=== PATIENT | female | born 1970 | race Caucasian/White ===

== ENCOUNTER 2018-03-02 23:51 | Emergency (ER) | payer MEDICARE ==
[2018-03-03] MEDS ORDERED: LORazepam 2 MG/ML VIAL ONE (01:26)
[2018-03-03] MEDS ORDERED: NA CHLORIDE 0.9% 1,000 ML ONE (01:26)
[2018-03-03 01:48] LABS: Absolute Lymphocytes (CBC) 2.4 K/uL (0.7-4.9); Absolute Monocytes 0.5 K/uL (0.1-1.3); Absolute Neutrophil 2.9 K/uL (1.8-8.0); Basophils % 0.8 % (0-1.3); Eosinophils % 1.9 % (0-4.4); Hematocrit 46.8 % (36.0-45.0); Lymphocytes % 39.5 % (15.3-44.8); MCH 30.3 pg (27.0-35.0); MCV 90.5 fL (80-100); MPV 8.5 fL (7.6-11.3); Monocytes % 8.6 % (3.3-12.3); RBC Red Blood Cell Count 5.17 M/uL (3.86-4.86)
[2018-03-03 01:52] LABS: Protime INR 0.99
[2018-03-03 01:56] LABS: Bicarbonate 27 mEq/L (21-31); Glucose Level 97 mg/dL (65-120); Potassium 3.7 mEq/L (3.6-5.0); Sodium Level 135 mEq/L (135-145)
[2018-03-03 02:02] LABS: ALT/SGPT 17 IU/L (10-60); AST/SGOT 20 IU/L (10-42); Albumin 4.9 g/dL (3.2-5.5); Alkaline Phosphatase 78 IU/L (42-121); BUN Blood Urea Nitrogen 13 mg/dL (6-20); Bilirubin Direct 0.1 mg/dL (0-0.2); Bilirubin Total 0.7 mg/dL (0.3-1.2); Protein, Total 8.9 g/dL (6.0-8.3)
[2018-03-03 02:35] LABS: Alcohol Serum/Plasma < 10 mg/dl
--- NOTE | 2018-03-03 02:49 | ER ---
Nurse's Notes [facility] Name: Sadia Mcpherson Age: 47 yrs Sex: Female : 1970 Arrival Date: 03/02/2018 Time: 23:52 Bed 4 Private MD: Lucille Tesfaye Diagnosis: Anxiety disorder, unspecified;Insomnia;Urinary tract infection, site not specified;Hypothyroidism, unspecified Presentation: 03/03 00:07 Presenting complaint: Patient states: "I've been feeling anxious lately and I can't tl2 sleep. They recently took me off of trazodone and switched me to amitriptyline but I've stopped taking most of my medications. I had blood work last week and my TSH is really high even though I've been taking my levothyroxine. Denies pain. Transition of care: patient was not received from another setting of care. Onset of symptoms was February 26, 2018. Risk Assessment: Do you want to hurt yourself or someone else? Patient reports no desire to harm self or others. Initial Sepsis Screen: Does the patient meet any 2 criteria? No. Patient's initial sepsis screen is negative. Does the patient have a suspected source of infection? No. Patient's initial sepsis screen is negative. Care prior to arrival: None. 00:07 Method Of Arrival: Ambulatory tl2 00:07 Acuity: JAYLEN 4 tl2 Triage Assessment: 00:13 General: Appears in no apparent distress. comfortable, Behavior is cooperative, tl2 appropriate for age, anxious. Pain: Denies pain. Neuro: Level of Consciousness is awake, alert, obeys commands, Oriented to person, place, time, situation. Cardiovascular: Denies chest pain. Respiratory: Airway is patent Respiratory effort is even, unlabored, Respiratory pattern is regular, symmetrical. GI: No signs and/or symptoms were reported involving the gastrointestinal system. : No signs and/or symptoms were reported regarding the genitourinary system. Derm: Skin is pink, warm \\T\\ dry. Historical: - Allergies: 00:13 GABAPENTIN; tl2 00:13 Lamictal; tl2 00:13 Sulfa (Sulfonamide Antibiotics); tl2 00:13 Tobramycin; tl2 00:13 Toradol; tl2 00:13 tramadol; tl2 00:13 Wellbutrin; tl2 - Home Meds: 00:13 aspirin 81 mg Oral chew 1 tab once daily [Active]; clonazepam 0.5 mg Oral tab 1 tab 2 tl2 times per day [Active]; Coreg 12.5 mg Oral tab 1 tab 2 times per day [Active]; levothyroxine 25 mcg tab 1 tab once daily [Active]; [place] 5-325 mg Oral tab 1 tab every 4-6 hours [Active]; Seroquel 200 mg Oral tab 1 tab once daily [Active]; Simvastatin Oral [Active]; - PMHx: 00:13 Depression; Hypertension; HYPERTHYROID; Hypothyroidism; Kidney stones; tl2 - Immunization history:: Adult Immunizations up to date. - Social history:: Smoking status: Patient/guardian denies using tobacco. - Ebola Screening: : No symptoms or risks identified at this time. - Family history:: not pertinent. Screenin:16 Abuse screen: Denies threats or abuse. Nutritional screening: No deficits noted. tl2 Tuberculosis screening: No symptoms or risk factors identified. Fall Risk None identified. Assessment: 00:16 General: see triage assessment. tl2 01:51 Reassessment: Patient appears in no apparent distress at this time. No changes from tl2 previously documented assessment. Patient and/or family updated on plan of care and expected duration. Pain level reassessed. Patient is alert, oriented x 3, equal unlabored respirations, skin warm/dry/pink. Awaiting lab results. 03:30 Reassessment: Patient appears in no apparent distress at this time. Patient is alert, aa1 oriented x 3, equal unlabored respirations, skin warm/dry/pink. Discussed d/c \\T\\ f/u instructions with pt \\T\\ family; denies questions or concerns at this time Patient states feeling better. Vital Signs: 00:13 BP 159 / 99; Pulse 76; Resp 18; Temp 97.8; Pulse Ox 99% ; Weight 68.04 kg; Height 5 ft. tl2 4 in. (162.56 cm); Pain 0/10; 01:51 BP 157 / 87; Pulse 74; Resp 18; Pulse Ox 100% on R/A; tl2 03:00 BP 145 / 89; Pulse 82; Resp 16; Pulse Ox 99% on R/A; Pain 0/10; aa1 00:13 Body Mass Index 25.75 (68.04 kg, 162.56 cm) tl2 ED Course: 03/02 23:52 Patient arrived in ED. am2 23:52 Lucille Tesfaye MD is Private Physician. am2 0523 00:06 Denisa Rutledge, SILVIA is Primary Nurse. tl2 00:09 Triage completed. tl2 00:13 Arm band placed on right wrist. tl2 00:16 Jayesh Agarwal MD is Attending Physician. zhang 00:16 Patient has correct armband on for positive identification. Bed in low position. Call tl2 light in reach. Side rails up X 1. Adult w/ patient. 01:51 Inserted saline lock: 20 gauge in left antecubital area, using aseptic technique. Blood mg2 collected. 01:58 Warm blanket given. mg2 02:49 Lucille Tesfaye MD is Referral Physician. [facility] 03:00 No provider procedures requiring assistance completed. IV discontinued, intact, aa1 bleeding controlled, No redness/swelling at site. Pressure dressing applied. Administered Medications: 01:51 Drug: NS 0.9% 1000 ml Route: IV; Rate: 1 bolus; Site: left antecubital; mg2 03:30 Follow up: IV Status: Completed infusion aa1 01:51 Drug: Ativan 1 mg Route: IVP; Site: left antecubital; mg2 03:30 Follow up: Response: No adverse reaction; Anxiety decreased aa1 03:15 Drug: Rocephin - (cefTRIAXone) 1 grams Route: IVPB; Infused Over: 30 mins; Site: left mg2 antecubital; 03:30 Follow up: IV Status: Completed infusion aa1 Outcome: 02:49 Discharge ordered by . zhang 03:00 Discharged to home ambulatory, with family. aa1 03:00 Condition: good 03:00 Discharge instructions given to patient, Instructed on discharge instructions, follow up and referral plans. medication usage, Demonstrated understanding of instructions, follow-up care, medications, Prescriptions given X 2. 03:31 Patient left the ED. aa1 Signatures: Ariella Feldman RN RN aa1 Jayesh Agarwal MD MD cha Knox, Taylor, SILVIA RN tl2 Aurora Alvarado am2 Mohit Morataya RN RN mg2
--- NOTE | 2018-03-03 02:50 | EDPHYS ---
Physician Documentation [facility] Name: Sadia Mcpherson Age: 47 yrs Sex: Female : 1970 Arrival Date: 03/02/2018 Time: 23:52 Bed 4 Private MD: Lucille Tesfaye ED Physician Jayesh Agarwal HPI: 03/03 01:18 This 47 yrs old Female presents to ER via Ambulatory with complaints of cant zhang sleep. 01:18 The patient presents to the emergency department with anxiety. Onset: The zhang symptoms/episode began/occurred 3 day(s) ago. Past psychiatric history: Prior diagnosis: no previous psychiatric diagnosis known. cant sleep, stopped Seroquel abruptly. Associated signs and symptoms: Pertinent positives; anxiety. Onset: The symptoms/episode began/occurred this morning, yesterday. Severity of symptoms: At their worst the symptoms were mild moderate in the emergency department the symptoms have improved mildly, moderately. Historical: - Allergies: 00:13 GABAPENTIN; tl2 00:13 Lamictal; tl2 00:13 Sulfa (Sulfonamide Antibiotics); tl2 00:13 Tobramycin; tl2 00:13 Toradol; tl2 00:13 tramadol; tl2 00:13 Wellbutrin; tl2 - Home Meds: 00:13 aspirin 81 mg Oral chew 1 tab once daily [Active]; clonazepam 0.5 mg Oral tab 1 tab 2 tl2 times per day [Active]; Coreg 12.5 mg Oral tab 1 tab 2 times per day [Active]; levothyroxine 25 mcg tab 1 tab once daily [Active]; [place] 5-325 mg Oral tab 1 tab every 4-6 hours [Active]; Seroquel 200 mg Oral tab 1 tab once daily [Active]; Simvastatin Oral [Active]; - PMHx: 00:13 Depression; Hypertension; HYPERTHYROID; Hypothyroidism; Kidney stones; tl2 - Immunization history:: Adult Immunizations up to date. - Social history:: Smoking status: Patient/guardian denies using tobacco. - Ebola Screening: : No symptoms or risks identified at this time. - Family history:: not pertinent. ROS: 01:18 Constitutional: Negative for fever, chills, and weight loss, Eyes: Negative for injury, zhang pain, redness, and discharge, ENT: Negative for injury, pain, and discharge, Neck: Negative for injury, pain, and swelling, Cardiovascular: Negative for chest pain, palpitations, and edema, Respiratory: Negative for shortness of breath, cough, wheezing, and pleuritic chest pain, Abdomen/GI: Negative for abdominal pain, nausea, vomiting, diarrhea, and constipation, Back: Negative for injury and pain, : Negative for injury, bleeding, discharge, and swelling, MS/Extremity: Negative for injury and deformity, Skin: Negative for injury, rash, and discoloration, Neuro: Negative for headache, weakness, numbness, tingling, and seizure, Allergy/Immunology: Negative for hives, rash, and allergies, Endocrine: Negative for neck swelling, polydipsia, polyuria, polyphagia, and marked weight changes, Hematologic/Lymphatic: Negative for swollen nodes, abnormal bleeding, and unusual bruising. 01:18 Psych: Positive for anxiety. Exam: 01:18 Constitutional: This is a well developed, well nourished patient who is awake, alert, zhang and in no acute distress. Head/Face: Normocephalic, atraumatic. Eyes: Pupils equal round and reactive to light, extra-ocular motions intact. Lids and lashes normal. Conjunctiva and sclera are non-icteric and not injected. Cornea within normal limits. Periorbital areas with no swelling, redness, or edema. ENT: Nares patent. No nasal discharge, no septal abnormalities noted. Tympanic membranes are normal and external auditory canals are clear. Oropharynx with no redness, swelling, or masses, exudates, or evidence of obstruction, uvula midline. Mucous membranes moist. Neck: Trachea midline, no thyromegaly or masses palpated, and no cervical lymphadenopathy. Supple, full range of motion without nuchal rigidity, or vertebral point tenderness. No Meningismus. Chest/axilla: Normal chest wall appearance and motion. Nontender with no deformity. No lesions are appreciated. Cardiovascular: Regular rate and rhythm with a normal S1 and S2. No gallops, murmurs, or rubs. Normal PMI, no JVD. No pulse deficits. Respiratory: Lungs have equal breath sounds bilaterally, clear to auscultation and percussion. No rales, rhonchi or wheezes noted. No increased work of breathing, no retractions or nasal flaring. Abdomen/GI: Soft, non-tender, with normal bowel sounds. No distension or tympany. No guarding or rebound. No evidence of tenderness throughout. Back: No spinal tenderness. No costovertebral tenderness. Full range of motion. Skin: Warm, dry with normal turgor. Normal color with no rashes, no lesions, and no evidence of cellulitis. MS/ Extremity: Pulses equal, no cyanosis. Neurovascular intact. Full, normal range of motion. Neuro: Awake and alert, GCS 15, oriented to person, place, time, and situation. Cranial nerves II-XII grossly intact. Motor strength 5/5 in all extremities. Sensory grossly intact. Cerebellar exam normal. Normal gait. Vital Signs: 00:13 BP 159 / 99; Pulse 76; Resp 18; Temp 97.8; Pulse Ox 99% ; Weight 68.04 kg; Height 5 ft. tl2 4 in. (162.56 cm); Pain 0/10; 01:51 BP 157 / 87; Pulse 74; Resp 18; Pulse Ox 100% on R/A; tl2 03:00 BP 145 / 89; Pulse 82; Resp 16; Pulse Ox 99% on R/A; Pain 0/10; aa1 00:13 Body Mass Index 25.75 (68.04 kg, 162.56 cm) tl2 MDM: 00:16 Patient medically screened. [facility] 02:48 Data reviewed: vital signs, nurses notes, lab test result(s), EKG. [facility] 03/03 01:18 Order name: Acetaminophen [facility] 03/03 01:18 Order name: Basic Metabolic Panel [facility] 03/03 01:18 Order name: CBC with Diff; Complete Time: 02:31 [facility] 03/03 01:18 Order name: ETOH Level [facility] 03/03 01:18 Order name: Hepatic Function [facility] 03/03 01:18 Order name: PT-INR; Complete Time: 02:31 [facility] 03/03 01:18 Order name: Ptt, Activated; Complete Time: 02:31 [facility] 03/03 01:18 Order name: Salicylate; Complete Time: 02:47 [facility] 03/03 01:18 Order name: Urine Drug Screen [facility] 03/03 01:18 Order name: TSH [facility] 03/03 01:18 Order name: Urine Culture [facility] 03/03 02:56 Order name: T4 Free [facility] 03/03 03:15 Order name: Urine Dipstick--Ancillary (enter results) [facility] 03/03 03:15 Order name: Urine --Ancillary (enter results) [facility] 03/03 01:18 Order name: Urine Test (obtain specimen); Complete Time: 03:20 [facility] 03/03 01:18 Order name: EKG; Complete Time: 01:19 [facility] 03/03 01:18 Order name: EKG - Nurse/Tech; Complete Time: 01:51 [facility] 03/03 01:18 Order name: IV Saline Lock; Complete Time: 01:46 [facility] 03/03 01:18 Order name: Labs collected and sent; Complete Time: 01:46 [facility] 03/03 01:18 Order name: Urine Dipstick-Ancillary (obtain specimen); Complete Time: 03:20 [facility] Administered Medications: 01:51 Drug: NS 0.9% 1000 ml Route: IV; Rate: 1 bolus; Site: left antecubital; mg2 03:30 Follow up: IV Status: Completed infusion aa1 01:51 Drug: Ativan 1 mg Route: IVP; Site: left antecubital; mg2 03:30 Follow up: Response: No adverse reaction; Anxiety decreased aa1 03:15 Drug: Rocephin - (cefTRIAXone) 1 grams Route: IVPB; Infused Over: 30 mins; Site: left mg2 antecubital; 03:30 Follow up: IV Status: Completed infusion aa1 Disposition: 03/03/18 02:49 Discharged to Home. Impression: Anxiety disorder, unspecified, Insomnia, Urinary tract infection, site not specified, Hypothyroidism, unspecified. - Condition is Stable. - Discharge Instructions: Panic Attacks, Insomnia, Urinary Tract Infection, Urinary Tract Infection, [id number], Panic Attacks, [id number]. - Prescriptions for Xanax 0.5 mg Oral Tablet - take 1 tablet by ORAL route every 8 hours As needed; 20 tablet. Cipro 250 mg Oral Tablet - take 1 tablet by ORAL route every 12 hours; 14 tablet. - Medication Reconciliation Form, Thank You Letter, Antibiotic Education, Prescription Opioid Use form. - Follow up: Lucille Tesfaye; When: 2 - 3 days; Reason: Recheck today's complaints, Continuance of care, Re-evaluation by your physician. - Problem is new. - Symptoms have improved. Signatures: Dispatcher [employer] EDAriella Rocha RN RN aa1 StefanoJayesh MD MD cha Knox, Taylor RN RN tl2 Mohit Morataya RN RN mg2 Corrections: (The following items were deleted from the chart) 03:05 02:49 03/03/2018 02:49 Discharged to Home. Impression: Anxiety disorder, unspecified; zhang Insomnia. Condition is Stable. Discharge Instructions: Panic Attacks, Panic Attacks, [id number], Insomnia. Prescriptions for Xanax 0.5 mg Oral Tablet - take 1 tablet by ORAL route every 8 hours As needed; 20 tablet. and Forms are Medication Reconciliation Form, Thank You Letter, Antibiotic Education, Prescription Opioid Use. Follow up: Lucille Tesfaye; When: 2 - 3 days; Reason: Recheck today's complaints, Continuance of care, Re-evaluation by your physician. Problem is new. Symptoms have improved. [facility] 03:16 03:05 03/03/2018 02:49 Discharged to Home. Impression: Anxiety disorder, unspecified; zhang Insomnia; Urinary tract infection, site not specified. Condition is Stable. Discharge Instructions: Panic Attacks, Panic Attacks, [id number], Insomnia. Prescriptions for Xanax 0.5 mg Oral Tablet - take 1 tablet by ORAL route every 8 hours As needed; 20 tablet. and Forms are Medication Reconciliation Form, Thank You Letter, Antibiotic Education, Prescription Opioid Use. Follow up: Lucille Tesfaye; When: 2 - 3 days; Reason: Recheck today's complaints, Continuance of care, Re-evaluation by your physician. Problem is new. Symptoms have improved. [facility] 03:31 03:16 03/03/2018 02:49 Discharged to Home. Impression: Anxiety disorder, unspecified; aa1 Insomnia; Urinary tract infection, site not specified; Hypothyroidism, unspecified. Condition is Stable. Discharge Instructions: Panic Attacks, Panic Attacks, [id number], Insomnia, Urinary Tract Infection, Urinary Tract Infection, [id number]. Prescriptions for Xanax 0.5 mg Oral Tablet - take 1 tablet by ORAL route every 8 hours As needed; 20 tablet, Cipro 250 mg Oral Tablet - take 1 tablet by ORAL route every 12 hours; 14 tablet. and Forms are Medication Reconciliation Form, Thank You Letter, Antibiotic Education, Prescription Opioid Use. Follow up: Lucille Tesfaye; When: 2 - 3 days; Reason: Recheck today's complaints, Continuance of care, Re-evaluation by your physician. Problem is new. Symptoms have improved. zhang
[2018-03-03] MEDS ORDERED: CEFTRIAXONE/SWI 1gm 1 GM/10 ML SYR ONE (03:13)
[2018-03-03 03:34] LABS: Barbiturates NEGATIVE; Benzodiazepines NEGATIVE; Cocaine NEGATIVE; METHAMPHETAM NEGATIVE (NEGATIVE); Opiates NEGATIVE; Phencyclidine NEGATIVE; THC Cannibis NEGATIVE
[2018-03-03 04:02] LABS: Urine Blood TRACE (NEG); Urine Glucose NEGATIVE (NEG); Urine Specific Gravity 1.015 (1.005-1.030)
[2018-03-03 04:03] LABS: Urine Protein NEGATIVE (NEG)
--- NOTE | 2018-03-03 10:48 | EKG ---
Test Date: 2018-03-03 Test Time: 01:44:00 Commercial Front Load Driver: MEASUREMENT RESULTS: Intervals: Rate: 75 KS: 144 QRSD: 92 QT: 416 QTc: 464 [place]: P: 68 KS: 144 QRS: 36 T: 58 INTERPRETIVE STATEMENTS: Normal sinus rhythm normal ECG no significant change from previous ECG Electronically Signed On 03-03-18 10:48:19 CDT by Virgil Mendieta
--- NOTE | 2018-03-03 10:48 | EKG ---
Test Date: 2018-03-03 Test Time: 01:46:00 Indian Trader: MEASUREMENT RESULTS: Intervals: Rate: 74 MA: 126 QRSD: 94 QT: 410 QTc: 455 [place]: P: 29 MA: 126 QRS: 35 T: 61 INTERPRETIVE STATEMENTS: Normal sinus rhythm Cannot rule out Anterior infarct, age undetermined Abnormal ECG Compared to ECG 03/03/2018 01:44:00 No significant changes Electronically Signed On 03-03-18 10:47:50 CDT by Virgil Mendieta
== END 2018-03-03 03:31 | disposition home or self-care (01) ==
LOC: ER 23:51
DX: G47.00 Insomnia, unspecified (principal); N39.0 Urinary tract infection, site not specified; E03.9 Hypothyroidism, unspecified; I10 Essential (primary) hypertension; F32.9 Major depressive disorder, single episode, unspecified; Z79.82 Long term (current) use of aspirin; Z88.2 Allergy status to sulfonamides; Z88.3 Allergy status to other anti-infective agents; Z88.5 Allergy status to narcotic agent; Z88.6 Allergy status to analgesic agent; Z88.8 Allergy status to other drugs, medicaments and biological substances
CPT/HCPCS: 36415; 80048; 80076; 80307 ×9; 80320; 80329 ×2; 81003; 81025; 84439; 84443; 85025; 85610; 85730; 87086; 87088; 93005 ×2; 96361; 96374; 96375; 99284; J0696; J7030

== ENCOUNTER 2019-09-19 16:54 | Emergency (ER) | payer MEDICARE ==
--- OUTSIDE RECORDS SUMMARY | 2019-09-19 16:56 | XMS REPORT | Summary of Care ---
:1970 Author Organization [facility] Address [address] [place] [id number] Care Team Providers Name Role Phone Esther Brar Primary Care Provider Reason for Visit Reason Comments Refill Request Encounter Details Date Type Department Care Team Description 05/07/2019 Refill [facility] Esther Brar PA Refill Request - [address] [id number] [place] [address] Allergies Active Allergy Reactions Severity Noted Date Comments Lamotrigine Rash High 04/21/2017 Alexandre Cowart Minocycline Rash 04/21/2017 Sulfa (Sulfonamide Antibiotics) Rash 04/21/2017 Bupropion Swelling 04/21/2017 documented as of this encounter (statuses as of 05/10/2019) Medications Medication Sig Dispensed Refills Start Date End Date Status IBUPROFEN ORAL Take by mouth. 0 Active estradiol 1 mg Take 1 mg by 0 Active tablet mouth daily. levothyroxine 75 mcg 0 09/30/2018 Active tablet progesterone 100 mg 0 10/14/2018 Active capsule QUEtiapine 200 mg 0 10/21/2018 Active tablet QUEtiapine 50 mg 0 10/21/2018 Active tablet traZODONE 50 mg 0 10/02/2018 Active tablet valACYclovir 500 mg 0 09/30/2018 Active tablet chlorhexidine (SCRUB Wash body with 960 mL 0 01/18/2019 Active CHLORHEXIDINE product daily GLUCONATE) 4 % external liquidIndications: Staph skin infection mupirocin 2 % Apply topically 22 g 1 01/18/2019 Active ointmentIndications: TID to affected Staph skin infection skin and to both nares BID x 5 days azithromycin 500 mg Take 2 tablets 4 tablet 0 03/02/2019 Active tabletIndications: by mouth Dysuria, Vaginal weekly. discharge, Abdominal pain, left lower quadrant CARVEDILOL 25 mg TAKE ONE TABLET 60 tablet 0 04/22/2019 Active tabletIndications: BY MOUTH TWICE Essential A DAY hypertension SIMVASTATIN 20 mg TAKE ONE TABLET 30 tablet 0 05/10/2019 Active tabletIndications: BY MOUTH AT Mixed hyperlipidemia BEDTIME simvastatin 20 mg Take 1 tablet 30 tablet 5 10/22/2018 Discontinued tabletIndications: by mouth at 9 Mixed hyperlipidemia bedtime. documented as of this encounter (statuses as of 05/10/2019) Active Problems Problem Noted Date Intramural leiomyoma of uterus 03/07/2019 Overview: 03/04/19 - pelvic US revealed a uterus measuring 8.7 x 4.7 x 5.5 cm, an ES of 3.4 mm and two small fibroids measuring less than 1.1 cm. Ovaries look normal in size and appearance. Cervical high risk human papillomavirus (HPV) DNA test positive 03/02/2019 Overview: 10/28/18 - pap smear normal; HPV 16 positive 12/02/18 - colposcopy normal. ECC benign. 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 documented as of this encounter Last Filed Vital Signs Not on filedocumented in this encounter Plan of Treatment Health Maintenance Due Date Last Done Comments DTaP,Tdap,and Td Vaccines (1 1989 - Tdap) MAMMOGRAM 2010 INFLUENZA VACCINE 2019 Postponed from 06/12/2019 (Patient Refused) PAP SMEAR 10/28/2019 10/28/2018, 04/21/2018 (Previously completed), 10/28/2017 (Previously completed) PNEUMOCOCCAL 0-64 YEARS Aged Out No longer eligible based COMBINED SERIES on patient's age to complete this topic documented as of this encounter Results Not on filedocumented in this encounter Visit Diagnoses Diagnosis Mixed hyperlipidemia documented in this encounter Insurance Payer Benefit Plan / Subscriber ID Effective Phone Address Type Group Dates [place] [employer] MEDICARE [id number] 2015-Prese Medicare Adv HEALTHCARE - COMPLETE nt HMO MANAGED MEDICARE documented as of this encounter
--- OUTSIDE RECORDS SUMMARY | 2019-09-19 16:56 | XMS REPORT ---
:1970 [facility] Address [address] [place] [address] Dr. Moralez [address] [place] [id number] Care Team Providers Name Role Phone Unavailable Unavailable Unavailable Problems This patient has no known problems. Allergies, Adverse Reactions, Alerts This patient has no known allergies or adverse reactions. Medications This patient has no known medications.
--- OUTSIDE RECORDS SUMMARY | 2019-09-19 16:56 | XMS REPORT | Summary of Care ---
:1970 Author Organization [facility] - [facility] Address [address] [place] [address] Care Team Providers Name Role Phone Esther Brar Primary Care Provider Encounter Details Date Type Department Care Team Description 05/24/2019 Orders Only [facility] Doctor Unassigned, No 301 [facility] Name [place] [id number] [address] [place] [phone] Allergies Active Allergy Reactions Severity Noted Date Comments Lamotrigine Rash High 04/21/2017 Alexandre Cowart Minocycline Rash 04/21/2017 Sulfa (Sulfonamide Antibiotics) Rash 04/21/2017 Bupropion Swelling 04/21/2017 documented as of this encounter (statuses as of 05/24/2019) Medications Medication Sig Dispensed Refills Start Date End Date Status IBUPROFEN ORAL Take by mouth. 0 Active estradiol 1 mg tablet Take 1 mg by 0 Active mouth daily. levothyroxine 75 mcg 0 09/30/2018 Active tablet progesterone 100 mg 0 10/14/2018 Active capsule QUEtiapine 200 mg 0 10/21/2018 Active tablet QUEtiapine 50 mg tablet 0 10/21/2018 Active traZODONE 50 mg tablet 0 10/02/2018 Active valACYclovir 500 mg 0 09/30/2018 Active tablet chlorhexidine (SCRUB Wash body with 960 mL 0 01/18/2019 Active CHLORHEXIDINE product daily GLUCONATE) 4 % external liquidIndications: Staph skin infection mupirocin 2 % Apply topically 22 g 1 01/18/2019 Active ointmentIndications: TID to affected Staph skin infection skin and to both nares BID x 5 days azithromycin 500 mg Take 2 tablets by 4 tablet 0 03/02/2019 Active tabletIndications: mouth weekly. Dysuria, Vaginal discharge, Abdominal pain, left lower quadrant CARVEDILOL 25 mg TAKE ONE TABLET 60 tablet 0 04/22/2019 Active tabletIndications: BY MOUTH TWICE A Essential hypertension DAY SIMVASTATIN 20 mg TAKE ONE TABLET 30 tablet 0 05/10/2019 Active tabletIndications: BY MOUTH AT Mixed hyperlipidemia BEDTIME documented as of this encounter (statuses as of 05/24/2019) Active Problems Problem Noted Date Intramural leiomyoma [...] as of this encounter (statuses as of 05/24/2019) Social History Tobacco Use Types Packs/Day Years [...] this topic documented as of this encounter Procedures Procedure Name Priority Date/Time Associated Diagnosis Comments ASSIGNMENT OF BENEFITS Routine 05/24/2019 1:02 PM CDT documented in this encounter Results Not on filedocumented in this encounter Insurance Payer Benefit Plan / Subscriber ID Effective Phone Address Type Group Dates [employer] MEDICARE [id number] 2015-Prese Medicare Adv HEALTHCARE - COMPLETE nt HMO MANAGED MEDICARE documented as of this encounter
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
--- OUTSIDE RECORDS SUMMARY | 2019-09-19 16:57 | XMS REPORT | Summary of Care ---
:1970 Author Organization [facility] Address [address] [place] [address] Care Team Providers Name Role Phone Esther Brar Primary Care Provider Reason for Referral (Routine) Status Reason Specialty Diagnoses / Referred By Referred To Procedures Contact Contact Closed Patient Endocrinology Diagnoses Hypothyroidism, unspecified type Karen Brar Sonia Requested Diabetes & Procedures CONSULT/REFERRAL ENDOCRINOLOGY KULWINDER Morel A Specific Metabolism [facility] [address] [place] [phone] [place], [place] Phone: [phone] Phone: Reason for Visit Reason Comments Referral/consult Encounter Details Date Type Department Care Team Description 06/09/2019 Telephone [facility] Family Esther Brar PA Referral/consult Medicine - [address] [place] [phone] Allergies Active Allergy Reactions Severity Noted Date Comments Lamotrigine Rash High 04/21/2017 Alexandre Supa Minocycline Rash 04/21/2017 Sulfa (Sulfonamide Antibiotics) Rash 04/21/2017 Bupropion Swelling 04/21/2017 documented as of this encounter (statuses as of 06/14/2019) Medications Medication Sig Dispensed Refills Start Date End Date Status IBUPROFEN ORAL Take by mouth. 0 Active estradiol 2 mg tablet Take 1 mg by 0 [...] BID x 5 days metFORMIN 500 mg tablet Take 500 mg by 0 Active mouth 2 (two) times daily with meals. simvastatin 20 mg Take 1 tablet by 30 tablet 5 05/24/2019 Active tabletIndications: mouth at bedtime. Mixed hyperlipidemia carvedilol 25 mg Take 1 tablet by 60 tablet 5 05/24/2019 Active tabletIndications: mouth 2 (two) Essential hypertension times daily. documented as of this encounter (statuses as of 06/14/2019) Active Problems Problem Noted Date Intramural leiomyoma [...] as of this encounter (statuses as of 06/14/2019) Social History Tobacco Use Types Packs/Day Years [...] Tdap) MAMMOGRAM 11/25/2018 11/25/2017, 11/12/2017 INFLUENZA VACCINE (#1) 2019 PAP SMEAR 10/28/2019 10/28/2018, 04/21/2018 (Previously completed), 10/28/2017 (Previously completed) PNEUMOCOCCAL 0-64 YEARS Aged Out No longer eligible based COMBINED SERIES on patient's age to complete this topic documented as of this encounter Results Not on filedocumented in this encounter Visit Diagnoses Diagnosis Hypothyroidism, unspecified type - Primary documented in this encounter Insurance Payer Benefit Plan / Subscriber ID Effective Phone Address Type Group Dates [facility] MEDICARE [id number] 2015-Prese Medicare Adv HEALTHCARE - COMPLETE nt [place] MANAGED MEDICARE documented as of this encounter
--- OUTSIDE RECORDS SUMMARY | 2019-09-19 16:57 | XMS REPORT | Summary of Care ---
:1970 Author Organization [facility] - [facility] Address [address] [place] [address] Care Team Providers Name Role Phone Esther Brar Primary Care Provider Encounter Details Date Type Department Care Team Description 06/10/2019 Orders Only [facility] Doctor Unassigned, No 301 [facility] Name [place] [phone] [place] [phone] Allergies Active Allergy Reactions Severity Noted Date [...] Procedure Name Priority Date/Time Associated Diagnosis Comments REFERRAL- Routine 06/10/2019 12:01 AM CDT REQUEST/RESPONSE documented in this encounter Results Not on filedocumented in this encounter Insurance Payer Benefit Plan / Subscriber ID Effective Phone Address Type Group Dates [employer] MEDICARE [id number] 2015-Prese Medicare Adv HEALTHCARE - COMPLETE nt HMO MANAGED MEDICARE documented as of this encounter
--- OUTSIDE RECORDS SUMMARY | 2019-09-19 16:57 | XMS REPORT | Summary of Care ---
:1970 Author Organization [facility] Address [address] [place] [address] Care Team Providers Name Role Phone Esther Brar Primary Care Provider Reason for Visit Reason Comments Results Encounter Details Date Type Department Care Team Description 05/27/2019 Telephone [facility] Family Medicine Esther Brar PA Results - [address] [address] [place] [address] Allergies Active Allergy Reactions Severity Noted Date Comments Lamotrigine Rash High 04/21/2017 Alexandre Cowart Minocycline Rash 04/21/2017 Sulfa (Sulfonamide Antibiotics) Rash 04/21/2017 Bupropion Swelling 04/21/2017 documented as of this encounter (statuses as of 05/27/2019) Medications Medication Sig Dispensed Refills Start Date [...] as of this encounter (statuses as of 05/27/2019) Active Problems Problem Noted Date Intramural leiomyoma [...] as of this encounter (statuses as of 05/27/2019) Social History Tobacco Use Types Packs/Day Years [...] Address Type Group Dates [employer] MEDICARE [id number] 2015-Prese Medicare Adv HEALTHCARE - COMPLETE nt HMO MANAGED MEDICARE documented as of this encounter
--- OUTSIDE RECORDS SUMMARY | 2019-09-19 16:57 | XMS REPORT | Summary of Care ---
:1970 Author Organization [facility] Address [address] [place] [address] Care Team Providers Name Role Phone Esther Brar Primary Care Provider Reason for Referral (Routine) Status Reason Specialty Diagnoses / Referred By Referred To Procedures Contact Contact New Request Endocrinology Diagnoses Hypothyroidism, unspecified type Esther Brar Diabetes & Procedures CONSULT/REFERRAL ENDOCRINOLOGY KULWINDER Nielsen [address] [address] Reason for Visit Reason Comments Referral/consult Encounter Details Date Type Department Care Team Description 06/09/2019 Telephone [facility] Family Esther Brar PA Referral/consult Medicine - [address] [phone] Allergies Active Allergy Reactions Severity Noted Date Comments Lamotrigine Rash High 04/21/2017 Alexandre Supa Minocycline Rash 04/21/2017 Sulfa (Sulfonamide Antibiotics) Rash 04/21/2017 Bupropion Swelling 04/21/2017 documented as of this encounter (statuses as of 06/10/2019) Medications Medication Sig Dispensed Refills Start Date [...] as of this encounter (statuses as of 06/10/2019) Active Problems Problem Noted Date Intramural leiomyoma [...] as of this encounter (statuses as of 06/10/2019) Social History Tobacco Use Types Packs/Day Years [...] ID Effective Phone Address Type Group Dates [facility] MEDICARE [id number] 2015-Prese Medicare Adv HEALTHCARE - COMPLETE nt [facility] MANAGED MEDICARE documented as of this encounter
--- NOTE | 2019-09-19 18:16 | ER ---
Nurse's Notes [facility] Name: Sadia Mcpherson Age: 49 yrs Sex: Female : 1970 Arrival Date: 09/19/2019 Time: 16:56 Bed 7 Private MD: Diagnosis: Dental caries-pain Presentation: 09/19 16:59 Presenting complaint: Patient states: "I have a really bad toothache on the upper left aj1 side and its kind of been hurting for the past 3 or 4 days and I thought it was from sinus stuff but all the sudden my tooth felt like it was going to explode" Reports pain to left jaw. Transition of care: patient was not received from another setting of care. Onset of symptoms was 2018. Risk Assessment: Do you want to hurt yourself or someone else? Patient reports no desire to harm self or others. Initial Sepsis Screen: Does the patient meet any 2 criteria? No. Patient's initial sepsis screen is negative. Does the patient have a suspected source of infection? Yes: Other: possible infected tooth. Care prior to arrival: None. 16:59 Method Of Arrival: Ambulatory [facility] 16:59 Acuity: JAYLEN 4 aj1 Triage Assessment: 17:02 General: Appears in no apparent distress. uncomfortable, Behavior is calm, cooperative, aj1 appropriate for age. Pain: Complains of pain in left jaw Pain currently is 8 out of 10 on a pain scale. EENT: Reports pain in left jaw. Neuro: Level of Consciousness is awake, alert, obeys commands. Cardiovascular: Patient's skin is warm and dry. Respiratory: Airway is patent Respiratory effort is even, unlabored, Respiratory pattern is regular, symmetrical. 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 aj1 Historical: - Allergies: 17:02 GABAPENTIN; aj1 17:02 Lamictal; aj1 17:02 Sulfa (Sulfonamide Antibiotics); aj1 17:02 Tobramycin; aj1 17:02 Toradol; aj1 17:02 tramadol; aj1 17:02 Wellbutrin; aj1 - Home Meds: 17:02 aspirin 81 mg Oral chew 1 tab once daily [Active]; clonazepam 0.25 mg oral TbDL daily aj1 [Active]; Coreg 12.5 mg Oral tab 1 tab 2 times per day [Active]; levothyroxine 75 mcg oral tab 1 tab once daily [Active]; Seroquel 200 mg Oral tab 1 tab once daily [Active]; Simvastatin Oral [Active]; estradiol 2 mg Oral tab 1 tab once daily [Active]; progesterone micronized oral oral [Active]; - PMHx: 17:02 Depression; Hypertension; HYPERTHYROID; Hypothyroidism; Kidney stones; aj1 - Immunization history:: Flu vaccine is not up to date. - Social history:: Smoking status: Patient/guardian denies using tobacco. - Ebola Screening: : Patient denies travel to an Ebola-affected area in the 21 days before illness onset. - Family history:: not pertinent. Screenin:41 Abuse screen: Denies threats or abuse. Denies injuries from another. Nutritional hb screening: No deficits noted. Tuberculosis screening: No symptoms or risk factors identified. Fall Risk None identified. Assessment: 17:40 General: Appears in no apparent distress. Behavior is calm, cooperative. Pain: Pain hb currently is 8 out of 10 on a pain scale. Neuro: Level of Consciousness is awake, alert, obeys commands, Oriented to person, place, time, situation. Cardiovascular: Capillary refill < 3 seconds Patient's skin is warm and dry. Respiratory: Airway is patent Respiratory effort is even, unlabored, Respiratory pattern is regular, symmetrical. GI: No signs and/or symptoms were reported involving the gastrointestinal system. : No signs and/or symptoms were reported regarding the genitourinary system. EENT: Reports left upper molar pain. Derm: Skin is pink, warm \\T\\ dry. Musculoskeletal: No signs and/or symptoms reported regarding the musculoskeletal system. Vital Signs: 17:02 BP 155 / 96; Pulse 82; Resp 18; Temp 97.9; Pulse Ox 99% on R/A; Weight 90.72 kg (R); aj1 Height 5 ft. 4 in. (162.56 cm) (R); Pain 8/10; 17:02 Body Mass Index 34.33 (90.72 kg, 162.56 cm) aj1 ED Course: 16:56 Patient arrived in ED. as 17:00 Triage completed. aj1 17:02 Arm band placed on Patient placed in waiting room. aj1 17:12 Eric Diego RN is Primary Nurse. jl7 17:12 Jayesh Agarwal MD is Attending Physician. [facility] 17:41 Patient has correct armband on for positive identification. Bed in low position. Call light in reach. Side rails up X 1. 18:11 Irvin Lee DDS is Referral Physician. [facility] 18:44 No provider procedures requiring assistance completed. Patient did not have IV access jl7 during this emergency room visit. Administered Medications: 18:44 Drug: [place] 10 mg-325 mg 1 tabs Route: PO; jl7 18:45 Follow up: Response: Medication administered at discharge. jl7 18:45 Drug: Augmentin 875 mg Route: PO; jl7 18:45 Follow up: Response: Medication administered at discharge. jl7 Outcome: 18:15 Discharge ordered by MD. [facility] 18:44 Discharged to home ambulatory. jl7 18:44 Condition: stable 18:44 Discharge instructions given to patient, family, Instructed on discharge instructions, follow up and referral plans. medication usage, Demonstrated understanding of instructions, follow-up care, medications, Prescriptions given X 2. 18:45 Patient left the ED. jl7 Signatures: Maria Ines Cowart RN RN aj1 Jayesh Agarwal MD MD cha Martinez, Amelia as Calli Lemus RN RN hb Leal, Jahala, RN RN jl7 Corrections: (The following items were deleted from the chart) 18:47 08:43 No provider procedures requiring assistance completed. jl7 jl7 18:47 08:43 Patient did not have IV access during this emergency room visit. jl7 jl7
--- NOTE | 2019-09-19 18:16 | EDPHYS ---
Physician Documentation [facility] Name: Sadia Mcpherson Age: 49 yrs Sex: Female : 1970 Arrival Date: 09/19/2019 Time: 16:56 Bed 7 Private MD: MP Physician Jayesh Agarwal HPI: 09/19 18:07 This 49 yrs old Female presents to ER via Ambulatory with complaints of zhang Toothache. 18:07 The patient presents with pain, swelling. The problem is located in the left cheek and zhang left jaw. Onset: The symptoms/episode began/occurred 3 day(s) ago. Duration: The symptoms are continuous, and are steadily getting worse. Modifying factors: The symptoms are alleviated by nothing, the symptoms are aggravated by chewing. Associated signs and symptoms: The patient has no apparent associated signs or symptoms. Severity of symptoms: At their worst the symptoms were mild. The patient has not experienced similar symptoms in the past. 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 aj1 Historical: - Allergies: 17:02 GABAPENTIN; aj1 17:02 Lamictal; aj1 17:02 Sulfa (Sulfonamide Antibiotics); aj1 17:02 Tobramycin; aj1 17:02 Toradol; aj1 17:02 tramadol; aj1 17:02 Wellbutrin; aj1 - Home Meds: 17:02 aspirin 81 mg Oral chew 1 tab once daily [Active]; clonazepam 0.25 mg oral TbDL daily aj1 [Active]; Coreg 12.5 mg Oral tab 1 tab 2 times per day [Active]; levothyroxine 75 mcg oral tab 1 tab once daily [Active]; Seroquel 200 mg Oral tab 1 tab once daily [Active]; Simvastatin Oral [Active]; estradiol 2 mg Oral tab 1 tab once daily [Active]; progesterone micronized oral oral [Active]; - PMHx: 17:02 Depression; Hypertension; HYPERTHYROID; Hypothyroidism; Kidney stones; aj1 - Immunization history:: Flu vaccine is not up to date. - Social history:: Smoking status: Patient/guardian denies using tobacco. - Ebola Screening: : Patient denies travel to an Ebola-affected area in the 21 days before illness onset. - Family history:: not pertinent. ROS: 18:07 Constitutional: Negative for fever, chills, and weight loss, Eyes: Negative for injury, zhang pain, redness, and discharge, Neck: Negative for injury, pain, and swelling, Cardiovascular: Negative for chest pain, palpitations, and edema, Respiratory: Negative for shortness of breath, cough, wheezing, and pleuritic chest pain, Abdomen/GI: Negative for abdominal pain, nausea, vomiting, diarrhea, and constipation, Back: Negative for injury and pain, : Negative for injury, bleeding, discharge, and swelling, MS/Extremity: Negative for injury and deformity, Skin: Negative for injury, rash, and discoloration, Neuro: Negative for headache, weakness, numbness, tingling, and seizure, Psych: Negative for depression, anxiety, suicide ideation, homicidal ideation, and hallucinations, Allergy/Immunology: Negative for hives, rash, and allergies, Endocrine: Negative for neck swelling, polydipsia, polyuria, polyphagia, and marked weight changes, Hematologic/Lymphatic: Negative for swollen nodes, abnormal bleeding, and unusual bruising. 18:07 ENT: Negative for Gum pain Exam: 18:07 Constitutional: This is a well developed, well nourished patient who is awake, alert, zhang and in no acute distress. Head/Face: Normocephalic, atraumatic. Eyes: Pupils equal round and reactive to light, extra-ocular motions intact. Lids and lashes normal. Conjunctiva and sclera are non-icteric and not injected. Cornea within normal limits. Periorbital areas with no swelling, redness, or edema. Neck: Trachea midline, no thyromegaly or masses palpated, and no cervical lymphadenopathy. Supple, full range of motion without nuchal rigidity, or vertebral point tenderness. No Meningismus. Chest/axilla: Normal chest wall appearance and motion. Nontender with no deformity. No lesions are appreciated. Cardiovascular: Regular rate and rhythm with a normal S1 and S2. No gallops, murmurs, or rubs. Normal PMI, no JVD. No pulse deficits. Respiratory: Lungs have equal breath sounds bilaterally, clear to auscultation and percussion. No rales, rhonchi or wheezes noted. No increased work of breathing, no retractions or nasal flaring. Abdomen/GI: Soft, non-tender, with normal bowel sounds. No distension or tympany. No guarding or rebound. No evidence of tenderness throughout. Back: No spinal tenderness. No costovertebral tenderness. Full range of motion. Skin: Warm, dry with normal turgor. Normal color with no rashes, no lesions, and no evidence of cellulitis. MS/ Extremity: Pulses equal, no cyanosis. Neurovascular intact. Full, normal range of motion. Neuro: Awake and alert, GCS 15, oriented to person, place, time, and situation. Cranial nerves II-XII grossly intact. Motor strength 5/5 in all extremities. Sensory grossly intact. Cerebellar exam normal. Normal gait. Psych: Awake, alert, with orientation to person, place and time. Behavior, mood, and affect are within normal limits. 18:07 ENT: Dental exam: dental caries, fractured teeth are noted, gum swelling, that is mild. Vital Signs: 17:02 BP 155 / 96; Pulse 82; Resp 18; Temp 97.9; Pulse Ox 99% on R/A; Weight 90.72 kg (R); aj1 Height 5 ft. 4 in. (162.56 cm) (R); Pain 8/10; 17:02 Body Mass Index 34.33 (90.72 kg, 162.56 cm) aj1 MDM: 17:12 Patient medically screened. [facility] 18:09 Data reviewed: vital signs, nurses notes. [facility] Administered Medications: 18:44 Drug: [place] 10 mg-325 mg 1 tabs Route: PO; [facility] 18:45 Follow up: Response: Medication administered at discharge. [facility] 18:45 Drug: Augmentin 875 mg Route: PO; [facility] 18:45 Follow up: Response: Medication administered at discharge. [facility] Disposition: 09/19/19 18:15 Discharged to Home. Impression: Dental caries - pain. - Condition is Stable. - Discharge Instructions: Dental Pain, Dental Pain, [id number]. - Prescriptions for Augmentin 875- 125 mg Oral Tablet - take 1 tablet by ORAL route every 12 hours for 10 days; 20 tablet. Tylenol- Codeine #3 300-30 mg Oral Tablet - take 2 tablets by ORAL route every 6 hours As needed; 26 tablet. - Medication Reconciliation Form, Thank You Letter, Antibiotic Education, Prescription Opioid Use form. - Follow up: Private Physician; When: 2 - 3 days; Reason: Recheck today's complaints, Continuance of care, Re-evaluation by your physician. Follow up: Irvin Lee DDS; When: 1 - 2 days; Reason: Recheck today's complaints, Continuance of care, Re-evaluation by your physician. - Problem is new. - Symptoms have improved. Signatures: Maria Ines Cowart, RN RN aj1 Jayesh Agarwal MD MD cha Leal, Jahala, RN RN jl7 Corrections: (The following items were deleted from the chart) 18:45 18:15 09/19/2019 18:15 Discharged to Home. Impression: Dental caries - pain. Condition jl7 is Stable. Forms are Medication Reconciliation Form, Thank You Letter, Antibiotic Education, Prescription Opioid Use. Follow up: Private Physician; When: 2 - 3 days; Reason: Recheck today's complaints, Continuance of care, Re-evaluation by your physician. Follow up: Irvin Lee; When: 1 - 2 days; Reason: Recheck today's complaints, Continuance of care, Re-evaluation by your physician. Problem is new. Symptoms have improved. zhang
[2019-09-19] MEDS ORDERED: HYDROCODONE/APAP 10/325 TAB ONE (18:43)
[2019-09-19] MEDS ORDERED: AMOX/K CLAV 875 MG TAB ONE (18:43)
[2019-09-19 19:18] VITALS: BP 155/96; TEMP 97.9; O2SAT 99
== END 2019-09-19 18:45 | disposition home or self-care (01) ==
LOC: ER 16:54
DX: K02.9 Dental caries, unspecified (principal); Z88.2 Allergy status to sulfonamides; Z88.8 Allergy status to other drugs, medicaments and biological substances; Z88.6 Allergy status to analgesic agent; E03.9 Hypothyroidism, unspecified; F32.9 Major depressive disorder, single episode, unspecified; I10 Essential (primary) hypertension
CPT/HCPCS: 99283

== ENCOUNTER 2020-03-03 12:43 | Emergency (ER) | payer MEDICARE ==
--- OUTSIDE RECORDS SUMMARY | 2020-03-03 12:45 | XMS REPORT ---
:1970 Author Organization [facility] t Address [address] [place] [address] Care Team Providers Name Role Phone [place] EID Attending Clinician Tata ACEVES Attending Clinician Josh Valadez MD Attending Clinician Morales Quintero MD Attending Clinician Problems This patient has no known problems. Allergies, Adverse Reactions, Alerts This patient has no known allergies or adverse reactions. Medications This patient has no known medications. Procedures This patient has no known procedures. Encounters Start End Encounter Admission Attending Care Care Encounter Source Date/Time Date/Time Type Type Clinicians Facility Department ID 2020-02-02 2020-02-02 Telemedici Kingston [facility] [id number] 08:12:15 15:32:51 ne Visit Margie Cheek [id number] [place] [id number] [place] [id number] [address] 2020-01-30 2020-01-30 Telemedici Tata [place] [id number] 08:40:27 14:57:35 ne Visit Yessica Cheek [id number] [place] [id number] [place] [id number] [address] 2020-01-20 2020-01-20 Telephone Nara Valadez [facility] [id number] 00:00:00 00:00:00 [place] [id number] [place] [id number] Professio [id number] [address] 2020-01-18 2020-01-18 Telephone Nara Valadez [facility] [id number] 00:00:00 00:00:00 [place] [id number] [place] [id number] Professio [phone] [address] 2020-01-18 2020-01-18 Refill Nara Valadez [facility] [id number] 00:00:00 00:00:00 [place] [id number] [place] [id number] Professio [id number] [address] 2020-01-17 2020-01-17 Orders LINDA [place] [id number] 00:00:00 00:00:00 Only Yessica MILENA [id number] [facility] [id number] [facility] 2020-01-16 2020-01-16 Telemedici Tata [facility] [id number] 14:56:15 15:11:15 ne Visit Yessica Adia [id number] [place] [id number] [facility] [phone] [address] 2020-01-16 2020-01-16 [facility] [id number] 00:00:00 00:00:00 Pilar Cheek [id number] [place] [id number] [place] [phone] [address] Results This patient has no known results.
--- OUTSIDE RECORDS SUMMARY | 2020-03-03 12:46 | XMS REPORT | Summary of Care ---
:1970 Author Organization [facility] Address [address] [place] [address] Care Team Providers Name Role Phone Morales Brar Primary Care Provider Encounter Details Date Type Department Care Team Description 12/01/2019 Orders Only [facility] Doctor Unassigned, No 301 [facility] Name [place] [phone] [facility] [place] [phone] Allergies Active Allergy Reactions Severity Noted Date Comments Lamotrigine Rash High 04/21/2017 Alexandre Supa Minocycline Rash 04/21/2017 Sulfa (Sulfonamide Antibiotics) Rash 7 Bupropion Swelling 04/21/2017 documented as of this encounter (statuses as of 12/06/2019) Medications Medication Sig Dispensed Refills Start Date End Date Status IBUPROFEN ORAL Take by mouth. 0 Active estradiol 2 mg tablet Take 1 mg by 0 Active mouth daily. progesterone 100 mg 0 10/14/2018 Active capsule QUEtiapine 300 mg 0 10/21/2018 A ctive tablet QUEtiapine 50 mg 0 10/21/2018 Ac tive tablet traZODONE 50 mg tablet 0 10/02/2018 Active [...] 500 mg by 0 Active tablet mouth daily before a meal. Levothyroxine 88 mcg Take by mouth. 0 Active capsule carvediloL 25 mg Take 1 tablet by 180 tablet 1 11/30/2019 Active tabletIndications: mouth 2 (two) Essential hypertension times daily. simvastatin 20 mg Take 1 tablet by 90 tablet 1 11/30/2019 Active tabletIndications: mouth at bedtime. Mixed hyperlipidemia miSOPROStol 200 mcg Take one tablet 2 tablet 0 12/01/2019 Active tabletIndications: night before Menorrhagia with procedure, then irregular cycle take one tablet morning of procedure documented as of this encounter (statuses as of 12/06/2019) Active Problems Problem Noted Date Intramural leiomyoma of uterus 03/07/2019 Overview: 03/04/19 - pelvic US revealed a uterus me asuring 8.7 x 4.7 x 5.5 cm, an ES of 3.4 mm and two small fibroids measuring less th an 1.1 cm. Ovaries look normal in size and appearance. Cervical high risk human papillomavirus (HPV) DNA test positive 03/02/2019 Overview: 10/28/18 - pap smear normal; HPV 16 positive 12/02/18 - colposcopy normal. ECC benign. 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 [place], [place] [address] [phone] Health Maintenance Due Date Last Done Comments DTaP,Tdap,and Td Vaccines 12/21/2019 Postpo donita from (1 - Tdap) 1981 (Refu sed) Breast Cancer Screening 05/12/2020 05/12/2019, 11/25/2017, (MAMMOGRAM) 11/12/2017 PAP SMEAR 11/12/2020 11/12/2019, 10/28/2018, 04/21/2018 (Previously completed), Additional history exists INFLUENZA VACCINE (#1) 2020 Postponed from 06/12/2019 (Refu sed) PNEUMOCOCCAL 0-64 YEARS Aged Out No longe r eligible COMBINED SERIES based on patient 's age to complete this topic documented as of this encounter Procedures Procedure Name Priority Date/Time Associated Diagnosis Comme nts AGREEMENTS AUTHORIZATIONS Routine 12/01/2019 12:01 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
--- OUTSIDE RECORDS SUMMARY | 2020-03-03 12:46 | XMS REPORT | Summary of Care ---
:1970 Author Organization [facility] Address [address] [place] [address] Care Team Providers Name Role Phone Morales Brar Primary Care Provider Reason for Visit Reason Comments Results Encounter Details Date Type Department Care Team Description 12/06/2019 Telephone [facility] Family Medicine Esther Dior PA Results - [place] [address] [address] [facility] [address] [place] [address] [place] [address] [phone] Allergies Active Allergy Reactions Severity Noted Date [...] 12/08/2019 Office Visit Obstetrics & Gynecology Josy Valdaez MD [address] [place] [address] [address] [place] [address] [phone] Health Maintenance Due Date Last Done Comments [...] Phone Address T ype Group Dates [facility] [id number] 2019-Yessi rodgers [facility] documented as of this encounter
--- OUTSIDE RECORDS SUMMARY | 2020-03-03 12:46 | XMS REPORT | Summary of Care ---
:1970 Author Organization [facility] Address [address] [place] [address] Care Team Providers Name Role Phone Morales Brar Primary Care Provider Reason for Visit Reason Comments Refill Request Encounter Details Date Type Department Care Team Description 11/26/2019 Refill [facility] Family Medicine Esther Dior PA Refill Request - [address] [place] [address] [place] [address] [phone] Allergies Active Allergy Reactions Severity Noted Date Comments Lamotrigine Rash High 04/21/2017 Alexandre Cowart Minocycline Rash 04/21/2017 Sulfa (Sulfonamide Antibiotics) Rash 7 Bupropion Swelling 04/21/2017 documented as of this encounter (statuses as of 12/05/2019) Medications Medication Sig Dispensed Refills Start Date End Date Status IBUPROFEN ORAL Take by mouth. 0 Active estradiol 2 mg tablet Take 1 mg by mouth 0 Active daily. progesterone 100 mg 0 10/14/2018 Active [...] Active tablet mouth daily before a meal. documented as of this encounter (statuses as of 12/05/2019) Active Problems Problem Noted Date Intramural leiomyoma [...] as of this encounter (statuses as of 12/05/2019) Social History Tobacco Use Types Packs/Day Years [...] Visit Obstetrics & Gynecology Josy Valadez MD [address] [place] [address] [address] [place] [address] [phone] Health Maintenance Due Date Last Done Comments [...] filedocumented in this encounter Visit Diagnoses Diagnosis Essential hypertension Unspecified essential hypertension documented in this encounter Insurance Payer Benefit Plan / Subscriber ID Effective Phone Address T e Group Dates [facility] [id number] 2019-Yessi rodgers [facility] - MEDICARE nt HMO MANAGED MEDICARE ADVANTAGE documented as of this encounter
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
--- OUTSIDE RECORDS SUMMARY | 2020-03-03 12:47 | XMS REPORT | Summary of Care ---
:1970 Author Organization [facility] Address [address] [place] [address] Care Team Providers Name Role Phone Morales Brar Primary Care Provider Reason for Visit Reason Comments Procedure EMBX Encounter Details Date Type Department Care Team Description 12/08/2019 Office Visit [facility] Women's Nara Valadez MD Menorrhagia with Healthcare- [address] irregular cycle [address] [place], [place] [address]DR. (Primary Dx) [address] [place], [place] [phone] Allergies Active Allergy Reactions Severity Noted Date Comments Lamotrigine Rash High 04/21/2017 Alexandre Cowart Minocycline Rash 04/21/2017 Sulfa (Sulfonamide Antibiotics) Rash 7 Bupropion Swelling 04/21/2017 documented as of this encounter (statuses as of 12/09/2019) Medications Medication Sig Dispensed Refills Start End [...] as of this encounter (statuses as of 12/09/2019) Active Problems Problem Noted Date Menorrhagia with irregular cycle 12/09/2019 Obesity (BMI 30-39.9) 12/08/2019 Intramural leiomyoma of uterus 03/07/2019 Overview: 03/04/19 [...] as of this encounter (statuses as of 12/09/2019) Social History Tobacco Use Types Packs/Day Years [...] Sign Reading Time Taken Comments Blood Pressure 120/77 12/08/2019 1:35 PM EDISCOVERY 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 Pulse 74 12/08/2019 1:35 PM EDISCOVERY PROJECT MANAGER Temperature 36.7 C (98.1 F) 12/08/2019 1:35 PM EDISCOVERY PROJECT MANAGER Respiratory Rate 20 12/08/2019 1:30 PM EDISCOVERY PROJECT MANAGER Oxygen Saturation - - Inhaled Oxygen Concentration - - Weight 98.4 kg (217 lb) 12/08/2019 1:30 PM EDISCOVERY PROJECT MANAGER Height 160 cm (5' 3") 12/08/2019 1:30 PM EDISCOVERY PROJECT MANAGER Body Mass Index 38.44 12/08/2019 1:30 PM EDISCOVERY PROJECT MANAGER documented in this encounter Progress Notes Nara Valadez MD - 12/08/2019 1:00 PM CSTENDOMETRIAL BIOPSY PROCEDURE NOTE Preoperative Diagnoses: Sadia Mcpherson is a 49 year old female with heavy irregular menses The risks, benefits and alternatives were discussed. The patient voiced her understanding. She wished to proceed and an informed consent was obtained. Patient has been identified by name and and will be undergoing a endometrial biopsy. Patient, procedure and site have been confirmed by the following clinicians: Nara Valadez. Timeout performed by Nara Valadez Procedure:The patient is placed on the exam table in a dorsal lithotomy position. A speculum placed in vagina with good visualization of cervix; cervix swabbed with Betadine solution. Single tooth tenaculum placed on the anterior lip of the cervix. Endometrial sampling achieved with Pipelle samplingunit with 1 pass. Tissue collected, labeled and sent to Pathology. Instruments removed, hemostasis achieved. The patient tolerated the procedure well and there were no complications. Findings Uterus sounded to 8 cm Tissue amount collected: normal Nara Valadez MD #[id number] 12/09/2019 12:08 PM documented in this encounter Plan of Treatment Date Type Specialty Care Team Description 12/14/2019 Office Visit Obstetrics & Gynecology Yessica Payton PA-C [address] [phone] 12/14/2019 Appointment Radiology Yessica Payton PA-C [address], [place] [phone] Name Type Priority Associated Diagnoses Date/Ti me SURGICAL PATHOLOGY EXAM LAB Routine Menorrhagia with 12/08/2019 1:53 PM EDISCOVERY PROJECT MANAGER irregular cycle Name Type Priority Associated Diagnoses Order S chedule SURGICAL PATHOLOGY EXAM LAB Routine Menorrhagia with Expected: 12/08/2019, irregular cycle Expires: Health Maintenance Due Date Last Done Comments [...] Name Priority Date/Time Associated Diagnosis Comme nts POCT TEST Routine 12/08/2019 Menorrhagia with Resu lts for this irregular cycle procedure ar e in the results section . documented in this encounter Results POCT TEST (12/08/2019) Pathologist Sig nature POCT PREG Negative On board controls acceptable Yes with C Line POCT PREG LOT # POCT PREG TEST DATE Specimen Urine - URINE, CLEAN CATCH documented in this encounter Visit Diagnoses Diagnosis Menorrhagia with irregular cycle - Prima ry Excessive or frequent menstruation documented in this encounter Insurance Payer Benefit Plan / Subscriber ID Effective Phone Address T ype Group Dates [facility] [id number] 2019-Prese dicare [facility] HEALTHCARE - MEDICARE nt HMO MANAGED MEDICARE ADVANTAGE documented as of this encounter
--- OUTSIDE RECORDS SUMMARY | 2020-03-03 12:47 | XMS REPORT | Summary of Care ---
:1970 Author Organization [facility] Address [address] [place] [address] Care Team Providers Name Role Phone Morales Brar Primary Care Provider Reason for Visit Reason Comments Procedure EMBX Encounter Details Date Type Department Care Team Description 12/08/2019 Office Visit [facility] Women's Nara Valadez MD Menorrhagia with Healthcare- [address] irregular cycle [address] [place], [place] [address] (Primary Dx) [address] [place], [place] [phone] Allergies Active Allergy Reactions Severity Noted Date [...] Comments Blood Pressure 120/77 12/08/2019 1:35 PM ACTUARIAL MATHEMATICIAN Pulse 74 12/08/2019 1:35 PM ACTUARIAL MATHEMATICIAN Temperature 36.7 C (98.1 F) 12/08/2019 1:35 PM ACTUARIAL MATHEMATICIAN Respiratory Rate 20 12/08/2019 1:30 PM ACTUARIAL MATHEMATICIAN Oxygen Saturation - - Inhaled Oxygen Concentration - - Weight 98.4 kg (217 lb) 12/08/2019 1:30 PM ACTUARIAL MATHEMATICIAN Height 160 cm (5' 3") 12/08/2019 1:30 PM ACTUARIAL MATHEMATICIAN Body Mass Index 38.44 12/08/2019 1:30 PM ACTUARIAL MATHEMATICIAN documented in this encounter Progress Notes Nara [...] Tissue amount collected: normal Nara Valadez MD #[id number] 12/09/2019 12:08 PM documented in this encounter Plan of Treatment Date Type Specialty Care Team Description 12/14/2019 Office Visit Obstetrics & Gynecology Yessica Payton PA-C [address] [phone] 12/14/2019 Appointment Radiology Yessica Payton PA-C [address], [place] [phone] Name Type Priority Associated Diagnoses Date/Ti me SURGICAL PATHOLOGY EXAM LAB Routine Menorrhagia with 12/08/2019 1:53 PM ACTUARIAL MATHEMATICIAN irregular cycle Name Type Priority Associated Diagnoses [...] Effective Phone Address T ype Group Dates [facility] [id number] 2019-Prese dicare [facility] HEALTHCARE - MEDICARE nt HMO MANAGED MEDICARE ADVANTAGE documented as of this encounter
--- OUTSIDE RECORDS SUMMARY | 2020-03-03 12:48 | XMS REPORT | Summary of Care ---
:1970 Author Organization [facility] Address [address] [place] [address] Care Team Providers Name Role Phone Morales Brar Primary Care Provider Reason for Visit Reason Comments Results Encounter Details Date Type Department Care Team Description 12/14/2019 Office Visit [facility] Women's Tata Yessica Eli rrhagia with irregular cycle (Primary Dx); [facility] PAMiky Initiation of OCP (BCP) [address], [address] [facility] 208 [address] [place], [place] [phone] [address] Allergies Active Allergy Reactions Severity Noted Date Comments Lamotrigine Rash High 04/21/2017 Alexandre Cowart Minocycline Rash 04/21/2017 Sulfa (Sulfonamide Antibiotics) Rash 7 Bupropion Swelling 04/21/2017 documented as of this encounter (statuses as of 12/14/2019) Medications Medication Sig Dispensed Refills Start Date End Date Status IBUPROFEN ORAL Take by 0 Activ e mouth. QUEtiapine 300 mg 0 10/21/2018 A ctive tablet QUEtiapine 50 mg 0 10/21/2018 Ac tive tablet traZODONE 50 mg 0 10/02/2018 Act susanna tablet valACYclovir 500 mg 0 09/30/2018 Active tablet chlorhexidine (SCRUB Wash body with 960 mL 0 01/18/2019 Active CHLORHEXIDINE product daily GLUCONATE) 4 % external liquidIndications: Staph skin infection mupirocin 2 % Apply 22 g 1 01/18/2019 Activ e ointmentIndications: topically TID Staph skin infection to affected skin and to both nares BID x 5 days metFORMIN 500 mg Take 500 mg by 0 Active tablet mouth daily before a meal. Levothyroxine 88 mcg Take by 0 Active capsule mouth. carvediloL 25 mg Take 1 tablet 180 tablet 1 11/30/2019 Active tabletIndications: by mouth 2 Essential (two) times hypertension daily. simvastatin 20 mg Take 1 tablet 90 tablet 1 11/30/2019 Active tabletIndications: by mouth at Mixed hyperlipidemia bedtime. LOESTRIN FE 1 mg-20 Take 1 tablet 1 Package 2 12/14/2019 Active mcg (21)/75 mg (7) by mouth tabletIndications: daily. Initiation of OCP (BCP) estradiol 2 mg Take 1 mg by 0 Di scontinued tablet mouth daily. 0 progesterone 100 mg 0 10/14/2018 Discontinued capsule 0 documented as of this encounter (statuses as of 12/14/2019) Active Problems Problem Noted Date Menorrhagia with [...] Sign Reading Time Taken Comments Blood Pressure 136/83 12/14/2019 12:02 PM VENEER SORTER Pulse - - Temperature 36.8 C (98.3 F) 12/14/2019 11:38 AM VENEER SORTER Respiratory Rate 18 12/14/2019 11:38 AM VENEER SORTER Oxygen Saturation - - Inhaled Oxygen Concentration - - Weight 98.8 kg (217 lb 12.8 oz) 12/14/2019 11:38 AM VENEER SORTER Height 162.6 cm (5' 4") 12/14/2019 11:38 AM VENEER SORTER Body Mass Index 37.39 12/14/2019 11:38 AM VENEER SORTER documented in this encounter Progress Notes Yessica Payton PA-C - 12/14/2019 11:15 AM CST Chief complaint: Chief Complaint Patient presents with Results HPI Sadia Mcpherson is a 49 year old female coming in to follow up on EMBX and pap results. Patient was concerned about irregular heavy menses. She has no complaints and reports is doing well.Patient denies any abnormal/pelvic pain, discharge, dysuria, hematuria, abnormal bleeding currently.Patient reports she is spotting now. Patient has been taking progesterone and estradiol and states it is not regulate her menses anymore. Histories OB History Para Term AB Living 0 0 0 0 0 0 SAB TAB Ectopic Multiple Live Births 0 0 0 0 0 Past Medical History: Diagnosis Date Abnormal uterine bleeding Anemia Anxiety Cervical high risk human papillomavirus (HPV) DNA test positive 03/02/2019 Depression Endometriosis Female infertility Genital herpes Hormone disorder Hypertension Insomnia Kidney disease kidney stones several times Leiomyoma of uterus Prediabetes Staph skin infection Thyroid disease Trauma CVA [...] file Gets together: Not on file Attends mandaen service: Not on file Active member of [...] Partners: Male control/protection: None Labs none Radiology None Allergies Sadia is allergic to lamictal [lamotrigine]; minocycline; sulfa (sulfonamide antibiotics); and wellbutrin [bupropion]. Medications aSdia has a current medication list which includes the following prescription(s): loestrin fe, carvedilol, levothyroxine, simvastatin, metformin, chlorhexidine, mupirocin, quetiapine, quetiapine, trazodone, valacyclovir, and ibuprofen. Review of Systems Constitutional: Negative for appetite change, fatigue and fever. HENT: Negative for rhinorrhea and sore throat. [...] is not nervous/anxious. Endocrine: Negative for hair loss. Temp 36.8 C (98.3 F) (Oral) | Resp 18 | Ht 5' 4" (1.626 m) | Wt 217 lb 12.8 oz (98.8 kg) | BMI 37.39 kg/m Pregravid BMI: Could not be calculated Physical Exam Vitals reviewed. Constitutional: She is oriented to person, place, and time. Her body habitus is obese. Neck: No mass. No thyromegaly palpated. No neck adenopathy. Cardiovascular: Regular rate and rhythm. Pulmonary/Chest: Normal inspiratory effort. Abdominal: Abdomen is soft. No tenderness present. No hernia palpated or inspected. Neuro/Psychiatric: She has a normal mood and affect. She is oriented to person, place, and time. Skin: Skin normal. Lymphadenopathy: No neck adenopathy present. No axillary adenopathy present. No inguinal adenopathy present. Assessment/Plan Menorrhagia with irregular cycle (primary encounter diagnosis) Follow-up in 3 months Reviewed pap results-NIL, no HPV detected. EMBX: benign. A. ENDOMETRIUM, CURETTAGE: - EXHAUSTED SECRETORY ENDOMETRIUM WITH STROMAL BREAKDOWN CONSISTENT WITH MENSTRUAL PHASE Initiation of OCP (BCP) Plan: LOESTRIN FE 1 mg-20 mcg (21)/75 mg (7) tablet Patient denies self or family history of thromboembolic disease or thrombophilia, migraine headache. I counseled patient regarding use of oral contraceptives. There are combined oral contraceptive, which has both estrogen and progestin, and there is progestin only oral contraceptive. With typical us e, 9 out 100 women get in the first year and with perfect use 0.3 out of 100 women get in the first year according to ACOG Practice Bulletin. Risks include but not limited to increase risk of thromboembolic disease, headache, weight gain, mood lability, and breast cancer. Decrease risks of ovarian cancer, colon cancer, and endometrial cancer. Oral contraceptive may decrease milk supply. Alternatives reviewed include patch, ring, Depo-Provera, Nexplanon, and IUD. Advise using condoms for STDs prevention. Return to clinic in 12 weeks. Discussed treatment options. Medications as ordered. Reviewed patient instructions and provided printed copy. This visit did not involve counseling and coordination that comprised more than 50% of the visit time. Yessica Payton PA-C 12/14/2019 11:58 AM ER SORTER documented in this encounter Plan of Treatment Date Type Specialty Care Team Description 12/14/2019 Appointment Radiology Yessica Payton PA-C [address] [place] [phone] 03/15/2020 Office Visit Obstetrics & Gynecology Yessica Payton PA-C [address] [phone] Health Maintenance Due Date Last Done Comments [...] Associated Diagnosis Comme nts POCT TEST Routine 12/14/2019 Initiation of OCP (BC P) Results for this procedure are i n the results section . documented in this encounter Results POCT TEST (12/14/2019) Pathologist Sig nature POCT PREG Negative On board controls acceptable Yes with C Line POCT PREG LOT # POCT PREG TEST DATE Specimen Urine - URINE, CLEAN CATCH documented in this encounter Visit Diagnoses Diagnosis Menorrhagia with irregular cycle - Prima ry Excessive or frequent menstruation Initiation of OCP (BCP) General counseling for prescription of o ral contraceptives documented in this encounter Insurance Payer Benefit Plan / Subscriber ID Effective Phone Address T ype Group Dates [facility] [id number] 2019-Yessi rodgers [facility] HEALTHC[facility] - MEDICARE [facility]ED MEDICARE ADVANTAGE documented as of this encounter
--- OUTSIDE RECORDS SUMMARY | 2020-03-03 12:48 | XMS REPORT | Summary of Care ---
:1970 Author Organization [facility] Address [address] [place] [address] Care Team Providers Name Role Phone Morales Brar Primary Care Provider Reason for Visit Reason Comments Results Encounter Details Date Type Department Care Team Description 12/14/2019 Office Visit [facility] Women's Tata Yessica Eli rrhagia with irregular cycle (Primary Dx); [facility] PAMiky Initiation of OCP (BCP) [address], [address] [facility] 208 [address] [place], [place] [phone] Allergies Active Allergy Reactions Severity Noted [...] Comments Blood Pressure 136/83 12/14/2019 12:02 PM LOAD DROPPER Pulse - - Temperature 36.8 C (98.3 F) 12/14/2019 11:38 AM LOAD DROPPER Respiratory Rate 18 12/14/2019 11:38 AM LOAD DROPPER Oxygen Saturation - - Inhaled Oxygen Concentration - - Weight 98.8 kg (217 lb 12.8 oz) 12/14/2019 11:38 AM LOAD DROPPER Height 162.6 cm (5' 4") 12/14/2019 11:38 AM LOAD DROPPER Body Mass Index 37.39 12/14/2019 11:38 AM LOAD DROPPER documented in this encounter Progress Notes Yessica [...] file Gets together: Not on file Attends protestant service: Not on file Active member of [...] time. Yessica Payton PA-C 12/14/2019 11:58 AM DROPPER documented in this encounter Plan of Treatment Date Type Specialty Care Team Description 12/14/2019 Appointment Radiology Yessica Payton PA-C [address] [place] [phone] 03/15/2020 Office Visit Obstetrics & Gynecology Yessica Payton PA-C [address] [phone] Health Maintenance Due Date [...] Effective Phone Address T ype Group Dates [facility] [id number] 2019-Yessi rodgers [facility] HEALTHCARE - [facility]IC[facility]IC[facility] ADVANTAGE documented as of this encounter
--- OUTSIDE RECORDS SUMMARY | 2020-03-03 12:48 | XMS REPORT | Summary of Care ---
:1970 Author Organization [facility] Address [address] [place] [address] Care Team Providers Name Role Phone Morales Brar Primary Care Provider Reason for Visit Reason Comments TEST RESULTS Pap Negative / HPV Negative Encounter Details Date Type Department Care Team Description 12/13/2019 Telephone [facility] Women's Yessica Payton, TEST RESULTS ([facility] [place] PA-C Negative / HPV [address] [facility], [address] [place] [address]) [address] [facility] 208 [address] [place], [place] [phone] Allergies Active Allergy Reactions Severity Noted Date Comments Lamotrigine Rash High 04/21/2017 Alexandre Cowart Minocycline Rash 04/21/2017 Sulfa (Sulfonamide Antibiotics) Rash 7 Bupropion Swelling 04/21/2017 documented as of this encounter (statuses as of 12/14/2019) Medications Medication Sig Dispensed Refills Start Date End Date Status IBUPROFEN ORAL Take by mouth. 0 Active QUEtiapine 300 mg 0 10/21/2018 A ctive [...] Active tabletIndications: mouth at bedtime. Mixed hyperlipidemia documented as of this encounter (statuses as [...] Treatment Date Type Specialty Care Team Description 03/15/2020 Office Visit Obstetrics & Gynecology Yessica Payton PA-C [address] [place] [phone] Health Maintenance Due Date Last Done [...] Effective Phone Address T ype Group Dates [facility] [id number] 2019-Yessi rodgers [facility] documented as of this encounter
--- OUTSIDE RECORDS SUMMARY | 2020-03-03 12:49 | XMS REPORT | Summary of Care ---
:1970 Author Organization [facility] Address [address] [place] [address] Care Team Providers Name Role Phone Morales Brar Primary Care Provider Reason for Referral Radiology Services (Routine) Status Reason Specialty Diagnoses / Referred By Referred To Procedures Contact Contact New Request Diagnostic Diagnoses Mammogram abnormal [place], Radiology Procedures BI ULTRASOUND BREAST COMPLETE RIGHT KETAN Juan [address] [place] [phone] Reason for Visit Reason Comments Imaging Encounter Details Date Type Department Care Team Description 12/14/2019 Case Management [facility] Women's Charlene Payton PA-C Imaging [facility]- [address] 208 [place] [phone] Allergies Active Allergy Reactions Severity Noted [...] Active tabletIndications: mouth at bedtime. Mixed hyperlipidemia LOESTRIN FE 1 mg-20 Take 1 tablet by 1 Package 2 12/14/2019 Active mcg (21)/75 mg (7) mouth daily. tabletIndications: Initiation of OCP (BCP) documented as of this encounter (statuses as [...] Visit Obstetrics & Gynecology Yessica Payton PA-C [facility] [place] [phone] Name Type Priority Associated Diagnoses Order S chedule BI ULTRASOUND BREAST IMAGING Routine Mammogram abnormal E xpected: 12/14/2019, COMPLETE RIGHT Expires: 01/2021 Health Maintenance Due Date Last Done Comments [...] filedocumented in this encounter Visit Diagnoses Diagnosis Mammogram abnormal - Primary Abnormal mammogram, unspecified documented in this encounter Insurance Payer Benefit Plan / Subscriber ID Effective Phone Address T ype Group Dates [facility] [id number] 2019-Yessi rodgers Count Includes [facility] HEALTHCARE - MEDICARE nt HMO MANAGED MEDICARE ADVANTAGE documented as of this encounter
--- OUTSIDE RECORDS SUMMARY | 2020-03-03 12:49 | XMS REPORT | Summary of Care ---
:1970 Author Organization [facility] Address [address] [place] [address] Care Team Providers Name Role Phone Morales Quintero MD Primary Care Provider Encounter Details Date Type Department Care Team Description 12/22/2019 Orders Only [facility] Doctor Unassigned, No [address] [facility] [place] [address] [address] [place] [address] Allergies Active Allergy Reactions Severity Noted Date Comments Lamotrigine Rash High 04/21/2017 Alexandre Cowart Minocycline Rash 04/21/2017 Sulfa (Sulfonamide Antibiotics) Rash 7 Bupropion Swelling 04/21/2017 documented as of this encounter (statuses as of 12/22/2019) Medications Medication Sig Dispensed Refills Start Date [...] as of this encounter (statuses as of 12/22/2019) Active Problems Problem Noted Date Menorrhagia with [...] as of this encounter (statuses as of 12/22/2019) Social History Tobacco Use Types Packs/Day Years [...] Treatment Date Type Specialty Care Team Description 12/22/2019 Appointment Radiology Yessica Payton PA-C [address] [place] [phone] 12/22/2019 Office Visit Family Medicine Esther Brar PA [address] [facility] [place], [place] [phone] 03/15/2020 Office Visit Obstetrics & Gynecology Yessica Payton PA-C 146 [facility] [address] [place], [place] [phone] Health Maintenance Due Date Last Done Comments DTaP,Tdap,and Td Vaccines 1981 (1 - Tdap) PAP SMEAR 11/12/2020 11/12/2019, 10/28/2018, 04/21/2018 (Previously completed), Additional history exists INFLUENZA VACCINE (#1) 2020 Postponed from 06/12/2019 (Refu sed) Breast Cancer Screening 12/13/2020 12/14/2019, 05/12/2019, (MAMMOGRAM) 11/25/2017, Additional history exists PNEUMOCOCCAL 0-64 YEARS Aged Out No longe r eligible COMBINED SERIES based on patient 's age to complete this topic documented as of this encounter Procedures Procedure Name Priority Date/Time Associated Diagnosis Comme nts ASSIGNMENT OF BENEFITS Routine 12/22/2019 1:49 PM CDT documented in this encounter Results Not on filedocumented in this encounter Insurance Payer Benefit Plan / Subscriber ID Effective Phone Address T ype Group Dates [facility] [id number] 2019-Yessi rodgers [facility] - MEDICARE nt O MANAGED MEDICARE ADVANTAGE documented as of this encounter
--- OUTSIDE RECORDS SUMMARY | 2020-03-03 12:49 | XMS REPORT | Summary of Care ---
:1970 Author Organization [facility] Address [address] [place] [address] Care Team Providers Name Role Phone Morales Brar Primary Care Provider Reason for Referral Radiology Services (Routine) Status Reason Specialty Diagnoses / Referred By Referred To Procedures Contact Contact Closed Diagnostic Diagnoses Encounter for screening mammogram for malignant neoplasm of breast Screening breast examination Yessica Payton, Radiology Procedures BI SCREENING MAMMOGRAM BILATERAL PA-C [address] [phone] Reason for Visit Radiology Services (Routine) Status Reason Specialty Diagnoses / Referred By Referred To Procedures Contact Contact Closed Diagnostic Diagnoses Encounter for screening mammogram for malignant neoplasm of breast Screening breast examination Yessica Payton, Radiology Procedures BI SCREENING MAMMOGRAM BILATERAL PA-C [address] [facility] [address] [phone] Encounter Details Date Type Department Care Team Description 12/14/2019 Hospital Encounter [facility] Donna Payton y, Arrived [place] [facility] PA-C [address] [facility] [address] [facility] [address] [place] [address] [facility] [address] [phone] [place] [address] Allergies Active Allergy Reactions Severity Noted Date Comments Lamotrigine Rash High 04/21/2017 Alexandre Supa Minocycline Rash 04/21/2017 Sulfa (Sulfonamide Antibiotics) Rash 7 Bupropion Swelling 04/21/2017 documented as of this encounter (statuses as of 12/15/2019) Medications Medication Sig Dispensed Refills Start Date [...] as of this encounter (statuses as of 12/15/2019) Active Problems Problem Noted Date Menorrhagia with [...] as of this encounter (statuses as of 12/15/2019) Social History Tobacco Use Types Packs/Day Years [...] Visit Obstetrics & Gynecology Yessica Payton PA-C [address] [place] [phone] Health Maintenance Due Date Last Done Comments DTaP,Tdap,and Td Vaccines 12/21/2019 Postpo donita from (1 - Tdap) 1981 (Refu sed) PAP SMEAR 11/12/2020 11/12/2019, 10/28/2018, 04/21/2018 (Previously [...] Name Priority Date/Time Associated Diagnosis Comme nts BI SCREENING Routine 12/14/2019 1:34 PM Encounter for Results for this MAMMOGRAM BILATERAL PHYS THER screening mammogram p rocedure are in for malignant the results neoplasm of alex st section. Screening breast examination documented in this encounter Results BI SCREENING MAMMOGRAM BILATERAL (12/14/2019 1:34 PM PHYS THER) Specimen Narrative Performed At This result has an attachment that is no t available. Examination: PACS BI SCREENING MAMMOGRAM BILATERAL History: Patient is 49 year old and is seen for: Routine mamm ogram screening. Computer-aided detection (CAD) utilized. Comparisons : None available Findings: The breasts are almost entirely fatty. Right There is a focal asymmetry seen in the upper outer frank drant of the right breast in the posterior depth, 7.8 cm from the nipple on the MLO view. Left There is no evidence of suspicious masses, calcificati ons, or other abnormal findings in the left breast. The implants are retropectoral saline type and are n ormal. Impression: Focal asymmetry in upper RIGHT breast, visible ONLY in MLO view. Ultrasound study recommended. Recommendation: Ultrasound - Right Annual mammographic follow-up - Left BI-RADS Category: Left: 2 - Benign Right: 0 - Incomplete: Needs Additional Imaging Evalua tion Overall: 0 - Incomplete: Needs Additional Imaging Eval uation Performing Organization Address City/State/Zipcode Phone Number PACS documented in this encounter Visit Diagnoses Diagnosis Encounter for screening mammogram for ma lignant neoplasm of breast Other screening mammogram Screening breast examination Other screening breast examination documented in this encounter Insurance Payer Benefit Plan / Subscriber ID Effective Phone Address T ype Group Dates [facility] [id number] 2019-Yessi rodgers [facility] - MEDICARE HMO MANAGED MEDICARE ADVANTAGE documented as of this encounter
--- OUTSIDE RECORDS SUMMARY | 2020-03-03 12:49 | XMS REPORT | Summary of Care ---
:1970 Author Organization [facility] Address [address] [place] [address] Care Team Providers Name Role Phone Morales Brar Primary Care Provider Reason for Visit Reason Comments Assessment OCP side effects Encounter Details Date Type Department Care Team Description 12/20/2019 Telephone [facility] Women's Nara Valadez MD Assessment (OCP side Healthcare- [address] effects) [address] [place] [address] [address] [place], [place] [address] [phone] Allergies Active Allergy Reactions Severity Noted Date Comments Lamotrigine Rash High 04/21/2017 Alexandre Cowart Minocycline Rash 04/21/2017 Sulfa (Sulfonamide Antibiotics) Rash 7 Bupropion Swelling 04/21/2017 documented as of this encounter (statuses as of 12/20/2019) Medications Medication Sig Dispensed Refills Start Date [...] as of this encounter (statuses as of 12/20/2019) Active Problems Problem Noted Date Menorrhagia with [...] as of this encounter (statuses as of 12/20/2019) Social History Tobacco Use Types Packs/Day Years [...] Description 12/22/2019 Appointment Radiology Yessica Payton PA-C [address] [facility] [address] [phone] 03/15/2020 Office Visit Obstetrics & Gynecology Yessica Payton PA-C [facility] [place], [place] [phone] Health Maintenance Due Date [...] Effective Phone Address T ype Group Dates [facility] [id number] 2019-Yessi rodgers [facility] - MEDICARE [facility] MA[facility] MEDIC[facility] ADVANTAGE documented as of this encounter
--- OUTSIDE RECORDS SUMMARY | 2020-03-03 12:50 | XMS REPORT | Summary of Care ---
:1970 Author Organization [facility] Address [address] [place] [address] Care Team Providers Name Role Phone Moarles Quintero MD Primary Care Provider Reason for Visit Radiology Services (Routine) Status Reason Specialty Diagnoses / Referred By Referred To Procedures Contact Contact New Request Diagnostic Diagnoses Mammogram abnormal Vanaphan, Radiology Procedures BI ULTRASOUND BREAST LIMITED RIGHT BI ULTRASOUND BREAST COMPLETE RIGHT KETAN Juan [address] [address] Encounter Details Date Type Department Care Team Description 12/22/2019 Hospital Encounter [facility] Donna Payton y, Reggie Carrera Ultrasound KETAN [address] [facility] [address] [place] [address] [facility] [address] [phone] [place] [phone] Allergies Active Allergy Reactions Severity Noted Date Comments Lamotrigine Rash High 04/21/2017 Alexandre Supa Minocycline Rash 04/21/2017 Sulfa (Sulfonamide Antibiotics) Rash 7 Bupropion Swelling 04/21/2017 documented as of this encounter (statuses as of 12/23/2019) Medications Medication Sig Dispensed Refills Start Date [...] as of this encounter (statuses as of 12/23/2019) Active Problems Problem Noted Date Menorrhagia with [...] as of this encounter (statuses as of 12/23/2019) Social History Tobacco Use Types Packs/Day Years [...] Visit Obstetrics & Gynecology Yessica Payton PA-C [address] [place] [address] [phone] Health Maintenance Due Date Last Done [...] encounter Procedures Procedure Name Priority Date/Time Associated Comments Diagnosis BI ULTRASOUND BREAST Routine 12/22/2019 2:26 PM Mammogram abn ormal Results for this LIMITED RIGHT CDT procedure are in the results section. documented in this encounter Results BI ULTRASOUND BREAST LIMITED RIGHT (12/22/2019 2:26 PM CDT) Specimen Narrative Performed At This result has an attachment that is no t available. Examination: PACS BI ULTRASOUND BREAST LIMITED RIGHT History: Patient is 49 year old and is seen for: Abnormal molly mogram. Comparisons: 12/14/2019 BI SCREENING MAMMOGRAM BILATER AL HISTORY: Abnormal mammogram. Rule out mass in the ri ght breast. TECHNIQUE: Upper-outer quadrant of the right breast wa s evaluated in radial/antiradial/sagittal/coronal planes both by the technologist and by me. Female technologist was present in the room during all imaging evaluations. FINDINGS: 2.7 mm cyst at 9:00, 2.7 mm cyst at 10:00 an d 2.6 mm cyst at 11:00 locations were detected with all cysts filled wi th thick fluid and surrounded by dense fibroglandular tissue. No solid le sions detected. CONCLUSIONS: No solid masses detected. Small cysts dis cussed above. Images were reviewed and findings were discussed with the pat ient. Annual bilateral mammography evaluation is appropriate. ACR classification: Category II. Recommendation: Annual mammographic follow-up - Right BI-RADS Category: Right 2 - Benign Performing Organization Address City/State/Zipcode Phone Number PACS documented in this encounter Visit Diagnoses Diagnosis Mammogram abnormal Abnormal mammogram, unspecified documented in this encounter Insurance Payer Benefit Plan / Subscriber ID Effective Phone Address T ype Group Dates [facility] [id number] 2019-Yessi N[place] ana maria [facility] - MEDICARE HMO MANAGED MEDICARE ADVANTAGE documented as of this encounter
--- OUTSIDE RECORDS SUMMARY | 2020-03-03 12:50 | XMS REPORT | Summary of Care ---
:1970 Author Organization [facility] Address [address] [place] [id number] Care Team Providers Name Role Phone Morales Quintero MD Primary Care Provider Reason for Visit Reason Comments Follow-up productive cough, congestion , possible fever and wheezing x3 days Encounter Details Date Type Department Care Team Description 12/22/2019 Office Visit [facility] Family Esther Brar Acut e URI (Primary Dx); Medicine - [facility] Cough [address] [facility] [address] [place] [phone] Allergies Active Allergy Reactions Severity [...] 11/30/2019 Active tabletIndications: mouth 2 (two) Essential times daily. hypertension simvastatin 20 mg Take 1 tablet by 90 tablet 1 11/30/2019 Active tabletIndications: mouth at Mixed hyperlipidemia bedtime. LOESTRIN FE 1 mg-20 Take 1 tablet by 1 Package 2 12/14/2019 Active mcg (21)/75 mg (7) mouth daily. tabletIndications: Initiation of OCP (BCP) benzonatate (TESSALON Take 1 capsule 30 capsule 0 12/22/2019 0 01/01/2020 Active PERLES) 100 mg by mouth 3 capsuleIndications: (three) times Acute URI, Cough daily for 10 days. documented as of this encounter (statuses as [...] Sign Reading Time Taken Comments Blood Pressure 115/75 12/22/2019 3:31 PM CDT Pulse 80 12/22/2019 3:31 PM CDT Temperature 36.7 C (98.1 F) 12/22/2019 3:31 PM CDT Respiratory Rate - - Oxygen Saturation 97% 12/22/2019 3:31 PM CDT Inhaled Oxygen Concentration - - Weight 97.5 kg (215 lb) 12/22/2019 3:31 PM CDT Height 162.6 cm (5' 4") 12/22/2019 3:31 PM CDT Body Mass Index 36.9 12/22/2019 3:31 PM CDT documented in this encounter Progress Notes Esther Brar PA - 12/22/2019 3:40 PM CDT Cc: Chief Complaint Patient presents with Follow-up productive cough, congestion, possible fever and wheezing x3 days Sadia Mcpherson is a 49 year old female. 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 Associated symptoms: sinus pain and wheezing Associated symptoms: no arthralgias, no headaches, no myalgias, no neck pain, no sneezing and no swollen glands Risk factors: not elderly, no chronic cardiac disease, no chronic kidney disease, no chronic respiratory disease, no immunosuppression, no recent illness, no recent travel and no sick contacts Allergies Sadia is allergic to lamictal [lamotrigine]; minocycline; sulfa (sulfonamide antibiotics); and wellbutrin [bupropion]. Medications Outpatient Medications Prior to Visit Medication Sig Dispense Refill LOESTRIN FE 1 mg-20 mcg (21)/75 mg (7) tablet Take 1 tablet by mouth daily. 1 Package 2 carvediloL 25 mg tablet Take 1 tablet by mouth 2 (two) times daily. 180 tablet 1 Levothyroxine 88 mcg capsule Take by mouth. simvastatin 20 mg tablet Take 1 tablet by mouth at bedtime. 90 tablet 1 metFORMIN 500 mg tablet Take 500 mg by mouth daily before a meal. chlorhexidine (SCRUB CHLORHEXIDINE GLUCONATE) 4 % external liquid Wash body with product daily 960 mL 0 mupirocin 2 % ointment Apply topically TID to affected skin and to both nares BID x 5 days 22 g 1 QUEtiapine 300 mg tablet QUEtiapine 50 mg tablet traZODONE 50 mg tablet valACYclovir 500 mg tablet IBUPROFEN ORAL Take by mouth. No facility-administered medications prior to visit. Histories [...] file Gets together: Not on file Attends alevism service: Not on file Active member of [...] NoFHx Osteoporosis NoFHx Review of Systems Constitutional: Positive for chills, fatigue and fever (subjective but states it could be 2/2 hot flashes she is seeing bulldozer mechanic for). Negative for activity change, appetite change and diaphoresis. HENT: Positive for congestion, postnasal drip, rhinorrhea, sinus pain and sore throat. Negative for ear pain, facial swelling, mouth sores, sinus pressure, sneezing, trouble swallowing and voice change. Eyes: Negative for pain, discharge, redness and itching. Respiratory: Positive for cough and wheezing. Negative for chest tightness and shortness of breath. Cardiovascular: Negative for chest pain, palpitations and leg swelling. Gastrointestinal: Positive for vomiting (once yesterday from coughing so much). Negative for abdominal pain, constipation, diarrhea and nausea. Musculoskeletal: Negative for arthralgias, myalgias, neck pain and neck stiffness. Skin: Negative for color change and rash. Neurological: Negative for dizziness, syncope, weakness, light-headedness, numbness and headaches. Vital Signs BP 115/75 | Pulse 80 | Temp 36.7 C (98.1 F) (Oral) | Ht 5' 4" (1.626 m) | Wt 215 lb (97.5 kg) | SpO2 97% | BMI 36.90 kg/m Physical Exam Constitutional: She is oriented to person, place, and time. She appears well- developed and well-nourished. No distress. HENT: Head: Normocephalic and atraumatic. Right Ear: Tympanic membrane, external ear and ear canal normal. Left Ear: Tympanic membrane, external ear and ear canal normal. Nose: Mucosal edema and rhinorrhea (clear) present. Right sinus exhibits no maxillary sinus tenderness and no frontal sinus tenderness. Left sinus exhibits no maxillary sinus tenderness and no frontal sinus tenderness. Mouth/Throat: Uvula is midline, oropharynx is clear and moist and mucous membranes are normal. No trismus in the jaw. No uvula swelling. No oropharyngeal exudate, posterior oropharyngeal edema, posterior oropharyngeal erythema or tonsillar abscesses. Tonsils are 0 on the right. Tonsils are 0 on the left. No tonsillar exudate. Eyes: Conjunctivae are normal. Neck: Neck supple. Cardiovascular: Normal rate, regular rhythm and normal heart sounds. Pulmonary/Chest: Effort normal and breath sounds normal. No stridor. No respiratory distress. She has no wheezes. She has no rales. Abdominal: Soft. Bowel sounds are normal. She exhibits no distension. There is no tenderness. Musculoskeletal: Normal range of motion. Lymphadenopathy: She has no cervical adenopathy. Neurological: She is alert and oriented to person, place, and time. Skin: Skin is warm and dry. She is not diaphoretic. Psychiatric: She has a normal mood and affect. Her behavior is normal. Nursing note and vitals reviewed. Assessment/Plan Acute URI (primary encounter diagnosis) Cough Plan: POCT FLU A AND B (MOLECULAR), XR CHEST 2 VW, benzonatate (TESSALON PERLES) 100 mg capsule Results for SADIA MCPHERSON ( ) as of 12/22/2019 20:39 Ref. Range 12/22/2019 00:00 POCT INFLUENZA A Latest Ref Range: Negative - Negative NEGATIVE POCT INFLUENZA B Latest Ref Range: Negative - Negative NEGATIVE Afebrile, well appearing, HR < 100, O2 sat 97%, lungs CTAB. NEGATIVE FLU. Likely 2/2 acute viral URI Explained viral vs bacterial etiologies in detail. Explained that the most common cause of URI is viral. Viral cause most likely with s/s <7-10 days. Explained that antibiotics are not used for viral causes. Explained risks of antibiotic resistance and potential side effects with unnecessary use. Pt reports understanding. Treatment of choice is symptomatic, which includes: Start tessalon as needed for cough. Do not combine otc cough medicine with tessalon. Offered depo medrol injection but patient refuses. Encouraged to start otc claritin/meño/zyrtec w/o decongestant Start plain guaifenesin (mucinex) with full glass of water. Recommend nasal saline spray OR netti pot with distilled water (neilmed sinus rinse) with distilled water, recommend using first, blow nose gently, then use nasal spray. Rest Wash hands frequently Increase water intake Cover mouth when coughing. Warm liquids Gargle with warm salt water/throat lozenges Er: worsening f/c, chest pain, coughing up blood, shortness of breath, dizziness, passing out Pt ed/precautions given in detail regarding conditions/medicaitons. Er precautions given. Pt reportsunderstanding and agrees. rtc if s/s worsen or do not improve; Plan of care, desired health behaviors, goals, Ddx, & any prescribed or OTC medications discussed with patient. Education resources & self management tools provided and reviewed with AVS. Patient/guardian/family verbalized understanding & agrees to plan of care. Barriers to care: NONE Ability to manage care: Good This visit did not involve counseling and coordination that comprised more than 50% of the visit time. documented in this encounter Plan of Treatment Date Type Specialty Care Team Description 03/15/2020 Office Visit Obstetrics & Gynecology Yessica Payton PA-C [address] [place] [address] [phone] Name Type Priority Associated Diagnoses Order S chedule XR CHEST 2 VW IMAGING Routine Acute URI Expected: 12/22/2019, Expires: Cough 12/21/2020 Health Maintenance Due Date Last Done Comments [...] Priority Date/Time Associated Diagnosis Comme nts POCT FLU A AND B Routine 12/22/2019 Acute URI Results for this (MOLECULAR) procedure are i n the results section . documented in this encounter Results POCT FLU A AND B (MOLECULAR) (12/22/2019) Pathologist Sig nature POCT INFLUENZA A NEGATIVE Negative - Negative POCT INFLUENZA B NEGATIVE Negative - Negative Specimen Swab documented in this encounter Visit Diagnoses Diagnosis Acute URI - Primary Acute upper respiratory infections of un specified site Cough documented in this encounter Insurance Payer Benefit Plan / Subscriber ID Effective Phone Address T ype Group Dates [facility] [id number] 2019-Yessi rodgers Pending Sale To [facility]IC[facility] documented as of this encounter
--- OUTSIDE RECORDS SUMMARY | 2020-03-03 12:50 | XMS REPORT | Summary of Care ---
:1970 Author Organization [facility] Address [address] [place] [address] Care Team Providers Name Role Phone Morales Quintero MD Primary Care Provider Reason for Visit Reason Comments Follow-up productive cough, congestion , possible fever and wheezing x3 days Encounter Details Date Type Department Care Team Description 12/22/2019 Office Visit [facility] Family Esther Brar Acut e URI (Primary Dx); Medicine - [facility] Cough [address] [facility] [address] [place] [phone] Allergies Active Allergy Reactions [...] be 2/2 hot flashes she is seeing fund accountant for), rhinorrhea and sore throat Presenting symptoms: [...] file Gets together: Not on file Attends muslim service: Not on file Active member of [...] be 2/2 hot flashes she is seeing fund accountant for). Negative for activity change, appetite change [...] Visit Obstetrics & Gynecology Yessica Payton PA-C [address] [place] [address] [phone] Name Type Priority Associated Diagnoses Order [...] Effective Phone Address T ype Group Dates [facility] [id number] 2019-Yessi rodgers [facility]ALTHC[facility] documented as of this encounter
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
--- OUTSIDE RECORDS SUMMARY | 2020-03-03 12:51 | XMS REPORT | Summary of Care ---
:1970 Author Organization [facility] Address [address] [place] [address] Care Team Providers Name Role Phone Morales Quintero MD Primary Care Provider Reason for Visit Reason Comments Rx Concern/Question Appointment Encounter Details Date Type Department Care Team Description 01/16/2020 Telephone [facility] Women's Pilar Quintero, Rx Concern/Question; Healthcare- Ad[facility] Appointment [address] [facility] [address], [address] [place] [address] [phone] Allergies Active Allergy Reactions Severity Noted Date Comments Lamotrigine Rash High 04/21/2017 Alexandre Supa Minocycline Rash 04/21/2017 Sulfa (Sulfonamide Antibiotics) Rash 7 Bupropion Swelling 04/21/2017 documented as of this encounter (statuses as of 01/16/2020) Medications Medication Sig Dispensed Refills Start Date [...] Active tabletIndications: mouth at bedtime. Mixed hyperlipidemia desog-e.estradiol/e.es Take 1 tablet by 1 Package 2 01/05/2020 Active tradiol (MIRCETTE, mouth daily. 28,) 0.15-0.02 mgx21 /0.01 mg x 5 per tabletIndications: Menorrhagia with irregular cycle, Hot flashes documented as of this encounter (statuses as of 01/16/2020) Active Problems Problem Noted Date Menorrhagia with [...] as of this encounter (statuses as of 01/16/2020) Social History Tobacco Use Types Packs/Day Years [...] Treatment Date Type Specialty Care Team Description 01/16/2020 Telemedicine Visit Obstetrics & Gynecology Errol Payton Arrived PA-C [address] [phone] 03/15/2020 Office Visit Obstetrics & Gynecology Yessica Payton PA-C [address] [facility] [address] [place] [address] Health Maintenance Due Date Last Done Comments [...] ID Effective Phone Address T ype Group [facility] [id number] 2019-Yessi rodgers [facility] - MEDICARE [facility] MEDIC[facility] ADVANTAGE documented as of this encounter
--- OUTSIDE RECORDS SUMMARY | 2020-03-03 12:51 | XMS REPORT | Summary of Care ---
:1970 Author Organization [facility] Address [address] [place] [address] Care Team Providers Name Role Phone Morales Quintero MD Primary Care Provider Reason for Visit Reason Comments Rx Concern/Question Encounter Details Date Type Department Care Team Description 01/16/2020 Telephone [facility] Women's Pilar Quintero, Rx Concern/Question Healthcare- [facility] [address], [address] [place] [address] [phone] Allergies Active Allergy Reactions Severity Noted Date [...] Visit Obstetrics & Gynecology Yessica Payton PA-C [address] [place] [address] [phone] Health Maintenance Due Date Last Done [...] Effective Phone Address T ype Group Dates [facility] [id number] 2019-Yessi Lucas HEALTHCARE - MEDICARE nt HMO MANAGED MEDICARE ADVANTAGE documented as of this encounter
--- OUTSIDE RECORDS SUMMARY | 2020-03-03 12:51 | XMS REPORT | Summary of Care ---
:1970 Author Organization [facility] Address [address] [place] [address] Care Team Providers Name Role Phone Morales Quintero MD Primary Care Provider Reason for Visit Reason Comments Rx Concern/Question Encounter Details Date Type Department Care Team Description 01/05/2020 Telephone [facility] Women's Charlene Payton PA-C Rx Concern/Question Healthcare- [address] 146 [facility], [facility] [address] [place] [address] [phone] Allergies Active Allergy Reactions Severity Noted Date Comments Lamotrigine Rash High 04/21/2017 Alexandre Cowart Minocycline Rash 04/21/2017 Sulfa (Sulfonamide Antibiotics) Rash 7 Bupropion Swelling 04/21/2017 documented as of this encounter (statuses as of 01/05/2020) Medications Medication Sig Dispensed Refills Start Date [...] Treatment Date Type Specialty Care Team Description 01/05/2020 Telemedicine Visit Obstetrics & Gynecology Errol Payton, Reggie ACEVES [address] [facility] 208 [place] [address] 03/15/2020 Office Visit Obstetrics & Gynecology Yessica Payton PA-C [address] [facility] 208 [place] [address] Health Maintenance Due Date Last [...] T ype Group Dates [facility]/JASMIN [id number] 2019-Yessi Lucas [facility] documented as of this encounter
--- OUTSIDE RECORDS SUMMARY | 2020-03-03 12:52 | XMS REPORT | Summary of Care ---
:1970 Author Organization [facility] Address [address] [place] [address] Care Team Providers Name Role Phone Morales Quintero MD Primary Care Provider Reason for Visit Reason Comments Results Encounter Details Date Type Department Care Team Description 01/18/[address] [facility] Womens ValadezNara MD Results Healthcare- [address] [place] [address], Suite [facility] 20 8 208 [place] [address] [place] [address] [phone] Allergies Active Allergy Reactions Severity Noted Date Comments Lamotrigine Rash High 04/21/2017 Alexandre Cowart Minocycline Rash 04/21/2017 Sulfa (Sulfonamide Antibiotics) Rash 7 Bupropion Swelling 04/21/2017 documented as of this encounter (statuses as of 01/18/2020) Medications Medication Sig Dispensed Refills Start Date [...] as of this encounter (statuses as of 01/18/2020) Active Problems Problem Noted Date Menorrhagia with [...] as of this encounter (statuses as of 01/18/2020) Social History Tobacco Use Types Packs/Day Years [...] Treatment Date Type Specialty Care Team Description 01/30/2020 Telemedicine Visit Obstetrics & Gynecology Nara Valadez MD [address] [facility] [address] [place], [place] [address] [phone] 03/15/2020 Office Visit Obstetrics & Gynecology Yessica Payton PA-C 146 [facility] 208 [place] [address] [phone] Health Maintenance Due Date Last Done Comments [...] Group Dates [facility]/JASMIN [id number] 2019-Yessi Lucas [facility] - MEDICARE nt HMO MANAGED MEDICARE ADVANTAGE documented as of this encounter
--- OUTSIDE RECORDS SUMMARY | 2020-03-03 12:52 | XMS REPORT | Summary of Care ---
:1970 Author Organization [facility] - [facility] Address [address] [place] [address] Care Team Providers Name Role Phone Morales Quintero MD Primary Care Provider Encounter Details Date Type Department Care Team Description 01/17/2020 Orders Only [facility] Yessica Payton PA-C [address] [address] [facility] 208 [place] [phone] Allergies Active Allergy Reactions Severity Noted Date Comments Lamotrigine Rash High 04/21/2017 Alexandremarvin Cowart Minocycline Rash 04/21/2017 Sulfa (Sulfonamide Antibiotics) [...] Visit Obstetrics & Gynecology Nara Valadez MD [address] [place] [address] [place] [place] [address] [phone] 03/15/2020 Office Visit Obstetrics & Gynecology Yessica Payton PA-C 146 [facility] [place] [phone] Name Type Priority Associated Diagnoses Date/Ti me FSH-Q LAB Routine 01/17/2020 2:1 6 PM CDT ESTRADIOL-Q LAB Routine 01/17/2020 2:1 6 PM CDT Health Maintenance Due Date Last Done Comments [...] Name Priority Date/Time Associated Diagnosis Comme nts TSH, 3RD Routine 01/17/2020 2:16 PM Results for this GENERATION-Q CDT procedure are i n the results section. documented in this encounter Results TSH, 3RD GENERATION-Q (01/17/2020 2:16 PM CDT) Pathologist Sig nature TSH, 3RD 6.57 (H) mIU/L [facility] ([facility]) GENERATION-Q Comment: Reference Range > or = 20 Years 0.40-4.50 Ranges First trimester 0.26-2.66 Second trimester 0.55-2.73 Third trimester 0.43-2.91 Specimen Narrative Performed At PERFORMED BY [employer] [place]; [address] [place], [place] [facility]) [phone]; FESTUS VIEIRA MD Performing Organization Address City/State/Zipcode Phone Number [facility]) documented in this encounter Insurance Payer Benefit Plan / Subscriber ID Effective Phone Address T ype Group Dates [facility] [id number] 2019-Yessi rodgers Adv [facility] - MEDICARE nt O MANAGED MEDICARE ADVANTAGE documented as of this encounter
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
--- OUTSIDE RECORDS SUMMARY | 2020-03-03 12:53 | XMS REPORT | Summary of Care ---
:1970 Author Organization [facility] Address [address] [place] [address] Care Team Providers Name Role Phone Morales Quintero MD Primary Care Provider Reason for Visit Reason Comments Results Encounter Details Date Type Department Care Team Description 01/20/2020 Telephone [facility] Women's ValadezNara MD Results Healthcare- [address] [place] [address], Suite [facility] 20 8 208 [place] [address] [place] [address] [phone] Allergies Active Allergy Reactions Severity Noted Date Comments Lamotrigine Rash High 04/21/2017 Alexandre Cowart Minocycline Rash 04/21/2017 Sulfa (Sulfonamide Antibiotics) Rash 7 Bupropion Swelling 04/21/2017 documented as of this encounter (statuses as of 01/20/2020) Medications Medication Sig Dispensed Refills Start Date End Date Status IBUPROFEN ORAL Take by mouth. 0 Active QUEtiapine 300 mg 0 10/21/2018 A ctive tablet QUEtiapine 50 mg 0 10/21/2018 Ac tive tablet traZODONE 50 mg 0 10/02/2018 Act susanna tablet chlorhexidine (SCRUB Wash body with 960 [...] Active tabletIndications: mouth at Mixed hyperlipidemia bedtime. desog-e.estradiol/e.e Take 1 tablet by 1 Package 2 01/05/2020 Active stradiol (MIRCETTE, mouth daily. 28,) 0.15-0.02 mgx21 /0.01 mg x 5 per tabletIndications: Menorrhagia with irregular cycle, Hot flashes valACYclovir Take 1 tablet by 14 tablet 0 01/19/2020 0 Active (VALTREX) 1 gram mouth 2 (two) tablet times daily for 7 days. documented as of this encounter (statuses as of 01/20/2020) Active Problems Problem Noted Date Menorrhagia with [...] as of this encounter (statuses as of 01/20/2020) Social History Tobacco Use Types Packs/Day Years [...] Visit Obstetrics & Gynecology Nara Valadez MD [address] [place] [address] [address] [place], [place] [address] 03/15/2020 Office Visit Obstetrics & Gynecology Yessica Payton PA-C [address] [place] [address] Health Maintenance Due Date Last [...] T ype Group Dates [facility] [id number] 2019-Yessi Lucas [facility]ALTH[facility] - MEDICARE [facility] ADVANTAGE documented as of this encounter
--- OUTSIDE RECORDS SUMMARY | 2020-03-03 12:53 | XMS REPORT | Summary of Care ---
:1970 Author Organization [facility] Address [address] [place] [address] Care Team Providers Name Role Phone Morales Quintero MD Primary Care Provider Reason for Visit Reason Comments Refill Request Encounter Details Date Type Department Care Team Description 01/18/2020 Refill [facility] Women's ValadezNara MD Refill Request Healthcare- [address], Suite [facility] 20 8 208 [place] [address] [place] [address] [phone] Allergies Active Allergy Reactions Severity Noted Date Comments Lamotrigine Rash High 04/21/2017 Alexandre Cowart Minocycline Rash 04/21/2017 Sulfa (Sulfonamide Antibiotics) Rash 7 Bupropion Swelling 04/21/2017 documented as of this encounter (statuses as of 01/19/2020) Medications Medication Sig Dispensed Refills Start End Date Status Date IBUPROFEN ORAL Take by 0 Activ e mouth. QUEtiapine 300 mg 0 Ac tive tablet 9 QUEtiapine 50 mg 0 Act susanna tablet 9 traZODONE 50 mg 0 Acti ve tablet 8 chlorhexidine Wash body with 960 [...] cycle, Hot flashes valACYclovir Take 1 tablet 14 tablet 0 01/26/20 Act susanna (VALTREX) 1 gram by mouth 2 0 20 tablet (two) times daily for 7 days. valACYclovir 500 mg 0 01/19/20 Discontinued tablet 8 20 (Duplicate ) documented as of this encounter (statuses as of 01/19/2020) Active Problems Problem Noted Date Menorrhagia with [...] as of this encounter (statuses as of 01/19/2020) Social History Tobacco Use Types Packs/Day Years [...] Obstetrics & Gynecology Nara Valadez MD 146 [facility] [address] [place], [place] [address] 03/15/2020 Office Visit Obstetrics & Gynecology Yessica Payton PA-C [address] [facility] [address] [facility] 208 [place] [phone] Health Maintenance Due Date Last Done Comments [...] Effective Phone Address T ype Group Dates [facility] [id number] 2019-Yessi Lucas HEALTHCARE - MEDICARE nt O MANAGED MEDICARE ADVANTAGE documented as of this encounter
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
[2020-03-03] MEDS ORDERED: NA CHLORIDE 0.9% 1,000 ML ONE (15:07)
[2020-03-03] MEDS ORDERED: MORPHINE 4 MG/ML SYR ONE (16:02)
[2020-03-03] MEDS ORDERED: ONDANSETRON 4 MG/2 ML VIAL ONE (16:03)
[2020-03-03 16:08] LABS: Absolute Lymphocytes (CBC) 2.1 K/uL (0.7-4.9); Basophils % 0.8 % (0-1.3); Hematocrit 44.7 % (36.0-45.0); Lymphocytes % 29.8 % (15.3-44.8); MPV 9.3 fL (7.6-11.3)
[2020-03-03 16:23] LABS: ALT/SGPT 12 U/L (12-78); AST/SGOT 9 U/L (15-37); Albumin 3.3 g/dL (3.4-5.0); Alkaline Phosphatase 59 U/L (45-117); BUN Blood Urea Nitrogen 10 mg/dL (7-18); Bicarbonate 20 mmol/L (21-32); Bilirubin Direct < 0.1 mg/dL (0-0.2); Bilirubin Total 0.3 mg/dL (0.2-1.0); Glucose Level 86 mg/dL (74-106); Lipase 107 U/L (73-393); Potassium 4.3 mmol/L (3.5-5.1); Protein, Total 8.1 g/dL (6.4-8.2); Sodium Level 136 mmol/L (136-145)
[2020-03-03] MEDS ORDERED: DIPHENHYDRAMINE 50 MG/ML VIAL ONE (18:15)
[2020-03-03 18:17] LABS: Urine Blood TRACE (NEG); Urine Glucose NEGATIVE (NEG); Urine Protein NEGATIVE (NEG); Urine Specific Gravity 1.015 (1.005-1.030)
--- NOTE | 2020-03-03 18:21 | RAD REPORT ---
EXAM DESCRIPTION: CT - Abdomen Pelvis Wo Contrast - 03/03/2020 6:14 pm CLINICAL HISTORY: Abdominal pain. FLANK PAIN COMPARISON: Abdomen Pelvis W Contrast dated 11/17/2017 TECHNIQUE: CT imaging of the abdomen and pelvis was performed without contrast. Solid organ, bowel a nd vascular assessment is limited due to lack of IV and oral contrast. All CT scans are performed using dose optimization technique as appropriate and may include automated exposure control or mA/KV adjustment according to patient size. FINDINGS: The lower lung martines are clear. The liver, spleen, pancreas, adrenal glands and right kidney are within normal limits for a limited n on-contrast examination.Several left caliceal renal calculi are present the largest 7 mm. No hydronep hrosis. No bowel obstruction, free air, free fluid or abscess. The appendix is normal. The osseous structures are within normal limits.Uterus appears mildly enlarged in size which may be r elated to fibroids. IMPRESSION: Multiple left renal calculi without hydronephrosis. A limited non-contrast examination was performed as detailed.
--- NOTE | 2020-03-03 18:54 | ER ---
Nurse's Notes [facility] Name: Sadia Mcpherson Age: 49 yrs Sex: Female : 1970 Arrival Date: 03/03/2020 Time: 12:45 Bed 8 Private MD: Diagnosis: Unspecified renal colic;Urinary tract infection, site not specified Presentation: 03/03 13:38 Chief complaint: Lower back pain, lower abdominal pain,nausea, and burning with hb urination x 3 days. Coronavirus screen: Proceed with normal triage. Ebola Screen: No symptoms or risks identified at this time. Initial Sepsis Screen: Does the patient meet any 2 criteria? No. Patient's initial sepsis screen is negative. Does the patient have a suspected source of infection? No. Patient's initial sepsis screen is negative. Risk Assessment: Do you want to hurt yourself or someone else? Patient reports no desire to harm self or others. Onset of symptoms was February 29, 2020. Care prior to arrival: Medication(s) given: Motrin, 400 mg, at 1130. 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/A - control method hb Historical: - Allergies: 13:42 Lamictal; hb 13:42 Sulfa (Sulfonamide Antibiotics); hb 13:42 Tobramycin; hb 13:42 Toradol; hb 13:42 tramadol; hb 13:42 Wellbutrin; hb - Home Meds: 13:42 aspirin 81 mg Oral chew 1 tab once daily [Active]; Coreg 12.5 mg Oral tab 1 tab 2 times hb per day [Active]; levothyroxine 75 mcg tab 1 tab once daily [Active]; Seroquel 200 mg Oral tab 1 tab once daily [Active]; Simvastatin Oral [Active]; Trazodone Oral [Active]; 13:43 Mircette (28) 0.15-0.02 mgx21 /0.01 mg x 5 oral tab 1 tab once daily [Active]; hb - PMHx: 13:42 Depression; Hypertension; HYPERTHYROID; Hypothyroidism; Kidney stones; hb - Immunization history:: Adult Immunizations up to date. - Social history:: Smoking status: Patient denies any tobacco usage or history of. Screenin:25 Abuse screen: Denies threats or abuse. Nutritional screening: No deficits noted. em Tuberculosis screening: No symptoms or risk factors identified. Fall Risk None identified. Assessment: 15:20 General: Appears in no apparent distress. comfortable, Behavior is calm, cooperative, em appropriate for age, Denies fever. Pain: Complains of pain in left lower quadrant Pain currently is 9 out of 10 on a pain scale. Pain began 4 days ago. Neuro: Level of Consciousness is awake, alert, obeys commands, Oriented to person, place, time, situation, Appropriate for age. Cardiovascular: Capillary refill < 3 seconds Patient's skin is warm and dry. Respiratory: Airway is patent Respiratory effort is even, unlabored, Respiratory pattern is regular, symmetrical. GI: Abdomen is flat, Bowel sounds present X 4 quads. Abd is soft and non tender X 4 quads. : Reports burning with urination. Derm: Skin is intact, is healthy with good turgor, Skin is pink, warm \T\ dry. Musculoskeletal: Capillary refill < 3 seconds, Range of motion: intact in all extremities. 16:30 Reassessment: Patient appears in no apparent distress at this time. Patient and/or em family updated on plan of care and expected duration. Pain level reassessed. Patient is alert, oriented x 3, equal unlabored respirations, skin warm/dry/pink. 18:07 Reassessment: Patient appears in no apparent distress at this time. pt reports em itchiness and redness after morphine was given, denies shortness of breath, Dr. Miranda notified. 18:13 Reassessment: Patient appears in no apparent distress at this time. pt wheeled to CT em via wheelchair. Vital Signs: 13:38 BP 126 / 82; Pulse 78; Resp 16; Temp 99; Pulse Ox 100% on R/A; Weight 90.72 kg; Height hb 5 ft. 4 in. (162.56 cm); Pain 9/10; 14:00 BP 123 / 84; Pulse 78; Resp 18; Pulse Ox 99% on R/A; Pain 5/10; em 15:00 BP 138 / 94; Pulse 79; Resp 16; Pulse Ox 100% on R/A; em 16:00 BP 138 / 94; Pulse 71; Resp 16; Pulse Ox 99% on R/A; em 17:00 BP 137 / 84; Pulse 73; Resp 18; Pulse Ox 99% on R/A; em 13:38 Body Mass Index 34.33 (90.72 kg, 162.56 cm) hb ED Course: 12:45 Patient arrived in ED. ag5 13:40 Triage completed. hb 14:33 Domingo Miranda MD is Attending Physician. 7 14:54 Eloy Fountain, RN is Primary Nurse. em 15:25 Initial lab(s) drawn, by me, sent to lab. Inserted saline lock: 22 gauge in right em forearm, using aseptic technique. Blood collected. 15:25 Patient has correct armband on for positive identification. Placed in gown. Bed in low em position. Call light in reach. Side rails up X2. Pulse ox on. NIBP on. 15:25 Arm band placed on. em 18:14 CT Abd/Pelvis - Without Contrast In Process Unspecified. EDMS 18:50 Jannette Edwards MD is Referral Physician. 7 19:12 No provider procedures requiring assistance completed. IV discontinued, intact, em bleeding controlled, No redness/swelling at site. Pressure dressing applied. Administered Medications: 15:25 Drug: NS 0.9% 1000 ml Route: IV; Rate: 1000 ml; Site: left forearm; em 16:00 Follow up: IV Status: Completed infusion; IV Intake: 1000ml em 16:08 Drug: Zofran (Ondansetron) 4 mg Route: IVP; Site: left forearm; em 19:15 Follow up: Response: No adverse reaction em 16:10 Drug: morphine 4 mg Route: IVP; Site: right forearm; em 16:30 Follow up: Response: No adverse reaction; Marked relief of symptoms; Pain is decreased; em RASS: Alert and Calm (0) 18:08 Drug: Benadryl 25 mg Route: IVP; Site: right forearm; em 19:13 Follow up: Response: No adverse reaction; Marked relief of symptoms em Intake: 16:00 IV: 1000ml; Total: 1000ml. em Outcome: 18:50 Discharge ordered by . mh7 19:12 Discharged to home ambulatory. em 19:12 Condition: good 19:12 Discharge instructions given to patient, Instructed on discharge instructions, follow up and referral plans. medication usage, Demonstrated understanding of instructions, follow-up care, medications, Prescriptions given X 3. 19:18 Patient left the ED. em Signatures: Dispatcher [employer] Eloy Bernstein RN RN em Baxter, Heather, RN RN Joe Jane 5 Domingo Miranda MD MD mh7 Corrections: (The following items were deleted from the chart) 13:43 13:42 Home Meds: oral bc; hb hb
--- NOTE | 2020-03-03 18:54 | EDPHYS ---
Physician Documentation [facility] Name: Sadia Mcpherson Age: 49 yrs Sex: Female : 1970 Arrival Date: 03/03/2020 Time: 12:45 Bed 8 Private MD: ED Physician Domingo Miranda HPI: 03/03 16:00 This 49 yrs old Female presents to ER via Wheelchair with complaints of mh7 Abdominal Pain, Back Pain. 16:00 The patient complains of pain in the left flank. The pain radiates to the left lower mh7 abdomen. Onset: The symptoms/episode began/occurred 4 day(s) ago. Modifying factors: The symptoms are alleviated by nothing. the symptoms are aggravated by movement. Associated signs and symptoms: Pertinent positives: dysuria, Pertinent negatives: diarrhea, dizziness, fever, urinary frequency, headache, hematuria, nausea, pain radiating to the lower extremities, vomiting. The patient has experienced similar episodes in the past, several times. 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 - control method hb Historical: - Allergies: 13:42 Lamictal; hb 13:42 Sulfa (Sulfonamide Antibiotics); hb 13:42 Tobramycin; hb 13:42 Toradol; hb 13:42 tramadol; hb 13:42 Wellbutrin; hb - Home Meds: 13:42 aspirin 81 mg Oral chew 1 tab once daily [Active]; Coreg 12.5 mg Oral tab 1 tab 2 times hb per day [Active]; levothyroxine 75 mcg tab 1 tab once daily [Active]; Seroquel 200 mg Oral tab 1 tab once daily [Active]; Simvastatin Oral [Active]; Trazodone Oral [Active]; 13:43 Mircette (28) 0.15-0.02 mgx21 /0.01 mg x 5 oral tab 1 tab once daily [Active]; hb - PMHx: 13:42 Depression; Hypertension; HYPERTHYROID; Hypothyroidism; Kidney stones; hb - Immunization history:: Adult Immunizations up to date. - Social history:: Smoking status: Patient denies any tobacco usage or history of. ROS: 16:00 Constitutional: Negative for fever, chills, and weight loss, Eyes: Negative for injury, mh7 pain, redness, and discharge, ENT: Negative for injury, pain, and discharge, Neck: Negative for injury, pain, and swelling, Cardiovascular: Negative for chest pain, palpitations, and edema, Respiratory: Negative for shortness of breath, cough, wheezing, and pleuritic chest pain, MS/Extremity: Negative for injury and deformity, Skin: Negative for injury, rash, and discoloration, Neuro: Negative for headache, weakness, numbness, tingling, and seizure, Psych: Negative for depression, anxiety, suicide ideation, homicidal ideation, and hallucinations, Allergy/Immunology: Negative for hives, rash, and allergies, Endocrine: Negative for neck swelling, polydipsia, polyuria, polyphagia, and marked weight changes, Hematologic/Lymphatic: Negative for swollen nodes, abnormal bleeding, and unusual bruising. Exam: 16:00 Constitutional: This is a well developed, well nourished patient who is awake, alert, mh7 and in no acute distress. Head/Face: Normocephalic, atraumatic. Eyes: Pupils equal round and reactive to light, extra-ocular motions intact. Lids and lashes normal. Conjunctiva and sclera are non-icteric and not injected. Cornea within normal limits. Periorbital areas with no swelling, redness, or edema. Neck: Trachea midline, no thyromegaly or masses palpated, and no cervical lymphadenopathy. Supple, full range of motion without nuchal rigidity, or vertebral point tenderness. No Meningismus. Chest/axilla: Normal chest wall appearance and motion. Nontender with no deformity. No lesions are appreciated. Cardiovascular: Regular rate and rhythm with a normal S1 and S2. No gallops, murmurs, or rubs. Normal PMI, no JVD. No pulse deficits. Respiratory: Lungs have equal breath sounds bilaterally, clear to auscultation and percussion. No rales, rhonchi or wheezes noted. No increased work of breathing, no retractions or nasal flaring. 16:00 Skin: Warm, dry with normal turgor. Normal color with no rashes, no lesions, and no evidence of cellulitis. MS/ Extremity: Pulses equal, no cyanosis. Neurovascular intact. Full, normal range of motion. Neuro: Awake and alert, GCS 15, oriented to person, place, time, and situation. Cranial nerves II-XII grossly intact. Motor strength 5/5 in all extremities. Sensory grossly intact. Cerebellar exam normal. Normal gait. Psych: Awake, alert, with orientation to person, place and time. Behavior, mood, and affect are within normal limits. 16:00 Abdomen/GI: Inspection: abdomen appears normal, Bowel sounds: normal, in all quadrants, Palpation: moderate abdominal tenderness, in the left lower quadrant, Rectal exam: the exam is deferred, because of patient request, Indicators: McBurney's point is not tender, Adams's sign is negative, Rovsing's sign is negative, Obturator sign is negative, Psoas sign is negative, Liver: no appreciated palpable abnormalities, Hernia: not appreciated. 16:00 Back: pain, that is moderate, of the left flank, ROM is normal, normal spinal alignment noted, CVA tenderness, that is moderate, is noted on the left, vertebral tenderness, is not appreciated, muscle spasm, is not present. Vital Signs: 13:38 BP 126 / 82; Pulse 78; Resp 16; Temp 99; Pulse Ox 100% on R/A; Weight 90.72 kg; Height hb 5 ft. 4 in. (162.56 cm); Pain 9/10; 14:00 BP 123 / 84; Pulse 78; Resp 18; Pulse Ox 99% on R/A; Pain 5/10; em 15:00 BP 138 / 94; Pulse 79; Resp 16; Pulse Ox 100% on R/A; em 16:00 BP 138 / 94; Pulse 71; Resp 16; Pulse Ox 99% on R/A; em 17:00 BP 137 / 84; Pulse 73; Resp 18; Pulse Ox 99% on R/A; em 13:38 Body Mass Index 34.33 (90.72 kg, 162.56 cm) hb MDM: 14:49 Patient medically screened. [facility] 18:48 Differential diagnosis: nephrolithiasis, pyelonephritis, UTI. Data reviewed: vital [facility] signs, nurses notes, lab test result(s), CBC, electrolytes, urinalysis, radiologic studies, CT scan. Data interpreted: Pulse oximetry: on room air is 100 %. Interpretation: normal. Counseling: I had a detailed discussion with the patient and/or guardian regarding: the historical points, exam findings, and any diagnostic results supporting the discharge/admit diagnosis, lab results, radiology results. Response to treatment: the patient's symptoms have markedly improved after treatment. 03/04 07:40 Counseling: I had a detailed discussion with the patient and/or guardian regarding: the mh7 presence of at least one elevated blood pressure reading (>120/80) during this emergency department visit, the need for outpatient follow up, to return to the emergency department if symptoms worsen or persist or if there are any questions or concerns that arise at home. 07:41 Counseling: I had a detailed discussion with the patient and/or guardian regarding: the mh7 need for outpatient follow up, for definitive care, a urologist. 03/03 16:58 Order name: Basic Metabolic Panel; Complete Time: 17:18 [facility] 03/03 16:37 Order name: CT Abd/Pelvis - Without Contrast; Complete Time: 18:25 [facility] 03/03 16:58 Order name: Liver (Hepatic) Function; Complete Time: 17:18 [facility] 03/03 16:58 Order name: Lipase; Complete Time: 17:18 [facility] 03/03 16:58 Order name: CBC with Automated Diff; Complete Time: 17:18 [facility] 03/03 16:58 Order name: Test Serum, Qualitat; Complete Time: 17:18 [facility] 03/03 18:07 Order name: Urine Dipstick--Ancillary (enter results); Complete Time: 18:25 03/03 18:07 Order name: Urine --Ancillary (enter results); Complete Time: 18:25 03/03 14:49 Order name: IV Saline Lock; Complete Time: 15:36 [facility] 03/03 14:49 Order name: Labs collected and sent; Complete Time: 15:36 [facility] 03/03 14:49 Order name: Urine Dipstick-Ancillary (obtain specimen); Complete Time: 18:05 [facility] Administered Medications: 03/03 15:25 Drug: NS 0.9% 1000 ml Route: IV; Rate: 1000 ml; Site: left forearm; em 16:00 Follow up: IV Status: Completed infusion; IV Intake: 1000ml em 16:08 Drug: Zofran (Ondansetron) 4 mg Route: IVP; Site: left forearm; em 19:15 Follow up: Response: No adverse reaction em 16:10 Drug: morphine 4 mg Route: IVP; Site: right forearm; em 16:30 Follow up: Response: No adverse reaction; Marked relief of symptoms; Pain is decreased; em RASS: Alert and Calm (0) 18:08 Drug: Benadryl 25 mg Route: IVP; Site: right forearm; em 19:13 Follow up: Response: No adverse reaction; Marked relief of symptoms em Disposition: 03/03/20 18:50 Discharged to Home. Impression: Unspecified renal colic, Urinary tract infection, site not specified. - Condition is Stable. - Discharge Instructions: Renal Colic, Urinary Tract Infection, Adult. - Prescriptions for Pyridium 200 mg Oral Tablet - take 1 tablet by ORAL route every 8 hours for 3 days; 9 tablet. Tylenol- Codeine #3 300-30 mg Oral Tablet - take 2 tablets by ORAL route every 6 hours As needed; 20 tablet. Cipro 500 mg Oral Tablet - take 1 tablet by ORAL route every 12 hours for 7 days; 14 tablet. - Medication Reconciliation Form, Thank You Letter, Antibiotic Education, Prescription Opioid Use form. - Follow up: Private Physician; When: 2 - 3 days; Reason: Worsening of condition, Re-evaluation by your physician. Follow up: Jannette Edawrds MD; When: 2 - 3 days; Reason: Worsening of condition, Re-evaluation by your physician. - Problem is an acute exacerbation. - Symptoms have improved. Signatures: Dispatcher [employer] Eloy Bernstein RN RN Calli Lemus RN RN hb Holmes, Maurice, MD MD mh7 Corrections: (The following items were deleted from the chart) 13:43 13:42 Home Meds: oral bc; hb hb 18:02 17:04 BASIC METABOLIC PANEL+C.LAB.BRZ ordered. EDAZ EDAZ 18:02 17:04 CBC+H.LAB.BRZ ordered. [facility] EDAZ 18:02 17:04 HEPATIC FUNCTION+C.LAB.BRZ ordered. [facility] EDAZ 18:02 17:04 LIPASE+C.LAB.BRZ ordered. [facility] EDAZ 18:02 17:04 TEST, SERUM+SC.LAB.BRZ ordered. [facility] EDAZ 19:18 18:50 03/03/2020 18:50 Discharged to Home. Impression: Unspecified renal colic; Urinary em tract infection, site not specified. Condition is Stable. Forms are Medication Reconciliation Form, Thank You Letter, Antibiotic Education, Prescription Opioid Use. Follow up: Private Physician; When: 2 - 3 days; Reason: Worsening of condition, Re-evaluation by your physician. Follow up: Jannette Edwards; When: 2 - 3 days; Reason: Worsening of condition, Re-evaluation by your physician. Problem is an acute exacerbation. Symptoms have improved. mh7
[2020-03-03 19:36] VITALS: TEMP 99
[2020-03-03 19:43] VITALS: O2SAT 99
[2020-03-03 19:44] VITALS: BP 137/84
== END 2020-03-03 19:18 | disposition home or self-care (01) ==
LOC: ER 12:43
DX: N39.0 Urinary tract infection, site not specified (principal); N23 Unspecified renal colic; I10 Essential (primary) hypertension; F32.9 Major depressive disorder, single episode, unspecified; E03.9 Hypothyroidism, unspecified; Z79.82 Long term (current) use of aspirin; Z87.442 Personal history of urinary calculi; Z88.2 Allergy status to sulfonamides; Z88.5 Allergy status to narcotic agent; Z88.8 Allergy status to other drugs, medicaments and biological substances
CPT/HCPCS: 85025; 80048; 36415; 84703; 81025; 80076; 81003; 83690; 74176; 99284; J1200; J7030; J2405

== ENCOUNTER 2020-08-30 22:15 | Observation (INO) | payer MEDICARE ==
--- OUTSIDE RECORDS SUMMARY | 2020-08-30 22:18 | XMS REPORT | Summary of Care ---
:1970 Author Organization [facility] Address [address] [place] [address] Care Team Providers Name Role Phone Morales Quintero MD Primary Care Provider Reason for Visit Reason Comments Refill Request Encounter Details Date Type Department Care Team Description 06/12/2020 Refill [facility] Pilar Ramsay MD Refill Request - [address] [place] [address] [place] [address] [phone] Allergies Active Allergy Reactions Severity Noted Date Comments Doxycycline Monohydrate Unknown - See comments 900 Lamotrigine Rash High 04/21/2017 Alexandre Cowart Minocycline Rash 04/21/2017 Sulfa (Sulfonamide Rash 04/21/2017 Antibiotics) Tobramycin Unknown - See comments Bupropion Swelling 04/21/2017 documented as of this encounter (statuses as of 06/12/2020) Medications Medication Sig Dispensed Refills Start End Status Date Date IBUPROFEN ORAL Take by mouth. 0 Active QUEtiapine 300 mg 0 Ac tive tablet 9 QUEtiapine 50 mg 0 Act susanna tablet 9 traZODONE 50 mg 0 Acti ve tablet 8 chlorhexidine Wash body with 960 mL 0 A ctive (SCRUB product daily 9 CHLORHEXIDINE GLUCONATE) 4 % external liquidIndications: Staph skin infection mupirocin 2 % Apply topically 22 g 1 Active ointmentIndications TID to affected 9 : Staph skin skin and to infection both nares BID x 5 days metFORMIN 500 mg Take 500 mg by 0 Active tablet mouth daily before a meal. Levothyroxine 88 Take by mouth. 0 Active mcg capsule traMADol 50 mg Take 1 tablet 20 tablet 0 A ctive tabletIndications: by mouth every 0 Acute midline low 6 (six) hours back pain without as needed for sciatica Pain (scale 4-6). DULoxetine 30 mg Take 30 mg by 0 Active capsule mouth daily. meloxicam 7.5 mg Take 1 tablet 60 tablet 3 Active tabletIndications: by mouth 2 0 Chronic midline low (two) times back pain with daily with bilateral sciatica meals as needed for Pain (scale 4-6). cyclobenzaprine 10 Take 1 tablet 90 tablet 3 Active mg by mouth 3 0 tabletIndications: (three) times Chronic midline low daily as needed back pain with for Muscle bilateral sciatica Spasms. pregabalin (LYRICA) Take 1 capsule 60 capsule 2 Active 50 mg by mouth 2 0 capsuleIndications: (two) times Chronic midline low daily. back pain with bilateral sciatica aspirin 81 mg Take 81 mg by 0 Ac tive chewable tablet mouth daily. miconazole Insert 1 3 Suppository 0 Activ e (MICONAZOLE 3) 200 Suppository 0 mg vaginal into vagina at suppositoryIndicati bedtime. ons: Suzi vaginitis valACYclovir Take 1 tablet 10 tablet 2 Act susanna (VALTREX) 500 mg by mouth 2 0 tabletIndications: (two) times Herpes, vulvar daily. desog-e.estradiol/e Take 1 tablet 28 tablet 2 Active .estradiol by mouth daily. 0 (VIORELE, 28,) 0.15-0.02 mgx21 /0.01 mg x 5 per tabletIndications: Menorrhagia with irregular cycle, Hot flashes Nitrofurantoin&Nit. Take 1 capsule 10 capsule 0 09/0 5/2 Active Macrocryst by mouth 2 0 020 (MACROBID) 100 mg (two) times capsuleIndications: daily for 5 Acute cystitis with days. hematuria phenazopyridine Take 2 tablets 18 tablet 0 Active (PYRIDIUM) 100 mg by mouth 3 0 020 tabletIndications: (three) times Dysuria, Acute daily for 3 cystitis with days. hematuria SIMVASTATIN 20 mg TAKE ONE TABLET 30 tablet 0 Active tabletIndications: BY MOUTH EVERY 0 Mixed NIGHT AT hyperlipidemia BEDTIME CARVEDILOL 25 mg TAKE ONE TABLET 60 tablet 0 Active tabletIndications: BY MOUTH TWICE 0 Essential A DAY hypertension CARVEDILOL 25 mg TAKE ONE TABLET 60 tablet 0 Discontinued tabletIndications: BY MOUTH TWICE 0 020 Essential A DAY hypertension Hospital, Clinic, or Ordered Dose Route Frequency Start Date End D ate Status Other Facility Administered Medication lactated ringers IV 1000 mL IV Infusion CONTINUOUS 04/11/2020 Active infusion 1,000 mL documented as of this encounter (statuses as of 06/12/2020) Active Problems Problem Noted Date Lumbar spondylosis 04/11/2020 Overview: Added automatically from request for nikki santillan [id number] Menorrhagia with irregular cycle 12/09/2019 Obesity (BMI [...] as of this encounter (statuses as of 06/12/2020) Social History Tobacco Use Types Packs/Day Years Used Date Never Smoker Smokeless Tobacco: Never Used Alcohol Use Drinks/Week oz/Week Comments No Sex Assigned at Date Recorded Not on file COVID-19 Exposure Response Date Recorded In the last month, have you been in contact with No / Unsure 06/11/2020 2:38 PM CDT someone who was confirmed or suspected to have Coronavirus / COVID-19? documented as of this encounter Last Filed Vital Signs Not on filedocumented in this encounter Plan of Treatment Date Type Specialty Care Team Description 06/14/2020 Office Visit Family Medicine Germaine Quintero MD [address] [place], [place] [address] 08/03/2020 Office Visit Pain Medicine Eliezer Colbert MD [address] [place], [place] [address] 08/09/2020 Office Visit Obstetrics & Gynecology Margie Villarreal MD [address] [facility] [place] [phone] Health Maintenance Due Date Last Done Comments DTaP,Tdap,and Td Vaccines 1989 (1 - Tdap) INFLUENZA VACCINE (#1) 2020 Colorectal Cancer Screening 2020 Depression Screening 12/01/2020 12/01/2019 PAP SMEAR 12/01/2020 12/01/2019, 11/12/2019, 10/28/2018, Additional [...] Effective Phone Address T ype Group Dates [employer]/JASMIN [id number] 2019-Yessi Lucas [facility] - MEDICARE nt O MANAGED MEDICARE ADVANTAGE documented as of this encounter
--- OUTSIDE RECORDS SUMMARY | 2020-08-30 22:18 | XMS REPORT | Continuity of Care Document ---
:1970 Author Organization [facility] t Address [address] [place] [address] Dr. [address]. [address] [place] [address] Care Team Providers Name Role Phone Leon EID, A Attending Clinician Problems This patient has no known problems. Allergies, Adverse Reactions, Alerts This patient has no known allergies or adverse reactions. Medications This patient has no known medications. Procedures This patient has no known procedures. Encounters Start End Encounter Admission Attending Care Care Encounter Source Date/Time Date/Time Type Type Clinicians Facility Department ID 2020-08-29 2020-08-29 Telephone MONIK Quintero [id number] 00:00:00 00:00:00 [place] [id number] [place] [id number] Vinnie [id number] nal [address] Results This patient has no known results.
--- OUTSIDE RECORDS SUMMARY | 2020-08-30 22:18 | XMS REPORT | Summary of Care ---
:1970 Author Organization [facility] Address [address] [place] [address] Care Team Providers Name Role Phone Morales Brar Primary Care Provider Reason for Visit Reason Comments Results Encounter Details Date Type Department Care Team Description 06/14/2020 Telephone [facility] Family Medicine Esther Dior PA Results - [address] [place] [address] Dr [facility] [place] [address] [place] [address] [phone] Allergies Active Allergy Reactions Severity Noted Date Comments Doxycycline Monohydrate Unknown - See comments 900 Lamotrigine Rash High 04/21/2017 Alexandre Cowart Minocycline Rash 04/21/2017 Sulfa (Sulfonamide Rash 04/21/2017 Antibiotics) Tobramycin Unknown - See comments Bupropion Swelling 04/21/2017 documented as of this encounter (statuses as of 06/15/2020) Medications Medication Sig Dispensed Refills Start Date [...] mcg Take by mouth. 0 Active capsule traMADol 50 mg Take 1 tablet by 20 tablet 0 03/20/2020 Active tabletIndications: mouth every 6 Acute midline low (six) hours as back pain without needed for Pain sciatica (scale 4-6). DULoxetine 30 mg Take 30 mg by 0 Active capsule mouth daily. meloxicam 7.5 mg Take 1 tablet by 60 tablet 3 04/10/2020 Active tabletIndications: mouth 2 (two) Chronic midline low times daily with back pain with meals as needed bilateral sciatica for Pain (scale 4-6). cyclobenzaprine 10 mg Take 1 tablet by 90 tablet 3 04/10/2020 Active tabletIndications: mouth 3 (three) Chronic midline low times daily as back pain with needed for bilateral sciatica Muscle Spasms. pregabalin (LYRICA) Take 1 capsule 60 capsule 2 04/10/2020 Active 50 mg by mouth 2 (two) capsuleIndications: times daily. Chronic midline low back pain with bilateral sciatica aspirin 81 mg Take 81 mg by 0 Ac tive chewable tablet mouth daily. miconazole Insert 1 3 Suppository 0 05/15/2020 Acti ve (MICONAZOLE 3) 200 mg Suppository into vaginal vagina at suppositoryIndication bedtime. s: Suzi vaginitis valACYclovir Take 1 tablet by 10 tablet 2 05/18/2020 Active (VALTREX) 500 mg mouth 2 (two) tabletIndications: times daily. Herpes, vulvar desog-e.estradiol/e.e Take 1 tablet by 28 tablet 2 05/22/2020 Active stradiol (VIORELE, mouth daily. 28,) 0.15-0.02 mgx21 /0.01 mg x 5 per tabletIndications: Menorrhagia with irregular cycle, Hot flashes Nitrofurantoin&Nit. Take 1 capsule 10 capsule 0 06/11/2020 Active Macrocryst (MACROBID) by mouth 2 (two) 0 100 mg times daily for capsuleIndications: 5 days. Acute cystitis with hematuria SIMVASTATIN 20 mg TAKE ONE TABLET 30 tablet 0 06/12/2020 Active tabletIndications: BY MOUTH EVERY Mixed hyperlipidemia NIGHT AT BEDTIME CARVEDILOL 25 mg TAKE ONE TABLET 60 tablet 0 06/12/2020 Active tabletIndications: BY MOUTH TWICE A Essential DAY hypertension Hospital, Clinic, or Ordered Dose Route Frequency Start Date End D ate Status Other Facility Administered Medication lactated ringers IV 1000 mL IV Infusion CONTINUOUS 04/11/2020 Active infusion 1,000 mL documented as of this encounter (statuses as of 06/15/2020) Active Problems Problem Noted Date Lumbar spondylosis 04/11/2020 Overview: Added automatically from request for nikki santillan [id number] Menorrhagia with irregular cycle 12/09/2019 Obesity (BMI [...] as of this encounter (statuses as of 06/15/2020) Social History Tobacco Use Types Packs/Day Years [...] Signs Not on filedocumented in this encounter Miscellaneous Notes Telephone Encounter - Karina Arreguin LVN - 06/15/2020 2:00 PM CDTPatient contacted and notified of the urine culture results, she is better since taking the Macrobid. elephone Encounter - Destinee Alaniz FNP - 06/15/2020 9:40 AM CDTI saw and treated her for UTI with antibiotics, which lab is she referring to? The rest of the labs done recently were done by [facility]. If she is still having urinary symptoms, she needs to follow up with [facility] because her UA was unremarkable. elephone Encounter - Karina Arreguin LVN - 06/15/2020 9:29 AM Bhakti melvin . Katty saw this patient in urgent care will redirect to the provider. Will you please r donna and result she is calling, thanks. elephone Encounter - Esther Brar PA - 06/15/2020 9:05 AM CDTI have not seen patient in about 6 months elephone Encounter - Karina Arreguin LVN - 06/15/2020 8:40 AM CDTPt calling for lab results only lab lately is UC, please review, thanks. elephone Encounter - Hilda Flores - 06/14/2020 2:19 PM CDTPatient is calling for her lab results and is requesting a call back. documented in this encounter Plan of Treatment Date Type Specialty Care Team Description 08/03/2020 Office Visit Pain Medicine Eliezer Colbert MD [address] [place] [address] 08/09/2020 Office Visit Obstetrics & Gynecology Margie Villarreal MD [address] [place] [phone] Health Maintenance Due Date Last Done [...] ID Effective Phone Address T ype Group [facility]/JASMIN [id number] 2019-Yessi Lucas [facility] documented as of this encounter
--- OUTSIDE RECORDS SUMMARY | 2020-08-30 22:18 | XMS REPORT | Summary of Care ---
:1970 Author Organization [facility] Address [address] [place] [address] Care Team Providers Name Role Phone Morales Quintero MD Primary Care Provider Reason for Visit Reason Comments Refill Request Encounter Details Date Type Department Care Team Description 06/12/2020 Refill [facility] Sanaz rahman, KULWINDER Morel Refill Request - [address] [place] [address] [place] [address] [place] [address] [phone] Allergies Active Allergy Reactions Severity Noted Date [...] tabletIndications: Menorrhagia with irregular cycle, Hot flashes CARVEDILOL 25 mg TAKE ONE TABLET 60 tablet 0 Active tabletIndications: BY MOUTH TWICE 0 Essential A DAY hypertension Nitrofurantoin&Nit. Take 1 capsule 10 capsule 0 [...] EVERY 0 Mixed NIGHT AT hyperlipidemia BEDTIME simvastatin 20 mg Take 1 tablet 90 tablet 1 Discontinued tabletIndications: by mouth at 0 020 Mixed bedtime. hyperlipidemia Hospital, Clinic, or Ordered Dose Route Frequency Start Date End D ate Status Other Facility Administered Medication lactated ringers IV 1000 mL IV Infusion CONTINUOUS 04/11/2020 Active infusion 1,000 mL documented as of this encounter (statuses as of 06/12/2020) Active Problems Problem Noted Date Lumbar spondylosis 04/11/2020 Overview: Added automatically from request for nikki santillan [id number] Menorrhagia with irregular cycle 12/09/2019 Obesity (BMI [...] Colbert MD [address] [place] [address] 08/09/2020 Office Visit Obstetrics & Gynecology Margie Villarreal MD [address] [place] [phone] Health Maintenance Due Date Last Done [...] Effective Phone Address T ype Group Dates [employer]/JASMIN [id number] 2019-[facility]essi [facility] - MEDICARE nt HMO MANAGED MEDICARE ADVANTAGE documented as of this encounter
--- OUTSIDE RECORDS SUMMARY | 2020-08-30 22:18 | XMS REPORT | Summary of Care ---
:1970 Author Organization [facility] - [facility] Address [address] [place] [id number] Care Team Providers Name Role Phone Morales Quintero MD Primary Care Provider Reason for Visit Reason Comments DYSURIA LOW BACK PAIN Suprapubic Pain x 4-5 days Encounter Details Date Type Department Care Team Description 06/11/2020 Urgent Care [facility] Family Siddharth Alaniz, [employer] DES[employer] [address] [id number] Dysuria (Primary Dx); Medicine - [place] Provider, [facility] Acute cystitis with hematuria [address] [place] [phone] Allergies Active Allergy Reactions Severity Noted Date Comments Doxycycline Monohydrate Unknown - See comments 900 Lamotrigine Rash High 04/21/2017 Alexandre Cowart Minocycline Rash 04/21/2017 Sulfa (Sulfonamide Rash 04/21/2017 Antibiotics) Tobramycin Unknown - See comments Bupropion Swelling 04/21/2017 documented as of this encounter (statuses as of 06/11/2020) Medications Medication Sig Dispensed Refills Start Date [...] mcg Take by mouth. 0 Active capsule simvastatin 20 mg Take 1 tablet by 90 tablet 1 11/30/2019 Active tabletIndications: mouth at Mixed hyperlipidemia bedtime. traMADol 50 mg Take 1 tablet by [...] mg TAKE ONE TABLET 60 tablet 0 05/23/2020 Active tabletIndications: BY MOUTH TWICE A Essential DAY hypertension Nitrofurantoin&Nit. Take 1 capsule 10 capsule 0 06/11/2020 Active Macrocryst (MACROBID) by mouth 2 (two) 0 100 mg times daily for capsuleIndications: 5 days. Acute cystitis with hematuria phenazopyridine Take 2 tablets 18 tablet 0 06/11/2020 06/14/20 2 Active (PYRIDIUM) 100 mg by mouth 3 0 tabletIndications: (three) times Dysuria, Acute daily for 3 cystitis with days. hematuria Hospital, Clinic, or Ordered Dose Route Frequency Start Date End D ate Status Other Facility Administered Medication lactated ringers IV 1000 mL IV Infusion CONTINUOUS 04/11/2020 Active infusion 1,000 mL documented as of this encounter (statuses as of 06/11/2020) Active Problems Problem Noted Date Lumbar spondylosis 04/11/2020 Overview: Added automatically from request for nikki santillan [id number] Menorrhagia with irregular cycle 12/09/2019 Obesity (BMI [...] as of this encounter (statuses as of 06/11/2020) Social History Tobacco Use Types Packs/Day Years [...] Sign Reading Time Taken Comments Blood Pressure 128/89 06/11/2020 2:47 PM CDT Pulse 79 06/11/2020 2:47 PM CDT Temperature 36.6 C (97.9 F) 06/11/2020 2:47 PM CDT Respiratory Rate 17 06/11/2020 2:47 PM CDT Oxygen Saturation 98% 06/11/2020 2:47 PM CDT Inhaled Oxygen Concentration - - Weight 97.5 kg (215 lb) 06/11/2020 2:47 PM CDT Height 162.6 cm (5' 4") 06/11/2020 2:47 PM CDT Body Mass Index 36.9 06/11/2020 2:47 PM CDT documented in this encounter Patient Instructions Patient InstructionsDestinee Alaniz FNP - 06/11/2020 2:20 PM CDT Patient Education Bladder Infection,Female (Adult) Urine normally doesn't have any germs (bacteria) in it. But bacteria can get into the urinary tract from the skin around the rectum. Or they can travel in the blood from other parts of the body. Once they are in your urinary tract, they can cause infection in these areas: The urethra (urethritis) The bladder (cystitis) The kidneys (pyelonephritis) The most common place for an infection is in the bladder. This is called a bladder infection. This is one of the most common infections in women. Most bladder infections are easily treated. They are not serious unless the infection spreads to the kidney. The terms bladder infection, UTI, and cystitis are often used to describe the same thing. But they are not always the same. Cystitis is an inflammation of the bladder. Themost common cause of cystitis is an infection. Symptoms The infection causes inflammation in the urethra and bladder. This causes many of the symptoms. The most common symptoms of a bladder infection are: Pain or burning when urinating Having to urinate more often than normal Urgent need to urinate Only a small amount of urine comes out Blood in urine Belly (abdominal) discomfort. This is often in the lower belly above the pubic bone. Cloudy urine Strong- or bad-smelling urine Unable to urinate (urinary retention) Unable to hold urine in (urinary incontinence) Fever Loss of appetite Confusion (in older adults) Causes Bladder infections are not contagious. You can't get one from someone else, from a toilet seat, or from sharing a bath. The most common cause of bladder infections is bacteria from the bowels. The bacteria get onto the skin around the opening of the urethra. From there, they can get into the urine. Then they travel up to the bladder, causing inflammation and infection. This often happens because of: Wiping incorrectly after urinating. Always wipe from front to back. Bowel incontinence Procedures such as having a catheter put in Older age Not emptying your bladder. This can give bacteria a chance to grow in your urine. Fluid loss (dehydration) Constipation Having sex Using a diaphragm for control Treatment Bladder infections are diagnosed by a urine test and urine culture. They are treated with antibiotics. They oftenclear up quickly without problems. Treatment helps prevent a more serious kidney infection. Medicines Medicines can help in the treatment of a bladder infection: Take antibiotics until they are used up, even if you feel better. It's important to finish them to make sure the infection has cleared. You can use acetaminophen or ibuprofen for pain, fever, or discomfort, unless another medicine was prescribed. If you have long-term (chronic) liver or kidney disease, talk with your healthcareprovider before usingthese medicines. Also talk with your provider if you've ever had a stomach ulcer or GI (gastrointestinal) bleeding, or are taking blood-thinner medicines. If you are givenphenazopydridine to reduce burning with urination, it will make your urine a bright orange color. This can stain clothing. Care and prevention These self-care steps can help prevent future infections: Drink plenty of fluids. This helps to prevent dehydration and flush out your bladder. Do thisunless you must restrict fluids for other health reasons, or your healthcare provider told you not to. Clean yourself correctly after going to the bathroom. Wipe from front to back after using the toilet. This helps prevent the spread of bacteria. Urinate more often. Don't try to hold urine in for a long time. Wear loose-fitting clothes and cotton underwear. Don't wear tight-fitting pants. Improve your diet and prevent constipation. Eat more fresh fruits and vegetables, andfiber. Eatless junk foods and fatty foods. Don't have sex until your symptoms are gone. Don't have caffeine, alcohol, and spicy foods. These can irritate your bladder. Urinate right after you have sex to flush out your bladder. If you use control pills and have frequent bladder infections, discuss it with your healthcare provider. Follow-up care Call your healthcare provider if all symptoms are not gone after 3 days of treatment. This is especially important if you have repeat infections. If a culture was done, you will be told if your treatment needs to be changed. If directed, you can callto find out the results. If X-rays were done, you will be told if the results will affect yourtreatment. Call 911 Call 911 if any of the following occur: Trouble breathing Hard to wake up orconfusion Fainting (loss of consciousness) Fast heart rate When to get medical advice Call your healthcare provider right away if any of these occur: Fever of 100.4F (38.0C) or higher, or as directed by your healthcare provider Symptoms are not betterafter 3 days of treatment Back or belly pain that gets worse Repeated vomiting, or unable to keep medicine down Weakness or dizziness Vaginal discharge Pain, redness, or swelling in the outer vaginal area (labia) [employer] last reviewed this educational content on 08/12/201919993544-4877 [employer]. [address] [place] [address], [place] [address]. All rights reserved. This information is not intended as a substitute for professional medical care. Always follow your healthcare professional's instructions. Patient Education When to Use Antibiotics Antibiotics are medicines used to treat infections caused by bacteria. They dont work for an illness caused by a virus. And they don't work for an allergic reaction. In fact, taking antibiotics for reasons other than an infection by bacteria can cause problems. You may have side effects from the med icine. And if you need an antibiotic in the future, it may not work well. This is because the bacteria can become immune to the medicine. You can also get a type of diarrhea that's hard to treat. This diarrhea is called C. diff. When antibiotics likely wont help Your healthcare provider wont usually give you antibiotics for the conditions listed below. You can help by not asking for them if you have: A cold. This type of illness is caused by a virus. It can cause a runny nose, stuffed-up nose, sneezing, coughing, and headache. You may also have mild body aches and low fever. A cold gets better on its own in a few days to a week. The flu (influenza). This is a respiratory illness caused by a virus. The flu usually goes away on its own in a week or so. It can cause fever, body aches, sore throat, and tiredness. Bronchitis. This is an infection in the lungs. It is most often caused by a virus. You may have coughing, phlegm, body aches, and a low fever. A common type of bronchitis is known as a chest cold. This is called acute bronchitis. This often happens after you have a respiratory infection like a cold. Bronchitis can take weeks to go away. Antibiotics often dont help. Most sore throats. Sore throats are most often caused by viruses. Your throat may feel scratchy or achy. It may hurt to swallow. You may also have a low fever and body aches. A sore throat usually gets better in a few days. Most outer ear infections. An ear infection may be caused by a virus or bacteria. It causes pain in the ear. Antibiotics by mouth usually dont help. Low-dose antibiotic ear drops work much better. Some inner ear infections. An inner ear infection (otitis media) can be caused by a virus in the ear. It can also cause pain and a high fever. Most older children with low-grade fever don't need to be treated with antibiotics. Most sinus infections. This is also known as sinusitis. This kind of infection causes sinus pain and swelling, and a runny nose. In most cases, it goes away on its own. Antibiotics dont make recovery quicker. Allergic rhinitis. This is a set of symptoms caused by an allergic reaction. You may have sneezing, a runny nose, itchy or watery eyes, or a sore throat. Allergies are not treated with antibiotics. Low fever. A mild fever thats less than 100.4F (38C) most likely doesnt need to be treated with antibiotics. When antibiotics can help Antibiotics can be used to treat: Strep throat. This is a throat infection caused by a certain type of bacteria. Symptoms of strep throat include a sore throat, white patches on the tonsils, red spots on the roof of the mouth, fever, body aches, and nausea and vomiting. Strep throat almost never causes a cough. Urinary tract infection (UTI). This is an infection of the bladder and the tube that takes urine out of the body. It is caused by bacteria. It can cause burning pain and urine thats cloudy or tinted with blood. UTIs are very common. Antibiotics usually help treat them. Some outer ear infections. In some cases, a healthcare provider may prescribe antibiotics by mouth for an ear infection. You may need a test to show the cause of the ear infection. Some sinus infections. In some cases, your healthcare provider may give you antibiotics. He or she may first need to make sure your symptoms arent caused by something else. This may be a virus, fungus, allergies, or air pollutants such as smoke. Your healthcare provider may give you antibiotics if you have a condition that can affect your immune system. This includes diabetes or cancer. Self-care at home If your infection cant be treated with antibiotics, you can take other steps to feel better. Try the remedies below. In general: Rest and sleep as much as needed. Drink water and other clear fluids. Dont smoke. Stay away from smoke from other people. Use hgbu-ovx-azfumki medicine such as acetaminophen or ibuprofen to ease pain or fever, as directed by your healthcare provider. To treat sinus pain or nasal stuffiness: Put a warm, moist cloth on your face where you feel sinus pain or pressure. Try a nasal spray with medicine or saline. Use as directed by your healthcare provider. Breathe in steam from a hot shower. Use a humidifier or cool mist vaporizer. To quiet a cough: Use a humidifier or cool mist vaporizer. Breathe in steam from a hot shower. Suck on cough lozenges. To sooth a sore throat: Suck on ice chips, frozen ice pops, or lozenges. Use a sore throat spray. Use a humidifier or cool mist vaporizer. Gargle with saltwater. Drink warm liquids. Take ibuprofen to reduce swelling and pain. To ease ear pain: Hold a warm, moist washcloth on the ear for 10 minutes at a time. [employer] last reviewed this educational content on 09/11/201919995592-9716 [employer]. [address] [place] [address], [place] [address]. All rights reserved. This information is not intended as a substitute for professional medical care. Always follow your healthcare professional's instructions. documented in this encounter Progress Notes Destinee Alaniz FNP - 06/11/2020 2:20 PM CDT Cc: Chief Complaint Patient presents with DYSURIA LOW BACK PAIN Suprapubic Pain x 4-5 days Sadia Mcpherson is a 49 year old female. Patient is here with urinary symptoms as detailed below. URINARY TRACT INFECTION Patient presents to clinic today with complaints of dysuria, frequency and urgency. This is a new problem. The current episode started in the past 7 days. The problem is unchanged. Her pain is at a severity of 4/10. The pain is mild. Patient describes pain as burning. There has been no fever. Fever has been present for 3 to 4 days. She describes her urine color as yellow. Obstructive symptoms do not include dribbling, incomplete emptying, a slower stream, straining or a weak stream. Associated symptoms include abdominal pain (suprapubic ) and possible . Pertinent negatives include no nausea or vomiting. She has tried increased fluids and NSAIDs for the symptoms.The treatment provided mild relief. Her sexual activity is non-contributory to the current illness. There is no history of recurrent UTIs. Allergies Sadia is allergic to lamictal [lamotrigine]; doxycycline monohydrate; minocycline; sulfa (sulfonamide antibiotics); tobramycin; and wellbutrin [bupropion]. Medications Outpatient Medications Prior to Visit Medication Sig Dispense Refill CARVEDILOL 25 mg tablet TAKE ONE TABLET BY MOUTH TWICE A DAY 60 tablet 0 desog-e.estradiol/e.estradiol (VIORELE, 28,) 0.15-0.02 mgx21 /0.01 mg x 5 per tablet Take 1 tablet by mouth daily. 28 tablet 2 cyclobenzaprine 10 mg tablet Take 1 tablet by mouth 3 (three) times daily as needed for Muscle Spasms. 90 tablet 3 valACYclovir (VALTREX) 500 mg tablet Take 1 tablet by mouth 2 (two) times daily. 10 tablet 2 miconazole (MICONAZOLE 3) 200 mg vaginal suppository Insert 1 Suppository into vagina at bedtime. 3 Suppository 0 aspirin 81 mg chewable tablet Take 81 mg by mouth daily. DULoxetine 30 mg capsule Take 30 mg by mouth daily. meloxicam 7.5 mg tablet Take 1 tablet by mouth 2 (two) times daily with meals as needed for Pain(scale 4-6). 60 tablet 3 pregabalin (LYRICA) 50 mg capsule Take 1 capsule by mouth 2 (two) times daily. 60 capsule 2 traMADol 50 mg tablet Take 1 tablet by mouth every 6 (six) hours as needed for Pain (scale 4-6).20 tablet 0 Levothyroxine 88 mcg capsule Take by mouth. [...] mg tablet IBUPROFEN ORAL Take by mouth. Facility-Administered Medications Prior to Visit Medication Dose Route Frequency Provider Last Rate Last Dose lactated ringers IV infusion 1,000 mL 1,000 mL IV Infusion CONTINUOUS Lui Wu MD Histories Past Medical History: Diagnosis Date Abnormal uterine bleeding Anemia Anxiety Cervical high risk human papillomavirus (HPV) DNA test positive 03/02/2019 Depression Endometriosis Female infertility Genital herpes Hormone disorder Hypertension Insomnia Kidney disease kidney stones several times Leiomyoma of uterus Lumbar spondylosis 04/11/2020 Prediabetes Staph skin infection Thyroid disease Trauma [...] Financial resource strain: Not on file Food insecurity Worry: Not on file Inability: Not on file Transportation needs Medical: Not on file Non-medical: Not on file Tobacco Use Smoking status: Never Smoker Smokeless tobacco: Never Used Substance and Sexual Activity Alcohol use: No Drug use: No Sexual activity: Yes Partners: Male control/protection: None Lifestyle Physical activity Days per week: Not on file Minutes per session: Not on file Stress: Not on file Relationships Social connections Talks on phone: Not on file Gets together: Not on file Attends faith service: Not on file Active member of club or organization: Not on file Attends meetings of clubs or organizations: Not on file Relationship status: Not on file Intimate partner violence Fear of current or ex partner: Not [...] NoFHx Osteoporosis NoFHx Review of Systems Constitutional: Negative. Respiratory: Negative. Negative for apnea, cough, choking, chest tightness, shortness of breath andwheezing. Cardiovascular: Negative. Negative for chest pain, palpitations and leg swelling. Gastrointestinal: Positive for abdominal pain (suprapubic ). Negative for nausea and vomiting. Genitourinary: Negative for incomplete emptying. Skin: Negative. Neurological: Negative. Endocrine: Endocrine negative Vital Signs BP 128/89 | Pulse 79 | Temp 36.6 C (97.9 F) (Oral) | Resp 17 | Ht 5' 4" (1.626 m) | Wt 215 lb (97.5 kg) | SpO2 98% | BMI 36.90 kg/m Physical Exam Vitals signs and nursing note reviewed. Constitutional: Appearance: She is well-developed. HENT: Head: Normocephalic. Right Ear: External ear normal. Left Ear: External ear normal. Nose: Nose normal. Neck: Musculoskeletal: Normal range of motion and neck supple. Cardiovascular: Rate and Rhythm: Normal rate and regular rhythm. Heart sounds: Normal heart sounds. No murmur. No friction rub. No gallop. Pulmonary: Effort: Pulmonary effort is normal. No respiratory distress. Breath sounds: Normal breath sounds. No wheezing or rales. Chest: Chest wall: No tenderness. Abdominal: General: Bowel sounds are normal. There is no distension. Palpations: Abdomen is soft. Tenderness: There is abdominal tenderness in the suprapubic area. There is left CVA tenderness. Skin: General: Skin is warm and dry. Capillary Refill: Capillary refill takes less than 2 seconds. Coloration: Skin is not pale. Findings: No erythema or rash. Neurological: Mental Status: She is alert and oriented to person, place, and time. Assessment/Plan 1. Dysuria: POCT UA done and showed some blood but nothing significant, thus will send for culture. 2. UTI: will treat empirically based on her symptoms. Increase fluids, namely water. UCx is pending. Discussed ways of decreasing the risk of future UTIs including wiping from front to back, increasing intake of water, emptying the bladder at regular intervals/avoiding holding urine for prolonged periods of time, and urinating after sexual intercourse. Plan of care, desired health behaviors, goals, and medication discussed with patient. Education resources provided and reviewed with AVS. Patient/guardian/family verbalized understanding & agrees to plan of care. This visit did not involve counseling and coordination that comprised more than 50% of the visit time. If applicable, the [place] [employer] SU[employer] TECHNICIAN database was accessed to review any controlled substance prescription claims data. The [employer] prescription claims data in [place] was reviewed to assess patient compliance with the medication treatment plan. Verna Le RN - 06/11/2020 2:20 PM CDT Sadia Mcpherson is a 49 year old female Chief Complaint Patient presents with DYSURIA LOW BACK PAIN Suprapubic Pain x 4-5 days Vitals: 06/11/20 1447 BP: 128/89 Pulse: 79 Resp: 17 Temp: 36.6 C (97.9 F) TempSrc: Oral SpO2: 98% Weight: 215 lb (97.5 kg) Height: 5' 4" (1.626 m) [place] [id number] Patient AAOx4 and in no acute distress. All Vitals taken, allergies and all medications reviewed, fall risk assessed. Pain level 5. documented in this encounter Plan of Treatment Date Type Specialty Care Team Description 08/03/2020 Office Visit Pain Medicine Eliezer Colbert MD [address] [place] [phone] 08/09/2020 Office Visit Obstetrics & Gynecology Margie Villarreal MD [address] [place] [address] [phone] Name Type Priority Associated Diagnoses Order S chedule URINE CULTURE LAB Routine Dysuria Ordered: 06/11 Health Maintenance Due Date Last Done Comments [...] Priority Date/Time Associated Diagnosis Comme nts POCT URINALYSIS STAT 06/11/2020 2:58 PM Dysuria Resul ts for this CDT procedure are i n the results section. documented in this encounter Results POCT URINALYSIS W SPECIFIC GRAVITY (06/11/2020 2:58 PM CDT) Pathologist Sig nature POCT U SP GRAV 1.015 1.005 - 1.025 mg/dl POCT PH U 6 5 - 8 mg/dl POCT U LEUK EST neg Negative - Negative POCT U NIT neg Negative - Negative POCT U PROT neg Negative - Negative POCT U GLU norm Negative - Negative POCT U KETONE neg Negative - Negative POCT U UROBILI norm 0.2 - 1 mg/dl POCT U BILI neg Negative - Negative POCT U BLD about 50 Negative - Negative POCT U COLOR yellow POCT U APPEAR cloudy Specimen Urine - URINE, CLEAN CATCH Narrative Performed At accurate development and interpretation of all interna l controls documented in this encounter Visit Diagnoses Diagnosis Dysuria - Primary Acute cystitis with hematuria Acute cystitis documented in this encounter Insurance Payer Benefit Plan / Subscriber ID Effective Phone Address T ype Group Dates [facility] [id number] 2019-Yessi rodgers [facility] - MEDICARE [facility] MANAGED MEDICARE ADVANTAGE documented as of this encounter
--- OUTSIDE RECORDS SUMMARY | 2020-08-30 22:19 | XMS REPORT | Summary of Care ---
:1970 Author Organization [facility] Address [address] [place] [address] Care Team Providers Name Role Phone Morales Brar Primary Care Provider Reason for Visit Reason Comments Refill Request Encounter Details Date Type Department Care Team Description 06/19/2020 Refill [facility] Women's Margie Onofre MD Refill Request Healthcare-[address] [phone] [place] [address] [phone] [place] [phone] Allergies Active Allergy Reactions Severity Noted Date Comments Doxycycline Monohydrate Unknown - See comments 900 Lamotrigine Rash High 04/21/2017 Alexandre Cowart Minocycline Rash 04/21/2017 Sulfa (Sulfonamide Rash 04/21/2017 Antibiotics) Tobramycin Unknown - See comments Bupropion Swelling 04/21/2017 documented as of this encounter (statuses as of 06/20/2020) Medications Medication Sig Dispensed Refills Start End [...] 2 % Apply topically 22 g 1 04/09/201 Active ointmentIndications TID to affected 9 : [...] 0 Ac tive chewable tablet mouth daily. valACYclovir Take 1 tablet 10 tablet 2 Act susanna (VALTREX) 500 mg by mouth 2 0 tabletIndications: (two) times Herpes, vulvar daily. desog-e.estradiol/e Take 1 tablet 28 tablet 2 Active .estradiol by mouth daily. 0 (VIVIRGINIAE, 28,) 0.15-0.02 mgx21 /0.01 mg x 5 per tabletIndications: Menorrhagia with irregular cycle, Hot flashes SIMVASTATIN 20 mg TAKE ONE TABLET 30 tablet 0 Active tabletIndications: BY MOUTH EVERY 0 Mixed NIGHT AT hyperlipidemia BEDTIME CARVEDILOL 25 mg TAKE ONE TABLET 60 tablet 0 Active tabletIndications: BY MOUTH TWICE 0 Essential A DAY hypertension MICONAZOLE 3 200 mg INSERT ONE 3 Suppository 0 Active vaginal SUPPOSITORY 0 suppositoryIndicati VAGINALLY AT ons: Suzi BEDTIME vaginitis miconazole Insert 1 3 Suppository 0 Disco ntinued (MICONAZOLE 3) 200 Suppository 0 020 mg vaginal into vagina at suppositoryIndicati bedtime. ons: Suzi vaginitis Hospital, Clinic, or Ordered Dose Route Frequency Start Date End D ate Status Other Facility Administered Medication lactated ringers IV 1000 mL IV Infusion CONTINUOUS 04/11/2020 Active infusion 1,000 mL documented as of this encounter (statuses as of 06/20/2020) Active Problems Problem Noted Date Lumbar spondylosis 04/11/2020 Overview: Added automatically from request for nikki santillan [id number] Menorrhagia with irregular cycle 12/09/2019 Obesity (BMI [...] as of this encounter (statuses as of 06/20/2020) Social History Tobacco Use Types Packs/Day Years [...] Colbert MD [address] [place] [id number] 08/09/2020 Office Visit Obstetrics & Gynecology Margie Villarreal MD [address] [place], [place] [phone] Health Maintenance Due Date [...] filedocumented in this encounter Visit Diagnoses Diagnosis Suzi vaginitis Candidiasis of vulva and vagina documented in this encounter Insurance Payer Benefit Plan / Subscriber ID Effective Phone Address T ype Group Dates [facility] [id number] 2019-Yessi Lucas [facility] [facility] documented as of this encounter
--- OUTSIDE RECORDS SUMMARY | 2020-08-30 22:19 | XMS REPORT | Summary of Care ---
:1970 Author Organization [facility] Address [address] [place] [address] Care Team Providers Name Role Phone Morales Brar Primary Care Provider Reason for Visit Reason Comments Refill Request Encounter Details Date Type Department Care Team Description 07/20/2020 Refill [facility] Women's Margie Onofre MD Refill Request Healthcare-[address] [phone] [place] [address] [phone] [place] [phone] Allergies Active Allergy Reactions Severity Noted Date Comments Doxycycline Monohydrate Unknown - See comments 900 Lamotrigine Rash High 04/21/2017 Alexandre Cowart Minocycline Rash 04/21/2017 Sulfa (Sulfonamide Rash 04/21/2017 Antibiotics) Tobramycin Unknown - See comments Bupropion Swelling 04/21/2017 documented as of this encounter (statuses as of 07/20/2020) Medications Medication Sig Dispensed Refills Start End Status Date Date IBUPROFEN ORAL Take by 0 Activ e mouth. QUEtiapine 300 mg 0 10/21/19 Ac tive tablet 19 QUEtiapine 50 mg 0 10/21/19 Act susanna tablet 19 traZODONE 50 mg 0 10/02/20 Acti ve tablet 18 chlorhexidine Wash body with 960 mL 0 01/19/20 A ctive (SCRUB product daily 19 CHLORHEXIDINE GLUCONATE) 4 % external liquidIndications: Staph skin infection mupirocin 2 % Apply 22 g 1 01/19/20 Active ointmentIndications topically TID 19 : Staph skin to affected infection skin and to both nares BID x 5 days metFORMIN 500 mg Take 500 mg by 0 Active tablet mouth daily before a meal. Levothyroxine 88 Take by 0 Act susanna mcg capsule mouth. traMADol 50 mg Take 1 tablet 20 tablet 0 03/20/20 A ctive tabletIndications: by mouth every 20 Acute midline low 6 (six) hours back pain without as needed for sciatica Pain (scale 4-6). DULoxetine 30 mg Take 30 mg by 0 Active capsule mouth daily. meloxicam 7.5 mg Take 1 tablet 60 tablet 3 04/10/20 Active tabletIndications: by mouth 2 20 Chronic midline low (two) times back pain with daily with bilateral sciatica meals as needed for Pain (scale 4-6). cyclobenzaprine 10 Take 1 tablet 90 tablet 3 04/10/20 Active mg by mouth 3 20 tabletIndications: (three) times Chronic midline low daily as back pain with needed for bilateral sciatica Muscle Spasms. pregabalin (LYRICA) Take 1 capsule 60 capsule 2 04/10/20 Active 50 mg by mouth 2 20 capsuleIndications: (two) times Chronic midline low daily. back pain with bilateral sciatica aspirin 81 mg Take 81 mg by 0 Ac tive chewable tablet mouth daily. valACYclovir Take 1 tablet 10 tablet 2 05/18/20 Act susanna (VALTREX) 500 mg by mouth 2 20 tabletIndications: (two) times Herpes, vulvar daily. SIMVASTATIN 20 mg TAKE ONE 30 tablet 0 06/12/20 Ac tive tabletIndications: TABLET BY 20 Mixed MOUTH EVERY hyperlipidemia NIGHT AT BEDTIME CARVEDILOL 25 mg TAKE ONE 60 tablet 0 06/12/20 Act susanna tabletIndications: TABLET BY 20 Essential MOUTH TWICE A hypertension DAY MICONAZOLE 3 200 mg INSERT ONE 3 Suppository 0 06/20/20 Active vaginal SUPPOSITORY 20 suppositoryIndicati VAGINALLY AT ons: Suzi BEDTIME vaginitis desog-e.estradioL/e Take 1 tablet 28 tablet 2 07/20/20 Active .estradioL by mouth 20 (VIORELE, 28,) daily. 0.15-0.02 mgx21 /0.01 mg x 5 per tabletIndications: Menorrhagia with irregular cycle, Hot flashes desog-e.estradiol/e Take 1 tablet 28 tablet 2 05/22/20 Discontinued .estradiol by mouth 20 020 (Reorder) (PRERNA, 28,) daily. 0.15-0.02 mgx21 /0.01 mg x 5 per tabletIndications: Menorrhagia with irregular cycle, Hot flashes Hospital, Clinic, or Ordered Dose Route Frequency Start Date End D ate Status Other Facility Administered Medication lactated ringers IV 1000 mL IV Infusion CONTINUOUS 04/11/2020 Active infusion 1,000 mL documented as of this encounter (statuses as of 07/20/2020) Active Problems Problem Noted Date Lumbar spondylosis 04/11/2020 Overview: Added automatically from request for nikki santillan [id number] Menorrhagia with irregular cycle 12/09/2019 Obesity (BMI [...] as of this encounter (statuses as of 07/20/2020) Social History Tobacco Use Types Packs/Day Years Used Date Never Smoker Smokeless Tobacco: Never Used Alcohol Use Drinks/Week oz/Week Comments No Sex Assigned at Date Recorded Not on file documented as of this encounter Last Filed Vital Signs Not on filedocumented in this encounter Miscellaneous Notes Telephone Encounter - Tawny López - 07/20/2020 11:16 AM CDTPatient requesting refill request documented in this encounter Plan of Treatment Date Type Specialty Care Team Description 08/03/2020 Office Visit Pain Medicine Eliezer Colbert MD [address] [place] [phone] 08/09/2020 Office Visit Obstetrics & Gynecology Margie Villarreal MD [address] [place], [place] [phone] Health Maintenance Due Date [...] Visit Diagnoses Diagnosis Menorrhagia with irregular cycle Excessive or frequent menstruation Hot flashes Symptomatic menopausal or female climact cornelia states documented in this encounter Insurance Payer Benefit Plan / Subscriber ID Effective Phone Address T ype Group Dates [facility] [id number] 2019-Yessi Lucas [employer] - MEDICARE nt O MANAGED MEDICARE ADVANTAGE documented as of this encounter
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
--- OUTSIDE RECORDS SUMMARY | 2020-08-30 22:19 | XMS REPORT | Summary of Care ---
:1970 Author Organization [facility] Address [address] [place] [address] Care Team Providers Name Role Phone Morales Quintero MD Primary Care Provider Morales Brar Primary Care Provider Encounter Details Date Type Department Care Team Description 04/11/2020 Prep For [facility] Anesthesia Darvin Wu MD Lumbar spondylosis Surgery [facility] [address] [place] [address] (Pr imary Dx) [address], Entrance [address] [address] [place], [place] [phone] [address] [phone] Allergies Active Allergy Reactions Severity Noted Date Comments Doxycycline Monohydrate Unknown - See comments 900 Lamotrigine Rash High 04/21/2017 Alexandre Cowart Minocycline Rash 04/21/2017 Sulfa (Sulfonamide Rash 04/21/2017 Antibiotics) Tobramycin Unknown - See comments Bupropion Swelling 04/21/2017 documented as of this encounter (statuses as of 06/20/2020) Medications Medication Sig Dispensed Refills Start Date [...] mcg Take by 0 Active capsule mouth. traMADol 50 mg Take 1 tablet 20 tablet 0 03/20/2020 Active tabletIndications: by mouth every Acute midline low 6 (six) hours back pain without as needed for sciatica Pain (scale 4-6). DULoxetine 30 mg Take 30 mg by 0 Active capsule mouth daily. meloxicam 7.5 mg Take 1 tablet 60 tablet 3 04/10/2020 Active tabletIndications: by mouth 2 Chronic midline low (two) times back pain with daily with bilateral sciatica meals as needed for Pain (scale 4-6). cyclobenzaprine 10 Take 1 tablet 90 tablet 3 04/10/2020 Active mg by mouth 3 tabletIndications: (three) times Chronic midline low daily as back pain with needed for bilateral sciatica Muscle Spasms. pregabalin (LYRICA) Take 1 capsule 60 capsule 2 04/10/2020 Active 50 mg by mouth 2 capsuleIndications: (two) times Chronic midline low daily. back pain with bilateral sciatica aspirin 81 mg Take 81 mg by 0 Ac tive chewable tablet mouth daily. carvediloL 25 mg Take 1 tablet 180 tablet 1 11/30/2019 02 Discontinued tabletIndications: by mouth 2 0 Essential (two) times hypertension daily. simvastatin 20 mg Take 1 tablet 90 tablet 1 11/30/2019 02 Discontinued tabletIndications: by mouth at 0 Mixed hyperlipidemia bedtime. desog-e.estradiol/e. Take 1 tablet 28 tablet 0 04/10/202004/11 Discontinued estradiol (VIORELE, by mouth 0 28,) 0.15-0.02 mgx21 daily. /0.01 mg x 5 per tabletIndications: Menorrhagia [...] Added automatically from request for nikki santillan [id number] Menorrhagia with irregular cycle 12/09/2019 Obesity (BMI [...] Colbert MD [address] [place] [id number] 08/09/2020 Office Visit Obstetrics & Gynecology Margie Villarreal MD [address] [place], [place] [phone] Health Maintenance Due Date [...] filedocumented in this encounter Visit Diagnoses Diagnosis Lumbar spondylosis - Primary Lumbosacral spondylosis without myelopat hy documented in this encounter Insurance Payer Benefit Plan / Subscriber ID Effective Phone Address T ype Group Dates [facility] [id number] 2019-Yessi rodgers [facility] - MEDICARE nt HMO MANAGED MEDICARE ADVANTAGE documented as of this encounter
--- OUTSIDE RECORDS SUMMARY | 2020-08-30 22:20 | XMS REPORT | Summary of Care ---
:1970 Author Organization [facility] Address [address] [place] [address] Care Team Providers Name Role Phone Morales Brar Primary Care Provider Reason for Visit Reason Comments Rx Concern/Question Encounter Details Date Type Department Care Team Description 08/27/2020 Telephone [facility] Family Gi Brar PA Rx Concern/Question Medicine - [address] [place] [address] Dr [facility] [place], [place] [id number] [phone] Allergies Active Allergy Reactions Severity Noted Date Comments Doxycycline Monohydrate Unknown - See comments 900 Lamotrigine Rash High 04/21/2017 Alexandre Cowart Minocycline Rash 04/21/2017 Sulfa (Sulfonamide Rash 04/21/2017 Antibiotics) Tobramycin Unknown - See comments Bupropion Swelling 04/21/2017 documented as of this encounter (statuses as of 08/29/2020) Medications Medication Sig Dispensed Refills Start Date [...] nares BID x 5 days Levothyroxine 88 mcg Take by mouth. 0 [...] tablet mouth daily. valACYclovir Take 1 tablet by 10 tablet 2 05/18/2020 Active (VALTREX) 500 mg mouth 2 (two) tabletIndications: times daily. Herpes, vulvar SIMVASTATIN 20 mg TAKE ONE TABLET 30 tablet 0 06/12/2020 Active tabletIndications: BY MOUTH EVERY Mixed hyperlipidemia NIGHT AT BEDTIME MICONAZOLE 3 200 mg INSERT ONE 3 Suppository 0 06/20/2020 Active vaginal SUPPOSITORY suppositoryIndication VAGINALLY AT s: Suzi vaginitis BEDTIME desog-e.estradioL/e.e Take 1 tablet by 28 tablet 2 07/20/2020 Active stradioL (VIORELE, mouth daily. 28,) 0.15-0.02 mgx21 /0.01 mg x 5 per tabletIndications: Menorrhagia with irregular cycle, Hot flashes metFORMIN 500 mg Take 1 tablet by 90 tablet 1 08/24/2020 Active tabletIndications: mouth daily. Prediabetes Take with a meal carvediloL 25 mg Take 1 tablet by 180 tablet 1 08/24/2020 Active tabletIndications: mouth 2 (two) Essential times daily. hypertension Blood-Glucose Meter Check glucose 1 Kit 0 08/24/2020 Active KitIndications: once daily Prediabetes before breakfast; Diagnosis code R73.03 Lancets Check glucose 50 Each 11 08/24/2020 Activ e MiscIndications: once daily Prediabetes before breakfast; Diagnosis code R73.03 blood sugar Check glucose 50 Strip 11 08/24/2020 Act susanna diagnostic (BLOOD once daily GLUCOSE TEST) before stripIndications: breakfast; Prediabetes Diagnosis code R73.03 Hospital, Clinic, or Ordered Dose Route Frequency Start Date End D ate Status Other Facility Administered Medication lactated ringers IV 1000 mL IV Infusion CONTINUOUS 04/11/2020 Active infusion 1,000 mL documented as of this encounter (statuses as of 08/29/2020) Active Problems Problem Noted Date Lumbar spondylosis 04/11/2020 Overview: Added automatically from request for nikki santillan [id number] Menorrhagia with irregular cycle 12/09/2019 Obesity (BMI [...] as of this encounter (statuses as of 08/29/2020) Resolved Problems Problem Noted Date Resolved Date Acute bilateral ankle pain 04/30/2018 08/24/2020 Dizziness 04/30/2018 08/24/2020 documented as of this encounter (statuses as of 08/29/2020) Social History Tobacco Use Types Packs/Day Years Used Date Never Smoker Smokeless Tobacco: Never Used Alcohol Use Drinks/Week oz/Week Comments No Sex Assigned at Date Recorded Not on file COVID-19 Exposure Response Date Recorded In the last month, have you been in contact with No / Unsure 08/28/2020 9: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 documented as of this encounter Last Filed Vital Signs Not on filedocumented in this encounter Miscellaneous Notes Telephone Encounter - Pilar Quintero MD - 08/29/2020 2:24 PM CSTSee other encounter for same issue. elephone Encounter - Esther Brar PA - 08/29/2020 12:[address] Quintero ordered elephone Encounter - Roselyn Caldwell - 08/27/2020 3:16 PM CSTLaura with [facility] stated patient insurance does not cover the Freestyle kit, Kristel would like to know if it would be ok to switch meter to one patient insurance will cover. documented in this encounter Plan of Treatment Health [...] Address T ype Group Dates [facility] [id number] 2019-Yessi rodgers [facility] - MEDICARE nt HMO MANAGED MEDICARE ADVANTAGE documented as of this encounter
--- OUTSIDE RECORDS SUMMARY | 2020-08-30 22:20 | XMS REPORT | Summary of Care ---
:1970 Author Organization [facility] Address [address] [place] [address] Care Team Providers Name Role Phone Morales Brar Primary Care Provider Reason for Visit Reason Comments LAB Encounter Details Date Type Department Care Team Description 08/28/2020 Staff Research Scientist Visit [facility] Esther Brar PA [address] [place] [address] [place] [address] Essential hypertension; Professional Office 2, Adc Lab Prediabetes; Building Phlebotomy Mixed hy perlipidemia; Lab Acquired hypothyroidism Professional Office Building [address] [place] [address] , [address] [place] [address] Allergies Active Allergy Reactions Severity Noted Date Comments Doxycycline Monohydrate Unknown - See comments 900 Lamotrigine Rash High 04/21/2017 Alexandre Cowart Minocycline Rash 04/21/2017 Sulfa (Sulfonamide Rash 04/21/2017 Antibiotics) Tobramycin Unknown - See comments Bupropion Swelling 04/21/2017 documented as of this encounter (statuses as of 08/28/2020) Medications Medication Sig Dispensed Refills Start Date [...] as of this encounter (statuses as of 08/28/2020) Active Problems Problem Noted Date Lumbar spondylosis 04/11/2020 Overview: Added automatically from request for nikki santillan [id number] Menorrhagia with irregular cycle 12/09/2019 Obesity (BMI [...] as of this encounter (statuses as of 08/28/2020) Resolved Problems Problem Noted Date Resolved Date Acute bilateral ankle pain 04/30/2018 08/24/2020 Dizziness 04/30/2018 08/24/2020 documented as of this encounter (statuses as of 08/28/2020) Social History Tobacco Use Types Packs/Day Years Used Date Never Smoker Smokeless Tobacco: Never Used Alcohol Use Drinks/Week oz/Week Comments No Sex Assigned at Date Recorded Not on file COVID-19 Exposure Response Date Recorded In the last month, have you been in contact with No / Unsure 08/28/2020 9: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 documented as of this encounter Last Filed Vital Signs Not on filedocumented in this encounter Nursing Notes Annalise Hendrix - 08/28/2020 9:15 AM CST Venipuncture collection performed by clean technique on the right anticubitus. Total of 1 attempts were made. Slight pressure and a bandage/dressing were applied to the site(s). The patient experiencedno complications. The following specimens were processed according to instructions and sent to [facility] laboratories per lab order on 08/28/20: LT BLUE SST 1 RED LAV 2 PPT DK GREEN (LiHep) DK GREEN (SodH) YOUNG DK BLUE (K2) DK BLUE (S) ACD Blood Culture NIPT/NTD documented in this encounter Plan of Treatment [...] Diagnoses Diagnosis Essential hypertension Unspecified essential hypertension Prediabetes Other abnormal glucose Mixed hyperlipidemia Acquired hypothyroidism Unspecified hypothyroidism documented in this encounter Insurance Payer Benefit Plan / Subscriber ID Effective Phone Address T ype Group Dates [facility] [id number] 2019-Yessi rodgers Adv [facility] - MEDICARE nt HMO MANAGED MEDICARE ADVANTAGE documented as of this encounter
--- OUTSIDE RECORDS SUMMARY | 2020-08-30 22:20 | XMS REPORT | Summary of Care ---
:1970 Author Organization [facility] Address [address] [place] [address] Care Team Providers Name Role Phone Morales Brar Primary Care Provider Reason for Visit Reason Comments Orders Encounter Details Date Type Department Care Team Description 08/29/2020 Telephone [facility] Family Medicine Pilar Ramsay MD Orders - [address] [facility] [place] [address] [place] [address] [phone] Allergies Active Allergy Reactions Severity Noted Date Comments Doxycycline Monohydrate Unknown - See comments 900 Lamotrigine Rash High 04/21/2017 Alexandre Cowart Minocycline Rash 04/21/2017 Sulfa (Sulfonamide Rash 04/21/2017 Antibiotics) Tobramycin Unknown - See comments Bupropion Swelling 04/21/2017 documented as of this encounter (statuses as of 08/29/2020) Medications Medication Sig Dispensed Refills Start End [...] Blood-Glucose Meter Check glucose 1 Kit 0 08/29/20 Active KitIndications: once daily 20 Prediabetes before breakfast; Diagnosis code R73.03 blood sugar Check glucose 50 Strip 11 08/29/20 Acti ve diagnostic (BLOOD once daily 20 GLUCOSE TEST) before stripIndications: breakfast; Prediabetes Diagnosis code R73.03 Lancets Check glucose 50 Each 08/29/20 Active MiscIndications: once daily 20 Prediabetes before breakfast; Diagnosis code R73.03 Blood-Glucose Meter Check glucose 1 Kit 0 08/24/20 Discontinued KitIndications: once daily 20 020 (Re order) Prediabetes before breakfast; Diagnosis code R73.03 Lancets Check glucose 50 Each 08/24/20 Discon tinued MiscIndications: once daily 20 020 (R eorder) Prediabetes before breakfast; Diagnosis code R73.03 blood sugar Check glucose 50 Strip 11 08/24/20 Disc ontinued diagnostic (BLOOD once daily 20 020 ( Reorder) GLUCOSE TEST) before stripIndications: breakfast; Prediabetes Diagnosis code R73.03 Hospital, Clinic, or Ordered Dose Route Frequency Start Date End D ate Status Other Facility Administered Medication lactated ringers IV 1000 mL IV Infusion CONTINUOUS 04/11/2020 Active infusion 1,000 mL documented as of this encounter (statuses as of 08/29/2020) Active Problems Problem Noted Date Lumbar spondylosis 04/11/2020 Overview: Added automatically from request for nikki tyrell [id number] Menorrhagia with irregular cycle 12/09/2019 Obesity (BMI [...] with No / Unsure 08/28/2020 9:26 AM OIL BURNER someone who was confirmed or suspected to have Coronavirus / COVID-19? documented as of this encounter Last Filed Vital Signs Not on filedocumented in this encounter Miscellaneous Notes Telephone Encounter - Pilar Quintero MD - 08/29/2020 3:00 PM OIL BURNER Re-escribed. elephone Encounter - Nica Johnston - 08/29/2020 2:57 PM CSTThe order was deleted by pharmacist and will need to be resent because they insisted it went [facility]. Needs to bee reordered please elephone Encounter - Pilar Quintero MD - 08/29/2020 2:23 PM CSTI sent a generic script without choosing a meter and the diagnosis code was included on the script.They are authorized to fill the Rx as Accu-chek but I should not have to send another Rx. elephone Encounter - Nica Johnston - 08/29/2020 2:14 PM CSTPlease review elephone Encounter - Aleta Lomeli - 08/29/2020 12:50 PM CSTLori with [facility] is stating they received a prescription for a glucose meter but her insurance only covers the one touch or accu check. They are needing new orders with the diagnoses code sentover to [facility] in [place]. [facility] - [place], [place] - [address] [place] [address] documented in this encounter Plan of Treatment [...] in this encounter Visit Diagnoses Diagnosis Prediabetes Other abnormal glucose documented in this encounter Insurance Payer Benefit Plan / Subscriber ID Effective Phone Address T ype Group Dates [facility] [id number] 2019-Yessi rodgers [facility] - MEDICARE nt O MANAGED MEDICARE ADVANTAGE documented as of this encounter
--- OUTSIDE RECORDS SUMMARY | 2020-08-30 22:21 | XMS REPORT | Summary of Care ---
:1970 Author Organization [facility] Address [address] [place] [address] Care Team Providers Name Role Phone Morales Brar Primary Care Provider Reason for Visit Reason Comments Orders Encounter Details Date Type Department Care Team Description 08/29/2020 Telephone [facility] Family Medicine Pilar Ramsay MD Orders - [address] 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 documented as of this encounter Last Filed Vital Signs Not on filedocumented in this encounter Miscellaneous Notes Telephone Encounter - Pilar Quintero MD - 08/29/2020 3:00 PM SCORER HELPER Re-escribed. elephone Encounter - Nica Johnston - 08/29/2020 2:57 PM CSTThe order was deleted by pharmacist and will need to be resent because they insisted it went [facility]. Needs to bee reordered please elephone Encounter [...] Lomeli - 08/29/2020 12:50 PM CSTLori with [facility] pharmacy is stating they received a prescription for a glucose meter but her insurance only covers the one touch or accu check. They are needing new orders with the diagnoses code sentover to Asha in [place]. [facility] - [place], [place] - [address] [place] [address] documented in this encounter Plan of Treatment [...] Phone Address T ype Group Dates [facility] [id number] 2019-Yessi rodgers [facility] - MEDICARE nt O MANAGED MEDICARE ADVANTAGE documented as of this encounter
[2020-08-30 22:59] LABS: Absolute Lymphocytes (CBC) 2.8 K/uL (0.7-4.9); Basophils % 0.2 % (0-1.3); Hematocrit 39.4 % (36.0-45.0); MPV 9.2 fL (7.6-11.3); RBC Red Blood Cell Count 4.35 M/uL (3.86-4.86)
[2020-08-30] MEDS ORDERED: ONDANSETRON 4 MG/2 ML VIAL ONE (23:00)
[2020-08-30] MEDS ORDERED: MORPHINE 2 MG/ML SYR ONE ×2 (23:00→23:30)
[2020-08-30 23:09] LABS: Protime INR 0.91
[2020-08-30 23:12] LABS: ALT/SGPT 14 U/L (12-78); AST/SGOT 9 U/L (15-37); Albumin 3.1 g/dL (3.4-5.0); Alkaline Phosphatase 58 U/L (45-117); BUN Blood Urea Nitrogen 9 mg/dL (7-18); Bicarbonate 22 mmol/L (21-32); Bilirubin Direct < 0.1 mg/dL (0-0.2); Bilirubin Total 0.2 mg/dL (0.2-1.0); Glucose Level 122 mg/dL (74-106); Magnesium 1.9 mg/dL (1.8-2.4); NT PRO-BNP 44 pg/mL (<125); Protein, Total 7.9 g/dL (6.4-8.2); Sodium Level 138 mmol/L (136-145); Troponin (Emerg Dept Use Only) < 0.02 ng/mL (0.0-0.045)
--- NOTE | 2020-08-30 23:33 | ER ---
Nurse's Notes [facility] Name: Sadia Mcpherson Age: 50 yrs Sex: Female : 1970 Arrival Date: 08/30/2020 Time: 22:16 Bed 4 Private MD: Diagnosis: Chest pain Presentation: 08/30 22:28 Chief complaint: Patient states: about an hour ago my chest started to hurt going to my rr5 left shoulder left arm and going to my back and shoulder blade. no fever, no cough reported. Coronavirus screen: Client denies travel out of the [place] in the last 14 days. At this time, the client does not indicate any symptoms associated with coronavirus-19. Ebola Screen: Patient negative for fever greater than or equal to 101.5 degrees Fahrenheit, and additional compatible Ebola Virus Disease symptoms Patient denies exposure to infectious person. Patient denies travel to an Ebola-affected area in the 21 days before illness onset. Initial Sepsis Screen: Does the patient meet any 2 criteria? No. Patient's initial sepsis screen is negative. Does the patient have a suspected source of infection? No. Patient's initial sepsis screen is negative. Risk Assessment: Do you want to hurt yourself or someone else? Patient reports no desire to harm self or others. Onset of symptoms was August 30, 2020 at 21:30. 22:28 Method Of Arrival: Wheelchair rr5 22:28 Acuity: JAYLEN 3 rr5 CENTRAL COMMUNICATIONS SPECIALIST: 22:32 LMP N/A - control method rr5 Historical: - Allergies: 22:31 Lamictal; rr5 22:31 Sulfa (Sulfonamide Antibiotics); rr5 22:31 Tobramycin; rr5 22:31 Toradol; rr5 22:31 tramadol; rr5 22:31 Wellbutrin; rr5 - Home Meds: 22:31 aspirin 81 mg Oral chew 1 tab once daily [Active]; levothyroxine 75 mcg tab 1 tab once rr5 daily [Active]; Mircette (28) 0.15-0.02 mgx21 /0.01 mg x 5 Oral tab 1 tab once daily [Active]; Coreg 12.5 mg Oral tab 1 tab 2 times per day [Active]; Seroquel 200 mg Oral tab 1 tab once daily [Active]; Simvastatin Oral [Active]; Trazodone Oral [Active]; - PMHx: 22:31 Depression; Hypertension; Hypothyroidism; Kidney stones; rr5 - PSHx: 22:31 kidney stone surgery; rr5 - Immunization history:: Adult Immunizations up to date. - Social history:: Smoking status: unknown Patient/guardian denies using alcohol, street drugs. Screenin:30 Abuse screen: Denies threats or abuse. Denies injuries from another. Nutritional rr5 screening: No deficits noted. Tuberculosis screening: No symptoms or risk factors identified. Fall Risk IV access (20 points). Total Owusu Fall Scale indicates No Risk (0-24 pts). Assessment: 22:33 General: Appears in no apparent distress. uncomfortable, Behavior is calm, cooperative, rr5 appropriate for age. Pain: Complains of pain in chest Pain radiates to back and left arm Pain currently is 9 out of 10 on a pain scale. Quality of pain is described as shooting, Pain began 1 hour ago. Is intermittent. Neuro: Level of Consciousness is awake, alert, obeys commands, Oriented to person, place, time, situation. Cardiovascular: Reports chest pain, Capillary refill < 3 seconds Patient's skin is warm and dry. Respiratory: Airway is patent Respiratory effort is even, unlabored, Respiratory pattern is regular, symmetrical. GI: No signs and/or symptoms were reported involving the gastrointestinal system. : No signs and/or symptoms were reported regarding the genitourinary system. EENT: No signs and/or symptoms were reported regarding the EENT system. Derm: Skin is intact, is healthy with good turgor, Skin temperature is warm. Musculoskeletal: Circulation, motion, and sensation intact. Capillary refill < 3 seconds. 23:35 Reassessment: Patient appears in no apparent distress at this time. Patient is alert, rr5 oriented x 3, equal unlabored respirations, skin warm/dry/pink. hospitalist at bedside. 08/31 00:30 Reassessment: Patient appears in no apparent distress at this time. Patient is alert, rr5 oriented x 3, equal unlabored respirations, skin warm/dry/pink. Patient states symptoms have improved. Vital Signs: 08/30 22:28 BP 159 / 106; Pulse 87; Resp 19; Temp 98.1; Pulse Ox 100% ; Weight 97.52 kg; Height 5 rr5 ft. 4 in. (162.56 cm); Pain 9/10; 08/31 00:00 BP 164 / 98; Pulse 94; Resp 17; Pulse Ox 97% ; rr5 00:35 BP 137 / 92; Pulse 81; Resp 16; Pulse Ox 99% ; rr5 08/30 22:28 Body Mass Index 36.90 (97.52 kg, 162.56 cm) rr5 ED Course: 08/30 22:16 Patient arrived in ED. am2 22:17 Bryan Valadez MD is Attending Physician. pkl 22:30 Triage completed. rr5 22:32 Arm band placed on right wrist. rr5 22:32 Patient has correct armband on for positive identification. Placed in gown. Bed in low rr5 position. Call light in reach. Side rails up X2. cinder snapper on. Pulse ox on. NIBP on. 22:32 EKG done, by ED staff, reviewed by Bryan Valadez MD. rr5 22:34 Marcello Bradley, SILVIA is Primary Nurse. rr5 22:37 Inserted saline lock: 20 gauge in right wrist, using aseptic technique. Blood collected.oe 22:51 XRAY Chest (1 view) In Process Unspecified. EDMS 22:55 IV discontinued, intact, bleeding controlled, No redness/swelling at site. Pressure rr5 dressing applied, infiltrated. 22:56 Inserted saline lock: 20 gauge in right antecubital area, using aseptic technique. rr5 Patient maintains SpO2 saturation greater than 95% on room air. 23:32 Mariano Shafer is Hospitalizing Provider. pkl 08/31 00:16 No provider procedures requiring assistance completed. ea Administered Medications: 08/30 22:58 Drug: Zofran (Ondansetron) 4 mg Route: IVP; Site: right antecubital; rr5 08/31 00:00 Follow up: Response: No adverse reaction ea 08/30 23:00 Drug: morphine 2 mg {Note: rass 0.} Route: IVP; Site: right antecubital; rr5 23:23 Drug: morphine 2 mg Route: IVP; Site: right antecubital; rr5 08/31 00:00 Follow up: Response: No adverse reaction ea 08/30 23:57 Drug: Aspirin 243 mg Route: PO; ea 08/31 00:15 Follow up: Response: No adverse reaction ea 08/30 23:57 Drug: Valium 5 mg Route: IVP; Site: right antecubital; ea 08/31 00:15 Follow up: Response: No adverse reaction ea Outcome: 08/30 23:33 Decision to Hospitalize by Provider. marnie 08/31 00:16 Condition: stable ea Instructed on medication usage. 00:21 Admitted to Med/surg accompanied by tech, room 216, with chart, Report called to Tammie blanco RN 00:53 Patient left the ED. francis Signatures: Dispatcher [employer] EDBryan Meza MD MD pkl Espinosa, Orlando oe Moreno, Amanda am2 Antunez, Elena RN RN Marcello Alegre RN RN rr5
--- NOTE | 2020-08-30 23:34 | EDPHYS ---
Physician Documentation [facility] Name: Sadia Mcpherson Age: 50 yrs Sex: Female : 1970 Arrival Date: 08/30/2020 Time: 22:16 Bed 4 Private MD: ED Physician Bryan aVladez HPI: 08/30 22:47 This 50 yrs old Female presents to ER via Wheelchair with complaints of Chest pkl Pain > 30 y/o. 22:47 The patient or guardian reports chest pain that is located primarily in the substernal pkl area. Onset: just prior to arrival, 1 hour(s) ago. The pain radiates to the left arm, back. Associated signs and symptoms: Pertinent positives: diaphoresis, shortness of breath. The chest pain is described as a pressure. The patient has experienced similar episodes in the past, a few times, similar but not this severe. CHLORINATOR: 22:32 LMP N/A - control method rr5 Historical: - Allergies: 22:31 Lamictal; rr5 22:31 Sulfa (Sulfonamide Antibiotics); rr5 22:31 Tobramycin; rr5 22:31 Toradol; rr5 22:31 tramadol; rr5 22:31 Wellbutrin; rr5 - Home Meds: 22:31 aspirin 81 mg Oral chew 1 tab once daily [Active]; levothyroxine 75 mcg tab 1 tab once rr5 daily [Active]; Mircette (28) 0.15-0.02 mgx21 /0.01 mg x 5 Oral tab 1 tab once daily [Active]; Coreg 12.5 mg Oral tab 1 tab 2 times per day [Active]; Seroquel 200 mg Oral tab 1 tab once daily [Active]; Simvastatin Oral [Active]; Trazodone Oral [Active]; - PMHx: 22:31 Depression; Hypertension; Hypothyroidism; Kidney stones; rr5 - PSHx: 22:31 kidney stone surgery; rr5 - Immunization history:: Adult Immunizations up to date. - Social history:: Smoking status: unknown Patient/guardian denies using alcohol, street drugs. ROS: 22:47 Eyes: Negative for injury, pain, redness, and discharge, ENT: Negative for injury, pkl pain, and discharge, Neck: Negative for injury, pain, and swelling. 22:47 Cardiovascular: Positive for chest pain, of the substernal. 22:47 Respiratory: Positive for shortness of breath. 22:47 Abdomen/GI: Negative for abdominal pain, nausea, vomiting, and diarrhea. 22:47 Back: Negative for acute changes. 22:47 : Negative for urinary symptoms. 22:47 MS/extremity: Negative for acute changes. 22:47 Skin: Negative for rash. 22:47 Neuro: Negative for altered mental status. Exam: 22:47 Head/Face: Normocephalic, atraumatic. Eyes: Pupils equal round and reactive to light, pkl extra-ocular motions intact. Lids and lashes normal. Conjunctiva and sclera are non-icteric and not injected. Cornea within normal limits. Periorbital areas with no swelling, redness, or edema. ENT: Nares patent. No nasal discharge, no septal abnormalities noted. Tympanic membranes are normal and external auditory canals are clear. Oropharynx with no redness, swelling, or masses, exudates, or evidence of obstruction, uvula midline. Mucous membranes moist. Neck: Trachea midline, no thyromegaly or masses palpated, and no cervical lymphadenopathy. Supple, full range of motion without nuchal rigidity, or vertebral point tenderness. No Meningismus. Chest/axilla: Normal chest wall appearance and motion. Nontender with no deformity. No lesions are appreciated. Cardiovascular: Regular rate and rhythm with a normal S1 and S2. No gallops, murmurs, or rubs. Normal PMI, no JVD. No pulse deficits. Respiratory: Lungs have equal breath sounds bilaterally, clear to auscultation and percussion. No rales, rhonchi or wheezes noted. No increased work of breathing, no retractions or nasal flaring. Abdomen/GI: Soft, non-tender, with normal bowel sounds. No distension or tympany. No guarding or rebound. No evidence of tenderness throughout. Back: No spinal tenderness. No costovertebral tenderness. Full range of motion. Skin: Warm, dry with normal turgor. Normal color with no rashes, no lesions, and no evidence of cellulitis. MS/ Extremity: Pulses equal, no cyanosis. Neurovascular intact. Full, normal range of motion. Neuro: Awake and alert, GCS 15, oriented to person, place, time, and situation. Cranial nerves II-XII grossly intact. Motor strength 5/5 in all extremities. Sensory grossly intact. Cerebellar exam normal. Normal gait. Vital Signs: 22:28 BP 159 / 106; Pulse 87; Resp 19; Temp 98.1; Pulse Ox 100% ; Weight 97.52 kg; Height 5 rr5 ft. 4 in. (162.56 cm); Pain 9/10; 08/31 00:00 BP 164 / 98; Pulse 94; Resp 17; Pulse Ox 97% ; rr5 00:35 BP 137 / 92; Pulse 81; Resp 16; Pulse Ox 99% ; rr5 08/30 22:28 Body Mass Index 36.90 (97.52 kg, 162.56 cm) rr5 MDM: 08/30 22:17 Patient medically screened. pkl 23:30 Data reviewed: vital signs, nurses notes, lab test result(s), EKG, radiologic studies, pkl plain films. ED course: Patient said she is still having chest pain. Talked to Diego Vaughn for observation ( Dr. Shafer ). 08/30 22:42 Order name: Basic Metabolic Panel pkl 08/30 22:42 Order name: CBC with Diff pkl 08/30 22:42 Order name: LFT's pkl 08/30 22:42 Order name: Magnesium; Complete Time: 23:24 pkl 08/30 22:42 Order name: NT PRO-BNP; Complete Time: 23:24 pkl 08/30 22:42 Order name: PT-INR; Complete Time: 23:24 pkl 08/30 22:42 Order name: Troponin (emerg Dept Use Only); Complete Time: 23:24 pkl 08/30 22:42 Order name: D-Dimer; Complete Time: 23:24 pkl 08/30 22:42 Order name: Basic Metabolic Panel rr5 08/30 22:42 Order name: CBC with Diff rr5 08/30 22:42 Order name: LFT's rr5 08/30 22:42 Order name: Magnesium rr5 08/30 22:42 Order name: NT PRO-BNP rr5 08/30 22:42 Order name: PT-INR rr5 08/30 22:42 Order name: XRAY Chest (1 view) pkl 08/30 22:42 Order name: EKG; Complete Time: 22:44 pkl 08/30 22:42 Order name: Troponin (emerg Dept Use Only) rr5 08/30 22:42 Order name: EKG; Complete Time: 22:45 rr5 08/30 22:43 Order name: Basic Metabolic Panel; Complete Time: 23:24 EDMS 08/30 22:43 Order name: CBC with Automated Diff; Complete Time: 23:24 EDMS 08/30 22:43 Order name: Liver (Hepatic) Function; Complete Time: 23:24 EDMS 08/31 00:20 Order name: COVID-19 rr5 08/31 00:50 Order name: CORONAVIRUS EDMS 08/30 22:42 Order name: Cardiac monitoring; Complete Time: 22:43 rr5 08/30 22:42 Order name: EKG - Nurse/Tech; Complete Time: 22:43 rr5 08/30 22:42 Order name: IV Saline Lock; Complete Time: 22:43 rr5 08/30 22:42 Order name: Labs collected and sent; Complete Time: 22:43 rr5 08/30 22:42 Order name: O2 Per Protocol; Complete Time: 22:43 5 08/30 22:42 Order name: O2 Sat Monitoring; Complete Time: 22:43 rr5 Administered Medications: 22:58 Drug: Zofran (Ondansetron) 4 mg Route: IVP; Site: right antecubital; rr5 08/31 00:00 Follow up: Response: No adverse reaction 08/30 23:00 Drug: morphine 2 mg {Note: rass 0.} Route: IVP; Site: right antecubital; rr5 23:23 Drug: morphine 2 mg Route: IVP; Site: right antecubital; rr5 08/31 00:00 Follow up: Response: No adverse reaction 08/30 23:57 Drug: Aspirin 243 mg Route: PO; ea 08/31 00:15 Follow up: Response: No adverse reaction 08/30 23:57 Drug: Valium 5 mg Route: IVP; Site: right antecubital; ea 08/31 00:15 Follow up: Response: No adverse reaction ea Disposition: 08/30/20 23:33 Hospitalization ordered by Mariano Shafer for Observation. Preliminary diagnosis is Chest pain. - Bed requested for Telemetry/MedSurg (observation). - Status is Observation. ea - Condition is Stable. - Problem is new. - Symptoms are unchanged. Signatures: Dispatcher [employer] EDBryan Meza MD MD pkl Summer Richmond RN RN tl1 Jami Peña RN RN ea Roque, Raymond, RN RN rr5 Corrections: (The following items were deleted from the chart) 08/30 22:51 22:45 Chest Single View+RAD.RAD.BRZ ordered. EDNC EDMS : 22:42 Cardiac monitoring ordered. pk rr5 23: 22:42 EKG - Nurse/Tech ordered. pk rr5 23: 22:42 IV Saline Lock ordered. [facility] rr5 23: 22:42 Labs collected and sent ordered. pk rr5 23: 22:42 Oxygen Per Protocol ordered. pk rr5 23: 22:42 O2 Sat Monitoring ordered. pk rr5 08/31 00:10 08/30 23:33 Hospitalization Ordered by Mariano Shafer for Observation. Preliminary tl1 diagnosis is Chest pain. Bed requested for Telemetry/MedSurg (observation). Status is Observation. Condition is Stable. Problem is new. Symptoms are unchanged. pk 08/31 00:53 00:10 08/30/2020 23:33 Hospitalization Ordered by Mariano Shafer for Observation. ea Preliminary diagnosis is Chest pain. Bed requested for Telemetry/MedSurg (observation). Status is Observation. Condition is Stable. Problem is new. Symptoms are unchanged. tl1
[2020-08-31] MEDS ORDERED: DIAZEPAM 10 MG/2 ML INJ SYRINGE ONE (00:04)
[2020-08-31] MEDS ORDERED: ASPIRIN 81 MG CHEWABLE TABLET ONE (00:04)
[2020-08-31] MEDS ORDERED: ONDANSETRON 4 MG/2 ML VIAL IV PRN (00:50)
[2020-08-31 01:38] VITALS: BMI 37.0
[2020-08-31] MEDS: MORPHINE 2 MG/ML SYR IV PRN ×2 (03:08→08:15)
--- NOTE | 2020-08-31 04:38 | P.HP ---
Certification for Inpatient Patient admitted to: Observation With expected LOS: <2 Midnights Patient will require the following post-hospital care: None Practitioner: I am a practitioner with admitting privileges, knowledge of patient current condition, hospital course, and medical plan of care. Services: Services provided to patient in accordance with Admission requirements found in Title 42 Section 412.3 of the Code of Federal Regulations <TuJoseph - Last Filed: 08/31/20 04:33> Patient History Date of Service: 08/31/20 Primary Care Provider: Dr. Kelly Reason for admission: Chest pain History of Present Illness: This is a 50-year-old female with a history of pre diabetes, hypertension, high cholesterol that had sudden onset of chest pain that was sharp in nature with radiation to the back and left arm. Started at approximately 9:00 p.m. tonight. Patient was worked up in the emergency room and found to have no significant findings on EKG, chest x-ray without any abnormalities, and a negative troponin. Patient was still complaining of chest pain after having 2 rounds of morphine a nd aspirin. At that time it was asked the hospitalist team evaluate patient for admission. Patient overall stated that she is feeling better but still complains of chest pain. When evaluated in the emergency room patient does have mildly reproducible pain with motion of chest wall and all arms and upon palpation. Nonetheless patient does has significant comorbid history with an elevated heart score. Will observe patient for next 24 hr for chest pain. - Past Medical/Surgical History Has patient received pneumonia vaccine in the past: No Diabetic: Yes -: depression -: HTN -: Hypothyroidism -: Kidney stones -: kidney stone surgery - Social History Smoking Status: Never smoker Smoking therapy provided: No Alcohol use: Yes CD- Drugs: No Caffeine use: No Place of Residence: Home <Joseph Mae - Last Filed: 08/31/20 04:33> Date of Service: 08/31/20 <damien langford - Last Filed: 08/31/20 18:16> Allergies bupropion [From Wellbutrin] Allergy (Verified 08/31/20 03:04) Unknown gabapentin Allergy (Verified 08/31/20 03:04) Unknown ketorolac Allergy (Verified 08/31/20 03:04) Unknown lamotrigine [From Lamictal] Allergy (Verified 08/31/20 03:04) Unknown Sulfa (Sulfonamide Antibiotics) Allergy (Verified 08/31/20 03:04) Unknown tobramycin Allergy (Verified 08/31/20 03:04) Unknown Sulfa (Sulfonam Allergy (Uncoded 11/04/16 06:19) Unknown Sulfa (Sulfonami Allergy (Uncoded 11/11/16 15:25) Unknown Sulfa (Sulfonamide Antib Allergy (Uncoded 11/02/16 22:14) Unknown Home Medications: Aspirin [Aspirin EC 81 MG] 81 mg PO DAILY #30 tablet. 08/31/20 Desog-E.estradiol/E.estradiol [Viorele 28 Day Tablet] 1 tab PO DAILY 08/31/20 Levothyroxine Sodium 1 tab PO DAILY 08/31/20 Metformin HCl [Glucophage*] 1 tab PO DAILY 08/31/20 Simvastatin 1 tab PO BEDTIME 08/31/20 Tramadol HCl [Ultram] 50 mg PO Q6H PRN #30 tablet 08/31/20 Trazodone HCl 1 tab PO BEDTIME 08/31/20 carvediloL [Carvedilol] 1 tab PO BID 08/31/20 clonazePAM [Clonazepam] 0.25 mg PO DAILY PRN 08/31/20 Review of Systems General: Unremarkable Eyes: Unremarkable ENT: Unremarkable Respiratory: Unremarkable Cardiovascular: Chest Pain Gastrointestinal: Unremarkable Musculoskeletal: Unremarkable Integumentary: Unremarkable Neurological: Unremarkable Lymphatics: Unremarkable <Joseph Mae - Last Filed: 08/31/20 04:33> Physical Examination - Vital Signs Temperature: 96.9 F Blood Pressure: 146/83 Pulse: 85 Respirations: 18 Pulse Ox (%): 98 - Physical Exam General: Alert, In no apparent distress, Oriented x3 HEENT: Normocephalic, PERRLA, Mucous membr. moist/pink, EOMI Neck: Supple, 2+ carotid pulse no bruit, JVD not distended, No Thyromegaly Respiratory: Clear to auscultation bilaterally, Normal air movement Cardiovascular: No edema, Normal pulses, Regular rate/rhythm, Normal S1 S2, No gallops, No rubs, No murmurs Capillary refill: <2 Seconds Gastrointestinal: Normal bowel sounds, Soft and benign, Non-distended, No ascites, No tenderness, No masses, No rebound, No guarding Musculoskeletal: No clubbing, No swelling, No contractures, No erythema, No tenderness, No warmth Integumentary: No rashes, No breakdown, No significant lesion, No tenderness/swelling, No erythema, No warmth, No cyanosis Neurological: Normal speech, Normal strength at 5/5 x4 extr, Normal tone, Sensation intact, Cranial nerves 3-12 intact, Normal affect Lymphatics: No axilla or inguinal lymphadenopathy - Studies Laboratory Data (last 24 hrs) 08/30/20 22:31: PT 10.8, INR 0.91 08/30/20 22:31: WBC 6.4, Hgb 13.3, Hct 39.4, Plt Count 276 08/30/20 22:31: Sodium 138, Potassium 4.0, BUN 9, Creatinine 1.18, Glucose 122 H, Magnesium 1.9, Total Bilirubin 0.2, AST 9 L, ALT 14, Alkaline Phosphatase 58 <Joseph Mae - Last Filed: 08/31/20 04:33> - Studies Laboratory Data (last 24 hrs) 08/30/20 22:31: PT 10.8, INR 0.91 08/30/20 22:31: WBC 6.4, Hgb 13.3, Hct 39.4, Plt Count 276 08/30/20 22:31: Sodium 138, Potassium 4.0, BUN 9, Creatinine 1.18, Glucose 122 H, Magnesium 1.9, Total Bilirubin 0.2, AST 9 L, ALT 14, Alkaline Phosphatase 58 <damien langford - Last Filed: 08/31/20 18:16> Assessment and Plan - Problems (Diagnosis) (1) Hypertension Status: Chronic Plan: Will continue to monitor patient's blood pressure over the next 24 hr. Will treat blood pressure for systolic greater than 160 diastolic greater than 110. Qualifiers: Hypertension type: essential hypertension Qualified Code(s): I10 - Essential (primary) hypertension (2) Hyperlipidemia Status: Chronic Qualifiers: Hyperlipidemia type: mixed hyperlipidemia Qualified Code(s): E78.2 - Mixed hyperlipidemia (3) Chest pain Status: Acute Plan: Patient will have serial troponins drawn. EKGs is necessary. Will consult cardiology in a way for further orders as to whether they feel patient needs to have echo, stress test, and/or angiogram. Qualifiers: Chest pain type: unspecified Qualified Code(s): R07.9 - Chest pain, unspecified (4) Pre-diabetes Status: Chronic Plan: Will monitor sugars while in the hospital. Patient will be placed on ADA diet. Discharge Plan: Home Plan to discharge in: 24 Hours - Advance Directives Does patient have a Living Will: No Does patient have a Durable POA for Healthcare: No - Code Status/Comfort Care Code Status Assessed: Yes Code Status: Full Code Critical Care: No Time Spent Managing Pts Care (In Minutes): 70 <Joseph Mae - Last Filed: 08/31/20 04:33> Physician Review: Patient Assessed, Agree with Above Assessment and Plan Physician Review Additional Text: Chest pain-appear atypical. Significant CAD risk factors including significant family history. Plan: Trend troponin. Pain management with IV opioid Cardiology consult Obtain echocardiogram. <damien langford - Last Filed: 08/31/20 18:16>
--- NOTE | 2020-08-31 06:23 | EKG ---
Test Date: 2020-08-30 Test Time: 22:23:10 Water Main Installer Helper: MARJAN MEASUREMENT RESULTS: Intervals: Rate: 86 OH: 146 QRSD: 88 QT: 374 QTc: 447 [place]: P: 70 OH: 146 QRS: 57 T: 62 INTERPRETIVE STATEMENTS: Normal sinus rhythm ST abnormality, possible digitalis effect Abnormal ECG Compared to ECG 03/03/2018 01:46:00 ST (T wave) deviation now present Myocardial infarct finding no longer present Electronically Signed On 08-31-20 06:22:31 ASSISTANT UNIT FORESTER by Law Butler
--- NOTE | 2020-08-31 08:28 | RAD REPORT ---
EXAM DESCRIPTION: RAD - Chest Single View - 08/30/2020 10:53 pm CLINICAL HISTORY: CHEST PAIN Chest pain. COMPARISON: No comparisons FINDINGS: Portable technique limits examination quality. The lungs are grossly clear. The heart is normal in size. No displaced fractures. IMPRESSION: No acute intrathoracic process suspected.
[2020-08-31] MEDS ORDERED: ASPIRIN EC 81 MG TAB PO SCH (09:00)
--- NOTE | 2020-08-31 09:11 | ECHO ---
HEIGHT: 5 ft 4 in WEIGHT: 216 lb 4 oz DATE OF STUDY: 08/30/[address]: Joseph Mae 2-DIMENSIONAL: YES M.MODE: YES DOPPLER: YES COLOR FLOW: YES TDS: YES PORTABLE: YES DEFINITY: NO BUBBLE STUDY: NO DIAGNOSIS: PULMONARY EDEMA CARDIAC HISTORY: CATHERIZATION: NO SURGERY: NO PROSTHETIC VALVE: NO PACEMAKER: NO MEASUREMENTS (cm) DIASTOLIC (NORMALS) SYSTOLIC (NORMALS) IVSd 1.0 (0.6-1.2) LA Diam 3.7 (1.9-4.0) LVEF 62% LVIDd 4.2 (3.5-5.7) LVIDs 2.8 (2.0-3.5) %FS 33% LVPWd 1.1 (0.6-1.2) Ao Diam 3.0 (2.0-3.7) 2 DIMENSIONAL ASSESSMENT: RIGHT ATRIUM: NORMAL LEFT ATRIUM: NORMAL RIGHT VENTRICLE: NORMAL LEFT VENTRICLE: NORMAL TRICUSPID VALVE: MITRAL VALVE: PULMONIC VALVE: NORMAL AORTIC VALVE: NORMAL PERICARDIAL EFFUSION: NONE AORTIC ROOT: NORMAL LEFT VENTRICULAR WALL MOTION: NORMAL DOPPLER/COLOR FLOW: SEE BELOW COMMENTS: NORMAL LEFT VENTRICULAR EJECTION FRACTION 55-60% WITH NORMAL WALL MOTION. PULMONARY HYPERTENSION WITH RIGHT VENTRICULAR SYSTOLIC PRESSURE 50-55 mmHg. RIGHT ATRIAL PRESSURE >20 mmHg. MILD MITRAL AND TRICUSPID REGURGITATION. TECHNOLOGIST: Joyce ARAIZA
[2020-08-31] MEDS ORDERED: INFLUENZA VACCINE (for 3y+) 0.5 ML DOSE IMVAC ONE (10:00)
--- NOTE | 2020-08-31 10:49 | P.DS ---
Admission Date: 08/30/20 Discharge Date: 08/31/20 Primary Care Provider: Dr. Kelly Disposition: ROUTINE DISCHARGE Discharge Condition: FAIR Reason for Admission: Chest pain Brief History of Present Illness: 50-year-old man with a history of obesity, hypertension, hyperlipidemia presented emergency department with a complaint of sudden onset of chest pain radiating to the back. Her initial troponin was negative. EKG showed nonspecific ST T wave changes. Patient's chest pain was noted to be reproducible by palpation and appeared atypical. She has significant history of coronary artery disease in the family and was therefore hospitalized for ACS rule out. Hospital Course: Patient placed under observation. Troponin trended negative. Echocardiogram was performed which reported.... She still has some mild chest pain which was reproducible by palpation. The patient seen by cardiology-Dr. Vickers. ACS has been ruled out. She will have a stress test as an outpatient to further evaluate for CAD. She is informed to call Dr. Vickers's office to schedule outpatient stress test on Thursday09/03/2020. Vital Signs/Physical Exam: Temp Pulse Resp BP Pulse Ox 98.1 F 82 16 111/66 95 08/31/20 08:00 08/31/20 08:00 08/31/20 08:45 08/31/20 08:00 08/31/20 08:45 General: Alert, In no apparent distress HEENT: Mucous membr. moist/pink Neck: JVD not distended Respiratory: Clear to auscultation bilaterally, Normal air movement Cardiovascular: No edema, Regular rate/rhythm, Normal S1 S2 Gastrointestinal: Normal bowel sounds, Soft and benign, No tenderness Musculoskeletal: Tenderness (On palpation of left upper back and sternal area) Laboratory Data at Discharge: WBC 6.4 K/uL (4.3-10.9) 08/30/20 22:31 Hgb 13.3 g/dL (12.0-15.0) 08/30/20 22:31 Hct 39.4 % (36.0-45.0) 08/30/20 22:31 Plt Count 276 K/uL (152-406) 08/30/20 22:31 PT 10.8 SECONDS (9.5-12.5) 08/30/20 22:31 INR 0.91 08/30/20 22:31 Sodium 138 mmol/L (136-145) 08/30/20 22:31 Potassium 4.0 mmol/L (3.5-5.1) 08/30/20 22:31 BUN 9 mg/dL (7-18) 08/30/20 22:31 Creatinine 1.18 mg/dL (0.55-1.3) 08/30/20 22:31 Glucose 122 mg/dL (74-106) H 08/30/20 22:31 Magnesium 1.9 mg/dL (1.8-2.4) 08/30/20 22:31 Total Bilirubin 0.2 mg/dL (0.2-1.0) 08/30/20 22:31 AST 9 U/L (15-37) L 08/30/20 22:31 ALT 14 U/L (12-78) 08/30/20 22:31 Alkaline Phosphatase 58 U/L (45-117) 08/30/20 22:31 Troponin I < 0.02 ng/mL (0.0-0.045) 08/31/20 07:12 Home Medications: Aspirin [Aspirin EC 81 MG] 81 mg PO DAILY #30 tablet. 08/31/20 Desog-E.estradiol/E.estradiol [Viorele 28 Day Tablet] 1 tab PO DAILY 08/31/20 Levothyroxine Sodium 1 tab PO DAILY 08/31/20 Metformin HCl [Glucophage*] 1 tab PO DAILY 08/31/20 Simvastatin 1 tab PO BEDTIME 08/31/20 Tramadol HCl [Ultram] 50 mg PO Q6H PRN #30 tablet 08/31/20 Trazodone HCl 1 tab PO BEDTIME 08/31/20 carvediloL [Carvedilol] 1 tab PO BID 08/31/20 clonazePAM [Clonazepam] 0.25 mg PO DAILY PRN 08/31/20 New Medications: Aspirin [Aspirin EC 81 MG] 81 mg PO DAILY #30 tablet. Tramadol HCl [Ultram] 50 mg PO Q6H PRN #30 tablet PRN Reason: PAIN Followup: Pilar Quintero MD [Primary Care Provider] - Law Vickers MD [ACTIVE - CAN ADMIT] - (Call Office on thursday09/03/2020 to schedule an outpatient stress test.)
[2020-08-31] MEDS ORDERED: HYDROCODONE/APAP 5/325 MG TAB PO ONE (11:44)
[2020-08-31 12:07] VITALS: BP 124/70; TEMP 97.1
[2020-08-31 13:55] VITALS: O2SAT 97
--- NOTE | 2020-09-02 07:47 | CON ---
Date of Consultation: 08/31/2020 Reason For Consultation: Chest pain. History Of Present Illness: Ms. Mcpherson is a 50-year-old woman with history of depression, hyperten ben, hypothyroidism, nephrolithiasis, and dyslipidemia, who came in with chest pain in the substerna l area that radiated to the left arm. She has some diaphoresis and shortness of breath. She had kenn e feeling of pressure. These are recurrent symptoms. Her last episode lasted almost a day and a micki f, but yet she still had a normal EKG, normal troponin, normal chest x-ray. She denied any fever or chills or cough. Her symptoms were not exertional. Denied PND, orthopnea, pedal edema, palpitations , or syncope. Past Medical History: As stated above. Allergies: LAMICTAL, SULFA, TOBRAMYCIN, TORADOL, TRAMADOL, AND WELLBUTRIN. Review of Systems: Negative. Social History: Negative. Family History: Negative. Medications: Include aspirin, Synthroid, Coreg, Seroquel, simvastatin, and trazodone. Physical Examination: Vital Signs: Stable. She was afebrile. She weighed 216 pounds. Blood pressure is 124/70. HEENT: Negative. Neck: Supple without any bruit, lymphadenopathy, JVD, or thyromegaly. Chest: Clear to auscultation and percussion. Cardiac: Revealed a regular rhythm and rate. No murmurs, gallops, or rubs. Abdomen: Benign. Extremities: Revealed no clubbing, cyanosis, or edema. Diagnostic Data: All within normal limit. Her chest x-ray was normal. Her EKG was normal with nons pecific changes. Impression And Plan: Patient is with atypical chest pain, fairly normal EKG. Echocardiogram is norm al. Chest x-ray is normal. CPKs, MBs, troponin and BNP were normal. I think her symptoms sound mor e like gastroesophageal reflux disease, but nevertheless she has hypertension. She has dyslipidemia and I think she is at high risk for developing coronary artery disease and recommend that she can hav e a stress test as an outpatient. I will make an arrangement for that. Her blood pressure and macario sterol are fairly well controlled. Case was discussed with Dr. Shafer. FRANCES/DUNCAN Voice ID: [id number] Report ID: [id number]
--- NOTE | 2020-09-03 08:39 | ECHO ---
HEIGHT: 5 ft 4 in WEIGHT: 216 lb 4 oz DATE OF STUDY: 08/31/[address]: Law Butler MD 2-DIMENSIONAL: YES M.MODE: YES DOPPLER: YES COLOR FLOW: YES TDS: PORTABLE: DEFINITY: BUBBLE STUDY: DIAGNOSIS: CHEST PAIN CARDIAC HISTORY: CATHERIZATION: NO SURGERY: NO PROSTHETIC VALVE: NO PACEMAKER: NO MEASUREMENTS (cm) DIASTOLIC (NORMALS) SYSTOLIC (NORMALS) IVSd 1.1 (0.6-1.2) LA Diam 2.7 (1.9-4.0) LVEF 65% LVIDd 2.9 (3.5-5.7) LVIDs 1.9 (2.0-3.5) %FS 34% LVPWd 1.1 (0.6-1.2) Ao Diam 2.4 (2.0-3.7) 2 DIMENSIONAL ASSESSMENT: RIGHT ATRIUM: NORMAL LEFT ATRIUM: NORMAL RIGHT VENTRICLE: NORMAL LEFT VENTRICLE: NORMAL TRICUSPID VALVE: NORMAL MITRAL VALVE: NORMAL PULMONIC VALVE: NORMAL AORTIC VALVE: NORMAL PERICARDIAL EFFUSION: NONE AORTIC ROOT: NORMAL LEFT VENTRICULAR WALL MOTION: NORMAL DOPPLER/COLOR FLOW: NORMAL COMMENTS: NORMAL 2-DIMENSIONAL ECHOCARDIOGRAM WITH DOPPLER. NO WALL MOTION ABNORMALITY. NO EFFUSION. TECHNOLOGIST: ELAYNE ARAIZA
== END 2020-08-31 12:28 | disposition home or self-care (01) ==
LOC: ER 22:15 → ERHOLD 23:59 → 2ND 08-31 00:22
PROVIDERS: ADMIT Internal Medicine; ATTEND Internal Medicine
DX: R07.89 Other chest pain (principal); F32.9 Major depressive disorder, single episode, unspecified; I10 Essential (primary) hypertension; E03.9 Hypothyroidism, unspecified; Z79.82 Long term (current) use of aspirin; Z20.828 Contact with and (suspected) exposure to other viral communicable diseases; R94.31 Abnormal electrocardiogram [ECG] [EKG]; E66.9 Obesity, unspecified; R73.03 Prediabetes; E78.00 Pure hypercholesterolemia, unspecified; Z79.84 Long term (current) use of oral hypoglycemic drugs; E78.2 Mixed hyperlipidemia; Z68.36 Body mass index [BMI] 36.0-36.9, adult
CPT/HCPCS: 93005 ×2; 93306; 85025; 80048; 36415; 83735; 85610; 85379; 80076; 84484 ×3; 83880; 71045; 96375; 96374; 99285; U0002; J2270 ×4; J2405 ×2; G0378 ×2

== ENCOUNTER 2021-02-07 17:54 | Emergency (ER) | payer MEDICARE ==
--- OUTSIDE RECORDS SUMMARY | 2021-02-07 17:57 | XMS REPORT | Continuity of Care Document ---
:1970 Author Organization [facility] t Address [address] [place] [address] Care Team Providers Name Role Phone Morales Kinsey Attending Clinician Radha Leyva MD Attending Clinician Man VEGA L Attending Clinician Unavailable Yazan EID Attending Clinician Bruce Guardado MD, J Attending Clinician Eduardo EID Attending Clinician Samantha TIRADO Attending Clinician Bruce Guardado MD, J Admitting Clinician Problems This patient has no known problems. Allergies, Adverse Reactions, Alerts This patient has no known allergies or adverse reactions. Social History Social Habit Start Date Stop Date Quantity Comments Source Sex Assigned At [birth year] [facility] ethodist 00:00:00 00:00:00 Medications This patient has no known medications. Vital Signs Vital Name Observation Time Observation Value Comments Source Systolic blood 2021-02-07 16:25:24 121 mm[Hg] Delilahto n [facility] pressure Diastolic blood 2021-02-07 16:25:24 73 mm[Hg] Delilaht on [facility] pressure Heart rate 2021-02-07 16:25:24 87 /min [place] [facility] Body temperature 2021-02-07 16:25:24 36.61 Lynette [place] [facility] Respiratory rate 2021-02-07 16:25:24 18 /min Delilah abbie [facility] Oxygen saturation in 2021-02-07 16:25:24 95 /min Jaspreet Alejandra Arterial blood by Pulse oximetry Procedures This patient has no known procedures. Encounters Start End Encounter Admission Attending Care Care Encounter Source Date/Time Date/Time Type Type Clinicians Facility Department ID 2021-02-07 2021-02-07 Emergency [facility] [id number] [place] 00:00:00 00:00:[address] 2021-02-07 2021-02-07 Telephone [facility] [id number] 00:00:00 00:00:00 [facility] [id number] [place] [id number] Professio [id number] nal [address] 2021-02-01 2021-02-01 Telephone Gordon [facility] [id number] 00:00:00 00:00:00 Chrissy [facility] [id number] Radha PERRY [id number] [place] [id number] [facility] 2021-02-01 2021-02-01 Transition Sommer Conway [id number] 00:00:00 00:00:00 of Care Heather Juan [id number] Jamarc[place] [id number] 2021-01-29 2021-01-31 [facility] Arcenio Hand [id number] 16:44:00 17:15:00 Encounter Huy Barrera [id number] [facility] [id number] 2021-01-29 2021-01-29 Office Samantha [facility] [id number] 15:27:18 16:23:[address] [facility] [id number] [place] [id number] Profess[facility] [id number] nal 0[address] Results This patient has no known results.
[2021-02-07 21:55] LABS: Basophils % 0.8 % (0-1.3); Hematocrit 40.7 % (36.0-45.0); Lymphocytes % 34.6 % (15.3-44.8); MPV 9.1 fL (7.6-11.3); RBC Red Blood Cell Count 4.57 M/uL (3.86-4.86)
[2021-02-07 21:56] LABS: Protime INR 0.95
[2021-02-07 22:07] LABS: ALT/SGPT 109 U/L (12-78); AST/SGOT 51 U/L (15-37); Albumin 3.9 g/dL (3.4-5.0); Alkaline Phosphatase 70 U/L (45-117); BUN Blood Urea Nitrogen 8 mg/dL (7-18); Bicarbonate 26 mmol/L (21-32); Bilirubin Direct < 0.1 mg/dL (0-0.2); Bilirubin Total 0.3 mg/dL (0.2-1.0); Glucose Level 195 mg/dL (74-106); NT PRO-BNP 48 pg/mL (<125); Sodium Level 137 mmol/L (136-145); Troponin (Emerg Dept Use Only) < 0.02 ng/mL (0.0-0.045)
[2021-02-07 22:17] LABS: Urine Blood Trace-intact (Negative); Urine Glucose 2+ (Negative); Urine Protein Negative (Negative)
--- NOTE | 2021-02-07 22:58 | ER ---
Nurse's Notes [facility] Name: Sadia Mcpherson Age: 50 yrs Sex: Female : 1970 Arrival Date: 02/07/2021 Time: 17:57 Bed 28 Private MD: Diagnosis: Dizziness and giddiness;Diabetes Presentation: 02/07 18:23 Chief complaint: Patient states: i was diagnosed with DKA last week, and my blood sugar tw2 was 598, went to ER in [place], Spouse and/or significant other states: they were telling us her electrolytes we off but they lyric rushed us out of there and we were trying to decide on where to go and decided to not go to [facility]. Coronavirus screen: nausea, Client presents with at least one sign or symptom that may indicate coronavirus-19. Standard/surgical mask placed on the client. Provider contacted for isolation considerations. Ebola Screen: Patient denies travel to an Ebola-affected area in the 21 days before illness onset. Initial Sepsis Screen: Does the patient meet any 2 criteria? No. Patient's initial sepsis screen is negative. Does the patient have a suspected source of infection? No. Patient's initial sepsis screen is negative. Risk Assessment: Do you want to hurt yourself or someone else? Patient reports no desire to harm self or others. Note "i took my sugar and it was 100 something but i still feel foggy". Onset of symptoms was February 07, 2021. 18:23 Method Of Arrival: Ambulatory tw2 18:23 Acuity: JAYLEN 3 tw2 Triage Assessment: 18:26 General: Appears in no apparent distress. obese, well groomed, Behavior is calm, tw2 cooperative, appropriate for age. Pain: Denies pain. GI: Reports nausea. 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 - since the progesterone tw2 Historical: - Allergies: 18:29 Lamictal; tw2 18:29 Sulfa (Sulfonamide Antibiotics); tw2 18:29 Tobramycin; tw2 18:29 Toradol; tw2 18:29 Wellbutrin; tw2 - Home Meds: 18:29 aspirin 81 mg Oral chew 1 tab once daily [Active]; Coreg 12.5 mg Oral tab 1 tab 2 times tw2 per day [Active]; levothyroxine 75 mcg tab 1 tab once daily [Active]; Seroquel 300 mg oral tab 1 tab once daily [Active]; simvastatin 20 mg oral tab 1 tab once daily [Active]; progesterone (bulk) 0.25 mg miscellaneous powd 1 tab daily [Active]; spironolactone 25 mg Oral tab 1 tab once daily [Active]; - PMHx: 18:29 Kidney stones; Hypothyroidism; HYPERTHYROID; Hypertension; Depression; tw2 - PSHx: 18:29 kidney stone surgery; tw2 - Immunization history:: Adult Immunizations. - Social history:: Smoking status: . Screenin:40 Abuse screen: Denies threats or abuse. Denies injuries from another. Nutritional jm8 screening: No deficits noted. Tuberculosis screening: No symptoms or risk factors identified. Fall Risk None identified. Assessment: 19:48 Reassessment: Pt reports feeling shaky. Vital signs and BGL rechecked in triage. jb4 20:40 General: Appears in no apparent distress. comfortable, Behavior is calm, cooperative, jm8 appropriate for age, Denies fever, feeling ill, chills. Pain: Denies pain. Neuro: Level of Consciousness is awake, alert, obeys commands, Oriented to person, place, time, Reports blurred vision feeling clammy, and weakness. Cardiovascular: No deficits noted. Respiratory: No deficits noted. GI: No deficits noted. Abdomen is round. GI: Parent/caregiver reports the patient having hypoglycemia episode earlier today. Blood sugar currently in the 200s but got down into the 50s earlier. Patient states that she is a new diabetic and has been following her medication regiment but today her sugars bottomed out. : No deficits noted. EENT: No deficits noted. Derm: No deficits noted. Musculoskeletal: No deficits noted. 23:43 Reassessment: Patient is alert, oriented x 3, equal unlabored respirations, skin bb warm/dry/pink. pt verbalized understanding of and agrees to plan of care discharge instructions given pt ambulated with with steady gait to exit accompanied by spouse. Vital Signs: 18:23 BP 137 / 92; Pulse 80; Resp 17; Temp 97.9(TE); Pulse Ox 98% on R/A; Weight 88.45 kg tw2 (R); Height 5 ft. 4 in. (162.56 cm); Pain 0/10; 19:48 BP 146 / 103; Pulse 87; Resp 18; Pulse Ox 100% on R/A; jb4 23:44 BP 110 / 80; Pulse 84; Resp 16 S; Temp 98.3(O); Pulse Ox 98% on R/A; bb 18:23 Body Mass Index 33.47 (88.45 kg, 162.56 cm) tw2 ED Course: 17:57 Patient arrived in ED. mr 18:26 Triage completed. tw2 18:26 Arm band placed on. tw2 20:39 Domingo Miranda MD is Attending Physician. [facility] 20:43 Patient has correct armband on for positive identification. Bed in low position. Call jm8 light in reach. Side rails up X2. Adult w/ patient. 21:30 XRAY Chest (1 view) In Process Unspecified. EDMS 21:37 Liver (Hepatic) Function Sent. jm8 21:37 Basic Metabolic Panel Sent. jm8 21:37 CBC with Automated Diff Sent. jm8 21:38 Inserted saline lock: 18 gauge Accessed ,peripheral vein via ultrasound, utilizing [facility] static ultrasound technique. 21:49 CT Head Brain wo Cont In Process Unspecified. EDMS 22:03 EKG done, by ED staff. jm8 23:45 No provider procedures requiring assistance completed. IV discontinued, intact, bb bleeding controlled, No redness/swelling at site. Pressure dressing applied. Administered Medications: No medications were administered Point of Care Testing: Blood Glucose: 19:47 Blood Glucose: 223 mg/dL; jb4 Ranges: Outcome: 22:58 Discharge ordered by . [facility] 23:45 Discharged to home ambulatory, with family. 23:45 Condition: stable 23:45 Discharge instructions given to patient, Instructed on discharge instructions, follow up and referral plans. Demonstrated understanding of instructions, follow-up care. 23:46 Patient left the ED. bb Signatures: Dispatcher [employer] EDGA Fatemeh GrayCaty, RN RN bb Maryam Haywood RN RN tw2 Vijay Bustamante, SILVIA VEGA jb4 Domingo Miranda MD MD 7 Mariano Freeman, SILVIA RN 8
--- NOTE | 2021-02-07 22:58 | EDPHYS ---
Physician Documentation [facility] Name: Sadia Mcpherson Age: 50 yrs Sex: Female : 1970 Arrival Date: 02/07/2021 Time: 17:57 Bed 28 Private MD: ED Physician Domingo Miranda HPI: 02/07 22:18 This 50 yrs old Female presents to ER via Ambulatory with complaints of mh7 Diabetic, Blurred Vision, Dizziness, Nausea, Abnormal Lab Results. 22:19 The patient or guardian reports hypoglycemia, that was potentially precipitated by not mh7 eating, with the patient's symptoms witnessed by family, Treatment prior to arrival includes: ingestion of sugary substance, food. Onset: The symptoms/episode began/occurred this morning, today. Associated signs and symptoms: Pertinent positives: nausea, Dizziness, Blurred Vision, Pertinent negatives: anorexia, constipation, decreased urine output, diaphoresis, diarrhea, dry skin, hair loss, ketones in urine, polydipsia, polyphagia, polyuria, seizure activity, skin flushing, urinary incontinence, vomiting. Current symptoms: In the emergency department the patient's symptoms have improved, markedly. States that she did not eat this morning due to fasting for appointment with her doctor. She took her insulin and Metformin as usual. She started to feel dizzy, nausea, and blurred vision. She checked her blood sugar and it was 56 and then ate food. She is concerned that her potassium may be low.. 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 - since the progesterone tw2 Historical: - Allergies: 18:29 Lamictal; tw2 18:29 Sulfa (Sulfonamide Antibiotics); tw2 18:29 Tobramycin; tw2 18:29 Toradol; tw2 18:29 Wellbutrin; tw2 - Home Meds: 18:29 aspirin 81 mg Oral chew 1 tab once daily [Active]; Coreg 12.5 mg Oral tab 1 tab 2 times tw2 per day [Active]; levothyroxine 75 mcg tab 1 tab once daily [Active]; Seroquel 300 mg oral tab 1 tab once daily [Active]; simvastatin 20 mg oral tab 1 tab once daily [Active]; progesterone (bulk) 0.25 mg miscellaneous powd 1 tab daily [Active]; spironolactone 25 mg Oral tab 1 tab once daily [Active]; - PMHx: 18:29 Kidney stones; Hypothyroidism; HYPERTHYROID; Hypertension; Depression; tw2 - PSHx: 18:29 kidney stone surgery; tw2 - Immunization history:: Adult Immunizations. - Social history:: Smoking status: . ROS: 22:19 Constitutional: Negative for fever, chills, and weight loss, Eyes: Negative for injury, mh7 pain, redness, and discharge, ENT: Negative for injury, pain, and discharge, Neck: Negative for injury, pain, and swelling, Cardiovascular: Negative for chest pain, palpitations, and edema, Respiratory: Negative for shortness of breath, cough, wheezing, and pleuritic chest pain. 22:19 Back: Negative for injury and pain, : Negative for injury, bleeding, discharge, and swelling, MS/Extremity: Negative for injury and deformity, Skin: Negative for injury, rash, and discoloration, Neuro: Negative for headache, weakness, numbness, tingling, and seizure, Psych: Negative for depression, anxiety, suicide ideation, homicidal ideation, and hallucinations, Allergy/Immunology: Negative for hives, rash, and allergies, Endocrine: Negative for neck swelling, polydipsia, polyuria, polyphagia, and marked weight changes, Hematologic/Lymphatic: Negative for swollen nodes, abnormal bleeding, and unusual bruising. 22:19 Abdomen/GI: Negative for abdominal pain, vomiting, diarrhea, constipation, abdominal cramps, abdominal distension, anorexia, dysphagia, hematemesis, black/tarry stool, rectal pain, rectal bleeding, bowel incontinence, flatulence. Exam: 22:19 Constitutional: This is a well developed, well nourished patient who is awake, alert, mh7 and in no acute distress. Head/Face: Normocephalic, atraumatic. Eyes: Pupils equal round and reactive to light, extra-ocular motions intact. Lids and lashes normal. Conjunctiva and sclera are non-icteric and not injected. Cornea within normal limits. Periorbital areas with no swelling, redness, or edema. ENT: Nares patent. No nasal discharge, no septal abnormalities noted. Tympanic membranes are normal and external auditory canals are clear. Oropharynx with no redness, swelling, or masses, exudates, or evidence of obstruction, uvula midline. Mucous membranes moist. Neck: Trachea midline, no thyromegaly or masses palpated, and no cervical lymphadenopathy. Supple, full range of motion without nuchal rigidity, or vertebral point tenderness. No Meningismus. Chest/axilla: Normal chest wall appearance and motion. Nontender with no deformity. No lesions are appreciated. Cardiovascular: Regular rate and rhythm with a normal S1 and S2. No gallops, murmurs, or rubs. Normal PMI, no JVD. No pulse deficits. Respiratory: Lungs have equal breath sounds bilaterally, clear to auscultation and percussion. No rales, rhonchi or wheezes noted. No increased work of breathing, no retractions or nasal flaring. Abdomen/GI: Soft, non-tender, with normal bowel sounds. No distension or tympany. No guarding or rebound. No evidence of tenderness throughout. Back: No spinal tenderness. No costovertebral tenderness. Full range of motion. Skin: Warm, dry with normal turgor. Normal color with no rashes, no lesions, and no evidence of cellulitis. MS/ Extremity: Pulses equal, no cyanosis. Neurovascular intact. Full, normal range of motion. Neuro: Awake and alert, GCS 15, oriented to person, place, time, and situation. Cranial nerves II-XII grossly intact. Motor strength 5/5 in all extremities. Sensory grossly intact. Cerebellar exam normal. Normal gait. Psych: Awake, alert, with orientation to person, place and time. Behavior, mood, and affect are within normal limits. Vital Signs: 18:23 BP 137 / 92; Pulse 80; Resp 17; Temp 97.9(TE); Pulse Ox 98% on R/A; Weight 88.45 kg tw2 (R); Height 5 ft. 4 in. (162.56 cm); Pain 0/10; 19:48 BP 146 / 103; Pulse 87; Resp 18; Pulse Ox 100% on R/A; jb4 23:44 BP 110 / 80; Pulse 84; Resp 16 S; Temp 98.3(O); Pulse Ox 98% on R/A; bb 18:23 Body Mass Index 33.47 (88.45 kg, 162.56 cm) tw2 MDM: 22:54 Differential diagnosis: DKA, hyperglycemia, hypoglycemic episode. Data reviewed: [facility] signs, nurses notes, old medical records, lab test result(s), CBC, electrolytes, urinalysis, EKG, radiologic studies, CT scan, plain films. Data interpreted: Pulse oximetry: on room air is 100 %. Interpretation: normal. Counseling: I had a detailed discussion with the patient and/or guardian regarding: the historical points, exam findings, and any diagnostic results supporting the discharge/admit diagnosis, the presence of at least one elevated blood pressure reading (>120/80) during this emergency department visit, lab results, radiology results, the need for outpatient follow up. Response to treatment: the patient's symptoms have resolved after treatment, the patient's blood pressure is in an acceptable range, mental status has returned to baseline, the patient no longer shows bradycardia, the patient is not short of breath, the patient is not tachycardic, the patient's pain is gone, the patient's temperature has normalized. 22:58 Patient medically screened. [facility] 02/07 18:45 Order name: Glucose, Ancillary Testing; Complete Time: 20:23 [facility] 02/07 20:35 Order name: Glucose, Ancillary Testing [facility] 02/07 20:56 Order name: Basic Metabolic Panel [facility] 02/07 20:56 Order name: CBC with Diff [facility] 02/07 20:56 Order name: LFT's [facility] 02/07 20:56 Order name: Magnesium; Complete Time: 22: [facility] 02/07 20:56 Order name: NT PRO-BNP; Complete Time: 22: [facility] 02/07 20:56 Order name: PT-INR; Complete Time: 22: [facility] 02/07 20:56 Order name: Troponin (emerg Dept Use Only); Complete Time: 22:26 [facility] 02/07 20:56 Order name: XRAY Chest (1 view) [facility] 02/07 20:57 Order name: Basic Metabolic Panel; Complete Time: 22:26 [facility] 02/07 20:57 Order name: CBC with Automated Diff; Complete Time: 22: [facility] 02/07 20:57 Order name: Liver (Hepatic) Function; Complete Time: 22: [facility] 02/07 22:16 Order name: Urine Dipstick-Ancillary; Complete Time: 22: [facility] 02/07 18:33 Order name: Blood Glucose Level; Complete Time: 18:33 tw2 02/07 20:56 Order name: EKG; Complete Time: 20:57 [facility] 02/07 20:56 Order name: Cardiac monitoring; Complete Time: 22:03 [facility] 02/07 20:56 Order name: EKG - Nurse/Tech; Complete Time: 22:03 [facility] 02/07 20:56 Order name: IV Saline Lock; Complete Time: 21:38 [facility] 02/07 20:56 Order name: Labs collected and sent; Complete Time: 21:38 [facility] 02/07 20:56 Order name: O2 Per Protocol; Complete Time: 21:38 [facility] 02/07 20:56 Order name: O2 Sat Monitoring; Complete Time: 21:38 [facility] 02/07 20:57 Order name: CT Head Brain wo Cont [facility] 02/07 20:57 Order name: Urine Dipstick-Ancillary (obtain specimen); Complete Time: 22:16 mh7 Administered Medications: No medications were administered Point of Care Testing: Blood Glucose: 19:47 Blood Glucose: 223 mg/dL; jb4 Ranges: Critical Glucose Levels:Adult <50 mg/dl or >400 mg/dl <40 mg/dl or >180 mg/dl Disposition: 02/07/21 22:58 Discharged to Home. Impression: Dizziness and giddiness, Diabetes. - Condition is Stable. - Discharge Instructions: Type 2 Diabetes Mellitus, Diagnosis, Adult, Jjmy-ni-Qslz, Dizziness, Vutl-as-Gklx. - Medication Reconciliation Form, Thank You Letter, Antibiotic Education, Prescription Opioid Use form. - Follow up: Private Physician; When: 1 - 2 days; Reason: Worsening of condition, Recheck today's complaints, Continuance of care, Re-evaluation by your physician. - Problem is new. - Symptoms have improved. Signatures: Dispatcher [employer] EDMS Caty Sadler RN RN Jayesh Enriquez PA PA cp Wise, Tara, RN RN tw2 Domingo Miranda MD MD 7 Corrections: (The following items were deleted from the chart) 22:59 22:58 02/07/2021 22:58 Discharged to Home. Impression: Dizziness and giddiness. [facility] Condition is Stable. Forms are Medication Reconciliation Form, Thank You Letter, Antibiotic Education, Prescription Opioid Use. Follow up: Private Physician; When: 1 - 2 days; Reason: Worsening of condition, Recheck today's complaints, Continuance of care, Re-evaluation by your physician. Problem is new. Symptoms have improved. mh7 23:46 22:59 02/07/2021 22:58 Discharged to Home. Impression: Dizziness and giddiness; bb Diabetes. Condition is Stable. Discharge Instructions: Type 2 Diabetes Mellitus, Diagnosis, Adult, Wjlt-ra-Cesj, Dizziness, Nyrs-tc-Eqoc. Forms are Medication Reconciliation Form, Thank You Letter, Antibiotic Education, Prescription Opioid Use. Follow up: Private Physician; When: 1 - 2 days; Reason: Worsening of condition, Recheck today's complaints, Continuance of care, Re-evaluation by your physician. Problem is new. Symptoms have improved. 7
[2021-02-08 00:29] VITALS: BP 110/80; TEMP 98.3; O2SAT 98
--- NOTE | 2021-02-08 08:32 | RAD REPORT ---
EXAM DESCRIPTION: RAD - Chest Single View - 02/07/2021 9:30 pm CLINICAL HISTORY: Dizziness Chest pain. COMPARISON: Chest Single View dated 08/30/2020 FINDINGS: Portable technique limits examination quality. The lungs are grossly clear. The heart is normal in size. No displaced fractures. IMPRESSION: No acute intrathoracic process suspected.
--- NOTE | 2021-02-08 11:30 | RAD REPORT ---
EXAM DESCRIPTION: Head Brain Wo Cont CLINICAL HISTORY: DIZZINESS COMPARISON: None Available TECHNIQUE: Contiguous axial CT images of the head were obtained. Coronal and sagittal reconstructions were created from the axial data. This exam was performed according to our departmental dose-optimization program, which includes autom ated exposure control, adjustment of the mA and/or kV according to patient size and/or use of iterati ve reconstruction technique. FINDINGS: There is no evidence of acute mass, mass effect, midline shift or hemorrhage. The ventricl es and extra-axial CSF spaces are unremarkable. The brain parenchyma appears normal for the patient's age. No acute abnormalities of the bones is seen. IMPRESSION: No acute intracranial abnormality. Electronically signed by: Kenney Vegas 02/07/2021 10:09 PM CDT Due to temporary technical issues with the PACS/Fluency reporting system, reports are being signed by the in house radiologist without review as a courtesy to ensure prompt reporting. The interpreting r adiologist is fully responsible for the content of the report.
--- NOTE | 2021-02-09 07:26 | EKG ---
Test Date: 2021-02-07 Test Time: 21:58:35 Satin Finisher: SILVIA MEASUREMENT RESULTS: Intervals: Rate: 81 NM: 140 QRSD: 88 QT: 374 QTc: 434 Whick: P: 49 NM: 140 QRS: 43 T: 59 INTERPRETIVE STATEMENTS: Normal sinus rhythm Normal ECG Compared to ECG 08/30/2020 22:23:10 ST (T wave) deviation no longer present Electronically Signed On 02-09-21 07:22:26 CDT by Law Butler
== END 2021-02-07 23:46 | disposition home or self-care (01) ==
LOC: ER 17:54
DX: E11.649 Type 2 diabetes mellitus with hypoglycemia without coma (principal); I10 Essential (primary) hypertension; F32.9 Major depressive disorder, single episode, unspecified; Z79.82 Long term (current) use of aspirin; Z88.2 Allergy status to sulfonamides; Z88.3 Allergy status to other anti-infective agents; Z88.5 Allergy status to narcotic agent; Z88.8 Allergy status to other drugs, medicaments and biological substances
CPT/HCPCS: 36415; 70450; 71045; 80048; 80076; 81003; 82947; 83735; 83880; 84484; 85025; 85610; 93005; 99284

== ENCOUNTER 2021-10-28 13:36 | Emergency (ER) | payer MEDICARE ==
--- OUTSIDE RECORDS SUMMARY | 2021-10-28 13:41 | XMS REPORT | Continuity of Care Document ---
:1970 Author Organization [facility] t Address [address] [place] [address] [address]. [address] [place] [address] Care Team Providers Name Role Phone Morales KANG Primary Care Physician Unavailable LANCE Attending Clinician Unavailable SIMONA Attending Clinician Unavailable Lab, - Db Attending Clinician Unavailable Lance EID Attending Clinician Morales Kang MD Attending Clinician Jarocho EID Attending Clinician Samantha TIRADO Attending Clinician SAMANTHA Attending Clinician Unavailable LEANN Attending Clinician Unavailable Leann EID Attending Clinician Doctor Unassigned, Name Attending Clinician Unavailable Morales MARES Attending Clinician Unavailable Morales KANG Attending Clinician Unavailable ABHAY Attending Clinician Unavailable SHIRLEY GA Attending Clinician Unavailable Morales Kinsey Attending Clinician Radha Leyva MD Attending Clinician Man VEGA, L Attending Clinician Unavailable Yazan EID Attending Clinician Bruce Guardado MD, J Attending Clinician Eduardo EID Attending Clinician Morales REAL Attending Clinician Unavailable KAREY Attending Clinician Unavailable JEREMY Attending Clinician Unavailable MANUEL BRISENO Attending Clinician Unavailable LEANN Admitting Clinician Unavailable Leann EID Admitting Clinician Bruce Guardado MD, J Admitting Clinician DOULATRAM Admitting Clinician Unavailable VANAPHAN Admitting Clinician Unavailable Payers Payer Name Policy Type Policy Number Effective Date Expiration Date Jared FIELDS/JASMIN [id number] 2019 MEDICARE ADVANTAGE 00:00:00 Problems Condition Condition Condition Status Onset Resolution Last Treating Co mments Source Name Details Category Date Date Treatment Clinician Date Acquired Acquired Disease Active Unive rs hypothyroi hypothyroi 6 it y of dism dism 00:: [place] [facility] Dyslipidem Dyslipidem Disease Active U brenda ia ia 6 ity of 00:00: [place] [facility] Vitamin D Vitamin D Disease Active Uni vers deficiency deficiency 5- it y of 00:: [place] [facility] Elevated Elevated Disease Active Unive rs liver liver 5-05 ity of enzymes enzymes 00:00: [place] [facility] 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 Added automatic ally from request for surgery [id number] Menorrhagi Menorrhagi Disease Active U brenda a with a with 2-28 ity of irregular irregular 00:00: [place] cycle cycle 00 Medical Branch Obesity Obesity Disease Active Univers with body with body 2-27 ity of mass index [place] index 00:[place] 30 [place] 30 or 00 Medical greater greater Branch Intramural Intramural Disease Active Overview : Univers leiomyoma leiomyoma 03-07 Formattin i ty of of uterus of uterus 00:00: g of this [place] 00 note Medical might be Branch different from the original. 03/04/19 - pelvic US revealed a uterus measuring 8.7 x 4.7 x 5.5 cm, an ES of 3.4 mm and two small fibroids measuring less than 1.1 cm. Ovaries look normal in size and appearanc e. Cervical Cervical Disease Active Overview: Un fernanda high risk high risk 5-22 Formattin i ty of human human 00:00: g of this [place] papillomav papillomav 00 note Me dical irus (HPV) irus (HPV) might be Branch DNA test DNA test different positive positive from the original. 10/28/18 - pap smear normal; HPV 16 positive - colposcop y normal. ECC benign. 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 1-17 ity of 00:00: [address] Bilateral Bilateral Disease Active Uni vers lower lower 7-20 [place] of extremity extremity [place] edema edema [facility] Overweight Overweight Disease Active U nivers (BMI (BMI 7-20 ity of 25.0-29.9) 25.0-29.9) [place] [facility] Low back Low back Disease Active Unive rs pain pain 3-14 ity of 00:00: [address] Hydronephr Hydronephr Disease Active U nivers osis osis 3-14 ity of 00:00: [address] History of History of Disease Active U nivers urinary urinary 3-14 ity of stone stone 00:00: [address] Staph skin Staph skin Disease Active U nivers infection infection ity of [facility] Prediabete Prediabete Disease Active U nivers s s ity of [facility] Allergies, Adverse Reactions, Alerts Allergy Allergy Status Severity Reaction(s) Onset Inactive Treating Comm ents Source Name Type Date Date Clinician Lamotrig Propensi Active Rash Alexandre Univer s ine ty to 711 Supa ity of adverse 00:00: [place] reaction 00 [facility] Minocycl Propensi Active Rash Univer s ine ty to 711 ity of adverse 00:00: [place] reaction [facility] Sulfa Propensi Active Rash Univers (Sulfona ty to 04-21 ity of mide adverse 00:00: [place] Antibiot reaction 00 Medica l ics) s Branch Bupropio Propensi Active Swelling 2017- Univ ers n ty to 04-21 ity of adverse 00:00: [place] reaction 00 Medical s Branch LAMOTRIG DRUG Active High Rash 2017- Univers INE INGREDI 04-21 ity of 00:00: [place] 00 Medical Branch MINOCYCL DRUG Active Rash Univers INE INGREDI 04-21 ity of 00:00: [place] 00 Medical Branch SULFA Drug Active Rash 2017- Univers (SULFONA Class 04-21 ity of MIDE 00:00: [place] ANTIBIOT 00 Medical ICS) Branch BUPROPIO DRUG Active Swelling 2016- Univer s N INGREDI 04-21 ity of 00:00: [place] 00 Medical Branch Bupropio Drug Active Other - See 1900-0 Uni vers n Hcl Allergy comments 10-12 ity of 00:00: [place] 00 Medical Branch Sulfamet Drug Active Other - See 1900-0 Uni vers hoxazole Allergy comments 10-12 ity o f 00:00: [place] 00 Medical Branch Tobramyc Drug Active Unknown - 1900-0 Unive rs in Allergy See comments 10-12 ity of 00:00: [place] 00 Medical Branch DOXYCYCL DRUG Active Unknown-Cmnt 1900-0 Un fernanda INE INGREDI 1- ity of MONOHYDR 00:00: [place] ATE 00 Medical Branch TOBRAMYC DRUG Active Unknown-Cmnt 1900-0 Un [place]anda IN INGREDI 10-12 ity of 00:00: [place] 00 Medical Branch BUPROPIO DRUG Active Other-Cmnt 1900-0 Univ ers N HCL INGREDI 10-12 ity of 00:00: [place] 00 Medical Branch SULFAMET DRUG Active Other-Cmnt 1900-0 Univ ers HOXAZOLE INGREDI 10-12 ity of 00:00: [place] 00 Medical Branch Social History Social Habit Start Date Stop Date Quantity Comments Source Exposure to Not sure [facility] SARS-CoV-2 [place] [facility] (event) Branch Alcohol intake 2021-10-23 2021-10-23 Current University of 00:00:00 00:00:00 non-drinker of [facility] [place] alcohol Branch (finding) Tobacco use and 2018-04-29 2018-04-29 Never used Universit y of exposure 00:00:00 00:00:00 [facility] Sex [birth year] At [birth year] Universit y of 00:00:00 00:00:00 [facility] Smoking Status Start Date Stop Date Source Never smoker [facility] Medications Ordered Filled Start Stop Current Ordering Indication Dosage Frequency Signature Comments Components Source Medication Medication Date Date Medication? Clinician (SIG) Name Name levothyroxi Yes [id number] 125ug Take 1 Univers ne 125 mcg 1-12 tablet by ity of tablet 00:00: mouth [place] 00 every Medical morning. Branch simvastatin Yes [id number] 20mg Take 1 Univers 20 mg 1-12 tablet by ity of tablet 00:00: mouth at [place] 00 bedtime. Medical Branch Insulin Yes [id number] 15U inject 15 Univers Glargine 1-12 Units ity of 100 unit/mL 00:00: under the [place] (3 mL) 00 skin daily Medical injection before Branch breakfast. ketorolac 2020-10- No [id number] 30mg Un fernanda (TORADOL) 2-25 12-24 ity of injection 00:15: 23:17 [place] 30 mg 00 :00 [facility] Branch ketorolac 2020-10- No [id number] 30mg 30 mg, Univers (TORADOL) 2-25 12-24 Intramuscu ity of injection 00:15: 23:17 [place], ONCE, [place] 30 mg 00 :00 1 dose, On Medical Fri Branch 10/04/21 at 1815, Routine
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 phenazopyri 2020-10 Yes [id number] 200mg Take 2 Univers dine 100 mg 2-24 tablets by it y of tablet 00:00: mouth 3 [place] 00 (three) Medical times Branch daily. methocarbam 2020-10 Yes [id number] 500mg Take 1 Univers oL 2-24 tablet by ity of (ROBAXIN) 00:00: mouth 4 [place] 500 mg 00 (four) Medical tablet times Branch daily. phenazopyri 2020-10 Yes [id number] 200mg Take 2 Univers dine 100 mg 2-24 tablets by it y of tablet 00:00: mouth 3 [place] 00 (three) Medical times Branch daily. methocarbam 2020-10 Yes [id number] 500mg Take 1 Univers oL 2-24 tablet by ity of (ROBAXIN) 00:00: mouth 4 [place] 500 mg 00 (four) Medical tablet times Branch daily. phenazopyri 2020-10 Yes [id number] 200mg Take 2 Univers dine 100 mg 2-24 tablets by it y of tablet 00:00: mouth 3 [place] 00 (three) Medical times Branch daily. methocarbam 2020-10 Yes [id number] 500mg Take 1 Univers oL 2-24 tablet by ity of (ROBAXIN) 00:00: mouth 4 [place] 500 mg 00 (four) Medical tablet times Branch daily. phenazopyri 2020-10 Yes [id number] 200mg Take 2 Univers dine 100 mg 2-24 tablets by it y of tablet 00:00: mouth 3 00 (three) Medical times Branch daily. cephALEXin 2020-10- Yes [id number] 250mg Take 1 Univers (KEFLEX) 2-24 12-30 capsule by ity of 250 mg 00:00: 05:59 mouth [place] capsule 00 :00 every 6 Medical (six) Branch hours for 5 days. cephALEXin 2020-10- Yes [id number] 250mg Take 1 Univers (KEFLEX) 2-24 12-30 capsule by ity of 250 mg 00:00: 05:59 mouth [place] capsule 00 :00 every 6 Medical (six) Branch hours for 5 days. carvediloL 2020-10 Yes [id number] 25mg Take 1 U nivers 25 mg 1-16 tablet by ity of tablet 00:00: mouth 2 00 (two) Medical times Branch daily. carvediloL 2020-10 Yes [id number] 25mg Take 1 U nivers 25 mg 1-16 tablet by ity of tablet 00:00: mouth 2 (two) Medical times Branch daily. carvediloL 2020-10 Yes [id number] 25mg Take 1 U nivers 25 mg 1-16 tablet by ity of tablet 00:00: mouth 2 (two) Medical times Branch daily. carvediloL 2020-10 Yes [id number] 25mg Take 1 U nivers 25 mg 1-16 tablet by ity of tablet 00:00: mouth 2 [place] 00 (two) Medical times Branch daily. carvediloL 2020-10 Yes [id number] 25mg Take 1 U nivers 25 mg 1-16 tablet by ity of tablet 00:00: mouth 2 [place] 00 (two) Medical times Branch daily. Insulin 2020-10 Yes [id number] 20U inject Uni vers Glargine - 20-22 ity of 100 unit/mL 00:00: Units [place] (3 mL) 00 under the Medical injection skin daily Bran ch before breakfast. Insulin 2020-10 Yes [id number] 20U inject Uni vers Glargine - 20-22 ity of 100 unit/mL 00:00: Units [place] (3 mL) 00 under the Medical injection skin daily Bran ch before breakfast. Insulin 2020-10 Yes [id number] 20U inject Uni vers Glargine - 20-22 ity of 100 unit/mL 00:00: Units [place] (3 mL) 00 under the Medical injection skin daily Bran ch before breakfast. Insulin 2020-10 Yes [id number] 20U inject Uni vers Glargine - 20-22 ity of 100 unit/mL 00:00: Units [place] (3 mL) 00 under the Medical injection skin daily Bran ch before breakfast. Insulin 2020-10 Yes [id number] 20U inject Uni vers Glargine 10-16-22 ity of 100 unit/mL 00:00: Units [place] (3 mL) 00 under the Medical injection skin daily Bran ch before breakfast. lactated 2020-10- No 1000mL at 42 Unive rs ringers IV 10-13 11-02 mL/hr, ity of infusion 14:00: 15:01 1,000 mL, [place] 1,000 mL 00 :00 IV Medical Infusion, Branch ONCE, 1 dose, On Thu08/13/21 at 0900, Routine, Endo Pre-op lactated 2020-10- No 1000mL at 42 Unive rs ringers IV 10-13 11-02 mL/hr, ity of infusion 14:00: 15:01 1,000 mL, [place] 1,000 mL 00 :00 IV Medical Infusion, Branch ONCE, 1 dose, On Thu08/13/21 at 0900, Routine, Endo Pre-op aspirin 2020-10 Yes 81mg Take 81 mg U nivers mg chewable 1-02 by mouth ity of tablet 11:17: daily. [address] 2020-10 Yes 1{tbl} Take 1 Un fernanda ine 1-02 tablet by ity of succinate 11:17: mouth [place] (PRISTIQ) 33 daily. Medical 25 mg Tb24 Branch aspirin 81 2020-10 Yes 81mg Take 81 mg U nivers mg chewable 1-02 by mouth ity of tablet 11:17: daily. [address] 2020-10 Yes 1{tbl} Take 1 Un fernanda ine 1-02 tablet by ity of succinate 11:17: mouth [place] (PRISTIQ) 33 daily. Medical 25 mg Tb24 Branch aspirin 2020-10 Yes 81mg Take 81 mg U nivers mg chewable 1-02 by mouth ity of tablet 11:17: daily. [address] 2020-10 Yes 1{tbl} Take 1 Un fernanda ine 1-02 tablet by ity of succinate 11:17: mouth [place] (PRISTIQ) 33 daily. Medical 25 mg Tb24 Branch aspirin 2020-10 Yes 81mg Take 81 mg U nivers mg chewable 1-02 by mouth ity of tablet 11:17: daily. [address] 2020-10 Yes 1{tbl} Take 1 Un fernanda ine 1-02 tablet by ity of succinate 11:17: mouth [place] (PRISTIQ) 33 daily. Medical 25 mg Tb24 Branch aspirin 2020-10 Yes 81mg Take 81 mg U nivers mg chewable 1-02 by mouth ity of tablet 11:17: daily. [address] 2020-10 Yes 1{tbl} Take 1 Un fernanda ine 1-02 tablet by ity of succinate 11:17: mouth [place] (PRISTIQ) 33 daily. Medical 25 mg Tb24 Branch aspirin 2020-10 Yes 81mg Take 81 mg U nivers mg chewable 1-02 by mouth ity of tablet 11:17: daily. [address] 2020-10 Yes 1{tbl} Take 1 Un fernanda ine 1-02 tablet by ity of succinate 11:17: mouth [place] (PRISTIQ) 33 daily. Medical 25 mg Tb24 Branch aspirin 81 2020-10 Yes 81mg Take 81 mg U nivers mg chewable 1-02 by mouth ity of tablet 11:17: daily. [place] [facility] desvenlafax 2020-10 Yes 1{tbl} Take 1 Un fernanda ine 1-02 tablet by ity of succinate 11:17: mouth [place] (PRISTIQ) 33 daily. Medical 25 mg Tb24 Branch aspirin 81 2020-10 Yes 81mg Take 81 mg U nivers mg chewable 1-02 by mouth ity of tablet 11:17: daily. [place] [facility] desvenlafax 2020-10 Yes 1{tbl} Take 1 Un fernanda ine 1-02 tablet by ity of succinate 11:17: mouth [place] (PRISTIQ) 33 daily. Medical 25 mg Tb24 Branch aspirin 2020-10 Yes 81mg Take 81 mg U nivers mg chewable 1-02 by mouth ity of tablet 10:43: daily. [place] [facility] desvenlafax 2020-10 Yes 1{tbl} Take 1 Un fernanda ine 1-02 tablet by ity of succinate 10:43: mouth [place] (PRISTIQ) 01 daily. Medical 25 mg Tb24 Branch desvenlafax 2020-10 Yes 1{tbl} Take 1 Un fernanda ine 0-05 tablet by ity of succinate 10:10: mouth [place] (PRISTIQ) 52 daily. Medical 25 mg Tb24 Branch desvenlafax 2020-10 Yes 1{tbl} Take 1 Un fernanda ine 0-05 tablet by ity of succinate 10:10: mouth [place] (PRISTIQ) 52 daily. Medical 25 mg Tb24 Branch clobetasoL 2020-10 Yes [id number] Apply to Univers 0.05 % 0-05 area(s) 2 ity of ointment 00:00: (two) [place] 00 times Medical daily. Branch clobetasoL 2020-10 Yes [id number] Apply to Univers 0.05 % 0-05 area(s) 2 ity of ointment 00:00: (two) [place] 00 times Medical daily. Branch clobetasoL 2020-1 Yes [id number] Apply to Univers 0.05 % 0-05 area(s) 2 ity of ointment 00:00: (two) [place] 00 times Medical daily. Branch clobetasoL 2020-1 Yes [id number] Apply to Univers 0.05 % 0-05 area(s) 2 ity of ointment 00:00: (two) [place] 00 times Medical daily. Branch clobetasoL 2020-1 Yes [id number] Apply to Univers 0.05 % 0-05 area(s) 2 ity of ointment 00:00: (two) [place] 00 times Medical daily. Branch clobetasoL 2020-1 Yes [id number] Apply to Univers 0.05 % 0-05 area(s) 2 ity of ointment 00:00: (two) [place] 00 times Medical daily. Branch clobetasoL 2020-1 Yes [id number] Apply to Univers 0.05 % 0-05 area(s) 2 ity of ointment 00:00: (two) [place] 00 times Medical daily. Branch clobetasoL 2020- Yes [id number] Apply to Univers 0.05 % 0-05 area(s) 2 ity of ointment 00:00: (two) [place] 00 times Medical daily. Branch clobetasoL 2020-1 Yes [id number] Apply to Univers 0.05 % 0-05 area(s) 2 ity of ointment 00:00: (two) [place] 00 times Medical daily. Branch clobetasoL 2020- Yes [id number] Apply to Univers 0.05 % 0-05 area(s) 2 ity of ointment 00:00: (two) [place] 00 times Medical daily. Branch clobetasoL 2020- Yes [id number] Apply to Univers 0.05 % 0-05 area(s) 2 ity of ointment 00:00: (two) [place] 00 times Medical daily. Branch SIMVASTATIN 2020-0 Yes [id number] TAKE ONE Univers 20 mg 9-30 TABLET BY ity of tablet 00:00: MOUTH [place] 00 EVERY Medical NIGHT AT [place] BEDTIME OMEPRAZOLE 2020-0 Yes [id number] TAKE ONE Univers 40 mg 9-30 CAPSULE BY ity of capsule 00:00: MOUTH [place] 00 DAILY Medical Branch SIMVASTATIN 2021-0 Yes [id number] TAKE ONE Univers 20 mg 9-30 TABLET BY ity of tablet 00:00: MOUTH [place] 00 EVERY Medical NIGHT AT [place] BEDTIME OMEPRAZOLE 2021-0 Yes [id number] TAKE ONE Univers 40 mg 9-30 CAPSULE BY ity of capsule 00:00: MOUTH [place] 00 DAILY Medical Branch SIMVASTATIN 2021-0 Yes [id number] TAKE ONE Univers 20 mg 9-30 TABLET BY ity of tablet 00:00: MOUTH [place] 00 EVERY Medical NIGHT AT [place] BEDTIME OMEPRAZOLE 202-0 Yes [id number] TAKE ONE Univers 40 mg 9-30 CAPSULE BY ity of capsule 00:00: MOUTH [place] 00 DAILY Medical Branch SIMVASTATIN 202-0 Yes [id number] TAKE ONE Univers 20 mg 9-30 TABLET BY ity of tablet 00:00: MOUTH [place] 00 EVERY Medical NIGHT AT [place] BEDTIME OMEPRAZOLE 202-0 Yes [id number] TAKE ONE Univers 40 mg 9-30 CAPSULE BY ity of capsule 00:00: MOUTH [place] DAILY Medical Branch SIMVASTATIN 2021-0 Yes [id number] TAKE ONE Univers 20 mg 9-30 TABLET BY ity of tablet 00:00: MOUTH [place] 00 EVERY Medical NIGHT AT [place] BEDTIME OMEPRAZOLE 202-0 Yes [id number] TAKE ONE Univers 40 mg 9-30 CAPSULE BY ity of capsule 00:00: MOUTH [place] 00 DAILY Medical Branch SIMVASTATIN 2021-0 Yes [id number] TAKE ONE Univers 20 mg 9-30 TABLET BY ity of tablet 00:00: MOUTH [place] EVERY Medical NIGHT AT [place] BEDTIME OMEPRAZOLE 2021-0 Yes [id number] TAKE ONE Univers 40 mg 9-30 CAPSULE BY ity of capsule 00:00: MOUTH [place] 00 DAILY Medical Branch SIMVASTATIN 2021-0 Yes [id number] TAKE ONE Univers 20 mg 9-30 TABLET BY ity of tablet 00:00: MOUTH [place] 00 EVERY Medical NIGHT AT [place] BEDTIME OMEPRAZOLE 2021-0 Yes [id number] TAKE ONE Univers 40 mg 9-30 CAPSULE BY ity of capsule 00:00: MOUTH [place] 00 DAILY Medical Branch SIMVASTATIN 2021-0 Yes [id number] TAKE ONE Univers 20 mg 9-30 TABLET BY ity of tablet 00:00: MOUTH [place] 00 EVERY Medical NIGHT AT Branch BEDTIME OMEPRAZOLE 2021-0 Yes [id number] TAKE ONE Univers 40 mg 9-30 CAPSULE BY ity of capsule 00:00: MOUTH [place] 00 DAILY Medical Branch SIMVASTATIN 2020-0 Yes [id number] TAKE ONE Univers 20 mg 9-30 TABLET BY ity of tablet 00:00: MOUTH [place] 00 EVERY Medical NIGHT AT Branch BEDTIME OMEPRAZOLE 2020-0 Yes [id number] TAKE ONE Univers 40 mg 9-30 CAPSULE BY ity of capsule 00:00: MOUTH [place] 00 DAILY Medical Branch SIMVASTATIN 2020-0 Yes [id number] TAKE ONE Univers 20 mg 9-30 TABLET BY ity of tablet 00:00: MOUTH [place] 00 EVERY Medical NIGHT AT Branch BEDTIME OMEPRAZOLE 2020-0 Yes [id number] TAKE ONE Univers 40 mg 9-30 CAPSULE BY ity of capsule 00:00: MOUTH [place] 00 DAILY Medical Branch OMEPRAZOLE 2020-0 Yes [id number] TAKE ONE Univers 40 mg 9-30 CAPSULE BY ity of capsule 00:00: MOUTH [place] 00 DAILY Medical Branch Insulin 2020-0 Yes [id number] 20U inject Uni vers Glargine 9-15 20-22 ity of 100 unit/mL 00:00: Units [place] (3 mL) 00 under the Medical injection skin daily Bran ch before breakfast. Insulin Yes [id number] 20U inject Uni vers Glargine 9-15 20-22 ity of 100 unit/mL 00:00: Units [place] (3 mL) 00 under the Medical injection skin daily Bran ch before breakfast. Insulin 0 Yes [id number] 20U inject Uni vers Glargine 9-15 20-22 ity of 100 unit/mL 00:00: Units [place] (3 mL) 00 under the Medical injection skin daily Bran ch before breakfast. Insulin 0 Yes [id number] 20U inject Uni vers Glargine 9-15 20-22 ity of 100 unit/mL 00:00: Units [place] (3 mL) 00 under the Medical injection skin daily Bran ch before breakfast. Insulin 0 Yes [id number] 20U inject Uni vers Glargine 9-15 20-22 ity of 100 unit/mL 00:00: Units [place] (3 mL) 00 under the Medical injection skin daily Bran ch before breakfast. Insulin 0 Yes [id number] 20U inject Uni vers Glargine 9-15 20-22 ity of 100 unit/mL 00:00: Units [place] (3 mL) 00 under the Medical injection skin daily Bran ch before breakfast. Insulin 202- No [id number] 20U inject Un f[place]anda Glargine 06-26 ity of 100 unit/mL 00:00: 00:00 [place] (3 mL) 00 :00 under the Medical injection skin daily Bran ch before breakfast. metFORMIN 2020-0 Yes [id number] 1000mg Take 1 Univers 1,000 mg 8-16 tablet by ity of tablet 00:00: mouth (two) Medical times Branch daily with meals. metFORMIN 2020-0 Yes [id number] 1000mg Take 1 Univers 1,000 mg 8-16 tablet by ity of tablet 00:00: mouth (two) Medical times Branch daily with meals. metFORMIN 2020-0 Yes [id number] 1000mg Take 1 Univers 1,000 mg 8-16 tablet by ity of tablet 00:00: mouth (two) Medical times Branch daily with meals. metFORMIN 2020-0 Yes [id number] 1000mg Take 1 Univers 1,000 mg 8-16 tablet by ity of tablet 00:00: mouth (two) Medical times Branch daily with meals. metFORMIN 2020-0 Yes [id number] 1000mg Take 1 Univers 1,000 mg 8-16 tablet by ity of tablet 00:00: mouth (two) Medical times Branch daily with meals. metFORMIN 2020-0 Yes [id number] 1000mg Take 1 Univers 1,000 mg 8-16 tablet by ity of tablet 00:00: mouth (two) Medical times Branch daily with meals. metFORMIN 2020-0 Yes [id number] 1000mg Take 1 Univers 1,000 mg 8-16 tablet by ity of tablet 00:00: mouth (two) Medical times Branch daily with meals. metFORMIN 2020-0 Yes [id number] 1000mg Take 1 Univers 1,000 mg 8-16 tablet by ity of tablet 00:00: mouth (two) Medical times Branch daily with meals. metFORMIN 2020-0 Yes [id number] 1000mg Take 1 Univers 1,000 mg 8-16 tablet by ity of tablet 00:00: mouth (two) Medical times Branch daily with meals. metFORMIN 2021-0 Yes [id number] 1000mg Take 1 Univers 1,000 mg 8-16 tablet by ity of tablet 00:00: mouth (two) Medical times Branch daily with meals. metFORMIN 2020-0 Yes [id number] 1000mg Take 1 Univers 1,000 mg 8-16 tablet by ity of tablet 00:00: mouth (two) Medical times Branch daily with meals. metFORMIN 2020-0 Yes [id number] 1000mg Take 1 Univers 1,000 mg 8-16 tablet by ity of tablet 00:00: mouth (two) Medical times Branch daily with meals. metFORMIN 2020-0 Yes [id number] 1000mg Take 1 Univers 1,000 mg 8-16 tablet by ity of tablet 00:00: mouth (two) Medical times Branch daily with meals. CARVEDILOL 0 Yes [id number] TAKE ONE Univers 25 mg 8-06 TABLET BY ity of tablet 00:00: MOUTH 00 TWICE A Medical DAY Branch CARVEDILOL 2020-0 Yes [id number] TAKE ONE Univers 25 mg 8-06 TABLET BY ity of tablet 00:00: MOUTH 00 TWICE A Medical DAY Branch CARVEDILOL 2020-0 Yes [id number] TAKE ONE Univers 25 mg 8-06 TABLET BY ity of tablet 00:00: MOUTH 00 TWICE A Medical DAY Branch CARVEDILOL 2020-0 Yes [id number] TAKE ONE Univers 25 mg 8-06 TABLET BY ity of tablet 00:00: MOUTH 00 TWICE A Medical DAY Branch CARVEDILOL 2020-0 Yes [id number] TAKE ONE Univers 25 mg 8-06 TABLET BY ity of tablet 00:00: MOUTH 00 TWICE A Medical DAY Branch CARVEDILOL 2020-0 Yes [id number] TAKE ONE Univers 25 mg 8-06 TABLET BY ity of tablet 00:00: MOUTH 00 TWICE A Medical DAY Branch CARVEDILOL 2020-0 Yes [id number] TAKE ONE Univers 25 mg 8-06 TABLET BY ity of tablet 00:00: MOUTH 00 TWICE A Medical DAY Branch CARVEDILOL 2020-0 Yes [id number] TAKE ONE Univers 25 mg 8-06 TABLET BY ity of tablet 00:00: MOUTH 00 TWICE A Medical DAY Branch CARVEDILOL 2020-0 2021- No [id number] TAKE ONE Univers 25 mg 8-06 11-16 TABLET BY ity of tablet 00:00: 00:00 MOUTH [place] 00 :00 TWICE A Medical DAY Branch levothyroxi 2020-0 Yes [id number] 125ug Take 1 Univers ne 125 mcg 7-15 tablet by ity of tablet 00:00: mouth [place] 00 every Medical morning. Branch levothyroxi 2020-0 Yes [id number] 125ug Take 1 Univers ne 125 mcg 7-15 tablet by ity of tablet 00:00: mouth [place] 00 every Medical morning. Branch levothyroxi 2020-0 Yes [id number] 125ug Take 1 Univers ne 125 mcg 7-15 tablet by ity of tablet 00:00: mouth [place] 00 every Medical morning. Branch levothyroxi 2020-0 Yes [id number] 125ug Take 1 Univers ne 125 mcg 7-15 tablet by ity of tablet 00:00: mouth [place] 00 every Medical morning. Branch levothyroxi 2020-0 Yes [id number] 125ug Take 1 Univers ne 125 mcg 7-15 tablet by ity of tablet 00:00: mouth [place] 00 every Medical morning. Branch levothyroxi 2020-0 Yes [id number] 125ug Take 1 Univers ne 125 mcg 7-15 tablet by ity of tablet 00:00: mouth [place] 00 every Medical morning. Branch levothyroxi 2020-0 Yes [id number] 125ug Take 1 Univers ne 125 mcg 7-15 tablet by ity of tablet 00:00: mouth [place] 00 every Medical morning. Branch levothyroxi 2020-0 Yes [id number] 125ug Take 1 Univers ne 125 mcg 7-15 tablet by ity of tablet 00:00: mouth [place] 00 every Medical morning. Branch levothyroxi 2020-0 Yes [id number] 125ug Take 1 Univers ne 125 mcg 7-15 tablet by ity of tablet 00:00: mouth [place] 00 every Medical morning. Branch levothyroxi 2020-0 Yes [id number] 125ug Take 1 Univers ne 125 mcg 7-15 tablet by ity of tablet 00:00: mouth [place] 00 every Medical morning. Branch levothyroxi 2020-0 Yes [id number] 125ug Take 1 Univers ne 125 mcg 7-15 tablet by ity of tablet 00:00: mouth [place] 00 every Medical morning. Branch levothyroxi 2020-0 Yes [id number] 125ug Take 1 Univers ne 125 mcg 7-15 tablet by ity of tablet 00:00: mouth [place] 00 every Medical morning. [place] omeprazole 2020-2020- No [id number] 40mg Take 1 Univers 40 mg -30 capsule by ity of capsule 00:00: 00:00 mouth [place] 00 :00 daily. [facility] omeprazole 2020-2020- No [id number] 40mg Take 1 Univers 40 mg 7-25 06-30 capsule by ity of capsule 00:00: 00:00 mouth [place] 00 :00 daily. [facility] Branch SIMVASTATIN 2020-2020- No [id number] TAKE ONE Univers 20 mg -30 TABLET BY ity of tablet 00:00: 00:00 MOUTH [place] 00 :00 EVERY Medical NIGHT AT Branch BEDTIME SIMVASTATIN 2020-2020- No [id number] TAKE ONE Univers 20 mg -30 TABLET BY ity of tablet 00:00: 00:00 MOUTH [place] 00 :00 EVERY Medical NIGHT AT Branch BEDTIME blood sugar Yes [id number] 1{strip 1 Strip Univers diagnostic 5-24 } before ity of (BLOOD 00:00: meals and [place] GLUCOSE 00 at Medical TEST) strip bedtime. Bran ch Check glucose once daily before breakfast; Diagnosis code R73.03 blood sugar Yes [id number] 1{strip 1 Strip Univers diagnostic 5-24 } before ity of (BLOOD 00:00: meals and [place] GLUCOSE 00 at Medical TEST) strip bedtime. Bran ch Check glucose once daily before breakfast; Diagnosis code R73.03 blood sugar Yes [id number] 1{strip 1 Strip Univers diagnostic 5-24 } before ity of (BLOOD 00:00: meals and [place] GLUCOSE 00 at Medical TEST) strip bedtime. Bran ch Check glucose once daily before breakfast; Diagnosis code R73.03 blood sugar 2020-0 Yes [id number] 1{strip 1 Strip Univers diagnostic 5-24 } before ity of (BLOOD 00:00: meals and [place] GLUCOSE 00 at Medical TEST) strip bedtime. Bran ch Check glucose once daily before breakfast; Diagnosis code R73.03 blood sugar 0 Yes [id number] 1{strip 1 Strip Univers diagnostic 5-24 } before ity of (BLOOD 00:00: meals and [place] GLUCOSE 00 at Medical TEST) strip bedtime. Bran ch Check glucose once daily before breakfast; Diagnosis code R73.03 blood sugar Yes [id number] 1{strip 1 Strip Univers diagnostic 5-24 } before ity of (BLOOD 00:00: meals and [place] GLUCOSE 00 at Medical TEST) strip bedtime. Bran ch Check glucose once daily before breakfast; Diagnosis code R73.03 blood sugar 2020- Yes [id number] 1{strip 1 Strip Univers diagnostic 5-24 } before ity of (BLOOD 00:00: meals and [place] GLUCOSE 00 at Medical TEST) strip bedtime. Bran ch Check glucose once daily before breakfast; Diagnosis code R73.03 blood sugar Yes [id number] 1{strip 1 Strip Univers diagnostic 5-24 } before ity of (BLOOD 00:00: meals and [place] GLUCOSE 00 at Medical TEST) strip bedtime. Bran ch Check glucose once daily before breakfast; Diagnosis code R73.03 blood sugar 2020- Yes [id number] 1{strip 1 Strip Univers diagnostic 5-24 } before ity of (BLOOD 00:00: meals and [place] GLUCOSE 00 at Medical TEST) strip bedtime. Bran ch Check glucose once daily before breakfast; Diagnosis code R73.03 blood sugar Yes [id number] 1{strip 1 Strip Univers diagnostic 5-24 } before ity of (BLOOD 00:00: meals and [place] GLUCOSE 00 at Medical TEST) strip bedtime. Bran ch Check glucose once daily before breakfast; Diagnosis code R73.03 blood sugar 2020- Yes [id number] 1{strip 1 Strip Univers diagnostic 5-24 } before ity of (BLOOD 00:00: meals and [place] GLUCOSE 00 at Medical TEST) strip bedtime. Bran ch Check glucose once daily before breakfast; Diagnosis code R73.03 blood sugar Yes [id number] 1{strip 1 Strip Univers diagnostic 5-24 } before ity of (BLOOD 00:00: meals and [place] GLUCOSE 00 at Medical TEST) strip bedtime. Bran ch Check glucose once daily before breakfast; Diagnosis code R73.03 blood sugar 2020- Yes [id number] 1{strip 1 Strip Univers diagnostic 5-24 } before ity of (BLOOD 00:00: meals and [place] GLUCOSE 00 at Medical TEST) strip bedtime. Bran ch Check glucose once daily before breakfast; Diagnosis code R73.03 aspirin 81 2020- Yes 81mg Take 81 mg U nivers mg chewable 4-22 by mouth ity of tablet 17:27: daily. [address] aspirin 81 2020-0 Yes 81mg Take 81 mg U nivers mg chewable 4-22 by mouth ity of tablet 17:27: daily. [address] aspirin 81 2020-0 Yes 81mg Take 81 mg U nivers mg chewable 4-22 by mouth ity of tablet 17:27: daily. [address] aspirin 81 2020-0 Yes 81mg Take 81 mg U nivers mg chewable 4-22 by mouth ity of tablet 17:27: daily. [address] ondansetron 2020-0 2020- No [id number] 4mg Take 1 Univers 4 mg 4-22 10-05 tablet by ity of disintegrat 00:00: 00:[place] tablet 00 :00 every 8 Medica l (eight) Branch hours as needed for Nausea and Vomiting (N/V). ondansetron 2020-0 2020- No [id number] 4mg Take 1 Univers 4 mg 4-22 10-05 tablet by ity of disintegrat 00:00: 00:00 [place] tablet 00 :00 every 8 Medica l (eight) Branch hours as needed for Nausea and Vomiting (N/V). Blood-Gluco 2020-0 Yes [id number] Check U nivers se Meter 4-20 glucose ity of Kit 00:00: once daily [place] 00 before Medical breakfast; Branch Diagnosis code R73.03 Blood-Gluco 2020-0 Yes [id number] Check U nivers se Meter 4-20 glucose ity of Kit 00:00: once daily [place] 00 before Medical breakfast; Branch Diagnosis code R73.03 Blood-Gluco 2020-0 Yes [id number] Check U nivers se Meter 4-20 glucose ity of Kit 00:00: once daily [place] 00 before Medical breakfast; Branch Diagnosis code R73.03 Blood-Gluco 1-0 Yes [id number] Check U nivers se Meter 4-20 glucose ity of Kit 00:00: once daily [place] 00 before Medical breakfast; Branch Diagnosis code R73.03 Blood-Gluco 1-0 Yes [id number] Check U nivers se Meter 4-20 glucose ity of Kit 00:00: once daily [place] 00 before Medical breakfast; Branch Diagnosis code R73.03 Blood-Gluco 2021-0 Yes [id number] Check U nivers se Meter 4-20 glucose ity of Kit 00:00: once daily [place] 00 before Medical breakfast; Branch Diagnosis code R73.03 Blood-Gluco 2021-0 Yes [id number] Check U nivers se Meter 4-20 glucose ity of Kit 00:00: once daily [place] 00 before Medical breakfast; Branch Diagnosis code R73.03 Blood-Gluco 2021-0 Yes [id number] Check U nivers se Meter 4-20 glucose ity of Kit 00:00: once daily [place] 00 before Medical breakfast; Branch Diagnosis code R73.03 Blood-Gluco 2021-0 Yes [id number] Check U nivers se Meter 4-20 glucose ity of Kit 00:00: once daily [place] 00 before Medical breakfast; Branch Diagnosis code R73.03 Blood-Gluco 2021-0 Yes [id number] Check U nivers se Meter 4-20 glucose ity of Kit 00:00: once daily [place] 00 before Medical breakfast; Branch Diagnosis code R73.03 Blood-Gluco 2021-0 Yes [id number] Check U nivers se Meter 4-20 glucose ity of Kit 00:00: once daily [place] 00 before Medical breakfast; Branch Diagnosis code R73.03 Blood-Gluco 2021-0 Yes [id number] Check U nivers se Meter 4-20 glucose ity of Kit 00:00: once daily [place] 00 before Medical breakfast; Branch Diagnosis code R73.03 Blood-Gluco 2021-0 Yes [id number] Check U nivers se Meter 4-20 glucose ity of Kit 00:00: once daily [place] 00 before Medical breakfast; Branch Diagnosis code R73.03 Lancets 2020-1 Yes [id number] Check Univ ers Misc 1-18 glucose ity of 00:00: once daily [place] 00 before Medical breakfast; Branch Diagnosis code R73.03 Lancets 2020-1 Yes [id number] Check Univ ers Misc 1-18 glucose ity of 00:00: once daily [place] 00 before Medical breakfast; Branch Diagnosis code R73.03 Lancets 2020-1 Yes [id number] Check Univ ers Misc 1-18 glucose ity of 00:00: once daily [place] 00 before Medical breakfast; Branch Diagnosis code R73.03 Lancets 2020-1 Yes [id number] Check Univ ers Misc 1-18 glucose ity of 00:00: once daily [place] 00 before Medical breakfast; Branch Diagnosis code R73.03 Lancets 2019- Yes [id number] Check Univ ers Misc 1-18 glucose ity of 00:00: once daily [place] 00 before Medical breakfast; Branch Diagnosis code R73.03 Lancets 2019- Yes [id number] Check Univ ers Misc 1-18 glucose ity of 00:00: once daily [place] 00 before Medical breakfast; Branch Diagnosis code R73.03 Lancets 2019- Yes [id number] Check Univ ers Misc 1-18 glucose ity of 00:00: once daily [place] 00 before Medical breakfast; Branch Diagnosis code R73.03 Lancets 2019-10 Yes [id number] Check Univ ers Misc 1-18 glucose ity of 00:00: once daily [place] 00 before Medical breakfast; Branch Diagnosis code R73.03 Lancets 2019-10 Yes [id number] Check Univ ers Misc 1-18 glucose ity of 00:00: once daily [place] 00 before Medical breakfast; Branch Diagnosis code R73.03 Lancets 2019-10 Yes [id number] Check Univ ers Misc 1-18 glucose ity of 00:00: once daily [place] 00 before Medical breakfast; Branch Diagnosis code R73.03 Lancets 2019-10 Yes [id number] Check Univ ers Misc 1-18 glucose ity of 00:00: once daily [place] 00 before Medical breakfast; Branch Diagnosis code R73.03 Lancets 2019-10 Yes [id number] Check Univ ers Misc 1-18 glucose ity of 00:00: once daily [place] 00 before Medical breakfast; Branch Diagnosis code R73.03 Lancets 2019-10 Yes [id number] Check Univ ers Misc 1-18 glucose ity of 00:00: once daily [place] 00 before Medical breakfast; Branch Diagnosis code R73.03 QUEtiapine 2019-0 Yes Univers 300 mg 1-10 ity of tablet 00:00: [place] 00 [facility] QUEtiapine 2019-0 Yes Univers 300 mg 1-10 ity of tablet 00:00: [place] 00 [facility] QUEtiapine 2019-0 Yes Univers 300 mg 1-10 ity of tablet 00:00: [place] 00 [facility] QUEtiapine 2019-0 Yes Univers 300 mg 1-10 ity of tablet 00:00: [place] 00 [facility] QUEtiapine 2019-0 Yes Univers 300 mg 1-10 ity of tablet 00:00: [address] QUEtiapine 2019-0 Yes Univers 300 mg 1-10 ity of tablet 00:00: [address] QUEtiapine 2019-0 Yes Univers 300 mg 1-10 ity of tablet 00:00: [address] QUEtiapine 2019-0 Yes Univers 300 mg 1-10 ity of tablet 00:00: [address] QUEtiapine 2019-0 Yes Univers 300 mg 1-10 ity of tablet 00:00: [address] QUEtiapine 2019-0 Yes Univers 300 mg 1-10 ity of tablet 00:00: [address] QUEtiapine 2019-0 Yes Univers 300 mg 1-10 ity of tablet 00:00: [address] QUEtiapine 2019-0 Yes Univers 300 mg 1-10 ity of tablet 00:00: [address] QUEtiapine 2019-0 Yes Univers 300 mg 1-10 ity of tablet 00:00: [address] Vital Signs Vital Name Observation Time Observation Value Comments Source Systolic blood 2021-10-04 22:53:00 129 mm[Hg] Univer sity of pressure [facility] Diastolic blood 2021-10-04 22:53:00 86 mm[Hg] Unive rsity of [facility] Heart rate 2021-10-04 22:53:00 71 /min [facility] Body temperature 2021-10-04 22:53:00 36.39 Lynette [facility] Respiratory rate 2021-10-04 22:53:00 18 /min [facility] Body weight 2021-10-04 22:53:00 93.186 kg [facility] BMI 2021-10-04 22:53:00 35.26 kg/m2 [facility] Oxygen saturation in 2021-10-04 22:53:00 97 /min [facility] Arterial blood by [facility] [place] Pulse oximetry [place] Systolic blood 2021-08-13 16:05:00 117 mm[Hg] Univer sity of pressure [facility] Diastolic blood 2021-08-13 16:05:00 82 mm[Hg] Unive rsity of pressure [facility] Heart rate 2021-08-13 16:05:00 80 /min [facility] Respiratory rate 2021-08-13 16:05:00 18 /min Univ ersity [facility] Oxygen saturation in 2021-08-13 16:05:00 97 /min University of Arterial blood by [facility] [place] Pulse oximetry Branch Body temperature 2021-08-13 15:47:00 36.39 Lynette Univ ersity [facility] Body height 2021-08-13 15:04:00 162.6 cm [facility] Body weight 2021-08-13 15:04:00 88.451 kg [facility] BMI 2021-08-13 15:04:00 33.47 kg/m2 [facility] Systolic blood 2021-08-13 16:00:00 105 mm[Hg] Univer sity of pressure [facility] Diastolic blood 2021-08-13 16:00:00 68 mm[Hg] Unive rsity of pressure [facility] Heart rate 2021-08-13 16:00:00 70 /min [facility] Respiratory rate 2021-08-13 16:00:00 16 /min Univ ersity [facility] Oxygen saturation in 2021-08-13 16:00:00 96 /min University of Arterial blood by [facility] [place] Pulse oximetry Branch Body temperature 2021-08-13 15:47:00 36.39 Lynette Univ ers[facility] Body height 2021-08-13 15:04:00 162.6 cm [facility] Body weight 2021-08-13 15:04:00 88.451 kg [facility] BMI 2021-08-13 15:04:00 33.47 kg/m2 [facility] Systolic blood 2021-07-03 21:11:00 128 mm[Hg] Univer sity of pressure [facility] Diastolic blood 2021-07-03 21:11:00 84 mm[Hg] Unive rsity of pressure [facility] Heart rate 2021-07-03 21:11:00 78 /min [facility] Body height 2021-07-03 21:11:00 162.6 cm [facility] Body weight 2021-07-03 21:11:00 92.08 kg [facility] BMI 2021-07-03 21:11:00 34.84 kg/m2 [facility] Oxygen saturation in 2021-07-03 21:11:00 97 /min [facility] Arterial blood by [facility] [place] Pulse oximetry Branch Procedures Procedure Date / Time Performing Clinician Source Performed POCT URINALYSIS 2021-10-04 23:05:00 Aurora Avendaño o f [facility] SURGICAL PATHOLOGY EXAM 2021-08-13 15:39:00 Rajat Noriega [facility] ESOPHAGOGASTRODUODENOSCOPY 2021-08-13 15:16:00 Rajat Noriega [facility] EGD (ENDO) 2021-08-13 15:14:50 Pilar Kang [facility] EGD (ENDO) 2021-08-13 15:14:50 Pilar Kang [facility] POCT GLUCOSE (AUTOMATED) 2021-08-13 14:56:00 [facility]ATED) 2021-08-13 14:56:00 Rajat Noriega [facility] POCT TEST 2021-08-13 14:40:00 Kathryn Corrales [facility] POCT TEST 2021-08-13 14:40:00 Kathryn Corrales [facility] ASSIGNMENT OF BENEFITS 2021-08-13 13:58:48 Doctor Unassigned, [facility] POCT HEMOGLOBIN A1C TEST 2021-07-03 21:13:00 Arthur Dominguez [facility] [place] Encounters Start End Encounter Admission Attending Care Care Encounter Source Date/Time Date/Time Type Type Clinicians Facility Department ID 2021-08-11 Emergency [facility] [id number] Univers 14:12:35 [facility] 2022-02-18 2022-02-18 Outpatient R LANCE [facility] [id number] Univers 13:30:00 13:30:00 ARTHUR [id number] [facility] 2022-02-18 2022-02-18 Outpatient R LANCE [facility] [id number] Univers 13:30:00 13:30:00 [place] ity [facility] 2022-01-02 2022-01-02 Outpatient R SIMONA [facility] [id number] Univers 13:00:00 13:00:00 PAT [id number] ity [facility] 2022-01-02 2022-01-02 Outpatient R SIMONA [facility] [id number] Univers 13:00:00 [facility]:00[facility]-10[facility]23 2021-10-23 [facility], Ang - Luis F [facility] 1.2.840.1 [id number] Univers 12:45:00 13:00:00 Visit Arthur Dominguez [facility] [id number] ity of [place] [id number] Anton as TREE?BLEA [phone] [place] sophiedenise [place] [address] [place] MEDICAL OFFICE [facility] 2021-10-23 2021-10-23 Outpatient R LANCE [facility] [id number] Univers 12:00:00 12:46:03 [facility] 2021-10-23 2021-10-23 Outpatient R LANCE [facility] [id number] Univers 12:45:00 12:45:00 [place] [id number] [facility] 2021-10-11 2021-10-11 [facility] ..840.114 [id number] Univers 00:00:00 00:00:00 Wondiful A HEALTH [id number] ity of [place] [id number] Anton as TREE?BLEA [phone] [place] dicdenise [place] [address] [place] MEDICAL OFFICE BUILDING 2021-10-07 2021-10-07 [facility]phone [facility] 1..840.114 [id number] Univers 00:00:00 00:00:00 Wondiful A HEALTH [id number] ity of [place] [id number] Anton as TREE?BLEA [phone] Va dical [facility] [address] [place] MEDICAL OFFICE BUILDING 2021-10-04 2021-10-04 Urgent Aurora Avendaño [facility] 1.2.840.114 [id number] Univers 17:00:00 17:20:00 Care Steve Whitley HEALTH [id number] ity of [place] [id number] Anton as TREE?BLEA [phone] [facility] [address] [facility] OFFICE [facility] 2021-10-04 2021-10-04 Outpatient R [facility] [id number] Univers 17:00:00 17:00:00 [id number] ity [facility] 2021-10-04 2021-10-04 Outpatient R [facility] [id number] Univers 17:00:00 17:00:00 STEVE neela o f [facility] 2021-08-27 2021-08-27 Telephone [facility] 1.2.840.114 [id number] Univers 00:00:00 00:00:00 Wondiful A HEALTH [id number] ity of [place] [id number] Anton as TREE?BLEA [phone] [facility] [address] [facility] OFFICE [facility] 2021-08-16 2021-08-16 [facility] 1.2.840.114 [id number] Univers 00:00:00 00:00:00 [place] HEALTH [id number] it y of [place] [id number] Anton as TREE?BLEA [phone] [facility] [address] [place] MEDICAL OFFICE [facility] 2021-08-14 2021-08-14 [facility] 1.2.840.114 [id number] Univers 00:00:00 00:00:00 [place] HEALTH [id number] it y of [place] [id number] Anton as TREE?BLEA [phone] [facility] [address] [facility] OFFICE [facility] 2021-08-13 2021-08-13 [facility] [id number] Univers 08:58:00 11:16:00 RAJAT ity of [facility] 2021-08-13 2021-08-13 Hospital [facility] 1.2.840.114 [id number] Univers 08:58:00 11:16:00 Encounter Shenatashayar HEALTH [id number] ity of [place] 4.2.7.2.686 [facility] [phone] [facility] 049 [facility] ([facility] 2021-08-13 2021-08-13 Surgery [facility] 1.2.840.114 [id number] Univers 10:30:00 11:04:00 Sheharyar SPECIALTY 350.1.13.10 ity of CARE 4.2.7.2.686 [facility] AT [phone] [place] logan ANDRES [address] [place] [address] 2021-08-13 2021-08-13 Orders Doctor LINDA 1.2.840.114 [id number] Univers 00:00:00 00:00:00 Only Unassigned, MILENA 350.1.13.10 ity of [place] [facility] 4.2.7.2.686 Anton as [phone] [address] 2021-08-06 2021-08-06 [id number] Univers 14:20:00 14:20:00 JACQUE [id number] [facility] 2021-08-06 2021-08-06 [facility] [id number] Univers 14:20:00 14:20:00 JACQUE [facility] 2021-08-01 2021-08-01 [facility]phone [facility] 1.2.840.114 [id number] Univers 00:00:00 00:00:00 Wondiful A Health [id number] ity of [place] [id number] Anton as Tree?Blea [phone] [place] logan harris [address] [place] [address] Medical Office Building 2021-07-30 2021-07-30 Outpatient R [facility] [id number] Univers 16:15:00 16:15:00 [id number] ity [facility] 2021-07-30 2021-07-30 Outpatient R SAMANTHA [facility] [id number] Univers 16:15:00 16:15:00 STEVE ity o f [facility] 2021-07-17 2021-07-17 Outpatient R [facility] [id number] Univers 09:30:00 09:30:00 [id number] ity [facility] 2021-07-17 2021-07-17 Outpatient R [facility] [id number] Univers 09:30:00 09:30:00 ity [facility] 2021-07-16 2021-07-16 [facility] [id number] Univers 09:30:00 09:30:00 WONDIFUL [id number] ity o f [facility] 2021-07-16 2021-07-16 Outpatient R PEARL, [facility] [id number] Univers 09:30:00 09:30:00 WONDIFUL ity o [facility] 2021-07-03 2021-07-03 Office [facility] 1.2.840.114 [id number] Univers 15:40:46 16:47:20 Visit [place] 350.1.13.10 it y of [place] [id number] Anton as Tree?Blea [id number] [address] Medical Office Building 2021-07-03 2021-07-03 [facility] [id number] Univers 15:30:00 15:30:00 [facility] [id number] [facility] 2021-07-03 2021-07-03 Outpatient R LANCE [facility] [id number] Univers 15:30:00 15:30:00 WENTONG [facility] 2021-06-13 2021-06-13 Outpatient R [facility] [id number] Univers 14:00:00 14:00:00 [id number] [facility] 2021-06-13 2021-06-13 Outpatient R ABHAY [facility] [id number] Univers 14:00:00 14:00:00 KAREN [facility] 2021-06-12 2021-06-12 Outpatient R SURY [facility] [id number] Univers 10:00:00 10:00:00 HORACIO [id number] [facility] 2021-06-12 2021-06-12 Outpatient R SURY, [facility] [id number] Univers 10:00:00 10:00:00 HORACIO [facility] 2021-05-28 2021-05-28 Outpatient R [facility] [id number] Univers 18:40:00 18:40:00 [id number] [facility] 2021-05-28 2021-05-28 Outpatient R BAHAY, [facility] [id number] Univers 18:40:00 18:40:00 KAREN [facility] 2021-05-03 2021-05-03 Outpatient R SAMANTHA, [facility] [id number] Univers 14:30:00 14:30:00 STEVE [id number] ity o [facility] 2021-05-03 2021-05-03 Outpatient R SAMANTHA, [facility] [id number] Univers 00:00:00 00:00:00 STEVE ity o [facility] [place] [facility] 2021-04-29 2021-04-29 Outpatient R DOMINGUEZ, [facility] [id number] Univers 14:00:00 14:00:00 ARTHUR [id number] [facility] 2021-04-24 2021-04-24 Outpatient R SAMANTHA, [facility] [id number] Univers 13:00:00 13:00:00 STEVE [id number] ity o [facility] [place] [facility] 2021-04-24 2021-04-24 Outpatient R SAMANTHA, [facility] [id number] Univers 13:00:00 13:00:00 STEVE ity o [facility] [place] [facility] [facility] 2021-04-04 2021-04-04 Outpatient R SIMONA, [facility] [id number] Univers 13:00:00 13:00:00 PAT [id number] [facility] 2021-04-04 2021-04-04 Outpatient R SIMONA, [facility] [id number] Univers 13:00:00 13:00:00 PAT [facility] 2021-03-20 2021-03-20 Outpatient Jose Francisco DOMINGUEZ [facility] [id number] Univers 15:00:00 15:00:00 ARTHUR Bush [facility] 2021-03-20 2021-03-20 Outpatient Jose Francisco DOMINGUEZ [facility] [id number] Univers 15:00:00 15:00:00 ARTHUR [facility] 2021-02-13 2021-02-13 Outpatient Jose Francisco WHITLEY [facility] [id number] Univers 11:00:00 11:00:00 STEVE [id number] neela leger [facility] 2021-02-13 2021-02-13 Outpatient Jose Francisco HWITLEY [facility] [id number] Univers 11:00:00 11:00:00 STEVE leger [facility] 2021-02-13 2021-02-13 Outpatient Jose Francisco WHITLEY [facility] [id number] Univers 11:00:00 11:00:00 STEVE leger [facility] 2021-02-11 2021-02-11 Outpatient Jose Francisco WHITLEY [facility] [id number] Univers 13:30:00 13:30:00 STEVE [id number] neela leger [facility] 2021-02-11 2021-02-11 Outpatient Jose Francisco WHITLEY [facility] [id number] Univers 13:30:00 13:30:00 STEVE leger [facility] 2021-02-07 2021-02-07 Outpatient Jose Francisco WHITLEY [facility] [id number] Univers 13:30:00 13:30:00 STEVE [id number] neela leger [facility] 2021-02-07 2021-02-07 Outpatient Jose Francisco WHITLEY [facility] [id number] Univers 13:30:00 13:30:00 STEVE taylor leger [facility] 2021-02-07 2021-02-07 Emergency [facility] [id number] [place] [address] 00:00:00 00:00:[address] 2021-02-07 2021-02-07 Telephone [facility] [id number] 00:00:00 00:00:00 Esther Roblero [id number] [place] 4.2.7.2.686 Professio [phone] nal 044 Office [facility] 2021-02-01 2021-02-01 Telephone Gordon [facility] [id number] 00:00:00 00:00:00 Chrissy SANCHEZ [id number] Radha PERRY 4.2.7.2.686 [place] [id number] AND KAY [facility] 2021-02-01 2021-02-01 Transition Sommer Conway 1.2.840.114 [id number] 00:00:00 00:00:00 of Care Heather Juan [id number] Jamarcus 4.2.7.2.686 [id number] 2021-01-29 2021-01-31 Hospital Arcenio Hand 1.2.840.1 [id number] 16:44:00 17:15:00 Encounter Huy Barrera 350.1.13. 10 [facility] 4.2.7.2.686 [id number] 2021-01-29 2021-01-29 Office [facility] 1.2.840.114 [id number] 15:27:18 16:23:45 Visit [facility] 350.1.13.10 [place] 4.2.7.2.686 Professio [phone] nal [facility] Office [facility] 2021-01-29 2021-01-29 Outpatient R [facility] [id number] Univers 15:30:00 15:30:00 STEVE [id number] neela leger [facility] 2021-01-29 2021-01-29 Outpatient R [facility] [id number] Univers 15:30:00 15:30:00 STEVE keita o [facility] 2021-01-10 2021-01-10 [id number] Univers 16:20:00 16:20:00 PAT [id number] ity [facility] 2021-01-10 2021-01-10 Outpatient R JARVIS, [facility] [id number] Univers 16:20:00 16:20:00 PAT ity of [facility] 2020-12-27 2020-12-27 Outpatient R JARVIS, [facility] [id number] Univers 11:40:00 11:40:00 PAT [id number] ity of [facility] 2020-12-27 2020-12-27 Outpatient R JARVIS, [facility] [id number] Univers 11:40:00 11:40:00 PAT ity [facility] 2020-11-22 2020-11-22 Outpatient R JARVIS, [facility] [id number] Univers 11:40:00 11:40:00 PAT ity [facility] 2020-08-28 2020-08-28 Outpatient R [facility] [id number] Univers 09:15:00 09:15:00 [id number] ity [facility] 2020-08-28 2020-08-28 Outpatient R ADDIE, [facility] [id number] Univers 09:15:00 09:15:00 ESTHER ity [facility] 2020-08-24 2020-08-24 Outpatient PEARL, [facility] [id number] Univers 16:15:00 16:15:00 WONDIFUL [id number] ity o f [facility] 2020-08-24 2020-08-24 Outpatient R PEARL, [facility] [id number] Univers 16:15:00 16:15:00 WONDIFUL ity o f [facility] 2020-08-09 2020-08-09 Outpatient R JARVIS, [facility] [id number] Univers 14:00:00 14:00:00 PAT [id number] ity [facility] 2020-08-09 2020-08-09 Outpatient R JARVIS, [facility] [id number] Univers 14:00:00 14:00:00 PAT ity [facility] 2020-08-03 2020-08-03 Outpatient R KAREY, [facility] [id number] Univers 10:30:00 10:30:00 RUFINO [id number] ity [facility] 2020-08-03 2020-08-03 Outpatient R TWILAM, [facility] [id number] Univers 10:30:00 10:30:00 RUFINO ity of [facility] 2020-06-14 2020-06-14 Outpatient R PEARL, [facility] [id number] Univers 08:45:00 08:45:00 WONDIFUL [id number] ity o f [facility] 2020-06-14 2020-06-14 Outpatient R PEARL, [facility] [id number] Univers 08:45:00 08:45:00 WONDIFUL ity o f [facility] 2020-06-11 2020-06-11 Outpatient R [facility] [id number] Univers 14:20:00 14:20:00 [id number] ity of [facility] 2020-06-11 2020-06-11 Outpatient R [facility] [id number] Univers 14:20:00 14:20:00 ity [facility] 2020-05-10 2020-05-10 Outpatient R JARVIS, [facility] [id number] Univers 14:00:00 14:00:00 PAT ity [facility] 2020-05-10 2020-05-10 Outpatient R JARVIS, [facility] [id number] Univers 14:00:00 [facility]:00[facility] 2020-05-03 Outpatient R JARVIS, [facility] [id number] Univers 13:20:00 13:20:00 PAT ity [facility] 2020-05-03 2020-05-03 Outpatient R JARVIS, [facility] [id number] Univers 13:15:00 13:15:00 PAT [id number] ity [facility] 2020-05-03 2020-05-03 Outpatient R DOCARLOS EDUARDOTRAM, [facility] [id number] Univers 10:17:00 10:17:00 RUFINO [facility] 2020-04-10 2020-04-10 Outpatient R DOULATRAM, [facility] [id number] Univers 13:30:00 13:30:00 RUFINO [facility] 2020-03-20 2020-03-20 Outpatient R ABHAY, [facility] [id number] Univers 16:20:00 16:20:00 KAREN [facility] 2020-03-20 2020-03-20 Outpatient R [facility] [id number] Univers 16:20:00 16:20:00 [id number] [facility] 2020-03-15 2020-03-15 Outpatient R JEREMY, [facility] [id number] Univers 14:30:00 14:30:00 [facility] 2020-03-15 2020-03-15 Outpatient R JEREMY, [facility] [id number] Univers 14:30:00 14:30:00 FABY [facility] 2020-02-02 2020-02-02 Outpatient R JARVIS, [facility] [id number] Univers 14:30:00 14:30:00 PAT [id number] [facility] 2020-02-02 2020-02-02 Outpatient R JARVIS, [facility] [id number] Univers 14:30:00 14:30:00 PAT [facility] 2020-01-30 2020-01-30 Outpatient R FINNADAM [facility] [id number] Univers 15:00:00 15:00:00 [id number] [facility] 2020-01-30 2020-01-30 Outpatient R BRISENOADAM [facility] [id number] Univers 15:00:00 [facility] 2020-01-16 2020-01-16 Outpatient R JEREMY [facility] [id number] Univers 16:15:00 16:15:00 FABY [facility] 2020-01-16 2020-01-16 Outpatient R JEREMY [facility] [id number] Univers 16:15:00 16:15:00 FABY [facility] 2020-01-05 2020-01-05 Outpatient R JEREMY [facility] [id number] Univers 13:45:00 13:45:00 FABY [id number] [facility] 2020-01-05 2020-01-05 Outpatient R JEREMY [facility] [id number] Univers 13:45:00 13:45:[facility]-12-22 2019-12-22 Outpatient R JEREMY [facility] [id number] Univers 13:54:06 23:59:00 FABY [facility] 2019-12-22 2019-12-22 Outpatient R JEREMY [facility] [id number] Univers 00:00:00 00:00:00 FABY [id number] [facility] 2019-12-14 2019-12-14 Outpatient R JEREMY [facility] [id number] Univers 12:43:56 23:59:00 FABY [facility] 2019-12-14 2019-12-14 Outpatient JEREMY [facility] [id number] Univers 13:00:00 13:00:00 FABY [facility] 2019-12-08 2019-12-08 Outpatient R FINN ADAM [facility] [id number] Univers 13:00:00 13:00:00 [facility] 2019-12-01 2019-12-01 Outpatient R JEREMY [facility] [id number] Univers 13:00:00 13:45:16 [facility] Results Test Description Test Time Test Comments Results Result Comments Source POCT URINALYSIS W SPECIFIC GRAVITY 2021-10-04 23:05:00 Test Item Value Reference Range Interpretation Comme nts POCT U SP GRAV (test code = 3255) 1.020 mg/dl 1.005-1.025 POCT PH U (test code = 3254) 5 mg/dl 5-8 POCT U LEUK EST (test code = 3263) NEG Negative - Negative POCT U NIT (test code = 3262) NEG Negative - Negative POCT U PROT (test code = 3259) NEG Negative - Negative POCT U GLU (test code = 3256) NEG Negative - Negative POCT U KETONE (test code = 3258) NEG Negative - Negative POCT U UROBILI (test code = 3260) NORMAL 0.2-1 POCT U BILI (test code = 3261) NEG Negative - Negative POCT U BLD (test code = 3257) Negative - Negative POCT U COLOR (test code = 3266) YELLOW POCT U APPEAR (test code = 3267) [facility] [id number] 20:55:49 Test Item Value Reference Range Interpretation Comments Case Report (test code Surgical Pathology ? ? = [id number]) ?Case: [id number] ? Authorizing Provider: ?Rajat Noriega MD ? ? ?Collected: ? 08/13/2021 1039 ?Ordering Location: ? ? [facility] ? ? Received: ?08/13/2021 1244 ? Center ? Pathologist: ? Audrey Oconnor MD PHD ?Specimen: ? ?STOMACH, Gastric forcep bx's ? Final Diagnosis (test q0wdiFSjWWZjv6ojDCCleH code = [id number]) FuZzEwMzNcZnRuYmpcdWMx IHtccnRmMVxlcGljOTYwMV uploAsXVSsyFTvV0Vkqpfp ATlaRZ6nCA0khAzbuBJxkD AbRCWyQvZea7kgm110sXCz t7wfPQDOqqxsqOq2uSocV8 0xm3T0QhxuY93dcDLiBCU4 LIXgQNIymGCzOTByABM2PA YplGJrX2swKQUyRZ2dbtga AYmfZZiyLDLxrSQ3WMSrqX LyO0RbIHHoTWqeTROvsrs9 NhOaKe6rqVJnhFlhHCbwML JkXHBsYWluXGZzMjBccGFy FTUaDUFET30IO7qfETAUJ5 BTWTpccGFyICAgICAgICAt EQyAL3MJJNUsCUAPT3QYCL dJVEggTUlMRCBDSFJPTklD IGjGG4GJGYRRN5ohNQEsXQ ZrGBCwSG9iPa8gXSYCNMUB RTjpD4YzIJ5VCTVJSC7NXO VRSDSOLSbIT9yKYGyOQW6T SUZJRURccGFyICAgICAgIC BaVW6VQWccCYDJUY2UKB8F OXhDXD8UE5UGFOBGVdAQWP VOVElGSUVEIFxwYXJccGFy VAAkUhMhC5s0f2t0tWXaaN b7kPTwp0OwVvpazxdeEPCI QkJTICBccHJvdGVjdFxwcm 44EQY1HQGtBE1hMlRwAuRy cHJvdGVjdDAgXHBsYWluXG ZzMjIgICBcZnMyMCAgXHBh ey08LFE4BdZvd7H1TCSoHl TnMCQeOC0exArsCBTsDZ4z PEHcX5kubH7aptq4AaNmAZ VpYiP6DIBasmK3Vgq1GXOu DJujr9cip9WrU8QxpIAfwS e9w1bxOQThLeX1gBAbQHah E2onlbQezEKfCGStQSj3yJ uzYfWwFZYbq9qwxeNnCfOc SQZaOAZbTHPuvRplcie6iL 77SVItjG1cmOMgVEetmeHk EbJ5WVmsBRBzPyO0HWUlnY TyFSLpO7msQVPcRCfdZJPy VQbvsJXgERU6hKrxb0B4iZ VzaGVldHtcZjBcZnMyOCBO n7CiREw1xInoX7QoMBWaSa Q7aMJsYTWiTNeoCNGkVWQi atK6sW35ARpcawM6aYKmf3 Ggf21fy823mF1qsEIpRDX8 AYPuMOOijULgDHYpVHW1IZ DpfGQwC3zwEVCzEL1kzgxi NLgqLCdcQUBqrHY6VREaoN OeP5ZfTMKoWQwnSYReefp7 CyOdFg4cxZEubEuwJIdyn9 pwc2edpGFwEce9BFDsVlZq JgwrGLpvg5Yym5kmTGQjyi 0sWFU5fJUgjBdfo0X0iVSi HWRisDOdatNpPFKaXyX2GJ vuYH0nkg00DAWfYNE2ih5i bGNccGdicmRyaGVhZFxwZ2 OhAMHve737BAZmZ5XhGSIz c9I1flGyGyFpTKXtxUK2nl C6PHZjELm8fOJfsvR7deZe gOSkD3fijC2rPHGuKW5bgd wfq3fqBKmtRCtuUKGbxWO6 dbG9NYWgtFBtQ0WcqF7tNP WrGMgyPCSxlyu9WzOfEl0v dGVyeTcyMFxzYmtwYWdlXH BnbmNvbnRccGduZGVjXHBs YWluXHBsYWluXGYwXGZzMj FdxFabvCzrmX0nKdAwYwEx ERvsLA7aVKSbB0ccfRMmJA CjQWEsG3nmQaDibF2yvOqd MVxjZjJcZnMyMFxwYXIgSS BoYXZlIHBlcnNvbmFsbHkg ljT8vSR3EPYnQCzxXBWpBX CfuXYhkb9dwZzhMXRhMA2i IGFncmVlIHdpdGggYWxsIH M4KKIxxKBriXGoiPGsSNYu eSByZXNpZGVudHMsIGZlbG nxf8Bcv4WgxQG4dV1bw4nn o4PmIFXxoBK7SY28uuZ0sR 6aGTEiCW9wNJWfPF2uzXAr xWZjCJXuh60jhMonwhIvNN BvcnQuXHBsYWluXGYyXGZz MjhcbGFuZzEwMzNcaGljaF caPafiQtRsXCBeILjaC9nk YdMrGvNcECikRXF8eS== Clinical Information Abdominal pain, (test code = epigastric [R10.13]#2 [id number]) Eval for HPylori Gross Description (test w5mhiFZqMOZgrPUMXDQkJz code = 7522555600) ldqqJtLKNgxRNyR5Wuqomb GFvpNC2pKH1cgQyrqFLquN OwMV5ZUDWzDwZrXXDtyIIj dgJnJrHfVYMyaHNliDI3IK KgKD8thcjtJRqkOUurHCNg anB3DYPlbBZqJ0JgGPNuGQ 7qfanhQRG7LVncaE4cewHJ ZgodOw1maGObcNvtEqCwFl NoYXJzZXQwXGZuaWwgQXJp HXq7iF2NEmjyVHY7TSLBLw rzBBDyZL2Kl1rhICVocWXg JSP8EMxurZMfXTCgQHLwWY t0THRcQXuofWUvHU7vpIze XrxneDqzz2WlxDMlHCgdJB McPSIgBRizFEIvHR5SUpRy MDzDLdh5NZW9DoY5GXq7SL RAFaVwOwDhINQ5PBh8IoAe URn2HCn2SOkODtLrFqN2Nj nlWRx3EEY1INgcDZnrbIZo IFxcZiBBcmlhbCBcXGZzID SqCQoaJmghYZkkT49dnYal dJ9nDcRiKHNYEiZTVQ8CEQ VCLmwcOZKgZFqsmEijbS4l XNTjL49ew8VSe5PuPP8HUQ r8mzEwknyksU3eZFRlxfVl TEtaaIGcY3rkFuYmTSHQxM YakW0bhrEEMBemDNWoB1Kl akKpQZemEIAmnb4xzKkiIU saUjHhHNYto6u7bAP4hTKl zVZ2lYFdqKztQG7pcBEpFR SUHH04uDMgobZpp5LgzOFr mXknT2MapDXhShKun2AuTZ NpCmryjcDqZ49jp0fuzIGz r3LoQDS6EC6eqQghfmM4iQ HvtNVxCxSsG67tohQkCPzq YG3srC0fRHVfe69sUH2jRE ybAC6vMVtoHY4oQRLbVIGi BJWsZHJ6MTRcJNX7LBXfHL CweOzyg9paW9isZTEkVZAh iXTqzyUvGNCbud11D2uwTN XddU5yl5ewQcWtFKWiVHEa aLViyJP5QHZuyQ3veW98lo GwsaNAMB4nnAViCK6HHROc ciANCkthdGllIFRvZGQsIE hUTCAoQVNDUFxzdXBlciBD MZwqc4U9hDTyw3TtQArTWp xwbGFpblxlcGljTmVzdERv PqZovIzhuO71FTPmmFCrQF V1OA5fQYArpxkiSACyEAUn BAJ4IVuptL23lKVxDELmWV DybZDsyP1WHJDtVYI0QWgr kH92nWUiUV8NEOJbGLD8QM PpoACwBUU2OT0wzR8GrD== Disclaimer (test code = n7lalPXxRLMcl3vcSLPczE [id number]) FuZzEwMzNcZnRuYmpcdWMx YCszlbRgCNbzx3FgL2FaZk AwMFxhbnNpXGRlZmxhbmcx QNCtAJO1oaUhAIJzRQzbTP MxILztWs9gkUKgcUjyHtCa LXYzl5pdnxTGBGxpLsFfS6 05WVYjXOogs5fap2UaULNx kOYyr6U4SKZOqouuoTo3nA eoJ89mh4E0KlqwM7moQPHx SPTdE9HfQW5dTAYkUay6BK M9FEX3EZLiODMoH5JdCN6o EIOovFJbVXe4q2vhiZmbDI AhOGJ6q9itMIaiheAnKP3l cj6bdCr8m7cnwoIhTMEmZI QvqFPKSUCjH6JaeBuwTk9y lFs1mKiwKuohRSZ1Ket1CM 1rlz71avv2tWntTULlntaa VfR2NPjiLUEqhuzsHXn0QR qwYBSgnSA1OAHfkBZdX3Kb IQLxGX7jpkb7KJT4KBweHB KjQqN1VSSlhYVlTGPrsYql RJnxi136XPU8MmMvYY1tI6 Jln1G5eV3hcCJxXDXucLYj UtGqLWZmef2yrBNiUVoiq1 LcCRZ8hmR9iTNhtCLvDTSd ZB56Yjjpb2QuQnpgx5TxK1 8uvAG8HKbtb4diMR5vOiC7 goLyKLhql7jexW2lYwI4PN cqLP0eVX1mYUDdbY4rhfjj XHBnYnJkcmhlYWRccGdicm XxKv3hbEwoXMX4XAeiS3xs fI3pQaC6NRfaZ3dxaM6aYS a5UJpftZR6XAJyeZ1xKM1w amkhp3whLMkgZHqaGRSttj O2ouQ1JALiuTGiZ4BphT8e RXLfAZ0hpmvsh0baFVE2JI bgFVTpDJU5XkRiTRVzw7Tj pzt3NzVac4YkqWRiOFjyL9 9bi899DSRfmcRtD1zhjSBh vbixxLEghcwdRJjrssX0QX FkdlErm2XvCQOzHHS4HWwl EOsngDTkYBEbbXmet2duI4 RscGFyXHBsYWluXGYxXGZz MjBcbGFuZzEwMzNcaGljaF ypVBhlWtZqFLZvREqwF9qj UxXwZ6TkTELjOvAmuILqK5 ggVGhpcyByZXBvcnQgbWF5 YRkeQ3f6ZLItyfJwgOp7mu ApDpXyZNGhWLM6CKzmuTIp QCJfp5DvswmkvSHuYk9vhN KaEPYnsN2tXSFyJUOeLNsi FD3rbJz1CHAHcPBrfVTkBa UBUTTlLD46thEcQTJGnlkz s2I7IZhyAOWvi1KxoEJaG8 edu0VeSJHmi81jJL2gx9P6 m3eeNOY9IR2tn0SeAKXzrO YguHWfQYPoj4Ekmnrnf2Xz DDZaibRwq6RsATAfeeLvaK UlOQFlgqShtp6ncnBiWOLn CCGzJ0DxgnbelQqbonAtDB Dmem3hfiJzZDH1QZIDPPCs LIXom2VjkG8vdGFQYOQ6xO Xqnn7szeKUoUGaCXBglc09 IRTqUK7dA3vhQEXlGELuay TwxPPxc8ImJKKoqJL3sLIr ZA6QHlLUf16iVHHxWOLJyy EmEYNwpRsftRN1gcL4lW6r IChGREEpLlx+IFRoZSBGRE ZwGE0wliXbl4DvohOquAfq CQDjqXBed7UhfOXnj0ZyhY ldx7QtxITozPKrQC9wKMTm clxwYXIgVVRNQiBMYWJvcm M7n0AjBYGlBMHxUID9pBto ycw8RUYdnO6fFLAnA9xmsl mkNHerTBBrr6LbmZ6hdVLP kBOwm0WsuPQusUAEuFLkBO 0gwkHlHAqRSEmKJIV9ttNy AVUzb4GwHMchT0nyX34hmX mtsRa0rJW3MGC0aG2xOht+ IFxwYXJccGFyIEFwcHJvcH SnQOAgxAiehnXdS8WlvhYo oY3smNFqytMrAT5tNK9tK2 Y7mMAxFCLlvnWni2otKDvy dmUgYmVlbiByZXZpZXdlZC Tsa9KxLIvvTEO8VJlqyfPb bmNsdWRpbmcgSCZFLCBTcG OzaHXaOJB9HXyjnyLxlyDj WK2ptH4oqGkjvM5ivLEzoP B4ydtbJRImHVOrmVspHXZc YE0qmQIiEUVvajMNcDwwcM SdhE3tK8CmBAWfSSOzer1p VWJzsJ0hZDclo9NnxptiYO RlJBFbCPLobcGnyf8nBJLm pWECDE2YLNowaSKff7Wuuk VmD7nBXBO3NHCoThMnGjlr ABFnzZFweCZqONSbxo95HK GfrQ7vzQehRSKmnZ1ypH2v aJhjyN1rOnTrBlKgPUqrDD 4cUOPoB4tsyVDnNGZeTJPp M3wgRbXgfU3rwPgjSElxTx KuClQwOPklENJ9oP== Embedded Images (test code = 5836928862) [facility]21-[facility]-13 15:05:18 Test Item Value Reference Range Interpretation Comments POCT GLU (test code = 2431151667) 107 mg/dL 70-110 Lab Interpretation (test code = Normal 41447-7) [facility]2021-08-13 15:05:18 Test Item Value Reference Range Interpretation Comments POCT GLU (test code = 2860134688) 107 mg/dL 70-110 Lab Interpretation (test code = Normal 99514-2) [facility] [id number] 14:43:00 Test Item Value Reference Range Interpretation Comments POCT PREG (test code = 1605) Negative On board controls acceptable with C Yes Line (test code = 3574) POCT PREG LOT # (test code = 3575) POCT PREG TEST DATE (test code = 3576) Lab Interpretation (test code = Normal 97845-6) [facility] [id number] 14:43:00 Test Item Value Reference Range Interpretation Comments POCT PREG (test code = 1605) Negative On board controls acceptable with C Yes Line (test code = 3574) POCT PREG LOT # (test code = 3575) POCT PREG TEST DATE (test code = 3576) Lab Interpretation (test code = Normal 12149-0) [facility] HEMOGLOBIN A1C [id number] 21:13:00 Test Item Value Reference Range Interpretation Comments POCT HBA1C (test code = 4548-4) 6.0 % 4-6 [facility] HEMOGLOBIN A1C [id number] 21:13:00 Test Item Value Reference Range Interpretation Comments POCT HBA1C (test code = 4548-4) 6.0 % 4-6 [facility]
[2021-10-28 17:54] LABS: Absolute Lymphocytes (CBC) 1.9 K/uL (0.7-4.9); Hematocrit 47.9 % (36.0-45.0); Lymphocytes % 22.9 % (15.3-44.8); MPV 8.8 fL (7.6-11.3); RBC Red Blood Cell Count 5.46 M/uL (3.86-4.86)
[2021-10-28] MEDS ORDERED: MORPHINE 4 MG/ML SYR ONE ×2 (18:08→19:19)
[2021-10-28] MEDS ORDERED: ONDANSETRON 4 MG/2 ML VIAL ONE ×2 (18:08→19:19)
[2021-10-28 18:21] LABS: ALT/SGPT 28 U/L (12-78); AST/SGOT 13 U/L (15-37); Alkaline Phosphatase 98 U/L (45-117); BUN Blood Urea Nitrogen 17 mg/dL (7-18); Bicarbonate 24 mmol/L (21-32); Bilirubin Direct < 0.1 mg/dL (0-0.2); Bilirubin Total 0.4 mg/dL (0.2-1.0); Glucose Level 87 mg/dL (74-106); Lipase 160 U/L (73-393); Potassium 4.4 mmol/L (3.5-5.1); Protein, Total 8.6 g/dL (6.4-8.2); Sodium Level 140 mmol/L (136-145)
--- NOTE | 2021-10-28 19:10 | RAD REPORT ---
EXAM DESCRIPTION: US - Abdomen Exam Limited - 10/28/2021 6:27 pm CLINICAL HISTORY: r/o gb;Abd pain COMPARISON: Abdomen Pelvis Wo Contrast dated 03/03/2020 FINDINGS: No gallstones, sludge or other abnormalities within the gallbladder lumen. There is no wal l thickening or pericholecystic fluid. No common duct stone or biliary tree dilatation identified. IMPRESSION: Normal gallbladder and biliary tree ultrasound.
--- NOTE | 2021-10-28 19:17 | RAD REPORT ---
EXAM DESCRIPTION: CT - Abdomen Pelvis W Contrast - 10/28/2021 6:49 pm CLINICAL HISTORY: ABD PAIN COMPARISON: Abdomen Pelvis W Contrast dated 11/17/2017 TECHNIQUE: Biphasic, helical CT imaging of the abdomen and pelvis was performed following 100 ml non -ionic IV contrast. No oral contrast administered. All CT scans are performed using dose optimization technique as appropriate and may include automated exposure control or mA/KV adjustment according to patient size. FINDINGS: No suspicious findings in the lung bases. No cardiomegaly or pericardial effusion. Bilater al breast implants are in place, partially imaged. The liver, spleen, and pancreas show no suspicious findings. Gallbladder and biliary tree are also wi thout suspicious finding. Gallstones can be occult on CT imaging. Earlier ultrasound showed no gallbl adder abnormality. Renal function is symmetric. Parapelvic and cortical cysts are noted on the left small in size and wi th no suspicious characteristics. A 10 mm nonobstructing calculus and an adjacent 7 mm nonobstructing calculus noted lower pole left kidney. Areas of cortical thinning are present on the left possibly f rom prior infection. These are similar to comparison. No pyelonephritis or acute parenchymal process. No bladder abnormalities. No adrenal abnormalities. Uterus and ovaries show no suspicious findings. No gastric dilatation or gastric wall thickening. Duodenum is unremarkable. There are few small nonsp ecific central mesenteric lymph nodes. No appendicitis. There is minimal wall thickening in the cecum and adjacent stranding in the fat. This appears to be adjacent to but not originating from the base of the appendix. Finding is suspected to be epiploic appendagitis. Emergent significance is unknown. History is epigastric or periumbilical pain rather than right lower quadrant symptoms. No free air fr ee fluid or pneumatosis. No other areas of inflammatory stranding. No mass or bulky lymphadenopathy. No suspicious bony findings. No acute vascular finding. IMPRESSION: Focal area of wall thickening seen along the anti mesenteric margin of the cecum with st randing and edema in the adjacent fat. This appears to be adjacent to rather than involving the base of the appendix. Epiploic appendagitis of the cecum is suspected rather than appendicitis. Correlation is needed to determine if this finding of the cecum is a potential source for the patient 's pain. There are no other findings that would explain the provided history of epigastric and perium bilical pain.
[2021-10-28 19:43] LABS: Urine Blood Trace-intact (Negative); Urine Glucose Negative (Negative); Urine Protein Negative (Negative); Urine Specific Gravity 1.025 (1.005-1.030)
[2021-10-28] MEDS ORDERED: CIPROFLOXACIN HCL 500 MG TAB ONE (19:50)
[2021-10-28] MEDS ORDERED: CEFTRIAXONE 1000 MG/VIAL ONE (19:51)
[2021-10-28] MEDS ORDERED: METRONIDAZOLE 500mg IVPB 500 MG/100 ML BAG IV ONE (19:51)
[2021-10-28] MEDS ORDERED: NA CHLORIDE 0.9% 100 ML IV ONE (19:53)
--- NOTE | 2021-10-28 19:55 | ER ---
Nurse's Notes [facility] Name: Sadia Mcpherson Age: 51 yrs Sex: Female : 1970 Arrival Date: 10/28/2021 Time: 13:40 Bed 16 Private MD: Diagnosis: Epiploic Appendagitis;UTI/ Urinary tract infection, site not specified Presentation: 10/28 14:39 Chief complaint: Patient states: 'severe' Epigastric pain that radiates to back and to vg1 LUQ; states nausea that began last night. Coronavirus screen: Vaccine status: Patient reports being unvaccinated. Client denies travel out of the [place] in the last 14 days. Ebola Screen: Patient negative for fever greater than or equal to 101.5 degrees Fahrenheit, and additional compatible Ebola Virus Disease symptoms. Initial Sepsis Screen: Does the patient meet any 2 criteria? No. Patient's initial sepsis screen is negative. Does the patient have a suspected source of infection? No. Patient's initial sepsis screen is negative. Risk Assessment: Do you want to hurt yourself or someone else? Patient reports no desire to harm self or others. Onset of symptoms was October 27, 2021. 14:39 Method Of Arrival: Wheelchair vg1 14:39 Acuity: JAYLEN 3 vg1 Triage Assessment: 14:44 General: Appears in no apparent distress. uncomfortable, Behavior is calm, cooperative. vg1 Pain: Complains of pain in epigastric area Pain radiates to back. GI: Abdomen is round non-distended, obese. 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:44 LMP N/A - Post-menopause vg1 Historical: - Allergies: 14:44 Wellbutrin; vg1 14:44 tobramycin; vg1 14:44 Sulfa (Sulfonamide Antibiotics); vg1 14:44 Lamictal; vg1 - Home Meds: 14:44 aspirin 81 mg Oral chew 1 tab once daily [Active]; Coreg 12.5 mg Oral tab 1 tab 2 times vg1 per day [Active]; levothyroxine 75 mcg tab 1 tab once daily [Active]; Seroquel 300 mg Oral tab 1 tab once daily [Active]; simvastatin 20 mg Oral tab 1 tab once daily [Active]; - PMHx: 14:44 Depression; Hypertension; Hypothyroidism; Kidney stones; vg1 - Immunization history:: Client reports having NOT received the Covid vaccine. - Social history:: Smoking status: Patient denies any tobacco usage or history of. Screenin:00 Abuse screen: Denies threats or abuse. Denies injuries from another. Nutritional ww screening: No deficits noted. Tuberculosis screening: No symptoms or risk factors identified. Fall Risk None identified. Assessment: 18:00 General: Appears in no apparent distress. comfortable, Behavior is calm, cooperative, ww appropriate for age. Pain: Denies pain. Neuro: Level of Consciousness is awake, alert, obeys commands, Oriented to person, place, time, situation. Cardiovascular: No deficits noted. Respiratory: No deficits noted. Airway is patent Respiratory effort is even, unlabored, Respiratory pattern is regular, symmetrical. GI: Abdomen is non-distended, Abd is soft Abdomen is tender to palpation X 4 quads. Reports lower abdominal pain, upper abdominal pain, nausea. : No deficits noted. No signs and/or symptoms were reported regarding the genitourinary system. Derm: No deficits noted. No signs and/or symptoms reported regarding the dermatologic system. Skin is intact, is healthy with good turgor, Skin is pink, warm \T\ dry. Musculoskeletal: No deficits noted. 19:29 Reassessment: Patient and/or family updated on plan of care and expected duration. Pain vc1 level reassessed. Patient is alert, oriented x 3, equal unlabored respirations, skin warm/dry/pink. Patient states symptoms have not improved. Pain: Complains of pain in epigastric area Pain radiates to back Pain currently is 8 out of 10 on a pain scale. Quality of pain is described as sharp, squeezing, throbbing. GI: Bowel sounds present X 4 quads. 20:30 Reassessment: Patient and/or family updated on plan of care and expected duration. Pain vc1 level reassessed. Patient is alert, oriented x 3, equal unlabored respirations, skin warm/dry/pink. Patient states feeling better. Patient states symptoms have improved. Vital Signs: 14:39 BP 126 / 92; Pulse 84; Resp 20; Temp 98.4; Pulse Ox 100% ; Weight 90.72 kg; Height 5 vg1 ft. 4 in. (162.56 cm); Pain 10/10; 18:49 BP 121 / 69; Pulse 80; Resp 18; Pulse Ox 97% on R/A; ww 20:00 BP 127 / 66; Pulse 80; Resp 18; Pulse Ox 98% on R/A; vc1 14:39 Body Mass Index 34.33 (90.72 kg, 162.56 cm) vg1 ED Course: 13:40 Patient arrived in ED. ja2 14:44 Triage completed. vg1 14:44 Arm band placed on. vg1 16:36 Patient placed in an exam room, on a stretcher. ll1 16:39 Diego Mae PA is PHCP. jr8 16:39 Jayesh Agarwal MD is Attending Physician. jr8 16:39 Swapna Chua, SILVIA is Primary Nurse. ww 18:00 Inserted saline lock: 22 gauge in left forearm, using aseptic technique. ww 18:28 US Abdomen Limited In Process Unspecified. EDMS 18:34 PHCP role handed off by Diego Mae PA pm1 18:34 Darius Sr NP is PHCP. pm1 18:48 CT Abd/Pelvis - IV Contrast Only In Process Unspecified. EDMS 20:04 Urine Microscopic Only Sent. vc1 20:24 Vijay Ross MD is Referral Physician. pm1 20:38 No provider procedures requiring assistance completed. IV discontinued, intact, vc1 bleeding controlled, No redness/swelling at site. Administered Medications: 18:12 Drug: Zofran (Ondansetron) 4 mg Route: IVP; Site: left forearm; ww 19:28 Follow up: Response: No adverse reaction vc1 18:16 Drug: morphine 4 mg Route: IVP; Site: left forearm; ww 19:28 Follow up: Response: No adverse reaction vc1 19:26 Drug: morphine 4 mg Route: IVP; Site: left forearm; vc1 20:25 Follow up: Response: No adverse reaction vc1 19:26 Drug: Zofran (Ondansetron) 4 mg Route: IVP; Site: left forearm; vc1 20:25 Follow up: Response: No adverse reaction vc1 20:05 Drug: Cipro (ciprofloxacin) 500 mg Route: PO; vc1 20:25 Follow up: Response: No adverse reaction vc1 20:05 Drug: Flagyl (metroNIDAZOLE) 500 mg Volume: 100 ml; Route: IVPB; Rate: 200 ml/hr; vc1 Infused Over: 30 mins; Site: left forearm; 20:25 Follow up: Response: No adverse reaction; IV Status: Completed infusion vc1 20:05 Drug: Rocephin (cefTRIAXone) 2 grams Route: IV; Rate: calculated rate; Site: left vc1 forearm; 20:25 Follow up: Response: No adverse reaction; IV Status: Completed infusion vc1 Outcome: 19:54 Discharge ordered by MD. pm1 20:39 Discharged to home ambulatory. vc1 20:39 Condition: stable 20:39 Discharge instructions given to patient, Instructed on discharge instructions, follow up and referral plans. medication usage, Demonstrated understanding of instructions, follow-up care, medications, Prescriptions given X 4. 20:39 Patient left the ED. vc1 Signatures: Dispatcher [employer] EDMS Diego Mae PA PA 8 Darius Sr, MELODY CURBER pm1 Valentina Nguyen RN RN vg1 Martha Crawley RN RN 1 Masha Ridley Whitney, RN RN Maricruz Chavez RN RN vc1 Corrections: (The following items were deleted from the chart) 14:45 14:44 Allergies: Toradol; vg1 vg1 14:45 14:44 PMHx: HYPERTHYROID; vg1 vg1 14:56 14:39 Chief complaint: Patient states: 'severe' Epigastric pain that radiates to back; vg1 states nausea that began last night. vg1
--- NOTE | 2021-10-28 19:55 | EDPHYS ---
Physician Documentation [facility] Name: Sadia Mcpherson Age: 51 yrs Sex: Female : 1970 Arrival Date: 10/28/2021 Time: 13:40 Bed 16 Private MD: MP Physician Jayesh Agarwal HPI: 10/28 18:11 This 51 yrs old Female presents to ER via Wheelchair with complaints of Abdominal Pain. jr8 18:11 The patient presents with abdominal pain in the epigastric area. Onset: The jr8 symptoms/episode began/occurred acutely, today. The symptoms radiate to back. Associated signs and symptoms: Pertinent positives: nausea. The symptoms are described as sharp. Modifying factors: The symptoms are alleviated by nothing, the symptoms are aggravated by nothing. Severity of pain: At its worst the pain was moderate in the emergency department the pain is unchanged. The patient has not experienced similar symptoms in the past. The patient has not recently seen a physician. 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 - Social history:: Smoking status: Patient denies any tobacco usage or history of. ROS: 18:11 Eyes: Negative for injury, pain, redness, and discharge, ENT: Negative for injury, jr8 pain, and discharge, Neck: Negative for injury, pain, and swelling, Cardiovascular: Negative for chest pain, palpitations, and edema, Respiratory: Negative for shortness of breath, cough, wheezing, and pleuritic chest pain, Back: Negative for injury and pain, MS/Extremity: Negative for injury and deformity, Skin: Negative for injury, rash, and discoloration, Neuro: Negative for headache, weakness, numbness, tingling, and seizure. 18:11 Abdomen/GI: Positive for abdominal pain, nausea, Negative for vomiting, diarrhea, hematemesis, rectal bleeding. Exam: 18:11 Cardiovascular: Regular rate and rhythm with a normal S1 and S2. No gallops, murmurs, jr8 or rubs. Normal PMI, no JVD. No pulse deficits. Respiratory: Lungs have equal breath sounds bilaterally, clear to auscultation and percussion. No rales, rhonchi or wheezes noted. No increased work of breathing, no retractions or nasal flaring. Back: No spinal tenderness. No costovertebral tenderness. Full range of motion. Skin: Warm, dry with normal turgor. Normal color with no rashes, no lesions, and no evidence of cellulitis. MS/ Extremity: Pulses equal, no cyanosis. Neurovascular intact. Full, normal range of motion. Neuro: Awake and alert, GCS 15, oriented to person, place, time, and situation. Cranial nerves II-XII grossly intact. Motor strength 5/5 in all extremities. Sensory grossly intact. 18:11 Constitutional: The patient appears alert, awake, in obvious pain, uncomfortable. 18:11 Abdomen/GI: Inspection: obese Bowel sounds: active, all quadrants, Palpation: soft, in all quadrants, moderate abdominal tenderness, in the epigastric area, rebound tenderness, is not appreciated, voluntary guarding, is not appreciated, involuntary guarding, is not appreciated, no appreciated organomegaly, Indicators: McBurney's point is not tender, Adams's sign is negative, Rovsing's sign is negative, Liver: tenderness, is not appreciated. Vital Signs: 14:39 BP 126 / 92; Pulse 84; Resp 20; Temp 98.4; Pulse Ox 100% ; Weight 90.72 kg; Height 5 vg1 ft. 4 in. (162.56 cm); Pain 10/10; 18:49 BP 121 / 69; Pulse 80; Resp 18; Pulse Ox 97% on R/A; ww 20:00 BP 127 / 66; Pulse 80; Resp 18; Pulse Ox 98% on R/A; vc1 14:39 Body Mass Index 34.33 (90.72 kg, 162.56 cm) vg1 MDM: 16:39 Patient medically screened. [facility] 19:35 Data reviewed: radiologic studies, CT scan, Treat Epiploic appendagitis with rocephin 2 pm1 gm, cipro, and flagyl in ER and discharge with cipro and flagyl, I have discussed the patient's presentation/case with the attending Emergency Department Physician;. 19:39 Data reviewed: vital signs. Data interpreted: Pulse oximetry: on room air is 97 %. pm1 Interpretation: normal. 19:51 Counseling: I had a detailed discussion with the patient and/or guardian regarding: the pm1 historical points, exam findings, and any diagnostic results supporting the discharge/admit diagnosis, lab results, radiology results, the need for outpatient follow up, to return to the emergency department if symptoms worsen or persist or if there are any questions or concerns that arise at home. 10/28 16:39 Order name: Basic Metabolic Panel; Complete Time: 18:22 [facility] 10/28 16:39 Order name: CBC with Diff; Complete Time: 18:05 [facility] 10/28 16:39 Order name: Hepatic Function; Complete Time: 18:22 [facility] 10/28 16:39 Order name: Lipase; Complete Time: 18:22 [facility] 10/28 19:43 Order name: Urine Dipstick-Ancillary; Complete Time: 19:49 [facility] 10/28 19:46 Order name: Urine Microscopic Only [facility] 10/28 17:49 Order name: CT Abd/Pelvis - IV Contrast Only; Complete Time: 19:24 [facility] 10/28 17:50 Order name: US Abdomen Limited; Complete Time: 19:15 [facility] 10/28 19:47 Order name: Urine Microscopic Only; Complete Time: 20:23 [facility] 10/28 20:17 Order name: Urine Culture [facility] 10/28 16:39 Order name: IV Saline Lock; Complete Time: 18:40 [facility] 10/28 16:39 Order name: Labs collected and sent; Complete Time: 18:40 [facility] 10/28 19:37 Order name: Urine Dipstick-Ancillary (obtain specimen); Complete Time: 19:46 pm1 Administered Medications: 18:12 Drug: Zofran (Ondansetron) 4 mg Route: IVP; Site: left forearm; 19:28 Follow up: Response: No adverse reaction vc1 18:16 Drug: morphine 4 mg Route: IVP; Site: left forearm; ww 19:28 Follow up: Response: No adverse reaction vc1 19:26 Drug: morphine 4 mg Route: IVP; Site: left forearm; vc1 20:25 Follow up: Response: No adverse reaction vc1 19:26 Drug: Zofran (Ondansetron) 4 mg Route: IVP; Site: left forearm; vc1 20:25 Follow up: Response: No adverse reaction vc1 20:05 Drug: Cipro (ciprofloxacin) 500 mg Route: PO; vc1 20:25 Follow up: Response: No adverse reaction vc1 20:05 Drug: Flagyl (metroNIDAZOLE) 500 mg Volume: 100 ml; Route: IVPB; Rate: 200 ml/hr; vc1 Infused Over: 30 mins; Site: left forearm; 20:25 Follow up: Response: No adverse reaction; IV Status: Completed infusion vc1 20:05 Drug: Rocephin (cefTRIAXone) 2 grams Route: IV; Rate: calculated rate; Site: left vc1 forearm; 20:25 Follow up: Response: No adverse reaction; IV Status: Completed infusion vc1 Disposition: 10/29 07:50 Co-signature as Attending Physician, Jayesh Agarwal MD I agree with the assessment and zhang plan of care. Disposition Summary: 10/28/21 19:54 Discharge Ordered Location: Home pm1 Problem: new pm1 Symptoms: have improved pm1 Condition: Stable pm1 Diagnosis - Epiploic Appendagitis pm1 - UTI/ Urinary tract infection, site not specified pm1 Followup: pm1 - With: Emergency Department - When: As needed - Reason: Worsening of condition Followup: pm1 - With: Private Physician - When: 2 - 3 days - Reason: Recheck today's complaints, Continuance of care, Re-evaluation by your physician Followup: pm1 - With: Vijay Ross MD - When: 2 - 3 days - Reason: Recheck today's complaints, Continuance of care, Re-evaluation by your physician Discharge Instructions: - Discharge Summary Sheet pm1 - Epiploic Appendagitis pm1 Forms: - Medication Reconciliation Form pm1 - Thank You Letter pm1 - Antibiotic Education pm1 - Prescription Opioid Use pm1 Prescriptions: - Flagyl 500 mg Oral Tablet - take 1 tablet by ORAL route every 8 hours for 10 days; 30 tablet; Refills: 0, pm1 Product Selection Permitted - Cipro 500 mg Oral Tablet - take 1 tablet by ORAL route every 12 hours for 10 days; 20 tablet; Refills: 0, pm1 Product Selection Permitted - Diflucan 150 mg Oral Tablet - take 1 tablet by ORAL route one time for 1 day; 1 tablet; Refills: 0, Product pm1 Selection Permitted - ondansetron 4 mg Oral tablet,disintegrating - place 1 tablet by TRANSLINGUAL route every 8 hours As needed; 15 tablet; pm1 Refills: 0, Product Selection Permitted - Tylenol-Codeine #3 300 mg-30 mg Oral - take 2 tablet by ORAL route every 6 hours As needed; 20 tablet; Refills: 0, pm1 Product Selection Permitted Signatures: Dispatcher [employer] EDJayesh Malin MD MD cha Roszak, Josh, PA PA jr8 Darius Sr NP LEGAL PARAPROFESSIONAL pm1 Valentina Nguyen RN RN vg1 Swapna Chua RN RN ww Maricruz Chavez RN RN vc1 Corrections: (The following items were deleted from the chart) 10/28 14:45 14:44 Allergies: Toradol; vg1 vg1 14:45 14:44 PMHx: HYPERTHYROID; vg1 vg1
[2021-10-28 20:16] LABS: Urine Amorphous Sediment 2+ /HPF (NONE SEEN); Urine Bacteria >50 /HPF (<20)
[2021-10-28 21:21] VITALS: TEMP 98.4
[2021-10-28 21:26] VITALS: BP 121/69; O2SAT 97
--- NOTE | 2021-10-30 07:29 | EKG ---
Test Date: 2021-10-28 Test Time: 14:55:26 Book Coverer: VERITO MEASUREMENT RESULTS: Intervals: Rate: 81 OR: 146 QRSD: 86 QT: 380 QTc: 441 [place]: P: 40 OR: 146 QRS: 39 T: 47 INTERPRETIVE STATEMENTS: Normal sinus rhythm Normal ECG Compared to ECG 02/07/2021 21:58:35 No significant changes Electronically Signed On 10-30-21 07:26:25 RECOATER by Law Butler
== END 2021-10-28 20:39 | disposition home or self-care (01) ==
LOC: ER 13:36
DX: K63.89 Other specified diseases of intestine (principal); N39.0 Urinary tract infection, site not specified; I10 Essential (primary) hypertension; E03.9 Hypothyroidism, unspecified; F32.A Depression, unspecified; Z79.82 Long term (current) use of aspirin; Z88.1 Allergy status to other antibiotic agents; Z88.2 Allergy status to sulfonamides
CPT/HCPCS: 93005; 87088; 85025; 87086; 80048; 36415; 80076; 83690; 74177; 76705; Q9967; J2405 ×2; 81003; 81015; 96365; 96368; 96375; 99284

== ENCOUNTER 2022-02-11 14:12 | Emergency (ER) | payer MEDICARE, OTHER ==
--- OUTSIDE RECORDS SUMMARY | 2022-02-11 14:16 | XMS REPORT | Continuity of Care Document ---
:1970 Author Organization [facility] t Address [address] [place] [address] Care Team Providers Name Role Phone Kim Foster MD Primary Care Physician Chery MERCER Attending Clinician Unavailable SIMONA Attending Clinician Unavailable DOMINGUEZ Attending Clinician Unavailable KIM FOSTER Attending Clinician Unavailable Simona EID Attending Clinician LAB90 Attending Clinician Unavailable ANENE Attending Clinician Unavailable Morales Quintero MD Attending Clinician Andres VGEA, T Attending Clinician Unavailable NABOR Attending Clinician Unavailable Green CHECK PILOT Attending Clinician Ebrahim CHECK PILOT Attending Clinician SAMANTHA Attending Clinician Unavailable Morales Kinsey Attending Clinician Radha Leyva MD Attending Clinician Man VEGA, L Attending Clinician Unavailable Yazan EID Attending Clinician Bruce Guardado MD, J Attending Clinician Eduardo EID Attending Clinician Samantha TIRADO Attending Clinician Bruce Guardado MD, J Admitting Clinician Payers Payer Name Policy Type Policy Number Effective Date Expiration Date S ource MEDICARE PART B [id number] [place] * [employer] MEDICARE 7 [id number] 2022 [id number] GOLD 00:00:00 PLUS 2021 [employer] GOLD PLS [id number] 2022 HMO 00:00:00 Problems Condition Condition Condition Status Onset Resolution Last Treating Co mments Source Name Details Category Date Date Treatment Clinician Date Acquired Acquired Disease Active Unive rs hypothyroi hypothyroi 6 it y of dism dism 00:: [place] [facility] Dyslipidem Dyslipidem Disease Active U brenda ia ia 03-20 ity of 00:: [place] [facility] Vitamin D Vitamin D Disease Active Uni vers deficiency deficiency - it y of :: [place] [facility] Elevated Elevated Disease Active Nickie rs liver liver 5-05 ity of enzymes enzymes 00:00: [place] [facility] 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 Added automatic ally from request for surgery [id number] Menorrhagi Menorrhagi Disease Active U brenda a [...] Overview: Un fernanda high risk high risk - Formattin i ty of human human 00:00: g of this [place] papillomav papillomav 00 note Me dical irus (HPV) irus (HPV) might be Branch DNA test DNA test different positive positive from the original. 10/28/18 - pap smear normal; HPV 16 positive - colposcop y normal. ECC benign. 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 1-17 ity of 00:00: [address] Bilateral Bilateral Disease Active Uni vers lower lower 7-20 [place] [facility] Overweight Overweight Disease Active U nivers (BMI (BMI 7-20 ity of 25.0-29.9) 25.0-29.9[place] [facility] Low back Low back Disease Active Unive rs pain pain 3-14 ity of 00:00: [address] Hydronephr Hydronephr Disease Active U nivers osis osis 3-14 ity of 00:00: [address] History of History of Disease Active U nivers urinary urinary 3-14 ity of stone stone 00:00: [address] Loss of Loss of Disease Active Univers muscle muscle 3-14 ity of tone of tone of 00:00: [place] bladder bladder 00 [facility] Staph skin Staph skin Disease Active U nivers infection infection ity of [facility] Prediabete Prediabete Disease Active U nivers s s ity of [facility] No known No known Disease Kelse y active active [place] problems problems Allergies, Adverse Reactions, Alerts Allergy Allergy Status Severity Reaction(s) Onset Inactive Treating Comm ents Source Name Type Date Date Clinician Lamotrig Propensi Active Rash Alexandre Benavidez ine ty to 11 Supa Snyderybold adverse 00:00: reaction 00 s Minocycl Propensi Active Rash 2017-0 Reema ine ty to 04-21 [place] adverse 00:00: reaction 00 s Sulfa Propensi Active Rash 2017-0 Reema Drugs ty to 04-21 [place] adverse 00:00: reaction 00 s Minocycl Propensi Active Rash 2017-0 Univer s ine ty to 04-21 ity of adverse 00:00: [place] reaction 00 Medical s Branch Sulfa Propensi Active Rash 2017-0 Univers (Sulfona ty to 04-21 ity of mide adverse 00:00: [place] Antibiot reaction 00 Medica l ics) s Branch Bupropio Propensi Active Swelling 2016-0 Univ ers n ty to 04-21 ity of adverse 00:00: [place] reaction 00 Medical s Branch LAMOTRIG DRUG Active High Rash 2017-0 Univers INE INGREDI 04-21 ity of 00:00: [place] 00 Medical Branch MINOCYCL DRUG Active Rash 2017-0 Univers INE INGREDI 04-21 ity of 00:00: [place] 00 Medical Branch SULFA Drug Active Rash 2017-0 Univers (SULFONA Class 04-21 ity of MIDE 00:00: [place] ANTIBIOT 00 Medical ICS) Branch BUPROPIO DRUG Active Swelling 2016-0 Univer s N INGREDI 04-21 ity of 00:00: [place] 00 Medical Branch Sulfa Propensi Active Rash 2017-0 Univers (Sulfona ty to 04-21 ity of mide adverse 00:00: [place] Antibiot reaction 00 Medica l ics) s Branch Bupropio Propensi Active Swelling 1899-0 Kaykay ey n ty to 10-12 [place] adverse 00:00: reaction 00 s Doxycycl Propensi Active 1899- Reema ine ty to 10-12 [place] Monohydr adverse 00:00: ate reaction 00 s Tobramyc Propensi Active Other Reema in ty to 10-12 reaction( [place] adverse 00:00: s): reaction 00 Unknown - s See comments Bupropio Drug Active Other - See Uni vers n Hcl Allergy comments 10-12 ity of 00:00: [place] 00 Medical Branch Sulfamet Drug Active Other - See Uni vers hoxazole Allergy comments 10-12 ity o f 00:00: [place] 00 Medical Branch Tobramyc Drug Active Unknown - 0-0 Unive rs in Allergy See comments 10-12 ity of 00:00: Medical Branch BUPROPIO DRUG Active Other-Cmnt 1900-0 Univ ers N HCL INGREDI 10-12 ity of 00:00: [place] [facility] SULFAMET DRUG Active Other-Cmnt 1900-0 Univ ers HOXAZOLE INGREDI 10-12 ity of 00:00: [place] [facility] TOBRAMYC DRUG Active Unknown-Cmnt 0-0 Un fernanda IN INGREDI 10-12 ity of 00:00: [place] [facility] Social History Social Habit Start Date Stop Date Quantity Comments Source Tobacco use and 2022-01-28 2022-01-28 Smokeless tobacco Ke heikeey [place] exposure 00:00:00 00:00:00 non-user Exposure to 2021-12-09 2022-01-08 Not sure [facility] SARS-CoV-2 00:00:00 12:27:00 [facility] (event) [place] Alcohol intake 2022-01-08 2022-01-08 Current University 00:00:00 00:00:00 non-drinker of [facility] [place] [facility] alcohol (finding) Branch Sex Ass[birth year] At [birth year] Reema Se ybold 00:00:00 00:00:00 Smoking Status Start Date Stop Date Source Never smoked tobacco Reema Cassidy old Medications Ordered Filled Start Stop Current Ordering Indication Dosage Frequency Signature Comments Components Source Medication Medication Date Date Medication? Clinician (SIG) Name Name Duloxetine Yes 1{capsu 1 capsule Reema HCl 30 MG 4-19 le} Seybold oral Cap DR 13:39: Particles 53 Quetiapine Yes 1{tbl} Take 1 Zak sey Fumarate 4-19 tablet by Seybol d 300 MG oral 13:39: mouth Tablet 53 Aspirin 81 Yes 81mg Take 81 mg K elsey MG oral 4-19 by mouth [place] Chewable 13:39: daily Tablet 53 VALACYCLOVI Yes [id number] TAKE ONE Univers R 500 mg 4-12 TABLET BY ity of tablet 00:00: MOUTH [place] [address] DAILY Medical Branch VALACYCLOVI Yes [id number] TAKE ONE Univers R 500 mg 4-12 TABLET BY ity of tablet 00:00: MOUTH [place] 00 DAILY Medical Branch Valacyclovi Yes 1{tbl} Take 1 Ke lsey r HCl 500 4-12 tablet by Seybo ld MG oral 00:00: mouth Tablet 00 daily Lantus Yes 12U Inject 12 Reema SoloStar 4-01 units into Seybo ld 100 UNIT/ML 00:00: the skin subcutaneou 00 daily s Solution Pen-injecto r promethazin 2021- Yes [id number] 5mL Take 5 mL Univers e-codeine 01-08 by mouth 4 ity of 6.25-10 00:00: 04:59 (four) [place] mg/5 mL 00 :00 times Medical syrup daily as Branch needed for Cough or Cold symptoms for up to 7 days. Indication s: acute pain promethazin 2021- Yes 4647 5mL Take 5 mL Univers e-codeine 01-08 by mouth 4 ity of 6.25-10 00:00: 04:59 (four) [place] mg/5 mL 00 :00 times Medical syrup daily as Branch needed for Cough or Cold symptoms for up to 7 days. Indication s: acute pain promethazin 2021- Yes 4647 5mL Take 5 mL Univers e-codeine 01-08 by mouth 4 ity of 6.25-10 00:00: 04:59 (four) [place] mg/5 mL 00 :00 times Medical syrup daily as Branch needed for Cough or Cold symptoms for up to 7 days. Indication s: acute pain oseltamivir 2021- Yes [id number] 75mg Take 1 Univers (TAMIFLU) 01-08-05 capsule by ity of 75 mg 00:00: 04:59 mouth 2 [place] capsule 00 :00 (two) Medical times Branch daily for 5 days. oseltamivir 2021- Yes [id number] 75mg Take 1 Univers (TAMIFLU) 3-05 capsule by ity of 75 mg 00:00: 04:59 mouth 2 [place] capsule 00 :00 (two) Medical times Branch daily for 5 days. aspirin 81 Yes 81mg Take 81 mg U nivers mg chewable 3-24 by mouth ity of tablet 13:15: daily. [address] desvenlafax Yes 1{tbl} Take 1 Un fernanda ine 3-24 tablet by ity of succinate 13:15: mouth [place] (PRISTIQ) 54 daily. Medical 25 mg Tb24 Branch HYDROcodone Yes hydrocodon Univers -acetaminop 3-24 e 10 ity of hen 10-325 13:15: mg-acetami [place] mg tablet 54 nophen 325 Medi owen mg tablet Branch Cholecalcif Yes Vitamin D3 Univers geoffrey, 3-24 10 mcg ity of Vitamin D3, 13:15: (400 unit) [place] 10 mcg (400 54 capsule Medic al unit) Take by Branch capsule oral route. metFORMIN Yes metformin Uni vers 500 mg 3-24 500 mg ity of tablet 13:15: tablet [address] aspirin 81 Yes aspirin 81 U nivers mg EC 3-24 mg ity of tablet 13:15: tablet,del [place] [address] ayed Medical release Branch Take 1 tablet every day by oral route. carvediloL Yes Coreg 25 Uni vers (COREG) 25 3-24 mg tablet ity of mg tablet 13:15: Take 1 [place] [address] tablet Medical twice a Branch day by oral route. simvastatin Yes simvastati Univers 20 mg 3-24 n 20 mg ity of tablet 13:15: tablet [address] traZODone Yes trazodone Uni vers 50 mg 3-24 50 mg ity of tablet 13:15: tablet [address] desvenlafax Yes Univer s ine 3-24 ity of succinate 13:15: [place] (PRISTIQ) Medical 25 mg Tb24 Branch QUEtiapine Yes Seroquel Uni vers (SEROQUEL) 3-24 200 mg ity of 200 mg 13:15: tablet [place] tablet 54 Take 1 Medical tablet Branch twice a day by oral route. levothyroxi Yes levothyrox Univers ne 50 mcg 3-24 ine 50 mcg ity of tablet 13:15: tablet [address] aspirin 81 Yes 81mg Take 81 mg U nivers mg chewable 3-24 by mouth ity of tablet 13:15: daily. [address] desvenlafax Yes 1{tbl} Take 1 Un fernanda ine 3-24 tablet by ity of succinate 13:15: mouth [place] (PRISTIQ) 54 daily. Medical 25 mg Tb24 Branch HYDROcodone Yes hydrocodon Univers -acetaminop 3-24 e 10 ity of hen 10-325 13:15: mg-acetami [place] mg tablet 54 nophen 325 Medi owen mg tablet Branch Cholecalcif Yes Vitamin D3 Univers geoffrey, 3-24 10 mcg ity of Vitamin D3, 13:15: (400 unit) [place] 10 mcg (400 54 capsule Medic al unit) Take by Branch capsule oral route. metFORMIN Yes metformin Uni vers 500 mg 3-24 500 mg ity of tablet 13:15: tablet [address] aspirin 81 Yes aspirin 81 U nivers mg EC 3-24 mg ity of tablet 13:15: tablet,del [place] [address] ayed Medical release Branch Take 1 tablet every day by oral route. carvediloL Yes Coreg 25 Uni vers (COREG) 25 3-24 mg tablet ity of mg tablet 13:15: Take 1 [place] [address] tablet Medical twice a Branch day by oral route. simvastatin Yes simvastati Univers 20 mg 3-24 n 20 mg ity of tablet 13:15: tablet [address] traZODone Yes trazodone Uni vers 50 mg 3-24 50 mg ity of tablet 13:15: tablet [address] desvenlafax Yes Univer s ine 3-24 ity of succinate 13:15: [place] (PRISTIQ) Medical 25 mg Tb24 Branch QUEtiapine Yes Seroquel Uni vers (SEROQUEL) 3-24 200 mg ity of 200 mg 13:15: tablet [place] tablet Take 1 Medical tablet Branch twice a day by oral route. levothyroxi Yes levothyrox Univers ne 50 mcg 3-24 ine 50 mcg ity of tablet 13:15: tablet [address] aspirin 81 Yes 81mg Take 81 mg U nivers mg chewable 3-24 by mouth ity of tablet 13:15: daily. [address] desvenlafax Yes 1{tbl} Take 1 Un fernanda ine 3-24 tablet by ity of succinate 13:15: mouth [place] (PRISTIQ) 54 daily. Medical 25 mg Tb24 Branch HYDROcodone Yes hydrocodon Univers -acetaminop 3-24 e 10 ity of hen 10-325 13:15: mg-acetami [place] mg tablet 54 nophen 325 Medi owen mg tablet Branch Cholecalcif Yes Vitamin D3 Univers geoffrey, 3-24 10 mcg ity of Vitamin D3, 13:15: (400 unit) [place] 10 mcg (400 54 capsule Medic al unit) Take by Branch capsule oral route. metFORMIN Yes metformin Uni vers 500 mg 3-24 500 mg ity of tablet 13:15: tablet [address] aspirin 81 Yes aspirin 81 U nivers mg EC 3-24 mg ity of tablet 13:15: tablet,del [place] [address] ayed Medical release Branch Take 1 tablet every day by oral route. carvediloL Yes Coreg 25 Uni vers (COREG) 25 3-24 mg tablet ity of mg tablet 13:15: Take 1 [place] [address] tablet Medical twice a Branch day by oral route. simvastatin Yes simvastati Univers 20 mg 3-24 n 20 mg ity of tablet 13:15: tablet [address] traZODone Yes trazodone Uni vers 50 mg 3-24 50 mg ity of tablet 13:15: tablet [address] desvenlafax Yes Univer s ine 3-24 ity of succinate 13:15: [place] [facility] 25 mg Tb24 Branch QUEtiapine Yes Seroquel Uni vers (SEROQUEL) 3-24 200 mg ity of 200 mg 13:15: tablet [facility] 54 Take 1 Medical tablet [place] twice a day by oral route. levothyroxi Yes levothyrox Univers ne 50 mcg 3-24 ine 50 mcg ity of tablet 13:15: tablet [address] aspirin 81 Yes 81mg Take 81 mg U nivers mg chewable 3-24 by mouth ity of tablet 13:15: daily. [address] desvenlafax Yes 1{tbl} Take 1 Un fernanda ine 3-24 tablet by ity of succinate 13:15: mouth [place] (PRISTIQ) 54 daily. Medical 25 mg Tb24 Branch HYDROcodone Yes hydrocodon Univers -acetaminop 3-24 e 10 ity of hen 10-325 13:15: mg-acetami [place] mg tablet 54 nophen 325 Medi owen mg tablet Branch Cholecalcif Yes Vitamin D3 Univers geoffrey, 3-24 10 mcg ity of Vitamin D3, 13:15: (400 unit) [place] 10 mcg (400 54 capsule Medic al unit) Take by Branch capsule oral route. metFORMIN Yes metformin Uni vers 500 mg 3-24 500 mg ity of tablet 13:15: tablet [address] aspirin 81 Yes aspirin 81 U nivers mg EC 3-24 mg ity of tablet 13:15: tablet,del [place] [address] ayed Medical release Branch Take 1 tablet every day by oral route. carvediloL Yes Coreg 25 Uni vers (COREG) 25 3-24 mg tablet ity of mg tablet 13:15: Take 1 [place] [address] tablet Medical twice a Branch day by oral route. simvastatin Yes simvastati Univers 20 mg 3-24 n 20 mg ity of tablet 13:15: tablet [address] traZODone Yes trazodone Uni vers 50 mg 3-24 50 mg ity of tablet 13:15: tablet [address] desvenlafax Yes Univer s ine 3-24 ity of succinate 13:15: [place] (PRISTIQ) Medical 25 mg Tb24 Branch QUEtiapine Yes Seroquel Uni vers (SEROQUEL) 3-24 200 mg ity of 200 mg 13:15: tablet [place] tablet 54 Take 1 Medical tablet Branch twice a day by oral route. levothyroxi Yes levothyrox Univers ne 50 mcg 3-24 ine 50 mcg ity of tablet 13:15: tablet [address] aspirin 81 Yes 81mg Take 81 mg U nivers mg chewable 3-24 by mouth ity of tablet 13:15: daily. [address] desvenlafax Yes 1{tbl} Take 1 Un fernanda ine 3-24 tablet by ity of succinate 13:15: mouth [place] (PRISTIQ) 54 daily. Medical 25 mg Tb24 Branch HYDROcodone Yes hydrocodon Univers -acetaminop 3-24 e 10 ity of hen 10-325 13:15: mg-acetami [place] mg tablet 54 nophen 325 Medi owen mg tablet Branch Cholecalcif Yes Vitamin D3 Univers geoffrey, 3-24 10 mcg ity of Vitamin D3, 13:15: (400 unit) [place] 10 mcg (400 54 capsule Medic al unit) Take by Branch capsule oral route. metFORMIN Yes metformin Uni vers 500 mg 3-24 500 mg ity of tablet 13:15: tablet [address] aspirin 81 Yes aspirin 81 U nivers mg EC 3-24 mg ity of tablet 13:15: tablet,del [place] [address] ayed Medical release Branch Take 1 tablet every day by oral route. carvediloL Yes Coreg 25 Uni vers (COREG) 25 3-24 mg tablet ity of mg tablet 13:15: Take 1 [place] [address] tablet Medical twice a Branch day by oral route. simvastatin Yes simvastati Univers 20 mg 3-24 n 20 mg ity of tablet 13:15: tablet [address] traZODone Yes trazodone Uni vers 50 mg 3-24 50 mg ity of tablet 13:15: tablet [address] desvenlafax Yes Univer s ine 3-24 ity of succinate 13:15: [place] [facility] Medical 25 mg Tb24 Branch QUEtiapine Yes Seroquel Uni vers (SEROQUEL) 3-24 200 mg ity of 200 mg 13:15: tablet [place] tablet 54 Take 1 Medical tablet Branch twice a day by oral route. levothyroxi Yes levothyrox Univers ne 50 mcg 3-24 ine 50 mcg ity of tablet 13:15: tablet [address] aspirin 81 Yes 81mg Take 81 mg U nivers mg chewable 3-24 by mouth ity of tablet 13:15: daily. [address] desvenlafax Yes 1{tbl} Take 1 Un fernanda ine 3-24 tablet by ity of succinate 13:15: mouth [place] (PRISTIQ) 54 daily. Medical 25 mg Tb24 Branch HYDROcodone Yes hydrocodon Univers -acetaminop 3-24 e 10 ity of hen 10-325 13:15: mg-acetami [place] mg tablet 54 nophen 325 Medi owen mg tablet Branch Cholecalcif Yes Vitamin D3 Univers geoffrey, 3-24 10 mcg ity of Vitamin D3, 13:15: (400 unit) [place] 10 mcg (400 54 capsule Medic al unit) Take by Branch capsule oral route. metFORMIN Yes metformin Uni vers 500 mg 3-24 500 mg ity of tablet 13:15: tablet [address] Branch aspirin 81 Yes aspirin 81 U nivers mg EC 3-24 mg ity of tablet 13:15: tablet,del [place] 54 ayed Medical release Branch Take 1 tablet every day by oral route. carvediloL Yes Coreg 25 Uni vers (COREG) 25 3-24 mg tablet ity of mg tablet 13:15: Take 1 [place] [address] tablet Medical twice a Branch day by oral route. simvastatin Yes simvastati Univers 20 mg 3-24 n 20 mg ity of tablet 13:15: tablet [address] traZODone Yes trazodone Uni vers 50 mg 3-24 50 mg ity of tablet 13:15: tablet [address] desvenlafax Yes Univer s ine 3-24 ity of succinate 13:15: [place] (PRISTIQ) Medical 25 mg Tb24 Branch QUEtiapine Yes Seroquel Uni vers (SEROQUEL) 3-24 200 mg ity of 200 mg 13:15: tablet [place] tablet 54 Take 1 Medical tablet Branch twice a day by oral route. levothyroxi Yes levothyrox Univers ne 50 mcg 3-24 ine 50 mcg ity of tablet 13:15: tablet [address] metFORMIN Yes 500mg Take 1 Unive rs 500 mg 2-24 tablet by ity of tablet 00:00: mouth [place] 00 every Medical evening. Branch metFORMIN Yes 500mg Take 1 Unive rs 500 mg 2-24 tablet by ity of tablet 00:00: mouth [place] 00 every Medical evening. Branch metFORMIN 2-0 Yes 500mg Take 1 Unive rs 500 mg 2-24 tablet by ity of tablet 00:00: mouth [place] 00 every Medical evening. Branch metFORMIN 2-0 Yes 500mg Take 1 Unive rs 500 mg 2-24 tablet by ity of tablet 00:00: mouth [place] 00 every Medical evening. Branch metFORMIN 2-0 Yes 500mg Take 1 Unive rs 500 mg 2-24 tablet by ity of tablet 00:00: mouth [place] 00 every Medical evening. Branch metFORMIN 2-0 Yes 500mg Take 1 Unive rs 500 mg 2-24 tablet by ity of tablet 00:00: mouth [place] 00 every Medical evening. Branch Metformin 2021-0 Yes metformin Zak sey HCl 500 MG 2-24 500 mg [place] oral Tablet 00:00: tablet 00 hydrOXYzine 2021-0 Yes [id number] 25mg Take 1 Univers 25 mg 1-29 tablet by ity of tablet 00:00: mouth [place] 00 every 6 Medical (six) Branch hours as needed for Itching or Anxiety. methylPREDN 2022-0 Yes [id number] Take by Univers ISolone 1-29 mouth ity of (MEDROL, 00:00: SEE-INSTRU [place] MIRACLE,) 4 mg 00 CTIONS. Medica l tablets follow Branch package directions hydrOXYzine 2021-0 Yes [id number] 25mg Take 1 Univers 25 mg 1-29 tablet by ity of tablet 00:00: mouth [place] 00 every 6 Medical (six) Branch hours as needed for Itching or Anxiety. methylPREDN 2022-0 Yes [id number] Take by Univers ISolone 1-29 mouth ity of (MEDROL, 00:00: SEE-INSTRU [place] MIRACLE,) 4 mg 00 CTIONS. Medica l tablets follow Branch package directions hydrOXYzine 2-0 Yes [id number] 25mg Take 1 Univers 25 mg 1-29 tablet by ity of tablet 00:00: mouth [place] 00 every 6 Medical (six) Branch hours as needed for Itching or Anxiety. methylPREDN 2022-0 Yes [id number] Take by Univers ISolone 1-29 mouth ity of (MEDROL, 00:00: SEE-INSTRU [place] MIRACLE,) 4 mg 00 CTIONS. Medica l tablets follow Branch package directions hydrOXYzine 2021-0 Yes [id number] 25mg Take 1 Univers 25 mg 1-29 tablet by ity of tablet 00:00: mouth [place] 00 every 6 Medical (six) Branch hours as needed for Itching or Anxiety. methylPREDN 2021-0 Yes [id number] Take by Univers ISolone 1-29 mouth ity of (MEDROL, 00:00: SEE-INSTRU [place] MIRACLE,) 4 mg 00 CTIONS. Medica l tablets follow Branch package directions hydrOXYzine 0 Yes [id number] 25mg Take 1 Univers 25 mg 1-29 tablet by ity of tablet 00:00: mouth [place] 00 every 6 Medical (six) Branch hours as needed for Itching or Anxiety. methylPREDN 2021-0 Yes [id number] Take by Univers ISolone 1-29 mouth ity of (MEDROL, 00:00: SEE-INSTRU [place] MIRACLE,) 4 mg 00 CTIONS. Medica l tablets follow Branch package directions hydrOXYzine 0 Yes [id number] 25mg Take 1 Univers 25 mg 1-29 tablet by ity of tablet 00:00: mouth [place] 00 every 6 Medical (six) Branch hours as needed for Itching or Anxiety. methylPREDN 2021-0 Yes [id number] Take by Univers ISolone 1-29 mouth ity of (MEDROL, 00:00: SEE-INSTRU [place] MIRACLE,) 4 mg 00 CTIONS. Medica l tablets follow Branch package directions acetaminoph Yes TAKE 2 Univ ers en-codeine 1-18 TABLETS BY ity of 300-30 mg 00:00: MOUTH [place] tablet 00 EVERY 6 Medical HOURS Branch NEEDED FOR PAIN ciprofloxac Yes TAKE ONE Un fernanda in HCl 500 1-18 TABLET BY ity of mg tablet 00:00: MOUTH [place] 00 EVERY 12 Medical HOURS Branch UNTIL ALL TAKEN metroNIDAZO Yes TAKE 1 Univ ers LE 500 mg 1-18 TABLET BY ity o f tablet 00:00: MOUTH [place] 00 EVERY 8 Medical HOURS Branch UNTIL ALL TAKEN fluconazole Yes 150mg Take 150 U nivers 150 mg 1-18 mg by ity of tablet 00:00: mouth [place] 00 daily. Medical Branch acetaminoph Yes TAKE 2 Univ ers en-codeine 1-18 TABLETS BY ity of 300-30 mg 00:00: MOUTH [place] tablet 00 EVERY 6 Medical HOURS Branch NEEDED FOR PAIN ciprofloxac Yes TAKE ONE Un fernanda in HCl 500 1-18 TABLET BY ity of mg tablet 00:00: MOUTH [place] 00 EVERY 12 Medical HOURS Branch UNTIL ALL TAKEN metroNIDAZO Yes TAKE 1 Univ ers LE 500 mg 1-18 TABLET BY ity o f tablet 00:00: MOUTH [place] 00 EVERY 8 Medical HOURS Branch UNTIL ALL TAKEN fluconazole 0 Yes 150mg Take 150 U nivers 150 mg 1-18 mg by ity of tablet 00:00: mouth [place] 00 daily. Medical Branch acetaminoph Yes TAKE 2 Univ ers en-codeine 1-18 TABLETS BY ity of 300-30 mg 00:00: MOUTH [place] tablet 00 EVERY 6 Medical HOURS Branch NEEDED FOR PAIN ciprofloxac Yes TAKE ONE Un fernanda in HCl 500 1-18 TABLET BY ity of mg tablet 00:00: MOUTH [place] 00 EVERY 12 Medical HOURS Branch UNTIL ALL TAKEN metroNIDAZO 0 Yes TAKE 1 Univ ers LE 500 mg 1-18 TABLET BY ity o f tablet 00:00: MOUTH [place] 00 EVERY 8 Medical HOURS Branch UNTIL ALL TAKEN fluconazole 0 Yes 150mg Take 150 U nivers 150 mg 1-18 mg by ity of tablet 00:00: mouth [place] 00 daily. Medical Branch acetaminoph Yes TAKE 2 Univ ers en-codeine 1-18 TABLETS BY ity of 300-30 mg 00:00: MOUTH [place] tablet 00 EVERY 6 Medical HOURS Branch NEEDED FOR PAIN ciprofloxac Yes TAKE ONE Un fernanda in HCl 500 1-18 TABLET BY ity of mg tablet 00:00: MOUTH [place] 00 EVERY 12 Medical HOURS Branch UNTIL ALL TAKEN metroNIDAZO Yes TAKE 1 Univ ers LE 500 mg 1-18 TABLET BY ity o f tablet 00:00: MOUTH [place] 00 EVERY 8 Medical HOURS Branch UNTIL ALL TAKEN fluconazole 2021-0 Yes 150mg Take 150 U nivers 150 mg 1-18 mg by ity of tablet 00:00: mouth [place] 00 daily. Medical Branch acetaminoph Yes TAKE 2 Univ ers en-codeine 1-18 TABLETS BY ity of 300-30 mg 00:00: MOUTH [place] tablet 00 EVERY 6 Medical HOURS Branch NEEDED FOR PAIN ciprofloxac Yes TAKE ONE Un fernanda in HCl 500 1-18 TABLET BY ity of mg tablet 00:00: MOUTH [place] 00 EVERY 12 Medical HOURS Branch UNTIL ALL TAKEN metroNIDAZO Yes TAKE 1 Univ ers LE 500 mg 1-18 TABLET BY ity o f tablet 00:00: MOUTH [place] 00 EVERY 8 Medical HOURS Branch UNTIL ALL TAKEN fluconazole Yes 150mg Take 150 U nivers 150 mg 1-18 mg by ity of tablet 00:00: mouth [place] 00 daily. Medical Branch acetaminoph Yes TAKE 2 Univ ers en-codeine 1-18 TABLETS BY ity of 300-30 mg 00:00: MOUTH [place] tablet 00 EVERY 6 Medical HOURS Branch NEEDED FOR PAIN ciprofloxac Yes TAKE ONE Un fernanda in HCl 500 1-18 TABLET BY ity of mg tablet 00:00: MOUTH [place] 00 EVERY 12 Medical HOURS Branch UNTIL ALL TAKEN metroNIDAZO Yes TAKE 1 Univ ers LE 500 mg 1-18 TABLET BY ity o f tablet 00:00: MOUTH [place] 00 EVERY 8 Medical HOURS Branch UNTIL ALL TAKEN fluconazole Yes 150mg Take 150 U nivers 150 mg 1-18 mg by ity of tablet 00:00: mouth [place] 00 daily. Medical Branch levothyroxi Yes [id number] 125ug Take 1 Univers ne 125 mcg 1-12 tablet by ity of tablet 00:00: mouth [place] 00 every Medical morning. Branch simvastatin Yes [id number] 20mg Take 1 Univers 20 mg 1-12 tablet by ity of tablet 00:00: mouth at [place] 00 bedtime. Medical Branch Insulin Yes [id number] 15U inject 15 Univers Glargine 1-12 Units ity of 100 unit/mL 00:00: under the [place] (3 mL) 00 skin daily Medical injection before Branch breakfast. levothyroxi Yes [id number] 125ug Take 1 Univers ne 125 mcg 1-12 tablet by ity of tablet 00:00: mouth [place] 00 every Medical morning. Branch simvastatin Yes [id number] 20mg Take 1 Univers 20 mg 1-12 tablet by ity of tablet 00:00: mouth at [place] 00 bedtime. Medical [place] Insulin 2021-0 Yes [id number] 15U inject 15 Univers Glargine 1-12 Units ity of 100 unit/mL 00:00: under the [place] (3 mL) 00 skin daily Medical injection before [place] breakfast. levothyroxi 2021-0 Yes [id number] 125ug Take 1 Univers ne 125 mcg 1-12 tablet by ity of tablet 00:00: mouth [place] 00 every Medical morning. Branch simvastatin 2021-0 Yes [id number] 20mg Take 1 Univers 20 mg 1-12 tablet by ity of tablet 00:00: mouth at [place] 00 bedtime. Medical [place] Insulin 2021-0 Yes [id number] 15U inject 15 Univers Glargine 1-12 Units ity of 100 unit/mL 00:00: under the [place] (3 mL) 00 skin daily Medical injection before [place] breakfast. levothyroxi 2021-0 Yes [id number] 125ug Take 1 Univers ne 125 mcg 1-12 tablet by ity of tablet 00:00: mouth [place] 00 every Medical morning. Branch simvastatin 2021-0 Yes [id number] 20mg Take 1 Univers 20 mg 1-12 tablet by ity of tablet 00:00: mouth at [place] 00 bedtime. Medical [place] Insulin 2021-0 Yes [id number] 15U inject 15 Univers Glargine 1-12 Units ity of 100 unit/mL 00:00: under the [place] (3 mL) 00 skin daily Medical injection before [place] breakfast. levothyroxi 2021-0 Yes [id number] 125ug Take 1 Univers ne 125 mcg 1-12 tablet by ity of tablet 00:00: mouth [place] 00 every Medical morning. Branch simvastatin 2021-0 Yes [id number] 20mg Take 1 Univers 20 mg 1-12 tablet by ity of tablet 00:00: mouth at [place] 00 bedtime. Medical [place] Insulin 2021-0 Yes [id number] 15U inject 15 Univers Glargine 1-12 Units ity of 100 unit/mL 00:00: under the [place] (3 mL) 00 skin daily Medical injection before [place] breakfast. levothyroxi 2021-0 Yes [id number] 125ug Take 1 Univers ne 125 mcg 1-12 tablet by ity of tablet 00:00: mouth [place] 00 every Medical morning. [place] simvastatin Yes [id number] 20mg Take 1 Univers 20 mg 1-12 tablet by ity of tablet 00:00: mouth at [place] 00 bedtime. Medical Branch Insulin Yes [id number] 15U inject 15 Univers Glargine 1-12 Units ity of 100 unit/mL 00:00: under the [place] (3 mL) 00 skin daily Medical injection before Branch breakfast. Levothyroxi Yes 1{tbl} Take 1 [place] ne Sodium 1-12 tablet by Seybo ld 125 MCG 00:00: mouth oral Tablet 00 every 24 hours Simvastatin Yes simvastati Reema 20 MG oral 1-12 n 20 mg Seybol d Tablet 00:00: tablet 00 methocarbam 2020-10 Yes [id number] 500mg Take 1 Univers oL 2-24 tablet by ity of (ROBAXIN) 00:00: mouth 4 [place] 500 mg 00 (four) Medical tablet times Branch daily. phenazopyri 2020-10 Yes [id number] 200mg Take 2 Univers dine 100 mg 2-24 tablets by it y of tablet 00:00: mouth 3 00 (three) Medical times Branch daily. methocarbam 2020-10 Yes [id number] 500mg Take 1 Univers oL 2-24 tablet by ity of (ROBAXIN) 00:00: mouth 4 [place] 500 mg 00 (four) Medical tablet times Branch daily. phenazopyri 2020-10 Yes [id number] 200mg Take 2 Univers dine 100 mg 2-24 tablets by it y of tablet 00:00: mouth 3 [place] 00 (three) Medical times Branch daily. methocarbam 2020-10 Yes [id number] 500mg Take 1 Univers oL 2-24 tablet by ity of (ROBAXIN) 00:00: mouth 4 [place] 500 mg 00 (four) Medical tablet times Branch daily. phenazopyri 2020-10 Yes [id number] 200mg Take 2 Univers dine 100 mg 2-24 tablets by it y of tablet 00:00: mouth 3 [place] 00 (three) Medical times Branch daily. methocarbam 2020-10 Yes [id number] 500mg Take 1 Univers oL 2-24 tablet by ity of (ROBAXIN) 00:00: mouth 4 [place] 500 mg 00 (four) Medical tablet times Branch daily. phenazopyri 2020-10 Yes [id number] 200mg Take 2 Univers dine 100 mg 2-24 tablets by it y of tablet 00:00: mouth 3 (three) Medical times Branch daily. methocarbam 2020-10 Yes [id number] 500mg Take 1 Univers oL 2-24 tablet by ity of (ROBAXIN) 00:00: mouth 4 [place] 500 mg 00 (four) Medical tablet times Branch daily. phenazopyri 2020-10 Yes [id number] 200mg Take 2 Univers dine 100 mg 2-24 tablets by it y of tablet 00:00: mouth 3 00 (three) Medical times Branch daily. methocarbam 2020-10 Yes [id number] 500mg Take 1 Univers oL 2-24 tablet by ity of (ROBAXIN) 00:00: mouth 4 [place] 500 mg 00 (four) Medical tablet times Branch daily. phenazopyri 2020-10 Yes [id number] 200mg Take 2 Univers dine 100 mg 2-24 tablets by it y of tablet 00:00: mouth 3 (three) Medical times Branch daily. carvediloL 2020-10 Yes [id number] 25mg Take 1 U nivers 25 mg 1-16 tablet by ity of tablet 00:00: mouth 2 (two) Medical times Branch daily. carvediloL 2020-10 Yes [id number] 25mg Take 1 U nivers 25 mg 1-16 tablet by ity of tablet 00:00: mouth 2 (two) Medical times Branch daily. carvediloL 2020-10 Yes [id number] 25mg Take 1 U nivers 25 mg 1-16 tablet by ity of tablet 00:00: mouth 2 (two) Medical times Branch daily. carvediloL 2020-10 Yes [id number] 25mg Take 1 U nivers 25 mg 1-16 tablet by ity of tablet 00:00: mouth 2 (two) Medical times Branch daily. carvediloL 2020-10 Yes [id number] 25mg Take 1 U nivers 25 mg 1-16 tablet by ity of tablet 00:00: mouth 2 (two) Medical times Branch daily. carvediloL 2020-10 Yes [id number] 25mg Take 1 U nivers 25 mg 1-16 tablet by ity of tablet 00:00: mouth 2 [place] 00 (two) Medical times Branch daily. clobetasoL 2020-1 Yes [id number] Apply to Univers 0.05 % 0-05 area(s) 2 ity of ointment 00:00: (two) [place] times Medical daily. Branch clobetasoL 2020-1 Yes [id number] Apply to Univers 0.05 % 0-05 area(s) 2 ity of ointment 00:00: (two) [place] times Medical daily. Branch clobetasoL 2020-1 Yes [id number] Apply to Univers 0.05 % 0-05 area(s) 2 ity of ointment 00:00: (two) [place] times Medical daily. Branch clobetasoL 2020- Yes [id number] Apply to Univers 0.05 % 0-05 area(s) 2 ity of ointment 00:00: (two) [place] times Medical daily. Branch clobetasoL 2020-1 Yes [id number] Apply to Univers 0.05 % 0-05 area(s) 2 ity of ointment 00:00: (two) [place] times Medical daily. Branch clobetasoL 2020- Yes [id number] Apply to Univers 0.05 % 0-05 area(s) 2 ity of ointment 00:00: (two) [place] times Medical daily. Branch OMEPRAZOLE 1-0 Yes [id number] TAKE ONE Univers 40 mg 9-30 CAPSULE BY ity of capsule 00:00: MOUTH [place] DAILY Medical Branch OMEPRAZOLE 1-0 Yes [id number] TAKE ONE Univers 40 mg 9-30 CAPSULE BY ity of capsule 00:00: MOUTH [place] DAILY Medical Branch OMEPRAZOLE 2021-0 Yes [id number] TAKE ONE Univers 40 mg 9-30 CAPSULE BY ity of capsule 00:00: MOUTH [place] DAILY Medical Branch OMEPRAZOLE 1-0 Yes [id number] TAKE ONE Univers 40 mg 9-30 CAPSULE BY ity of capsule 00:00: MOUTH [place] DAILY Medical Branch OMEPRAZOLE 2021-0 Yes [id number] TAKE ONE Univers 40 mg 9-30 CAPSULE BY ity of capsule 00:00: MOUTH [place] DAILY Medical Branch OMEPRAZOLE 1-0 Yes [id number] TAKE ONE Univers 40 mg 9-30 CAPSULE BY ity of capsule 00:00: MOUTH [place] 00 DAILY Medical Branch blood sugar 2020-0 Yes [id number] 1{strip 1 Strip Univers diagnostic 5-24 } before ity of (BLOOD 00:00: meals and [place] GLUCOSE 00 at Medical TEST) strip bedtime. Bran ch Check glucose once daily before breakfast; Diagnosis code R73.03 blood sugar 2020-0 Yes [id number] 1{strip 1 Strip Univers diagnostic 5-24 } before ity of (BLOOD 00:00: meals and [place] GLUCOSE 00 at Medical TEST) strip bedtime. Bran ch Check glucose once daily before breakfast; Diagnosis code R73.03 blood sugar 2020-0 Yes [id number] 1{strip 1 Strip Univers diagnostic 5-24 } before ity of (BLOOD 00:00: meals and [place] GLUCOSE 00 at Medical TEST) strip bedtime. Bran ch Check glucose once daily before breakfast; Diagnosis code R73.03 blood sugar 2020-0 Yes [id number] 1{strip 1 Strip Univers diagnostic 5-24 } before ity of (BLOOD 00:00: meals and [place] GLUCOSE 00 at Medical TEST) strip bedtime. Bran ch Check glucose once daily before breakfast; Diagnosis code R73.03 blood sugar 2020-0 Yes [id number] 1{strip 1 Strip Univers diagnostic 5-24 } before ity of (BLOOD 00:00: meals and [place] GLUCOSE 00 at Medical TEST) strip bedtime. Bran ch Check glucose once daily before breakfast; Diagnosis code R73.03 blood sugar 2020-0 Yes [id number] 1{strip 1 Strip Univers diagnostic 5-24 } before ity of (BLOOD 00:00: meals and [place] GLUCOSE 00 at Medical TEST) strip bedtime. Bran ch Check glucose once daily before breakfast; Diagnosis code R73.03 Blood-Gluco 2020-0 Yes [id number] Check U nivers se Meter 4-20 glucose ity of Kit 00:00: once daily [place] 00 before Medical breakfast; Branch Diagnosis code R73.03 Blood-Gluco 2020-0 Yes [id number] Check U nivers se Meter 4-20 glucose ity of Kit 00:00: once daily [place] 00 before Medical breakfast; Branch Diagnosis code R73.03 Blood-Gluco 2020-0 Yes [id number] Check U nivers se Meter 4-20 glucose ity of Kit 00:00: once daily [place] 00 before Medical breakfast; Branch Diagnosis code R73.03 Blood-Gluco 2020-0 Yes [id number] Check U nivers se Meter 4-20 glucose ity of Kit 00:00: once daily [place] 00 before Medical breakfast; Branch Diagnosis code R73.03 Blood-Gluco 2020-0 Yes [id number] Check U nivers se Meter 4-20 glucose ity of Kit 00:00: once daily [place] 00 before Medical breakfast; Branch Diagnosis code R73.03 Blood-Gluco 2020-0 Yes [id number] Check U nivers se Meter 4-20 glucose ity of Kit 00:00: once daily [place] 00 before Medical breakfast; Branch Diagnosis code R73.03 Lancets 2019-1 Yes [id number] Check Univ ers Misc 1-18 glucose ity of 00:00: once daily [place] 00 before Medical breakfast; Branch Diagnosis code R73.03 Lancets 2019-1 Yes [id number] Check Univ ers Misc 1-18 glucose ity of 00:00: once daily [place] 00 before Medical breakfast; Branch Diagnosis code R73.03 Lancets 2019-1 Yes [id number] Check Univ ers Misc 1-18 glucose ity of 00:00: once daily [place] 00 before Medical breakfast; Branch Diagnosis code R73.03 Lancets 2019-1 Yes [id number] Check Univ ers Misc 1-18 glucose ity of 00:00: once daily [place] 00 before Medical breakfast; Branch Diagnosis code R73.03 Lancets 2019-1 Yes [id number] Check Univ ers Misc 1-18 glucose ity of 00:00: once daily [place] 00 before Medical breakfast; Branch Diagnosis code R73.03 Lancets 2019-1 Yes [id number] Check Univ ers Misc 1-18 glucose ity of 00:00: once daily [place] 00 before Medical breakfast; Branch Diagnosis code R73.03 QUEtiapine 2019-0 Yes Univers 300 mg 1-10 ity of tablet 00:00: [place] 00 Medical Branch QUEtiapine 2019-0 Yes Univers 300 mg 1-10 ity of tablet 00:00: [place] 00 Medical Branch QUEtiapine 2019-0 Yes Univers 300 mg 1-10 ity of tablet 00:00: [place] 00 Medical Branch QUEtiapine 2019-0 Yes Univers 300 mg 1-10 ity of tablet 00:00: [place] 00 Medical Branch QUEtiapine 2019-0 Yes Univers 300 mg 1-10 ity of tablet 00:00: [address] QUEtiapine 2019-0 Yes Univers 300 mg 1-10 ity of tablet 00:00: [address] Vital Signs Vital Name Observation Time Observation Value Comments Source Systolic blood 2022-01-28 18:35:00 127 mm[Hg] Reema ybce pressure Diastolic blood 2022-01-28 18:35:00 76 mm[Hg] Kelse y Seybold pressure Heart rate 2022-01-28 18:35:00 72 /min Reema Coleman eybold Body temperature 2022-01-28 18:35:00 36.61 Lynette Kaykay saini Seybold Respiratory rate 2022-01-28 18:35:00 14 /min Kaykay saini Seybce Body height 2022-01-28 18:35:00 162.6 cm Reema sainiboeaston Body weight 2022-01-28 18:35:00 101.152 kg Reema sainibold BMI 2022-01-28 18:35:00 38.28 kg/m2 Reema saiinboeaston Systolic blood 2022-01-08 17:28:00 127 mm[Hg] Univer sity of [facility] Diastolic blood 2022-01-08 17:28:00 84 mm[Hg] Unive rsity of [facility] Heart rate 2022-01-08 17:28:00 82 /min [facility] Body temperature 2022-01-08 17:28:00 36.83 Lynette [facility] Respiratory rate 2022-01-08 17:28:00 17 /min [facility] Body height 2022-01-08 17:28:00 162.6 cm [facility] Body weight 2022-01-08 17:28:00 97.977 kg [facility] BMI 2022-01-08 17:28:00 37.08 kg/m2 [facility] Oxygen saturation in 2022-01-08 17:28:00 98 /min [facility] Arterial blood by [facility] [place] [facility] Pulse oximetry Branch Systolic blood 2022-01-02 18:12:00 133 mm[Hg] Univer sity of pressure [facility] Diastolic blood 2022-01-02 18:12:00 87 mm[Hg] Unive rsity [facility] Heart rate 2022-01-02 18:12:00 80 /min [facility] Body temperature 2022-01-02 18:12:00 36.72 [facility]ette [facility] height 2022-01-02 18:12:00 162.6 cm [facility] Body weight 2022-01-02 18:12:00 97.523 kg [facility] BMI 2022-01-02 18:12:00 36.90 kg/m2 [facility] Procedures Procedure Date / Time Performed Performing Clinician [facility] e FSH-Q 2022-01-29 19:37:00 Jarvis [facility] ESTRADIOL-Q 2022-01-29 19:37:00 Simona [facility] POCT MOLECULAR FLU 2022-01-08 17:37:00 Shena [facility] Encounters Start End Encounter Admission Attending Care Care Encounter Source Date/Time Date/Time Type Type Clinicians Facility Department ID 2022-01-10 Outpatient WILBUR RICHARDSONTN [id number] [place] 13:15:51 [id number] CULL[place] 2022-01-08 Outpatient BAYTN DYLANTN [id number] [place] 12:03:37 [id number] [place] 2022-04-09 2022-04-09 Outpatient ARUN MERCER [id number] [place] 14:30:00 14:30:00 Asaf mejias 2022-02-19 2022-02-19 Outpatient Jose Francisco JARVIS [facility] [id number] Univers 14:20:00 14:20:00 PAT [id number] [facility] 2022-02-18 2022-02-18 Outpatient Jose Francisco DOMINGUEZ [facility] [id number] Univers 13:30:00 13:30:00 ARTHUR [facility] 2022-02-12 2022-02-12 Outpatient REEMA FOSTER [id number] [place] 14:00:00 14:00:00 FABIAN mejias 2022-02-11 2022-02-11 Outpatient REEMA FOSTER [id number] [place] 00:00:00 00:00:00 FABIAN Cassidyol magalie 2022-02-07 2022-02-07 Outpatient REEMA FOSTER [id number] [place] 00:00:00 00:00:00 FABIAN Cassidyol magalie 2022-01-29 2022-01-29 Outpatient REEMA FOSTER [id number] [place] 00:00:00 00:00:00 FABIAN Cassidyol magalie 2022-01-29 2022-01-29 Orders LINDA Jarvis [id number] Univers 00:00:00 00:00:00 Only Pat ABBOTT 350.1.13.10 it y of HOSPITAL 4.2.7.2.686 [place] as [id number] [address] 2022-01-28 2022-01-28 Outpatient LAB90 REEMA BENAVIDEZ [id number] [place] 14:25:00 14:25:00 Asaf mejias 2022-01-28 2022-01-28 Office Neo FOSTER 1.2.840.114 [id number] Reema 13:30:00 13:30:00 Visit FABIAN Cavanaugh 350.1.13.13 Se torrez 1Juwan.7.2.686 [id number] 2022-01-27 2022-01-27 Outpatient R GATITO [facility] [id number] Univers 13:00:00 13:00:00 LISSETTE [id number] neela [facility] 2022-01-27 2022-01-27 Outpatient Jose Francisco MEDEROS [facility] [id number] Univers 13:00:00 13:00:00 LISSETTE taylor [facility] 2022-01-21 2022-01-21 Refill Simona MTGERARDO 1.2.840.114 [id number] Univers 00:00:00 00:00:00 Pattaylor ROBLERO 350.1.13.10 [place] [id number] [facility] 095 Branch OFFICE BUILDING 2022-01-10 2022-01-10 Telephone Leon [facility] 1.2.840.114 [id number] Univers 00:00:00 00:00:00 Wondiful A HEALTH 350.1.13.10 ity of [place] 4.2.7.2.686 Anton as DIANN?BLEA [id number] Ut logan [facility] [address] [place] MEDICAL OFFICE BUILDING 2022-01-09 2022-01-09 Letter LINDA Campos 1.2.840.114 [id number] Univers 00:00:00 00:00:00 (Out) Kendra Gray MILENA 350.1.13.10 it y of [facility] 4.2.7.2.686 [place] as [id number] [address] 2022-01-08 2022-01-08 Outpatient R NABOR [facility] [id number] Univers 12:40:00 12:48:05 [facility]22-[facility] 2022-01-08 Urgent Nabor Karen [facility] 1.2.840.114 [id number] Univers 12:40:00 12:48:05 Care [facility] 350.1.13.10 ity of [place] 4.2.7.2.686 Anton as DIANN?BLEA [id number] Ut logan [facility] [address] [place] MEDICAL OFFICE BUILDING 2022-01-08 2022-01-08 Outpatient R [facility] [id number] Univers 12:40:00 12:40:00 [id number] [facility] 2022-01-02 2022-01-02 Office [facility] 1.2.840.114 [id number] Univers 13:00:00 14:01:36 Visit [facility] 350.1.13.10 [place].2.[place] [id number] [facility] [address] [place] OFFICE BUILDING 2022-01-02 2022-01-02 Outpatient R SIMONA [facility] [id number] Univers 13:00:00 14:01:36 PAT [facility] 2021-10-23 2021-10-23 Outpatient R ALBERTO [facility] [id number] Univers 12:45:00 13:03:37 [facility] 2021-02-13 2021-02-13 Outpatient R SAMANTHA [facility] [id number] Univers 11:00:00 11:50:[address] [facility] 2021-02-13 2021-02-13 Outpatient R SAMANTHA [facility] [id number] Univers 11:00:00 11:00:[address] [facility] 2021-02-07 2021-02-07 Emergency [facility] [id number] [place] 00:00:00 00:00:[address] 2021-02-07 2021-02-07 Telephone [facility] [id number] 00:00:00 00:00:00 Esther Roblero 350.1.13.10 [place] 4.2.7.2.686 Professio [id number] nal [address] 2021-02-01 2021-02-01 [facility] 1.2.840.114 [id number] 00:00:00 00:00:00 Chrissy ROYPEC 350.1.13.10 Radha PERRY 4.2.7.2.686 YELLOW JACKET [id number] AND RAHUL [facility] 2021-02-01 2021-02-01 Transition Sommer Conway 1.2.840.114 [id number] 00:00:00 00:00:00 of Care Heather Juan 350.1.13.10 [place] 4.2.7.2.686 [id number] 2021-01-29 2021-01-31 [facility] Arcenio Hand 1.2.840.1 [id number] 16:44:00 17:15:00 Encounter Huy Barrera 350.1.13. 10 [facility] 4.2.7.2.686 [id number] 2021-01-29 2021-01-[address] [facility] 1.2.840.114 [id number] 15:27:18 16:23:45 Visit Steve Roblero 350.1.13.10 [place] 4.2.7.2.686 Vinnie [id number] nal 044 Office [address] One Results Test Description Test Time Test Comments Results Result Comments Source FSH-Q 2022-01-30 05:00:00 Test Item Value Reference Range Interpretation Comme nts FSH-Q (test code = mIU/mL ? 30914-6) ?Reference Rang e ? Follicu lar Phase ? ? ? 2.5-10.2 ? Mid-cycle Peak ? 3.1-17.7 ? Luteal Phase ? 1.5- 9.1 ? Postmen opausal ? ? ? 23.0-116.3 ? GASTON (test code = GASTON) PERFORMED BY [employer] [place]; [address] [place] [address]; FESTUS VIEIRA [id number] 05:00:00 Test Item Value Reference Range Interpretation Comments ESTRADIOL-Q <15 pg/mL ? ? ?Reference Range ? (test code = ? ? ?Follicular Phase: 2243-4) ? ?19-144 ?Mid-Cycle: ? 64-357 ?L uteal Phase: ?5 6-214 ?Postmenopa usal: ? ? ?< or = 31 ?Reference rang e established on post-pubertal patientpopulati on. No pre-pubertal re ference rangeestablishe d using this assay. For any patients forwho m low Estradiol level s are anticipated (e. g. males,pre-puber johnny children and hypogonadal/pos t-menopa usal females), the [facility] InstituteEstrad iol, Ultrasensitive, LCMSMS assay is recommended(ord er code 80132). ?Please note: patients being treated with the drug fulvestrant (Faslodex(R)) h ave demonstrated significant interference in immunoassay met hods for estradiol measu rement. The cross react ivity could lead to f alsely elevated estrad iol test results leading to an inappropriate c linical assessment of e strogen status.[facility] ord er code 35482-Vgkbokcby , Ultrasensitive LC/MS/MS demonstrates ne gligible cross reactivit y with fulvestrant. GASTON (test PERFORMED BY [facility] code = GASTON) [facility] [place]; [address] [place] [address]; FESTUS VIEIRA MD [facility] [id number] 17:42:29 Test Item Value Reference Range Interpretation Comments POCT Molecular FluA (test code = Positive Negative A 37101-6) Lab Interpretation (test code = Abnormal 12632-8) [facility]
[2022-02-11] MEDS ORDERED: MORPHINE 4 MG/ML SYR ONE (16:07)
[2022-02-11] MEDS ORDERED: ONDANSETRON 4 MG/2 ML VIAL ONE (16:07)
[2022-02-11] MEDS ORDERED: FAMOTIDINE 20 MG/2 ML VIAL IV ONE (16:08)
[2022-02-11 16:44] LABS: Urine Blood Negative (Negative); Urine Glucose Negative (Negative); Urine Protein Negative (Negative)
[2022-02-11 16:49] LABS: Absolute Lymphocytes (CBC) 1.7 K/uL (0.7-4.9); Hematocrit 43.6 % (36.0-45.0); Lymphocytes % 27.9 % (15.3-44.8); MPV 8.5 fL (7.6-11.3); RBC Red Blood Cell Count 4.78 M/uL (3.86-4.86)
[2022-02-11 17:04] LABS: Bilirubin Total 0.3 mg/dL (0.2-1.0); Potassium 4.1 mmol/L (3.5-5.1); Protein, Total 8.3 g/dL (6.4-8.2)
--- NOTE | 2022-02-11 17:18 | RAD REPORT ---
EXAM DESCRIPTION: US - Abdomen Exam Limited - 02/11/2022 5:13 pm CLINICAL HISTORY: ABD PAIN COMPARISON: Abdomen Pelvis W Contrast dated 10/28/2021 FINDINGS: No gallstones, sludge or other abnormalities within the gallbladder lumen. There is no wal l thickening or pericholecystic fluid. No common duct stone or biliary tree dilatation identified. IMPRESSION: Normal gallbladder and biliary tree ultrasound.
--- NOTE | 2022-02-11 18:59 | RAD REPORT ---
EXAM DESCRIPTION: CT - Abdomen Pelvis W Contrast - 02/11/2022 6:33 pm CLINICAL HISTORY: Epigastric pain COMPARISON: Abdomen Pelvis W Contrast dated 10/28/2021 TECHNIQUE: Biphasic, helical CT imaging of the abdomen and pelvis was performed following 100 ml non -ionic IV contrast. No oral contrast administered. All CT scans are performed using dose optimization technique as appropriate and may include automated exposure control or mA/KV adjustment according to patient size. FINDINGS: No suspicious findings in the lung bases. No cardiomegaly or pericardial effusion. Bilater al breast implants are in place with no acute findings seen. The liver, spleen, and pancreas show no suspicious findings. Gallbladder and biliary tree are also wi thout suspicious finding. Symmetric renal function is seen with no hydronephrosis or suspicious renal mass. Nonobstructing 7 mm and 5 mm sized calculi present lower pole of the left kidney similar to the October study. Areas of cortical thinning on the left are probably from old ischemic or infectious injury. Small renal cysts present and stable. No pyelonephritis or acute parenchymal process. No bladder abnormalities. No adre nal abnormalities. Uterus and ovaries show no suspicious findings. No dilated bowel loops or bowel wall thickening. Retrocecal appendix is normal. No free air, free flu id or inflammatory stranding. No hernia, mass or bulky lymphadenopathy. No suspicious bony findings. IMPRESSION: Contrast enhanced CT abdomen and pelvis showing no acute or emergent finding. Patient has nonobstructing calculi in the lower pole the left kidney similar to October. 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 No significant changes from October.
[2022-02-11] MEDS ORDERED: DIPHENHYDRAMINE 50 MG/ML VIAL ONE (20:05)
[2022-02-11] MEDS ORDERED: NA CHLORIDE 0.9% 250 ML ONE (20:05)
[2022-02-11] MEDS ORDERED: METOCLOPRAMIDE 10 MG/2mL INJ ONE (20:05)
--- NOTE | 2022-02-11 20:48 | EDPHYS ---
Physician Documentation [facility] Name: Sadia Mcpherson Age: 51 yrs Sex: Female : 1970 Arrival Date: 02/11/2022 Time: 14:14 Bed 12 Private MD: Samantha Mccray ED Physician Karl Headley HPI: 02/11 15:30 This 51 yrs old Female presents to ER via Ambulatory with complaints of Abdominal Pain. jmm 15:30 The patient presents with abdominal pain. Onset: The symptoms/episode began/occurred jmm gradually. The symptoms radiate to Associated signs and symptoms: Pertinent positives: nausea and vomiting. The symptoms are described as achy. Modifying factors: The symptoms are alleviated by nothing, the symptoms are aggravated by nothing. The patient has experienced similar episodes in the past. Historical: - Allergies: 14:40 Sulfa (Sulfonamide Antibiotics); ss 14:40 tobramycin; ss 14:40 Lamictal; ss 14:40 Wellbutrin; ss - PMHx: 14:40 Depression; Hypertension; Hypothyroidism; Kidney stones; ss - PSHx: 14:40 Lithotripsy; ss - Immunization history:: Client reports having NOT received the Covid vaccine. - Social history:: Smoking status: Patient denies any tobacco usage or history of. ROS: 15:30 Constitutional: Negative for fever, chills, and weight loss, Cardiovascular: Negative jmm for chest pain, palpitations, and edema, Respiratory: Negative for shortness of breath, cough, wheezing, and pleuritic chest pain. 15:30 Abdomen/GI: Positive for abdominal pain. 15:30 Back: Positive for radiated pain. 15:30 All other systems are negative. Exam: 15:30 Constitutional: This is a well developed, well nourished patient who is awake, alert, jmm and in no acute distress. Head/Face: atraumatic. Eyes: EOMI, no conjunctival erythema appreciated ENT: Moist Mucus Membranes Neck: Trachea midline, Supple Chest/axilla: Normal chest wall appearance and motion. Cardiovascular: Regular rate and rhythm. No edema appreciated Respiratory: Normal respirations, no respiratory distress appreciated 15:30 Back: Normal ROM Skin: General appearance color normal MS/ Extremity: Moves all extremities, no obvious deformities appreciated, no edema noted to the lower extremities Neuro: Awake and alert Psych: Behavior is normal, Mood is normal, Patient is cooperative and pleasant 15:30 Abdomen/GI: Inspection: abdomen appears normal, Bowel sounds: normal, Palpation: soft, moderate abdominal tenderness, in the epigastric area, right upper quadrant and left upper quadrant. Vital Signs: 14:38 BP 143 / 86; Pulse 80; Resp 18; Temp 98.6; Pulse Ox 98% ; Weight 97.52 kg; Height 5 ft. ss 4 in. (162.56 cm); Pain 10/10; 16:44 BP 139 / 88; Pulse 79; Resp 18; Pulse Ox 99% on R/A; Pain 7/10; ld1 18:04 BP 130 / 94; Pulse 82; Resp 18; Pulse Ox 100% on R/A; Pain 8/10; ld1 19:46 BP 139 / 86; Pulse 80; Resp 18; Pulse Ox 100% on R/A; ld1 14:38 Body Mass Index 36.90 (97.52 kg, 162.56 cm) ss MDM: 15:38 Patient medically screened. braden 20:47 Data reviewed: vital signs, nurses notes. Counseling: I had a detailed discussion with braden the patient and/or guardian regarding: the historical points, exam findings, and any diagnostic results supporting the discharge/admit diagnosis, lab results, radiology results, the need for outpatient follow up, to return to the emergency department if symptoms worsen or persist or if there are any questions or concerns that arise at home. 02/11 15:30 Order name: CBC with Diff; Complete Time: 16:52 [facility] 02/11 15:30 Order name: CMP; Complete Time: 17:08 [facility] 02/11 15:30 Order name: Lipase; Complete Time: 17:08 02/11 15:43 Order name: CT Abd/Pelvis - IV Contrast Only; Complete Time: 19:01 [facility] 02/11 16:45 Order name: Urine --Ancillary (enter results); Complete Time: 16:52 bd 02/11 16:45 Order name: Urine Dipstick-Ancillary; Complete Time: 16:48 EDMS 02/11 15:30 Order name: IV Saline Lock; Complete Time: 16:43 [facility] 02/11 15:30 Order name: Labs collected and sent; Complete Time: 16:43 [facility] 02/11 15:45 Order name: US Abdomen Limited; Complete Time: 17:19 [facility] 02/11 15:30 Order name: Urine Dipstick-Ancillary (obtain specimen); Complete Time: 16:43 ld1 02/11 15:42 Order name: Urine Test (obtain specimen); Complete Time: 16:43 [facility] Administered Medications: 16:43 Drug: morphine 4 mg Route: IVP; Site: right antecubital; ld1 16:43 Drug: Zofran (Ondansetron) 4 mg Route: IVP; Site: right antecubital; ld1 16:44 Drug: Pepcid (famotidine) 20 mg Route: IVP; Site: right antecubital; ld1 20:04 Drug: Reglan (metoCLOPramide) 10 mg Route: IVP; Site: left antecubital; ld1 20:04 Not Given (Patient Refused): diphenhydrAMINE 25 mg IVP once ld1 Disposition: 02/12 07:13 Co-signature as Attending Physician, Karl Headley MD. rn Disposition Summary: 02/11/22 20:48 Discharge Ordered Location: Home [facility] Condition: Stable [facility] Diagnosis - Abdominal pain, unspecified [facility] Followup: [facility] - With: Private Physician - When: 2 - 3 days - Reason: Recheck today's complaints, Continuance of care, Re-evaluation by your physician Discharge Instructions: - Discharge Summary Sheet [facility] - Abdominal Pain, Adult [facility] Forms: - Medication Reconciliation Form [facility] - Thank You Letter [facility] - Antibiotic Education [facility] - Prescription Opioid Use [facility] Prescriptions: - ondansetron 4 mg Oral tablet,disintegrating - place 1 tablet by TRANSLINGUAL route every 4-6 hours; 20 tablet; Refills: 0, [facility] Product Selection Permitted - Carafate 1 gram Oral Tablet - take 1 tablet by ORAL route 4 times per day take on an empty stomach, beginning jm on waking and last dose at bedtime; 100 tablet; Refills: 0, Product Selection Permitted Signatures: Dispatcher [employer] Bernard Connors PA PA [facility] Karl Headley MD MD rn Smirch, Shelby, RN RN ss Lakshmi Pickering RN RN ld1
--- NOTE | 2022-02-11 20:48 | ER ---
Nurse's Notes [facility] Name: Sadia Mcpherson Age: 51 yrs Sex: Female : 1970 Arrival Date: 02/11/2022 Time: 14:14 Bed 12 Private MD: Samantha Mccray Diagnosis: Abdominal pain, unspecified Presentation: 02/11 14:38 Chief complaint: Patient states: Epigastric pain for 1 year, worse for 2-3 months. No ss fever or N/V/D. Endoscopy showed erosion and inflammation. Coronavirus screen: Vaccine status: Patient reports being unvaccinated. Client denies travel out of the [place] in the last 14 days. At this time, the client does not indicate any symptoms associated with coronavirus-19. Ebola Screen: Patient denies travel to an Ebola-affected area in the 21 days before illness onset. Initial Sepsis Screen: Does the patient meet any 2 criteria? No. Patient's initial sepsis screen is negative. Does the patient have a suspected source of infection? Yes: Acute abdominal pain. Risk Assessment: Do you want to hurt yourself or someone else? Patient reports no desire to harm self or others. Onset of symptoms was February 11, 2021. 14:38 Method Of Arrival: Ambulatory ss 14:38 Acuity: JAYLEN 3 ss Historical: - Allergies: 14:40 Sulfa (Sulfonamide Antibiotics); ss 14:40 tobramycin; ss 14:40 Lamictal; ss 14:40 Wellbutrin; ss - PMHx: 14:40 Depression; Hypertension; Hypothyroidism; Kidney stones; ss - PSHx: 14:40 Lithotripsy; ss - Immunization history:: Client reports having NOT received the Covid vaccine. - Social history:: Smoking status: Patient denies any tobacco usage or history of. Screenin:44 Abuse screen: Denies threats or abuse. Denies injuries from another. Nutritional ld1 screening: No deficits noted. Tuberculosis screening: No symptoms or risk factors identified. Fall Risk None identified. Assessment: 16:44 General: Appears in no apparent distress. uncomfortable, Behavior is calm, cooperative, ld1 appropriate for age. Pain: Complains of pain in right upper quadrant and left upper quadrant Pain does not radiate. Pain currently is 7 out of 10 on a pain scale. Quality of pain is described as sharp, throbbing, Pain began gradually, Is continuous. Neuro: Level of Consciousness is awake, alert, obeys commands, Oriented to person, place, time, situation. Cardiovascular: Capillary refill < 3 seconds Patient's skin is warm and dry. Respiratory: Airway is patent Respiratory effort is even, unlabored. GI: Abdomen is round non-distended, Bowel sounds present X 4 quads. Abd is soft Abdomen is tender to palpation X 4 quads. : No signs and/or symptoms were reported regarding the genitourinary system. EENT: No signs and/or symptoms were reported regarding the EENT system. Derm: No signs and/or symptoms reported regarding the dermatologic system. Musculoskeletal: No signs and/or symptoms reported regarding the musculoskeletal system. 18:04 Reassessment: Patient appears in no apparent distress at this time. Notified ERP. See ld1 MAR for orders. Patient states symptoms have not improved. 19:46 Reassessment: Patient appears in no apparent distress at this time. ld1 19:47 Reassessment: ERP at bedside discussing care. ld1 Vital Signs: 14:38 BP 143 / 86; Pulse 80; Resp 18; Temp 98.6; Pulse Ox 98% ; Weight 97.52 kg; Height 5 ft. ss 4 in. (162.56 cm); Pain 10/10; 16:44 BP 139 / 88; Pulse 79; Resp 18; Pulse Ox 99% on R/A; Pain 7/10; ld1 18:04 BP 130 / 94; Pulse 82; Resp 18; Pulse Ox 100% on R/A; Pain 8/10; ld1 19:46 BP 139 / 86; Pulse 80; Resp 18; Pulse Ox 100% on R/A; ld1 14:38 Body Mass Index 36.90 (97.52 kg, 162.56 cm) ED Course: 14:14 Patient arrived in ED. as 14:15 Samantha Mccray is Private Physician. as 14:21 [facility] 14:21 Karl Headley MD is Attending Physician. [facility] 14:40 Triage completed. ss 14:41 Arm band placed on. ss 15:13 Lakshmi Pickering, SILVIA is Primary Nurse. ld1 16:44 Patient has correct armband on for positive identification. Bed in low position. Call ld1 light in reach. Side rails up X2. monitoring coordinator on. Pulse ox on. NIBP on. Door closed. Noise minimized. Warm blanket given. 16:44 No provider procedures requiring assistance completed. Inserted saline lock: 20 gauge ld1 in right antecubital area, using aseptic technique. Blood collected. 17:15 US Abdomen Limited In Process Unspecified. EDMS 18:15 Inserted saline lock: 18 gauge in left antecubital area, using aseptic technique. ld1 18:35 CT Abd/Pelvis - IV Contrast Only In Process Unspecified. EDMS 21:17 IV discontinued, intact, bleeding controlled, No redness/swelling at site. Pressure vc1 dressing applied. Administered Medications: 16:43 Drug: morphine 4 mg Route: IVP; Site: right antecubital; ld1 16:43 Drug: Zofran (Ondansetron) 4 mg Route: IVP; Site: right antecubital; ld1 16:44 Drug: Pepcid (famotidine) 20 mg Route: IVP; Site: right antecubital; ld1 20:04 Drug: Reglan (metoCLOPramide) 10 mg Route: IVP; Site: left antecubital; ld1 20:04 Not Given (Patient Refused): diphenhydrAMINE 25 mg IVP once ld1 Outcome: 20:48 Discharge ordered by . braden 21:16 Discharged to home ambulatory. vc1 21:16 Condition: good 21:16 Discharge instructions given to patient, Instructed on discharge instructions, follow up and referral plans. medication usage, Demonstrated understanding of instructions, follow-up care, medications, Prescriptions given X 2. 21:17 Patient left the ED. vc1 Signatures: Dispatcher [employer] EDMS Bernard Eddy PA PA jmm Martinez, Amelia as Smirch, Shelby, RN RN ss Dibbern, Lauren, RN RN ld1 Maricruz Chavez RN RN vc1 Corrections: (The following items were deleted from the chart) 18:15 18:15 Inserted saline lock: 20 gauge in left antecubital area, using aseptic technique. ld1 ld1
[2022-02-11 23:16] VITALS: TEMP 98.6
[2022-02-11 23:19] VITALS: O2SAT 100
[2022-02-11 23:20] VITALS: BP 139/86
== END 2022-02-11 21:17 | disposition home or self-care (01) ==
LOC: ER 14:12
DX: R10.13 Epigastric pain (principal); I10 Essential (primary) hypertension; Z87.442 Personal history of urinary calculi; Z88.1 Allergy status to other antibiotic agents; Z88.2 Allergy status to sulfonamides; Z88.3 Allergy status to other anti-infective agents; Z88.8 Allergy status to other drugs, medicaments and biological substances
CPT/HCPCS: 85025; 36415; 81025; 81003; 83690; 80053; 74177; 76705; Q9967; J2765; J1200; J7050; J2405; J3490; 99284

== ENCOUNTER 2022-05-31 16:30 | Emergency (ER) | payer OTHER ==
--- OUTSIDE RECORDS SUMMARY | 2022-05-31 16:34 | XMS REPORT | Continuity of Care Document ---
:1970 Author Organization [place] [facility] t Address [address] [place] [address] Care Team Providers Name Role Phone Samantha Foster MD Primary Care Physician [phone] SAMANTHA FOSTER Attending Clinician Unavailable BUCK MERCER Attending Clinician Unavailable MD DAKSHA Attending Clinician Unavailable LAB90 Attending Clinician Unavailable Lance EID, Dolly Attending Clinician Samantha Foster MD Attending Clinician [phone] Buck Mercer DO Attending Clinician Esther Kinsey Attending Clinician Chrissy Leyva MD Attending Clinician [phone] Man VEGA, Heather L Attending Clinician Unavailable Arcenio Hand MD Attending Clinician Bruce Guardado MD, Huy Mcmullen Attending Clinician [phone] Alivia Clark MD Attending Clinician Lucía Borrego Attending Clinician Bruce Guardado MD, Huy Mcmullen Admitting Clinician [phone] Payers Payer Name Policy Type Policy Number Effective Date Expiration Date S ource MEDICARE PART B [id number] [place] * [employer] MEDICARE 7 [id number] 2022 [id number] GOLD 00:00:00 PLUS 2021 Problems Condition Condition Condition Status Onset Resolution Last Treating Co mments Source Name Details Category Date Date Treatment Clinician Date Hyperlipid Hyperlipid Disease Active Damir velasquez emia 5-17 Seybold 00:00: 00 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 4-19 Seybol d mellitus mellitus 00:00: without without 00 complicati complicati on, with on, with shelter [place] terminal agent current current use of use of insulin insulin pump pump assisted assisted Disease Active Zak sey current current 4-19 Seybold use of use of 00:00: insulin insulin 00 Hypothyroi Hypothyroi Disease Active [place] dism dism 4-19 Seybold (acquired) (acquired) 00:00: 00 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 4-19 Se ybold in in 00:00: remission remission 00 Acquired Acquired Disease Active Unive rs hypothyroi hypothyroi 6-09 it y of dism dism 00:00: [place] [facility] Dyslipidem Dyslipidem Disease Active U brenda ia ia 6-09 ity of 00:00: [place] [facility] Vitamin D Vitamin D Disease Active Uni vers deficiency deficiency 5-06 it y of 00:00: [place] [facility] Elevated Elevated Disease Active Unive rs liver liver 5-05 ity of enzymes enzymes 00:00: [place] [facility] Uncontroll Uncontroll Disease Active U brenda ed type 2 ed type 2 4-20 ity of diabetes diabetes 00:00: [place] mellitus mellitus 00 Medica l with with Branch insulin insulin therapy therapy DKA, type DKA, type Disease Active Uni vers 2, not at 2, not at 4-20 ity of goal goal 00:00: [place] [facility] Lumbar Lumbar Disease Active Overview: Univnigel s spondylosi spondylosi 04-11 Formattin ity of s s 00:00: g of this [place] 00 note Medical might be Branch different from the original. Added automatic ally from request for surgery [id number] Menorrhagi Menorrhagi Disease Active U nivers a with a with 2-28 it[place] of irregular irregular 00:00[place] 00 [facility] Obesity [...] Overview: Un fernanda high risk high risk 03-02 Formattin i ty of human human 00:00: g of this [place] papillomav papillomav 00 note Me dical irus (HPV) irus (HPV) might be Branch DNA test DNA test different positive positive from the original. 10/28/18 - pap smear normal; HPV 16 positive - colposcop y normal. ECC benign. 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 1-17 ity of 00:00: [place] [facility] Bilateral Bilateral Disease Active Uni vers lower lower 7-20 [place] of extremity extremity [place] edema edema 00 [place] Overweight Overweight Disease Active U nivers (BMI (BMI 7-20 ity of 25.0-29.9) 25.0-29.9[place] Low back Low back Disease Active Unive rs pain pain 3-14 ity of 00:00: [place] [facility] Hydronephr Hydronephr Disease Active U nivers osis osis 3-14 ity of 00:00: [place] [address] Medical Branch History of History of Disease Active U nivers urinary urinary 3-14 ity of stone [place] 00:00: [place] 00 Medical Branch Loss of Loss of Disease Active Univers muscle muscle 3-14 ity of tone of tone of 00:00: [place] bladder bladder 00 Medical Branch No known No known Disease Kelse y active active Seybold problems problems Staph skin Staph skin Disease Active U nivers infection infection ity of [facility] Prediabete Prediabete Disease Active U nivers s s ity of [facility] Allergies, Adverse Reactions, Alerts Allergy Allergy Status Severity Reaction(s) Onset Inactive Treating Comm ents Source Name Type Date Date Clinician Lamotrig Propensi Active Rash Alexandre Reema ine ty to 04-21 Supa Seybold adverse 00:00: reaction 00 s Minocycl Propensi Active Rash Reema ine ty to 04-21 Seybold adverse 00:00: reaction 00 s Sulfa Propensi Active Rash Reema Drugs ty to 04-21 Seybold adverse 00:00: reaction s Minocycl Propensi Active Rash Univer s ine ty to 04-21 ity of adverse 00:00: [place] reaction 00 Medical s Branch Bupropio Propensi Active Swelling Univ ers n ty to 04-21 ity of adverse 00:00: [place] reaction Medical s Branch Sulfa Propensi Active Rash Univers (Sulfona ty to 04-21 ity of mide adverse 00:00: [place] Antibiot reaction 00 Medica l ics) s Branch Bupropio Propensi Active Other Reema n ty to 10-12 Seybold adverse 00:00: reaction 00 s Doxycycl Propensi Active Rash Reema ine ty to 10-12 Seybold Monohydr [...] Medical Branch Tobramyc Drug Active Unknown - Unive rs in Allergy See comments - ity of 00:00: [place] [address] Medical Branch Social History Social Habit Start Date Stop Date Quantity Comments Source Tobacco use and 2022-01-28 2022-01-28 Smokeless tobacco Eduar puente Seybold exposure 00:00:00 00:00:00 non-user Alcohol intake 2022-01-08 2022-01-08 Current University 00:00:00 00:00:00 non-drinker of [facility] alcohol (finding) Branch Sex Ass[birth year] At [birth year] Reema Snyder ybce 00:00:00 00:00:00 Smoking Status Start Date Stop Date Source Never smoked tobacco Reema Seyb ce Medications Ordered Filled Start Stop Current Ordering Indication Dosage Frequency Signature Comments Components Source Medication Medication Date Date Medication? Clinician (SIG) Name Name Aspirin 81 Yes 81mg Take 81 mg K elsey MG oral 6-06 by mouth Seybold Chewable 14:50: daily Tablet 32 Clonazepam Yes .125mg Q.5D Take 0.125 Reema 0.125 MG 6-06 mg by Seybold oral TABLET 14:50: mouth as DISPERSIBLE 32 needed in the morning and 0.125 mg as needed in the evening. Quetiapine Yes [id number] 100mg Take 1 Reema Fumarate 6-01 tablet Seybold 100 MG oral 00:00: (100 mg Tablet 00 total) by mouth nightly Insulin Yes Inject Reema Glargine 5-19 20-22 Seybold (Lantus 00:00: units SoloStar) 00 under the 100 UNIT/ML skin (SQ) subcutaneou daily, in s Solution the Pen-injecto morning. r Quetiapine Yes 1{tbl} Take 1 Zak sey Fumarate 5-17 tablet by Seybol d 300 MG oral 08:17: mouth Tablet 16 Aspirin 81 Yes 81mg Take 81 mg K elsey MG oral 5-17 by mouth Seybold Chewable 08:17: daily Tablet 16 Insulin Yes [id number] 12U Inject 12 Reema Glargine 5-17 units into Seybo ld (Lantus 00:00: the skin SoloStar) 00 daily 100 UNIT/ML subcutaneou s Solution Pen-injecto r Insulin Yes [id number] 12U Inject 12 Reema Glargine 5-17 units into Seybo ld (Lantus 00:00: the skin SoloStar) 00 daily 100 UNIT/ML subcutaneou s Solution Pen-injecto r Pantoprazol Yes 40mg Take 40 mg Reema e Sodium 40 5-16 by mouth Seyb old MG oral 00:00: daily Tablet 00 Delayed Response Pantoprazol Yes Reema e Sodium 40 5-16 Seybold MG oral 00:00: Tablet 00 Delayed Response VALACYCLOVI Yes [id number] TAKE ONE Univers R 500 mg 5-16 TABLET BY ity of tablet 00:00: MOUTH [place] 00 DAILY Medical Branch Carvedilol Yes 25mg 25 mg in Zak sey 25 MG oral 5-12 the Seybold Tablet 00:00: morning 00 and 25 mg in the evening. Take with meals. Carvedilol Yes Reema 25 MG oral 5-12 Seybold Tablet 00:00: 00 Levothyroxi Yes [id number] 137ug Take 1 Reema ne Sodium 5-05 tablet Seybold 137 MCG 00:00: (137 mcg oral Tablet 00 total) by mouth daily Levothyroxi Yes [id number] 137ug Take 1 Reema ne Sodium 5-05 tablet Seybold 137 MCG 00:00: (137 mcg oral Tablet 00 total) by mouth daily Quetiapine Yes 1{tbl} Take 1 Zak sey Fumarate 5-04 tablet by Seybol d 300 MG oral 13:58: mouth Tablet 17 Aspirin 81 0 Yes 81mg Take 81 mg K elsey MG oral 5-04 by mouth Seybold Chewable 13:58: daily Tablet 17 Duloxetine Yes 1{capsu 1 capsule Reema HCl 30 MG 4-19 le} Seybold oral Cap DR 13:39: Particles 53 Quetiapine Yes 1{tbl} Take 1 Zak sey Fumarate 4-19 tablet by Seybol d 300 MG oral 13:39: mouth Tablet 53 Aspirin 81 Yes 81mg Take 81 mg K elsey MG oral 4-19 by mouth Seybold Chewable 13:39: daily Tablet 53 Valacyclovi Yes 1{tbl} Take 1 Ke lsey r HCl 500 4-12 tablet by Seybo ld MG oral 00:00: mouth Tablet 00 daily Valacyclovi Yes 1{tbl} Take 1 Ke lsey r HCl 500 4-12 tablet by Seybo ld MG oral 00:00: mouth Tablet 00 daily Valacyclovi Yes 1{tbl} Take 1 Ke lsey r HCl 500 4-12 tablet by Seybo ld MG oral 00:00: mouth Tablet 00 daily Valacyclovi Yes 1{tbl} Take 1 Ke lsey r HCl 500 4-12 tablet by Seybo ld MG oral 00:00: mouth Tablet 00 daily Lantus Yes 12U Inject 12 Reema SoloStar 4-01 units into Seybo ld 100 UNIT/ML 00:00: the skin subcutaneou 00 daily s Solution Pen-injecto r Lantus Yes 12U Inject 12 Reema SoloStar 4-01 units into Seybo ld 100 UNIT/ML 00:00: the skin subcutaneou 00 daily s Solution Pen-injecto r Lantus 2021- No 12U Inject 12 Kelse y SoloStar 4-01 05-17 units into Seyb old 100 UNIT/ML 00:00: 00:00 the skin subcutaneou 00 :00 daily s Solution Pen-injecto r aspirin 81 Yes 81mg Take 81 mg U nivers mg chewable 3-24 by mouth ity of tablet 13:15: daily. [place] 54 Medical Branch desvenlafax Yes 1{tbl} Take 1 Un fernanda ine 3-24 tablet by ity of succinate 13:15: mouth [place] (PRISTIQ) 54 daily. Medical 25 mg Tb24 [...] 500 mg ity of tablet 13:15: tablet [address] aspirin 81 Yes aspirin 81 U nivers mg EC 3-24 mg ity of tablet 13:15: tablet,del [place] [address] ayed Medical release Branch Take 1 tablet every day by oral route. carvediloL Yes Coreg 25 Uni vers (COREG) 25 3-24 mg tablet ity of mg tablet 13:15: Take 1 [place] [address] tablet Medical twice a Branch day by oral route. simvastatin Yes simvastati Univers 20 mg 3-24 n 20 mg ity of tablet 13:15: tablet [address] traZODone Yes trazodone Uni vers 50 mg 3-24 50 mg ity of tablet 13:15: tablet [address] desvenlafax Yes Univer s ine 3-24 ity of succinate 13:15: [place] (PRISTIQ) [address] [place] [address] 25 mg Tb24 Branch QUEtiapine Yes Seroquel Uni vers (SEROQUEL) 3-24 200 mg ity of 200 mg 13:15: tablet [place] tablet 54 Take 1 Medical tablet [place] twice a day by oral route. levothyroxi Yes levothyrox Univers ne 50 mcg 3-24 ine 50 mcg ity of tablet 13:15: tablet [address] Metformin Yes metformin Zak sey HCl 500 MG 2-24 500 mg Seybold oral Tablet 00:00: tablet 00 Metformin Yes metformin Zak sey HCl 500 MG 2-24 500 mg Seybold oral Tablet 00:00: tablet 00 Metformin Yes metformin Zak sey HCl 500 MG 2-24 500 mg Seybold oral Tablet 00:00: tablet 00 Metformin Yes 500mg Take 500 Zak sey HCl 500 MG 2-24 mg by Seybold oral Tablet 00:00: mouth 00 daily (with breakfast) metFORMIN Yes 500mg Take 1 Unive rs 500 mg 2-24 tablet by ity of tablet 00:00: mouth [place] 00 every Medical evening. Branch hydrOXYzine Yes [id number] 25mg Take 1 Univers 25 mg 1-29 tablet by ity of tablet 00:00: mouth [place] 00 every 6 Medical (six) Branch hours as needed for Itching or Anxiety. methylPREDN Yes [id number] Take by Univers ISolone 1-29 mouth ity [...] 00:00: mouth [place] 00 daily. Medical Branch Levothyroxi Yes 1{tbl} Take 1 Ke lsey ne Sodium 1-12 tablet by Seybo ld 125 MCG 00:00: mouth oral Tablet 00 every 24 hours Simvastatin Yes simvastati Reema 20 MG oral 1-12 n 20 mg Seybol d Tablet 00:00: tablet 00 Levothyroxi Yes 1{tbl} Take 1 Ke lsey ne Sodium 1-12 tablet by Seybo ld 125 MCG 00:00: mouth oral Tablet 00 every 24 hours Simvastatin Yes simvastati Reema 20 MG oral 1-12 n 20 mg Seybol d Tablet 00:00: tablet 00 Simvastatin Yes simvastati Reema 20 MG oral 1-12 n 20 mg Seybol d Tablet 00:00: tablet 00 Simvastatin Yes 20mg Take 20 mg Reema 20 MG oral 1-12 by mouth Seybo ld Tablet 00:00: nightly 00 levothyroxi Yes [id number] 125ug Take 1 Univers ne 125 mcg 1-12 tablet by ity of tablet 00:00: mouth [place] 00 every Medical morning. Branch simvastatin Yes [id number] 20mg Take 1 Univers 20 mg 1-12 tablet by ity of tablet 00:00: mouth at [place] [address] bedtime. Medical Branch Insulin Yes [id number] 15U inject 15 Univers Glargine 1-12 Units ity of 100 unit/mL 00:00: under the [place] (3 mL) 00 skin daily Medical injection before [place] breakfast. methocarbam 2020-10 Yes [id number] 500mg Take 1 Univers oL 2-24 tablet by ity of (ROBAXIN) 00:00: mouth 4 [place] 500 mg 00 (four) Medical tablet times Branch daily. phenazopyri 2020-10 Yes [id number] 200mg Take 2 Univers dine 100 mg 2-24 tablets by it y of tablet 00:00: mouth 3 00 (three) Medical times Branch daily. carvediloL 2020-10 Yes [id number] 25mg Take 1 U nivers 25 mg 1-16 tablet by ity of tablet 00:00: mouth 2 [place] 00 (two) Medical times Branch daily. clobetasoL 2020-10 Yes [id number] Apply to Univers 0.05 % 0-05 area(s) 2 ity of ointment 00:00: (two) [place] [address] times Medical daily. Branch OMEPRAZOLE Yes [id number] TAKE ONE Univers 40 mg 9-30 CAPSULE BY ity of capsule 00:00: MOUTH [place] 00 DAILY Medical Branch blood sugar Yes [id number] 1{strip 1 Strip Univers diagnostic 5-24 } before ity of (BLOOD 00:00: meals and [place] GLUCOSE 00 at Medical TEST) strip bedtime. [facility] Check glucose once daily before breakfast; Diagnosis code R73.03 Blood-Gluco Yes [id number] Check U nivers se Meter 4-20 glucose ity of Kit 00:00: once daily [place] 00 before Medical breakfast; [place] Diagnosis code R73.03 Lancets 2019-10 Yes [id number] Check Univ ers Misc 1-18 glucose ity of 00:00: once daily [place] 00 before Medical breakfast; [place] Diagnosis code R73.03 QUEtiapine Yes Univers 300 mg 1-10 ity of tablet 00:00: [place] 00 Medical Branch Vital Signs Vital Name Observation Time Observation Value Comments Source Systolic blood pressure 2022-03-17 19:42:00 112 mm[Hg] Reema Seybold Diastolic blood 2022-03-17 19:42:00 64 mm[Hg] Kelse y Seybold pressure Heart rate 2022-03-17 19:42:00 96 /min Reema S eybold Body temperature 2022-03-17 19:42:00 36.39 Lynette Kaykay ey Seybold Respiratory rate 2022-03-17 19:42:00 14 /min Kaykay ey Seybold Body height 2022-03-17 19:42:00 162.6 cm Reema S eybold Body weight 2022-03-17 19:42:00 102.059 kg Reema S eybold BMI 2022-03-17 19:42:00 38.62 kg/m2 Reema S eybold Systolic blood pressure 2022-02-25 13:19:00 110 mm[Hg] Reema Seybold Diastolic blood 2022-02-25 13:19:00 62 mm[Hg] Kelse y Seybold pressure Heart rate 2022-02-25 13:19:00 78 /min Reema S eybold Body temperature 2022-02-25 13:19:00 36.78 Lynette Kaykay ey Seybold Respiratory rate 2022-02-25 13:19:00 14 /min Kaykay ey Seybold Body height 2022-02-25 13:19:00 162.6 cm Remea S eybold Body weight 2022-02-25 13:19:00 100.971 kg Reema S eybold BMI 2022-02-25 13:19:00 38.21 kg/m2 Reema S eybold Oxygen saturation in 2022-02-25 13:19:00 99 /min Reema Snyderybold Arterial blood by Pulse oximetry Systolic blood pressure 2022-02-12 18:51:00 114 mm[Hg] Reema Seybold Diastolic blood 2022-02-12 18:51:00 66 mm[Hg] Kelse y Seybold pressure Heart rate 2022-02-12 18:51:00 76 /min Reema S eybold Body temperature 2022-02-12 18:51:00 36 Lynette Kaykay ey Seybold Respiratory rate 2022-02-12 18:51:00 14 /min Kaykay ey Seybold Body height 2022-02-12 18:51:00 162.6 cm Reema Coleman eybold Body weight 2022-02-12 18:51:00 100.699 kg Reema Coleman eybold BMI 2022-02-12 18:51:00 38.11 kg/m2 Reema S eybold Systolic blood pressure 2022-01-28 18:35:00 127 mm[Hg] Reema Seybold Diastolic blood 2022-01-28 18:35:00 76 mm[Hg] Kelse y Seybold pressure Heart rate 2022-01-28 18:35:00 72 /min Reema sainibold Body temperature 2022-01-28 18:35:00 36.61 Lynette Kaykay ey Seybold Respiratory rate 2022-01-28 18:35:00 14 /min Kaykay ey Seybold Body height 2022-01-28 18:35:00 162.6 cm Reema sainibold Body weight 2022-01-28 18:35:00 101.152 kg Reema Coleman eybold BMI 2022-01-28 18:35:00 38.28 kg/m2 Reema sainibold Procedures This patient has no known procedures. Encounters Start End Encounter Admission Attending Care Care Encounter Source Date/Time Date/Time Type Type Clinicians Facility Department ID 2022-01-10 Outpatient [facility] [id number] [place] 13:15:51 [id number] [facility] 2022-01-08 Outpatient [facility] [id number] [place] 12:03:37 [id number] [facility] 2022-08-28 2022-08-28 Outpatient REEMA FOSTER [id number] Reema 13:45:00 13:45:00 SAMANTHA mejias 2022-07-14 2022-07-14 Outpatient BUCK MERCER [id number] Reema 13:30:00 13:30:00 Seybol d 2022-05-26 2022-05-26 Outpatient MIREYA MOJICA [id number] Reema 00:00:00 00:00:00 MD KYLAH Seybol d 2022-05-22 2022-05-22 Outpatient BUCK MERCER [id number] Reema 00:00:00 00:00:00 Seybol d 2022-05-21 2022-05-21 Outpatient LAB90 REEMA MOJICA [id number] Reema 14:50:00 14:50:00 Seybol d 2022-05-19 2022-05-19 Outpatient REEMA FOSTER [id number] Reema 00:00:00 00:00:00 SAMANTHA Seybol d 2022-04-24 2022-04-24 Refill Lance [facility] [id number] Univers 00:00:00 00:00:00 [facility] [id number] it y of [place] 4.2.7.2.686 Anton as DIANN?BLEA [id number] [address] OFFICE BUILDING 2022-04-23 2022-04-23 Outpatient REEMA FOSTER [id number] Reema 00:00:00 00:00:00 SAMANTHA Seybol d 2022-04-15 2022-04-15 Office Neo Foster [id number] Reema 13:30:00 14:00:00 Visit Samantha Cavanaugh [id number] Se ybold Somogyi [id number] 2022-04-09 2022-04-09 Office Buck Mercer [id number] Reema 14:30:00 15:00:00 Visit Chery LIZARRAGA [id number] Se ybold [id number] 2022-04-01 2022-04-01 Outpatient REEMA FOSTER [id number] Reema 00:00:00 00:00:00 SAMANTHA Seybol d 2022-03-17 2022-03-17 Office Neo Foster [id number] Reema 14:45:00 15:00:00 Visit Samantha Cavanaugh [id number] Se ybold Somogyi [id number] 2022-02-25 2022-02-25 Outpatient LAB90 REEMA MOJICA [id number] Reema 09:10:00 09:10:00 Seybol d 2022-02-25 2022-02-25 Office Neo Foster [id number] Reema 08:30:00 08:45:00 Visit Samantha Cavanaugh [id number] Se ybold Somogyi [id number] 2022-02-21 2022-02-21 Outpatient REEMA FOSTER [id number] Reema 00:00:00 00:00:00 SAMANTHA Seybol d 2022-02-18 2022-02-18 Outpatient REEMA FOSTER [id number] Reema 00:00:00 00:00:00 SAMANTHA Seybol d 2022-02-13 2022-02-13 Outpatient REEMA FOSTER [id number] Reema 00:00:00 00:00:00 SAMANTHA Seybol d 2022-02-13 2022-02-13 Outpatient REEMA FOSTER [id number] Reema 00:00:00 00:00:00 SAMANTHA Seybol d 2022-02-12 2022-02-12 Outpatient LAB90 REEMA MOJICA [id number] Reema 14:45:00 14:45:00 Seybol d 2022-02-12 2022-02-12 Office Neo Foster [id number] Reema 14:00:00 14:30:00 Visit Samantha Cavanaugh [id number] Se ybold Somogyi [id number] 2022-02-11 2022-02-11 Outpatient REEMA FOSTER [id number] Reema 00:00:00 00:00:00 SAMANTHA Seybol d 2022-02-07 2022-02-07 Outpatient REEMA FOSTER [id number] Reema 00:00:00 00:00:00 SAMANTHA Seybol d 2022-01-29 2022-01-29 Outpatient KRISTIN REEMA MOJICA [id number] Reema 00:00:00 00:00:00 SAMANTHA Seybol d 2022-01-28 2022-01-28 Outpatient LAB90 REEMA REEMA [id number] Reema 14:25:00 14:25:00 Seybol d 2022-01-28 2022-01-28 Office KRISTIN Lizarraga [id number] Reema 13:30:00 13:30:00 Visit SAMANTHA Mao [id number] Se shan [id number] 2021-02-07 2021-02-07 Telephone MONIK Brar [id number] 00:00:00 00:00:00 [facility] [id number] [place] 4.2.7.2.686 Professio [id number] nal 0[address] 2021-02-07 2021-02-07 Emergency [facility] [id number] [place] [address] 00:00:00 00:00:[address] 2021-02-01 2021-02-01 Telephone MONIK Leyva 1.2.840.114 [id number] 00:00:00 00:00:00 Chrissy SANCHEZ [id number] Radha PERRY 4.2.7.2.686 [place] [id number] [facility] 2021-02-01 2021-02-01 Transition Sommer Conway 1.2.840.114 [id number] 00:00:00 00:00:00 of Care Heather Juan [id number] [place] 4.2.7.2.686 [id number] 2021-01-29 2021-01-31 [facility] Arcenio Hand 1.2.840.1 [id number] 16:44:00 17:15:00 Encounter Huy Barrera 350.1.13. 10 [facility] [id number] [id number] 2021-01-29 2021-01-29 [facility] 1.2.840.114 [id number] 15:27:18 16:23:45 Visit [facility] [id number] [place] 4.2.7.2.686 [place] [id number] nal 044 Office [address] Results This patient has no known results.
[2022-05-31 16:56] LABS: Urine Blood 1+ (Negative); Urine Glucose Negative (Negative); Urine Protein Trace (Negative); Urine Specific Gravity 1.025 (1.005-1.030)
[2022-05-31] MEDS ORDERED: ONDANSETRON 4 MG/2 ML VIAL ONE ×2 (17:33→21:46)
[2022-05-31] MEDS ORDERED: NA CHLORIDE 0.9% 1,000 ML ONE (17:34)
[2022-05-31] MEDS ORDERED: MECLIZINE HCL 12.5 MG TAB ONE (17:55)
[2022-05-31 18:00] LABS: Blood Gas Oxyhemoglobin 81.5 % (94-97); Blood O2 Saturation 83.2 % (92-98.5)
[2022-05-31 18:20] LABS: Absolute Lymphocytes (CBC) 1.6 K/uL (0.7-4.9); Hematocrit 41.6 % (36.0-45.0); MCV 88.9 fL (80-100); MPV 8.6 fL (7.6-11.3); RBC Red Blood Cell Count 4.68 M/uL (3.86-4.86)
--- NOTE | 2022-05-31 18:21 | RAD REPORT ---
EXAM DESCRIPTION: CT - Head Brain Wo Cont - 05/31/2022 6:13 pm CLINICAL HISTORY: dizziness, BETH COMPARISON: Head Brain Wo Cont dated 02/07/2021 TECHNIQUE: Axial 5 mm thick images of the head were obtained without IV contrast. All CT scans are performed using dose optimization technique as appropriate and may include automated exposure control or mA/KV adjustment according to patient size. FINDINGS: No intracranial hemorrhage, mass, edema or shift of mid-line structures. No acute infarcti on changes seen. No abnormal extra-axial fluid collections. Ventricles are normal. Mastoid air cells and visualized portions of the paranasal sinuses are clear. No acute bony findings. No significant change from comparison. IMPRESSION: Negative non-contrast CT head examination.
[2022-05-31] MEDS ORDERED: DIPHENHYDRAMINE 50 MG/ML VIAL ONE (18:31)
[2022-05-31] MEDS ORDERED: METOCLOPRAMIDE 10 MG/2mL INJ ONE (18:31)
[2022-05-31 18:40] LABS: ALT/SGPT 23 U/L (12-78); AST/SGOT 5 U/L (15-37); Albumin 3.7 g/dL (3.4-5.0); Alkaline Phosphatase 77 U/L (45-117); BUN Blood Urea Nitrogen 21 mg/dL (7-18); Bicarbonate 24 mmol/L (21-32); Bilirubin Total 0.2 mg/dL (0.2-1.0); Glomerular Filtration Rate 71 ml/min (=/>90); Glucose Level 295 mg/dL (74-106); Magnesium 2.1 mg/dL (1.8-2.4); Potassium 3.7 mmol/L (3.5-5.1); Protein, Total 7.9 g/dL (6.4-8.2); Sodium Level 137 mmol/L (136-145)
[2022-05-31 18:45] LABS: Troponin High Sensitivity < 3.0 pg/mL (<58.9)
[2022-05-31] MEDS ORDERED: KETOROLAC 30 MG/ML INJ ONE ×2 (20:30→21:11)
[2022-05-31] MEDS ORDERED: DIAZEPAM 5 MG TABLET ONE (20:30)
[2022-05-31] MEDS ORDERED: MORPHINE 4 MG/ML SYR ONE (21:46)
--- NOTE | 2022-05-31 22:24 | ER ---
Nurse's Notes [facility] Name: Sadia Mcpherson Age: 51 yrs Sex: Female : 1970 Arrival Date: 05/31/2022 Time: 16:31 Bed 18 Private MD: Samantha Mccray Diagnosis: Dizziness and giddiness;Headache;Hypertensive heart disease without heart failure Presentation: 05/31 16:38 Chief complaint: Patient states: Pt reports BGL 352 \T\1430, BGL 236 \T\1600, pt reports kb 3 feeling N/V. Coronavirus screen: Vaccine status: Patient reports being unvaccinated. nausea, vomiting. Client presents with at least one sign or symptom that may indicate coronavirus-19. Standard/surgical mask placed on the client. Provider contacted for isolation considerations. Ebola Screen: Patient negative for fever greater than or equal to 101.5 degrees Fahrenheit, and additional compatible Ebola Virus Disease symptoms Patient denies exposure to infectious person. Patient denies travel to an Ebola-affected area in the 21 days before illness onset. No symptoms or risks identified at this time. Initial Sepsis Screen: Does the patient meet any 2 criteria? No. Patient's initial sepsis screen is negative. Does the patient have a suspected source of infection? No. Patient's initial sepsis screen is negative. Risk Assessment: Do you want to hurt yourself or someone else? Patient reports no desire to harm self or others. Onset of symptoms was May 31, 2022 at 09:00. 16:38 Method Of Arrival: Ambulatory kb3 16:38 Acuity: JAYLEN 3 kb3 Triage Assessment: 16:42 General: Appears in no apparent distress. Behavior is calm, cooperative. Pain: Denies kb3 pain. GI: Reports nausea, vomiting. 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 kb3 Historical: - Allergies: 16:42 Lamictal; kb3 16:42 Sulfa (Sulfonamide Antibiotics); kb3 16:42 tobramycin; kb3 16:42 Wellbutrin; kb3 - Home Meds: 16:42 aspirin 81 mg Oral chew 1 tab once daily [Active]; Coreg 12.5 mg Oral tab 1 tab 2 times kb3 per day [Active]; levothyroxine 75 mcg tab 1 tab once daily [Active]; Seroquel 100 mg oral tab 1 tab [Active]; simvastatin 20 mg Oral tab 1 tab once daily [Active]; Humalog U-100 Insulin 100 unit/mL Sub-Q crtg [Active]; Remeron 15 mg Oral tab 1 tab once daily [Active]; - PMHx: 16:42 Depression; Hypertension; Hypothyroidism; Kidney stones; IDDM; kb3 - Immunization history:: Adult Immunizations up to date, Client reports having NOT received the Covid vaccine. Last tetanus immunization: up to date. - Social history:: Smoking status: Patient denies any tobacco usage or history of. Patient/guardian denies using alcohol, street drugs. Screenin:20 Abuse screen: Denies threats or abuse. em6 17:20 Nutritional screening: No deficits noted. Tuberculosis screening: No symptoms or risk em6 factors identified. Fall Risk None identified. IV access (20 points). Total Owusu Fall Scale indicates No Risk (0-24 pts). Assessment: 17:20 General: Appears comfortable, Behavior is cooperative, anxious, crying. Pain: Complains jd3 of pain in head Pain currently is 10 out of 10 on a pain scale. Quality of pain is described as throbbing, Pain began. Neuro: Schafer Agitation-Sedation Scale (RASS): 0 - Alert and Calm Level of Consciousness is awake, alert, obeys commands, Oriented to person, place, time, situation, Reports headache frontal area. Cardiovascular: Patient's skin is warm and dry. Respiratory: Airway is patent Respiratory effort is even, unlabored, Respiratory pattern is regular, symmetrical, Breath sounds are clear bilaterally. GI: Abdomen is non-distended, Pt is actively vomiting clear fluid, Abd is non tender X 4 quads. : No signs and/or symptoms were reported regarding the genitourinary system. EENT: No signs and/or symptoms were reported regarding the EENT system. Derm: No signs and/or symptoms reported regarding the dermatologic system. Musculoskeletal: Circulation, motion, and sensation intact. Range of motion: intact in all extremities. 18:20 Reassessment: No changes from previously documented assessment. Patient and/or family em6 updated on plan of care and expected duration. Pain level reassessed. Patient is alert, oriented x 3, equal unlabored respirations, skin warm/dry/pink. 19:00 Reassessment: No changes from previously documented assessment. Patient and/or family ll3 updated on plan of care and expected duration. Pain level reassessed. Patient is alert, oriented x 3, equal unlabored respirations, skin warm/dry/pink. 20:30 Reassessment: No changes from previously documented assessment. Patient and/or family ll3 updated on plan of care and expected duration. Pain level reassessed. Patient is alert, oriented x 3, equal unlabored respirations, skin warm/dry/pink. 21:47 Reassessment: No changes from previously documented assessment. Patient and/or family ll3 updated on plan of care and expected duration. Pain level reassessed. Patient is alert, oriented x 3, equal unlabored respirations, skin warm/dry/pink. 22:46 Reassessment: No changes from previously documented assessment. Patient and/or family ll3 updated on plan of care and expected duration. Pain level reassessed. Patient is alert, oriented x 3, equal unlabored respirations, skin warm/dry/pink. Vital Signs: 16:38 BP 140 / 93; Pulse 76; Resp 20; Temp 98.2; Pulse Ox 100% ; Weight 99.79 kg; Height 5 kb3 ft. 4 in. (162.56 cm); Pain 0/10; 17:10 BP 132 / 87; Pulse 74; Resp 18; Pulse Ox 99% on R/A; em6 21:33 BP 141 / 82; Pulse 67; Resp 18; Pulse Ox 98% on R/A; ll3 22:46 BP 128 / 74; Pulse 71; Resp 18; Pulse Ox 98% on R/A; ll3 16:38 Body Mass Index 37.76 (99.79 kg, 162.56 cm) kb3 ED Course: 15:20 Patient has correct armband on for positive identification. Bed in low position. Call em6 light in reach. Side rails up X 1. 15:20 Pulse ox on. NIBP on. Warm blanket given. em6 16:31 Patient arrived in ED. as 16:31 Samantha Mccray is Private Physician. as 16:42 Annalise Eugene MD is Attending Physician. sd2 16:42 Triage completed. kb3 16:42 Arm band placed on right wrist. kb3 17:54 Inserted saline lock: 22 gauge in left forearm, using aseptic technique. Blood jd3 collected. 18:06 Inserted saline lock: 22 gauge in right antecubital area, using aseptic technique. jd3 18:15 CT Head Brain wo Cont In Process Unspecified. EDMS 19:54 Attending Physician role handed off by Annalise Eugene MD kdr 19:54 Tavares Wright MD is Attending Physician. kdr 21:47 Fredi Yang, SILVIA is Primary Nurse. ll3 22:23 Samantha Mccray is Referral Physician. kdr 22:46 No provider procedures requiring assistance completed. IV discontinued, intact, ll3 bleeding controlled, No redness/swelling at site. Pressure dressing applied. Administered Medications: 18:01 Not Given (Physician Discretion): Zofran (Ondansetron) 4 mg IVP once; over 2 minutes sd2 18:07 Drug: Zofran (Ondansetron) 4 mg Route: IVP; Site: right antecubital; jd3 19:00 Follow up: Response: No adverse reaction em6 18:39 Drug: NS 0.9% 1000 ml Route: IV; Rate: 1000 ml; Site: right antecubital; jd3 19:22 Follow up: Response: No adverse reaction em6 18:39 Drug: Meclizine 25 mg Route: PO; jd3 19:00 Follow up: Response: No adverse reaction em6 18:39 Drug: Reglan (metoCLOPramide) 10 mg Route: IVP; Site: right antecubital; jd3 19:18 Follow up: Response: Nausea is increased; Nausea is increased. patient felt increase em6 heart rate and anxious. provider notified. 18:47 Not Given (Patient Refused): Benadryl (diphenhydrAMINE) 25 mg IVP once jd3 20:23 Not Given (physicians discressionn): Valium (diazepam) 2 mg IVP once ll3 20:30 Drug: Valium (diazepam) 5 mg Route: PO; ll3 21:48 Follow up: Response: No adverse reaction; Nausea is decreased ll3 21:08 Drug: Ketorolac 15 mg Route: IVP; Site: left hand; ll3 21:48 Follow up: Response: No adverse reaction ll3 21:48 Drug: morphine 4 mg Route: IVP; Infused Over: 4 mins; Site: left hand; ll3 22:49 Follow up: Response: No adverse reaction; Pain is decreased ll3 21:48 Drug: Zofran (Ondansetron) 4 mg Route: IVP; Site: left hand; ll3 22:49 Follow up: Response: No adverse reaction; Nausea is decreased ll3 Medication: 15:20 VIS not applicable for this client. em6 Point of Care Testing: Blood Glucose: 16:52 Blood Glucose: 264 mg/dL; kb3 Ranges: Outcome: 22:24 Discharge ordered by . kdr 22:46 Discharged to home ambulatory, with family. ll3 22:46 Condition: stable 22:46 Discharge instructions given to patient, significant other, Instructed on discharge instructions, follow up and referral plans. medication usage, Demonstrated understanding of instructions, follow-up care, medications, Prescriptions given X 1. 22:50 Patient left the ED. ll3 Signatures: Dispatcher [employer] EDMS Tavares Wright MD MD kdr Reymundo, Curt Gomez RN RN jFredi Portillo RN RN 3 Annalise Eugene MD MD sd2 Corrie Dwyer RN RN em6 Deysi Loving, RN RN kb3 Corrections: (The following items were deleted from the chart) 16:45 16:42 Home Meds: progesterone (bulk) 0.25 mg miscellaneous powd 1 tab daily; kb3 kb3 16:45 16:42 Home Meds: spironolactone 25 mg Oral tab 1 tab once daily; kb3 kb3
--- NOTE | 2022-05-31 22:24 | EDPHYS ---
Physician Documentation [facility] Name: Sadia Mcpherson Age: 51 yrs Sex: Female : 1970 Arrival Date: 05/31/2022 Time: 16:31 Bed 18 Private MD: Samantha Mccray ED Physician Tavares Wright HPI: 05/31 17:27 This 51 yrs old Female presents to ER via Ambulatory with complaints of High Blood sd2 Sugar, Nausea/Vomiting, Dizziness. 17:27 51-year-old female with a history of insulin-dependent diabetes presents with chief sd2 complaint of hyperglycemia with associated dizziness. She reports that she "felt off" when she woke up this morning and then began to have dizziness that is worsened with standing or significant head positional changes that caused her to have some nausea and vomiting. She reports her blood sugar was elevated when she woke up at just under 200 when it normally is very well controlled in the low 100s when she wakes up. She states she is very concerned due to having DKA in the past and not wanting to have that happen again. She denies any known fevers or recent illness. She denies any chest pain, shortness of breath, diarrhea or other urinary symptoms. She also complains of a migraine headache which she states she has a history of and normally comes on when she is under increased stress.. 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 kb3 Historical: - Allergies: 16:42 Lamictal; kb3 16:42 Sulfa (Sulfonamide Antibiotics); kb3 16:42 tobramycin; kb3 16:42 Wellbutrin; kb3 - Home Meds: 16:42 aspirin 81 mg Oral chew 1 tab once daily [Active]; Coreg 12.5 mg Oral tab 1 tab 2 times kb3 per day [Active]; levothyroxine 75 mcg tab 1 tab once daily [Active]; Seroquel 100 mg oral tab 1 tab [Active]; simvastatin 20 mg Oral tab 1 tab once daily [Active]; Humalog U-100 Insulin 100 unit/mL Sub-Q crtg [Active]; Remeron 15 mg Oral tab 1 tab once daily [Active]; - PMHx: 16:42 Depression; Hypertension; Hypothyroidism; Kidney stones; IDDM; kb3 - Immunization history:: Adult Immunizations up to date, Client reports having NOT received the Covid vaccine. Last tetanus immunization: up to date. - Social history:: Smoking status: Patient denies any tobacco usage or history of. Patient/guardian denies using alcohol, street drugs. ROS: 17:27 Eyes: Negative for injury, pain, redness, and discharge, ENT: Negative for injury, sd2 pain, and discharge, Cardiovascular: Negative for chest pain, palpitations, and edema, Respiratory: Negative for shortness of breath, cough, wheezing. 17:27 MS/Extremity: Negative for injury and deformity, Skin: Negative for injury, rash, and discoloration. 17:27 Constitutional: Positive for malaise, Negative for body aches, chills, fever. 17:27 Abdomen/GI: Positive for nausea and vomiting, Negative for abdominal pain, diarrhea, rectal bleeding. 17:27 : Positive for Negative for urinary symptoms. 17:27 Neuro: Positive for headache, Negative for altered mental status, loss of consciousness, tingling. Exam: 17:27 Constitutional: This is a well developed, well nourished patient who is awake, alert, sd2 and in no acute distress. Head/Face: Normocephalic, atraumatic. Eyes: EOMI, normal conjunctiva bilaterally Chest/axilla: Normal chest wall appearance and motion. Nontender with no deformity. Cardiovascular: Regular rate and rhythm with a normal S1 and S2. No gallops, murmurs, or rubs. 2+ distal pulses. Respiratory: Lungs have equal breath sounds bilaterally, clear to auscultation and percussion. No rales, rhonchi or wheezes noted. No increased work of breathing, no retractions or nasal flaring. Abdomen/GI: Soft, non-tender, with normal bowel sounds. No guarding or rebound. No evidence of tenderness throughout. Skin: Warm, dry with normal turgor. Normal color with no rashes, no lesions, and no evidence of cellulitis. MS/ Extremity: Pulses equal, no cyanosis. Neurovascular intact. Full, normal range of motion. Ambulatory without difficulty. Neuro: Awake and alert, GCS 15, oriented to person, place, time, and situation. Cranial nerves II-XII grossly intact. Motor strength 5/5 in all extremities. Sensory grossly intact. Cerebellar exam normal. Normal gait. Psych: Awake, alert, with orientation to person, place and time. Behavior, mood, and affect are within normal limits. 19:28 ECG was reviewed by the Attending Physician. NSR, rate 77, no STEMI criteria or ST-T sd2 wave changes Vital Signs: 16:38 BP 140 / 93; Pulse 76; Resp 20; Temp 98.2; Pulse Ox 100% ; Weight 99.79 kg; Height 5 kb3 ft. 4 in. (162.56 cm); Pain 0/10; 17:10 BP 132 / 87; Pulse 74; Resp 18; Pulse Ox 99% on R/A; em6 21:33 BP 141 / 82; Pulse 67; Resp 18; Pulse Ox 98% on R/A; ll3 22:46 BP 128 / 74; Pulse 71; Resp 18; Pulse Ox 98% on R/A; ll3 16:38 Body Mass Index 37.76 (99.79 kg, 162.56 cm) kb3 MDM: 17:27 Patient medically screened. sd2 17:27 Differential diagnosis: DKA, hyperglycemia, vertico, ICH, anemia, dehydration, sd2 electrolyte abnormality among others. Data reviewed: vital signs, nurses notes. 19:28 Counseling: I had a detailed discussion with the patient and/or guardian regarding: the sd2 historical points, exam findings, and any diagnostic results supporting the discharge/admit diagnosis, lab results, radiology results, the need for outpatient follow up, to return to the emergency department if symptoms worsen or persist or if there are any questions or concerns that arise at home. ED course: Labs and imaging reviewed. Labs grossly WNCL aside from hyperglycemia with no evidence of DKA or HHS. Pt with continued vertigo and nausea with migraine headache. Unable to receive Benadryl. Will give TOradol and dose of Valium as patient cannot tolerate oral meclizine at this time and re-evaluate. Pt care to be transferred over to Dr. Wright at this time.. 21:38 ED course: Patient continues to be relatively comfortable though she still has a kdr headache that is on the right side of her head. She states that the headache she has now is not the worst headache of her life. Additionally it is mobile and moves around her head to some extent. She has no nuchal rigidity or photophobia at this time. She does not appear acutely ill. Reviewed her records from prior visits and it appears that normally requires intermittent dosing of narcotics to manage her discomfort.. 05/31 16:57 Order name: Urine Dipstick-Ancillary; Complete Time: 17:11 EDMS 05/31 17:03 Order name: Glucose, Ancillary Testing; Complete Time: 17:11 EDMS 05/31 17:13 Order name: CBC with Diff; Complete Time: 18:32 sd2 05/31 17:13 Order name: CMP; Complete Time: 18:53 sd2 05/31 17:13 Order name: Magnesium; Complete Time: 18:53 sd2 05/31 17:13 Order name: Troponin High Sensitivity; Complete Time: 18:53 sd2 05/31 17:13 Order name: Ketone, Serum; Complete Time: 18:53 sd2 05/31 17:13 Order name: ABG: Venous; Complete Time: 18:01 sd2 05/31 17:27 Order name: CT Head Brain wo Cont; Complete Time: 18:32 sd2 05/31 17:13 Order name: EKG - Nurse/Tech; Complete Time: 18:56 sd2 Administered Medications: 18:01 Not Given (Physician Discretion): Zofran (Ondansetron) 4 mg IVP once; over 2 minutes sd2 18:07 Drug: Zofran (Ondansetron) 4 mg Route: IVP; Site: right antecubital; jd3 19:00 Follow up: Response: No adverse reaction em6 18:39 Drug: NS 0.9% 1000 ml Route: IV; Rate: 1000 ml; Site: right antecubital; jd3 19:22 Follow up: Response: No adverse reaction em6 18:39 Drug: Meclizine 25 mg Route: PO; jd3 19:00 Follow up: Response: No adverse reaction em6 18:39 Drug: Reglan (metoCLOPramide) 10 mg Route: IVP; Site: right antecubital; jd3 19:18 Follow up: Response: Nausea is increased; Nausea is increased. patient felt increase em6 heart rate and anxious. provider notified. 18:47 Not Given (Patient Refused): Benadryl (diphenhydrAMINE) 25 mg IVP once jd3 20:23 Not Given (physicians discressionn): Valium (diazepam) 2 mg IVP once ll3 20:30 Drug: Valium (diazepam) 5 mg Route: PO; ll3 21:48 Follow up: Response: No adverse reaction; Nausea is decreased ll3 21:08 Drug: Ketorolac 15 mg Route: IVP; Site: left hand; ll3 21:48 Follow up: Response: No adverse reaction ll3 21:48 Drug: morphine 4 mg Route: IVP; Infused Over: 4 mins; Site: left hand; ll3 22:49 Follow up: Response: No adverse reaction; Pain is decreased ll3 21:48 Drug: Zofran (Ondansetron) 4 mg Route: IVP; Site: left hand; ll3 22:49 Follow up: Response: No adverse reaction; Nausea is decreased ll3 Point of Care Testing: Blood Glucose: 16:52 Blood Glucose: 264 mg/dL; kb3 Ranges: Critical Glucose Levels:Adult <50 mg/dl or >400 mg/dl <40 mg/dl or >180 mg/dl Disposition Summary: 05/31/22 22:24 Discharge Ordered Location: Home kdr Problem: an acute exacerbation kdr Symptoms: have improved kdr Condition: Stable kdr Diagnosis - Dizziness and giddiness kdr - Headache kdr - Hypertensive heart disease without heart failure kdr Followup: kdr - With: Samantha Mccray - When: 2 - 3 days - Reason: If symptoms return, Further diagnostic work-up, Recheck today's complaints, Continuance of care, Re-evaluation by your physician Discharge Instructions: - Discharge Summary Sheet kdr - General Headache Without Cause kdr - Hypertension, Adult, [id number] kdr - Dizziness, [id number] kdr Forms: - Medication Reconciliation Form kdr - Thank You Letter kdr Prescriptions: - Meclizine 25 mg Oral Tablet - take 1 tablet by ORAL route every 8 hours As needed; 15 tablet; Refills: 0, kdr Product Selection Permitted Signatures: Dispatcher [employer] Tavares Npaier MD MD kdr Curt Carmichael RN RN jd3 Fredi Yang RN RN ll3 Annalise Eugene MD MD sd2 Deysi Loving RN RN kb3 Corrie Dwyer RN em6 Corrections: (The following items were deleted from the chart) 16:45 16:42 Home Meds: progesterone (bulk) 0.25 mg miscellaneous powd 1 tab daily; kb3 kb3 16:45 16:42 Home Meds: spironolactone 25 mg Oral tab 1 tab once daily; kb3 kb3 19:18 19:14 ED course: Discussed case with GI physician at [facility] and hospitalist from a [facility] different group, Dr. Hogue, who accepts the transfer at this time. . [facility]
[2022-06-01 01:02] VITALS: TEMP 98.2
[2022-06-01 01:06] VITALS: O2SAT 98
[2022-06-01 01:08] VITALS: BP 128/74
--- NOTE | 2022-06-02 08:11 | EKG ---
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
== END 2022-05-31 22:50 | disposition home or self-care (01) ==
LOC: ER 16:30
DX: R42 Dizziness and giddiness (principal); R51.9 Headache, unspecified; I11.9 Hypertensive heart disease without heart failure; E11.9 Type 2 diabetes mellitus without complications; Z79.4 Long term (current) use of insulin; E03.9 Hypothyroidism, unspecified; F32.A Depression, unspecified; Z79.82 Long term (current) use of aspirin; Z88.2 Allergy status to sulfonamides; Z88.3 Allergy status to other anti-infective agents; Z88.8 Allergy status to other drugs, medicaments and biological substances
CPT/HCPCS: 93005; 85025; 36415; 82010; 83735; 82947; 81003; 84484; 80053; 70450; 82805; 99284; J2765; J8597; J7030; J2405 ×2; J1200

== ENCOUNTER 2022-06-13 12:46 | Emergency (ER) | payer OTHER ==
--- OUTSIDE RECORDS SUMMARY | 2022-06-13 12:50 | XMS REPORT | Continuity of Care Document ---
:1970 Author Organization [facility] t Address [address] [place] [address] Care Team Providers Name Role Phone Samantha Foster MD Primary Care Physician [phone] SAMANTHA FOSTER Attending Clinician Unavailable BUCK MERCER Attending Clinician Unavailable MD DAKSHA Attending Clinician Unavailable LAB90 Attending Clinician Unavailable Lance EID, Dolly Attending Clinician Samantha Foster MD Attending Clinician [phone] Buck Mercer DO Attending Clinician Esther Kinsey Attending Clinician Gordon EID, Chrissy Garcia Attending Clinician [phone] Man VEGA, Heather Raymundo Attending Clinician Unavailable Yazan EID, Arcenio Attending Clinician Bruce Guardado MD, Huy Mcmullen Attending Clinician [phone] Alivia Clark MD Attending Clinician Lucía Borrego Attending Clinician Bruce Guardado MD, Huy Mcmullen Admitting Clinician Payers Payer Name Policy Type Policy Number Effective Date Expiration Date Jared jeong MEDICARE PART B GERARDO [id number] [facility] MEDICARE 7 [id number] 2022 [id number] GOLD 00:00:00 PLUS 2021 Problems Condition Condition Condition Status Onset Resolution Last Treating Co mments Source Name Details Category Date Date Treatment Clinician Date Hyperlipid Hyperlipid Disease Active Damir phelan emia emia 5-17 Seybold 00:00: 00 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 4-19 Seybol d mellitus mellitus 00:00: without without 00 complicati complicati on, with on, with half-way half-way current current 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 use 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 Zak sey current current 4-19 Seybold use of use of 00:00: insulin insulin 00 Hypothyroi Hypothyroi Disease Active Damir salomóntaylor dism dism 4-19 Seybold (acquired) (acquired) 00:00: 00 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 4-19 Se ybold in in 00:00: remission remission 00 Acquired Acquired Disease Active Unive rs hypothyroi hypothyroi 6-09 it y of dism dism 00:00: Medical Branch Dyslipidem Dyslipidem Disease Active U brenda ia ia 6-09 ity of 00:00: [facility] Vitamin D Vitamin D Disease Active Uni vers deficiency deficiency 5-06 it y of 00:00: [facility] Elevated Elevated Disease Active Unive rs liver liver 5-05 ity of enzymes enzymes 00:00: [facility] Uncontroll Uncontroll Disease Active U brenda ed type 2 ed type 2 4-20 ity of diabetes diabetes 00:00: [place] mellitus mellitus 00 Medica l with with Branch insulin insulin therapy therapy DKA, type DKA, type Disease Active Uni vers 2, not at 2, not at 4-20 ity of goal goal 00:00: Medical Branch Lumbar Lumbar Disease Active Overview: Univer s spondylosi spondylosi 04-11 Formattin ity of s s 00:00: g of this [place] 00 note Medical might be Branch different from the original. Added automatic ally from request for surgery [id number] Menorrhagi Menorrhagi Disease Active U nivers a [...] uterus 00:00: g of this [place] note Medical might be Branch different from [...] of human human 00:00: g of this [place] papillomav papillomav 00 note Me dical irus (HPV) irus (HPV) might be Branch DNA test DNA test different positive positive from the original. 10/28/18 - pap smear normal; HPV 16 positive - colposcop y normal. ECC benign. 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 1-17 ity of 00:00: [place] [facility] Bilateral Bilateral Disease Active Uni vers lower lower 7-20 [place]y of extremity extremity [place] edema edema [place] Overweight Overweight Disease Active U brenda (BMI (BMI 7-20 ity of 25.0-29.9) 25.0-29.9) 00:00: [place] [facility] [place] Low back Low back Disease Active Unive rs pain pain 3-14 ity of 00:00: [place] 00 Medical Branch Hydronephr Hydronephr Disease Active U nivers osis osis 3-14 ity of 00:00: [place] 00 Medical Branch History of History of Disease Active U nivers urinary urinary 3-14 ity of stone stone 00:00: [place] 00 Medical [place] Loss of Loss of Disease Active Univers muscle muscle 3-14 ity of tone of tone of 00:00: [place] bladder bladder 00 [facility] Staph skin Staph skin Disease Active U nivers infection infection ity of [facility] Prediabete Prediabete Disease Active U nivers s s ity of [facility] No known No known Disease Kelse y active active Seybold problems problems Allergies, Adverse Reactions, Alerts Allergy Allergy Status Severity Reaction(s) Onset Inactive Treating Comm ents Source Name Type Date Date Clinician Minocycl Propensi Active Rash Univer s ine ty to 11 ity of adverse 00:00: [place] reaction Medical s Branch Bupropio Propensi Active Swelling Univ ers n ty to 04-21 ity of adverse 00:00: [place] reaction 00 Medical s Branch Sulfa Propensi Active Rash Univers (Sulfona ty to 04-21 ity of mide adverse 00:00: [place] Antibiot reaction 00 Medica l ics) s Branch Lamotrig Propensi Active Rash Alexandre Reema ine ty to 04-21 Supa Seybold adverse 00:00: reaction 00 s Minocycl Propensi Active Rash Reema ine ty to 04-21 Seybold adverse 00:00: reaction 00 s Sulfa Propensi Active Rash Reema Drugs ty to 711 Seybold adverse 00:00: reaction 00 s Minocycl Drug Active Rash [facility] Sulfa Drug Active Rash Rash and [facility] (Sulfona Allergy 612 throat [facility] mide 00:00: swelling Medical Antibiot 00 Center ics) Tobramyc Drug Active Rash [facility] 6[facility] MINOCYCL Allergy Active Low Rash [facility] INE 6[facility]12 [facility] SULFA Allergy Active Low Rash [facility] (SULFONA 03-23 [facility] MIDE 00:00: Medical ANTIBIOT 00 Center ICS) TOBRAMYC Allergy Active Low Rash [facility] IN 03-23 [facility] Bupropio Drug Active Other - See Uni vers n Hcl Allergy comments 10-12 ity of 00:00: [place] [facility] Branch Sulfamet Drug Active Other - See Uni vers hoxazole Allergy comments 10-12 ity o f 00:00: Medical Branch Tobramyc Drug Active Unknown - Unive rs in Allergy See comments 10-12 ity of 00:00: Medical Branch Bupropio Propensi Active Other Reema n ty to 10-12 Seybold adverse 00:00: reaction 00 s Doxycycl Propensi Active Rash Reema ine ty to 10-12 Seybold Monohydr adverse 00:00: ate reaction 00 s Tobramyc Propensi Active Other Reema in ty to 10-12 reaction( Seybold adverse 00:00: s): reaction 00 Unknown - s See comments Social History Social Habit Start Date Stop Date Quantity Comments Source Tobacco use and 2022-01-28 2022-01-28 Smokeless tobacco Ke lsey Seybold exposure 00:00:00 00:00:00 non-user Alcohol intake 2013-03-23 2013-03-[address] [facility] [facility] 00:00:00 00:00:00 non-drinker of Medical Ce nter alcohol (finding) Sex Ass[birth year] At [birth year] [place] 00:00:00 00:00:00 Hospital Smoking Status Start Date Stop Date Source Tobacco smoking consumption unknown [facility] Never smoked tobacco Reema Seyb old Medications Ordered Filled Start Stop Current Ordering Indication Dosage Frequency Signature Comments Components Source Medication Medication Date Date Medication? Clinician (SIG) Name Name Aspirin 81 Yes 81mg Take 81 mg K elsey MG oral 6-06 by mouth Seybold Chewable 14:50: daily Tablet 32 Clonazepam 2021- Yes .125mg Q.5D Take 0.125 Reema 0.125 MG 6-06 mg by Seybold oral TABLET 14:50: mouth as DISPERSIBLE 32 needed in the morning and 0.125 mg as needed in the evening. Quetiapine Yes [id number] 100mg Take 1 Reema Fumarate 6-01 tablet [...] Chewable 08:17: daily Tablet 16 Insulin Yes [id number] 12U Inject 12 Reema Glargine 5-17 units into Seybo ld (Lantus 00:00: the skin SoloStar) 00 daily 100 UNIT/ML subcutaneou s Solution Pen-injecto r Insulin Yes [id number] 12U Inject 12 Reema Glargine 5-17 units into Seybo ld (Lantus 00:00: the skin SoloStar) 00 daily 100 UNIT/ML subcutaneou s Solution Pen-injecto r Pantoprazol Yes 40mg Take 40 mg Reema e Sodium 40 5-16 by mouth Seyb old MG oral 00:00: daily Tablet 00 Delayed Response Pantoprazol Yes Reema e Sodium 40 5-16 Seybold MG oral 00:00: Tablet 00 Delayed Response VALACYCLOVI 0 Yes [id number] TAKE ONE Univers R 500 mg 5-16 TABLET BY ity of tablet 00:00: MOUTH [place] 00 DAILY Medical Branch Carvedilol Yes 25mg 25 mg in Zak sey 25 MG oral 5-12 the Seybold Tablet 00:00: morning 00 and 25 mg in the evening. Take with meals. Carvedilol Yes Reema 25 MG oral 5-12 Seybold Tablet 00:00: 00 Levothyroxi Yes [id number] 137ug Take 1 Reema ne Sodium 5-05 tablet Seybold 137 MCG 00:00: (137 mcg oral Tablet 00 total) by mouth daily Levothyroxi Yes [id number] 137ug Take 1 Reema ne Sodium 5-05 tablet Seybold 137 MCG 00:00: (137 mcg oral Tablet 00 total) by mouth daily Quetiapine Yes 1{tbl} Take 1 Zak sey Fumarate 5-04 tablet by Seybol d 300 MG oral 13:58: mouth Tablet 17 Aspirin 81 2021-0 Yes 81mg Take 81 mg K elsey MG oral 5-04 by mouth Seybold Chewable 13:58: daily Tablet 17 Duloxetine Yes 1{capsu 1 capsule Reema HCl 30 MG 4-19 le} Seybold oral Cap DR 13:39: Particles 53 Quetiapine Yes 1{tbl} Take 1 Zak sey Fumarate 4-19 tablet by Seybol d 300 MG oral 13:39: mouth Tablet 53 Aspirin 81 0 Yes 81mg Take 81 mg K elsey MG oral 4-19 by mouth Seybold Chewable 13:39: daily Tablet 53 Valacyclovi Yes 1{tbl} Take 1 Ke lsey r HCl 500 4-12 tablet by Seybo ld MG oral 00:00: mouth Tablet 00 daily Valacyclovi 0 Yes 1{tbl} Take 1 Ke lsey r HCl 500 4-12 tablet by Seybo ld MG oral 00:00: mouth Tablet 00 daily Valacyclovi 0 Yes 1{tbl} Take 1 Ke lsey r HCl 500 4-12 tablet by Seybo ld MG oral 00:00: mouth Tablet 00 daily Valacyclovi 0 Yes 1{tbl} Take 1 Ke lsey r HCl 500 4-12 tablet by Seybo ld MG oral 00:00: mouth Tablet 00 daily Lantus Yes 12U Inject 12 Reema SoloStar 4-01 units into Seybo ld 100 UNIT/ML 00:00: the skin subcutaneou 00 daily s Solution Pen-injecto r Lantus 0 Yes 12U Inject 12 Reema SoloStar 4-01 units into Seybo ld 100 UNIT/ML 00:00: the skin subcutaneou 00 daily s Solution Pen-injecto r Lantus 2021- No 12U Inject 12 Kelse y SoloStar 01-10 05-17 units into Seyb old 100 UNIT/ML 00:00: 00:00 the skin subcutaneou 00 :00 daily s Solution Pen-injecto r aspirin 81 Yes 81mg Take 81 mg U nivers mg chewable 3-24 by mouth ity of tablet 13:15: daily. [address] desvenlafax Yes 1{tbl} Take 1 Un fernanda ine 3-24 tablet by ity of succinate 13:15: mouth [place] (PRISTIQ) 54 daily. Medical 25 mg Tb24 [...] 500 mg ity of tablet 13:15: tablet [address] aspirin 81 Yes aspirin 81 U nivers mg EC 3-24 mg ity of tablet 13:15: tablet,[place] [address] ayed Medical release Branch Take 1 tablet every day by oral route. carvediloL Yes Coreg 25 Uni vers (COREG) 25 3-24 mg tablet ity of mg tablet 13:15: Take 1 [place] [address] tablet Medical twice a Branch day by oral route. simvastatin Yes simvastati Univers 20 mg 3-24 n 20 mg ity of tablet 13:15: tablet [address] traZODone Yes trazodone Uni vers 50 mg 3-24 50 mg ity of tablet 13:15: tablet [address] desvenlafax Yes Univer s ine 3-24 ity of succinate 13:15: [place] (PRISTIQ) 54 Medical 25 mg Tb24 Branch QUEtiapine Yes Seroquel Uni vers (SEROQUEL) 3-24 200 mg ity of 200 mg 13:15: tablet [place] tablet 54 Take 1 Medical tablet Branch twice a day by oral route. levothyroxi Yes levothyrox Univers ne 50 mcg 3-24 ine 50 mcg ity of tablet 13:15: tablet [place] 54 Medical Branch Metformin 2021-0 Yes metformin Zak sey HCl 500 MG 2-24 500 mg Seybold oral Tablet 00:00: tablet 00 Metformin 0 Yes metformin Zak sey HCl 500 MG 2-24 500 mg Seybold oral Tablet 00:00: tablet 00 Metformin 0 Yes metformin Zak sey HCl 500 MG 2-24 500 mg Seybold oral Tablet 00:00: tablet 00 Metformin 0 Yes 500mg Take 500 Zak sey HCl 500 MG 2-24 mg by Seybold oral Tablet 00:00: mouth 00 daily (with breakfast) metFORMIN Yes 500mg Take 1 Unive rs 500 mg 2-24 tablet by ity of tablet 00:00: mouth [place] 00 every Medical evening. Branch hydrOXYzine Yes [id number] 25mg Take 1 Univers 25 mg 1-29 tablet by ity of tablet 00:00: mouth [place] 00 every 6 Medical (six) Branch hours as needed for Itching or Anxiety. methylPREDN Yes [id number] Take by Univers ISolone 1-29 mouth ity of (MEDROL, 00:00: SEE-INSTRU Anton as MIRACLE,) 4 mg 00 CTIONS. Medica l tablets follow Branch package directions ciprofloxac Yes TAKE ONE Un fernanda in [...] 6 Medical HOURS Branch NEEDED FOR PAIN levothyroxi Yes [id number] 125ug Take 1 Univers ne 125 mcg 1-12 tablet by ity of tablet 00:00: mouth [place] 00 every Medical morning. Branch simvastatin Yes [id number] 20mg Take 1 Univers 20 mg 1-12 tablet by ity of tablet 00:00: mouth at [place] 00 bedtime. Medical Branch Insulin Yes [id number] 15U inject 15 Univers Glargine 1-12 Units [...] mouth Seybo ld Tablet 00:00: nightly 00 methocarbam 2020-10 Yes [id number] 500mg Take 1 Univers oL 2-24 tablet by ity of (ROBAXIN) 00:00: mouth 4 [place] 500 mg 00 (four) Medical tablet times Branch daily. phenazopyri 2020-10 Yes [id number] 200mg Take 2 Univers dine 100 mg 2-24 tablets by it y of tablet 00:00: mouth 3 [place] 00 (three) Medical times Branch daily. carvediloL 2020-10 Yes [id number] 25mg Take 1 U nivers 25 mg 1-16 tablet by ity of tablet 00:00: mouth 2 [place] 00 (two) Medical times Branch daily. clobetasoL 2020-10 Yes [id number] Apply to Univers 0.05 % 0-05 area(s) 2 ity of ointment 00:00: (two) [place] 00 times Medical daily. Branch OMEPRAZOLE Yes [id number] TAKE ONE Univers 40 mg 9-30 CAPSULE BY ity of capsule 00:00: MOUTH [place] 00 DAILY Medical Branch blood sugar Yes [id number] 1{strip 1 Strip Univers diagnostic 5-24 } before ity of (BLOOD 00:00: meals and [place] GLUCOSE 00 at Medical TEST) strip bedtime. Bran ch Check glucose once daily before breakfast; Diagnosis code R73.03 Blood-Gluco Yes [id number] Check U nivers se Meter 4-20 glucose ity of Kit 00:00: once daily [place] 00 before Medical breakfast; Branch Diagnosis code R73.03 Lancets 2019-10 Yes [id number] Check Univ ers Misc 1-18 glucose ity of 00:00: once daily [place] 00 before Medical breakfast; Branch Diagnosis code R73.03 QUEtiapine Yes Univers 300 mg 1-10 ity of tablet 00:00: [place] 00 Medical Branch TIZANIDINE Yes Take by [facility]-12 [facility] (ZANAFLEX 04:13: Medical ORAL) 45 Center methocarbam Yes 750mg Q.25D Take [address] [facility] ol 6-12 mg by [facility] (ROBAXIN) 04:13: mouth 4 Medic al 750 MG 45 (four) Center tablet times daily. carvedilol Yes 12.5mg Take 12.[address] [facility] (COREG) 6-12 mg by [facility] 12.5 MG 04:13: mouth 2 Medical tablet 45 (two) Center times daily with breakfast and dinner. clonazePAM Yes 1mg Take [address] (KLONOPIN) 6-12 by mouth 2 Therese es 1 MG tablet 04:13: (two) Medic al 45 times Center daily as needed. DULoxetine Yes 30mg QD Take [address] (CYMBALTA) 6-12 by mouth [facility] 30 MG 04:13: daily. Medical capsule 45 Center Vital Signs Vital Name Observation Time Observation Value Comments Source Systolic blood pressure 2022-03-17 19:42:00 112 mm[Hg] [place] Diastolic blood 2022-03-17 19:42:00 64 mm[Hg] Kelse [...] Seybold Body height 2022-02-25 13:19:00 162.6 cm Reema S eybold Body weight 2022-02-25 13:19:00 100.971 kg Reema S eybold BMI 2022-02-25 13:19:00 38.21 kg/m2 Reema S eybold Oxygen saturation in 2022-02-25 13:19:00 99 /min Reema Seybold Arterial blood by Pulse oximetry Systolic blood pressure 2022-02-12 18:51:00 114 mm[Hg] Reema Seybold Diastolic blood 2022-02-12 18:51:00 66 mm[Hg] Kelse y Seybold pressure Heart rate 2022-02-12 18:51:00 76 /min Reema S eybold Body temperature 2022-02-12 18:51:00 36 Lynette Kaykay ey Seybold Respiratory rate 2022-02-12 18:51:00 14 /min Kaykay ey Seybold Body height 2022-02-12 18:51:00 162.6 cm Reeam S eybold Body weight 2022-02-12 18:51:00 100.699 kg Reema sain[place]aston BMI 2022-02-12 18:51:00 38.11 kg/m2 Reema sainiboeaston Systolic blood pressure 2022-01-28 18:35:00 127 mm[Hg] Reema Seybold Diastolic blood 2022-01-28 18:35:00 76 mm[Hg] Kelse y Seybold pressure Heart rate 2022-01-28 18:35:00 72 /min Reema saniiboeaston Body temperature 2022-01-28 18:35:00 36.61 Lynette Kaykay saini Seybce Respiratory rate 2022-01-28 18:35:00 14 /min Kaykay saini Seybce Body height 2022-01-28 18:35:00 162.6 cm Reema sainiboeaston Body weight 2022-01-28 18:35:00 101.152 kg Reema sainiboeaston BMI 2022-01-28 18:35:00 38.28 kg/m2 Reema de leon Procedures This patient has no known procedures. Encounters Start End Encounter Admission Attending Care Care Encounter Source Date/Time Date/Time Type Type Clinicians Facility Department ID 2022-01-10 Outpatient [facility] [id number] [place] 13:15:51 [id number] [facility] 2022-01-08 [facility] [id number] [place] 12:03:37 [id number] [facility] 2022-08-28 2022-08-28 Outpatient REEMA FOSTER [id number] Reema 13:45:00 13:45:00 SAMANTHA Seybol d 2022-08-07 2022-08-07 Outpatient BUCK MERCER [id number] Reema 14:00:00 14:00:00 Seybol d 2022-07-14 2022-07-14 Outpatient BUCK MERCER [id number] Reema 13:30:00 13:30:00 Seybol d 2022-06-13 2022-06-13 Outpatient REEMA FOSTER [id number] Reema 00:00:00 00:00:00 SAMANTHA Seybol d 2022-06-13 2022-06-13 Outpatient BUCK MERCER REEMA MOJICA [id number] Reema 00:00:00 00:00:00 Seybol d 2022-06-12 2022-06-12 Outpatient BUCK MERCER REEMA MOJICA [id number] Reema 09:45:00 09:45:00 Seybol d 2022-06-10 2022-06-10 Outpatient REEMA FOSTER [id number] Reema 00:00:00 00:00:00 SAMANTHA Seybol d 2022-06-04 2022-06-04 Outpatient BUCK MERCER REEMA MOJICA [id number] Reema 00:00:00 00:00:00 Seybol d 2022-06-04 2022-06-04 Outpatient REEMA FOSTER [id number] Reema 00:00:00 00:00:00 SAMANTHA Seybol d 2022-06-02 2022-06-02 Outpatient REEMA FOSTER [id number] Reema 00:00:00 00:00:00 SAMANTHA Seybol d 2022-05-26 2022-05-26 Outpatient MYZAKSEYONBrenane REEMA MOJICA [id number] Reema 00:00:00 00:00:00 MD KYLAH Seybol d 2022-05-22 2022-05-22 Outpatient BUCK MERCER REEMA MOJICA [id number] Reema 00:00:00 00:00:00 Seybol d 2022-05-21 2022-05-21 Outpatient LAB90 REEMA MOJICA [id number] Reema 14:50:00 14:50:00 Seybol d 2022-05-19 2022-05-19 Outpatient REEMA FOSTER [id number] Reema 00:00:00 00:00:00 SAMANTHA Seybol d 2022-04-24 2022-04-24 MONIK Gutierrez [id number] Univers 00:00:00 00:00:00 [facility] [id number] it y of [place] 4.2.7.2.686 Anton as DIANN?BLEA [id number] [address] MEDICAL OFFICE BUILDING 2022-04-23 2022-04-23 Outpatient REEMA FOSTER [id number] Reema 00:00:00 00:00:00 SAMANTHA Seybol d 2022-04-15 2022-04-15 Office Neo Foster [id number] Reema 13:30:00 14:00:00 Visit Samantha Cavanaugh [id number] Se ybold Somogyi [id number] 2022-04-09 2022-04-09 Office Buck Mercer [id number] Reema 14:30:00 15:00:00 Visit Chery LIZARRAGA [id number] Se ybold [id number] 2022-04-01 2022-04-01 Outpatient REEMA FOSTER [id number] Reema 00:00:00 00:00:00 SAMANTHA Seybol d 2022-03-17 2022-03-17 Office Neo Foster [id number] Reema 14:45:00 15:00:00 Visit Samantha Cavanaugh [id number] Se ybold Somogyi 1.2.7.2.686 [id number] 2022-02-25 2022-02-25 Outpatient LAB90 REEMA MOJICA [id number] Reema 09:10:00 09:10:00 Seybol d 2022-02-25 2022-02-25 Office Neo Foster [id number] Reema 08:30:00 08:45:00 Visit Samantha Cavanaugh [id number] Se ybold Somogyi [id number] [id number] 2022-02-21 2022-02-21 Outpatient REEMA FOSTER [id number] Reema 00:00:00 00:00:00 SAMANTHA Seybol d 2022-02-18 2022-02-18 Outpatient REEMA FOSTER [id number] Reema 00:00:00 00:00:00 SAMANTHA Seybol d 2022-02-13 2022-02-13 Outpatient REEMA FOSTER [id number] Reema 00:00:00 00:00:00 SAMANTHA Seybol d 2022-02-13 2022-02-13 Outpatient KRISTIN REEMA MOJICA [id number] Reema 00:00:00 00:00:00 SAMANTHA Seybol d 2022-02-12 2022-02-12 Outpatient LAB90 REEMA MOJICA [id number] Reema 14:45:00 14:45:00 Seybol d 2022-02-12 2022-02-12 Office Neo Foster [id number] Reema 14:00:00 14:30:00 Visit Samantha Cavanaugh [id number] Se ybold Somogyi [id number] 2022-02-11 2022-02-11 Outpatient REEMA FOSTER [id number] Reema 00:00:00 00:00:00 SAMANTHA Seybol d 2022-02-07 2022-02-07 Outpatient KRISTIN REEMA MOJICA [id number] Reema 00:00:00 00:00:00 SAMANTHA Seybol d 2022-01-29 2022-01-29 Outpatient REEMA FOSTER [id number] Reema 00:00:00 00:00:00 SAMANTHA Seybol d 2022-01-28 2022-01-28 Outpatient LAB90 REEMA MOJICA [id number] Reema 14:25:00 14:25:00 Seybol d 2022-01-28 2022-01-28 Office Neo FOSTER [id number] Reema 13:30:00 13:30:00 Visit SAMANTHA Cavanaugh [id number] Se ybold [id number] 2021-02-07 2021-02-07 Telephone [facility] [id number] 00:00:00 00:00:00 [facility] [id number] [place] 4.2.7.2.686 Professio [id number] nal 0[address] 2021-02-07 2021-02-07 Emergency [facility] [id number] [place] 00:00:00 00:00:[address] 2021-02-01 2021-02-01 Telephone MONIK Leyva 1.2.840.114 [id number] 00:00:00 00:00:00 Chirssy SANCHEZ [id number] Radha PERRY 4.2.7.2.686 [place] [id number] AND KAY [facility] 2021-02-01 2021-02-01 Transition Sommer Conway 1.2.840.114 [id number] 00:00:00 00:00:00 of Care Heather Juan [id number] Jamarc[place] 4.2.7.2.686 [id number] 2021-01-29 2021-01-31 Hospital Arcenio Hand [id number] 16:44:00 17:15:00 Encounter Huy Barrera 350.1.13. 10 [facility] 4.2.7.2.686 [id number] 2021-01-29 2021-01-29 Office Samantha [facility] [id number] [id number] 15:27:18 16:23:45 Visit [facility] [id number] Adia 4.2.7.2.686 Vinnie [id number] nal 044 Office [address] One Results This patient has no known results.
[2022-06-13 13:50] LABS: Absolute Lymphocytes (CBC) 1.2 K/uL (0.7-4.9); Hematocrit 44.8 % (36.0-45.0); Lymphocytes % 11.3 % (15.3-44.8); MCV 87.8 fL (80-100); MPV 8.4 fL (7.6-11.3)
[2022-06-13] MEDS ORDERED: DIPHENHYDRAMINE 50 MG/ML VIAL ONE (16:10)
[2022-06-13] MEDS ORDERED: ONDANSETRON 4 MG/2 ML VIAL ONE (16:11)
[2022-06-13] MEDS ORDERED: NA CHLORIDE 0.9% 1,000 ML ONE ×2 (16:11→19:00)
[2022-06-13] MEDS ORDERED: KETOROLAC 30 MG/ML INJ ONE (16:11)
[2022-06-13 16:13] LABS: Urine Blood Trace-intact (Negative); Urine Glucose 3+ (Negative); Urine Protein Negative (Negative); Urine Specific Gravity 1.015 (1.005-1.030); Urine pH 6.5 (5.0-7.0)
[2022-06-13] MEDS ORDERED: PROMETHAZINE INJ 25 MG/ML AMP ONE ×3 (16:45→18:59)
[2022-06-13] MEDS ORDERED: MORPHINE 4 MG/ML SYR ONE ×2 (17:37→18:59)
[2022-06-13 17:47] LABS: BUN Blood Urea Nitrogen 18 mg/dL (7-18); Bicarbonate 24 mmol/L (21-32); Glomerular Filtration Rate 57 ml/min (=/>90); Potassium 4.5 mmol/L (3.5-5.1); Sodium Level 127 mmol/L (136-145)
[2022-06-13 17:48] LABS: Glucose Level 611 mg/dL (74-106)
[2022-06-13] MEDS ORDERED: INSULIN -REGULAR HUMAN 50 UNIT/0.5 ML ML ONE (18:14)
--- NOTE | 2022-06-13 20:33 | EDPHYS ---
Physician Documentation [facility] Name: Sadia Mcpherson Age: 51 yrs Sex: Female : 1970 Arrival Date: 06/13/2022 Time: 12:47 Bed 6 Private MD: Samantha Mccray ED Physician Karl Headley HPI: 06/13 19:07 This 51 yrs old Female presents to ER via Ambulatory with complaints of High Blood kb Sugar, Nausea/Vomiting, Headache. 19:07 The patient has experienced similar episodes in the past. The patient has not recently kb seen a physician. Pt reports migraine with nausea and vomiting, as well as, uncontrolled blood sugar. . 19:08 The patient complains of pain to the forehead. The patient describes the headache as kb constant, throbbing. Onset: The symptoms/episode began/occurred 2 day(s) ago. Associated signs and symptoms: Pertinent positives: nausea, vomiting. Severity of symptoms: At its worst the pain was moderate, in the emergency department the pain is unchanged. Headache History: The patient has had previous headaches and this one is similar to previous episodes. The symptoms are alleviated by nothing. the symptoms are aggravated by nothing. REIMBURSEMENT REP: 13:09 LMP N/A - Post-menopause bm7 Historical: - Allergies: 13:12 Lamictal; bm7 13:12 Sulfa (Sulfonamide Antibiotics); bm7 13:12 tobramycin; bm7 13:12 Wellbutrin; bm7 - Home Meds: 13:12 aspirin 81 mg Oral chew 1 tab once daily [Active]; Coreg 12.5 mg Oral tab 1 tab 2 times bm7 per day [Active]; Humalog U-100 Insulin 100 unit/mL Sub-Q crtg [Active]; levothyroxine 75 mcg tab 1 tab once daily [Active]; progesterone (bulk) 0.25 mg miscellaneous powd 1 tab daily [Active]; Remeron 15 mg Oral tab 1 tab once daily [Active]; Seroquel 100 mg Oral tab 1 tab [Active]; simvastatin 20 mg Oral tab 1 tab once daily [Active]; spironolactone 25 mg Oral tab 1 tab once daily [Active]; - PMHx: 13:12 Depression; Hypertension; Hypothyroidism; bm7 13:13 IDDM; bm7 - PSHx: 13:13 Lithotripsy; bm7 - Immunization history:: Adult Immunizations up to date, Client reports having NOT received the Covid vaccine. - Social history:: Smoking status: Patient denies any tobacco usage or history of. ROS: 19:06 Constitutional: Negative for fever, chills, and weight loss. kb 19:06 Abdomen/GI: Positive for nausea and vomiting, Negative for abdominal pain. 19:06 Neuro: Positive for headache. 19:06 All other systems are negative. Exam: 19:07 Constitutional: This is a well developed, well nourished patient who is awake, alert, kb and in no acute distress. Head/Face: Normocephalic, atraumatic. ENT: Moist Mucous membranes Cardiovascular: Regular rate and rhythm with a normal S1 and S2. No gallops, murmurs, or rubs. No pulse deficits. Respiratory: Respirations even and unlabored. No increased work of breathing. Talking in full sentences Abdomen/GI: Soft, non-tender. No distention Skin: Warm, dry with normal turgor. Normal color. MS/ Extremity: Pulses equal, no cyanosis. Neurovascular intact. Full, normal range of motion. Neuro: Awake and alert, GCS 15, oriented to person, place, time, and situation. Moves all extremities. Normal gait. Psych: Awake, alert, with orientation to person, place and time. Behavior, mood, and affect are within normal limits. Vital Signs: 13:09 BP 176 / 107; Pulse 78; Resp 16; Temp 98.3(TE); Pulse Ox 100% on R/A; Weight 97.52 kg bm7 (R); Height 5 ft. 4 in. (162.56 cm); Pain 10/10; 16:30 BP 139 / 80; Pulse 67; ll1 17:22 BP 130 / 75; Pulse 76; Pulse Ox 98% ; ll1 18:17 BP 138 / 66; Pulse 67; Resp 17; Pulse Ox 97% on R/A; Pain 7/10; ll1 19:18 BP 116 / 79; Pulse 72; Resp 17 S; Pulse Ox 98% on R/A; ha1 21:15 BP 150 / 86; Pulse 62; Resp 17 S; Pulse Ox 98% on R/A; Pain 3/10; ha1 13:09 Body Mass Index 36.90 (97.52 kg, 162.56 cm) bm7 MDM: 13:10 Patient medically screened. kb 19:06 Data reviewed: vital signs, nurses notes. Data interpreted: Pulse oximetry: on room air kb is 97 %. Interpretation: normal. Counseling: I had a detailed discussion with the patient and/or guardian regarding: the historical points, exam findings, and any diagnostic results supporting the discharge/admit diagnosis, lab results, the need for outpatient follow up, a family practitioner, to return to the emergency department if symptoms worsen or persist or if there are any questions or concerns that arise at home. ED course: Corrected sodium 139. 06/13 13:11 Order name: CBC with Diff; Complete Time: 13:53 kb 06/13 13:11 Order name: Basic Metabolic Panel; Complete Time: 17:50 kb 06/13 13:11 Order name: Acetone, Serum; Complete Time: 17:50 kb 06/13 13:13 Order name: Glucose, Ancillary Testing; Complete Time: 13:15 EDMS 06/13 16:14 Order name: Urine Dipstick-Ancillary; Complete Time: 16:25 EDMS 06/13 19:05 Order name: Glucose, Ancillary Testing; Complete Time: 19:05 EDMS 06/13 20:17 Order name: Glucose, Ancillary Testing; Complete Time: 20:32 EDMS 06/13 13:11 Order name: Urine Dipstick-Ancillary (obtain specimen); Complete Time: 16:08 kb 06/13 13:11 Order name: IV Start; Complete Time: 15:59 kb 06/13 14:05 Order name: Labs - recollect needed: recollect green top/ having trouble with eb specimen.; Complete Time: 16:46 06/13 18:46 Order name: Finger Stick; Complete Time: 19:00 ll1 06/13 19:58 Order name: Blood Glucose Level; Complete Time: 20:09 kb Administered Medications: 16:15 Drug: NS 0.9% 1000 ml Route: IV; Rate: 1000 ml; Site: left forearm; ld1 17:31 Follow up: Response: No adverse reaction; IV Status: Completed infusion; IV Intake: ll1 1000ml 16:15 Drug: Ketorolac 30 mg Route: IVP; Site: left forearm; ld1 17:33 Follow up: Response: No adverse reaction; Pain is unchanged, physician notified ll1 16:15 Drug: Zofran (Ondansetron) 4 mg Route: IVP; Site: left forearm; ld1 17:33 Follow up: Response: No adverse reaction ll1 16:32 Not Given (Patient Refused): Benadryl (diphenhydrAMINE) 12.5 mg IVP once ld1 16:46 Drug: Phenergan (promethazine) 12.5 mg Route: IVP; Site: left forearm; ll1 17:33 Follow up: Response: No adverse reaction; Nausea is decreased; RASS: Alert and Calm (0) 1 17:31 Drug: morphine 4 mg {Note: pain 9/10, rass 0.} Route: IVP; Infused Over: 4 mins; Site: ll1 left antecubital; 18:17 Follow up: Response: No adverse reaction; Pain is decreased; RASS: Alert and Calm (0) 1 18:15 Drug: Insulin Regular Human 10 units {Co-Signature: ld1 (Lakshmi Pickering RN).} Route: ll1 IVP; Site: left forearm; 18:55 Drug: NS 0.9% 1000 ml Route: IV; Rate: 1 bolus; Site: left forearm; ll1 19:00 Drug: morphine 4 mg Route: IVP; Infused Over: 4 mins; Site: left forearm; ll1 19:00 Drug: Phenergan (promethazine) 6.25 mg Route: IVP; Site: left forearm; ll1 20:45 Drug: [place] (HYDROcodone-acetaminophen) 10 mg-325 mg 1 tabs Route: PO; ha1 21:14 Follow up: Response: No adverse reaction; Pain is decreased; RASS: Alert and Calm (0) ha1 Point of Care Testing: Blood Glucose: 13:08 Blood Glucose: High (>450 mg/dL); bm7 20:09 Blood Glucose: 292 mg/dL; ll3 Ranges: Critical Glucose Levels:Adult <50 mg/dl or >400 mg/dl <40 mg/dl or >180 mg/dl Disposition Summary: 06/13/22 20:32 Discharge Ordered Location: Home kb Condition: Stable kb Diagnosis - Hyperglycemia, unspecified kb - Migraine without aura, not intractable kb Followup: kb - With: Emergency Department - When: As needed - Reason: Worsening of condition Followup: kb - With: Private Physician - When: 2 - 3 days - Reason: Recheck today's complaints, Continuance of care, Re-evaluation by your physician Discharge Instructions: - Migraine Headache, Qspi-[id number] kb - Hyperglycemia, [id number] kb - Discharge Summary Sheet ll1 Forms: - Medication Reconciliation Form kb - Thank You Letter kb - SBAR form ll1 - Antibiotic Education kb - Prescription Opioid Use kb Addendum: 06/17/2022 16:06 Co-signature as Attending Physician, Karl Headley MD. r n Signatures: Dispatcher [employer] EDID Ashlee Cavanaugh, METAL PRODUCTS VIEWER-C METAL PRODUCTS VIEWER-Ckb Karl Headley MD MD rn Botello, Elizabeth eb Lewis, Lynsay RN RN ll1 Lucía Rico RN RN bm7 Lakshmi Pickering RN RN ld1 Alanis Luna RN RN 1 Lakshmi Pickering RN ld1 Corrections: (The following items were deleted from the chart) 06/13 13:13 13:13 PMHx: Kidney stones; bm7 bm7
--- NOTE | 2022-06-13 20:33 | ER ---
Nurse's Notes [facility] Name: Sadia Mcpherson Age: 51 yrs Sex: Female : 1970 Arrival Date: 06/13/2022 Time: 12:47 Bed 6 Private MD: Samantha Mccray Diagnosis: Hyperglycemia, unspecified;Migraine without aura, not intractable Presentation: 06/13 13:11 Chief complaint: Patient states: I started with a migraine for two days and since bm7 midnight it has gotten worse. I am dry heaving and my blood sugar is high and all over the place. Coronavirus screen: At this time, the client does not indicate any symptoms associated with coronavirus-19. Ebola Screen: No symptoms or risks identified at this time. Initial Sepsis Screen: Does the patient meet any 2 criteria? No. Patient's initial sepsis screen is negative. Does the patient have a suspected source of infection? No. Patient's initial sepsis screen is negative. Risk Assessment: Do you want to hurt yourself or someone else? Patient reports no desire to harm self or others. Onset of symptoms. 13:11 Method Of Arrival: Ambulatory 7 13:11 Acuity: JAYLEN 3 bm7 Triage Assessment: 13:13 General: Appears in no apparent distress. uncomfortable, obese, Behavior is calm, bm7 cooperative. Pain: Complains of pain in forehead. EENT: No deficits noted. No signs and/or symptoms were reported regarding the EENT system. Neuro: Level of Consciousness is awake, alert, obeys commands, Oriented to person, place, time, situation, Leather Flesher are equal bilaterally Moves all extremities. Gait is steady, Speech is normal, Pupils are PERRLA. Neuro: Reports blurred vision headache frontal area, weakness. Cardiovascular: Denies chest pain, shortness of breath, Chest pain is denied. Respiratory: No deficits noted. GI: Reports nausea, vomiting. : No deficits noted. No signs and/or symptoms were reported regarding the genitourinary system. Derm: No deficits noted. No signs and/or symptoms reported regarding the dermatologic system. Musculoskeletal: No deficits noted. No signs and/or symptoms reported regarding the musculoskeletal system. INTERSTATE PLANNER: 13:09 LMP N/A - Post-menopause bm7 Historical: - Allergies: 13:12 Lamictal; bm7 13:12 Sulfa (Sulfonamide Antibiotics); bm7 13:12 tobramycin; bm7 13:12 Wellbutrin; bm7 - Home Meds: 13:12 aspirin 81 mg Oral chew 1 tab once daily [Active]; Coreg 12.5 mg Oral tab 1 tab 2 times bm7 per day [Active]; Humalog U-100 Insulin 100 unit/mL Sub-Q crtg [Active]; levothyroxine 75 mcg tab 1 tab once daily [Active]; progesterone (bulk) 0.25 mg miscellaneous powd 1 tab daily [Active]; Remeron 15 mg Oral tab 1 tab once daily [Active]; Seroquel 100 mg Oral tab 1 tab [Active]; simvastatin 20 mg Oral tab 1 tab once daily [Active]; spironolactone 25 mg Oral tab 1 tab once daily [Active]; - PMHx: 13:12 Depression; Hypertension; Hypothyroidism; bm7 13:13 IDDM; bm7 - PSHx: 13:13 Lithotripsy; bm7 - Immunization history:: Adult Immunizations up to date, Client reports having NOT received the Covid vaccine. - Social history:: Smoking status: Patient denies any tobacco usage or history of. Screenin:22 Abuse screen: Denies threats or abuse. Nutritional screening: No deficits noted. ll1 Tuberculosis screening: No symptoms or risk factors identified. Fall Risk IV access (20 points). Total [place]u Fall Scale indicates No Risk (0-24 pts). Assessment: 16:00 Reassessment: No changes from previously documented assessment. Patient and/or family ll1 updated on plan of care and expected duration. Pain level reassessed. Patient is alert, oriented x 3, equal unlabored respirations, skin warm/dry/pink. 16:32 Reassessment: No changes from previously documented assessment. Patient and/or family ll1 updated on plan of care and expected duration. Pain level reassessed. 17:30 Reassessment: No changes from previously documented assessment. Patient and/or family ll1 updated on plan of care and expected duration. Pain level reassessed. Patient is alert, oriented x 3, equal unlabored respirations, skin warm/dry/pink. 18:18 Reassessment: No changes from previously documented assessment. Patient and/or family ll1 updated on plan of care and expected duration. Pain level reassessed. Patient is alert, oriented x 3, equal unlabored respirations, skin warm/dry/pink. 19:16 General: Appears in no apparent distress. Behavior is calm, cooperative. ha1 19:16 Pain: Complains of pain in r. side of head. Neuro: Level of Consciousness is awake, ha1 alert, obeys commands, Oriented to person, place, time, situation. Cardiovascular: Patient's skin is warm and dry. Respiratory: Airway is patent Trachea midline Respiratory effort is even, unlabored, Respiratory pattern is regular, symmetrical. Vital Signs: 13:09 BP 176 / 107; Pulse 78; Resp 16; Temp 98.3(TE); Pulse Ox 100% on R/A; Weight 97.52 kg bm7 (R); Height 5 ft. 4 in. (162.56 cm); Pain 10/10; 16:30 BP 139 / 80; Pulse 67; ll1 17:22 BP 130 / 75; Pulse 76; Pulse Ox 98% ; ll1 18:17 BP 138 / 66; Pulse 67; Resp 17; Pulse Ox 97% on R/A; Pain 7/10; ll1 19:18 BP 116 / 79; Pulse 72; Resp 17 S; Pulse Ox 98% on R/A; ha1 21:15 BP 150 / 86; Pulse 62; Resp 17 S; Pulse Ox 98% on R/A; Pain 3/10; ha1 13:09 Body Mass Index 36.90 (97.52 kg, 162.56 cm) bm7 ED Course: 12:47 Patient arrived in ED. am2 12:47 Samantha Mccray is Private Physician. am2 13:06 Ashlee Cavanaugh FNP-C [facility] kb 13:06 Karl Headley MD is Attending Physician. kb 13:12 Triage completed. bm7 13:13 Arm band placed on right wrist. bm7 15:58 Martha Crawley, SILVIA is Primary Nurse. ll1 15:59 Patient placed in an exam room, on a stretcher. ll1 16:37 Initial lab(s) drawn, by me, sent to lab. Inserted saline lock: 22 gauge in left em1 antecubital area, using aseptic technique. Blood collected. 17:23 Patient has correct armband on for positive identification. Bed in low position. Call ll1 light in reach. Side rails up X 1. Client placed on continuous cardiac and pulse oximetry monitoring. NIBP monitoring applied. classroom monitor on. 21:13 No provider procedures requiring assistance completed. IV discontinued, intact, ha1 bleeding controlled, No redness/swelling at site. Pressure dressing applied. Administered Medications: 16:15 Drug: NS 0.9% 1000 ml Route: IV; Rate: 1000 ml; Site: left forearm; ld1 17:31 Follow up: Response: No adverse reaction; IV Status: Completed infusion; IV Intake: ll1 1000ml 16:15 Drug: Ketorolac 30 mg Route: IVP; Site: left forearm; ld1 17:33 Follow up: Response: No adverse reaction; Pain is unchanged, physician notified [facility] 16:15 Drug: Zofran (Ondansetron) 4 mg Route: IVP; Site: left forearm; ld1 17:33 Follow up: Response: No adverse reaction [facility] 16:32 Not Given (Patient Refused): Benadryl (diphenhydrAMINE) 12.5 mg IVP once ld1 16:46 Drug: Phenergan (promethazine) 12.5 mg Route: IVP; Site: left forearm; ll1 17:33 Follow up: Response: No adverse reaction; Nausea is decreased; RASS: Alert and Calm (0) [facility] 17:31 Drug: morphine 4 mg {Note: pain 9/10, rass 0.} Route: IVP; Infused Over: 4 mins; Site: ll1 left antecubital; 18:17 Follow up: Response: No adverse reaction; Pain is decreased; RASS: Alert and Calm (0) [facility] 18:15 Drug: Insulin Regular Human 10 units {Co-Signature: ld1 (Lakshmi Pickering RN).} Route: ll1 IVP; Site: left forearm; 18:55 Drug: NS 0.9% 1000 ml Route: IV; Rate: 1 bolus; Site: left forearm; ll1 19:00 Drug: morphine 4 mg Route: IVP; Infused Over: 4 mins; Site: left forearm; ll1 19:00 Drug: Phenergan (promethazine) 6.25 mg Route: IVP; Site: left forearm; ll1 20:45 Drug: [place] (HYDROcodone-acetaminophen) 10 mg-325 mg 1 tabs Route: PO; ha1 21:14 Follow up: Response: No adverse reaction; Pain is decreased; RASS: Alert and Calm (0) ha1 Medication: 17:23 VIS not applicable for this client. ll1 Point of Care Testing: Blood Glucose: 13:08 Blood Glucose: High (>450 mg/dL); bm7 20:09 Blood Glucose: 292 mg/dL; ll3 Ranges: Intake: 17:31 IV: 1000ml; Total: 1000ml. ll1 Outcome: 20:32 Discharge ordered by MD. tate 21:13 Discharged to home via wheelchair, with family. ha1 21:13 Condition: stable 21:13 Discharge instructions given to patient, family, Instructed on discharge instructions, follow up and referral plans. Demonstrated understanding of instructions, follow-up care. 21:17 Patient left the ED. ha1 Signatures: Ashlee Cavanaugh, AGILE DEVELOPER-C AGILE DEVELOPER-CkNicola Dueñas em1 Aurora Alvarado am2 Martha Crawley, RN RN ll1 Lucía Rico RN SILVIA [facility] Lakshmi Pickering RN RN ld1 Fredi Yang RN RN ll3 Alanis Luna RN RN 1 Lakshmi Pickering RN ld1 Corrections: (The following items were deleted from the chart) 13:13 13:13 PMHx: Kidney stones; bm7 bm7 16:31 15:20 BP 141 / 89; Pulse 76bpm; Resp 16bpm; ll1 ll1 18:17 18:17 BP 138 / 66; Pulse 67bpm; Resp 17bpm; Pulse Ox 97% RA; ll1 ll1
[2022-06-13] MEDS ORDERED: HYDROCODONE/APAP 10/325 TAB ONE (20:55)
[2022-06-13 22:53] VITALS: TEMP 98.3
[2022-06-13 23:06] VITALS: O2SAT 98
[2022-06-13 23:08] VITALS: BP 150/86
== END 2022-06-13 21:17 | disposition home or self-care (01) ==
LOC: ER 12:46
DX: E11.65 Type 2 diabetes mellitus with hyperglycemia (principal); G43.009 Migraine without aura, not intractable, without status migrainosus; I10 Essential (primary) hypertension; E03.9 Hypothyroidism, unspecified; Z79.82 Long term (current) use of aspirin; Z88.2 Allergy status to sulfonamides; Z88.8 Allergy status to other drugs, medicaments and biological substances
CPT/HCPCS: 85025; 80048; 36415; 82010; 82947 ×3; 81003; 99284; J2550 ×3; J1815; J7030 ×2; J2405; J1200

== ENCOUNTER 2022-06-22 07:34 | Observation (INO) | payer OTHER ==
--- OUTSIDE RECORDS SUMMARY | 2022-06-22 07:39 | XMS REPORT | Continuity of Care Document ---
:1970 Author Organization [facility] t Address [address] [place] [address] Care Team Providers Name Role Phone Samantha Foster MD Primary Care Physician [phone] SAMANTHA FOSTER Attending Clinician Unavailable BUCK MERCER Attending Clinician Unavailable SHRADDHA AZEVEDO Attending Clinician Unavailable Shraddha Azevedo DO Attending Clinician MD DAKSHA Attending Clinician Unavailable LAB90 Attending Clinician Unavailable Lance EID, Dolly Attending Clinician Samantha Foster MD Attending Clinician [phone] Buck Mercer DO Attending Clinician Esther Kinsey Attending Clinician Gordon EID, Chrissy Garcia Attending Clinician [phone] Man VEGA, Heather Raymundo Attending Clinician Unavailable Yazan EID, Arcenio Attending Clinician Bruce Guardado MD, Huy Mcmullen Attending Clinician [phone] Eduardo EID, Alivia Attending Clinician Lucía Borrego Attending Clinician Bruce Guardado MD, Huy Mcmullen Admitting Clinician [phone] Payers Payer Name Policy Type Policy Number Effective Date Expiration Date Jared jeong MEDICARE PART B [id number] [facility] [employer] MEDICARE 7 [id number] 2022 [id number] GOLD 00:00:00 PLUS 2021 Problems Condition Condition Condition Status Onset Resolution Last Treating Co mments Source Name Details Category Date Date Treatment Clinician Date Hyperlipid Hyperlipid Disease Active K elsey emia emia 5-17 Seybold 00:00: 00 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 4-19 Seybol d mellitus mellitus 00:00: without without 00 complicati complicati on, with on, 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 of use of insulin 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 Zak sey current current 4-19 Seybold use of use of 00:00: insulin insulin 00 Hypothyroi Hypothyroi Disease Active K elsey dism dism 4-19 Seybold (acquired) (acquired) 00:00: 00 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.] Univers irritation irritation 1-17 it y of 00:: Medical Branch Dysuria Dysuria Disease Active Univers 1-17 ity of 00:00: [place] [facility] 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 1-17 ity of 00:: [place] [address] Medical Branch Bilateral Bilateral Disease Active Uni vers lower lower 7-20 [place] extremity [place] edema edema 00 [place] Overweight Overweight Disease Active U nivers (BMI (BMI 7-20 ity of 25.0-29.9) 25.0-29.9[place] Low back Low back Disease Active Unive rs pain pain 3-14 ity of 00:00: [address] Hydronephr Hydronephr Disease Active U nivers osis osis 3-14 ity of 00:00: [place] Medical [place] History of History of Disease Active U nivers urinary urinary 3-14 ity of stone stone 00:00: [place] 00 [facility] Loss of Loss of Disease Active Univers muscle muscle 3-14 ity of tone of tone of 00:00: [place] bladder bladder 00 [facility] No known No known Disease Kelse y active active Seybold problems problems Staph skin Staph skin Disease Active U nivers infection infection ity of [facility] Prediabete Prediabete Disease Active U nivers s s ity of [facility] Allergies, Adverse Reactions, Alerts Allergy Allergy Status Severity Reaction(s) Onset Inactive Treating Comm ents Source Name Type Date Date Clinician Bupropio Propensi Active Swelling Univ ers n ty to 04-21 ity of adverse 00:00: [place] reaction [facility] Sulfa Propensi Active Rash Univers (Sulfona ty to 11 ity of mide adverse 00:00: [place] Antibiot reaction 00 Medica l ics) Branch Lamotrig Propensi Active Rash Alexandre Reema ine ty to 04-21 Supa Seybold adverse 00:00: reaction 00 s Minocycl Propensi Active Rash Reema ine ty to 04-21 Seybold adverse 00:00: reaction 00 s Sulfa Propensi Active Rash Reema Drugs ty to 7 Seybold adverse 00:00: reaction 00 s Minocycl Propensi Active Rash Univer s ine ty to 711 ity of adverse 00:00: [place] reaction [facility] TOBRAMYC Allergy Active Low Rash [facility] Minocycl Drug Active Rash [facility] 6[facility]12 [facility] Center Sulfa Drug Active Rash Rash and [facility] (Sulfona Allergy 6-12 throat [facility] mide 00:00: swelling Medical Antibiot 00 Center ics) Tobramyc Drug Active Rash [facility] in Allergy 03-23 [facility] 00[facility] Medical [facility] Center MINOCYCL Allergy Active Low Rash [facility] INE 03-23 [facility] Center SULFA Allergy Active Low Rash [facility] (SULFONA 03-23 [facility] MIDE 00:00: Medical ANTIBIOT 00 Center ICS) Bupropio Drug Active Other - See Uni vers n Hcl Allergy comments 10-12 ity of 00:00: [place] [facility] Sulfamet Drug Active Other - See Uni vers hoxazole Allergy comments 10-12 ity o f 00:00: [place] [facility] Tobramyc Drug Active Unknown - Unive rs in Allergy See comments 10-12 ity of 00:00: Medical Branch Bupropio Propensi Active Other Reema n ty to 10-12 Seybold adverse 00:00: reaction 00 s Doxycycl Propensi Active Rash 0 Reema ine ty to 10-12 Seybold Monohydr adverse 00:00: ate reaction 00 s Tobramyc Propensi Active 0 Other Reema in ty to 10-12 reaction( Seybold adverse 00:00: s): reaction 00 Unknown - s See comments Social History Social Habit Start Date Stop Date Quantity Comments Source Tobacco use and 2022-01-28 2022-01-28 Smokeless tobacco Ke lsey Seybold exposure 00:00:00 00:00:00 non-user Alcohol intake 2013-03-23 2013-03-[address] [facility] 00:00:00 00:00:00 non-drinker of Medical nter alcohol (finding) Sex Ass[birth year] At [birth year] [facility] 00:00:00 00:00:00 Hospital Smoking Status Start Date Stop Date Source Tobacco smoking consumption unknown [facility] Never smoked tobacco Reema Seyb old Medications Ordered Filled Start Stop Current Ordering Indication Dosage Frequency Signature Comments Components Source Medication Medication Date Date Medication? Clinician (SIG) Name Name Aspirin 81 Yes 81mg Take 81 mg K elsey MG oral 06 by mouth Seybold Chewable 14:50: daily Tablet 32 Clonazepam Yes .125mg Q.5D Take 0.125 Reema 0.125 MG 6-06 mg by Seybold oral TABLET 14:50: mouth as DISPERSIBLE 32 needed in the morning and 0.125 mg as needed in the evening. Quetiapine Yes [id number] 100mg Take 1 Reema Fumarate 6-01 tablet Seybold 100 MG oral 00:00: (100 mg Tablet 00 total) by mouth nightly Insulin Yes Inject Reema Glargine 5-19 20-22 Seybold (Lantus 00:00: units SoloStar) 00 under the 100 UNIT/ML skin (SQ) subcutaneou daily, in s Solution the Pen-injecto morning. r Aspirin 81 Yes 81mg Take 81 mg K elsey MG oral 5-17 by mouth Seybold Chewable 08:17: daily Tablet 16 Quetiapine Yes 1{tbl} Take 1 Zak sey Fumarate 5-17 tablet by Seybol d 300 MG oral 08:17: mouth Tablet 16 Insulin Yes [id number] 12U Inject 12 Reema Glargine 5-17 units into Seybo ld (Lantus 00:00: the skin SoloStar) 00 daily 100 UNIT/ML subcutaneou s Solution Pen-injecto r Insulin Yes [id number] 12U Inject 12 Reema Glargine 5-17 units [...] 00:00: Tablet 00 Delayed Response VALACYCLOVI Yes [id number] TAKE ONE Univers R 500 mg 5-16 TABLET BY ity of tablet 00:00: MOUTH [place] 00 DAILY Medical Branch Carvedilol Yes 25mg 25 mg in Zak sey 25 MG oral 5-12 the Seybold Tablet 00:00: morning 00 and 25 mg in the evening. Take with meals. Carvedilol Yes Reema 25 MG oral 5-12 Seybold Tablet 00:00: 00 Levothyroxi 0 Yes [id number] 137ug Take 1 Reema ne Sodium 5-05 tablet Seybold 137 MCG 00:00: (137 mcg oral Tablet 00 total) by mouth daily Levothyroxi Yes [id number] 137ug Take 1 Reema ne Sodium 5-05 [...] 00 daily s Solution Pen-injecto r Lantus 2022-0 Yes 12U Inject 12 Reema SoloStar 4-01 units into Seybo ld 100 UNIT/ML 00:00: the skin subcutaneou 00 daily s Solution Pen-injecto r Lantus 2021- No 12U Inject 12 Galina DickoStar 4-01 05-17 units into Seyb old 100 UNIT/ML 00:00: 00:00 the skin subcutaneou 00 :00 daily s Solution Pen-injecto r aspirin 81 Yes 81mg Take 81 mg U nivers mg chewable 3-24 by mouth ity of tablet 13:15: daily. [address] desvenlafax Yes 1{tbl} Take 1 Un fernanda ine 3-24 tablet by ity of succinate 13:15: mouth [place] (PRISTIQ) 54 daily. Medical 25 mg Tb24 Branch HYDROcodone Yes hydrocodon Univers -acetaminop 3-24 e 10 ity of hen 10-325 13:15: mg-acetami [place] mg tablet 54 nophen 325 Medi owen mg tablet [place] Cholecalcif Yes Vitamin D3 Univers geoffrey, 3-24 10 mcg ity of Vitamin D3, 13:15: (400 unit) [place] 10 mcg (400 54 capsule Medic al unit) Take by Branch capsule oral route. metFORMIN Yes metformin Uni vers 500 mg 3-24 500 mg ity of tablet 13:15: tablet [address] aspirin 81 Yes aspirin 81 U nivers mg EC 3-24 mg ity of tablet 13:15: tablet,del [place] [address] ayed Medical release Branch Take 1 tablet every day by oral route. carvediloL Yes Coreg 25 Uni vers (COREG) 25 3-24 mg tablet ity of mg tablet 13:15: Take 1 [place] [address] tablet Medical twice a Branch day by oral route. simvastatin Yes simvastati Univers 20 mg 3-24 n 20 mg ity of tablet 13:15: tablet [address] traZODone Yes trazodone Uni vers 50 mg 3-24 50 mg ity of tablet 13:15: tablet [address] desvenlafax Yes Univer s ine 3-24 ity of succinate 13:15: [place] (PRISTIQ) 54 Medical 25 mg Tb24 Branch QUEtiapine Yes Seroquel Uni vers (SEROQUEL) 3-24 200 mg ity of 200 mg 13:15: tablet [place] tablet 54 Take 1 Medical tablet Branch twice a day by oral route. levothyroxi Yes levothyrox Univers ne 50 mcg 3-24 ine 50 mcg ity of tablet 13:15: tablet [place] 54 Medical Branch metFORMIN Yes 500mg Take 1 Unive rs 500 mg 2-24 tablet by ity of tablet 00:00: mouth [place] 00 every Medical evening. Branch Metformin Yes metformin Zak sey HCl 500 [...] Tablet 00:00: mouth 00 daily (with breakfast) hydrOXYzine Yes [id number] 25mg Take 1 Univers 25 mg 1-29 tablet by ity of tablet 00:00: mouth [place] 00 every 6 Medical (six) Branch hours as needed for Itching or Anxiety. methylPREDN Yes [id number] Take by Univers ISolone 1-29 mouth ity [...] mouth oral Tablet 00 every 24 hours levothyroxi Yes [id number] 125ug Take 1 Univers ne 125 mcg 1-12 tablet by ity of tablet 00:00: mouth [place] 00 every Medical morning. Branch Simvastatin Yes simvastati Reema 20 MG oral 1-12 n 20 mg Seybol d Tablet 00:00: tablet 00 simvastatin Yes [id number] 20mg Take 1 Univers 20 mg 1-12 tablet by ity of tablet 00:00: mouth at [place] 00 bedtime. Medical Branch Levothyroxi Yes 1{tbl} Take 1 Ke lsey ne Sodium 1-12 tablet by Seybo ld 125 MCG 00:00: mouth oral Tablet 00 every 24 hours Insulin Yes [id number] 15U inject 15 Univers Glargine 1-12 Units ity of 100 unit/mL 00:00: under the [place] (3 mL) 00 skin daily Medical injection before [place] breakfast. Simvastatin Yes simvastati Reema 20 MG oral 1-12 n 20 mg Seybol d Tablet 00:00: tablet 00 Simvastatin Yes simvastati Reema 20 MG oral 1-12 n 20 mg Seybol d Tablet 00:00: tablet 00 Simvastatin Yes 20mg Take 20 mg Reema 20 MG oral 1-12 by mouth Seybo ld Tablet 00:00: nightly 00 methocarbam 2020-10 Yes [id number] 500mg Take 1 Univers oL 2-24 tablet by ity of (ROBAXIN) 00:00: mouth 4 [place] 500 mg 00 (four) Medical tablet times [place] daily. phenazopyri 2020-10 Yes [id number] 200mg Take 2 Univers dine 100 mg 2-24 tablets by it y of tablet 00:00: mouth 3 [place] 00 (three) Medical times [place] daily. carvediloL 2020-10 Yes [id number] 25mg Take 1 U nivers 25 mg 1-16 tablet by ity of tablet 00:00: mouth 2 [place] 00 (two) Medical times Branch daily. clobetasoL 2020-10 Yes [id number] Apply to Univers 0.05 % 0-05 area(s) 2 ity of ointment 00:00: (two) [place] 00 times Medical daily. Branch OMEPRAZOLE Yes [id number] TAKE ONE Univers 40 mg 9-30 CAPSULE BY ity of capsule 00:00: MOUTH [place] 00 DAILY Medical Branch blood sugar Yes [id number] 1{strip 1 Strip Univers diagnostic 5-24 } before ity of (BLOOD 00:00: meals and [place] GLUCOSE 00 at Medical TEST) strip bedtime. Bran ch Check glucose once daily before breakfast; Diagnosis code R73.03 Blood-Gluco Yes [id number] Check U nivers se Meter 4-20 glucose ity of Kit 00:00: once daily [place] 00 before Medical breakfast; Branch Diagnosis code R73.03 Lancets 2019-10 Yes [id number] Check Univ ers Misc 1-18 glucose ity of 00:00: once daily [place] before Medical breakfast; Branch Diagnosis code R73.03 QUEtiapine Yes Univers 300 mg 1-10 ity of tablet 00:00: [place] 00 Medical Branch clonazePAM Yes 1mg Take [address] (KLONOPIN) 6-12 by mouth 2 Therese es 1 MG tablet 04:13: (two) Medic al 45 times Center daily as needed. DULoxetine Yes 30mg QD Take [address] (CYMBALTA) 6-12 by mouth [facility] 30 MG 04:13: daily. Medical capsule 45 Center TIZANIDINE Yes Take by [facility] [...] Center times daily with breakfast and dinner. TIZANIDINE Yes Take by [facility]CL 6-12 mouth. [facility] (ZANAFLEX 04:13: Medical ORAL) 45 Center methocarbam 2012- Yes 750mg Q.25D Take [address] [...] blood pressure 2022-03-17 19:42:00 112 mm[Hg] Reema ybold Diastolic blood 2022-03-17 19:42:00 64 mm[Hg] Kelse y Seybold pressure Heart rate 2022-03-17 19:42:00 96 /min Reema [place]on Body temperature 2022-03-17 19:42:00 36.39 Lynette Kaykay ey Seybold Respiratory rate 2022-03-17 19:42:00 14 /min [place] Body height 2022-03-17 19:42:00 162.6 cm Reema sainimicheal Body weight 2022-03-17 19:42:00 102.059 kg Reema [place]on BMI 2022-03-17 19:42:00 38.62 kg/m2 Reema sainimicheal Systolic blood pressure 2022-02-25 13:19:00 110 mm[Hg] Reema ybold Diastolic blood 2022-02-25 13:19:00 62 mm[Hg] Kelse y Seybold pressure Heart rate 2022-02-25 13:19:00 78 /min Reema billingsleyeaston Body temperature 2022-02-25 13:19:00 36.78 Lynette Kaykay ey Seybold Respiratory rate 2022-02-25 13:19:00 14 /min Kaykay ey Seybold Body height 2022-02-25 13:19:00 162.6 cm Reema Coleman eybold Body weight 2022-02-25 13:19:00 100.971 kg [...] Body height 2022-02-12 18:51:00 162.6 cm Reema S eybold Body weight 2022-02-12 18:51:00 100.699 kg Reema S eybold BMI 2022-02-12 18:51:00 38.11 kg/m2 Reema S eybold Systolic blood pressure 2022-01-28 18:35:00 127 mm[Hg] Reema Seybold Diastolic blood 2022-01-28 18:35:00 76 mm[Hg] Kelse y Seybold pressure Heart rate 2022-01-28 18:35:00 72 /min Reema S eybold Body temperature 2022-01-28 18:35:00 36.61 Lynette Kaykay ey Seybold Respiratory rate 2022-01-28 18:35:00 14 /min Kaykay ey Seybold Body height 2022-01-28 18:35:00 162.6 cm Reema S eybold Body weight 2022-01-28 18:35:00 101.152 kg Reema S eybold BMI 2022-01-28 18:35:00 38.28 kg/m2 Reema S eybold Procedures This patient has no known procedures. Encounters Start End Encounter Admission Attending Care Care Encounter Source Date/Time Date/Time Type Type Clinicians Facility Department ID 2022-01-10 Outpatient WILBUR BOWLES [id number] [place] 13:15:[id number] [facility] grover 2022-01-08 Outpatient WILBUR BOWLES [id number] [place] 12:03:37 [id number] [facility] 2022-08-28 2022-08-28 Outpatient REEMA FOSTER [id number] Reeam 13:45:00 13:45:00 SAMANTHA Seybol d 2022-08-07 2022-08-07 Outpatient BUCK MERCER [id number] Reema 14:00:00 14:00:00 Seybol d 2022-07-14 2022-07-14 Outpatient BUCK MERCER [id number] Reema 13:30:00 13:30:00 Seybol d 2022-06-24 2022-06-24 Outpatient REEMA AZEVEDO [id number] Reema 14:45:00 14:45:00 SHRADDHA Seybol d 2022-06-17 2022-06-17 Office Neo Azevedo [id number] Reema 14:45:00 15:15:00 [id number] [id number] 2022-06-17 2022-06-17 Outpatient REEMA AZEVEDO [id number] Reema 00:00:00 00:00:00 SHRADDHA Seybol d 2022-06-13 2022-06-13 Outpatient REEMA FOSTER [id number] Reema 00:00:00 00:00:00 SAMANTHA Seybol d 2022-06-13 2022-06-13 Outpatient BUCK MERCER [id number] Reema 00:00:00 00:00:00 Seybol d 2022-06-13 2022-06-13 Outpatient REEMA FOSTER [id number] Reema 00:00:00 00:00:00 SAMANTHA Seybol d 2022-06-12 2022-06-12 Outpatient BUCK MERCER REEMA MOJICA [id number] Reema 09:45:00 09:45:00 Seybol d 2022-06-10 2022-06-10 Outpatient REEMA FOSTER [id number] Reema 00:00:00 00:00:00 SAMANTHA Seybol d 2022-06-04 2022-06-04 Outpatient BUCK MERCER REEMA MOJICA [id number] Reema 00:00:00 00:00:00 Seybol d 2022-06-04 2022-06-04 Outpatient REEMA FOSTER [id number] Reema 00:00:00 00:00:00 SAMANTHA Seybol d 2022-06-02 2022-06-02 Outpatient REEMA FOSTER [id number] Reema 00:00:00 00:00:00 SAMANTHA Seybol d 2022-05-26 2022-05-26 Outpatient MIREYA MOJICA [id number] Reema 00:00:00 00:00:00 MD KYLAH Seybol d 2022-05-22 2022-05-22 Outpatient BUCK MERCER REEMA MOJICA [id number] Reema 00:00:00 00:00:00 Seybol d 2022-05-21 2022-05-21 Outpatient LAB90 REEMA MOJICA [id number] Reema 14:50:00 14:50:00 Seybol d 2022-05-19 2022-05-19 Outpatient REEMA FOSTER [id number] Reema 00:00:00 00:00:00 SAMANTHA Seybol d 2022-04-24 2022-04-24 Refyinka Lucas [facility] [id number] Univers 00:00:00 00:00:00 [facility] [id number] it y of [place] 4.2.7.2.686 Anton as DIANN?BLEA [id number] [address] MEDICAL OFFICE BUILDING 2022-04-23 2022-04-23 Outpatient REEMA FOSTER [id number] Reema 00:00:00 00:00:00 SAMANTHA Seybol d 2022-04-152022-04-15 Office Neo Foster [id number] Reema 13:30:00 14:00:00 Visit Samantha Cavanaugh [id number] Se ybold Somogyi [id number] 2022-04-09 2022-04-09 Office Buck Mercer [id number] Reema 14:30:00 15:00:00 Visit Chery LIZARRAGA [id number] Se ybold [id number] 2022-04-01 2022-04-01 Outpatient REEMA FOSTER [id number] Reema 00:00:00 00:00:00 SAMANTHA Seybol d 2022-03-17 2022-03-17 Office Neo Foster [id number] Reema 14:45:00 15:00:00 Visit Samantha Cavanaugh [id number] Se ybold Somogyi 1.2.7.2.686 [id number] 2022-02-25 2022-02-25 Outpatient LAB90 REEMA MOJICA [id number] Reema 09:10:00 09:10:00 Seybol d 2022-02-25 2022-02-25 Office Neo Foster [id number] Reema 08:30:00 08:45:00 Visit Samantha Cavanaugh [id number] Se ybold Somogyi 1.2.7.2.686 [id number] 2022-02-21 2022-02-21 Outpatient REEMA FOSTER [id number] Reema 00:00:00 00:00:00 SAMANTHA Seybol d 2022-02-18 2022-02-18 Outpatient REEMA FOSTER [id number] Reema 00:00:00 00:00:00 SAMANTHA Seybol d 2022-02-13 2022-02-13 Outpatient REEMA FOSTER [id number] Reema 00:00:00 00:00:00 SAMANTHA Seybol d 2022-02-132022-02-13 Outpatient REEMA FOSTER [id number] Reema 00:00:00 00:00:00 SAMANTHA Seybol d 2022-02-12 2022-02-12 Outpatient LAB90 REEMA MOJICA [id number] Reema 14:45:00 14:45:00 Seybol d 2022-02-12 2022-02-12 Office Neo Foster 1.2.840.114 [id number] Reema 14:00:00 14:30:00 Visit Samantha Cavanaugh [id number] Se ybold Somogyi [id number] 2022-02-11 2022-02-11 Outpatient REEMA FOSTER [id number] Reema 00:00:00 00:00:00 SAMANTHA Seybol d 2022-02-07 2022-02-07 Outpatient REEMA FOSTER [id number] Reema 00:00:00 00:00:00 SAMANTHA Seybol d 2022-01-29 2022-01-29 Outpatient REEMA FOSTER [id number] Reema 00:00:00 00:00:00 SAMANTHA Seybol d 2022-01-28 2022-01-28 Outpatient LAB90 REEMA MOJICA [id number] Reema 14:25:00 14:25:00 Seybol d 2022-01-28 2022-01-28 Office Neo FOSTER 1.2.840.114 [id number] Reema 13:30:00 13:30:00 Visit SAMANTHA Cavanaugh [id number] Se ybold [id number] 2021-02-07 2021-02-[address] [facility] [id number] [place] 00:00:00 00:00:[address] 2021-02-07 2021-02-07 Telephone Maykel [facility] [id number] 00:00:00 00:00:00 [facility] [id number] [place] 4.2.7.2.686 Professio [id number] nal [address] 2021-02-01 2021-02-01 Telephone AkashJALEESA leger 1.2.840.114 [id number] 00:00:00 00:00:00 Chrissy SANCHEZ [id number] Radha PERRY 4.2.7.2.686 [place] [id number] AND KAY [facility] 2021-02-01 2021-02-01 Transition Sommer Conway 1.2.840.114 [id number] 00:00:00 00:00:00 of Care Heather Juan [id number] Jamarcus [id number] [id number] 2021-01-29 2021-01-31 [facility] Arcenio Hand [id number] [id number] 16:44:00 17:15:00 Encounter Huy Barrera 350.1.13. 10 [facility] [id number] [id number] 2021-01-29 2021-01-29 Office Samantha [facility] 1.2.840.114 [id number] 15:27:18 16:23:[address] [facility] [id number] Adia 4.2.7.2.686 Vinnie [id number] nal 044 Office [address] One Results This patient has no known results.
[2022-06-22] MEDS ORDERED: NA CHLORIDE 0.9% 1,000 ML ONE (08:14)
[2022-06-22] MEDS ORDERED: ASPIRIN 81 MG CHEWABLE TABLET ONE (08:14)
--- NOTE | 2022-06-22 08:37 | RAD REPORT ---
EXAM DESCRIPTION: RAD - Chest Single View - 06/22/2022 8:31 am CLINICAL HISTORY: CHEST PAIN Chest pain. COMPARISON: Chest Single View dated 02/07/2021; Chest Single View dated 08/30/2020 FINDINGS: Portable technique limits examination quality. Subtle opacity in the right lung base may represent a developing infiltrate pneumonia. The heart is u pper limit normal in size. No displaced fractures.
[2022-06-22 08:40] LABS: Absolute Lymphocytes (CBC) 2.1 K/uL (0.7-4.9); Hematocrit 44.8 % (36.0-45.0); Lymphocytes % 29.1 % (15.3-44.8); MCV 87.8 fL (80-100); MPV 8.4 fL (7.6-11.3)
[2022-06-22] MEDS ORDERED: ONDANSETRON 4 MG/2 ML VIAL ONE ×2 (08:57→11:13)
[2022-06-22] MEDS ORDERED: MORPHINE 4 MG/ML SYR ONE ×2 (08:57→11:13)
[2022-06-22 09:28] LABS: Protime INR 0.9
--- NOTE | 2022-06-22 09:32 | ER ---
Nurse's Notes [facility] Name: Saida Mcpherson Age: 51 yrs Sex: Female : 1970 Arrival Date: 06/22/2022 Time: 07:40 Bed 15 Private MD: Diagnosis: Chest pain, unspecified;Essential (primary) hypertension;Type 2 diabetes mellitus with hyperglycemia Presentation: 06/22 07:40 Chief complaint: Patient states: Intermittent, sharp chest pain, radiates straight jl7 through to back, started 06/21/22 at 0200 and started again this morning at 0700, worse with deep breath. RUQ abdominal pain started yesterday with nausea. Coronavirus screen: At this time, the client does not indicate any symptoms associated with coronavirus-19. Ebola Screen: No symptoms or risks identified at this time. Initial Sepsis Screen: Does the patient meet any 2 criteria? No. Patient's initial sepsis screen is negative. Does the patient have a suspected source of infection? No. Patient's initial sepsis screen is negative. Risk Assessment: Do you want to hurt yourself or someone else? Patient reports no desire to harm self or others. Onset of symptoms was June 21, 2022 at 02:00. Care prior to arrival: None. 07:40 Method Of Arrival: Wheelchair jl7 07:40 Acuity: JAYLEN 2 jl7 Triage Assessment: 07:45 General: Appears in no apparent distress. uncomfortable, Behavior is cooperative, jl7 anxious, crying. Pain: Complains of pain in anterior aspect of left upper chest Pain radiates to left subscapular area Pain currently is 7 out of 10 on a pain scale. Quality of pain is described as sharp. Cardiovascular: Patient's skin is warm and dry. 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 jl7 Historical: - Allergies: 07:45 Lamictal; jl7 07:45 Sulfa (Sulfonamide Antibiotics); jl7 07:45 tobramycin; jl7 07:45 Wellbutrin; jl7 - Home Meds: 07:45 aspirin 81 mg Oral chew 1 tab once daily [Active]; Humalog U-100 Insulin 100 unit/mL jl7 Sub-Q crtg [Active]; simvastatin 20 mg Oral tab 1 tab once daily [Active]; 13:41 Coreg 25 mg oral tab 1 tab 2 times per day [Active]; levothyroxine 137 mcg oral tab 1 ph tab once daily [Active]; valacyclovir 500 mg Oral tab 1 tab once daily [Active]; metformin 500 mg Oral tab 1 tab daily [Active]; trazodone 50 mg Oral tab 1 tab nightly [Active]; quetiapine 100 mg oral tab 1 tab nightly [Active]; clonazepam 0.125 mg Oral TbDi 1 tabs daily [Active]; - PMHx: 07:45 Depression; Hypertension; Hypothyroidism; IDDM; jl7 - PSHx: 07:45 Lithotripsy; jl7 - Immunization history:: Client reports having NOT received the Covid vaccine. - Social history:: Smoking status: Patient denies any tobacco usage or history of. - Family history:: not pertinent. Screenin:00 Abuse screen: Denies threats or abuse. Denies injuries from another. Nutritional ph screening: No deficits noted. Tuberculosis screening: No symptoms or risk factors identified. Fall Risk None identified. Assessment: 08:15 General: Appears in no apparent distress. uncomfortable, Behavior is cooperative, ph appropriate for age, anxious, Denies fever, feeling ill. Pain: Complains of pain in anterior aspect of left upper chest Pain radiates to back Pain began gradually, last night. Neuro: Level of Consciousness is awake, alert, obeys commands, Oriented to person, place, time, situation. Cardiovascular: Reports chest pain, fatigue, nausea, shortness of breath, Denies palpitations, syncope. Respiratory: Airway is patent Respiratory effort is even, unlabored. GI: Reports nausea. Musculoskeletal: Circulation, motion, and sensation intact. Range of motion: intact in all extremities. Vital Signs: 07:40 BP 154 / 106; Pulse 83; Resp 19; Temp 97.7; Pulse Ox 98% ; Weight 99.79 kg; Height 5 jl7 ft. 4 in. (162.56 cm); Pain 7/10; 10:07 BP 114 / 72 RA; ph 10:07 BP 139 / 91 LA; ph 11:39 BP 134 / 90; Pulse 74; Resp 16; Pulse Ox 97% ; Pain 3/10; ko1 12:00 BP 129 / 81; Pulse 78; Pulse Ox 98% ; ko1 14:45 BP 106 / 75; Pulse 75; Resp 16; Temp 98.4; Pulse Ox 97% ; Pain 3/10; ko1 07:40 Body Mass Index 37.76 (99.79 kg, 162.56 cm) jl7 ED Course: 07:40 Patient arrived in ED. jl7 07:43 Jayesh Agarwal MD is Attending Physician. zhang 07:45 Triage completed. jl7 07:45 Arm band placed on right wrist. jl7 07:47 EKG completed in triage. Results shown to . jl7 08:09 Shawanda Mayer, RN is Primary Nurse. ph 08:09 Patient has correct armband on for positive identification. Placed in gown. Bed in low ph position. Call light in reach. Side rails up X 1. Client placed on continuous cardiac and pulse oximetry monitoring. NIBP monitoring applied. 08:09 Patient maintains SpO2 saturation greater than 95% on room air. ph 08:20 Initial lab(s) drawn, by ak, sent to lab. Inserted saline lock: 22 gauge in left wrist, jl7 using aseptic technique. Blood collected. 08:33 XRAY Chest (1 view) In Process Unspecified. EDMS 09:31 Mariano Shafer is Hospitalizing Provider. zhang 09:33 Inserted saline lock: 22 gauge in right wrist, using aseptic technique. ss 09:52 CT Aorta for Dissection In Process Unspecified. EDMS 10:29 US Abdomen Limited In Process Unspecified. EDMS 10:29 US Extremity Venous W Compression Sascha In Process Unspecified. EDMS 13:39 No provider procedures requiring assistance completed. Patient admitted, IV remains in ph place. 14:50 to room 206 per wheelchair. ko1 14:50 Report given to Report called to Amy. diehl Administered Medications: 08:10 Drug: Aspirin Chewable Tablet 324 mg Route: PO; jl7 08:15 Follow up: Response: No adverse reaction ph 08:50 Drug: NS 0.9% 1000 ml Route: IV; Rate: 125 ml/hr; Site: left hand; ph 11:00 Follow up: Response: No adverse reaction; IV Status: Infusion continued upon admission ph 08:55 Drug: Zofran (Ondansetron) 4 mg Route: IVP; Site: left hand; ph 11:26 Follow up: Response: No adverse reaction ph 09:00 Drug: morphine 4 mg Route: IVP; Infused Over: 4 mins; Site: left hand; ph 09:30 Follow up: Response: No adverse reaction; Pain is decreased ph 10:19 Drug: Lovenox (enoxaparin) 1 mg/kg Route: Sub-Q; Site: left lower abdomen; ko1 11:26 Follow up: Response: No adverse reaction ph 10:19 Drug: Pepcid (famotidine) 20 mg Route: IVP; Site: left hand; ko1 11:26 Follow up: Response: No adverse reaction ph 11:13 Drug: Zofran (Ondansetron) 4 mg Route: IVP; Site: right wrist; ph 11:27 Follow up: Response: No adverse reaction ph 11:15 Drug: morphine 4 mg Route: IVP; Infused Over: 4 mins; Site: right wrist; ph 11:25 Follow up: Response: No adverse reaction; Pain is decreased ph Medication: 08:09 VIS not applicable for this client. ph Outcome: 09:32 Decision to Hospitalize by Provider. [facility] 15:00 Patient left the ED. eb Signatures: Dispatcher [employer] EDMS Jayesh Agarwal MD MD cha Smirch, Shelby, RN RN Shawanda Mayer RN RN Eric Diego RN RN [email or web address] Oneyda Palafox Kathy, RN RN ko1 Corrections: (The following items were deleted from the chart) 13:47 07:45 Home Meds: Coreg 12.5 mg Oral tab 1 tab 2 times per day; jl7 ph 13:47 07:45 Home Meds: levothyroxine 75 mcg tab 1 tab once daily; [facility] 13:47 07:45 Home Meds: Seroquel 100 mg Oral tab 1 tab; 7 ph
--- NOTE | 2022-06-22 09:32 | EDPHYS ---
Physician Documentation [facility] Name: Sadia Mcpherson Age: 51 yrs Sex: Female : 1970 Arrival Date: 06/22/2022 Time: 07:40 Bed 15 Private MD: MP Physician Jayesh Agarwal HPI: 06/22 09:23 This 51 yrs old Female presents to ER via Wheelchair with complaints of Chest zhang Pain. 09:23 The patient or guardian reports chest pain that is located primarily in the substernal zhang area, anterior chest wall, left. Onset: 2 day(s) ago. The pain does not radiate. Associated signs and symptoms: The patient has no apparent associated signs or symptoms. The chest pain is described as a pressure, sharp. Duration: The patient or guardian reports multiple episodes, with no pattern. Severity of pain: At its worst the pain was moderate in the emergency department the pain is unchanged. The patient has experienced similar episodes in the past, several times. 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 Historical: - Allergies: 07:45 Lamictal; 07:45 Sulfa (Sulfonamide Antibiotics); jl 07:45 tobramycin; 07:45 Wellbutrin; - Home Meds: 07:45 aspirin 81 mg Oral chew 1 tab once daily [Active]; Humalog U-100 Insulin 100 unit/mL jl7 Sub-Q crtg [Active]; simvastatin 20 mg Oral tab 1 tab once daily [Active]; 13:41 Coreg 25 mg oral tab 1 tab 2 times per day [Active]; levothyroxine 137 mcg oral tab 1 ph tab once daily [Active]; valacyclovir 500 mg Oral tab 1 tab once daily [Active]; metformin 500 mg Oral tab 1 tab daily [Active]; trazodone 50 mg Oral tab 1 tab nightly [Active]; quetiapine 100 mg oral tab 1 tab nightly [Active]; clonazepam 0.125 mg Oral TbDi 1 tabs daily [Active]; - PMHx: 07:45 Depression; Hypertension; Hypothyroidism; IDDM; jl7 - PSHx: 07:45 Lithotripsy; jl7 - Immunization history:: Client reports having NOT received the Covid vaccine. - Social history:: Smoking status: Patient denies any tobacco usage or history of. - Family history:: not pertinent. ROS: 09:23 Constitutional: Negative for fever, chills, and weight loss, Eyes: Negative for injury, zhang pain, redness, and discharge, ENT: Negative for injury, pain, and discharge, Neck: Negative for injury, pain, and swelling, Respiratory: Negative for shortness of breath, cough, wheezing, and pleuritic chest pain, Back: Negative for injury and pain, : Negative for injury, bleeding, discharge, and swelling, MS/Extremity: Negative for injury and deformity, Skin: Negative for injury, rash, and discoloration, Neuro: Negative for headache, weakness, numbness, tingling, and seizure, Psych: Negative for depression, anxiety, suicide ideation, homicidal ideation, and hallucinations, Allergy/Immunology: Negative for hives, rash, and allergies, Endocrine: Negative for neck swelling, polydipsia, polyuria, polyphagia, and marked weight changes, Hematologic/Lymphatic: Negative for swollen nodes, abnormal bleeding, and unusual bruising. 09:23 Cardiovascular: Positive for chest pain. 09:23 Respiratory: Positive for shortness of breath. Exam: 09:23 Constitutional: This is a well developed, well nourished patient who is awake, alert, zhang and in no acute distress. Head/Face: Normocephalic, atraumatic. Eyes: Pupils equal round and reactive to light, extra-ocular motions intact. Lids and lashes normal. Conjunctiva and sclera are non-icteric and not injected. Cornea within normal limits. Periorbital areas with no swelling, redness, or edema. ENT: Nares patent. No nasal discharge, no septal abnormalities noted. Tympanic membranes are normal and external auditory canals are clear. Oropharynx with no redness, swelling, or masses, exudates, or evidence of obstruction, uvula midline. Mucous membranes moist. Neck: Trachea midline, no thyromegaly or masses palpated, and no cervical lymphadenopathy. Supple, full range of motion without nuchal rigidity, or vertebral point tenderness. No Meningismus. Cardiovascular: Regular rate and rhythm with a normal S1 and S2. No gallops, murmurs, or rubs. Normal PMI, no JVD. No pulse deficits. Respiratory: Lungs have equal breath sounds bilaterally, clear to auscultation and percussion. No rales, rhonchi or wheezes noted. No increased work of breathing, no retractions or nasal flaring. Abdomen/GI: Soft, non-tender, with normal bowel sounds. No distension or tympany. No guarding or rebound. No evidence of tenderness throughout. Back: No spinal tenderness. No costovertebral tenderness. Full range of motion. Skin: Warm, dry with normal turgor. Normal color with no rashes, no lesions, and no evidence of cellulitis. MS/ Extremity: Pulses equal, no cyanosis. Neurovascular intact. Full, normal range of motion. Neuro: Awake and alert, GCS 15, oriented to person, place, time, and situation. Cranial nerves II-XII grossly intact. Motor strength 5/5 in all extremities. Sensory grossly intact. Cerebellar exam normal. Normal gait. Psych: Awake, alert, with orientation to person, place and time. Behavior, mood, and affect are within normal limits. 09:23 Chest/axilla: Inspection: normal, Palpation: tenderness, that is mild, of the anterior aspect of left upper chest, mid-sternal area, left lateral posterior chest and left lateral anterior chest. 09:23 ECG was reviewed by the Attending Physician. Vital Signs: 07:40 BP 154 / 106; Pulse 83; Resp 19; Temp 97.7; Pulse Ox 98% ; Weight 99.79 kg; Height 5 jl7 ft. 4 in. (162.56 cm); Pain 7/10; 10:07 BP 114 / 72 RA; ph 10:07 BP 139 / 91 LA; ph 11:39 BP 134 / 90; Pulse 74; Resp 16; Pulse Ox 97% ; Pain 3/10; ko1 12:00 BP 129 / 81; Pulse 78; Pulse Ox 98% ; ko1 14:45 BP 106 / 75; Pulse 75; Resp 16; Temp 98.4; Pulse Ox 97% ; Pain 3/10; ko1 07:40 Body Mass Index 37.76 (99.79 kg, 162.56 cm) jl7 MDM: 07:43 Patient medically screened. zhang 09:27 Differential diagnosis: abnormal EKG, acute pericarditis, anxiety, coronary artery zhang disease cholecystitis, Cholelithiasis costochondritis, pancreatitis, pneumonia, pulmonary embolus, stable angina, unstable angina. HEART Score: History: Moderately Suspicious (1), ECG: Normal (0), Age: > 45 and < 65 years (1), Risk Factors: > or = 3 Risk factors for atherosclerotic disease (2), [Hypercholesterolemia] [Hypertension] [DM] [+ Family HX] [Obesity] Troponin: < or = 1 x Normal Limit (0). The patient was given aspirin in the Emergency Department. The patient's deep vein thrombosis risk score was calculated as follows: Total Score: 0. This patient was found to be at low risk for a deep vein thrombosis by using the Well's assessment criteria. The patient's pulmonary embolism risk score was calculated as follows: Total Score: 0-2 points. This patient was found to be at low risk for a pulmonary embolism by using the Well's assessment criteria. VERONICA Risk Score: 1 - Three or more CAD risk factors, 1 - ASA use in past 7 days, TOTAL SCORE = 2. Data reviewed: vital signs, nurses notes, lab test result(s), EKG, radiologic studies, CT scan, plain films, ultrasound. Data interpreted: laboratory monitor: rate is 83 beats/min, rhythm is regular, Pulse oximetry: on room air is 98 %. Test interpretation: by ED physician or midlevel provider: ECG, plain radiologic studies. Counseling: I had a detailed discussion with the patient and/or guardian regarding: the historical points, exam findings, and any diagnostic results supporting the discharge/admit diagnosis, lab results, radiology results, the need for further work-up and treatment in the hospital. 06/22 07:43 Order name: Basic Metabolic Panel; Complete Time: 10:06/22 07:43 Order name: CBC with Diff; Complete Time: :06/22 07:43 Order name: LFT's; Complete Time: 10:06/22 07:43 Order name: Magnesium; Complete Time: 10:06/22 07:43 Order name: NT PRO-BNP; Complete Time: 10:06/22 07:43 Order name: PT-INR; Complete Time: :06/22 07:43 Order name: Troponin HS; Complete Time: 10:06/22 07:43 Order name: XRAY Chest (1 view); Complete Time: :06/22 07:43 Order name: Lipase; Complete Time: 10:06/22 08:46 Order name: CT Aorta for Dissection; Complete Time: 10:02 [facility] 06/22 09:25 Order name: US Abdomen Limited eb 06/22 09:38 Order name: US Extremity Venous W Compression Sascha [facility] 06/22 10:57 Order name: SARS RAPID ko1 06/22 13:42 Order name: Glucose, Ancillary Testing EDMS 06/22 07:43 Order name: EKG; Complete Time: 07:45 [facility] 06/22 07:43 Order name: Cardiac monitoring; Complete Time: 08:09 [facility] 06/22 07:43 Order name: EKG - Nurse/Tech; Complete Time: 08:03 [facility] 06/22 07:43 Order name: IV Saline Lock; Complete Time: 09:52 [facility] 06/22 07:43 Order name: Labs collected and sent; Complete Time: 09:52 [facility] 06/22 07:43 Order name: O2 Per Protocol; Complete Time: 08:03 [facility] 06/22 07:43 Order name: O2 Sat Monitoring; Complete Time: 08:03 [facility] 06/22 07:43 Order name: Urine Dipstick-Ancillary (obtain specimen); Complete Time: 13:35 [facility] 06/22 08:44 Order name: Labs - recollect needed: green top only; Complete Time: 09:51 ss 06/22 09:23 Order name: Bilateral blood pressure; Complete Time: 10:44 [facility] EC:23 Rate is 79 beats/min. Rhythm is regular. QRS [place] is Normal. [place] interval is normal. QRS zhang interval is normal. QT interval is normal. No Q waves. T waves are Normal. No ST changes noted. Clinical impression: NSR w/ Non-specific ST/T Changes and No evidence of ischemia. Interpreted by me. Reviewed by me. Administered Medications: 08:10 Drug: Aspirin Chewable Tablet 324 mg Route: PO; jl7 08:15 Follow up: Response: No adverse reaction ph 08:50 Drug: NS 0.9% 1000 ml Route: IV; Rate: 125 ml/hr; Site: left hand; ph 11:00 Follow up: Response: No adverse reaction; IV Status: Infusion continued upon admission ph 08:55 Drug: Zofran (Ondansetron) 4 mg Route: IVP; Site: left hand; ph 11:26 Follow up: Response: No adverse reaction ph 09:00 Drug: morphine 4 mg Route: IVP; Infused Over: 4 mins; Site: left hand; ph 09:30 Follow up: Response: No adverse reaction; Pain is decreased ph 10:19 Drug: Lovenox (enoxaparin) 1 mg/kg Route: Sub-Q; Site: left lower abdomen; ko1 11:26 Follow up: Response: No adverse reaction ph 10:19 Drug: Pepcid (famotidine) 20 mg Route: IVP; Site: left hand; ko1 11:26 Follow up: Response: No adverse reaction ph 11:13 Drug: Zofran (Ondansetron) 4 mg Route: IVP; Site: right wrist; ph 11:27 Follow up: Response: No adverse reaction ph 11:15 Drug: morphine 4 mg Route: IVP; Infused Over: 4 mins; Site: right wrist; ph 11:25 Follow up: Response: No adverse reaction; Pain is decreased ph Disposition Summary: 06/22/22 09:32 Hospitalization Ordered Hospitalization Status: Observation zhang Provider: Mariano Shafer cha Location: Telemetry/MedSurg (observation) zhang Condition: Fair zhang Problem: new zhang Symptoms: have improved zhang Bed/Room Type: Standard zhang Room Assignment: 206(06/22/22 14:22) dw Diagnosis - Chest pain, unspecified zhang - Essential (primary) hypertension zhang - Type 2 diabetes mellitus with hyperglycemia zhang Forms: - Medication Reconciliation Form zhang - SBAR form zhang Signatures: Dispatcher [employer] Danette Das RN RN dw Anderson, Corey, MD MD cha Smirch, Shelby, RN RN ss Hall, Patricia, RN RN ph Leal, Jahala, RN RN jl Latia Maravilla RN RN ko1 Corrections: (The following items were deleted from the chart) 13:47 07:45 Home Meds: Coreg 12.5 mg Oral tab 1 tab 2 times per day; [facility] ph 13:47 07:45 Home Meds: levothyroxine 75 mcg tab 1 tab once daily; [facility] ph 13:47 07:45 Home Meds: Seroquel 100 mg Oral tab 1 tab; [facility] ph 14:22 09:32 zhang dw
[2022-06-22 09:45] LABS: ALT/SGPT 27 U/L (12-78); AST/SGOT 6 U/L (15-37); Albumin 3.2 g/dL (3.4-5.0); Alkaline Phosphatase 68 U/L (45-117); BUN Blood Urea Nitrogen 19 mg/dL (7-18); Bicarbonate 24 mmol/L (21-32); Bilirubin Direct 0.1 mg/dL (0-0.2); Bilirubin Total 0.4 mg/dL (0.2-1.0); Glomerular Filtration Rate 72 ml/min (=/>90); Glucose Level 305 mg/dL (74-106); Lipase 272 U/L (73-393); NT PRO-BNP 35 pg/mL (<125); Potassium 4.2 mmol/L (3.5-5.1); Protein, Total 7.5 g/dL (6.4-8.2); Sodium Level 135 mmol/L (136-145)
[2022-06-22 09:54] LABS: Troponin High Sensitivity < 3.0 pg/mL (<58.9)
--- NOTE | 2022-06-22 10:01 | RAD REPORT ---
EXAM DESCRIPTION: CT - Angio Aorta For Dissection - 06/22/2022 9:51 am CLINICAL HISTORY: Chest pain radiating to the back. pe/dissection COMPARISON: No comparisons TECHNIQUE: CT angiography of the aorta was performed with MIPs. All CT scans are performed using dose optimization technique as appropriate and may include automated exposure control or mA/KV adjustment according to patient size. FINDINGS: A left aortic arch is present with normal branching pattern of the great vessels.No acute aortic finding is seen such as aneurysm, penetrating ulcer or dissection. The celiac axis, SMA, PEE and renal arteries are patent. No evidence of pulmonary embolism. The lungs are clear. The liver demonstrates no focal mass or biliary dilatation.The spleen, pancreas, adrenal glands and r ight kidney are within normal limits for arterial phase imaging.Left-sided renal stones are present i nferiorly without hydronephrosis. No bowel obstruction, free fluid or abscess.Normal appendix.No pathologic enlarged lymphadenopathy id entified. Mild lumbosacral degenerative changes. Moderate retained stool throughout the colon. IMPRESSION: No acute aortic finding is demonstrated. Left nephrolithiasis without hydronephrosis.
[2022-06-22] MEDS ORDERED: ENOXAPARIN 100 MG/ML SYR SQ ONE (10:02)
[2022-06-22] MEDS ORDERED: FAMOTIDINE 20 MG/2 ML VIAL IV ONE (10:02)
--- NOTE | 2022-06-22 10:41 | RAD REPORT ---
EXAM DESCRIPTION: US - Extrem Venous W Compress Sascha - 06/22/2022 10:27 am CLINICAL HISTORY: PAIN Bilateral leg edema and swelling. COMPARISON: Extremity Venous Uni Ltd dated 11/11/2016 TECHNIQUE: Real-time sonographic interrogation of the left and right lower extremity deep venous sys tems was performed. FINDINGS: Normal compressibility, flow augmentation, phasic flow and spontaneous flow is identified in both the left and right lower extremity deep venous systems. IMPRESSION: No sonographic evidence of left or right lower extremity deep venous thrombosis.
--- NOTE | 2022-06-22 10:46 | RAD REPORT ---
EXAM DESCRIPTION: US - Abdomen Exam Limited - 06/22/2022 10:27 am CLINICAL HISTORY: ABD PAIN COMPARISON: Renal Ultrasound-Complete dated 04/29/2022 FINDINGS: The gallbladder demonstrates no gallstones. No pericholecystic fluid or gallbladder wall t hickening. The common bile duct is normal measuring 3 mm. The liver demonstrates no findings of intrahepatic biliary dilatation. IMPRESSION: Unremarkable examination.
[2022-06-22 11:39] LABS: SARS-CoV-2 Antigen Rapid Res Negative (Negative)
--- NOTE | 2022-06-22 12:33 | P.HP ---
Certification for Inpatient Patient admitted to: Observation With expected LOS: <2 Midnights Practitioner: I am a practitioner with admitting privileges, knowledge of patient current condition, hospital course, and medical plan of care. Services: Services provided to patient in accordance with Admission requirements found in Title 42 Section 412.3 of the Code of Federal Regulations Patient History Date of Service: 06/22/22 Reason for admission: Chest pain History of Present Illness: 51-year-old woman with a history of diabetes mellitus, hypothyroidism presented to the emergency department with a complaint of chest pain of onset yesterday. Patient was brought in on a wheelchair. She is complaining of generalized weakness and difficulty walking. She also reported generalized abdominal pain. She states that she has gained considerable amount of weight over the past few months despite trying to eat healthy, her blood sugar is difficult to control. She states that she is always hungry. She reports occasional nausea and vomiting, no fever. She denied any dysuria. Initial troponin is negative in the ED. EKG unremarkable, showing sinus rhythm, no ST-T changes, CT dissection unremarkable except nonobstructive nephrolithiasis. Other work-up unremarkable. Patient is placed under observation for further evaluation. Allergies bupropion [From Wellbutrin] Allergy (Verified 08/31/20 03:04) Unknown gabapentin Allergy (Verified 08/31/20 03:04) Unknown ketorolac Allergy (Verified 08/31/20 03:04) Unknown lamotrigine [From Lamictal] Allergy (Verified 08/31/20 03:04) Unknown Sulfa (Sulfonamide Antibiotics) Allergy (Verified 08/31/20 03:04) Unknown tobramycin Allergy (Verified 08/31/20 03:04) Unknown Sulfa (Sulfonam Allergy (Uncoded 11/04/16 06:19) Unknown Sulfa (Sulfonami Allergy (Uncoded 11/11/16 15:25) Unknown Sulfa (Sulfonamide Antib Allergy (Uncoded 11/02/16 22:14) Unknown Home Medications: Aspirin [Aspirin EC 81 MG] 81 mg PO DAILY #30 tablet. 08/31/20 Desog-E.estradiol/E.estradiol [Viorele 28 Day Tablet] 1 tab PO DAILY 08/31/20 Levothyroxine Sodium 1 tab PO DAILY 08/31/20 Metformin HCl [Glucophage*] 1 tab PO DAILY 08/31/20 Simvastatin 1 tab PO BEDTIME 08/31/20 Tramadol HCl [Ultram] 50 mg PO Q6H PRN #30 tablet 08/31/20 Trazodone HCl 1 tab PO BEDTIME 08/31/20 carvediloL [Carvedilol] 1 tab PO BID 08/31/20 clonazePAM [Clonazepam] 0.25 mg PO DAILY PRN 08/31/20 - Past Medical/Surgical History Diabetic: Yes -: depression -: HTN -: Hypothyroidism -: Kidney stones -: kidney stone surgery - Family History Family History: Reviewed- Non-Contributory - Social History Smoking Status: Never smoker Alcohol use: Yes CD- Drugs: No Caffeine use: No Review of Systems Other: Except as documented, all other systems reviewed and negative. Physical Examination - Physical Exam General: Alert, In no apparent distress, Oriented x3 HEENT: PERRLA, Mucous membr. moist/pink, EOMI, Sclerae nonicteric Neck: Supple, JVD not distended, No Thyromegaly, No LAD Respiratory: Clear to auscultation bilaterally, Normal air movement Cardiovascular: No edema, Regular rate/rhythm, Normal S1 S2, No murmurs Capillary refill: <2 Seconds Gastrointestinal: Normal bowel sounds, Soft and benign, Non-distended, No tenderness Musculoskeletal: No swelling, No tenderness Integumentary: No rashes, No erythema, No cyanosis Neurological: Normal speech, Normal strength at 5/5 x4 extr, Cranial nerves 3-12 intact Lymphatics: No axilla or inguinal lymphadenopathy - Studies Laboratory Data (last 24 hrs) 06/22/22 09:03: PT 9.9, INR 0.90 06/22/22 09:03: Sodium 135 L, Potassium 4.2, BUN 19 H, Creatinine 0.96, Glucose 305 H, Magnesium 2.0, Total Bilirubin 0.4, AST 6 L, ALT 27, Alkaline Phosphatase 68, Lipase 272 06/22/22 08:22: WBC 7.20 D, Hgb 14.9, Hct 44.8, Plt Count 220 Assessment and Plan - Problems (Diagnosis) (1) Insulin dependent type 2 diabetes mellitus Current Visit: Yes Status: Acute (2) Hypothyroidism Current Visit: Yes Status: Acute (3) Depression Current Visit: Yes Status: Acute (4) Chest pain Current Visit: No Status: Acute Qualifiers: Chest pain type: unspecified Qualified Code(s): R07.9 - Chest pain, unspecified - Plan Place patient under observation. Patient chest pain appears atypical. Rule out ACS by trending troponin. Patient has generalized nonspecific symptom which I suspect is related to hormonal imbalance. Check FSH, LH, prolactin, cortisol levels. We will also do autoimmune screen given her generalized weakness and diffuse body pains. Reconcile and continue other home medications. Check TSH and free T4 levels. - Advance Directives Does patient have a Living Will: No Does patient have a Durable POA for Healthcare: No
[2022-06-22 15:08] VITALS: BMI 37.8
[2022-06-22] MEDS ORDERED: ONDANSETRON 4 MG/2 ML VIAL IV PRN (15:10)
[2022-06-22] MEDS: NA CHLORIDE 0.9% 1,000 ML IV SCH (15:46)
[2022-06-22] MEDS: INSULIN -REGULAR HUMAN 50 UNIT/0.5 ML ML SQ SCH ×2 (16:44→21:25)
[2022-06-22] MEDS: MORPHINE 2 MG/ML SYR IV PRN ×2 (17:23→21:24)
[2022-06-22 20:26] LABS: Urine Bacteria <20 /HPF (<20); Urine Mucus Slight /HPF (None Seen); Urine RBC <5 /HPF (None Seen)
[2022-06-22 20:28] LABS: Specific Gravity > 1.030 (1.005-1.030); Urine Bilirubin NEGATIVE (Negative); Urine Blood Negative (Negative); Urine Clarity Clear (Clear); Urine Color Light-Yellow (Yellow); Urine Glucose 4+ (Over) (Negative); Urine Protein NEGATIVE (Negative); Urine Urobilinogen Normal (Normal); Urine pH 5.5 (5.0-7.0)
[2022-06-22] MEDS ORDERED: TRAZODONE 50 MG TABLET PO SCH (21:00)
[2022-06-22] MEDS ORDERED: QUETIAPINE 100MG TAB PO SCH (21:00)
[2022-06-22] MEDS ORDERED: TRAMADOL HCL 50 MG TAB PO PRN (22:36)
[2022-06-22] MEDS ORDERED: clonazePAM 0.5 MG TAB PO PRN (22:36)
[2022-06-23 06:11] LABS: Absolute Lymphocytes (CBC) 1.6 K/uL (0.7-4.9); Hematocrit 39.4 % (36.0-45.0); Lymphocytes % 25.9 % (15.3-44.8); MCV 87.9 fL (80-100); MPV 8.1 fL (7.6-11.3); RBC Red Blood Cell Count 4.48 M/uL (3.86-4.86)
[2022-06-23 06:35] LABS: Bilirubin Total 0.4 mg/dL (0.2-1.0); Magnesium 2.2 mg/dL (1.8-2.4); Phosphorus 3.6 mg/dL (2.5-4.9); Protein, Total 6.7 g/dL (6.4-8.2); Thyroid Stimulating Hormone 3.23 uIU/mL (0.360-3.740)
[2022-06-23] MEDS: MORPHINE 2 MG/ML SYR IV PRN (08:19)
[2022-06-23] MEDS: NA CHLORIDE 0.9% 1,000 ML IV SCH (08:20)
[2022-06-23] MEDS ORDERED: LEVOTHYROXINE SOD 0.1 MG TAB PO SCH (09:00)
[2022-06-23] MEDS ORDERED: carvediloL 25 MG TAB PO SCH (09:00)
[2022-06-23] MEDS ORDERED: METFORMIN HCL 500 MG TAB PO SCH (09:00)
[2022-06-23] MEDS: INSULIN -REGULAR HUMAN 50 UNIT/0.5 ML ML SQ SCH ×2 (09:21→11:58)
--- NOTE | 2022-06-23 10:29 | P.DS ---
Admission Date: 06/22/22 Discharge Date: 06/23/22 Disposition: ROUTINE DISCHARGE Discharge Condition: FAIR Reason for Admission: Chest pain - Problems (1) Insulin dependent type 2 diabetes mellitus Current Visit: Yes Status: Acute (2) Hypothyroidism Current Visit: Yes Status: Acute (3) Depression Current Visit: Yes Status: Acute (4) Chest pain Current Visit: No Status: Acute Qualifiers: Chest pain type: unspecified Qualified Code(s): R07.9 - Chest pain, unspecified (5) Adrenal insufficiency Current Visit: Yes Status: Acute Brief History of Present Illness: 51-year-old woman with a history of diabetes mellitus, hypothyroidism presented to the emergency department with a complaint of chest pain of onset yesterday. Patient was brought in on a wheelchair. She is complaining of generalized weakness and difficulty walking. She also reported generalized abdominal pain. She states that she has gained considerable amount of weight over the past few months despite trying to eat healthy, her blood sugar is difficult to control. She states that she is always hungry. She reports occasional nausea and vomiting, no fever. She denied any dysuria. Initial troponin is negative in the ED. EKG unremarkable, showing sinus rhythm, no ST-T changes, CT dissection unremarkable except nonobstructive nephrolithiasis. Other work-up unremarkable. Patient is placed under observation for further evaluation. Hospital Course: Patient placed under observation on the medical floor. Troponin trended negative. Her chest pain appears musculoskeletal, reproducible by palpation. She was also experiencing generalized bodily pains and aches. Given patient multiple endocrine problems including hypothyroidism and diabetes, pituitary hormones-prolactin, FSH LH were ordered as well as cortisol level. Her cortisol level checked twice was very low, less than 0.5 indicating adrenal insufficiency. Her vitals are stable. Patient quite symptomatic with generalized bodily aches and weakness. Patient follows with an bedspread seamer at [facility]. She is informed to follow-up with her bedspread seamer for further evaluation of cortisol insufficiency. She mentioned she is establishing care with Dr. Azevedo at [facility] and has an appointment within the next couple of days. Patient clinical condition and lab results discussed with Dr. Azevedo. Vital Signs/Physical Exam: Temp Pulse Resp BP Pulse Ox 98.2 F 73 19 136/80 97 06/23/22 04:00 06/23/22 09:21 06/23/22 04:00 06/23/22 09:21 06/23/22 04:00 General: Alert, In no apparent distress HEENT: Mucous membr. moist/pink Neck: Supple, JVD not distended Respiratory: Clear to auscultation bilaterally, Normal air movement Cardiovascular: No edema, Regular rate/rhythm, Normal S1 S2 Gastrointestinal: Normal bowel sounds, Soft and benign, Non-distended, No tenderness Musculoskeletal: No swelling Integumentary: No rashes, No cyanosis Neurological: Normal strength at 5/5 x4 extr Laboratory Data at Discharge: WBC 6.20 K/uL (4.3-10.9) 06/23/22 05:28 Hgb 13.4 g/dL (12.0-15.0) 06/23/22 05:28 Hct 39.4 % (36.0-45.0) 06/23/22 05:28 Plt Count 199 K/uL (152-406) 06/23/22 05:28 PT 9.9 SECONDS (9.5-12.5) 06/22/22 09:03 INR 0.90 06/22/22 09:03 Sodium 139 mmol/L (136-145) 06/23/22 05:28 Potassium 4.0 mmol/L (3.5-5.1) 06/23/22 05:28 BUN 16 mg/dL (7-18) 06/23/22 05:28 Creatinine 0.75 mg/dL (0.55-1.3) 06/23/22 05:28 Glucose 183 mg/dL (74-106) H 06/23/22 05:28 Phosphorus 3.6 mg/dL (2.5-4.9) 06/23/22 05:28 Magnesium 2.2 mg/dL (1.8-2.4) 06/23/22 05:28 Total Bilirubin 0.4 mg/dL (0.2-1.0) 06/23/22 05:28 AST 9 U/L (15-37) L 06/23/22 05:28 ALT 23 U/L (12-78) 06/23/22 05:28 Alkaline Phosphatase 57 U/L (45-117) 06/23/22 05:28 Triglycerides 84 mg/dL (<150) 06/23/22 05:28 Cholesterol 166 mg/dL (<200) 06/23/22 05:28 HDL Cholesterol 73 mg/dL (40-60) H 06/23/22 05:28 Cholesterol/HDL Ratio 2.27 06/23/22 05:28 Lipase 272 U/L (73-393) 06/22/22 09:03 Home Medications: Aspirin [Aspirin EC 81 MG] 81 mg PO DAILY #30 tablet. 08/31/20 Desog-E.estradiol/E.estradiol [Viorele 28 Day Tablet] 1 tab PO DAILY 08/31/20 Levothyroxine Sodium 1 tab PO DAILY 08/31/20 Metformin HCl [Glucophage*] 1 tab PO DAILY 08/31/20 Simvastatin 1 tab PO BEDTIME 08/31/20 Tramadol HCl [Ultram] 50 mg PO Q6H PRN #30 tablet 08/31/20 Trazodone HCl 1 tab PO BEDTIME 08/31/20 carvediloL [Carvedilol] 1 tab PO BID 08/31/20 clonazePAM [Clonazepam] 0.25 mg PO DAILY PRN 08/31/20 Insulin Glargine,Hum.rec.anlog [Lantus Solostar] 20 units SQ BEDTIME 06/22/22 Quetiapine [Seroquel*] 1 tab PO BEDTIME 06/22/22 Hydrocodone 5/APAP 325 [Stanton 5/325] 1 tab PO Q6H PRN #15 tab 06/23/22 Hydrocortisone [Cortef] 20 mg PO TID #90 tab 06/23/22 New Medications: Hydrocortisone [Cortef] 20 mg PO TID #90 tab Hydrocodone 5/APAP 325 [Stanton 5/325] 1 tab PO Q6H PRN #15 tab PRN Reason: Pain Physician Discharge Instructions: Please follow up with your Soap Drier Operator for further evaluation for cortisol insufficiency. Diet: ADA Activity: Fall precautions Followup: OOT,OOT [Primary Care Provider] -
[2022-06-23 12:04] VITALS: BP 130/77; TEMP 97.3
[2022-06-23 12:15] VITALS: O2SAT 96
--- NOTE | 2022-06-23 15:08 | EKG ---
Test Date: 2022-06-22 Test Time: 07:39:04 Alligator Hunter: APRIL MEASUREMENT RESULTS: Intervals: Rate: 79 PA: 142 QRSD: 86 QT: 380 QTc: 435 [place]: P: 37 PA: 142 QRS: 34 T: 46 INTERPRETIVE STATEMENTS: Normal sinus rhythm Normal ECG Compared to ECG 05/31/2022 18:56:46 No significant changes Electronically Signed On 06-23-22 15:07:04 CDT by Jose Segovia
[2022-06-23] MEDS ORDERED: ATORVASTATIN 10 MG TAB PO SCH (21:00)
[2022-06-23] MEDS ORDERED: INSULIN GLARGINE 100 UNIT/ML SQ SCH (21:00)
== END 2022-06-23 13:50 | disposition home or self-care (01) ==
LOC: ER 07:34 → ERHOLD 12:11 → 2ND 14:52
PROVIDERS: ADMIT Internal Medicine; ATTEND Internal Medicine
DX: E27.40 Unspecified adrenocortical insufficiency (principal); E11.9 Type 2 diabetes mellitus without complications; Z79.4 Long term (current) use of insulin; E03.9 Hypothyroidism, unspecified; F32.A Depression, unspecified; Z88.2 Allergy status to sulfonamides; Z88.1 Allergy status to other antibiotic agents; Z88.8 Allergy status to other drugs, medicaments and biological substances; Z20.822 Contact with and (suspected) exposure to COVID-19
CPT/HCPCS: 93005; 87088; 85025 ×2; 87086; 80048; 36415; 83735 ×2; 84100; 85610; 80061; 82947 ×5; 80076; 84443; 81003; 84484 ×3; 84439; 83690; 80053; 82533 ×2; 86225; 86255; 86800; 83880; 83001; 83002; 84146; 71275; 74175; 71045; 93970; 76705; 97116 ×2; 97161; 94760 ×3; 96372; 99284; 87811; Q9967; J1815 ×4; J1650; J2270 ×3; J7030 ×3; J2405 ×2; G0378 ×3

== ENCOUNTER 2022-10-21 15:27 | Emergency (ER) | payer OTHER ==
--- OUTSIDE RECORDS SUMMARY | 2022-10-21 15:39 | XMS REPORT | Continuity of Care Document ---
:1970 Author Organization [facility] t Address [address] [place] [address] Care Team Providers Name Role Phone Fabian Foster MD Primary Care Physician [phone] ARUN MERCER Attending Clinician Unavailable JOHNNIE AZEVEDO Attending Clinician Unavailable ISIS RAMOS Attending Clinician Unavailable ISIS RAMOS Attending Clinician Unavailable King DMITRY MD, James C Attending Clinician LEX KLINE III Attending Clinician Unavailable Unknown, Attending Attending Clinician Unavailable FABIAN FOSTER Attending Clinician Unavailable Provider, [facility] Attending Clinician Unavailable AURORA AVENDAÑO Attending Clinician Unavailable Aurora Avendaño MD Attending Clinician LAB90 Attending Clinician Unavailable Ryan Summer FIGUEREDO Attending Clinician RYANSUMMER JOY Attending Clinician Unavailable LAB47 Attending Clinician Unavailable KAUR TIPTON Attending Clinician Unavailable Johnnie Azevedo DO Attending Clinician MD DAKSHA Attending Clinician Unavailable Arthur Lucas MD Attending Clinician Fabian Foster MD Attending Clinician [phone] Ruslan GRIFFIN, Arun M Attending Clinician Eve EID, Tavares Arciniega Attending Clinician CECILIA ABRAHAM Attending Clinician Unavailable CECILIA ABRAHAM Attending Clinician Unavailable Simona EID, Pat Attending Clinician PAT JARVIS Attending Clinician Unavailable ARTHUR LUCAS Attending Clinician Unavailable LISSETTE MEDEROS Attending Clinician Unavailable Pearl EID, Pilar Nielsen Attending Clinician Andres VEGA, Kendra Gray Attending Clinician Unavailable KAREN TOMLIN Attending Clinician Unavailable Nabor WIND INSTRUMENT REPAIRER, Karen Attending Clinician Shena Holguin Attending Clinician Doctor Unassigned, [facility] Attending Clinician Unavailable Lab, Ang - Db Attending Clinician Unavailable Samantha WIND INSTRUMENT REPAIRER, Steve Attending Clinician STEVE SINGH Attending Clinician Unavailable RAJAT NORIEGA Attending Clinician Unavailable Leann EID, Rajat Attending Clinician JACQUE MARES Attending Clinician Unavailable Only, Ajay Db Test Attending Clinician Unavailable PILAR KANG Attending Clinician Unavailable Marizol Manning Attending Clinician MARIZOL GA Attending Clinician Unavailable Natalie VEGA, Danii Attending Clinician Unavailable 2, [facility] Attending Clinician Unavailable Nathaniel VEGA, Farhad Nielsen Attending Clinician Unavailable Esther Kinsey Attending Clinician Pob, [facility] Main Attending Clinician Unavailable Gordon EID, Chrissy Garcia Attending Clinician [phone] Man VEGA, Heather Raymundo Attending Clinician Unavailable Arcenio Hand MD Attending Clinician Bruce Guardado MD, Huy Mcmullen Attending Clinician [phone] Eduardo EID, Alivia Attending Clinician ESTHER BRAR Attending Clinician Unavailable AGUSTÍN EDEN Attending Clinician Unavailable Provider, [facility] Attending Clinician Unavailable Katty WIND INSTRUMENT REPAIRER, Lissette Attending Clinician Faby Luna PA-C Attending Clinician Lui Wu MD Attending Clinician Steve Sanchez Attending Clinician Agustín Eden MD Attending Clinician FABY LUNA Attending Clinician Unavailable ADAM BRISENO Attending Clinician Unavailable Rory EID, Adam Moreno Attending Clinician PAT JARVIS Admitting Clinician Unavailable RAJAT NORIEGA Admitting Clinician Unavailable Rajat Noriega MD Admitting Clinician Bruce Guardado MD, Huy Mcmullen Admitting Clinician [phone] AGUSTÍN EDEN Admitting Clinician Unavailable FBAY LUNA Admitting Clinician Unavailable Payers Payer Name Policy Type Policy Number Effective Date Expiration Date S ource [employer] MEDICARE [id number] 2022 ADVANTAGE HMO 00:00:00 [employer] MEDICARE [id number] ADVANTAGE [facility] [id number] 2019 MEDICARE ADVANTAGE 00:00:00 [employer] MEDICARE 7 [id number] 2022 [id number] GOLD 00:00:00 PLUS 2021 Problems Condition Condition Condition Status Onset Resolution Last Treating Co mments Source Name Details Category Date Date Treatment Clinician Date 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 2021-10 Zak holcomb with with 2-19 [facility] diabetic diabetic 00:00: - mixed mixed 00 Externa hyperlipid hyperlipid l emia emia MAIRA MAIRA Disease Active 2021-10 Reema (generaliz (generaliz 1-18 Se ybold ed anxiety ed anxiety 00:00: - disorder) disorder) 00 Exte rna l Primary Primary Disease Active 2021-10 Reema insomnia insomnia 1-18 Seybol d 00:00: - 00 Externa l Primary Primary Disease Active Reema adrenal adrenal 9-21 [facility] insufficie insufficie 00:00: - ncy ncy 00 Externa l 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 9-20 Se ybold to to 00:00: - conditions conditions 00 Ex terna classified classified l elsewhere elsewhere Adrenal Adrenal Disease Active Reema insufficie insufficie 9- Se ybold ncy ncy 00:00: - 00 Externa l Primary Primary Disease Active Reema hypertensi hypertensi 9 Se ybold on on 00:00: - 00 Externa l Migraine Migraine Disease Active Kelse y with aura with aura 9 Seyb old and and 00:00: - without without 00 Externa status status l migrainosu migrainosu s, not s, not intractabl intractabl e e Morbid Morbid Disease Active Reema obesity obesity 7-05 [facility] 00:00: - 00 Externa l Controlled Controlled Disease Active Damir tapan type 2 type 2 629 [facility] diabetes diabetes 00:00: - mellitus mellitus 00 [employer] a without without l complicati complicati on, with on, with long-term long-term current current use of use of insulin insulin Hyperlipid Hyperlipid Disease Active Damir tapan emia emia 5-17 [facility]bold 00:00: - 00 Externa l 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 4-19 Seybol d mellitus mellitus 00:00: - without without 00 Externa complicati complicati l on, with on, with senior living senior living current current use of use of insulin 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 Zak sey current current 4-19 [facility]bold use of use of 00:00: - insulin insulin 00 Externa l Hypothyroi Hypothyroi Disease Active Damir salomóny dism dism 4-19 [facility] (acquired) (acquired) 00:00: - 00 Externa l 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 4-19 Se ybold in in 00:00: - remission remission 00 Exte rna l Acquired Acquired Disease Active Unive rs hypothyroi hypothyroi 6-09 it y of dism dism 00:00: [address] Branch Dyslipidem Dyslipidem Disease Active U nivers ia ia 6-09 ity of 00:00: [place] [facility] Vitamin D Vitamin D Disease Active Uni vers deficiency deficiency 5-06 it y of 00:00: [place] [facility] Elevated Elevated Disease Active Unive rs liver liver 5-05 ity of enzymes enzymes 00:00: [place] [facility] Uncontroll Uncontroll Disease Active U brenda ed type 2 ed type 2 4-20 ity of diabetes diabetes 00:00: [place] mellitus mellitus 00 Medica l with with Branch insulin insulin therapy therapy DKA, type DKA, type Disease Active Uni vers 2, not at 2, not at 4-20 ity of goal goal 00:00: [place] [facility] Lumbar Lumbar Disease Active Overview: Univer s spondylosi spondylosi 04-11 Formattin ity of s s 00:00: g of this [place] 00 note Medical might be Branch different from the original. Added automatic ally from request for surgery [id number] Menorrhagi Menorrhagi Disease Active U nivers a with a with 2-28 ity of irregular irregular 00:00: Jose Antonio s cycle cycle 00 Medical Branch Obesity Obesity Disease Active Univers with body with body 2-27 ity of mass index [place] 30 or 00 [facility] Branch Intramural Intramural Disease Active Overview : [...] of human human 00:00: g of this [place] papillomav papillomav 00 note Me dical irus (HPV) irus (HPV) might be Branch DNA test DNA test different positive positive from the original. 10/28/18 - pap smear normal; HPV 16 positive - colposcop y normal. ECC benign. 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 1-17 ity of 00:00: [address] Bilateral Bilateral Disease Active Uni vers lower lower 7-20 [place] of extremity [place] [facility] Overweight Overweight Disease Active U nivers (BMI (BMI 7-20 ity of 25.0-29.9) 25.0-29.9) [place] [facility] Low back Low back Disease Active Unive rs pain pain 3-14 ity of 00:00: [address] Hydronephr Hydronephr Disease Active U nivers osis osis 3-14 ity of 00:00: [address] History of History of Disease Active U nivers urinary urinary 3-14 ity of stone stone 00:00: [address] Loss of Loss of Disease Active Univers muscle muscle 3-14 ity of tone of tone of 00:00: [place] bladder bladder 00 [facility] Staph skin Staph skin Disease Active U nivers infection infection ity of [facility] Prediabete Prediabete Disease Active U nivers s s ity of [facility] No known No known Disease Kelse y active active [facility] problems problems Allergies, Adverse Reactions, Alerts Allergy Allergy Status Severity Reaction(s) Onset Inactive Treating Comm ents Source Name Type Date Date Clinician Bupropio Propensi Active 2019-10 Other Reema n ty to 1-20 reaction( [place] adverse 00:00: s): - reaction 00 Unknown Externa s l Gabapent Propensi Active 2019-10 Other Reema in ty to 1-20 reaction( [place] adverse 00:00: s): - reaction 00 Unknown Externa s l Lamotrig Propensi Active Rash Alexandremarvin Benavidez ine ty to 7 Supa [place] adverse 00:00: - reaction 00 Externa s l Lamotrig Propensi Active Rash Alexandre Benavidez ine ty to 7 Supa [place] adverse 00:00: reaction 00 s Minocycl Propensi Active Rash 2017-0 Reema ine ty to 7-11 [place] adverse 00:00: - reaction 00 Externa s l Sulfa Propensi Active Rash 2017-0 Reema Drugs ty to 7-11 [place] adverse 00:00: reaction 00 s Minocycl Propensi Active Rash 2017-0 Univer s ine ty to 7-11 ity of adverse 00:00: [place] reaction 00 Medical s Branch Bupropio Propensi Active Swelling 2017-0 Univ ers n ty to 7-11 ity of adverse 00:00: [place] reaction 00 Medical s Branch Sulfa Propensi Active Rash 2017-0 Univers (Sulfona ty to 711 ity of mide adverse 00:00: [place] Antibiot reaction 00 Medica l ics) s Branch LAMOTRIG DRUG Active High Rash 2017-0 Univers INE INGREDI 7-11 ity of 00:00: [place] 00 Medical Branch MINOCYCL DRUG Active Rash 2017-0 Univers INE INGREDI 7- ity of 00:00: [place] 00 Medical Branch SULFA Drug Active Rash 2017-0 Univers (SULFONA Class 7- ity of MIDE 00:00: [place] ANTIBIOT 00 Medical ICS) Branch BUPROPIO DRUG Active Swelling 2017-0 Univer s N INGREDI 7-11 ity of 00:00: [place] 00 Medical Branch MINOCYCL Allergy Active Low Rash 2012-[address] [facility] Sulfa Propensi Active Rash 2013-0 Rash and Reema Drugs ty to 6-12 throat Seybold adverse 00:00: swelling - reaction 00 Externa s l SULFA Allergy Active Low Rash 2012-[address] [facility] (SULFONA 6-12 [facility] MIDE 00:00: Medical ANTIBIOT 00 Center ICS) TOBRAMYC Allergy Active Low Rash 2012-[address] [facility] [address] IN 6-12 [facility] Center Sulfa Drug Active Rash 2012-[address] [facility] (Sulfona Allergy 6-12 throat [facility] mide 00:00: swelling Medical Antibiot 00 Center ics) Minocycl Drug Active Rash 2012-[address] [facility] ine Allergy 6-12 [facility] 00[facility] Medical 00 Center Sulfa Drug Active Rash 2012-[address] [facility] (Sulfona Allergy 6-12 throat [facility] mide 00:00: swelling Medical Antibiot 00 Center ics) Tobramyc Drug Active Rash [facility] in Allergy 03-23 [facility] Medical [facility] Center Bupropio Propensi Active Other 1900-0 Reema n ty to 10-12 Seybold adverse 00:00: reaction 00 s Doxycycl Propensi Active Rash 1900-0 Reema ine ty to 10-12 [facility] Monohydr adverse 00:00: ate reaction 00 s Tobramyc Propensi Active 1900-0 Other Reema in ty to 10-12 reaction( [place]bold adverse 00:00: s): - reaction 00 Unknown - Exter na s See l commentsO ther reaction( s): Unknown Bupropio Drug Active Other - See 190-0 Uni vers n Hcl Allergy comments 10-12 ity of 00:00: [place] [facility] Sulfamet Drug Active Other - See 190-0 Uni vers hoxazole Allergy comments 10-12 ity o f 00:00: [place] [facility] Tobramyc Drug Active Unknown - 1900-0 Unive rs in Allergy See comments 10-12 ity of 00:00: [place] 00 [facility] Branch BUPROPIO DRUG Active Other-Cmnt 1900-0 Univ ers N HCL INGREDI 10-12 ity of 00:00: [address] SULFAMET DRUG Active Other-Cmnt 1900-0 Univ ers HOXAZOLE INGREDI 10-12 ity of 00:00: [address] TOBRAMYC DRUG Active Unknown-Cmnt 1900-0 Un fernanda IN INGREDI 10-12 ity of 00:00: [address] Social History Social Habit Start Date Stop Date Quantity Comments Source Exposure to 2022-10-05 2022-10-15 Not sure University of SARS-CoV-2 00:00:00 15:18:00 [facility] (event) [place] Tobacco use and 2022-08-26 2022-08-26 Smokeless tobacco Un iversity of exposure 00:00:00 00:00:00 non-user [facility] Alcohol intake 2013-03-23 2013-03-[address] [facility] 00:00:00 00:00:00 non-drinker of Medical Ce nter alcohol (finding) Sex Ass[birth year] At [birth year] [place] [facility] 00:00:00 00:00:00 Smoking Status Start Date Stop Date Source Tobacco smoking consumption [facility] unknown Never smoked tobacco [facility] Medications Ordered Filled Start Stop Current Ordering Indication Dosage Frequency Signature Comments Components Source Medication Medication Date Date Medication? Clinician (SIG) Name Name levoFLOXaci 2022-0 Yes [id number] 750mg Take 1 Reema n 1-09 tablet [place] (Levaquin) 00:00: (750 mg - 750 MG oral 00 total) by Ext mery Tablet mouth l daily guaiFENesin 2022-0 Yes 5mL [id number] Take 5 mL Reema -Codeine 1-09 [id number] by mouth 3 [place] (Cheratussi 00:00: 3D times - n AC) 00 daily as Externa 100-10 needed for l MG/5ML oral cough Syrup predniSONE 2022-0 Yes [id number] 40mg Take 2 U nivers 20 mg 1-04 tablets by ity of tablet 00:00: mouth in [place] 00 the Medical morning. Branch For 7 days then 1 / day for 7 days predniSONE 2022-0 Yes [id number] 40mg Take 2 U nivers 20 mg 1-04 tablets by ity of tablet 00:00: mouth in [place] 00 the Medical morning. Branch For 7 days then 1 / day for 7 days promethazin 3-0 Yes [id number] 5mL Take 5 mL Univers e-dextromet 1-04 by mouth 4 it y of horphan 00:00: (four) [place] 6.25-15 00 times Medical mg/5 mL daily. Branch syrup predniSONE 3-0 Yes [id number] 40mg Take 2 U nivers 20 mg 1-04 tablets by ity of tablet 00:00: mouth in [place] 00 the Medical morning. Branch For 7 days then 1 / day for 7 days promethazin 3-0 Yes [id number] 5mL Take 5 mL Univers e-dextromet 1-04 by mouth 4 it y of horphan 00:00: (four) [place] 6.25-15 00 times Medical mg/5 mL daily. Branch syrup predniSONE 3-0 Yes [id number] 40mg Take 2 U nivers 20 mg 1-04 tablets by ity of tablet 00:00: mouth in [place] 00 the Medical morning. Branch For 7 days then 1 / day for 7 days phenylephri 2023-0 Yes [id number] 5mL Take 5 mL U nivers ne-prometha 1-04 by mouth 4 it y of zine-codein 00:00: (four[place] 6.25-5-10 00 times Medical mg/5 mL daily as Branch syrup needed for Cough. Indication s: acute pain promethazin 2022-0 Yes [id number] 5mL Take 5 mL Univers e-dextromet 1-04 by mouth 4 it y of horphan 00:00: (four) [place] 6.25-15 00 times Medical mg/5 mL daily. Branch syrup predniSONE 2022-0 Yes [id number] 40mg Take 2 U nivers 20 mg 1-04 tablets by ity of tablet 00:00: mouth in [place] 00 the Medical morning. Branch For 7 days then 1 / day for 7 days phenylephri 2022-0 Yes [id number] 5mL Take 5 mL U nivers ne-prometha 1-04 by mouth 4 it y of zine-codein 00:00: (four[place] 6.25-5-10 00 times Medical mg/5 mL daily as Branch syrup needed for Cough. Indication s: acute pain phenylephri 3-0 2022- Yes [id number] 5mL Take 5 mL Univers ne-prometha 1-04 -12 by mouth 4 i ty of zine-codein 00:00: 05:59 (four) [place] 6.25-5-10 00 :00 times Medical mg/5 mL daily as Branch syrup needed for Cough for up to 7 days. Indication s: acute pain phenylephri 3-0 2023- Yes [id number] 5mL Take 5 mL Univers ne-prometha 1-04 -12 by mouth 4 i ty of zine-codein 00:00: 05:59 (four) [place] e 6.25-5-10 00 :00 times Medical mg/5 mL daily as Branch syrup needed for Cough for up to 7 days. Indication s: acute pain phenylephri 3-0 2023- Yes [id number] 5mL Take 5 mL Univers ne-prometha 1-04 -12 by mouth 4 i ty of zine-codein 00:00: 05:59 (four) [place] e 6.25-5-10 00 :00 times Medical mg/5 mL daily as Branch syrup needed for Cough for up to 7 days. Indication s: acute pain predniSONE 2022- No [id number] 40mg Take 2 Univers 20 mg 10-15 tablets by ity of tablet 00:00: 00:00 mouth in [place] 00 :00 the Medical morning. Branch For 7 days then 1 / day for 7 days phenylephri 2022- No [id number] 5mL Take 5 mL Univers ne-prometha 10-15 by mouth 4 i ty of zine-codein 00:00: 00:00 (four) [place] 6.25-5-10 00 :00 times Medical mg/5 mL daily as Branch syrup needed for Cough for up to 7 days. Indication s: acute pain Clonazepam Yes [id number] .125mg Q.5D Take 1 Reema 0.125 MG -03 tablet [place] oral TABLET 00:00: (0.125 mg - DISPERSIBLE 00 total) by Ext mery mouth 2 l times daily as needed Trazodone Yes [id number] TAKE ONE Reema HCl 50 MG -03 TABLET BY Seybo ld oral Tablet 00:00: MOUTH - 00 EVERY Externa EVENING l promethazin 2021-10- Yes [id number] 5mL Take 5 mL Univers e-dextromet 10-18 by mouth 4 i ty of horphan 00:00: 05:59 (four) [place] 6.25-15 00 :00 times Medical mg/5 mL daily for Branch syrup 7 days. promethazin 2021-10- Yes [id number] 5mL Take 5 mL Univers e-dextromet 10-18 by mouth 4 i ty of horphan 00:00: 05:59 (four) [place] 6.25-15 00 :00 times Medical mg/5 mL daily for Branch syrup 7 days. promethazin 2021-10- Yes [id number] 5mL Take 5 mL Univers e-dextromet 10-18 by mouth 4 i ty of horphan 00:00: 05:59 (four) [place] 6.25-15 00 :00 times Medical mg/5 mL daily for Branch syrup 7 days. promethazin 2021-10- No [id number] 5mL Take 5 mL Univers e-dextromet 04 by mouth 4 i ty of horphan 00:00: 00:00 (four) [place] 6.25-15 00 :00 times Medical mg/5 mL daily for Branch syrup 7 days. ipratropium 2021-10- Yes [id number] 3mL U nivers -albuteroL 10-10 ity of (DUONEB) 23:15: 11:14 [place] 0.5 mg-3 00 :00 Medical mg(2.5 mg Branch base)/3 mL nebulizer solution 3 mL ipratropium 2021-10- Yes [id number] 3mL U nivers -albuteroL 10-10 ity of (DUONEB) 23:15: 11:14 [place] 0.5 mg-3 00 :00 Medical mg(2.5 mg Branch base)/3 mL nebulizer solution 3 mL ipratropium 2021-10- Yes [id number] 3mL U nivers -albuteroL 10-10 ity of (DUONEB) 23:15: 11:14 [place] 0.5 mg-3 00 :00 Medical mg(2.5 mg Branch base)/3 mL nebulizer solution 3 mL ipratropium 2021-10- Yes [id number] 3mL U nivers -albuteroL 10-10 ity of (DUONEB) 23:15: 11:14 [place] 0.5 mg-3 00 :00 Medical mg(2.5 mg Branch base)/3 mL nebulizer solution 3 mL ipratropium 2021-10- No [id number] 3mL U nivers -albuteroL 10-09 ity of (DUONEB) 23:15: 22:30 [place] 0.5 mg-3 00 :00 Medical mg(2.5 mg Branch base)/3 mL nebulizer solution 3 mL ipratropium 2021-10- No [id number] 3mL 3 mL, Univers -albuteroL 10-09 Inhalation it y of (DUONEB) 23:15: 22:30 , ONCE, 1 [place] as 0.5 mg-3 00 :00 dose, On Medical mg(2.5 mg Carlyn Branch base)/3 mL 10/09/22 nebulizer at 1715, solution 3 Routine mL HYDROcodone 2021-10- No hydrocodon Univers -acetaminop - 12-29 e 10 ity of hen 10-325 14:04: 00:00 mg-acetami [place] mg tablet 56 :00 nophen 325 Medi owen mg tablet Branch HYDROcodone 2021-10- No hydrocodon Univers -acetaminop 2- 12-29 e 10 ity of hen 10-325 14:04: 00:00 mg-acetami [place] mg tablet 56 :00 nophen 325 Medi owen mg tablet Branch HYDROcodone 2021-10- No hydrocodon Univers -acetaminop 2- 12-29 e 10 ity of hen 10-325 14:04: 00:00 mg-acetami [place] mg tablet 56 :00 nophen 325 Medi owen mg tablet Branch HYDROcodone 2021-10- No hydrocodon Univers -acetaminop 2- 12-29 e 10 ity of hen 10-325 14:04: 00:00 mg-acetami [place] mg tablet 56 :00 nophen 325 Medi owen mg tablet Branch HYDROcodone 2021-10- No hydrocodon Univers -acetaminop - 12-29 e 10 ity of hen 10-325 14:04: 00:00 mg-acetami [place] mg tablet 56 :00 nophen 325 Medi owen mg tablet Branch HYDROcodone 2021-10- No hydrocodon Univers -acetaminop 2- 12-29 e 10 ity of hen 10-325 14:04: 00:00 mg-acetami [place] mg tablet 56 :00 nophen 325 Medi owen mg tablet Branch HYDROcodone 2021-10- No hydrocodon Univers -acetaminop 2-29 12-29 e 10 ity of hen 10-325 14:04: 00:00 mg-acetami [place] mg tablet 56 :00 nophen 325 Medi owen mg tablet Branch albuterol 2021-10 Yes [id number] 2{puff} Inhale 2 Univers 90 2-29 Puffs ity of mcg/actuati 00:00: every 6 [place] as on inhaler 00 (six) Medical hours as Branch needed for Shortness of Breath or Wheezing. codeine-gua 2021-10 Yes 5mL Take 5 mL U nivers ifenesin 2-29 by mouth ity of 10-100 mg/5 00:00: every 6 [place] mL oral 00 (six) Medical solution hours as Branch needed for Cough. Indication s: cough albuterol 2021-10 Yes [id number] 2{puff} Inhale 2 Univers 90 2-29 Puffs ity of mcg/actuati 00:00: every 6 [place] as on inhaler 00 (six) Medical hours as Branch needed for Shortness of Breath or Wheezing. albuterol 2021-10 Yes [id number] 2{puff} Inhale 2 Univers 90 2-29 Puffs ity of mcg/actuati 00:00: every 6 [place] on inhaler 00 (six) Medical hours as Branch needed for Shortness of Breath or Wheezing. codeine-gua 2021-10 Yes 5mL Take 5 mL U nivers ifenesin 2-29 by mouth ity of 10-100 mg/5 00:00: every 6 [place] mL oral 00 (six) Medical solution hours as Branch needed for Cough. Indication s: cough albuterol 2021-10 Yes [id number] 2{puff} Inhale 2 Univers 90 2-29 Puffs ity of mcg/actuati 00:00: every 6 [place] on inhaler 00 (six) Medical hours as Branch needed for Shortness of Breath or Wheezing. benzonatate 2021-10 Yes [id number] 200mg Take 2 Univers 100 mg 2-29 capsules ity of capsule 00:00: by mouth [place] 00 every 8 Medical (eight) Branch hours as needed for Cough. codeine-gua 2021-10 Yes 10mL Take 10 mL Univers ifenesin 2-29 by mouth ity of 10-100 mg/5 00:00: at [place] mL oral 00 bedtime. Medical solution Indication Branc h s: cough albuterol 2021-10 Yes [id number] 2{puff} Inhale 2 Univers 90 2-29 Puffs ity of mcg/actuati 00:00: every 6 [place] as on inhaler 00 (six) Medical hours as Branch needed for Shortness of Breath or Wheezing. benzonatate 2021-10 Yes [id number] 200mg Take 2 Univers 100 mg 2-29 capsules ity of capsule 00:00: by mouth [place] 00 every 8 Medical (eight) Branch hours as needed for Cough. codeine-gua 2021-10 Yes 10mL Take 10 mL Univers ifenesin 2-29 by mouth ity of 10-100 mg/5 00:00: at [place] mL oral 00 bedtime. Medical solution Indication Branc h s: cough albuterol 2021-10 Yes [id number] 2{puff} Inhale 2 Univers 90 2-29 Puffs ity of mcg/actuati 00:00: every 6 [place] as on inhaler 00 (six) Medical hours as Branch needed for Shortness of Breath or Wheezing. benzonatate 2021-10 Yes [id number] 200mg Take 2 Univers 100 mg 2-29 capsules ity of capsule 00:00: by mouth [place] 00 every 8 Medical (eight) Branch hours as needed for Cough. codeine-gua 2021-10 Yes 10mL Take 10 mL Univers ifenesin 2-29 by mouth ity of 10-100 mg/5 00:00: at [place] mL oral 00 bedtime. Medical solution Indication Branc h s: cough albuterol 2021-10 Yes [id number] 2{puff} Inhale 2 Univers 90 2-29 Puffs ity of mcg/actuati 00:00: every 6 [place] on inhaler 00 (six) Medical hours as Branch needed for Shortness of Breath or Wheezing. benzonatate 2021-10 Yes [id number] 200mg Take 2 Univers 100 mg 2-29 capsules ity of capsule 00:00: by mouth [place] 00 every 8 Medical (eight) Branch hours as needed for Cough. codeine-gua 2021-10 Yes 10mL Take 10 mL Univers ifenesin 2-29 by mouth ity of 10-100 mg/5 00:00: at [place] mL oral 00 bedtime. Medical solution Indication Branc h s: cough albuterol 2021-10 Yes [id number] 2{puff} Inhale 2 Univers 90 2-29 Puffs ity of mcg/actuati 00:00: every 6 [place] as on inhaler 00 (six) Medical hours as Branch needed for Shortness of Breath or Wheezing. benzonatate 2021-10 Yes [id number] 200mg Take 2 Univers 100 mg 2-29 capsules ity of capsule 00:00: by mouth [place] 00 every 8 Medical (eight) Branch hours as needed for Cough. codeine-gua 2021-10 Yes 10mL Take 10 mL [facility] ifenesin 2-29 by mouth ity of 10-100 mg/5 00:00: at [place] mL oral 00 bedtime. Medical solution Indication Branc h s: cough albuterol 2021-10 Yes [id number] 2{puff} Inhale 2 [facility] 90 2-29 Puffs ity of mcg/actuati 00:00: every 6 [place] as on inhaler 00 (six) Medical hours as Branch needed for Shortness of Breath or Wheezing. codeine-gua 2021-10 Yes 5mL Take 5 mL [facility] n[facility] ifenesin 2-29 by mouth ity of 10-100 mg/5 00:00: every 6 [place] mL oral 00 (six) Medical solution hours as Branch needed for Cough. Indication s: cough benzonatate 2021-10 Yes [id number] 200mg Take 2 [facility] 100 mg 2-29 capsules ity of capsule 00:00: by mouth [place] 00 every 8 Medical (eight) Branch hours as needed for Cough. codeine-gua 2021-10 Yes 10mL Take 10 mL [facility] ifenesin 2-29 by mouth ity of 10-100 mg/5 00:00: at [place] mL oral 00 bedtime. Medical solution Indication Branc h s: cough albuterol 2021-10 Yes [id number] 2{puff} Inhale 2 [facility] 90 2-29 Puffs ity of mcg/actuati 00:00: every 6 [place] as on inhaler 00 (six) Medical hours as Branch needed for Shortness of Breath or Wheezing. benzonatate 2021-10 Yes [id number] 200mg Take 2 [facility] 100 mg 2-29 capsules ity of capsule 00:00: by mouth [place] 00 every 8 Medical (eight) Branch hours as needed for Cough. albuterol 2021-10 Yes [id number] 2{puff} Inhale 2 [facility] 90 2-29 Puffs ity of mcg/actuati 00:00: every 6 [place] as on inhaler 00 (six) Medical hours as Branch needed for Shortness of Breath or Wheezing. benzonatate 2021-10 Yes [id number] 200mg Take 2 [facility] 100 mg 2-29 capsules ity of capsule 00:00: by mouth [place] 00 every 8 Medical (eight) Branch hours as needed for Cough. albuterol 2021-10 Yes [id number] 2{puff} Inhale 2 [facility] 90 2-29 Puffs ity of mcg/actuati 00:00: every 6 [place] as on inhaler 00 (six) Medical hours as Branch needed for Shortness of Breath or Wheezing. benzonatate 2021-10 Yes [id number] 200mg Take 2 [facility] 100 mg 2-29 capsules ity of capsule 00:00: by mouth [place] [id number] every 8 Medical (eight) Branch hours as needed for Cough. albuterol 2021-10 Yes [id number] 2{puff} Inhale 2 [facility] 90 2-29 Puffs ity of mcg/actuati 00:00: every 6 [place] as on inhaler 00 (six) Medical hours as Branch needed for Shortness of Breath or Wheezing. benzonatate 2021-10 Yes [id number] 200mg Take 2 [facility] 100 mg 2-29 capsules ity of capsule 00:00: by mouth [place] [address] every 8 Medical (eight) Branch hours as needed for Cough. albuterol 2021-10 Yes [id number] 2{puff} Inhale 2 [facility] 90 2-29 Puffs ity of mcg/actuati 00:00: every 6 [place] as on inhaler 00 (six) Medical hours as Branch needed for Shortness of Breath or Wheezing. benzonatate 2021-10 Yes [id number] 200mg Take 2 [facility] 100 mg 2-29 capsules ity of capsule 00:00: by mouth [place] [address] every 8 Medical (eight) Branch hours as needed for Cough. albuterol 2021-10 Yes [id number] 2{puff} Inhale 2 [facility] 90 2-29 Puffs ity of mcg/actuati 00:00: every 6 [place] as on inhaler 00 (six) Medical hours as Branch needed for Shortness of Breath or Wheezing. benzonatate 2021-10 Yes [id number] 200mg Take 2 [facility] 100 mg 2-29 capsules ity of capsule 00:00: by mouth [place] [address] every 8 Medical (eight) Branch hours as needed for Cough. amoxicillin 2021-10- Yes [id number] 1{tbl} Take 1 [facility] -clavulanat 2-29 -06 tablet by it y of e 00:00: 05:59 mouth in [place] (AUGMENTIN) 00 :00 the Medical 875-125 mg morning Branch per tablet and 1 tablet in the evening. Do all this for 7 days. amoxicillin 2021-10- Yes [id number] 1{tbl} Take 1 [facility] -clavulanat 2-29 01-06 tablet by it y of e 00:00: 05:59 mouth in [place] (AUGMENTIN) 00 :00 the Medical 875-125 mg morning Branch per tablet and 1 tablet in the evening. Do all this for 7 days. amoxicillin 2021-10- Yes [id number] 1{tbl} Take 1 [facility] -clavulanat 2-29 -06 tablet by it y of e 00:00: 05:59 mouth in [place] (AUGMENTIN) 00 :00 the Medical 875-125 mg morning Branch per tablet and 1 tablet in the evening. Do all this for 7 days. amoxicillin 2021-10- Yes [id number] 1{tbl} Take 1 [facility] -clavulanat 2-29 -06 tablet by it y of e 00:00: 05:59 mouth in [place] (AUGMENTIN) 00 :00 the Medical 875-125 mg morning Branch per tablet and 1 tablet in the evening. Do all this for 7 days. amoxicillin 2021-10- Yes [id number] 1{tbl} Take 1 [facility] -clavulanat 2-29 -06 tablet by it y of e 00:00: 05:59 mouth in [place] (AUGMENTIN) 00 :00 the Medical 875-125 mg morning Branch per tablet and 1 tablet in the evening. Do all this for 7 days. amoxicillin 2021-10- Yes [id number] 1{tbl} Take 1 [facility] -clavulanat 2-29 -06 tablet by it y of e 00:00: 05:59 mouth in [place] (AUGMENTIN) 00 :00 the Medical 875-125 mg morning Branch per tablet and 1 tablet in the evening. Do all this for 7 days. amoxicillin 2021-10- Yes [id number] 1{tbl} Take 1 [facility] -clavulanat 2-29 01-06 tablet by it y of e 00:00: 05:59 mouth in [place] (AUGMENTIN) 00 :00 the Medical 875-125 mg morning Branch per tablet and 1 tablet in the evening. Do all this for 7 days. amoxicillin 2021-10- Yes [id number] 1{tbl} Take 1 [facility] -clavulanat 2-29 01-06 tablet by it y of e 00:00: 05:59 mouth in [place] (AUGMENTIN) 00 :00 the Medical 875-125 mg morning Branch per tablet and 1 tablet in the evening. Do all this for 7 days. amoxicillin 2021-10- Yes [id number] 1{tbl} Take 1 [facility] -clavulanat 2-29 01-06 tablet by it y of e 00:00: 05:59 mouth in [place] (AUGMENTIN) 00 :00 the Medical 875-125 mg morning Branch per tablet and 1 tablet in the evening. Do all this for 7 days. amoxicillin 2021-10- Yes [id number] 1{tbl} Take 1 [facility] -clavulanat 2-29 01-06 tablet by it y of e 00:00: 05:59 mouth in [place] (AUGMENTIN) 00 :00 the Medical 875-125 mg morning Branch per tablet and 1 tablet in the evening. Do all this for 7 days. amoxicillin 2021-10- Yes [id number] 1{tbl} Take 1 [facility] -clavulanat 2-29 01-06 tablet by it y of e 00:00: 05:59 mouth in [place] (AUGMENTIN) 00 :00 the Medical 875-125 mg morning Branch per tablet and 1 tablet in the evening. Do all this for 7 days. amoxicillin 2021-10- Yes [id number] 1{tbl} Take 1 [facility] -clavulanat 2-29 01-06 tablet by it y of e 00:00: 05:59 mouth in [place] (AUGMENTIN) 00 :00 the Medical 875-125 mg morning Branch per tablet and 1 tablet in the evening. Do all this for 7 days. amoxicillin 2021-10- Yes [id number] 1{tbl} Take 1 [facility] -clavulanat 2-29 01-06 tablet by it y of e 00:00: 05:59 mouth in [place] (AUGMENTIN) 00 :00 the Medical 875-125 mg morning Branch per tablet and 1 tablet in the evening. Do all this for 7 days. amoxicillin 2021-10- Yes [id number] 1{tbl} Take 1 [facility] -clavulanat 2-29 01-06 tablet by it y of e 00:00: 05:59 mouth in [place] (AUGMENTIN) 00 :00 the Medical 875-125 mg morning Branch per tablet and 1 tablet in the evening. Do all this for 7 days. codeine-gua 2021-10- No 5mL Take 5 mL [facility] ifenesin 2-29 12-30 by mouth ity of 10-100 mg/5 00:00: 00:00 every 6 [place] mL oral 00 :00 (six) Medical solution hours as Branch needed for Cough. Indication s: cough codeine-gua 2021-10- No 10mL Take 10 mL [facility] ifenesin 2-29 12-30 by mouth ity of 10-100 mg/5 00:00: 00:00 at [place] mL oral 00 :00 bedtime. Medical solution Indication Branc h s: cough predniSONE 2021-10 No [id number] 40mg Take 2 [facility] 20 mg 2-29 12-29 tablets by ity of tablet 00:00: 00:00 mouth in [place] 00 :00 the Medical morning Branch for 5 days. codeine-gua 2021-10 No 5mL Take 5 mL [facility] ifenesin 2-29 12-29 by mouth ity of 10-100 mg/5 00:00: 00:00 every 6 [place] mL oral 00 :00 (six) Medical solution hours as Branch needed for Cough. Indication s: cough predniSONE 2021-10 No [id number] 40mg Take 2 [facility] 20 mg 2-29 12-29 tablets by ity of tablet 00:00: 00:00 mouth in [place] 00 :00 the Medical morning Branch for 5 days. codeine-gua 2021-10 No 5mL Take 5 mL [facility] ifenesin 2-29 12-29 by mouth ity of 10-100 mg/5 00:00: 00:00 every 6 [place] mL oral 00 :00 (six) Medical solution hours as Branch needed for Cough. Indication s: cough predniSONE 2021-10 No [id number] 40mg Take 2 [facility] 20 mg 2-29 12-29 tablets by ity of tablet 00:00: 00:00 mouth in [place] 00 :00 the Medical morning Branch for 5 days. codeine-gua 2021-10- No 5mL Take 5 mL [facility] ifenesin 2-29 12-29 by mouth ity of 10-100 mg/5 00:00: 00:00 every 6 [place] mL oral 00 :00 (six) Medical solution hours as Branch needed for Cough. Indication s: cough predniSONE 2021-10 No [id number] 40mg Take 2 [facility] 20 mg 2-29 12-29 tablets by ity of tablet 00:00: 00:00 mouth in [place] 00 :00 the Medical morning Branch for 5 days. codeine-gua 2021-10- No 5mL Take 5 mL [facility] ifenesin 2-29 12-29 by mouth ity of 10-100 mg/5 00:00: 00:00 every 6 [place] mL oral 00 :00 (six) Medical solution hours as Branch needed for Cough. Indication s: cough predniSONE 2021-10 No [id number] 40mg Take 2 [facility] 20 mg 2-29 12-29 tablets by ity of tablet 00:00: 00:00 mouth in [place] 00 :00 the Medical morning Branch for 5 days. codeine-gua 2021-10- No 5mL Take 5 mL [facility] ifenesin 2-29 12-29 by mouth ity of 10-100 mg/5 00:00: 00:00 every 6 [place] mL oral 00 :00 (six) Medical solution hours as Branch needed for Cough. Indication s: cough predniSONE 2021-10 No [id number] 40mg Take 2 [facility] 20 mg 2-29 12-29 tablets by ity of tablet 00:00: 00:00 mouth in [place] 00 :00 the Medical morning Branch for 5 days. codeine-gua 2021-10- No 5mL Take 5 mL [facility] ifenesin 2-29 12-29 by mouth ity of 10-100 mg/5 00:00: 00:00 every 6 [place] mL oral 00 :00 (six) Medical solution hours as Branch needed for Cough. Indication s: cough predniSONE 2021-10 No [id number] 40mg Take 2 [facility] 20 mg 2-29 12-29 tablets by ity of tablet 00:00: 00:00 mouth in [place] 00 :00 the Medical morning Branch for 5 days. Quetiapine 2021-10 Yes [id number] 100mg Take 1 K elsey Fumarate 2-27 tablet [facility] 100 MG oral 00:00: (100 mg - Tablet 00 total) by Externa mouth l nightly Aspirin 81 2021-10 Yes 81mg Take 81 mg K elsey MG oral 2-19 by mouth [facility] Chewable 14:03: daily - Tablet 49 Externa l Aspirin 81 2021-10 Yes 81mg Take 81 mg K elsey MG oral 2-19 by mouth [place] Chewable 14:03: daily - Tablet 49 Externa l Quetiapine 2021-10 Yes [id number] 100mg Take 1 K elsey Fumarate 2-19 tablet [facility] 100 MG oral 00:00: (100 mg - Tablet 00 total) by Externa mouth l nightly Carvedilol 2021-10 Yes [id number] 12.5mg Take 1 [facility]ema 12.5 MG 2-19 tablet [place] oral Tablet 00:00: (12.5 mg - 00 total) by Externa mouth in l the morning and 1 tablet (12.5 mg total) in the evening. Take with meals. Methocarbam 2021-10 Yes [id number] 750mg QD Take 1 Reema ol 750 MG 2-19 tablet [facility] oral Tablet 00:00: (750 mg - 00 total) by Externa mouth l daily as needed (muscle spasm) Carvedilol 2021-10 Yes [id number] 12.5mg Take 1 Reema 12.5 MG 2-19 tablet [facility] oral Tablet 00:00: (12.5 mg - 00 total) by Externa mouth in l the morning and 1 tablet (12.5 mg total) in the evening. Take with meals. Methocarbam 2021-10 Yes [id number] 750mg QD Take 1 Reema ol 750 MG 2-19 tablet [facility] oral Tablet 00:00: (750 mg - 00 total) by Externa mouth l daily as needed (muscle spasm) Clonazepam 2021-10 Yes [id number] .125mg Q.5D Take 1 Reema 0.125 MG 2-16 tablet [facility] oral TABLET 00:00: (0.125 mg - DISPERSIBLE 00 total) by Ext mery mouth 2 l times daily as needed Insulin 2021-10 Yes [id number] 50 units K elsey Glargine 2-16 sc every [place] (Lantus 00:00: day - SoloStar) 00 Externa 100 UNIT/ML l subcutaneou s Solution Pen-injecto r Insulin 2021-10 Yes [id number] 50 units K elsey Glargine 2-16 sc every [facility] (Lantus 00:00: day - SoloStar) 00 Externa 100 UNIT/ML l subcutaneou s Solution Pen-injecto r Aspirin 81 2021-10 Yes 81mg Take 81 mg K elsey MG oral 2-12 by mouth Sey[facility] Chewable 14:25: daily - Tablet 33 Externa l Insulin Pen 2021-10 Yes [id number] Takes Reema Needle 31G 2-12 insulin Seybol d X 5 MM does 00:00: once daily - not apply 00 Externa Misc l Metformin 2021-10 Yes [id number] 1000mg Take 1 Reema HCl 1000 MG 2-12 tablet Seybol d oral Tablet 00:00: (1,000 mg - 00 total) by Externa mouth in l the morning and 1 tablet (1,000 mg total) in the evening. Take with meals. Insulin 2021-10 Yes [id number] Takes up K elsey Aspart 2-12 to 14 [place] (NovoLOG 00:00: units SQ - FlexPen) 00 TID before Exter na 100 UNIT/ML major l subcutaneou meals s Solution Pen-injecto r Glucose 2021-10 Yes [id number] USE 5 [place] ey Blood 2-12 TIMES [facility] (Accu-Chek 00:00: DAILY - Guide) in 00 NEEDED Exter na vitro Strip DIRECTED l Hydrocortis 2021-10 Yes [id number] Takes 3 Reema one 5 MG 2-12 tablets po Seybo ld oral Tablet 00:00: Q AM and 1 - 00 tablet po Externa Q PM l Empaglifloz 2021-10 Yes [id number] 1 tablet Reema in 2-12 po Q daily [facility] (Jardiance) 00:00: - 10 MG oral 00 Externa Tablet l Insulin Pen 2021-10 Yes [id number] Takes Reema Needle 31G 2-12 insulin Seybol d X 5 MM does 00:00: once daily - not apply 00 Externa Misc l Metformin 2021-10 Yes [id number] 1000mg Take 1 Reema HCl 1000 MG 2-12 tablet Seybol d oral Tablet 00:00: (1,000 mg - 00 total) by Externa mouth in l the morning and 1 tablet (1,000 mg total) in the evening. Take with meals. Insulin 2021-10 Yes [id number] Takes up K elsey Aspart 2-12 to 14 [place] (NovoLOG 00:00: units SQ - FlexPen) 00 TID before Exter na 100 UNIT/ML major l subcutaneou meals s Solution Pen-injecto r Glucose 2021-10 Yes [id number] USE 5 [place] ey Blood 2-12 TIMES Sey[facility] (Accu-Chek 00:00: DAILY - Guide) in 00 NEEDED Exter na vitro Strip DIRECTED l Hydrocortis 2021-10 Yes [id number] Takes 3 Reema one 5 MG 2-12 tablets po Seybo ld oral Tablet 00:00: Q AM and 1 - 00 tablet po Externa Q PM l Empaglifloz 2021-10 Yes [id number] 1 tablet Reema in 2-12 po Q daily Sey[facility] (Jardiance) 00:00: - 10 MG oral 00 Externa Tablet l Insulin Pen 2021-10 Yes [id number] Takes Reema Needle 31G 2-12 insulin Seybol d X 5 MM does 00:00: once daily - not apply 00 Externa Misc l Metformin 2021-10 Yes [id number] 1000mg Take 1 Reema HCl 1000 MG 2-12 tablet Seybol d oral Tablet 00:00: (1,000 mg - 00 total) by Externa mouth in l the morning and 1 tablet (1,000 mg total) in the evening. Take with meals. Insulin 2021-10 Yes [id number] Takes up K elsey Aspart 2-12 to 14 [place] (NovoLOG 00:00: units SQ - FlexPen) 00 TID before Exter na 100 UNIT/ML major l subcutaneou meals s Solution Pen-injecto r Glucose 2021-10 Yes [id number] USE 5 [place] ey Blood 2-12 TIMES Sey[facility] (Accu-Chek 00:00: DAILY - Guide) in 00 NEEDED Exter na vitro Strip DIRECTED l Hydrocortis 2021-10 Yes [id number] Takes 3 Reema one 5 MG 2-12 tablets po Seybo ld oral Tablet 00:00: Q AM and 1 - 00 tablet po Externa Q PM l Empaglifloz 2021-10 Yes [id number] 1 tablet Reema in 2-12 po Q daily [facility] (Jardiance) 00:00: - 10 MG oral 00 Externa Tablet l Mupirocin 2021-10 Yes [id number] APPLY THIN Reema (BACTROBAN) 2-06 LAYER TO Seyb old 2 % apply 00:00: OPEN SORES - externally 00 ON TRUNK Exter na Ointment AND l EXTREMITIE S TWICE DAILY. Clobetasol 2021-10 Yes [id number] [place] Propionate 2-06 Seybold 0.05 % 00:00: - apply 00 Externa externally l Ointment Mupirocin 2021-10 Yes [id number] APPLY THIN Reema (BACTROBAN) 2-06 LAYER TO Seyb old 2 % apply 00:00: OPEN SORES - externally 00 ON TRUNK Exter na Ointment AND l EXTREMITIE S TWICE DAILY. Clobetasol 2021-10 Yes [id number] [place] Propionate 2-06 Seybold 0.05 % 00:00: - apply 00 Externa externally l Ointment Mupirocin 2021-10 Yes [id number] APPLY THIN Reema (BACTROBAN) 2-06 LAYER TO Seyb old 2 % apply 00:00: OPEN SORES - externally 00 ON TRUNK Exter na Ointment AND l EXTREMITIE S TWICE DAILY. Clobetasol 2021-10 Yes [id number] [place] Propionate 2-06 Seybold 0.05 % 00:00: - apply 00 Externa externally l Ointment Valacyclovi 2021-10 Yes [id number] TAKE 1 Reema r HCl 500 2-05 TABLET(500 Seyb old MG oral 00:00: MG) BY - Tablet 00 MOUTH Externa DAILY l NEEDED FOR HERPES OR BREAKOUTS Valacyclovi 2021-10 Yes [id number] TAKE 1 Reema r HCl 500 2-05 TABLET(500 Seyb old MG oral 00:00: MG) BY - Tablet 00 MOUTH Externa DAILY l NEEDED FOR HERPES OR BREAKOUTS Valacyclovi 2021-10 Yes [id number] TAKE 1 Reema r HCl 500 2-05 TABLET(500 Seyb old MG oral 00:00: MG) BY - Tablet 00 MOUTH Externa DAILY l NEEDED FOR HERPES OR BREAKOUTS Accu-Chek 2021-10- No USE 6 Reema Guide in 2-05 12-12 TIMES Seybold vitro Strip 00:00: 00:00 DAILY - 00 :00 NEEDED Externa DIRECTED l Clonazepam 2021-10 Yes [id number] .125mg Q.5D Take 1 Reema 0.125 MG 1-28 tablet [facility] oral TABLET 00:00: (0.125 mg - DISPERSIBLE 00 total) by Ext mery mouth 2 l times daily as needed Ibuprofen 2021-10 Yes [id number] 800mg Q.[id number] Take 1 Reema 800 MG oral 1-28 [id number] tablet Seybold Tablet 00:00: 3D (800 mg - 00 total) by Externa mouth l every 8 hours as needed for pain Ibuprofen 2021-10 Yes [id number] 800mg Q.[id number] Take 1 Reema 800 MG oral 1-28 [id number] tablet Seybold Tablet 00:00: 3D (800 mg - 00 total) by Externa mouth l every 8 hours as needed for pain Ibuprofen 2021-10 Yes [id number] 800mg Q.[id number] Take 1 Reema 800 MG oral 1-28 [id number] tablet Seybold Tablet 00:00: 3D (800 mg - 00 total) by Externa mouth l every 8 hours as needed for pain Aspirin 81 2021-10 Yes 81mg Take 81 mg K elsey MG oral 1-18 by mouth [facility] Chewable 14:11: daily - Tablet 52 Externa l Carvedilol 2021-10 Yes [id number] 25mg Take 2 K elsey 12.5 MG 1-18 tablets [facility] oral Tablet 00:00: (25 mg - 00 total) by Externa mouth in l the morning and 2 tablets (25 mg total) in the evening. Take with meals. OZEMPIC 2021-10 Yes .25mg Inject Reema (0.25 or 1-18 0.25 mg Seybold 0.5 00:00: into the - mg/dose) 2 00 skin once Exte rna mg/1.5 mL a week l SQ Solution Pen-Injecto r Metformin 2021-10 Yes [id number] 1000mg Take 1 Reema HCl 1000 MG 1-18 tablet Seybol d oral Tablet 00:00: (1,000 mg - 00 total) by Externa mouth l daily (with breakfast) Insulin 2021-10 Yes [id number] 40 units K elsey Glargine 1-18 sc every [facility] (Lantus 00:00: day - SoloStar) 00 Externa 100 UNIT/ML l subcutaneou s Solution Pen-injecto r Carvedilol 2021-10 Yes [id number] 25mg Take 2 K elsey 12.5 MG 1-18 tablets [facility] oral Tablet 00:00: (25 mg - 00 total) by Externa mouth in l the morning and 2 tablets (25 mg total) in the evening. Take with meals. Insulin 2021-10 Yes [id number] 40 units K elsey Glargine 1-18 sc every [facility] (Lantus 00:00: day - SoloStar) 00 Externa 100 UNIT/ML l subcutaneou s Solution Pen-injecto r Carvedilol 2021-10- No [id number] 25mg Take 2 Reema 12.5 MG -18 12-19 tablets Sey[facility] oral Tablet 00:00: 00:00 (25 mg - 00 :00 total) by Externa mouth in l the morning and 2 tablets (25 mg total) in the evening. Take with meals. OZEMPIC 2021-10- No .25mg Inject Reema (0.25 or 1-18 12-12 0.25 mg Seybold 0.5 00:00: 00:00 into the - mg/dose) 2 00 :00 skin once Exte rna mg/1.5 mL a week l SQ Solution Pen-Injecto r Metformin 2021-10- No [id number] 1000mg Take 1 Reema HCl 1000 MG 1-18 12-12 tablet Seybo ld oral Tablet 00:00: 00:00 (1,000 mg - 00 :00 total) by Externa mouth l daily (with breakfast) estradioL 2021-10 Yes 1g Insert 1 g Un fernanda 0.01 % (0.1 1-17 into ity of mg/gram) 00:00: vagina 2 [place] vaginal 00 (two) Medical cream times per Branch week. estradioL 2021-10 Yes 1g Insert 1 g Un fernanda 0.01 % (0.1 1-17 into ity of mg/gram) 00:00: vagina 2 [place] vaginal (two) Medical cream times per Branch week. estradioL 2-1 Yes 1g Insert 1 g Un fernanda 0.01 % (0.1 1-17 into ity of mg/gram) 00:00: vagina 2 [place] vaginal (two) Medical cream times per Branch week. estradioL 2-1 Yes 1g Insert 1 g Un fernanda 0.01 % (0.1 1-17 into ity of mg/gram) 00:00: vagina 2 [place] vaginal 00 (two) Medical cream times per Branch week. estradioL 2021-1 Yes 1g Insert 1 g Un fernanda 0.01 % (0.1 1-17 into ity of mg/gram) 00:00: vagina 2 [place] vaginal (two) Medical cream times per Branch week. estradioL 2-1 Yes 1g Insert 1 g Un fernanda 0.01 % (0.1 1-17 into ity of mg/gram) 00:00: vagina 2 [place] vaginal (two) Medical cream times per Branch week. estradioL 2021-1 Yes 1g Insert 1 g Un fernanda 0.01 % (0.1 1-17 into ity of mg/gram) 00:00: vagina 2 [place] vaginal (two) Medical cream times per Branch week. estradioL 2-1 Yes 1g Insert 1 g Un fernanda 0.01 % (0.1 1-17 into ity of mg/gram) 00:00: vagina 2 [place] vaginal 00 (two) Medical cream times per Branch week. estradioL 2-1 Yes 1g Insert 1 g Un fernanda 0.01 % (0.1 1-17 into ity of mg/gram) 00:00: vagina 2 [place] vaginal (two) Medical cream times per Branch week. estradioL 2022-1 Yes 1g Insert 1 g Un fernanda 0.01 % (0.1 1-17 into ity of mg/gram) 00:00: vagina 2 [place] vaginal (two) Medical cream times per Branch week. estradioL 2022-1 Yes 1g Insert 1 g Un fernanda 0.01 % (0.1 1-17 into ity of mg/gram) 00:00: vagina 2 [place] vaginal (two) Medical cream times per Branch week. estradioL 2022-1 Yes 1g Insert 1 g Un fernanda 0.01 % (0.1 1-17 into ity of mg/gram) 00:00: vagina 2 [place] vaginal 00 (two) Medical cream times per Branch week. estradioL 2021-10 Yes 1g Insert 1 g Un fernanda 0.01 % (0.1 1-17 into ity of mg/gram) 00:00: vagina 2 [place] vaginal 00 (two) Medical cream times per Branch week. estradioL 2021-10 Yes 1g Insert 1 g Un fernanda 0.01 % (0.1 1-17 into ity of mg/gram) 00:00: vagina 2 [place] vaginal 00 (two) Medical cream times per Branch week. Estradiol 2021-10 Yes [id number] 10ug Insert 1 [facility] (YUVAFEM) 1-17 tablet ity of 10 mcg 00:00: into [place] tablet 00 vagina 2 Medical (two) Branch times per week. Estradiol 2021-10 Yes [id number] 10ug Insert 1 [facility] (YUVAFEM) 1-17 tablet ity of 10 mcg 00:00: into [place] tablet 00 vagina 2 Medical (two) Branch times per week. estradioL 2021-10 Yes 1g Insert 1 g Un fernanda 0.01 % (0.1 1-17 into ity of mg/gram) 00:00: vagina 2 [place] vaginal 00 (two) Medical cream times per Branch week. estradioL 2021-10 Yes 1g Insert 1 g Un fernanda 0.01 % (0.1 1-17 into ity of mg/gram) 00:00: vagina 2 [place] vaginal 00 (two) Medical cream times per Branch week. Estradiol 2021-10- No [id number] 10ug Insert 1 [facility] (YUVAFEM) 1-17 11-15 tablet ity of 10 mcg 00:00: 00:00 into [place] tablet 00 :00 vagina 2 Medical (two) Branch times per week. Clonazepam 2021-10 Yes [id number] .125mg Q.5D Take 1 Reema 0.125 MG 1-09 tablet Sey[facility] oral TABLET 00:00: (0.125 mg - DISPERSIBLE 00 total) by Ext mery mouth 2 l times daily as needed Levothyroxi 2021-10 Yes [id number] 137ug Take 1 Reema ne Sodium 1-07 tablet Seybold 137 MCG 00:00: (137 mcg - oral Tablet 00 total) by Ext mery mouth l daily Quetiapine 2021-10 Yes [id number] 100mg Take 1 K elsey Fumarate 1-07 tablet Seybold 100 MG oral 00:00: (100 mg - Tablet 00 total) by Externa mouth l nightly Levothyroxi 2021-10 Yes [id number] 137ug Take 1 Reema ne Sodium 1-07 tablet Seybold 137 MCG 00:00: (137 mcg - oral Tablet 00 total) by Ext mery mouth l daily Quetiapine 2021-10 Yes [id number] 100mg Take 1 K elsey Fumarate 1-07 tablet Seybold 100 MG oral 00:00: (100 mg - Tablet 00 total) by Externa mouth l nightly Levothyroxi 2021-10 Yes [id number] 137ug Take 1 Reema ne Sodium 1-07 tablet Seybold 137 MCG 00:00: (137 mcg - oral Tablet 00 total) by Ext mery mouth l daily Levothyroxi 2021-10 Yes [id number] 137ug Take 1 Reema ne Sodium 1-07 tablet Seybold 137 MCG 00:00: (137 mcg - oral Tablet 00 total) by Ext mery mouth l daily Quetiapine 2021-10- No [id number] 100mg Take 1 Reema Fumarate 1-07 12-19 tablet Seybold 100 MG oral 00:00: 00:00 (100 mg - Tablet 00 :00 total) by Externa mouth l nightly Hydrocortis 2021-10 Yes [id number] 20 mg Reema one 10 MG 1-03 every am Seybol d oral Tablet 00:00: and 10 mg - 00 every Externa night l Valacyclovi 2021-10 Yes [id number] 500mg QD Take 1 Reema r HCl 500 1-03 tablet Seybold MG oral 00:00: (500 mg - Tablet 00 total) by Externa mouth l daily as needed (Herpes breakout) Hydrocortis 2021-10 Yes [id number] 20 mg Reema one 10 MG 1-03 every am Seybol d oral Tablet 00:00: and 10 mg - 00 every Externa night l Hydrocortis 2021-10 Yes [id number] 20 mg Reema one 10 MG 1-03 every am Seybol d oral Tablet 00:00: and 10 mg - 00 every Externa night l Hydrocortis 2021-10 Yes [id number] 20 mg Reema one 10 MG 1-03 every am Seybol d oral Tablet 00:00: and 10 mg - 00 every Externa night l OZEMPIC 2021-10 Yes [id number] .5mg Inject 0.5 Reema (0.25 or 0-27 mg into Seybold 0.5 00:00: the skin - mg/dose) 2 00 once a Externa mg/1.5 mL week l SQ Solution Pen-Injecto r OZEMPIC 2021-10- No [id number] .5mg Inject 0.5 Reema (0.25 or 0-27 11-18 mg into Seybold 0.5 00:00: 00:00 the skin - mg/dose) 2 00 :00 once a Externa mg/1.5 mL week l SQ Solution Pen-Injecto r Aspirin 81 2021-10 Yes 81mg Take 81 mg K elsey MG oral 0-21 by mouth Seybold Chewable 10:21: daily - Tablet 25 Externa l Clonazepam 2021-10 Yes .125mg Q.5D Take 0.125 Reema 0.125 MG 0-21 mg by Seybold oral TABLET 10:21: mouth as - DISPERSIBLE 25 needed in Ext mery the l morning and 0.125 mg as needed in the evening. Hydrocortis 2021-10 Yes [id number] 20 mg Reema one 10 MG 0-21 every am Seybol d oral Tablet 00:00: and 10 mg - 00 every Externa night l Valacyclovi 2021-10 Yes [id number] 500mg QD Take 1 Reema r HCl 500 0-21 tablet Seybold MG oral 00:00: (500 mg - Tablet 00 total) by Externa mouth l daily as needed (Herpes breakout) Simvastatin 2021-10 Yes [id number] 20mg Take 1 Reema 20 MG oral 0-21 tablet (20 Sey bold Tablet 00:00: mg total) - 00 by mouth Externa nightly l Quetiapine 2021-10 Yes [id number] 100mg Take 1 K elsey Fumarate 0-21 tablet Seybold 100 MG oral 00:00: (100 mg - Tablet 00 total) by Externa mouth l nightly Metformin 2021-10 Yes [id number] 1000mg Take 1 Reema HCl 1000 MG 0-21 tablet Seybol d oral Tablet 00:00: (1,000 mg - 00 total) by Externa mouth in l the morning and 1 tablet (1,000 mg total) in the evening. Take with meals. Insulin 2021-10 Yes [id number] 35 units Ke lsey Glargine 0-21 sc every Seybold (Lantus 00:00: day - SoloStar) 00 Externa 100 UNIT/ML l subcutaneou s Solution Pen-injecto r Furosemide 2021-10 Yes [id number] 20mg QD Take 1 Reema (Lasix) 20 0-21 tablet (20 Sey bold MG oral 00:00: mg total) - Tablet 00 by mouth Externa daily as l needed (edema) Simvastatin 2021-10 Yes [id number] 20mg Take 1 Reema 20 MG oral 0-21 tablet (20 Sey bold Tablet 00:00: mg total) - 00 by mouth Externa nightly l Furosemide 2021-10 Yes [id number] 20mg QD Take 1 Reema (Lasix) 20 0-21 tablet (20 Sey bold MG oral 00:00: mg total) - Tablet 00 by mouth Externa daily as l needed (edema) Simvastatin 2021-10 Yes [id number] 20mg Take 1 Reema 20 MG oral 0-21 tablet (20 Sey bold Tablet 00:00: mg total) - 00 by mouth Externa nightly l Furosemide 2021-10 Yes [id number] 20mg QD Take 1 Reema (Lasix) 20 0-21 tablet (20 Sey bold MG oral 00:00: mg total) - Tablet 00 by mouth Externa daily as l needed (edema) Simvastatin 2021-10 Yes [id number] 20mg Take 1 Reema 20 MG oral 0-21 tablet (20 Sey bold Tablet 00:00: mg total) - 00 by mouth Externa nightly l Furosemide 2021-10 Yes [id number] 20mg QD Take 1 Reema (Lasix) 20 0-21 tablet (20 Sey bold MG oral 00:00: mg total) - Tablet 00 by mouth Externa daily as l needed (edema) Simvastatin 2021-10 Yes [id number] 20mg Take 1 Reema 20 MG oral 0-21 tablet (20 Sey bold Tablet 00:00: mg total) - 00 by mouth Externa nightly l Furosemide 2021-10 Yes [id number] 20mg QD Take 1 Reema (Lasix) 20 0-21 tablet (20 Sey bold MG oral 00:00: mg total) - Tablet 00 by mouth Externa daily as l needed (edema) Metformin 2021-10- No [id number] 1000mg Take 1 Reema HCl 1000 MG 0-21 11-18 tablet Seybo ld oral Tablet 00:00: 00:00 (1,000 mg - 00 :00 total) by Externa mouth in l the morning and 1 tablet (1,000 mg total) in the evening. Take with meals. Insulin 2021-10- No [id number] 35 units K elsey Glargine 0-21 11-18 sc every Seybol d (Lantus 00:00: 00:00 day - SoloStar) 00 :00 Externa 100 UNIT/ML l subcutaneou s Solution Pen-injecto r Aspirin 81 Yes 81mg Take 81 mg K elsey MG oral 9-21 by mouth Seybold Chewable 09:51: daily - Tablet 31 Externa l Clonazepam Yes .125mg Q.5D Take 0.125 Reema 0.125 MG 9-21 mg by Seybold oral TABLET 09:51: mouth as - DISPERSIBLE 31 needed in Ext mery the l morning and 0.125 mg as needed in the evening. Duloxetine 2021- No 30mg Take 30 mg Reema HCl 30 MG 9-21 -21 by mouth Seybo ld oral Cap DR 09:51: 00:00 daily - Particles 31 :00 Externa l Insulin Yes [id number] Takes up K elsey Glargine 9-21 to 40 Seybold (Lantus 00:00: units sc - SoloStar) 00 daily Externa 100 UNIT/ML l subcutaneou s Solution Pen-injecto r Hydrocortis Yes [id number] 30 mg Reema one 10 MG 9-20 every am Seybol d oral Tablet 00:00: and 20 mg - 00 every Externa night l HYDROcodone Yes Reema -Acetaminop 9-12 Seybold hen (NORCO) 00:00: - 5-325 MG 00 Externa oral Tablet l Quetiapine Yes Reema Fumarate 10 Seybold 100 MG oral 00:00: - Tablet 00 Externa l Metformin Yes [id number] 500mg Take 1 Reema HCl 500 MG 06-17 tablet Seybold oral Tablet 00:00: (500 mg - 00 total) by Externa mouth in l the morning and 1 tablet (500 mg total) in the evening. Take with meals. OZEMPIC 2021- No [id number] .25mg Inject K elsey (0.25 or 06-17 0.25 mg Seybold 0.5 00:00: 00:00 into the - mg/dose) 2 00 :00 skin once Exte rna mg/1.5 mL a week l SQ Solution Pen-Injecto r Insulin 2021- No [id number] 20 units Reema Glargine 06-17 sc daily Seybol d (Lantus 00:00: 00:00 - SoloStar) 00 :00 Externa 100 UNIT/ML l subcutaneou s Solution Pen-injecto r NovoLOG Yes Sliding Reema FlexPen 100 9-03 Seybold UNIT/ML 00:00: - subcutaneou 00 Externa s Solution l Pen-injecto r NovoLOG Yes Sliding Reema FlexPen 100 9-03 Seybold UNIT/ML 00:00: - subcutaneou 00 Externa s Solution l Pen-injecto r NovoLOG Yes Sliding Reema FlexPen 100 9-03 Seybold UNIT/ML 00:00: - subcutaneou 00 Externa s Solution l Pen-injecto r NovoLOG 2021- No Sliding Reema FlexPen 100 9-03 12-12 Seybold UNIT/ML 00:00: 00:00 - subcutaneou 00 :00 Externa s Solution l Pen-injecto r BD Pen Yes Reema Needle Rhonda 9-02 Seybold 2nd Gen 32G 00:00: - X 4 MM does 00 Externa not apply l Misc BD Pen Yes Reema Needle Rhonda 9-02 Seybold 2nd Gen 32G 00:00: - X 4 MM does 00 Externa not apply l Misc BD Pen 0 Yes Reema Needle Rhonda 9-02 Seybold 2nd Gen 32G 00:00: - X 4 MM does 00 Externa not apply l Misc BD Pen 0 Yes Reema Needle Rhonda 9-02 Seybold 2nd Gen 32G 00:00: - X 4 MM does 00 Externa not apply l Misc BD Pen 0 Yes Reema Needle Rhonda 9-02 Seybold 2nd Gen 32G 00:00: - X 4 MM does 00 Externa not apply l Misc BD Pen 0 Yes Reema Needle Rhonda 9-02 Seybold 2nd Gen 32G 00:00: - X 4 MM does 00 Externa not apply l Misc Glucose Yes [id number] Use test K elsey Blood 8-30 strips to Seybold (Accu-Chek 00:00: perform - Guide) in 00 FSBS 6 Externa vitro Strip times l daily and as needed. Glucose Yes 200{eac 200 each Zak sey Blood in 8-29 h} by other Seybold vitro Strip 00:00: route - 00 daily Use Externa test l strips to perform FSBS 6 times daily and as needed. Valacyclovi 0 Yes 500mg Take 1 Zak sey r HCl 500 8-23 tablet Seybold MG oral 00:00: (500 mg - Tablet 00 total) by Externa mouth l daily Carvedilol Yes 25mg Take 1 Kelse y 25 MG oral 8-23 tablet (25 Sey bold Tablet 00:00: mg total) - 00 by mouth Externa in the l morning and 1 tablet (25 mg total) in the evening. Take with meals. Carvedilol 0 Yes 25mg Take 1 Kelse y 25 MG oral 8-23 tablet (25 Sey bold Tablet 00:00: mg total) - 00 by mouth Externa in the l morning and 1 tablet (25 mg total) in the evening. Take with meals. Carvedilol 2021-0 2021- No 25mg Take 1 Kaykay ey 25 MG oral 8-23 11-18 tablet (25 Se ybold Tablet 00:00: 00:00 mg total) - 00 :00 by mouth Externa in the l morning and 1 tablet (25 mg total) in the evening. Take with meals. Levothyroxi 0 Yes [id number] 137ug Take 1 Reema ne Sodium 8-10 tablet Seybold 137 MCG 00:00: (137 mcg - oral Tablet 00 total) by Ext mery mouth l daily Levothyroxi 2021-0 Yes [id number] 137ug Take 1 Reema ne Sodium 8-10 tablet Seybold 137 MCG 00:00: (137 mcg - oral Tablet 00 total) by Ext mery mouth l daily Trazodone 0 Yes [id number] 50mg Take 1 K elsey HCl 50 MG 8-01 tablet (50 Seyb old oral Tablet 00:00: mg total) - 00 by mouth Externa nightly l Trazodone 2021-0 Yes [id number] 50mg Take 1 K elsey HCl 50 MG 8-01 tablet (50 Seyb old oral Tablet 00:00: mg total) - 00 by mouth Externa nightly l Trazodone 2021-0 Yes [id number] 50mg Take 1 K elsey HCl 50 MG 8-01 tablet (50 Seyb old oral Tablet 00:00: mg total) - 00 by mouth Externa nightly l Trazodone 0 Yes [id number] 50mg Take 1 K elsey HCl 50 MG 8-01 tablet (50 Seyb old oral Tablet 00:00: mg total) - 00 by mouth Externa nightly l Trazodone 2021-0 Yes [id number] 50mg Take 1 K elsey HCl 50 MG 8-01 tablet (50 Seyb old oral Tablet 00:00: mg total) - 00 by mouth Externa nightly l Ibuprofen 0 Yes [id number] 800mg Q.[id number] Take 1 Reema 800 MG oral 7-05 [id number] tablet Seybold Tablet 00:00: 3D (800 mg - 00 total) by Externa mouth l every 8 hours as needed for pain Ibuprofen 2021-0 Yes [id number] 800mg Q.[id number] Take 1 Reema 800 MG oral 7-05 [id number] tablet Seybold Tablet 00:00: 3D (800 mg - 00 total) by Externa mouth l every 8 hours as needed for pain Ibuprofen 2021-0 Yes [id number] 800mg Q.[id number] Take 1 Reema 800 MG oral 7-05 [id number] tablet Seybold Tablet 00:00: 3D (800 mg - 00 total) by Externa mouth l every 8 hours as needed for pain Cyclobenzap 2021- No Kelse y rine HCl 10 05 09-21 Seybold MG oral 00:00: 00:00 - Tablet 00 :00 Externa l Insulin Pen Yes [id number] Takes Reema Needle 31G 6-29 insulin Seybol d X 5 MM does 00:00: once daily - not apply 00 Externa Misc l Insulin Pen Yes [id number] Takes Reema Needle 31G 6-29 insulin Seybol d X 5 MM does 00:00: once daily - not apply 00 Externa Misc l Insulin Pen Yes [id number] Takes Reema Needle 31G 6-29 insulin Seybol d X 5 MM does 00:00: once daily - not apply 00 Externa Misc l Insulin Pen 2021- No [id number] Takes Reema Needle 31G 6-29 12-12 insulin Seybo ld X 5 MM does 00:00: 00:00 once daily - not apply 00 :00 Externa Misc l Fluoxetine 0 Yes [id number] Ke lsey HCl 20 MG 6-27 Seybold oral 00:00: - Capsule 00 Externa l Aspirin 81 0 Yes 81mg Take 81 mg K elsey MG oral 6-06 by mouth Seybold Chewable 14:50: daily Tablet 32 Clonazepam Yes .125mg Q.5D Take 0.125 Reema 0.125 MG 6-06 mg by Seybold oral TABLET 14:50: mouth as DISPERSIBLE 32 needed in the morning and 0.125 mg as needed in the evening. Quetiapine Yes [id number] 100mg Take 1 Reema Fumarate 6-01 tablet [...] Chewable 08:17: daily Tablet 16 Insulin Yes [id number] 12U Inject 12 Reema Glargine 5-17 units into Seybo ld (Lantus 00:00: the skin SoloStar) 00 daily 100 UNIT/ML subcutaneou s Solution Pen-injecto r Insulin Yes [id number] 12U Inject 12 Reema Glargine 5-17 units into Seybo ld (Lantus 00:00: the skin SoloStar) 00 daily 100 UNIT/ML subcutaneou s Solution Pen-injecto r VALACYCLOVI Yes [id number] TAKE ONE Univers R 500 mg 5-16 TABLET BY ity of tablet 00:00: MOUTH [place] DAILY Medical Branch VALACYCLOVI Yes [id number] TAKE ONE Univers R 500 mg 5-16 TABLET BY ity of tablet 00:00: MOUTH DAILY Medical Branch VALACYCLOVI Yes [id number] TAKE ONE Univers R 500 mg 5-16 TABLET BY ity of tablet 00:00: MOUTH DAILY Medical Branch VALACYCLOVI Yes [id number] TAKE ONE Univers R 500 mg 5-16 TABLET BY ity of tablet 00:00: [facility] DAILY Medical Branch VALACYCLOVI 0 Yes [id number] TAKE ONE Univers R 500 mg 5-16 TABLET BY ity of tablet 00:00: MOUTH DAILY Medical Branch VALACYCLOVI Yes [id number] TAKE ONE Univers R 500 mg 5-16 TABLET BY ity of tablet 00:00: MOUTH [place] DAILY Medical Branch VALACYCLOVI Yes [id number] TAKE ONE Univers R 500 mg 5-16 TABLET BY ity of tablet 00:00: MOUTH DAILY Medical Branch VALACYCLOVI Yes [id number] TAKE ONE Univers R 500 mg 5-16 TABLET BY ity of tablet 00:00: MOUTH DAILY Medical Branch VALACYCLOVI Yes [id number] TAKE ONE Univers R 500 mg 5-16 TABLET BY ity of tablet 00:00: MOUTH DAILY Medical Branch VALACYCLOVI 2021-0 Yes [id number] TAKE ONE Univers R 500 mg 5-16 TABLET BY ity of tablet 00:00: MOUTH DAILY Medical Branch VALACYCLOVI 2021-0 Yes [id number] TAKE ONE Univers R 500 mg 5-16 TABLET BY ity of tablet 00:00: MOUTH DAILY Medical Branch VALACYCLOVI 2021-0 Yes [id number] TAKE ONE Univers R 500 mg 5-16 TABLET BY ity of tablet 00:00: MOUTH DAILY Medical Branch VALACYCLOVI 2021-0 Yes [id number] TAKE ONE Univers R 500 mg 5-16 TABLET BY ity of tablet 00:00: MOUTH DAILY Medical Branch VALACYCLOVI 2021-0 Yes [id number] TAKE ONE Univers R 500 mg 5-16 TABLET BY ity of tablet 00:00: MOUTH DAILY Medical Branch VALACYCLOVI 2021-0 Yes [id number] TAKE ONE Univers R 500 mg 5-16 TABLET BY ity of tablet 00:00: MOUTH DAILY Medical Branch VALACYCLOVI 2021-0 Yes [id number] TAKE ONE Univers R 500 mg 5-16 TABLET BY ity of tablet 00:00: MOUTH DAILY Medical Branch VALACYCLOVI 2021-0 Yes [id number] TAKE ONE Univers R 500 mg 5-16 TABLET BY ity of tablet 00:00: MOUTH DAILY Medical Branch VALACYCLOVI 2021-0 Yes [id number] TAKE ONE Univers R 500 mg 5-16 TABLET BY ity of tablet 00:00: MOUTH DAILY Medical Branch VALACYCLOVI 2021-0 Yes [id number] TAKE ONE Univers R 500 mg 5-16 TABLET BY ity of tablet 00:00: MOUTH DAILY Medical Branch Pantoprazol 2021-0 Yes 40mg Take 40 mg Reema e Sodium 40 5-16 by mouth Seyb old MG oral 00:00: daily Tablet 00 Delayed Response Pantoprazol 2021-0 Yes Reema e Sodium 40 5-16 Seybold MG oral 00:00: Tablet 00 Delayed Response Carvedilol 2021-0 Yes 25mg 25 mg in Zak sey 25 MG oral 5-12 the Seybold Tablet 00:00: morning 00 and 25 mg in the evening. Take with meals. Carvedilol 0 Yes Reema 25 MG oral 5-12 Seybold Tablet 00:00: 00 Levothyroxi 2021-0 Yes [id number] 137ug Take 1 Reema ne Sodium 5-05 tablet Seybold 137 MCG 00:00: (137 mcg oral Tablet 00 total) by mouth daily Levothyroxi 0 Yes [id number] 137ug Take 1 Reema ne Sodium 5-05 [...] r Lantus 2021- No 12U Inject 12 Kel y SoloStar 4-01 05-17 units into Seyb old 100 UNIT/ML 00:00: 00:00 the skin subcutaneou 00 :00 daily s Solution Pen-injecto r aspirin 81 Yes 81mg Take 81 mg U nivers mg chewable 3-24 by mouth ity of tablet 13:15: daily. [address] desvenlafax Yes 1{tbl} Take 1 Un fernanda ine 3-24 tablet by ity of succinate 13:15: mouth [place] (PRISTIQ) 54 daily. Medical 25 mg Tb24 [place] HYDROcodone Yes hydrocodon Univers -acetaminop 3-24 e 10 ity of hen 10-325 13:15: mg-acetami [place] mg tablet 54 nophen 325 Medi owen mg tablet Branch Cholecalcif Yes Vitamin D3 Univers geoffrey, 3-24 10 mcg ity of Vitamin D3, 13:15: (400 unit) [place] 10 mcg (400 54 capsule Medic al unit) Take by Branch capsule oral route. metFORMIN Yes metformin Uni vers 500 mg 3-24 500 mg ity of tablet 13:15: tablet [address] aspirin 81 Yes aspirin 81 U nivers mg EC 3-24 mg ity of tablet 13:15: tablet,del [place] [address] ayed Medical release Branch Take 1 tablet every day by oral route. carvediloL Yes Coreg 25 Uni vers (COREG) 25 3-24 mg tablet ity of mg tablet 13:15: Take 1 [place] [address] tablet Medical twice a Branch day by oral route. simvastatin Yes simvastati Univers 20 mg 3-24 n 20 mg ity of tablet 13:15: tablet [address] traZODone Yes trazodone Uni vers 50 mg 3-24 50 mg ity of tablet 13:15: tablet [address] desvenlafax Yes Univer s ine 3-24 ity of succinate 13:15: [place] (PRISTIQ) 54 Medical 25 mg Tb24 Branch QUEtiapine Yes Seroquel Uni vers (SEROQUEL) 3-24 200 mg ity of 200 mg 13:15: tablet [place] tablet 54 Take 1 Medical tablet Branch twice a day by oral route. levothyroxi Yes levothyrox Univers ne 50 mcg 3-24 ine 50 mcg ity of tablet 13:15: tablet [address] aspirin 81 Yes 81mg Take 81 mg U nivers mg chewable 3-24 by mouth ity of tablet 13:15: daily. [address] desvenlafax Yes 1{tbl} Take 1 Un fernanda ine 3-24 tablet by ity of succinate 13:15: mouth [place] (PRISTIQ) 54 daily. Medical 25 mg Tb24 Branch HYDROcodone Yes hydrocodon Univers -acetaminop 3-24 e 10 ity of hen 10-325 13:15: mg-acetami [place] mg tablet 54 nophen 325 Medi owen mg tablet Branch Cholecalcif Yes Vitamin D3 Univers geoffrey, 3-24 10 mcg ity of Vitamin D3, 13:15: (400 unit) [place] 10 mcg (400 54 capsule Medic al unit) Take by Branch capsule oral route. metFORMIN Yes metformin Uni vers 500 mg 3-24 500 mg ity of tablet 13:15: tablet [address] aspirin 81 Yes aspirin 81 U nivers mg EC 3-24 mg ity of tablet 13:15: tablet,del [place] [address] ayed Medical release Branch Take 1 tablet every day by oral route. carvediloL Yes Coreg 25 Uni vers (COREG) 25 3-24 mg tablet ity of mg tablet 13:15: Take 1 [place] [address] tablet Medical twice a Branch day by oral route. simvastatin Yes simvastati Univers 20 mg 3-24 n 20 mg ity of tablet 13:15: tablet [address] traZODone Yes trazodone Uni vers 50 mg 3-24 50 mg ity of tablet 13:15: tablet [address] desvenlafax Yes Univer s ine 3-24 ity of succinate 13:15: [place] (PRISTIQ) 54 Medical 25 mg Tb24 Branch QUEtiapine Yes Seroquel Uni vers (SEROQUEL) 3-24 200 mg ity of 200 mg 13:15: tablet [place] tablet 54 Take 1 Medical tablet Branch twice a day by oral route. levothyroxi Yes levothyrox Univers ne 50 mcg 3-24 ine 50 mcg ity of tablet 13:15: tablet [address] aspirin 81 Yes 81mg Take 81 mg U nivers mg chewable 3-24 by mouth ity of tablet 13:15: daily. [address] desvenlafax Yes 1{tbl} Take 1 Un fernanda ine 3-24 tablet by ity of succinate 13:15: mouth [place] (PRISTIQ) 54 daily. Medical 25 mg Tb24 [...] 500 mg ity of tablet 13:15: tablet [address] aspirin 81 Yes aspirin 81 U nivers mg EC 3-24 mg ity of tablet 13:15: tablet,del [place] [address] ayed Medical release Branch Take 1 tablet every day by oral route. carvediloL Yes Coreg 25 Uni vers (COREG) 25 3-24 mg tablet ity of mg tablet 13:15: Take 1 [place] [address] tablet Medical twice a Branch day by oral route. simvastatin Yes simvastati Univers 20 mg 3-24 n 20 mg ity of tablet 13:15: tablet [address] traZODone Yes trazodone Uni vers 50 mg 3-24 50 mg ity of tablet 13:15: tablet [address] desvenlafax Yes Univer s ine 3-24 ity of succinate 13:15: [place] (PRISTIQ) Medical 25 mg Tb24 Branch QUEtiapine Yes Seroquel Uni vers (SEROQUEL) 3-24 200 mg ity of 200 mg 13:15: tablet [place] tablet 54 Take 1 Medical tablet Branch twice a day by oral route. levothyroxi Yes levothyrox Univers ne 50 mcg 3-24 ine 50 mcg ity of tablet 13:15: tablet [address] aspirin 81 Yes 81mg Take 81 mg U nivers mg chewable 3-24 by mouth ity of tablet 13:15: daily. [address] desvenlafax Yes 1{tbl} Take 1 Un fernanda ine 3-24 tablet by ity of succinate 13:15: mouth [place] (PRISTIQ) 54 daily. Medical 25 mg Tb24 [...] 500 mg ity of tablet 13:15: tablet [address] aspirin 81 Yes aspirin 81 U nivers mg EC 3-24 mg ity of tablet 13:15: tablet,del [place] [address] ayed Medical release Branch Take 1 tablet every day by oral route. carvediloL Yes Coreg 25 Uni vers (COREG) 25 3-24 mg tablet ity of mg tablet 13:15: Take 1 [place] [address] tablet Medical twice a Branch day by oral route. simvastatin Yes simvastati Univers 20 mg 3-24 n 20 mg ity of tablet 13:15: tablet [address] traZODone Yes trazodone Uni vers 50 mg 3-24 50 mg ity of tablet 13:15: tablet [address] desvenlafax Yes Univer s ine 3-24 ity of succinate 13:15: [place] (PRISTIQ) 54 Medical 25 mg Tb24 Branch QUEtiapine Yes Seroquel Uni vers (SEROQUEL) 3-24 200 mg ity of 200 mg 13:15: tablet [place] tablet 54 Take 1 Medical tablet Branch twice a day by oral route. levothyroxi Yes levothyrox Univers ne 50 mcg 3-24 ine 50 mcg ity of tablet 13:15: tablet [address] aspirin 81 Yes 81mg Take 81 mg U nivers mg chewable 3-24 by mouth ity of tablet 13:15: daily. [address] Branch desvenlafax Yes 1{tbl} Take 1 Un fernanda ine 3-24 tablet by ity of succinate 13:15: mouth [place] (PRISTIQ) 54 daily. Medical 25 mg Tb24 Branch Cholecalcif Yes Vitamin D3 Univers geoffrey, 3-24 10 mcg ity of Vitamin D3, 13:15: (400 unit) [place] 10 mcg (400 54 capsule Medic al unit) Take by Branch capsule oral route. metFORMIN Yes metformin Uni vers 500 mg 3-24 500 mg ity of tablet 13:15: tablet [address] Branch aspirin 81 Yes aspirin 81 U nivers mg EC 3-24 mg ity of tablet 13:15: tablet,del [place] [address] ayed Medical release Branch Take 1 tablet every day by oral route. carvediloL Yes Coreg 25 Uni vers (COREG) 25 3-24 mg tablet ity of mg tablet 13:15: Take 1 [place] [address] tablet Medical twice a Branch day by oral route. simvastatin Yes simvastati Univers 20 mg 3-24 n 20 mg ity of tablet 13:15: tablet [address] Branch traZODone Yes trazodone Uni vers 50 mg 3-24 50 mg ity of tablet 13:15: tablet [address] desvenlafax Yes Univer s ine 3-24 ity of succinate 13:15: [place] (PRISTIQ) Medical 25 mg Tb24 Branch QUEtiapine Yes Seroquel Uni vers (SEROQUEL) 3-24 200 mg ity of 200 mg 13:15: tablet [place] tablet 54 Take 1 Medical tablet Branch twice a day by oral route. levothyroxi Yes levothyrox Univers ne 50 mcg 3-24 ine 50 mcg ity of tablet 13:15: tablet [address] Branch aspirin 81 Yes 81mg Take 81 mg U nivers mg chewable 3-24 by mouth ity of tablet 13:15: daily. [address] desvenlafax Yes 1{tbl} Take 1 Un fernanda ine 3-24 tablet by ity of succinate 13:15: mouth [place] (PRISTIQ) 54 daily. Medical 25 mg Tb24 Branch Cholecalcif Yes Vitamin D3 Univers geoffrey, 3-24 10 mcg ity of Vitamin D3, 13:15: (400 unit) [place] 10 mcg (400 54 capsule Medic al unit) Take by Branch capsule oral route. metFORMIN Yes metformin Uni vers 500 mg 3-24 500 mg ity of tablet 13:15: tablet [address] aspirin 81 Yes aspirin 81 U nivers mg EC 3-24 mg ity of tablet 13:15: tablet,del [place] [address] ayed Medical release Branch Take 1 tablet every day by oral route. carvediloL Yes Coreg 25 Uni vers (COREG) 25 3-24 mg tablet ity of mg tablet 13:15: Take 1 [place] [address] tablet Medical twice a Branch day by oral route. simvastatin Yes simvastati Univers 20 mg 3-24 n 20 mg ity of tablet 13:15: tablet [address] traZODone Yes trazodone Uni vers 50 mg 3-24 50 mg ity of tablet 13:15: tablet [address] desvenlafax Yes Univer s ine 3-24 ity of succinate 13:15: [place] (PRISTIQ) 54 Medical 25 mg Tb24 Branch QUEtiapine Yes Seroquel Uni vers (SEROQUEL) 3-24 200 mg ity of 200 mg 13:15: tablet [place] tablet 54 Take 1 Medical tablet Branch twice a day by oral route. levothyroxi Yes levothyrox Univers ne 50 mcg 3-24 ine 50 mcg ity of tablet 13:15: tablet [address] aspirin 81 2022-0 Yes 81mg Take 81 mg U nivers mg chewable 3-24 by mouth ity of tablet 13:15: daily. [address] desvenlafax Yes 1{tbl} Take 1 Un fernanda ine 3-24 tablet by ity of succinate 13:15: mouth [place] (PRISTIQ) 54 daily. Medical 25 mg Tb24 Branch Cholecalcif Yes Vitamin D3 Univers geoffrey, 3-24 10 mcg ity of Vitamin D3, 13:15: (400 unit) [place] 10 mcg (400 54 capsule Medic al unit) Take by Branch capsule oral route. metFORMIN Yes metformin Uni vers 500 mg 3-24 500 mg ity of tablet 13:15: tablet [address] aspirin 81 Yes aspirin 81 U nivers mg EC 3-24 mg ity of tablet 13:15: tablet,del [place] [address] ayed Medical release Branch Take 1 tablet every day by oral route. carvediloL Yes Coreg 25 Uni vers (COREG) 25 3-24 mg tablet ity of mg tablet 13:15: Take 1 [place] [address] tablet Medical twice a Branch day by oral route. simvastatin Yes simvastati Univers 20 mg 3-24 n 20 mg ity of tablet 13:15: tablet [address] traZODone Yes trazodone Uni vers 50 mg 3-24 50 mg ity of tablet 13:15: tablet [address] desvenlafax Yes Univer s ine 3-24 ity of succinate 13:15: [place] (PRISTIQ) [address] [place] [address] 25 mg Tb24 Branch QUEtiapine Yes Seroquel Uni vers (SEROQUEL) 3-24 200 mg ity of 200 mg 13:15: tablet [place] tablet 54 Take 1 Medical tablet Branch twice a day by oral route. levothyroxi Yes levothyrox Univers ne 50 mcg 3-24 ine 50 mcg ity of tablet 13:15: tablet [address] aspirin 81 Yes 81mg Take 81 mg U nivers mg chewable 3-24 by mouth ity of tablet 13:15: daily. [address] desvenlafax Yes 1{tbl} Take 1 Un fernanda ine 3-24 tablet by ity of succinate 13:15: mouth [place] (PRISTIQ) 54 daily. Medical 25 mg Tb24 Branch Cholecalcif Yes Vitamin D3 Univers geoffrey, 3-24 10 mcg ity of Vitamin D3, 13:15: (400 unit) [place] 10 mcg (400 54 capsule Medic al unit) Take by Branch capsule oral route. metFORMIN Yes metformin Uni vers 500 mg 3-24 500 mg ity of tablet 13:15: tablet [address] aspirin 81 Yes aspirin 81 U nivers mg EC 3-24 mg ity of tablet 13:15: tablet,del [place] [address] ayed Medical release Branch Take 1 tablet every day by oral route. carvediloL Yes Coreg 25 Uni vers (COREG) 25 3-24 mg tablet ity of mg tablet 13:15: Take 1 [place] [address] tablet Medical twice a Branch day by oral route. simvastatin Yes simvastati Univers 20 mg 3-24 n 20 mg ity of tablet 13:15: tablet [address] traZODone Yes trazodone Uni vers 50 mg 3-24 50 mg ity of tablet 13:15: tablet [address] desvenlafax Yes Univer s ine 3-24 ity of succinate 13:15: [place] (PRISTIQ) [address] [place] [address] 25 mg Tb24 Branch QUEtiapine Yes Seroquel Uni vers (SEROQUEL) 3-24 200 mg ity of 200 mg 13:15: tablet [place] [id number] Take 1 Medical tablet Branch twice a day by oral route. levothyroxi Yes levothyrox [facility] ne 50 mcg 3-24 ine 50 mcg ity of tablet 13:15: tablet [address] aspirin 81 Yes 81mg Take 81 mg U nivers mg chewable 3-24 by mouth ity of tablet 13:15: daily. [address] desvenlafax Yes 1{tbl} Take 1 Un fernanda ine 3-24 tablet by ity of succinate 13:15: mouth [place] (PRISTIQ) 54 daily. Medical 25 mg Tb24 Branch Cholecalcif Yes Vitamin D3 [facility], 3-24 10 mcg ity of Vitamin D3, 13:15: (400 unit) [place] 10 mcg (400 54 capsule Medic al unit) Take by Branch capsule oral route. metFORMIN Yes metformin Uni vers 500 mg 3-24 500 mg ity of tablet 13:15: tablet [address] aspirin 81 Yes aspirin 81 U nivers mg EC 3-24 mg ity of tablet 13:15: tablet,del [place] [address] ayed Medical release Branch Take 1 tablet every day by oral route. carvediloL Yes Coreg 25 Uni vers (COREG) 25 3-24 mg tablet ity of mg tablet 13:15: Take 1 [place] [address] tablet Medical twice a Branch day by oral route. simvastatin Yes simvastati [facility] 20 mg 3-24 n 20 mg ity of tablet 13:15: tablet [address] traZODone Yes trazodone Uni vers 50 mg 3-24 50 mg ity of tablet 13:15: tablet [address] desvenlafax Yes Univer s ine 3-24 ity of succinate 13:15: [place] (PRISTIQ) [address] [place] [address] 25 mg Tb24 [place] QUEtiapine Yes Seroquel Uni vers (SEROQUEL) 3-24 200 mg ity of 200 mg 13:15: tablet [place] tablet Take 1 Medical tablet Branch twice a day by oral route. levothyroxi Yes levothyrox [facility] ne 50 mcg 3-24 ine 50 mcg ity of tablet 13:15: tablet [address] aspirin 81 Yes 81mg Take 81 mg U nivers mg chewable 3-24 by mouth ity of tablet 13:15: daily. [address] desvenlafax Yes 1{tbl} Take 1 Un fernanda ine 3-24 tablet by ity of succinate 13:15: mouth [place] (PRISTIQ) 54 daily. Medical 25 mg Tb24 Branch Cholecalcif Yes Vitamin D3 [facility], 3-24 10 mcg ity of Vitamin D3, 13:15: (400 unit) [place] 10 mcg (400 54 capsule Medic al unit) Take by Branch capsule oral route. metFORMIN Yes metformin [facility] vers 500 mg 3-24 500 mg ity of tablet 13:15: tablet [address] aspirin 81 Yes aspirin 81 U nivers mg EC 3-24 mg ity of tablet 13:15: tablet,del [place] [address] ay Medical release [place] Take 1 tablet every day by oral route. carvediloL Yes Coreg 25 Uni vers (COREG) 25 3-24 mg tablet ity of mg tablet 13:15: Take 1 [place] [address] tablet Medical twice a Branch day by oral route. simvastatin Yes simvastati [facility] 20 mg 3-24 n 20 mg ity of tablet 13:15: tablet [address] traZODone Yes trazodone [facility] vers 50 mg 3-24 50 mg ity of tablet 13:15: tablet [address] desvenlafax Yes Univer s ine 3-24 ity of succinate 13:15: [place] (PRISTIQ) Medical 25 mg Tb24 [place] QUEtiapine Yes Seroquel Uni vers (SEROQUEL) 3-24 200 mg ity of 200 mg 13:15: tablet [place] [id number] Take 1 Medical tablet [place] twice a day by oral route. levothyroxi Yes levothyrox [facility] ne 50 mcg 3-24 ine 50 mcg ity of tablet 13:15: tablet [address] aspirin 81 Yes 81mg Take 81 mg U nivers mg chewable 3-24 by mouth ity of tablet 13:15: daily. [address] desvenlafax Yes 1{tbl} Take 1 Un fernanda ine 3-24 tablet by ity of succinate 13:15: mouth [place] (PRISTIQ) 54 daily. Medical 25 mg Tb24 Branch Cholecalcif Yes Vitamin D3 [facility], 3-24 10 mcg ity of Vitamin D3, 13:15: (400 unit) [place] 10 mcg (400 54 capsule Medic al unit) Take by Branch capsule oral route. metFORMIN Yes metformin [facility] vers 500 mg 3-24 500 mg ity of tablet 13:15: tablet [address] aspirin 81 Yes aspirin 81 U nivers mg EC 3-24 mg ity of tablet 13:15: tablet,del [address] release [place] Take 1 tablet every day by oral route. carvediloL Yes Coreg 25 Uni vers (COREG) 25 3-24 mg tablet ity of mg tablet 13:15: Take 1 [place] [address] tablet Medical twice a Branch day by oral route. simvastatin Yes simvastati [facility] 20 mg 3-24 n 20 mg ity of tablet 13:15: tablet [address] traZODone Yes trazodone [facility] vers 50 mg 3-24 50 mg ity of tablet 13:15: tablet [address] desvenlafax Yes Univer s ine 3-24 ity of succinate 13:15: [place] (PRISTIQ) 54 Medical 25 mg Tb24 Branch QUEtiapine Yes Seroquel Uni vers (SEROQUEL) 3-24 200 mg ity of 200 mg 13:15: tablet [place] tablet Take 1 Medical tablet Branch twice a day by oral route. levothyroxi Yes levothyrox [facility] ne 50 mcg 3-24 ine 50 mcg ity of tablet 13:15: tablet [address] aspirin 81 Yes 81mg Take 81 mg U nivers mg chewable 3-24 by mouth ity of tablet 13:15: daily. [address] desvenlafax Yes 1{tbl} Take 1 Un fernanda ine 3-24 tablet by ity of succinate 13:15: mouth [place] (PRISTIQ) 54 daily. Medical 25 mg Tb24 Branch Cholecalcif Yes Vitamin D3 [facility], 3-24 10 mcg ity of Vitamin D3, 13:15: (400 unit) [place] 10 mcg (400 54 capsule Medic al unit) Take by Branch capsule oral route. metFORMIN Yes metformin [facility] vers 500 mg 3-24 500 mg ity of tablet 13:15: tablet [address] aspirin 81 Yes aspirin 81 U nivers mg EC 3-24 mg ity of tablet 13:15: tablet,del [place] [address] ayed Medical release Branch Take 1 tablet every day by oral route. carvediloL Yes Coreg 25 Uni vers (COREG) 25 3-24 mg tablet ity of mg tablet 13:15: Take 1 [place] [address] tablet Medical twice a Branch day by oral route. simvastatin Yes simvastati [facility] 20 mg 3-24 n 20 mg ity of tablet 13:15: tablet [address] traZODone Yes trazodone Uni vers 50 mg 3-24 50 mg ity of tablet 13:15: tablet [address] desvenlafax Yes Univer s ine 3-24 ity of succinate 13:15: [place] (PRISTIQ) 54 Medical 25 mg Tb24 Branch QUEtiapine Yes Seroquel Uni vers (SEROQUEL) 3-24 200 mg ity of 200 mg 13:15: tablet [place] tablet 54 Take 1 Medical tablet Branch twice a day by oral route. levothyroxi Yes levothyrox [facility] ne 50 mcg 3-24 ine 50 mcg ity of tablet 13:15: tablet [address] aspirin 81 Yes 81mg Take 81 mg U nivers mg chewable 3-24 by mouth ity of tablet 13:15: daily. [address] desvenlafax Yes 1{tbl} Take 1 Un fernanda ine 3-24 tablet by ity of succinate 13:15: mouth [place] (PRISTIQ) 54 daily. Medical 25 mg Tb24 Branch Cholecalcif Yes Vitamin D3 [facility], 3-24 10 mcg ity of Vitamin D3, 13:15: (400 unit) [place] 10 mcg (400 54 capsule Medic al unit) Take by Branch capsule oral route. metFORMIN Yes metformin [facility] vers 500 mg 3-24 500 mg ity of tablet 13:15: tablet [address] aspirin 81 Yes aspirin 81 U nivers mg EC 3-24 mg ity of tablet 13:15: tablet,del [place] [address] ayed Medical release Branch Take 1 tablet every day by oral route. carvediloL Yes Coreg 25 Uni vers (COREG) 25 3-24 mg tablet ity of mg tablet 13:15: Take 1 [place] [address] tablet Medical twice a Branch day by oral route. simvastatin Yes simvastati [facility] 20 mg 3-24 n 20 mg ity of tablet 13:15: tablet [address] traZODone Yes trazodone [facility] vers 50 mg 3-24 50 mg ity of tablet 13:15: tablet [place] 54 Medical Branch desvenlafax Yes Univer s ine 3-24 ity of succinate 13:15: [place] (PRISTIQ) 54 Medical 25 mg Tb24 Branch QUEtiapine Yes Seroquel Uni vers (SEROQUEL) 3-24 200 mg ity of 200 mg 13:15: tablet [place] tablet 54 Take 1 Medical tablet Branch twice a day by oral route. levothyroxi Yes levothyrox [facility] ne 50 mcg 3-24 ine 50 mcg ity of tablet 13:15: tablet [address] Branch aspirin 81 Yes 81mg Take 81 mg U nivers mg chewable 3-24 by mouth ity of tablet 13:15: daily. [address] desvenlafax Yes 1{tbl} Take 1 Un [facility]anda ine 3-24 tablet by ity of succinate 13:15: mouth [place] (PRISTIQ) 54 daily. Medical 25 mg Tb24 Branch Cholecalcif Yes Vitamin D3 [facility], 3-24 10 mcg ity of Vitamin D3, 13:15: (400 unit) [place] 10 mcg (400 54 capsule Medic al unit) Take by Branch capsule oral route. metFORMIN Yes metformin [facility] vers 500 mg 3-24 500 mg ity of tablet 13:15: tablet [address] Branch aspirin 81 Yes aspirin 81 U nivers mg EC 3-24 mg ity of tablet 13:15: tablet,del [place] [address] ayed Medical release Branch Take 1 tablet every day by oral route. carvediloL Yes Coreg 25 Uni vers (COREG) 25 3-24 mg tablet ity of mg tablet 13:15: Take 1 [place] [address] tablet Medical twice a Branch day by oral route. simvastatin Yes simvastati [facility] 20 mg 3-24 n 20 mg ity of tablet 13:15: tablet [address] traZODone Yes trazodone Uni vers 50 mg 3-24 50 mg ity of tablet 13:15: tablet [address] desvenlafax Yes Univer s ine 3-24 ity of succinate 13:15: [place] [facility] 25 mg Tb24 Branch QUEtiapine Yes Seroquel Uni vers (SEROQUEL) 3-24 200 mg ity of 200 mg 13:15: tablet [place] tablet 54 Take 1 Medical tablet Branch twice a day by oral route. levothyroxi Yes levothyrox [facility] ne 50 mcg 3-24 ine 50 mcg ity of tablet 13:15: tablet [address] Branch aspirin 81 Yes 81mg Take 81 mg U nivers mg chewable 3-24 by mouth ity of tablet 13:15: daily. [address] Branch desvenlafax Yes 1{tbl} Take 1 Un f[facility]anda ine 3-24 tablet by ity of succinate 13:15: mouth [place] (PRISTIQ) 54 daily. Medical 25 mg Tb24 Branch Cholecalcif Yes Vitamin D3 [facility], 3-24 10 mcg ity of Vitamin D3, 13:15: (400 unit) [place] 10 mcg (400 54 capsule Medic al unit) Take by Branch capsule oral route. metFORMIN Yes metformin [facility] vers 500 mg 3-24 500 mg ity of tablet 13:15: tablet [address] Branch aspirin 81 Yes aspirin 81 U nivers mg EC 3-24 mg ity of tablet 13:15: tablet,del [place] [address] ayed Medical release Branch Take 1 tablet every day by oral route. carvediloL Yes Coreg 25 Uni vers (COREG) 25 3-24 mg tablet ity of mg tablet 13:15: Take 1 [place] [address] tablet Medical twice a Branch day by oral route. simvastatin Yes simvastati [facility] 20 mg 3-24 n 20 mg ity of tablet 13:15: tablet [address] Branch traZODone Yes trazodone [facility] vers 50 mg 3-24 50 mg ity of tablet 13:15: tablet [address] desvenlafax Yes Univer s ine 3-24 ity of succinate 13:15: [place] (PRISTIQ) 54 Medical 25 mg Tb24 Branch QUEtiapine Yes Seroquel Uni vers (SEROQUEL) 3-24 200 mg ity of 200 mg 13:15: tablet [place] tablet 54 Take 1 Medical tablet Branch twice a day by oral route. levothyroxi Yes levothyrox [facility] ne 50 mcg 3-24 ine 50 mcg ity of tablet 13:15: tablet [address] aspirin 81 Yes 81mg Take 81 mg U nivers mg chewable 3-24 by mouth ity of tablet 13:15: daily. [address] desvenlafax Yes 1{tbl} Take 1 Un [facility] ine 3-24 tablet by ity of succinate 13:15: mouth [place] (PRISTIQ) 54 daily. Medical 25 mg Tb24 Branch Cholecalcif Yes Vitamin D3 [facility], 3-24 10 mcg ity of Vitamin D3, 13:15: (400 unit) [place] 10 mcg (400 54 capsule Medic al unit) Take by Branch capsule oral route. metFORMIN Yes metformin [facility] vers 500 mg 3-24 500 mg ity of tablet 13:15: tablet [address] aspirin 81 Yes aspirin 81 U nivers mg EC 3-24 mg ity of tablet 13:15: tablet,del [place] [address] ayed Medical release Branch Take 1 tablet every day by oral route. carvediloL Yes Coreg 25 Uni vers (COREG) 25 3-24 mg tablet ity of mg tablet 13:15: Take 1 [place] [address] tablet Medical twice a Branch day by oral route. simvastatin Yes simvastati [facility] 20 mg 3-24 n 20 mg ity of tablet 13:15: tablet [address] traZODone Yes trazodone Uni vers 50 mg 3-24 50 mg ity of tablet 13:15: tablet [address] desvenlafax Yes Univer s ine 3-24 ity of succinate 13:15: [place] (PRISTIQ) Medical 25 mg Tb24 Branch QUEtiapine Yes Seroquel Uni vers (SEROQUEL) 3-24 200 mg ity of 200 mg 13:15: tablet [place] [id number] Take 1 Medical tablet Branch twice a day by oral route. levothyroxi Yes levothyrox [facility] ne 50 mcg 3-24 ine 50 mcg ity of tablet 13:15: tablet [address] aspirin 81 Yes 81mg Take 81 mg U nivers mg chewable 3-24 by mouth ity of tablet 13:15: daily. [address] desvenlafax Yes 1{tbl} Take 1 Un [facility] ine 3-24 tablet by ity of succinate 13:15: mouth [place] (PRISTIQ) 54 daily. Medical 25 mg Tb24 Branch Cholecalcif Yes Vitamin D3 [facility] [place], 3-24 10 mcg ity of Vitamin D3, 13:15: (400 unit) [place] 10 mcg (400 54 capsule Medic al unit) Take by Branch capsule oral route. metFORMIN Yes metformin [facility] vers 500 mg 3-24 500 mg ity of tablet 13:15: tablet [address] Branch aspirin 81 Yes aspirin 81 U nivers mg EC 3-24 mg ity of tablet 13:15: tablet,del [place] [address] ayed Medical release Branch Take 1 tablet every day by oral route. carvediloL Yes Coreg 25 Uni vers (COREG) 25 3-24 mg tablet ity of mg tablet 13:15: Take 1 [place] [address] tablet Medical twice a Branch day by oral route. simvastatin Yes simvastati [facility] 20 mg 3-24 n 20 mg ity of tablet 13:15: tablet [address] traZODone Yes trazodone Uni vers 50 mg 3-24 50 mg ity of tablet 13:15: tablet [address] desvenlafax Yes Univer s ine 3-24 ity of succinate 13:15: [place] (PRISTIQ) Medical 25 mg Tb24 Branch QUEtiapine Yes Seroquel Uni vers (SEROQUEL) 3-24 200 mg ity of 200 mg 13:15: tablet [place] [id number] Take 1 Medical tablet Branch twice a day by oral route. levothyroxi Yes levothyrox [facility] ne 50 mcg 3-24 ine 50 mcg ity of tablet 13:15: tablet [address] aspirin 81 Yes 81mg Take 81 mg U nivers mg chewable 3-24 by mouth ity of tablet 13:15: daily. [address] desvenlafax Yes 1{tbl} Take 1 Un [facility]anda ine 3-24 tablet by ity of succinate 13:15: mouth [place] (PRISTIQ) 54 daily. Medical 25 mg Tb24 Branch Cholecalcif Yes Vitamin D3 [facility] [place], 3-24 10 mcg ity of Vitamin D3, 13:15: (400 unit) [place] 10 mcg (400 54 capsule Medic al unit) Take by Branch capsule oral route. metFORMIN Yes metformin Uni vers 500 mg 3-24 500 mg ity of tablet 13:15: tablet [address] aspirin 81 Yes aspirin 81 U nivers mg EC 3-24 mg ity of tablet 13:15: tablet,del [place] [address] ayed Medical release Branch Take 1 tablet every day by oral route. carvediloL Yes Coreg 25 Uni vers (COREG) 25 3-24 mg tablet ity of mg tablet 13:15: Take 1 [place] [address] tablet Medical twice a Branch day by oral route. simvastatin Yes simvastati [facility] 20 mg 3-24 n 20 mg ity of tablet 13:15: tablet [address] traZODone Yes trazodone Uni vers 50 mg 3-24 50 mg ity of tablet 13:15: tablet [address] desvenlafax Yes Univer s ine 3-24 ity of succinate 13:15: [place] (PR[facility]IQ) Medical 25 mg Tb24 [place] QUEtiapine Yes Seroquel Uni vers (SEROQUEL) 3-24 200 mg ity of 200 mg 13:15: tablet [place] tablet 54 Take 1 Medical tablet Branch twice a day by oral route. levothyroxi Yes levothyrox [facility] ne 50 mcg 3-24 ine 50 mcg ity of tablet 13:15: tablet [address] aspirin 81 Yes 81mg Take 81 mg U nivers mg chewable 3-24 by mouth ity of tablet 13:15: daily. [address] desvenlafax Yes 1{tbl} Take 1 Un [facility] ine 3-24 tablet by ity of succinate 13:15: mouth [place] (PRISTIQ) 54 daily. Medical 25 mg Tb24 Branch Cholecalcif Yes Vitamin D3 [facility] [place], 3-24 10 mcg ity of Vitamin D3, 13:15: (400 unit) [place] 10 mcg (400 54 capsule Medic al unit) Take by Branch capsule oral route. metFORMIN 2022-0 Yes metformin Uni vers 500 mg 3-24 500 mg ity of tablet 13:15: tablet [address] Branch aspirin 81 2021-0 Yes aspirin 81 U nivers mg EC 3-24 mg ity of tablet 13:15: tablet,del [place] 54 ayed Medical release Branch Take 1 tablet every day by oral route. carvediloL 0 Yes Coreg 25 Uni vers (COREG) 25 3-24 mg tablet ity of mg tablet 13:15: Take 1 [place] [address] tablet Medical twice a Branch day by oral route. simvastatin 0 Yes simvastati [facility] 20 mg 3-24 n 20 mg ity of tablet 13:15: tablet [address] Branch traZODone 0 Yes trazodone Uni vers 50 mg 3-24 50 mg ity of tablet 13:15: tablet [address] Branch desvenlafax Yes Univer s ine 3-24 ity of succinate 13:15: [place] (PR[facility]) Medical 25 mg Tb24 Branch QUEtiapine Yes Seroquel Uni vers (SEROQUEL) 3-24 200 mg ity of 200 mg 13:15: tablet [place] tablet 54 Take 1 Medical tablet Branch twice a day by oral route. levothyroxi Yes levothyrox [facility] ne 50 mcg 3-24 ine 50 mcg ity of tablet 13:15: tablet [address] metFORMIN 2021-0 Yes 500mg Take 1 Unive rs 500 mg 2-24 tablet by ity of tablet 00:00: mouth [place] 00 every Medical evening. Branch metFORMIN 2021-0 Yes 500mg Take 1 Unive rs 500 mg 2-24 tablet by ity of tablet 00:00: mouth [place] 00 every Medical evening. Branch metFORMIN 2021-0 Yes 500mg Take 1 Unive rs 500 mg 2-24 tablet by ity of tablet 00:00: mouth [place] 00 every Medical evening. Branch metFORMIN 2021-0 Yes 500mg Take 1 Unive rs 500 mg 2-24 tablet by ity of tablet 00:00: mouth [place] 00 every Medical evening. Branch metFORMIN 2021-0 Yes 500mg Take 1 Un[facility] rs 500 mg 2-24 tablet by ity of tablet 00:00: mouth [place] 00 every Medical evening. Branch metFORMIN 2021-0 Yes 500mg Take 1 Unive rs 500 mg 2-24 tablet by ity of tablet 00:00: mouth [place] 00 every Medical evening. Branch metFORMIN 2022-0 Yes 500mg Take 1 Unive rs 500 mg 2-24 tablet by ity of tablet 00:00: mouth [place] 00 every Medical evening. Branch metFORMIN 2022-0 Yes 500mg Take 1 Unive rs 500 mg 2-24 tablet by ity of tablet 00:00: mouth [place] 00 every Medical evening. Branch metFORMIN 2022-0 Yes 500mg Take 1 Unive rs 500 mg 2-24 tablet by ity of tablet 00:00: mouth [place] 00 every Medical evening. Branch metFORMIN 2022-0 Yes 500mg Take 1 Unive rs 500 mg 2-24 tablet by ity of tablet 00:00: mouth [place] 00 every Medical evening. Branch metFORMIN 2022-0 Yes 500mg Take 1 Unive rs 500 mg 2-24 tablet by ity of tablet 00:00: mouth [place] 00 every Medical evening. Branch metFORMIN 2022-0 Yes 500mg Take 1 Unive rs 500 mg 2-24 tablet by ity of tablet 00:00: mouth [place] 00 every Medical evening. Branch metFORMIN 2022-0 Yes 500mg Take 1 Unive rs 500 mg 2-24 tablet by ity of tablet 00:00: mouth [place] 00 every Medical evening. Branch metFORMIN 2022-0 Yes 500mg Take 1 Unive rs 500 mg 2-24 tablet by ity of tablet 00:00: mouth [place] 00 every Medical evening. Branch metFORMIN 2022-0 Yes 500mg Take 1 Unive rs 500 mg 2-24 tablet by ity of tablet 00:00: mouth [place] 00 every Medical evening. Branch metFORMIN 2022-0 Yes 500mg Take 1 Unive rs 500 mg 2-24 tablet by ity of tablet 00:00: mouth [place] 00 every Medical evening. Branch metFORMIN 2022-0 Yes 500mg Take 1 Unive rs 500 mg 2-24 tablet by ity of tablet 00:00: mouth [place] 00 every Medical evening. Branch metFORMIN 2022-0 Yes 500mg Take 1 Unive rs 500 mg 2-24 tablet by ity of tablet 00:00: mouth [place] 00 every Medical evening. Branch metFORMIN 2022-0 Yes 500mg Take 1 Unive rs 500 mg 2-24 tablet by ity of tablet 00:00: mouth [place] 00 every Medical evening. Branch Metformin 2022-0 Yes metformin Zak se[place] HCl 500 MG 2-24 500 mg [place] oral Tablet 00:00: tablet 00 Metformin 2022-0 Yes metformin Zak se[facility] HCl 500 MG 2-24 500 mg [place] oral Tablet 00:00: tablet 00 Metformin 2022-0 Yes metformin [facility]ak se[place] HCl 500 MG 2-24 500 mg [place] oral Tablet 00:00: tablet 00 Metformin 2022-0 Yes 500mg Take 500 [place] se[facility] HCl 500 MG 2-24 mg by [place] oral Tablet 00:00: mouth 00 daily (with breakfast) hydrOXYzine 2021-0 Yes [id number] 25mg Take 1 [facility] 25 mg 1-29 tablet by ity of tablet 00:00: mouth [place] 00 every 6 Medical (six) Branch hours as needed for Itching or Anxiety. methylPREDN 2021-0 Yes [id number] Take by [facility] ISolone 1-29 mouth ity of (MEDROL, 00:00: SEE-INSTRU [place],) 4 mg 00 CTIONS. Medica l tablets follow Branch package directions hydrOXYzine 2021-0 Yes [id number] 25mg Take 1 [facility] 25 mg 1-29 tablet by ity of tablet 00:00: mouth [place] 00 every 6 Medical (six) Branch hours as needed for Itching or Anxiety. methylPREDN 2021-0 Yes [id number] Take by [facility] ISolone 1-29 mouth ity of (MEDROL, 00:00: SEE-INSTRU [place],) 4 mg 00 CTIONS. Medica l tablets follow Branch package directions hydrOXYzine 2021-0 Yes [id number] 25mg Take 1 [facility] 25 mg 1-29 tablet by ity of tablet 00:00: mouth [place] 00 every 6 Medical (six) Branch hours as needed for Itching or Anxiety. methylPREDN 2022-0 Yes [id number] Take by [facility] ISolone 1-29 mouth ity of (MEDROL, 00:00: SEE-INSTRU [place],) 4 mg 00 CTIONS. Medica l tablets follow Branch package directions hydrOXYzine 2021-0 Yes [id number] 25mg Take 1 [facility] 25 mg 1-29 tablet by ity of tablet 00:00: mouth [place] 00 every 6 Medical (six) Branch hours as needed for Itching or Anxiety. methylPREDN 2022-0 Yes [id number] Take by [facility] ISolone 1-29 mouth ity of (MEDROL, 00:00: SEE-INSTRU [place],) 4 mg 00 CTIONS. Medica l tablets follow Branch package directions hydrOXYzine 2021-0 Yes [id number] 25mg Take 1 [facility] 25 mg 1-29 tablet by ity of tablet 00:00: mouth [place] 00 every 6 Medical (six) Branch hours as needed for Itching or Anxiety. hydrOXYzine 2021-0 Yes [id number] 25mg Take 1 [facility] 25 mg 1-29 tablet by ity of tablet 00:00: mouth [place] 00 every 6 Medical (six) Branch hours as needed for Itching or Anxiety. hydrOXYzine 2021-0 Yes [id number] 25mg Take 1 [facility] 25 mg 1-29 tablet by ity of tablet 00:00: mouth [place] 00 every 6 Medical (six) Branch hours as needed for Itching or Anxiety. hydrOXYzine 2021-0 Yes [id number] 25mg Take 1 [facility] 25 mg 1-29 tablet by ity of tablet 00:00: mouth [place] 00 every 6 Medical (six) Branch hours as needed for Itching or Anxiety. hydrOXYzine 2021-0 Yes [id number] 25mg Take 1 [facility] 25 mg 1-29 tablet by ity of tablet 00:00: mouth [place] 00 every 6 Medical (six) Branch hours as needed for Itching or Anxiety. hydrOXYzine 2021-0 Yes [id number] 25mg Take 1 [facility] 25 mg 1-29 tablet by ity of tablet 00:00: mouth [place] 00 every 6 Medical (six) Branch hours as needed for Itching or Anxiety. hydrOXYzine 2021-0 Yes [id number] 25mg Take 1 [facility] 25 mg 1-29 tablet by ity of tablet 00:00: mouth [place] 00 every 6 Medical (six) Branch hours as needed for Itching or Anxiety. hydrOXYzine 2021-0 Yes [id number] 25mg Take 1 [facility] 25 mg 1-29 tablet by ity of tablet 00:00: mouth [place] 00 every 6 Medical (six) Branch hours as needed for Itching or Anxiety. hydrOXYzine 2021-0 Yes [id number] 25mg Take 1 [facility] 25 mg 1-29 tablet by ity of tablet 00:00: mouth [place] 00 every 6 Medical (six) Branch hours as needed for Itching or Anxiety. hydrOXYzine 2021-0 Yes [id number] 25mg Take 1 [facility] 25 mg 1-29 tablet by ity of tablet 00:00: mouth [place] 00 every 6 Medical (six) Branch hours as needed for Itching or Anxiety. hydrOXYzine 2021-0 Yes [id number] 25mg Take 1 [facility] 25 mg 1-29 tablet by ity of tablet 00:00: mouth [place] 00 every 6 Medical (six) Branch hours as needed for Itching or Anxiety. hydrOXYzine 2021-0 Yes [id number] 25mg Take 1 [facility] 25 mg 1-29 tablet by ity of tablet 00:00: mouth [place] 00 every 6 Medical (six) Branch hours as needed for Itching or Anxiety. hydrOXYzine 2021-0 Yes [id number] 25mg Take 1 [facility] 25 mg 1-29 tablet by ity of tablet 00:00: mouth [place] 00 every 6 Medical (six) Branch hours as needed for Itching or Anxiety. hydrOXYzine 2021-0 Yes [id number] 25mg Take 1 [facility] 25 mg 1-29 tablet by ity of tablet 00:00: mouth [place] 00 every 6 Medical (six) Branch hours as needed for Itching or Anxiety. hydrOXYzine 2021-0 Yes [id number] 25mg Take 1 [facility] 25 mg 1-29 tablet by ity of tablet 00:00: mouth [place] 00 every 6 Medical (six) Branch hours as needed for Itching or Anxiety. methylPREDN 2021- No [id number] Take by [facility] ISolone 11-09 mouth ity of (MEDROL, 00:00: 00:00 [place]-INSTRU [place] 4 mg 00 :00 CTIONS. Medica l tablets follow Branch package directions methylPREDN 2021- No [id number] Take by [facility] ISolone 11-09 mouth ity of (MEDROL, 00:00: 00:00 [place] 4 mg 00 :00 CTIONS. Medica l tablets follow Branch package directions methylPREDN 2021- No [id number] Take by [facility] ISolone 11-09 mouth ity of (MEDROL, 00:00: 00:00 [place] 4 mg 00 :00 CTIONS. Medica l tablets follow Branch package directions methylPREDN 2021- No [id number] Take by [facility] 11-09 mouth ity of (MEDROL, 00:00: 00:00 [place] 4 mg 00 :00 CTIONS. Medica l tablets follow Branch package directions methylPREDN 2021- No [id number] Take by [facility] 11-09 mouth ity of (MEDROL, 00:00: 00:00 [place] 4 mg 00 :00 CTIONS. Medica l tablets follow Branch package directions methylPREDN 2021- No [id number] Take by [facility] 11-09 mouth ity of (MEDROL, 00:00: 00:00 [place] 4 mg 00 :00 CTIONS. Medica l tablets follow Branch package directions methylPREDN 2021- No [id number] Take by [facility] 11-09 mouth ity of (MEDROL, 00:00: 00:00 [place] 4 mg 00 :00 CTIONS. Medica l tablets follow Branch package [...] 00:00: mouth [place] 00 daily. Medical Branch ciprofloxac Yes TAKE ONE Un fernanda in HCl 500 1-18 TABLET BY ity of mg tablet 00:00: MOUTH [place] 00 EVERY 12 Medical HOURS Branch UNTIL ALL TAKEN fluconazole 2021-0 Yes 150mg Take 150 U nivers 150 mg 1-18 mg by ity of tablet 00:00: mouth [place] 00 daily. Medical Branch ciprofloxac Yes TAKE ONE Un fernanda in HCl 500 1-18 TABLET BY ity of mg tablet 00:00: MOUTH [place] 00 EVERY 12 Medical HOURS Branch UNTIL ALL TAKEN fluconazole 2021-0 Yes 150mg Take 150 U nivers 150 mg 1-18 mg by ity of tablet 00:00: mouth [place] 00 daily. Medical Branch ciprofloxac Yes TAKE ONE Un [place]ernanda in HCl 500 1-18 TABLET BY ity of mg tablet 00:00: MOUTH [place] 00 EVERY 12 Medical HOURS Branch UNTIL ALL TAKEN fluconazole 2021-0 Yes 150mg Take 150 U nivers 150 mg 1-18 mg by ity of tablet 00:00: mouth [place] 00 daily. Medical Branch ciprofloxac Yes TAKE ONE Un fernanda in HCl 500 1-18 TABLET BY ity of mg tablet 00:00: MOUTH [place] 00 EVERY 12 Medical HOURS Branch UNTIL ALL TAKEN fluconazole 2021-0 Yes 150mg Take 150 U nivers 150 mg 1-18 mg by ity of tablet 00:00: mouth [place] 00 daily. Medical Branch ciprofloxac Yes TAKE ONE Un [place] in HCl 500 1-18 TABLET BY ity of mg tablet 00:00: MOUTH [place] 00 EVERY 12 Medical HOURS Branch UNTIL ALL TAKEN fluconazole 2021-0 Yes 150mg Take 150 U nivers 150 mg 1-18 mg by ity of tablet 00:00: mouth [place] 00 daily. Medical Branch ciprofloxac Yes TAKE ONE Un fernanda in HCl 500 1-18 TABLET BY ity of mg tablet 00:00: MOUTH [place] 00 EVERY 12 Medical HOURS Branch UNTIL ALL TAKEN fluconazole 2021-0 Yes 150mg Take 150 U nivers 150 mg 1-18 mg by ity of tablet 00:00: mouth [place] 00 daily. Medical Branch ciprofloxac Yes TAKE ONE Un [place] in HCl 500 1-18 TABLET BY ity of mg tablet 00:00: MOUTH [place] 00 EVERY 12 Medical HOURS Branch UNTIL ALL TAKEN fluconazole 2021-0 Yes 150mg Take 150 U nivers 150 mg 1-18 mg by ity of tablet 00:00: mouth [place] 00 daily. Medical Branch ciprofloxac Yes TAKE ONE Un [place] in HCl 500 1-18 TABLET BY ity of mg tablet 00:00: MOUTH [place] 00 EVERY 12 Medical HOURS Branch UNTIL ALL TAKEN fluconazole 2021-0 Yes 150mg Take 150 U nivers 150 mg 1-18 mg by ity of tablet 00:00: mouth [place] 00 daily. Medical Branch ciprofloxac Yes TAKE ONE Un [place] in HCl 500 1-18 TABLET BY ity of mg tablet 00:00: MOUTH [place] 00 EVERY 12 Medical HOURS Branch UNTIL ALL TAKEN fluconazole 2021-0 Yes 150mg Take 150 U nivers 150 mg 1-18 mg by ity of tablet 00:00: mouth [place] 00 daily. Medical Branch ciprofloxac Yes TAKE ONE Un [place] in HCl 500 1-18 TABLET BY ity of mg tablet 00:00: MOUTH [place] 00 EVERY 12 Medical HOURS Branch UNTIL ALL TAKEN fluconazole 2021-0 Yes 150mg Take 150 U nivers 150 mg 1-18 mg by ity of tablet 00:00: mouth [place] 00 daily. Medical Branch ciprofloxac Yes TAKE ONE Un [place] in HCl 500 1-18 TABLET BY ity of mg tablet 00:00: MOUTH 00 EVERY 12 Medical HOURS Branch UNTIL ALL TAKEN fluconazole 2021-0 Yes 150mg Take 150 U nivers 150 mg 1-18 mg by ity of tablet 00:00: mouth [place] 00 daily. Medical Branch ciprofloxac Yes TAKE ONE Un [place] in HCl 500 1-18 TABLET BY ity of mg tablet 00:00: MOUTH [place] 00 EVERY 12 Medical HOURS Branch UNTIL ALL TAKEN fluconazole 2021-0 Yes 150mg Take 150 U nivers 150 mg 1-18 mg by ity of tablet 00:00: mouth [place] 00 daily. Medical Branch ciprofloxac Yes TAKE ONE Un [place] in HCl 500 1-18 TABLET BY ity of mg tablet 00:00: MOUTH [place] 00 EVERY 12 Medical HOURS Branch UNTIL ALL TAKEN fluconazole 2021-0 Yes 150mg Take 150 U nivers 150 mg 1-18 mg by ity of tablet 00:00: mouth [place] 00 daily. Medical Branch ciprofloxac Yes TAKE ONE Un [place] in HCl 500 1-18 TABLET BY ity of mg tablet 00:00: MOUTH [place] 00 EVERY 12 Medical HOURS Branch UNTIL ALL TAKEN fluconazole 2021-0 Yes 150mg Take 150 U nivers 150 mg 1-18 mg by ity of tablet 00:00: mouth [place] 00 daily. Medical Branch ciprofloxac Yes TAKE ONE Un f[place]anda in HCl 500 1-18 TABLET BY ity of mg tablet 00:00: MOUTH [place] 00 EVERY 12 Medical HOURS Branch UNTIL ALL TAKEN fluconazole Yes 150mg Take 150 U nivers 150 mg 1-18 mg by ity of tablet 00:00: mouth [place] 00 daily. Medical Branch acetaminoph 2021- No TAKE 2 Uni vers en-codeine 1-18 12-29 TABLETS BY it y of 300-30 mg 00:00: 00:00 MOUTH [place] tablet 00 :00 EVERY 6 Medical HOURS Branch NEEDED FOR PAIN metroNIDAZO 2021- No TAKE 1 Uni vers LE 500 mg 1-18 12-29 TABLET BY ity of tablet 00:00: 00:00 MOUTH [place] 00 :00 EVERY 8 Medical HOURS Branch UNTIL ALL TAKEN acetaminoph 2021- No TAKE 2 Uni vers en-codeine 1-18 12-29 TABLETS BY it y of 300-30 mg 00:00: 00:00 MOUTH [place] tablet 00 :00 EVERY 6 Medical HOURS Branch NEEDED FOR PAIN metroNIDAZO 2021- No TAKE 1 Uni vers LE 500 mg 1-18 12-29 TABLET BY ity of tablet 00:00: 00:00 MOUTH [place] 00 :00 EVERY 8 Medical HOURS Branch UNTIL ALL TAKEN acetaminoph 2021- No TAKE 2 Uni vers en-codeine 1-18 12-29 TABLETS BY it y of 300-30 mg 00:00: 00:00 MOUTH [place] tablet 00 :00 EVERY 6 Medical HOURS Branch NEEDED FOR PAIN metroNIDAZO 2021- No TAKE 1 Uni vers LE 500 mg 1-18 12-29 TABLET BY ity of tablet 00:00: 00:00 MOUTH [place] 00 :00 EVERY 8 Medical HOURS Branch UNTIL ALL TAKEN acetaminoph 2021- No TAKE 2 Uni vers en-codeine 1-18 12-29 TABLETS BY it y of 300-30 mg 00:00: 00:00 MOUTH [place] tablet 00 :00 EVERY 6 Medical HOURS Branch NEEDED FOR PAIN metroNIDAZO 2021- No TAKE 1 Uni vers LE 500 mg 1-18 12-29 TABLET BY ity of tablet 00:00: 00:00 MOUTH [place] 00 :00 EVERY 8 Medical HOURS Branch UNTIL ALL TAKEN acetaminoph 2021-2021- No TAKE 2 Uni vers en-codeine 18 -29 TABLETS BY it y of 300-30 mg 00:00: 00:00 MOUTH [place] tablet 00 :00 EVERY 6 Medical HOURS Branch NEEDED FOR PAIN metroNIDAZO 2021- No TAKE 1 Uni vers LE 500 mg 10-2929 TABLET BY ity of tablet 00:00: 00:00 MOUTH [place] 00 :00 EVERY 8 Medical HOURS Branch UNTIL ALL TAKEN acetaminoph 2021- No TAKE 2 Uni vers en-codeine 10-29-29 TABLETS BY it y of 300-30 mg 00:00: 00:00 MOUTH [place] tablet 00 :00 EVERY 6 Medical HOURS Branch NEEDED FOR PAIN metroNIDAZO 2021- No TAKE 1 Uni vers LE 500 mg 10-29 TABLET BY ity of tablet 00:00: 00:00 MOUTH [place] 00 :00 EVERY 8 Medical HOURS Branch UNTIL ALL TAKEN acetaminoph 2021- No TAKE 2 Uni vers en-codeine 10-29 TABLETS BY it y of 300-30 mg 00:00: 00:00 MOUTH [place] tablet 00 :00 EVERY 6 Medical HOURS Branch NEEDED FOR PAIN metroNIDAZO 2021- No TAKE 1 Uni vers LE 500 mg 10-2929 TABLET BY ity of tablet 00:00: 00:00 MOUTH [place] 00 :00 EVERY 8 Medical HOURS Branch UNTIL ALL TAKEN levothyroxi Yes [id number] 125ug Take 1 Univers ne 125 mcg 1-12 tablet by ity of tablet 00:00: mouth [place] 00 every Medical morning. Branch simvastatin Yes [id number] 20mg Take 1 [facility] 20 mg 1-12 tablet by ity of tablet 00:00: mouth at [place] 00 bedtime. Medical Branch Insulin Yes [id number] 15U inject 15 [facility] Glargine 1-12 Units ity of 100 unit/mL 00:00: under the [place] (3 mL) 00 skin daily Medical injection before Branch breakfast. levothyroxi Yes [id number] 125ug Take 1 Univers ne 125 mcg 1-12 tablet by ity of tablet 00:00: mouth [place] 00 every Medical morning. Branch simvastatin 2021-0 Yes [id number] 20mg Take 1 [facility] 20 mg 1-12 tablet by ity of tablet 00:00: mouth at [place] 00 bedtime. Medical Branch Insulin 2021-0 Yes [id number] 15U inject 15 [facility] Glargine 1-12 Units ity of 100 unit/mL 00:00: under the [place] (3 mL) 00 skin daily Medical injection before [place] breakfast. levothyroxi 2021-0 Yes [id number] 125ug Take 1 [facility] ne 125 mcg 1-12 tablet by ity of tablet 00:00: mouth [place] 00 every Medical morning. Branch simvastatin 0 Yes [id number] 20mg Take 1 [facility] 20 mg 1-12 tablet by ity of tablet 00:00: mouth at [place] [address] bedtime. Medical Branch Insulin 2021-0 Yes [id number] 15U inject 15 [facility] Glargine 1-12 Units ity of 100 unit/mL 00:00: under [place] (3 mL) 00 skin daily Medical injection before [place] breakfast. levothyroxi 2021-0 Yes [id number] 125ug Take 1 [facility] ne 125 mcg 1-12 tablet by ity of tablet 00:00: mouth [place] 00 every Medical morning. Branch simvastatin 0 Yes [id number] 20mg Take 1 [facility] 20 mg 1-12 tablet by ity of tablet 00:00: mouth at [place] 00 bedtime. Medical Branch Insulin 2021-0 Yes [id number] 15U inject 15 [facility] Glargine 1-12 Units ity of 100 unit/mL 00:00: under [place] (3 mL) 00 skin daily Medical injection before [place] breakfast. levothyroxi 2021-0 Yes [id number] 125ug Take 1 [facility] ne 125 mcg 1-12 tablet by ity of tablet 00:00: mouth [place] 00 every Medical morning. Branch simvastatin 2021-0 Yes [id number] 20mg Take 1 [facility] 20 mg 1-12 tablet by ity of tablet 00:00: mouth at [place] 00 bedtime. Medical Branch Insulin 2021-0 Yes [id number] 15U inject 15 [facility] Glargine 1-12 Units ity of 100 unit/mL 00:00: under [place] (3 mL) 00 skin daily Medical injection before [place] breakfast. levothyroxi Yes [id number] 125ug Take 1 [facility] ne 125 mcg 1-12 tablet by ity of tablet 00:00: mouth [place] 00 every Medical morning. Branch simvastatin Yes [id number] 20mg Take 1 [facility] 20 mg 1-12 tablet by ity of tablet 00:00: mouth at [place] 00 bedtime. [facility] Insulin Yes [id number] 15U inject 15 [facility] Glargine 1-12 Units ity of 100 unit/mL 00:00: under [place] (3 mL) 00 skin daily Medical injection before [place] breakfast. levothyroxi Yes [id number] 125ug Take 1 [facility] ne 125 mcg 1-12 tablet by ity of tablet 00:00: mouth [place] 00 every Medical morning. [place] simvastatin Yes [id number] 20mg Take 1 [facility] 20 mg 1-12 tablet by ity of tablet 00:00: mouth at [place] 00 bedtime. [facility] Insulin Yes [id number] 15U inject 15 [facility] Glargine 1-12 Units ity of 100 unit/mL 00:00: under [place] (3 mL) 00 skin daily Medical injection before [place] breakfast. levothyroxi Yes [id number] 125ug Take 1 [facility] ne 125 mcg 1-12 tablet by ity of tablet 00:00: mouth [place] 00 every Medical morning. [place] simvastatin Yes [id number] 20mg Take 1 [facility] 20 mg 1-12 tablet by ity of tablet 00:00: mouth at [place] 00 bedtime. [facility] Insulin Yes [id number] 15U inject 15 [facility] Glargine 1-12 Units ity of 100 unit/mL 00:00: under [place] (3 mL) 00 skin daily Medical injection before [place] breakfast. levothyroxi Yes [id number] 125ug Take 1 [facility] ne 125 mcg 1-12 tablet by ity of tablet 00:00: mouth [place] 00 every Medical morning. [place] simvastatin Yes [id number] 20mg Take 1 [facility] 20 mg 1-12 tablet by ity of tablet 00:00: mouth at [place] 00 bedtime. [facility] Insulin Yes [id number] 15U inject 15 [facility] Glargine 1-12 Units ity of 100 unit/mL 00:00: under [place] (3 mL) 00 skin daily Medical injection before [place] breakfast. levothyroxi 2021-0 Yes [id number] 125ug Take 1 [facility] ne 125 mcg 1-12 tablet by ity of tablet 00:00: mouth [place] 00 every Medical morning. Branch simvastatin 0 Yes [id number] 20mg Take 1 [facility] 20 mg 1-12 tablet by ity of tablet 00:00: mouth at [place] 00 bedtime. Medical Branch Insulin 0 Yes [id number] 15U inject 15 [facility] Glargine 1-12 Units ity of 100 unit/mL 00:00: under [place] (3 mL) 00 skin daily Medical injection before [place] breakfast. levothyroxi 2021-0 Yes [id number] 125ug Take 1 [facility] ne 125 mcg 1-12 tablet by ity of tablet 00:00: mouth [place] 00 every Medical morning. Branch simvastatin 0 Yes [id number] 20mg Take 1 [facility] 20 mg 1-12 tablet by ity of tablet 00:00: mouth at [place] 00 bedtime. Medical Branch Insulin 0 Yes [id number] 15U inject 15 [facility] Glargine 1-12 Units ity of 100 unit/mL 00:00: under the [place] (3 mL) 00 skin daily Medical injection before [place] breakfast. levothyroxi 2021-0 Yes [id number] 125ug Take 1 [facility] ne 125 mcg 1-12 tablet by ity of tablet 00:00: mouth [place] 00 every Medical morning. Branch simvastatin 2021-0 Yes [id number] 20mg Take 1 [facility] 20 mg 1-12 tablet by ity of tablet 00:00: mouth at [place] 00 bedtime. Medical Branch Insulin 0 Yes [id number] 15U inject 15 [facility] Glargine 1-12 Units ity of 100 unit/mL 00:00: under the [place] (3 mL) 00 skin daily Medical injection before [place] breakfast. levothyroxi 2021-0 Yes [id number] 125ug Take 1 [facility] ne 125 mcg 1-12 tablet by ity of tablet 00:00: mouth [place] 00 every Medical morning. Branch simvastatin 2021-0 Yes [id number] 20mg Take 1 [facility] 20 mg 1-12 tablet by ity of tablet 00:00: mouth at [place] 00 bedtime. Medical [place] Insulin 2021-0 Yes [id number] 15U inject 15 [facility] Glargine 1-12 Units ity of 100 unit/mL 00:00: under the [place] (3 mL) 00 skin daily Medical injection before [place] breakfast. levothyroxi 2021-0 Yes [id number] 125ug Take 1 [facility] ne 125 mcg 1-12 tablet by ity of tablet 00:00: mouth [place] 00 every Medical morning. Branch simvastatin 2021-0 Yes [id number] 20mg Take 1 [facility] 20 mg 1-12 tablet by ity of tablet 00:00: mouth at [place] 00 bedtime. Medical [place] Insulin 0 Yes [id number] 15U inject 15 [facility] Glargine 1-12 Units ity of 100 unit/mL 00:00: under the [place] (3 mL) 00 skin daily Medical injection before [place] breakfast. levothyroxi 2021-0 Yes [id number] 125ug Take 1 [facility] ne 125 mcg 1-12 tablet by ity of tablet 00:00: mouth [place] 00 every Medical morning. Branch simvastatin 2021-0 Yes [id number] 20mg Take 1 [facility] 20 mg 1-12 tablet by ity of tablet 00:00: mouth at [place] 00 bedtime. Medical [place] Insulin 0 Yes [id number] 15U inject 15 [facility] Glargine 1-12 Units ity of 100 unit/mL 00:00: under the [place] (3 mL) 00 skin daily Medical injection before [place] breakfast. levothyroxi 2021-0 Yes [id number] 125ug Take 1 [facility] ne 125 mcg 1-12 tablet by ity of tablet 00:00: mouth [place] 00 every Medical morning. Branch simvastatin 2021-0 Yes [id number] 20mg Take 1 [facility] 20 mg 1-12 tablet by ity of tablet 00:00: mouth at [place] 00 bedtime. Medical [place] Insulin 2021-0 Yes [id number] 15U inject 15 [facility] Glargine 1-12 Units ity of 100 unit/mL 00:00: under the [place] (3 mL) 00 skin daily Medical injection before [place] breakfast. levothyroxi 2021-0 Yes [id number] 125ug Take 1 [facility] ne 125 mcg 1-12 tablet by ity of tablet 00:00: mouth [place] 00 every Medical morning. Branch simvastatin Yes [id number] 20mg Take 1 [facility] 20 mg 1-12 tablet by ity of tablet 00:00: mouth at [place] [address] bedtime. Medical Branch Insulin Yes [id number] 15U inject 15 [facility] Glargine 1-12 Units ity of 100 unit/mL 00:00: under the [place] (3 mL) 00 skin daily Medical injection before [place] breakfast. levothyroxi Yes [id number] 125ug Take 1 [facility] ne 125 mcg 1-12 tablet by ity of tablet 00:00: mouth [place] 00 every Medical morning. Branch simvastatin Yes [id number] 20mg Take 1 [facility] 20 mg 1-12 tablet by ity of tablet 00:00: mouth at [place] [address] bedtime. Medical [place] Insulin Yes [id number] 15U inject 15 [facility] Glargine 1-12 Units ity of 100 unit/mL 00:00: under the [place] (3 mL) 00 skin daily Medical injection before [place] breakfast. levothyroxi Yes [id number] 125ug Take 1 [facility] ne 125 mcg 1-12 tablet by ity of tablet 00:00: mouth [place] 00 every Medical morning. Branch simvastatin Yes [id number] 20mg Take 1 [facility] 20 mg 1-12 tablet by ity of tablet 00:00: mouth at [place] [address] bedtime. Medical [place] Insulin Yes [id number] 15U inject 15 [facility] Glargine 1-12 Units ity of 100 unit/mL 00:00: under the [place] (3 mL) 00 skin daily Medical injection before [place] breakfast. Levothyroxi Yes 1{tbl} Take 1 [place] [facility] Sodium 1-12 tablet by [facility] 125 MCG 00:00: mouth [place] Table[place] 00 every 24 hours Simvastatin Yes simvastati [place]ema 20 MG oral 1-12 n 20 mg [facility] Tablet 00:00: tablet 00 Levothyroxi 2021-0 Yes 1{tbl} Take 1 [place] ne Sodium 1-12 tablet by [facility] 125 MCG 00:00: mouth [place] Tablet 00 every 24 hours Simvastatin 2021- Yes simvastati Reema 20 MG oral 1-12 n 20 mg [facility] Tablet 00:00: tablet 00 Simvastatin 2022-0 Yes simantoinettetati [place] 20 MG oral 1-12 n 20 mg [facility] Tablet 00:00: tablet 00 Simvastatin 2022-0 Yes 20mg Take 20 mg Reema 20 MG oral 1-12 by mouth [place] [facility] Tablet 00:00: nightly 00 methocarbam 2020-10 Yes [id number] 500mg Take 1 [facility] oL 2-24 tablet by ity of (ROBAXIN) 00:00: mouth 4 [place] 500 mg 00 (four) Medical tablet times Branch daily. phenazopyri 2020-10 Yes [id number] 200mg Take 2 [facility] dine 100 mg 2-24 tablets by it y of tablet 00:00: mouth 3 [place] 00 (three) Medical times Branch daily. methocarbam 2020-10 Yes [id number] 500mg Take 1 [facility] oL 2-24 tablet by ity of (ROBAXIN) 00:00: mouth 4 [place] 500 mg 00 (four) Medical tablet times Branch daily. phenazopyri 2020-10 Yes [id number] 200mg Take 2 [facility] dine 100 mg 2-24 tablets by it y of tablet 00:00: mouth 3 00 (three) Medical times Branch daily. methocarbam 2020-10 Yes [id number] 500mg Take 1 [facility] oL 2-24 tablet by ity of (ROBAXIN) 00:00: mouth 4 [place] 500 mg 00 (four) Medical tablet times Branch daily. phenazopyri 2020-10 Yes [id number] 200mg Take 2 [facility] dine 100 mg 2-24 tablets by it y of tablet 00:00: mouth 3 [place] 00 (three) Medical times Branch daily. methocarbam 2020-10 Yes [id number] 500mg Take 1 [facility] oL 2-24 tablet by ity of (ROBAXIN) 00:00: mouth 4 [place] 500 mg 00 (four) Medical tablet times Branch daily. phenazopyri 2020-10 Yes [id number] 200mg Take 2 [facility] dine 100 mg 2-24 tablets by it y of tablet 00:00: mouth 3 [place] 00 (three) Medical times Branch daily. methocarbam 2020-10 Yes [id number] 500mg Take 1 [facility] oL 2-24 tablet by ity of (ROBAXIN) 00:00: mouth 4 [place] 500 mg 00 (four) Medical tablet times Branch daily. phenazopyri 2020-10 Yes [id number] 200mg Take 2 [facility] dine 100 mg 2-24 tablets by it y of tablet 00:00: mouth 3 [place] 00 (three) Medical times Branch daily. methocarbam 2020-10 Yes [id number] 500mg Take 1 [facility] oL 2-24 tablet by ity of (ROBAXIN) 00:00: mouth 4 [place] 500 mg 00 (four) Medical tablet times Branch daily. phenazopyri 2020-10 Yes [id number] 200mg Take 2 [facility] dine 100 mg 2-24 tablets by it y of tablet 00:00: mouth 3 00 (three) Medical times Branch daily. methocarbam 2020-10 Yes [id number] 500mg Take 1 [facility] oL 2-24 tablet by ity of (ROBAXIN) 00:00: mouth 4 [place] 500 mg 00 (four) Medical tablet times Branch daily. phenazopyri 2020-10 Yes [id number] 200mg Take 2 [facility] dine 100 mg 2-24 tablets by it y of tablet 00:00: mouth 3 (three) Medical times Branch daily. methocarbam 2020-10 Yes [id number] 500mg Take 1 [facility] oL 2-24 tablet by ity of (ROBAXIN) 00:00: mouth 4 [place] 500 mg 00 (four) Medical tablet times Branch daily. phenazopyri 2020-10 Yes [id number] 200mg Take 2 [facility] dine 100 mg 2-24 tablets by it y of tablet 00:00: mouth 3 00 (three) Medical times Branch daily. methocarbam 2020-10 Yes [id number] 500mg Take 1 [facility] oL 2-24 tablet by ity of (ROBAXIN) 00:00: mouth 4 [place] 500 mg 00 (four) Medical tablet times Branch daily. phenazopyri 2020-10 Yes [id number] 200mg Take 2 [facility] dine 100 mg 2-24 tablets by it y of tablet 00:00: mouth 3 [place] 00 (three) Medical times Branch daily. methocarbam 2020-10 Yes [id number] 500mg Take 1 [facility] oL 2-24 tablet by ity of (ROBAXIN) 00:00: mouth 4 [place] 500 mg 00 (four) Medical tablet times Branch daily. phenazopyri 2020-10 Yes [id number] 200mg Take 2 [facility] dine 100 mg 2-24 tablets by it y of tablet 00:00: mouth 3 00 (three) Medical times Branch daily. methocarbam 2020-10 Yes [id number] 500mg Take 1 [facility] oL 2-24 tablet by ity of (ROBAXIN) 00:00: mouth 4 [place] 500 mg 00 (four) Medical tablet times Branch daily. phenazopyri 2020-10 Yes [id number] 200mg Take 2 [facility] dine 100 mg 2-24 tablets by it y of tablet 00:00: mouth 3 00 (three) Medical times Branch daily. methocarbam 2020-10 Yes [id number] 500mg Take 1 [facility] oL 2-24 tablet by ity of (ROBAXIN) 00:00: mouth 4 [place] 500 mg 00 (four) Medical tablet times Branch daily. phenazopyri 2020-10 Yes [id number] 200mg Take 2 [facility] dine 100 mg 2-24 tablets by it y of tablet 00:00: mouth 3 (three) Medical times Branch daily. methocarbam 2020-10 Yes [id number] 500mg Take 1 [facility] oL 2-24 tablet by ity of (ROBAXIN) 00:00: mouth 4 [place] 500 mg 00 (four) Medical tablet times Branch daily. phenazopyri 2020-10 Yes [id number] 200mg Take 2 [facility] dine 100 mg 2-24 tablets by it y of tablet 00:00: mouth 3 (three) Medical times Branch daily. methocarbam 2020-10 Yes [id number] 500mg Take 1 [facility] oL 2-24 tablet by ity of (ROBAXIN) 00:00: mouth 4 [place] 500 mg 00 (four) Medical tablet times Branch daily. phenazopyri 2020-10 Yes [id number] 200mg Take 2 [facility] dine 100 mg 2-24 tablets by it y of tablet 00:00: mouth 3 00 (three) Medical times Branch daily. methocarbam 2020-10 Yes [id number] 500mg Take 1 [facility] oL 2-24 tablet by ity of (ROBAXIN) 00:00: mouth 4 [place] 500 mg 00 (four) Medical tablet times Branch daily. phenazopyri 2020-10 Yes [id number] 200mg Take 2 [facility] dine 100 mg 2-24 tablets by it y of tablet 00:00: mouth 3 (three) Medical times Branch daily. methocarbam 2020-10 Yes [id number] 500mg Take 1 [facility] oL 2-24 tablet by ity of (ROBAXIN) 00:00: mouth 4 [place] 500 mg 00 (four) Medical tablet times Branch daily. phenazopyri 2020-10 Yes [id number] 200mg Take 2 [facility] dine 100 mg 2-24 tablets by it y of tablet 00:00: mouth 3 [place] 00 (three) Medical times Branch daily. methocarbam 2020-10 Yes [id number] 500mg Take 1 [facility] oL 2-24 tablet by ity of (ROBAXIN) 00:00: mouth 4 [place] 500 mg 00 (four) Medical tablet times Branch daily. phenazopyri 2020-10 Yes [id number] 200mg Take 2 [facility] dine 100 mg 2-24 tablets by it y of tablet 00:00: mouth 3 (three) Medical times Branch daily. methocarbam 2020-10 Yes [id number] 500mg Take 1 [facility] oL 2-24 tablet by ity of (ROBAXIN) 00:00: mouth 4 [place] 500 mg 00 (four) Medical tablet times Branch daily. phenazopyri 2020-10 Yes [id number] 200mg Take 2 [facility] dine 100 mg 2-24 tablets by it y of tablet 00:00: mouth 3 (three) Medical times Branch daily. methocarbam 2020-10 Yes [id number] 500mg Take 1 [facility] oL 2-24 tablet by ity of (ROBAXIN) 00:00: mouth 4 [place] 500 mg 00 (four) Medical tablet times Branch daily. phenazopyri 2020-10 Yes [id number] 200mg Take 2 [facility] dine 100 mg 2-24 tablets by it y of tablet 00:00: mouth 3 (three) Medical times Branch daily. carvediloL 2020-10 Yes [id number] 25mg Take 1 U nivers 25 mg 1-16 tablet by ity of tablet 00:00: mouth 2 (two) Medical times Branch daily. carvediloL 2020-10 Yes [id number] 25mg Take 1 U nivers 25 mg 1-16 tablet by ity of tablet 00:00: mouth 2 (two) Medical times Branch daily. carvediloL 2020-10 Yes [id number] 25mg Take 1 U nivers 25 mg 1-16 tablet by ity of tablet 00:00: mouth (two) Medical times Branch daily. carvediloL 2020-10 Yes [id number] 25mg Take 1 U nivers 25 mg 1-16 tablet by ity of tablet 00:00: mouth (two) Medical times Branch daily. carvediloL 2020-10 Yes [id number] 25mg Take 1 U nivers 25 mg 1-16 tablet by ity of tablet 00:00: mouth (two) Medical times Branch daily. carvediloL 2020-10 Yes [id number] 25mg Take 1 U nivers 25 mg 1-16 tablet by ity of tablet 00:00: mouth (two) Medical times Branch daily. carvediloL 2020-10 Yes [id number] 25mg Take 1 U nivers 25 mg 1-16 tablet by ity of tablet 00:00: mouth (two) Medical times Branch daily. carvediloL 2020-10 Yes [id number] 25mg Take 1 U nivers 25 mg 1-16 tablet by ity of tablet 00:00: mouth (two) Medical times Branch daily. carvediloL 2020-10 Yes [id number] 25mg Take 1 U nivers 25 mg 1-16 tablet by ity of tablet 00:00: mouth (two) Medical times Branch daily. carvediloL 2020-10 Yes [id number] 25mg Take 1 U nivers 25 mg 1-16 tablet by ity of tablet 00:00: mouth (two) Medical times Branch daily. carvediloL 2020-10 Yes [id number] 25mg Take 1 U nivers 25 mg 1-16 tablet by ity of tablet 00:00: mouth (two) Medical times Branch daily. carvediloL 2020-10 Yes [id number] 25mg Take 1 U nivers 25 mg 1-16 tablet by ity of tablet 00:00: mouth (two) Medical times Branch daily. carvediloL 2020-10 Yes [id number] 25mg Take 1 U nivers 25 mg 1-16 tablet by ity of tablet 00:00: mouth (two) Medical times Branch daily. carvediloL 2020-10 Yes [id number] 25mg Take 1 U nivers 25 mg 1-16 tablet by ity of tablet 00:00: mouth 2 (two) Medical times Branch daily. carvediloL 2020-10 Yes [id number] 25mg Take 1 U nivers 25 mg 1-16 tablet by ity of tablet 00:00: mouth 2 (two) Medical times Branch daily. carvediloL 2020-10 Yes [id number] 25mg Take 1 U nivers 25 mg 1-16 tablet by ity of tablet 00:00: mouth 2 (two) Medical times Branch daily. carvediloL 2020-10 Yes [id number] 25mg Take 1 U nivers 25 mg 1-16 tablet by ity of tablet 00:00: mouth 2 (two) Medical times Branch daily. carvediloL 2020-10 Yes [id number] 25mg Take 1 U nivers 25 mg 1-16 tablet by ity of tablet 00:00: mouth 2 (two) Medical times Branch daily. carvediloL 2020-10 Yes [id number] 25mg Take 1 U nivers 25 mg 1-16 tablet by ity of tablet 00:00: mouth 2 (two) Medical times Branch daily. clobetasoL 2020-10 Yes [id number] Apply to Univers 0.05 % 0-05 area(s) 2 ity of ointment 00:00: (two) [place] times Medical daily. Branch clobetasoL 2020-10 Yes [id number] Apply to Univers 0.05 % 0-05 area(s) 2 ity of ointment 00:00: (two) [place] times Medical daily. Branch clobetasoL 2020-10 Yes [id number] Apply to Univers 0.05 % 0-05 area(s) 2 ity of ointment 00:00: (two) times Medical daily. Branch clobetasoL 2020-10 Yes [id number] Apply to Univers 0.05 % 0-05 area(s) 2 ity of ointment 00:00: (two) [place] times Medical daily. Branch clobetasoL 2020- Yes [id number] Apply to Univers 0.05 % 0-05 area(s) 2 ity of ointment 00:00: (two) [place] times Medical daily. Branch clobetasoL 2020-1 Yes [id number] Apply to Univers 0.05 % 0-05 area(s) 2 ity of ointment 00:00: (two) [place] 00 times Medical daily. Branch clobetasoL 1-1 Yes [id number] Apply to Univers 0.05 % 0-05 area(s) 2 ity of ointment 00:00: (two) [place] 00 times Medical daily. Branch clobetasoL 1-1 Yes [id number] Apply to Univers 0.05 % 0-05 area(s) 2 ity of ointment 00:00: (two) [place] 00 times Medical daily. Branch clobetasoL 1-1 Yes [id number] Apply to Univers 0.05 % 0-05 area(s) 2 ity of ointment 00:00: (two) [place] 00 times Medical daily. Branch clobetasoL 1-1 Yes [id number] Apply to Univers 0.05 % 0-05 area(s) 2 ity of ointment 00:00: (two) [place] 00 times Medical daily. Branch clobetasoL 2020-1 Yes [id number] Apply to Univers 0.05 % 0-05 area(s) 2 ity of ointment 00:00: (two) [place] 00 times Medical daily. Branch clobetasoL 1-1 Yes [id number] Apply to Univers 0.05 % 0-05 area(s) 2 ity of ointment 00:00: (two) [place] 00 times Medical daily. Branch clobetasoL 1-1 Yes [id number] Apply to Univers 0.05 % 0-05 area(s) 2 ity of ointment 00:00: (two) [place] 00 times Medical daily. Branch clobetasoL 1-1 Yes [id number] Apply to Univers 0.05 % 0-05 area(s) 2 ity of ointment 00:00: (two) [place] 00 times Medical daily. Branch clobetasoL 1-1 Yes [id number] Apply to Univers 0.05 % 0-05 area(s) 2 ity of ointment 00:00: (two) [place] 00 times Medical daily. Branch clobetasoL 1-1 Yes [id number] Apply to Univers 0.05 % 0-05 area(s) 2 ity of ointment 00:00: (two) [place] 00 times Medical daily. Branch clobetasoL 2020- Yes [id number] Apply to Univers 0.05 % 0-05 area(s) 2 ity of ointment 00:00: (two) [place] 00 times Medical daily. Branch clobetasoL 2020-1 Yes [id number] Apply to Univers 0.05 % 0-05 area(s) 2 ity of ointment 00:00: (two) [place] times Medical daily. Branch clobetasoL 2020- Yes [id number] Apply to Univers 0.05 % 0-05 area(s) 2 ity of ointment 00:00: (two) times Medical daily. Branch OMEPRAZOLE 1-0 Yes [id number] TAKE ONE Univers 40 mg 9-30 CAPSULE BY ity of capsule 00:00: [facility] DAILY Medical Branch OMEPRAZOLE 2021-0 Yes [id number] TAKE ONE Univers 40 mg 9-30 CAPSULE BY ity of capsule 00:00: [facility] DAILY Medical Branch OMEPRAZOLE 2021-0 Yes [id number] TAKE ONE Univers 40 mg 9-30 CAPSULE BY ity of capsule 00:00: [facility] DAILY Medical Branch OMEPRAZOLE 2021-0 Yes [id number] TAKE ONE Univers 40 mg 9-30 CAPSULE BY ity of capsule 00:00: [facility] DAILY Medical Branch OMEPRAZOLE 2021-0 Yes [id number] TAKE ONE Univers 40 mg 9-30 CAPSULE BY ity of capsule 00:00: [facility] DAILY Medical Branch OMEPRAZOLE 2021-0 Yes [id number] TAKE ONE Univers 40 mg 9-30 CAPSULE BY ity of capsule 00:00: [facility] DAILY Medical Branch OMEPRAZOLE 2021-0 Yes [id number] TAKE ONE Univers 40 mg 9-30 CAPSULE BY ity of capsule 00:00: [facility] DAILY Medical Branch OMEPRAZOLE 2021-0 Yes [id number] TAKE ONE Univers 40 mg 9-30 CAPSULE BY ity of capsule 00:00: [facility] DAILY Medical Branch OMEPRAZOLE 2021-0 Yes [id number] TAKE ONE Univers 40 mg 9-30 CAPSULE BY ity of capsule 00:00: [facility] DAILY Medical Branch OMEPRAZOLE 2021-0 Yes [id number] TAKE ONE Univers 40 mg 9-30 CAPSULE BY ity of capsule 00:00: MOUTH [place] 00 DAILY Medical Branch OMEPRAZOLE 2021-0 Yes [id number] TAKE ONE Univers 40 mg 9-30 CAPSULE BY ity of capsule 00:00: MOUTH 00 DAILY Medical Branch OMEPRAZOLE 2021-0 Yes [id number] TAKE ONE Univers 40 mg 9-30 CAPSULE BY ity of capsule 00:00: MOUTH DAILY Medical Branch OMEPRAZOLE 2021-0 Yes [id number] TAKE ONE Univers 40 mg 9-30 CAPSULE BY ity of capsule 00:00: MOUTH DAILY Medical Branch OMEPRAZOLE 2021-0 Yes [id number] TAKE ONE Univers 40 mg 9-30 CAPSULE BY ity of capsule 00:00: MOUTH DAILY Medical Branch OMEPRAZOLE 2021-0 Yes [id number] TAKE ONE Univers 40 mg 9-30 CAPSULE BY ity of capsule 00:00: MOUTH DAILY Medical Branch OMEPRAZOLE 2021-0 Yes [id number] TAKE ONE Univers 40 mg 9-30 CAPSULE BY ity of capsule 00:00: MOUTH DAILY Medical Branch OMEPRAZOLE 2021-0 Yes [id number] TAKE ONE Univers 40 mg 9-30 CAPSULE BY ity of capsule 00:00: MOUTH DAILY Medical Branch OMEPRAZOLE 2021-0 Yes [id number] TAKE ONE Univers 40 mg 9-30 CAPSULE BY ity of capsule 00:00: MOUTH DAILY Medical Branch OMEPRAZOLE 2021-0 Yes [id number] TAKE ONE Univers 40 mg 9-30 CAPSULE BY ity of capsule 00:00: MOUTH DAILY Medical Branch blood sugar 2020-0 Yes [id number] 1{strip 1 Strip Univers diagnostic 5-24 } before ity of (BLOOD 00:00: meals and [place] GLUCOSE 00 at Medical TEST) strip bedtime. Bran ch Check glucose once daily before breakfast; Diagnosis code R73.03 blood sugar 2020-0 Yes [id number] 1{strip 1 Strip Univers diagnostic 5-24 } before ity of (BLOOD 00:00: meals and [place] GLUCOSE 00 at Medical TEST) strip bedtime. Bran ch Check glucose once daily before breakfast; Diagnosis code R73.03 blood sugar 2020-0 Yes [id number] 1{strip 1 Strip Univers diagnostic 5-24 } before ity of (BLOOD 00:00: meals and [place] GLUCOSE 00 at Medical TEST) strip bedtime. Bran ch Check glucose once daily before breakfast; Diagnosis code R73.03 blood sugar 2020-0 Yes [id number] 1{strip 1 Strip Univers diagnostic 5-24 } before ity of (BLOOD 00:00: meals and [place] GLUCOSE 00 at Medical TEST) strip bedtime. Bran ch Check glucose once daily before breakfast; Diagnosis code R73.03 blood sugar 2020-0 Yes [id number] 1{strip 1 Strip Univers diagnostic 5-24 } before ity of (BLOOD 00:00: meals and [place] GLUCOSE 00 at Medical TEST) strip bedtime. Bran ch Check glucose once daily before breakfast; Diagnosis code R73.03 blood sugar 2020- Yes [id number] 1{strip 1 Strip Univers diagnostic 5-24 } before ity of (BLOOD 00:00: meals and [place] GLUCOSE 00 at Medical TEST) strip bedtime. Bran ch Check glucose once daily before breakfast; Diagnosis code R73.03 blood sugar 2020- Yes [id number] 1{strip 1 Strip Univers diagnostic 5-24 } before ity of (BLOOD 00:00: meals and [place] GLUCOSE 00 at Medical TEST) strip bedtime. Bran ch Check glucose once daily before breakfast; Diagnosis code R73.03 blood sugar 2020- Yes [id number] 1{strip 1 Strip Univers diagnostic 5-24 } before ity of (BLOOD 00:00: meals and [place] GLUCOSE 00 at Medical TEST) strip bedtime. Bran ch Check glucose once daily before breakfast; Diagnosis code R73.03 blood sugar 2020- Yes [id number] 1{strip 1 Strip Univers diagnostic 5-24 } before ity of (BLOOD 00:00: meals and [place] GLUCOSE 00 at Medical TEST) strip bedtime. Bran ch Check glucose once daily before breakfast; Diagnosis code R73.03 blood sugar 2020- Yes [id number] 1{strip 1 Strip Univers diagnostic 5-24 } before ity of (BLOOD 00:00: meals and [place] GLUCOSE 00 at Medical TEST) strip bedtime. Bran ch Check glucose once daily before breakfast; Diagnosis code R73.03 blood sugar 2020-0 Yes [id number] 1{strip 1 Strip Univers diagnostic 5-24 } before ity of (BLOOD 00:00: meals and [place] GLUCOSE 00 at Medical TEST) strip bedtime. Bran ch Check glucose once daily before breakfast; Diagnosis code R73.03 blood sugar 2020-0 Yes [id number] 1{strip 1 Strip Univers diagnostic 5-24 } before ity of (BLOOD 00:00: meals and [place] GLUCOSE 00 at Medical TEST) strip bedtime. Bran ch Check glucose once daily before breakfast; Diagnosis code R73.03 blood sugar 2020-0 Yes [id number] 1{strip 1 Strip Univers diagnostic 5-24 } before ity of (BLOOD 00:00: meals and [place] GLUCOSE 00 at Medical TEST) strip bedtime. Bran ch Check glucose once daily before breakfast; Diagnosis code R73.03 blood sugar 2020-0 Yes [id number] 1{strip 1 Strip Univers diagnostic 5-24 } before ity of (BLOOD 00:00: meals and [place] GLUCOSE 00 at Medical TEST) strip bedtime. Bran ch Check glucose once daily before breakfast; Diagnosis code R73.03 blood sugar 2020-0 Yes [id number] 1{strip 1 Strip Univers diagnostic 5-24 } before ity of (BLOOD 00:00: meals and [place] GLUCOSE 00 at Medical TEST) strip bedtime. Bran ch Check glucose once daily before breakfast; Diagnosis code R73.03 blood sugar 2020-0 Yes [id number] 1{strip 1 Strip Univers diagnostic 5-24 } before ity of (BLOOD 00:00: meals and [place] GLUCOSE 00 at Medical TEST) strip bedtime. Bran ch Check glucose once daily before breakfast; Diagnosis code R73.03 blood sugar 2020-0 Yes [id number] 1{strip 1 Strip Univers diagnostic 5-24 } before ity of (BLOOD 00:00: meals and [place] GLUCOSE 00 at Medical TEST) strip bedtime. Bran ch Check glucose once daily before breakfast; Diagnosis code R73.03 blood sugar 2020-0 Yes [id number] 1{strip 1 Strip Univers diagnostic 5-24 } before ity of (BLOOD 00:00: meals and [place] GLUCOSE 00 at Medical TEST) strip bedtime. Bran ch Check glucose once daily before breakfast; Diagnosis code R73.03 blood sugar 2020-0 Yes [id number] 1{strip 1 Strip Univers diagnostic 5-24 } before ity of (BLOOD 00:00: meals and [place] GLUCOSE 00 at Medical TEST) strip bedtime. Bran ch Check glucose once daily before breakfast; Diagnosis code R73.03 Blood-Gluco 2020-0 Yes [id number] Check U nivers se Meter 4-20 glucose ity of Kit 00:00: once daily [place] 00 before Medical breakfast; Branch Diagnosis code R73.03 Blood-Gluco 2021-0 Yes [id number] Check U nivers se Meter 4-20 glucose ity of Kit 00:00: once daily [place] 00 before Medical breakfast; Branch Diagnosis code R73.03 Blood-Gluco 2021-0 Yes [id number] Check U nivers se Meter 4-20 glucose ity of Kit 00:00: once daily [place] 00 before Medical breakfast; Branch Diagnosis code R73.03 Blood-Gluco 2021-0 Yes [id number] Check U nivers se Meter 4-20 glucose ity of Kit 00:00: once daily [place] 00 before Medical breakfast; Branch Diagnosis code R73.03 Blood-Gluco 2021-0 Yes [id number] Check U nivers se Meter 4-20 glucose ity of Kit 00:00: once daily [place] 00 before Medical breakfast; Branch Diagnosis code R73.03 Blood-Gluco 2021-0 Yes [id number] Check U nivers se Meter 4-20 glucose ity of Kit 00:00: once daily [place] 00 before Medical breakfast; Branch Diagnosis code R73.03 Blood-Gluco 2021-0 Yes [id number] Check U nivers se Meter 4-20 glucose ity of Kit 00:00: once daily [place] 00 before Medical breakfast; Branch Diagnosis code R73.03 Blood-Gluco 2021-0 Yes [id number] Check U nivers se Meter 4-20 glucose ity of Kit 00:00: once daily [place] 00 before Medical breakfast; Branch Diagnosis code R73.03 Blood-Gluco 2021-0 Yes [id number] Check U nivers se Meter 4-20 glucose ity of Kit 00:00: once daily [place] 00 before Medical breakfast; Branch Diagnosis code R73.03 Blood-Gluco 2021-0 Yes [id number] Check U nivers se Meter 4-20 glucose ity of Kit 00:00: once daily [place] 00 before Medical breakfast; Branch Diagnosis code R73.03 Blood-Gluco 2021-0 Yes [id number] Check U nivers se Meter 4-20 glucose ity of Kit 00:00: once daily [place] 00 before Medical breakfast; Branch Diagnosis code R73.03 Blood-Gluco 2021-0 Yes [id number] Check U nivers se Meter 4-20 glucose ity of Kit 00:00: once daily [place] 00 before Medical breakfast; Branch Diagnosis code R73.03 Blood-Gluco 2021-0 Yes [id number] Check U nivers se Meter 4-20 glucose ity of Kit 00:00: once daily [place] 00 before Medical breakfast; Branch Diagnosis code R73.03 Blood-Gluco 2021-0 Yes [id number] Check U nivers se Meter 4-20 glucose ity of Kit 00:00: once daily [place] 00 before Medical breakfast; Branch Diagnosis code R73.03 Blood-Gluco 2021-0 Yes [id number] Check U nivers se Meter 4-20 glucose ity of Kit 00:00: once daily [place] 00 before Medical breakfast; Branch Diagnosis code R73.03 Blood-Gluco 2021-0 Yes [id number] Check U nivers se Meter 4-20 glucose ity of Kit 00:00: once daily [place] 00 before Medical breakfast; Branch Diagnosis code R73.03 Blood-Gluco 2021-0 Yes [id number] Check U nivers se Meter 4-20 glucose ity of Kit 00:00: once daily [place] 00 before Medical breakfast; Branch Diagnosis code R73.03 Blood-Gluco 2021-0 Yes [id number] Check U nivers se Meter 4-20 glucose ity of Kit 00:00: once daily [place] 00 before Medical breakfast; Branch Diagnosis code R73.03 Blood-Gluco 2021-0 Yes [id number] Check U nivers se Meter 4-20 glucose ity of Kit 00:00: once daily [place] 00 before Medical breakfast; Branch Diagnosis code R73.03 Lancets 2020-1 Yes [id number] Check Univ ers Misc 1-18 glucose ity of 00:00: once daily [place] 00 before Medical breakfast; Branch Diagnosis code R73.03 Lancets 2020-1 Yes [id number] Check Univ ers Misc 1-18 glucose ity of 00:00: once daily [place] 00 before Medical breakfast; Branch Diagnosis code R73.03 Lancets 2020-1 Yes [id number] Check Univ ers Misc 1-18 glucose ity of 00:00: once daily [place] 00 before Medical breakfast; Branch Diagnosis code R73.03 Lancets 2020-1 Yes [id number] Check Univ ers Misc 1-18 glucose ity of 00:00: once daily [place] 00 before Medical breakfast; Branch Diagnosis code R73.03 Lancets 2020-1 Yes [id number] Check Univ ers Misc 1-18 glucose ity of 00:00: once daily [place] 00 before Medical breakfast; Branch Diagnosis code R73.03 Lancets 2019- Yes [id number] Check Univ ers Misc 1-18 glucose ity of 00:00: once daily [place] 00 before Medical breakfast; Branch Diagnosis code R73.03 Lancets 2019- Yes [id number] Check Univ ers Misc 1-18 glucose ity of 00:00: once daily [place] 00 before Medical breakfast; Branch Diagnosis code R73.03 Lancets 2019- Yes [id number] Check Univ ers Misc 1-18 glucose ity of 00:00: once daily [place] 00 before Medical breakfast; Branch Diagnosis code R73.03 Lancets 2019- Yes [id number] Check Univ ers Misc 1-18 glucose ity of 00:00: once daily [place] 00 before Medical breakfast; Branch Diagnosis code R73.03 Lancets 2019-10 Yes [id number] Check Univ ers Misc 1-18 glucose ity of 00:00: once daily [place] 00 before Medical breakfast; Branch Diagnosis code R73.03 Lancets 2019-10 Yes [id number] Check Univ ers Misc 1-18 glucose ity of 00:00: once daily [place] 00 before Medical breakfast; Branch Diagnosis code R73.03 Lancets 2019-10 Yes [id number] Check Univ ers Misc 1-18 glucose ity of 00:00: once daily [place] 00 before Medical breakfast; Branch Diagnosis code R73.03 Lancets 2019-10 Yes [id number] Check Univ ers Misc 1-18 glucose ity of 00:00: once daily [place] 00 before Medical breakfast; Branch Diagnosis code R73.03 Lancets 2019- Yes [id number] Check Univ ers Misc 1-18 glucose ity of 00:00: once daily [place] 00 before Medical breakfast; Branch Diagnosis code R73.03 Lancets 2019-10 Yes [id number] Check Univ ers Misc 1-18 glucose ity of 00:00: once daily [place] 00 before Medical breakfast; Branch Diagnosis code R73.03 Lancets 2019- Yes [id number] Check Univ ers Misc 1-18 glucose ity of 00:00: once daily [place] 00 before Medical breakfast; Branch Diagnosis code R73.03 Lancets 2019- Yes [id number] Check Univ ers Misc 1-18 glucose ity of 00:00: once daily [place] 00 before Medical breakfast; Branch Diagnosis code R73.03 Lancets 2020-1 Yes [id number] Check Univ ers Misc 1-18 glucose ity of 00:00: once daily [place] 00 before Medical breakfast; Branch Diagnosis code R73.03 Lancets 2020-1 Yes [id number] Check Univ ers Misc 1-18 glucose ity of 00:00: once daily [place] 00 before Medical breakfast; Branch Diagnosis code R73.03 QUEtiapine 2019-0 Yes Univers 300 mg 1-10 ity of tablet 00:00: [address] QUEtiapine 2019-0 Yes Univers 300 mg 1-10 ity of tablet 00:00: [address] QUEtiapine 2019-0 Yes Univers 300 mg 1-10 ity of tablet 00:00: [address] QUEtiapine 2019-0 Yes Univers 300 mg 1-10 ity of tablet 00:00: [address] QUEtiapine 2019-0 Yes Univers 300 mg 1-10 ity of tablet 00:00: [address] QUEtiapine 2019-0 Yes Univers 300 mg 1-10 ity of tablet 00:00: [address] QUEtiapine 2019-0 Yes Univers 300 mg 1-10 ity of tablet 00:00: [address] QUEtiapine 2019-0 Yes Univers 300 mg 1-10 ity of tablet 00:00: [address] QUEtiapine 2019-0 Yes Univers 300 mg 1-10 ity of tablet 00:00: [address] QUEtiapine 2019-0 Yes Univers 300 mg 1-10 ity of tablet 00:00: [address] QUEtiapine 2019-0 Yes Univers 300 mg 1-10 ity of tablet 00:00: [address] QUEtiapine 2019-0 Yes Univers 300 mg 1-10 ity of tablet 00:00: [address] QUEtiapine 2019-0 Yes Univers 300 mg 1-10 ity of tablet 00:00: [address] QUEtiapine 2019-0 Yes Univers 300 mg 1-10 ity of tablet 00:00: [address] QUEtiapine 2019-0 Yes Univers 300 mg 1-10 ity of tablet 00:00: [address] QUEtiapine 2019-0 Yes Univers 300 mg 1-10 ity of tablet 00:00: [address] QUEtiapine 2019-0 Yes Univers 300 mg 1-10 ity of tablet 00:00: [address] QUEtiapine 2019-0 Yes Univers 300 mg 1-10 ity of tablet 00:00: [address] QUEtiapine 2019-0 Yes Univers 300 mg 1-10 ity of tablet 00:00: [address] TIZANIDINE 2012-0 Yes Take by [facility] (ZANAFLEX 04:13: Medical ORAL) 45 Center methocarbam 2012-0 Yes 750mg Q.25D Take [address] [facility] ol 6-12 mg by [facility] (ROBAXIN) 04:13: mouth 4 Medic al 750 MG 45 (four) Center tablet times daily. carvedilol 2012-0 Yes 12.5mg Take 12.[address] [facility] (COREG) 6-12 mg by [facility] 12.5 MG 04:13: mouth 2 Medical tablet 45 (two) Center times daily with breakfast and dinner. clonazePAM 2012-0 Yes 1mg Take [address] [facility] [address] [facility] (KLONOPIN) 6-12 by mouth 2 [place] [facility] 1 MG tablet 04:13: (two) Medic al 45 times Center daily as needed. DULoxetine 2012-0 Yes 30mg QD Take [address] [facility] (CYMBALTA) 6-12 by [facility] 30 MG 04:13: daily. Medical capsule 45 Center clonazePAM 2012-0 Yes 1mg Take [address] [facility] [address] (KLONOPIN) 6-12 by mouth 2 [place] 1 MG tablet 04:13: (two) Medic al 45 times Center daily as needed. DULoxetine 2012-0 Yes 30mg QD Take [address] (CYMBALTA) 6-12 by [facility] 30 MG 04:13: daily. Medical capsule 45 Center TIZANIDINE 2012-0 Yes Take by [facility] 6-12 [facility] (ZANAFLEX 04:13: Medical ORAL) 45 Center methocarbam 2012-0 Yes 750mg Q.25D Take [address] [facility] ol 6-12 mg by [facility] (ROBAXIN) 04:13: mouth 4 Medic al 750 MG 45 (four) Center tablet times daily. carvedilol 2012-0 Yes 12.5mg Take 12.[address] [facility] (COREG) [...] Center times daily with breakfast and dinner. Vital Signs Vital Name Observation Time Observation Value Comments Source Systolic blood 2022-10-15 21:26:00 133 mm[Hg] Univer [facility] Diastolic blood 2022-10-15 21:26:00 73 mm[Hg] Unive [facility] Heart rate 2022-10-15 21:26:00 97 /min [facility] Body temperature 2022-10-15 21:26:00 37.28 Lynette [facility] Respiratory rate 2022-10-15 21:26:00 17 /min [facility] Body weight 2022-10-15 21:26:00 100.472 kg [facility] BMI 2022-10-15 21:26:00 38.02 kg/m2 [facility] Oxygen saturation in 2022-10-15 21:26:00 96 /min [facility] Arterial blood by [facility] Pulse oximetry Branch Systolic blood 2022-10-09 19:34:00 126 mm[facility]Hg[facility] 2022-10-09 19:34:00 84 mm[Hg] Unive [facility] Heart rate 2022-10-09 19:34:00 95 /min [facility]i ty of [facility] Body temperature 2022-10-09 19:34:00 37 Lynette [facility] ersity of [facility] Respiratory rate 2022-10-09 19:34:00 16 /min [facility] ersity of [facility] Body height 2022-10-09 19:34:00 162.6 cm Universi ty of [facility] Body weight 2022-10-09 19:34:00 99.139 kg Universi ty of [facility] BMI 2022-10-09 19:34:00 37.52 kg/m2 Universi ty [facility] Oxygen saturation in 2022-10-09 19:34:00 97 /min University of Arterial blood by [facility] Pulse oximetry Branch Systolic blood 2022-09-29 20:01:00 142 mm[Hg] Reema Seybold - pressure External Diastolic blood 2022-09-29 20:01:00 75 mm[Hg] Kelse y Seybold - pressure External Heart rate 2022-09-29 20:01:00 71 /min Reema Coleman eybold - External Body temperature 2022-09-29 20:01:00 36.56 Lynette Kaykay ey Seybold - External Respiratory rate 2022-09-29 20:01:00 14 /min Kaykay ey Seybold - External Body height 2022-09-29 20:01:00 162.6 cm Reema Coleman eybold - External Body weight 2022-09-29 20:01:00 102.967 kg Reema Coleman eybold - External BMI 2022-09-29 20:01:00 38.96 kg/m2 Reema Coleman eybold - External Oxygen saturation in 2022-09-29 20:01:00 99 /min Reema Seabhijitce - Arterial blood by External Pulse oximetry Systolic blood 2022-09-22 20:30:00 118 mm[Hg] Reema Seybold - pressure External Diastolic blood 2022-09-22 20:30:00 71 mm[Hg] Kelse y Seybold - pressure External Heart rate 2022-09-22 20:30:00 86 /min Reema S eybold - External Body temperature 2022-09-22 20:30:00 36.39 Lynette Kaykay ey Seybold - External Respiratory rate 2022-09-22 20:30:00 18 /min Kaykay ey Seybold - External Body height 2022-09-22 20:30:00 162.6 cm Reema Coleman eybold - External Body weight 2022-09-22 20:30:00 101.152 kg Reema Coleman eybold - External BMI 2022-09-22 20:30:00 38.28 kg/m2 Reema Coleman eybold - External Systolic blood 2022-08-29 20:07:00 96 mm[Hg] Reema Seybold - pressure External Diastolic blood 2022-08-29 20:07:00 54 mm[Hg] Zakse y Seybold - pressure External Heart rate 2022-08-29 20:07:00 86 /min Reema Coleman eybold - External Body temperature 2022-08-29 20:07:00 36.39 Lynette Kaykay saini Seybold - External Respiratory rate 2022-08-29 20:07:00 14 /min Kaykay saini Seybold - External Body height 2022-08-29 20:07:00 162.6 cm Reema Coleman eybold - External Body weight 2022-08-29 20:07:00 110.678 kg Reema Coleman eybold - External BMI 2022-08-29 20:07:00 41.88 kg/m2 Reema Coleman eybold - External Systolic blood 2022-08-26 17:01:00 118 mm[Hg] Univer sity of [facility] Diastolic blood 2022-08-26 17:01:00 84 mm[Hg] Unive rsity of pressure [facility] Heart rate 2022-08-26 17:01:00 74 /min [facility] Body weight 2022-08-26 17:01:00 95.709 kg [facility] BMI 2022-08-26 17:01:00 36.22 kg/m2 [facility] Systolic blood 2022-07-02 14:44:00 125 mm[Hg] Reema Seybold - pressure External Diastolic blood 2022-07-02 14:44:00 79 mm[Hg] Zakse y Seybold - pressure External Heart rate 2022-07-02 14:44:00 79 /min Reema S eybold - External Body temperature 2022-07-02 14:44:00 36.61 Lynette Kaykay ey Seybold - External Respiratory rate 2022-07-02 14:44:00 18 /min Kaykay ey Seybold - External Body height 2022-07-02 14:44:00 162.6 cm Reema S eybold - External Body weight 2022-07-02 14:44:00 102.694 kg Reema S eybold - External BMI 2022-07-02 14:44:00 38.86 kg/m2 Reema S eybold - External Systolic blood 2022-03-17 19:42:00 112 mm[Hg] Reema Seybold pressure Diastolic blood 2022-03-17 19:42:00 64 mm[Hg] Kelse [...] 38.62 kg/m2 Reema S eybold Systolic blood 2022-02-25 13:19:00 110 mm[Hg] Reema Seybold pressure Diastolic blood 2022-02-25 13:19:00 62 mm[Hg] Kelse [...] saturation in 2022-02-25 13:19:00 99 /min Reema [place] Arterial blood by Pulse oximetry Systolic blood 2022-02-12 18:51:00 114 mm[Hg] Reema Seybold pressure Diastolic blood 2022-02-12 18:51:00 66 mm[Hg] Kelse y Seybold pressure Heart rate 2022-02-12 18:51:00 76 /min Reema Coleman eybold Body temperature 2022-02-12 18:51:00 36 Lynette Kaykay ey Seybold Respiratory rate 2022-02-12 18:51:00 14 /min Kaykay ey Seybold Body height 2022-02-12 18:51:00 162.6 cm Reema sainibold Body weight 2022-02-12 18:51:00 100.699 kg Reema Coleman eybold BMI 2022-02-12 18:51:00 38.11 kg/m2 Reema Coleman eybold Systolic blood 2022-01-28 18:35:00 127 mm[Hg] Reema Seybold pressure Diastolic blood 2022-01-28 18:35:00 76 mm[Hg] Kelse y Seybold pressure Heart rate 2022-01-28 18:35:00 72 /min Reema Coleman eybold Body temperature 2022-01-28 18:35:00 36.61 Lynette Kaykay ey Seybold Respiratory rate 2022-01-28 18:35:00 14 /min Kaykay saini Seybold Body height 2022-01-28 18:35:00 162.6 cm Reema sainibold Body weight 2022-01-28 18:35:00 101.152 kg Reema Coleman eybold BMI 2022-01-28 18:35:00 38.28 kg/m2 Reema sainibold Procedures Procedure Date / Time Performed Performing Clinician Sour e POCT SARS-COV-2 2022-10-09 19:51:00 Aurora Avendaño [place] ANTIGEN (BINAX NOW) Medical Bran ch POCT MOLECULAR FLU 2022-10-09 19:44:00 Unknown, Attending [facility] REAGENT STRIP/BLOOD 2022-09-22 00:00:00 Outside, Reported Reema Seybold - GLUCOSE External POCT URINALYSIS 2022-08-26 00:00:[address] [facility] [place] [facility] REAGENT STRIP/BLOOD 2022-07-02 14:51:00 Outside, Reported Reema Cassidyold - GLUCOSE External Encounters Start End Encounter Admission Attending Care Care Encounter Source Date/Time Date/Time Type Type Clinicians Facility Department ID 2022-07-01 Outpatient [facility] [id number] [place] 06:14:10 [id number] [facility] 2022-01-10 Outpatient [facility] [id number] [place] 13:15:51 [id number] [facility] 2022-01-08 Outpatient [facility] [id number] [place] 12:03:37 [id number] [facility] 2021-08-11 Emergency [facility] [id number] Univers 14:12:35 [facility] 2023-01-12 2023-01-12 Outpatient ARUN MERCER [id number] Reema 14:15:00 14:15:00 Seybol d 2022-12-29 2022-12-29 Outpatient ANTHONYTomiREEMA [id number] Reema 14:00:00 14:00:00 JOHNNIE Seybol d 2022-10-20 2022-10-20 Outpatient RAMOSREEMA [id number] Reema 14:15:00 14:15:00 ISIS Seybol d 2022-10-20 2022-10-20 Outpatient REEMA RAMOS [id number] Reema 00:00:00 00:00:00 ISIS Seybol d 2022-10-20 2022-10-20 Outpatient RAMOSREEMA [id number] Reema 00:00:00 00:00:00 ISIS Seybol d 2022-10-18 2022-10-18 Telephone Lex Kline [facility] 1.2.840.114 [id number] Univers 00:00:00 00:00:00 [facility] 350.1.13.10 it y of [place] 4.2.7.2.686 Anton as TREE?BLEA [id number] [address] MEDICAL OFFICE BUILDING 2022-10-15 2022-10-15 Outpatient Jose Francisco KLINE III, [facility] [id number] [facility] 15:00:00 15:50:54 LEX keita of [facility] 2022-10-15 2022-10-15 Urgent Lex Kline [facility] 1.2.840.[id number] [facility] 15:00:00 15:50:54 Care Unknown, Attending HEALTH 350.1.13.10 ity of [place] 4.2.7.2.686 Anton as TREE?BLEA [id number] [address] MEDICAL OFFICE [facility] 2022-10-15 2022-10-15 Telephone Lex Kline [facility] 1.2.840.114 [id number] Univers 00:00:00 00:00:00 C HEALTH 350.1.13.10 it y of [place] 4.2.7.2.686 Anton as TREE?BLEA [id number] [address] OFFICE [facility] 2022-10-15 2022-10-15 Telephone Lex Kline [facility] 1.2.840.114 [id number] Univers 00:00:00 00:00:00 C HEALTH 350.1.13.10 it y of [place] 4.2.7.2.686 Anton as TREE?BLEA [id number] [address] OFFICE [facility] 2022-10-14 2022-10-14 Outpatient REEMA FOSTER [id number] Reema 00:00:00 00:00:00 FABIAN mejias 2022-10-14 2022-10-14 Outpatient REEMA FOSTER [id number] Reema 00:00:00 00:00:00 FABIAN mejias 2022-10-13 2022-10-13 Outpatient REEMA AZEVEDO [id number] Reema 00:00:00 00:00:00 JOHNNIE mejias 2022-10-10 2022-10-10 Telephone Sterling, [facility] 1.2.840.114 [id number] Univers 00:00:00 00:00:00 Ang Db HEALTH 350.1.13.10 it y of Urgent [facility] [place] 4.2.7.2.686 [place] TREE?BLEA [id number] [address] MEDICAL OFFICE [facility] 2022-10-09 2022-10-09 Outpatient R JAROCHO [facility] [id number] Univers 12:40:00 14:13:19 AURORA ittaylor of [facility] 2022-10-09 2022-10-09 Urgent Aurora Avendaño [facility] 1.2.840.114 [id number] Univers 12:40:00 14:13:19 Care Unknown, [facility] HEALTH 350.1.13.10 ity of [place] 4.2.7.2.686 Anton as TREE?BLEA [id number] [address] OFFICE [facility] 2022-10-09 2022-10-09 Telephone Provider, [facility] 1.2.840.114 [id number] Univers 00:00:00 00:00:00 Ang Db HEALTH 350.1.13.10 it y of Urgent Care [place] 4.2.7.2.686 [place] TREE?BLEA [id number] [address] OFFICE [facility] 2022-10-09 2022-10-09 [facility] 1.2.840.114 [id number] Univers 00:00:00 00:00:00 [facility] 350.1.13.10 it y of [place] 4.2.7.2.686 Anton as TREE?BLEA [id number] [address] 2022-10-07 2022-10-07 Outpatient REEMA AZEVEDO [id number] Reema 00:00:00 00:00:00 JOHNNIE Seybol d 2022-09-30 2022-09-30 Outpatient PREREEMA BLANCO [id number] Reema 00:00:00 00:00:00 JOHNNIE Seybol d 2022-09-29 2022-09-29 Outpatient REEMA AZEVEDO [id number] Reema 14:15:00 14:15:00 JOHNNIE Seybol d 2022-09-26 2022-09-26 Outpatient PREREEMA BLANCO [id number] Reema 14:15:00 14:15:00 JOHNNIE Seybol d 2022-09-26 2022-09-26 Outpatient REEMA AZEVEDO [id number] Reema 00:00:00 00:00:00 JOHNNIE Seybol d 2022-09-23 2022-09-23 Outpatient LAB90 REEMA BENAVIDEZ [id number] Reema 11:10:00 11:10:00 Seybol d 2022-09-22 2022-09-22 Outpatient ARUN MERCER REEAM BENAVIDEZ [id number] Reema 14:45:00 14:45:00 Seybol d 2022-09-22 2022-09-22 Outpatient REEMA AZEVEDO [id number] Reema 00:00:00 00:00:00 JOHNNIE Seybol d 2022-09-19 2022-09-19 Outpatient REEMA AZEVEDO [id number] Reema 15:15:00 15:15:00 JOHNNIE Seybol d 2022-09-15 2022-09-15 Outpatient REEMA AZEVEDO [id number] Reema 00:00:00 00:00:00 JOHNNIE Seybol d 2022-08-29 2022-08-29 Outpatient REEMA AZEVEDO [id number] Reema 14:15:00 14:15:00 JOHNNIE Seybol d 2022-08-28 2022-08-28 Outpatient REEMA FOSTER [id number] Reema 13:45:00 13:45:00 FABIAN Seybol d 2022-08-26 2022-08-26 Office Ryan [facility] 1.2.840.114 [id number] Univers 10:20:00 10:40:00 [facility] 350.1.13.10 [facility] [place] [facility] 4.2.7.2.686 [facility] [id number] [address] OFFICE BUILDING 2022-08-26 2022-08-26 Outpatient Jose Francisco DAVIS [facility] [id number] Univers 10:20:00 10:20:00 SUMMER keita [facility] 2022-08-20 2022-08-20 Outpatient REEMA AZEVEDO [id number] Reema 00:00:00 00:00:00 JOHNNIE Seybol d 2022 2022 Outpatient LAB90 REEMA BENAVIDEZ [id number] Reema 14:10:00 14:10:00 Seybol d 2022-08-07 2022-08-07 Outpatient ARUN MERCER REEMA BENAVIDEZ [id number] Reema 14:00:00 14:00:00 Seybol d 2022-08-01 2022-08-01 Outpatient PREZAS, REEMA BENAVIDEZ [id number] Reema 10:45:00 10:45:00 JOHNNIE Seybol d 2022-07-31 2022-07-31 Outpatient PREZAS, REEMA BENAVIDEZ [id number] Reema 00:00:00 00:00:00 JOHNNIE Seybol d 2022-07-25 2022-07-25 Outpatient PREZAS, REEMA BENAVIDEZ [id number] Reema 11:30:00 11:30:00 JOHNNIE Seybol d 2022-07-24 2022-07-24 Outpatient PREZAS, REEMA BENAVIDEZ [id number] Reema 00:00:00 00:00:00 JOHNNIE Seybol d 2022-07-14 2022-07-14 Outpatient ARUN MERCER REEMA BENAVIDEZ [id number] Reema 13:30:00 13:30:00 Seybol d 2022-07-08 2022-07-08 Outpatient ARUN MERCER REEMA BENAVIDEZ [id number] Reema 00:00:00 00:00:00 Seybol d 2022-07-04 2022-07-04 Outpatient PREZAS, REEMA BENAVIDEZ [id number] Reema 13:45:00 13:45:00 JOHNNIE Seybol d 2022-07-02 2022-07-02 Outpatient PREZAS, REEMA BENAVIDEZ [id number] Reema 10:45:00 10:45:00 JOHNNIE Seybol d 2022-07-02 2022-07-02 Outpatient ARUN MERCER REEMA BENAVIDEZ [id number] Reema 09:45:00 09:45:00 Seybol d 2022-07-01 2022-07-01 Outpatient PREZAS, REEMA BENAVIDEZ [id number] Reema 15:00:00 15:00:00 JOHNNIE Seybol d 2022-07-01 2022-07-01 Outpatient PREBELLA, REEMA BENAVIDEZ [id number] Reema 00:00:00 00:00:00 JOHNNIE Seybol d 2022-07-01 2022-07-01 Outpatient ARUN MERCER REEMA BENAVIDEZ [id number] Reema 00:00:00 00:00:00 Seybol d 2022-07-01 2022-07-01 Outpatient ARUN MERCER REEMA BENAVIDEZ [id number] Reema 00:00:00 00:00:00 Seybol d 2022-06-30 2022-06-30 Outpatient LAB47 REEMA BENAVIDEZ [id number] Reema 10:20:00 10:20:00 Seybol d 2022-06-30 2022-06-30 Outpatient REEMA TIPTON [id number] Reema 09:15:00 09:15:00 [place] Seybo ld 2022-06-24 2022-06-24 Office Neo Azevedo 1.2.840.114 [id number] Reema 14:45:00 15:15:00 Visit Johnnie Cavanaugh 350.1.13.13 Se ybold 1.2.7.2.686 [id number] 2022-06-24 2022-06-24 Outpatient ARUN MERCER REEMA BENAVIDEZ [id number] Reema 00:00:00 00:00:00 Seybol d 2022-06-23 2022-06-23 Outpatient REEMA AZEVEDO [id number] Reema 00:00:00 00:00:00 JOHNNIE Seybol d 2022-06-17 2022-06-17 Office Neo Azevedo 1.2.840.114 [id number] Reema 14:45:00 15:15:00 Visit Johnnie Cavanaugh 350.1.13.13 Se ybold 1.2.7.2.686 [id number] 2022-06-17 2022-06-17 Outpatient REEMA AZEVEDO [id number] Reema 00:00:00 00:00:00 JOHNNIE Seybol d 2022-06-13 2022-06-13 Outpatient REEMA FOSTER [id number] Reema 00:00:00 00:00:00 FABIAN Seybol d 2022-06-13 2022-06-13 Outpatient RUSLANARUN REEMA BENAVIDEZ [id number] Reema 00:00:00 00:00:00 Seybol d 2022-06-13 2022-06-13 Outpatient REEMA FOSTER [id number] Reema 00:00:00 00:00:00 FABIAN Seybol d 2022-06-12 2022-06-12 Outpatient ARUN MERCER REEMA BENAVIDEZ [id number] Reema 09:45:00 09:45:00 Seybol d 2022-06-10 2022-06-10 Outpatient REEMA FOSTER [id number] Reema 00:00:00 00:00:00 FABIAN Seybol d 2022-06-04 2022-06-04 Outpatient ARUN MERCER REEMA BENAVIDEZ [id number] Reema 00:00:00 00:00:00 Seybol d 2022-06-04 2022-06-04 Outpatient REEMA FOSTER [id number] Reema 00:00:00 00:00:00 FABIAN Seybol d 2022-06-02 2022-06-02 Outpatient REEMA FOSTER [id number] Reema 00:00:00 00:00:00 FABIAN Seybol d 2022-05-26 2022-05-26 Outpatient RACHELLEREEMABRADFORD REEMA BENAVIDEZ [id number] Reema 00:00:00 00:00:00 MD KYLAH Seybol d 2022-05-22 2022-05-22 Outpatient RUSLANARUN REEMA BENAVIDEZ [id number] Reema 00:00:00 00:00:00 Seybol d 2022-05-21 2022-05-21 Outpatient LAB90 REEMA BENAVIDEZ [id number] Reema 14:50:00 14:50:00 Seybol d 2022-05-19 2022-05-19 Outpatient REEMA FOSTER [id number] Reema 00:00:00 00:00:00 FABIAN Seybol d 2022-04-24 2022-04-24 Refyinka Lucas [facility] 1.2.840.114 [id number] Univers 00:00:00 00:00:00 [facility] 350.1.13.10 it y of [place] 4.2.7.2.686 Anton as TREE?BLEA [id number] Wi logan [address] OFFICE BUILDING 2022-04-23 2022-04-23 Outpatient REEMA FOSTER [id number] Reema 00:00:00 00:00:00 FABIAN mejias 2022-04-15 2022-04-15 Office Laurel HillNeo hernandez 1.2.840.114 [id number] Reema 13:30:00 14:00:00 Visit Fabian Cavanaugh 350.1.13.13 Se ybold Somogyi 1.2.7.2.686 [id number] 0 2022-04-09 2022-04-09 Office Arun Mercer 1.2.840.114 [id number] Reema 14:30:00 15:00:00 Visit Chery LARSON 350.1.13.13 Se ybold 1.2.7.2.686 [id number] 0 2022-04-01 2022-04-01 Outpatient REEMA FOSTER [id number] Reema 00:00:00 00:00:00 FABIAN mejias 2022-03-17 2022-03-17 Office Mahendra, [place] 1.2.840.114 [id number] Reema 14:45:00 15:00:00 Visit Fabian Cavanaugh 350.1.13.13 Se abhijitold Somogyi 1.2.7.2.686 [id number] 0 2022-02-26 2022-02-26 Telephone Prado, [facility] 1.2.840.[id number] [facility] 00:00:00 00:00:00 [facility] HEALTH 350.1.13.10 it y of [place] 4.2.7.2.686 Anton as TREE?BLEA [id number] [address] OFFICE [facility] 2022-02-25 2022-02-25 Outpatient LAB90 REEMA BENAVIDEZ [id number] Reema 09:10:00 09:10:00 Seybol magalie 2022-02-25 2022-02-25 Office MahendraNeo hernandez 1.2.840.114 [id number] Reema 08:30:00 08:45:00 Visit Fabian Mao 350.1.13.13 Se shan Luke 1.2.7.2.686 [id number] 2022-02-24 2022-02-24 Outpatient R LEIGH, CECILIA [facility] [id number] Univers 15:30:00 15:30:00 LEIGH CECILIA [facility] 2022-02-23 2022-02-23 [facility] 1.2.840.114 [id number] Univers 00:00:00 00:00:00 Pat [facility] 350.1.13.10 it y [place] 4.2.7.2.686 [facility] [id number] [place] [id number] OFFICE BUILDING 2022-02-21 2022-02-21 Outpatient REEMA FOSTER [id number] Reema 00:00:00 00:00:00 FABIAN mejias 2022-02-19 2022-02-19 [address] [facility] [id number] Univers 14:17:55 23:59:00 PAT [facility] 2022-02-19 2022-02-[address] [facility] 1.2.840.114 [id number] Univers 14:17:55 23:59:00 Encounter Pat [facility] 350.1.13.10 ity of [place] 4.2.7.2.686 [facility] [id number] [facility] [address] 2022-02-18 2022-02-18 [facility] [id number] Univers 13:30:00 13:30:[address] [facility] 2022-02-18 2022-02-18 [facility] [id number] Univers 13:30:00 13:30:[address] [facility] 2022-02-18 2022-02-18 [facility] [id number] Univers 13:30:00 13:30:[address] [facility] 2022-02-18 2022-02-18 Outpatient REEMA FOSTER [id number] Reema 00:00:00 00:00:00 FABIAN Seybol d 2022-02-13 2022-02-13 Outpatient REEMA FOSTER [id number] Reema 00:00:00 00:00:00 FABIAN Seybol d 2022-02-13 2022-02-13 Outpatient REEMA FOSTER [id number] Reema 00:00:00 00:00:00 FABIAN Seybol d 2022-02-12 2022-02-12 Outpatient LAB90 REEMA BENAVIDEZ [id number] Reema 14:45:00 14:45:00 Seybol d 2022-02-12 2022-02-12 Office Neo Foster 1.2.840.114 [id number] Reema 14:00:00 14:30:00 Visit Fabian Cavanaugh 350.1.13.13 Se shan Luke 1.2.7.2.686 [id number] 2022-02-11 2022-02-11 Outpatient REEMA FOSTER [id number] Reema 00:00:00 00:00:00 FABIAN Seybol d 2022-02-07 2022-02-07 Outpatient REEMA FOSTER [id number] Reema 00:00:00 00:00:00 FABIAN Seybol d 2022-01-29 2022-01-29 Outpatient REEMA FOSTER [id number] Reema 00:00:00 00:00:00 FABIAN Seybol d 2022-01-29 2022-01-29 Orders LINDA Jarvis 1.2.840.114 [id number] Univers 00:00:00 00:00:00 Only Pat MILENA 350.1.13.10 [facility] 4.2.7.2.686 Anton as [id number] [address] 2022-01-28 2022-01-28 Outpatient LAB90 REEMA BENAVIDEZ [id number] Reema 14:25:00 14:25:00 Seybol d 2022-01-28 2022-01-28 Office Neo FOSTER 1.2.840.114 [id number] Reema 13:30:00 13:30:00 Visit FABIAN Cavanaugh 350.1.13.13 Se shan 1.2.7.2.686 [id number] 2022-01-27 2022-01-27 Outpatient R KATTY [facility] [id number] Univers 13:00:00 13:00:00 LISSETTEKANU keita [facility] 2022-01-21 2022-01-21 Refill [facility] 1.2.840.114 [id number] Univers 00:00:00 00:00:00 Pat HEALTH 350.1.13.10 it y of [place] 4.2.7.2.686 [place] [id number] [facility] [address] OFFICE BUILDING 2022-01-10 2022-01-10 Telephone [facility] 1.2.840.114 [id number] Univers 00:00:00 00:00:00 Wondiful A HEALTH 350.1.13.10 ity of [facility] 4.2.7.2.686 Anton as TREE?BLEA [phone] Wi logan [place] 044 [facility] OFFICE BUILDING 2022-01-09 2022-01-09 Letter LINDA Campos 1.2.840.114 [id number] Univers 00:00:00 00:00:00 (Out) Kendra Isaac ABBOTT 350.1.13.10 it y of HOSPITAL 4.2.7.2.686 Anton as [id number] [place] [address] [address] 2022-01-08 2022-01-08 Outpatient R NABOR [facility] [id number] Univers 12:40:00 12:48:05 KAREN ity [facility] 2022-01-08 2022-01-08 Urgent Karen Tomlin [facility] 1.2.840.114 [id number] Univers 12:40:00 12:48:05 Care Luis, Rania HEALTH 350.1.13.10 ity of [facility] 4.2.7.2.686 Anton as TREE?BLEA [id number] Wi logan CARVER [address] MEDICAL OFFICE BUILDING 2022-01-02 2022-01-02 Office [facility] 1.2.840.114 [id number] Univers 13:00:00 14:01:36 [facility] 350.1.13.10 it y of [place] 4.2.7.2.686 [place] [id number] [facility] [address] OFFICE BUILDING 2022-01-02 2022-01-[address] [facility] [id number] Univers 13:00:00 14:01:36 PAT ity [facility] 2022-01-02 2022-01-02 [address] [facility] [id number] Univers 13:00:00 14:01:36 PAT ity [facility] 2022-01-02 2022-01-02 [address] [facility] [id number] Univers 13:00:00 13:00[facility] 2022-01-02 [address] [facility] [id number] Univers 13:00:00 13:00:00 PAT [facility] 2022-01-02 2022-01-02 Orders Doctor LINDA 1.2.840.114 [id number] Univers 00:00:00 00:00:00 Only Unassigned, MILENA 350.1.13.[address] [place] [facility] 4.2.7.2.686 Anton as [id number] [place] [address] [address] 2021-11-09 2021-11-09 Urgent [facility] 1.2.840.114 [id number] Univers 17:40:00 18:00:00 Care Karen HEALTH 350.1.13.10 it y of [place] 4.2.7.2.686 Anton as TREE?BLEA [id number] Wi logan CAR[address] MEDICAL OFFICE BUILDING 2021-11-09 2021-11-09 Outpatient R NABOR [facility] [id number] Univers 17:40:00 17:40:00 KAREN [facility] 2021-10-23 2021-10-23 Outpatient R LANCE [facility] [id number] Univers 12:45:00 13:03:37 WENTONG ity [facility] 2021-10-23 2021-10-23 [employer], Ang - Db [facility] 1.2.840.1 14 [id number] Univers 12:45:00 13:00:00 Visit Arthur Lucas [facility] 350.1.13.10 ity of [place] 4.2.7.2.686 Anton as TREE?BLEA [id number] Wi dical MILINDEY 353 [facility] OFFICE [facility] 2021-10-23 2021-10-23 Outpatient R LANCE [facility] [id number] Univers 12:00:00 12:46:[address] [facility] 2021-10-23 2021-10-23 Office [facility] 1.2.840.114 [id number] Univers 12:00:00 12:46:03 Visit [facility] 350.1.13.10 it y of [place] 4.2.7.2.686 Anton as TREE?BLEA [id number] Wi dical MILINDEY 220 [facility] OFFICE [facility] 2021-10-11 2021-10-11 Telephone [facility] 1.2.840.114 [id number] Univers 00:00:00 00:00:00 Wondiful A HEALTH 350.1.13.10 ity of [place] 4.2.7.2.686 Anton as TREE?BLEA [id number] Wi dical KNEY 044 [facility] OFFICE [facility] 2021-10-07 2021-10-07 Telephone [facility] 1.2.840.114 [id number] Univers 00:00:00 00:00:00 Wondiful A HEALTH 350.1.13.10 ity of [place] 4.2.7.2.686 Anton as TREE?BLEA [phone] Wi dical KNEY [address] MEDICAL OFFICE [facility] 2021-10-04 2021-10-04 Urgent Aurora Avendaño [facility] 1.2.840.114 [id number] Univers 17:00:00 17:20:00 Care Steve Singh HEALTH 350.1.13.10 ity of [place] 4.2.7.2.686 Anton as TREE?BLEA [id number] Wi dical KNEY [address] MEDICAL OFFICE BUILDING 2021-10-04 2021-10-04 Outpatient R SMAANTHA [facility] [id number] Univers 17:00:00 17:00:00 STEVE chloetaylor arsen fabiana [facility] 2021-08-27 2021-08-27 Telephone [facility] 1.2.840.114 [id number] Univers 00:00:00 00:00:00 Wondiful A HEALTH 350.1.13.10 ity of [place] 4.2.7.2.686 Anton as TREE?BLEA [phone] Wi logan CARVER 044 [facility] OFFICE [facility] 2021-08-16 2021-08-16 Refyinka [facility] 1.2.840.114 [id number] Univers 00:00:00 00:00:00 Wentong HEALTH 350.1.13.10 it y of [place] 4.2.7.2.686 Anton as TREE?BLEA [phone] Wi logan CARVER 220 [facility] OFFICE [facility] 2021-08-14 2021-08-14 Rodrigo [facility] 1.2.840.114 [id number] Univers 00:00:00 00:00:00 [place] HEALTH 350.1.13.10 it y of [place] 4.2.7.2.686 Anton as TREE?BLEA [phone] Wi logan CARVER 220 [facility] OFFICE [facility] 2021-08-13 2021-08-13 Outpatient R [facility] [id number] Univers 08:58:00 11:16:00 SHEHARYAR ity of [facility] 2021-08-13 2021-08-13 Hospital [facility] 1.2.840.114 [id number] Univers 08:58:00 11:16:00 Encounter [facility] 350.1.13.10 [place] [phone] [address] ([facility]) 2021-08-13 2021-08-13 Surgery [facility] 1.2.840.114 [id number] Univers 10:30:00 11:04:00 [facility] SPECIALTY 350.1.13.10 [place] [phone] Me dicdenise ANDRES 020 [facility] 2021-08-13 2021-08-13 Orders Doctor LINDA 1.2.840.114 [id number] Univers 00:00:00 00:00:00 Only Unassigned, MILENA 350.1.13.[address] [facility] 4.2.7.2.686 Anton as [phone] [address] 2021-08-06 2021-08-06 Outpatient R VISHNU [facility] [id number] Univers 14:20:00 14:20:00 JACQUE keita [facility] 2021-08-01 2021-08-01 Telephone Pearl [facility] 1.2.840.114 [id number] Univers 00:00:00 00:00:00 Wondiful A Health 350.1.13.10 ity of [place] 4.2.7.2.686 Anton as Tree?Blea [phone] Wi sophiedenise carver [address] [facility] 2021-07-30 2021-07-30 Laboratory Only, Ang Db Test [facility] 1.2.8 40.114 [id number] Univers 16:13:20 16:28:20 Only Samantha [facility] 350.1.13.10 ity of [place] 4.2.7.2.686 Anton as Tree?Blea [phone] Wi dicdenise carver [address] [facility] 2021-07-30 2021-07-30 Outpatient R SAMANTHA [facility] [id number] Univers 16:15:00 16:15:00 STEVE ity o f [facility] 2021-07-17 2021-07-17 [employer] Lab, Ang - Db [facility] 1.2.840.1 [id number] Univers 09:28:13 09:43:13 Visit [place] ak[place] [facility] 350.1.13.1 0 ity of [place] 4.2.7.2.686 Anton as Tree?Blea [phone] Wi dical milindparveen [address] [facility] 2021-07-17 2021-07-17 Outpatient R [facility] [id number] Univers 09:30:00 09:30:00 ity of [facility] 2021-07-16 2021-07-16 Office [facility] 1.2.840.114 [id number] Univers 09:34:08 10:31:44 Visit Wondiful [facility] 350.1.13.10 ity of [place] 4.2.7.2.686 Anton as Tree?Blea [phone] Wi dicdenise acrver [address] [facility] 2021-07-16 2021-07-16 Outpatient R PEARL [facility] [id number] Univers 09:30:00 09:30:00 WONDIFUL ity o f [facility] 2021-07-11 2021-07-11 Refill Samantha [facility] 1.2.840.114 [id number] Univers 00:00:00 00:00:00 [facility] 350.1.13.10 i ty of [place] 4.2.7.2.686 Anton as Professio [phone] Wi logan scales [address] [place] [address] Office [facility] 2021-07-03 2021-07-03 Office [facility] 1.2.840.114 [id number] Univers 15:40:46 16:47:20 Visit [employer] 350.1.13.10 it y of [place] 4.2.7.2.686 Anton as Tree?Blea [phone] Wi logan carver 220 [facility] Building 2021-07-03 2021-07-03 Outpatient R LANCE [facility] [id number] Univers 15:30:00 15:30:00 WENTONG ity of [facility] 2021-06-25 2021-06-25 Telephone [facility] [id number] Univers 00:00:00 00:00:00 [facility] 350.1.13.10 it y of [place] 4.2.7.2.686 Anton as Tree?Blea [phone] Wi logan carver [address] 2021-06-20 2021-06-20 Telephone [facility] 1.2.812.281 [id number] 8550 Univers 00:00:00 00:00:00 [facility] 350.1.13.10 it y of [place] 4.2.7.2.686 Anton as Tree?Blea [phone] Wi logan carver [address] 2021-06-14 2021-06-14 LINDA Edmond 1.2.840.114 [id number] Univers 00:00:00 00:00:00 (Out) Kendra Gray MILENA 350.1.13.10 it y of HOSPITAL 4.2.7.2.686 Anton as [phone] [address] 2021-06-14 2021-06-14 Letter LINDA Campos 1.2.840.114 [id number] Univers 00:00:00 00:00:00 (Out) Kendra ABBOTT 350.1.13.10 it y of HOSPITAL 4.2.7.2.686 Anton as [phone] [address] 2021-06-13 2021-06-13 Laboratory Only, Ang Db Test [facility] 1.2.8 40.114 [id number] Univers 13:56:12 14:06:12 Only Nabor Karen Epoxy 350.1.13.10 ity of [place] 4.2.7.2.686 Anton as Tree?Blea [phone] [facility] [address] [facility] 2021-06-13 2021-06-13 Outpatient R NABOR [facility] [id number] Univers 14:00:00 14:00:00 KAREN ity of [facility] 2021-06-12 2021-06-12 Office Sury MAGERARDO 1.2.840.114 [id number] Univers 10:04:18 10:34:18 Visit Marizol SPECIALTY 350.1.13.10 ity of [place] [phone] Wi sophiedenise ANDRES 072 [facility] 2021-06-12 2021-06-12 Office Sury MAGERARDO 1.2.840.114 [id number] Univers 10:04:18 10:34:18 Visit Marizol SPECIALTY 350.1.13.10 ity of [place] [phone] Wi logan ANDRES [address] [facility] 2021-06-12 2021-06-12 Outpatient R SURY [facility] [id number] Univers 10:00:00 10:00:00 MARIZOL ity of [facility] 2021-06-12 2021-06-12 Orders Doctor MCKEON 1.2.840.114 [id number] Univers 00:00:00 00:00:00 Only Unassigned, MILENA 350.1.13.[address] [facility] 4.2.7.2.686 Anton as [phone] [facility] [address] 2021-06-12 2021-06-12 Orders Doctor LINDA 1.2.840.114 [id number] Univers 00:00:00 00:00:00 Only Unassigned, MILENA 350.1.13.[address] [facility] 4.2.7.2.686 Anton as [phone] [facility] [address] 2021-05-30 2021-05-30 Letter Danii Estrada 1.2.840.114 [id number] Univers 00:00:00 00:00:00 (Out) MILENA 350.1.13.10 it y of HOSPITAL 4.2.7.2.686 Anton as [phone] [facility] [address] 2021-05-28 2021-05-28 Outpatient Jose Francisco TOMLIN [facility] [id number] Univers 18:40:00 18:40:00 KAREN ity [facility] 2021-05-17 2021-05-17 Rodrigo [facility]AC[facility] 1.2.840.114 [id number] Univers 00:00:00 00:00:00 Wondiful A Health 350.1.13.10 ity of [place] 4.2.7.2.686 Anton as Profdiana [phone] Wi sophiedenise scales [address] One 2021-05-16 2021-05-16 Rodrigo [facility]AC[facility] 1.2.840.114 [id number] 686 Univers 00:00:00 00:00:00 Wondiful A Health 350.1.13.10 ity of [place] 4.2.7.2.686 Anton as Professio [phone] [address] One 2021-05-06 2021-05-06 Telephone [facility] 1.2.840.114 [id number] Univers 00:00:00 00:00:00 Steve [place] 350.1.13.10 it[place] of [place] Profess[place] [phone] [address] 2021-05-03 2021-05-03 [facility] 1.2.745.975 [id number] 0451 Univers 14:30:00 23:59:00 Encounter Steve [place] 350.1.13.10 ity of [place].2.7.2.[place] [phone] [address] 2021-05-03 2021-05-03 Outpatient R [facility] [id number] Univers 00:00:00 00:00:00 STEVE ity o f [facility] 2021-05-02 2021-05-02 [facility] 1.2.840.114 [id number] Univers 00:00:00 00:00:00 Steve Health 350.1.13.10 i ty of [place] 4.2.7.2.686 Anton as Professio [phone] [address] One 2021-05-02 2021-05-02 [facility] 1.2.840.114 [id number] Univers 00:00:00 00:00:00 Steveshivani [place] 350.1.13.10 ity of [place]2.7.2.[place] Profess[place] [phone] Wi dic[address] 2021-04-25 2021-04-25 [facility] 1.2.840.114 [id number] Univers 00:00:00 00:00:00 Steve Health 350.1.13.10 i ty of [place] 4.2.7.2.686 Anton as Professio [phone] [facility] 044 [facility] 2021-04-24 2021-04-24 [employer] 2, Adc Lab [facility] 1.2.840.114 [id number] Univers 13:45:23 14:00:23 Visit Steve Singh 350.1.13.10 ity of [place] [phone] [facility] 353 [facility] 2021-04-24 2021-04-24 Office Samantha, [facility] 1.2.840.[id number] [facility] 12:52:06 13:39:19 Visit Steve Cheek 350.1.13.10 ity of [place].2.7.2.[place] [phone] [facility] 044 [facility] 2021-04-24 2021-04-24 Outpatient R [facility] [id number] Univers 13:00:00 13:00:00 STEVE coronataylor o f [facility] 2021-04-11 2021-04-11 Refyinka Kang [facility] 1.2.840.114 [id number] Univers 00:00:00 00:00:00 Wondiful A Health 350.1.13.10 ity of [place] 4.2.7.2.686 Anton as Professio [phone] [address] 2021-04-04 2021-04-04 Office [facility] 1.2.840.114 [id number] Univers 13:07:38 13:40:24 Visit Pat Health 350.1.13.10 it y of [place]2.7.2.[place] [phone] [facility] [address] 2021-04-04 2021-04-04 [facility] [id number] Univers 13:00:00 13:00:00 PAT ity of [facility] 2021-03-28 2021-03-28 Telephone LINDA Armstrong 1.2.252.175 [id number] Univers 00:00:00 00:00:00 Elneza A MILENA 350.1.13.10 i ty of HOSPITAL 4.2.7.2.686 Anton as [phone] [facility] [address] 2021-03-20 2021-03-20 Office [facility]AC[facility] 1.2.840.114 [id number] Univers 14:56:49 15:47:12 Visit Arthur [place] 350.1.13.10 i [place] of [place].2.7.2.[place] [phone] [facility] 220 [facility] 2021-03-20 2021-03-20 Outpatient R LANCE [facility] [id number] Univers 15:00:00 15:00:00 WENTONG ity [facility] 2021-03-20 2021-03-20 Orders Doctor LINDA 1.2.840.114 [id number] Univers 00:00:00 00:00:00 Only Unassigned, MILENA 350.1.13.[address] [facility] 4.2.7.2.686 Anton as [phone] [facility] [address] 2021-03-04 2021-03-04 Telephone [facility] 1.2.604.004 [id number] 4597 Univers 00:00:00 00:00:00 Esther A Health 350.1.13.10 i ty of [place] 4.2.7.2.686 Anton as Professio [phone] [facility] 044 [facility] 2021-02-19 2021-02-19 Rodrigo Kang [facility] 1.2.840.114 [id number] 778 Univers 00:00:00 00:00:00 Wondiful A Health 350.1.13.10 ity of [place] 4.2.7.2.686 Anton as Professio [phone] [facility] 044 [facility] 2021-02-19 2021-02-19 Orders Doctor LINDA 1.2.840.114 [id number] Univers 00:00:00 00:00:00 Only Unassigned, MILENA 350.1.13.[address] [facility] 4.2.7.2.686 Anton as [phone] [address] 2021-02-18 2021-02-18 Rodrigo Kang, [facility] 1.2.840.114 [id number] Univers 00:00:00 00:00:00 Wondiful A Health 350.1.13.10 ity of [place] 4.2.7.2.686 Anton as Professio [phone] Wi dical nal [address] One 2021-02-13 2021-02-13 [employer]structor Debbie, Tyson Lab Main [facility] 1.2.8 40.114 [id number] Univers 12:06:05 12:21:05 Visit Steve Singh 350.1.13.10 ity of [place].2.[place] [phone] Wi dical nal 353 [facility] 2021-02-13 2021-02-13 Outpatient Jose [facility] [id number] Univers 11:00:00 11:50:39 STEVE ity o f [facility] 2021-02-13 2021-02-13 [facility] 1.2.840.114 [id number] Univers 10:59:05 11:50:39 Visit Steve Cheek 350.1.13.10 ity of [place]2.[place].2.[place] [phone] Wi dical nal 044 [facility] 2021-02-13 2021-02-13 Outpatient Jose Francisco [facility] [id number] Univers 11:00:00 11:00:00 STEVE ity o f [facility] 2021-02-13 2021-02-13 [facility] [id number] Univers 11:00:00 11:00:00 STEVE ity o f [facility] 2021-02-13 2021-02-13 [facility] [id number] Univers 11:00:00 11:00:00 STEVE ity o f [facility] 2021-02-11 2021-02-11 Outpatient Jos eFrancisco [facility] [id number] Univers 13:30:00 13:30:00 STEVE ity o f [facility] 2021-02-08 2021-02-08 Telephone [facility]AC[facility] 1.2.840.114 [id number] Univers 00:00:00 00:00:00 Chrissy MULTISPEC 350.1.13.10 ity of [place]2.7.2.[place] C[place] [phone] [address] [facility] 2021-02-07 2021-02-07 Outpatient R SAMANTHA [facility] [id number] [facility] 13:30:00 13:30:00 STEVE chloetaylor jung [facility] 2021-02-07 2021-02-07 Emergency [facility] [id number] [place] [address] 00:00:00 00:00:[address] 2021-02-07 2021-02-07 Telephone [facility] 1.2.701.281 [id number] 3094 00:00:00 00:00:00 Esther A Health 350.1.13.10 [place] 4.2.7.2.686 Professio [phone] nal [facility] Office [facility] One 2021-02-07 2021-02-07 Telephone [facility] 1.2.359.299 [id number] 3094 Univers 00:00:00 00:00:00 Esther A Health 350.1.13.10 i ty of [place] 4.2.7.2.686 Anton as Professio [phone] Wi dic[address] Office Building One 2021-02-06 2021-02-06 Telephone [facility] 1.2.382.358 [id number] 8777 Univers 00:00:00 00:00:00 Esther A Health 350.1.13.10 i ty of [place] 4.2.7.2.686 Anton as Professio [phone] Wi dic[address] Office Building One 2021-02-01 2021-02-01 Telephone [facility]AC[facility] 1.2.840.114 83 [id number] 00:00:00 00:00:00 Chrissy MULTISPEC 350.1.13.10 Radha IALTY 4.2.7.2.686 CENTER [phone] AND P[facility] 2021-02-01 2021-02-01 Transition Sommer Conway 1.2.840.114 [id number] 00:00:00 00:00:00 of Care Heather Juan 350.1.13.10 [place] 4.2.7.2.686 [id number] 403 2021-02-01 2021-02-01 Telephone Gordon [facility] 1.2.840.[id number] [facility] 00:00:00 00:00:00 Chrissy MULTISPEC 350.1.13.10 ity of [place].2.7.2.[place] [phone] [facility] AND PONCE [address] [facility] 2021-02-01 2021-02-01 Transition Sommer Conway 1.2.840.114 83 [id number] Univers 00:00:00 00:00:00 of Care Heather Juan 350.1.13.10 i ty of [place] 4.2.7.2.[place] [phone] [facility] [address] 2021-01-29 2021-01-31 [facility] Arcenio Hand 1.2.840.1 14 [id number] 16:44:00 17:15:00 Encounter Huy Barrera 350.1.13. 10 [facility] 4.2.7.2.686 [phone] 4 2021-01-29 2021-01-31 [facility] Arcenio Hand 1.2.840.[id number] [facility] 16:44:00 17:15:00 Encounter Huy Barrera 350.1.13. 10 ity of [facility] 4.2.7.2.686 [place] [phone] [facility] [address] 2021-01-29 2021-01-29 Office Samantha [facility] 1.2.840.114 [id number] 15:27:18 16:23:45 Visit [facility] [address] 350.1.13.10 [place] 4.2.7.2.686 Professio [phone] [place] [address] Office [facility] One 2021-01-29 2021-01-29 Office [facility] 1.2.840.114 [id number] Univers 15:27:18 16:23:45 Visit Steve Health 350.1.13.10 i ty of [place] 4.2.7.2.686 Anton as Professio [phone] [address] Office [facility] One 2021-01-29 2021-01-29 Outpatient R SAMANTHA [facility] [id number] Univers 15:30:00 15:30:00 STEVE ity o f [facility] 2021-01-23 2021-01-23 [facility]phone [facility] 1.2.303.185 [id number] Univers 00:00:00 00:00:00 Esther A Health 350.1.13.10 i ty of [place] 4.2.7.2.686 Anton as Professio [phone] [address] Office [facility] 2021-01-22 2021-01-22 Telephone [facility] 1.2.407.618 [id number] 0189 Univers 00:00:00 00:00:00 Esther A Health 350.1.13.10 i ty of [place] 4.2.7.2.686 Anton as Professio [phone] [address] Office [facility] 2021-01-15 2021-01-15 Telephone SOFYA Jarvis 1.2.840.11 [id number] Univers 00:00:00 00:00:00 Pat Y HEALTH 350.1.13.10 i ty of CLINICS [place]2.[place].2.[place] [phone] [address] 2021-01-10 2021-01-10 Office [facility] 1.2.840.114 83 [id number] Univers 16:04:28 17:06:38 Visit Pat Health 350.1.13.10 it y of [place].2.[place] [phone] [address] Office Building 2021-01-10 2021-01-10 [address] [facility] [id number] Univers 16:20:00 16:20:00 PAT ity [facility] 2021-01-10 2021-01-10 Telephone [facility] 1.2.840.114 [id number] Univers 00:00:00 00:00:00 Pat Health 350.1.13.10 it y [place].2.[place] [phone] [address] Office Building 2021-01-04 2021-01-04 [facility] 1.2.840.114 83 [id number] Univers 00:00:00 00:00:00 Pat Health 350.1.13.10 it y of [place]2.7.2.[place] [phone] [address] Office Building 2021-01-04 2021-01-04 [facility] 1.2.840.114 83 [id number] Univers 00:00:00 00:00:00 Pat Health 350.1.13.10 it y [place].2.[place] [phone] [address] Office Building 2020-12-27 2020-12-[address] [facility] 1.2.840.114 [id number] Univers 11:09:33 23:59:00 Encounter Pat Health 350.1.13.10 ity of [place]2.7.2.[place] [phone] [address] Office Building 2020-12-27 2020-12-27 Office [facility] 1.2.840.114 [id number] Univers 11:36:00 12:29:33 Visit Pat Health 350.1.13.10 it y of [place]7.2.[place] [phone] [address] Office Building 2020-12-27 2020-12-[address] [facility] [id number] Univers 11:40:00 11:40:00 PAT ity [facility] 2020-12-27 2020-12-27 Orders Doctor LINDA 1.2.840.114 [id number] Univers 00:00:00 00:00:00 Only Unassigned, MILENA 350.1.13.[address] [facility] 4.2.7.2.686 Anton as [phone] [facility] [address] 2020-12-27 2020-12-27 Letter Doctor LINDA 1.2.840.114 [id number] Univers 00:00:00 00:00:00 (Out) Unassigned, MILENA 350.1.13.[address] [facility] 4.2.7.2.686 Anton as [phone] [facility] [address] 2020-11-26 2020-11-26 Telephone Jarvis, [facility] 1.2.840.11 [id number] Univers 00:00:00 00:00:00 Pat Y HEALTH 350.1.13.10 i ty of CLINICS 4[place]2.7.2.[place] [phone] [address] 2020-11-22 2020-11-22 Office Jarvis, [facility] 1.2.840.114 [id number] Univers 11:35:21 12:51:52 Visit Pat Health 350.1.13.10 it y of [place]2.[place].2.[place] [phone] [address] Office Building 2020-11-22 2020-11-22 [facility] [id number] Univers 11:40:00 11:40:00 PAT ity of [facility] 2020-10-02 2020-10-02 Telephone Jarvis, [facility] 1.2.840.11 [id number] Univers 00:00:00 00:00:00 Pat Y HEALTH 350.1.13.10 i ty of CLINICS 4[place]2.[place].2.[place] [phone] [address] 2020-10-02 2020-10-02 Telephone [facility] 1.2.544.390 [id number] Univers 00:00:00 00:00:00 Esther Cheek 350.1.13.10 ity of [place] 4.2.7.2.[place] Profess[place] [phone] [facility] [address] [facility] 2020-09-25 2020-09-25 Refyinka Jarvis, [facility] 1.2.840.114 [id number] Univers 00:00:00 00:00:00 Pat Y HEALTH 350.1.13.10 i ty of CLINICS 4.2.7.2.[place] [id number] [facility] [address] 2020-09-21 2020-09-21 [facility] 1.2.840.114 [id number] Univers 00:00:00 00:00:00 Pat Health 350.1.13.10 it y of [place] 4.2.7.2.686 [place] [phone] [facility] [address] [place] [address] Office Building 2020-09-12 2020-09-12 Orders Doctor LINDA 1.2.840.114 [id number] Univers 00:00:00 00:00:00 Only Unassigned, MILENA 350.1.13.[address] [facility] 4.2.7.2.686 Anton as [phone] [facility] [address] 2020-09-10 2020-09-10 Viola Kang [facility] 1.2.840.114 [id number] Univers 00:00:00 00:00:00 Wondiful A Health 350.1.13.10 ity of [place] 4.2.7.2.686 Anton as Professio [phone] [address] Office Building One 2020-09-08 2020-09-08 Refyinka Kang [facility] 1.2.840.114 [id number] Univers 00:00:00 00:00:00 Wondiful A Health 350.1.13.10 ity of [place] 4.2.7.2.686 Anton as Professio [phone] [address] Office Building One 2020-09-05 2020-09-05 Case Pearl [facility] 1.2.840.114 [id number] Univers 00:00:00 00:00:00 Management Wondiful A Health 350.1.13.10 ity of [place] 4.2.7.2.686 Anton as Professio [phone] Wi dical nal [address] Office [facility] One 2020-09-03 2020-09-03 Telephone [facility] ..840.114 [id number] [id number] Univers 00:00:00 00:00:00 Wondiful A Health 350.1.13.10 ity of [place] 4.2.7.2.686 Anton as Professio [phone] Wi dical nal [address] Office [facility] One 2020-08-29 2020-08-29 Telephone [facility] 1.840.[id number] 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 [facility] 1..840.114 [id number] Univers 09:26:46 09:41:46 Visit Esther Brar [place] 350.1.13.10 ity of [place] 4.2.7.2.[place] [phone] Wi sophieal nal 353 [facility] 2020-08-28 2020-08-28 Outpatient R MAYKEL [facility] [id number] Univers 09:15:00 09:15:00 ESTHER ity of [facility] 2020-08-27 2020-08-27 Telephone [facility] ..766.097 [id number] Univers 00:00:00 00:00:00 Esther A Health 350.1.13.10 i ty of [place] 4.2.7.2.686 Anton as Professio [phone] Wi dical nal [address] Office [facility] One 2020-08-24 2020-08-24 Telemedici [facility] 1..840.[id number] [facility] 16:20:19 17:02:34 ne Visit Wondiful A Health 350.1.13.10 ity of [place] 4.2.7.2.686 Anton as Professio [phone] [address] One 2020-08-24 2020-08-24 Outpatient R PEARL, [facility] [id number] Univers 16:15:00 16:15:00 WONDIFUL ity o f [facility] 2020-08-09 2020-08-09 Outpatient R SIMONA, [facility] [id number] Univers 14:00:00 14:00:00 PAT [facility] 2020-08-03 2020-08-03 Outpatient R KAREY, [facility] [id number] Univers 10:30:00 10:30:00 AGUSTÍN [facility] 2020-07-20 2020-07-20 [facility] 1.2.840.114 [id number] Univers 00:00:00 00:00:00 Pat Y HEALTH 350.1.13.10 i ty of CLINICS [place].2.[place] [phone] [address] 2020-06-19 2020-06-19 [facility] 1.2.840.114 [id number] Univers 00:00:00 00:00:00 Pat Y HEALTH 350.1.13.10 i ty of CLIN[place] 4[place]2.7.2.[place] [phone] [address] 2020-06-14 2020-06-14 Outpatient R PEARL, [facility] [id number] Univers 08:45:00 08:45:00 WONDIFUL ity o f [facility] 2020-06-14 2020-06-14 Viola [facility] 1.2.283.001 [id number] Univers 00:00:00 00:00:00 Esther A Health 350.1.13.10 i ty of [place] 4.2.7.2.686 Anton as Professio [phone] [address] 2020-06-12 2020-06-12 Refill [facility] 1.2.840.114 [id number] Univers 00:00:00 00:00:00 Esther A Health 350.1.13.10 i ty of [place] 4.2.7.2.686 Anton as Professio [phone] [address] Office [facility] 2020-06-12 2020-06-12 Refyinka Pearl, [facility] 1.2.840.114 [id number] Univers 00:00:00 00:00:00 Wondiful A Health 350.1.13.10 ity of [place] 4.2.7.2.686 Anton as Professio [phone] [address] Office [facility] 2020-06-11 2020-06-11 Urgent Provider, [facility] 1.2.840.114 [id number] Univers 14:39:50 14:59:50 Care Anene, Lissette Health 350.1.13.10 ity of [place] 4.2.7.2.686 Anton as Professio [phone] [address] Office [facility] 2020-06-11 2020-06-11 Outpatient R [facility] [id number] Univers 14:20:00 14:20:00 ity of [facility] 2020-05-23 2020-05-23 Refyinka Brar, [facility] 1.2.840.114 [id number] Univers 00:00:00 00:00:00 Esther A Health 350.1.13.10 i ty of [place] 4.2.7.2.686 Anton as Professio [phone] [address] Office [facility] 2020-05-22 2020-05-22 Refill Simona, [facility] 1.2.840.114 [id number] Univers 00:00:00 00:00:00 Pat Health 350.1.13.10 it y of [place] [phone] [address] Office [facility] 2020-05-21 2020-05-21 Telephone Milmay, [facility] 1.2.840.114 [id number] Univers 00:00:00 00:00:00 [facility] [id number] [id number] [phone] [address] Office [facility] 2020-05-18 2020-05-18 Telephone [facility] [id number] Univers 00:00:00 00:00:00 [facility] [id number] [id number] [phone] [address] Office Building 2020-05-15 2020-05-15 Telephone Simona, [facility] 1.2.840.11 [id number] Univers 00:00:00 00:00:00 Pat [facility] [id number] i [id number] [id number] [address] 2020-05-10 2020-05-10 Office [facility] [id number] Univers 13:51:36 15:16:46 Visit [facility] 350.1.13.10 [id number] [phone] [address] Office [facility] 2020-05-10 2020-05-10 Outpatient R SIMONA, [facility] [id number] Univers 14:00:00 14:00:00 PAT [facility] 2020-05-09 2020-05-09 Telephone Simona [facility] 1.2.840.11 [id number] Univers 00:00:00 00:00:00 Pat [facility] 350.1.13.10 i [place] [phone] [address] 2020-05-03 2020-05-03 Outpatient R SIMONA, [facility] [id number] Univers 13:20:00 13:20:00 PAT [facility] 2020-05-03 2020-05-03 Outpatient R KAREY, [facility] VLS [id number] Univers 10:17:00 10:17:00 AGUSTÍN [facility] 2020-04-30 2020-04-30 [facility] 1.[facility].840.114 [id number] Univers 00:00:00 00:00:00 [facility] 350.1.13.10 i ty of [place] 4.2.7.2.686 Anton as Professio [phone] Wi sophieal nal [address] [facility] 2020-04-25 2020-04-25 Refill Jeremy [facility] [id number] Univers 00:00:00 00:00:00 Faby Cheek 350.1.13.10 i [place] [phone] Wi dical nal [address] [facility] [facility] 2020-04-11 2020-04-11 Prep For Lui Wu [facility] 1.2.840.114 [id number] Univers 00:00:00 00:00:00 Surgery MULTISPEC 350.1.13.10 [place] [phone] [address] [facility] 2020-04-10 2020-04-10 Office Steve Cowart [facility] 1.2.84 0.114 [id number] Univers 13:08:03 14:45:41 Visit Agustín [place] 350.1.13. 10 [place] [phone] [address] [facility] 2020-04-10 2020-04-10 Outpatient R KAREY [facility] [id number] Univers 13:30:00 13:30:00 AGUSTÍN ity of [facility] 2020-04-10 2020-04-10 Refyinka Luna [facility] 1.2.814.604 [id number] Univers 00:00:00 00:00:00 Faby Cehek 350.1.13.10 [place] [phone] [facility] 134 [facility] 2020-04-10 2020-04-10 Orders Doctor MCKEON 1.2.840.114 [id number] Univers 00:00:00 00:00:00 Only Unassigned, MILENA 350.1.13.[address] [facility] 4.2.7.2.686 Anton as [phone] [place] [address] [address] 2020-04-01 2020-04-01 [facility] 1.2.655.082 [id number] Univers 00:00:00 00:00:00 Faby Cheek 350.1.13.10 [place] [phone] [address] 2020-03-27 2020-03-27 Telephone [facility] 1.2.840.114 [id number] Univers 00:00:00 00:00:00 Wondiful A Health 350.1.13.10 ity of [place] 4.2.7.2.686 Anton as Professio [phone] [address] 2020-03-26 2020-03-26 Telephone [facility] 1.2.840.114 [id number] Univers 00:00:00 00:00:00 Wondiful A Health 350.1.13.10 ity of [place] 4.2.7.2.686 [place] Professio [phone] [address] 2020-03-20 2020-03-20 [facility] [id number] Univers 16:20:00 16:20:00 KAREN ity [facility] 2020-03-16 2020-03-16 Rodrigo [facility] 1.2.754.452 [id number] Univers 00:00:00 00:00:00 Faby Cheek 350.1.13.10 [place] [phone] [address] 2020-03-15 2020-03-15 [facility] [id number] Univers 14:30:00 14:30:00 FABY ity [facility] 2020-03-15 2020-03-15 Rodrigo [facility] 1.2.920.555 [id number] Univers 00:00:00 00:00:00 Faby Cheek 350.1.13.10 [place] [phone] [address] 2020-03-07 2020-03-07 Telephone [facility] 1.2.840.114 [id number] Univers 00:00:00 00:00:00 Wondiful A Health 350.1.13.10 ity of [place] 4.2.7.2.686 [place] as Professio [phone] [address] 2020-02-02 2020-02-02 Telemedici [facility] 1.2.840.114 [id number] Univers 08:12:15 15:32:51 ne Visit Pat Cheek 350.1.13.10 [place] [phone] [address] 2020-02-02 2020-02-02 Outpatient R SIMONA [facility] [id number] Univers 14:30:00 14:30:00 PAT ity [facility] 2020-01-30 2020-01-30 Outpatient R ADAM BRISENO [facility] [id number] Univers 15:00:00 15:00:00 ity [facility] 2020-01-30 2020-01-30 Telemedici Faby Luna [facility] 1.2.840 .114 [id number] Univers 08:40:27 14:57:35 ne Visit Rory Adammarvin Moreno [place] 350.1.13.10 [place] [phone] [address] 2020-01-20 2020-01-20 Telephone Rory [facility] 1.2.840.114 [id number] Univers 00:00:00 00:00:00 Cam [place] 350.1.13.10 [place] [phone] Wi dic[address] 2020-01-18 2020-01-18 Telephone Rory Adam [facility] 1.2.840.114 [id number] Univers 00:00:00 00:00:00 Cam [place] 350.1.13.10 [place] [phone] Wi dical nal 134 [facility] 2020-01-18 2020-01-18 Refill Adam Briseno [facility] 1.2.986.256 [id number] Univers 00:00:00 00:00:00 Josh Cheek 350.1.13.10 [place] [phone] Wi dic[address] 2020-01-17 2020-01-17 Orders LINDA Luna 1.2.712.066 [id number] Univers 00:00:00 00:00:00 Only Faby MILENA 350.1.13.10 it y of [facility] 4.2.7.2.686 Anton as [phone] [address] 2020-01-16 2020-01-16 Outpatient R JEREMY [facility] [id number] Univers 16:15:00 16:15:00 FABY keita [facility] 2020-01-16 2020-01-16 Telemedici [facility]AC[facility] 1.2.840.114 [id number] Univers 14:56:15 15:11:15 ne Visit Faby Cheek 350.1.13.10 [place] [phone] [address] 2020-01-16 2020-01-16 Viola PearlAC[facility] 1.2.840.114 [id number] Univers 00:00:00 00:00:00 Wondiful A [place] 350.1.13.10 it[place] of [place] [phone] Wi dical [address] 2020-01-05 2020-01-05 Outpatient R JEREMY [facility] [id number] Univers 13:45:00 13:45:00 FABY keita [facility] 2020-01-05 2020-01-05 Telemedici JeremyAC[facility] 1.2.840.114 [id number] Univers 13:29:36 13:44:36 ne Visit Faby Cheek 350.1.13.10 [place] [phone] Wi dical nal 134 [facility] 2020-01-05 2020-01-05 Telephone JohnminnaAC[facility] 1.2.840.114 [id number] Univers 00:00:00 00:00:00 Faby Adia 350.1.13.10 i [place] [phone] Wi dical nal 134 [facility] 2019-12-22 2019-12-22 [facility] [id number] Univers 13:54:06 23:59:00 FABY ity of [facility] 2019-12-22 2019-12-22 [facility] 1.2.840.114 [id number] Univers 13:54:00 23:59:00 Encounter Faby Cheek 350.1.13.10 [place] of [place] [phone] [facility] [address] 2019-12-22 2019-12-22 Office [facility] 1.2.840.114 [id number] Univers 15:13:31 16:58:13 Visit Esther Nielsen [facility] 350.1.13.10 i ty of [place] 4.2.7.2.686 [place] as Professio [phone] [facility] [address] Office [facility] One 2019-12-22 2019-12-22 Orders Doctor LINDA 1.2.840.114 [id number] Univers 00:00:00 00:00:00 Only Unassigned, MILENA 350.1.13.[address] [facility] 4.2.7.2.686 Anton as [phone] [facility] [address] 2019-12-20 2019-12-20 Telephone Adam Briseno [facility] 1.2.840.114 [id number] Univers 00:00:00 00:00:00 Cam Adia 350.1.13.10 [place] [phone] Wi dical nal 134 [facility] 2019-12-14 2019-12-14 [facility] [id number] Univers 12:43:56 23:59:00 FABY ity of [facility] 2019-12-14 2019-12-14 [facility] 1.2.840.114 [id number] Univers 12:43:00 23:59:00 Encounter Faby Cheek 350.1.13.10 [place] of [place] [phone] [address] 2019-12-14 2019-12-14 Office [facility] 1.2.003.926 [id number] Univers 11:22:45 12:07:03 Visit Faby Cheek 350.1.13.10 [place] [phone] Wi dic[address] 2019-12-14 2019-12-14 [facility] 1.2.247.880 [id number] Univers 00:00:00 00:00:00 Management Faby Cheek 350.1.13.10 it[place] [phone] Wi dical nal [address] [place] [address] 2019-12-13 2019-12-13 Telephone Jeremy [facility] 1.2.840.114 [id number] Univers 00:00:00 00:00:00 Faby Cheek 350.1.13.10 i ty [place] [phone] Wi dical nal [address] [place] [address] 2019-12-08 2019-12-08 Office Adam Briseno [facility] 1.2.372.239 [id number] Univers 12:55:59 14:01:07 Visit Josh Cheek 350.1.13.10 i [place] [phone] [address] 2019-12-08 2019-12-08 Outpatient R ADAM BRISENO [facility] [id number] Univers 13:00:00 13:00:00 ity of [facility] 2019-12-06 2019-12-06 Telephone Maykel [facility] 1.2.515.640 [id number] Univers 00:00:00 00:00:00 Esther Nielsen [facility] 350.1.13.10 i ty of [place] 4.2.7.2.686 [place] as Professio [phone] [facility] 044 [facility] One 2019-12-01 2019-12-01 [employer] 2, Adc Lab [facility] 1.2.840.114 [id number] Univers 13:54:38 14:09:38 Visit MaykelGiermias [place] 350.1.13.10 ity of [place] [phone] [facility] 353 [facility] 2019-12-01 2019-12-01 Outpatient R JEREMY [facility] [id number] Univers 13:00:00 13:45:16 FABY ity [facility] 2019-12-01 2019-12-01 Office Jeremy [facility] 1.2.301.227 [id number] Univers 12:55:31 13:45:16 Visit Faby Cheek 350.1.13.10 i [place] [phone] [facility] nal 134 [facility] 2019-12-01 2019-12-01 Orders Doctor LINDA 1.2.840.114 [id number] Univers 00:00:00 00:00:00 Only Unassigned, MILENA 350.1.13.[address] [facility] 4.2.7.2.686 Anton as [phone] [address] 2019-11-30 2019-11-30 Office [facility] 1.2.840.114 [id number] Univers 12:34:27 13:09:34 Visit Esther Nielsen Health 350.1.13.10 i ty of [place] 4.2.7.2.686 Anton as Professio [phone] [facility] [address] Office [facility] 2019-11-26 2019-11-26 Refill [facility] 1.2.840.114 [id number] Univers 00:00:00 00:00:00 Esther A Health 350.1.13.10 i ty of [place] 4.2.7.2.686 Anton as Professio [phone] Wi dicdenise nal [address] Office [facility] 2019-11-11 2019-11-11 Hospital [facility] 1.2.840.[id number] [facility] 14:10:00 23:59:00 Encounter Faby Adia 350.1.13.10 [place] [phone] [facility] [address] 2019-11-10 2019-11-10 Telephone [facility] 1.2.840.114 [id number] Univers 00:00:00 00:00:00 Faby Cheek 350.1.13.10 [place] [phone] Wi dicmn nal 134 [facility] 2019-11-08 2019-11-08 [employer] Instructor 2, Adc Lab [facility] 1.2.840.114 [id number] Univers 10:31:32 10:46:32 Visit Faby Luna Adia 350.1.13.10 it[place] of [place] [phone] Wi dicdenise [facility] 353 [facility] 2019-11-08 2019-11-08 Office [facility] 1.2.338.475 [id number] Univers 09:44:45 10:14:45 Visit Faby Cheek 350.1.13.10 i ty [place] [phone] Wi dical nal 134 [facility] 2019-11-08 2019-11-08 Orders Doctor LINDA 1.2.840.114 [id number] Univers 00:00:00 00:00:00 Only Unassigned, MILENA 350.1.13.[address] [facility] 4.2.7.2.686 Anton as [phone] [facility] [address] 2019-11-08 2019-11-08 Telephone [facility] 1.2.840.114 [id number] Univers 00:00:00 00:00:00 Faby [place] 350.1.13.10 i [place] [phone] [address] 2019-11-08 2019-11-08 Telephone Josu[facility] 1.2.840.114 [id number] Univers 00:00:00 00:00:00 Faby [place] 350.1.13.10 i ty [place] [phone] [address] 2019-06-10 2019-06-10 Orders Doctor LINDA 1.2.840.114 [id number] Univers 00:00:00 00:00:00 Only Unassigned, MILENA 350.1.13.[address] [facility] 4.2.7.2.686 Anton as [phone] [address] 2019-06-09 2019-06-09 Telephone [facility] 1.2.117.909 [id number] Univers 00:00:00 00:00:00 Esther A Health 350.1.13.10 i ty of [place] 4.2.7.2.686 Anton as Professio [phone] [address] Office [facility] 2019-05-27 2019-05-27 [facility] 1.2.768.880 [id number] Univers 00:00:00 00:00:00 Esther A Health 350.1.13.10 i ty of [place] 4.2.7.2.686 Anton as Professio [phone] [address] Office [facility] 2019-05-24 2019-05-24 [facility] 1.2.840.114 [id number] Univers 13:00:44 13:20:44 Visit Esther A Health 350.1.13.10 i ty of [place] 4.2.7.2.686 Anton as Professio [phone] [address] Office [facility] 2019-05-24 2019-05-24 Orders Doctor LINDA 1.2.840.114 [id number] Univers 00:00:00 00:00:00 Only Unassigned, MILENA 350.1.13.[address] [facility] 4.2.7.2.686 Anton as [phone] [address] 2019-05-07 2019-05-07 Refill Maykel [facility] 1.2.840.114 [id number] Univers 00:00:00 00:00:00 Esther Roblero 350.1.13.10 i ty of [place] 4.2.7.2.686 Anton as Cherelleio [phone] Wi dical nal [address] One Results Test Description Test Time Test Comments Results Result Comments Source POCT MOLECULAR FLU 2022-10-09 19:56:40 Test Item Value Reference Range Interpretation Comme nts POCT Molecular FluA (test code = 62898-8) Negative Negative POCT Molecular FluB (test code = 03888-3) Negative Negative Lab Interpretation (test code = 35381-0) Normal [facility] MOLECULAR [id number] 19:56:40 Test Item Value Reference Range Interpretation Comments POCT Molecular FluA (test code = Negative Negative 81901-9) POCT Molecular FluB (test code = Negative Negative 16236-1) Lab Interpretation (test code = Normal 26074-0) [facility] MOLECULAR [id number] 19:56:40 Test Item Value Reference Range Interpretation Comments POCT Molecular FluA (test code = Negative Negative 19194-8) POCT Molecular FluB (test code = Negative Negative 78920-6) Lab Interpretation (test code = Normal 37502-5) [facility] MOLECULAR [id number] 19:56:40 Test Item Value Reference Range Interpretation Comments POCT Molecular FluA (test code = Negative Negative 97671-6) POCT Molecular FluB (test code = Negative Negative 66885-4) Lab Interpretation (test code = Normal 02675-0) [facility] MOLECULAR [id number] 19:56:40 Test Item Value Reference Range Interpretation Comments POCT Molecular FluA (test code = Negative Negative 39139-7) POCT Molecular FluB (test code = Negative Negative 27686-9) Lab Interpretation (test code = Normal 28725-9) [facility] MOLECULAR [id number] 19:56:40 Test Item Value Reference Range Interpretation Comments POCT Molecular FluA (test code = Negative Negative 61370-1) POCT Molecular FluB (test code = Negative Negative 49208-3) Lab Interpretation (test code = Normal 00462-6) [facility] MOLECULAR [id number] 19:56:40 Test Item Value Reference Range Interpretation Comments POCT Molecular FluA (test code = Negative Negative 16951-3) POCT Molecular FluB (test code = Negative Negative 39455-3) Lab Interpretation (test code = Normal 70343-2) [facility] SARS-COV-2 ANTIGEN (BINAX NOW)2022-10-09 19:51:00 Test Item Value Reference Range Interpretation Comments POCT SARS-COV-2 ANTIGEN (test Not Detected Not Detected code = 58068-3) On board controls acceptable Yes with C Line (test code = 3574) Lab Interpretation (test code = Normal 42177-0) [facility] SARS-COV-2 ANTIGEN (BINAX NOW)2022-10-09 19:51:00 Test Item Value Reference Range Interpretation Comments POCT SARS-COV-2 ANTIGEN (test Not Detected Not Detected code = 62250-0) On board controls acceptable Yes with C Line (test code = 3574) Lab Interpretation (test code = Normal 22047-8) [facility] SARS-COV-2 ANTIGEN (BINAX NOW)2022-10-09 19:51:00 Test Item Value Reference Range Interpretation Comments POCT SARS-COV-2 ANTIGEN (test Not Detected Not Detected code = 26761-1) On board controls acceptable Yes with C Line (test code = 3574) Lab Interpretation (test code = Normal 95686-3) [facility] SARS-COV-2 ANTIGEN (BINAX NOW)2022-10-09 19:51:00 Test Item Value Reference Range Interpretation Comments POCT SARS-COV-2 ANTIGEN (test Not Detected Not Detected code = 61767-5) On board controls acceptable Yes with C Line (test code = 3574) Lab Interpretation (test code = Normal 35083-7) [facility] SARS-COV-2 ANTIGEN (BINAX NOW)2022-10-09 19:51:00 Test Item Value Reference Range Interpretation Comments POCT SARS-COV-2 ANTIGEN (test Not Detected Not Detected code = 75993-4) On board controls acceptable Yes with C Line (test code = 3574) Lab Interpretation (test code = Normal 99787-8) [facility] SARS-COV-2 ANTIGEN (BINAX NOW)2022-10-09 19:51:00 Test Item Value Reference Range Interpretation Comments POCT SARS-COV-2 ANTIGEN (test Not Detected Not Detected code = 84322-6) On board controls acceptable Yes with C Line (test code = 3574) Lab Interpretation (test code = Normal 96765-2) [facility] SARS-COV-2 ANTIGEN (BINAX NOW)2022-10-09 19:51:00 Test Item Value Reference Range Interpretation Comments POCT SARS-COV-2 ANTIGEN (test Not Detected Not Detected code = 96477-4) On board controls acceptable Yes with C Line (test code = 3574) Lab Interpretation (test code = Normal 27164-4) [facility] [id number] 00:00:00 Test Item Value Reference Range Interpretation Comments BLOOD SUGAR (test code = 493631) 354 mg/dL 65-99 A Lab Interpretation (test code = Abnormal 99605-9) [facility] ExternalPOCT URINALYSIS W SPECIFIC [id number] 17:00:00 Test Item Value Reference Range Interpretation Comments POCT U SP GRAV (test code = 1.015 mg/dl 1.005-1.025 5) POCT PH U (test code = 3254) 7 mg/dl 5-8 POCT U LEUK EST (test code = ++ Negative - Negative 3) POCT U NIT (test code = 3262) negative Negative - Negative POCT U PROT (test code = negative Negative - Negative 9) POCT U GLU (test code = 3256) Negative - Negative POCT U KETONE (test code = negative Negative - Negative 8) POCT U UROBILI (test code = negative 0.2-1 0) POCT U BILI (test code = negative Negative - Negative 1) POCT U BLD (test code = 3257) trace Negative - Negative POCT U COLOR (test code = 3266) POCT U APPEAR (test code = 3267) [facility]CIFIC [id number] 17:00:00 Test Item Value Reference Range Interpretation Comments POCT U SP GRAV (test code = 1.015 mg/dl 1.005-1.025 3255) POCT PH U (test code = 3254) 7 mg/dl 5-8 POCT U LEUK EST (test code = ++ Negative - Negative 3263) POCT U NIT (test code = 3262) negative Negative - Negative POCT U PROT (test code = negative Negative - Negative 3259) POCT U GLU (test code = 3256) Negative - Negative POCT U KETONE (test code = negative Negative - Negative 3258) POCT U UROBILI (test code = negative 0.2-1 3260) POCT U BILI (test code = negative Negative - Negative 3261) POCT U BLD (test code = 3257) trace Negative - Negative POCT U COLOR (test code = 3266) POCT U APPEAR (test code = 3267) [facility] URINALYSIS W SPECIFIC [id number] 17:00:00 Test Item Value Reference Range Interpretation Comments POCT U SP GRAV (test code = 1.015 mg/dl 1.005-1.025 3255) POCT PH U (test code = 3254) 7 mg/dl 5-8 POCT U LEUK EST (test code = ++ Negative - Negative 3263) POCT U NIT (test code = 3262) negative Negative - Negative POCT U PROT (test code = negative Negative - Negative 3259) POCT U GLU (test code = 3256) Negative - Negative POCT U KETONE (test code = negative Negative - Negative 3258) POCT U UROBILI (test code = negative 0.2-1 3260) POCT U BILI (test code = negative Negative - Negative 3261) POCT U BLD (test code = 3257) trace Negative - Negative POCT U COLOR (test code = 3266) POCT U APPEAR (test code = 3267) [facility] [id number] 14:51:00 Test Item Value Reference Range Interpretation Comments BLOOD SUGAR (test code = 743313) 226 mg/dL 65-99 A Lab Interpretation (test code = Abnormal 77153-0) [place] - External
--- NOTE | 2022-10-21 17:23 | RAD REPORT ---
EXAM DESCRIPTION: RAD - Chest Pa And Lat (2 Views) - 10/21/2022 5:09 pm CLINICAL HISTORY: Cough COMPARISON: Portable 06/22/2022 TECHNIQUE: Frontal and lateral views of the chest were obtained. FINDINGS: The lungs are underinflated. No focal mass or consolidations seen. Bibasilar lung marking s are accentuated due to under penetrated film technique and overlying soft tissues. No significant f ailure or volume overload. Heart size is normal and central vasculature is within normal limits. No pleural effusion or pneumo thorax seen. No acute bony finding noted. No aortic abnormality. IMPRESSION: No acute cardiopulmonary process.
[2022-10-21] MEDS ORDERED: HYDROCODONE/CHLORPHEN 5 ML/OSYR ONE (17:35)
[2022-10-21] MEDS ORDERED: LEVALBUTEROL 1.25 MG/3 ML NEB ONE (17:35)
[2022-10-21] MEDS ORDERED: NA CHLORIDE 0.9% 1,000 ML ONE ×2 (17:35→19:10)
[2022-10-21 17:50] LABS: Absolute Lymphocytes (CBC) 1.7 K/uL (0.7-4.9); Hematocrit 48.6 % (36.0-45.0); Lymphocytes % 11.7 % (15.3-44.8); MPV 8.3 fL (7.6-11.3); RBC Red Blood Cell Count 5.59 M/uL (3.86-4.86)
[2022-10-21 18:20] LABS: Potassium 4.7 mmol/L (3.5-5.1)
[2022-10-21] MEDS ORDERED: KETOROLAC 30 MG/ML INJ ONE (18:21)
[2022-10-21 18:48] LABS: SARS-COV-2 RT PCR NEGATIVE (NEGATIVE)
--- NOTE | 2022-10-21 19:08 | EDPHYS ---
Physician Documentation [facility] Name: Sadia Mcpherson Age: 52 yrs Sex: Female : 1970 Arrival Date: 10/21/2022 Time: 15:27 Bed 15 Private MD: Johnnie Azevedo ED Physician Rusty Rm HPI: 10/21 16:45 This 52 yrs old Female presents to ER via Wheelchair with complaints of Chest Pain, pm1 Back Pain, Cough, Headache. 16:45 The patient or guardian reports cough, That sounds productive, flu symptoms, Body pm1 aches, headache. Onset: The symptoms/episode began/occurred 2021 patient was diagnosed with influenza at [facility] and discharged home with antibiotics. No tamiflu given to the patient. Patient reports no improvement and contacted PCP about 3 days ago and was prescribed Levaquin. Patient reports no improvement with an antibiotic and presented to the ER with complaints of chest pain with coughing and sounds productive, body aches, back pain, and headache. Historical: - Allergies: 15:37 Wellbutrin; ll1 15:37 tobramycin; ll1 15:37 Sulfa (Sulfonamide Antibiotics); ll1 15:37 Lamictal; ll1 - PMHx: 15:37 Depression; Hypertension; Hypothyroidism; IDDM; adrenal insuff.; ll1 - PSHx: 15:37 Lithotripsy; ll1 - Immunization history:: Client reports having NOT received the Covid vaccine. - Social history:: Smoking status: Patient denies any tobacco usage or history of. ROS: 16:45 Abdomen/GI: Negative for abdominal pain, nausea, vomiting, diarrhea, and constipation, pm1 Back: Negative for injury and pain, MS/Extremity: Negative for injury and deformity, Skin: Negative for injury, rash, and discoloration. 16:45 Eyes: Negative for injury, pain, redness, and discharge, ENT: Negative for injury, pain, and discharge, Neck: Negative for injury, pain, and swelling. 16:45 Constitutional: Positive for body aches, Fever 4 days ago. 16:45 Cardiovascular: Positive for chest pain, with cough. 16:45 Respiratory: Positive for cough. 16:45 Neuro: Positive for headache. 16:45 All other systems are negative. Exam: 16:45 Constitutional: This is a well developed, well nourished patient who is awake, alert, pm1 and in no acute distress. Head/Face: Normocephalic, atraumatic. 16:45 Skin: Warm, dry with normal turgor. Normal color with no rashes, no lesions, and no evidence of cellulitis. MS/ Extremity: Pulses equal, no cyanosis. Neurovascular intact. Full, normal range of motion. 16:45 Eyes: Exam is negative for acute changes, Conjunctiva: no acute changes, no injection. 16:45 ENT: Exam is negative for acute changes, Mouth: no acute changes, Lips: normal, moist, Oral mucosa: normal, pink and intact, moist. 16:45 Neck: Exam negative for acute changes, ROM/movement: no acute changes. 16:45 Cardiovascular: Exam negative for acute changes, Rate: normal, Rhythm: regular, Pulses: no pulse deficits are appreciated, Heart sounds: normal, normal S1and S2. 16:45 Respiratory: Exam negative for acute changes, respiratory distress, shortness of breath, Breath sounds: are clear throughout. 16:45 Neuro: Exam negative for acute changes, Orientation: is normal, Mentation: is normal, Motor: is normal, moves all fours. Vital Signs: 15:38 BP 125 / 89; Pulse 97; Resp 20; Temp 98.0; Pulse Ox 99% ; Weight 98.88 kg; Height 5 ft. ll1 4 in. (162.56 cm); Pain 10/10; 18:34 BP 107 / 90; Pulse 80; Resp 20; Pulse Ox 98% on R/A; kr3 15:38 Body Mass Index 37.42 (98.88 kg, 162.56 cm) ll1 MDM: 16:28 Patient medically screened. pm1 19:04 Data reviewed: vital signs. pm1 19:04 Differential diagnosis: viral Infection, bacterial infection, URI, pneumonia influenza, pm1 covid, rsv. 19:04 Care significantly affected by the following chronic conditions: Diabetes. pm1 19:04 Counseling: I had a detailed discussion with the patient and/or guardian regarding: the pm1 historical points, exam findings, and any diagnostic results supporting the discharge/admit diagnosis, lab results, radiology results, the need for outpatient follow up, to return to the emergency department if symptoms worsen or persist or if there are any questions or concerns that arise at home. 19:04 ED course: Recommended to patient additional IV fluids for her dehydration and to pm1 improve for glucose level. Patient wants stronger pain medication for her headache reports that morphine has worked for her migraines in the past. Agreeable to the medication due to patient's additional complaint of cough. Patient reports improvement in her cough with narcotic, Tussionex. 20:12 ED course: Patient refused Benadryl and Reglan for treatment of her headache and pm1 requested additional narcotic, morphine. 20:25 ED course: PMPaware reviewed and unable to give patient any medication due to patient pm1 getting Phenergan with codeine prescribed yesterday. 20:28 ED course: Patient's concerned that no imaging was performed for patient's pm1 headache. Discussed with and patient that headache is a constellation of symptoms expected with influenza, but he does not believe clinical judgement. Therefore will order CT head to provide them reassurance. I also discussed with patient I am unable to prescribe any cough medication with narcotics due to recent prescription for Phenergan with codeine yesterday. Will prescribe non-narcotic cough medication instead. 20:57 ED course: RN reports patient does not want to wait for the CT report and wants to go pm1 home now. 10/21 16:45 Order name: COVID-19/FLU A+B; Complete Time: 18:56 pm1 10/21 16:45 Order name: CBC with Diff; Complete Time: 18:22 pm1 10/21 16:14 Order name: Chest Pa And Lat (2 Views) XRAY; Complete Time: 17:24 pm1 10/21 16:45 Order name: BMP; Complete Time: 18:22 pm1 10/21 16:46 Order name: IV Saline Lock; Complete Time: 17:36 pm1 Administered Medications: 18:00 Drug: NS 0.9% 1000 ml Route: IV; Rate: 1000 ml; Site: right hand; kr3 20:22 Follow up: Response: No adverse reaction; IV Status: Completed infusion; IV Intake: aa9 1000ml 18:01 Drug: Tussionex Pennkinetic ER (chlorpheniramine-hydrocodone) Suspension 5 ml Route: PO;kr3 18:43 Follow up: Response: Pain is unchanged, physician notified kr3 18:01 Drug: Xopenex (levalbuterol) 1.25 mg Route: Inhalation; kr3 18:01 Drug: Xopenex (levalbuterol) 1.25 mg Route: Inhalation; kr3 18:21 Drug: Ketorolac 30 mg Route: IVP; Site: right antecubital; kr3 20:23 Follow up: Response: No adverse reaction aa9 19:18 Drug: morphine 4 mg Route: IVP; Infused Over: 4 mins; Site: right wrist; aa9 20:23 Follow up: Response: No adverse reaction aa9 19:18 Drug: Zofran (Ondansetron) 4 mg Route: IVP; Site: right wrist; aa9 20:23 Follow up: Response: No adverse reaction aa9 19:18 Drug: NS 0.9% 1000 ml Route: IV; Rate: 1000 ml; Site: right wrist; aa9 20:24 Follow up: Response: No adverse reaction; IV Status: Completed infusion; IV Intake: aa9 1000ml 20:05 Not Given (Patient Refused): Reglan (metoCLOPramide) 10 mg IVP once; over 1 to 2 minutesaa9 20:05 Not Given (Patient Refused): Benadryl (diphenhydrAMINE) 12.5 mg IVP once aa9 20:22 Drug: morphine 4 mg Route: IVP; Infused Over: 4 mins; Site: right wrist; aa9 20:23 Follow up: Response: No adverse reaction aa9 Disposition Summary: 10/21/22 19:08 Discharge Ordered Location: Home pm1 Problem: new pm1 Symptoms: have improved pm1 Condition: Stable pm1 Diagnosis - Influenza due to identified novel influenza A virus pm1 Followup: pm1 - With: Emergency Department - When: As needed - Reason: Worsening of condition Followup: pm1 - With: Private Physician - When: 2 - 3 days - Reason: Recheck today's complaints, Continuance of care, Re-evaluation by your physician Discharge Instructions: - Discharge Summary Sheet pm1 - Influenza, Adult, [id number] pm1 Forms: - Medication Reconciliation Form pm1 - Thank You Letter pm1 - Antibiotic Education pm1 - Prescription Opioid Use pm1 Prescriptions: - Bromfed DM 2-30-10 mg/5 mL Oral syrup - take 10 milliliter by ORAL route every 4 hours As needed; 200 milliliter; pm1 Refills: 0, Product Selection Permitted Signatures: Dispatcher [employer] EDDarius Sharif, PROP SETTER PROP SETTER pm1 Martha Crawley RN RN ll1 Ruchi Whelan RN RN aa9 Shruti Armstrong RN RN kr3 Corrections: (The following items were deleted from the chart) 19:06 19:04 Care significantly affected by the following chronic conditions: Diabetes, pm1 pm1
--- NOTE | 2022-10-21 19:08 | ER ---
Nurse's Notes [facility] Name: Sadia Mcpherson Age: 52 yrs Sex: Female : 1970 Arrival Date: 10/21/2022 Time: 15:27 Bed 15 Private MD: Johnnie Azevedo Diagnosis: Influenza due to identified novel influenza A virus Presentation: 10/21 15:38 Chief complaint: Patient states: Flu + 10/09 at [facility]. Has CP and back pain now, cough, ll1 BETH, sweats, fever and N/V. On Levaquin for 3 days, not getting better. Coronavirus screen: Vaccine status: Patient reports being unvaccinated. Client denies travel out of the [place] in the last 14 days. congestion, cough unrelated to allergies, difficulty breathing, fatigue, fever, headache, muscle pain, nausea, shortness of breath, sore throat, vomiting. Client presents with at least one sign or symptom that may indicate coronavirus-19. Standard/surgical mask placed on the client. Ebola Screen: Patient denies travel to an Ebola-affected area in the 21 days before illness onset. Initial Sepsis Screen: Does the patient meet any 2 criteria? HR > 90 bpm. No. Patient's initial sepsis screen is negative. Does the patient have a suspected source of infection? Yes: Productive cough/pneumonia. Risk Assessment: Do you want to hurt yourself or someone else? Patient reports no desire to harm self or others. Onset of symptoms was October 08, 2022. 15:38 Method Of Arrival: Wheelchair ll1 15:38 Acuity: JAYLEN 3 ll1 Historical: - Allergies: 15:37 Wellbutrin; ll1 15:37 tobramycin; ll1 15:37 Sulfa (Sulfonamide Antibiotics); ll1 15:37 Lamictal; ll1 - PMHx: 15:37 Depression; Hypertension; Hypothyroidism; IDDM; adrenal insuff.; ll1 - PSHx: 15:37 Lithotripsy; ll1 - Immunization history:: Client reports having NOT received the Covid vaccine. - Social history:: Smoking status: Patient denies any tobacco usage or history of. Screenin:38 [facility] ED Fall Risk Assessment (Adult) History of falling in the last 3 months, aa9 including since admission No falls in past 3 months (0 pts) Confusion or Disorientation No (0 pts) Intoxicated or Sedated No (0 pts) Impaired Gait No (0 pts) Mobility Assist Device Used No (0 pt) Altered Elimination No (0 pt) Score/Fall Risk Level 0 - 2 = Low Risk. Abuse screen: Denies threats or abuse. Denies injuries from another. Nutritional screening: No deficits noted. Tuberculosis screening: No symptoms or risk factors identified. Assessment: 18:32 General: Appears in no apparent distress. uncomfortable, Behavior is calm, cooperative, kr3 appropriate for age. Pain:. Neuro: Level of Consciousness is awake, alert, obeys commands, Oriented to person, place, time, situation. Cardiovascular: Patient's skin is warm and dry. Respiratory: Reports cough that is pain with cough Airway is patent Respiratory effort is even, unlabored, Respiratory pattern is regular, symmetrical. GI: No signs and/or symptoms were reported involving the gastrointestinal system. : No signs and/or symptoms were reported regarding the genitourinary system. EENT: No deficits noted. Derm: No deficits noted. Musculoskeletal: Circulation, motion, and sensation intact. 19:19 Reassessment: Patient appears in no apparent distress at this time. Patient is alert, aa9 oriented x 3, equal unlabored respirations, skin warm/dry/pink. discharge pending NS bolus administration. 20:39 Reassessment: Patient appears in no apparent distress at this time. discharge pending aa9 CT scan. 23:39 Pain: Pain does not radiate. aa9 23:39 Pain: Pain began 2-3 days ago. aa9 Vital Signs: 15:38 BP 125 / 89; Pulse 97; Resp 20; Temp 98.0; Pulse Ox 99% ; Weight 98.88 kg; Height 5 ft. ll1 4 in. (162.56 cm); Pain 10/10; 18:34 BP 107 / 90; Pulse 80; Resp 20; Pulse Ox 98% on R/A; kr3 15:38 Body Mass Index 37.42 (98.88 kg, 162.56 cm) ll1 ED Course: 15:27 Patient arrived in ED. as 15:28 Johnnie Azevedo DO is Private Physician. as 15:41 Triage completed. ll1 15:41 Arm band placed on. ll1 16:13 Darius Sr NP is PHCP. pm1 16:13 Rusty Rm MD is Attending Physician. pm1 17:10 Chest Pa And Lat (2 Views) XRAY In Process Unspecified. EDMS 17:26 Shruti Armstrong, SILIVA is Primary Nurse. kr3 17:36 Inserted saline lock: 20 gauge in right wrist, using aseptic technique. Blood collected.ss 19:19 Primary Nurse role handed off by Shruti Armstrong, SILVIA mw2 20:58 Ruchi Whelan RN is Primary Nurse. aa9 21:14 IV discontinued, intact, bleeding controlled, No redness/swelling at site. Pressure aa9 dressing applied. Patient maintains SpO2 saturation greater than 95% on room air. 23:38 Patient has correct armband on for positive identification. Bed in low position. Call aa9 light in reach. Side rails up X2. Client placed on continuous cardiac and pulse oximetry monitoring. NIBP monitoring applied. 23:38 No provider procedures requiring assistance completed. aa9 Administered Medications: 18:00 Drug: NS 0.9% 1000 ml Route: IV; Rate: 1000 ml; Site: right hand; kr3 20:22 Follow up: Response: No adverse reaction; IV Status: Completed infusion; IV Intake: aa9 1000ml 18:01 Drug: Tussionex Pennkinetic ER (chlorpheniramine-hydrocodone) Suspension 5 ml Route: PO;kr3 18:43 Follow up: Response: Pain is unchanged, physician notified kr3 18:01 Drug: Xopenex (levalbuterol) 1.25 mg Route: Inhalation; kr3 18:01 Drug: Xopenex (levalbuterol) 1.25 mg Route: Inhalation; kr3 18:21 Drug: Ketorolac 30 mg Route: IVP; Site: right antecubital; kr3 20:23 Follow up: Response: No adverse reaction aa9 19:18 Drug: morphine 4 mg Route: IVP; Infused Over: 4 mins; Site: right wrist; aa9 20:23 Follow up: Response: No adverse reaction aa9 19:18 Drug: Zofran (Ondansetron) 4 mg Route: IVP; Site: right wrist; aa9 20:23 Follow up: Response: No adverse reaction aa9 19:18 Drug: NS 0.9% 1000 ml Route: IV; Rate: 1000 ml; Site: right wrist; aa9 20:24 Follow up: Response: No adverse reaction; IV Status: Completed infusion; IV Intake: aa9 1000ml 20:05 Not Given (Patient Refused): Reglan (metoCLOPramide) 10 mg IVP once; over 1 to 2 minutesaa9 20:05 Not Given (Patient Refused): Benadryl (diphenhydrAMINE) 12.5 mg IVP once aa9 20:22 Drug: morphine 4 mg Route: IVP; Infused Over: 4 mins; Site: right wrist; aa9 20:23 Follow up: Response: No adverse reaction aa9 Medication: 23:38 VIS not applicable for this client. aa9 Intake: 20:22 IV: 1000ml; Total: 1000ml. aa9 20:24 IV: 1000ml; Total: 2000ml. aa9 Outcome: 19:08 Discharge ordered by . pm1 21:14 Patient left the ED. aa9 23:38 Discharged to home via wheelchair. aa9 23:38 Condition: stable 23:38 Discharge instructions given to patient, family, Instructed on discharge instructions, follow up and referral plans. medication usage, Demonstrated understanding of instructions, follow-up care, medications, Prescriptions given X 1. Signatures: Dispatcher [employer] EDMS Romi Dwyer Shelby, RN Darius Bar NP [employer] pm1 Natalie Roque mw2 Martha Crawley RN RN ll1 Ruchi Whelan RN RN aa9 Shruti Armstrong RN RN kr3
[2022-10-21] MEDS ORDERED: ONDANSETRON 4 MG/2 ML VIAL ONE (19:10)
[2022-10-21] MEDS ORDERED: MORPHINE 4 MG/ML SYR ONE ×2 (19:10→20:18)
[2022-10-21 21:35] VITALS: TEMP 98
[2022-10-21 21:36] VITALS: BP 107/90; O2SAT 98
--- NOTE | 2022-10-22 14:54 | EKG ---
Test Date: 2022-10-21 Test Time: 17:38:24 Refrigerator Room Clerk: LUCAS MEASUREMENT RESULTS: Intervals: Rate: 90 MO: 144 QRSD: 88 QT: 360 QTc: 440 [place]: P: 37 MO: 144 QRS: 54 T: 79 INTERPRETIVE STATEMENTS: Normal sinus rhythm Nonspecific T wave abnormality Abnormal ECG Compared to ECG 06/22/2022 07:39:04 T-wave abnormality now present Electronically Signed On 10-22-22 14:53:19 OPERATING ROOM NURSE by Jose Segovia
== END 2022-10-21 21:14 | disposition home or self-care (01) ==
LOC: ER 15:27
DX: J10.1 Influenza due to other identified influenza virus with other respiratory manifestations (principal); Z20.822 Contact with and (suspected) exposure to COVID-19; I10 Essential (primary) hypertension; Z88.2 Allergy status to sulfonamides; Z88.8 Allergy status to other drugs, medicaments and biological substances
CPT/HCPCS: 93005; 85025; 80048; 36415; 0240U; 71046; 99285; J7614; J7030 ×2; J2405

== ENCOUNTER 2022-11-25 17:39 | Emergency (ER) | payer OTHER ==
[2022-11-25] MEDS ORDERED: NALOXONE 0.4 MG/ML VIAL ONE ×2 (17:49→17:50)
--- OUTSIDE RECORDS SUMMARY | 2022-11-25 17:50 | XMS REPORT | Continuity of Care Document ---
:1970 Author Organization [facility] t Address [address] [place] [address] Care Team Providers Name Role Phone Fabian Foster MD Primary Care Physician [phone] ARUN MERCER Attending Clinician Unavailable JOHNNIE AZEVEDO Attending Clinician Unavailable BHARAT JOSEPH Attending Clinician Unavailable PATRICIA YAP Attending Clinician Unavailable Champkely_Cecilia Attending Clinician Unavailable Team, [facility] Attending Clinician Unavailabl e LAB90 Attending Clinician Unavailable Aurora Avendaño MD Attending Clinician Khai Franks MD Attending Clinician [phone] NEO GUNN Attending Clinician Unavailable ISIS RAMOS Attending Clinician Unavailable ISIS RAMOS Attending Clinician Unavailable King DMITRY MD, James C Attending Clinician LEX KLINE III Attending Clinician Unavailable Unknown, Attending Attending Clinician Unavailable FABIAN FOSTER Attending Clinician Unavailable Provider, Ang [facility] Attending Clinician Unavailable AURORA AVENDAÑO Attending Clinician Unavailable Ryan Summer FIGUEREDO Attending Clinician SUMMER DAVIS Attending Clinician Unavailable LAB47 Attending Clinician Unavailable KAUR TIPTON Attending Clinician Unavailable Prezas DO, Johnnie Attending Clinician MD DAKSHA Attending Clinician Unavailable Lance EID, Atrhur Attending Clinician Kristin EID, Fabian Luke Attending Clinician [phone] Ruslan GRIFFIN Arun Eneida Attending Clinician Eve EID, Tavares Arciniega Attending Clinician CECILIA ABRAHAM Attending Clinician Unavailable CECILIA ABRAHAM Attending Clinician Unavailable Simona EID, Pat Attending Clinician PAT JARVIS Attending Clinician Unavailable ARTHUR LUCAS Attending Clinician Unavailable LISSETTE ALANIZ Attending Clinician Unavailable Pearl EID, Pilar Nielsen Attending Clinician Andres VEGA, Kendra Gray Attending Clinician Unavailable KAREN TOMLIN Attending Clinician Unavailable Green GEOSPATIAL DEVELOPER, Karen Attending Clinician Ebrahieneida GEOSPATIAL DEVELOPER, Shena Attending Clinician Doctor Unassigned, [place] Attending Clinician Unavailable Lab, Ang - Db Attending Clinician Unavailable Samantha GEOSPATIAL DEVELOPERSteve Brooks Attending Clinician STEVE SINGH Attending Clinician Unavailable RAJAT NORIEGA Attending Clinician Unavailable Rajat Noriega MD Attending Clinician JACQUE MARES Attending Clinician Unavailable Only, Ang Db Test Attending Clinician Unavailable PILAR KANG Attending Clinician Unavailable Marizol Manning Attending Clinician MARIZOL GA Attending Clinician Unavailable Natalie VEGA, Danii Attending Clinician Unavailable 2, [facility] Attending Clinician Unavailable Farhad Armstrong RN Attending Clinician Unavailable Esther Kinsey Attending Clinician Pob, [facility] Main Attending Clinician Unavailable Gordon EID, Chrissy Garcia Attending Clinician [phone] Man VEGA, Heather Raymundo Attending Clinician Unavailable Yazan EID, Arcenio Attending Clinician Bruce Guardado MD, Huy Mcmullen Attending Clinician [phone] Eduardo EID, Alivia Attending Clinician ESTHER BRAR Attending Clinician Unavailable AGUSTÍN EDEN Attending Clinician Unavailable Provider, Ang [facility] Attending Clinician Unavailable Katty GEOSPATIAL DEVELOPER, Lissette Attending Clinician Faby Luna PA-C Attending Clinician Lui Wu MD Attending Clinician Supa GEOSPATIAL DEVELOPER, Steve Mcmullen Attending Clinician Agustín Eden MD Attending Clinician FABY LUNA Attending Clinician Unavailable ADAM BRISENO Attending Clinician Unavailable Adam Briseno MD Attending Clinician Champion_P Admitting Clinician Unavailable PAT JARVIS Admitting Clinician Unavailable RAJAT NORIEGA Admitting Clinician Unavailable Rajat Noriega MD Admitting Clinician Bruce Guardado MD, Huy Mcmullen Admitting Clinician [phone] AGUSTÍN EDEN Admitting Clinician Unavailable FABY LUNA Admitting Clinician Unavailable Payers Payer Name Policy Type Policy Number Effective Date Expiration Date S ourmarky HUMANA MEDICARE [id number] 2022 ADVANTAGE HMO 00:00:00 HUMANA MEDICARE MB [id number] ADVANTAGE [employer]ARP [id number] 2019 MEDICARE ADVANTAGE 00:00:00 HU[employer]NA MEDICARE 7 [id number] 2022 [id number] GOLD PLUS 00:00:00 2021 HUMANA - GOLD PLUS [id number] (MEDICARE REPLACEMENT HMO) Problems Condition Condition Condition Status Onset Resolution Last Treating Co mments Source Name Details Category Date Date Treatment Clinician Date Other Other Disease Active Reema fatigue fatigue 11-04 Seybold 00:00: - 00 Externa l Dizziness Dizziness Disease Active Zak sey 11-04 [place] 00:00: - 00 Externa l Arthralgia Arthralgia Disease Active 2023-0 K elsey 1-24 Seybold 00:00: - 00 Externa l Left renal Left renal Disease Active Damir phelan stone stone 1-24 Seybold 00:00: - 00 Externa l Abnormal Abnormal Disease Active Kelse y abdominal abdominal 1-[address] scan CT scan 00:00: - 00 Externa l Yeast Yeast Disease Active Reema infection infection 1-24 Seyb old 00:00: - 00 Externa l History of History of Disease Active Damir phelan kidney kidney 1-24 [place] stones stones 00:00: - 00 Externa l 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 2021-10 Zak sey with with 2-19 [place] diabetic diabetic 00:00: [...] Externa l 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 9-20 Se ybold to to 00:00: - conditions conditions 00 Ex terna classified classified l elsewhere elsewhere Adrenal Adrenal Disease Active Reema insufficie insufficie 9-13 Se ybold ncy ncy 00:00: - 00 Externa l Primary Primary Disease Active Reema hypertensi hypertensi 9-13 Se ybold on on 00:00: - 00 Externa l Migraine Migraine Disease Active Kelse y with aura with aura 9-06 Seyb old and and 00:00: - without without 00 Externa status status l migrainosu migrainosu s, not s, not intractabl intractabl e e Morbid Morbid Disease Active Reema obesity obesity 7-05 Seybold 00:00: - 00 Externa l Controlled Controlled Disease Active Damir phelan type 2 type 2 6-29 [facility] diabetes diabetes 00:00: - mellitus mellitus 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, with on, with long-term long-term current current use of use of insulin insulin Hyperlipid Hyperlipid Disease Active K elsetaylor emmary kay emia 5-17 Seybold 00:00: - 00 Externa l 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 4-19 Seybol d mellitus mellitus 00:00: - without without 00 Externa complicati complicati l on, with on, 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 retirement Disease Active Zak sey current current 4-19 [place] use of use of 00:00: - insulin insulin 00 Externa l Hypothyroi Hypothyroi Disease Active K elsey dism dism 4-19 [place] (acquired) (acquired) 00:00: - 00 Externa l 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 419 Se ybold in in 00:00: - remission remission 00 Exte rna l Acquired Acquired Disease Active Unive rs hypothyroi hypothyroi 6-09 it y of dism dism 00:00: Medical Branch Dyslipidem Dyslipidem Disease Active U susanneers ia ia 6-09 ity of 00:00: Medical Branch Vitamin D Vitamin D Disease Active Uni vers deficiency deficiency 5-06 it y of 00:00: Medical Branch Elevated Elevated Disease Active Unive rs liver liver 5-05 ity of enzymes enzymes 00:00: Medical Branch Uncontroll Uncontroll Disease Active U nivboy ed type 2 ed type 2 4-20 ity of diabetes diabetes 00:00: [place] mellitus mellitus 00 Medica l with with Branch insulin insulin therapy therapy DKA, type DKA, type Disease Active Uni vers 2, not at 2, not at 4-20 ity of goal goal 00:00: Medical Branch Lumbar Lumbar Disease Active Overview: Univer s spondylosi spondylosi 7 Formattin ity of s s 00:00: g of this note Medical might be Branch different from the original. Added automatic ally from request for surgery [id number] Body mass Body Mass Problem Active Cheo ston index 30+ Index 30+ 5-28 Metr o - obesity - Obesity 00:00: Urol ogy 00 Kidney Kidney Problem Active [place] stone Stone 5- [facility] 00:00: Urology 00 Menorrhagi Menorrhagi Disease Active U nivers a with a with 2-28 [place] of irregular irregular 00:[place] cycle 00 [place] Obesity Obesity Disease Active Univers with body with body 2-27 [place]y of mass index [place] 30 [place] 30 or 00 [facility] greater greater Branch Intramural Intramural Disease Active [...] of human human 00:00: g of this [place] papillomav papillomav 00 note Me dical irus (HPV) irus (HPV) might be Branch DNA test DNA test different positive positive from the original. 10/28/18 - pap smear normal; HPV 16 positive - colposcop y normal. ECC benign. 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 1-17 ity of 00:00: [place] [facility] Bilateral Bilateral Disease Active Uni vers lower lower 7-20 [place]y of extremity extremity [place] edema edema [place] Overweight Overweight Disease Active U nivers (BMI (BMI 7-20 ity of 25.0-29.9) 25.0-29.9) [place] [facility] [place] Hydronephr Hydronephr Problem Active [place] osis osis 3-14 [facility] 00:00: Urology Low back Low Back Problem Active [place] pain Pain 3-14 [facility] 00:00: Urology 00 History of History of Problem Active [place] urinary Urinary 3-14 [facility] stone Stone 00:00: Urology 00 Bladder Bladder Problem Active [place] muscle Muscle 3-14 [facility] dysfunctio Dysfunctio 00:00: Ur ology n - n - 00 overactive Overactive Loss of Loss of Disease Active [facility] [place] [facility] muscle muscle 3-14 ity of tone of tone of 00:00: [place] bladder bladder 00 [facility] Staph skin Staph skin Disease Active [facility] Pred[facility]ete Prediabete Disease [facility] No known No known Disease Kelse y active active [facility] problems problems Allergies, Adverse Reactions, Alerts Allergy Allergy Status Severity Reaction(s) Onset Inactive Treating Comm ents Source Name Type Date Date Clinician Lamotrig Propensi Active Other (See Alexandre benitez ty to Comments) 10-[address] adverse 00:00: Syndrome [facility]osp[facility] reaction 00 l s to drug Sulfa Propensi Active Rash Methodi (Sulfona ty to 10-27 st mide adverse 00:00: Hospita Antibiot reaction 00 l ics) s to drug Tobramyc Propensi Active Rash Method i in ty to 10-27 st adverse 00:00: Hospita reaction 00 l s to drug Bupropio Propensi Active 2019-10 Other Reema n ty to 20 reaction( Seybold adverse 00:00: s): - reaction 00 Unknown Externa s l Gabapent Propensi Active 2019-10 Other Reema in ty to 20 reaction( [place] adverse 00:00: s): - reaction 00 Unknown Externa s l Lamotrig Propensi Active Rash Alexandre benitez ty to 04-21 Supa Seybold adverse 00:00: - reaction 00 Externa s l Lamotrig Propensi Active Rash Alexandre benitez ty to 7-11 Supa [place] adverse 00:00: reaction 00 s [...] Active Rash 2017-0 Univers (Sulfona ty to 7 ity of mide adverse 00:00: [place] Antibiot reaction 00 Medica l ics) s Branch LAMOTRIG DRUG Active High Rash 2017-0 Univers INE INGREDI 7- ity of 00:00: [place] 00 Medical Branch MINOCYCL DRUG Active Rash 2017-0 Univers INE INGREDI 7- ity of 00:00: [place] 00 Medical Branch SULFA Drug Active Rash 2017-0 Univers (SULFONA Class 7- ity of MIDE 00:00: [place] ANTIBIOT 00 Medical ICS) Branch BUPROPIO DRUG Active Swelling 2017-0 Univer s N INGREDI 7- ity of 00:00: [place] 00 Medical Branch Minocycl Drug Active Rash 2013-[address] [facility] Sulfa Drug Active Rash 2012-[address] [facility] (Sulfona Allergy 6-12 throat [facility] mide 00:00: swelling Medical Antibiot 00 Center ics) Tobramyc Drug Active Rash 2012-[address] [facility] in Allergy 6-12 [facility] Center Sulfa Propensi Active Rash 2013-0 Rash and Reema Drugs ty to 6-12 throat Seybold adverse 00:00: swelling - reaction 00 Externa s l MINOCYCL Allergy Active Low Rash 2012-[address] [facility] [address] INE 6-12 [facility] Medical [facility] Center SULFA Allergy Active Low Rash 2012-[address] [facility] [address] (SULFONA 6-12 [facility] MIDE 00:00: Medical ANTIBIOT 00 Center ICS) TOBRAMYC Allergy Active Low Rash 2012-[address] [facility] [address] IN 6-12 [facility] 00[facility] Medical 00 Center Sulfa Drug Active Rash Rash and [facility] (Sulfona Allergy 03-23 throat [facility] mide 00:00: swelling Medical Antibiot 00 Center ics) Bupropio Propensi Active Other 1900-0 Reema n ty to 10-12 Seybold adverse 00:00: reaction 00 s Doxycycl Propensi Active Rash 1899-0 Reema ine ty to 10-12 Seybold Monohydr adverse 00:00: ate reaction 00 s Tobramyc Propensi Active 1900-0 Other Reema in ty to 10-12 reaction( Seybold adverse 00:00: s): - reaction 00 Unknown - Exter na s See l commentsO ther reaction( s): Unknown DOXYCYCL Allergy Active 1899-0 [facility] INE to 10-12 [facility] MONOHYDR substanc 00:00: Urolog y ATE e 00 Sulfamet Allergy Active 1900-0 [facility] hoxazole to 10-12 [facility] substanc 00:00: Urology e 00 TOBRAMYC Allergy Active 1900-0 [facility] IN to 10-12 [facility] substanc 00:00: Urology e 00 Wellbutr Allergy Active 1900-0 [place] in Sr to 10-12 [facility] substanc 00:00: Urology e 00 Bupropio Drug Active Other - See 1900-0 Uni vers n Hcl Allergy comments 10-12 ity of 00:00: [place] [facility] Sulfamet Drug Active Other - See 1900-0 Uni vers hoxazole Allergy comments 10-12 ity o f 00:00: Medical Branch Tobramyc Drug Active Unknown - 1900-0 Unive rs in Allergy See comments 10-12 ity of 00:00: [place] [facility] BUPROPIO DRUG Active Other-Cmnt 1900-0 Univ ers N HCL INGREDI 10-12 ity of 00:00: [place] [facility] SULFAMET DRUG Active Other-Cmnt 1900-0 Univ ers HOXAZOLE INGREDI 10-12 ity of 00:00: [place] [facility] TOBRAMYC DRUG Active Unknown-Cmnt 1900-0 Un fernanda IN INGREDI 10-12 ity of 00:00: [place] 00 Medical Branch Social History Social Habit Start Date Stop Date Quantity Comments Source Tobacco use and 2022-10-27 2022-10-27 Smokeless tobacco [facility] exposure 00:00:00 00:00:00 non-user Alcohol intake 2022-10-27 2022-10-27 Ex-drinker [facility] 00:00:00 00:00:00 (finding) Exposure to 2022-10-05 2022-10-15 Not sure [facility]-CoV-2 00:00:00 15:18:00 [facility] (event) Branch Sex [birth year] At [birth year] [facility] 00:00:00 00:00:00 Smoking Status Start Date Stop Date Source Tobacco smoking consumption unknown [facility] Never smoked tobacco Reema Seyb old - External Medications Ordered Filled Start Stop Current Ordering Indication Dosage Frequency Signature Comments Components Source Medication Medication Date Date Medication? Clinician (SIG) Name Name Aspirin 81 Yes 81mg Take 81 mg K elsey MG oral 2-08 by mouth [place] Chewable 14:00: daily - Tablet 02 Externa l Insulin Yes [id number] 63 units K elsey Glargine 2-06 sc every Seybold (Lantus 00:00: day - SoloStar) 00 Externa 100 UNIT/ML l subcutaneou s Solution Pen-injecto r albuterol albuterol No albuterol [place] sulfate HFA sulfate HFA 2-03 sulfate [facility] 90 90 00:00: HFA 90 Urology mcg/actuati mcg/actuati 00 mcg/actuat on aerosol on aerosol ion inhaler inhaler aerosol INHALE 2 INHALE 2 inhaler PUFFS BY PUFFS BY INHALE 2 MOUTH EVERY MOUTH EVERY PUFFS BY 6 HOURS 6 HOURS MOUTH NEEDED FOR NEEDED FOR EVERY 6 SHORTNESS SHORTNESS HOURS OF BREATH OF BREATH NEEDED FOR OR WHEEZING OR WHEEZING SHORTNESS OF BREATH OR WHEEZING Clonazepam Yes [id number] .125mg Q.5D Take 1 Reema 0.125 MG 1-30 tablet Seybold oral TABLET 00:00: (0.125 mg - DISPERSIBLE 00 total) by Ext mery mouth 2 l times daily as needed Hydrocortis Yes [id number] 20 mg Reema one 10 MG 1-30 every am Seybol d oral Tablet 00:00: and 10 mg - 00 every Externa night l Fluconazole 2022-0 2022- Yes [id number] 150mg Take 1 Reema 150 MG oral -24 -25 tablet Seybo ld Tablet 00:00: 05:59 (150 mg - 00 :00 total) by Externa mouth once l for 1 dose Clonazepam 2022-0 Yes [id number] .125mg Q.5D Take 1 Reema 0.125 MG -17 tablet Seybold oral TABLET 00:00: (0.125 mg - DISPERSIBLE 00 total) by Ext mery mouth 2 l times daily as needed Simvastatin 2022-0 2022- No [id number] 20mg Take 1 Reema 20 MG oral -17 -24 tablet (20 Se ybold Tablet 00:00: 00:00 mg total) - 00 :00 by mouth Externa nightly l ondansetron 2022-0 Yes 4mg Q8H Take 1 Meth ming ODT 1-16 tablet (4 st (ZOFRAN-ODT 00:00: mg total) H ospita ) 4 MG 00 by mouth l disintegrat every 8 ing tablet (eight) hours as needed for nausea or vomiting. cyclobenzap 2022-0 2022- Yes 10mg Q.5D Take 1 Met hodi rine -16 -16 tablet (10 st (FLEXERIL) 00:00: 05:59 mg total) H ospita 10 mg 00 :00 by mouth 2 l tablet (two) times a day as needed for muscle spasms for up to 30 days. ibuprofen 2022-0 2022- Yes 600mg Q6H Take 1 Meth ming (ADVIL) 600 -16 -[address] MG tablet 00:00: 05:59 (600 mg Hosp john 00 :00 total) by l mouth every 6 (six) hours as needed for mild pain for up to 30 days. Valacyclovi 2022-0 Yes [id number] TAKE 1 Reema r HCl 500 1-11 TABLET(500 Seyb old MG oral 00:00: MG) BY - Tablet 00 MOUTH Externa DAILY l NEEDED FOR HERPES OR BREAKOUTS Metformin 2022-0 Yes [id number] 1000mg Take 1 Reema HCl 1000 MG 1-11 tablet Seybol d oral Tablet 00:00: (1,000 mg - 00 total) by Externa mouth in l the morning and 1 tablet (1,000 mg total) in the evening. Take with meals. Trazodone 0 Yes [id number] 50mg Take 1 K elsey HCl 50 MG 1-11 tablet (50 Seyb old oral Tablet 00:00: mg total) - 00 by mouth Externa every day l at 5:00 PM Valacyclovi 2022-0 Yes [id number] TAKE 1 Reema r HCl 500 1-11 TABLET(500 Seyb old MG oral 00:00: MG) BY - Tablet 00 MOUTH Externa DAILY l NEEDED FOR HERPES OR BREAKOUTS Metformin 0 Yes [id number] 1000mg Take 1 Reema HCl 1000 MG 1-11 tablet Seybol d oral Tablet 00:00: (1,000 mg - 00 total) by Externa mouth in l the morning and 1 tablet (1,000 mg total) in the evening. Take with meals. Trazodone Yes [id number] 50mg Take 1 K elsey HCl 50 MG 1-11 tablet (50 Seyb old oral Tablet 00:00: mg total) - 00 by mouth Externa every day l at 5:00 PM Hydrocortis 2022-0 2022- No [id number] Takes 3 Reema one 5 MG 10-2224 tablets po Seyb old oral Tablet 00:00: 00:00 Q AM and 1 - 00 :00 tablet po Externa Q PM l levoFLOXaci 0 Yes [id number] 750mg Take 1 Reema n 09 tablet Seybold (Levaquin) 00:00: (750 mg - 750 MG oral 00 total) by Ext mery Tablet mouth l daily guaiFENesin 0 Yes 5mL Q.[id number] Take 5 mL Reema -Codeine 10-20 [id number] by mouth 3 Seybold (Cheratussi 00:00: 3D times - n AC) 00 daily as Externa 100-10 needed for l MG/5ML oral cough Syrup levoFLOXaci 2022-0 2022- No [id number] 750mg Take 1 Reema n 10-20 tablet Seybold (Levaquin) 00:00: 00:00 (750 mg - 750 MG oral 00 :00 total) by Ext mery Tablet mouth l daily Promethazin 2022-0 2022- No 5mL Q4H Take 5 mL Reema e-Codeine 10-20 by mouth Seybo ld 6.25-10 00:00: 00:00 every 4 - MG/5ML oral 00 :00 hours as Exte rna Syrup needed for l cough predniSONE 3-0 Yes [id number] 40mg Take 2 U nivers 20 mg 1-04 tablets by ity of tablet 00:00: mouth in [place] 00 the Medical morning. Branch For 7 days then 1 / day for 7 days predniSONE 2023-0 Yes [id number] 40mg Take 2 U nivers 20 mg 1-04 tablets by ity of tablet 00:00: mouth in [place] 00 the Medical morning. Branch For 7 days then 1 / day for 7 days promethazin 2023-0 Yes [id number] 5mL Take 5 mL Univers e-dextromet 1-04 by mouth 4 it y of horphan 00:00: (four) [place] 6.25-15 00 times Medical mg/5 mL daily. Branch syrup predniSONE 3-0 Yes [id number] 40mg Take 2 U nivers 20 mg 1-04 tablets by ity of tablet 00:00: mouth in [place] 00 the Medical morning. Branch For 7 days then 1 / day for 7 days promethazin 2023-0 Yes [id number] 5mL Take 5 mL Univers e-dextromet 1-04 by mouth 4 it y of horphan 00:00: (four) [place] 6.25-15 00 times Medical mg/5 mL daily. Branch syrup predniSONE 3-0 Yes [id number] 40mg Take 2 U nivers 20 mg 1-04 tablets by ity of tablet 00:00: mouth in [place] 00 the Medical morning. Branch For 7 days then 1 / day for 7 days phenylephri 3-0 Yes [id number] 5mL Take 5 mL U nivers ne-prometha 1-04 by mouth 4 it y of zine-codein 00:00: (four[place] 6.25-5-10 00 times Medical mg/5 mL daily as Branch syrup needed for Cough. Indication s: acute pain promethazin 2023-0 Yes [id number] 5mL Take 5 mL Univers e-dextromet 1-04 by mouth 4 it y of horphan 00:00: (four) [place] 6.25-15 00 times Medical mg/5 mL daily. Branch syrup predniSONE 2023-0 Yes [id number] 40mg Take 2 U nivers 20 mg 1-04 tablets by ity of tablet 00:00: mouth in [place] 00 the Medical morning. Branch For 7 days then 1 / day for 7 days phenylephri 2023-0 Yes [id number] 5mL Take 5 mL U nivers ne-prometha 1-04 by mouth 4 it y of zine-codein 00:00: (four[place] 6.25-5-10 00 times Medical mg/5 mL daily as Branch syrup needed for Cough. Indication s: acute pain promethazin 3-0 Yes [id number] 5mL Take 5 mL Univers e-dextromet 1-04 by mouth 4 it y of horphan 00:00: (four) [place] 6.25-15 00 times Medical mg/5 mL daily. Branch syrup predniSONE 2022-0 Yes [id number] 40mg Take 2 U nivers 20 mg 1-04 tablets by ity of tablet 00:00: mouth in [place] 00 the Medical morning. Branch For 7 days then 1 / day for 7 days phenylephri 3-0 Yes [id number] 5mL Take 5 mL U nivers ne-prometha 1-04 by mouth 4 it y of zine-codein 00:00: (four[place] 6.25-5-10 00 times Medical mg/5 mL daily as Branch syrup needed for Cough. Indication s: acute pain promethazin 3-0 Yes [id number] 5mL Take 5 mL Univers e-dextromet 1-04 by mouth 4 it y of horphan 00:00: (four) [place] 6.25-15 00 times Medical mg/5 mL daily. Branch syrup predniSONE 3-0 Yes [id number] 40mg Take 2 U nivers 20 mg 1-04 tablets by ity of tablet 00:00: mouth in [place] 00 the Medical morning. Branch For 7 days then 1 / day for 7 days phenylephri 2023-0 Yes [id number] 5mL Take 5 mL U nivers ne-prometha 1-04 by mouth 4 it y of zine-codein 00:00: (four[place] 6.25-5-10 00 times Medical mg/5 mL daily as Branch syrup needed for Cough. Indication s: acute pain phenylephri 2023-0 2023- Yes [id number] 5mL Take 5 mL Univers ne-prometha -12 by mouth 4 i ty of [...] 7 days. Indication s: acute pain phenylephri 2022-0 2022- Yes [id number] 5mL Take 5 mL Univers ne-prometha -10-23 by mouth 4 i ty of zine-codein 00:00: 05:59 (four) [place] 6.25-5-10 00 :00 times Medical mg/5 mL daily as Branch syrup needed for Cough for up to 7 days. Indication s: acute pain predniSONE 3-0 2023- No [id number] 40mg Take 2 Univers 20 mg 10-15 tablets by ity of tablet 00:00: 00:00 mouth in [place] 00 :00 the Medical morning. Branch For 7 days then 1 / day for 7 days phenylephri 3-0 2023- No [id number] 5mL Take 5 mL Univers ne-prometha 10-15 by mouth 4 i ty of zine-codein 00:00: 00:00 (four) [place] 6.25-5-10 00 :00 times Medical mg/5 mL daily as Branch syrup needed for Cough for up to 7 days. Indication s: acute pain Clonazepam 3-0 Yes [id number] .125mg Q.5D Take 1 Reema 0.125 MG 1-03 tablet [place]bold oral TABLET 00:00: (0.125 mg - DISPERSIBLE 00 total) by Ext mery mouth 2 l times daily as needed Trazodone 3-0 Yes [id number] TAKE ONE Reema HCl 50 MG 1-03 TABLET BY Seybo ld oral Tablet 00:00: MOUTH - 00 EVERY Externa EVENING l promethazin 2021-10- Yes [id number] 5mL Take 5 mL Univers e-dextromet - by mouth 4 i ty of horphan 00:00: 05:59 (four) [place] 6.25-15 00 :00 times Medical mg/5 mL daily for Branch syrup 7 days. promethazin 2021-10- Yes [id number] 5mL Take 5 mL Univers e-dextromet 10-18 by mouth 4 i ty of horphan 00:00: 05:59 (four) [place] 6.25-15 00 :00 times Medical mg/5 mL daily for Branch syrup 7 days. promethazin 2021-10- Yes [id number] 5mL Take 5 mL Univers e-dextromet 10-18 by mouth 4 i ty of horphan 00:00: 05:59 (four) [place] 6.25-15 00 :00 times Medical mg/5 mL daily for Branch syrup 7 days. promethazin 2021-10- No [id number] 5mL Take 5 mL Univers e-dextromet 10-15 by mouth 4 i ty of horphan 00:00: 00:00 (four) [place] 6.25-15 00 :00 times Medical mg/5 mL daily for Branch syrup 7 days. ipratropium 2021-10- Yes [id number] 3mL U nivers -albuteroL 12-30 ity of (DUONEB) 23:15: 11:14 [place] 0.5 mg-3 00 :00 Medical mg(2.5 mg Branch base)/3 mL nebulizer solution 3 mL ipratropium 2021-10- Yes [id number] 3mL U nivers -albuteroL 12-30 ity of (DUONEB) 23:15: 11:14 [place] 0.5 mg-3 00 :00 Medical mg(2.5 mg Branch base)/3 mL nebulizer solution 3 mL ipratropium 2021-10- Yes [id number] 3mL U nivers -albuteroL 12-30 ity of (DUONEB) 23:15: 11:14 [place] 0.5 mg-3 00 :00 Medical mg(2.5 mg Branch base)/3 mL nebulizer solution 3 mL ipratropium 2021-10- Yes [id number] 3mL U nivers -albuteroL 10-10 ity of (DUONEB) 23:15: 11:14 [place] 0.5 mg-3 00 :00 Medical mg(2.5 mg Branch base)/3 mL nebulizer solution 3 mL ipratropium 2021-10- No [id number] 3mL U nivers -albuteroL 10-09 ity of (DUONEB) 23:15: 22:30 [place] 0.5 mg-3 00 :00 Medical mg(2.5 mg Branch base)/3 mL nebulizer solution 3 mL ipratropium 2021-10- No [id number] 3mL 3 mL, Univers -albuteroL 10-09 Inhalation it y of (DUONEB) 23:15: 22:30 , ONCE, 1 [place] 0.5 mg-3 00 :00 dose, On Medical mg(2.5 mg Carlyn Branch base)/3 mL 10/09/22 nebulizer at 1715, solution 3 Routine mL HYDROcodone 2021-10- No hydrocodon Univers -acetaminop 10-09 e 10 ity of hen 10-325 14:04: 00:00 mg-acetami [place] mg tablet 56 :00 nophen 325 Medi owen mg tablet Branch HYDROcodone 2021-10- No hydrocodon Univers -acetaminop 10-09 e 10 ity of hen 10-325 14:04: 00:00 mg-acetami [place] mg tablet 56 :00 nophen 325 Medi owen mg tablet Branch HYDROcodone 2021-10- No hydrocodon Univers -acetaminop 10-09 e 10 ity of hen 10-325 14:04: 00:00 mg-acetami [place] mg tablet 56 :00 nophen 325 Medi owen mg tablet Branch HYDROcodone 2021-10- No hydrocodon Univers -acetaminop 10-09 e 10 ity of hen 10-325 14:04: 00:00 mg-acetami [place] mg tablet 56 :00 nophen 325 Medi owen mg tablet Branch HYDROcodone 2021-10- No hydrocodon Univers -acetaminop 10-09 e 10 ity of hen 10-325 14:04: 00:00 mg-acetami [place] mg tablet 56 :00 nophen 325 Medi owen mg tablet Branch HYDROcodone 2021-10- No hydrocodon Univers -acetaminop -10-09 e 10 ity of hen 10-325 14:04: 00:00 mg-acetami [place] mg tablet 56 :00 nophen 325 Medi owen mg tablet Branch HYDROcodone 2021-10- No hydrocodon Univers -acetaminop 10-09 e 10 ity of hen 10-325 14:04: 00:00 mg-acetami [place] mg tablet 56 :00 nophen 325 Medi owen mg tablet Branch albuterol 2021-10 Yes [id number] 2{puff} Inhale 2 Univers 90 2-29 Puffs [...] Cough. Indication s: cough albuterol 2021-10 Yes [id number] 2{puff} Inhale 2 Univers 90 2-29 Puffs ity of mcg/actuati 00:00: every 6 [place] as on inhaler 00 (six) Medical hours as Branch needed for Shortness of Breath or Wheezing. albuterol 2021-10 Yes [id number] 2{puff} Inhale 2 Univers 90 2-29 Puffs [...] Cough. Indication s: cough albuterol 2021-10 Yes [id number] 2{puff} Inhale 2 Univers 90 2-29 Puffs ity of mcg/actuati 00:00: every 6 [place] as on inhaler 00 (six) Medical hours as Branch needed for Shortness of Breath or Wheezing. benzonatate 2021-10 Yes [id number] 200mg Take 2 Univers 100 mg 2-29 capsules ity of capsule 00:00: by mouth [place] [id number] every 8 Medical (eight) Branch hours as needed for Cough. codeine-gua 2021-10 Yes 10mL Take 10 mL Univers ifenesin 2-29 by mouth ity of 10-100 mg/5 00:00: at [place] mL oral 00 bedtime. Medical solution Indication Branc h s: cough albuterol 2021-10 Yes [id number] 2{puff} Inhale 2 Univers 90 2-29 Puffs ity of mcg/actuati 00:00: every 6 [place] as on inhaler 00 (six) Medical hours as Branch needed for Shortness of Breath or Wheezing. benzonatate 2021-10 Yes [id number] 200mg Take 2 Univers 100 mg 2-29 capsules ity of capsule 00:00: by mouth [place] [address] every 8 Medical (eight) Branch hours as needed for Cough. codeine-gua 2021-10 Yes 10mL Take 10 mL Univers ifenesin 2-29 by mouth ity of 10-100 mg/5 00:00: at [facility] oral 00 bedtime. Medical solution Indication Branc h s: cough albuterol 2021-10 Yes [id number] 2{puff} Inhale 2 Univers 90 2-29 Puffs ity of mcg/actuati 00:00: every 6 [place] as on inhaler 00 (six) Medical hours as Branch needed for Shortness of Breath or Wheezing. benzonatate 2021-10 Yes [id number] 200mg Take 2 Univers 100 mg 2-29 capsules ity of capsule 00:00: by mouth [place] [address] every 8 Medical (eight) Branch hours as needed for Cough. codeine-gua 2021-10 Yes 10mL Take 10 mL Univers ifenesin 2-29 by mouth ity of 10-100 mg/5 00:00: at [place] mL oral 00 bedtime. Medical solution Indication Branc h s: cough albuterol 2021-10 Yes [id number] 2{puff} Inhale 2 Univers 90 2-29 Puffs ity of mcg/actuati 00:00: every 6 [place] as on inhaler 00 (six) Medical hours as Branch needed for Shortness of Breath or Wheezing. benzonatate 2021-10 Yes [id number] 200mg Take 2 Univers 100 mg 2-29 capsules ity of capsule 00:00: by mouth [place] 00 every 8 Medical (eight) Branch hours as needed for Cough. codeine-gua 2021-10 Yes 10mL Take 10 mL Univers ifenesin 2-29 by mouth ity of 10-100 mg/5 00:00: at [place] mL oral 00 bedtime. Medical solution Indication Branc h s: cough albuterol 2021-10 Yes [id number] 2{puff} Inhale 2 Univers 90 2-29 Puffs ity of mcg/actuati 00:00: every 6 [place] as on inhaler 00 (six) Medical hours as Branch needed for Shortness of Breath or Wheezing. benzonatate 2021-10 Yes [id number] 200mg Take 2 Univers 100 mg 2-29 capsules ity of capsule 00:00: by mouth [place] 00 every 8 Medical (eight) Branch hours as needed for Cough. codeine-gua 2021-10 Yes 10mL Take 10 mL Univers ifenesin 2-29 by mouth ity of 10-100 mg/5 00:00: at [place] mL oral 00 bedtime. Medical solution Indication Branc h s: cough albuterol 2021-10 Yes [id number] 2{puff} Inhale 2 Univers 90 2-29 Puffs [...] Cough. Indication s: cough benzonatate 2021-10 Yes [id number] 200mg Take 2 Univers 100 mg 2-29 capsules ity of capsule 00:00: by mouth [place] 00 every 8 Medical (eight) Branch hours as needed for Cough. codeine-gua 2021-10 Yes 10mL Take 10 mL Univers ifenesin 2-29 by mouth ity of 10-100 mg/5 00:00: at [place] mL oral 00 bedtime. Medical solution Indication Branc h s: cough albuterol 2021-10 Yes [id number] 2{puff} Inhale 2 Univers 90 2-29 Puffs ity of mcg/actuati 00:00: every 6 [place] as on inhaler 00 (six) Medical hours as Branch needed for Shortness of Breath or Wheezing. benzonatate 2021-10 Yes [id number] 200mg Take 2 Univers 100 mg 2-29 capsules ity of capsule 00:00: by mouth [place] 00 every 8 Medical (eight) Branch hours as needed for Cough. albuterol 2021-10 Yes [id number] 2{puff} Inhale 2 Univers 90 2-29 Puffs ity of mcg/actuati 00:00: every 6 [place] as on inhaler 00 (six) Medical hours as Branch needed for Shortness of Breath or Wheezing. benzonatate 2021-10 Yes [id number] 200mg Take 2 Univers 100 mg 2-29 capsules ity of capsule 00:00: by mouth [place] 00 every 8 Medical (eight) Branch hours as needed for Cough. albuterol 2021-10 Yes [id number] 2{puff} Inhale 2 Univers 90 2-29 Puffs ity of mcg/actuati 00:00: every 6 [place] as on inhaler 00 (six) Medical hours as Branch needed for Shortness of Breath or Wheezing. benzonatate 2021-10 Yes [id number] 200mg Take 2 Univers 100 mg 2-29 capsules ity of capsule 00:00: by mouth [place] 00 every 8 Medical (eight) Branch hours as needed for Cough. albuterol 2021-10 Yes [id number] 2{puff} Inhale 2 Univers 90 2-29 Puffs ity of mcg/actuati 00:00: every 6 [place] as on inhaler 00 (six) Medical hours as Branch needed for Shortness of Breath or Wheezing. benzonatate 2021-10 Yes [id number] 200mg Take 2 Univers 100 mg 2-29 capsules ity of capsule 00:00: by mouth [place] 00 every 8 Medical (eight) Branch hours as needed for Cough. albuterol 2021-10 Yes [id number] 2{puff} Inhale 2 Univers 90 2-29 Puffs ity of mcg/actuati 00:00: every 6 [place] as on inhaler 00 (six) Medical hours as Branch needed for Shortness of Breath or Wheezing. benzonatate 2021-10 Yes [id number] 200mg Take 2 Univers 100 mg 2-29 capsules ity of capsule 00:00: by mouth [place] 00 every 8 Medical (eight) Branch hours as needed for Cough. albuterol 2021-10 Yes [id number] 2{puff} Inhale 2 Univers 90 2-29 Puffs ity of mcg/actuati 00:00: every 6 [place] as on inhaler 00 (six) Medical hours as Branch needed for Shortness of Breath or Wheezing. benzonatate 2021-10 Yes [id number] 200mg Take 2 Univers 100 mg 2-29 capsules ity of capsule 00:00: by mouth [place] [address] every 8 Medical (eight) Branch hours as needed for Cough. albuterol 2021-10 Yes [id number] 2{puff} Inhale 2 Univers 90 2-29 Puffs ity of mcg/actuati 00:00: every 6 [place] as on inhaler 00 (six) Medical hours as Branch needed for Shortness of Breath or Wheezing. benzonatate 2021-10 Yes [id number] 200mg Take 2 Univers 100 mg 2-29 capsules ity of capsule 00:00: by mouth [place] 00 every 8 Medical (eight) Branch hours as needed for Cough. albuterol 2021-10 Yes [id number] 2{puff} Inhale 2 Univers 90 2-29 Puffs ity of mcg/actuati 00:00: every 6 [place] as on inhaler 00 (six) Medical hours as Branch needed for Shortness of Breath or Wheezing. benzonatate 2021-10 Yes [id number] 200mg Take 2 Univers 100 mg 2-29 capsules ity of capsule 00:00: by mouth [place] [address] every 8 Medical (eight) Branch hours as needed for Cough. amoxicillin 2021-10- Yes [id number] 1{tbl} Take 1 Univers -clavulanat 2-29 01-06 tablet by it y of e 00:00: 05:59 mouth in [place] (AUGMENTIN) 00 :00 the Medical 875-125 mg morning Branch per tablet and 1 tablet in the evening. Do all this for 7 days. amoxicillin 2021-10- Yes [id number] 1{tbl} Take 1 Univers -clavulanat 2-29 -06 tablet by it y of e 00:00: 05:59 mouth in [place] (AUGMENTIN) 00 :00 the Medical 875-125 mg morning Branch per tablet and 1 tablet in the evening. Do all this for 7 days. amoxicillin 2021-10- Yes [id number] 1{tbl} Take 1 Univers -clavulanat 2-29 01-06 tablet by it y of e 00:00: 05:59 mouth in [place] (AUGMENTIN) 00 :00 the Medical 875-125 mg morning Branch per tablet and 1 tablet in the evening. Do all this for 7 days. amoxicillin 2021-10- Yes [id number] 1{tbl} Take 1 Univers -clavulanat 2-29 01-06 tablet by it y of e 00:00: 05:59 mouth in [place] (AUGMENTIN) 00 :00 the Medical 875-125 mg morning Branch per tablet and 1 tablet in the evening. Do all this for 7 days. amoxicillin 2021-10- Yes [id number] 1{tbl} Take 1 Univers -clavulanat 2-29 -06 tablet by it y of e 00:00: 05:59 mouth in [place] (AUGMENTIN) 00 :00 the Medical 875-125 mg morning Branch per tablet and 1 tablet in the evening. Do all this for 7 days. amoxicillin 2021-10- Yes [id number] 1{tbl} Take 1 Univers -clavulanat 2-29 -06 tablet by it y of e 00:00: 05:59 mouth in [place] (AUGMENTIN) 00 :00 the Medical 875-125 mg morning Branch per tablet and 1 tablet in the evening. Do all this for 7 days. amoxicillin 2021-10- Yes [id number] 1{tbl} Take 1 Univers -clavulanat 2-29 -06 tablet by it y of e 00:00: 05:59 mouth in [place] (AUGMENTIN) 00 :00 the Medical 875-125 mg morning Branch per tablet and 1 tablet in the evening. Do all this for 7 days. amoxicillin 2021-10- Yes [id number] 1{tbl} Take 1 Univers -clavulanat 2-29 01-06 tablet by it y of e 00:00: 05:59 mouth in [place] (AUGMENTIN) 00 :00 the Medical 875-125 mg morning Branch per tablet and 1 tablet in the evening. Do all this for 7 days. amoxicillin 2021-10- Yes [id number] 1{tbl} Take 1 Univers -clavulanat 2-29 -06 tablet by it y of e 00:00: 05:59 mouth in [place] (AUGMENTIN) 00 :00 the Medical 875-125 mg morning Branch per tablet and 1 tablet in the evening. Do all this for 7 days. amoxicillin 2021-10- Yes [id number] 1{tbl} Take 1 Univers -clavulanat 2-29 -06 tablet by it y of e 00:00: 05:59 mouth in [place] (AUGMENTIN) 00 :00 the Medical 875-125 mg morning Branch per tablet and 1 tablet in the evening. Do all this for 7 days. amoxicillin 2021-10- Yes [id number] 1{tbl} Take 1 Univers -clavulanat 2-29 -06 tablet by it y of e 00:00: 05:59 mouth in [place] (AUGMENTIN) 00 :00 the Medical 875-125 mg morning Branch per tablet and 1 tablet in the evening. Do all this for 7 days. amoxicillin 2021-10- Yes [id number] 1{tbl} Take 1 Univers -clavulanat 2-29 -06 tablet by it y of e 00:00: 05:59 mouth in [place] (AUGMENTIN) 00 :00 the Medical 875-125 mg morning Branch per tablet and 1 tablet in the evening. Do all this for 7 days. amoxicillin 2021-10- Yes [id number] 1{tbl} Take 1 Univers -clavulanat 2-29 -06 tablet by it y of e 00:00: 05:59 mouth in [place] (AUGMENTIN) 00 :00 the Medical 875-125 mg morning Branch per tablet and 1 tablet in the evening. Do all this for 7 days. amoxicillin 2021-10- Yes [id number] 1{tbl} Take 1 Univers -clavulanat 2-29 -06 tablet by it y of e 00:00: 05:59 mouth in [place] (AUGMENTIN) 00 :00 the Medical 875-125 mg [...] solution Indication Branc h s: cough predniSONE 2021-10- No [id number] 40mg Take 2 Univers 20 mg 2-29 12-29 tablets by ity of tablet 00:00: 00:00 mouth in [place] 00 :00 the Medical morning Branch for 5 days. codeine-gua 2021-10- No 5mL Take 5 mL Univers ifenesin 2-29 12-29 by mouth ity of 10-100 mg/5 00:00: 00:00 every 6 [place] mL oral 00 :00 (six) Medical solution hours as Branch needed for Cough. Indication s: cough predniSONE 2021-10- No [id number] 40mg Take 2 Univers 20 mg 2-29 12-29 tablets by ity of tablet 00:00: 00:00 mouth in [place] 00 :00 the [facility] morning Branch for 5 days. codeine-gua 2021-10- No 5mL Take 5 mL Univers ifenesin 2-29 12-29 by mouth ity of 10-100 mg/5 00:00: 00:00 every 6 [place] mL oral 00 :00 (six) Medical solution hours as Branch needed for Cough. Indication s: cough predniSONE 2021-10- No [id number] 40mg Take 2 Univers 20 mg 2-29 12-29 tablets by ity of tablet 00:00: 00:00 mouth in [place] 00 :00 the [facility] morning Branch for 5 days. codeine-gua 2021-10- No 5mL Take 5 mL Univers ifenesin 2-29 12-29 by mouth ity of 10-100 mg/5 00:00: 00:00 every 6 [place] mL oral 00 :00 (six) Medical solution hours as Branch needed for Cough. Indication s: cough predniSONE 2021-10- No [id number] 40mg Take 2 Univers 20 mg 2-29 12-29 tablets by ity of tablet 00:00: 00:00 mouth in [place] 00 :00 the Medical morning Branch for 5 days. codeine-gua 2021-10- No 5mL Take 5 mL Univers ifenesin 2-29 12-29 by mouth ity of 10-100 mg/5 00:00: 00:00 every 6 [place] mL oral 00 :00 (six) Medical solution hours as Branch needed for Cough. Indication s: cough predniSONE 2021-10 No [id number] 40mg Take 2 Univers 20 mg 2-29 12-29 tablets by ity of tablet 00:00: 00:00 mouth in [place] 00 :00 the Medical morning Branch for 5 days. codeine-gua 2021-10- No 5mL Take 5 mL Univers ifenesin 2-29 12-29 by mouth ity of 10-100 mg/5 00:00: 00:00 every 6 [place] mL oral 00 :00 (six) Medical solution hours as Branch needed for Cough. Indication s: cough predniSONE 2021-10 No [id number] 40mg Take 2 Univers 20 mg 2-29 12-29 tablets by ity of tablet 00:00: 00:00 mouth in [place] 00 :00 the Medical morning Branch for 5 days. codeine-gua 2021-10- No 5mL Take 5 mL Univers ifenesin 2-29 12-29 by mouth ity of 10-100 mg/5 00:00: 00:00 every 6 [place] mL oral 00 :00 (six) Medical solution hours as Branch needed for Cough. Indication s: cough predniSONE 2021-10 No [id number] 40mg Take 2 Univers 20 mg 2-29 12-29 tablets by ity of tablet 00:00: 00:00 mouth in [place] 00 :00 the Medical morning Branch for 5 days. Quetiapine 2021-10 Yes [id number] 100mg Take 1 K elsey Fumarate 2-27 tablet Sey[place] 100 MG oral 00:00: (100 mg - Tablet 00 total) by Externa mouth l nightly Quetiapine 2021-10 Yes [id number] 100mg Take 1 K elsey Fumarate 2-27 tablet [place] 100 MG oral 00:00: (100 mg - Tablet 00 total) by Externa mouth l nightly Quetiapine 2021-10 Yes [id number] 100mg Take 1 K elsey Fumarate 2-27 [...] Tablet 49 Externa l Quetiapine 2021-10 Yes [id number] 100mg Take 1 K elsey Fumarate 2-19 tablet [place] 100 MG oral 00:00: (100 mg - Tablet 00 total) by Externa mouth l nightly Carvedilol 2021-10 Yes [id number] 12.5mg Take 1 Reema 12.5 MG 2-19 tablet [place] oral Tablet 00:00: (12.5 mg - 00 total) by Externa mouth in l the morning and 1 tablet (12.5 mg total) in the evening. Take with meals. Methocarbam 2021-10 Yes [id number] 750mg QD Take 1 Reema ol 750 MG 2-19 tablet [place] oral Tablet 00:00: (750 mg - 00 total) by Externa mouth l daily as needed (muscle spasm) Carvedilol 2021-10 Yes [id number] 12.5mg Take 1 Reema 12.5 MG 2-19 tablet Seybold oral Tablet 00:00: (12.5 mg - 00 total) by Externa mouth in l the morning and 1 tablet (12.5 mg total) in the evening. Take with meals. Methocarbam 2021-10 Yes [id number] 750mg QD Take 1 Reema ol 750 MG 2-19 tablet Seybold oral Tablet 00:00: (750 mg - 00 total) by Externa mouth l daily as needed (muscle spasm) Carvedilol 2021-10 Yes [id number] 12.5mg Take 1 Reema 12.5 MG 2-19 tablet Seybold oral Tablet 00:00: (12.5 mg - 00 total) by Externa mouth in l the morning and 1 tablet (12.5 mg total) in the evening. Take with meals. Carvedilol 2021-10 Yes [id number] 12.5mg Take 1 Reeam 12.5 MG 2-19 tablet Seybold oral Tablet 00:00: (12.5 mg - 00 total) by Externa mouth in l the morning and 1 tablet (12.5 mg total) in the evening. Take with meals. Methocarbam 2021-10- No [id number] 750mg QD Take 1 Reema ol 750 MG 2-19 -24 tablet Seybold oral Tablet 00:00: 00:00 (750 mg - 00 :00 total) by Externa mouth l daily as needed (muscle spasm) Clonazepam 2021-10 Yes [id number] .125mg Q.5D Take 1 Reema 0.125 MG 2-16 tablet [place] oral TABLET 00:00: (0.125 mg - DISPERSIBLE 00 total) by Ext mery mouth 2 l times daily as needed Insulin 2021-10 Yes [id number] 50 units K elsey Glargine 2-16 sc every Seybold (Lantus 00:00: day - SoloStar) 00 Externa 100 UNIT/ML l subcutaneou s Solution Pen-injecto r Insulin 2021-10 Yes [id number] 50 units K elsey Glargine 2-16 sc every Seybold (Lantus 00:00: day - SoloStar) 00 Externa 100 UNIT/ML l subcutaneou s Solution Pen-injecto r Insulin 2021-10 Yes [id number] 50 units K elsey Glargine 2-16 sc every Seybold (Lantus 00:00: day - SoloStar) 00 Externa 100 UNIT/ML l subcutaneou s Solution Pen-injecto r Aspirin 81 2021-10 Yes 81mg Take 81 mg K elsey MG oral 2-12 by mouth Seybold Chewable 14:25: daily - Tablet 33 Externa l Insulin Pen 2021-10 Yes [id number] Takes Reema Needle 31G 2-12 insulin Seybol d X 5 MM does 00:00: once daily - not apply 00 Externa Misc l Metformin 2021-10 Yes [id number] 1000mg Take 1 Reema HCl 1000 MG 2-12 tablet Seybol d oral Tablet 00:00: (1,000 mg - 00 total) by Externa mouth in l the morning and 1 tablet (1,000 mg total) in the evening. Take with meals. Insulin 2021-10 Yes [id number] Takes up K elsey Aspart 2-12 to 14 [place] (NovoLOG 00:00: units SQ - FlexPen) 00 TID before Exter na 100 UNIT/ML major l subcutaneou meals s Solution Pen-injecto r Glucose 2021-10 Yes [id number] USE 5 [place] ey Blood 2-12 TIMES Seybold (Accu-Chek 00:00: DAILY - Guide) in 00 NEEDED Exter na vitro Strip DIRECTED l Hydrocortis 2021-10 Yes [id number] Takes 3 Reema one 5 MG 2-12 tablets po Seybo ld oral Tablet 00:00: Q AM and 1 - 00 tablet po Externa Q PM l Empaglifloz 2021-10 Yes [id number] 1 tablet Reema in 2-12 po Q daily Seybold (Jardiance) 00:00: - 10 MG oral 00 Externa Tablet l Insulin Pen 2021-10 Yes [id number] Takes Reema Needle 31G 2-12 insulin Seybol d X 5 MM does 00:00: once daily - not apply 00 Externa Mis l Metformin 2021-10 Yes [id number] 1000mg Take 1 Reema HCl 1000 MG 2-12 tablet Seybol d oral Tablet 00:00: (1,000 mg - 00 total) by Externa mouth in l the morning and 1 tablet (1,000 mg total) in the evening. Take with meals. Insulin 2021-10 Yes [id number] Takes up K elsey Aspart 2-12 to 14 [place] (NovoLOG 00:00: units SQ - FlexPen) 00 TID before Exter na 100 UNIT/ML major l subcutaneou meals s Solution Pen-injecto r Glucose 2021-10 Yes [id number] USE 5 [place] ey Blood 2-12 TIMES Seybold (Accu-Chek 00:00: DAILY - Guide) in 00 NEEDED Exter na vitro Strip DIRECTED l Hydrocortis 2021-10 Yes [id number] Takes 3 Reema one 5 MG 2-12 tablets po Seybo ld oral Tablet 00:00: Q AM and 1 - 00 tablet po Externa Q PM l Empaglifloz 2021-10 Yes [id number] 1 tablet Reema in 2-12 po Q daily Seybold (Jardiance) 00:00: - 10 MG oral 00 Externa Tablet l Insulin Pen 2021-10 Yes [id number] Takes Reema Needle 31G 2-12 insulin Seybol d X 5 MM does 00:00: once daily - not apply 00 Externa Misc l Metformin 2021-10 Yes [id number] 1000mg Take 1 Reema HCl 1000 MG 2-12 tablet Seybol d oral Tablet 00:00: (1,000 mg - 00 total) by Externa mouth in l the morning and 1 tablet (1,000 mg total) in the evening. Take with meals. Insulin 2021-10 Yes [id number] Takes up K elsey Aspart 2-12 to 14 [place] (NovoLOG 00:00: units SQ - FlexPen) 00 TID before Exter na 100 UNIT/ML major l subcutaneou meals s Solution Pen-injecto r Glucose 2021-10 Yes [id number] USE 5 [place] ey Blood 2-12 TIMES Seybold (Accu-Chek 00:00: DAILY - Guide) in 00 NEEDED Exter na vitro Strip DIRECTED l Hydrocortis 2021-10 Yes [id number] Takes 3 Reema one 5 MG 2-12 tablets po Seybo ld oral Tablet 00:00: Q AM and 1 - 00 tablet po Externa Q PM l Empaglifloz 2021-10 Yes [id number] 1 tablet Reema in 2-12 po Q daily Seybold (Jardiance) 00:00: - 10 MG oral 00 Externa Tablet l Insulin 2021-10 Yes [id number] Takes up K elsey Aspart 2-12 to 14 [place] (NovoLOG 00:00: units SQ - FlexPen) 00 TID before Exter na 100 UNIT/ML major l subcutaneou meals s Solution Pen-injecto r Glucose 2021-10 Yes [id number] USE 5 [place] ey Blood 2-12 TIMES Seybold (Accu-Chek 00:00: DAILY - Guide) in 00 NEEDED Exter na vitro Strip DIRECTED l Insulin 2021-10 Yes [id number] Takes up K elsey Aspart 2-12 to 14 [place] (NovoLOG 00:00: units SQ - FlexPen) 00 TID before Exter na 100 UNIT/ML major l subcutaneou meals s Solution Pen-injecto r Glucose 2021-10 Yes [id number] USE 5 [place] ey Blood 2-12 TIMES Seybold (Accu-Chek 00:00: DAILY - Guide) in 00 NEEDED Exter na vitro Strip DIRECTED l Insulin Pen 2021-10- No [id number] Takes Reema Needle 31G 2-12 -24 insulin Seybo ld X 5 MM does 00:00: 00:00 once daily - not apply 00 :00 Externa Misc l Empaglifloz 2021-10- No [id number] 1 tablet Reema in 2-12 -24 po Q daily Seybold (Jardiance) 00:00: 00:00 - 10 MG oral 00 :00 Externa Tablet l Mupirocin 2021-10 Yes [id number] APPLY THIN Reema (BACTROBAN) 2-06 LAYER TO Seyb old 2 % apply 00:00: OPEN SORES - externally 00 ON TRUNK Exter na Ointment AND l EXTREMITIE S TWICE DAILY. Clobetasol 2021-10 Yes [id number] [place] Propionate 2-06 Seybold 0.05 % 00:00: - apply 00 Externa externally l Ointment Mupirocin 2021-10 Yes [id number] APPLY THIN Reema (BACTROBAN) 2-06 LAYER TO Seyb old 2 % apply 00:00: OPEN SORES - externally 00 ON TRUNK Exter na Ointment AND l EXTREMITIE S TWICE DAILY. Clobetasol 2021-10 Yes [id number] [place] Propionate 2-06 Seybold 0.05 % 00:00: - apply 00 Externa externally l Ointment Mupirocin 2021-10 Yes [id number] APPLY THIN Reema (BACTROBAN) 2-06 LAYER TO Seyb old 2 % apply 00:00: OPEN SORES - externally 00 ON TRUNK Exter na Ointment AND l EXTREMITIE S TWICE DAILY. Clobetasol 2021-10 Yes [id number] [place] Propionate 2-06 Seybold 0.05 % 00:00: - apply 00 Externa externally l Ointment Clobetasol 2021-10 Yes [id number] [place] Propionate 2-06 Seybold 0.05 % 00:00: - apply 00 Externa externally l Ointment Clobetasol 2021-10 Yes [id number] [place] Propionate 2-06 Seybold 0.05 % 00:00: - apply 00 Externa externally l Ointment Mupirocin 2021-10- No [id number] APPLY THIN Reema (BACTROBAN) 2-06 -24 LAYER TO Sey bold 2 % apply 00:00: 00:00 OPEN SORES - externally 00 :00 ON TRUNK Exter na Ointment AND l EXTREMITIE S TWICE DAILY. Valacyclovi 2021-10 Yes [id number] TAKE 1 Reema r HCl 500 2-05 TABLET(500 Seyb old MG oral 00:00: MG) BY - Tablet 00 MOUTH Externa DAILY l NEEDED FOR HERPES OR BREAKOUTS Valacyclovi 2021-10 Yes [id number] TAKE 1 Reema r HCl 500 2-05 TABLET(500 Seyb old MG oral 00:00: MG) BY - Tablet 00 MOUTH Externa DAILY l NEEDED FOR HERPES OR BREAKOUTS Valacyclovi 2021-10 Yes [id number] TAKE 1 Reema r HCl 500 2-05 TABLET(500 Seyb old MG oral 00:00: MG) BY - Tablet 00 MOUTH Externa DAILY l NEEDED FOR HERPES OR BREAKOUTS Accu-Chek 2021-10- USE 6 Reema Guide in 2-05 12-12 TIMES Seybold vitro Strip 00:00: 00:00 DAILY - 00 :00 NEEDED Externa DIRECTED l Clonazepam 2021-10 Yes [id number] .125mg Q.5D Take 1 Reema 0.125 MG 1-28 tablet Seybold oral TABLET 00:00: (0.125 mg - DISPERSIBLE 00 total) by Ext mery mouth 2 l times daily as needed Ibuprofen 2021-10 Yes [id number] 800mg Q.[id number] Take 1 Reema 800 MG oral 1-28 [id number] tablet Seybold Tablet 00:00: 3D (800 mg - 00 total) by Externa mouth l every 8 hours as needed for pain Ibuprofen 2021-10 Yes [id number] 800mg Q.[id number] Take 1 Reema 800 MG oral 1-28 [id number] tablet Seybold Tablet 00:00: 3D (800 mg - 00 total) by Externa mouth l every 8 hours as needed for pain Ibuprofen 2021-10 Yes [id number] 800mg Q.[id number] Take 1 Reema 800 MG oral 1-28 [id number] tablet Seybold Tablet 00:00: 3D (800 mg - 00 total) by Externa mouth l every 8 hours as needed for pain Ibuprofen 2021-10 Yes [id number] 800mg Q.[id number] Take 1 Reema 800 MG oral 1-28 [id number] tablet Seybold Tablet 00:00: 3D (800 mg - 00 total) by Externa mouth l every 8 hours as needed for pain Ibuprofen 2021-10 Yes [id number] 800mg Q.[id number] Take 1 Reema 800 MG oral 1-28 [id number] tablet Seybold Tablet 00:00: 3D (800 mg - 00 total) by Externa mouth l every 8 hours as needed for pain Aspirin 81 2021-10 Yes 81mg Take 81 mg K elsey MG oral 1-18 by mouth Seybold Chewable 14:11: daily - Tablet 52 Externa l Carvedilol 2021-10 Yes [id number] 25mg Take 2 K elsey 12.5 MG [...] SQ Solution Pen-Injecto r Metformin 2021-10 Yes [id number] 1000mg Take 1 Reema HCl 1000 MG 1-18 tablet Seybol d oral Tablet 00:00: (1,000 mg - 00 total) by Externa mouth l daily (with breakfast) Insulin 2021-10 Yes [id number] 40 units K elsey Glargine 1-18 sc every Seybold (Lantus 00:00: day - SoloStar) 00 Externa 100 UNIT/ML l subcutaneou s Solution Pen-injecto r Carvedilol 2021-10 Yes [id number] 25mg Take 2 K elsey 12.5 MG 1-18 tablets Seybold oral Tablet 00:00: (25 mg - 00 total) by Externa mouth in l the morning and 2 tablets (25 mg total) in the evening. Take with meals. Insulin 2021-10 Yes [id number] 40 units K elsey Glargine 1-18 sc every Seybold (Lantus 00:00: day - SoloStar) 00 Externa 100 UNIT/ML l subcutaneou s Solution Pen-injecto r Carvedilol 2021-10- No [id number] 25mg Take 2 Reema 12.5 MG -18 [...] SQ Solution Pen-Injecto r Metformin 2021-10- No [id number] 1000mg Take 1 Reema HCl 1000 MG -18 12-12 tablet Seybo ld oral Tablet 00:00: 00:00 (1,000 mg - 00 :00 total) by Externa mouth l daily (with breakfast) Estradiol 2021-10 Yes [id number] 10ug Insert 1 Univers (YUVAFEM) 1-17 tablet ity of 10 mcg 00:00: into [place] tablet 00 vagina 2 Medical (two) Branch times per week. Estradiol 2021-10 Yes [id number] 10ug Insert 1 Univers (YUVAFEM) 1-17 tablet [...] into ity of mg/gram) 00:00: vagina 2 [place] vaginal (two) Medical cream times per Branch week. estradioL 2021-1 Yes 1g Insert 1 g Un fernanda 0.01 % (0.1 1-17 into ity of mg/gram) 00:00: vagina 2 [place] vaginal (two) Medical cream times per Branch [...] times per Branch week. Estradiol 2021-10- No [id number] 10ug Insert 1 Univers (YUVAFEM) 1-17 11-15 tablet ity of 10 mcg 00:00: 00:00 into [place] tablet 00 :00 vagina 2 Medical (two) Branch times per week. Clonazepam 2021-10 Yes [id number] .125mg Q.5D Take 1 Reema 0.125 MG 1-09 tablet Seybold oral TABLET 00:00: (0.125 mg - DISPERSIBLE 00 total) by Ext mery mouth 2 l times daily as needed Levothyroxi 2021-10 Yes [id number] 137ug Take 1 Reema ne Sodium 1-07 tablet Seybold 137 MCG 00:00: (137 mcg - oral Tablet 00 total) by Ext mery mouth l daily Quetiapine 2021-10 Yes [id number] 100mg Take 1 K elsey Fumarate 1-07 tablet Seybold 100 MG oral 00:00: (100 mg - Tablet 00 total) by Externa mouth l nightly Levothyroxi 2021-10 Yes [id number] 137ug Take 1 Reema ne Sodium 1-07 tablet Seybold 137 MCG 00:00: (137 mcg - oral Tablet 00 total) by Ext mery mouth l daily Quetiapine 2021-10 Yes [id number] 100mg Take 1 K elsey Fumarate 1-07 tablet Seybold 100 MG oral 00:00: (100 mg - Tablet 00 total) by Externa mouth l nightly Levothyroxi 2021-10 Yes [id number] 137ug Take 1 Reema ne Sodium 1-07 tablet Seybold 137 MCG 00:00: (137 mcg - oral Tablet 00 total) by Ext mery mouth l daily Levothyroxi 2021-10 Yes [id number] 137ug Take 1 Reema ne Sodium 1-07 tablet Seybold 137 MCG 00:00: (137 mcg - oral Tablet 00 total) by Ext mery mouth l daily Levothyroxi 2021-10 Yes [id number] 137ug Take 1 Reema ne Sodium 1-07 tablet Seybold 137 MCG 00:00: (137 mcg - oral Tablet 00 total) by Ext mery mouth l daily Levothyroxi 2021-10 Yes [id number] 137ug Take 1 Reema ne Sodium 1-07 tablet Seybold 137 MCG 00:00: (137 mcg - oral Tablet 00 total) by Ext mery mouth l daily Quetiapine 2021-10 [id number] 100mg Take 1 Reema Fumarate 1-07 -19 tablet Seybold 100 MG oral 00:00: 00:00 (100 mg - Tablet 00 :00 total) by Externa mouth l nightly Hydrocortis 2021-10 Yes [id number] 20 mg Reema one 10 MG 1-03 every am Seybol d oral Tablet 00:00: and 10 mg - 00 every Externa night l Valacyclovi 2021-10 Yes [id number] 500mg QD Take 1 Reema r HCl 500 1-03 tablet Seybold MG oral 00:00: (500 mg - Tablet 00 total) by Externa mouth l daily as needed (Herpes breakout) Hydrocortis 2021-10 Yes [id number] 20 mg Reema one 10 MG 1-03 every am Seybol d oral Tablet 00:00: and 10 mg - 00 every Externa night l Hydrocortis 2021-10 Yes [id number] 20 mg Reema one 10 MG 1-03 every am Seybol d oral Tablet 00:00: and 10 mg - 00 every Externa night l Hydrocortis 2021-10 Yes [id number] 20 mg Reema one 10 MG 1-03 every am Seybol d oral Tablet 00:00: and 10 mg - 00 every Externa night l Hydrocortis 2021-10 Yes [id number] 20 mg Reema one 10 MG 1-03 every am Seybol d oral Tablet 00:00: and 10 mg - 00 every Externa night l OZEMPIC 2021-10 Yes [id number] .5mg Inject 0.5 Reema (0.25 or 0-27 mg into Seybold 0.5 00:00: the skin - mg/dose) 2 00 once a Externa mg/1.5 mL week l SQ Solution Pen-Injecto r OZEMPIC 2021-10- No [id number] .5mg Inject 0.5 Reema (0.25 or 0-27 [...] needed in the evening. Hydrocortis 2021-10 Yes [id number] 20 mg Reema one 10 MG 0-21 every am Seybol d oral Tablet 00:00: and 10 mg - 00 every Externa night l Valacyclovi 2021-10 Yes [id number] 500mg QD Take 1 Reema r HCl 500 0-21 tablet Seybold MG oral 00:00: (500 mg - Tablet 00 total) by Externa mouth l daily as needed (Herpes breakout) Simvastatin 2021-10 Yes [id number] 20mg Take 1 Reema 20 MG oral 0-21 tablet (20 Sey bold Tablet 00:00: mg total) - 00 by mouth Externa nightly l Quetiapine 2021-10 Yes [id number] 100mg Take 1 K elsey Fumarate 0-21 tablet Seybold 100 MG oral 00:00: (100 mg - Tablet 00 total) by Externa mouth l nightly Metformin 2021-10 Yes [id number] 1000mg Take 1 Reema HCl 1000 MG 0-21 tablet Seybol d oral Tablet 00:00: (1,000 mg - 00 total) by Externa mouth in l the morning and 1 tablet (1,000 mg total) in the evening. Take with meals. Insulin 2021-10 Yes [id number] 35 units Ke lsey Glargine 0-21 sc every Seybold (Lantus 00:00: day - SoloStar) 00 Externa 100 UNIT/ML l subcutaneou s Solution Pen-injecto r Furosemide 2021-10 Yes [id number] 20mg QD Take 1 Reema (Lasix) 20 0-21 tablet (20 Sey bold MG oral 00:00: mg total) - Tablet 00 by mouth Externa daily as l needed (edema) Simvastatin 2021-10 Yes [id number] 20mg Take 1 Reema 20 MG oral 0-21 tablet (20 Sey bold Tablet 00:00: mg total) - 00 by mouth Externa nightly l Furosemide 2021-10 Yes [id number] 20mg QD Take 1 Reema (Lasix) 20 0-21 tablet (20 Sey bold MG oral 00:00: mg total) - Tablet 00 by mouth Externa daily as l needed (edema) Simvastatin 2021-10 Yes [id number] 20mg Take 1 Reema 20 MG oral 0-21 tablet (20 Sey bold Tablet 00:00: mg total) - 00 by mouth Externa nightly l Furosemide 2021-10 Yes [id number] 20mg QD Take 1 Reema (Lasix) 20 0-21 tablet (20 Sey bold MG oral 00:00: mg total) - Tablet 00 by mouth Externa daily as l needed (edema) Simvastatin 2021-10 Yes [id number] 20mg Take 1 Reema 20 MG oral 0-21 tablet (20 Sey bold Tablet 00:00: mg total) - 00 by mouth Externa nightly l Furosemide 2021-10 Yes [id number] 20mg QD Take 1 Reema (Lasix) 20 0-21 tablet (20 Sey bold MG oral 00:00: mg total) - Tablet 00 by mouth Externa daily as l needed (edema) Simvastatin 2021-10 Yes [id number] 20mg Take 1 Reema 20 MG oral 0-21 tablet (20 Sey bold Tablet 00:00: mg total) - 00 by mouth Externa nightly l Furosemide 2021-10 Yes [id number] 20mg QD Take 1 Reema (Lasix) 20 0-21 tablet (20 Sey bold MG oral 00:00: mg total) - Tablet 00 by mouth Externa daily as l needed (edema) Furosemide 2021-10- No [id number] 20mg QD Take 1 Reema (Lasix) 20 0-21 01-24 tablet (20 Se ybold MG oral 00:00: 00:00 mg total) - Tablet 00 :00 by mouth Externa daily as l needed (edema) Metformin 2021-10- No [id number] 1000mg Take 1 Reema HCl 1000 MG -01 09-18 tablet Seybo ld oral Tablet 00:00: 00:00 (1,000 mg - 00 :00 total) by Externa mouth in l the morning and 1 tablet (1,000 mg total) in the evening. Take with meals. Insulin 2021-10- No [id number] 35 units K elsey Glargine 0-21 11-18 [...] Take 30 mg Reema HCl 30 MG 07-02 by mouth Seybo ld oral Cap DR 09:51: 00:00 daily - Particles 31 :00 Externa l Insulin Yes [id number] Takes up K elsey Glargine 07-02 to 40 Seybold (Lantus 00:00: units sc - SoloStar) 00 daily Externa 100 UNIT/ML l subcutaneou s Solution Pen-injecto r Hydrocortis Yes [id number] 30 mg Reema one 10 MG 9-20 every am Seybol d oral Tablet 00:00: and 20 mg - 00 every Externa night l HYDROcodone Yes Reema -Acetaminop 9-12 Seybold hen (NORCO) 00:00: - 5-325 MG 00 Externa oral Tablet l Quetiapine Yes Reema Fumarate 9-10 Seybold 100 MG oral 00:00: - Tablet 00 Externa l Metformin Yes [id number] 500mg Take 1 Reema HCl 500 MG 06-17 tablet Seybold oral Tablet 00:00: (500 mg - 00 total) by Externa mouth in l the morning and 1 tablet (500 mg total) in the evening. Take with meals. OZEMPIC 2021- No [id number] .25mg Inject K elsey (0.25 or 06-17 0.25 mg Seybold 0.5 00:00: 00:00 into the - mg/dose) 2 00 :00 skin once Exte rna mg/1.5 mL a week l SQ Solution Pen-Injecto r Insulin 2021- No [id number] 20 units Reema Glargine 06-17 sc daily Seybol d (Lantus 00:00: 00:00 - SoloStar) 00 :00 Externa 100 UNIT/ML l subcutaneou s Solution Pen-injecto r NovoLOG 2021-0 Yes Sliding Reema FlexPen 100 9-03 Seybold UNIT/ML 00:00: - subcutaneou 00 Externa s Solution l Pen-injecto r NovoLOG 2021-0 Yes Sliding Reema FlexPen 100 9-03 Seybold UNIT/ML 00:00: - subcutaneou 00 Externa s Solution l Pen-injecto r NovoLOG 2021-0 Yes Sliding Reema FlexPen 100 9-03 Seybold UNIT/ML 00:00: - subcutaneou 00 Externa s Solution l Pen-injecto r NovoLOG 2021-0 2021- No Sliding Reema FlexPen 100 9-03 12-12 Seybold UNIT/ML 00:00: 00:00 - subcutaneou 00 :00 Externa s Solution l Pen-injecto r BD Pen 0 Yes Reema Needle Rhonda 9-02 Seybold 2nd Gen 32G 00:00: - X 4 MM does 00 Externa not apply l Misc BD Pen 2021-0 Yes Reema Needle Rhonda 9-02 Seybold 2nd Gen 32G 00:00: - X 4 MM does 00 Externa not apply l Misc BD Pen 2021-0 Yes Reema Needle Rhonda 9-02 Seybold 2nd Gen 32G 00:00: - X 4 MM does 00 Externa not apply l Misc BD Pen 2021-0 Yes Reema Needle Rhonda 9-02 Seybold 2nd Gen 32G 00:00: - X 4 MM does 00 Externa not apply l Misc BD Pen 2021-0 Yes Reema Needle Rhonda 9-02 Seybold 2nd Gen 32G 00:00: - X 4 MM does 00 Externa not apply l Misc BD Pen 2021-0 Yes Reema Needle Rhonda 9-02 Seybold 2nd Gen 32G 00:00: - X 4 MM does 00 Externa not apply l Misc BD Pen 2021-0 Yes Reema Needle Rhonda 9-02 Seybold 2nd Gen 32G 00:00: - X 4 MM does 00 Externa not apply l Misc BD Pen 2021-0 Yes Reema Needle Rhonda 9-02 Seybold 2nd Gen 32G 00:00: - X 4 MM does 00 Externa not apply l Misc Glucose 2022-0 Yes [id number] Use test K elsey Blood 8-30 strips [...] the evening. Take with meals. Carvedilol Yes 25mg Take 1 Kelse y 25 MG oral 8-23 tablet (25 Sey bold Tablet 00:00: mg total) - 00 by mouth Externa in the l morning and 1 tablet (25 mg total) in the evening. Take with meals. Carvedilol 2021- No 25mg Take 1 Kaykay ey 25 MG oral 8-23 11-18 tablet (25 Se ybold Tablet 00:00: 00:00 mg total) - 00 :00 by mouth Externa in the l morning and 1 tablet (25 mg total) in the evening. Take with meals. Levothyroxi Yes [id number] 137ug Take 1 Reema ne Sodium 8-10 tablet Seybold 137 MCG 00:00: (137 mcg - oral Tablet 00 total) by Ext mery mouth l daily Levothyroxi 0 Yes [id number] 137ug Take 1 Reema ne Sodium 8-10 tablet Seybold 137 MCG 00:00: (137 mcg - oral Tablet 00 total) by Ext mery mouth l daily Trazodone 0 Yes [id number] 50mg Take 1 K elsey HCl 50 MG 8-01 tablet (50 Seyb old oral Tablet 00:00: mg total) - 00 by mouth Externa nightly l Trazodone Yes [id number] 50mg Take 1 K elsey HCl 50 MG 8-01 tablet (50 Seyb old oral Tablet 00:00: mg total) - 00 by mouth Externa nightly l Trazodone Yes [id number] 50mg Take 1 K elsey HCl 50 MG 8-01 tablet (50 Seyb old oral Tablet 00:00: mg total) - by mouth Externa nightly l Trazodone Yes [id number] 50mg Take 1 K elsey HCl 50 MG 8-01 tablet (50 Seyb old oral Tablet 00:00: mg total) - 00 by mouth Externa nightly l Trazodone Yes [id number] 50mg Take 1 K elsey HCl 50 MG 8-01 tablet (50 Seyb old oral Tablet 00:00: mg total) - 00 by mouth Externa nightly l Ibuprofen Yes [id number] 800mg Q.[id number] Take 1 Reema 800 MG oral 7-05 [id number] tablet Seybold Tablet 00:00: 3D (800 mg - 00 total) by Externa mouth l every 8 hours as needed for pain Ibuprofen Yes [id number] 800mg Q.[id number] Take 1 Reema 800 MG oral 7-05 [id number] tablet Seybold Tablet 00:00: 3D (800 mg - 00 total) by Externa mouth l every 8 hours as needed for pain Ibuprofen Yes [id number] 800mg Q.[id number] Take 1 Reema 800 MG oral 7-05 [id number] tablet Seybold Tablet 00:00: 3D (800 mg - 00 total) by Externa mouth l every 8 hours as needed for pain Cyclobenzap 2021- No Kelse y rine HCl 10 7-05 09-21 Seybold MG oral 00:00: 00:00 - Tablet 00 :00 Externa l Insulin Pen Yes [id number] Takes Reema Needle 31G 6-29 insulin Seybol d X 5 MM does 00:00: once daily - not apply 00 Externa Misc l Insulin Pen Yes [id number] Takes Reema Needle 31G 6-29 insulin Seybol d X 5 MM does 00:00: once daily - not apply 00 Externa Misc l Insulin Pen Yes [id number] Takes Reema Needle 31G 6-29 insulin Seybol d X 5 MM does 00:00: once daily - not apply 00 Externa Misc l Insulin Pen 0 2021- No [id number] Takes Reema Needle 31G 6-29 12-12 insulin Seybo ld X 5 MM does 00:00: 00:00 once daily - not apply 00 :00 Externa Misc l Fluoxetine Yes [id number] Ke lsey HCl 20 MG 6-27 Seybold oral 00:00: - Capsule 00 Externa l Aspirin 81 Yes 81mg Take 81 mg K elsey MG oral 6-06 by mouth Seybold Chewable 14:50: daily Tablet 32 Clonazepam Yes .125mg Q.5D Take 0.125 Reema 0.125 MG 6-06 mg by Seybold oral TABLET 14:50: mouth as DISPERSIBLE 32 needed in the morning and 0.125 mg as needed in the evening. Quetiapine Yes [id number] 100mg Take 1 Reema Fumarate 6-01 tablet [...] Chewable 08:17: daily Tablet 16 Insulin Yes [id number] 12U Inject 12 Reema Glargine 5-17 units into Seybo ld (Lantus 00:00: the skin SoloStar) 00 daily 100 UNIT/ML subcutaneou s Solution Pen-injecto r Insulin Yes [id number] 12U Inject 12 Reema Glargine 5-17 units into Seybo ld (Lantus 00:00: the skin SoloStar) 00 daily 100 UNIT/ML subcutaneou s Solution Pen-injecto r VALACYCLOVI 0 Yes [id number] TAKE ONE Univers R 500 mg 5-16 TABLET BY ity of tablet 00:00: MOUTH DAILY Medical Branch VALACYCLOVI 2021-0 Yes [id number] TAKE ONE Univers R 500 mg 5-16 TABLET BY ity of tablet 00:00: MOUTH DAILY Medical Branch VALACYCLOVI 2021-0 Yes [id number] TAKE ONE Univers R 500 mg 5-16 TABLET BY ity of tablet 00:00: MOUTH DAILY Medical Branch VALACYCLOVI 2021-0 Yes [id number] TAKE ONE Univers R 500 mg 5-16 TABLET BY ity of tablet 00:00: MOUTH DAILY Medical Branch VALACYCLOVI 0 Yes [id number] TAKE ONE Univers R 500 mg 5-16 TABLET BY ity of tablet 00:00: MOUTH DAILY Medical Branch VALACYCLOVI 2021-0 Yes [id number] TAKE ONE Univers R 500 mg 5-16 TABLET BY ity of tablet 00:00: MOUTH DAILY Medical Branch VALACYCLOVI 2021-0 Yes [id number] TAKE ONE Univers R 500 mg 5-16 TABLET BY ity of tablet 00:00: MOUTH DAILY Medical Branch VALACYCLOVI 2021-0 Yes [id number] TAKE ONE Univers R 500 mg 5-16 TABLET BY ity of tablet 00:00: [facility] DAILY Medical Branch VALACYCLOVI 2021-0 Yes [id number] TAKE ONE Univers R 500 mg 5-16 TABLET BY ity of tablet 00:00: MOUTH DAILY Medical Branch VALACYCLOVI 2021-0 Yes [id number] TAKE ONE Univers R 500 mg 5-16 TABLET BY ity of tablet 00:00: [facility] DAILY Medical Branch VALACYCLOVI 2021-0 Yes [id number] TAKE ONE Univers R 500 mg 5-16 TABLET BY ity of tablet 00:00: MOUTH DAILY Medical Branch VALACYCLOVI 2021-0 Yes [id number] TAKE ONE Univers R 500 mg 5-16 TABLET BY ity of tablet 00:00: [facility] DAILY Medical Branch VALACYCLOVI 2021-0 Yes [id number] TAKE ONE Univers R 500 mg 5-16 TABLET BY ity of tablet 00:00: MOUTH DAILY Medical Branch VALACYCLOVI 2021-0 Yes [id number] TAKE ONE Univers R 500 mg 5-16 TABLET BY ity of tablet 00:00: MOUTH DAILY Medical Branch VALACYCLOVI 2021-0 Yes [id number] TAKE ONE Univers R 500 mg 5-16 TABLET BY ity of tablet 00:00: DAILY Medical Branch VALACYCLOVI 2021-0 Yes [id number] TAKE ONE Univers R 500 mg 5-16 TABLET BY ity of tablet 00:00: MOUTH DAILY Medical Branch VALACYCLOVI 2021-0 Yes [id number] TAKE ONE Univers R 500 mg 5-16 TABLET BY ity of tablet 00:00: [facility] DAILY Medical Branch VALACYCLOVI 2021-0 Yes [id number] TAKE ONE Univers R 500 mg 5-16 TABLET BY ity of tablet 00:00: [facility] DAILY Medical Branch VALACYCLOVI 2021-0 Yes [id number] TAKE ONE Univers R 500 mg 5-16 TABLET BY ity of tablet 00:00: MOUTH DAILY Medical Branch VALACYCLOVI 2021-0 Yes [id number] TAKE ONE Univers R 500 mg 5-16 TABLET BY ity of tablet 00:00: [facility] DAILY Medical Branch VALACYCLOVI 2021-0 Yes [id number] TAKE ONE Univers R 500 mg 5-16 TABLET BY ity of tablet 00:00: [facility] DAILY Medical Branch Pantoprazol 2021-0 Yes 40mg [...] the evening. Take with meals. Carvedilol 2021-0 Yes Reema 25 MG oral 5-12 Seybold Tablet 00:00: 00 Levothyroxi 2021-0 Yes [id number] 137ug Take 1 Reema ne Sodium 5-05 tablet Seybold 137 MCG 00:00: (137 mcg oral Tablet 00 total) by mouth daily Levothyroxi Yes [id number] 137ug Take 1 Reema ne Sodium 5-05 [...] 00 daily s Solution Pen-injecto r Lantus No 12U Inject 12 Kelse y SoloStar 4-01 05-17 units into Seyb old 100 UNIT/ML 00:00: 00:00 the skin subcutaneou 00 :00 daily s Solution Pen-injecto r aspirin 81 Yes 81mg Take 81 mg U nivers mg chewable 3-24 by mouth ity of tablet 13:15: daily. [address] desvenlafax Yes 1{tbl} Take 1 Un [...] ity of Vitamin D3, 13:15: (400 unit) [place] 10 mcg (400 54 capsule Medic al unit) Take by Branch capsule oral route. metFORMIN Yes metformin Uni vers 500 mg 3-24 500 mg ity of tablet 13:15: tablet [address] aspirin 81 Yes aspirin 81 U nivers mg EC 3-24 mg ity of tablet 13:15: tablet,del [place] [address] ayed Medical release Branch Take 1 tablet every day by oral route. carvediloL Yes Coreg 25 Uni vers (COREG) 25 3-24 mg tablet ity of mg tablet 13:15: Take 1 [place] [address] tablet Medical twice a Branch day by oral route. simvastatin Yes simvastati Univers 20 mg 3-24 n 20 mg ity of tablet 13:15: tablet [address] traZODone Yes trazodone Uni vers 50 mg 3-24 50 mg ity of tablet 13:15: tablet [address] desvenlafax Yes Univer s ine 3-24 ity of succinate 13:15: [place] (PRISTIQ) 54 Medical 25 mg Tb24 Branch QUEtiapine Yes Seroquel Uni vers (SEROQUEL) 3-24 200 mg ity of 200 mg 13:15: tablet [place] tablet Take 1 Medical tablet Branch twice a day by oral route. levothyroxi Yes levothyrox Univers ne 50 mcg 3-24 ine 50 mcg ity of tablet 13:15: tablet [address] aspirin 81 Yes 81mg Take 81 mg U nivers mg chewable 3-24 by mouth ity of tablet 13:15: daily. [address] desvenlafax Yes 1{tbl} Take 1 Un fernanda ine 3-24 tablet by ity of succinate 13:15: mouth [place] (PRISTIQ) 54 daily. Medical 25 mg Tb24 Branch HYDROcodone Yes hydrocodon Univers -acetaminop 3-24 e 10 ity of hen 10-325 13:15: mg-acetami [place] mg tablet 54 nophen 325 Medi owen mg tablet Branch Cholecalcif Yes Vitamin D3 Univers geoffrey, 3-24 10 mcg ity of Vitamin D3, 13:15: (400 unit) [place] 10 mcg (400 54 capsule Medic al unit) Take by Branch capsule oral route. metFORMIN Yes metformin Uni vers 500 mg 3-24 500 mg ity of tablet 13:15: tablet [address] aspirin 81 Yes aspirin 81 U nivers mg EC 3-24 mg ity of tablet 13:15: tablet,del [place] [address] ayed Medical release Branch Take 1 tablet every day by oral route. carvediloL Yes Coreg 25 Uni vers (COREG) 25 3-24 mg tablet ity of mg tablet 13:15: Take 1 [place] [address] tablet Medical twice a Branch day by oral route. simvastatin Yes simvastati Univers 20 mg 3-24 n 20 mg ity of tablet 13:15: tablet [address] traZODone Yes trazodone Uni vers 50 mg 3-24 50 mg ity of tablet 13:15: tablet [address] desvenlafax Yes Univer s ine 3-24 ity of succinate 13:15: [place] (PRISTIQ) 54 Medical 25 mg Tb24 Branch QUEtiapine Yes Seroquel Uni vers (SEROQUEL) 3-24 200 mg ity of 200 mg 13:15: tablet [place] tablet Take 1 Medical tablet Branch twice a day by oral route. levothyroxi Yes levothyrox Univers ne 50 mcg 3-24 ine 50 mcg ity of tablet 13:15: tablet [address] aspirin 81 Yes 81mg Take 81 mg U nivers mg chewable 3-24 by mouth ity of tablet 13:15: daily. [address] desvenlafax Yes 1{tbl} Take 1 Un fernanda ine 3-24 tablet by ity of succinate 13:15: mouth [place] (PRISTIQ) 54 daily. Medical 25 mg Tb24 Branch HYDROcodone Yes hydrocodon Univers -acetaminop 3-24 e 10 ity of hen 10-325 13:15: mg-acetami [place] mg tablet 54 nophen 325 Medi owen mg tablet Branch Cholecalcif Yes Vitamin D3 Univers geoffrey, 3-24 10 mcg ity of Vitamin D3, 13:15: (400 unit) [place] 10 mcg (400 54 capsule Medic al unit) Take by Branch capsule oral route. metFORMIN Yes metformin Uni vers 500 mg 3-24 500 mg ity of tablet 13:15: tablet [address] aspirin 81 Yes aspirin 81 U nivers mg EC 3-24 mg ity of tablet 13:15: tablet,del [place] [address] ayed Medical release Branch Take 1 tablet every day by oral route. carvediloL Yes Coreg 25 Uni vers (COREG) 25 3-24 mg tablet ity of mg tablet 13:15: Take 1 [place] [address] tablet Medical twice a Branch day by oral route. simvastatin Yes simvastati Univers 20 mg 3-24 n 20 mg ity of tablet 13:15: tablet [address] traZODone Yes trazodone Uni vers 50 mg 3-24 50 mg ity of tablet 13:15: tablet [address] desvenlafax Yes Univer s ine 3-24 ity of succinate 13:15: [place] (PRISTIQ) Medical 25 mg Tb24 Branch QUEtiapine Yes Seroquel Uni vers (SEROQUEL) 3-24 200 mg ity of 200 mg 13:15: tablet [place] [address] Take 1 Medical tablet [place] twice a day by oral route. levothyroxi Yes levothyrox Univers ne 50 mcg 3-24 ine 50 mcg ity of tablet 13:15: tablet [address] aspirin 81 Yes 81mg Take 81 mg U nivers mg chewable 3-24 by mouth ity of tablet 13:15: daily. [address] desvenlafax Yes 1{tbl} Take 1 Un fernanda ine 3-24 tablet by ity of succinate 13:15: mouth [place] (PRISTIQ) 54 daily. Medical 25 mg Tb24 Branch HYDROcodone Yes hydrocodon Univers -acetaminop 3-24 e 10 ity of hen 10-325 13:15: mg-acetami [place] mg tablet 54 nophen 325 Medi owen mg tablet Branch Cholecalcif Yes Vitamin D3 Univers geoffrey, 3-24 10 mcg ity of Vitamin D3, 13:15: (400 unit) [place] 10 mcg (400 54 capsule Medic al unit) Take by Branch capsule oral route. metFORMIN Yes metformin Uni vers 500 mg 3-24 500 mg ity of tablet 13:15: tablet [address] aspirin 81 Yes aspirin 81 U nivers mg EC 3-24 mg ity of tablet 13:15: tablet,del [place] [address] ayed Medical release Branch Take 1 tablet every day by oral route. carvediloL Yes Coreg 25 Uni vers (COREG) 25 3-24 mg tablet ity of mg tablet 13:15: Take 1 [place] [address] tablet Medical twice a Branch day by oral route. simvastatin Yes simvastati Univers 20 mg 3-24 n 20 mg ity of tablet 13:15: tablet [address] traZODone Yes trazodone Uni vers 50 mg 3-24 50 mg ity of tablet 13:15: tablet [address] desvenlafax Yes Univer s ine 3-24 ity of succinate 13:15: [place] (PRISTIQ) Medical 25 mg Tb24 Branch QUEtiapine Yes Seroquel Uni vers (SEROQUEL) 3-24 200 mg ity of 200 mg 13:15: tablet [place] tablet Take 1 Medical tablet [place] twice a day by oral route. levothyroxi Yes levothyrox Univers ne 50 mcg 3-24 ine 50 mcg ity of tablet 13:15: tablet [address] aspirin 81 Yes 81mg Take 81 mg U nivers mg chewable 3-24 by mouth ity of tablet 13:15: daily. [address] desvenlafax Yes 1{tbl} Take 1 Un fernanda ine 3-24 tablet by ity of succinate 13:15: mouth [place] (PRISTIQ) 54 daily. Medical 25 mg Tb24 Branch Cholecalcif Yes Vitamin D3 Univers geoffrey, 3-24 10 mcg ity of Vitamin D3, 13:15: (400 unit) [place] 10 mcg (400 54 capsule Medic al unit) Take by Branch capsule oral route. metFORMIN Yes metformin Uni vers 500 mg 3-24 500 mg ity of tablet 13:15: tablet [address] aspirin 81 Yes aspirin 81 U nivers mg EC 3-24 mg ity of tablet 13:15: tablet,del [place] [address] ayed Medical release Branch Take 1 tablet every day by oral route. carvediloL Yes Coreg 25 Uni vers (COREG) 25 3-24 mg tablet ity of mg tablet 13:15: Take 1 [place] [address] tablet Medical twice a Branch day by oral route. simvastatin Yes simvastati [facility] 20 mg 3-24 n 20 mg ity of tablet 13:15: tablet [address] traZODone Yes trazodone Uni vers 50 mg 3-24 50 mg ity of tablet 13:15: tablet [address] desvenlafax Yes Univer s ine 3-24 ity of succinate 13:15: [place] (PRISTIQ) Medical 25 mg Tb24 Branch QUEtiapine Yes Seroquel Uni vers (SEROQUEL) 3-24 200 mg ity of 200 mg 13:15: tablet [place] tablet 54 Take 1 Medical tablet Branch twice a day by oral route. levothyroxi Yes levothyrox [facility] ne 50 mcg 3-24 ine 50 mcg ity of tablet 13:15: tablet [address] aspirin 81 Yes 81mg Take 81 mg U nivers mg chewable 3-24 by mouth ity of tablet 13:15: daily. [address] desvenlafax Yes 1{tbl} Take 1 Un fernanda ine 3-24 tablet by ity of succinate 13:15: mouth [place] (PRISTIQ) 54 daily. Medical 25 mg Tb24 Branch Cholecalcif Yes Vitamin D3 [facility], 3-24 10 mcg ity of Vitamin D3, 13:15: (400 unit) [place] 10 mcg (400 54 capsule Medic al unit) Take by Branch capsule oral route. metFORMIN Yes metformin Uni vers 500 mg 3-24 500 mg ity of tablet 13:15: tablet [address] aspirin 81 Yes aspirin 81 U nivers mg EC 3-24 mg ity of tablet 13:15: tablet,del [place] [address] ayed Medical release Branch Take 1 tablet every day by oral route. carvediloL Yes Coreg 25 Uni vers (COREG) 25 3-24 mg tablet ity of mg tablet 13:15: Take 1 [place] [address] tablet Medical twice a Branch day by oral route. simvastatin Yes simvastati [facility] 20 mg 3-24 n 20 mg ity of tablet 13:15: tablet [address] traZODone Yes trazodone Uni vers 50 mg 3-24 50 mg ity of tablet 13:15: tablet [address] desvenlafax Yes Univer s ine 3-24 ity of succinate 13:15: [place] (PRISTIQ) Medical 25 mg Tb24 Branch QUEtiapine Yes Seroquel Uni vers (SEROQUEL) 3-24 200 mg ity of 200 mg 13:15: tablet [place] tablet 54 Take 1 Medical tablet Branch twice a day by oral route. levothyroxi Yes levothyrox [facility] ne 50 mcg 3-24 ine 50 mcg ity of tablet 13:15: tablet [address] aspirin 81 Yes 81mg Take 81 mg U nivers mg chewable 3-24 by mouth ity of tablet 13:15: daily. [address] desvenlafax Yes 1{tbl} Take 1 Un fernanda ine 3-24 tablet by ity of succinate 13:15: mouth [place] (PRISTIQ) 54 daily. Medical 25 mg Tb24 Branch Cholecalcif Yes Vitamin D3 [facility], 3-24 10 mcg ity of Vitamin D3, 13:15: (400 unit) [place] 10 mcg (400 54 capsule Medic al unit) Take by Branch capsule oral route. metFORMIN Yes metformin [facility] vers 500 mg 3-24 500 mg ity of tablet 13:15: tablet [address] aspirin 81 Yes aspirin 81 U nivers mg EC 3-24 mg ity of tablet 13:15: tablet,del [place] [address] ayed Medical release Branch Take 1 tablet every day by oral route. carvediloL Yes Coreg 25 Uni vers (COREG) 25 3-24 mg tablet ity of mg tablet 13:15: Take 1 [place] [address] tablet Medical twice a Branch day by oral route. simvastatin Yes simvastati [facility] 20 mg 3-24 n 20 mg ity of tablet 13:15: tablet [address] traZODone Yes trazodone [facility] vers 50 mg 3-24 50 mg ity of tablet 13:15: tablet [address] desvenlafax Yes Univer s ine 3-24 ity of succinate 13:15: [place] (PRISTIQ) Medical 25 mg Tb24 [place] QUEtiapine Yes Seroquel Uni vers (SEROQUEL) 3-24 200 mg ity of 200 mg 13:15: tablet [place] tablet Take 1 Medical tablet Branch twice a day by oral route. levothyroxi Yes levothyrox [facility] ne 50 mcg 3-24 ine 50 mcg ity of tablet 13:15: tablet [address] aspirin 81 Yes 81mg Take 81 mg U nivers mg chewable 3-24 by mouth ity of tablet 13:15: daily. [address] desvenlafax Yes 1{tbl} Take 1 Un fernanda ine 3-24 tablet by ity of succinate 13:15: mouth [place] (PRISTIQ) 54 daily. Medical 25 mg Tb24 Branch Cholecalcif Yes Vitamin D3 [facility], 3-24 10 mcg ity of Vitamin D3, 13:15: (400 unit) [place] 10 mcg (400 54 capsule Medic al unit) Take by Branch capsule oral route. metFORMIN Yes metformin [facility] vers 500 mg 3-24 500 mg ity of tablet 13:15: tablet [address] aspirin 81 Yes aspirin 81 U nivers mg EC 3-24 mg ity of tablet 13:15: tablet,del [place] [address] ayed Medical release Branch Take 1 tablet every day by oral route. carvediloL Yes Coreg 25 Uni vers (COREG) 25 3-24 mg tablet ity of mg tablet 13:15: Take 1 [place] [address] tablet Medical twice a Branch day by oral route. simvastatin Yes simvastati [facility] 20 mg 3-24 n 20 mg ity of tablet 13:15: tablet [address] traZODone Yes trazodone [facility] vers 50 mg 3-24 50 mg ity of tablet 13:15: tablet [address] desvenlafax Yes Univer s ine 3-24 ity of succinate 13:15: [place] (PRISTIQ) [address] [place] [address] 25 mg Tb24 [place] QUEtiapine Yes Seroquel Uni vers (SEROQUEL) 3-24 200 mg ity of 200 mg 13:15: tablet [place] tablet 54 Take 1 Medical tablet Branch twice a day by oral route. levothyroxi Yes levothyrox [facility] ne 50 mcg 3-24 ine 50 mcg ity of tablet 13:15: tablet [address] aspirin 81 Yes 81mg Take 81 mg U nivers mg chewable 3-24 by mouth ity of tablet 13:15: daily. [address] desvenlafax Yes 1{tbl} Take 1 Un fenranda ine 3-24 tablet by ity of succinate 13:15: mouth [place] (PRISTIQ) 54 daily. Medical 25 mg Tb24 Branch Cholecalcif Yes Vitamin D3 [facility], 3-24 10 mcg ity of Vitamin D3, 13:15: (400 unit) [place] 10 mcg (400 54 capsule Medic al unit) Take by Branch capsule oral route. metFORMIN Yes metformin [facility] vers 500 mg 3-24 500 mg ity of tablet 13:15: tablet [address] aspirin 81 Yes aspirin 81 U nivers mg EC 3-24 mg ity of tablet 13:15: tablet,del [address] Take 1 tablet every day by oral route. carvediloL Yes Coreg 25 Uni vers (COREG) 25 3-24 mg tablet ity of mg tablet 13:15: Take 1 [place] [address] tablet Medical twice a Branch day by oral route. simvastatin Yes simvastati [facility] 20 mg 3-24 n 20 mg ity of tablet 13:15: tablet [address] traZODone Yes trazodone [facility] vers 50 mg 3-24 50 mg ity of tablet 13:15: tablet [address] desvenlafax Yes Univer s ine 3-24 ity of succinate 13:15: [place] (PRISTIQ) Medical 25 mg Tb24 [place] QUEtiapine Yes Seroquel Uni vers (SEROQUEL) 3-24 200 mg ity of 200 mg 13:15: tablet [place] [address] Take 1 Medical tablet [place] twice a day by oral route. levothyroxi Yes levothyrox [facility] ne 50 mcg 3-24 ine 50 mcg ity of tablet 13:15: tablet [address] aspirin 81 Yes 81mg Take 81 mg U nivers mg chewable 3-24 by mouth ity of tablet 13:15: daily. [address] desvenlafax Yes 1{tbl} Take 1 Un fernanda ine 3-24 tablet by ity of succinate 13:15: mouth [place] (PRISTIQ) 54 daily. Medical 25 mg Tb24 Branch Cholecalcif Yes Vitamin D3 [facility], 3-24 10 mcg ity of Vitamin D3, 13:15: (400 unit) [place] 10 mcg (400 54 capsule Medic al unit) Take by Branch capsule oral route. metFORMIN Yes metformin [facility] vers 500 mg 3-24 500 mg ity of tablet 13:15: tablet [address] aspirin 81 Yes aspirin 81 U nivers mg EC 3-24 mg ity of tablet 13:15: tablet,del [address] Take 1 tablet every day by oral route. carvediloL Yes Coreg 25 Uni vers (COREG) 25 3-24 mg tablet ity of mg tablet 13:15: Take 1 [place] [address] tablet Medical twice a Branch day by oral route. simvastatin Yes simvastati [facility] 20 mg 3-24 n 20 mg ity of tablet 13:15: tablet [address] traZODone Yes trazodone Uni vers 50 mg 3-24 50 mg ity of tablet 13:15: tablet [address] desvenlafax Yes Univer s ine 3-24 ity of succinate 13:15: [place] (PRISTIQ) 54 Medical 25 mg Tb24 Branch QUEtiapine Yes Seroquel Uni vers (SEROQUEL) 3-24 200 mg ity of 200 mg 13:15: tablet [place] [address] Take 1 Medical tablet Branch twice a day by oral route. levothyroxi Yes levothyrox [facility] ne 50 mcg 3-24 ine 50 mcg ity of tablet 13:15: tablet [address] aspirin 81 Yes 81mg Take 81 mg U nivers mg chewable 3-24 by mouth ity of tablet 13:15: daily. [address] desvenlafax Yes 1{tbl} Take 1 Un [facility]anda ine 3-24 tablet by ity of succinate 13:15: mouth [place] (PRISTIQ) 54 daily. Medical 25 mg Tb24 Branch Cholecalcif Yes Vitamin D3 [facility], 3-24 10 mcg ity of Vitamin D3, 13:15: (400 unit) [place] 10 mcg (400 54 capsule Medic al unit) Take by Branch capsule oral route. metFORMIN Yes metformin [facility] vers 500 mg 3-24 500 mg ity of tablet 13:15: tablet [address] aspirin 81 Yes aspirin 81 U nivers mg EC 3-24 mg ity of tablet 13:15: tablet,del [place] [address] ayed Medical release Branch Take 1 tablet every day by oral route. carvediloL Yes Coreg 25 Uni vers (COREG) 25 3-24 mg tablet ity of mg tablet 13:15: Take 1 [place] [address] tablet Medical twice a Branch day by oral route. simvastatin Yes simvastati [facility] 20 mg 3-24 n 20 mg ity of tablet 13:15: tablet [address] traZODone Yes trazodone Uni vers 50 mg 3-24 50 mg ity of tablet 13:15: tablet [address] desvenlafax Yes Univer s ine 3-24 ity of succinate 13:15: [place] (PRISTIQ) Medical 25 mg Tb24 Branch QUEtiapine Yes Seroquel Uni vers (SEROQUEL) 3-24 200 mg ity of 200 mg 13:15: tablet [place] [address] Take 1 Medical tablet Branch twice a day by oral route. levothyroxi Yes levothyrox [facility] ne 50 mcg 3-24 ine 50 mcg ity of tablet 13:15: tablet [address] aspirin 81 Yes 81mg Take 81 mg U nivers mg chewable 3-24 by mouth ity of tablet 13:15: daily. [address] desvenlafax Yes 1{tbl} Take 1 Un f[facility]anda ine 3-24 tablet by ity of succinate 13:15: mouth [place] (PRISTIQ) daily. Medical 25 mg Tb24 Branch Cholecalcif Yes Vitamin D3 [facility], 3-24 10 mcg ity of Vitamin D3, 13:15: (400 unit) [place] 10 mcg (400 54 capsule Medic al unit) Take by Branch capsule oral route. metFORMIN Yes metformin [facility] vers 500 mg 3-24 500 mg ity of tablet 13:15: tablet [address] Branch aspirin 81 Yes aspirin 81 U nivers mg EC 3-24 mg ity of tablet 13:15: tablet,del [place] [address] ayed Medical release Branch Take 1 tablet every day by oral route. carvediloL Yes Coreg 25 Uni vers (COREG) 25 3-24 mg tablet ity of mg tablet 13:15: Take 1 [place] [address] tablet Medical twice a Branch day by oral route. simvastatin Yes simvastati [facility] 20 mg 3-24 n 20 mg ity of tablet 13:15: tablet [address] traZODone Yes trazodone Uni vers 50 mg 3-24 50 mg ity of tablet 13:15: tablet [address] desvenlafax Yes Univer s ine 3-24 ity of succinate 13:15: [place] (PRISTIQ) 54 Medical 25 mg Tb24 Branch QUEtiapine Yes Seroquel Uni vers (SEROQUEL) 3-24 200 mg ity of 200 mg 13:15: tablet [place] tablet 54 Take 1 Medical tablet Branch twice a day by oral route. levothyroxi Yes levothyrox [facility] ne 50 mcg 3-24 ine 50 mcg ity of tablet 13:15: tablet [address] aspirin 81 Yes 81mg Take 81 mg U nivers mg chewable 3-24 by mouth ity of tablet 13:15: daily. [address] Branch desvenlafax Yes 1{tbl} Take 1 Un fernanda ine 3-24 tablet by ity of succinate 13:15: mouth [place] (PRISTIQ) 54 daily. Medical 25 mg Tb24 Branch Cholecalcif Yes Vitamin D3 [facility], 3-24 10 mcg ity of Vitamin D3, 13:15: (400 unit) [place] 10 mcg (400 54 capsule Medic al unit) Take by Branch capsule oral route. metFORMIN Yes metformin [facility] vers 500 mg 3-24 500 mg ity of tablet 13:15: tablet [address] Branch aspirin 81 Yes aspirin 81 U nivers mg EC 3-24 mg ity of tablet 13:15: tablet,del [place] [address] ayed Medical release Branch Take 1 tablet every day by oral route. carvediloL Yes Coreg 25 Uni vers (COREG) 25 3-24 mg tablet ity of mg tablet 13:15: Take 1 [place] [address] tablet Medical twice a Branch day by oral route. simvastatin Yes simvastati [facility] 20 mg 3-24 n 20 mg ity of tablet 13:15: tablet [address] Branch traZODone Yes trazodone Uni vers 50 mg 3-24 50 mg ity of tablet 13:15: tablet [address] desvenlafax Yes Univer s ine 3-24 ity of succinate 13:15: [place] (PRISTIQ) Medical 25 mg Tb24 Branch QUEtiapine Yes Seroquel Uni vers (SEROQUEL) 3-24 200 mg ity of 200 mg 13:15: tablet [place] tablet 54 Take 1 Medical tablet Branch twice a day by oral route. levothyroxi Yes levothyrox [facility] ne 50 mcg 3-24 ine 50 mcg ity of tablet 13:15: tablet [address] aspirin 81 Yes 81mg Take 81 mg U nivers mg chewable 3-24 by mouth ity of tablet 13:15: daily. [address] desvenlafax Yes 1{tbl} Take 1 Un [...] 500 mg ity of tablet 13:15: tablet [address] aspirin 81 Yes aspirin 81 U nivers mg EC 3-24 mg ity of tablet 13:15: tablet,del [place] [address] ayed Medical release Branch Take 1 tablet every day by oral route. carvediloL Yes Coreg 25 Uni vers (COREG) 25 3-24 mg tablet ity of mg tablet 13:15: Take 1 [place] [address] tablet Medical twice a Branch day by oral route. simvastatin Yes simvastati [facility] 20 mg 3-24 n 20 mg ity of tablet 13:15: tablet [address] traZODone Yes trazodone Uni vers 50 mg 3-24 50 mg ity of tablet 13:15: tablet [address] desvenlafax Yes Univer s ine 3-24 ity of succinate 13:15: [place] (PRISTIQ) 54 Medical 25 mg Tb24 Branch QUEtiapine Yes Seroquel Uni vers (SEROQUEL) 3-24 200 mg ity of 200 mg 13:15: tablet [place] tablet 54 Take 1 Medical tablet Branch twice a day by oral route. levothyroxi Yes levothyrox [facility] ne 50 mcg 3-24 ine 50 mcg ity of tablet 13:15: tablet [address] aspirin 81 Yes 81mg Take 81 mg U nivers mg chewable 3-24 by mouth ity of tablet 13:15: daily. [address] desvenlafax Yes 1{tbl} Take 1 Un [...] 500 mg ity of tablet 13:15: tablet [address] aspirin 81 Yes aspirin 81 U nivers mg EC 3-24 mg ity of tablet 13:15: tablet,del [place] [address] ayed Medical release Branch Take 1 tablet every day by oral route. carvediloL Yes Coreg 25 Uni vers (COREG) 25 3-24 mg tablet ity of mg tablet 13:15: Take 1 [place] [address] tablet Medical twice a Branch day by oral route. simvastatin Yes simvastati [facility] 20 mg 3-24 n 20 mg ity of tablet 13:15: tablet [address] traZODone Yes trazodone Uni vers 50 mg 3-24 50 mg ity of tablet 13:15: tablet [address] desvenlafax Yes Univer s ine 3-24 ity of succinate 13:15: [place] (PRISTIQ) [address] [place] [address] 25 mg Tb24 Branch QUEtiapine Yes Seroquel Uni vers (SEROQUEL) 3-24 200 mg ity of 200 mg 13:15: tablet [place] tablet 54 Take 1 Medical tablet Branch twice a day by oral route. levothyroxi Yes levothyrox [facility] ne 50 mcg 3-24 ine 50 mcg ity of tablet 13:15: tablet [address] aspirin 81 Yes 81mg Take 81 mg U nivers mg chewable 3-24 by mouth ity of tablet 13:15: daily. [address] desvenlafax Yes 1{tbl} Take 1 Un fernanda ine 3-24 tablet by ity of succinate 13:15: mouth [place] (PRISTIQ) 54 daily. Medical 25 mg Tb24 Branch Cholecalcif Yes Vitamin D3 [facility], 3-24 10 mcg ity of Vitamin D3, 13:15: (400 unit) [place] 10 mcg (400 54 capsule Medic al unit) Take by Branch capsule oral route. metFORMIN Yes metformin [facility] vers 500 mg 3-24 500 mg ity of tablet 13:15: tablet [address] aspirin 81 Yes aspirin 81 U nivers mg EC 3-24 mg ity of tablet 13:15: tablet,del [place] [address] ayed Medical release Branch Take 1 tablet every day by oral route. carvediloL Yes Coreg 25 Uni vers (COREG) 25 3-24 mg tablet ity of mg tablet 13:15: Take 1 [place] [address] tablet Medical twice a Branch day by oral route. simvastatin Yes simvastati [facility] 20 mg 3-24 n 20 mg ity of tablet 13:15: tablet [address] traZODone Yes trazodone Uni vers 50 mg 3-24 50 mg ity of tablet 13:15: tablet [address] desvenlafax Yes Univer s ine 3-24 ity of succinate 13:15: [place] (PRISTIQ) [address] [place] [address] 25 mg Tb24 Branch QUEtiapine Yes Seroquel Uni vers (SEROQUEL) 3-24 200 mg ity of 200 mg 13:15: tablet [place] [address] Take 1 Medical tablet Branch twice a day by oral route. levothyroxi Yes levothyrox [facility] ne 50 mcg 3-24 ine 50 mcg ity of tablet 13:15: tablet [address] aspirin 81 Yes 81mg Take 81 mg U nivers mg chewable 3-24 by mouth ity of tablet 13:15: daily. [address] desvenlafax Yes 1{tbl} Take 1 Un f[facility]anda ine 3-24 tablet by ity of succinate 13:15: mouth [place] (PRISTIQ) 54 daily. Medical 25 mg Tb24 Branch Cholecalcif Yes Vitamin D3 [facility], 3-24 10 mcg ity of Vitamin D3, 13:15: (400 unit) [place] 10 mcg (400 54 capsule Medic al unit) Take by Branch capsule oral route. metFORMIN Yes metformin [facility] vers 500 mg 3-24 500 mg ity of tablet 13:15: tablet [address] aspirin 81 Yes aspirin 81 U nivers mg EC 3-24 mg ity of tablet 13:15: tablet,del [place] [address] ayed Medical release Branch Take 1 tablet every day by oral route. carvediloL Yes Coreg 25 Uni vers (COREG) 25 3-24 mg tablet ity of mg tablet 13:15: Take 1 [place] [address] tablet Medical twice a Branch day by oral route. simvastatin Yes simvastati [facility] 20 mg 3-24 n 20 mg ity of tablet 13:15: tablet [address] traZODone Yes trazodone Uni vers 50 mg 3-24 50 mg ity of tablet 13:15: tablet [address] desvenlafax Yes Univer s ine 3-24 ity of succinate 13:15: [place] (PRISTIQ) Medical 25 mg Tb24 [place] QUEtiapine Yes Seroquel Uni vers (SEROQUEL) 3-24 200 mg ity of 200 mg 13:15: tablet [place] [address] Take 1 Medical tablet Branch twice a day by oral route. levothyroxi Yes levothyrox [facility] ne 50 mcg 3-24 ine 50 mcg ity of tablet 13:15: tablet [address] aspirin 81 Yes 81mg Take 81 mg U nivers mg chewable 3-24 by mouth ity of tablet 13:15: daily. [address] desvenlafax Yes 1{tbl} Take 1 Un f[facility]anda ine 3-24 tablet by ity of succinate 13:15: mouth [place] (PRISTIQ) 54 daily. Medical 25 mg Tb24 Branch Cholecalcif Yes Vitamin D3 [facility], 3-24 10 mcg ity of Vitamin D3, 13:15: (400 unit) [place] 10 mcg (400 54 capsule Medic al unit) Take by Branch capsule oral route. metFORMIN Yes metformin [facility] vers 500 mg 3-24 500 mg ity of tablet 13:15: tablet [address] aspirin 81 Yes aspirin 81 U nivers mg EC 3-24 mg ity of tablet 13:15: tablet,del [address] Medical release [place] Take 1 tablet every day by oral route. carvediloL Yes Coreg 25 Uni vers (COREG) 25 3-24 mg tablet ity of mg tablet 13:15: Take 1 [place] [address] tablet Medical twice a Branch day by oral route. simvastatin Yes simvastati [facility] 20 mg 3-24 n 20 mg ity of tablet 13:15: tablet [address] traZODone Yes trazodone Uni vers 50 mg 3-24 50 mg ity of tablet 13:15: tablet [address] desvenlafax Yes Univer s ine 3-24 ity of succinate 13:15: [place] (PRISTIQ) 54 Medical 25 mg Tb24 [place] QUEtiapine Yes Seroquel Uni vers (SEROQUEL) 3-24 200 mg ity of 200 mg 13:15: tablet [place] [address] Take 1 Medical tablet [place] twice a day by oral route. levothyroxi Yes levothyrox [facility] ne 50 mcg 3-24 ine 50 mcg ity of tablet 13:15: tablet [address] aspirin 81 Yes 81mg Take 81 mg U nivers mg chewable 3-24 by mouth ity of tablet 13:15: daily. [address] desvenlafax Yes 1{tbl} Take 1 Un f[facility] ine 3-24 tablet by ity of succinate 13:15: mouth [place] (PRISTIQ) 54 daily. Medical 25 mg Tb24 Branch Cholecalcif Yes Vitamin D3 [facility], 3-24 10 mcg ity of Vitamin D3, 13:15: (400 unit) [place] 10 mcg (400 54 capsule Medic al unit) Take by Branch capsule oral route. metFORMIN Yes metformin [facility] vers 500 mg 3-24 500 mg ity of tablet 13:15: tablet [address] aspirin 81 Yes aspirin 81 U nivers mg EC 3-24 mg ity of tablet 13:15: tablet,del [address] release [place] Take 1 tablet every day by oral route. carvediloL Yes Coreg 25 Uni vers (COREG) 25 3-24 mg tablet ity of mg tablet 13:15: Take 1 [place] [address] tablet Medical twice a Branch day by oral route. simvastatin Yes simvastati [facility] 20 mg 3-24 n 20 mg ity of tablet 13:15: tablet [address] traZODone Yes trazodone Uni vers 50 mg 3-24 50 mg ity of tablet 13:15: tablet [address] desvenlafax Yes Univer s ine 3-24 ity of succinate 13:15: [place] (PRISTIQ) 54 Medical 25 mg Tb24 Branch QUEtiapine Yes Seroquel Uni vers (SEROQUEL) 3-24 200 mg ity of 200 mg 13:15: tablet [place] tablet 54 Take 1 Medical tablet Branch twice a day by oral route. levothyroxi Yes levothyrox [facility] ne 50 mcg 3-24 ine 50 mcg ity of tablet 13:15: tablet [address] aspirin 81 Yes 81mg Take 81 mg U nivers mg chewable 3-24 by mouth ity of tablet 13:15: daily. [address] desvenlafax Yes 1{tbl} Take 1 Un frenanda ine 3-24 tablet by ity of succinate 13:15: mouth [place] (PRISTIQ) 54 daily. Medical 25 mg Tb24 Branch Cholecalcif Yes Vitamin D3 [facility], 3-24 10 mcg ity of Vitamin D3, 13:15: (400 unit) [place] 10 mcg (400 54 capsule Medic al unit) Take by Branch capsule oral route. metFORMIN Yes metformin [facility] vers 500 mg 3-24 500 mg ity of tablet 13:15: tablet [address] aspirin 81 Yes aspirin 81 U nivers mg EC 3-24 mg ity of tablet 13:15: tablet,del [place] [address] ayed Medical release Branch Take 1 tablet every day by oral route. carvediloL Yes Coreg 25 Uni vers (COREG) 25 3-24 mg tablet ity of mg tablet 13:15: Take 1 [place] [address] tablet Medical twice a Branch day by oral route. simvastatin Yes simvastati [facility] 20 mg 3-24 n 20 mg ity of tablet 13:15: tablet [address] Branch traZODone Yes trazodone Uni vers 50 mg 3-24 50 mg ity of tablet 13:15: tablet [address] desvenlafax Yes Univer s ine 3-24 ity of succinate 13:15: [place] (PRISTIQ) 54 Medical 25 mg Tb24 Branch QUEtiapine Yes Seroquel Uni vers (SEROQUEL) 3-24 200 mg ity of 200 mg 13:15: tablet [place] tablet 54 Take 1 Medical tablet Branch twice a day by oral route. levothyroxi Yes levothyrox [facility] ne 50 mcg 3-24 ine 50 mcg ity of tablet 13:15: tablet [address] aspirin 81 Yes 81mg Take 81 mg U nivers mg chewable 3-24 by mouth ity of tablet 13:15: daily. [address] desvenlafax Yes 1{tbl} Take 1 Un f[facility]anda ine 3-24 tablet by ity of succinate 13:15: mouth [place] (PRISTIQ) 54 daily. Medical 25 mg Tb24 Branch Cholecalcif Yes Vitamin D3 [facility], 3-24 10 mcg ity of Vitamin D3, 13:15: (400 unit) [place] 10 mcg (400 54 capsule Medic al unit) Take by Branch capsule oral route. metFORMIN Yes metformin [facility] vers 500 mg 3-24 500 mg ity of tablet 13:15: tablet [address] aspirin 81 Yes aspirin 81 U nivers mg EC 3-24 mg ity of tablet 13:15: tablet,del [place] [address] ayed Medical release Branch Take 1 tablet every day by oral route. carvediloL Yes Coreg 25 Uni vers (COREG) 25 3-24 mg tablet ity of mg tablet 13:15: Take 1 [place] [address] tablet Medical twice a Branch day by oral route. simvastatin Yes simvastati [facility] 20 mg 3-24 n 20 mg ity of tablet 13:15: tablet [address] traZODone Yes trazodone Uni vers 50 mg 3-24 50 mg ity of tablet 13:15: tablet [place] 54 Medical Branch desvenlafax 0 Yes Univer s ine 3-24 ity of succinate 13:15: [place] (PRISTIQ) 54 Medical 25 mg Tb24 Branch QUEtiapine 2021-0 Yes Seroquel Uni vers (SEROQUEL) 3-24 200 mg ity of 200 mg 13:15: tablet [place] tablet 54 Take 1 Medical tablet Branch twice a day by oral route. levothyroxi 2021-0 Yes levothyrox [facility] ne 50 mcg 3-24 ine 50 mcg ity of tablet 13:15: tablet [place] 54 Medical Branch metFORMIN 2021-0 Yes 500mg Take 1 [...] 00:00: mouth 00 daily (with breakfast) hydrOXYzine 2-0 Yes [id number] 25mg Take 1 [facility] 25 mg 1-29 tablet by ity of tablet 00:00: mouth [place] 00 every 6 Medical (six) Branch hours as needed for Itching or Anxiety. methylPREDN 2022-0 Yes [id number] Take by [facility] ISolone 1-29 mouth ity of (MEDROL, 00:00: SEE-INSTRU Anton as MIRACLE,) 4 mg 00 CTIONS. Medica l tablets follow Branch package directions hydrOXYzine 2-0 Yes [id number] 25mg Take 1 [facility] 25 mg 1-29 tablet by ity of tablet 00:00: mouth [place] 00 every 6 Medical (six) Branch hours as needed for Itching or Anxiety. methylPREDN 2022-0 Yes [id number] Take by [facility] ISolone 1-29 mouth ity of (MEDROL, 00:00: SEE-INSTRU [place] MIRACLE,) 4 mg 00 CTIONS. Medica l tablets follow Branch package directions hydrOXYzine 2-0 Yes [id number] 25mg Take 1 [facility] 25 mg 1-29 tablet by ity of tablet 00:00: mouth [place] 00 every 6 Medical (six) Branch hours as needed for Itching or Anxiety. methylPREDN 2022-0 Yes [id number] Take by [facility] ISolone 1-29 mouth ity of (MEDROL, 00:00: SEE-INSTRU [place]LE,) 4 mg 00 CTIONS. Medica l tablets follow Branch package directions hydrOXYzine 2-0 Yes [id number] 25mg Take 1 [facility] 25 mg 1-29 tablet by ity of tablet 00:00: mouth [place] 00 every 6 Medical (six) Branch hours as needed for Itching or Anxiety. methylPREDN 2022-0 Yes [id number] Take by [facility] ISolone 1-29 mouth ity of (MEDROL, 00:00: SEE-INSTRU [place]LE,) 4 mg 00 CTIONS. Medica l tablets follow Branch package directions hydrOXYzine 2022-0 Yes [id number] 25mg Take 1 [facility] 25 mg 1-29 tablet by ity of tablet 00:00: mouth [place] 00 every 6 Medical (six) Branch hours as needed for Itching or Anxiety. hydrOXYzine 2022-0 Yes [id number] 25mg Take 1 [facility] 25 mg 1-29 tablet by ity of tablet 00:00: mouth [place] 00 every 6 Medical (six) Branch hours as needed for Itching or Anxiety. hydrOXYzine 2021-0 Yes [id number] 25mg Take 1 [facility] 25 mg 1-29 tablet by ity of tablet 00:00: mouth [place] 00 every 6 Medical (six) Branch hours as needed for Itching or Anxiety. hydrOXYzine 2021-0 Yes [id number] 25mg Take 1 [facility] 25 mg 1-29 tablet by ity of tablet 00:00: mouth [place] 00 every 6 Medical (six) Branch hours as needed for Itching or Anxiety. hydrOXYzine 2021-0 Yes [id number] 25mg Take 1 [facility] 25 mg 1-29 tablet by ity of tablet 00:00: mouth [place] 00 every 6 Medical (six) Branch hours as needed for Itching or Anxiety. hydrOXYzine 2021-0 Yes [id number] 25mg Take 1 [facility] 25 mg 1-29 tablet by ity of tablet 00:00: mouth [place] 00 every 6 Medical (six) Branch hours as needed for Itching or Anxiety. hydrOXYzine 2021-0 Yes [id number] 25mg Take 1 [facility] 25 mg 1-29 tablet by ity of tablet 00:00: mouth [place] 00 every 6 Medical (six) Branch hours as needed for Itching or Anxiety. hydrOXYzine 2021-0 Yes [id number] 25mg Take 1 [facility] 25 mg 1-29 tablet by ity of tablet 00:00: mouth [place] 00 every 6 Medical (six) Branch hours as needed for Itching or Anxiety. hydrOXYzine 2021-0 Yes [id number] 25mg Take 1 [facility] 25 mg 1-29 tablet by ity of tablet 00:00: mouth [place] 00 every 6 Medical (six) Branch hours as needed for Itching or Anxiety. hydrOXYzine 2021-0 Yes [id number] 25mg Take 1 [facility] 25 mg 1-29 tablet by ity of tablet 00:00: mouth [place] 00 every 6 Medical (six) Branch hours as needed for Itching or Anxiety. hydrOXYzine 2021-0 Yes [id number] 25mg Take 1 [facility] 25 mg 1-29 tablet by ity of tablet 00:00: mouth [place] 00 every 6 Medical (six) Branch hours as needed for Itching or Anxiety. hydrOXYzine 2021-0 Yes [id number] 25mg Take 1 [facility] 25 mg 1-29 tablet by ity of tablet 00:00: mouth [place] 00 every 6 Medical (six) Branch hours as needed for Itching or Anxiety. hydrOXYzine 2021-0 Yes [id number] 25mg Take 1 [facility] 25 mg 1-29 tablet by ity of tablet 00:00: mouth [place] 00 every 6 Medical (six) Branch hours as needed for Itching or Anxiety. hydrOXYzine 2021-0 Yes [id number] 25mg Take 1 [facility] 25 mg 1-29 tablet by ity of tablet 00:00: mouth [place] 00 every 6 Medical (six) Branch hours as needed for Itching or Anxiety. hydrOXYzine 2021-0 Yes [id number] 25mg Take 1 [facility] 25 mg 1-29 tablet by ity of tablet 00:00: mouth [place] 00 every 6 Medical (six) Branch hours as needed for Itching or Anxiety. hydrOXYzine 2021-0 Yes [id number] 25mg Take 1 [facility] 25 mg 1-29 tablet by ity of tablet 00:00: mouth [place] 00 every 6 Medical (six) Branch hours as needed for Itching or Anxiety. hydrOXYzine 2021-0 Yes [id number] 25mg Take 1 [facility] 25 mg 1-29 tablet by ity of tablet 00:00: mouth [place] 00 every 6 Medical (six) Branch hours as needed for Itching or Anxiety. methylPREDN 2021- No [id number] [facility] ([facility], 00:00: 00:[place] SEE-INSTRU [place] MIRACLE,) 4 mg 00 :00 CTIONS. Medica l tablets follow Branch package directions methylPREDN 2021- No [id number] Take by [facility] [place] [facility] ISolone 11-09 mouth ity of (MEDROL, 00:00: 00:00 [place]-INSTRU [place] MIR[place]LE,) 4 mg 00 :00 CTIONS. Medica l tablets follow Branch package directions methylPREDN 2021- No [id number] Take by [facility] [place] [facility] ISolone 11-09 mouth ity of (MEDROL, 00:00: 00:00 [place]-INSTRU [place] MIR[place]LE,) 4 mg 00 :00 CTIONS. Medica l tablets follow Branch package directions methylPREDN 2021- No [id number] Take by [facility] 11-09 mouth ity of (MEDROL, 00:00: 00:00 SEE-INSTRU [place] MIR[place]LE,) 4 mg 00 :00 CTIONS. Medica l tablets follow Branch package directions methylPREDN 2021- No [id number] Take by [facility] 11-09 mouth ity of (MEDROL, 00:00: 00:00 SEE-INSTRU [place]IR[place]LE,) 4 mg 00 :00 CTIONS. Medica l tablets follow Branch package directions methylPREDN 2021- No [id number] Take by [facility] 11-09 mouth ity of (MEDROL, 00:00: 00:00 [place]-INSTRU [place] MIR[place]LE,) 4 mg 00 :00 CTIONS. Medica l tablets follow Branch package directions methylPREDN 2021- No [id number] Take by [facility] 11-09 mouth ity of (MEDROL, 00:00: 00:00 [...] ity of mg tablet 00:00: MOUTH [place] EVERY 12 Medical HOURS Branch UNTIL ALL [...] Medical HOURS Branch NEEDED FOR PAIN metroNIDAZO 2021-2021- No TAKE 1 [facility] vers LE 500 mg 1-18 12-29 TABLET BY ity of tablet 00:00: 00:00 MOUTH [place] 00 :00 EVERY 8 Medical HOURS Branch UNTIL ALL TAKEN acetaminoph 2021- No TAKE 2 [facility] vers en-codeine 1-18 12-29 TABLETS BY it y of 300-30 mg 00:00: 00:00 MOUTH [place] tablet 00 :00 EVERY 6 Medical HOURS Branch NEEDED FOR PAIN metroNIDAZO 2021-2021- No TAKE 1 [facility] vers LE 500 mg 10-29 TABLET BY ity of tablet 00:00: 00:00 MOUTH [place] 00 :00 EVERY 8 Medical HOURS Branch UNTIL ALL TAKEN acetaminoph 2021- No TAKE 2 [facility] vers en-codeine 10-2929 TABLETS BY it y of 300-30 mg 00:00: 00:00 MOUTH [place] tablet 00 :00 EVERY 6 Medical HOURS Branch NEEDED FOR PAIN metroNIDAZO 2021-2021- No TAKE 1 [facility] vers LE 500 mg 10-29 TABLET BY ity of tablet 00:00: 00:00 MOUTH [place] 00 :00 EVERY 8 Medical HOURS Branch UNTIL ALL TAKEN acetaminoph 2021-2021- No TAKE 2 [facility] vers en-codeine 10-29 TABLETS BY it y of 300-30 mg 00:00: 00:00 MOUTH [place] tablet 00 :00 EVERY 6 Medical HOURS Branch NEEDED FOR PAIN metroNIDAZO 2021-2021- No TAKE 1 [facility] vers LE 500 mg 10-29 TABLET BY ity of tablet 00:00: 00:00 MOUTH [place] 00 :00 EVERY 8 Medical HOURS Branch UNTIL ALL TAKEN acetaminoph 2021-2021- No TAKE 2 [facility] vers en-codeine 10-29 TABLETS BY it y of 300-30 mg 00:00: 00:00 MOUTH [place] tablet 00 :00 EVERY 6 Medical HOURS Branch NEEDED FOR PAIN metroNIDAZO 2021-2021- No TAKE 1 [facility] vers LE 500 mg 10-29 TABLET BY ity of tablet 00:00: 00:00 MOUTH [place] 00 :00 EVERY 8 Medical HOURS Branch UNTIL ALL TAKEN acetaminoph 2021-2021- No TAKE 2 [facility] vers en-codeine 10-29 TABLETS BY it y of 300-30 mg 00:00: 00:00 MOUTH [place] tablet 00 :00 EVERY 6 Medical HOURS Branch NEEDED FOR PAIN metroNIDAZO 2021-2021- No TAKE 1 [facility] vers LE 500 mg 10-29 TABLET BY ity of tablet 00:00: 00:00 MOUTH [place] 00 :00 EVERY 8 Medical HOURS Branch UNTIL ALL TAKEN levothyroxi 2021- Yes [id number] 125ug Take 1 [facility] ne 125 mcg 1-12 tablet by ity of tablet 00:00: mouth [place] 00 every Medical morning. Branch simvastatin 0 Yes [id number] 20mg Take 1 [facility] 20 mg 1-12 tablet by ity of tablet 00:00: mouth at [place] 00 bedtime. Medical Branch Insulin 0 Yes [id number] 15U inject 15 [facility] Glargine 1-12 Units ity of 100 unit/mL 00:00: under the [place] (3 mL) 00 skin daily Medical injection before [place] breakfast. levothyroxi 0 Yes [id number] 125ug Take 1 [facility] ne 125 mcg 1-12 tablet by ity of tablet 00:00: mouth [place] 00 every Medical morning. Branch simvastatin Yes [id number] 20mg Take 1 [facility] 20 mg 1-12 tablet by ity of tablet 00:00: mouth at [place] 00 bedtime. Medical [place] Insulin 0 Yes [id number] 15U inject 15 [facility] Glargine 1-12 Units ity of 100 unit/mL 00:00: under the [place] (3 mL) 00 skin daily Medical injection before [place] breakfast. levothyroxi 0 Yes [id number] 125ug Take 1 [facility] ne 125 mcg 1-12 tablet by ity of tablet 00:00: mouth [place] 00 every Medical morning. Branch simvastatin Yes [id number] 20mg Take 1 [facility] 20 mg 1-12 tablet by ity of tablet 00:00: mouth at [place] 00 bedtime. Medical Branch Insulin 2021-0 Yes [id number] 15U inject 15 [facility] Glargine 1-12 Units ity of 100 unit/mL 00:00: under the [place] (3 mL) 00 skin daily Medical injection before [place] breakfast. levothyroxi 2021-0 Yes [id number] 125ug Take 1 [facility] ne 125 mcg 1-12 tablet by ity of tablet 00:00: mouth [place] 00 every Medical morning. Branch simvastatin 0 Yes [id number] 20mg Take 1 [facility] 20 mg 1-12 tablet by ity of tablet 00:00: mouth at [place] 00 bedtime. Medical Branch Insulin 0 Yes [id number] 15U inject 15 [facility] Glargine 1-12 Units ity of 100 unit/mL 00:00: under the [place] (3 mL) 00 skin daily Medical injection before [place] breakfast. levothyroxi 2021-0 Yes [id number] 125ug Take 1 [facility] ne 125 mcg 1-12 tablet by ity of tablet 00:00: mouth [place] 00 every Medical morning. Branch simvastatin 2021-0 Yes [id number] 20mg Take 1 [facility] 20 mg 1-12 tablet by ity of tablet 00:00: mouth at [place] 00 bedtime. Medical Branch Insulin 2021-0 Yes [id number] 15U inject 15 [facility] Glargine 1-12 Units ity of 100 unit/mL 00:00: under the [place] (3 mL) 00 skin daily Medical injection before [place] breakfast. levothyroxi 2021-0 Yes [id number] 125ug Take 1 [facility] ne 125 mcg 1-12 tablet by ity of tablet 00:00: mouth [place] 00 every Medical morning. Branch simvastatin 0 Yes [id number] 20mg Take 1 [facility] 20 mg 1-12 tablet by ity of tablet 00:00: mouth at [place] [address] bedtime. Medical Branch Insulin 2021-0 Yes [id number] 15U inject 15 [facility] Glargine 1-12 Units ity of 100 unit/mL 00:00: under the [place] (3 mL) 00 skin daily Medical injection before [place] breakfast. levothyroxi 2021-0 Yes [id number] 125ug Take 1 [facility] ne 125 mcg 1-12 tablet by ity of tablet 00:00: mouth [place] 00 every Medical morning. Branch simvastatin 2021-0 Yes [id number] 20mg Take 1 [facility] 20 mg 1-12 tablet by ity of tablet 00:00: mouth at [place] 00 bedtime. Medical Branch Insulin 2021-0 Yes [id number] 15U inject 15 [facility] Glargine 1-12 Units ity of 100 unit/mL 00:00: under the [place] (3 mL) 00 skin daily Medical injection before [place] breakfast. levothyroxi 2021-0 Yes [id number] 125ug Take 1 [facility] ne 125 mcg 1-12 tablet by ity of tablet 00:00: mouth [place] 00 every Medical morning. Branch simvastatin 2021-0 Yes [id number] 20mg Take 1 [facility] 20 mg 1-12 tablet by ity of tablet 00:00: mouth at [place] 00 bedtime. Medical Branch Insulin 2021-0 Yes [id number] 15U inject 15 [facility] Glargine 1-12 Units ity of 100 unit/mL 00:00: under the [place] (3 mL) 00 skin daily Medical injection before [place] breakfast. levothyroxi 0 Yes [id number] 125ug Take 1 [facility] ne 125 mcg 1-12 tablet by ity of tablet 00:00: mouth [place] 00 every Medical morning. Branch simvastatin 0 Yes [id number] 20mg Take 1 [facility] 20 mg 1-12 tablet by ity of tablet 00:00: mouth at [place] 00 bedtime. Medical Branch Insulin 0 Yes [id number] 15U inject 15 [facility] Glargine 1-12 Units ity of 100 unit/mL 00:00: under the [place] (3 mL) 00 skin daily Medical injection before [place] breakfast. levothyroxi Yes [id number] 125ug Take 1 [facility] ne 125 mcg 1-12 tablet by ity of tablet 00:00: mouth [place] 00 every Medical morning. Branch simvastatin 2021-0 Yes [id number] 20mg Take 1 [facility] 20 mg 1-12 tablet by ity of tablet 00:00: mouth at [place] 00 bedtime. Medical Branch Insulin 0 Yes [id number] 15U inject 15 [facility] Glargine 1-12 Units ity of 100 unit/mL 00:00: under the [place] (3 mL) 00 skin daily Medical injection before [place] breakfast. levothyroxi 2021-0 Yes [id number] 125ug Take 1 [facility] ne 125 mcg 1-12 tablet by ity of tablet 00:00: mouth [place] 00 every Medical morning. Branch simvastatin 2021-0 Yes [id number] 20mg Take 1 [facility] 20 mg 1-12 tablet by ity of tablet 00:00: mouth at [place] 00 bedtime. Medical Branch Insulin 0 Yes [id number] 15U inject 15 [facility] Glargine 1-12 Units ity of 100 unit/mL 00:00: under the [place] (3 mL) 00 skin daily Medical injection before [place] breakfast. levothyroxi 2021-0 Yes [id number] 125ug Take 1 [facility] ne 125 mcg 1-12 tablet by ity of tablet 00:00: mouth [place] 00 every Medical morning. Branch simvastatin 2021-0 Yes [id number] 20mg Take 1 [facility] 20 mg 1-12 tablet by ity of tablet 00:00: mouth at [place] 00 bedtime. Medical [place] Insulin 0 Yes [id number] 15U inject 15 [facility] Glargine 1-12 Units ity of 100 unit/mL 00:00: under the [place] (3 mL) 00 skin daily Medical injection before [place] breakfast. levothyroxi 0 Yes [id number] 125ug Take 1 [facility] ne 125 mcg 1-12 tablet by ity of tablet 00:00: mouth [place] 00 every Medical morning. Branch simvastatin Yes [id number] 20mg Take 1 [facility] 20 mg 1-12 tablet by ity of tablet 00:00: mouth at [place] 00 bedtime. Medical [place] Insulin Yes [id number] 15U inject 15 [facility] Glargine 1-12 Units ity of 100 unit/mL 00:00: under the [place] (3 mL) 00 skin daily Medical injection before [place] breakfast. levothyroxi Yes [id number] 125ug Take 1 [facility] ne 125 mcg 1-12 tablet by ity of tablet 00:00: mouth [place] 00 every Medical morning. Branch simvastatin 0 Yes [id number] 20mg Take 1 [facility] 20 mg 1-12 tablet by ity of tablet 00:00: mouth at [place] 00 bedtime. Medical [place] Insulin 0 Yes [id number] 15U inject 15 [facility] Glargine 1-12 Units ity of 100 unit/mL 00:00: under the [place] (3 mL) 00 skin daily Medical injection before [place] breakfast. levothyroxi 2021- Yes [id number] 125ug Take 1 [facility] ne 125 mcg 1-12 tablet by ity of tablet 00:00: mouth [place] 00 every Medical morning. Branch simvastatin 0 Yes [id number] 20mg Take 1 [facility] 20 mg 1-12 tablet by ity of tablet 00:00: mouth at [place] 00 bedtime. Medical [place] Insulin Yes [id number] 15U inject 15 [facility] Glargine 1-12 Units ity of 100 unit/mL 00:00: under the [place] (3 mL) 00 skin daily Medical injection before [place] breakfast. levothyroxi 2021- Yes [id number] 125ug Take 1 [facility] ne 125 mcg 1-12 tablet by ity of tablet 00:00: mouth [place] 00 every Medical morning. Branch simvastatin 0 Yes [id number] 20mg Take 1 [facility] 20 mg 1-12 tablet by ity of tablet 00:00: mouth at [place] 00 bedtime. Medical Branch Insulin 2021-0 Yes [id number] 15U inject 15 [facility] Glargine 1-12 Units ity of 100 unit/mL 00:00: under the [place] (3 mL) 00 skin daily Medical injection before [place] breakfast. levothyroxi 2021-0 Yes [id number] 125ug Take 1 [facility] ne 125 mcg 1-12 tablet by ity of tablet 00:00: mouth [place] 00 every Medical morning. Branch simvastatin 0 Yes [id number] 20mg Take 1 [facility] 20 mg 1-12 tablet by ity of tablet 00:00: mouth at [place] 00 bedtime. Medical Branch Insulin 2021-0 Yes [id number] 15U inject 15 [facility] Glargine 1-12 Units ity of 100 unit/mL 00:00: under the [place] (3 mL) 00 skin daily Medical injection before [place] breakfast. levothyroxi 2021-0 Yes [id number] 125ug Take 1 [facility] ne 125 mcg 1-12 tablet by ity of tablet 00:00: mouth [place] 00 every Medical morning. Branch simvastatin 0 Yes [id number] 20mg Take 1 [facility] 20 mg 1-12 tablet by ity of tablet 00:00: mouth at [place] 00 bedtime. Medical Branch Insulin 2021-0 Yes [id number] 15U inject 15 [facility] Glargine 1-12 Units ity of 100 unit/mL 00:00: under the [place] (3 mL) 00 skin daily Medical injection before [place] breakfast. levothyroxi 2021-0 Yes [id number] 125ug Take 1 [facility] ne 125 mcg 1-12 tablet by ity of tablet 00:00: mouth [place] 00 every Medical morning. Branch simvastatin 2021-0 Yes [id number] 20mg Take 1 [facility] 20 mg 1-12 tablet by ity of tablet 00:00: mouth at [place] 00 bedtime. Medical Branch Insulin 2021-0 Yes [id number] 15U inject 15 [facility] Glargine 1-12 Units ity of 100 unit/mL 00:00: under the [place] (3 mL) 00 skin daily Medical injection before Branch breakfast. levothyroxi Yes [id number] 125ug Take 1 [facility] ne 125 mcg 1-12 tablet by ity of tablet 00:00: mouth [place] 00 every Medical morning. Branch simvastatin Yes [id number] 20mg Take 1 [facility] 20 mg 1-12 tablet by ity of tablet 00:00: mouth at [place] 00 bedtime. Medical Branch Insulin Yes [id number] 15U inject 15 [facility] Glargine 1-12 Units ity of 100 unit/mL 00:00: under the [place] (3 mL) 00 skin daily Medical injection before Branch breakfast. levothyroxi Yes [id number] 125ug Take 1 [facility] ne 125 mcg 1-12 tablet by ity of tablet 00:00: mouth [place] 00 every Medical morning. Branch simvastatin Yes [id number] 20mg Take 1 [facility] 20 mg 1-12 tablet by ity of tablet 00:00: mouth at [place] [address] bedtime. Medical Branch Insulin Yes [id number] 15U inject 15 [facility] Glargine 1-12 Units ity of 100 unit/mL 00:00: under the [place] (3 mL) 00 skin daily Medical injection before Branch breakfast. Levothyroxi Yes 1{tbl} Take 1 [place] Sodium 1-12 tablet by [place] [facility] 125 MCG 00:00: mouth [place] Tablet 00 every 24 hours Simvastatin 0 Yes simvastati [place] 20 MG oral 1-12 n 20 mg [facility] Tablet 00:00: tablet 00 Levothyroxi 0 Yes 1{tbl} Take 1 [place] Sodium 1-12 tablet by [facility] 125 MCG 00:00: mouth [place] Tablet 00 every 24 hours Simvastatin 2021-0 Yes simvastati [place] 20 MG oral 1-12 n 20 mg [facility] Tablet 00:00: tablet 00 Simvastatin 0 Yes simvastati [place] 20 MG oral 1-12 n 20 mg [place] [facility] Tablet 00:00: tablet 00 Simvastatin 2021-0 Yes 20mg Take 20 mg [place] 20 MG oral 1-12 by mouth [place] Tablet 00:00: nightly 00 methocarbam 2021-1 Yes [id number] 500mg Take 1 [facility] oL 2-24 tablet by ity of (ROBAXIN) 00:00: mouth 4 [place] 500 mg 00 (four) Medical tablet times Branch daily. phenazopyri 2020-10 Yes [id number] 200mg Take 2 [facility] dine 100 mg 2-24 tablets by it y of tablet 00:00: mouth 3 [place] 00 (three) Medical times Branch daily. methocarbam 2020-10 Yes [id number] 500mg Take 1 [facility] oL 2-24 tablet by ity of (ROBAXIN) 00:00: mouth 4 [place] 500 mg 00 (four) Medical tablet times Branch daily. phenazopyri 2020-10 Yes [id number] 200mg Take 2 [facility] dine 100 mg 2-24 tablets by it y of tablet 00:00: mouth 3 [place] 00 (three) Medical times Branch daily. methocarbam 2020-10 Yes [id number] 500mg Take 1 [facility] oL 2-24 tablet by ity of (ROBAXIN) 00:00: mouth 4 [place] 500 mg 00 (four) Medical tablet times Branch daily. phenazopyri 2020-10 Yes [id number] 200mg Take 2 [facility] dine 100 mg 2-24 tablets by it y of tablet 00:00: mouth 3 [place] 00 (three) Medical times Branch daily. methocarbam 2020-10 Yes [id number] 500mg Take 1 [facility] oL 2-24 tablet by ity of (ROBAXIN) 00:00: mouth 4 [place] 500 mg 00 (four) Medical tablet times Branch daily. phenazopyri 2020-10 Yes [id number] 200mg Take 2 [facility] dine 100 mg 2-24 tablets by it y of tablet 00:00: mouth 3 [place] 00 (three) Medical times Branch daily. methocarbam 2020-10 Yes [id number] 500mg Take 1 [facility] oL 2-24 tablet by ity of (ROBAXIN) 00:00: mouth 4 [place] 500 mg 00 (four) Medical tablet times Branch daily. phenazopyri 2020-10 Yes [id number] 200mg Take 2 [facility] dine 100 mg 2-24 tablets by it y of tablet 00:00: mouth 3 [place] 00 (three) Medical times Branch daily. methocarbam 2020-10 Yes [id number] 500mg Take 1 [facility] oL 2-24 tablet by ity of (ROBAXIN) 00:00: mouth 4 [place] 500 mg 00 (four) Medical tablet times Branch daily. phenazopyri 2020-10 Yes [id number] 200mg Take 2 [facility] dine 100 mg 2-24 tablets by it y of tablet 00:00: mouth 3 (three) Medical times Branch daily. methocarbam 2020-10 Yes [id number] 500mg Take 1 [facility] oL 2-24 tablet by ity of (ROBAXIN) 00:00: mouth 4 [place] 500 mg 00 (four) Medical tablet times Branch daily. phenazopyri 2020-10 Yes [id number] 200mg Take 2 [facility] dine 100 mg 2-24 tablets by it y of tablet 00:00: mouth 3 (three) Medical times Branch daily. methocarbam 2020-10 Yes [id number] 500mg Take 1 [facility] oL 2-24 tablet by ity of (ROBAXIN) 00:00: mouth 4 [place] 500 mg 00 (four) Medical tablet times Branch daily. phenazopyri 2020-10 Yes [id number] 200mg Take 2 [facility] dine 100 mg 2-24 tablets by it y of tablet 00:00: mouth 3 (three) Medical times Branch daily. methocarbam 2020-10 Yes [id number] 500mg Take 1 [facility] oL 2-24 tablet by ity of (ROBAXIN) 00:00: mouth 4 [place] 500 mg 00 (four) Medical tablet times Branch daily. phenazopyri 2020-10 Yes [id number] 200mg Take 2 [facility] dine 100 mg 2-24 tablets by it y of tablet 00:00: mouth 3 (three) Medical times Branch daily. methocarbam 2020-10 Yes [id number] 500mg Take 1 [facility] oL 2-24 tablet by ity of (ROBAXIN) 00:00: mouth 4 [place] 500 mg 00 (four) Medical tablet times Branch daily. phenazopyri 2020-10 Yes [id number] 200mg Take 2 [facility] dine 100 mg 2-24 tablets by it y of tablet 00:00: mouth 3 00 (three) Medical times Branch daily. methocarbam 2020-10 Yes [id number] 500mg Take 1 [facility] oL 2-24 tablet by ity of (ROBAXIN) 00:00: mouth 4 [place] 500 mg 00 (four) Medical tablet times Branch daily. phenazopyri 2021-1 Yes [id number] 200mg Take 2 [facility] dine 100 mg 2-24 tablets by it y of tablet 00:00: mouth 3 00 (three) Medical times Branch daily. methocarbam 2020-10 Yes [id number] 500mg Take 1 [facility] oL 2-24 tablet by ity of (ROBAXIN) 00:00: mouth 4 [place] 500 mg 00 (four) Medical tablet times Branch daily. phenazopyri 2020-10 Yes [id number] 200mg Take 2 [facility] dine 100 mg 2-24 tablets by it y of tablet 00:00: mouth 3 00 (three) Medical times Branch daily. methocarbam 2020-10 Yes [id number] 500mg Take 1 [facility] oL 2-24 tablet by ity of (ROBAXIN) 00:00: mouth 4 [place] 500 mg 00 (four) Medical tablet times Branch daily. phenazopyri 2020-10 Yes [id number] 200mg Take 2 [facility] dine 100 mg 2-24 tablets by it y of tablet 00:00: mouth 3 00 (three) Medical times Branch daily. methocarbam 2020-10 Yes [id number] 500mg Take 1 [facility] oL 2-24 tablet by ity of (ROBAXIN) 00:00: mouth 4 [place] 500 mg 00 (four) Medical tablet times Branch daily. phenazopyri 2020-10 Yes [id number] 200mg Take 2 [facility] dine 100 mg 2-24 tablets by it y of tablet 00:00: mouth 3 00 (three) Medical times Branch daily. methocarbam 2020-10 Yes [id number] 500mg Take 1 [facility] oL 2-24 tablet by ity of (ROBAXIN) 00:00: mouth 4 [place] 500 mg 00 (four) Medical tablet times Branch daily. phenazopyri 2020-10 Yes [id number] 200mg Take 2 [facility] dine 100 mg 2-24 tablets by it y of tablet 00:00: mouth 3 00 (three) Medical times Branch daily. methocarbam 2020-10 Yes [id number] 500mg Take 1 [facility] oL 2-24 tablet by ity of (ROBAXIN) 00:00: mouth 4 [place] 500 mg 00 (four) Medical tablet times Branch daily. phenazopyri 2020-10 Yes [id number] 200mg Take 2 [facility] dine 100 mg 2-24 tablets by it y of tablet 00:00: mouth 3 00 (three) Medical times Branch daily. methocarbam 2020-10 Yes [id number] 500mg Take 1 [facility] oL 2-24 tablet by ity of (ROBAXIN) 00:00: mouth 4 [place] 500 mg 00 (four) Medical tablet times Branch daily. phenazopyri 2020-10 Yes [id number] 200mg Take 2 [facility] dine 100 mg 2-24 tablets by it y of tablet 00:00: mouth 3 00 (three) Medical times Branch daily. methocarbam 2020-10 Yes [id number] 500mg Take 1 [facility] oL 2-24 tablet by ity of (ROBAXIN) 00:00: mouth 4 [place] 500 mg 00 (four) Medical tablet times Branch daily. phenazopyri 2020-10 Yes [id number] 200mg Take 2 [facility] dine 100 mg 2-24 tablets by it y of tablet 00:00: mouth 3 (three) Medical times Branch daily. methocarbam 2020-10 Yes [id number] 500mg Take 1 [facility] oL 2-24 tablet by ity of (ROBAXIN) 00:00: mouth 4 [place] 500 mg 00 (four) Medical tablet times Branch daily. phenazopyri 2020-10 Yes [id number] 200mg Take 2 [facility] dine 100 mg 2-24 tablets by it y of tablet 00:00: mouth 3 (three) Medical times Branch daily. methocarbam 2020-10 Yes [id number] 500mg Take 1 [facility] oL 2-24 tablet by ity of (ROBAXIN) 00:00: mouth 4 [place] 500 mg 00 (four) Medical tablet times Branch daily. phenazopyri 2020-10 Yes [id number] 200mg Take 2 [facility] dine 100 mg 2-24 tablets by it y of tablet 00:00: mouth 3 (three) Medical times Branch daily. methocarbam 2020-10 Yes [id number] 500mg Take 1 [facility] oL 2-24 tablet by [facility]y of (ROBAXIN) 00:00: mouth 4 [place] 500 mg 00 (four) Medical tablet times Branch daily. phenazopyri 2020-10 Yes [id number] 200mg Take 2 [facility] dine 100 mg 2-24 tablets by it y of tablet 00:00: mouth 3 (three) Medical times Branch daily. carvediloL 2020-10 Yes [id number] 25mg Take 1 [facility] 25 mg 1-16 tablet by [facility] of tablet 00:00: mouth (two) Medical times Branch daily. carvediloL 2020-10 Yes [id number] 25mg Take 1 [facility] 25 mg 1-16 tablet by [facility] of tablet 00:00: mouth (two) Medical times Branch daily. carvediloL 2020-10 Yes [id number] 25mg Take 1 [facility] 25 mg 1-16 tablet by [facility] of tablet 00:00: mouth (two) Medical times Branch daily. carvediloL 2020-10 Yes [id number] 25mg Take 1 [facility] 25 mg 1-16 tablet by it[facility] of tablet 00:00: mouth (two) Medical times Branch daily. carvediloL 2020-10 Yes [id number] 25mg Take 1 [facility] 25 mg 1-16 tablet by [facility] of tablet 00:00: mouth (two) Medical times Branch daily. carvediloL 2020-10 Yes [id number] 25mg Take 1 [facility] 25 mg 1-16 tablet by [facility] of tablet 00:00: mouth (two) Medical times Branch daily. carvediloL 2020-10 Yes [id number] 25mg Take 1 [facility] 25 mg 1-16 tablet by [facility] of tablet 00:00: mouth (two) Medical times Branch daily. carvediloL 2020-10 Yes [id number] 25mg Take 1 [facility] 25 mg 1-16 tablet by [facility] of tablet 00:00: mouth (two) Medical times Branch daily. carvediloL 2020-10 Yes [id number] 25mg Take 1 [facility] 25 mg 1-16 tablet by it[facility] of tablet 00:00: mouth (two) Medical times Branch daily. carvediloL 2020-10 Yes [id number] 25mg Take 1 [facility] 25 mg 1-16 tablet by [facility] of tablet 00:00: mouth (two) Medical times Branch daily. carvediloL 2020-10 Yes [id number] 25mg Take 1 [facility] 25 mg 1-16 tablet by ity of tablet 00:00: mouth (two) Medical times Branch daily. carvediloL 2020-10 Yes [id number] 25mg Take 1 [facility] 25 mg 1-16 tablet by ity of tablet 00:00: mouth (two) Medical times Branch daily. carvediloL 2020-10 Yes [id number] 25mg Take 1 [facility] 25 mg 1-16 tablet by it[facility] of tablet 00:00: mouth 2 (two) Medical times Branch daily. carvediloL 2020-10 Yes [id number] 25mg Take 1 [facility] 25 mg 1-16 tablet by [facility] of tablet 00:00: mouth (two) Medical times Branch daily. carvediloL 2020-10 Yes [id number] 25mg Take 1 [facility] 25 mg 1-16 tablet by [facility] of tablet 00:00: mouth (two) Medical times Branch daily. carvediloL 2020-10 Yes [id number] 25mg Take 1 [facility] 25 mg 1-16 tablet by [facility] of tablet 00:00: mouth (two) Medical times Branch daily. carvediloL 2020-10 Yes [id number] 25mg Take 1 [facility] 25 mg 1-16 tablet by [facility] of tablet 00:00: mouth (two) Medical times Branch daily. carvediloL 2020-10 Yes [id number] 25mg Take 1 [facility] 25 mg 1-16 tablet by [facility] of tablet 00:00: mouth (two) Medical times Branch daily. carvediloL 2020-10 Yes [id number] 25mg Take 1 [facility] 25 mg 1-16 tablet by [facility] of tablet 00:00: mouth (two) Medical times Branch daily. carvediloL 2020-10 Yes [id number] 25mg Take 1 [facility] 25 mg 1-16 tablet by [facility] of tablet 00:00: mouth (two) Medical times Branch daily. carvediloL 2020-10 Yes [id number] 25mg Take 1 [facility] 25 mg 1-16 tablet by [facility] of tablet 00:00: mouth 2 (two) Medical times Branch daily. clobetasoL 2020-10 Yes [id number] Apply to [facility] 0.05 % 0-05 area(s) 2 [facility] of ointment 00:00: (two) times Medical daily. Branch clobetasoL 2021-1 Yes [id number] Apply to [facility] 0.05 % 0-05 area(s) 2 ity of ointment 00:00: (two) [place] 00 times Medical daily. Branch clobetasoL 1-1 Yes [id number] Apply to [facility] 0.05 % 0-05 area(s) 2 ity of ointment 00:00: (two) [place] 00 times Medical daily. Branch clobetasoL 1-1 Yes [id number] Apply to [facility] 0.05 % 0-05 area(s) 2 ity of ointment 00:00: (two) [place] 00 times Medical daily. Branch clobetasoL 1-1 Yes [id number] Apply to [facility] 0.05 % 0-05 area(s) 2 ity of ointment 00:00: (two) [place] 00 times Medical daily. Branch clobetasoL 1-1 Yes [id number] Apply to [facility] 0.05 % 0-05 area(s) 2 ity of ointment 00:00: (two) [place] 00 times Medical daily. Branch clobetasoL 1-1 Yes [id number] Apply to [facility] 0.05 % 0-05 area(s) 2 ity of ointment 00:00: (two) [place] 00 times Medical daily. Branch clobetasoL 1-1 Yes [id number] Apply to [facility] 0.05 % 0-05 area(s) 2 ity of ointment 00:00: (two) [place] 00 times Medical daily. Branch clobetasoL 1-1 Yes [id number] Apply to [facility] 0.05 % 0-05 area(s) 2 ity of ointment 00:00: (two) [place] 00 times Medical daily. Branch clobetasoL 1-1 Yes [id number] Apply to [facility] 0.05 % 0-05 area(s) 2 ity of ointment 00:00: (two) [place] 00 times Medical daily. Branch clobetasoL 1-1 Yes [id number] Apply to [facility] 0.05 % 0-05 area(s) 2 ity of ointment 00:00: (two) [place] 00 times Medical daily. Branch clobetasoL 1-1 Yes [id number] Apply to [facility] 0.05 % 0-05 area(s) 2 ity of ointment 00:00: (two) [place] 00 times Medical daily. Branch clobetasoL 1-1 Yes [id number] Apply to [facility] 0.05 % 0-05 area(s) 2 ity of ointment 00:00: (two) [place] 00 times Medical daily. Branch clobetasoL 1-1 Yes [id number] Apply to [facility] 0.05 % 0-05 area(s) 2 ity of ointment 00:00: (two) [place] 00 times Medical daily. Branch clobetasoL 2020-1 Yes [id number] Apply to [facility] 0.05 % 0-05 area(s) 2 ity of ointment 00:00: (two) [place] 00 times Medical daily. Branch clobetasoL 2020-1 Yes [id number] Apply to [facility] 0.05 % 0-05 area(s) 2 ity of ointment 00:00: (two) [place] 00 times Medical daily. Branch clobetasoL 2020-1 Yes [id number] Apply to [facility] 0.05 % 0-05 area(s) 2 ity of ointment 00:00: (two) [place] 00 times Medical daily. Branch clobetasoL 2020-1 Yes [id number] Apply to [facility] 0.05 % 0-05 area(s) 2 ity of ointment 00:00: (two) [place] 00 times Medical daily. Branch clobetasoL 2020-1 Yes [id number] Apply to [facility] 0.05 % 0-05 area(s) 2 ity of ointment 00:00: (two) [place] 00 times Medical daily. Branch clobetasoL 2020-1 Yes [id number] Apply to [facility] 0.05 % 0-05 area(s) 2 ity of ointment 00:00: (two) [place] 00 times Medical daily. Branch clobetasoL 1-1 Yes [id number] Apply to [facility] 0.05 % 0-05 area(s) 2 ity of ointment 00:00: (two) [place] 00 times Medical daily. Branch OMEPRAZOLE 1-0 Yes [id number] TAKE ONE [facility] 40 mg 9-30 CAPSULE BY ity of capsule 00:00: MOUTH [place] 00 DAILY Medical Branch OMEPRAZOLE 2021-0 Yes [id number] TAKE ONE [facility] 40 mg 9-30 CAPSULE BY ity of capsule 00:00: MOUTH [place] 00 DAILY Medical Branch OMEPRAZOLE 2021-0 Yes [id number] TAKE ONE [facility] 40 mg 9-30 CAPSULE BY ity of capsule 00:00: MOUTH [place] DAILY Medical Branch OMEPRAZOLE 2021-0 Yes [id number] TAKE ONE [facility] 40 mg 9-30 CAPSULE BY ity of capsule 00:00: MOUTH [place] DAILY Medical Branch OMEPRAZOLE 2021-0 Yes [id number] TAKE ONE [facility] 40 mg 9-30 CAPSULE BY ity of capsule 00:00: MOUTH [place] DAILY Medical Branch OMEPRAZOLE 2021-0 Yes [id number] TAKE ONE [facility] 40 mg 9-30 CAPSULE BY ity of capsule 00:00: MOUTH [place] DAILY Medical Branch OMEPRAZOLE 2021-0 Yes [id number] TAKE ONE [facility] 40 mg 9-30 CAPSULE BY ity of capsule 00:00: MOUTH [place] DAILY Medical Branch OMEPRAZOLE 2021-0 Yes [id number] TAKE ONE [facility] 40 mg 9-30 CAPSULE BY ity of capsule 00:00: MOUTH [place] DAILY Medical Branch OMEPRAZOLE 2021-0 Yes [id number] TAKE ONE [facility] 40 mg 9-30 CAPSULE BY ity of capsule 00:00: MOUTH [place] DAILY Medical Branch OMEPRAZOLE 2021-0 Yes [id number] TAKE ONE [facility] 40 mg 9-30 CAPSULE BY ity of capsule 00:00: MOUTH [place] DAILY Medical Branch OMEPRAZOLE 2021-0 Yes [id number] TAKE ONE [facility] 40 mg 9-30 CAPSULE BY ity of capsule 00:00: MOUTH [place] DAILY Medical Branch OMEPRAZOLE 2021-0 Yes [id number] TAKE ONE [facility] 40 mg 9-30 CAPSULE BY ity of capsule 00:00: MOUTH [place] DAILY Medical Branch OMEPRAZOLE 2021-0 Yes [id number] TAKE ONE [facility] 40 mg 9-30 CAPSULE BY ity of capsule 00:00: MOUTH [place] DAILY Medical Branch OMEPRAZOLE 2021-0 Yes [id number] TAKE ONE [facility] 40 mg 9-30 CAPSULE BY ity of capsule 00:00: MOUTH [place] DAILY Medical Branch OMEPRAZOLE 2021-0 Yes [id number] TAKE ONE [facility] 40 mg 9-30 CAPSULE BY ity of capsule 00:00: MOUTH [place] DAILY Medical Branch OMEPRAZOLE 2021-0 Yes [id number] TAKE ONE [facility] 40 mg 9-30 CAPSULE BY ity of capsule 00:00: MOUTH [place] 00 DAILY Medical Branch OMEPRAZOLE 2020-0 Yes [id number] TAKE ONE [facility] 40 mg 9-30 CAPSULE BY ity of capsule 00:00: MOUTH [place] 00 DAILY Medical Branch OMEPRAZOLE 2020-0 Yes [id number] TAKE ONE [facility] 40 mg 9-30 CAPSULE BY ity of capsule 00:00: MOUTH [place] 00 DAILY Medical Branch OMEPRAZOLE 2021-0 Yes [id number] TAKE ONE [facility] 40 mg 9-30 CAPSULE BY ity of capsule 00:00: MOUTH [place] 00 DAILY Medical Branch OMEPRAZOLE 202-0 Yes [id number] TAKE ONE [facility] 40 mg 9-30 CAPSULE BY ity of capsule 00:00: MOUTH [place] DAILY Medical Branch OMEPRAZOLE 2020-0 Yes [id number] TAKE ONE [facility] 40 mg 9-30 CAPSULE BY ity of capsule 00:00: MOUTH [place] DAILY Medical Branch blood sugar 2020-0 Yes [id number] 1{strip 1 Strip [facility] diagnostic 5-24 } before ity of (BLOOD 00:00: meals and [place] GLUCOSE 00 at Medical TEST) strip bedtime. Bran ch Check glucose once daily before breakfast; Diagnosis code R73.03 blood sugar 0 Yes [id number] 1{strip 1 Strip [facility] diagnostic 5-24 } before ity of (BLOOD 00:00: meals and [place] GLUCOSE 00 at Medical TEST) strip bedtime. Bran ch Check glucose once daily before breakfast; Diagnosis code R73.03 blood sugar 2020-0 Yes [id number] 1{strip 1 Strip [facility] diagnostic 5-24 } before ity of (BLOOD 00:00: meals and [place] GLUCOSE 00 at Medical TEST) strip bedtime. Bran ch Check glucose once daily before breakfast; Diagnosis code R73.03 blood sugar 2020-0 Yes [id number] 1{strip 1 Strip [facility] diagnostic 5-24 } before ity of (BLOOD 00:00: meals and [place] GLUCOSE 00 at Medical TEST) strip bedtime. Bran ch Check glucose once daily before breakfast; Diagnosis code R73.03 blood sugar 2020-0 Yes [id number] 1{strip 1 Strip [facility] diagnostic 5-24 } before ity of (BLOOD 00:00: meals and [place] GLUCOSE 00 at Medical TEST) strip bedtime. Bran ch Check glucose once daily before breakfast; Diagnosis code R73.03 blood sugar 2020-0 Yes [id number] 1{strip 1 Strip [facility] diagnostic 5-24 } before ity of (BLOOD 00:00: meals and [place] GLUCOSE 00 at Medical TEST) strip bedtime. Bran ch Check glucose once daily before breakfast; Diagnosis code R73.03 blood sugar 2020-0 Yes [id number] 1{strip 1 Strip [facility] diagnostic 5-24 } before ity of (BLOOD 00:00: meals and [place] GLUCOSE 00 at Medical TEST) strip bedtime. Bran ch Check glucose once daily before breakfast; Diagnosis code R73.03 blood sugar 2020-0 Yes [id number] 1{strip 1 Strip [facility] diagnostic 5-24 } before ity of (BLOOD 00:00: meals and [place] GLUCOSE 00 at Medical TEST) strip bedtime. Bran ch Check glucose once daily before breakfast; Diagnosis code R73.03 blood sugar 2020-0 Yes [id number] 1{strip 1 Strip [facility] diagnostic 5-24 } before ity of (BLOOD 00:00: meals and [place] GLUCOSE 00 at Medical TEST) strip bedtime. Bran ch Check glucose once daily before breakfast; Diagnosis code R73.03 blood sugar 2020- Yes [id number] 1{strip 1 Strip [facility] diagnostic 5-24 } before ity of (BLOOD 00:00: meals and [place] GLUCOSE 00 at Medical TEST) strip bedtime. Bran ch Check glucose once daily before breakfast; Diagnosis code R73.03 blood sugar 2020-0 Yes [id number] 1{strip 1 Strip [facility] diagnostic 5-24 } before ity of (BLOOD 00:00: meals and [place] GLUCOSE 00 at Medical TEST) strip bedtime. Bran ch Check glucose once daily before breakfast; Diagnosis code R73.03 blood sugar 2020-0 Yes [id number] 1{strip 1 Strip [facility] diagnostic 5-24 } before ity of (BLOOD 00:00: meals and [place] GLUCOSE 00 at Medical TEST) strip bedtime. Bran ch Check glucose once daily before breakfast; Diagnosis code R73.03 blood sugar 2020-0 Yes [id number] 1{strip 1 Strip [facility] diagnostic 5-24 } before ity of (BLOOD 00:00: meals and [place] GLUCOSE 00 at Medical TEST) strip bedtime. Bran ch Check glucose once daily before breakfast; Diagnosis code R73.03 blood sugar 2020-0 Yes [id number] 1{strip 1 Strip [facility] diagnostic 5-24 } before ity of (BLOOD 00:00: meals and [place] GLUCOSE 00 at Medical TEST) strip bedtime. Bran ch Check glucose once daily before breakfast; Diagnosis code R73.03 blood sugar 2020-0 Yes [id number] 1{strip 1 Strip [facility] diagnostic 5-24 } before ity of (BLOOD 00:00: meals and [place] GLUCOSE 00 at Medical TEST) strip bedtime. Bran ch Check glucose once daily before breakfast; Diagnosis code R73.03 blood sugar 2020-0 Yes [id number] 1{strip 1 Strip [facility] diagnostic 5-24 } before ity of (BLOOD 00:00: meals and [place] GLUCOSE 00 at Medical TEST) strip bedtime. Bran ch Check glucose once daily before breakfast; Diagnosis code R73.03 blood sugar 2020-0 Yes [id number] 1{strip 1 Strip [facility] diagnostic 5-24 } before ity of (BLOOD 00:00: meals and [place] GLUCOSE 00 at Medical TEST) strip bedtime. Bran ch Check glucose once daily before breakfast; Diagnosis code R73.03 blood sugar 2020-0 Yes [id number] 1{strip 1 Strip [facility] diagnostic 5-24 } before ity of (BLOOD 00:00: meals and [place] GLUCOSE 00 at Medical TEST) strip bedtime. Bran ch Check glucose once daily before breakfast; Diagnosis code R73.03 blood sugar 2020-0 Yes [id number] 1{strip 1 Strip [facility] diagnostic 5-24 } before ity of (BLOOD 00:00: meals and [place] GLUCOSE 00 at Medical TEST) strip bedtime. Bran ch Check glucose once daily before breakfast; Diagnosis code R73.03 blood sugar 2020-0 Yes [id number] 1{strip 1 Strip [facility] diagnostic 5-24 } before ity of (BLOOD 00:00: meals and [place] GLUCOSE 00 at Medical TEST) strip bedtime. Bran ch Check glucose once daily before breakfast; Diagnosis code R73.03 blood sugar 2020-0 Yes [id number] 1{strip 1 Strip [facility] diagnostic 5-24 } before ity of (BLOOD 00:00: meals and [place] GLUCOSE 00 at Medical TEST) strip bedtime. Bran ch Check glucose once daily before breakfast; Diagnosis code R73.03 Blood-Gluco 2020-0 Yes [id number] Check U nivers se Meter 4-20 glucose ity of Kit 00:00: once daily [place] 00 before Medical breakfast; Branch Diagnosis code R73.03 Blood-Gluco 2020-0 Yes [id number] Check U nivers se Meter 4-20 glucose ity of Kit 00:00: once daily [place] 00 before Medical breakfast; Branch Diagnosis code R73.03 Blood-Gluco 2021-0 Yes [id number] Check U nivers se Meter 4-20 glucose ity of Kit 00:00: once daily [place] 00 before Medical breakfast; Branch Diagnosis code R73.03 Blood-Gluco 2021-0 Yes [id number] Check U nivers se Meter 4-20 glucose ity of Kit 00:00: once daily [place] 00 before Medical breakfast; Branch Diagnosis code R73.03 Blood-Gluco 2021-0 Yes [id number] Check U nivers se Meter 4-20 glucose ity of Kit 00:00: once daily [place] 00 before Medical breakfast; Branch Diagnosis code R73.03 Blood-Gluco 2021-0 Yes [id number] Check U nivers se Meter 4-20 glucose ity of Kit 00:00: once daily [place] 00 before Medical breakfast; Branch Diagnosis code R73.03 Blood-Gluco 2021-0 Yes [id number] Check U nivers se Meter 4-20 glucose ity of Kit 00:00: once daily [place] 00 before Medical breakfast; Branch Diagnosis code R73.03 Blood-Gluco 2021-0 Yes [id number] Check U nivers se Meter 4-20 glucose ity of Kit 00:00: once daily [place] 00 before Medical breakfast; Branch Diagnosis code R73.03 Blood-Gluco 2021-0 Yes [id number] Check U nivers se Meter 4-20 glucose ity of Kit 00:00: once daily [place] 00 before Medical breakfast; Branch Diagnosis code R73.03 Blood-Gluco 2021-0 Yes [id number] Check U nivers se Meter 4-20 glucose ity of Kit 00:00: once daily [place] 00 before Medical breakfast; Branch Diagnosis code R73.03 Blood-Gluco 2021-0 Yes [id number] Check U nivers se Meter 4-20 glucose ity of Kit 00:00: once daily [place] 00 before Medical breakfast; Branch Diagnosis code R73.03 Blood-Gluco 2021-0 Yes [id number] Check U nivers se Meter 4-20 glucose ity of Kit 00:00: once daily [place] 00 before Medical breakfast; Branch Diagnosis code R73.03 Blood-Gluco 2021-0 Yes [id number] Check U nivers se Meter 4-20 glucose ity of Kit 00:00: once daily [place] 00 before Medical breakfast; Branch Diagnosis code R73.03 Blood-Gluco 2021-0 Yes [id number] Check U nivers se Meter 4-20 glucose ity of Kit 00:00: once daily [place] 00 before Medical breakfast; Branch Diagnosis code R73.03 Blood-Gluco 2021-0 Yes [id number] Check U nivers se Meter 4-20 glucose ity of Kit 00:00: once daily [place] 00 before Medical breakfast; Branch Diagnosis code R73.03 Blood-Gluco 2021-0 Yes [id number] Check U nivers se Meter 4-20 glucose ity of Kit 00:00: once daily [place] 00 before Medical breakfast; Branch Diagnosis code R73.03 Blood-Gluco 2021-0 Yes [id number] Check U nivers se Meter 4-20 glucose ity of Kit 00:00: once daily [place] 00 before Medical breakfast; Branch Diagnosis code R73.03 Blood-Gluco 2021-0 Yes [id number] Check [facility] nivers se Meter 4-20 glucose ity of Kit 00:00: once daily [place] 00 before Medical breakfast; Branch Diagnosis code R73.03 Blood-Gluco 2021-0 Yes [id number] Check U nivers se Meter 4-20 glucose ity of Kit 00:00: once daily [place] 00 before Medical breakfast; Branch Diagnosis code R73.03 Blood-Gluco 2021-0 Yes [id number] Check U nivers se Meter 4-20 glucose ity of Kit 00:00: once daily [place] 00 before Medical breakfast; Branch Diagnosis code R73.03 Blood-Gluco 2021-0 Yes [id number] Check U nivers se Meter 4-20 glucose ity of Kit 00:00: once daily [place] 00 before Medical breakfast; Branch Diagnosis code R73.03 Lancets 2020-1 Yes [id number] Check Univ ers Misc 1-18 glucose ity of 00:00: once daily [place] 00 before Medical breakfast; Branch Diagnosis code R73.03 Lancets 2020-1 Yes [id number] Check Univ ers Misc 1-18 glucose ity of 00:00: once daily [place] 00 before Medical breakfast; Branch Diagnosis code R73.03 Lancets 2020-1 Yes [id number] Check Univ ers Misc 1-18 glucose ity of 00:00: once daily [place] 00 before Medical breakfast; Branch Diagnosis code R73.03 Lancets 2020-1 Yes [id number] Check Univ ers Misc 1-18 glucose ity of 00:00: once daily [place] 00 before Medical breakfast; Branch Diagnosis code R73.03 Lancets 2019- Yes [id number] Check Univ ers Misc 1-18 glucose ity of 00:00: once daily [place] 00 before Medical breakfast; Branch Diagnosis code R73.03 Lancets 2019- Yes [id number] Check Univ ers Misc 1-18 glucose ity of 00:00: once daily [place] 00 before Medical breakfast; Branch Diagnosis code R73.03 Lancets 2019- Yes [id number] Check Univ ers Misc 1-18 glucose ity of 00:00: once daily [place] 00 before Medical breakfast; Branch Diagnosis code R73.03 Lancets 2019-10 Yes [id number] Check Univ ers Misc 1-18 glucose ity of 00:00: once daily [place] 00 before Medical breakfast; Branch Diagnosis code R73.03 Lancets 2019-10 Yes [id number] Check Univ ers Misc 1-18 glucose ity of 00:00: once daily [place] 00 before Medical breakfast; Branch Diagnosis code R73.03 Lancets 2019-10 Yes [id number] Check Univ ers Misc 1-18 glucose ity of 00:00: once daily [place] 00 before Medical breakfast; Branch Diagnosis code R73.03 Lancets 2019-10 Yes [id number] Check Univ ers Misc 1-18 glucose ity of 00:00: once daily [place] 00 before Medical breakfast; Branch Diagnosis code R73.03 Lancets 2019- Yes [id number] Check Univ ers Misc 1-18 glucose ity of 00:00: once daily [place] 00 before Medical breakfast; Branch Diagnosis code R73.03 Lancets 2019- Yes [id number] Check Univ ers Misc 1-18 glucose ity of 00:00: once daily [place] 00 before Medical breakfast; Branch Diagnosis code R73.03 Lancets 2019- Yes [id number] Check Univ ers Misc 1-18 glucose ity of 00:00: once daily [place] 00 before Medical breakfast; Branch Diagnosis code R73.03 Lancets 2019- Yes [id number] Check Univ ers Misc 1-18 glucose ity of 00:00: once daily [place] 00 before Medical breakfast; Branch Diagnosis code R73.03 Lancets 2019-10 Yes [id number] Check Univ ers Misc 1-18 glucose ity of 00:00: once daily [place] 00 before Medical breakfast; Branch Diagnosis code R73.03 Lancets 2019-10 Yes [id number] Check Univ ers Misc 1-18 glucose ity of 00:00: once daily [place] 00 before Medical breakfast; Branch Diagnosis code R73.03 Lancets 2019-10 Yes [id number] Check Univ ers Misc 1-18 glucose ity of 00:00: once daily [place] 00 before Medical breakfast; Branch Diagnosis code R73.03 Lancets 2019-10 Yes [id number] Check Univ ers Misc 1-18 glucose ity of 00:00: once daily [place] 00 before Medical breakfast; Branch Diagnosis code R73.03 Lancets 2019-10 Yes [id number] Check Univ ers Misc 1-18 glucose ity of 00:00: once daily [place] 00 before Medical breakfast; Branch Diagnosis code R73.03 Lancets 2019-10 Yes [id number] Check Univ ers Misc 1-18 glucose ity of 00:00: once daily [place] 00 before Medical breakfast; Branch Diagnosis code R73.03 QUEtiapine 2019-0 Yes [facility] 300 mg 1-10 ity of tablet 00:00: [address] QUEtiapine 2019-0 Yes [facility] 300 mg 1-10 ity of tablet 00:00: [address] QUEtiapine 2019-0 Yes [facility] 300 mg 1-10 ity of tablet 00:00: [address] QUEtiapine 2019-0 Yes [facility] 300 mg 1-10 ity of tablet 00:00: [address] QUEtiapine 2019-0 Yes [facility] 300 mg 1-10 ity of tablet 00:00: [address] QUEtiapine 2019-0 Yes [facility] 300 mg 1-10 ity of tablet 00:00: [address] QUEtiapine 2019-0 Yes [facility] 300 mg 1-10 ity of tablet 00:00: [address] QUEtiapine 2019-0 Yes [facility] 300 mg 1-10 ity of tablet 00:00: [address] QUEtiapine 2019-0 Yes [facility] 300 mg 1-10 ity of tablet 00:00: [address] QUEtiapine 2019-0 Yes [facility] 300 mg 1-10 ity of tablet 00:00: [address] QUEtiapine 2019-0 Yes [facility] 300 mg 1-10 ity of tablet 00:00: [address] QUEtiapine 2019-0 Yes [facility] 300 mg 1-10 ity of tablet 00:00: [address] QUEtiapine 2019-0 Yes [facility] 300 mg 1-10 ity of tablet 00:00: [address] QUEtiapine 2019-0 Yes [facility] 300 mg 1-10 ity of tablet 00:00: [address] QUEtiapine 2019-0 Yes [facility] 300 mg 1-10 ity of tablet 00:00: [address] QUEtiapine 2018-0 Yes [facility] 300 mg 1-10 ity of tablet 00:00: [address] QUEtiapine 2018-0 Yes [facility] 300 mg 1-10 ity of tablet 00:00: [address] QUEtiapine 2019-0 Yes [facility] 300 mg 1-10 ity of tablet 00:00: [address] QUEtiapine 2018-0 Yes [facility] 300 mg 1-10 ity of tablet 00:00: [address] QUEtiapine 2019-0 Yes [facility] 300 mg 1-10 ity of tablet 00:00: [address] QUEtiapine 2019-0 Yes [facility] 300 mg 1-10 ity of tablet 00:00: [address] TIZANIDINE Yes Take by [facility] [...] 04:13: daily. Medical capsule 45 Center clonazePAM Yes 1mg Take 1 mg [facility] [...] 45 (four) Center tablet times daily. carvedilol 2013-0 Yes 12.5mg Take 12.[address] [facility] (COREG) [...] 04:13: daily. Medical capsule 45 Center TIZANIDINE 0 Yes Take by [facility] 6-12 [facility] (ZANAFLEX 04:13: Medical ORAL) 45 Center methocarbam 2012-0 Yes 750mg Q.25D Take [address] [facility] ol 6-12 mg by [facility] (ROBAXIN) 04:13: mouth 4 Medic al 750 MG 45 (four) Center tablet times daily. carvedilol 2013-0 Yes 12.5mg Take 12.[address] [facility] (COREG) 6-12 mg by [facility] 12[facility] MG 04:13: mouth 2 Medical tablet 45 (two) Center times daily with breakfast and dinner. clonazePAM 2013-0 Yes 1mg Take [address] [facility] [address] [facility] (KLONOPIN) 6-12 by mouth 2 Therese es 1 MG tablet 04:13: (two) Medic al 45 times Center daily as needed. DULoxetine 2013-0 Yes 30mg QD Take 30 mg C [...] Center times daily with breakfast and dinner. aspirin 81 aspirin 81 No 1 Q1D aspirin 81 [place] mg mg mg [facility] tablet,aleta tablet,aleta tablet,del [facility] yed release yed release ayed Take 1 Take 1 release tablet tablet Take 1 every day every day tablet by oral by oral every day route. route. by oral route. carvedilol carvedilol No carvedilol [place] 12.5 mg 12.5 mg 12.5 mg [facility] tablet tablet tablet [facility] clobetasol clobetasol No clobetasol [place] 0.05 % 0.05 % 0.05 % [facility] topical topical topical [facility]rolog y ointment ointment ointment APPLY THIN APPLY THIN APPLY THIN LAYER TO LAYER TO LAYER TO RASH ON RASH ON RASH ON TRUNK AND TRUNK AND TRUNK AND EXTREMITIES EXTREMITIES EXTREMITIE FOR 2 FOR 2 S FOR 2 WEEKS/MONTH WEEKS/MONTH WEEKS/ROBERT H clonazepam clonazepam No clonazepam [place] 0.125 mg 0.125 mg 0.125 mg Met ro disintegrat disintegrat disintegra [facility] ing tablet ing tablet ting DISSOLVE 1 DISSOLVE 1 tablet TABLET ON TABLET ON DISSOLVE 1 THE TONGUE THE TONGUE TABLET ON TWICE DAILY TWICE DAILY THE TONGUE NEEDED NEEDED TWICE FOR HIGH FOR HIGH DAILY ANXIETY ANXIETY NEEDED FOR HIGH ANXIETY hydrocortis hydrocortis No hydrocorti Nubieber one 10 mg one 10 mg sone 10 mg Metro tablet TAKE tablet TAKE tablet Urology 2 TABLETS 2 TABLETS TAKE 2 BY MOUTH BY MOUTH TABLETS BY EVERY EVERY MOUTH MORNING AND MORNING AND EVERY 1 TABLET 1 TABLET MORNING EVERY NIGHT EVERY NIGHT AND 1 TABLET EVERY NIGHT ibuprofen ibuprofen No ibuprofen [place] 600 mg 600 mg 600 mg Metro tablet tablet tablet Urology ibuprofen ibuprofen No ibuprofen [place] 800 mg 800 mg 800 mg Metro tablet tablet tablet Urology Lantus Lantus No Lantus [place] Solostar Solostar Solostar Met ro U-100 U-100 U-100 Urology Insulin 100 Insulin 100 Insulin unit/mL (3 unit/mL (3 100 mL) mL) unit/mL (3 subcutaneou subcutaneou mL) s pen s pen subcutaneo INJECT 35 INJECT 35 us pen UNITS UNITS INJECT 35 SUBCUTANEOU SUBCUTANEOU UNITS S EVERY DAY S EVERY DAY SUBCUTANEO US EVERY DAY levothyroxi levothyroxi No levothyrox [place]ber ne 137 mcg ne 137 mcg ine 137 Metro tablet tablet mcg tablet Urolo gy metformin metformin No metformin [place] 500 mg 500 mg 500 mg Metro tablet tablet tablet Urology mupirocin 2 mupirocin 2 No mupirocin Vogel % topical % topical 2 % Metro ointment ointment topical Urol ogy APPLY THIN APPLY THIN ointment LAYER TO LAYER TO APPLY THIN OPEN SORES OPEN SORES LAYER TO ON TRUNK ON TRUNK OPEN SORES AND AND ON TRUNK EXTREMITIES EXTREMITIES AND TWICE TWICE EXTREMITIE DAILY. DAILY. S TWICE DAILY. Novolog Novolog No Novolog [place] FlexPen FlexPen FlexPen Metro U-100 U-100 U-100 Urology Insulin Insulin Insulin aspart 100 aspart 100 aspart 100 unit/mL (3 unit/mL (3 unit/mL (3 mL) mL) mL) subcutaneou subcutaneou subcutaneo s s us quetiapine quetiapine No quetiapine [place] 100 mg 100 mg 100 mg Metro tablet TAKE tablet TAKE tablet Urology 1 TABLET BY 1 TABLET BY TAKE 1 MOUTH EVERY MOUTH EVERY TABLET BY NIGHT AT NIGHT AT MOUTH BEDTIME BEDTIME EVERY NIGHT AT BEDTIME tramadol 50 tramadol 50 No tramadol [place] mg tablet mg tablet 50 mg Metr o TAKE 1 TAKE 1 tablet Urology TABLET BY TABLET BY TAKE 1 MOUTH TWICE MOUTH TWICE TABLET BY DAILY DAILY MOUTH TWICE DAILY trazodone trazodone No trazodone [place] 50 mg 50 mg 50 mg Metro tablet tablet tablet Urology Vital Signs Vital Name Observation Time Observation Value Comments Source Systolic blood 2022-11-19 19:57:00 128 mm[Hg] Reema [place] - pressure External Diastolic blood 2022-11-19 19:57:00 76 mm[Hg] Galina Cassidyce - pressure External Heart rate 2022-11-19 19:57:00 86 /min Reema Coleman eybold - External Body temperature 2022-11-19 19:57:00 36.17 Lynette Kaykay ey Seybold - External Respiratory rate 2022-11-19 19:57:00 20 /min Kaykay saini Seybold - External Body height 2022-11-19 19:57:00 162.6 cm Reema sainibold - External Body weight 2022-11-19 19:57:00 99.973 kg Reema Coleman eybold - External BMI 2022-11-19 19:57:00 37.83 kg/m2 Reema Coleman eybold - External Oxygen saturation in 2022-11-19 19:57:00 98 /min Reema Yong - Arterial blood by External Pulse oximetry BP Diastolic 2022-11-14 00:00:00 82 mm[Hg] [facility] U[facility] Height 2022-11-14 00:00:00 64 [in_i] [facility] BMI (Body Mass 2022-11-14 00:00:00 36 [facility] BP Systolic 2022-11-14 00:00:00 132 mm[Hg] [facility] Body Weight 2022-11-14 00:00:00 210 [lb_av] [facility] Heart rate 2022-11-04 20:22:00 97 /min Reema sainibold - External Respiratory rate 2022-11-04 20:22:00 14 /min Kaykay saini Seybold - External Body height 2022-11-04 20:22:00 162.6 cm Reema sainibold - External Body weight 2022-11-04 20:22:00 99.791 kg Reema sainibold - External BMI 2022-11-04 20:22:00 37.76 kg/m2 Reema sainibold - External Oxygen saturation in 2022-11-04 20:22:00 95 /min Reema [place] - Arterial blood by External Pulse oximetry Systolic blood 2022-10-15 21:26:00 133 mm[Hg] Carrie aviles of [facility] Diastolic blood 2022-10-15 21:26:00 73 mm[Hg] Unive rsity of pressure [facility] Heart rate 2022-10-15 21:26:00 97 /min [facility] [place] [facility] Body temperature 2022-10-15 21:26:00 37.28 Lynette [facility] [place] [facility] Respiratory rate 2022-10-15 21:26:00 17 /min [facility] [place] [facility] Body weight 2022-10-15 21:26:00 100.472 kg [facility] [place] [facility] BMI 2022-10-15 21:26:00 38.02 kg/m2 [facility] [place] [facility] Oxygen saturation in 2022-10-15 21:26:00 96 /min University of Arterial blood by [facility] Pulse oximetry Branch Systolic blood 2022-10-09 19:34:00 126 mm[Hg] Univer sity of pressure [facility] Diastolic blood 2022-10-09 19:34:00 84 mm[Hg] Unive rsity of pressure [facility] Heart rate 2022-10-09 19:34:00 95 /min [facility] [place] [facility] Body temperature 2022-10-09 19:34:00 37 Lynette [facility] [place] [facility] Respiratory rate 2022-10-09 19:34:00 16 /min [facility] [place] [facility] Body height 2022-10-09 19:34:00 162.6 cm [facility] [place] [facility] Body weight 2022-10-09 19:34:00 99.139 kg [facility] [place] [facility] BMI 2022-10-09 19:34:00 37.52 kg/m2 [facility] Oxygen saturation in 2022-10-09 19:34:00 97 /min University of Arterial blood by [facility] Pulse oximetry Branch Systolic blood 2022-09-29 20:01:00 142 mm[Hg] Reema [place] - pressure External Diastolic blood 2022-09-29 20:01:00 75 mm[Hg] Galina [place] - pressure External Heart rate 2022-09-29 20:01:00 71 /min Reema sainiboeaston - External Body temperature 2022-09-29 20:01:00 36.56 Lynette Kaykay [place] - External Respiratory rate 2022-09-29 20:01:00 14 /min Kaykay ey Seybold - External Body height 2022-09-29 20:01:00 162.6 cm Reema Coleman eybold - External Body weight 2022-09-29 20:01:00 102.967 kg Reema Coleman eybold - External BMI 2022-09-29 20:01:00 38.96 kg/m2 Reema Coleman eybold - External Oxygen saturation in 2022-09-29 20:01:00 99 /min Reema Seabhijitold - Arterial blood by External Pulse oximetry Systolic blood 2022-09-22 20:30:00 118 mm[Hg] Reema Seybold - pressure External Diastolic blood 2022-09-22 20:30:00 71 mm[Hg] Zakse y Seybold - pressure External Heart rate 2022-09-22 20:30:00 86 /min Reema Coleman eybold - External Body temperature 2022-09-22 20:30:00 36.39 Lynette Kaykay ey Seybold - External Respiratory rate 2022-09-22 20:30:00 18 /min Kaykay saini Seybold - External Body height 2022-09-22 20:30:00 162.6 cm Reema Coleman eybold - External Body weight 2022-09-22 20:30:00 101.152 kg Reema Coleman eybold - External BMI 2022-09-22 20:30:00 38.28 kg/m2 Reema Coelman eybold - External Systolic blood 2022-08-29 20:07:00 96 mm[Hg] Reema Seybold - pressure External Diastolic blood 2022-08-29 20:07:00 54 mm[Hg] Zakse y Seybold - pressure External Heart rate 2022-08-29 20:07:00 86 /min Reema S eybold - External Body temperature 2022-08-29 20:07:00 36.39 Lynette Kaykay ey Seybold - External Respiratory rate 2022-08-29 20:07:00 14 /min Kaykay saini Seybold - External Body height 2022-08-29 20:07:00 162.6 cm Reema S eybold - External Body weight 2022-08-29 20:07:00 110.678 kg Reema S eybold - External BMI 2022-08-29 20:07:00 41.88 kg/m2 Reema S eybold - External Systolic blood 2022-08-26 17:01:00 118 mm[Hg] Univer sity of pressure [facility] Diastolic blood 2022-08-26 17:01:00 84 mm[Hg] Unive rsity of [facility] Heart rate 2022-08-26 17:01:00 74 /min [facility] Body weight 2022-08-26 17:01:00 95.709 kg [facility] BMI 2022-08-26 17:01:00 36.22 kg/m2 [facility] Systolic blood 2022-07-02 14:44:00 125 mm[Hg] Remea Seybold - pressure External Diastolic blood 2022-07-02 14:44:00 79 mm[Hg] Zakse y Seybold - pressure External Heart rate 2022-07-02 14:44:00 79 /min Reema S eybold - External Body temperature 2022-07-02 14:44:00 36.61 Lynette Kaykay ey Seybold - External Respiratory rate 2022-07-02 14:44:00 18 /min Kaykay ey Seybold - External Body height 2022-07-02 14:44:00 162.6 cm Reema Coleman eybold - External Body weight 2022-07-02 14:44:00 102.694 kg Reema Coleman eybold - External BMI 2022-07-02 14:44:00 38.86 [...] 38.11 kg/m2 Reema S eybold Systolic blood 2022-01-28 18:35:00 127 mm[Hg] Reema Seybold pressure Diastolic blood 2022-01-28 18:35:00 76 mm[Hg] Kelse y Seybold pressure Heart rate 2022-01-28 18:35:00 72 /min Reema sainiboeaston Body temperature 2022-01-28 18:35:00 36.61 Lynette Kaykay [place] Respiratory rate 2022-01-28 18:35:00 14 /min Kaykay [place] Body height 2022-01-28 18:35:00 162.6 cm Reema sainiboeaston Body weight 2022-01-28 18:35:00 101.152 kg Reema sainiboeaston BMI 2022-01-28 18:35:00 38.28 kg/m2 Reema Coleman boeaston Systolic blood 2022-10-28 00:44:00 144 mm[Hg] [facility] pressure Diastolic blood 2022-10-28 00:44:00 61 mm[Hg] [facility] pressure Heart rate 2022-10-28 00:44:00 86 /min [facility] Respiratory rate 2022-10-28 00:44:00 18 /min [facility] Oxygen saturation in 2022-10-28 00:44:00 98 /min [facility] Arterial blood by Pulse oximetry Body temperature 2022-10-27 21:25:[address] [facility] Body height 2022-10-27 21:22:00 160 cm [facility] Body weight 2022-10-27 21:22:00 90.719 kg [facility] BMI 2022-10-27 21:22:00 35.43 kg/m2 [facility] Procedures Procedure Date / Time Performing Clinician Source Performed TROPONIN, I-STAT 2022-10-28 00:17:00 Khai Franks H ospijohnny Fields LACTIC ACID, I-STAT 2022-10-28 00:17:00 Alonzo [facility] Donnie CT ABDOMEN PELVIS W 2022-10-27 23:32:00 Alonzo [facility] CONTRAST Donnie COMPREHENSIVE METABOLIC 2022-10-27 22:32:[address] [facility] PANEL Donnie ESTIMATED GFR 2022-10-27 22:32:00 Khai Franks [facility] spital Donnie XR CHEST 2 VW 2022-10-27 22:03:00 Khai Franks spijohnny Fields XR SHOULDER 2+ VW RIGHT 2022-10-27 [facility] 2022-10-27 21:55:00 Alonzo [facility] spital Donnie CBC WITH PLATELET AND 2022-10-27 21:54:00 [facility] DIFFERENTIAL Donnie COMPREHENSIVE METABOLIC 2022-10-27 21:54:00 [facility] PANEL Donnie TROPONIN, I-STAT 2022-10-27 21:54:00 [facility] ospital Donnie URINALYSIS 2022-10-27 21:54:00 [facility] HCG QUALITATIVE, URINE 2022-10-27 21:54:00 [facility] SCREEN Donnie B NATRIURETIC PEP, I-STAT 2022-10-27 21:54:[facility]IM[facility] GFR 2022-10-27 21:54:00 [facility] spital Donnie VENOUS BLOOD GAS 2022-10-27 21:54:00 [facility] LACTIC ACID, I-STAT 2022-10-27 21:54:00 [facility] MANUAL DIFFERENTIAL 2022-10-27 21:54:00 [facility] ECG ED PRELIMINARY 2022-10-27 21:39:37 [facility] INTERPRETATION [facility] ECG 12-LEAD 2022-10-27 21:23:19 [facility] spital Donnie POCT SARS-COV-2 ANTIGEN 2022-10-09 19:51:00 Aurora Avendaño [facility] (BINAX NOW) [facility] POCT MOLECULAR FLU 2022-10-09 19:44:00 Unknown, Attending Carrie aviles [facility] REAGENT STRIP/BLOOD 2022-09-22 00:00:00 Outside, Reported Reema Beach - GLUCOSE External POCT URINALYSIS 2022-08-26 00:00:00 Summer Davis [facility] REAGENT STRIP/BLOOD 2022-07-02 14:51:00 Outside, Reported Reema Cassidyold - GLUCOSE External Colonoscopy 2015-10-12 00:00:00 [facility] URO.2007-10-12 00:00:00 [facility] Ureteroscopy-Laser Urology Lithotripsy URO.2004-10-12 00:00:00 [facility] Ureteroscopy-Laser Urology Lithotripsy URO.2002-10-12 00:00:00 [place] Ureteroscopy-Laser Urology Lithotripsy URO.1992-10-12 00:00:00 [place] [facility] Ureteroscopy-Laser Urology Lithotripsy Removal of Calculus of Jaspreet Gottlieb etro Renal Pelvis through Urology Percutaneous Nephrostomy Plan of Care Planned Activity Planned Date Details Comments Source Future Scheduled 2022-11-25 COVID-19 VACCINE (#1) [facility] Test 17:40:42 [code = COVID-19 VACCINE (#1)] Future Scheduled 2022-11-25 Hepatitis C screening [facility] Test 17:40:42 (procedure) [code = 719717560] Future Scheduled 2022-11-25 Screening for [facility] Test 17:40:42 malignant neoplasm of cervix (procedure) [code = 824521758] Future Scheduled 2022-11-25 BREAST CANCER [facility] Test 17:40:42 SCREENING [code = BREAST CANCER SCREENING] Future Scheduled 2022-11-25 COLONOSCOPY SCREENING [facility] Test 17:40:42 [code = COLONOSCOPY SCREENING] Future Scheduled 2022-11-25 SHINGLES VACCINES (1 Met [facility] Test 17:40:42 of 2) [code = SHINGLES VACCINES (1 of 2)] Future Scheduled 2022-11-[address] [facility] Test 17:40:42 [code = INFLUENZA VACCINE] Diagnostic Test 2022-11-14 urinalysis, dipstick [facility] Pending 00:00:00 [code = urinalysis, Urology dipstick] Diagnostic Test 2022-11-14 urinalysis, [facility] Pending 00:00:00 microscopic [code = Urology urinalysis, microscopic] Encounters Start End Encounter Admission Attending Care Care Encounter Source Date/Time Date/Time Type Type Clinicians Facility Department ID 2022-07-01 Outpatient [facility] [id number] [place] 06:14:10 [id number] [facility] 2022-01-10 [id number] [place] 13:15:51 [id number] [facility] 2022-01-08 [facility] [id number] [place] 12:03:37 [id number] [facility] 2021-08-[address] [facility] [id number] Univers 14:12:35 [facility] 2023-01-12 2023-01-12 Outpatient RUSLAN ARUN REEMA MOJICA [id number] Reema 14:15:00 14:15:00 Seybol d 2022-12-29 2022-12-29 Outpatient PREZASREEMA [id number] Reema 14:00:00 14:00:00 JOHNNIE Seybol d 2022-12-17 2022-12-17 Outpatient PREZASREEMA [id number] Reema 13:30:00 13:30:00 JOHNNIE Seybol d 2022-11-26 2022-11-26 Outpatient AHMEDREEMA [id number] Reema 14:00:00 14:00:00 FAYYAZ Seybol d 2022-11-19 2022-11-19 Outpatient PREZASREEMA [id number] Reema 14:00:00 14:00:00 JOHNNIE Seybol d 2022-11-18 2022-11-18 Outpatient PATRICIA YAP [id number] Reema 14:00:00 14:00:00 Seybol d 2022-11-18 2022-11-18 Outpatient PREZASREEMA [id number] Reema 11:00:00 11:00:00 JOHNNIE Seybol d 2022-11-17 2022-11-17 Outpatient PREZASREEMA [id number] Reema 00:00:00 00:00:00 JOHNNIE Seybol d 2022-11-17 2022-11-17 Outpatient PREZASREEMA [id number] Reema 00:00:00 00:00:00 JOHNNIE Seybol d 2022-11-14 2022-11-14 Outpatient Champion_P [facility] [id number] [place] [address] 00:00:00 00:00:00 [id number] [facility] 2022-11-14 2022-11-14 Outpatient Champion_P [facility] [id number] [place] 00:00:00 00:00:00 [id number] [facility] 2022-11-14 2022-11-14 Eulogio Dee U [place] - [id number] [facility] 00:00:00 00:00:00 Jaspreet Henderson MD: [id number] [facility] Urology [facility] [address], [place] [address] , Ph. 2022-11-11 2022-11-11 Outpatient REEMA AZEVEDO [id number] Reema 00:00:00 00:00:00 JOHNNIE Snyderybol magalie 2022-11-11 2022-11-11 Outpatient REEMA MOJICA [id number] Reema 00:00:00 00:00:00 Seybol d 2022-11-11 2022-11-11 Outpatient Champion_P [facility] U [id number] [place] 00:00:00 00:00:00 [id number] [facility] 2022-11-11 2022-11-11 Outpatient Champion_P [facility] [id number] [place] 00:00:00 00:00:00 [id number] [facility] 2022-11-11 2022-11-11 Outpatient Champion_P [facility]U [facility]U [id number] [place] 00:00:00 00:00:00 [id number] [facility] 2022-11-10 2022-11-10 Outpatient REEMA MOJICA [id number] Reema 00:00:00 00:00:00 Seybol d 2022-11-10 2022-11-10 Outpatient REEMA AZEVEDO [id number] Reema 00:00:00 00:00:00 JOHNNIE Snyderybol magalie 2022-11-06 2022-11-06 Telephone Team, [facility] LINDA 1.2.840.114 [id number] Univers 00:00:00 00:00:00 [facility] 350.1.13.10 [facility] 4.2.7.2.686 [place] [id number] [address] 2022-11-04 2022-11-04 Outpatient LAB90 REEMA REEMA [id number] Reema 15:15:00 15:15:00 Seybol d 2022-11-04 2022-11-04 Outpatient PREREEMA BLANCO REEMA [id number] Reema 14:30:00 14:30:00 JOHNNIE Seybol d 2022-10-31 2022-10-31 Rodrigo Avendaño [facility] [id number] [facility] 00:00:00 00:00:00 [facility] 350.1.13.10 it y of [place] 4.2.7.2.686 Anton as TREE?BLEA [id number] [address] MEDICAL OFFICE BUILDING 2022-10-28 2022-10-28 Outpatient PREZATomi, REEMA REEMA [id number] Reema 00:00:00 00:00:00 JOHNNIE Seybol d 2022-10-27 2022-10-27 Emergency Franks, 1.2.840.1 [id number] Methodi 15:08:00 19:00:[address] [facility] 3.430.2.7 Hospi ta .3.491225 l .8 2022-10-27 2022-10-27 Outpatient LUIS A, NEO MOJICA REEMA [id number] Reema 16:45:00 16:45:00 Seybol d 2022-10-27 2022-10-27 Outpatient PREZAS, REEMA MOJICA [id number] Reema 00:00:00 00:00:00 JOHNNIE Seybol d 2022-10-27 2022-10-27 Outpatient PREZATomi, REEMA MOJICA [id number] Reema 00:00:00 00:00:00 JOHNNIE Seybol d 2022-10-27 2022-10-27 Travel 1.2.840.1 [id number] Methodi 00:00:00 00:00:[address] 3.430.2.7 0.2.7.3.698 Ho spita .[id number] 084.8 l .8 2022-10-27 2022-10-27 Emergency FRANKS, [facility] [id number] [place] [address] 00:00:00 00:00:[address] 2022-10-22 2022-10-22 Outpatient PREZAS, REEMA MOJICA [id number] Reema 00:00:00 00:00:00 JOHNNIE Seybol d 2022-10-20 2022-10-20 Outpatient RAMOS, REEMA MOJICA [id number] Reema 14:15:00 14:15:00 ISIS Seybol d 2022-10-20 2022-10-20 Outpatient RAMOS, REEMA MOJICA [id number] Reema 00:00:00 00:00:00 ISIS Seybol d 2022-10-20 2022-10-20 Outpatient RAMOS, REEMA MOJICA [id number] Reema 00:00:00 00:00:00 ISIS Seybol d 2022-10-18 2022-10-18 Telephone Lex Kline [facility] 1.2.840.114 [id number] Univers 00:00:00 00:00:00 C HEALTH 350.1.13.10 it y of [place] 4.2.7.2.686 Anton as TREE?BLEA [id number] [address] MEDICAL OFFICE BUILDING 2022-10-15 2022-10-15 Outpatient R ELIUD III, [facility] [id number] Univers 15:00:00 15:50:54 LEX keita [facility] 2022-10-15 2022-10-15 Urgent Lex Kline [facility] 1.2.840.114 [id number] Univers 15:00:00 15:50:54 Care Unknown, Attending HEALTH 350.1.13.10 ity of [place] 4.2.7.2.686 Anton as TREE?BLEA [id number] [address] MEDICAL OFFICE BUILDING 2022-10-15 2022-10-15 Telephone King Lex [facility] 1.2.840.114 [id number] Univers 00:00:00 00:00:00 C HEALTH 350.1.13.10 it y of [place] 4.2.7.2.686 [place] as TREE?BLEA [id number] [address] OFFICE [facility] 2022-10-15 2022-10-15 Telephone EliudLex [facility] 1.2.840.114 [id number] Univers 00:00:00 00:00:00 [facility] 350.1.13.10 it y of [place] 4.2.7.2.686 Anton as TREE?BLEA [id number] [address] OFFICE [facility] 2022-10-14 2022-10-14 Outpatient REEMA FOSTER [id number] Reema 00:00:00 00:00:00 FABIAN mejias 2022-10-14 2022-10-14 Outpatient REEMA FOSTER [id number] Reema 00:00:00 00:00:00 FABIAN mejias 2022-10-13 2022-10-13 Outpatient REEMA AZEVEDO [id number] Reema 00:00:00 00:00:00 JOHNNIE mejias 2022-10-10 2022-10-10 Telephone Provider, [facility] 1.2.840.114 [id number] Univers 00:00:00 00:00:00 [facility] 350.1.13.10 it y of Urgent Care [place] 4.2.7.2.686 [place] TREE?BLEA [id number] [address] 2022-10-09 2022-10-09 Outpatient MONIK ORTIZ [facility] [id number] Univers 12:40:00 14:13:19 AURORA ity of [facility] 2022-10-09 2022-10-09 Urgent Aurora Avendaño [facility] 1.2.840.114 [id number] Univers 12:40:00 14:13:19 Care Unknown, [facility] HEALTH 350.1.13.10 ity of [place] 4.2.7.2.686 Anton as TREE?BLEA [id number] [address] OFFICE [facility] 2022-10-09 2022-10-09 Telephone Provider, [facility] 1.2.840.114 [id number] Univers 00:00:00 00:00:00 Ang Db HEALTH 350.1.13.10 it y of Urgent Care [place] 4.2.7.2.686 [place] TREE?BLEA [id number] [address] MEDICAL OFFICE [facility] 2022-10-09 2022-10-09 Rodrigo Avendaño [facility] 1.2.840.114 [id number] Univers 00:00:00 00:00:00 [facility] HEALTH 350.1.13.10 it y of [place] 4.2.7.2.686 Anton as TREE?BLEA [id number] [address] OFFICE [facility] 2022-10-07 2022-10-07 Outpatient PREZAREEMA Coleman [id number] Reema 00:00:00 00:00:00 JOHNNIE Seybol d 2022-09-30 2022-09-30 Outpatient REEMA AZEVEDO [id number] Reema 00:00:00 00:00:00 JOHNNIE Seybol d 2022-09-29 2022-09-29 Outpatient PREZAREEMA Coleman [id number] Reema 14:15:00 14:15:00 JOHNNIE Seybol d 2022-09-26 2022-09-26 Outpatient PREZASREEMA [id number] Reema 14:15:00 14:15:00 JOHNNIE Seybol d 2022-09-26 2022-09-26 Outpatient PREREEMA BLANCO [id number] Reema 00:00:00 00:00:00 JOHNNIE Seybol d 2022-09-23 2022-09-23 Outpatient LAB90 REEMA MOJICA [id number] Reema 11:10:00 11:10:00 Seybol d 2022-09-22 2022-09-22 Outpatient ARUN MERCER [id number] Reema 14:45:00 14:45:00 Seybol d 2022-09-22 2022-09-22 Outpatient PREREEMA BLANCO [id number] Reema 00:00:00 00:00:00 JOHNNIE Seybol d 2022-09-19 2022-09-19 Outpatient PREZAREEMA Coleman [id number] Reema 15:15:00 15:15:00 JOHNNIE Seybol d 2022-09-15 2022-09-15 Outpatient REEMA AZEVEDO [id number] Reema 00:00:00 00:00:00 JOHNNIE Seybol d 2022-08-29 2022-08-29 Outpatient REEMA AZEVEDO [id number] eRema 14:15:00 14:15:00 JOHNNIE Seybol d 2022-08-28 2022-08-28 Outpatient REEMA FOSTER [id number] Reema 13:45:00 13:45:00 FABIAN Seybol d 2022-08-26 2022-08-26 [facility] [id number] 10:20:00 10:40:00 Visit Summer [facility] [id number] [facility] [id number] [facility] [id number] [address] OFFICE BUILDING 2022-08-26 2022-08-26 [id number] [facility] 10:20:00 10:20:00 SUMMER [facility] 2022-08-20 2022-08-20 Outpatient REEMA AZEVEDO [id number] Reema 00:00:00 00:00:00 JOHNNIE Seybol d 2022 2022 Outpatient LAB90 REEMA MOJICA [id number] Reema 14:10:00 14:10:00 Seybol d 2022-08-07 2022-08-07 Outpatient ARUN MERCER [id number] Reema 14:00:00 14:00:00 Seybol d 2022-08-01 2022-08-01 Outpatient REEMA AZEVEDO [id number] Reema 10:45:00 10:45:00 JOHNNIE Seybol d 2022-07-31 2022-07-31 Outpatient REEMA AZEVEDO [id number] Reema 00:00:00 00:00:00 JOHNNIE Seybol d 2022-07-25 2022-07-25 Outpatient PREZATomi REEMA MOJICA [id number] Reema 11:30:00 11:30:00 JOHNNIE Seybol d 2022-07-24 2022-07-24 Outpatient PREZATomi REEMA MOJICA [id number] Reema 00:00:00 00:00:00 JOHNNIE Seybol d 2022-07-14 2022-07-14 Outpatient RUSLAN ARUN MOJICA [id number] Reema 13:30:00 13:30:00 Seybol d 2022-07-08 2022-07-08 Outpatient RUSLAN, ARUN REEMA MOJICA [id number] Reema 00:00:00 00:00:00 Seybol d 2022-07-04 2022-07-04 Outpatient PREZAS, REEMA MOJICA [id number] Reema 13:45:00 13:45:00 JOHNNIE Seybol d 2022-07-02 2022-07-02 Outpatient PREZASREEMA [id number] Reema 10:45:00 10:45:00 JOHNNIE Seybol d 2022-07-02 2022-07-02 Outpatient RUSLAN, ARUN REEMA MOJICA [id number] Reema 09:45:00 09:45:00 Seybol d 2022-07-01 2022-07-01 Outpatient PREZAS, REEMA MOJICA [id number] Reema 15:00:00 15:00:00 JOHNNIE Seybol d 2022-07-01 2022-07-01 Outpatient PREZASREEMA [id number] Reema 00:00:00 00:00:00 JOHNNIE Seybol d 2022-07-01 2022-07-01 Outpatient ARUN MERCER REEMA MOJICA [id number] Reema 00:00:00 00:00:00 Seybol d 2022-07-01 2022-07-01 Outpatient RUSLAN, ARUN MOJICA [id number] Reema 00:00:00 00:00:00 Seybol d 2022-06-30 2022-06-30 Outpatient LABEvi MOJICA [id number] Reema 10:20:00 10:20:00 Seybol d 2022-06-30 2022-06-30 Outpatient REEMA TIPTON [id number] Reema 09:15:00 09:15:00 [place]LAND Seybo ld 2022-06-24 2022-06-24 Office Neo Azevedo 1.2.840.114 [id number] Reema 14:45:00 15:15:00 Visit Johnnie Cavanaugh 350.1.13.13 Se ybold 1.2.7.2.686 [id number] 0 2022-06-24 2022-06-24 Outpatient ARUN MERCER [id number] Reema 00:00:00 00:00:00 Seybol d 2022-06-23 2022-06-23 Outpatient REEMA AZEVEDO [id number] Reema 00:00:00 00:00:00 JOHNNIE Seybol d 2022-06-17 2022-06-17 Office Neo Azevedo 1.2.840.114 [id number] Reema 14:45:00 15:15:00 Visit Johnnie Cavanaugh 350.1.13.13 Se ybold 1.2.7.2.686 [id number] 0 2022-06-17 2022-06-17 Outpatient REEMA AZEVEDO [id number] Reema 00:00:00 00:00:00 JOHNNIE Seybol d 2022-06-13 2022-06-13 Outpatient REEMA FOSTER [id number] Reema 00:00:00 00:00:00 FABIAN Seybol d 2022-06-13 2022-06-13 Outpatient ARUN MERCER [id number] Reema 00:00:00 00:00:00 Seybol d 2022-06-13 2022-06-13 Outpatient REEMA FOSTER [id number] Reema 00:00:00 00:00:00 FABIAN Seybol d 2022-06-12 2022-06-12 Outpatient ARUN MERCER [id number] Reema 09:45:00 09:45:00 Seybol d 2022-06-10 2022-06-10 Outpatient REEMA FOSTER [id number] Reema 00:00:00 00:00:00 FABIAN Seybol d 2022-06-04 2022-06-04 Outpatient ARUN MERCER REEMA MOJICA [id number] Reema 00:00:00 00:00:00 Seybol d 2022-06-04 2022-06-04 Outpatient REEMA FOSTER [id number] Reema 00:00:00 00:00:00 FABIAN Seybol d 2022-06-02 2022-06-02 Outpatient REEMA FOSTER [id number] Reema 00:00:00 00:00:00 FABIAN Seybol d 2022-05-26 2022-05-26 Outpatient MIREYA MOJICA [id number] Reema 00:00:00 00:00:00 MD KYLAH Seybol d 2022-05-22 2022-05-22 Outpatient ARUN MERCER REEMA MOJICA [id number] Reema 00:00:00 00:00:00 Seybol d 2022-05-21 2022-05-21 Outpatient LAB90 REEMA MOJICA [id number] Reema 14:50:00 14:50:00 Seybol d 2022-05-19 2022-05-19 Outpatient REEMA FOSTER [id number] Reema 00:00:00 00:00:00 FABIAN Seybol d 2022-04-24 2022-04-24 Refill MONIK Lucas 1.2.840.114 [id number] Univers 00:00:00 00:00:00 [facility] 350.1.13.10 it y of [place] 4.2.7.2.686 Anton as TREE?BLEA [phone] [address] OFFICE BUILDING 2022-04-23 2022-04-23 Outpatient REEMA FOSTER [id number] Reema 00:00:00 00:00:00 FABIAN Seybol d 2022-04-15 2022-04-15 Office Neo Foster 1.2.840.114 [id number] Reema 13:30:00 14:00:00 Visit Fabian Friant 350.1.13.13 Se shan Pierreogyi 1.2.7.2.686 [id number] 0 2022-04-09 2022-04-09 Office Arun Mercer PINA 1.2.840.114 [id number] Reema 14:30:00 15:00:00 Visit Eneida LARSON 350.1.13.13 Se shan 1.2.7.2.686 [id number] 0 2022-04-01 2022-04-01 Outpatient KRISTIN REEMA MOJICA [id number] Reema 00:00:00 00:00:00 FABIAN mejias 2022-03-17 2022-03-17 Office Neo Foster 1.2.840.114 [id number] Reema 14:45:00 15:00:00 Visit Fabian Cavanaugh 350.1.13.13 Se shan Pierreogyi 1.2.7.2.686 [id number] 0 2022-02-26 2022-02-26 Telephone [facility] 1.2.840.114 [id number] [facility] 00:00:00 00:00:00 [facility] [employer] 350.1.13.10 it y of [place] 4.2.7.2.686 Anton as TREE?BLEA [phone] [address] OFFICE [facility] 2022-02-25 2022-02-25 Outpatient LAB90 REEMA REEMA [id number] Reema 09:10:00 09:10:00 Asaf mejias 2022-02-25 2022-02-25 Office Neo Foster 1.2.840.114 [id number] Reema 08:30:00 08:45:00 Visit Fabian Cavanaugh 350.1.13.13 Se shan Pierreogyi 1.2.7.2.686 [id number] 2022-02-24 2022-02-24 Outpatient R CECILIA ABRAHAM [facility] [id number] Univers 15:30:00 15:30:00 CECILIA ABRAHAM [facility] 2022-02-23 2022-02-23 [facility] 1.2.840.114 [id number] Univers 00:00:00 00:00:00 [employer] 350.1.13.10 it y of [place] 4.2.7.2.686 [facility] [phone] [facility] [address] OFFICE BUILDING 2022-02-21 2022-02-21 Outpatient REEMA FOSTER [id number] Reema 00:00:00 00:00:00 FABIANVALE Cassidyol magalie 2022-02-19 2022-02-19 [id number] Univers 14:17:55 23:59:00 PAT [facility] 2022-02-19 2022-02-19 [facility] 1.2.840.114 [id number] Univers 14:17:55 23:59:00 Encounter Pat [facility] 350.1.13.10 [facility] 4.2.7.2.686 [facility] [phone] [facility] [address] 2022-02-18 2022-02-18 Outpatient R LANCE [facility] [id number] Univers 13:30:00 13:30:00 [facility] 2022-02-18 2022-02-18 Out[facility] [id number] Univers 13:30:00 13:30:00 [facility] 2022-02-18 2022-02-18 Outpatient [facility] [id number] Univers 13:30:00 13:30:00 [facility] 2022-02-18 2022-02-18 Outpatient REEMA FOSTER [id number] Reema 00:00:00 00:00:00 FABIAN Snyderybol magalie 2022-02-13 2022-02-13 Outpatient REEMA FOSTER [id number] Reema 00:00:00 00:00:00 FABIAN Seybol magalie 2022-02-13 2022-02-13 Outpatient REEMA FOSTER [id number] Reema 00:00:00 00:00:00 FABIAN Seybol magalie 2022-02-12 2022-02-12 Outpatient LAB90 REEMA MOJICA [id number] Reema 14:45:00 14:45:00 Seabhijitol magalie 2022-02-12 2022-02-12 Office Neo Foster 1.2.840.114 [id number] Reema 14:00:00 14:30:00 Visit Fabian Cavanaugh 350.1.13.13 Se shan Ti 1.2.7.2.686 [id number] 0 2022-02-11 2022-02-11 Outpatient REEMA FOSTER [id number] Reema 00:00:00 00:00:00 FABIAN Seybol d 2022-02-07 2022-02-07 Outpatient REEMA FOSTER [id number] Reema 00:00:00 00:00:00 FABIAN Seybol magalie 2022-01-29 2022-01-29 Outpatient REEMA FOSTER [id number] Reema 00:00:00 00:00:00 FABIANVALE Cassidyol magalie 2022-01-29 2022-01-29 Orders LINDA Jarvis 1.2.840.114 [id number] [facility] 00:00:00 00:00:00 Only Pat CAVAZOSY 350.1.13.10 it y of HOSPITAL 4.2.7.2.686 Anton as [phone] [place] [address] [address] 2022-01-28 2022-01-28 Outpatient LAB90 REEMA MOJICA [id number] Reema 14:25:00 14:25:00 Asaf mejias 2022-01-28 2022-01-28 Office Neo FOSTER 1.2.840.114 [id number] Reema 13:30:00 13:30:00 Visit FABIAN Cavanaugh 350.1.13.13 Se shan 1.2.7.2.686 [id number] 0 2022-01-27 2022-01-27 Outpatient Jose Francisco ALANIZ [facility] [id number] Univers 13:00:00 13:00:00 LISSETTE keita of [facility] 2022-01-21 2022-01-21 Rodrigo Jarvis MTGERARDO 1.2.840.114 [id number] Univers 00:00:00 00:00:00 Pattaylor ROBLERO 350.1.13.10 it y of [place] 4.2.7.2.686 Jose Antonio LARSON [id number] [facility] [address] OFFICE BUILDING 2022-01-102022-01-10 Telephone Pearl [facility] 1.2.840.114 [id number] Univers 00:00:00 00:00:00 Wondiful A HEALTH 350.1.13.10 ity of [facility] 4.2.7.2.686 Anton as TREE?BLEA [phone] [facility] [address] MEDICAL OFFICE BUILDING 2022-01-09 2022-01-09 Letter LINDA Campos 1.2.840.114 [id number] Univers 00:00:00 00:00:00 (Out) Kendra Gray MILENA 350.1.13.10 it y of HOSPITAL 4.2.7.2.686 Anton as [phone] [address] 2022-01-08 2022-01-08 Outpatient R NABOR [facility] [id number] Univers 12:40:00 12:48:05 KAREN [facility] 2022-01-08 2022-01-08 Urgent Nabor Karen [facility] 1.2.840.114 [id number] Univers 12:40:00 12:48:05 [facility] 350.1.13.10 ity of [place] 4.2.7.2.686 Anton as TREE?BLEA [phone] Wi logan CARVER 370 [facility] OFFICE BUILDING 2022-01-02 2022-01-02 Office [facility] 1.2.840.114 [id number] Univers 13:00:00 14:01:36 Visit [facility] 350.1.13.10 it [place].2.[place] [phone] [facility] [address] OFFICE BUILDING 2022-01-02 2022-01-02 Outpatient R [facility] [id number] Univers 13:00:00 14:01:36 [facility] 2022-[facility]-02 2022-01-02 Outpatient R [facility] [id number] Univers 13:00:00 14:01:36 PAT [facility] 2022-01-02 2022-01-02 Outpatient R [facility] [id number] Univers 13:00:00 13:00:00 PAT ittaylor [facility] 2022-01-02 2022-01-02 Outpatient R SIMONA [facility] [id number] Univers 13:00:00 13:00:00 PAT ittaylor [facility] 2022-01-02 2022-01-02 Orders Doctor LINDA 1.2.840.114 [id number] Univers 00:00:00 00:00:00 Only Unassigned, MILENA 350.1.13.10 ity of [facility] 4.2.7.2.686 Anton as [phone] [address] 2021-11-09 2021-11-09 Urgent Nabor [facility] 1.2.840.114 [id number] Univers 17:40:00 18:00:00 Care Karen [facility] 350.1.13.10 it y of [facility] 4.2.7.2.686 Anton as TREE?BLEA [phone] Wi sophiedenise VAZ [address] MEDICAL OFFICE BUILDING 2021-11-09 2021-11-09 Outpatient R NABOR [facility] [id number] Univers 17:40:00 17:40:00 [facility] 2021-10-23 2021-10-23 Outpatient R LANCE [facility] [id number] Univers 12:45:00 13:03:37 [facility] 2021-10-23 2021-10-23 Pipeman Lab, Ajay - Luis F [facility] 1.2.840.1 14 [id number] Univers 12:45:00 13:00:00 Visit Lucas [facility] 350.1.13.10 ity of [place] 4.2.7.2.686 Anton as TREE?BLEA [phone] Wi sophiedenise [facility] [address] MEDICAL OFFICE BUILDING 2021-10-23 2021-10-23 Outpatient R [facility] [id number] Univers 12:00:00 12:46:03 [facility] 2021-10-23 2021-10-23 [facility] 1.2.840.114 [id number] Univers 12:00:00 12:46:03 Visit Wentong HEALTH 350.1.13.10 it y of [place] 4.2.7.2.686 Antno as TREE?BLEA [phone] Wi logan CARVER [address] MEDICAL OFFICE BUILDING 2021-10-11 2021-10-11 Telephone [facility] 1.2.840.114 [id number] Univers 00:00:00 00:00:00 Wondiful A HEALTH 350.1.13.10 ity of [place] 4.2.7.2.686 Anton as TREE?BLEA [phone] Wi logan CARVER [address] MEDICAL OFFICE [facility] 2021-10-07 2021-10-07 Telephone [facility] 1.2.840.114 [id number] Univers 00:00:00 00:00:00 Wondiful A HEALTH 350.1.13.10 ity of [place] 4.2.7.2.686 Anton as TREE?BLEA [phone] Wi logan [facility] 370 [facility] OFFICE [facility] 2021-10-04 2021-10-04 Urgent Aurora Avendaño [facility] 1.2.840.114 [id number] Univers 17:00:00 17:20:00 Care Samantha, [facility] 350.1.13.10 ity of [place] 4.2.7.2.686 Anton as TREE?BLEA [phone] Wi logan CARVER 370 [facility] OFFICE [facility] 2021-10-04 2021-10-04 Outpatient R SAMAN[facility]ASELECT [facility] [id number] Univers 17:00:00 17:00:00 STEVE keita o f [facility] 2021-08-27 2021-08-27 Telephone [facility] 1.2.840.114 [id number] Univers 00:00:00 00:00:00 Wondiful A HEALTH 350.1.13.10 ity of [place] 4.2.7.2.686 Anton as TREE?BLEA [phone] Wi logan CARVER 044 [facility] OFFICE [facility] 2021-08-16 2021-08-16 Rodrigo [facility] 1.2.840.114 [id number] Univers 00:00:00 00:00:00 [place] HEALTH 350.1.13.10 it y of [place] 4.2.7.2.686 Anton as TREE?BLEA [phone] [facility] [address] MEDICAL OFFICE [facility] 2021-08-14 2021-08-14 Rodrigo Lucas [facility] 1.2.840.114 [id number] Univers 00:00:00 00:00:00 [place] [facility] 350.1.13.10 it y of [place] 4.2.7.2.686 Anton as TREE?BLEA [phone] Wi logan CARVER [address] MEDICAL OFFICE [facility] 2021-08-13 2021-08-13 Outpatient [facility] [id number] Univers 08:58:00 11:16:00 RAJAT coronay [facility] 2021-08-13 2021-08-13 [facility] 1.2.840.114 [id number] Univers 08:58:00 11:16:00 Encounter [facility] 350.1.13.10 ity of [place] 4.2.7.2.[address] [facility] [phone] [address] ([facility]) 2021-08-13 2021-08-13 Surgery [facility] 1.2.840.114 [id number] Univers 10:30:00 11:04:00 [facility] SPECIALTY 350.1.13.10 ity of CARE 4.2.7.2.686 [facility] AT [phone] Wi logan ANDRES [address] [facility] 2021-08-13 2021-08-13 Orders Doctor LINDA 1.2.840.114 [id number] Univers 00:00:00 00:00:00 Only Unassigned, MILENA 350.1.13.10 ity of [place] [facility] 4.2.7.2.686 Anton as [phone] [address] 2021-08-06 2021-08-06 Outpatient R VISHNU [facility] [id number] Univers 14:20:00 14:20:00 JACQUE keita [facility] 2021-08-01 2021-08-01 Telephone [facility] 1.2.840.114 [id number] Univers 00:00:00 00:00:00 Wondiful A Health 350.1.13.10 ity of [place] 4.2.7.2.686 Anton as Tree?Blea [phone] Wi logan carver [address] [facility] 2021-07-30 2021-07-30 Laboratory Only, Ang Db Test [facility] 1.2.8 40.114 [id number] Univers 16:13:20 16:28:20 Only Steve [facility] 350.1.13.10 ity of [place] 4.2.7.2.686 Anton as Tree?Blea [phone] Wi logan carver [address] [facility] Office [facility] 2021-07-30 2021-07-30 Outpatient R SAMANTHA [facility] [id number] [facility] 16:15:00 16:15:00 STEVE ity o f [facility] 2021-07-17 2021-07-17 Pipeman Lab, Ang - Db [facility] 1.2.840.1 14 [id number] [facility] 09:28:13 09:43:13 Visit Pilar [facility] 350.1.13.1 0 ity of [place] 4.2.7.2.686 Anton as Tree?Blea [phone] Wi logan carver [address] [facility] Office [facility] 2021-07-17 2021-07-17 Outpatient R [facility] [id number] Univers 09:30:00 09:30:00 ity of [facility] 2021-07-16 2021-07-16 Office [facility] 1.2.840.114 [id number] [facility] 09:34:08 10:31:44 Visit Mickeyful A Health 350.1.13.10 ity of [place] 4.2.7.2.686 Anton as Tree?Blea [phone] Wi logan carver [address] [facility] Office [facility] 2021-07-16 2021-07-16 Outpatient R [facility] [id number] Univers 09:30:00 09:30:00 WONDIFUL ity o f [facility] 2021-07-11 2021-07-11 Refill Samantha [facility] 1.2.840.114 [id number] Univers 00:00:00 00:00:00 Steve [facility] 350.1.13.10 i ty of [place] 4.2.7.2.686 Anton as Professio [phone] Wi logan scales [address] Office [address] [facility] 2021-07-03 2021-07-03 Office [facility] 1.2.840.114 [id number] Univers 15:40:46 16:47:20 Visit [facility] 350.1.13.10 it y of [place] 4.2.7.2.686 Anton as Tree?Blea [phone] Wi dicdenise vaz [address] [facility] [address] [facility] 2021-07-03 2021-07-03 Outpatient R [facility] [id number] Univers 15:30:00 15:30:00 [facility] ity [facility] 2021-06-25 2021-06-25 Telephone [facility] 1.2.614.063 [id number] Univers 00:00:00 00:00:00 [facility] 350.1.13.10 it y of [place] 4.2.7.2.686 Anton as Tree?Blea [phone] Wi dicdenise carver [address] [facility] Office [facility] 2021-06-20 2021-06-20 Telephone [facility] 1.2.103.015 [id number] Univers 00:00:00 00:00:00 [facility] 350.1.13.10 it y of [place] 4.2.7.2.686 Anton as Tree?Blea [phone] Wi dicdenise carver [address] Medical Office Building 2021-06-14 2021-06-14 Letter LINDA Campos 1.2.840.114 [id number] Univers 00:00:00 00:00:00 (Out) Kendra ABBOTT 350.1.13.10 it y of [facility] 4.2.7.2.686 Anton as [phone] [address] 2021-06-14 2021-06-14 Letter LINDA Campos 1.2.840.114 [id number] Univers 00:00:00 00:00:00 (Out) Kendra ABBOTT 350.1.13.10 it y of HOSPITAL 4.2.7.2.686 Anton as [phone] [facility] [address] 2021-06-13 2021-06-13 Laboratory Only, Ang Db Test [facility] 1.2.8 40.114 [id number] Univers 13:56:12 14:06:12 Only Karen Tomlin [facility] 350.1.13.10 ity of [place] 4.2.7.2.686 Anton as Tree?Blea [phone] Wi logan carver [address] [place] [address] Medical Office Building 2021-06-13 2021-06-13 Outpatient R NABOR [facility] [id number] Univers 14:00:00 14:00:00 KAREN ity [facility] 2021-06-12 2021-06-12 Office Sury [facility] 1.2.840.114 [id number] Univers 10:04:18 10:34:18 Visit Marizol SPECIALTY 350.1.13.10 ity of [place].7.2.686 [place] C[place] AT [phone] Wi logan ANDRES [address] [place] [address] 2021-06-12 2021-06-12 Office Sury [facility] 1.2.840.114 [id number] Univers 10:04:18 10:34:18 Visit Marizol SPECIALTY 350.1.13.10 ity of [place] CARE 4.2.7.2.686 [place] CENTER AT [phone] Wi sophiedenise ANDRES [address] [place] [address] 2021-06-12 2021-06-12 Outpatient R SURY [facility] [id number] Univers 10:00:00 10:00:00 MARIZOL ity [facility] 2021-06-12 2021-06-12 Orders Doctor MCKEON 1.2.840.114 [id number] Univers 00:00:00 00:00:00 Only Unassigned, MILENA 350.1.13.10 ity of [place] [facility] 4.2.7.2.686 Anton as [phone] [facility] [address] 2021-06-12 2021-06-12 Orders Doctor MCKEON 1.2.840.114 [id number] Univers 00:00:00 00:00:00 Only Unassigned, MILENA 350.1.13.10 ity of [place] [facility] 4.2.7.2.686 Anton as [phone] [facility] [address] 2021-05-30 2021-05-30 Kathrin Danii Estrada 1.2.840.114 [id number] Univers 00:00:00 00:00:00 (Out) MILENA 350.1.13.10 it y of HOSPITAL 4.2.7.2.686 Anton as [phone] [facility] [address] 2021-05-28 2021-05-28 Outpatient R NABOR [facility] [id number] Univers 18:40:00 18:40:00 KAREN ity of [facility] 2021-05-17 2021-05-17 [facility] 1.2.840.114 [id number] Univers 00:00:00 00:00:00 Wondiful A Health 350.1.13.10 ity of [place] 4.2.7.2.686 Anton as Professio [phone] [address] 2021-05-16 2021-05-16 [facility] 1.2.840.114 [id number] Univers 00:00:00 00:00:00 Wondiful A Health 350.1.13.10 ity of [place] 4.2.7.2.686 Anton as Professio [phone] [address] 2021-05-06 2021-05-06 [facility] 1.2.840.114 [id number] Univers 00:00:00 00:00:00 Steve [place] 350.1.13.10 ity of [place].2.[place] Profess[place] [phone] [address] 2021-05-03 2021-05-03 [facility] 1.2.159.611 [id number] Univers 14:30:00 23:59:00 Encounter Steve [place] 350.1.13.10 ity of [place] 4.2.7.2.686 [place] [phone] [address] 2021-05-03 2021-05-03 Outpatient R [facility]ASELECT [facility] [id number] Univers 00:00:00 00:00:00 STEVE ity o f [facility] 2021-05-02 2021-05-02 Telephone [facility] 1.2.840.114 [id number] Univers 00:00:00 00:00:00 Steve Health 350.1.13.10 i ty of [place] 4.2.7.2.686 Anton as Professio [phone] Wi dical nal [address] Office [facility] 2021-05-02 2021-05-02 Telephone [facility] 1.2.840.114 [id number] Univers 00:00:00 00:00:00 Steve Cheek 350.1.13.10 ity of [place].2.[place] Profess[place] [phone] Wi dical nal 044 [facility] 2021-04-25 2021-04-25 [facility] 1.2.840.114 [id number] Univers 00:00:00 00:00:00 Steve Health 350.1.13.10 i ty of [place] 4.2.7.2.686 Anton as Professio [phone] Wi dical nal 044 [facility] 2021-04-24 2021-04-24 Pipeman 2, Adc Lab [facility] 1.2.840.114 [id number] Univers 13:45:23 14:00:23 Visit Nedra Singhtantaylor Cheek 350.1.13.10 ity of [id number] [phone] Wi dical nal 353 [facility] 2021-04-24 2021-04-24 Office [facility] 1.2.840.114 [id number] [facility] 12:52:06 13:39:19 Visit Steve Cheek 350.1.13.10 it[place] of [id number] [phone] Wi dical nal 044 [facility] 2021-04-24 2021-04-24 Outpatient R SAMANTHA [facility] [id number] Univers 13:00:00 13:00:00 STEVE keita o f [facility] 2021-04-11 2021-04-11 Rodrigo Kang [facility] 1.2.840.114 [id number] Univers 00:00:00 00:00:00 Wondiful [facility] [id number] ity of [place] [id number] [place] Professio [phone] [facility] [address] 2021-04-04 2021-04-04 [facility] 1.2.840.114 [id number] Univers 13:07:38 13:40:24 Visit Pat [employer] 350.1.13.10 [place] [phone] [facility] [address] 2021-04-04 2021-04-04 [facility] [id number] Univers 13:00:00 13:00:00 PAT [facility] 2021-03-28 2021-03-28 Telephone LINDA Armstrong [id number] Univers 00:00:00 00:00:00 Farhad ABBOTT 350.1.13.10 i ty of [facility] 4.2.7.2.686 Anton as [phone] [facility] [address] 2021-03-20 2021-03-20 Office [facility] 1.2.840.114 [id number] Univers 14:56:49 15:47:12 Visit [facility] [id number] i ty [id number] [phone] [facility] 220 [facility] 2021-03-20 2021-03-20 Outpatient [facility] [id number] Univers 15:00:00 15:00:00 ARTHUR [facility] 2021-03-20 2021-03-20 Orders Doctor MCKEON 1.2.840.114 [id number] Univers 00:00:00 00:00:00 Only Unassigned, MILENA 350.1.13.10 ity of [place] [facility] 4.2.7.2.686 [place] as [phone] [address] 2021-03-04 2021-03-04 Telephone [facility] 1.2.292.213 [id number] Univers 00:00:00 00:00:00 Esther [facility] 350.1.13.10 i ty of [place] [id number] [place] as Professio [phone] Wi dical nal 044 [facility] One 2021-02-19 2021-02-19 Ref[facility]inka [facility] 1.2.840.114 [id number] Univers 00:00:00 00:00:00 Wondiful [facility] 350.1.13.10 ity of [place] 4.2.7.2.686 Anton as Professio [phone] Wi dicma nal 044 [facility] One 2021-02-19 2021-02-19 Orders Doctor LINDA 1.2.840.114 [id number] Univers 00:00:00 00:00:00 Only Unassigned, MILENA 350.1.13.10 ity of [place] [facility] 4.2.7.2.686 Anton as [phone] [address] 2021-02-18 2021-02-18 Refyinka [facility] 1.2.840.114 [id number] Univers 00:00:00 00:00:00 Wondiful A Health 350.1.13.10 ity of [place] 4.2.7.2.686 Anton as Professio [phone] Wi dical nal 044 [facility] One 2021-02-13 2021-02-13 Pipeman [facility] Main [facility] 1.2.8 40.114 [id number] Univers 12:06:05 12:21:05 Visit SamanthaSteve castillo Adia 350.1.13.10 ity of [place] [phone] Wi dical nal 353 [facility] 2021-02-13 2021-02-13 Outpatient Jose Francisco SINGH [facility] [id number] Univers 11:00:00 11:50:39 STEVE jung [facility] 2021-02-13 2021-02-13 Office [facility] 1.2.840.114 [id number] Univers 10:59:05 11:50:39 Visit Steve Cheek 350.1.13.10 ity rodolfo Carrera 4.2.7.2.686 [facility] [phone] Wi dical nal 044 [facility] 2021-02-13 2021-02-13 Outpatient R SAMANTHA [facility] [id number] Univers 11:00:00 11:00:00 STEVE jung [facility] 2021-02-13 2021-02-13 Outpatient Jose [facility] [id number] Univers 11:00:00 11:00:00 STEVE leger [facility] 2021-02-13 2021-02-13 Outpatient Jose Francisco SINGH [facility] [id number] Univers 11:00:00 11:00:00 STEVE leger [facility] 2021-02-11 2021-02-11 Outpatient Jose Francisco [facility] [id number] Univers 13:30:00 13:30:00 STEVE leger [facility] 2021-02-08 2021-02-08 Telephone [facility] .2.840.114 83 [id number] Univers 00:00:00 00:00:00 Chrissy SANCHEZ 350.1.13.10 ity Frederic PERRY 4.2.7.2.686 [facility] [phone] [facility] SHAD KAY [address] [facility] 2021-02-07 2021-02-07 Outpatient Jose Francisco [facility] [id number] Univers 13:30:00 13:30:00 STEVE leger [facility] 2021-02-07 2021-02-07 Telephone [facility] 1.2.490.463 [id number] 00:00:00 00:00:00 Esther A Health 350.1.13.10 [place] 4.2.7.2.686 Professio [phone] nal [facility] Office [facility] One 2021-02-07 2021-02-07 Emergency [facility] 064 [id number] 03 [place] 00:00:00 00:00:[address] 2021-02-07 2021-02-07 [facility] 1.2.871.552 5181 3094 [facility] 00:00:00 00:00:00 Esther A Health 350.1.13.10 i ty of [place] 4.2.7.2.686 Anton as Professio [phone] Wi dical [address] [facility] One 2021-02-06 2021-02-06 Telephone [facility] 1.2.655.106 [id number] 8777 Univers 00:00:00 00:00:00 Esther A Health 350.1.13.10 i ty of [place] 4.2.7.2.686 Anton as Professio [phone] Wi dic[address] [facility] One 2021-02-01 2021-02-01 Telephone [facility] 1.2.840.114 83 [id number] 00:00:00 00:00:00 Chrissy MULTISPEC 350.1.13.10 Radha PERRY 4.2.7.2.686 [place] [phone] [place] [address] [facility] 2021-02-01 2021-02-01 Transition Sommer Conway 1.2.840.114 83 [id number] 00:00:00 00:00:00 of Care Heather Juan 350.1.13.10 [place] 4.2.7.2.686 [phone] 403 2021-02-01 2021-02-01 Telephone [facility] 1.2.840.114 83 [id number] [facility] 00:00:00 00:00:00 Chrissy MULTISPEC 350.1.13.10 ity of [place].2.7.2.686 [place] C[place] [phone] [facility] AND KAY [address] [facility] 2021-02-01 2021-02-01 Transition Sommer Conway 1.2.840.114 83 [id number] Univers 00:00:00 00:00:00 of Care Heather Juan 350.1.13.10 i ty of [place]2.7.2.686 [place] [phone] [facility] [address] 2021-01-29 2021-01-31 [facility] Arcenio Handnie 1.2.840.1 14 [id number] 16:44:00 17:15:00 Encounter Huy Barrera 350.1.13. [address] [facility] 4.2.7.2.686 [phone] [facility] 2021-01-29 2021-01-31 [facility] Hand Arceniodidi Chavez 1.2.840.1 14 [id number] Univers 16:44:00 17:15:00 Encounter Huy Barrera 350.1.13. [address] [facility] 4.2.7.2.686 [place] [phone] [facility] [address] [place] 2021-01-29 2021-01-29 Office [facility] 1.2.840.114 [id number] 15:27:18 16:23:45 Visit [facility] 350.1.13.10 [place] 4.2.7.2.686 Professio [phone] [address] One 2021-01-29 2021-01-29 Office [facility] 1.2.840.114 [id number] Univers 15:27:18 16:23:45 Visit [facility] 350.1.13.10 i ty of [place] 4.2.7.2.686 Anton as Professio [phone] Wi dical [address] [facility] One 2021-01-29 2021-01-29 Outpatient R SAMANTHA [facility] [id number] Univers 15:30:00 15:30:00 STEVE keita o f [facility] 2021-01-23 2021-01-23 Telephone [facility] 1.2.608.762 [id number] Univers 00:00:00 00:00:00 Esther A Health 350.1.13.10 i ty of [place] 4.2.7.2.686 [place] as Professio [phone] [address] [facility] One 2021-01-22 2021-01-22 Telephone [facility] 1.2.429.357 [id number] 0189 Univers 00:00:00 00:00:00 Esther A Health 350.1.13.10 i ty of [place] 4.2.7.2.686 [place] as Professio [phone] [address] [facility] One 2021-01-15 2021-01-15 Telephone [facility] 1.2.840.11 4 [id number] Univers 00:00:00 00:00:00 Pat Y HEALTH 350.1.13.10 i ty of [place] [phone] [address] 2021-01-10 2021-01-10 Office [facility] 1.2.840.114 83 [id number] Univers 16:04:28 17:06:38 Visit Pat Health 350.1.13.10 it y of [place]7.2.[place] [phone] [address] Office Building 2021-01-10 2021-01-10 Outpatient R [facility] 565 [id number] Univers 16:20:00 16:20:00 PAT ity of [facility] 2021-01-10 2021-01-10 Telephone [facility] 1.2.840.114 [id number] Univers 00:00:00 00:00:00 Pat Health 350.1.13.10 it y of [place].2.[place] [phone] [address] Office Building 2021-01-04 2021-01-04 Refill [facility] 1.2.840.114 83 [id number] Univers 00:00:00 00:00:00 Pat Health 350.1.13.10 it y of [place].2.[place] [phone] [address] Office Building 2021-01-04 2021-01-04 Refill [facility] 1.2.840.114 83 [id number] Univers 00:00:00 00:00:00 Pat Health 350.1.13.10 it y [place]2.[place] [phone] [address] Office Building 2020-12-27 2020-12-27 [facility] 1.2.840.114 8 [id number] Univers 11:09:33 23:59:00 Encounter Pat [facility] 350.1.13.10 ity of [place]2.7.2.[place] [phone] [facility] [address] Office Building 2020-12-27 2020-12-27 Office [facility] 1.2.840.114 81 [id number] Univers 11:36:00 12:29:33 Visit Pat Health 350.1.13.10 it y of [place].2.[place] [phone] [address] Office Building 2020-12-27 2020-12-27 Outpatient R [facility] 817 [id number] Univers 11:40:00 11:40:00 PAT ity of [facility] 2020-12-27 2020-12-27 Orders Doctor LINDA 1.2.840.114 [id number] Univers 00:00:00 00:00:00 Only Unassigned, MILENA 350.1.13.10 ity of [place] [facility] 4.2.7.2.686 Anton as [phone] [facility] [address] 2020-12-27 2020-12-27 Letter Doctor LINDA 1.2.840.114 [id number] Univers 00:00:00 00:00:00 (Out) Unassigned, MILENA 350.1.13.10 ity of [place] [facility] 4.2.7.2.686 Anton as [phone] [facility] [address] 2020-11-26 2020-11-26 Telephone Simona [facility] 1.2.840.11 [id number] Univers 00:00:00 00:00:00 Pat Y HEALTH 350.1.13.10 i ty of [place] [phone] [address] 2020-11-22 2020-11-22 Office [facility] 1.2.840.114 81 [id number] Univers 11:35:21 12:51:52 Visit Pat Health 350.1.13.10 it y [place]2.[place] [phone] [address] Office Building 2020-11-22 2020-11-22 Outpatient R [facility] [id number] Univers 11:40:00 11:40:00 PAT ity [facility] 2020-10-02 2020-10-02 Telephone [facility] 1.2.840.11 [id number] Univers 00:00:00 00:00:00 Pat Y HEALTH 350.1.13.10 i ty of [place] [phone] [address] 2020-10-02 2020-10-02 Telephone [facility] 1.2.896.593 [id number] [id number] Univers 00:00:00 00:00:00 Esther Cheek 350.1.13.10 ity of [place]2.7.2.[place] [phone] [address] 2020-09-25 2020-09-25 [facility] 1.2.840.114 [id number] Univers 00:00:00 00:00:00 Pat Y HEALTH 350.1.13.10 i ty of [place] [phone] [address] 2020-09-21 2020-09-21 [facility] 1.2.840.114 80 [id number] Univers 00:00:00 00:00:00 Pat Health 350.1.13.10 it y of [place]7.2.[place] [phone] [address] Office Building 2020-09-12 2020-09-12 Orders Doctor LINDA 1.2.840.114 [id number] Univers 00:00:00 00:00:00 Only Unassigned, MILENA 350.1.13.10 ity of [place] [facility] 4.2.7.2.686 Anton as [phone] [facility] [address] 2020-09-10 2020-09-10 Telephone MONIK Kang 1.2.840.114 [id number] [id number] Univers 00:00:00 00:00:00 Wondiful A Health 350.1.13.10 ity of [place] 4.2.7.2.686 Anton as Professio [phone] [address] Office Building One 2020-09-08 2020-09-08 Refill Pearl MTGERARDO 1.2.840.114 [id number] [id number] Univers 00:00:00 00:00:00 Wondiful A Health 350.1.13.10 ity of [place] 4.2.7.2.686 [place] as Professio [phone] [address] Office Building One 2020-09-05 2020-09-05 Sharan Kang MTGERARDO 1.2.840.114 [id number] Univers 00:00:00 00:00:00 Management Wondiful A Health 350.1.13.10 ity of [place] 4.2.7.2.686 Anton as Professio [phone] [address] Office Building One 2020-09-03 2020-09-03 MONIK Zamorano 1.2.840.114 [id number] [id number] Univers 00:00:00 00:00:00 Wondiful A Health 350.1.13.10 ity of [place] 4.2.7.2.686 Anton as Professio [phone] [address] Office Building One 2020-08-29 2020-08-29 Viola Kang MTGERARDO 1.2.840.114 [id number] [id number] Univers 00:00:00 00:00:00 Wondiful A Health 350.1.13.10 ity of [place] 4.2.7.2.686 [place] as Professio [phone] [facility] 044 [facility] 2020-08-28 2020-08-28 Pipeman 2, Adc Lab [facility] 1.2.840.114 [id number] Univers 09:26:46 09:41:46 Visit Donaldo Brarliermias Cheek 350.1.13.10 ity of [place] 4[place].2.[place] [phone] [facility] 353 [facility] 2020-08-28 2020-08-28 Outpatient R MAYKEL [facility] [id number] Univers 09:15:00 09:15:00 ESTHER [facility] 2020-08-27 2020-08-27 Telephone [facility] 1..953.668 [id number] Univers 00:00:00 00:00:00 Esther A Health 350.1.13.10 i ty of [place] 4.2.7.2.686 [place] as Professio [phone] [facility] 044 [facility] 2020-08-24 2020-08-24 Telemedici [facility]CR[facility] 1..840.114 79 [id number] Univers 16:20:19 17:02:34 ne Visit Pilar [facility] 350.1.13.10 ity of [place] 4.2.7.2.686 [place] as Professio [phone] [facility] 044 [facility] 2020-08-24 2020-08-24 Outpatient R PEARL [facility] [id number] Univers 16:15:00 16:15:00 WONDIFUL ity o f [facility] 2020-08-09 2020-08-09 Outpatient R SIMONA [facility] [id number] Univers 14:00:00 14:00:00 PAT ity [facility] 2020-08-03 2020-08-03 Outpatient R KAREY [facility] [id number] [id number] Univers 10:30:00 10:30:00 AGUSTÍN ity [facility] 2020-07-20 2020-07-20 SOFYA BeachIT ..840.114 [id number] Univers 00:00:00 00:00:00 Pat Y HEALTH 350.1.13.10 i ty of [place] [phone] [address] 2020-06-19 2020-06-19 RefSOFYA BernsteinIT 1.2.840.114 [id number] Univers 00:00:00 00:00:00 Pat Y HEALTH 350.1.13.10 i ty [place] [phone] [address] 2020-06-14 2020-06-14 Outpatient R PEARL [facility] [id number] Univers 08:45:00 08:45:00 WONDIFUL ity o f [facility] 2020-06-14 2020-06-14 Telephone [facility] 1.2.965.086 [id number] Univers 00:00:00 00:00:00 Esther A Health 350.1.13.10 i ty of [place] 4.2.7.2.686 [place] as Professio [phone] [address] 2020-06-12 2020-06-12 Refill Maykel [facility] 1.2.840.114 [id number] Univers 00:00:00 00:00:00 Esther A Health 350.1.13.10 i ty of [place] 4.2.7.2.686 Anton as Professio [phone] [facility] nal [address] [place] [address] 2020-06-12 2020-06-12 Refyinka Kang [facility] 1.2.840.114 [id number] Univers 00:00:00 00:00:00 Wondiful A Health 350.1.13.10 ity of [place] 4.2.7.2.686 Anton as Professio [phone] [facility] nal [address] [place] [address] 2020-06-11 2020-06-11 Urgent Provider, [facility] 1.2.840.114 [id number] Univers 14:39:50 14:59:50 Care Lissette Alaniz Health 350.1.13.10 ity of [place] 4.2.7.2.686 [place] as Professio [phone] [address] Office [facility] 2020-06-11 2020-06-11 Outpatient R [facility] [id number] Univers 14:20:00 14:20:00 ity of [facility] 2020-05-23 2020-05-23 Refyinka Brar, [facility] 1.2.840.114 [id number] Univers 00:00:00 00:00:00 Esther A Health 350.1.13.10 i ty of [place] 4.2.7.2.686 Anton as Professio [phone] [address] Office [facility] 2020-05-22 2020-05-22 Refill Jarvis, [facility] 1.2.840.114 [id number] Univers 00:00:00 00:00:00 Pat Health 350.1.13.10 it y [place] [phone] [address] [facility] 2020-05-21 2020-05-21 Telephone [facility] 1.2.840.114 [id number] Univers 00:00:00 00:00:00 Pat Health 350.1.13.10 it y [place].2.[place] [phone] [address] [facility] 2020-05-18 2020-05-18 [facility] 1.2.840.114 [id number] Univers 00:00:00 00:00:00 Pat Health 350.1.13.10 it y [place]7.2.[place] [phone] [address] [facility] 2020-05-15 2020-05-15 Telephone Douglas, [facility] 1.2.840.11 4 [id number] Univers 00:00:00 00:00:00 Pat Y HEALTH 350.1.13.10 i ty of [place] 4[place]2.[place] [phone] [address] 2020-05-10 2020-05-10 Office [facility] 1.2.840.114 [id number] Univers 13:51:36 15:16:46 Visit Pat Health 350.1.13.10 it y [place].2.[place] [phone] [facility] [address] Office Building 2020-05-10 2020-05-10 Outpatient R SIMONA, [facility] [id number] Univers 14:00:00 14:00:00 PAT ity [facility] 2020-05-09 2020-05-09 Telephone Simona [facility] ..840.11 4 [id number] Univers 00:00:00 00:00:00 Pat Scott HEALTH 350.1.13.10 i ty of [place] 4[place]2.7.2.[place] [phone] [place] [address] [address] 2020-05-03 2020-05-03 Outpatient R [facility] 127 [id number] Univers 13:20:00 13:20:00 PAT [facility] 2020-05-03 2020-05-03 [facility] 1027 [id number] Univers 10:17:00 10:17:00 AGUSTÍN [facility] 2020-04-30 2020-04-30 Refill [facility] 1.2.840.114 [id number] Univers 00:00:00 00:00:00 Esther A Health 350.1.13.10 i ty of [place] 4.2.7.2.686 Anton as Professio [phone] Wi dical nal [address] Office Building One 2020-04-25 2020-04-25 Refill Jeremy [facility] 1.2.626.439 [id number] [id number] Univers 00:00:00 00:00:00 Faby Cheek 350.1.13.10 i ty of [place] 4[place]2.7.2.[place] [phone] Wi dical nal [address] Building 2020-04-11 2020-04-11 Prep For Lui Wu [facility] 1.2.840.114 [id number] Univers 00:00:00 00:00:00 Surgery MULTISPEC 350.1.13.10 ity of [place]2.7.2.[place] [phone] [facility] AND KAY [address] [facility] 2020-04-10 2020-04-10 Office Steve Cowart [facility] 1.2.84 0.114 [id number] Univers 13:08:03 14:45:41 Visit Agustín Eden 350.1.13. 10 ity of [facility] 4.2.7.2.[place] [phone] [facility] AND KAY [address] [place] [facility] 2020-04-10 2020-04-10 Outpatient R KAREY [facility] [id number] Univers 13:30:00 13:30:00 AGUSTÍN ity of [facility] 2020-04-10 2020-04-10 Refill [facility] 1.2.201.571 [id number] Univers 00:00:00 00:00:00 Faby Cheek 350.1.13.10 i ty of [place] 4[place]2.7.2.[place] [phone] [facility] 134 [facility] 2020-04-10 2020-04-10 Orders Doctor LINDA 1.2.840.114 [id number] Univers 00:00:00 00:00:00 Only Unassigned, MILENA 350.1.13.10 [facility] 4.2.7.2.686 Anton as [phone] [facility] [address] 2020-04-01 2020-04-01 Refyinka Luna [facility] 1.2.580.809 [id number] 0722 Univers 00:00:00 00:00:00 Faby Cheek 350.1.13.10 i ty of [place] 4.2.7.2.[place] [phone] Wi dical nal 134 [facility] 2020-03-27 2020-03-27 Telephone [facility] 1.2.840.114 [id number] [id number] Univers 00:00:00 00:00:00 Wondiful A Health 350.1.13.10 ity of [place] 4.2.7.2.686 Anton as Professio [phone] [facility] [address] Office Building One 2020-03-26 2020-03-26 Telephone [facility] 1.2.840.114 [id number] [id number] Univers 00:00:00 00:00:00 Wondiful A Health 350.1.13.10 ity of [place] 4.2.7.2.686 Anton as Professio [phone] [address] 2020-03-20 2020-03-20 Outpatient R NABOR [facility] [id number] Univers 16:20:00 16:20:00 KAREN ity [facility] 2020-03-16 2020-03-16 Refill [facility] 1.2.335.999 [id number] Univers 00:00:00 00:00:00 Faby Cheek 350.1.13.10 i ty of [place].2.[place] [phone] [address] 2020-03-15 2020-03-15 Outpatient R [facility] [id number] [facility] 14:30:00 14:30:00 [facility] 2020-03-15 2020-03-15 [facility] 1.2.735.435 [id number] 3697 [facility] 00:00:00 00:00:00 Faby Cheek 350.1.13.10 i ty of [place] 4.2.7.2.[place] [phone] [address] 2020-03-07 2020-03-07 Telephone [facility] ..840.114 758 [id number] [facility] 00:00:00 00:00:00 Wondiful A Health 350.1.13.10 ity of [place] 4.2.7.2.686 Anton as Professio [phone] [address] 2020-02-02 2020-02-02 Telemedici JarvisCROWNPOINT [facility] 1.2.840.114 [id number] Univers 08:12:15 15:32:51 ne Visit Pat Cheek 350.1.13.10 ity of [place] 4.2.7.2.[place] [phone] [address] 2020-02-02 2020-02-02 Outpatient R SIMONA [facility] [id number] Univers 14:30:00 14:30:00 PAT ity of [facility] 2020-01-30 2020-01-30 Outpatient R ADAM BRISENO [facility] [id number] Univers 15:00:00 15:00:00 ity of [facility] 2020-01-30 2020-01-30 Telemedici Faby Luna [facility] 1.2.840 .114 [id number] Univers 08:40:27 14:57:35 ne Visit Adam Briseno Adia 350.1.13.10 ity of [place] 4.2.7.2.[place] [phone] [address] 2020-01-20 2020-01-20 Telephone Adam Briseno [facility] 1.2.840.114 [id number] Univers 00:00:00 00:00:00 Cam [place] 350.1.13.10 i ty of [place] 4[place].7.2.[place] [phone] Wi dic[address] 2020-01-18 2020-01-18 Telephone Adam Briseno [facility] 1.2.840.114 [id number] Univers 00:00:00 00:00:00 Cam [place] 350.1.13.10 i ty of [place] 4.2.7.2.[place] [phone] [address] 2020-01-18 2020-01-18 Refill Adam Briseno [facility] 1.2.760.892 [id number] [id number] Univers 00:00:00 00:00:00 Cam [place] 350.1.13.10 i ty of [place] 4.2.7.2.[place] [phone] [address] 2020-01-17 2020-01-17 Orders LINDA [place] 1.2.466.061 [id number] Univers 00:00:00 00:00:00 Only Fabyyana ABBOTT 350.1.13.10 it y of [facility] 4.2.7.2.686 Anton as [phone] [address] 2020-01-16 2020-01-16 Outpatient R [facility] [id number] [id number] Univers 16:15:00 16:15:00 FABY [facility] 2020-01-16 2020-01-16 Telemedici [facility]CR[facility] 1.2.840.114 [id number] Univers 14:56:15 15:11:15 ne Visit Faby Ad[place] 350.1.13.10 ity of [place] 4[place]2.[place].2.[place] [phone] [address] 2020-01-16 2020-01-16 Telephone [facility]CR[facility] 1.2.840.114 [id number] [facility] 00:00:00 00:00:00 Wonkhoamily Nielsen [place] [id number] [id number] [phone] [address] 2020-01-05 2020-01-05 [facility] [id number] Univers 13:45:00 13:45:00 FABY [facility] 2020-01-05 2020-01-05 [facility] 1.2.840.114 [id number] Univers 13:29:36 13:44:36 ne Visit Faby Cheek [id number] [id number] [phone] [address] 2020-01-05 2020-01-05 [facility]phone [facility] 1.2.840.114 [id number] Univers 00:00:00 00:00:00 Faby Cheek [id number] i [id number] [phone] [address] 2019-12-22 2019-12-22 Outpatient R [facility] [id number] Univers 13:54:06 23:59:00 FABY keita [facility] 2019-12-22 2019-12-22 [facility] 1.2.840.114 [id number] Univers 13:54:00 23:59:00 Encounter Faby [place] [id number] [id number] [phone] [facility] [address] 2019-12-22 2019-12-22 Office [facility] 1.2.840.114 [id number] Univers 15:13:31 16:58:13 Visit Esther Roblero [id number] i ty of [place] [id number] [place] Professio [phone] Wi dical nal [address] [facility] 2019-12-22 2019-12-22 Orders Doctor LINDA 1.2.840.114 [id number] Univers 00:00:00 00:00:00 Only Unassigned, MILENA [id number] ity of [place] [facility] [id number] [place] as [phone] [facility] [address] 2019-12-20 2019-12-20 Telephone Adam Briseno [facility] 1.2.840.114 [id number] Univers 00:00:00 00:00:00 Cam Adia 350.1.13.10 [place] [phone] Wi dical nal 134 [facility] 2019-12-14 2019-12-14 [facility] [id number] Univers 12:43:56 23:59:00 FABY ity of [facility] 2019-12-14 2019-12-14 [facility] 1.2.840.114 [id number] Univers 12:43:00 23:59:00 Encounter Faby Adia [id number] [place] [phone] [facility] [address] 2019-12-14 2019-12-14 Office [facility] [id number] Univers 11:22:45 12:07:03 Visit Faby Adia 350.1.13.10 [place] [phone] Wi dical nal 134 [facility] 2019-12-14 2019-12-14 [facility] 1.2.503.805 [id number] Univers 00:00:00 00:00:00 Management Faby Cheek [id number] [place] [phone] Wi dicma nal 134 [facility] 2019-12-13 2019-12-13 Telephone Jeremy [facility] 1.2.840.114 [id number] Univers 00:00:00 00:00:00 Faby Cheek 350.1.13.10 [place] [phone] Wi dical nal 134 [facility] 2019-12-08 2019-12-08 Office Adam Briseno [facility] [id number] Univers 12:55:59 14:01:07 Visit Josh Cheek 350.1.13.10 [place] [phone] [facility] 2019-12-08 2019-12-08 Outpatient R ADAM BRISENO [facility] [id number] Univers 13:00:00 13:00:00 ity of [facility] 2019-12-06 2019-12-06 Telephone Mayekl [facility] [id number] Univers 00:00:00 00:00:00 Esther Roblero 350.1.13.10 i ty of [place] 4.2.7.2.686 [place] Professio [phone] [facility] [address] [facility] 2019-12-01 2019-12-01 Pipeman 2, Adc Lab [facility] 1.2.840.114 [id number] Univers 13:54:38 14:09:38 Visit Esther Brar 350.1.13.10 it[place] [phone] [facility] [address] [facility] 2019-12-01 2019-12-01 Outpatient R JEREMY [facility] [id number] Univers 13:00:00 13:45:16 FABY ity of [facility] 2019-12-01 2019-12-01 Office [facility] [id number] Univers 12:55:31 13:45:16 Visit Faby Adia 350.1.13.10 [place] [phone] Wi dicma nal 134 [facility] 2019-12-01 2019-12-01 Orders Doctor LINDA 1.2.840.114 [id number] Univers 00:00:00 00:00:00 Only Unassigned, MILENA 350.1.13.10 ity of [place] [facility] 4.2.7.2.686 [place] as [phone] [facility] [address] 2019-11-30 2019-11-30 [facility] 1.2.840.114 [id number] Univers 12:34:27 13:09:34 Visit Esther Nielsen [facility] 350.1.13.10 i ty of [place] 4.2.7.2.686 [place] Profess[place] [phone] [facility] [address] [facility] 2019-11-26 2019-11-26 [facility] 1.2.840.114 [id number] Univers 00:00:00 00:00:00 Esther A [facility] 350.1.13.10 i ty of [place] 4.2.7.2.686 [place] Professio [phone] [facility] [address] [place] [facility] 2019-11-11 2019-11-11 [facility] 1.2.840.114 [id number] [facility] 14:10:00 23:59:00 Encounter Faby Adia 350.1.13.10 it[place] of [place] [phone] [facility] [address] 2019-11-10 2019-11-10 Telephone [facility] 1.2.840.114 [id number] Univers 00:00:00 00:00:00 Fabyyana Cheek 350.1.13.10 i [place] [phone] Wi dical nal 134 [facility] 2019-11-08 2019-11-08 Pipeman 2, Adc Lab [facility] 1.2.840.114 [id number] Univers 10:31:32 10:46:32 Visit Faby Luna 350.1.13.10 [place] [phone] [facility] [address] [facility] 2019-11-08 2019-11-08 Office Jeremy [facility] 1.2.131.110 [id number] [facility] 09:44:45 10:14:45 Visit Faby Cheek 350.1.13.10 i [place] [phone] [facility] 134 [facility] 2019-11-08 2019-11-08 Orders Doctor LINDA 1.2.840.114 [id number] Univers 00:00:00 00:00:00 Only Unassigned, MILENA 350.1.13.10 ity of [place] [facility] 4.2.7.2.686 [place] as [phone] [address] 2019-11-08 2019-11-08 [facility] 1.2.840.114 [id number] Univers 00:00:00 00:00:00 Faby Cheek 350.1.13.10 i [place] [phone] [address] 2019-11-08 2019-11-08 [facility] 1.2.840.114 [id number] Univers 00:00:00 00:00:00 Faby Cheek 350.1.13.10 i [place] [phone] [facility] 134 [facility] 2019-06-10 2019-06-10 Orders Doctor LINDA 1.2.840.114 [id number] Univers 00:00:00 00:00:00 Only Unassigned, MILENA 350.1.13.10 ity of [place] [facility] 4.2.7.2.686 [place] as [phone] [address] 2019-06-09 2019-06-09 [facility] 1.2.449.876 [id number] Univers 00:00:00 00:00:00 Esther Nielsen Health 350.1.13.10 i ty of [place] 4.2.7.2.686 [place] Profess[place] [phone] [address] [facility] 2019-05-27 2019-05-27 Telephone [facility] [id number] Univers 00:00:00 00:00:00 Esther Nielsen [facility] 350.1.13.10 i ty of [place] 4.2.7.2.686 [place] Professio [phone] [address] One 2019-05-24 2019-05-24 [facility] 1.2.840.114 [id number] Univers 13:00:44 13:20:44 Visit Esther Nielsen [facility] 350.1.13.10 i ty of [place] 4.2.7.2.686 [place] Professio [phone] [address] One 2019-05-24 2019-05-24 Orders Doctor LINDA 1.2.840.114 [id number] Univers 00:00:00 00:00:00 Only Unassigned, MILENA 350.1.13.10 ity of [place] [facility] 4.2.7.2.686 [place] as [phone] [address] 2019-05-07 2019-05-07 Refill [facility] 1.2.840.114 [id number] Univers 00:00:00 00:00:00 Esther Nielsen [facility] 350.1.13.10 i ty of [place] 4.2.7.2.686 [place] Professio [phone] [address] [facility] Results Test Description Test Time Test Comments Results Result Comments Source urinalysis, microscopic 2022-11-14 17:57:00 Test Item Value Reference Range Interpretation Comme nts Result: (test code = Result:) 0-2 RBC, 0 WBC, no bacteria [facility] UrologyUrinalysis macro (dipstick) panel - [id number] 16:04:00 Test Item Value Reference Range Interpretation Comments leukocytes (test code negative neg = leukocytes) urobilinogen (test 0.2 E.U./dL sm amt code = urobilinogen) (.5-1mg/dL) protein (test code = negative See_Comment [Autom ated protein) message] The sy stem which generated this result transmitted reference range : <=150 mg/d. The reference range was not used to interpret this result as normal/abnormal . pH (test code = pH) 6.5 4.5-8 blood (test code = trace-intact See_Comment A [Automat ed blood) message] The sy stem which generated this result transmitted reference range : <=3 RBC. The reference range was not used to interpret this result as normal/abnormal . specific gravity 1.010 1.005-1.025 (test code = specific gravity) ketone (test code = negative none ketone) bilirubin (test code negative neg = bilirubin) glucose (test code = 500 mg/dL See_Comment A [Autom ated glucose) message] The sy stem which generated this result transmitted reference range : <=130 mg/d. The reference range was not used to interpret this result as normal/abnormal . color (test code = yellow yellow color) clarity (test code = clear clear or cloudy clarity) nitrite (test code = negative neg nitrite) [facility] 12 [id number] 00:54:53 Test Item Value Reference Range Interpretation Comments Ventricular rate (test 93 code = 253) Atrial rate (test code 93 = 255) MD interval (test code 124 = 266) QRSD interval (test 80 code = 260) QT interval (test code 352 = 264) QTC interval (test code 437 = 265) P axis 1 (test code = 36 267) QRS axis 1 (test code = 48 268) T wave axis (test code 77 = 270) EKG impression (test Poor data code = 273) quality-Normal sinus rhythm-Normal ECG-In automated comparison with ECG of 27-SEP-2012 20:42,-No significant change was found- [facility] [id number] 22:33:00 Test Item Value Reference Range Interpretation Comments Sodium (test code = 134 See_Comment [Automa eugenio message] 2951-2) The system [employer] generated this result transmit eugenio reference range : 128 - 145 mEq/L. Th e reference range was not used to interpret this result as normal/abnormal . Potassium (test code = 4.3 See_Comment [Aut omated message] 1783-3) The system [employer] generated this result transmit eugenio reference range : 3.6 - 5.1 mEq/L. Th e reference range was not used to interpret this result as normal/abnormal . CO2 (test code = 2027-) 28 See_Comment [A utomated message] The system [employer] generated this result transmit eugenio reference range : 18 - 33 mEq/L. The reference range was not used to interpret this result as normal/abnormal . Chloride (test code = 103 See_Comment [Auto mated message] 5-0) The system [employer] generated this result transmit eugenio reference range : 98 - 108 mEq/L. Th e reference range was not used to interpret this result as normal/abnormal . Glucose (test code = 292 mg/dL 73-118 H 2345-7) Calcium (test code = 9.4 mg/dL 8.0-10.3 94596-1) BUN (test code = 3094-0) 14 mg/dL 7-22 Creatinine (test code = 0.8 mg/dL 0.5-0.9 2160-0) Alkaline phosphatase 56 U/L 42-141 (test code = 6768-6) ALT (test code = 1742-6) 26 U/L 10-47 AST (test code = 1920-8) 22 U/L 11-38 Total bilirubin (test 0.6 mg/dL 0.2-1.6 code = 1974-2) Albumin (test code = 3.3 g/dL 3.3-5.5 1751-7) Protein (test code = 6.6 g/dL 6.4-8.1 2885-2) Anion gap (test code = 3 See_Comment L [Aut omated message] 65698-1) The system [employer] generated this result transmit eugenio reference range : 7 - 15 mEq/L. The reference range was not used to interpret this result as normal/abnormal . A/G ratio (test code = 1.0 0.7-3.8 1759-0) Lab Interpretation (test Abnormal code = 59430-9) [facility] [id number] 22:33:00 Test Item Value Reference Range Interpretation Comments eGFR EIK-HYL-Ooyiqonowi 88 mL/min/1.73 m^2 T ree (test code = 8334) creatinin e-estimated glomerular filtration rate (Cr-eGFR) is calculated usin g the equation recomm ended in June,, by the National Kidney Foundation/[facility] Society of Nephrology Task Force on Reasse ssing the Inclusion o f Race in Diagnos ing Kidney Disease. DOI: https://doi.org /10.1 053/j.ajkd.1 .08.0 03). eGRF Interpretation see below Category Units (test code = 8337) Interpret ationG1 >=90 Normal or highG2 60-89 Mi ldly eisbnxirlY8a 45 -59 Mildly to moder ately jeurgwlfhL7w 30 -44 Moderately to severely decrea sedG4 15-29 Severely decreasedG5 <15 Kidney failure [facility] MOLECULAR [id number] 19:56:40 Test Item Value Reference Range Interpretation Comments POCT Molecular FluA (test code = Negative Negative 66596-8) POCT Molecular FluB (test code = Negative Negative 40072-4) Lab Interpretation (test code = Normal 42233-9) [facility] MOLECULAR [id number] 19:56:40 Test Item Value Reference Range Interpretation Comments POCT Molecular FluA (test code = Negative Negative 28542-6) POCT Molecular FluB (test code = Negative Negative 60656-7) Lab Interpretation (test code = Normal 81639-1) [facility] MOLECULAR [id number] 19:56:40 Test Item Value Reference Range Interpretation Comments POCT Molecular FluA (test code = Negative Negative 17011-7) POCT Molecular FluB (test code = Negative Negative 08142-0) Lab Interpretation (test code = Normal 90715-1) [facility] MOLECULAR [id number] 19:56:40 Test Item Value Reference Range Interpretation Comments POCT Molecular FluA (test code = Negative Negative 11918-7) POCT Molecular FluB (test code = Negative Negative 80579-0) Lab Interpretation (test code = Normal 43095-4) [facility] MOLECULAR [id number] 19:56:40 Test Item Value Reference Range Interpretation Comments POCT Molecular FluA (test code = Negative Negative 51862-5) POCT Molecular FluB (test code = Negative Negative 44830-7) Lab Interpretation (test code = Normal 42711-9) [facility] MOLECULAR [id number] 19:56:40 Test Item Value Reference Range Interpretation Comments POCT Molecular FluA (test code = Negative Negative 27561-7) POCT Molecular FluB (test code = Negative Negative 24292-9) Lab Interpretation (test code = Normal 14451-3) [facility] MOLECULAR [id number] 19:56:40 Test Item Value Reference Range Interpretation Comments POCT Molecular FluA (test code = Negative Negative 84826-2) POCT Molecular FluB (test code = Negative Negative 14709-4) Lab Interpretation (test code = Normal 10314-6) [facility] SARS-COV-2 ANTIGEN (BINAX NOW)2022-10-09 19:51:00 Test Item Value Reference Range Interpretation Comments POCT SARS-COV-2 ANTIGEN (test Not Detected Not Detected code = 59194-0) On board controls acceptable Yes with C Line (test code = 3574) Lab Interpretation (test code = Normal 96720-9) [facility] SARS-COV-2 ANTIGEN (BINAX NOW)2022-10-09 19:51:00 Test Item Value Reference Range Interpretation Comments POCT SARS-COV-2 ANTIGEN (test Not Detected Not Detected code = 91148-1) On board controls acceptable Yes with C Line (test code = 3574) Lab Interpretation (test code = Normal 79429-2) [facility] SARS-COV-2 ANTIGEN (BINAX NOW)2022-10-09 19:51:00 Test Item Value Reference Range Interpretation Comments POCT SARS-COV-2 ANTIGEN (test Not Detected Not Detected code = 57296-0) On board controls acceptable Yes with C Line (test code = 3574) Lab Interpretation (test code = Normal 99826-5) [facility] SARS-COV-2 ANTIGEN (BINAX NOW)2022-10-09 19:51:00 Test Item Value Reference Range Interpretation Comments POCT SARS-COV-2 ANTIGEN (test Not Detected Not Detected code = 37593-1) On board controls acceptable Yes with C Line (test code = 3574) Lab Interpretation (test code = Normal 54625-3) [facility] SARS-COV-2 ANTIGEN (BINAX NOW)2022-10-09 19:51:00 Test Item Value Reference Range Interpretation Comments POCT SARS-COV-2 ANTIGEN (test Not Detected Not Detected code = 75285-2) On board controls acceptable Yes with C Line (test code = 3574) Lab Interpretation (test code = Normal 62120-2) [facility] SARS-COV-2 ANTIGEN (BINAX NOW)2022-10-09 19:51:00 Test Item Value Reference Range Interpretation Comments POCT SARS-COV-2 ANTIGEN (test Not Detected Not Detected code = 41330-3) On board controls acceptable Yes with C Line (test code = 3574) Lab Interpretation (test code = Normal 39975-1) [facility] SARS-COV-2 ANTIGEN (BINAX NOW)2022-10-09 19:51:00 Test Item Value Reference Range Interpretation Comments POCT SARS-COV-2 ANTIGEN (test Not Detected Not Detected code = 80628-3) On board controls acceptable Yes with C Line (test code = 3574) Lab Interpretation (test code = Normal 77622-7) [facility] [id number] 00:00:00 Test Item Value Reference Range Interpretation Comments BLOOD SUGAR (test code = 448143) 354 mg/dL 65-99 A Lab Interpretation (test code = Abnormal 29535-1) [facility] URINALYSIS W SPECIFIC [id number] 17:00:00 Test Item Value Reference Range Interpretation [...] negative Negative - Negative 3258) POCT U GLU (test code = 3256) [...] POCT U APPEAR (test code = 3267) [facility] URINALYSIS W SPECIFIC [id number] 17:00:00 Test Item Value Reference Range Interpretation [...] negative Negative - Negative 3258) POCT U GLU (test code = 3256) [...] POCT U APPEAR (test code = 3267) [facility] URINALYSIS W SPECIFIC [id number] 17:00:00 Test Item Value Reference Range Interpretation [...] negative Negative - Negative 3258) POCT U GLU (test code = 3256) [...] POCT U APPEAR (test code = 3267) [facility] [id number] 14:51:00 Test Item Value Reference Range Interpretation Comments BLOOD SUGAR (test code = 282595) 226 mg/dL 65-99 A Lab Interpretation (test code = Abnormal 79887-6) Reema Mar
[2022-11-25 18:15] LABS: Urine Blood Negative (Negative); Urine Glucose Negative (Negative); Urine Protein Trace (Negative); Urine Specific Gravity >=1.030 (1.005-1.030)
[2022-11-25 18:16] LABS: Absolute Lymphocytes (CBC) 1.6 K/uL (0.7-4.9); Hematocrit 40.5 % (36.0-45.0); Lymphocytes % 34.8 % (15.3-44.8); MCV 86.8 fL (80-100); MPV 8.1 fL (7.6-11.3); RBC Red Blood Cell Count 4.67 M/uL (3.86-4.86)
[2022-11-25 18:24] LABS: Protime INR 1.04
[2022-11-25 18:29] LABS: Urine Bacteria None Seen /HPF (<20); Urine Mucus Slight /HPF (None Seen); Urine RBC <5 /HPF (None Seen)
[2022-11-25 18:36] LABS: ALT/SGPT 23 U/L (13-56); AST/SGOT 17 U/L (15-37); Albumin 3.1 g/dL (3.4-5.0); Alkaline Phosphatase 59 U/L (45-117); BUN Blood Urea Nitrogen 13 mg/dL (7-18); Bicarbonate 25 mmol/L (21-32); Bilirubin Direct 0.1 mg/dL (0-0.2); Bilirubin Total 0.5 mg/dL (0.2-1.0); Glomerular Filtration Rate 97 ml/min (=/>90); Glucose Level 206 mg/dL (74-106); Potassium 3.1 mmol/L (3.5-5.1); Protein, Total 6.6 g/dL (6.4-8.2); Sodium Level 139 mmol/L (136-145); Troponin High Sensitivity 3.3 pg/mL (<58.9)
[2022-11-25 18:36] LABS: Barbiturates NEGATIVE (NEGATIVE); Benzodiazepines NEGATIVE (NEGATIVE); Cocaine NEGATIVE (NEGATIVE); METHAMPHETAM NEGATIVE (NEGATIVE); Methadone NEGATIVE (NEGATIVE); Opiates NEGATIVE (NEGATIVE); Phencyclidine NEGATIVE (NEGATIVE); THC Cannibis NEGATIVE (NEGATIVE)
--- NOTE | 2022-11-25 18:36 | RAD REPORT ---
EXAM DESCRIPTION: CT - Head Brain Wo Cont - 11/25/2022 6:30 pm CLINICAL HISTORY: AMS Headache, drowsiness COMPARISON: Head Brain Wo Cont dated 05/31/2022; Head Brain Wo Cont dated 02/07/2021 TECHNIQUE: All CT scans are performed using dose optimization technique as appropriate and may inclu de automated exposure control or mA/KV adjustment according to patient size. FINDINGS: No intracranial hemorrhage, hydrocephalus or extra-axial fluid collection.No areas of brai n edema or evidence of midline shift. The paranasal sinuses and mastoids are clear. The calvarium is intact. IMPRESSION: No acute intracranial abnormality.
[2022-11-25] MEDS ORDERED: NA CHLORIDE 0.9% 1,000 ML ONE (18:49)
[2022-11-25] MEDS ORDERED: HYDROCORTISONE SUC 100 MG INJ ONE (21:42)
--- NOTE | 2022-11-25 22:18 | ER ---
Nurse's Notes Formerly [facility] Name: Sadia Mcpherson Age: 52 yrs Sex: Female : 1970 Arrival Date: 11/25/2022 Time: 17:51 Bed 7 Private MD: Diagnosis: Altered mental status, unspecified Presentation: 11/25 17:54 Chief complaint: EMS states: toned out to patient home for unresponsive. EMS reports ld1 giving D10 prior to arrival. Upon arrival pt had snoring respirations. Responsive to painful stimuli. Coronavirus screen: At this time, the client does not indicate any symptoms associated with coronavirus-19. Ebola Screen: No symptoms or risks identified at this time. Initial Sepsis Screen: Does the patient meet any 2 criteria? No. Patient's initial sepsis screen is negative. Does the patient have a suspected source of infection? No. Patient's initial sepsis screen is negative. Risk Assessment: Do you want to hurt yourself or someone else? Patient reports no desire to harm self or others. Onset of symptoms was November 25, 2022. 17:54 Method Of Arrival: EMS: [facility] ld1 17:54 Acuity: JAYLEN 2 ld1 17:59 Chief complaint:. Initial Sepsis Screen: Does the patient meet any 2 criteria? Does the ld1 patient have a suspected source of infection?. Triage Assessment: 17:57 General: Appears in no apparent distress. Behavior is responsive to painful stimuli. ld1 Pain: Unable to use pain scale. Patient is disoriented. Patient is unresponsive. EENT: No signs and/or symptoms were reported regarding the EENT system. Neuro: Level of Consciousness is confused, unresponsive, Oriented to. 18:00 Neuro: Level of Consciousness is Oriented to none. Cardiovascular: Capillary refill < 3 ld1 seconds Patient's skin is warm and dry. Rhythm is sinus tachycardia. Respiratory: Airway is patent Respiratory effort is even, unlabored, Respiratory pattern is snoring. GI: Abdomen is round. : No signs and/or symptoms were reported regarding the genitourinary system. Derm: No signs and/or symptoms reported regarding the dermatologic system. Musculoskeletal: No signs and/or symptoms reported regarding the musculoskeletal system. Historical: - Allergies: 17:57 Lamictal; ld1 17:57 Sulfa (Sulfonamide Antibiotics); ld1 17:57 tobramycin; ld1 17:57 Wellbutrin; ld1 - Home Meds: 20:34 aspirin 81 mg oral chew [Active]; carvedilol 12.5 mg oral tab [Active]; clonazepam jb4 0.125 mg Oral TbDi [Active]; furosemide 20 mg Oral tab [Active]; hydrocortisone 10 mg Oral tab [Active]; hydrocortisone 5 mg Oral tab [Active]; ibuprofen 800 mg Oral tab [Active]; Jardiance 10 mg oral tab [Active]; Lantus Solostar U-100 Insulin subcutaneous [Active]; Synthroid 137 mcg Oral tab [Active]; metformin 1,000 mg Oral tab [Active]; mupirocin 2 % topical oint [Active]; Novolog Flexpen U-100 Insulin aspart subcutaneous [Active]; quetiapine fumarate [Active]; simvastatin 20 mg Oral tab [Active]; trazodone 50 mg Oral tab [Active]; valacyclovir 500 mg Oral tab [Active]; - PMHx: 17:57 adrenal insuff.; Hypertension; Depression; Hypothyroidism; IDDM; ld1 - PSHx: 17:57 Lithotripsy; ld1 - Immunization history:: Adult Immunizations up to date, Client reports receiving the 2nd dose of the Covid vaccine. - Social history:: Smoking status: Patient denies any tobacco usage or history of. Patient/guardian denies using alcohol, Smoking status: . Screenin:01 [facility] ED Fall Risk Assessment (Adult) History of falling in the last 3 months, ld1 including since admission No falls in past 3 months (0 pts). Abuse screen: Denies threats or abuse. Denies injuries from another. Nutritional screening: No deficits noted. Tuberculosis screening: No symptoms or risk factors identified. Assessment: 18:01 Reassessment: See triage assessment. ld1 19:10 Reassessment: Pt is resting in bed with eyes closed, respirations are even and jb4 unlabored with no s/s of pain or distress noted. Family remains at the bedside. Continues to have snoring respirations. 19:58 Reassessment: Patient appears in no apparent distress at this time. No changes from jb4 previously documented assessment. Patient and/or family updated on plan of care and expected duration. Pain level reassessed. 21:00 Reassessment: Patient appears in no apparent distress at this time. No changes from jb4 previously documented assessment. Patient and/or family updated on plan of care and expected duration. Pain level reassessed. 22:00 Reassessment: Pt remains lethargic, is A\T\Ox1 Lethargic, awakens to verba stimuli. jb4 Respirations remain even and unlabored. 23:00 Reassessment: Patient appears in no apparent distress at this time. No changes from jb4 previously documented assessment. Patient and/or family updated on plan of care and expected duration. Pain level reassessed. 11/26 00:00 Reassessment: Pt resting in bed with eyes closed, respirations are even and unlabored jb4 with no s/s of pain or distress noted. 01:30 Reassessment: Pt is now awake and alert x4. Provider is at the bedside. Respirations jb4 remain even and unlabored. Vital Signs: 11/25 17:54 BP 145 / 97; Pulse 105; Resp 26; Temp 97.5(A); Pulse Ox 98% on R/A; Weight 105 kg; ld1 Height 5 ft. 6 in. (167.64 cm); Pain 0/10; 20:02 BP 130 / 106; Pulse 102; Resp 18; Pulse Ox 97% on R/A; jb4 21:30 BP 131 / 79; Pulse 107; Resp 20; Pulse Ox 95% on R/A; jb4 22:30 BP 106 / 63; Pulse 98; Resp 18; Pulse Ox 91% on R/A; jb4 23:30 BP 98 / 62; Pulse 87; Resp 15; Pulse Ox 91% on R/A; jb4 11/26 00:30 BP 141 / 82; Pulse 101; Resp 95; Pulse Ox 17% on R/A; jb4 01:30 BP 154 / 91; Pulse 109; Resp 14; Pulse Ox 97% on R/A; jb4 11/25 17:54 Body Mass Index 37.36 (105.00 kg, 167.64 cm) ld1 ED Course: 11/25 17:51 Patient arrived in ED. kb3 17:54 Lakshmi Pickering, SILVIA is Primary Nurse. ld1 17:57 Triage completed. ld1 17:58 Karl Headley MD is Attending Physician. rn 18:00 Arm band placed on right wrist. ld1 18:01 Patient has correct armband on for positive identification. Placed in gown. Bed in low ld1 position. Call light in reach. Side rails up X2. spray technician on. Pulse ox on. NIBP on. Noise minimized. Warm blanket given. 18:01 Simpson cath inserted, using sterile technique, 16 Fr., by me, balloon inflated, returned ld1 clear yellow urine. Patient tolerated well. Maintain EMS IV. Dressing intact. Good blood return noted. Site clean \T\ dry. Gauge \T\ site: 20g LFA. 18:03 Jayesh Marcial PA is PHCP. rn 18:05 Initial lab(s) drawn, by me, sent to lab. aa5 18:22 Urine Drug Screen Sent. ld1 18:22 Urine Microscopic Only Sent. ld1 19:22 Primary Nurse role handed off by Lakshmi Pickering, SILVIA mw2 19:58 Vijay Bustamante, SILVIA is Primary Nurse. jb4 21:15 Jayesh Agarwal MD is Attending Physician. cp 22:30 initiated a transfer with Kathryn Jo from [facility] Transfer [facility]. mw2 23:14 SARS RAPID Sent. lg3 23:15 Connected Jayesh MIRAMONTES with the Doctor from [facility]. mw2 11/26 00:59 administrative approval given by Kathryn Jo/ patient has been accepted to [address] to bed 368/ Dr. Hinds accepted the patient in transfer/report to be called to [phone]. 01:45 [facility] ETA 3 hours. mw2 03:46 No provider procedures requiring assistance completed. Patient transferred, IV remains jb4 in place. intact, No redness/swelling at site. Administered Medications: 11/25 17:40 Drug: NARcan (naloxone) 0.4 mg Route: IVP; Site: right forearm; ld1 17:45 Drug: NS 0.9% 1000 ml Route: IV; Rate: 1 bolus; Site: left forearm; ld1 17:50 Drug: NARcan (naloxone) 0.4 mg Route: IVP; Site: left forearm; ld1 18:48 Drug: NS 0.9% 1000 ml Route: IV; Rate: 1000 ml; Site: left upper arm; ld1 21:45 Drug: Solu-CORTEF (hyrdoCORTISONE) 100 mg Route: IVP; Site: left upper arm; jb4 11/26 02:08 Not Given (Patient Refused): Meclizine 25 mg PO once jb4 02:50 Drug: NS 0.9% 1000 ml Route: IV; Rate: 100 ml/hr; Site: left upper arm; jb4 Medication: 03:46 VIS not applicable for this client. jb4 Outcome: 11/25 22:17 ER care complete, transfer ordered by . maria elena 11/26 03:46 Transferred by ground EMS to [facility], Transfer form completed. jb4 Condition: stable Instructed on the need for transfer, Demonstrated understanding of instructions. 03:46 Patient left the ED. jb4 Signatures: Karl Headley MD MD rn Radha Hanson, RN RN aa5 Jayesh Marcial PA PA cp Bryson, James, RN RN jb4 Natalie Roque mw2 Sloane Boyle RN RN lg3 Lakshmi Pickering RN RN ld1 Deysi Loving, RN RN kb3 Corrections: (The following items were deleted from the chart) 11/25 20:01 19:10 Reassessment: Pt is resting in bed with eyes closed, respirations are even and jb4 unlabored with no s/s of pain or distress noted. Family remains at the bedside. jb4 20:01 19:58 Reassessment: Patient appears in no apparent distress at this time. No changes jb4 from previously documented assessment. Patient and/or family updated on plan of care and expected duration. Pain level reassessed. jb4 20:42 20:34 Home Meds: hydrocortisone 10 mg Oral tab 2 tabs once daily; jb4 jb4
--- NOTE | 2022-11-25 22:18 | EDPHYS ---
Physician Documentation [facility] Name: Sadia Mcpherson Age: 52 yrs Sex: Female : 1970 Arrival Date: 11/25/2022 Time: 17:51 Bed 7 Private MD: ED Physician Jayesh Agarwal HPI: 11/25 18:05 This 52 yrs old Female presents to ER via EMS with complaints of Altered Mental Status. cp 18:05 The patient presents with decreased responsiveness. Onset: The symptoms/episode cp began/occurred today, unknown time. 18:05 Possible causes: low blood sugar, the patient uses insulin. Associated signs and cp symptoms: Pertinent negatives: agitation, fever. Current symptoms: In the emergency department the patient's symptoms are unchanged from the initial presentation, despite EMS interventions, patient given bolus of D10 after blood glucose measurement of 70. Patient's baseline: Neuro: alert and fully oriented, Motor: no deficits, Ambulation: walks without assistance, Speech: normal. Patient brought to ED by EMS after being called to home by who reportedly found patient unresponsive on bed. EMS reports upon their arrival patient was responsive to sternal rub. Blood glucose was checked and initially 80. EMS reports rechecking blood glucose en route and measuring 70. Patient given bolus D10. Historical: - Allergies: 17:57 Lamictal; ld1 17:57 Sulfa (Sulfonamide Antibiotics); ld1 17:57 tobramycin; ld1 17:57 Wellbutrin; ld1 - Home Meds: 20:34 aspirin 81 mg oral chew [Active]; carvedilol 12.5 mg oral tab [Active]; clonazepam jb4 0.125 mg Oral TbDi [Active]; furosemide 20 mg Oral tab [Active]; hydrocortisone 10 mg Oral tab [Active]; hydrocortisone 5 mg Oral tab [Active]; ibuprofen 800 mg Oral tab [Active]; Jardiance 10 mg oral tab [Active]; Lantus Solostar U-100 Insulin subcutaneous [Active]; Synthroid 137 mcg Oral tab [Active]; metformin 1,000 mg Oral tab [Active]; mupirocin 2 % topical oint [Active]; Novolog Flexpen U-100 Insulin aspart subcutaneous [Active]; quetiapine fumarate [Active]; simvastatin 20 mg Oral tab [Active]; trazodone 50 mg Oral tab [Active]; valacyclovir 500 mg Oral tab [Active]; - PMHx: 17:57 adrenal insuff.; Hypertension; Depression; Hypothyroidism; IDDM; ld1 - PSHx: 17:57 Lithotripsy; ld1 - Immunization history:: Adult Immunizations up to date, Client reports receiving the 2nd dose of the Covid vaccine. - Social history:: Smoking status: Patient denies any tobacco usage or history of. Patient/guardian denies using alcohol, Smoking status: . ROS: 18:10 Constitutional: Negative for fever, poor PO intake. cp 18:10 Neuro: Positive for altered mental status. cp 18:10 Unable to obtain ROS due to altered mental status. Exam: 18:15 Constitutional: The patient appears in no acute distress, non-diaphoretic, non-toxic, cp well developed, well nourished, obese. 18:15 Head/Face: Normocephalic, atraumatic. cp 18:15 Eyes: Pupils: equal, round, and reactive to light and accomodation, Conjunctiva: normal, no exudate, no injection, Sclera: no appreciated abnormality, Lids and lashes: appear normal, bilaterally. 18:15 ENT: External ear(s): are unremarkable, Ear canal(s): are normal, clear, TM's: dullness, bilaterally, Nose: is normal, Mouth: Lips: dry, Oral mucosa: dry, Posterior pharynx: Airway: no evidence of obstruction, patent, erythema, is not appreciated, exudate, is not appreciated. 18:15 Neck: ROM/movement: pain, is not appreciated, limited range of motion, is not appreciated, Meningeal signs: are not present, nuchal rigidity, is not appreciated. 18:15 Chest/axilla: Inspection: normal. 18:15 Cardiovascular: Rate: tachycardic, Rhythm: regular, Edema: is not appreciated, JVD: is not appreciated. 18:15 Respiratory: the patient does not display signs of respiratory distress, Respirations: normal, no use of accessory muscles, no retractions, labored breathing, is not present, Breath sounds: are clear throughout, no decreased breath sounds, no stridor, no wheezing. 18:15 Abdomen/GI: Inspection: obese Bowel sounds: active, all quadrants, Palpation: abdomen is soft and non-tender, in all quadrants. 18:15 Musculoskeletal/extremity: Exam is negative for decreased range of motion, deformity, injury. 18:15 Neuro: Orientation: to person, Mentation: somnolent, responsive to pain, Motor: moves all fours. 18:20 ECG was reviewed by the Attending Physician. Vital Signs: 17:54 BP 145 / 97; Pulse 105; Resp 26; Temp 97.5(A); Pulse Ox 98% on R/A; Weight 105 kg; ld1 Height 5 ft. 6 in. (167.64 cm); Pain 0/10; 20:02 BP 130 / 106; Pulse 102; Resp 18; Pulse Ox 97% on R/A; jb4 21:30 BP 131 / 79; Pulse 107; Resp 20; Pulse Ox 95% on R/A; jb4 22:30 BP 106 / 63; Pulse 98; Resp 18; Pulse Ox 91% on R/A; jb4 23:30 BP 98 / 62; Pulse 87; Resp 15; Pulse Ox 91% on R/A; jb4 11/26 00:30 BP 141 / 82; Pulse 101; Resp 95; Pulse Ox 17% on R/A; jb4 01:30 BP 154 / 91; Pulse 109; Resp 14; Pulse Ox 97% on R/A; jb4 11/25 17:54 Body Mass Index 37.36 (105.00 kg, 167.64 cm) ld1 MDM: 11/25 17:59 Patient medically screened. rn 18:00 Differential Diagnosis: CVA, electrolyte abnormality, alcohol intoxication, cp hypoglycemia, intracranial bleed, overdose, pneumonia, seizure, sepsis, TIA, UTI, volume depletion. 20:30 Data reviewed: vital signs, nurses notes, lab test result(s), EKG, radiologic studies, cp CT scan. 20:30 I considered the following discharge prescriptions or medication management in the emergency department Medications were administered in the Emergency Department. See MAR. Historians other than the Patient: Spouse/Significant Other: spoke with who reported finding patient in bed this afternoon after returning home from work at about 1630. Reported leaving home for work this morning about 0500 and speaking with patient on phone about 1000 with her being normal. Patient has had similar episodes in the past of being unresponsive with no diagnosis. 20:30 Care significantly affected by the following chronic conditions: Diabetes, cp Hypertension, adrenal insufficiency. 20:30 Counseling: I had a detailed discussion with the patient and/or guardian regarding: the cp historical points, exam findings, and any diagnostic results supporting the discharge/admit diagnosis, lab results, radiology results, the need to transfer to another facility, due to inability to admit at this facility at this time as instructed by administration. 23:32 ED course: poison control consulted concerning possible Seroquel overdose. Spoke with maria elena Obrien at [facility]. Symptomatic treatment,give magnesium if abnormal VS and pro-longed QT. 11/26 00:05 ED course: VS noted. Discussed patient with DR Hinds \T\[facility] in [facility], will accept cp patient as transfer. 11/25 18:03 Order name: Acetaminophen rn 11/25 18:03 Order name: Basic Metabolic Panel rn 11/25 18:03 Order name: CBC with Diff rn 11/25 18:03 Order name: ETOH Level rn 11/25 18:03 Order name: Hepatic Function rn 11/25 18:03 Order name: PT-INR rn 11/25 18:03 Order name: Ptt, Activated rn 11/25 18:03 Order name: Salicylate rn 11/25 18:03 Order name: Urine Drug Screen rn 11/25 18:03 Order name: Troponin High Sensitivity rn 11/25 18:06 Order name: Glucose, Ancillary Testing; Complete Time: 18:07 EDMS 11/25 18:57 Interpretation: GLUC,ANCIL 221; Reviewed. 11/25 18:06 Order name: Urine Microscopic Only 11/25 18:06 Order name: Lactate w/ 2H reflex if indic. 11/25 18:15 Order name: Urine Dipstick-Ancillary; Complete Time: 18:44 EDMS 11/25 18:24 Order name: Protime (+INR); Complete Time: 18:44 EDMS 11/25 18:24 Order name: PTT, Activated Partial Thromb; Complete Time: 18:44 EDMS 11/25 18:30 Order name: Urine Microscopic Only; Complete Time: 18:44 EDMS 11/25 18:35 Order name: Alcohol Serum/Plasma; Complete Time: 18:44 EDMS 11/25 18:36 Order name: Urine Drug Screen; Complete Time: 18:44 EDMS 11/25 18:36 Order name: Basic Metabolic Panel; Complete Time: 18:44 EDMS 02 18:57 Interpretation: Normal except: K 3.1; GLUC 206. cp 11/25 18:36 Order name: Liver (Hepatic) Function; Complete Time: 18:44 EDMS 02 18:36 Order name: Troponin High Sensitivity; Complete Time: 18:44 EDMS 02 18:57 Interpretation: Troponin HS 3.3; Reviewed. 11/25 18:37 Order name: Acetaminophen Level; Complete Time: 18:44 EDMS 02 18:43 Order name: CBC with Automated Diff; Complete Time: 18:44 EDMS 02 18:58 Order name: Salicylates Level; Complete Time: 19:09 EDMS 02 19:21 Order name: Lactate w/ 2H reflex if indic.; Complete Time: 20:20 EDMS 02 20:21 Interpretation: Reviewed. cp 11/25 20:15 Order name: ABG 11/25 22:33 Order name: SARS RAPID mw2 11/25 23:35 Order name: SARS-COV-2 Antigen Rapid; Complete Time: 00:03 EDMS 11/25 23:50 Order name: ABG Arterial Blood Gas; Complete Time: 00:03 EDMS 11/25 18:03 Order name: EKG; Complete Time: 18:04 11/25 18:03 Order name: EKG - Nurse/Tech; Complete Time: 18:22 11/25 18:03 Order name: IV Saline Lock; Complete Time: 18:04 11/25 18:03 Order name: Labs collected and sent; Complete Time: 18:09 11/25 18:03 Order name: Urine Dipstick-Ancillary (obtain specimen); Complete Time: 18:22 rn 11/25 18:03 Order name: Urine Test (obtain specimen); Complete Time: 18:22 rn 14 18:03 Order name: CT Head Brain wo Cont rn 11/25 18:06 Order name: Simpson; Complete Time: 18:09 cp 11/25 18:37 Order name: CT; Complete Time: 18:44 EDMS EC/14 18:20 Rate is 99 beats/min. Rhythm is regular. DE interval is normal. QRS interval is normal. cp QT interval is normal. Interpreted by me. Reviewed by me. Administered Medications: 17:40 Drug: NARcan (naloxone) 0.4 mg Route: IVP; Site: right forearm; ld1 17:45 Drug: NS 0.9% 1000 ml Route: IV; Rate: 1 bolus; Site: left forearm; ld1 17:50 Drug: NARcan (naloxone) 0.4 mg Route: IVP; Site: left forearm; ld1 18:48 Drug: NS 0.9% 1000 ml Route: IV; Rate: 1000 ml; Site: left upper arm; ld1 21:45 Drug: Solu-CORTEF (hyrdoCORTISONE) 100 mg Route: IVP; Site: left upper arm; jb4 11/26 02:08 Not Given (Patient Refused): Meclizine 25 mg PO once jb4 02:50 Drug: NS 0.9% 1000 ml Route: IV; Rate: 100 ml/hr; Site: left upper arm; jb4 Disposition Summary: 11/25/22 22:17 Transfer Ordered Reason: Higher level of care cp Condition: Stable cp Problem: new cp Symptoms: have improved cp Transfer Location: Other Acute Care Facility(11/26/22 03:44) cp Accepting Physician: DR Hinds(11/26/22 03:46) jb4 Diagnosis - Altered mental status, unspecified cp Forms: - Medication Reconciliation Form cp - SBAR form cp Signatures: Dispatcher [employer] EDMS Karl Headley MD MD rn Attema, Lee, [employer] OPERATOR-C [employer] OPERATOR-Cla1 Jayesh Marcial PA PA cp Vijay Bustamante RN RN jb4 Lakshmi Pickering RN RN ld1 Corrections: (The following items were deleted from the chart) 11/25 20:42 20:34 Home Meds: hydrocortisone 10 mg Oral tab 2 tabs once daily; jb4 jb4 11/26 00:30 11/25 22:17 Doctor cp cp 11/26 03:44 11/25 22:17 [facility] cp cp 11/26 03:44 00:30 DR Hinds cp cp 03:46 03:44 DR Lizet arredondo jb4
[2022-11-25 23:34] LABS: SARS-CoV-2 Antigen Rapid Res Negative (Negative)
[2022-11-25 23:47] LABS: Arterial Blood Carboxyhemoglob 1.1 % (0-1.5); Blood Gas Oxyhemoglobin 92.2 % (94-97); Blood O2 Saturation 94.4 % (92-98.5)
[2022-11-25] MEDS ORDERED: TETANUS & DIPHTHERIA TOX,ADULT 0.5 ML VIAL ONE (23:50)
[2022-11-26] MEDS ORDERED: NA CHLORIDE 0.9% 1,000 ML ONE (02:41)
[2022-11-26 03:51] VITALS: TEMP 97.5
[2022-11-26 03:57] VITALS: BP 154/91; O2SAT 97
--- NOTE | 2022-11-26 12:59 | EKG ---
Test Date: 2022-11-25 Test Time: 18:13:09 Torch Straightener: QUENTIN MEASUREMENT RESULTS: Intervals: Rate: 99 NH: 162 QRSD: 94 QT: 372 QTc: 477 [place]: P: 63 NH: 162 QRS: 28 T: 39 INTERPRETIVE STATEMENTS: Normal sinus rhythm Nonspecific ST and T wave abnormality Prolonged QT Abnormal ECG Compared to ECG 10/21/2022 17:38:24 ST (T wave) deviation now present Prolonged QT interval now present T-wave abnormality no longer present Electronically Signed On 11-26-22 12:58:09 [employer] by Jose Segovia
== END 2022-11-26 03:46 ==
LOC: ER 17:39
DX: R41.82 Altered mental status, unspecified (principal); I10 Essential (primary) hypertension; E03.9 Hypothyroidism, unspecified; F32.A Depression, unspecified; E11.9 Type 2 diabetes mellitus without complications; Z79.4 Long term (current) use of insulin; Z20.822 Contact with and (suspected) exposure to COVID-19; Z79.82 Long term (current) use of aspirin; Z88.2 Allergy status to sulfonamides; Z88.8 Allergy status to other drugs, medicaments and biological substances
CPT/HCPCS: 93005; 85025; 80048; 36415; 85610; 82947; 80076; 83605; 85730; 84484; 80307; 70450; 82805; 87811; J2310 ×2; J7030 ×2; J1720; G0480 ×3; 81003; 81015; 90714

== ENCOUNTER 2023-08-04 05:40 | Inpatient (IN) | payer OTHER ==
--- OUTSIDE RECORDS SUMMARY | 2023-08-04 05:52 | XMS REPORT | Continuity of Care Document ---
:1970 Author Organization [facility] t Address [address] [facility] [place] [address] Care Team Providers Name Role Phone JOHNNIE AZEVEDO Primary Care Physician Unavailable JOHNNIE AZEVEDO Attending Clinician Unavailable Aurora Avendaño MD Attending Clinician AURORA AVENDAÑO Attending Clinician Unavailable Unknown, Attending Attending Clinician Unavailable CJ MARQUEZ Attending Clinician Unavailable Doctor Unassigned, [place] Attending Clinician Unavailable Team, [facility] Attending Clinician Unavailabl e LAB90 Attending Clinician Unavailable MD DAKSHA Attending Clinician Unavailable FESTUS ROD Attending Clinician Unavailable MARGIE JAVIER Attending Clinician Unavailable FABIAN FOSTER Attending Clinician Unavailable ARUN MERCER Attending Clinician Unavailable DENISE GREEN Attending Clinician Unavailable HERLINDA SCHWARTZ Attending Clinician Unavailable Sriram Allen DO Attending Clinician Linda Abernathy MD Attending Clinician Paz Rivera MD Attending Clinician Jag EID, Tatum Nickerson Attending Clinician [phone] KELLIE RIVERS Attending Clinician Unavailable ARABELLA ENCISO Attending Clinician Unavailable KEVIN BRIAN Attending Clinician Unavailable Ronald Allison MD Attending Clinician Kevin Brian MD Attending Clinician BHARAT JOSEPH Attending Clinician Unavailable RONALD ALLISONIF Attending Clinician Unavailable CARL ALEJANDRO Attending Clinician Unavailable PATRICIA YAP Attending Clinician Unavailable Ector Attending Clinician Unavailable Khai Rosado MD Attending Clinician [phone] NEO GUNN Attending Clinician Unavailable ISIS RAMOS Attending Clinician Unavailable ISIS RAMOS Attending Clinician Unavailable King DMITRY MD, James C Attending Clinician LEX KLINE III Attending Clinician Unavailable Provider, [facility] Attending Clinician Unavailable Ryan DNP, Summer R Attending Clinician RYANJ LUISYA R Attending Clinician Unavailable LAB47 Attending Clinician Unavailable KAUR TIPTON Attending Clinician Unavailable Johnnie Azevedo DO Attending Clinician Lance EID, Arthur Attending Clinician Mahendra EID, Fabian Luke Attending Clinician [phone] Arun Mercer DO Attending Clinician Eve EID, Tavares Arciniega Attending Clinician CECILIA ABRAHAM Attending Clinician Unavailable CECILIA ABRAHAM Attending Clinician Unavailable Pat Jarvis MD Attending Clinician PAT JARVIS Attending Clinician Unavailable ARTHUR LUCAS Attending Clinician Unavailable LISSETTE MEDEROS Attending Clinician Unavailable Pearl EID, Pilar Nielsen Attending Clinician Andres VEGA, Kendra Gray Attending Clinician Unavailable KAREN BLANK Attending Clinician Unavailable Nabor EMERGENCY MEDICINE SPECIALISTKaren Attending Clinician Shena Holguin Attending Clinician Lab, Ang - Db Attending Clinician Unavailable Samantha EMERGENCY MEDICINE SPECIALIST, Steve Attending Clinician STEVE SINGH Attending Clinician Unavailable RAJAT NORIEGA Attending Clinician Unavailable Rajat Noriega MD Attending Clinician JACQUE MARES Attending Clinician Unavailable Only, Ang Db Test Attending Clinician Unavailable PILAR KANG Attending Clinician Unavailable Marizol Manning Attending Clinician MARIZOL GA Attending Clinician Unavailable Danii Estrada RN Attending Clinician Unavailable 2, [facility] Attending Clinician Unavailable Farhad Armstrong RN Attending Clinician Unavailable Esther Kinsey Attending Clinician Po, [facility] Main Attending Clinician Unavailable Gordon EID, Chrissy Garcia Attending Clinician [phone] Man VEGA, Heather Raymundo Attending Clinician Unavailable Arcenio Hand MD Attending Clinician Bruce Guardado MD, Huy Mcmullen Attending Clinician [phone] Alivia Clark MD Attending Clinician ESTHER BRAR Attending Clinician Unavailable AGUSTÍN EDEN Attending Clinician Unavailable Provider, [facility] Attending Clinician Unavailable Katty EMERGENCY MEDICINE SPECIALIST, Lissette Attending Clinician Faby Luna PA-C Attending Clinician Lui Wu MD Attending Clinician Supa NEGRETEP, Steve Mcmullen Attending Clinician Agustín Eden MD Attending Clinician FABY LUNA Attending Clinician Unavailable ADAM BRISENO Attending Clinician Unavailable Adam Briseno MD Attending Clinician PAZ RIVERA Admitting Clinician Unavailable DO SRIRAM ALLEN TOMIWA Admitting Clinician Unavailable KEVIN BRIAN Admitting Clinician Unavailable Champion_P Admitting Clinician Unavailable PAT JARVIS Admitting Clinician Unavailable RAJAT NORIEGA Admitting Clinician Unavailable Leann EID, Rajat Admitting Clinician Bruce Guardado MD, Huy Mcmullen Admitting Clinician [phone] AGUSTÍN EDEN Admitting Clinician Unavailable FABY LUNA Admitting Clinician Unavailable Payers Payer Name Policy Type Policy Number Effective Date Expiration Date S adenike HUMANA MEDICARE [id number] 2022 ADVANTAGE HMO 00:00:00 HUMANA MEDICARE MB [id number] ADVANTAGE [employer] [id number] 2019 MEDICARE ADVANTAGE 00:00:00 HUMANA MA GOLD PLUS 7 [id number] 2022 42 OA 00:00:00 HUMANA MEDICARE ADV [id number] 2022 00:00:00 HUMANA - GOLD PLUS [id number] (MEDICARE REPLACEMENT HMO) Problems Condition Condition Condition Status Onset Resolution Last Treating Co mments Source Name Details Category Date Date Treatment Clinician Date Current Current Disease Active Reema chronic chronic 6-08 [facility] use of use of 00:00: - systemic systemic 00 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 a steroids steroids l Abdominal Abdominal Disease Active [facility] pain pain [facility] 00 l UTI UTI Disease Active [facility] (urinary (urinary 3-11 st tract tract 00:00: Hospita infection) infection) 00 l Statin Statin Disease Active Reema intoleranc intoleranc 3-08 Se ybold e e 00:00: - 00 Externa l Type 2 Type [address] [facility] diabetes diabetes n[facility] 2[facility] mellitus mellitus 00:00: Medica l with with 00 Center hyperglyce hyperglyce shahzad, with shahzad, with long-term long-term current current use of use of insulin insulin Weakness Weakness Disease [facility] [place] Altered Altered Disease Active [facility] mental mental 2[facility]15 [facility] status status 00:00: Medical 00 [place] Essential Essential Disease Active [facility] hypertensi hypertensi 2-15 Rita kes on on 00:00: Medical 00 [place] Anxiety Anxiety Disease Active [facility] Insomnia Insomnia Disease [facility] Yeast Yeast Disease Active Reema infection infection 1-24 Seyb old 00:00: - 00 Externa l History of History of Disease Active [place] kidney kidney 1-24 [facility] stones stones 00:00: - 00 Externa l Other Other Disease Active Reema fatigue fatigue 1-24 Seybold 00:00: - 00 Externa l Dizziness Dizziness Disease Active Zak sey 1-24 Seybold 00:00: - 00 Externa l Arthralgia Arthralgia Disease Active K elsey 1-24 Seybold 00:00: - 00 Externa l Left renal Left renal Disease Active [place] stone stone 1-24 Seybold 00:00: - 00 Externa l Abnormal Abnormal Disease Active Kelse y abdominal abdominal 1-[address] scan CT scan 00:00: - 00 Externa l DM type [...] 00 Externa l Immunodefi Immunodefi Disease Active K elsey ciency due ciency due 9-20 Se ybold [...] Active Damir tapan type 2 type 2 6-29 [place] diabetes diabetes 00:00: - mellitus mellitus 00 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 a without without l complicati complicati on, with on, with long-term long-term current current use of use of insulin insulin Hyperlipid Hyperlipid Disease Active Damir tapan emia emia 5-17 Seybold 00:00: - 00 Externa l 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 4-19 Seybol d mellitus mellitus 00:00: - without without 00 Externa complicati complicati l on, 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, 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 of use of insulin insulin pump pump intermediate intermediate Disease Active Zak sey current current 4-19 [place] use of use of 00:00: - insulin insulin 00 Externa l Hypothyroi Hypothyroi Disease Active Damir phelan dism dism 4-19 [facility]bold (acquired) (acquired) 00:00: - 00 Externa l 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 4-19 Se ybold in in 00:00: - remission remission 00 Exte rna l DM DM Disease Active Reema (diabetes (diabetes 4-19 Seyb old mellitus) mellitus) 00:00: - 00 Externa l Acquired Acquired Disease Active Unive rs hypothyroi hypothyroi 6-09 it y of dism dism 00:00: Medical Branch Dyslipidem Dyslipidem Disease Active U nivers ia ia 6- ity of 00:00: [place] [facility] Vitamin D Vitamin D Disease Active Uni vers deficiency deficiency 5-06 it y of 00:00: Medical Branch Elevated Elevated Disease Active Unive rs liver liver 5-05 ity of enzymes enzymes 00:00: [place] [facility] Uncontroll Uncontroll Disease Active U nivers ed type 2 ed type 2 4-20 ity of diabetes diabetes 00:00: [place] mellitus mellitus 00 Medica l with with Branch insulin insulin therapy therapy DKA, type DKA, type Disease Active Uni vers 2, not at 2, not at 4-20 ity of goal goal 00:00: [place] [facility] Lumbar Lumbar Disease Active Overview: Univer s spondylosi spondylosi 04-11 Formattin ity of s s 00:00: g of this [place] note Medical might be Branch different from the original. Added automatic ally from request for surgery [id number] Body mass Body Mass Problem Active Cheo ston index 30+ Index 30+ 5-28 Metr o - obesity - Obesity 00:00: Urol ogy Kidney Kidney Problem Active [place] stone Stone 5-28 [facility] 00:00: Urology 00 Menorrhagi Menorrhagi Disease Active U nivers a with a with 2-28 ity of irregular irregular 00:00: Jose Antonio krishna cycle cycle 00 Medical Branch Obesity Obesity Disease Active Univers with body with body 2-27 ity of mass index [place] 30 or 00 [facility] Branch Intramural Intramural Disease Active Overview : [facility] leiomyoma leiomyoma 03-07 Formattin i ty of of uterus of uterus 00:00: g of this [place] note Medical might be Branch different [...] of human human 00:00: g of this [place] papillomav papillomav note Me dical irus (HPV) irus (HPV) might be Branch DNA test DNA test different positive positive from the original. 10/28/18 - pap smear normal; HPV 16 positive - colposcop y normal. ECC benign. 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 1-17 ity of 00:00: [place] [facility] Bilateral Bilateral Disease Active Uni [...] History of History of Problem Active H carolann urinary Urinary 3-14 [facility] stone Stone 00:00: Urology Bladder Bladder Problem Active [place] muscle Muscle 3-14 [facility] dysfunctio Dysfunctio 00:00: Ur ology n - n - 00 overactive Overactive Loss of Loss of Disease Active [facility] muscle muscle 3-14 ity of tone of tone of 00:00: [place] bladder bladder 00 [facility] No known No known Disease Kelse y active active Seybold problems problems Staph skin Staph skin Disease Active U nivers infection infection ity of [facility] Prediabete Prediabete Disease Active U nivers s s ity of [facility] Allergies, Adverse Reactions, Alerts Allergy Allergy Status Severity Reaction(s) Onset Inactive Treating Comm ents Source Name Type Date Date Clinician Lamotrig Drug Active Other (See blister [facility] Allergy Comments) [facility] LAMOTRIG Allergy Active High Other [facility] INE 2-15 [facility] 00:[facility] Center Lamotrig Propensi Active Other (See Alexandre Wiley thodi ine ty to Comments) 1-[address] adverse 00:00: Syndrome Hospita reaction 00 l s to drug Sulfa Propensi Active Rash [facility] (Sulfona ty to 1-16 st mide adverse 00:00: Hospita Antibiot reaction 00 l ics) s to drug Tobramyc Propensi Active Rash Method i in ty to 10-27 st adverse 00:00: Hospita reaction 00 l s to drug Bupropio Propensi Active 2019-10 Other Reema n ty to 10-31 reaction( Seybold adverse 00:00: s): - reaction 00 Unknown Externa s l Gabapent Propensi Active 2019-10 Other Reema in ty to 10-31 reaction( Seybold adverse 00:00: s): - reaction 00 Unknown Externa s l Minocycl Propensi Active Rash 2017-0 Univer s ine ty to 7- ity of adverse 00:00: [place] reaction 00 Medical s Branch Bupropio Propensi Active Swelling 2016-0 [...] DRUG Active Rash 2017-0 Univers INE INGREDI 7 ity of 00:00: [place] 00 Medical Branch SULFA Drug Active Rash 2017-0 Univers (SULFONA Class 7- ity of MIDE 00:00: [place] ANTIBIOT 00 Medical ICS) Branch BUPROPIO DRUG Active Swelling 2017-0 Univer s N INGREDI 7- ity of 00:00: [place] 00 Medical Branch Lamotrig Propensi Active Rash 2017-0 Alexandre Benavidez ine ty to 7 Supa Seybold adverse 00:00: - reaction 00 Externa s l Lamotrig Propensi Active Rash 2017-0 Alexandremarvin Benavidez ine ty to 7 Supa Seybold adverse 00:00: reaction 00 s Minocycl Propensi Active Rash 2016-0 Reema ine ty to 7 Seybold adverse 00:00: - reaction 00 Externa s l Sulfa Propensi Active Rash 2016-0 Reema Drugs ty to 7 Seybold adverse 00:00: reaction 00 s MINOCYCL Allergy Active Low Rash 2012- [facility] INE 6-12 00:00: 00 SULFA Allergy Active Low Rash [facility] (SULFONA 03-23 MIDE 00:00: ANTIBIOT 00 ICS) TOBRAMYC Allergy Active Low Rash [facility] IN 03-23 00:00: 00 Sulfa Drug Active Rash Rash and [facility] (Sulfona Allergy 03-23 throat [facility] mide 00:00: swelling Medical Antibiot 00 Center ics) Minocycl Drug Active Rash [facility] Allergy 03-23 [facility] 00:[facility]: Medical 00 Center Sulfa Drug Active Rash Rash and [facility] (Sulfona Allergy 03-23 throat [facility] mide 00:00: swelling Medical Antibiot 00 Center ics) Tobramyc Drug Active Rash [facility] in Allergy 03-23 [facility] 00:00: Medical 00 Center Sulfa Propensi Active Rash Rash and Reema Drugs ty to 03-23 throat Seybold adverse 00:00: swelling - reaction 00 Externa s l Bupropio Drug Active Other - See 1900-0 Uni vers n Hcl Allergy comments 10-12 ity of 00:00: [place] [facility] Sulfamet Drug Active Other - See 1900-0 Uni vers hoxazole Allergy comments 10-12 ity o f 00:00: [place] [facility] Tobramyc Drug Active Unknown - 1900-0 Unive rs in Allergy See comments 10-12 ity of 00:00: [place] [facility] BUPROPIO DRUG Active Other-Cmnt 1900-0 Univ ers N HCL INGREDI 10-12 ity of 00:00: [place] [facility] SULFAMET DRUG Active Other-Cmnt 1900-0 Univ ers HOXAZOLE INGREDI 10-12 ity of 00:00: [place] [facility] TOBRAMYC DRUG Active Unknown-Cmnt 1900-0 Un fernanda IN INGREDI 10-12 ity of 00:00: [place] [facility] DOXYCYCL Allergy Active 1900-0 Vogel INE to 10-12 [facility] MONOHYDR substanc 00:00: Urolog y ATE e 00 Bupropio Propensi Active Other 1900-0 Reema n ty to 10-12 Seybold adverse 00:00: reaction 00 s Doxycycl Propensi Active Rash 1900-0 Reema ine ty to 10-12 [facility] Monohydr adverse 00:00: ate reaction 00 s Tobramyc Propensi Active Other Reema in ty to 10-12 reaction( Seybold adverse 00:00: s): - reaction 00 Unknown - Exter na s See l commentsO ther reaction( s): Unknown Sulfamet Allergy Active [place] hoxazole to 10-12 [facility] substanc 00:00: Urology e 00 TOBRAMYC Allergy Active [place] IN to 10-12 [facility] substanc 00:00: Urology e 00 Wellbutr Allergy Active [place] in Sr to 10-12 [facility] substanc 00:00: Urology e 00 Social History Social Habit Start Date Stop Date Quantity Comments Source [facility] History of Social 2022-12-21 2022-12-[address] function 00:00:00 00:00:00 Hospital Alcohol intake 2022-11-26 2022-11-[address] [facility] es 00:00:00 00:00:00 non-drinker of Medical Ce nter alcohol (finding) Tobacco use and 2022-10-27 2022-10-27 Smokeless [facility] exposure 00:00:00 00:00:00 tobacco non-user Hospital Exposure to 2022-10-05 2022-10-15 Not sure University of SARS-CoV-2 (event) 00:00:00 15:18:00 [facility] Sex Assigned At [birth year] NICK [place] Rita kes 00:00:00 00:00:00 [facility] Smoking Status Start Date Stop Date Source Tobacco smoking consumption unknown [facility] Never smoked tobacco Reema Seyb old - External Medications Ordered Filled Start Stop Current Ordering Indication Dosage Frequency Signature Comments Components Source Medication Medication Date Date Medication? Clinician (SIG) Name Name triamcinolo Yes [id number] Apply to [facility] ne 7-31 area(s) 2 ity of acetonide 00:00: (two) [place] 0.1 % cream 00 times Medical daily. Branch triamcinolo Yes [id number] Apply to Univers ne 7-31 area(s) 2 ity of acetonide 00:00: (two) [place] 0.1 % cream 00 times Medical daily. Branch cephALEXin 2022- Yes [id number] 250mg Take 1 Univers (KEFLEX) 7-31 08-08 capsule by ity of 250 mg 00:00: 04:59 mouth [place] capsule 00 :00 every 6 Medical (six) Branch hours for 7 days. cetirizine 2022-0 Yes [id number] 10mg Take 1 Univers (ZYRTEC) 10 7-24 tablet by ity of mg tablet 00:00[place] the Medical morning. Branch famotidine 2022-0 Yes [id number] 40mg Take 1 Univers 40 mg 7-24 tablet by ity of tablet 00:00: mouth in [place] 00 the Medical morning. Branch montelukast 2022-0 Yes [id number] 10mg Take 1 Univers (SINGULAIR) 7-24 tablet by ity of 10 mg 00:00: mouth in [place] tablet 00 the Medical morning. Branch cetirizine 2022-0 Yes [id number] 10mg Take 1 Univers (ZYRTEC) 10 7-24 tablet by ity of mg tablet 00:00: [place] the Medical morning. Branch famotidine 2022-0 Yes [id number] 40mg Take 1 Univers 40 mg 7-24 tablet by ity of tablet 00:00: mouth in [place] 00 the Medical morning. Branch montelukast 2022-0 Yes [id number] 10mg Take 1 Univers (SINGULAIR) 7-24 tablet by ity of 10 mg 00:00: mouth in [place] tablet 00 the Medical morning. Branch cetirizine 2022-0 Yes [id number] 10mg Take 1 Univers (ZYRTEC) 10 7-24 tablet by ity of mg tablet 00:00: [place] the Medical morning. Branch famotidine 2022-0 Yes [id number] 40mg Take 1 Univers 40 mg 7-24 tablet by ity of tablet 00:00: mouth in [place] 00 the Medical morning. Branch montelukast 2022-0 Yes [id number] 10mg Take 1 Univers (SINGULAIR) 7-24 tablet by ity of 10 mg 00:00: mouth in [place] tablet 00 the Medical morning. Branch predniSONE 3-0 2023- No [id number] 40mg Take 2 Univers 20 mg 7-24 07-30 tablets by ity of tablet 00:00: 04:59 mouth in [place] 00 :00 the Medical morning Branch for 5 days. Aspirin 81 0 Yes 81mg Take 1 Kelse y MG oral 7-06 tablet (81 Seybol d Chewable 12:27: mg total) - Tablet 11 by mouth Externa daily l Tramadol 0 Yes tramadol Kelse y HCl 7-06 50 mg Seybold (ULTRAM) 50 12:27: tablet - MG oral 11 TAKE 1 Externa Tablet TABLET BY l MOUTH TWICE DAILY Tirzepatide 0 Yes [id number] 2.5mg Inject 0.5 Reema 2.5 7-06 mL (2.5 mg Seybold MG/0.5ML 12:27: total) - subcutaneou 11 into the Exte rna s Solution skin once l Pen-injecto a week r Ibuprofen Yes [id number] 800mg [id number] Take 1 Reema (MOTRIN) 7-06 [id number] tablet Sey bold 800 MG oral 00:00: 3D (800 mg - Tablet 00 total) by Externa mouth l every 8 hours as needed for pain Tirzepatide Yes [id number] 2.5mg Inject 0.5 Reema 2.5 6-08 mL (2.5 mg Seybold MG/0.5ML 14:44: total) - subcutaneou 38 into the Exte rna s Solution skin once l Pen-injecto a week r Aspirin 81 0 Yes 81mg Take 1 Kelse y MG oral 6-08 tablet (81 Seybol d Chewable 14:24: mg total) - Tablet 48 by mouth Externa daily l Tramadol 0 Yes tramadol Kelse y HCl 6-08 50 mg Seybold (ULTRAM) 50 14:24: tablet - MG oral 48 TAKE 1 Externa Tablet TABLET BY l MOUTH TWICE DAILY predniSONE 2022-0 Yes [id number] 5mg Take 0.5 Reema (DELTASONE) 6-08 4103 tablets (5 Se ybold 10 MG oral 00:00: mg total) - tablet 00 by mouth Externa daily l Clonazepam 2022-0 Yes [id number] .25mg Q.5D Take 2 Reema 0.125 MG 6-08 tablets Seybold oral TABLET 00:00: (0.25 mg - DISPERSIBLE 00 total) by Ext mery mouth 2 l times daily as needed predniSONE 2022-0 Yes [id number] 5mg Take 0.5 Reema (DELTASONE) 6-08 4103 tablets (5 Se ybold 10 MG oral 00:00: mg total) - tablet 00 by mouth Externa daily l Clonazepam 2022-0 Yes [id number] .25mg Q.5D Take 2 Reema 0.125 MG 6-08 tablets Seybold oral TABLET 00:00: (0.25 mg - DISPERSIBLE 00 total) by Ext mery mouth 2 l times daily as needed Trazodone 2022-0 Yes [id number] TAKE ONE Reema HCl 50 MG 4-18 TABLET BY Seybo ld oral Tablet 00:00: MOUTH - 00 EVERY Externa EVENING l Trazodone 2022-0 Yes [id number] TAKE ONE Reema HCl 50 MG 4-18 TABLET BY Seybo ld oral Tablet 00:00: MOUTH - 00 EVERY Externa EVENING l Insulin 2022-0 Yes [id number] INJECT 45 Reema Glargine 4-17 UNITS Seybold (Lantus 00:00: SUBCUTANEO - SoloStar) 00 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 UNIT/ML DAY l subcutaneou s Solution Pen-injecto r Insulin 2022-0 Yes [id number] INJECT 45 Reema Glargine 4-17 UNITS Seybold (Lantus 00:00: SUBCUTANEO - SoloStar) 00 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 UNIT/ML DAY l subcutaneou s Solution Pen-injecto r predniSONE 2022-0 Yes [id number] 10mg Take 1 Reema (DELTASONE) 4-07 tablet (10 Se ybold 10 MG oral 00:00: mg total) - tablet 00 by mouth Externa daily l Insulin 2022-0 Yes [id number] INJECT 23 Reema Glargine 4-07 UNITS Seybold (Lantus 00:00: SUBCUTANEO - SoloStar) 00 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 predniSONE 2023-0 Yes 10mg QD Take 1 Metho di (DELTASONE) 4-03 tablet (10 st 10 mg 00:00: mg total) Hospita tablet 00 by mouth l daily. predniSONE 3-0 2023- No Reema (DELTASONE) 4-03 04-07 Seybold 10 MG oral 00:00: 00:00 - tablet 00 :00 Externa l HYDROcodone 2022-0 Yes 1{tbl} Take 1 Ke lsey -Acetaminop 3-24 tablet by Geovanny willard (Quat-E) 00:00: mouth 2 - 5-325 MG 00 times Externa oral Tablet daily l HYDROcodone 2023-0 2023- No 1{tbl} Take 1 K elsey -Acetaminop 3-24 06-08 tablet by Se shan willard (Quat-E) 00:00: 00:00 mouth 2 - 5-325 MG 00 :00 times Externa oral Tablet daily l Clonazepam 2023-0 Yes .25mg Q.5D Take 0.5 Ke lsey 0.5 MG oral 3-15 tablets Seybo ld Tablet 00:00: (0.25 mg - 00 total) by Externa mouth 2 l times daily as needed Clonazepam 2023-0 2023- No .25mg Q.5D Take 0.5 K elsey 0.5 MG oral 3-15 06-08 tablets Seyb old Tablet 00:00: 00:00 (0.25 mg - 00 :00 total) by Externa mouth 2 l times daily as needed insulin 2023-0 Yes 50U QD Inject 0.5 Meth ming GLARGINE 3-14 mL (50 st (LANTUS) 21:22: Units Hospita 100 unit/mL 04 total) l injection under the (vial) skin daily. hydrocortis 2023-0 Yes 5mg QD Take 1 Meth ming one 3-14 tablet (5 st (CORTEF) 5 21:22: mg total) Ho spita MG tablet 04 by mouth l nightly. insulin 2023-0 Yes 50U QD Inject 0.5 Meth ming GLARGINE 3-14 mL (50 st (LANTUS) 21:22: Units Hospita 100 unit/mL 04 total) l injection under the (vial) skin daily. hydrocortis 0 Yes 5mg QD Take 1 Meth ming one 3-14 tablet (5 st (CORTEF) 5 21:22: mg total) Ho spita MG tablet 04 by mouth l nightly. cephalexin 2022-0 2022- No 500mg Q.5D Take 1 Met hodi (KEFLEX) 12-20-[address] 500 MG 00:00: 04:59 (500 mg Hospita capsule 00 :00 total) by l mouth 2 (two) times a day for 7 days. cephalexin 2022-0 2022- No 500mg Q.5D Take 1 Met hodi (KEFLEX) 11 -[address] 500 MG 00:00: 04:59 (500 mg Hospita capsule 00 :00 total) by l mouth 2 (two) times a day for 7 days. Aspirin 81 0 Yes 81mg Take 81 mg K elsey MG oral 3-10 by mouth Seybold Chewable 17:31: daily - Tablet 35 Externa l Aspirin 81 2022-0 Yes 81mg Take 81 mg K elsey MG oral 3-08 by mouth Seybold Chewable 13:28: daily - Tablet 06 Externa l Tramadol 0 Yes tramadol Kelse y HCl 3-08 50 mg Seybold (ULTRAM) 50 13:28: tablet - MG oral 06 TAKE 1 Externa Tablet TABLET BY l MOUTH TWICE DAILY Tramadol 0 Yes tramadol Kelse y HCl 3-08 50 mg Seybold (ULTRAM) 50 13:28: tablet - MG oral 06 TAKE 1 Externa Tablet TABLET BY l MOUTH TWICE DAILY Insulin 0 Yes [id number] INJECT 50 Reema Glargine 3-08 UNITS Seybold (Lantus 00:00: SUBCUTANEO - SoloStar) 00 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 UNIT/ML DAY l subcutaneou s Solution Pen-injecto r Insulin 2022-0 2022- No [id number] INJECT 50 [facility] Glargine 3-08 04-07 UNITS [facility] (Lantus 00:00: 00:00 SUBCUTANEO - SoloStar) 00 :00 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 UNIT/ML DAY l subcutaneou s Solution Pen-injecto r hydrOXYzine Yes [id number] 25mg Q.[id number] Take 1 Reema HCl 25 MG 3-03 [id number] tablet (25 [facility] oral Tablet 00:00: 3D mg total) - 00 by mouth 3 Externa times l daily as needed for itching hydrOXYzine Yes [id number] 25mg Q.[id number] Take 1 Reema HCl 25 MG 3-03 [id number] tablet (25 [facility] oral Tablet 00:00: 3D mg total) - 00 by mouth 3 Externa times l daily as needed for itching hydrOXYzine 2022- No [id number] 25mg Q.[id number] Take 1 Reema HCl 25 MG 3-03 06-08 [id number] tablet (25 [facility] oral Tablet 00:00: 00:00 3D mg total) - 00 :00 by mouth 3 Externa times l daily as needed for itching Insulin 2022- No [id number] INJECT 35 Reema Glargine 2-26 03-08 UNITS [facility] (Lantus 00:00: 00:00 SUBCUTANEO - SoloStar) 00 :00 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 UNIT/ML DAY l subcutaneou s Solution Pen-injecto r aspirin 81 Yes 81mg Q24H Take [address] [facility] EC 2-17 [facility] tablet 20:00: daily. [facility] 06 [facility] insulin Yes 63U Inject 63 [facility] glargine [facility] (LANTUS, 20:00: subcutaneo Med ical SEMGLEE) 06 usly once Center 100 unit/mL in (3 mL) InPn morning. levothyroxi Yes 137ug QD Take [address] ne 2-17 mcg by [facility] (SYNTHROID, 20:00: mouth Medic al LEVOTHROID) 06 daily. Center 137 MCG tablet insulin Yes Novolog [facility] aspart 2-17 FlexPen [facility] U-100 20:00: U-100 Medical (NovoLOG 06 Insulin Center Flexpen aspart 100 U-100 unit/mL (3 Insulin) mL) 100 [facility]0 Yes 100mg QD Take [address] (SEROquel) 2-17 mg by [facility] 100 MG 20:00: mouth Medical tablet 06 nightly. Center traZODone 2022-0 Yes 50mg QD Take [address] [facility] (DESYREL) 2-17 by mouth [facility] 50 MG 20:00: nightly. Medical tablet 06 Center clonAZEPAM 2022-0 Yes clonazepam M ethodi (KlonoPIN) 2-[address] 0.125 MG 00:00: disintegra [facility] disintegrat 00 ting l ing tablet tablet clonAZEPAM 2022-0 Yes clonazepam M ethodi (KlonoPIN) 2-[address] 0[address]125 MG 00:00: disintegra [facility] disintegrat 00 ting l ing tablet tablet Clonazepam 3-0 Yes [id number] .125mg Q.5D Take 1 Reema 0.125 MG 2-17 tablet [facility] oral TABLET 00:00: (0.125 mg - DISPERSIBLE 00 total) by Ext mery mouth 2 l times daily as needed Clonazepam 3-0 Yes [id number] .125mg Q.5D Take 1 Reema 0.125 MG 2-17 tablet [facility] oral TABLET 00:00: (0.125 mg - DISPERSIBLE 00 total) by Ext mery mouth 2 l times daily as needed Clonazepam 3-0 2023- No [id number] .125mg Q.5D Take 1 Reema 0.125 MG 2-17 06-08 tablet [facility] oral TABLET 00:00: 00:00 (0.125 mg - DISPERSIBLE 00 :00 total) by Ext mery mouth 2 l times daily as needed clonazePAM 3-0 Yes 1mg Q.5D Take [address] [facility] [address] [facility] (KLONOPIN) 2-16 by mouth 2 Therese es 1 MG tablet 20:30: (two) Medic al 59 times Center daily . carvedilol 2022-0 Yes 12.5mg Take 12.[address] [facility] (COREG) 2-16 mg by [facility] 12.5 MG 20:30: mouth 2 Medical tablet 59 (two) Center times daily with breakfast and dinner. TIZANIDINE 2022- No Take by [facility] HCL 2-16 02-16 mouth. [facility] (ZANAFLEX 10:14: 00:00 Medical ORAL) 23 :00 [place] methocarbam 0 2022- No 750mg Q.25D Take [address] [address] ol 2-16 02-16 mg by [facility] (ROBAXIN) 10:14: 00:00 mouth 4 Medi owen 750 MG 23 :00 (four) Center tablet times daily. DULoxetine 2022- No 30mg QD Take [address] [facility] (CYMBALTA) 2-15 02-15 by mouth [facility] 30 MG 05:47: 00:00 daily. Medical capsule 33 :00 [place] Aspirin 81 0 Yes 81mg Take 81 mg [facility] MG oral 2-08 by mouth [facility] Chewable 14:00: daily - Tablet 02 Externa l Insulin Yes [id number] 63 units [facility] Glargine 2-06 sc every [facility] (Lantus 00:00: day - SoloStar) 00 Externa 100 UNIT/ML l subcutaneou s Solution Pen-injecto r levothyroxi Yes [facility] i ne 2-03 [facility] (SYNTHROID) 00:00: Hospit a 137 mcg 00 l tablet levothyroxi Yes [facility] i ne 2-03 [facility] (SYNTHROID) 00:00: Hospit a 137 mcg 00 l tablet albuterol albuterol No albuterol Vogel sulfate HFA [...] OR WHEEZING SHORTNESS OF BREATH OR WHEEZING hydrocortis 0 Yes 20mg Take [address] [facility] one 1-31 by mouth [facility] (CORTEF) 10 00:00: in the Medi owen MG tablet 00 morning. [place] Clonazepam 0 Yes [id number] .125mg Q.5D Take 1 Reema 0.125 MG 1-30 tablet [facility] oral TABLET 00:00: (0.125 mg - DISPERSIBLE 00 total) by Ext mery mouth 2 l times daily as needed Hydrocortis 2022-0 Yes [id number] 20 mg Reema one 10 MG 1-30 every am [facility] oral Tablet 00:00: and 10 mg - 00 every Externa night l Hydrocortis 2022-0 Yes [id number] 20 mg Reema one 10 MG 1-30 every am [facility] oral Tablet 00:00: and 10 mg - 00 every Externa night l Hydrocortis 2022-0 2022- No [id number] 20 mg Reema one 10 MG 1-30 04-07 every am [facility] oral Tablet 00:00: 00:00 and 10 mg - 00 :00 every Externa night l Fluconazole 2022-0 2022- No [id number] 150mg Take 1 Reema 150 MG oral 1-24 04-07 tablet [facility] Tablet 00:00: 00:00 (150 mg - 00 :00 total) by Externa mouth once l for 1 dose Fluconazole 2022-0 2022- No [id number] 150mg Take 1 Reema 150 MG oral 1-24 -25 tablet [facility] Tablet 00:00: 05:59 (150 mg - 00 :00 total) by Externa mouth once l for 1 dose Clonazepam 2022-0 Yes [id number] .125mg Q.5D Take 1 Reema 0.125 MG 1-17 tablet [facility] oral TABLET 00:00: (0.125 mg - DISPERSIBLE 00 total) by Ext mery mouth 2 l times daily as needed Simvastatin 2022-0 2022- No [id number] 20mg Take 1 Reema 20 MG oral 1-17 -24 tablet (20 [facility] Tablet 00:00: 00:00 mg total) - 00 :00 by mouth Externa nightly l ondansetron 2022-0 Yes 4mg Q8H Take 1 [facility] ODT 1-16 tablet (4 st (ZOFRAN-ODT 00:00: mg total) [facility] ) 4 MG 00 by mouth l disintegrat every 8 ing tablet (eight) hours as needed for nausea or vomiting. ondansetron 2022-0 Yes 4mg Q8H Take 1 Meth ming ODT 1-16 tablet (4 st (ZOFRAN-ODT 00:00: mg total) [facility] ) 4 MG 00 by mouth l disintegrat every 8 ing tablet (eight) hours as needed for nausea or vomiting. ondansetron 2023-0 Yes 4mg Q8H Take 1 Meth imng ODT 1-16 tablet (4 st (ZOFRAN-ODT 00:00: mg total) [facility] ) 4 MG 00 by mouth l disintegrat every 8 ing tablet (eight) hours as needed for nausea or vomiting. cyclobenzap 2023-0 2023- No 10mg Q.5D Take 1 Met hodi rine 1-16 02-16 tablet (10 st (FLEXERIL) 00:00: 05:59 mg total) [facility] 10 mg 00 :00 by mouth 2 l tablet (two) times a day as needed for muscle spasms for up to 30 days. ibuprofen 3-0 2023- No 600mg Q6H Take 1 Meth ming (ADVIL) 600 -16 02-[address] MG tablet 00:00: 05:59 (600 mg [facility] 00 :00 total) by l mouth every 6 (six) hours as needed for mild pain for up to 30 days. cyclobenzap 2023-0 2023- No 10mg Q.5D Take 1 Met hodi rine -16 02-16 tablet (10 st (FLEXERIL) 00:00: 05:59 mg total) [facility] 10 mg 00 :00 by mouth 2 l tablet (two) times a day as needed for muscle spasms for up to 30 days. ibuprofen 3-0 2023- No 600mg Q6H Take 1 Meth ming (ADVIL) 600 -16 02-[address] MG tablet 00:00: 05:59 (600 mg [facility] 00 :00 total) by l mouth every 6 (six) hours as needed for mild pain for up to 30 days. cyclobenzap 2023-0 2023- No 10mg Q.5D Take 1 Met [facility]odi rine 1-16 02-16 tablet (10 st (FLEXERIL) 00:00: 05:59 mg total) [facility] 10 mg 00 :00 by mouth 2 l tablet (two) times a day as needed for muscle spasms for up to 30 days. ibuprofen 2023-0 2023- No 600mg Q6H Take 1 Meth ming (ADVIL) 600 1-16 02-[address] MG tablet 00:00: 05:59 (600 mg [facility] 00 :00 total) by l mouth every 6 (six) hours as needed for mild pain for up to 30 days. hydrocortis 3-0 Yes 10mg QD Take 2 Meth ming one 1-[address] (CORTEF) 5 00:00: (10 mg Hospi ta MG tablet 00 total) by l mouth daily. traZODone 2022-0 Yes 50mg QD Take 1 [facility] i (DESYREL) 1-11 tablet (50 st 50 MG 00:00: mg total) Hospita tablet 00 by mouth l nightly. hydrocortis 2022-0 Yes 10mg QD Take [address] [facility] one 1-11 by [facility] (CORTEF) 5 00:00: nightly. Med ical MG tablet 00 Center hydrocortis 2022-0 Yes 10mg QD Take 2 Meth ming one 1-[address] (CORTEF) 5 00:00: (10 mg Hospi ta MG tablet 00 total) by l mouth daily. traZODone 2022-0 Yes 50mg QD Take 1 [facility] (DESYREL) 1-11 tablet (50 st 50 MG 00:00: mg total) Hospita tablet 00 by mouth l nightly. Valacyclovi 2022-0 Yes [id number] TAKE 1 Reema r HCl 500 1-11 TABLET(500 [facility] old MG oral 00:00: MG) BY - Tablet 00 MOUTH Externa DAILY l NEEDED FOR HERPES OR BREAKOUTS Metformin 2022-0 Yes [id number] 1000mg Take 1 Reema HCl 1000 MG 1-11 tablet [facility] oral Tablet 00:00: (1,000 mg - 00 total) by Externa mouth in l the morning and 1 tablet (1,000 mg total) in the evening. Take with meals. Trazodone 2022-0 Yes [id number] 50mg Take 1 K elsey HCl 50 MG 1-11 tablet (50 [facility] old oral Tablet 00:00: mg total) - 00 by mouth Externa every day l at 5:00 PM Valacyclovi 2022-0 Yes [id number] TAKE 1 Reema r HCl 500 1-11 TABLET(500 [facility] old MG oral 00:00: MG) BY - Tablet 00 MOUTH Externa DAILY l NEEDED FOR HERPES OR BREAKOUTS Metformin 2022-0 Yes [id number] 1000mg Take 1 Reema HCl 1000 MG 1-11 tablet [facility] oral Tablet 00:00: (1,000 mg - 00 total) by Externa mouth in l the morning and 1 tablet (1,000 mg total) in the evening. Take with meals. Trazodone 2022-0 Yes [id number] 50mg Take 1 K [facility] HCl 50 MG 1-11 tablet (50 [facility] oral Tablet 00:00: mg total) - 00 by mouth Externa every day l at 5:00 PM Valacyclovi 2022-0 Yes [id number] TAKE 1 Reema r HCl 500 1-11 TABLET(500 [facility] old MG oral 00:00: MG) BY - Tablet 00 MOUTH Externa DAILY l NEEDED FOR HERPES OR BREAKOUTS Metformin 2022-0 Yes [id number] 1000mg Take 1 Reema HCl 1000 MG 1-11 tablet [facility] oral Tablet 00:00: (1,000 mg - 00 total) by Externa mouth in l the morning and 1 tablet (1,000 mg total) in the evening. Take with meals. Trazodone 2022-0 Yes [id number] 50mg Take 1 K [facility] HCl 50 MG 1-11 tablet (50 [facility] oral Tablet 00:00: mg total) - 00 by mouth Externa every day l at 5:00 PM Valacyclovi 3-0 Yes [id number] TAKE 1 Reema r HCl 500 1-11 TABLET(500 [facility] old MG oral 00:00: MG) BY - Tablet 00 MOUTH Externa DAILY l NEEDED FOR HERPES OR BREAKOUTS Metformin 2022-0 Yes [id number] 1000mg Take 1 Reema HCl 1000 MG 1-11 tablet [facility] oral Tablet 00:00: (1,000 mg - 00 total) by Externa mouth in l the morning and 1 tablet (1,000 mg total) in the evening. Take with meals. Trazodone 2022-0 Yes [id number] 50mg Take 1 K [facility] HCl 50 MG 1-11 tablet (50 [facility] old oral Tablet 00:00: mg total) - 00 by mouth Externa every day l at 5:00 PM Valacyclovi 2023-0 Yes [id number] TAKE 1 Reema r HCl 500 1-11 TABLET(500 [facility] old MG oral 00:00: MG) BY - Tablet 00 MOUTH Externa DAILY l NEEDED FOR HERPES OR BREAKOUTS Valacyclovi Yes [id number] TAKE 1 Reema r HCl 500 1-11 TABLET(500 [facility] old MG oral 00:00: MG) BY - Tablet 00 MOUTH Externa DAILY l NEEDED FOR HERPES OR BREAKOUTS Metformin 2022- No [id number] 1000mg Take 1 Reema HCl 1000 MG 10-2208 tablet [facility] ld oral Tablet 00:00: 00:00 (1,000 mg - 00 :00 total) by Externa mouth in l the morning and 1 tablet (1,000 mg total) in the evening. Take with meals. Hydrocortis 2022- No [id number] Takes 3 Reema one 5 MG 10-22 tablets po [facility] old oral Tablet 00:00: 00:00 Q AM and 1 - 00 :00 tablet po Externa Q PM l levoFLOXaci Yes [id number] 750mg Take 1 Reema n 10-20 tablet [facility] (Levaquin) 00:00: (750 mg - 750 MG oral 00 total) by Ext mery Tablet mouth l daily guaiFENesin Yes 5mL Q.[id number] Take 5 mL [facility] -Codeine 10-20 [id number] by mouth 3 [facility] (Cheratussi 00:00: 3D times - n AC) 00 daily as Externa 100-10 needed for l MG/5ML oral cough Syrup levoFLOXaci 2022- No [id number] 750mg Take 1 Reema n 10-20 tablet [facility] (Levaquin) 00:00: 00:00 (750 mg - 750 MG oral 00 :00 total) by Ext mery Tablet mouth l daily Promethazin 2022- No 5mL Q4H Take 5 mL Reema e-Codeine 10-20 by mouth [facility] ld 6.25-10 00:00: 00:00 every 4 - MG/5ML oral 00 :00 hours as Exte rna Syrup needed for l cough predniSONE Yes [id number] 40mg Take 2 U nivers 20 mg 1-04 tablets by ity of tablet 00:00: mouth in [place] 00 the Medical morning. Branch For 7 days then 1 / day for 7 days predniSONE 2023-0 Yes [id number] 40mg Take 2 U nivers 20 mg 1-04 tablets by ity of tablet 00:00: mouth in [place] 00 the Medical morning. Branch For 7 days then 1 / day for 7 days promethazin 2023-0 Yes [id number] 5mL Take 5 mL [facility] e-dextromet 1-04 by mouth 4 it y of horphan 00:00: (four) [place] 6.25-15 00 times Medical mg/5 mL daily. Branch syrup predniSONE 2023-0 Yes [id number] 40mg Take 2 U nivers 20 mg 1-04 tablets by ity of tablet 00:00: mouth in [place] 00 the Medical morning. Branch For 7 days then 1 / day for 7 days promethazin 2023-0 Yes [id number] 5mL Take 5 mL [facility] e-dextromet 1-04 by mouth 4 it y of horphan 00:00: (four) [place] 6.25-15 00 times Medical mg/5 mL daily. Branch syrup predniSONE 2023-0 Yes [id number] 40mg Take 2 U nivers 20 mg 1-04 tablets by ity of tablet 00:00: mouth in [place] 00 the Medical morning. Branch For 7 days then 1 / day for 7 days phenylephri 2023-0 Yes [id number] 5mL Take 5 mL U nivers ne-prometha 1-04 by mouth 4 it y of zine-codein 00:00: (four[place] 6.25-5[place] 00 times Medical mg/5 mL daily as Branch syrup needed for Cough. Indication s: acute pain promethazin 2023-0 Yes [id number] 5mL Take 5 mL [facility] e-dextromet 1-04 by mouth 4 it y of horphan 00:00: (four) [place] 6.25-15 00 times Medical mg/5 mL daily. Branch syrup predniSONE 2023-0 Yes [id number] 40mg Take 2 U nivers 20 mg 1-04 tablets by ity of tablet 00:00: mouth in [place] 00 the Medical morning. Branch For 7 days then 1 / day for 7 days phenylephri 2023-0 Yes [id number] 5mL Take 5 mL U nivers ne-prometha 1-04 by mouth 4 it y of zine-codein 00:00: (four[place] 6.25-5-[place] 00 times Medical mg/5 mL daily as Branch syrup needed for Cough. Indication s: acute pain promethazin 2023-0 Yes [id number] 5mL Take 5 mL [facility] e-dextromet 1-04 by mouth 4 it y of horphan 00:00: (four) [place] 6.25-15 00 times Medical mg/5 mL daily. Branch syrup predniSONE 3-0 Yes [id number] 40mg Take 2 U nivers 20 mg 1-04 tablets by ity of tablet 00:00: mouth in [place] 00 the Medical morning. Branch For 7 days then 1 / day for 7 days phenylephri 3-0 Yes [id number] 5mL Take 5 mL U nivers ne-prometha 1-04 by mouth 4 it y of zine-codein 00:00: (four[place] 6.25-5-[place] 00 times Medical mg/5 mL daily as Branch syrup needed for Cough. Indication s: acute pain promethazin 3-0 Yes [id number] 5mL Take 5 mL [facility] e-dextromet 1-04 by mouth 4 it y of horphan 00:00: (four) [place] 6.25-15 00 times Medical mg/5 mL daily. Branch syrup predniSONE 3-0 Yes [id number] 40mg Take 2 U nivers 20 mg 1-04 tablets by ity of tablet 00:00: mouth in [place] 00 the Medical morning. Branch For 7 days then 1 / day for 7 days phenylephri 3-0 Yes [id number] 5mL Take 5 mL U nivers ne-prometha 1-04 by mouth 4 it y of zine-codein 00:00: (four[place] 6.25-5-[place] 00 times Medical mg/5 mL daily as Branch syrup needed for Cough. Indication s: acute pain promethazin 2023-0 Yes [id number] 5mL Take 5 mL [facility] e-dextromet 1-04 by mouth 4 it y of horphan 00:00: (four) [place] 6.25-15 00 times Medical mg/5 mL daily. Branch syrup predniSONE 2023-0 Yes [id number] 40mg Take 2 U nivers 20 mg 1-04 tablets by ity of tablet 00:00: mouth in [place] 00 the Medical morning. Branch For 7 days then 1 / day for 7 days phenylephri 2023-0 Yes [id number] 5mL Take 5 mL [facility] ne-prometha 1-04 by mouth 4 it y of zine-codein 00:00: (four[place] 6.25-5-10 00 times Medical mg/5 mL daily as Branch syrup needed for Cough. Indication s: acute pain promethazin 2023-0 Yes [id number] 5mL Take 5 mL [facility] e-dextromet 1-04 by mouth 4 it y of horphan 00:00: (four) [place] 6.25-15 00 times Medical mg/5 mL daily. Branch syrup predniSONE 3-0 Yes [id number] 40mg Take 2 U nivers 20 mg 1-04 tablets by ity of tablet 00:00: mouth in [place] 00 the Medical morning. Branch For 7 days then 1 / day for 7 days phenylephri 2023-0 Yes [id number] 5mL Take 5 mL U nivers ne-prometha 1-04 by mouth 4 it y of zine-codein 00:00: (four[place] 6.25-5-10 00 times Medical mg/5 mL daily as Branch syrup needed for Cough. Indication s: acute pain phenylephri 2023-0 Yes [id number] 5mL Take 5 mL [facility] n[facility] ne-prometha 1-04 by mouth 4 it y of zine-codein 00:00: (four[place] 6.25-5-10 00 times Medical mg/5 mL daily as Branch syrup needed for Cough. Indication s: acute pain phenylephri 2023-0 Yes [id number] 5mL Take 5 mL U n[facility] ne-prometha 1-04 by mouth 4 it y of zine-codein 00:00: (four[place] 6.25-5-10 00 times Medical mg/5 mL daily as Branch syrup needed for Cough. Indication s: acute pain phenylephri 2023-0 Yes [id number] 5mL Take 5 mL U nivers ne-prometha 1-04 by mouth 4 it y of zine-codein 00:00: (four[place] 6.25-5-10 00 times Medical mg/5 mL daily as Branch syrup needed for Cough. Indication s: acute pain promethazin 2022-0 2022- No [id number] 5mL Take 5 mL [facility] e-dextromet 10-1524 by mouth 4 i ty of horphan 00:00: 00:00 (four) [place] 6.25-15 00 :00 times Medical mg/5 mL daily. Branch syrup predniSONE 2022-0 2022- No [id number] 40mg Take 2 [facility] 20 mg 10-15 tablets by ity of tablet 00:00: 00:00 mouth in [place] 00 :00 the Medical morning. Branch For 7 days then 1 / day for 7 days phenylephri 2022-0 2022- No [id number] 5mL Take 5 mL [facility] ne-prometha 10-1512 by mouth 4 i ty of zine-codein 00:00: 05:59 (four) [place] 6.25-5-10 00 :00 times Medical mg/5 mL daily as Branch syrup needed for Cough for up to 7 days. Indication s: acute pain phenylephri 2022-0 2022- No [id number] 5mL Take 5 mL [facility] ne-prometha 10-1512 by mouth 4 i ty of zine-codein 00:00: 05:59 (four) [place] 6.25-5-10 00 :00 times Medical mg/5 mL daily as Branch syrup needed for Cough for up to 7 days. Indication s: acute pain phenylephri 3-0 2022- No [id number] 5mL Take 5 mL [facility] ne-prometha 10-1512 by mouth 4 i ty of zine-codein 00:00: 05:59 (four) [place] 6.25-5-10 00 :00 times Medical mg/5 mL daily as Branch syrup needed for Cough for up to 7 days. Indication s: acute pain predniSONE 3-0 2022- No [id number] 40mg Take 2 [facility] 20 mg 10-15 tablets by ity of tablet 00:00: 00:00 mouth in [place] 00 :00 the Medical morning. Branch For 7 days then 1 / day for 7 days phenylephri 2023-0 2022- No [id number] 5mL Take 5 mL [facility] ne-prometha 10-15-04 by mouth 4 i ty of zine-codein 00:00: 00:00 (four) [place] 6.25-5-10 00 :00 times Medical mg/5 mL daily as Branch syrup needed for Cough for up to 7 days. Indication s: acute pain Clonazepam 0 Yes [id number] .125mg Q.5D Take 1 Reema 0.125 MG 1-03 tablet [facility] oral TABLET 00:00: (0.125 mg - DISPERSIBLE 00 total) by Ext mery mouth 2 l times daily as needed Trazodone Yes [id number] TAKE ONE Reema HCl 50 MG -03 TABLET BY [facility] ld oral Tablet 00:00: MOUTH - 00 EVERY Externa EVENING l promethazin 2021-10- No [id number] 5mL Take 5 mL [facility] e-dextromet 10-18 by mouth 4 i ty of horphan 00:00: 05:59 (four) [place] 6.25-15 00 :00 times Medical mg/5 mL daily for Branch syrup 7 days. promethazin 2021-10- No [id number] 5mL Take 5 mL [facility] e-dextromet 10-18 by mouth 4 i ty of horphan 00:00: 05:59 (four) [place] 6.25-15 00 :00 times Medical mg/5 mL daily for Branch syrup 7 days. promethazin 2021-10- No [id number] 5mL Take 5 mL [facility] e-dextromet 10-18 by mouth 4 i ty of horphan 00:00: 05:59 (four) [place] 6.25-15 00 :00 times Medical mg/5 mL daily for Branch syrup 7 days. promethazin 2021-10- No [id number] 5mL Take 5 mL [facility] e-dextromet 10-15 by mouth 4 i ty of horphan 00:00: 00:00 (four) [place] 6.25-15 00 :00 times Medical mg/5 mL daily for Branch syrup 7 days. ipratropium 2021-10- No [id number] 3mL U nivers -albuteroL -30 ity of (DUONEB) 23:15: 11:14 [place] 0.5 mg-3 00 :00 Medical mg(2.5 mg Branch base)/3 mL nebulizer solution 3 mL ipratropium 2021-10- No [id number] 3mL U nivers -albuteroL 10-10 ity of (DUONEB) 23:15: 11:14 [place] 0.5 mg-3 00 :00 Medical mg(2.5 mg Branch base)/3 mL nebulizer solution 3 mL ipratropium 2021-10- No [id number] 3mL U nivers -albuteroL 10-10 ity of (DUONEB) 23:15: 11:14 [place] 0.5 mg-3 00 :00 Medical mg(2.5 mg Branch base)/3 mL nebulizer solution 3 mL ipratropium 2021-10- No [id number] 3mL U nivers -albuteroL 10-10 ity of (DUONEB) 23:15: 11:14 [place] 0.5 mg-3 00 :00 Medical mg(2.5 mg Branch base)/3 mL nebulizer solution 3 mL ipratropium 2021-10- No [id number] 3mL U nivers -albuteroL 10-09 ity of (DUONEB) 23:15: 22:30 [place] 0.5 mg-3 00 :00 Medical mg(2.5 mg Branch base)/3 mL nebulizer solution 3 mL ipratropium 2021-10- No [id number] 3mL 3 mL, [facility] -albuteroL 10-09 Inhalation [...] owen mg tablet Branch albuterol 2021-10 Yes [id number] 2{puff} Inhale 2 [facility] 90 2-29 Puffs [...] Cough. Indication s: cough albuterol 2021-10 Yes [id number] 2{puff} Inhale 2 [facility] 90 2-29 Puffs ity of mcg/actuati 00:00: every 6 [place] as on inhaler 00 (six) Medical hours as Branch needed for Shortness of Breath or Wheezing. albuterol 2021-10 Yes [id number] 2{puff} Inhale 2 [facility] 90 2-29 Puffs [...] Cough. Indication s: cough albuterol 2021-10 Yes [id number] 2{puff} Inhale 2 [facility] 90 2-29 Puffs ity of mcg/actuati 00:00: every 6 [place] as on inhaler 00 (six) Medical hours as Branch needed for Shortness of Breath or Wheezing. benzonatate 2021-10 Yes [id number] 200mg Take 2 [facility] 100 mg 2-29 capsules ity of capsule 00:00: by mouth [place] 00 every 8 Medical (eight) Branch hours as needed for Cough. codeine-gua 2021-10 Yes 10mL Take 10 mL [facility] ifenesin 2-29 by mouth ity of 10-100 mg/5 00:00: at [place] mL oral 00 bedtime. Medical solution Indication Branc h s: cough albuterol 2021-10 Yes [id number] 2{puff} Inhale 2 [facility] 90 2-29 Puffs ity of mcg/actuati 00:00: every 6 [place] as on inhaler 00 (six) Medical hours as Branch needed for Shortness of Breath or Wheezing. benzonatate 2021-10 Yes [id number] 200mg Take 2 [facility] 100 mg 2-29 capsules ity of capsule 00:00: by mouth [place] 00 every 8 Medical (eight) Branch hours as needed for Cough. codeine-gua 2021-10 Yes 10mL Take 10 mL [facility] ifenesin 2-29 by mouth ity of 10-100 mg/5 00:00: at [place] mL oral 00 bedtime. Medical solution Indication Branc h s: cough albuterol 2021-10 Yes [id number] 2{puff} Inhale 2 [facility] 90 2-29 Puffs ity of mcg/actuati 00:00: every 6 [facility] as on inhaler 00 (six) Medical hours as Branch needed for Shortness of Breath or Wheezing. benzonatate 2021-10 Yes [id number] 200mg Take 2 [facility] 100 mg 2-29 capsules ity of capsule 00:00: by mouth [place] 00 every 8 Medical (eight) Branch hours as needed for Cough. codeine-gua 2021-10 Yes 10mL Take 10 mL [facility] ifenesin 2-29 by mouth ity of 10-100 mg/5 00:00: at [place] mL oral 00 bedtime. Medical solution Indication Branc h s: cough albuterol 2021-10 Yes [id number] 2{puff} Inhale 2 [facility] 90 2-29 Puffs ity of mcg/actuati 00:00: every 6 [place] as on inhaler 00 (six) Medical hours as Branch needed for Shortness of Breath or Wheezing. benzonatate 2021-10 Yes [id number] 200mg Take 2 [facility] 100 mg 2-29 capsules ity of capsule 00:00: by mouth [place] [id number] every 8 Medical (eight) Branch hours as needed for Cough. codeine-gua 2021-10 Yes 10mL Take 10 mL [facility] ifenesin 2-29 by mouth ity of 10-100 mg/5 00:00: at [place] mL oral 00 bedtime. Medical solution Indication Branc h s: cough albuterol 2021-10 Yes [id number] 2{puff} Inhale 2 [facility] 90 2-29 Puffs ity of mcg/actuati 00:00: every 6 [place] as on inhaler 00 (six) Medical hours as Branch needed for Shortness of Breath or Wheezing. benzonatate 2021-10 Yes [id number] 200mg Take 2 [facility] 100 mg 2-29 capsules ity of capsule 00:00: by mouth [place] 00 every 8 Medical (eight) Branch hours as needed for Cough. codeine-gua 2021-10 Yes 10mL Take 10 mL [facility] ifenesin 2-29 by mouth ity of 10-100 mg/5 00:00: at [place] mL oral 00 bedtime. Medical solution Indication Branc h s: cough albuterol 2021-10 Yes [id number] 2{puff} Inhale 2 [facility] 90 2-29 Puffs ity of mcg/actuati 00:00: every 6 [place] as on inhaler 00 (six) Medical hours as Branch needed for Shortness of Breath or Wheezing. codeine-gua 2021-10 Yes 5mL Take 5 mL [facility] n[facility] ifenesin 2-29 by mouth ity of 10-100 mg/5 00:00: every 6 [place] as mL oral 00 (six) Medical solution hours as Branch needed for Cough. Indication s: cough benzonatate 2021-10 Yes [id number] 200mg Take 2 [facility] 100 mg 2-29 capsules ity of capsule 00:00: by mouth [place] 00 every 8 Medical (eight) Branch hours as needed for Cough. codeine-gua 2021-10 Yes 10mL Take 10 mL [facility] ifenesin 2-29 by mouth ity of 10-100 mg/5 00:00: at [place] mL oral 00 bedtime. Medical solution Indication Branc h s: cough albuterol 2021-10 Yes [id number] 2{puff} Inhale 2 [facility] 90 2-29 Puffs ity of mcg/actuati 00:00: every 6 [place] as on inhaler 00 (six) Medical hours as Branch needed for Shortness of Breath or Wheezing. benzonatate 2021-10 Yes [id number] 200mg Take 2 [facility] 100 mg 2-29 capsules ity of capsule 00:00: by mouth [place] 00 every 8 Medical (eight) Branch hours as needed for Cough. albuterol 2021-10 Yes [id number] 2{puff} Inhale 2 [facility] 90 2-29 Puffs ity of mcg/actuati 00:00: every 6 [place] as on inhaler 00 (six) Medical hours as Branch needed for Shortness of Breath or Wheezing. benzonatate 2021-10 Yes [id number] 200mg Take 2 [facility] 100 mg 2-29 capsules ity of capsule 00:00: by mouth [place] 00 every 8 Medical (eight) Branch hours as needed for Cough. albuterol 2021-10 Yes [id number] 2{puff} Inhale 2 [facility] 90 2-29 Puffs ity of mcg/actuati 00:00: every 6 [place] as on inhaler 00 (six) Medical hours as Branch needed for Shortness of Breath or Wheezing. benzonatate 2021-10 Yes [id number] 200mg Take 2 [facility] 100 mg 2-29 capsules ity of capsule 00:00: by mouth [place] 00 every 8 Medical (eight) Branch hours as needed for Cough. albuterol 2021-10 Yes [id number] 2{puff} Inhale 2 [facility] 90 2-29 Puffs ity of mcg/actuati 00:00: every 6 [place] as on inhaler 00 (six) Medical hours as Branch needed for Shortness of Breath or Wheezing. benzonatate 2021-10 Yes [id number] 200mg Take 2 [facility] 100 mg 2-29 capsules ity of capsule 00:00: by mouth [place] 00 every 8 Medical (eight) Branch hours as needed for Cough. albuterol 2021-10 Yes [id number] 2{puff} Inhale 2 [facility] 90 2-29 Puffs ity of mcg/actuati 00:00: every 6 [place] as on inhaler 00 (six) Medical hours as Branch needed for Shortness of Breath or Wheezing. benzonatate 2021-10 Yes [id number] 200mg Take 2 [facility] 100 mg 2-29 capsules ity of capsule 00:00: by mouth [place] 00 every 8 Medical (eight) Branch hours as needed for Cough. albuterol 2021-10 Yes [id number] 2{puff} Inhale 2 [facility] 90 2-29 Puffs ity of mcg/actuati 00:00: every 6 [place] as on inhaler 00 (six) Medical hours as Branch needed for Shortness of Breath or Wheezing. benzonatate 2021-10 Yes [id number] 200mg Take 2 [facility] 100 mg 2-29 capsules ity of capsule 00:00: by mouth [place] 00 every 8 Medical (eight) Branch hours as needed for Cough. albuterol 2021-10 Yes [id number] 2{puff} Inhale 2 [facility] 90 2-29 Puffs ity of mcg/actuati 00:00: every 6 [place] as on inhaler 00 (six) Medical hours as Branch needed for Shortness of Breath or Wheezing. benzonatate 2021-10 Yes [id number] 200mg Take 2 [facility] 100 mg 2-29 capsules ity of capsule 00:00: by mouth [place] 00 every 8 Medical (eight) Branch hours as needed for Cough. albuterol 2021-10 Yes [id number] 2{puff} Inhale 2 [facility] 90 2-29 Puffs ity of mcg/actuati 00:00: every 6 [place] as on inhaler 00 (six) Medical hours as Branch needed for Shortness of Breath or Wheezing. benzonatate 2021-10 Yes [id number] 200mg Take 2 [facility] 100 mg 2-29 capsules ity of capsule 00:00: by mouth [place] 00 every 8 Medical (eight) Branch hours as needed for Cough. albuterol 2021-10 Yes [id number] 2{puff} Inhale 2 [facility] 90 2-29 Puffs ity of mcg/actuati 00:00: every 6 [place] as on inhaler 00 (six) Medical hours as Branch needed for Shortness of Breath or Wheezing. benzonatate 2021-10 Yes [id number] 200mg Take 2 [facility] 100 mg 2-29 capsules ity of capsule 00:00: by mouth [place] 00 every 8 Medical (eight) Branch hours as needed for Cough. albuterol 2021-10 Yes [id number] 2{puff} Inhale 2 [facility] 90 2-29 Puffs ity of mcg/actuati 00:00: every 6 [place] as on inhaler 00 (six) Medical hours as Branch needed for Shortness of Breath or Wheezing. benzonatate 2021-10 Yes [id number] 200mg Take 2 [facility] 100 mg 2-29 capsules ity of capsule 00:00: by mouth [place] 00 every 8 Medical (eight) Branch hours as needed for Cough. albuterol 2021-10 Yes [id number] 2{puff} Inhale 2 [facility] 90 2-29 Puffs ity of mcg/actuati 00:00: every 6 [place] as on inhaler 00 (six) Medical hours as Branch needed for Shortness of Breath or Wheezing. benzonatate 2021-10 Yes [id number] 200mg Take 2 [facility] 100 mg 2-29 capsules ity of capsule 00:00: by mouth [place] 00 every 8 Medical (eight) Branch hours as needed for Cough. albuterol 2021-10 Yes [id number] 2{puff} Inhale 2 [facility] 90 2-29 Puffs ity of mcg/actuati 00:00: every 6 [place] as on inhaler 00 (six) Medical hours as Branch needed for Shortness of Breath or Wheezing. benzonatate 2021-10 Yes [id number] 200mg Take 2 [facility] 100 mg 2-29 capsules ity of capsule 00:00: by mouth [place] 00 every 8 Medical (eight) Branch hours as needed for Cough. albuterol 2021-10 Yes [id number] 2{puff} Inhale 2 [facility] 90 2-29 Puffs ity of mcg/actuati 00:00: every 6 [place] as on inhaler 00 (six) Medical hours as Branch needed for Shortness of Breath or Wheezing. benzonatate 2021-10 Yes [id number] 200mg Take 2 [facility] 100 mg 2-29 capsules ity of capsule 00:00: by mouth [place] 00 every 8 Medical (eight) Branch hours as needed for Cough. amoxicillin 2021-10- No [id number] 1{tbl} Take 1 [facility] -clavulanat 2-29 -06 tablet by it y of e 00:00: 05:59 mouth in [place] (AUGMENTIN) 00 :00 the Medical 875-125 mg morning Branch per tablet and 1 tablet in the evening. Do all this for 7 days. amoxicillin 2021-10- No [id number] 1{tbl} Take 1 [facility] -clavulanat 2-29 -06 tablet by it y of e 00:00: 05:59 mouth in [place] (AUGMENTIN) 00 :00 the Medical 875-125 mg morning Branch per tablet and 1 tablet in the evening. Do all this for 7 days. amoxicillin 2021-10- No [id number] 1{tbl} Take 1 [facility] -clavulanat 2-29 -06 tablet by it y of e 00:00: 05:59 mouth in [place] (AUGMENTIN) 00 :00 the Medical 875-125 mg morning Branch per tablet and 1 tablet in the evening. Do all this for 7 days. amoxicillin 2021-10- No [id number] 1{tbl} Take 1 [facility] -clavulanat 2-29 -06 tablet by it y of e 00:00: 05:59 mouth in [place] (AUGMENTIN) 00 :00 the Medical 875-125 mg morning Branch per tablet and 1 tablet in the evening. Do all this for 7 days. amoxicillin 2021-10- No [id number] 1{tbl} Take 1 [facility] -clavulanat 2-29 -06 tablet by it y of e 00:00: 05:59 mouth in [place] (AUGMENTIN) 00 :00 the Medical 875-125 mg morning Branch per tablet and 1 tablet in the evening. Do all this for 7 days. amoxicillin 2021-10- No [id number] 1{tbl} Take 1 [facility] -clavulanat 2-29 01-06 tablet by it y of e 00:00: 05:59 mouth in [place] (AUGMENTIN) 00 :00 the Medical 875-125 mg morning Branch per tablet and 1 tablet in the evening. Do all this for 7 days. amoxicillin 2021-10- No [id number] 1{tbl} Take 1 [facility] -clavulanat 2-29 01-06 tablet by it y of e 00:00: 05:59 mouth in [place] (AUGMENTIN) 00 :00 the Medical 875-125 mg morning Branch per tablet and 1 tablet in the evening. Do all this for 7 days. amoxicillin 2021-10- No [id number] 1{tbl} Take 1 [facility] -clavulanat 2-29 01-06 tablet by it y of e 00:00: 05:59 mouth in [place] (AUGMENTIN) 00 :00 the Medical 875-125 mg morning Branch per tablet and 1 tablet in the evening. Do all this for 7 days. amoxicillin 2021-10- No [id number] 1{tbl} Take 1 [facility] -clavulanat 2-29 01-06 tablet by it y of e 00:00: 05:59 mouth in [place] (AUGMENTIN) 00 :00 the Medical 875-125 mg morning Branch per tablet and 1 tablet in the evening. Do all this for 7 days. amoxicillin 2021-10- No [id number] 1{tbl} Take 1 [facility] -clavulanat 2-29 01-06 tablet by it y of e 00:00: 05:59 mouth in [place] (AUGMENTIN) 00 :00 the Medical 875-125 mg morning Branch per tablet and 1 tablet in the evening. Do all this for 7 days. amoxicillin 2021-10- No [id number] 1{tbl} Take 1 [facility] -clavulanat 2-29 01-06 tablet by it y of e 00:00: 05:59 mouth in [place] (AUGMENTIN) 00 :00 the Medical 875-125 mg morning Branch per tablet and 1 tablet in the evening. Do all this for 7 days. amoxicillin 2021-10- No [id number] 1{tbl} Take 1 [facility] -clavulanat 2-29 01-06 tablet by it y of e 00:00: 05:59 mouth in [place] (AUGMENTIN) 00 :00 the Medical 875-125 mg morning Branch per tablet and 1 tablet in the evening. Do all this for 7 days. amoxicillin 2021-10- No [id number] 1{tbl} Take 1 [facility] -clavulanat 2-29 01-06 tablet by it y of e 00:00: 05:59 mouth in [place] (AUGMENTIN) 00 :00 the Medical 875-125 mg morning Branch per tablet and 1 tablet in the evening. Do all this for 7 days. amoxicillin 2021-10- No [id number] 1{tbl} Take 1 [facility] -clavulanat 2-29 01-06 tablet by it y of e 00:00: 05:59 mouth in [place] (AUGMENTIN) 00 :00 the Medical 875-125 mg [...] ity of 10-100 mg/5 00:00: 00:00 at [place] mL oral 00 :00 bedtime. Medical solution Indication Branc h s: cough predniSONE 2021-10- No [id number] 40mg Take 2 [facility] 20 mg 2-29 12-29 tablets by ity of tablet 00:00: 00:00 mouth in [place] 00 :00 the Medical morning Branch for 5 days. codeine-gua 2021-10- No 5mL Take 5 mL [facility] ifenesin 2-29 12-29 by mouth ity of 10-100 mg/5 00:00: 00:00 every 6 [place] mL oral 00 :00 (six) Medical solution hours as Branch needed for Cough. Indication s: cough predniSONE 2021-10- No [id number] 40mg Take 2 [facility] 20 mg 2-29 12-29 tablets by ity of tablet 00:00: 00:00 mouth in [place] 00 :00 the Medical morning Branch for 5 days. codeine-gua 2021-10- No 5mL Take 5 mL [facility] ifenesin 2-29 12-29 by mouth ity of 10-100 mg/5 00:00: 00:00 every 6 [place] mL oral 00 :00 (six) Medical solution hours as Branch needed for Cough. Indication s: cough predniSONE 2021-10- No [id number] 40mg Take 2 [facility] 20 mg 2-29 12-29 tablets by ity of tablet 00:00: 00:00 mouth in [place] 00 :00 the Medical morning Branch for 5 days. codeine-gua 2021-10- No 5mL Take 5 mL [facility] ifenesin 2-29 12-29 by mouth ity of 10-100 mg/5 00:00: 00:00 every 6 [place] mL oral 00 :00 (six) Medical solution hours as Branch needed for Cough. Indication s: cough predniSONE 2021-10 No [id number] 40mg Take 2 [facility] 20 mg 2-29 12-29 tablets by ity of tablet 00:00: 00:00 mouth in [place] 00 :00 the [facility] [place] [facility] morning Branch for 5 days. codeine-gua 2021-10- No 5mL Take 5 mL [facility] ifenesin 2-29 12-29 by mouth ity of 10-100 mg/5 00:00: 00:00 every 6 [place] mL oral 00 :00 (six) Medical solution hours as Branch needed for Cough. Indication s: cough predniSONE 2021-10 No [id number] 40mg Take 2 [facility] 20 mg 2-29 12-29 tablets by ity of tablet 00:00: 00:00 mouth in [place] 00 :00 the Medical morning Branch for 5 days. codeine-gua 2021-10- No 5mL Take 5 mL [facility] ifenesin 2-29 12-29 by mouth ity of 10-100 mg/5 00:00: 00:00 every 6 [place] mL oral 00 :00 (six) Medical solution hours as Branch needed for Cough. Indication s: cough predniSONE 2021-10- No [id number] 40mg Take 2 [facility] 20 mg 2-29 12-29 tablets by ity of tablet 00:00: 00:00 mouth in [place] 00 :00 the Medical morning Branch for 5 days. codeine-gua 2021-10- No 5mL Take 5 mL [facility] ifenesin 2-29 -29 by mouth ity of 10-100 mg/5 00:00: 00:00 every 6 [place] mL oral 00 :00 (six) Medical solution hours as Branch needed for Cough. Indication s: cough predniSONE 2021-10- No [id number] 40mg Take 2 [facility] 20 mg 2-29 12-29 tablets by ity of tablet 00:00: 00:00 mouth in [place] 00 :00 the Medical morning Branch for 5 days. QUEtiapine 2021-10 Yes quetiapine M ethodi (SEROquel) 2-[address] 100 MG 00:00: tablet [facility] tablet 00 l QUEtiapine 2021-10 Yes quetiapine M ethodi (SEROquel) 2-[address] 100 MG 00:00: tablet [facility] tablet 00 l Quetiapine 2021-10 Yes [id number] 100mg Take 1 K elsey Fumarate 2-27 tablet Seybold 100 MG oral 00:00: (100 mg - Tablet 00 total) by Externa mouth l nightly Quetiapine 2021-10 Yes [id number] 100mg Take 1 K elsey Fumarate 2-27 tablet [place]bold 100 MG oral 00:00: (100 mg - Tablet 00 total) by Externa mouth l nightly Quetiapine 2021-10 Yes [id number] 100mg Take 1 K elsey Fumarate 2-27 tablet Seybold 100 MG oral 00:00: (100 mg - Tablet 00 total) by Externa mouth l nightly Quetiapine 2021-10 Yes [id number] 100mg Take 1 K elsey Fumarate 2-27 tablet [place]bold 100 MG oral 00:00: (100 mg - Tablet 00 total) by Externa mouth l nightly Quetiapine 2021-10 Yes [id number] 100mg Take 1 K elsey Fumarate 2-27 tablet [place] 100 MG oral 00:00: (100 mg - Tablet 00 total) by Externa mouth l nightly Quetiapine 2021-10 Yes [id number] 100mg Take 1 K elsey Fumarate 2-27 tablet [place] 100 MG oral 00:00: (100 mg - Tablet 00 total) by Externa mouth l nightly Quetiapine 2021-10 Yes [id number] 100mg Take 1 K elsey Fumarate 2-27 [...] 14:03: daily - Tablet 49 Externa l carvediloL 2021-10 Yes carvedilol M ethodi (COREG) 2-[address] 12.5 MG 00:00: tablet [facility] tablet 00 l carvediloL 2021-10 Yes carvedilol M ethodi (COREG) 2-[address] 12[address]5 MG 00:00: tablet [facility] tablet 00 l Quetiapine 2021-10 Yes [id number] 100mg Take 1 K elsey Fumarate 2-19 tablet [place] 100 MG oral 00:00: (100 mg - Tablet 00 total) by Externa mouth l nightly Carvedilol 2021-10 Yes [id number] 12.5mg Take 1 Reema 12.5 MG 2-19 tablet [place] oral Tablet 00:00: (12.5 mg - 00 total) by Externa mouth in l the morning and 1 tablet (12.5 mg total) in the evening. Take with meals. Methocarbam 2021-10 Yes [id number] 750mg QD Take 1 Reema ol 750 MG 2-19 tablet [place] oral Tablet 00:00: (750 mg - 00 total) by Externa mouth l daily as needed (muscle spasm) Carvedilol 2021-10 Yes [id number] 12.5mg Take 1 Reema 12.5 MG 2-19 tablet [place] oral Tablet 00:00: (12.5 mg - 00 total) by Externa mouth in l the morning and 1 tablet (12.5 mg total) in the evening. Take with meals. Methocarbam 2021-10 Yes [id number] 750mg QD Take 1 Reema ol 750 MG 2-19 tablet [place] oral Tablet 00:00: (750 mg - 00 total) by Externa mouth l daily as needed (muscle spasm) Carvedilol 2021-10 Yes [id number] 12.5mg Take 1 Reema 12.5 MG 2-19 tablet [place] oral Tablet 00:00: (12.5 mg - 00 total) by Externa mouth in l the morning and 1 tablet (12.5 mg total) in the evening. Take with meals. Carvedilol 2021-10 Yes [id number] 12.5mg Take 1 Reema 12.5 MG 2-19 tablet [place] oral Tablet 00:00: (12.5 mg - 00 total) by Externa mouth in l the morning and 1 tablet (12.5 mg total) in the evening. Take with meals. Carvedilol 2021-10 Yes [id number] 12.5mg Take 1 Reema 12.5 MG 2-19 tablet Seybold oral Tablet 00:00: (12.5 mg - 00 total) by Externa mouth in l the morning and 1 tablet (12.5 mg total) in the evening. Take with meals. Carvedilol 2021-10 Yes [id number] 12.5mg Take 1 Reema 12.5 MG 2-19 tablet Seybold oral Tablet 00:00: (12.5 mg - 00 total) by Externa mouth in l the morning and 1 tablet (12.5 mg total) in the evening. Take with meals. Carvedilol 2021-10 Yes [id number] 12.5mg Take 1 Reema 12.5 MG 2-19 tablet Seybold oral Tablet 00:00: (12.5 mg - 00 total) by Externa mouth in l the morning and 1 tablet (12.5 mg total) in the evening. Take with meals. Carvedilol 2021-10 Yes [id number] 12.5mg Take 1 Reema 12.5 MG 2-19 tablet [place] oral Tablet 00:00: (12.5 mg - 00 total) by Externa mouth in l the morning and 1 tablet (12.5 mg total) in the evening. Take with meals. Methocarbam 2021-10- No [id number] 750mg QD Take 1 Reema ol 750 MG 2-19 -24 tablet [place] oral Tablet 00:00: 00:00 (750 mg - 00 :00 total) by Externa mouth l daily as needed (muscle spasm) Clonazepam 2021-10 Yes [id number] .125mg Q.5D Take 1 Reema 0.125 MG 2-16 tablet [place] oral TABLET 00:00: (0.125 mg - DISPERSIBLE 00 total) by Ext mery mouth 2 l times daily as needed Insulin 2021-10 Yes [id number] 50 units K elsey Glargine 2-16 sc every [place] (Lantus 00:00: day - SoloStar) 00 Externa 100 UNIT/ML l subcutaneou s Solution Pen-injecto r Insulin 2021-10 Yes [id number] 50 units K elsey Glargine 2-16 sc every [place] (Lantus 00:00: day - SoloStar) 00 Externa 100 UNIT/ML l subcutaneou s Solution Pen-injecto r Insulin 2021-10 Yes [id number] 50 units K elsey Glargine 2-16 sc every [place] (Lantus 00:00: day - SoloStar) 00 Externa 100 UNIT/ML l subcutaneou s Solution Pen-injecto r Aspirin 81 2021-10 Yes 81mg Take 81 mg K elsey MG oral 2-12 by mouth Seybold Chewable 14:25: daily - Tablet 33 Externa l Insulin Pen 2021-10 Yes [id number] Takes Reema Needle 31G 2-12 insulin Seybol d X 5 MM does 00:00: once daily - not apply 00 Externa Misc l Metformin 2021-10 Yes [id number] 1000mg Take 1 Reema HCl 1000 MG 2-12 tablet Seybol d oral Tablet 00:00: (1,000 mg - 00 total) by Externa mouth in l the morning and 1 tablet (1,000 mg total) in the evening. Take with meals. Insulin 2021-10 Yes [id number] Takes up K elsey Aspart 2-12 to 14 [place] (NovoLOG 00:00: units SQ - FlexPen) 00 TID before Exter na 100 UNIT/ML major l subcutaneou meals s Solution Pen-injecto r Glucose 2021-10 Yes [id number] USE 5 [place] ey Blood 2-12 TIMES [place] (Accu-Chek 00:00: DAILY - Guide) in 00 NEEDED Exter na vitro Strip DIRECTED l Hydrocortis 2021-10 Yes [id number] Takes 3 Remea one 5 MG 2-12 tablets po Seybo ld oral Tablet 00:00: Q AM and 1 - 00 tablet po Externa Q PM l Empaglifloz 2021-10 Yes [id number] 1 tablet Reema in 2-12 po Q daily Sey[place] (Jardiance) 00:00: - 10 MG oral 00 Externa Tablet l Insulin Pen 2021-10 Yes [id number] Takes Reema Needle 31G 2-12 insulin Seybol d X 5 MM does 00:00: once daily - not apply 00 Externa Misc l Metformin 2021-10 Yes [id number] 1000mg Take 1 Reema HCl 1000 MG 2-12 tablet Seybol d oral Tablet 00:00: (1,000 mg - 00 total) by Externa mouth in l the morning and 1 tablet (1,000 mg total) in the evening. Take with meals. Insulin 2021-10 Yes [id number] Takes up K elsey Aspart 2-12 to 14 [place] (NovoLOG 00:00: units SQ - FlexPen) 00 TID before Exter na 100 UNIT/ML major l subcutaneou meals s Solution Pen-injecto r Glucose 2021-10 Yes [id number] USE 5 [place] ey Blood 2-12 TIMES Seybold (Accu-Chek 00:00: DAILY - Guide) in 00 NEEDED Exter na vitro Strip DIRECTED l Hydrocortis 2021-10 Yes [id number] Takes 3 Reema one 5 MG 2-12 tablets po Seybo ld oral Tablet 00:00: Q AM and 1 - 00 tablet po Externa Q PM l Empaglifloz 2021-10 Yes [id number] 1 tablet Reema in 2-12 po Q daily Sey[facility] (Jardiance) 00:00: - 10 MG oral 00 Externa Tablet l Insulin Pen 2021-10 Yes [id number] Takes Reema Needle 31G 2-12 insulin Seybol d X 5 MM does 00:00: once daily - not apply 00 Externa Misc l Metformin 2021-10 Yes [id number] 1000mg Take 1 Reema HCl 1000 MG 2-12 tablet Seybol d oral Tablet 00:00: (1,000 mg - 00 total) by Externa mouth in l the morning and 1 tablet (1,000 mg total) in the evening. Take with meals. Insulin 2021-10 Yes [id number] Takes up K elsey Aspart 2-12 to 14 [place] (NovoLOG 00:00: units SQ - FlexPen) 00 TID before Exter na 100 UNIT/ML major l subcutaneou meals s Solution Pen-injecto r Glucose 2021-10 Yes [id number] USE 5 [place] ey Blood 2-12 TIMES Seybold (Accu-Chek 00:00: DAILY - Guide) in 00 NEEDED Exter na vitro Strip DIRECTED l Hydrocortis 2021-10 Yes [id number] Takes 3 Reema one 5 MG 2-12 tablets po Seybo ld oral Tablet 00:00: Q AM and 1 - 00 tablet po Externa Q PM l Empaglifloz 2021-10 Yes [id number] 1 tablet Reema in 2-12 po Q daily Sey[facility] (Jardiance) 00:00: - 10 MG oral 00 Externa Tablet l Insulin 2021-10 Yes [id number] Takes up K elsey Aspart 2-12 to 14 [place] (NovoLOG 00:00: units SQ - FlexPen) 00 TID before Exter na 100 UNIT/ML major l subcutaneou meals s Solution Pen-injecto r Glucose 2021-10 Yes [id number] USE 5 [place] ey Blood 2-12 TIMES Seybold (Accu-Chek 00:00: DAILY - Guide) in 00 NEEDED Exter na vitro Strip DIRECTED l Insulin 2021-10 Yes [id number] Takes up K elsey Aspart 2-12 to 14 [place] (NovoLOG 00:00: units SQ - FlexPen) 00 TID before Exter na 100 UNIT/ML major l subcutaneou meals s Solution Pen-injecto r Glucose 2021-10 Yes [id number] USE 5 [place] ey Blood 2-12 TIMES Seybold (Accu-Chek 00:00: DAILY - Guide) in 00 NEEDED Exter na vitro Strip DIRECTED l Insulin 2021-10 Yes [id number] Takes up K elsey Aspart 2-12 to 14 [place] (NovoLOG 00:00: units SQ - FlexPen) 00 TID before Exter na 100 UNIT/ML major l subcutaneou meals s Solution Pen-injecto r Glucose 2021-10 Yes [id number] USE 5 [place] ey Blood 2-12 TIMES Seybold (Accu-Chek 00:00: DAILY - Guide) in 00 NEEDED Exter na vitro Strip DIRECTED l Insulin 2021-10 Yes [id number] Takes up K elsey Aspart 2-12 to 14 [place] (NovoLOG 00:00: units SQ - FlexPen) 00 TID before Exter na 100 UNIT/ML major l subcutaneou meals s Solution Pen-injecto r Glucose 2021-10 Yes [id number] USE 5 [place] ey Blood 2-12 TIMES Seybold (Accu-Chek 00:00: DAILY - Guide) in 00 NEEDED Exter na vitro Strip DIRECTED l Insulin 2021-10 Yes [id number] Takes up K elsey Aspart 2-12 to 14 [place] (NovoLOG 00:00: units SQ - FlexPen) 00 TID before Exter na 100 UNIT/ML major l subcutaneou meals s Solution Pen-injecto r Glucose 2021-10 Yes [id number] USE 5 [place] ey Blood 2-12 TIMES Seybold (Accu-Chek 00:00: DAILY - Guide) in 00 NEEDED Exter na vitro Strip DIRECTED l Insulin 2021-10 Yes [id number] Takes up K elsey Aspart 2-12 to 14 [place] (NovoLOG 00:00: units SQ - FlexPen) 00 TID before Exter na 100 UNIT/ML major l subcutaneou meals s Solution Pen-injecto r Glucose 2021-10 Yes [id number] USE 5 [place] ey Blood 2-12 TIMES Seybold (Accu-Chek 00:00: DAILY - Guide) in 00 NEEDED Exter na vitro Strip DIRECTED l Insulin Pen 2021-10- No [id number] Takes Reema Needle 31G 2-12 -24 insulin Seybo ld X 5 MM does 00:00: 00:00 once daily - not apply 00 :00 Externa Misc l Empaglifloz 2021-10- No [id number] 1 tablet Reema in 2-12 01-24 po Q daily Seybold (Jardiance) 00:00: 00:00 - 10 MG oral 00 :00 Externa Tablet l Mupirocin 2021-10 Yes [id number] APPLY THIN Reema (BACTROBAN) 2-06 LAYER TO Seyb old 2 % apply 00:00: OPEN SORES - externally 00 ON TRUNK Exter na Ointment AND l EXTREMITIE S TWICE DAILY. Clobetasol 2021-10 Yes [id number] Ke l[place] Propionate 2-06 Seybold 0.05 % 00:00: - apply 00 Externa externally l Ointment Mupirocin 2021-10 Yes [id number] APPLY THIN Reema (BACTROBAN) 2-06 LAYER TO Seyb old 2 % apply 00:00: OPEN SORES - externally 00 ON TRUNK Exter na Ointment AND l EXTREMITIE S TWICE DAILY. Clobetasol 2021-10 Yes [id number] Ke l[place] Propionate 2-06 Seybold 0.05 % 00:00: - apply 00 Externa externally l Ointment Mupirocin 2021-10 Yes [id number] APPLY THIN Reema (BACTROBAN) 2-06 LAYER TO Seyb old 2 % apply 00:00: OPEN SORES - externally 00 ON TRUNK Exter na Ointment AND l EXTREMITIE S TWICE DAILY. Clobetasol 2021-10 Yes [id number] Ke l[place] Propionate 2-06 Seybold 0.05 % 00:00: - apply 00 Externa externally l Ointment Clobetasol 2021-10 Yes [id number] Ke l[place] Propionate 2-06 Seybold 0.05 % 00:00: - apply 00 Externa externally l Ointment Clobetasol 2021-10 Yes [id number] [place] l[place] Propionate 2-06 Seybold 0.05 % 00:00: - apply 00 Externa externally l Ointment Clobetasol 2021-10 Yes [id number] Ke l[place] Propionate 2-06 Seybold 0.05 % 00:00: - apply 00 Externa externally l Ointment Clobetasol 2021-10 Yes [id number] Ke l[place] Propionate 2-06 Seybold 0.05 % 00:00: - apply 00 Externa externally l Ointment Clobetasol 2021-10 Yes [id number] [place] l[place] Propionate 2-06 Seybold 0.05 % 00:00: - apply 00 Externa externally l Ointment Clobetasol 2021-10 Yes [id number] Ke l[place] Propionate 2-06 Seybold 0.05 % 00:00: - apply 00 Externa externally l Ointment Mupirocin 2021-10- No [id number] APPLY THIN Reema (BACTROBAN) 2-06 -24 LAYER TO Sey bold 2 % apply 00:00: 00:00 OPEN SORES - externally 00 :00 ON TRUNK Exter na Ointment AND l EXTREMITIE S TWICE DAILY. Valacyclovi 2021-10 Yes [id number] TAKE 1 Reema r HCl 500 2-05 TABLET(500 Seyb old MG oral 00:00: MG) BY - Tablet 00 MOUTH Externa DAILY l NEEDED FOR HERPES OR BREAKOUTS Valacyclovi 2021-10 Yes [id number] TAKE 1 Reema r HCl 500 2-05 TABLET(500 Seyb old MG oral 00:00: MG) BY - Tablet 00 MOUTH Externa DAILY l NEEDED FOR HERPES OR BREAKOUTS Valacyclovi 2021-10 Yes [id number] TAKE 1 Reema r HCl 500 2-05 TABLET(500 Seyb old MG oral 00:00: MG) BY - Tablet 00 MOUTH Externa DAILY l NEEDED FOR HERPES OR BREAKOUTS Accu-Chek 2021-10- No USE 6 Reema Guide in 2-05 12-12 TIMES Seybold vitro Strip 00:00: 00:00 DAILY - 00 :00 NEEDED Externa DIRECTED l Clonazepam 2021-10 Yes [id number] .125mg Q.5D Take 1 Reema 0.125 MG 1-28 tablet Seybold oral TABLET 00:00: (0.125 mg - DISPERSIBLE 00 total) by Ext mery mouth 2 l times daily as needed Ibuprofen 2021-10 Yes [id number] 800mg [id number] Take 1 Reema 800 MG oral 1-28 [id number] tablet Seybold Tablet 00:00: 3D (800 mg - 00 total) by Externa mouth l every 8 hours as needed for pain Ibuprofen 2021-10 Yes [id number] 800mg [id number] Take 1 Reema 800 MG oral 1-28 [id number] tablet Seybold Tablet 00:00: 3D (800 mg - 00 total) by Externa mouth l every 8 hours as needed for pain Ibuprofen 2021-10 Yes [id number] 800mg Q.[id number] Take 1 Reema 800 MG oral 1-28 [id number] tablet Seybold Tablet 00:00: 3D (800 mg - 00 total) by Externa mouth l every 8 hours as needed for pain Ibuprofen 2021-10 Yes [id number] 800mg Q.[id number] Take 1 Reema 800 MG oral 1-28 [id number] tablet Seybold Tablet 00:00: 3D (800 mg - 00 total) by Externa mouth l every 8 hours as needed for pain Ibuprofen 2021-10 Yes [id number] 800mg Q.[id number] Take 1 Reema 800 MG oral 1-28 [id number] tablet Seybold Tablet 00:00: 3D (800 mg - 00 total) by Externa mouth l every 8 hours as needed for pain Ibuprofen 2021-10 Yes [id number] 800mg Q.[id number] Take 1 Reema 800 MG oral 1-28 [id number] tablet Seybold Tablet 00:00: 3D (800 mg - 00 total) by Externa mouth l every 8 hours as needed for pain Ibuprofen 2021-10 Yes [id number] 800mg Q.[id number] Take 1 Reema 800 MG oral 1-28 [id number] tablet Seybold Tablet 00:00: 3D (800 mg - 00 total) by Externa mouth l every 8 hours as needed for pain Ibuprofen 2021-10 Yes [id number] 800mg Q.[id number] Take 1 Reema 800 MG oral 1-28 [id number] tablet Seybold Tablet 00:00: 3D (800 mg - 00 total) by Externa mouth l every 8 hours as needed for pain Aspirin 81 2021-10 Yes 81mg Take 81 mg K elsey MG oral 1-18 by mouth Seybold Chewable 14:11: daily - Tablet 52 Externa l Carvedilol 2021-10 Yes [id number] 25mg Take 2 K elsey 12.5 MG [...] SQ Solution Pen-Injecto r Metformin 2021-10 Yes [id number] 1000mg Take 1 Reema HCl 1000 MG 1-18 tablet Seybol d oral Tablet 00:00: (1,000 mg - 00 total) by Externa mouth l daily (with breakfast) Insulin 2021-10 Yes [id number] 40 units K elsey Glargine 1-18 sc every Seybold (Lantus 00:00: day - SoloStar) 00 Externa 100 UNIT/ML l subcutaneou s Solution Pen-injecto r Carvedilol 2021-10 Yes [id number] 25mg Take 2 K elsey 12.5 MG 1-18 tablets Seybold oral Tablet 00:00: (25 mg - 00 total) by Externa mouth in l the morning and 2 tablets (25 mg total) in the evening. Take with meals. Insulin 2021-10 Yes [id number] 40 units K elsey Glargine 1-18 sc every Seybold (Lantus 00:00: day - SoloStar) 00 Externa 100 UNIT/ML l subcutaneou s Solution Pen-injecto r Carvedilol 2021-10- No [id number] 25mg Take 2 Reema 12.5 MG 1-18 12-19 tablets Seybold oral Tablet 00:00: 00:00 [...] SQ Solution Pen-Injecto r Metformin 2021-10- No [id number] 1000mg Take 1 Reema HCl 1000 MG 1-18 12-12 tablet Seybo ld oral Tablet 00:00: 00:00 (1,000 mg - 00 :00 total) by Externa mouth l daily (with breakfast) Estradiol 2021-10 Yes [id number] 10ug Insert 1 Univers (YUVAFEM) 1-17 tablet ity of 10 mcg 00:00: into [place] tablet 00 vagina 2 Medical (two) Branch times per week. Estradiol 2021-10 Yes [id number] 10ug Insert 1 Univers (YUVAFEM) 1-17 tablet [...] Medical cream times per Branch week. estradioL 2021- Yes 1g Insert 1 g Un fernanda 0.01 % (0.1 1-17 into ity of mg/gram) 00:00: vagina 2 [place] vaginal 00 (two) Medical cream times per Branch week. estradioL 2021- Yes 1g Insert 1 g Un fernanda [...] into ity of mg/gram) 00:00: vagina 2 [place] vaginal (two) Medical cream times per Branch week. estradioL 2021-1 Yes 1g Insert 1 g Un fernanda 0.01 % (0.1 1-17 into ity of mg/gram) 00:00: vagina 2 [place] vaginal (two) Medical cream times per Branch week. estradioL 2-1 Yes 1g Insert 1 g Un fernanda 0.01 % (0.1 1-17 into ity of mg/gram) 00:00: vagina 2 [place] vaginal (two) Medical cream times per Branch week. estradioL 2-1 Yes 1g Insert 1 g Un fernanda 0.01 % (0.1 1-17 into ity of mg/gram) 00:00: vagina 2 [place] vaginal (two) Medical cream times per Branch [...] into ity of mg/gram) 00:00: vagina 2 [place] vaginal 00 (two) Medical cream times per [...] into ity of mg/gram) 00:00: vagina 2 [place] vaginal 00 (two) Medical cream times per Branch week. Estradiol 2021-10- No [id number] 10ug Insert 1 Univers (YUVAFEM) 1-17 11-15 tablet ity of 10 mcg 00:00: 00:00 into [place] tablet 00 :00 vagina 2 Medical (two) Branch times per week. Clonazepam 2021-10 Yes [id number] .125mg Q.5D Take 1 Reema 0.125 MG 1-09 tablet Seybold oral TABLET 00:00: (0.125 mg - DISPERSIBLE 00 total) by Ext mery mouth 2 l times daily as needed Levothyroxi 2021-10 Yes [id number] 137ug Take 1 Reema ne Sodium 1-07 tablet Seybold 137 MCG 00:00: (137 mcg - oral Tablet 00 total) by Ext mery mouth l daily Quetiapine 2021-10 Yes [id number] 100mg Take 1 K elsey Fumarate 1-07 tablet Seybold 100 MG oral 00:00: (100 mg - Tablet 00 total) by Externa mouth l nightly Levothyroxi 2021-10 Yes [id number] 137ug Take 1 Reema ne Sodium 1-07 tablet Seybold 137 MCG 00:00: (137 mcg - oral Tablet 00 total) by Ext mery mouth l daily Quetiapine 2021-10 Yes [id number] 100mg Take 1 K elsey Fumarate 1-07 tablet Seybold 100 MG oral 00:00: (100 mg - Tablet 00 total) by Externa mouth l nightly Levothyroxi 2021-10 Yes [id number] 137ug Take 1 Reema ne Sodium 1-07 tablet Seybold 137 MCG 00:00: (137 mcg - oral Tablet 00 total) by Ext mery mouth l daily Levothyroxi 2021-10 Yes [id number] 137ug Take 1 Reema ne Sodium 1-07 tablet Seybold 137 MCG 00:00: (137 mcg - oral Tablet total) by Ext mery mouth l daily Levothyroxi 2021-10 Yes [id number] 137ug Take 1 Reema ne Sodium 1-07 tablet Seybold 137 MCG 00:00: (137 mcg - oral Tablet 00 total) by Ext mery mouth l daily Levothyroxi 2021-10 Yes [id number] 137ug Take 1 Reema ne Sodium 1-07 tablet Seybold 137 MCG 00:00: (137 mcg - oral Tablet 00 total) by Ext mery mouth l daily Levothyroxi 2021-10 Yes [id number] 137ug Take 1 Reema ne Sodium 1-07 tablet Seybold 137 MCG 00:00: (137 mcg - oral Tablet 00 total) by Ext mery mouth l daily Levothyroxi 2021-10 Yes [id number] 137ug Take 1 Reema ne Sodium 1-07 tablet Seybold 137 MCG 00:00: (137 mcg - oral Tablet 00 total) by Ext mery mouth l daily Levothyroxi 2021-10 Yes [id number] 137ug Take 1 Reema ne Sodium 1-07 tablet Seybold 137 MCG 00:00: (137 mcg - oral Tablet 00 total) by Ext mery mouth l daily Levothyroxi 2021-10 Yes [id number] 137ug Take 1 Reema ne Sodium 1-07 tablet Seybold 137 MCG 00:00: (137 mcg - oral Tablet 00 total) by Ext mery mouth l daily Quetiapine 2021-10- No [id number] 100mg Take 1 Reema Fumarate 07 12-19 tablet Seybold 100 MG oral 00:00: 00:00 (100 mg - Tablet 00 :00 total) by Externa mouth l nightly Hydrocortis 2021-10 Yes [id number] 20 mg Reema one 10 MG 1-03 every am Seybol d oral Tablet 00:00: and 10 mg - 00 every Externa night l Valacyclovi 2021-10 Yes [id number] 500mg QD Take 1 Reema r HCl 500 03 tablet Seybold MG oral 00:00: (500 mg - Tablet total) by Externa mouth l daily as needed (Herpes breakout) Hydrocortis 2021-10 Yes [id number] 20 mg Reema one 10 MG 1-03 every am Seybol d oral Tablet 00:00: and 10 mg - 00 every Externa night l Hydrocortis 2021-10 Yes [id number] 20 mg Reema one 10 MG 1-03 every am Seybol d oral Tablet 00:00: and 10 mg - 00 every Externa night l Hydrocortis 2021-10 Yes [id number] 20 mg Reema one 10 MG 1-03 every am Seybol d oral Tablet 00:00: and 10 mg - 00 every Externa night l Hydrocortis 2021-10 Yes [id number] 20 mg Reema one 10 MG 1-03 every am Seybol d oral Tablet 00:00: and 10 mg - 00 every Externa night l OZEMPIC 2021-10 Yes [id number] .5mg Inject 0.5 Reema (0.25 or 0-27 mg into Seybold 0.5 00:00: the skin - mg/dose) 2 00 once a Externa mg/1.5 mL week l SQ Solution Pen-Injecto r OZEMPIC 2021-10- No [id number] .5mg Inject 0.5 Reema (0.25 or 0-27 [...] needed in the evening. Hydrocortis 2021-10 Yes [id number] 20 mg Reema one 10 MG 0-21 every am Seybol d oral Tablet 00:00: and 10 mg - 00 every Externa night l Valacyclovi 2021-10 Yes [id number] 500mg QD Take 1 Reema r HCl 500 0-21 tablet Seybold MG oral 00:00: (500 mg - Tablet 00 total) by Externa mouth l daily as needed (Herpes breakout) Simvastatin 2021-10 Yes [id number] 20mg Take 1 Reema 20 MG oral 0-21 tablet (20 Sey bold Tablet 00:00: mg total) - 00 by mouth Externa nightly l Quetiapine 2021-10 Yes [id number] 100mg Take 1 K elsey Fumarate 0-21 tablet Seybold 100 MG oral 00:00: (100 mg - Tablet 00 total) by Externa mouth l nightly Metformin 2021-10 Yes [id number] 1000mg Take 1 Reema HCl 1000 MG 0-21 tablet Seybol d oral Tablet 00:00: (1,000 mg - 00 total) by Externa mouth in l the morning and 1 tablet (1,000 mg total) in the evening. Take with meals. Insulin 2021-10 Yes [id number] 35 units Ke lsey Glargine 0-21 sc every Seybold (Lantus 00:00: day - SoloStar) 00 Externa 100 UNIT/ML l subcutaneou s Solution Pen-injecto r Furosemide 2021-10 Yes [id number] 20mg QD Take 1 Reema (Lasix) 20 0-21 tablet (20 Sey bold MG oral 00:00: mg total) - Tablet 00 by mouth Externa daily as l needed (edema) Simvastatin 2021-10 Yes [id number] 20mg Take 1 Reema 20 MG oral 0-21 tablet (20 Sey bold Tablet 00:00: mg total) - 00 by mouth Externa nightly l Furosemide 2021-10 Yes [id number] 20mg QD Take 1 Reema (Lasix) 20 0-21 tablet (20 Sey bold MG oral 00:00: mg total) - Tablet 00 by mouth Externa daily as l needed (edema) Simvastatin 2021-10 Yes [id number] 20mg Take 1 Reema 20 MG oral 0-21 tablet (20 Sey bold Tablet 00:00: mg total) - 00 by mouth Externa nightly l Furosemide 2021-10 Yes [id number] 20mg QD Take 1 Reema (Lasix) 20 0-21 tablet (20 Sey bold MG oral 00:00: mg total) - Tablet 00 by mouth Externa daily as l needed (edema) Simvastatin 2021-10 Yes [id number] 20mg Take 1 Reema 20 MG oral 0-21 tablet (20 Sey bold Tablet 00:00: mg total) - 00 by mouth Externa nightly l Furosemide 2021-10 Yes [id number] 20mg QD Take 1 Reema (Lasix) 20 0-21 tablet (20 Sey bold MG oral 00:00: mg total) - Tablet 00 by mouth Externa daily as l needed (edema) Simvastatin 2021-10 Yes [id number] 20mg Take 1 Reema 20 MG oral 0-21 tablet (20 Sey bold Tablet 00:00: mg total) - 00 by mouth Externa nightly l Furosemide 2021-10 Yes [id number] 20mg QD Take 1 Reema (Lasix) 20 0-21 tablet (20 Sey bold MG oral 00:00: mg total) - Tablet 00 by mouth Externa daily as l needed (edema) Furosemide 2021-10- No [id number] 20mg QD Take 1 Reema (Lasix) 20 0-21 01-24 tablet (20 Se ybold MG oral 00:00: 00:00 mg total) - Tablet 00 :00 by mouth Externa daily as l needed (edema) Metformin 2021-10- No [id number] 1000mg Take 1 Reema HCl 1000 MG 0-21 11-18 tablet Seybo ld oral Tablet 00:00: 00:00 (1,000 mg - 00 :00 total) by Externa mouth in l the morning and 1 tablet (1,000 mg total) in the evening. Take with meals. Insulin 2021-10- No [id number] 35 units K elsey Glargine 0-21 11-18 [...] Take 30 mg Reema HCl 30 MG 9-02 07-21 by mouth Seybo ld oral Cap DR 09:51: 00:00 daily - Particles 31 :00 Externa l Insulin Yes [id number] Takes up K elsey Glargine 9-21 to 40 Seybold (Lantus 00:00: units sc - SoloStar) 00 daily Externa 100 UNIT/ML l subcutaneou s Solution Pen-injecto r Hydrocortis Yes [id number] 30 mg Reema one 10 MG 9-20 every am Seybol d oral Tablet 00:00: and 20 mg - 00 every Externa night l HYDROcodone Yes Reema -Acetaminop 9-12 Seybold hen (NORCO) 00:00: - 5-325 MG 00 Externa oral Tablet l Quetiapine Yes Reema Fumarate 9-10 Seybold 100 MG oral 00:00: - Tablet 00 Externa l Metformin Yes [id number] 500mg Take 1 Reema HCl 500 MG 9-06 tablet Seybold oral Tablet 00:00: (500 mg - 00 total) by Externa mouth in l the morning and 1 tablet (500 mg total) in the evening. Take with meals. OZEMPIC 2021- No [id number] .25mg Inject K elsey (0.25 or 9-06 09-21 0.25 mg Seybold 0.5 00:00: 00:00 into the - mg/dose) 2 00 :00 skin once Exte rna mg/1.5 mL a week l SQ Solution Pen-Injecto r Insulin 2- No [id number] 20 units Reema Glargine 06-17 sc daily [...] Externa s Solution l Pen-injecto r NovoLOG 0 2021- No Sliding Reema FlexPen 100 9-03 [...] Externa not apply l Misc Glucose Yes [id number] Use test K elsey Blood 8-30 strips to Seybold (Accu-Chek 00:00: perform - Guide) in 00 FSBS 6 Externa vitro Strip times l daily and as needed. Glucose Yes 200{eac 200 each Zak sey Blood in 8-29 h} by other Seybold vitro Strip 00:00: route - 00 daily Use Externa test l strips to perform FSBS 6 times daily and as needed. Valacyclovi Yes 500mg Take 1 Zak sey r [...] the evening. Take with meals. Carvedilol 0 2021- No 25mg Take 1 Kay[place] ey 25 MG oral 8-23 11-18 tablet (25 Se ybold Tablet 00:00: 00:00 mg total) - 00 :00 by mouth Externa in the l morning and 1 tablet (25 mg total) in the evening. Take with meals. Levothyroxi 2021-0 Yes [id number] 137ug Take 1 Reema ne Sodium 8-10 tablet Seybold 137 MCG 00:00: (137 mcg - oral Tablet 00 total) by Ext mery mouth l daily Levothyroxi 2021-0 Yes [id number] 137ug Take 1 Reema ne Sodium 8-10 tablet Seybold 137 MCG 00:00: (137 mcg - oral Tablet 00 total) by Ext mery mouth l daily Trazodone 2021-0 Yes [id number] 50mg Take 1 K elsey HCl 50 MG 8-01 tablet (50 Seyb old oral Tablet 00:00: mg total) - 00 by mouth Externa nightly l Trazodone 2021-0 Yes [id number] 50mg Take 1 K elsey HCl 50 MG 8-01 tablet (50 Seyb old oral Tablet 00:00: mg total) - 00 by mouth Externa nightly l Trazodone 2021-0 Yes [id number] 50mg Take 1 K elsey HCl 50 MG 8-01 tablet (50 Seyb old oral Tablet 00:00: mg total) - 00 by mouth Externa nightly l Trazodone 2021-0 Yes [id number] 50mg Take 1 K elsey HCl 50 MG 8-01 tablet (50 Seyb old oral Tablet 00:00: mg total) - 00 by mouth Externa nightly l Trazodone 2021-0 Yes [id number] 50mg Take 1 K elsey HCl 50 MG 8-01 tablet (50 Seyb old oral Tablet 00:00: mg total) - 00 by mouth Externa nightly l Ibuprofen 2021-0 Yes [id number] 800mg Q.[id number] Take 1 Reema 800 MG oral 7-05 [id number] tablet Seybold Tablet 00:00: 3D (800 mg - 00 total) by Externa mouth l every 8 hours as needed for pain Ibuprofen 0 Yes [id number] 800mg Q.[id number] Take 1 Reema 800 MG oral 04-15 [id number] tablet Seybold Tablet 00:00: 3D (800 mg - 00 total) by Externa mouth l every 8 hours as needed for pain Ibuprofen 0 Yes [id number] 800mg Q.[id number] Take 1 Reema 800 MG oral 04-15 [id number] tablet Seybold Tablet 00:00: 3D (800 mg - 00 total) by Externa mouth l every 8 hours as needed for pain Cyclobenzap 2021-0 2021- No Kelse y rine HCl 10 7-05 09-21 Seybold MG oral 00:00: 00:00 - Tablet 00 :00 Externa l Insulin Pen 0 Yes [id number] Takes Reema Needle 31G 6-29 insulin Seybol d X 5 MM does 00:00: once daily - not apply 00 Externa Misc l Insulin Pen 2021-0 Yes [id number] Takes Reema Needle 31G 6-29 insulin Seybol d X 5 MM does 00:00: once daily - not apply 00 Externa Misc l Insulin Pen 2021-0 Yes [id number] Takes Reema Needle 31G 6-29 insulin Seybol d X 5 MM does 00:00: once daily - not apply 00 Externa Misc l Insulin Pen 2021-0 2021- No [id number] Takes Reema Needle 31G 6-29 12-12 insulin Seybo ld X 5 MM does 00:00: 00:00 once daily - not apply 00 :00 Externa Misc l Fluoxetine 2021-0 Yes [id number] Ke lsey HCl 20 MG 6-27 Seybold oral 00:00: - Capsule 00 Externa l Aspirin 81 2021-0 Yes 81mg Take 81 mg K elsey MG oral 6-06 by mouth Seybold Chewable 14:50: daily Tablet 32 Clonazepam 2021-0 Yes .125mg Q.5D Take 0.125 Reema 0.125 MG 6-06 mg by Seybold oral TABLET 14:50: mouth as DISPERSIBLE 32 needed in the morning and 0.125 mg as needed in the evening. Quetiapine Yes [id number] 100mg Take 1 Reema Fumarate 6-01 tablet [...] Chewable 08:17: daily Tablet 16 Insulin Yes [id number] 12U Inject 12 Reema Glargine 5-17 units into Seybo ld (Lantus 00:00: the skin SoloStar) 00 daily 100 UNIT/ML subcutaneou s Solution Pen-injecto r Insulin Yes [id number] 12U Inject 12 Reema Glargine 5-17 units into Seybo ld (Lantus 00:00: the skin SoloStar) 00 daily 100 UNIT/ML subcutaneou s Solution Pen-injecto r VALACYCLOVI Yes [id number] TAKE ONE Univers R 500 mg 5-16 TABLET BY ity of tablet 00:00: MOUTH [place] DAILY Medical Branch VALACYCLOVI Yes [id number] TAKE ONE Univers R 500 mg 5-16 TABLET BY ity of tablet 00:00: MOUTH [place] DAILY Medical Branch VALACYCLOVI Yes [id number] TAKE ONE Univers R 500 mg 5-16 TABLET BY ity of tablet 00:00: MOUTH [place] DAILY Medical Branch VALACYCLOVI Yes [id number] TAKE ONE Univers R 500 mg 5-16 TABLET BY ity of tablet 00:00: MOUTH [place] DAILY Medical Branch VALACYCLOVI Yes [id number] TAKE ONE Univers R 500 mg 5-16 TABLET BY ity of tablet 00:00: MOUTH [place] DAILY Medical Branch VALACYCLOVI Yes [id number] TAKE ONE Univers R 500 mg 5-16 TABLET BY ity of tablet 00:00: MOUTH DAILY Medical Branch VALACYCLOVI 2-0 Yes [id number] TAKE ONE Univers R 500 mg 5-16 TABLET BY ity of tablet 00:00: [facility] DAILY Medical Branch VALACYCLOVI 2021-0 Yes [id number] TAKE ONE Univers R 500 mg 5-16 TABLET BY ity of tablet 00:00: [facility] DAILY Medical Branch VALACYCLOVI 2021-0 Yes [id number] TAKE ONE Univers R 500 mg 5-16 TABLET BY ity of tablet 00:00: DAILY Medical Branch VALACYCLOVI 2021-0 Yes [id number] TAKE ONE Univers R 500 mg 5-16 TABLET BY ity of tablet 00:00: [facility] DAILY Medical Branch VALACYCLOVI 2021-0 Yes [id number] TAKE ONE Univers R 500 mg 5-16 TABLET BY ity of tablet 00:00: [facility] DAILY Medical Branch VALACYCLOVI 2021-0 Yes [id number] TAKE ONE Univers R 500 mg 5-16 TABLET BY ity of tablet 00:00: [facility] DAILY Medical Branch VALACYCLOVI 2021-0 Yes [id number] TAKE ONE Univers R 500 mg 5-16 TABLET BY ity of tablet 00:00: [facility] DAILY Medical Branch VALACYCLOVI 2021-0 Yes [id number] TAKE ONE Univers R 500 mg 5-16 TABLET BY ity of tablet 00:00: [facility] DAILY Medical Branch VALACYCLOVI 2021-0 Yes [id number] TAKE ONE Univers R 500 mg 5-16 TABLET BY ity of tablet 00:00: [facility] DAILY Medical Branch VALACYCLOVI 2-0 Yes [id number] TAKE ONE Univers R 500 mg 5-16 TABLET BY ity of tablet 00:00: [facility] DAILY Medical Branch VALACYCLOVI 2-0 Yes [id number] TAKE ONE Univers R 500 mg 5-16 TABLET BY ity of tablet 00:00: [facility] DAILY Medical Branch VALACYCLOVI 2021-0 Yes [id number] TAKE ONE Univers R 500 mg 5-16 TABLET BY ity of tablet 00:00: [facility] DAILY Medical Branch VALACYCLOVI 2-0 Yes [id number] TAKE ONE Univers R 500 mg 5-16 TABLET BY ity of tablet 00:00: [facility] DAILY Medical Branch VALACYCLOVI 2021-0 Yes [id number] TAKE ONE Univers R 500 mg 5-16 TABLET BY ity of tablet 00:00: DAILY Medical Branch VALACYCLOVI 2021-0 Yes [id number] TAKE ONE Univers R 500 mg 5-16 TABLET BY ity of tablet 00:00: DAILY Medical Branch VALACYCLOVI 2021-0 Yes [id number] TAKE ONE Univers R 500 mg 5-16 TABLET BY ity of tablet 00:00: DAILY Medical Branch VALACYCLOVI 2021-0 Yes [id number] TAKE ONE Univers R 500 mg 5-16 TABLET BY ity of tablet 00:00: DAILY Medical Branch VALACYCLOVI 2021-0 Yes [id number] TAKE ONE Univers R 500 mg 5-16 TABLET BY ity of tablet 00:00: [facility] DAILY Medical Branch VALACYCLOVI 2021-0 Yes [id number] TAKE ONE Univers R 500 mg 5-16 TABLET BY ity of tablet 00:00: [facility] DAILY Medical Branch VALACYCLOVI 2021-0 Yes [id number] TAKE ONE Univers R 500 mg 5-16 TABLET BY ity of tablet 00:00: [facility] DAILY Medical Branch Pantoprazol 2021-0 Yes 40mg Take 40 mg Reema e Sodium 40 5-16 by mouth Seyb old MG oral 00:00: daily Tablet 00 Delayed Response Pantoprazol 2021-0 Yes Reema e Sodium 40 5-16 Seybold MG oral 00:00: Tablet 00 Delayed Response Carvedilol 0 Yes 25mg 25 mg in Zak sey 25 MG oral 5-12 the Seybold Tablet 00:00: morning 00 and 25 mg in the evening. Take with meals. Carvedilol 2021-0 Yes Reema 25 MG oral 5-12 Seybold Tablet 00:00: 00 Levothyroxi 2021-0 Yes [id number] 137ug Take 1 Reema ne Sodium 5-05 tablet Seybold 137 MCG 00:00: (137 mcg oral Tablet 00 total) by mouth daily Levothyroxi 2021-0 Yes [id number] 137ug Take 1 Reema ne Sodium 5-05 tablet Seybold 137 MCG 00:00: (137 mcg oral Tablet 00 total) by mouth daily Quetiapine 2021-0 Yes 1{tbl} Take 1 Zak sey Fumarate [...] oral 00:00: mouth Tablet 00 daily Lantus 0 Yes 12U Inject 12 Reema [...] by mouth ity of tablet 13:15: daily. [address] desvenlafax Yes 1{tbl} Take 1 Un fernanda ine 3-24 tablet by ity of succinate 13:15: mouth [place] (PRISTIQ) 54 daily. Medical 25 mg Tb24 [...] 500 mg ity of tablet 13:15: tablet [address] aspirin 81 Yes aspirin 81 U nivers mg EC 3-24 mg ity of tablet 13:15: tablet,del [place] [address] ayed Medical release Branch Take 1 tablet every day by oral route. carvediloL Yes Coreg 25 Uni vers (COREG) 25 3-24 mg tablet ity of mg tablet 13:15: Take 1 [place] [address] tablet Medical twice a Branch day by oral route. simvastatin Yes simvastati Univers 20 mg 3-24 n 20 mg ity of tablet 13:15: tablet [address] traZODone Yes trazodone Uni vers 50 mg 3-24 50 mg ity of tablet 13:15: tablet [address] desvenlafax Yes Univer s ine 3-24 ity of succinate 13:15: [place] (PRISTIQ) 54 Medical 25 mg Tb24 Branch QUEtiapine Yes Seroquel Uni vers (SEROQUEL) 3-24 200 mg ity of 200 mg 13:15: tablet [place] tablet 54 Take 1 Medical tablet Branch twice a day by oral route. levothyroxi Yes levothyrox Univers ne 50 mcg 3-24 ine 50 mcg ity of tablet 13:15: tablet [address] aspirin 81 Yes 81mg Take 81 mg U nivers mg chewable 3-24 by mouth ity of tablet 13:15: daily. [address] desvenlafax Yes 1{tbl} Take 1 Un fernanda ine 3-24 tablet by ity of succinate 13:15: mouth [place] (PRISTIQ) 54 daily. Medical 25 mg Tb24 [...] 500 mg ity of tablet 13:15: tablet [address] aspirin 81 Yes aspirin 81 U nivers mg EC 3-24 mg ity of tablet 13:15: tablet,del [place] [address] ayed Medical release Branch Take 1 tablet every day by oral route. carvediloL Yes Coreg 25 Uni vers (COREG) 25 3-24 mg tablet ity of mg tablet 13:15: Take 1 [place] [address] tablet Medical twice a Branch day by oral route. simvastatin Yes simvastati Univers 20 mg 3-24 n 20 mg ity of tablet 13:15: tablet [address] traZODone Yes trazodone Uni vers 50 mg 3-24 50 mg ity of tablet 13:15: tablet [address] desvenlafax Yes Univer s ine 3-24 ity of succinate 13:15: [place] (PRISTIQ) Medical 25 mg Tb24 Branch QUEtiapine Yes Seroquel Uni vers (SEROQUEL) 3-24 200 mg ity of 200 mg 13:15: tablet [place] tablet Take 1 Medical tablet Branch twice a day by oral route. levothyroxi Yes levothyrox Univers ne 50 mcg 3-24 ine 50 mcg ity of tablet 13:15: tablet [address] aspirin 81 Yes 81mg Take 81 mg U nivers mg chewable 3-24 by mouth ity of tablet 13:15: daily. [address] desvenlafax Yes 1{tbl} Take 1 Un fernanda ine 3-24 tablet by ity of succinate 13:15: mouth [place] (PRISTIQ) 54 daily. Medical 25 mg Tb24 [...] 500 mg ity of tablet 13:15: tablet [address] aspirin 81 Yes aspirin 81 U nivers mg EC 3-24 mg ity of tablet 13:15: tablet,del [place] [address] ayed Medical release Branch Take 1 tablet every day by oral route. carvediloL Yes Coreg 25 Uni vers (COREG) 25 3-24 mg tablet ity of mg tablet 13:15: Take 1 [place] [address] tablet Medical twice a Branch day by oral route. simvastatin Yes simvastati Univers 20 mg 3-24 n 20 mg ity of tablet 13:15: tablet [address] traZODone Yes trazodone Uni vers 50 mg 3-24 50 mg ity of tablet 13:15: tablet [address] desvenlafax Yes Univer s ine 3-24 ity of succinate 13:15: [place] (PRISTIQ) Medical 25 mg Tb24 Branch QUEtiapine Yes Seroquel Uni vers (SEROQUEL) 3-24 200 mg ity of 200 mg 13:15: tablet [place] tablet Take 1 Medical tablet Branch twice a day by oral route. levothyroxi Yes levothyrox Univers ne 50 mcg 3-24 ine 50 mcg ity of tablet 13:15: tablet [address] aspirin 81 Yes 81mg Take 81 mg U nivers mg chewable 3-24 by mouth ity of tablet 13:15: daily. [address] desvenlafax Yes 1{tbl} Take 1 Un fernanda ine 3-24 tablet by ity of succinate 13:15: mouth [place] (PRISTIQ) 54 daily. Medical 25 mg Tb24 [...] 500 mg ity of tablet 13:15: tablet [address] aspirin 81 Yes aspirin 81 U nivers mg EC 3-24 mg ity of tablet 13:15: tablet,del [place] [address] ayed Medical release Branch Take 1 tablet every day by oral route. carvediloL Yes Coreg 25 Uni vers (COREG) 25 3-24 mg tablet ity of mg tablet 13:15: Take 1 [place] [address] tablet Medical twice a Branch day by oral route. simvastatin Yes simvastati Univers 20 mg 3-24 n 20 mg ity of tablet 13:15: tablet [address] traZODone Yes trazodone Uni vers 50 mg 3-24 50 mg ity of tablet 13:15: tablet [address] desvenlafax Yes Univer s ine 3-24 ity of succinate 13:15: [place] (PRISTIQ) 54 Medical 25 mg Tb24 Branch QUEtiapine Yes Seroquel Uni vers (SEROQUEL) 3-24 200 mg ity of 200 mg 13:15: tablet [place] tablet Take 1 Medical tablet Branch twice a day by oral route. levothyroxi Yes levothyrox [facility] ne 50 mcg 3-24 ine 50 mcg ity of tablet 13:15: tablet [address] aspirin 81 Yes 81mg Take 81 mg U nivers mg chewable 3-24 by mouth ity of tablet 13:15: daily. [address] desvenlafax Yes 1{tbl} Take 1 Un fernanda ine 3-24 tablet by ity of succinate 13:15: mouth [place] (PRISTIQ) 54 daily. Medical 25 mg Tb24 Branch Cholecalcif Yes Vitamin D3 [facility], 3-24 10 mcg ity of Vitamin D3, 13:15: (400 unit) [place] 10 mcg (400 54 capsule Medic al unit) Take by Branch capsule oral route. metFORMIN Yes metformin [facility] vers 500 mg 3-24 500 mg ity of tablet 13:15: tablet [address] aspirin 81 Yes aspirin 81 U nivers mg EC 3-24 mg ity of tablet 13:15: tablet,del [place] [address] ayed Medical release Branch Take 1 tablet every day by oral route. carvediloL Yes Coreg 25 Uni vers (COREG) 25 3-24 mg tablet ity of mg tablet 13:15: Take 1 [place] [address] tablet Medical twice a Branch day by oral route. simvastatin Yes simvastati [facility] 20 mg 3-24 n 20 mg ity of tablet 13:15: tablet [address] traZODone Yes trazodone Uni vers 50 mg 3-24 50 mg ity of tablet 13:15: tablet [address] desvenlafax Yes Univer s ine 3-24 ity of succinate 13:15: [place] ([facility]) Medical 25 mg Tb24 Branch QUEtiapine Yes Seroquel Uni vers (SEROQUEL) 3-24 200 mg ity of 200 mg 13:15: tablet [place] tablet 54 Take 1 Medical tablet Branch twice a day by oral route. levothyroxi Yes levothyrox [facility] ne 50 mcg 3-24 ine 50 mcg ity of tablet 13:15: tablet [address] aspirin 81 Yes 81mg Take 81 mg U nivers mg chewable 3-24 by mouth ity of tablet 13:15: daily. [address] desvenlafax Yes 1{tbl} Take 1 Un fernanda ine 3-24 tablet by ity of succinate 13:15: mouth [place] (PR[facility]) 54 daily. Medical 25 mg Tb24 Branch Cholecalcif Yes Vitamin D3 [facility], 3-24 10 mcg ity of Vitamin D3, 13:15: (400 unit) [place] 10 mcg (400 54 capsule Medic al unit) Take by Branch capsule oral route. metFORMIN Yes metformin [facility] vers 500 mg 3-24 500 mg ity of tablet 13:15: tablet [address] aspirin 81 Yes aspirin 81 U nivers mg EC 3-24 mg ity of tablet 13:15: tablet,del [place] [address] ayed Medical release Branch Take 1 tablet every day by oral route. carvediloL Yes Coreg 25 Uni vers (COREG) 25 3-24 mg tablet ity of mg tablet 13:15: Take 1 [place] [address] tablet Medical twice a Branch day by oral route. simvastatin Yes simvastati [facility] 20 mg 3-24 n 20 mg ity of tablet 13:15: tablet [address] traZODone Yes trazodone [facility] vers 50 mg 3-24 50 mg ity of tablet 13:15: tablet [address] desvenlafax Yes Univer s ine 3-24 ity of succinate 13:15: [place] ([facility]) Medical 25 mg Tb24 Agency QUEtiapine Yes Seroquel Uni vers (SEROQUEL) 3-24 200 mg ity of 200 mg 13:15: tablet [place] tablet Take 1 Medical tablet Branch twice a day by oral route. levothyroxi Yes levothyrox [facility] ne 50 mcg 3-24 ine 50 mcg ity of tablet 13:15: tablet [address] aspirin 81 Yes 81mg Take 81 mg U nivers mg chewable 3-24 by mouth ity of tablet 13:15: daily. [address] desvenlafax Yes 1{tbl} Take 1 Un fernanda ine 3-24 tablet by ity of succinate 13:15: mouth [place] ([facility]) 54 daily. Medical 25 mg Tb24 Branch Cholecalcif Yes Vitamin D3 [facility], 3-24 10 mcg ity of Vitamin D3, 13:15: (400 unit) [place] 10 mcg (400 54 capsule Medic al unit) Take by Branch capsule oral route. metFORMIN Yes metformin [facility] vers 500 mg 3-24 500 mg ity of tablet 13:15: tablet [address] Branch aspirin 81 Yes aspirin 81 U nivers mg EC 3-24 mg ity of tablet 13:15: tablet,del [place] 54 ayed Medical release Branch Take 1 tablet every day by oral route. carvediloL Yes Coreg 25 Uni vers (COREG) 25 3-24 mg tablet ity of mg tablet 13:15: Take 1 [place] [address] tablet Medical twice a Branch day by oral route. simvastatin Yes simvastati [facility] 20 mg 3-24 n 20 mg ity of tablet 13:15: tablet [address] traZODone Yes trazodone Uni vers 50 mg 3-24 50 mg ity of tablet 13:15: tablet [address] desvenlafax Yes Univer s ine 3-24 ity of succinate 13:15: [place] ([facility]) Medical 25 mg Tb24 Agency QUEtiapine Yes Seroquel Uni vers (SEROQUEL) 3-24 200 mg ity of 200 mg 13:15: tablet [place] tablet 54 Take 1 Medical tablet Branch twice a day by oral route. levothyroxi Yes levothyrox [facility] ne 50 mcg 3-24 ine 50 mcg ity of tablet 13:15: tablet [address] aspirin 81 Yes 81mg Take 81 mg U nivers mg chewable 3-24 by mouth ity of tablet 13:15: daily. [address] desvenlafax Yes 1{tbl} Take 1 Un fernanda ine 3-24 tablet by ity of succinate 13:15: mouth [place] ([facility]) 54 daily. Medical 25 mg Tb24 Branch Cholecalcif Yes Vitamin D3 [facility], 3-24 10 mcg ity of Vitamin D3, 13:15: (400 unit) [place] 10 mcg (400 54 capsule Medic al unit) Take by Branch capsule oral route. metFORMIN Yes metformin [facility] vers 500 mg 3-24 500 mg ity of tablet 13:15: tablet [address] aspirin 81 Yes aspirin 81 U nivers mg EC 3-24 mg ity of tablet 13:15: tablet,del [address] Take 1 tablet every day by oral route. carvediloL Yes Coreg 25 Uni vers (COREG) 25 3-24 mg tablet ity of mg tablet 13:15: Take 1 [place] [address] tablet Medical twice a Branch day by oral route. simvastatin Yes simvastati [facility] 20 mg 3-24 n 20 mg ity of tablet 13:15: tablet [address] traZODone Yes trazodone Uni vers 50 mg 3-24 50 mg ity of tablet 13:15: tablet [address] desvenlafax Yes Univer s ine 3-24 ity of succinate 13:15: [place] ([facility]) Medical 25 mg Tb24 Branch QUEtiapine Yes Seroquel Uni vers (SEROQUEL) 3-24 200 mg ity of 200 mg 13:15: tablet [place] [address] Take 1 Medical tablet Agency twice a day by oral route. levothyroxi Yes levothyrox [facility] ne 50 mcg 3-24 ine 50 mcg ity of tablet 13:15: tablet [address] aspirin 81 Yes 81mg Take 81 mg U nivers mg chewable 3-24 by mouth ity of tablet 13:15: daily. [address] desvenlafax Yes 1{tbl} Take 1 Un fernanda ine 3-24 tablet by ity of succinate 13:15: mouth [place] ([facility]) 54 daily. Medical 25 mg Tb24 Branch Cholecalcif Yes Vitamin D3 [facility], 3-24 10 mcg ity of Vitamin D3, 13:15: (400 unit) [place] 10 mcg (400 54 capsule Medic al unit) Take by Branch capsule oral route. metFORMIN Yes metformin [facility] vers 500 mg 3-24 500 mg ity of tablet 13:15: tablet [address] aspirin 81 Yes aspirin 81 U nivers mg EC 3-24 mg ity of tablet 13:15: tablet,del [address] Take 1 tablet every day by oral route. carvediloL Yes Coreg 25 Uni vers (COREG) 25 3-24 mg tablet ity of mg tablet 13:15: Take 1 [place] [address] tablet Medical twice a Branch day by oral route. simvastatin Yes simvastati [facility] 20 mg 3-24 n 20 mg ity of tablet 13:15: tablet [address] traZODone Yes trazodone Uni vers 50 mg 3-24 50 mg ity of tablet 13:15: tablet [address] desvenlafax Yes Univer s ine 3-24 ity of succinate 13:15: [place] ([facility]) 54 Medical 25 mg Tb24 Branch QUEtiapine Yes Seroquel Uni vers (SEROQUEL) 3-24 200 mg ity of 200 mg 13:15: tablet [place] [address] Take 1 Medical tablet Branch twice a day by oral route. levothyroxi Yes levothyrox [facility] ne 50 mcg 3-24 ine 50 mcg ity of tablet 13:15: tablet [address] aspirin 81 Yes 81mg Take 81 mg U nivers mg chewable 3-24 by mouth ity of tablet 13:15: daily. [address] desvenlafax Yes 1{tbl} Take 1 Un f[facility]anda ine 3-24 tablet by ity of succinate 13:15: mouth [place] (PR[facility]) 54 daily. Medical 25 mg Tb24 Branch Cholecalcif Yes Vitamin D3 [facility], 3-24 10 mcg ity of Vitamin D3, 13:15: (400 unit) [place] 10 mcg (400 54 capsule Medic al unit) Take by Branch capsule oral route. metFORMIN Yes metformin [facility] vers 500 mg 3-24 500 mg ity of tablet 13:15: tablet [address] aspirin 81 Yes aspirin 81 U nivers mg EC 3-24 mg ity of tablet 13:15: tablet,del [place] [address] ayed Medical release Branch Take 1 tablet every day by oral route. carvediloL Yes Coreg 25 Uni vers (COREG) 25 3-24 mg tablet ity of mg tablet 13:15: Take 1 [place] [address] tablet Medical twice a Branch day by oral route. simvastatin Yes simvastati [facility] 20 mg 3-24 n 20 mg ity of tablet 13:15: tablet [address] traZODone Yes trazodone Uni vers 50 mg 3-24 50 mg ity of tablet 13:15: tablet [address] desvenlafax Yes Univer s ine 3-24 ity of succinate 13:15: [place] ([facility]) Medical 25 mg Tb24 Branch QUEtiapine Yes Seroquel Uni vers (SEROQUEL) 3-24 200 mg ity of 200 mg 13:15: tablet [place] [address] Take 1 Medical tablet Branch twice a day by oral route. levothyroxi Yes levothyrox [facility] ne 50 mcg 3-24 ine 50 mcg ity of tablet 13:15: tablet [address] aspirin 81 Yes 81mg Take 81 mg U nivers mg chewable 3-24 by mouth ity of tablet 13:15: daily. [address] desvenlafax Yes 1{tbl} Take 1 Un f[facility]anda ine 3-24 tablet by ity of succinate 13:15: mouth [place] ([facility]) daily. Medical 25 mg Tb24 Branch Cholecalcif Yes Vitamin D3 [facility], 3-24 10 mcg ity of Vitamin D3, 13:15: (400 unit) [place] 10 mcg (400 54 capsule Medic al unit) Take by Branch capsule oral route. metFORMIN Yes metformin [facility] vers 500 mg 3-24 500 mg ity of tablet 13:15: tablet [address] aspirin 81 Yes aspirin 81 U nivers mg EC 3-24 mg ity of tablet 13:15: tablet,del [place] [address] ayed Medical release Branch Take 1 tablet every day by oral route. carvediloL Yes Coreg 25 Uni vers (COREG) 25 3-24 mg tablet ity of mg tablet 13:15: Take 1 [place] [address] tablet Medical twice a Branch day by oral route. simvastatin Yes simvastati [facility] 20 mg 3-24 n 20 mg ity of tablet 13:15: tablet [address] traZODone Yes trazodone Uni vers 50 mg 3-24 50 mg ity of tablet 13:15: tablet [address] desvenlafax Yes Univer s ine 3-24 ity of succinate 13:15: [place] (PR[facility]IQ) 54 Medical 25 mg Tb24 Branch QUEtiapine Yes Seroquel Uni vers (SEROQUEL) 3-24 200 mg ity of 200 mg 13:15: tablet [place] tablet 54 Take 1 Medical tablet Branch twice a day by oral route. levothyroxi Yes levothyrox [facility] ne 50 mcg 3-24 ine 50 mcg ity of tablet 13:15: tablet [address] aspirin 81 Yes 81mg Take 81 mg U nivers mg chewable 3-24 by mouth ity of tablet 13:15: daily. [address] Branch desvenlafax Yes 1{tbl} Take 1 Un fernanda ine 3-24 tablet by ity of succinate 13:15: mouth [place] (PR[facility]IQ) 54 daily. Medical 25 mg Tb24 Branch Cholecalcif Yes Vitamin D3 [facility], 3-24 10 mcg ity of Vitamin D3, 13:15: (400 unit) [place] 10 mcg (400 54 capsule Medic al unit) Take by Branch capsule oral route. metFORMIN Yes metformin [facility] vers 500 mg 3-24 500 mg ity of tablet 13:15: tablet [address] Branch aspirin 81 Yes aspirin 81 U nivers mg EC 3-24 mg ity of tablet 13:15: tablet,del [place] [address] ayed Medical release Branch Take 1 tablet every day by oral route. carvediloL Yes Coreg 25 Uni vers (COREG) 25 3-24 mg tablet ity of mg tablet 13:15: Take 1 [place] [address] tablet Medical twice a Branch day by oral route. simvastatin Yes simvastati [facility] 20 mg 3-24 n 20 mg ity of tablet 13:15: tablet [address] Branch traZODone Yes trazodone Uni vers 50 mg 3-24 50 mg ity of tablet 13:15: tablet [address] desvenlafax Yes Univer s ine 3-24 ity of succinate 13:15: [place] ([facility]) Medical 25 mg Tb24 Branch QUEtiapine Yes Seroquel Uni vers (SEROQUEL) 3-24 200 mg ity of 200 mg 13:15: tablet [place] tablet 54 Take 1 Medical tablet Branch twice a day by oral route. levothyroxi Yes levothyrox [facility] ne 50 mcg 3-24 ine 50 mcg ity of tablet 13:15: tablet [address] Branch aspirin 81 Yes 81mg Take 81 mg U nivers mg chewable 3-24 by mouth ity of tablet 13:15: daily. [address] desvenlafax Yes 1{tbl} Take 1 Un [...] 500 mg ity of tablet 13:15: tablet [address] aspirin 81 Yes aspirin 81 U nivers mg EC 3-24 mg ity of tablet 13:15: tablet,del [place] [address] ayed Medical release Branch Take 1 tablet every day by oral route. carvediloL Yes Coreg 25 Uni vers (COREG) 25 3-24 mg tablet ity of mg tablet 13:15: Take 1 [place] [address] tablet Medical twice a Branch day by oral route. simvastatin Yes simvastati [facility] 20 mg 3-24 n 20 mg ity of tablet 13:15: tablet [address] traZODone Yes trazodone Uni vers 50 mg 3-24 50 mg ity of tablet 13:15: tablet [address] desvenlafax Yes Univer s ine 3-24 ity of succinate 13:15: [place] (PR[facility]) 54 Medical 25 mg Tb24 Branch QUEtiapine Yes Seroquel Uni vers (SEROQUEL) 3-24 200 mg ity of 200 mg 13:15: tablet [place] tablet 54 Take 1 Medical tablet Branch twice a day by oral route. levothyroxi Yes levothyrox [facility] ne 50 mcg 3-24 ine 50 mcg ity of tablet 13:15: tablet [address] aspirin 81 2022-0 Yes 81mg Take 81 mg U nivers mg chewable 3-24 by mouth ity of tablet 13:15: daily. [address] desvenlafax Yes 1{tbl} Take 1 Un [...] 500 mg ity of tablet 13:15: tablet [address] aspirin 81 Yes aspirin 81 U nivers mg EC 3-24 mg ity of tablet 13:15: tablet,del [place] [address] ayed Medical release Branch Take 1 tablet every day by oral route. carvediloL Yes Coreg 25 Uni vers (COREG) 25 3-24 mg tablet ity of mg tablet 13:15: Take 1 [place] [address] tablet Medical twice a Branch day by oral route. simvastatin Yes simvastati [facility] 20 mg 3-24 n 20 mg ity of tablet 13:15: tablet [address] traZODone Yes trazodone Uni vers 50 mg 3-24 50 mg ity of tablet 13:15: tablet [address] desvenlafax Yes Univer s ine 3-24 ity of succinate 13:15: [place] ([facility]) [address] [address] 25 mg Tb24 Branch QUEtiapine Yes Seroquel Uni vers (SEROQUEL) 3-24 200 mg ity of 200 mg 13:15: tablet [place] tablet 54 Take 1 Medical tablet Branch twice a day by oral route. levothyroxi Yes levothyrox [facility] ne 50 mcg 3-24 ine 50 mcg ity of tablet 13:15: tablet [address] aspirin 81 Yes 81mg Take 81 mg U nivers mg chewable 3-24 by mouth ity of tablet 13:15: daily. [address] desvenlafax Yes 1{tbl} Take 1 Un fernanda ine 3-24 tablet by ity of succinate 13:15: mouth [place] (PRISTIQ) 54 daily. Medical 25 mg Tb24 Branch Cholecalcif Yes Vitamin D3 [facility], 3-24 10 mcg ity of Vitamin D3, 13:15: (400 unit) [place] 10 mcg (400 54 capsule Medic al unit) Take by Branch capsule oral route. metFORMIN Yes metformin [facility] vers 500 mg 3-24 500 mg ity of tablet 13:15: tablet [address] aspirin 81 Yes aspirin 81 U nivers mg EC 3-24 mg ity of tablet 13:15: tablet,del [place] [address] ayed Medical release Branch Take 1 tablet every day by oral route. carvediloL Yes Coreg 25 Uni vers (COREG) 25 3-24 mg tablet ity of mg tablet 13:15: Take 1 [place] [address] tablet Medical twice a Branch day by oral route. simvastatin Yes simvastati [facility] 20 mg 3-24 n 20 mg ity of tablet 13:15: tablet [address] traZODone Yes trazodone Uni vers 50 mg 3-24 50 mg ity of tablet 13:15: tablet [address] desvenlafax Yes Univer s ine 3-24 ity of succinate 13:15: [place] ([facility]) [address] [place] [address] 25 mg Tb24 Branch QUEtiapine Yes Seroquel Uni vers (SEROQUEL) 3-24 200 mg ity of 200 mg 13:15: tablet [place] [address] Take 1 Medical tablet Branch twice a day by oral route. levothyroxi Yes levothyrox [facility] ne 50 mcg 3-24 ine 50 mcg ity of tablet 13:15: tablet [address] aspirin 81 Yes 81mg Take 81 mg U nivers mg chewable 3-24 by mouth ity of tablet 13:15: daily. [address] desvenlafax Yes 1{tbl} Take 1 Un f[facility]anda ine 3-24 tablet by ity of succinate 13:15: mouth [place] (PR[facility]IQ) 54 daily. Medical 25 mg Tb24 Branch Cholecalcif Yes Vitamin D3 [facility], 3-24 10 mcg ity of Vitamin D3, 13:15: (400 unit) [place] 10 mcg (400 54 capsule Medic al unit) Take by Branch capsule oral route. metFORMIN Yes metformin [facility] vers 500 mg 3-24 500 mg ity of tablet 13:15: tablet [address] aspirin 81 Yes aspirin 81 U nivers mg EC 3-24 mg ity of tablet 13:15: tablet,del [place] [address] ayed Medical release Branch Take 1 tablet every day by oral route. carvediloL Yes Coreg 25 Uni vers (COREG) 25 3-24 mg tablet ity of mg tablet 13:15: Take 1 [place] [address] tablet Medical twice a Branch day by oral route. simvastatin Yes simvastati [facility] 20 mg 3-24 n 20 mg ity of tablet 13:15: tablet [address] traZODone Yes trazodone Uni vers 50 mg 3-24 50 mg ity of tablet 13:15: tablet [address] desvenlafax Yes Univer s ine 3-24 ity of succinate 13:15: [place] ([facility]) [address] [place] [address] 25 mg Tb24 Agency QUEtiapine Yes Seroquel Uni vers (SEROQUEL) 3-24 200 mg ity of 200 mg 13:15: tablet [place] tablet Take 1 Medical tablet Branch twice a day by oral route. levothyroxi Yes levothyrox [facility] ne 50 mcg 3-24 ine 50 mcg ity of tablet 13:15: tablet [address] aspirin 81 Yes 81mg Take 81 mg U nivers mg chewable 3-24 by mouth ity of tablet 13:15: daily. [address] desvenlafax Yes 1{tbl} Take 1 Un fernanda ine 3-24 tablet by ity of succinate 13:15: mouth [place] (PR[facility]IQ) 54 daily. Medical 25 mg Tb24 Branch Cholecalcif Yes Vitamin D3 [facility], 3-24 10 mcg ity of Vitamin D3, 13:15: (400 unit) [place] 10 mcg (400 54 capsule Medic al unit) Take by Branch capsule oral route. metFORMIN Yes metformin [facility] vers 500 mg 3-24 500 mg ity of tablet 13:15: tablet [address] aspirin 81 Yes aspirin 81 U nivers mg EC 3-24 mg ity of tablet 13:15: tablet,del [place] [address] ay Medical release Agency Take 1 tablet every day by oral route. carvediloL Yes Coreg 25 Uni vers (COREG) 25 3-24 mg tablet ity of mg tablet 13:15: Take 1 [place] [address] tablet Medical twice a Branch day by oral route. simvastatin Yes simvastati [facility] 20 mg 3-24 n 20 mg ity of tablet 13:15: tablet [address] traZODone Yes trazodone Uni vers 50 mg 3-24 50 mg ity of tablet 13:15: tablet [address] desvenlafax Yes Univer s ine 3-24 ity of succinate 13:15: [place] ([facility]) Medical 25 mg Tb24 Agency QUEtiapine Yes Seroquel Uni vers (SEROQUEL) 3-24 200 mg ity of 200 mg 13:15: tablet [place] [address] Take 1 Medical tablet Agency twice a day by oral route. levothyroxi Yes levothyrox [facility] ne 50 mcg 3-24 ine 50 mcg ity of tablet 13:15: tablet [address] aspirin 81 Yes 81mg Take 81 mg U nivers mg chewable 3-24 by mouth ity of tablet 13:15: daily. [address] desvenlafax Yes 1{tbl} Take 1 Un f[facility]anda ine 3-24 tablet by ity of succinate 13:15: mouth [place] (PRISTIQ) 54 daily. Medical 25 mg Tb24 Branch Cholecalcif Yes Vitamin D3 [facility], 3-24 10 mcg ity of Vitamin D3, 13:15: (400 unit) [place] 10 mcg (400 54 capsule Medic al unit) Take by Branch capsule oral route. metFORMIN Yes metformin [facility] vers 500 mg 3-24 500 mg ity of tablet 13:15: tablet [address] aspirin 81 Yes aspirin 81 U nivers mg EC 3-24 mg ity of tablet 13:15: tablet,del [address] release Agency Take 1 tablet every day by oral route. carvediloL Yes Coreg 25 Uni vers (COREG) 25 3-24 mg tablet ity of mg tablet 13:15: Take 1 [place] [address] tablet Medical twice a Branch day by oral route. simvastatin Yes simvastati [facility] 20 mg 3-24 n 20 mg ity of tablet 13:15: tablet [address] traZODone Yes trazodone Uni vers 50 mg 3-24 50 mg ity of tablet 13:15: tablet [address] desvenlafax Yes Univer s ine 3-24 ity of succinate 13:15: [place] (PR[facility]) 54 Medical 25 mg Tb24 Branch QUEtiapine Yes Seroquel Uni vers (SEROQUEL) 3-24 200 mg ity of 200 mg 13:15: tablet [place] tablet Take 1 Medical tablet Branch twice a day by oral route. levothyroxi Yes levothyrox [facility] ne 50 mcg 3-24 ine 50 mcg ity of tablet 13:15: tablet [address] aspirin 81 Yes 81mg Take 81 mg U nivers mg chewable 3-24 by mouth ity of tablet 13:15: daily. [address] desvenlafax Yes 1{tbl} Take 1 Un fernanda ine 3-24 tablet by ity of succinate 13:15: mouth [place] (PRISTIQ) 54 daily. Medical 25 mg Tb24 Branch Cholecalcif Yes Vitamin D3 [facility], 3-24 10 mcg ity of Vitamin D3, 13:15: (400 unit) [place] 10 mcg (400 54 capsule Medic al unit) Take by Branch capsule oral route. metFORMIN Yes metformin [facility] vers 500 mg 3-24 500 mg ity of tablet 13:15: tablet [address] aspirin 81 Yes aspirin 81 U nivers mg EC 3-24 mg ity of tablet 13:15: tablet,del [place] [address] ayed Medical release Branch Take 1 tablet every day by oral route. carvediloL Yes Coreg 25 Uni vers (COREG) 25 3-24 mg tablet ity of mg tablet 13:15: Take 1 [place] [address] tablet Medical twice a Branch day by oral route. simvastatin Yes simvastati [facility] 20 mg 3-24 n 20 mg ity of tablet 13:15: tablet [address] traZODone Yes trazodone Uni vers 50 mg 3-24 50 mg ity of tablet 13:15: tablet [address] desvenlafax Yes Univer s ine 3-24 ity of succinate 13:15: [place] (PR[facility]IQ) 54 Medical 25 mg Tb24 Branch QUEtiapine Yes Seroquel Uni vers (SEROQUEL) 3-24 200 mg ity of 200 mg 13:15: tablet [place] tablet 54 Take 1 Medical tablet Branch twice a day by oral route. levothyroxi Yes levothyrox [facility] ne 50 mcg 3-24 ine 50 mcg ity of tablet 13:15: tablet [address] aspirin 81 Yes 81mg Take 81 mg U nivers mg chewable 3-24 by mouth ity of tablet 13:15: daily. [address] desvenlafax Yes 1{tbl} Take 1 Un fernanda ine 3-24 tablet by ity of succinate 13:15: mouth [place] (PRISTIQ) 54 daily. Medical 25 mg Tb24 Branch Cholecalcif Yes Vitamin D3 [facility], 3-24 10 mcg ity of Vitamin D3, 13:15: (400 unit) [place] 10 mcg (400 54 capsule Medic al unit) Take by Branch capsule oral route. metFORMIN Yes metformin [facility] vers 500 mg 3-24 500 mg ity of tablet 13:15: tablet [address] aspirin 81 Yes aspirin 81 U nivers mg EC 3-24 mg ity of tablet 13:15: tablet,del [place] [address] ayed Medical release Branch Take 1 tablet every day by oral route. carvediloL Yes Coreg 25 Uni vers (COREG) 25 3-24 mg tablet ity of mg tablet 13:15: Take 1 [place] [address] tablet Medical twice a Branch day by oral route. simvastatin Yes simvastati [facility] 20 mg 3-24 n 20 mg ity of tablet 13:15: tablet [address] traZODone Yes trazodone Uni vers 50 mg 3-24 50 mg ity of tablet 13:15: tablet [place] 54 Medical Branch desvenlafax Yes Univer s ine 3-24 ity of succinate 13:15: [place] (PR[facility]) 54 Medical 25 mg Tb24 Branch QUEtiapine Yes Seroquel Uni vers (SEROQUEL) 3-24 200 mg ity of 200 mg 13:15: tablet [place] tablet 54 Take 1 Medical tablet Branch twice a day by oral route. levothyroxi Yes levothyrox [facility] ne 50 mcg 3-24 ine 50 mcg ity of tablet 13:15: tablet [address] Branch aspirin 81 Yes 81mg Take 81 mg U nivers mg chewable 3-24 by mouth ity of tablet 13:15: daily. [address] desvenlafax Yes 1{tbl} Take 1 Un fernanda ine 3-24 tablet by ity of succinate 13:15: mouth [place] (PRISTIQ) 54 daily. Medical 25 mg Tb24 Branch Cholecalcif Yes Vitamin D3 [facility], 3-24 10 mcg ity of Vitamin D3, 13:15: (400 unit) [place] 10 mcg (400 54 capsule Medic al unit) Take by Branch capsule oral route. metFORMIN Yes metformin [facility] vers 500 mg 3-24 500 mg ity of tablet 13:15: tablet [address] Branch aspirin 81 Yes aspirin 81 U nivers mg EC 3-24 mg ity of tablet 13:15: tablet,del [place] [address] ayed Medical release Branch Take 1 tablet every day by oral route. carvediloL Yes Coreg 25 Uni vers (COREG) 25 3-24 mg tablet ity of mg tablet 13:15: Take 1 [place] [address] tablet Medical twice a Branch day by oral route. simvastatin Yes simvastati [facility] 20 mg 3-24 n 20 mg ity of tablet 13:15: tablet [address] traZODone Yes trazodone Uni vers 50 mg 3-24 50 mg ity of tablet 13:15: tablet [address] desvenlafax Yes Univer s ine 3-24 ity of succinate 13:15: [place] [facility] 25 mg Tb24 Branch QUEtiapine Yes Seroquel Uni vers (SEROQUEL) 3-24 200 mg ity of 200 mg 13:15: tablet [place] tablet 54 Take 1 Medical tablet Branch twice a day by oral route. levothyroxi Yes levothyrox [facility] ne 50 mcg 3-24 ine 50 mcg ity of tablet 13:15: tablet [address] Branch aspirin 81 Yes 81mg Take 81 mg U nivers mg chewable 3-24 by mouth ity of tablet 13:15: daily. [address] Branch desvenlafax Yes 1{tbl} Take 1 [...] 500 mg ity of tablet 13:15: tablet [address] Branch aspirin 81 Yes aspirin 81 U nivers mg EC 3-24 mg ity of tablet 13:15: tablet,del [place] [address] ayed Medical release Branch Take 1 tablet every day by oral route. carvediloL Yes Coreg 25 Uni vers (COREG) 25 3-24 mg tablet ity of mg tablet 13:15: Take 1 [place] [address] tablet Medical twice a Branch day by oral route. simvastatin Yes simvastati [facility] 20 mg 3-24 n 20 mg ity of tablet 13:15: tablet [address] Branch traZODone Yes trazodone Uni vers 50 mg 3-24 50 mg ity of tablet 13:15: tablet [address] desvenlafax Yes Univer s ine 3-24 ity of succinate 13:15: [place] (PRISTIQ) 54 Medical 25 mg Tb24 Branch QUEtiapine Yes Seroquel Uni vers (SEROQUEL) 3-24 200 mg ity of 200 mg 13:15: tablet [place] tablet 54 Take 1 Medical tablet Branch twice a day by oral route. levothyroxi Yes levothyrox [facility] ne 50 mcg 3-24 ine 50 mcg ity of tablet 13:15: tablet [address] aspirin 81 Yes 81mg Take 81 mg U nivers mg chewable 3-24 by mouth ity of tablet 13:15: daily. [address] desvenlafax Yes 1{tbl} Take 1 Un fernanda ine 3-24 tablet by ity of succinate 13:15: mouth [place] (PRISTIQ) 54 daily. Medical 25 mg Tb24 Branch Cholecalcif Yes Vitamin D3 [facility] geoffrey, 3-24 10 mcg ity of Vitamin D3, 13:15: (400 unit) [place] 10 mcg (400 54 capsule Medic al unit) Take by Branch capsule oral route. metFORMIN Yes metformin Uni vers 500 mg 3-24 500 mg ity of tablet 13:15: tablet [address] aspirin 81 Yes aspirin 81 U nivers mg EC 3-24 mg ity of tablet 13:15: tablet,del [place] [address] ayed Medical release Branch Take 1 tablet every day by oral route. carvediloL Yes Coreg 25 Uni vers (COREG) 25 3-24 mg tablet ity of mg tablet 13:15: Take 1 [place] [address] tablet Medical twice a Branch day by oral route. simvastatin Yes simvastati [facility] 20 mg 3-24 n 20 mg ity of tablet 13:15: tablet [address] traZODone Yes trazodone Uni vers 50 mg 3-24 50 mg ity of tablet 13:15: tablet [address] desvenlafax Yes Univer s ine 3-24 ity of succinate 13:15: [place] (PRISTIQ) Medical 25 mg Tb24 Branch QUEtiapine Yes Seroquel Uni vers (SEROQUEL) 3-24 200 mg ity of 200 mg 13:15: tablet [place] [address] Take 1 Medical tablet Branch twice a day by oral route. levothyroxi Yes levothyrox [facility] ne 50 mcg 3-24 ine 50 mcg ity of tablet 13:15: tablet [address] aspirin 81 Yes 81mg Take 81 mg U nivers mg chewable 3-24 by mouth ity of tablet 13:15: daily. [address] desvenlafax Yes 1{tbl} Take 1 Un [facility]anda ine 3-24 tablet by ity of succinate 13:15: mouth [place] (PRISTIQ) 54 daily. Medical 25 mg Tb24 Branch Cholecalcif Yes Vitamin D3 [facility]off[facility], 3-24 10 mcg ity of Vitamin D3, 13:15: (400 unit) [place] 10 mcg (400 54 capsule Medic al unit) Take by Branch capsule oral route. metFORMIN Yes metformin Uni vers 500 mg 3-24 500 mg ity of tablet 13:15: tablet [address] Branch aspirin 81 Yes aspirin 81 U nivers mg EC 3-24 mg ity of tablet 13:15: tablet,del [place] [address] ayed Medical release Branch Take 1 tablet every day by oral route. carvediloL Yes Coreg 25 Uni vers (COREG) 25 3-24 mg tablet ity of mg tablet 13:15: Take 1 [place] [address] tablet Medical twice a Branch day by oral route. simvastatin Yes simvastati [facility] 20 mg 3-24 n 20 mg ity of tablet 13:15: tablet [address] traZODone Yes trazodone Uni vers 50 mg 3-24 50 mg ity of tablet 13:15: tablet [address] desvenlafax Yes Univer s ine 3-24 ity of succinate 13:15: [place] (PRISTIQ) Medical 25 mg Tb24 Branch QUEtiapine Yes Seroquel Uni vers (SEROQUEL) 3-24 200 mg ity of 200 mg 13:15: tablet [place] [address] Take 1 Medical tablet Branch twice a day by oral route. levothyroxi Yes levothyrox [facility] ne 50 mcg 3-24 ine 50 mcg ity of tablet 13:15: tablet [address] aspirin 81 Yes 81mg Take 81 mg U nivers mg chewable 3-24 by mouth ity of tablet 13:15: daily. [address] desvenlafax Yes 1{tbl} Take 1 Un [facility]anda ine 3-24 tablet by ity of succinate 13:15: mouth [place] (PRISTIQ) 54 daily. Medical 25 mg Tb24 Branch Cholecalcif Yes Vitamin D3 [facility], 3-24 10 mcg ity of Vitamin D3, 13:15: (400 unit) [place] 10 mcg (400 54 capsule Medic al unit) Take by Branch capsule oral route. metFORMIN Yes metformin Uni vers 500 mg 3-24 500 mg ity of tablet 13:15: tablet [address] aspirin 81 Yes aspirin 81 U nivers mg EC 3-24 mg ity of tablet 13:15: tablet,del [place] [address] ayed Medical release Branch Take 1 tablet every day by oral route. carvediloL Yes Coreg 25 Uni vers (COREG) 25 3-24 mg tablet ity of mg tablet 13:15: Take 1 [place] [address] tablet Medical twice a Branch day by oral route. simvastatin Yes simvastati [facility] 20 mg 3-24 n 20 mg ity of tablet 13:15: tablet [address] traZODone Yes trazodone Uni vers 50 mg 3-24 50 mg ity of tablet 13:15: tablet [address] desvenlafax Yes Univer s ine 3-24 ity of succinate 13:15: [place] (PRISTIQ) Medical 25 mg Tb24 Agency QUEtiapine Yes Seroquel Uni vers (SEROQUEL) 3-24 200 mg ity of 200 mg 13:15: tablet [place] tablet 54 Take 1 Medical tablet Branch twice a day by oral route. levothyroxi Yes levothyrox [facility] ne 50 mcg 3-24 ine 50 mcg ity of tablet 13:15: tablet [address] aspirin 81 Yes 81mg Take 81 mg U nivers mg chewable 3-24 by mouth ity of tablet 13:15: daily. [address] desvenlafax Yes 1{tbl} Take 1 Un [facility]anda ine 3-24 tablet by ity of succinate 13:15: mouth [place] (PRISTIQ) 54 daily. Medical 25 mg Tb24 Branch Cholecalcif Yes Vitamin D3 [facility], 3-24 10 mcg ity of Vitamin D3, 13:15: (400 unit) [place] 10 mcg (400 54 capsule Medic al unit) Take by Branch capsule oral route. metFORMIN Yes metformin Uni vers 500 mg 3-24 500 mg ity of tablet 13:15: tablet [address] Branch aspirin 81 0 Yes aspirin 81 U nivers mg EC 3-24 mg ity of tablet 13:15: tablet,del [place] [address] ayed Medical release Branch Take 1 tablet every day by oral route. carvediloL Yes Coreg 25 Uni vers (COREG) 25 3-24 mg tablet ity of mg tablet 13:15: Take 1 [place] [address] tablet Medical twice a Branch day by oral route. simvastatin Yes simvastati [facility] 20 mg 3-24 n 20 mg ity of tablet 13:15: tablet [address] traZODone Yes trazodone Uni vers 50 mg 3-24 50 mg ity of tablet 13:15: tablet [address] desvenlafax Yes Univer s ine 3-24 ity of succinate 13:15: [place] (PRISTIQ) Medical 25 mg Tb24 Branch QUEtiapine Yes Seroquel Uni vers (SEROQUEL) 3-24 200 mg ity of 200 mg 13:15: tablet [facility] 54 Take 1 Medical tablet Agency twice a day by oral route. levothyroxi Yes levothyrox Univers ne 50 mcg 3-24 ine 50 mcg ity of tablet 13:15: tablet [address] aspirin 81 0 Yes 81mg Take 81 mg U nivers mg chewable 3-24 by mouth ity of tablet 13:15: daily. [address] metFORMIN 2021-0 Yes 500mg Take 1 Unive rs 500 mg 2-24 tablet by ity of tablet 00:00: mouth [place] 00 every Medical evening. Branch metFORMIN 0 Yes 500mg Take 1 Unive rs 500 [...] [place] 00 every Medical evening. Branch metFORMIN 0 Yes 500mg Take 1 Unive rs 500 [...] 00:00: mouth [place] 00 every Medical evening. Agency metFORMIN 2-0 Yes 500mg QD Take [address] [address] (GLUCOPHAGE 2-24 mg by [facility] ) 500 MG 00:00: mouth Medical tablet 00 daily. [place] Metformin 2021-0 Yes metformin [facility] HCl 500 MG 2-24 500 mg [place] oral Tablet 00:00: tablet 00 Metformin 2021-0 Yes metformin [facility] HCl 500 MG 2-24 500 mg [place] oral Tablet 00:00: tablet 00 Metformin 2021-0 Yes metformin [facility] HCl 500 MG 2-24 500 mg [place] oral Tablet 00:00: tablet 00 Metformin 2-0 Yes 500mg Take 500 [facility] HCl 500 MG 2-24 mg by [place] oral Tablet 00:00: mouth 00 daily (with breakfast) hydrOXYzine 2-0 Yes [id number] 25mg Take 1 [facility] 25 mg 1-29 tablet by ity of tablet 00:00: mouth [place] 00 every 6 Medical (six) Branch hours as needed for Itching or Anxiety. methylPREDN 2021-0 Yes [id number] Take by Univers ISolone 1-29 mouth ity of (MEDROL, 00:00: SEE-INSTRU [place],) 4 mg 00 CTIONS. Medica l tablets follow Branch package directions hydrOXYzine 2022-0 Yes [id number] 25mg Take 1 [facility] 25 mg 1-29 tablet by ity of tablet 00:00: mouth [place] 00 every 6 Medical (six) Branch hours as needed for Itching or Anxiety. methylPREDN 2022-0 Yes [id number] Take by Univers ISolone 1-29 mouth ity of (MEDROL, 00:00: SEE-INSTRU [place],) 4 mg 00 CTIONS. Medica l tablets follow Branch package directions hydrOXYzine 2022-0 Yes [id number] 25mg Take 1 [facility] 25 mg 1-29 tablet by ity of tablet 00:00: mouth [place] 00 every 6 Medical (six) Branch hours as needed for Itching or Anxiety. methylPREDN 2022-0 Yes [id number] Take by [facility] ISolone 1-29 mouth ity of (MEDROL, 00:00: SEE-INSTRU [place],) 4 mg 00 CTIONS. Medica l tablets follow Branch package directions hydrOXYzine 2022-0 Yes [id number] 25mg Take 1 [facility] 25 mg 1-29 tablet by ity of tablet 00:00: mouth [place] 00 every 6 Medical (six) Branch hours as needed for Itching or Anxiety. methylPREDN 2022-0 Yes [id number] Take by [facility] ISolone 1-29 mouth ity of (MEDROL, 00:00: SEE-INSTRU [place],) 4 mg 00 CTIONS. Medica l tablets follow Branch package directions hydrOXYzine 2022-0 Yes [id number] 25mg Take 1 [facility] 25 mg 1-29 tablet by ity of tablet 00:00: mouth [place] 00 every 6 Medical (six) Branch hours as needed for Itching or Anxiety. hydrOXYzine 2022-0 Yes [id number] 25mg Take 1 [facility] 25 mg 1-29 tablet by ity of tablet 00:00: mouth [place] 00 every 6 Medical (six) Branch hours as needed for Itching or Anxiety. hydrOXYzine 2022-0 Yes [id number] 25mg Take 1 [facility] 25 mg 1-29 tablet by ity of tablet 00:00: mouth [place] 00 every 6 Medical (six) Branch hours as needed for Itching or Anxiety. hydrOXYzine 2022-0 Yes [id number] 25mg Take 1 [facility] 25 mg 1-29 tablet by ity of tablet 00:00: mouth [place] 00 every 6 Medical (six) Branch hours as needed for Itching or Anxiety. hydrOXYzine 2022-0 Yes [id number] 25mg Take 1 [facility] 25 mg 1-29 tablet by ity of tablet 00:00: mouth [place] 00 every 6 Medical (six) Branch hours as needed for Itching or Anxiety. hydrOXYzine 2-0 Yes [id number] 25mg Take 1 [facility] 25 mg 1-29 tablet by ity of tablet 00:00: mouth [place] 00 every 6 Medical (six) Branch hours as needed for Itching or Anxiety. hydrOXYzine 2-0 Yes [id number] 25mg Take 1 [facility] 25 mg 1-29 tablet by ity of tablet 00:00: mouth [place] 00 every 6 Medical (six) Branch hours as needed for Itching or Anxiety. hydrOXYzine 2021-0 Yes [id number] 25mg Take 1 [facility] 25 mg 1-29 tablet by ity of tablet 00:00: mouth [place] 00 every 6 Medical (six) Branch hours as needed for Itching or Anxiety. hydrOXYzine 2-0 Yes [id number] 25mg Take 1 Univers 25 mg 1-29 tablet by ity of tablet 00:00: mouth [place] 00 every 6 Medical (six) Branch hours as needed for Itching or Anxiety. hydrOXYzine 2-0 Yes [id number] 25mg Take 1 [facility] 25 mg 1-29 tablet by ity of tablet 00:00: mouth [place] 00 every 6 Medical (six) Branch hours as needed for Itching or Anxiety. hydrOXYzine 2-0 Yes [id number] 25mg Take 1 [facility] 25 mg 1-29 tablet by ity of tablet 00:00: mouth [place] 00 every 6 Medical (six) Branch hours as needed for Itching or Anxiety. hydrOXYzine 2022-0 Yes [id number] 25mg Take 1 [facility] 25 mg 1-29 tablet by ity of tablet 00:00: mouth [place] 00 every 6 Medical (six) Branch hours as needed for Itching or Anxiety. hydrOXYzine 2022-0 Yes [id number] 25mg Take 1 [facility] 25 mg 1-29 tablet by ity of tablet 00:00: mouth [place] 00 every 6 Medical (six) Branch hours as needed for Itching or Anxiety. hydrOXYzine 2021-0 Yes [id number] 25mg Take 1 [facility] 25 mg 1-29 tablet by ity of tablet 00:00: mouth [place] 00 every 6 Medical (six) Branch hours as needed for Itching or Anxiety. hydrOXYzine 2021-0 Yes [id number] 25mg Take 1 [facility] 25 mg 1-29 tablet by ity of tablet 00:00: mouth [place] 00 every 6 Medical (six) Branch hours as needed for Itching or Anxiety. hydrOXYzine 2021-0 Yes [id number] 25mg Take 1 [facility] 25 mg 1-29 tablet by ity of tablet 00:00: mouth [place] 00 every 6 Medical (six) Branch hours as needed for Itching or Anxiety. hydrOXYzine 2021-0 Yes [id number] 25mg Take 1 [facility] 25 mg 1-29 tablet by ity of tablet 00:00: mouth [place] 00 every 6 Medical (six) Branch hours as needed for Itching or Anxiety. hydrOXYzine 2021-0 Yes [id number] 25mg Take 1 [facility] 25 mg 1-29 tablet by ity of tablet 00:00: mouth [place] 00 every 6 Medical (six) Branch hours as needed for Itching or Anxiety. hydrOXYzine 2021-0 Yes [id number] 25mg Take 1 [facility] 25 mg 1-29 tablet by ity of tablet 00:00: mouth [place] 00 every 6 Medical (six) Branch hours as needed for Itching or Anxiety. hydrOXYzine 2021-0 Yes [id number] 25mg Take 1 [facility] 25 mg 1-29 tablet by ity of tablet 00:00: mouth [place] 00 every 6 Medical (six) Branch hours as needed for Itching or Anxiety. hydrOXYzine 2021-0 Yes [id number] 25mg Take 1 [facility] 25 mg 1-29 tablet by ity of tablet 00:00: mouth [place] 00 every 6 Medical (six) Branch hours as needed for Itching or Anxiety. hydrOXYzine 2021-0 Yes [id number] 25mg Take 1 [facility] 25 mg 1-29 tablet by ity of tablet 00:00: mouth [place] 00 every 6 Medical (six) Branch hours as needed for Itching or Anxiety. methylPREDN 2-0 2022- No [id number] Take by Univers ISolone 1-29 12-29 mouth ity of (MEDROL, 00:00: 00:00 SEE-INSTRU [place] MIR[place]LE,) 4 mg 00 :00 CTIONS. Medica l tablets follow Branch package directions methylPREDN 2021- No [id number] Take by [facility] 11-09 mouth ity of (MEDROL, 00:00: 00:00 SEE-INSTRU [place] MIR[place]LE,) 4 mg 00 :00 CTIONS. Medica l tablets follow Branch package directions methylPREDN 0 2- No [id number] Take by [facility] 11-09 mouth ity of (MEDROL, 00:00: 00:00 SEE-INSTRU [place],) 4 mg 00 :00 CTIONS. Medica l tablets follow Branch package directions methylPREDN 2021- No [id number] Take by [facility] 11-09 mouth ity of (MEDROL, 00:00: 00:00 SEE-INSTRU [place],) 4 mg 00 :00 CTIONS. Medica l tablets follow Branch package directions methylPREDN 0 2021- No [id number] Take by [facility] 11-09 mouth ity of (MEDROL, 00:00: 00:00 SEE-INSTRU [place],) 4 mg 00 :00 CTIONS. Medica l tablets follow Branch package directions methylPREDN 0 2021- No [id number] Take by [facility] 11-09 mouth ity of (MEDROL, 00:00: 00:00 SEE-INSTRU [place],) 4 mg 00 :00 CTIONS. Medica l tablets follow Branch package directions methylPREDN 0 2021- No [id number] Take by [facility] 11-09 mouth ity of (MEDROL, 00:00: 00:00 SEE-INSTRU [place],) 4 mg 00 :00 CTIONS. Medica l tablets follow Branch package directions acetaminoph Yes TAKE 2 Univ ers en-codeine 1-18 TABLETS BY ity of 300-30 mg 00:00: MOUTH [place] tablet 00 EVERY 6 Medical HOURS Branch NEEDED FOR PAIN ciprofloxac 2022-0 Yes TAKE ONE Un fernanda in HCl 500 1-18 TABLET BY ity of mg tablet 00:00: MOUTH [place] 00 EVERY 12 Medical HOURS Branch UNTIL ALL TAKEN metroNIDAZO 2021-0 Yes TAKE 1 Univ ers LE 500 [...] Medical HOURS Branch NEEDED FOR PAIN ciprofloxac 0 Yes TAKE ONE Un fernanda in HCl 500 1-18 TABLET BY ity of mg tablet 00:00: MOUTH [place] 00 EVERY 12 Medical HOURS Branch UNTIL ALL TAKEN metroNIDAZO 2021-0 Yes TAKE 1 Univ ers LE 500 [...] Medical HOURS Branch UNTIL ALL TAKEN metroNIDAZO 2021-0 Yes TAKE 1 Univ ers LE 500 [...] Medical HOURS Branch NEEDED FOR PAIN ciprofloxac 0 Yes TAKE ONE Un fernanda in HCl [...] 00:00: mouth [place] 00 daily. Medical Branch fluconazole Yes 150mg Take 150 U nivers 150 mg 1-18 mg by ity of tablet 00:00: mouth [place] 00 daily. Medical Branch fluconazole Yes 150mg Take 150 U nivers 150 mg 1-18 mg by ity of tablet 00:00: mouth [place] 00 daily. Medical Branch ciprofloxac 2022- No TAKE ONE U nivers in HCl 500 1-18 07-31 TABLET BY ity of mg tablet 00:00: 00:00 MOUTH [place] 00 :00 EVERY 12 Medical HOURS Branch UNTIL ALL TAKEN acetaminoph [...] 1 Uni vers LE 500 mg 1-18 -29 TABLET BY ity of tablet 00:00: 00:00 MOUTH [place] 00 :00 EVERY 8 Medical HOURS Branch UNTIL ALL TAKEN acetaminoph 2021-2021- No TAKE 2 Uni vers en-codeine 1-18 12-29 TABLETS BY it y of 300-30 mg 00:00: 00:00 MOUTH [place] tablet 00 :00 EVERY 6 Medical HOURS Branch NEEDED FOR PAIN metroNIDAZO 2021-2021- No TAKE 1 Uni vers LE 500 mg 1-18 -29 TABLET BY ity of tablet 00:00: 00:00 MOUTH [place] 00 :00 EVERY 8 Medical HOURS Branch UNTIL ALL TAKEN acetaminoph 2021-2021- No TAKE 2 Uni vers en-codeine 1-18 -29 TABLETS BY it y of 300-30 mg 00:00: 00:00 MOUTH [place] tablet 00 :00 EVERY 6 Medical HOURS Branch NEEDED FOR PAIN metroNIDAZO 2021-2021- No TAKE 1 Uni vers LE 500 mg 1-18 -29 TABLET BY ity of tablet 00:00: 00:00 MOUTH [place] 00 :00 EVERY 8 Medical HOURS Branch UNTIL ALL TAKEN acetaminoph 2021-2021- No TAKE 2 Uni vers en-codeine 1-18 [...] 2021-2021- No TAKE 2 Uni vers en-codeine 1-18 12-29 TABLETS BY it y of 300-30 mg 00:00: 00:00 MOUTH [place] tablet 00 :00 EVERY 6 Medical HOURS Branch NEEDED FOR PAIN metroNIDAZO 2021-2021- No TAKE 1 Uni vers LE 500 mg 1-18 12-29 TABLET BY ity of tablet 00:00: 00:00 MOUTH [place] 00 :00 EVERY 8 Medical HOURS Branch UNTIL ALL TAKEN levothyroxi 2021-0 Yes [id number] 125ug Take 1 Univers ne 125 mcg 1-12 tablet by ity of tablet 00:00: mouth [place] 00 every Medical morning. Branch simvastatin 0 Yes [id number] 20mg Take 1 [facility] 20 mg 1-12 tablet by ity of tablet 00:00: mouth at [place] 00 bedtime. Medical Agency Insulin 0 Yes [id number] 15U inject 15 Univers Glargine 1-12 Units ity of 100 unit/mL 00:00: under the [place] (3 mL) 00 skin daily Medical injection before Agency breakfast. levothyroxi Yes [id number] 125ug Take 1 Univers ne 125 mcg 1-12 tablet by ity of tablet 00:00: mouth [place] 00 every Medical morning. Branch simvastatin 0 Yes [id number] 20mg Take 1 [facility] 20 mg 1-12 tablet by ity of tablet 00:00: mouth at [place] [address] bedtime. Medical Agency Insulin 0 Yes [id number] 15U inject 15 [facility] Glargine 1-12 Units ity of 100 unit/mL 00:00: under the [place] (3 mL) 00 skin daily Medical injection before Agency breakfast. levothyroxi 2021- Yes [id number] 125ug Take 1 Univers ne 125 mcg 1-12 tablet by ity of tablet 00:00: mouth [place] 00 every Medical morning. Branch simvastatin 2021-0 Yes [id number] 20mg Take 1 [facility] 20 mg 1-12 tablet by ity of tablet 00:00: mouth at [place] 00 bedtime. Medical Agency Insulin 0 Yes [id number] 15U inject 15 Univers Glargine 1-12 Units ity of 100 unit/mL 00:00: under the [place] (3 mL) 00 skin daily Medical injection before Agency breakfast. levothyroxi 2021-0 Yes [id number] 125ug Take 1 Univers ne 125 mcg 1-12 tablet by ity of tablet 00:00: mouth [place] 00 every Medical morning. Agency simvastatin 0 Yes [id number] 20mg Take 1 [facility] 20 mg 1-12 tablet by ity of tablet 00:00: mouth at [place] 00 bedtime. Medical Agency Insulin 2021-0 Yes [id number] 15U inject 15 [facility] Glargine 1-12 Units ity of 100 unit/mL 00:00: under the [place] (3 mL) 00 skin daily Medical injection before Agency breakfast. levothyroxi 2021-0 Yes [id number] 125ug Take 1 [facility] ne 125 mcg 1-12 tablet by ity of tablet 00:00: mouth [place] 00 every Medical morning. Branch simvastatin 2021-0 Yes [id number] 20mg Take 1 [facility] 20 mg 1-12 tablet by ity of tablet 00:00: mouth at [place] 00 bedtime. Medical Agency Insulin 0 Yes [id number] 15U inject 15 [facility] Glargine 1-12 Units ity of 100 unit/mL 00:00: under the [place] (3 mL) 00 skin daily Medical injection before Agency breakfast. levothyroxi 2021-0 Yes [id number] 125ug Take 1 [facility] ne 125 mcg 1-12 tablet by ity of tablet 00:00: mouth [place] 00 every Medical morning. Branch simvastatin 2021-0 Yes [id number] 20mg Take 1 [facility] 20 mg 1-12 tablet by ity of tablet 00:00: mouth at [place] 00 bedtime. Medical Agency Insulin 0 Yes [id number] 15U inject 15 [facility] Glargine 1-12 Units ity of 100 unit/mL 00:00: under the [place] (3 mL) 00 skin daily Medical injection before Agency breakfast. levothyroxi 2021-0 Yes [id number] 125ug Take 1 [facility] ne 125 mcg 1-12 tablet by ity of tablet 00:00: mouth [place] 00 every Medical morning. Branch simvastatin 2021-0 Yes [id number] 20mg Take 1 [facility] 20 mg 1-12 tablet by ity of tablet 00:00: mouth at [place] 00 bedtime. Medical Agency Insulin 2021-0 Yes [id number] 15U inject 15 [facility] Glargine 1-12 Units ity of 100 unit/mL 00:00: under the [place] (3 mL) 00 skin daily Medical injection before Agency breakfast. levothyroxi 2021-0 Yes [id number] 125ug Take 1 [facility] ne 125 mcg 1-12 tablet by ity of tablet 00:00: mouth [place] 00 every Medical morning. Branch simvastatin 0 Yes [id number] 20mg Take 1 [facility] 20 mg 1-12 tablet by ity of tablet 00:00: mouth at [place] 00 bedtime. Medical Branch Insulin 0 Yes [id number] 15U inject 15 [facility] Glargine 1-12 Units ity of 100 unit/mL 00:00: under the [place] (3 mL) 00 skin daily Medical injection before Agency breakfast. levothyroxi 0 Yes [id number] 125ug Take 1 [facility] ne 125 mcg 1-12 tablet by ity of tablet 00:00: mouth [place] 00 every Medical morning. Branch simvastatin Yes [id number] 20mg Take 1 [facility] 20 mg 1-12 tablet by ity of tablet 00:00: mouth at [place] [address] bedtime. Medical Branch Insulin 0 Yes [id number] 15U inject 15 [facility] Glargine 1-12 Units ity of 100 unit/mL 00:00: under the [place] (3 mL) 00 skin daily Medical injection before Agency breakfast. levothyroxi Yes [id number] 125ug Take 1 [facility] ne 125 mcg 1-12 tablet by ity of tablet 00:00: mouth [place] 00 every Medical morning. Branch simvastatin 0 Yes [id number] 20mg Take 1 [facility] 20 mg 1-12 tablet by ity of tablet 00:00: mouth at [place] 00 bedtime. Medical Branch Insulin 0 Yes [id number] 15U inject 15 [facility] Glargine 1-12 Units ity of 100 unit/mL 00:00: under the [place] (3 mL) 00 skin daily Medical injection before Agency breakfast. levothyroxi 2021-0 Yes [id number] 125ug Take 1 [facility] ne 125 mcg 1-12 tablet by ity of tablet 00:00: mouth [place] 00 every Medical morning. Branch simvastatin 0 Yes [id number] 20mg Take 1 [facility] 20 mg 1-12 tablet by ity of tablet 00:00: mouth at [place] 00 bedtime. Medical Branch Insulin 0 Yes [id number] 15U inject 15 [facility] Glargine 1-12 Units ity of 100 unit/mL 00:00: under the [place] (3 mL) 00 skin daily Medical injection before Agency breakfast. levothyroxi Yes [id number] 125ug Take 1 Univers ne 125 mcg 1-12 tablet by ity of tablet 00:00: mouth [place] 00 every Medical morning. Branch simvastatin Yes [id number] 20mg Take 1 [facility] 20 mg 1-12 tablet by ity of tablet 00:00: mouth at [place] 00 bedtime. Medical Agency Insulin Yes [id number] 15U inject 15 [facility] Glargine 1-12 Units ity of 100 unit/mL 00:00: under the [place] (3 mL) 00 skin daily Medical injection before Agency breakfast. levothyroxi Yes [id number] 125ug Take 1 [facility] ne 125 mcg 1-12 tablet by ity of tablet 00:00: mouth [place] 00 every Medical morning. Branch simvastatin Yes [id number] 20mg Take 1 [facility] 20 mg 1-12 tablet by ity of tablet 00:00: mouth at [place] 00 bedtime. Medical Agency Insulin Yes [id number] 15U inject 15 [facility] Glargine 1-12 Units ity of 100 unit/mL 00:00: under the [place] (3 mL) 00 skin daily Medical injection before Agency breakfast. levothyroxi Yes [id number] 125ug Take 1 [facility] ne 125 mcg 1-12 tablet by ity of tablet 00:00: mouth [place] 00 every Medical morning. Agency simvastatin Yes [id number] 20mg Take 1 [facility] 20 mg 1-12 tablet by ity of tablet 00:00: mouth at [place] 00 bedtime. Medical Agency Insulin Yes [id number] 15U inject 15 [facility] Glargine 1-12 Units ity of 100 unit/mL 00:00: under the [place] (3 mL) 00 skin daily Medical injection before Agency breakfast. levothyroxi Yes [id number] 125ug Take 1 [facility] ne 125 mcg 1-12 tablet by ity of tablet 00:00: mouth [place] 00 every Medical morning. Branch simvastatin Yes [id number] 20mg Take 1 [facility] 20 mg 1-12 tablet by ity of tablet 00:00: mouth at [place] 00 bedtime. Medical Agency Insulin Yes [id number] 15U inject 15 [facility] Glargine 1-12 Units ity of 100 unit/mL 00:00: under the [place] (3 mL) 00 skin daily Medical injection before Agency breakfast. levothyroxi 2021-0 Yes [id number] 125ug Take 1 [facility] ne 125 mcg 1-12 tablet by ity of tablet 00:00: mouth [place] 00 every Medical morning. Branch simvastatin 2021-0 Yes [id number] 20mg Take 1 [facility] 20 mg 1-12 tablet by ity of tablet 00:00: mouth at [place] 00 bedtime. Medical Branch Insulin 2021-0 Yes [id number] 15U inject 15 [facility] Glargine 1-12 Units ity of 100 unit/mL 00:00: under the [place] (3 mL) 00 skin daily Medical injection before Agency breakfast. levothyroxi 2021-0 Yes [id number] 125ug Take 1 [facility] ne 125 mcg 1-12 tablet by [facility] tablet 00:00: mouth [place] 00 every Medical morning. Branch simvastatin 2021-0 Yes [id number] 20mg Take 1 [facility] 20 mg 1-12 tablet by [facility] tablet 00:00: mouth at [place] 00 bedtime. [facility] Insulin 2021-0 Yes [id number] 15U inject 15 [facility] Glargine 1-12 Units [facility] of 100 unit/mL 00:00: under the [place] (3 mL) 00 skin daily Medical injection before Agency breakfast. levothyroxi 2021-0 Yes [id number] 125ug Take 1 [facility] ne 125 mcg 1-12 tablet by [facility] of tablet 00:00: mouth [place] 00 every Medical morning. Branch simvastatin 2021-0 Yes [id number] 20mg Take 1 [facility] 20 mg 1-12 tablet by [facility] of tablet 00:00: mouth at [place] 00 bedtime. [facility] Insulin 2021-0 Yes [id number] 15U inject 15 [facility] Glargine 1-12 Units [facility] of 100 unit/mL 00:00: under the [place] (3 mL) 00 skin daily Medical injection before Agency breakfast. levothyroxi 2021-0 Yes [id number] 125ug Take 1 [facility] ne 125 mcg 1-12 tablet by [facility] of tablet 00:00: mouth [place] 00 every Medical morning. Branch simvastatin 2021-0 Yes [id number] 20mg Take 1 [facility] 20 mg 1-12 tablet by [facility] of tablet 00:00: mouth at [place] 00 bedtime. Medical Branch Insulin 2021-0 Yes [id number] 15U inject 15 [facility] Glargine 1-12 Units [facility] of 100 unit/mL 00:00: under the [place] (3 mL) 00 skin daily Medical injection before Agency breakfast. levothyroxi 2021-0 Yes [id number] 125ug Take 1 [facility] ne 125 mcg 1-12 tablet by [facility] of tablet 00:00: mouth [place] 00 every Medical morning. Branch simvastatin 2021-0 Yes [id number] 20mg Take 1 [facility] 20 mg 1-12 tablet by [facility] of tablet 00:00: mouth at [place] 00 bedtime. Medical Branch Insulin 2021-0 Yes [id number] 15U inject 15 [facility] Glargine 1-12 Units [facility] of 100 unit/mL 00:00: under the [place] (3 mL) 00 skin daily Medical injection before Agency breakfast. levothyroxi 2021-0 Yes [id number] 125ug Take 1 [facility] ne 125 mcg 1-12 tablet by [facility] of tablet 00:00: mouth [place] 00 every Medical morning. Branch simvastatin 2021-0 Yes [id number] 20mg Take 1 [facility] 20 mg 1-12 tablet by [facility] of tablet 00:00: mouth at [place] 00 bedtime. Medical Branch Insulin 2021-0 Yes [id number] 15U inject 15 [facility] Glargine 1-12 Units [facility] of 100 unit/mL 00:00: under the [place] (3 mL) 00 skin daily Medical injection before Agency breakfast. levothyroxi 2021-0 Yes [id number] 125ug Take 1 [facility] ne 125 mcg 1-12 tablet by [facility] of tablet 00:00: mouth [place] 00 every Medical morning. Branch simvastatin 2021-0 Yes [id number] 20mg Take 1 [facility] 20 mg 1-12 tablet by [facility] of tablet 00:00: mouth at [place] 00 bedtime. Medical Branch Insulin 2021-0 Yes [id number] 15U inject 15 [facility] Glargine 1-12 Units [facility] of 100 unit/mL 00:00: under the [place] (3 mL) 00 skin daily Medical injection before Agency breakfast. levothyroxi 2021-0 Yes [id number] 125ug Take 1 [facility] ne 125 mcg 1-12 tablet by [facility] of tablet 00:00: mouth [place] 00 every Medical morning. Branch simvastatin 2022-0 Yes [id number] 20mg Take 1 [facility] 20 mg 1-12 tablet by [facility] of tablet 00:00: mouth at [place] 00 bedtime. [facility] Insulin Yes [id number] 15U inject 15 [facility] Glargine 1-12 Units [facility] of 100 unit/mL 00:00: under the [place] (3 mL) 00 skin daily Medical injection before Agency breakfast. levothyroxi Yes [id number] 125ug Take 1 [facility] ne 125 mcg 1-12 tablet by [facility] of tablet 00:00: mouth [place] 00 every Medical morning. Branch simvastatin Yes [id number] 20mg Take 1 [facility] 20 mg 1-12 tablet by [facility] of tablet 00:00: mouth at [place] 00 bedtime. [facility] Insulin Yes [id number] 15U inject 15 [facility] Glargine 1-12 Units [facility] of 100 unit/mL 00:00: under the [place] (3 mL) 00 skin daily Medical injection before Agency breakfast. levothyroxi Yes [id number] 125ug Take 1 [facility] ne 125 mcg 1-12 tablet by [facility] of tablet 00:00: mouth [place] 00 every Medical morning. Branch simvastatin Yes [id number] 20mg Take 1 [facility] 20 mg 1-12 tablet by [facility] of tablet 00:00: mouth at [place] 00 bedtime. [facility] Insulin Yes [id number] 15U inject 15 [facility] Glargine 1-12 Units [facility] of 100 unit/mL 00:00: under the [place] (3 mL) 00 skin daily Medical injection before Agency breakfast. levothyroxi Yes [id number] 125ug Take 1 [facility] ne 125 mcg 1-12 tablet by [facility] of tablet 00:00: mouth [place] 00 every Medical morning. Branch simvastatin Yes [id number] 20mg Take 1 [facility] 20 mg 1-12 tablet by [facility] of tablet 00:00: mouth at [place] 00 bedtime. [facility] Insulin Yes [id number] 15U inject 15 [facility] Glargine 1-12 Units [facility] of 100 unit/mL 00:00: under the [place] (3 mL) 00 skin daily Medical injection before Agency breakfast. Levothyroxi Yes 1{tbl} Take 1 [facility] [...] Tablet 00:00: nightly 00 methocarbam 2020-10 Yes [id number] 500mg Take 1 [facility] oL 2-24 tablet by [facility] of (ROBAXIN) 00:00: mouth 4 [place] 500 mg 00 (four) Medical tablet times Branch daily. phenazopyri 2020-10 Yes [id number] 200mg Take 2 [facility] dine 100 mg 2-24 tablets by it y of tablet 00:00: mouth 3 [place] 00 (three) Medical times Branch daily. methocarbam 2020-10 Yes [id number] 500mg Take 1 [facility] oL 2-24 tablet by [facility] of (ROBAXIN) 00:00: mouth 4 [place] 500 mg 00 (four) Medical tablet times Branch daily. phenazopyri 2020-10 Yes [id number] 200mg Take 2 [facility] dine 100 mg 2-24 tablets by it y of tablet 00:00: mouth 3 [place] 00 (three) Medical times Branch daily. methocarbam 2020-10 Yes [id number] 500mg Take 1 [facility] oL 2-24 tablet by [facility] of (ROBAXIN) 00:00: mouth 4 [place] 500 mg 00 (four) Medical tablet times Branch daily. phenazopyri 2020-10 Yes [id number] 200mg Take 2 [facility] dine 100 mg 2-24 tablets by it y of tablet 00:00: mouth 3 [place] 00 (three) Medical times Branch daily. methocarbam 2020-10 Yes [id number] 500mg Take 1 [facility] oL 2-24 tablet by [facility] of (ROBAXIN) 00:00: mouth 4 [place] 500 mg 00 (four) Medical tablet times Branch daily. phenazopyri 2020-10 Yes [id number] 200mg Take 2 [facility] dine 100 mg 2-24 tablets by it y of tablet 00:00: mouth 3 [place] 00 (three) Medical times Branch daily. methocarbam 2020-10 Yes [id number] 500mg Take 1 [facility] oL 2-24 tablet by [facility] of (ROBAXIN) 00:00: mouth 4 [place] 500 mg 00 (four) Medical tablet times Branch daily. phenazopyri 2020-10 Yes [id number] 200mg Take 2 [facility] dine 100 mg 2-24 tablets by it y of tablet 00:00: mouth 3 [place] 00 (three) Medical times Branch daily. methocarbam 2020-10 Yes [id number] 500mg Take 1 [facility] oL 2-24 tablet by [facility] of (ROBAXIN) 00:00: mouth 4 [place] 500 mg 00 (four) Medical tablet times Branch daily. phenazopyri 2020-10 Yes [id number] 200mg Take 2 [facility] dine 100 mg 2-24 tablets by it y of tablet 00:00: mouth 3 [place] 00 (three) Medical times Branch daily. methocarbam 2020-10 Yes [id number] 500mg Take 1 [facility] oL 2-24 tablet by [facility] of (ROBAXIN) 00:00: mouth 4 [place] 500 mg 00 (four) Medical tablet times Branch daily. phenazopyri 2020-10 Yes [id number] 200mg Take 2 [facility] dine 100 mg 2-24 tablets by it y of tablet 00:00: mouth 3 [place] 00 (three) Medical times Branch daily. methocarbam 2020-10 Yes [id number] 500mg Take 1 [facility] oL 2-24 tablet by [facility] of (ROBAXIN) 00:00: mouth 4 [place] 500 mg 00 (four) Medical tablet times Branch daily. phenazopyri 2020-10 Yes [id number] 200mg Take 2 [facility] dine 100 mg 2-24 tablets by it y of tablet 00:00: mouth 3 [place] 00 (three) Medical times Branch daily. methocarbam 2020-10 Yes [id number] 500mg Take 1 [facility] oL 2-24 tablet by [facility] of (ROBAXIN) 00:00: mouth 4 [place] 500 mg 00 (four) Medical tablet times Branch daily. phenazopyri 2020-10 Yes [id number] 200mg Take 2 [facility] dine 100 mg 2-24 tablets by it y of tablet 00:00: mouth 3 [place] 00 (three) Medical times Branch daily. methocarbam 2020-10 Yes [id number] 500mg Take 1 [facility] oL 2-24 tablet by [facility] of (ROBAXIN) 00:00: mouth 4 [place] 500 mg 00 (four) Medical tablet times Branch daily. phenazopyri 2020-10 Yes [id number] 200mg Take 2 [facility] dine 100 mg 2-24 tablets by it y of tablet 00:00: mouth 3 [place] 00 (three) Medical times Branch daily. methocarbam 2020-10 Yes [id number] 500mg Take 1 [facility] oL 2-24 tablet by [facility] of (ROBAXIN) 00:00: mouth 4 [place] 500 mg 00 (four) Medical tablet times Branch daily. phenazopyri 2020-10 Yes [id number] 200mg Take 2 [facility] dine 100 mg 2-24 tablets by it y of tablet 00:00: mouth 3 (three) Medical times Branch daily. methocarbam 2020-10 Yes [id number] 500mg Take 1 [facility] oL 2-24 tablet by [facility] of (ROBAXIN) 00:00: mouth 4 [place] 500 mg 00 (four) Medical tablet times Branch daily. phenazopyri 2020-10 Yes [id number] 200mg Take 2 [facility] dine 100 mg 2-24 tablets by it y of tablet 00:00: mouth 3 (three) Medical times Branch daily. methocarbam 2020-10 Yes [id number] 500mg Take 1 [facility] oL 2-24 tablet by [facility]y of (ROBAXIN) 00:00: mouth 4 [place] 500 mg 00 (four) Medical tablet times Branch daily. phenazopyri 2020-10 Yes [id number] 200mg Take 2 [facility] dine 100 mg 2-24 tablets by it y of tablet 00:00: mouth 3 [place] 00 (three) Medical times Branch daily. methocarbam 2020-10 Yes [id number] 500mg Take 1 [facility] oL 2-24 tablet by [facility]y of (ROBAXIN) 00:00: mouth 4 [place] 500 mg 00 (four) Medical tablet times Branch daily. phenazopyri 2020-10 Yes [id number] 200mg Take 2 [facility] dine 100 mg 2-24 tablets by it y of tablet 00:00: mouth 3 00 (three) Medical times Branch daily. methocarbam 2020-10 Yes [id number] 500mg Take 1 [facility] oL 2-24 tablet by ity of (ROBAXIN) 00:00: mouth 4 [place] 500 mg 00 (four) Medical tablet times Branch daily. phenazopyri 2020-10 Yes [id number] 200mg Take 2 [facility] dine 100 mg 2-24 tablets by it y of tablet 00:00: mouth 3 00 (three) Medical times Branch daily. methocarbam 2020-10 Yes [id number] 500mg Take 1 [facility] oL 2-24 tablet by ity of (ROBAXIN) 00:00: mouth 4 [place] 500 mg 00 (four) Medical tablet times Branch daily. phenazopyri 2020-10 Yes [id number] 200mg Take 2 [facility] dine 100 mg 2-24 tablets by it y of tablet 00:00: mouth 3 (three) Medical times Branch daily. methocarbam 2020-10 Yes [id number] 500mg Take 1 [facility] oL 2-24 tablet by ity of (ROBAXIN) 00:00: mouth 4 [place] 500 mg 00 (four) Medical tablet times Branch daily. phenazopyri 2020-10 Yes [id number] 200mg Take 2 [facility] dine 100 mg 2-24 tablets by it y of tablet 00:00: mouth 3 (three) Medical times Branch daily. methocarbam 2020-10 Yes [id number] 500mg Take 1 [facility] oL 2-24 tablet by ity of (ROBAXIN) 00:00: mouth 4 [place] 500 mg 00 (four) Medical tablet times Branch daily. phenazopyri 2020-10 Yes [id number] 200mg Take 2 [facility] dine 100 mg 2-24 tablets by it y of tablet 00:00: mouth 3 00 (three) Medical times Branch daily. methocarbam 2020-10 Yes [id number] 500mg Take 1 [facility] oL 2-24 tablet by ity of (ROBAXIN) 00:00: mouth 4 [place] 500 mg 00 (four) Medical tablet times Branch daily. phenazopyri 2020-10 Yes [id number] 200mg Take 2 [facility] dine 100 mg 2-24 tablets by it y of tablet 00:00: mouth 3 00 (three) Medical times Branch daily. methocarbam 2020-10 Yes [id number] 500mg Take 1 [facility] oL 2-24 tablet by ity of (ROBAXIN) 00:00: mouth 4 [place] 500 mg 00 (four) Medical tablet times Branch daily. phenazopyri 2020-10 Yes [id number] 200mg Take 2 [facility] dine 100 mg 2-24 tablets by it y of tablet 00:00: mouth 3 00 (three) Medical times Branch daily. methocarbam 2020-10 Yes [id number] 500mg Take 1 [facility] oL 2-24 tablet by ity of (ROBAXIN) 00:00: mouth 4 [place] 500 mg 00 (four) Medical tablet times Branch daily. phenazopyri 2020-10 Yes [id number] 200mg Take 2 [facility] dine 100 mg 2-24 tablets by it y of tablet 00:00: mouth 3 00 (three) Medical times Branch daily. methocarbam 2020-10 Yes [id number] 500mg Take 1 [facility] oL 2-24 tablet by ity of (ROBAXIN) 00:00: mouth 4 [place] 500 mg 00 (four) Medical tablet times Branch daily. phenazopyri 2020-10 Yes [id number] 200mg Take 2 [facility] dine 100 mg 2-24 tablets by it y of tablet 00:00: mouth 3 (three) Medical times Branch daily. methocarbam 2020-10 Yes [id number] 500mg Take 1 [facility] oL 2-24 tablet by ity of (ROBAXIN) 00:00: mouth 4 [place] 500 mg 00 (four) Medical tablet times Branch daily. phenazopyri 2020-10 Yes [id number] 200mg Take 2 [facility] dine 100 mg 2-24 tablets by it y of tablet 00:00: mouth 3 00 (three) Medical times Branch daily. methocarbam 2020-10 Yes [id number] 500mg Take 1 [facility] oL 2-24 tablet by ity of (ROBAXIN) 00:00: mouth 4 [place] 500 mg 00 (four) Medical tablet times Branch daily. phenazopyri 2020-10 Yes [id number] 200mg Take 2 [facility] dine 100 mg 2-24 tablets by it y of tablet 00:00: mouth 3 00 (three) Medical times Branch daily. methocarbam 2020-10 Yes [id number] 500mg Take 1 [facility] oL 2-24 tablet by ity of (ROBAXIN) 00:00: mouth 4 [place] 500 mg 00 (four) Medical tablet times Branch daily. phenazopyri 2020-10 Yes [id number] 200mg Take 2 [facility] dine 100 mg 2-24 tablets by it y of tablet 00:00: mouth 3 [place] 00 (three) Medical times Branch daily. methocarbam 2020-10 Yes [id number] 500mg Take 1 [facility] oL 2-24 tablet by ity of (ROBAXIN) 00:00: mouth 4 [place] 500 mg 00 (four) Medical tablet times Branch daily. phenazopyri 2020-10 Yes [id number] 200mg Take 2 [facility] dine 100 mg 2-24 tablets by it y of tablet 00:00: mouth 3 (three) Medical times Branch daily. carvediloL 2020-10 Yes [id number] 25mg Take 1 [facility] 25 mg 1-16 tablet by [facility] of tablet 00:00: mouth 2 (two) Medical times Branch daily. carvediloL 2020-10 Yes [id number] 25mg Take 1 [facility] 25 mg 1-16 tablet by [facility] of tablet 00:00: mouth (two) Medical times Branch daily. carvediloL 2020-10 Yes [id number] 25mg Take 1 [facility] 25 mg 1-16 tablet by it[facility] of tablet 00:00: mouth 2 (two) Medical times Branch daily. carvediloL 2020-10 Yes [id number] 25mg Take 1 [facility] 25 mg 1-16 tablet by [facility] of tablet 00:00: mouth 2 (two) Medical times Branch daily. carvediloL 2020-10 Yes [id number] 25mg Take 1 [facility] 25 mg 1-16 tablet by [facility]y of tablet 00:00: mouth 2 (two) Medical times Branch daily. carvediloL 2020-10 Yes [id number] 25mg Take 1 [facility] 25 mg 1-16 tablet by [facility] of tablet 00:00: mouth 2 (two) Medical times Branch daily. carvediloL 2020-10 Yes [id number] 25mg Take 1 [facility] 25 mg 1-16 tablet by ity of tablet 00:00: mouth 2 (two) Medical times Branch daily. carvediloL 2020-10 Yes [id number] 25mg Take 1 [facility] 25 mg 1-16 tablet by it[facility] of tablet 00:00: mouth (two) Medical times Branch daily. carvediloL 2020-10 Yes [id number] 25mg Take 1 [facility] 25 mg 1-16 tablet by it[facility] of tablet 00:00: mouth (two) Medical times Branch daily. carvediloL 2020-10 Yes [id number] 25mg Take 1 [facility] n[facility] 25 mg 1-16 tablet by [facility]y of tablet 00:00: mouth (two) Medical times Branch daily. carvediloL 2020-10 Yes [id number] 25mg Take 1 [facility] 25 mg 1-16 tablet by ity of tablet 00:00: mouth (two) Medical times Branch daily. carvediloL 2020-10 Yes [id number] 25mg Take 1 [facility] 25 mg 1-16 tablet by [facility]y of tablet 00:00: mouth (two) Medical times Branch daily. carvediloL 2020-10 Yes [id number] 25mg Take 1 [facility] 25 mg 1-16 tablet by ity of tablet 00:00: mouth (two) Medical times Branch daily. carvediloL 2020-10 Yes [id number] 25mg Take 1 [facility] n[facility] 25 mg 1-16 tablet by ity of tablet 00:00: mouth (two) Medical times Branch daily. carvediloL 2020-10 Yes [id number] 25mg Take 1 [facility] 25 mg 1-16 tablet by ity of tablet 00:00: mouth (two) Medical times Branch daily. carvediloL 2020-10 Yes [id number] 25mg Take 1 [facility] 25 mg 1-16 tablet by ity of tablet 00:00: mouth (two) Medical times Branch daily. carvediloL 2020-10 Yes [id number] 25mg Take 1 [facility] 25 mg 1-16 tablet by ity of tablet 00:00: mouth (two) Medical times Branch daily. carvediloL 2020-10 Yes [id number] 25mg Take 1 [facility] 25 mg 1-16 tablet by ity of tablet 00:00: mouth (two) Medical times Branch daily. carvediloL 2020-10 Yes [id number] 25mg Take 1 [facility] 25 mg 1-16 tablet by ity of tablet 00:00: mouth 2 (two) Medical times Branch daily. carvediloL 2020-10 Yes [id number] 25mg Take 1 [facility] 25 mg 1-16 tablet by ity of tablet 00:00: mouth 2 (two) Medical times Branch daily. carvediloL 2020-10 Yes [id number] 25mg Take 1 [facility] 25 mg 1-16 tablet by ity of tablet 00:00: mouth 2 (two) Medical times Branch daily. carvediloL 2020-10 Yes [id number] 25mg Take 1 [facility] 25 mg 1-16 tablet by ity of tablet 00:00: mouth (two) Medical times Branch daily. carvediloL 2020-10 Yes [id number] 25mg Take 1 [facility] 25 mg 1-16 tablet by [facility] of tablet 00:00: mouth (two) Medical times Branch daily. carvediloL 2020-10 Yes [id number] 25mg Take 1 [facility] n[facility] 25 mg 1-16 tablet by ity of tablet 00:00: mouth (two) Medical times Branch daily. carvediloL 2020-10 Yes [id number] 25mg Take 1 [facility] 25 mg 1-16 tablet by ity of tablet 00:00: mouth (two) Medical times Branch daily. carvediloL 2020-10 Yes [id number] 25mg Take 1 [facility] n[facility] 25 mg 1-16 tablet by ity of tablet 00:00: mouth (two) Medical times Branch daily. clobetasoL 2020-10 Yes [id number] Apply to [facility] 0.05 % 0-05 area(s) 2 ity of ointment 00:00: (two) times Medical daily. Branch clobetasoL 2020-10 Yes [id number] Apply to [facility] 0.05 % 0-05 area(s) 2 ity of ointment 00:00: (two) times Medical daily. Branch clobetasoL 2020-10 Yes [id number] Apply to [facility] 0.05 % 0-05 area(s) 2 ity of ointment 00:00: (two) [place] 00 times Medical daily. Branch clobetasoL 1-1 Yes [id number] Apply to [facility] 0.05 % 0-05 area(s) 2 ity of ointment 00:00: (two) [place] 00 times Medical daily. Branch clobetasoL 2021-1 Yes [id number] Apply to [facility] 0.05 % 0-05 area(s) 2 ity of ointment 00:00: (two) [place] 00 times Medical daily. Branch clobetasoL 1-1 Yes [id number] Apply to [facility] 0.05 % 0-05 area(s) 2 ity of ointment 00:00: (two) [place] 00 times Medical daily. Branch clobetasoL 1-1 Yes [id number] Apply to [facility] 0.05 % 0-05 area(s) 2 ity of ointment 00:00: (two) [place] 00 times Medical daily. Branch clobetasoL 1-1 Yes [id number] Apply to [facility] 0.05 % 0-05 area(s) 2 ity of ointment 00:00: (two) [place] 00 times Medical daily. Branch clobetasoL 1-1 Yes [id number] Apply to [facility] 0.05 % 0-05 area(s) 2 ity of ointment 00:00: (two) [place] 00 times Medical daily. Branch clobetasoL 1-1 Yes [id number] Apply to [facility] 0.05 % 0-05 area(s) 2 ity of ointment 00:00: (two) [place] 00 times Medical daily. Branch clobetasoL 1-1 Yes [id number] Apply to [facility] 0.05 % 0-05 area(s) 2 ity of ointment 00:00: (two) [place] 00 times Medical daily. Branch clobetasoL 1-1 Yes [id number] Apply to [facility] 0.05 % 0-05 area(s) 2 ity of ointment 00:00: (two) [place] 00 times Medical daily. Branch clobetasoL 2021-1 Yes [id number] Apply to [facility] 0.05 % 0-05 area(s) 2 ity of ointment 00:00: (two) [place] 00 times Medical daily. Branch clobetasoL 2021-1 Yes [id number] Apply to [facility] 0.05 % 0-05 area(s) 2 ity of ointment 00:00: (two) [place] 00 times Medical daily. Branch clobetasoL 2020-1 Yes [id number] Apply to [facility] 0.05 % 0-05 area(s) 2 ity of ointment 00:00: (two) [place] 00 times Medical daily. Branch clobetasoL 1-1 Yes [id number] Apply to [facility] 0.05 % 0-05 area(s) 2 ity of ointment 00:00: (two) [place] 00 times Medical daily. Branch clobetasoL 2020-1 Yes [id number] Apply to [facility] 0.05 % 0-05 area(s) 2 ity of ointment 00:00: (two) [place] 00 times Medical daily. Branch clobetasoL 1-1 Yes [id number] Apply to [facility] 0.05 % 0-05 area(s) 2 ity of ointment 00:00: (two) [place] 00 times Medical daily. Branch clobetasoL 2020-1 Yes [id number] Apply to [facility] 0.05 % 0-05 area(s) 2 ity of ointment 00:00: (two) [place] 00 times Medical daily. Branch clobetasoL 1-1 Yes [id number] Apply to [facility] 0.05 % 0-05 area(s) 2 ity of ointment 00:00: (two) [place] 00 times Medical daily. Branch clobetasoL 1-1 Yes [id number] Apply to [facility] 0.05 % 0-05 area(s) 2 ity of ointment 00:00: (two) [place] 00 times Medical daily. Branch clobetasoL 1-1 Yes [id number] Apply to [facility] 0.05 % 0-05 area(s) 2 ity of ointment 00:00: (two) [place] 00 times Medical daily. Branch clobetasoL 1-1 Yes [id number] Apply to [facility] 0.05 % 0-05 area(s) 2 ity of ointment 00:00: (two) [place] 00 times Medical daily. Branch clobetasoL 1-1 Yes [id number] Apply to [facility] 0.05 % 0-05 area(s) 2 ity of ointment 00:00: (two) [place] 00 times Medical daily. Branch clobetasoL 2020-10- No [id number] Apply to [facility] 0.05 % 0-05 - area(s) 2 ity of ointment 00:00: 00:00 (two) [place] 00 :00 times Medical daily. Branch OMEPRAZOLE 2020-0 Yes [id number] TAKE ONE [facility] 40 mg 9-30 CAPSULE BY ity of capsule 00:00: MOUTH [place] 00 DAILY Medical Branch OMEPRAZOLE 1-0 Yes [id number] TAKE ONE [facility] 40 mg 9-30 CAPSULE BY ity of capsule 00:00: MOUTH [place] DAILY Medical Branch OMEPRAZOLE 1-0 Yes [id number] TAKE ONE [facility] 40 mg 9-30 CAPSULE BY ity of capsule 00:00: [facility] DAILY Medical Branch OMEPRAZOLE 1-0 Yes [id number] TAKE ONE [facility] 40 mg 9-30 CAPSULE BY ity of capsule 00:00: [facility] DAILY Medical Branch OMEPRAZOLE 2021-0 Yes [id number] TAKE ONE [facility] 40 mg 9-30 CAPSULE BY ity of capsule 00:00: [facility] DAILY Medical Branch OMEPRAZOLE 1-0 Yes [id number] TAKE ONE [facility] 40 mg 9-30 CAPSULE BY ity of capsule 00:00: [facility] DAILY Medical Branch OMEPRAZOLE 2021-0 Yes [id number] TAKE ONE [facility] 40 mg 9-30 CAPSULE BY ity of capsule 00:00: [facility] DAILY Medical Branch OMEPRAZOLE 2021-0 Yes [id number] TAKE ONE [facility] 40 mg 9-30 CAPSULE BY ity of capsule 00:00: [facility] DAILY Medical Branch OMEPRAZOLE 2021-0 Yes [id number] TAKE ONE [facility] 40 mg 9-30 CAPSULE BY ity of capsule 00:00: [facility] DAILY Medical Branch OMEPRAZOLE 2021-0 Yes [id number] TAKE ONE [facility] 40 mg 9-30 CAPSULE BY ity of capsule 00:00: [facility] DAILY Medical Branch OMEPRAZOLE 2021-0 Yes [id number] TAKE ONE [facility] 40 mg 9-30 CAPSULE BY ity of capsule 00:00: MOUTH [place] DAILY Medical Branch OMEPRAZOLE 2021-0 Yes [id number] TAKE ONE [facility] 40 mg 9-30 CAPSULE BY ity of capsule 00:00: MOUTH [place] 00 DAILY Medical Branch OMEPRAZOLE 2021-0 Yes [id number] TAKE ONE [facility] 40 mg 9-30 CAPSULE BY ity of capsule 00:00: MOUTH [place] 00 DAILY Medical Branch OMEPRAZOLE 202-0 Yes [id number] TAKE ONE [facility] 40 mg 9-30 CAPSULE BY ity of capsule 00:00: MOUTH [place] DAILY Medical Branch OMEPRAZOLE 202-0 Yes [id number] TAKE ONE [facility] 40 mg 9-30 CAPSULE BY ity of capsule 00:00: MOUTH [place] DAILY Medical Branch OMEPRAZOLE 202-0 Yes [id number] TAKE ONE [facility] 40 mg 9-30 CAPSULE BY ity of capsule 00:00: MOUTH [place] DAILY Medical Branch OMEPRAZOLE 2020-0 Yes [id number] TAKE ONE [facility] 40 mg 9-30 CAPSULE BY ity of capsule 00:00: [facility] DAILY Medical Branch OMEPRAZOLE 2020-0 Yes [id number] TAKE ONE [facility] 40 mg 9-30 CAPSULE BY ity of capsule 00:00: [facility] DAILY Medical Branch OMEPRAZOLE 2020-0 Yes [id number] TAKE ONE [facility] 40 mg 9-30 CAPSULE BY ity of capsule 00:00: MOUTH [place] DAILY Medical Branch OMEPRAZOLE 202-0 Yes [id number] TAKE ONE [facility] 40 mg 9-30 CAPSULE BY ity of capsule 00:00: MOUTH [place] DAILY Medical Branch OMEPRAZOLE 2020-0 Yes [id number] TAKE ONE [facility] 40 mg 9-30 CAPSULE BY ity of capsule 00:00: MOUTH [place] DAILY Medical Branch OMEPRAZOLE 2020-0 Yes [id number] TAKE ONE [facility] 40 mg 9-30 CAPSULE BY ity of capsule 00:00: [facility] DAILY Medical Branch OMEPRAZOLE 202-0 Yes [id number] TAKE ONE [facility] 40 mg 9-30 CAPSULE BY ity of capsule 00:00: [facility] DAILY Medical Branch OMEPRAZOLE 2021-0 2023- No [id number] TAKE ONE [facility] 40 mg 9-30 07-24 CAPSULE BY ity of capsule 00:00: 00:00 MOUTH [place] 00 :00 DAILY Medical Branch blood sugar 2020-0 Yes [id number] 1{strip 1 Strip [facility] diagnostic 5-24 } before ity of (BLOOD 00:00: meals and [place] GLUCOSE 00 at Medical TEST) strip bedtime. [place] Check glucose once daily before breakfast; Diagnosis code R73.03 blood sugar 2020-0 Yes [id number] 1{strip 1 Strip [facility] diagnostic 5-24 } before ity of (BLOOD 00:00: meals and [place] GLUCOSE 00 at Medical TEST) strip bedtime. [facility] Check glucose once daily before breakfast; Diagnosis code R73.03 blood sugar 2020-0 Yes [id number] 1{strip 1 Strip [facility] diagnostic 5-24 } before ity of (BLOOD 00:00: meals and [place] GLUCOSE 00 at Medical TEST) strip bedtime. [facility] Check glucose once daily before breakfast; Diagnosis code R73.03 blood sugar 2020-0 Yes [id number] 1{strip 1 Strip [facility] diagnostic 5-24 } before ity of (BLOOD 00:00: meals and [place] GLUCOSE 00 at Medical TEST) strip bedtime. [facility] ch Check glucose once daily before breakfast; Diagnosis code R73.03 blood sugar 2020-0 Yes [id number] 1{strip 1 Strip [facility] diagnostic 5-24 } before ity of (BLOOD 00:00: meals and [place] GLUCOSE 00 at Medical TEST) strip bedtime. Bran ch Check glucose once daily before breakfast; Diagnosis code R73.03 blood sugar 2020- Yes [id number] 1{strip 1 Strip [facility] diagnostic 5-24 } before ity of (BLOOD 00:00: meals and [place] GLUCOSE 00 at Medical TEST) strip bedtime. Bran ch Check glucose once daily before breakfast; Diagnosis code R73.03 blood sugar 2020-0 Yes [id number] 1{strip 1 Strip [facility] diagnostic 5-24 } before ity of (BLOOD 00:00: meals and [place] GLUCOSE 00 at Medical TEST) strip bedtime. Bran ch Check glucose once daily before breakfast; Diagnosis code R73.03 blood sugar 2020-0 Yes [id number] 1{strip 1 Strip [facility] diagnostic 5-24 } before ity of (BLOOD 00:00: meals and [place] GLUCOSE 00 at Medical TEST) strip bedtime. Bran ch Check glucose once daily before breakfast; Diagnosis code R73.03 blood sugar 2020-0 Yes [id number] 1{strip 1 Strip [facility] diagnostic 5-24 } before ity of (BLOOD 00:00: meals and [place] GLUCOSE 00 at Medical TEST) strip bedtime. Bran ch Check glucose once daily before breakfast; Diagnosis code R73.03 blood sugar 2020-0 Yes [id number] 1{strip 1 Strip [facility] diagnostic 5-24 } before ity of (BLOOD 00:00: meals and [place] GLUCOSE 00 at Medical TEST) strip bedtime. Bran ch Check glucose once daily before breakfast; Diagnosis code R73.03 blood sugar 2020-0 Yes [id number] 1{strip 1 Strip [facility] diagnostic 5-24 } before ity of (BLOOD 00:00: meals and [place] GLUCOSE 00 at Medical TEST) strip bedtime. Bran ch Check glucose once daily before breakfast; Diagnosis code R73.03 blood sugar 2020-0 Yes [id number] 1{strip 1 Strip [facility] diagnostic 5-24 } before ity of (BLOOD 00:00: meals and [place] GLUCOSE 00 at Medical TEST) strip bedtime. Bran ch Check glucose once daily before breakfast; Diagnosis code R73.03 blood sugar 2020-0 Yes [id number] 1{strip 1 Strip [facility] diagnostic 5-24 } before ity of (BLOOD 00:00: meals and [place] GLUCOSE 00 at Medical TEST) strip bedtime. Bran ch Check glucose once daily before breakfast; Diagnosis code R73.03 blood sugar 2020-0 Yes [id number] 1{strip 1 Strip [facility] diagnostic 5-24 } before ity of (BLOOD 00:00: meals and [place] GLUCOSE 00 at Medical TEST) strip bedtime. Bran ch Check glucose once daily before breakfast; Diagnosis code R73.03 blood sugar 2020-0 Yes [id number] 1{strip 1 Strip [facility] diagnostic 5-24 } before ity of (BLOOD 00:00: meals and [place] GLUCOSE 00 at Medical TEST) strip bedtime. Bran ch Check glucose once daily before breakfast; Diagnosis code R73.03 blood sugar 2020-0 Yes [id number] 1{strip 1 Strip [facility] diagnostic 5-24 } before ity of (BLOOD 00:00: meals and [place] GLUCOSE 00 at Medical TEST) strip bedtime. Bran ch Check glucose once daily before breakfast; Diagnosis code R73.03 blood sugar 2020-0 Yes [id number] 1{strip 1 Strip [facility] diagnostic 5-24 } before ity of (BLOOD 00:00: meals and [place] GLUCOSE 00 at Medical TEST) strip bedtime. Bran ch Check glucose once daily before breakfast; Diagnosis code R73.03 blood sugar 2020-0 Yes [id number] 1{strip 1 Strip [facility] diagnostic 5-24 } before ity of (BLOOD 00:00: meals and [place] GLUCOSE 00 at Medical TEST) strip bedtime. Bran ch Check glucose once daily before breakfast; Diagnosis code R73.03 blood sugar 2020-0 Yes [id number] 1{strip 1 Strip [facility] diagnostic 5-24 } before ity of (BLOOD 00:00: meals and [place] GLUCOSE 00 at Medical TEST) strip bedtime. Bran ch Check glucose once daily before breakfast; Diagnosis code R73.03 blood sugar 2020-0 Yes [id number] 1{strip 1 Strip [facility] diagnostic 5-24 } before ity of (BLOOD 00:00: meals and [place] GLUCOSE 00 at Medical TEST) strip bedtime. Bran ch Check glucose once daily before breakfast; Diagnosis code R73.03 blood sugar 2020-0 Yes [id number] 1{strip 1 Strip [facility] diagnostic 5-24 } before ity of (BLOOD 00:00: meals and [place] GLUCOSE 00 at Medical TEST) strip bedtime. Bran ch Check glucose once daily before breakfast; Diagnosis code R73.03 blood sugar 2020- Yes [id number] 1{strip 1 Strip [facility] diagnostic 5-24 } before ity of (BLOOD 00:00: meals and [place] GLUCOSE 00 at Medical TEST) strip bedtime. Bran ch Check glucose once daily before breakfast; Diagnosis code R73.03 blood sugar 2020- Yes [id number] 1{strip 1 Strip [facility] diagnostic 5-24 } before ity of (BLOOD 00:00: meals and [place] GLUCOSE 00 at Medical TEST) strip bedtime. Bran ch Check glucose once daily before breakfast; Diagnosis code R73.03 blood sugar 2020- Yes [id number] 1{strip 1 Strip [facility] diagnostic 5-24 } before ity of (BLOOD 00:00: meals and [place] GLUCOSE 00 at Medical TEST) strip bedtime. Bran ch Check glucose once daily before breakfast; Diagnosis code R73.03 blood sugar 2020- Yes [id number] 1{strip 1 Strip [facility] diagnostic 5-24 } before ity of (BLOOD 00:00: meals and [place] GLUCOSE 00 at Medical TEST) strip bedtime. Bran ch Check glucose once daily before breakfast; Diagnosis code R73.03 blood sugar 2020-0 Yes [id number] 1{strip 1 Strip [facility] diagnostic 5-24 } before ity of (BLOOD 00:00: meals and [place] GLUCOSE 00 at Medical TEST) strip bedtime. Bran ch Check glucose once daily before breakfast; Diagnosis code R73.03 blood sugar 2020-0 Yes [id number] 1{strip 1 Strip [facility] diagnostic 5-24 } before ity of (BLOOD 00:00: meals and [place] GLUCOSE 00 at Medical TEST) strip bedtime. Bran ch Check glucose once daily before breakfast; Diagnosis code R73.03 Blood-Gluco 2021-0 Yes [id number] Check U nivers se Meter 4-20 glucose ity of Kit 00:00: once daily [place] 00 before Medical breakfast; Branch Diagnosis code R73.03 Blood-Gluco 2021-0 Yes [id number] Check U nivers se Meter 4-20 glucose ity of Kit 00:00: once daily [place] 00 before Medical breakfast; Branch Diagnosis code R73.03 Blood-Gluco 2021-0 Yes [id number] Check U nivers se Meter 4-20 glucose ity of Kit 00:00: once daily [place] 00 before Medical breakfast; Branch Diagnosis code R73.03 Blood-Gluco 2021-0 Yes [id number] Check U nivers se Meter 4-20 glucose ity of Kit 00:00: once daily [place] 00 before Medical breakfast; Branch Diagnosis code R73.03 Blood-Gluco 2021-0 Yes [id number] Check U nivers se Meter 4-20 glucose ity of Kit 00:00: once daily [place] 00 before Medical breakfast; Branch Diagnosis code R73.03 Blood-Gluco 2021-0 Yes [id number] Check U nivers se Meter 4-20 glucose ity of Kit 00:00: once daily [place] 00 before Medical breakfast; Branch Diagnosis code R73.03 Blood-Gluco 2021-0 Yes [id number] Check U nivers se Meter 4-20 glucose ity of Kit 00:00: once daily [place] 00 before Medical breakfast; Branch Diagnosis code R73.03 Blood-Gluco 2021-0 Yes [id number] Check U nivers se Meter 4-20 glucose ity of Kit 00:00: once daily [place] 00 before Medical breakfast; Branch Diagnosis code R73.03 Blood-Gluco 2021-0 Yes [id number] Check U nivers se Meter 4-20 glucose ity of Kit 00:00: once daily [place] 00 before Medical breakfast; Branch Diagnosis code R73.03 Blood-Gluco 2021-0 Yes [id number] Check U nivers se Meter 4-20 glucose ity of Kit 00:00: once daily [place] 00 before Medical breakfast; Branch Diagnosis code R73.03 Blood-Gluco 2021-0 Yes [id number] Check U nivers se Meter 4-20 glucose ity of Kit 00:00: once daily [place] 00 before Medical breakfast; Branch Diagnosis code R73.03 Blood-Gluco 2021-0 Yes [id number] Check U nivers se Meter 4-20 glucose ity of Kit 00:00: once daily [place] 00 before Medical breakfast; Branch Diagnosis code R73.03 Blood-Gluco 2021-0 Yes [id number] Check U nivers se Meter 4-20 glucose ity of Kit 00:00: once daily [place] 00 before Medical breakfast; Branch Diagnosis code R73.03 Blood-Gluco 2021-0 Yes [id number] Check U nivers se Meter 4-20 glucose ity of Kit 00:00: once daily [place] 00 before Medical breakfast; Branch Diagnosis code R73.03 Blood-Gluco 2021-0 Yes [id number] Check U nivers se Meter 4-20 glucose ity of Kit 00:00: once daily [place] 00 before Medical breakfast; Branch Diagnosis code R73.03 Blood-Gluco 2021-0 Yes [id number] Check U nivers se Meter 4-20 glucose ity of Kit 00:00: once daily [place] 00 before Medical breakfast; Branch Diagnosis code R73.03 Blood-Gluco 2021-0 Yes [id number] Check U nivers se Meter 4-20 glucose ity of Kit 00:00: once daily [place] 00 before Medical breakfast; Branch Diagnosis code R73.03 Blood-Gluco 2021-0 Yes [id number] Check U nivers se Meter 4-20 glucose ity of Kit 00:00: once daily [place] 00 before Medical breakfast; Branch Diagnosis code R73.03 Blood-Gluco 2021-0 Yes [id number] Check U nivers se Meter 4-20 glucose ity of Kit 00:00: once daily [place] 00 before Medical breakfast; Branch Diagnosis code R73.03 Blood-Gluco 2021-0 Yes [id number] Check U nivers se Meter 4-20 glucose ity of Kit 00:00: once daily [place] 00 before Medical breakfast; Branch Diagnosis code R73.03 Blood-Gluco 2021-0 Yes [id number] Check U nivers se Meter 4-20 glucose ity of Kit 00:00: once daily [place] 00 before Medical breakfast; Branch Diagnosis code R73.03 Blood-Gluco 2021-0 Yes [id number] Check U nivers se Meter 4-20 glucose ity of Kit 00:00: once daily [place] 00 before Medical breakfast; Branch Diagnosis code R73.03 Blood-Gluco 2021-0 Yes [id number] Check U nivers se Meter 4-20 glucose ity of Kit 00:00: once daily [place] 00 before Medical breakfast; Branch Diagnosis code R73.03 Blood-Gluco 2021-0 Yes [id number] Check U nivers se Meter 4-20 glucose ity of Kit 00:00: once daily [place] 00 before Medical breakfast; Branch Diagnosis code R73.03 Blood-Gluco 2021-0 Yes [id number] Check U nivers se Meter 4-20 glucose ity of Kit 00:00: once daily [place] 00 before Medical breakfast; Branch Diagnosis code R73.03 Blood-Gluco 2021-0 Yes [id number] Check U nivers se Meter 4-20 glucose ity of Kit 00:00: once daily [place] 00 before Medical breakfast; Branch Diagnosis code R73.03 Blood-Gluco 2021-0 Yes [id number] Check U nivers se Meter 4-20 glucose ity of Kit 00:00: once daily [place] 00 before Medical breakfast; Branch Diagnosis code R73.03 Lancets 2020-1 Yes [id number] Check Univ ers Misc 1-18 glucose ity of 00:00: once daily [place] 00 before Medical breakfast; Branch Diagnosis code R73.03 Lancets 2020-1 Yes [id number] Check Univ ers Misc 1-18 glucose ity of 00:00: once daily [place] 00 before Medical breakfast; Branch Diagnosis code R73.03 Lancets 2020-1 Yes [id number] Check Univ ers Misc 1-18 glucose ity of 00:00: once daily [place] 00 before Medical breakfast; Branch Diagnosis code R73.03 Lancets 2020-1 Yes [id number] Check Univ ers Misc 1-18 glucose ity of 00:00: once daily [place] 00 before Medical breakfast; Branch Diagnosis code R73.03 Lancets 2020-1 Yes [id number] Check Univ ers Misc 1-18 glucose ity of 00:00: once daily [place] 00 before Medical breakfast; Branch Diagnosis code R73.03 Lancets 2020-1 Yes [id number] Check Univ ers Misc 1-18 glucose ity of 00:00: once daily [place] 00 before Medical breakfast; Branch Diagnosis code R73.03 Lancets 2020-1 Yes [id number] Check Univ ers Misc 1-18 glucose ity of 00:00: once daily [place] 00 before Medical breakfast; Branch Diagnosis code R73.03 Lancets 2019- Yes [id number] Check Univ ers Misc 1-18 glucose ity of 00:00: once daily [place] 00 before Medical breakfast; Branch Diagnosis code R73.03 Lancets 2019- Yes [id number] Check Univ ers Misc 1-18 glucose ity of 00:00: once daily [place] 00 before Medical breakfast; Branch Diagnosis code R73.03 Lancets 2019- Yes [id number] Check Univ ers Misc 1-18 glucose ity of 00:00: once daily [place] 00 before Medical breakfast; Branch Diagnosis code R73.03 Lancets 2019- Yes [id number] Check Univ ers Misc 1-18 glucose ity of 00:00: once daily [place] 00 before Medical breakfast; Branch Diagnosis code R73.03 Lancets 2019-10 Yes [id number] Check Univ ers Misc 1-18 glucose ity of 00:00: once daily [place] 00 before Medical breakfast; Branch Diagnosis code R73.03 Lancets 2019- Yes [id number] Check Univ ers Misc 1-18 glucose ity of 00:00: once daily [place] 00 before Medical breakfast; Branch Diagnosis code R73.03 Lancets 2019-10 Yes [id number] Check Univ ers Misc 1-18 glucose ity of 00:00: once daily [place] 00 before Medical breakfast; Branch Diagnosis code R73.03 Lancets 2019- Yes [id number] Check Univ ers Misc 1-18 glucose ity of 00:00: once daily [place] 00 before Medical breakfast; Branch Diagnosis code R73.03 Lancets 2019- Yes [id number] Check Univ ers Misc 1-18 glucose ity of 00:00: once daily [place] 00 before Medical breakfast; Branch Diagnosis code R73.03 Lancets 2019- Yes [id number] Check Univ ers Misc 1-18 glucose ity of 00:00: once daily [place] 00 before Medical breakfast; Branch Diagnosis code R73.03 Lancets 2019- Yes [id number] Check Univ ers Misc 1-18 glucose ity of 00:00: once daily [place] 00 before Medical breakfast; Branch Diagnosis code R73.03 Lancets 2019- Yes [id number] Check Univ ers Misc 1-18 glucose ity of 00:00: once daily [place] 00 before Medical breakfast; Branch Diagnosis code R73.03 Lancets 2019- Yes [id number] Check Univ ers Misc 1-18 glucose ity of 00:00: once daily [place] 00 before Medical breakfast; Branch Diagnosis code R73.03 Lancets 2019- Yes [id number] Check Univ ers Misc 1-18 glucose ity of 00:00: once daily [place] 00 before Medical breakfast; Branch Diagnosis code R73.03 Lancets 2019- Yes [id number] Check Univ ers Misc 1-18 glucose ity of 00:00: once daily [place] 00 before Medical breakfast; Branch Diagnosis code R73.03 Lancets 2019-10 Yes [id number] Check Univ ers Misc 1-18 glucose ity of 00:00: once daily [place] 00 before Medical breakfast; Branch Diagnosis code R73.03 Lancets 2019-10 Yes [id number] Check Univ ers Misc 1-18 glucose ity of 00:00: once daily [place] 00 before Medical breakfast; Branch Diagnosis code R73.03 Lancets 2019-10 Yes [id number] Check Univ ers Misc 1-18 glucose ity of 00:00: once daily [place] 00 before Medical breakfast; Branch Diagnosis code R73.03 Lancets 2019-10 Yes [id number] Check Univ ers Misc 1-18 glucose ity of 00:00: once daily [place] 00 before Medical breakfast; Branch Diagnosis code R73.03 Lancets 2019-10 Yes [id number] Check Univ ers Misc 1-18 glucose ity of 00:00: once daily [place] 00 before Medical breakfast; Branch Diagnosis code R73.03 QUEtiapine 2019-0 Yes Univers 300 mg 1-10 ity of tablet 00:00: [place] 00 [facility] QUEtiapine 2019-0 Yes Univers 300 mg 1-10 ity of tablet 00:00: [place] 00 [facility] QUEtiapine 2019-0 Yes Univers 300 mg 1-10 ity of tablet 00:00: [place] 00 [facility] QUEtiapine 2019-0 Yes Univers 300 mg 1-10 ity of tablet 00:00: [place] 00 [facility] QUEtiapine 2019-0 Yes Univers 300 mg 1-10 ity of tablet 00:00: [place] 00 [facility] QUEtiapine 2019-0 Yes Univers 300 mg 1-10 ity of tablet 00:00: [place] 00 [facility] QUEtiapine 2019-0 Yes Univers 300 mg 1-10 ity of tablet 00:00: [address] QUEtiapine 2019-0 Yes Univers 300 mg 1-10 ity of tablet 00:00: [address] QUEtiapine 2019-0 Yes Univers 300 mg 1-10 ity of tablet 00:00: [address] QUEtiapine 2019-0 Yes Univers 300 mg 1-10 ity of tablet 00:00: [address] QUEtiapine 2019-0 Yes Univers 300 mg 1-10 ity of tablet 00:00: [address] QUEtiapine 2019-0 Yes Univers 300 mg 1-10 ity of tablet 00:00: [address] QUEtiapine 2019-0 Yes Univers 300 mg 1-10 ity of tablet 00:00: [address] QUEtiapine 2019-0 Yes Univers 300 mg 1-10 ity of tablet 00:00: [address] QUEtiapine 2019-0 Yes Univers 300 mg 1-10 ity of tablet 00:00: [address] QUEtiapine 2019-0 Yes Univers 300 mg 1-10 ity of tablet 00:00: [address] QUEtiapine 2019-0 Yes Univers 300 mg 1-10 ity of tablet 00:00: [address] QUEtiapine 2019-0 Yes Univers 300 mg 1-10 ity of tablet 00:00: [address] QUEtiapine 2019-0 Yes Univers 300 mg 1-10 ity of tablet 00:00: [address] QUEtiapine 2019-0 Yes Univers 300 mg 1-10 ity of tablet 00:00: [address] QUEtiapine 2019-0 Yes Univers 300 mg 1-10 ity of tablet 00:00: [address] QUEtiapine 2019-0 Yes Univers 300 mg 1-10 ity of tablet 00:00: [address] QUEtiapine 2019-0 Yes Univers 300 mg 1-10 ity of tablet 00:00: [address] QUEtiapine 2019-0 Yes [facility] 300 mg 1-10 ity of tablet 00:00: [address] QUEtiapine 2019-0 Yes Univers 300 mg 1-10 ity of tablet 00:00: [address] QUEtiapine 2019-0 Yes [facility] 300 mg 1-10 ity of tablet 00:00: [address] QUEtiapine 2019-0 Yes [facility] 300 mg 1-10 ity of tablet 00:00: [address] clonazePAM 2012- Yes 1mg Take [address] [facility] [address] [facility] (KLONOPIN) 6-12 by mouth 2 [place] es 1 MG tablet 04:13: (two) Medic al 45 times Center daily as needed. DULoxetine Yes 30mg QD Take [address] (CYMBALTA) 6-12 by mouth [facility] 30 MG 04:13: daily. Medical capsule 45 [place] TIZANIDINE Yes Take by [facility] [...] 30 MG 04:13: daily. Medical capsule 45 [place] TIZANIDINE Yes Take by [facility] 6-12 [facility]. [facility] (ZANAFLEX 04:13: Medical ORAL) 45 Center methocarbam 0 Yes 750mg Q.25D Take [address] ol 6-12 mg by [facility] (ROBAXIN) 04:13: mouth 4 Medic al 750 MG 45 (four) Center tablet times daily. carvedilol 2012-0 Yes 12.5mg Take 12.[address] [facility] (COREG) 6-12 mg by [facility] 12.5 MG 04:13: mouth 2 Medical tablet 45 (two) Center times daily with breakfast and dinner. clonazePAM 2012- Yes 1mg Take 1 mg [facility] [...] mouth. [facility] (ZANAFLEX 04:13: Medical ORAL) 45 [place] methocarbam Yes 750mg Q.25D Take 750 [facility] [...] 30 MG 04:13: daily. Medical capsule 45 [place] TIZANIDINE Yes Take by [facility] 6-12 mouth. [facility] (ZANAFLEX 04:13: Medical ORAL) 45 [place] methocarbam Yes 750mg Q.25D Take 750 [facility] [...] by oral route. carvedilol carvedilol No carvedilol [place] 12.5 mg 12.5 mg 12.5 mg [facility] tablet tablet tablet [facility] clobetasol clobetasol No clobetasol [place] 0.05 % 0.05 % 0.05 % [facility] topical topical topical Urolog y ointment ointment ointment APPLY THIN APPLY THIN APPLY THIN LAYER TO LAYER TO LAYER TO RASH ON RASH ON RASH ON TRUNK AND TRUNK AND TRUNK AND EXTREMITIES EXTREMITIES EXTREMITIE FOR 2 FOR 2 S FOR 2 WEEKS/MONTH WEEKS/MONTH WEEKS/ROBERT H clonazepam clonazepam No clonazepam [place] 0.125 mg 0.125 mg 0.125 mg Met ro disintegrat disintegrat disintegra Urology ing tablet ing tablet ting DISSOLVE 1 DISSOLVE 1 tablet TABLET ON TABLET ON DISSOLVE 1 THE TONGUE THE TONGUE TABLET ON TWICE DAILY TWICE DAILY THE TONGUE NEEDED NEEDED TWICE FOR HIGH FOR HIGH DAILY ANXIETY ANXIETY NEEDED FOR HIGH ANXIETY hydrocortis hydrocortis No hydrocorti [place] one 10 mg one 10 mg sone 10 mg [facility] tablet TAKE tablet TAKE tablet U[facility] 2 TABLETS 2 TABLETS TAKE 2 BY MOUTH BY MOUTH TABLETS BY EVERY EVERY MOUTH MORNING AND MORNING AND EVERY 1 TABLET 1 TABLET MORNING EVERY NIGHT EVERY NIGHT AND 1 TABLET EVERY NIGHT ibuprofen ibuprofen No ibuprofen [place] 600 mg 600 mg 600 mg [facility] tablet tablet tablet Urology ibuprofen ibuprofen No ibuprofen [place] 800 mg 800 mg 800 mg [facility] tablet tablet tablet Urology Lantus Lantus No Lantus [facility] Met ro U-100 U-100 U-100 Urology Insulin 100 Insulin 100 Insulin unit/mL (3 unit/mL (3 100 mL) mL) unit/mL (3 subcutaneou subcutaneou mL) s pen s pen subcutaneo INJECT 35 INJECT 35 us pen UNITS UNITS INJECT 35 SUBCUTANEOU SUBCUTANEOU UNITS S EVERY DAY S EVERY DAY SUBCUTANEO US EVERY DAY levothyroxi levothyroxi No levothyrox [place] ne 137 mcg ne 137 mcg ine 137 [facility] tablet tablet mcg tablet Urolo gy metformin metformin No metformin [place] 500 mg 500 mg 500 mg [facility] tablet tablet tablet Urology mupirocin 2 mupirocin 2 No mupirocin [place] % topical % topical 2 % [facility] [...] s s us quetiapine quetiapine No quetiapine [place] 100 mg 100 mg 100 mg [facility] tablet TAKE tablet TAKE tablet Urology 1 TABLET BY 1 TABLET BY TAKE 1 MOUTH EVERY MOUTH EVERY TABLET BY NIGHT AT NIGHT AT MOUTH BEDTIME BEDTIME EVERY NIGHT AT BEDTIME tramadol 50 tramadol 50 No tramadol [place] mg tablet mg tablet 50 mg Metr o TAKE 1 TAKE 1 tablet Urology TABLET BY TABLET BY TAKE 1 MOUTH TWICE MOUTH TWICE TABLET BY DAILY DAILY MOUTH TWICE DAILY trazodone trazodone No trazodone [place] 50 mg 50 mg 50 mg [facility] tablet tablet tablet Urology Vital Signs Vital Name Observation Time Observation Value Comments Source Systolic blood 2023-05-11 19:31:00 124 mm[Hg] Univer sity [facility] Diastolic blood 2023-05-11 19:31:00 84 mm[Hg] [facility] 2023-05-11 19:31:00 66 /min [facility] Body temperature 2023-05-11 19:31:00 36.78 [facility] Respiratory rate 2023-05-11 19:31:00 [facility] Body height 2023-05-11 19:31:00 162.6 cm [facility] Body weight 2023-05-11 19:31:00 97.024 kg [facility] BMI 2023-05-11 19:31:00 36.72 kg/m2 [facility] Oxygen saturation in 2023-05-11 19:31:00 99 /min [facility] Arterial blood by [facility] Pulse oximetry Agency Systolic blood 2023-05-04 19:34:00 128 mm[Hg] Univer sity [facility] Diastolic blood 2023-05-04 19:34:00 73 mm[Hg] [facility] 2023-05-04 19:34:00 78 /min [facility] Body temperature 2023-05-04 19:34:00 36.83 Lynette [facility] ersity of [facility] Respiratory rate 2023-05-04 19:34:00 16 /min Univ ersity of [facility] Body height 2023-05-04 19:34:00 162.6 cm Universi ty of [facility] Body weight 2023-05-04 19:34:00 96.208 kg Universi ty of [facility] BMI 2023-05-04 19:34:00 36.41 kg/m2 Universi ty [facility] Oxygen saturation in 2023-05-04 19:34:00 96 /min University Arterial blood by [facility] Pulse oximetry Branch Systolic blood 2023-03-19 19:23:00 129 mm[Hg] Reema Seybold - pressure External Diastolic blood 2023-03-19 19:23:00 82 mm[Hg] Kelse y Seybold - pressure External Heart rate 2023-03-19 19:23:00 78 /min Reema Tomi eybold - External Body temperature 2023-03-19 19:23:00 36.67 [place]ette Kaykay ey Seybold - External Respiratory rate 2023-03-19 19:23:00 19 /min Kaykay ey Seybold - External Body height 2023-03-19 19:23:00 162.6 cm Reema Krishna eybold - External Body weight 2023-03-19 19:23:00 97.977 kg Reema S eybold - External BMI 2023-03-19 19:23:00 37.08 kg/m2 Reema S eybold - External Oxygen saturation in 2023-03-19 19:23:00 99 /min Reema [place] - Arterial blood by External Pulse oximetry Systolic blood 2022-12-17 19:27:00 130 mm[Hg] Reema Seybold - pressure External Diastolic blood 2022-12-17 19:27:00 82 mm[Hg] Kelse y Seybold - pressure External Heart rate 2022-12-17 19:27:00 80 /min Reema S eybold - External Body temperature 2022-12-17 19:27:00 36.67 [place]ette Kaykay ey Seybold - External Respiratory rate 2022-12-17 19:27:00 14 /min Kaykay ey Seybold - External Body height 2022-12-17 19:27:00 162.6 cm Reema S eybold - External Body weight 2022-12-17 19:27:00 98.431 kg Reema S eybold - External BMI 2022-12-17 19:27:00 37.25 kg/m2 Reema S eybold - External Oxygen saturation in 2022-12-17 19:27:00 99 /min Reema Seybold - Arterial blood by External Pulse oximetry HEIGHT 2022-11-26 05:00:00 162.6 cm WEIGHT 2022-11-26 05:00:00 97.523 kg HEIGHT 2022-11-26 05:00:00 162.6 cm WEIGHT 2022-11-26 05:00:00 97.523 kg HEIGHT 2022-11-26 05:00:00 162.6 cm WEIGHT 2022-11-26 05:00:00 97.523 kg Systolic blood 2022-11-19 19:57:00 128 mm[Hg] Reema Seybold - pressure External Diastolic blood 2022-11-19 19:57:00 76 mm[Hg] Galina y Seybold - pressure External Heart rate 2022-11-19 19:57:00 86 /min Reema S eybold - External Body temperature 2022-11-19 19:57:00 36.17 [place] Kaykay ey Seybold - External Respiratory rate 2022-11-19 19:57:00 20 /min Kaykay ey Seybold - External Body height 2022-11-19 19:57:00 162.6 cm Reema S eybold - External Body weight 2022-11-19 19:57:00 99.973 kg Reema S eybold - External BMI 2022-11-19 19:57:00 37.83 kg/m2 Reema S eybold - External Oxygen saturation in 2022-11-19 19:57:00 98 /min Reema ybold - Arterial blood by External Pulse oximetry BP Systolic 2022-11-14 00:00:00 132 mm[Hg] [facility] 2022-11-14 00:00:00 210 [lb_av] [facility] BP Diastolic 2022-11-14 00:00:00 82 mm[Hg] [facility] Height 2022-11-14 00:00:00 64 [in_i] [facility] BMI (Body Mass 2022-11-14 00:00:00 36 kg/m2 [place] [facility] Index) Urology Heart rate 2022-11-04 20:22:00 97 /min Reema Tomi parveenbold - External Respiratory rate 2022-11-04 20:22:00 14 /min Kaykay saini Seybold - External Body height 2022-11-04 20:22:00 162.6 cm Reema Krishna eybold - External Body weight 2022-11-04 20:22:00 99.791 kg Reema sainibold - External BMI 2022-11-04 20:22:00 37.76 kg/m2 Reema sainiboeaston - External Oxygen saturation in 2022-11-04 20:22:00 95 /min Reema [place] - Arterial blood by External Pulse oximetry Systolic blood 2022-10-15 21:26:00 133 mm[Hg] [facility] Diastolic blood 2022-10-15 21:26:00 73 mm[Hg] [facility] Heart rate 2022-10-15 21:26:00 97 /min [facility] Body temperature 2022-10-15 21:26:00 37.28 Lynette [facility] Respiratory rate 2022-10-15 21:26:00 17 /min [facility] Body weight 2022-10-15 21:26:00 100.472 kg [facility] BMI 2022-10-15 21:26:00 38.02 kg/m2 [facility] Oxygen saturation in 2022-10-15 21:26:00 96 /min University Arterial blood by [facility] Pulse oximetry Branch Systolic blood 2022-10-09 19:34:00 126 mm[Hg] [facility] Diastolic blood 2022-10-09 19:34:00 84 mm[Hg] [facility] Heart rate 2022-10-09 19:34:00 95 /min [facility]i [facility] Body temperature 2022-10-09 19:34:00 37 Lynette [facility] ersity of [facility] Respiratory rate 2022-10-09 19:34:00 16 /min Univ ersity [facility] Body height 2022-10-09 19:34:00 162.6 cm Universi ty [facility] Body weight 2022-10-09 19:34:00 99.139 kg Universi ty [facility] BMI 2022-10-09 19:34:00 37.52 kg/m2 Universi ty [facility] Oxygen saturation in 2022-10-09 19:34:00 97 /min University Arterial blood by [facility] Pulse oximetry Branch Systolic blood 2022-09-29 20:01:00 142 mm[Hg] Reema Seybold - pressure External Diastolic blood 2022-09-29 20:01:00 75 mm[Hg] Zakse y Seybold - pressure External Heart rate 2022-09-29 20:01:00 71 /min Reema S eybold - External Body temperature 2022-09-29 20:01:00 36.56 Lynette Kaykay ey Seybold - External Respiratory rate 2022-09-29 20:01:00 14 /min Kaykay ey Seybold - External Body height 2022-09-29 20:01:00 162.6 cm Reema Krishna eybold - External Body weight 2022-09-29 20:01:00 102.967 kg Reema S eybold - External BMI 2022-09-29 20:01:00 38.96 kg/m2 Reema S eybold - External Oxygen saturation in 2022-09-29 20:01:00 99 /min Reema abhijitold - Arterial blood by External Pulse oximetry [...] Body height 2022-09-22 20:30:00 162.6 cm Reema Krishna eybold - External Body weight 2022-09-22 20:30:00 101.152 kg Reema Krishna eybold - External BMI 2022-09-22 20:30:00 38.28 kg/m2 Reema S eybold - External Systolic blood 2022-08-29 20:07:00 96 mm[Hg] Reema Seybold - pressure External Diastolic blood 2022-08-29 20:07:00 54 mm[Hg] Zakse y Seybold - pressure External Heart rate 2022-08-29 20:07:00 86 /min Reema Krishna eybold - External Body temperature 2022-08-29 20:07:00 36.39 Lynette Kaykay saini Seybold - External Respiratory rate 2022-08-29 20:07:00 14 /min Kaykay saini Seybold - External Body height 2022-08-29 20:07:00 162.6 cm Reema Krishna eybold - External Body weight 2022-08-29 20:07:00 110.678 kg Reema Krishna eybold - External BMI 2022-08-29 20:07:00 41.88 kg/m2 Reema Krishna eybold - External Systolic blood 2022-08-26 17:01:00 118 mm[Hg] [facility] Diastolic blood 2022-08-26 17:01:00 84 mm[Hg] [facility] Heart rate 2022-08-26 17:01:00 74 /min [facility] Body weight 2022-08-26 17:01:00 95.709 kg [facility] BMI 2022-08-26 17:01:00 36.22 kg/m2 [facility] Systolic blood 2022-07-02 14:44:00 125 [...] 2022-01-28 18:35:00 38.28 kg/m2 Reema S eybold Systolic blood 2022-12-23 00:47:32 149 mm[Hg] Method ist [facility] pressure Diastolic blood 2022-12-23 00:47:32 85 mm[Hg] [facility] pressure Heart rate 2022-12-23 00:47:32 70 /min Methodis t [facility] Body temperature 2022-12-23 00:47:32 36.22 Lynette [facility] 2022-12-23 00:47:32 17 /min [facility] Oxygen saturation in 2022-12-23 00:47:32 98 /min [facility] Arterial blood by Pulse oximetry Body weight 2022-12-21 04:29:08 96.707 kg [facility] BMI 2022-12-21 04:29:08 37.77 kg/m2 [facility] Body height 2022-12-20 21:54:00 160 cm [facility] Heart rate 2022-11-27 16:22:50 93 /min [facility] Oxygen saturation in 2022-11-27 16:22:50 94 /min [facility] Arterial blood by Medical Ce nter Pulse oximetry Systolic blood 2022-11-27 16:20:50 141 mm[Hg] [facility] Diastolic blood 2022-11-27 16:20:50 82 mm[Hg] [facility] Respiratory rate 2022-11-27 16:20:19 17 /min [facility] Body temperature 2022-11-27 14:02:01 37.06 Lynette [facility] Body height 2022-11-26 05:00:00 162.6 cm [facility] Body weight 2022-11-26 05:00:00 97.523 kg [facility] BMI 2022-11-26 05:00:00 36.90 kg/m2 [facility] Systolic blood 2022-10-28 00:44:00 144 mm[Hg] Method [facility] pressure Diastolic blood 2022-10-28 00:44:00 61 mm[Hg] [facility] pressure Heart rate 2022-10-28 00:44:00 86 /min [facility] Respiratory rate 2022-10-28 00:44:00 18 /min [facility] Oxygen saturation in 2022-10-28 00:44:00 98 /min [facility] Arterial blood by Pulse oximetry Body temperature 2022-10-27 21:25:17 36.94 Lynette [facility] Body height 2022-10-27 21:22:00 160 cm [facility] Body weight 2022-10-27 21:22:00 90.719 kg [facility] BMI 2022-10-27 21:22:00 35.43 kg/m2 [facility] Procedures Procedure Date / Time Performing Clinician Source Performed ASSIGNMENT OF BENEFITS 2023-05-04 19:24:29 Doctor Unassigned, No [facility] POC GLUCOSE 2022-12-23 01:19:00 [facility] POC GLUCOSE 2022-12-22 19:10:00 [facility] POC GLUCOSE 2022-12-22 14:11:00 [facility] THYROID PEROXIDASE 2022-12-22 10:33:00 [facility] ANTIBODY C-PEPTIDE 2022-12-22 10:33:00 [facility] POC GLUCOSE 2022-12-22 01:55:00 Tatum [facility] POC GLUCOSE 2022-12-21 23:14:00 [facility] POC GLUCOSE 2022-12-21 14:06:00 [facility] TROPONIN T 2022-12-21 04:30:00 Paz Rivera [facility] COVID-19 QUALITATIVE 2022-12-21 02:24:00 [facility] RT-PCR [place] TROPONIN, I-STAT 2022-12-21 02:14:[address] [facility] CT ABDOMEN PELVIS W 2022-12-20 23:55:40 [facility] CONTRAST [place] CREATINE KINASE, TOTAL 2022-12-20 23:30:00 [facility] (CPK) [place] CBC WITH PLATELET AND 2022-12-20 22:25:00 [facility] DIFFERENTIAL [place] COMPREHENSIVE METABOLIC 2022-12-20 22:25:00 [facility] PAN[facility] [place] CREATINE KINASE, TOTAL 2022-12-20 22:25:00 [facility] ([facility]) [place] TROPONIN, I-STAT 2022-12-20 22:25:00 [facility] [place] LACTIC ACID, I-STAT 2022-12-20 22:25:00 [facility] [place] URINALYSIS 2022-12-20 22:25:00 [facility] ospital [place] B NATRIURETIC PEP, 2022-12-20 22:25:00 [facility] I-STAT [place] ESTIMATED GFR 2022-12-20 22:25:00 [facility] 2022-12-20 22:18:19 [facility] INTERPRETATION [place] ECG 12-LEAD 2022-12-20 21:54:21 [facility] ospital [place] POCT-GLUCOSE METER 2022-11-27 16:25:00 [facility] POCT-GLUCOSE METER 2022-11-27 12:54:00 [facility] POCT-GLUCOSE METER 2022-11-27 06:08:00 [facility] POCT-GLUCOSE METER 2022-11-26 20:26:00 [facility] COVID ANTIGEN 2022-11-26 17:30:00 [facility] POCT-GLUCOSE METER 2022-11-26 15:27:00 [facility] 2D ECHO W/ DOPPLER 2022-11-26 14:52:18 [facility] (CW/PW/COLOR) [place] BRAIN WITHOUT IV 2022-11-26 14:40:00 [facility] ECG 12-LEAD 2022-11-26 12:34:50 [facility] ECG 12-LEAD 2022-11-26 12:34:50 Unknown, Hl7 Doctor [facility] TSH/FREE T4 IF INDICATED 2022-11-26 11:54:00 Kayla [facility] HEMOGLOBIN A1C 2022-11-26 11:54:00 [facility]SE [facility] 2022-11-26 11:44[facility] PORTABLE 2022-11-26 11:30:[address] [facility] / BEDSIDE Center EKG-SCANNED 2022-11-26 00:00:00 Provider, [facility] Scanning [place] TROPONIN, I-STAT 2022-10-28 00:17:00 Khai Rosdao danial Fields LACTIC ACID, I-STAT 2022-10-28 00:17[facility]EL[facility] W 2022-10-27 23:32:00 [facility] CONTRAST Donnie COMPREHENSIVE METABOLIC 2022-10-27 22:32:00 [facility] Donnie ESTIMATED GFR 2022-10-27 22:32:00 Khai Rosado spijohnny Fields XR CHEST 2 VW 2022-10-27 22:03:00 Khai Rosado praveena Fields XR SHOULDER 2+ VW RIGHT 2022-10-27 22:02:00 [facility] URINE CULTURE 2022-10-27 21:55:00 Khai Rosado CBC WITH PLATELET AND 2022-10-27 21:54:00 Alonzo [facility] DIFFERENTIAL Donnie COMPREHENSIVE METABOLIC 2022-10-27 21:54:00 [facility] PAN[facility] Donnie TROPONIN, I-STAT 2022-10-27 21:54:00 Khai Rosado ospijohnny Fields URINALYSIS 2022-10-27 21:54:00 Khai Rosado HCG QUALITATIVE, URINE 2022-10-27 21:54:00 Khai Rosado [facility] SCREEN Donnie B NATRIURETIC PEP, 2022-10-27 21:54:00 [facility] I-STAT Donnie ESTIMATED GFR 2022-10-27 21:54:[address] [facility] spijohnny Martinolas VENOUS BLOOD GAS 2022-10-27 21:54:00 [facility] Donnie LACTIC ACID, I-STAT 2022-10-27 21:54:00 [facility] MANUAL DIFFERENTIAL 2022-10-27 21:54:00 [facility] ECG ED PRELIMINARY 2022-10-27 21:39:37 [facility] INTERPRETATION [facility] ECG 12-LEAD 2022-10-27 21:23:19 [facility] POCT SARS-COV-2 ANTIGEN 2022-10-09 19:51:00 Aurora Avendaño [facility] (BINAX NOW) [facility] POCT MOLECULAR FLU 2022-10-09 19:44:00 Unknown, Attending [facility] REAGENT STRIP/BLOOD 2022-09-22 00:00:00 Outside, Reported Reema Snyderybold - GLUCOSE External POCT URINALYSIS 2022-08-26 00:00:00 Summer Davis [facility] REAGENT STRIP/BLOOD 2022-07-02 14:51:00 Outside, Reported Reema Seybold - GLUCOSE External Colonoscopy 2015-10-12 00:00:00 [facility] URO.ALPHA2007-10-12 00:00:00 [facility] Ureteroscopy-Laser Urology Lithotripsy URO.2004-10-12 00:00:00 [facility] Ureteroscopy-Laser Urology Lithotripsy URO.2002-10-12 00:00:00 [facility] Ureteroscopy-Laser Urology Lithotripsy URO.1992-10-12 00:00:00 [facility] Ureteroscopy-Laser Urology Lithotripsy Removal of Calculus of Jaspreet M etro Renal Pelvis through Urology Percutaneous Nephrostomy Plan of Care Planned Activity Planned Date Details Comments Source Future Scheduled 2023-11-[address] [facility] Test 00:00:00 Counseling and Screening [facility] (12+) [code = Tobacco Cessation Counseling and Screening (12+)] Future Scheduled 2023-07-29 Screening for malignant [facility] Test 23:38:46 neoplasm of colon Hospital (procedure) [code = 959249876] Future Scheduled 2023-07-29 Screening for malignant [facility] Test 23:38:46 neoplasm of colon Hospital (procedure) [code = 831053672] Future Scheduled 2023-07-29 Screening for malignant [facility] Test 23:38:46 neoplasm of colon Hospital (procedure) [code = 807731361] Future Scheduled 2023-07-29 COVID-19 VACCINE (#1) [facility] 23:38:46 [code = COVID-19 VACCINE Hos pital (#1)] Future Scheduled 2023-07-29 Hepatitis C screening [facility] Test 23:38:46 (procedure) [code = Hospital 460660800] Future Scheduled 2023-07-29 Screening for malignant [facility] Test 23:38:46 neoplasm of cervix Hospital (procedure) [code = 555884024] Future Scheduled 2023-07-29 Screening for malignant [facility] Test 23:38:46 neoplasm of colon Hospital (procedure) [code = 854399553] Future Scheduled 2023-07-29 Screening for malignant [facility] Test 23:38:46 neoplasm of colon Hospital (procedure) [code = 134960348] Future Scheduled 2023-07-29 SHINGLES VACCINES (1 of [facility] Test 23:38:46 2) [code = SHINGLES Hospital VACCINES (1 of 2)] Future Scheduled 2023-07-29 BREAST CANCER SCREENING [facility] 23:38:46 [code = BREAST CANCER Hospit al SCREENING] Future Scheduled 2023-07-29 INFLUENZA VACCINE (#1) [facility] Test 23:38:46 [code = INFLUENZA Hospital VACCINE (#1)] Future Scheduled 2023-07-29 RSV VACCINES > 60 YR (1 [facility] Test 23:38:46 - 1-dose 60+ series) Hospita l [code = RSV VACCINES > 60 YR (1 - 1-dose 60+ series)] Future Scheduled 2023-06-14 Screening for malignant [facility] Test 05:09:14 neoplasm of colon Hospital (procedure) [code = 815782603] Future Scheduled 2023-06-14 Screening for malignant [facility] Test 05:09:14 neoplasm of colon Hospital (procedure) [code = 902422805] Future Scheduled 2023-06-14 Screening for malignant [facility] Test 05:09:14 neoplasm of colon Hospital (procedure) [code = 713859877] Future Scheduled 2023-06-14 COVID-19 VACCINE (#1) [facility] 05:09:14 [code = COVID-19 VACCINE Hos pital (#1)] Future Scheduled 2023-06-14 Hepatitis C screening [facility] Test 05:09:14 (procedure) [code = Hospital 328855570] Future Scheduled 2023-06-14 Screening for malignant [facility] Test 05:09:14 neoplasm of cervix Hospital (procedure) [code = 067750768] Future Scheduled 2023-06-14 Screening for malignant [facility] Test 05:09:14 neoplasm of colon Hospital (procedure) [code = 570344543] Future Scheduled 2023-06-14 Screening for malignant [facility] Test 05:09:14 neoplasm of colon Hospital (procedure) [code = 491264733] Future Scheduled 2023-06-14 SHINGLES VACCINES (1 of [facility] Test 05:09:14 2) [code = SHINGLES Hospital VACCINES (1 of 2)] Future Scheduled 2023-06-14 BREAST CANCER SCREENING [facility] 05:09:14 [code = BREAST CANCER Hospit al SCREENING] Future Scheduled 2023-06-14 INFLUENZA VACCINE (#1) [facility] Test 05:09:14 [code = INFLUENZA Hospital VACCINE (#1)] Future Scheduled 2023-06-12 Influenza Vaccine (#1[facility] [code = Influenza Medical Ce nter Vaccine (#1)] Future Scheduled 2023-02-[address] [facility] 00[facility]00 [facility] (procedure) [facility] [code = 38746794] Future Scheduled 2023-01-11 MEDICARE ANNUAL WELLNESS [facility] Test 00:00:00 (YEAR 2 or FIRST YEAR if [facility] no IPPE) [code = MEDICARE ANNUAL WELLNESS (YEAR 2 or FIRST YEAR if no IPPE)] Future Scheduled 2022-11-25 COVID-19 VACCINE (#1) [facility] 17:40:42 [code = COVID-19 VACCINE Hos pital (#1)] Future Scheduled 2022-11-25 Hepatitis C screening [facility] Test 17:40:42 (procedure) [code = Hospital 408445884] Future Scheduled 2022-11-25 Screening for malignant [facility] Test 17:40:42 neoplasm of cervix Hospital (procedure) [code = 986388511] Future Scheduled 2022-11-25 BREAST CANCER SCREENING [facility] 17:40:42 [code = BREAST CANCER Hospit al SCREENING] Future Scheduled 2022-11-25 COLONOSCOPY SCREENING [facility] 17:40:42 [code = COLONOSCOPY Hospital SCREENING] Future Scheduled 2022-11-25 SHINGLES VACCINES (1 of [facility] Test 17:40:42 2) [code = SHINGLES Hospital VACCINES (1 of 2)] Future Scheduled 2022-11-25 INFLUENZA VACCINE [code [facility] Test 17:40:42 = INFLUENZA VACCINE] Hospita l Diagnostic Test 2022-11-14 urinalysis, dipstick [place] Pending 00:00:00 [code = urinalysis, Urology dipstick] Diagnostic Test 2022-11-14 urinalysis, microscopic [place] [facility] Pending 00:00:00 [code = urinalysis, Urology microscopic] Future Scheduled 2022-10-[address] [facility] Test 00:00:00 (12+) [code = DEPRESSION Med [facility] Center SCREENING (12+)] Future Scheduled 2020 SHINGLES VACCINES ([address] [facility] Test 00:00:00 2) [code = SHINGLES Medical Center VACCINES (1 of 2)] Future Scheduled 2015 Lipid panel (procedure) [facility] Test 00:00:00 [code = 64607965] Medical Ce nter Future Scheduled 1991 Screening for malignant [facility] Test 00:00:00 neoplasm of cervix Medical C enter (procedure) [code = 576491708] Future Scheduled 1989 DTAP/TDAP/TD VACCINES ([address] [facility] Test 00:00:00 - Tdap) [code = Medical Cent er DTAP/TDAP/TD VACCINES (1 - Tdap)] Future Scheduled 1988 HEPATITIS C [facility]CRE[facility]ING [facility] 00:00:00 [code = HEPATITIS C Medical Center SCREENING] Future Scheduled [address] [facility] 00:00:00 virus screening Medical Cent er (procedure) [code = 724495807] Future Scheduled 1980 DIABETIC EYE EXAM [code [facility] Test 00:00:00 = DIABETIC EYE EXAM] Medical Center Future Scheduled [address] [facility] 00:[facility]00 examination Medical Center (regime/therapy) [code = 770062175] Future Scheduled 1980 Urine screening for [facility] Test 00:00:00 protein (procedure) Medical Center [code = 820168771] Future Scheduled 1976 Pneumococcal Vaccine: [facility] 00:00:00 0-64 Years (1 - PCV) Medical Center [code = Pneumococcal Vaccine: 0-64 Years (1 - PCV)] Future Scheduled 1971-02-06 COVID-19 VACCINE (#1) [facility] 00:00[facility]00 [code = COVID-19 VACCINE [facility] (#1)] Future Scheduled 1970 Screening for malignant [facility] Test 00:00:00 neoplasm of breast Medical C enter (procedure) [code = 169974022] Future Scheduled 1970 CT Colonography (combo) [facility] Test 00:00:00 [code = CT Colonography [facility] (combo)] Future Scheduled 1970 Screening for malignant [facility] Test 00:00:00 neoplasm of colon Medical Ce nter (procedure) [code = 109327352] Future Scheduled 1970 Screening for malignant [facility] Test 00:00:00 neoplasm of colon Medical Ce nter (procedure) [code = 990103652] Future Scheduled 1970 Screening for malignant [facility] Test 00:00:00 neoplasm of colon Medical Ce nter (procedure) [code = 538720960] Future Scheduled 1970 Screening for malignant [facility] Test 00:00:00 neoplasm of colon Medical Ce nter (procedure) [code = 214983641] Future Scheduled 1970 Sigmoidoscopy [code [facility] Sigmoidoscopy] Medical Cente r Encounters Start End Encounter Admission Attending Care Care Encounter Source Date/Time Date/Time Type Type Clinicians Facility Department ID 2022-12-17 Outpatient [facility] [id number] [place] 15:41:31 [id number] [facility] 2022-11-25 Outpatient ER [facility] Med [id number] [facility]I 23:08:49 [facility] 2022-07-01 Outpatient [facility] [id number] [place] 06:14:10 [id number] [facility] 2022-01-10 Outpatient [facility] [id number] [place] 13:15:51 [id number] [facility] 2022-01-08 Outpatient [facility] [id number] [place] 12:03:37 [id number] [facility] 2021-08-11 Emergency [facility] [id number] Univers 14:12:35 [facility] 2023-06-29 2023-06-29 Outpatient REEMA AZEVEDO [id number] Reema 00:00:00 00:00:00 JOHNNIE Seybol d 2023-06-25 2023-06-25 Outpatient REEMA AZEVEDO [id number] Reema 00:00:00 00:00:00 JOHNNIE Seybol d 2023-06-22 2023-06-22 Outpatient REEMA AZEVEDO [id number] Reema 00:00:00 00:00:00 JOHNNIE Seybol d 2023-06-22 2023-06-22 Outpatient REEMA AZEVEDO [id number] Reema 00:00:00 00:00:00 JOHNNIE Seybol d 2023-05-31 2023-05-31 Rodrigo Avendaño [facility] [id number] Univers 00:00:00 00:00:00 [facility] [id number] it y of [place] 4.2.7.2.686 Anton as TREE?BLEA [id number] [address] MEDICAL OFFICE BUILDING 2023-05-25 2023-05-25 Outpatient REEMA BENAVIDEZ [id number] Reema 00:00:00 00:00:00 Seybol d 2023-05-13 2023-05-13 Outpatient REEMA AZEVEDO [id number] Reema 16:45:00 16:45:00 JOHNNIE Cassidyol magalie 2023-05-11 2023-05-11 Outpatient R JAROCHO [facility] [id number] Univers 14:40:00 14:54:52 AURORA taylor [facility] 2023-05-11 2023-05-11 Urgent Jarocho [facility] [id number] Univers 14:40:00 14:54:52 Care Unknown, Attending [facility] [id number] ity of [place] 4.2.7.2.686 Anton as TREE?BLEA [id number] [address] 2023-05-11 2023-05-11 Outpatient REEMA AZEVEDO [id number] Reema 00:00:00 00:00:00 JOHNNIE Cassidyol magalie 2023-05-04 2023-05-04 Urgent Jarocho [facility] [id number] Univers 14:20:00 14:40:00 Care Unknown, Attending [facility] [id number] ity of [place] 4.2.7.2.686 Anton as TREE?BLEA [id number] [address] 2023-05-04 2023-05-04 Outpatient Jose [facility] [id number] Univers 14:20:00 14:20:00 [facility] 2023-05-04 2023-05-04 Outpatient REEMA MARQUEZ [id number] Reema 13:30:00 13:30:00 NDIANABASI Geovanny burton 2023-05-04 2023-05-04 Orders Doctor MCKEON [id number] Univers 00:00:00 00:00:00 Only Unassigned, MILENA [id number] ity of [facility] 4.2.7.2.686 Anton as [id number] [address] 2023-04-17 2023-04-17 Outpatient REEMA AZEVEDO [id number] Reema 15:15:00 15:15:00 JOHNNIE Synderybol magalie 2023-04-16 2023-04-16 Outpatient REEMA AZEVEDO [id number] Reema 00:00:00 00:00:00 JOHNNIE Seybol d 2023-04-15 2023-04-15 Telephone Team, Marly MCKEON [id number] Univers 00:00:00 00:00:00 [facility] [id number] [facility] 4.2.7.2.686 [place] [id number] [facility] [address] 2023-03-25 2023-03-25 Outpatient REEMA AZEVEDO [id number] Reema 00:00:00 00:00:00 JOHNNIE Seybol d 2023-03-24 2023-03-24 Outpatient LAB90 REEMA BENAVIDEZ [id number] Reema 10:35:00 10:35:00 Seybol d 2023-03-20 2023-03-20 Outpatient REEMA AZEVEDO [id number] Reema 00:00:00 00:00:00 JOHNNIE Seybol d 2023-03-19 2023-03-19 Outpatient REEMA AZEVEDO [id number] Reema 14:45:00 14:45:00 JOHNNIE Seybol d 2023-02-03 2023-02-03 Outpatient MIREYA BENAVIDEZ [id number] Reema 00:00:00 00:00:00 MD KYLAH Seybol d 2023-02-03 2023-02-03 Outpatient REEMA ROD [id number] Reema 00:00:00 00:00:00 FESTUS Seybol d 2023-02-01 2023-02-01 Outpatient REEMA JAVIER [id number] Reema 00:00:00 00:00:00 MARGIE Seybo ld 2023-01-26 2023-01-26 Outpatient REEMA BENAVIDEZ [id number] Reema 00:00:00 00:00:00 Seybol d 2023-01-24 2023-01-24 Outpatient REEMA FOSTER [id number] Reema 00:00:00 00:00:00 FABIAN Seybol d 2023-01-23 2023-01-23 Outpatient REEMA AZEVEDO [id number] Reema 00:00:00 00:00:00 JOHNNIE Seybol d 2023-01-23 2023-01-23 Outpatient PREZAS, REEMA BENAVIDEZ [id number] Reema 00:00:00 00:00:00 JOHNNIE Seybol d 2023-01-23 2023-01-23 Outpatient PREZAS, REEMA BENAVIDEZ [id number] Reema 00:00:00 00:00:00 JOHNNIE Seybol d 2023-01-16 2023-01-16 Outpatient PREZAS, REEMA BENAVIDEZ [id number] Reema 15:15:00 15:15:00 JOHNNIE Seybol d 2023-01-14 2023-01-14 Outpatient PREZAS, REEMA BENAVIDEZ [id number] Reema 13:30:00 13:30:00 JOHNNIE Seybol d 2023-01-14 2023-01-14 Outpatient PREZAS, REEMA BENAVIDEZ [id number] Reema 00:00:00 00:00:00 JOHNNIE Seybol d 2023-01-14 2023-01-14 Outpatient PREZAS, REEMA BENAVIDEZ [id number] Reema 00:00:00 00:00:00 JOHNNIE Seybol d 2023-01-12 2023-01-12 Outpatient ARUN MERCER [id number] Reema 14:15:00 14:15:00 Seybol d 2023-01-05 2023-01-05 Outpatient REEMA BENAVIDEZ [id number] Reema 00:00:00 00:00:00 Seybol d 2023-01-02 2023-01-02 Outpatient PREZAS, REEMA BENAVIDEZ [id number] Reema 00:00:00 00:00:00 JOHNNIE Seybol d 2022-12-29 2022-12-29 Outpatient PREZAS, REEMA BENAVIDEZ [id number] Reema 14:00:00 14:00:00 JOHNNIE Seybol d 2022-12-29 2022-12-29 Outpatient CA[facility]ANEDA [facility] [id number] [place] 13:00:00 13:00:00 Joslyn TURCIOS 2022-12-24 2022-12-24 Outpatient PREZAS, REEMA REEMA [id number] Reema 00:00:00 00:00:00 JOHNNIE Seybol d 2022-12-23 2022-12-23 Outpatient REEMA BENAVIDEZ [id number] Reema 00:00:00 00:00:00 Seybol d 2022-12-23 2022-12-23 Outpatient ARUN MERCER REEMA [id number] Reema 00:00:00 00:00:00 Seybol d 2022-12-23 2022-12-23 Outpatient REEMA SCHWARTZ REEMA [id number] Reema 00:00:00 00:00:00 OLUWABUSOLA Se ybold 2022-12-20 2022-12-22 Emergency Sriram Allen Tomenriquea 1.2.840. 1 [id number] Methodi 15:50:00 21:22:00 Linda Abernathy [address]476.1.[address] [facility], [facility] 3.430.2.7 [facility] Natvarlal .3.332772 l .8 2022-12-20 2022-12-22 Emergency Sriram Allen 1.2.840. 1 [id number] Methodi 15:50:00 21:22:00 MichelaLinda molina [address] [facility], [place] 3.430.2.7 [facility] Nat[facility]al .3.591457 l .8 2022-12-20 2022-12-20 Travel 1.2.840.1 1.2.639.614 1543 [id number] Methodi 00:00:00 00:00:[address] 3.430.2.7 0.2.7.3.698 Ho spita .3.344788 084.8 l .8 2022-12-20 2022-12-20 Travel 1.2.840.1 1.2.022.748 9082 [id number] Methodi 00:00:00 00:00:00 88338.1.1 350.1.13.43 159 3.430.2.7 0.2.7.3.698 Ho spita .3.394026 084.8 l .8 2022-12-19 2022-12-19 Outpatient TITA REEMA BENAVIDEZ [id number] Reema 18:30:00 18:30:00 KELLIE Seybol d 2022-12-19 2022-12-19 Outpatient ZARIA REEMA BENAVIDEZ [id number] Reema 00:00:00 00:00:00 ARABELLA Seybol d 2022-12-17 2022-12-17 Outpatient PREZAS REEMA BENAVIDEZ [id number] Reema 13:30:00 13:30:00 JOHNNIE Seybol d 2022-12-12 2022-12-12 Outpatient LAB90 REEMA BENAVIDEZ [id number] Reema 09:50:00 09:50:00 Seybol d 2022-12-12 2022-12-12 Outpatient PREZAS, REEMA BENAVIDEZ [id number] Reema 00:00:00 00:00:00 JOHNNIE Seybol d 2022-12-12 2022-12-12 Outpatient PREZAS, REEMA BENAVIDEZ [id number] Reema 00:00:00 00:00:00 JOHNNIE Seybol d 2022-12-07 2022-12-07 Outpatient PREZASREEMA [id number] Reema 00:00:00 00:00:00 JOHNNIE Seybol d 2022-11-28 2022-11-28 Outpatient PREZAS, REEMA BENAVIDEZ [id number] Reema 00:00:00 00:00:00 JOHNNIE Seybol d 2022-11-28 2022-11-28 Outpatient REEMA BENAVIDEZ [id number] Reema 00:00:00 00:00:00 Seybol d 2022-11-26 2022-11-27 Inpatient KEVIN BRIAN [facility] General Med 2 [id number] [facility] 05:34:00 20:00:00 2022-11-26 [facility]22[facility]11-27 [id number] [facility] [address] 05:34:00 20:00:00 Encounter [facility] 2022-11-26 2022-11-26 Outpatient REEMA JOSEPH [id number] Reema 14:00:00 14:00:00 BHARAT Seybol d 2022-11-26 2022-11-26 Outpatient REEMA BENAVIDEZ [id number] Reema 00:00:00 00:00:00 Seybol d 2022-11-26 2022-11-26 Outpatient JAVON CARLMorales BENAVIDEZ [id number] Reema 00:00:00 00:00:00 Seybol d 2022-11-26 2022-11-[address] [facility] [id number] 00:00:00 00:00:00 Only [facility] 2022-11-26 2022-11-26 Travel [facility] [id number] [facility] 00:00:00 00:00:00 [facility] 2022-11-19 2022-11-19 Outpatient REEMA AZEVEDO [id number] Reema 14:00:00 14:00:00 JOHNNIE Seybol d 2022-11-18 2022-11-18 Outpatient PATRICIA YAP [id number] Reema 14:00:00 14:00:00 Seybol d 2022-11-18 2022-11-18 Outpatient REEMA AZEVEDO [id number] Reema 11:00:00 11:00:00 JOHNNIE Seybol d 2022-11-17 2022-11-17 Outpatient REEMA AZEVEDO [id number] Reema 00:00:00 00:00:00 JOHNNIE Seybol d 2022-11-17 2022-11-17 Outpatient REEMA AZEVEDO [id number] Reema 00:00:00 00:00:00 JOHNNIE Seybol d 2022-11-14 2022-11-14 Outpatient Champion_P [facility] [id number] [place] 00:00:00 00:00:00 [id number] [facility] 2022-11-14 2022-11-14 Outpatient Champion_P [facility] [id number] [place] 00:00:00 00:00:00 [id number] [facility] 2022-11-14 2022-11-14 Eulogio Dee [facility] [place] - [id number] [facility] 00:00:00 00:00:00 Jaspreet Henderson MD: [id number] [facility] [address], [place] [address] , Ph. 2022-11-11 2022-11-11 Outpatient REEMA AZEVEDO [id number] Reema 00:00:00 00:00:00 JOHNINE Seybol d 2022-11-11 2022-11-11 Outpatient REEMA BENAVIDEZ [id number] Reema 00:00:00 00:00:00 Seybol d 2022-11-11 2022-11-11 Outpatient Champion_P [facility] [id number] [place] 00:00:00 00:00:00 [address] [facility] 2022-11-11 2022-11-11 Outpatient Champion_P [facility] 2497 [id number] [place] 00:00:00 00:00:00 [id number] [facility] 2022-11-11 2022-11-11 Outpatient Champion_P [facility] 2497 [id number] [place] 00:00:00 00:00:00 [id number] [facility] 2022-11-10 2022-11-10 Outpatient REEMA BENAVIDEZ [id number] Reema 00:00:00 00:00:00 Seybol d 2022-11-10 2022-11-10 Outpatient REEMA AZEVEDO [id number] Reema 00:00:00 00:00:00 JOHNNIE Seybol d 2022-11-06 2022-11-06 Telephone Team, [facility] LINDA 1.2.840.114 1 [id number] Univers 00:00:00 00:00:00 [facility] 350.1.13.10 [facility] 4.2.7.2.686 [place] [id number] [facility] [address] 2022-11-04 2022-11-04 Outpatient LAB90 REEMA BENAVIDEZ [id number] Reema 15:15:00 15:15:00 Seybol d 2022-11-04 2022-11-04 Outpatient PREBELLA REEMA BENAVIDEZ [id number] Reema 14:30:00 14:30:00 JOHNNIE Seybol d 2022-10-31 2022-10-31 Rodrigo Avendaño [facility] 1.2.840.114 [id number] [facility] 00:00:00 00:00:00 [facility] 350.1.13.10 it y of [place] 4.2.7.2.686 Anton as TREE?BLEA [id number] [address] MEDICAL OFFICE BUILDING 2022-10-28 2022-10-28 Outpatient PREBELLA REEMA BENAVIDEZ [id number] Reema 00:00:00 00:00:00 JOHNNIE Seybol d 2022-10-27 2022-10-27 Emergency Rosado, 1.2.840.1 [id number] Methodi 15:08:00 19:00:[address] [facility] 3.430.2.7 Hospi ta .3.349123 l .8 2022-10-27 2022-10-27 Emergency Ros[place], 1.2.840.1 [id number] 2100 131549 Methodi 15:08:00 19:00:[address] [facility] 3.430.2.7 Hospi ta .3.399797 l .8 2022-10-27 2022-10-27 Outpatient NEO GUNN REEMA BENAVIDEZ [id number] Reema 16:45:00 16:45:00 Seybol d 2022-10-27 2022-10-27 Outpatient PREZATomi REEMA BENAVIDEZ [id number] Reema 00:00:00 00:00:00 JOHNNIE Seybol d 2022-10-27 2022-10-27 Outpatient PREBELLA REEMA BENAVIDEZ [id number] Reema 00:00:00 00:00:00 JOHNNIE Seybol d 2022-10-27 2022-10-27 Travel 1.2.840.1 1.2.765.875 [id number] Methodi 00:00:00 00:00:[address] 3.430.2.7 0.2.7.3.698 Ho spita .3.260524 084.8 l .8 2022-10-27 2022-10-27 Travel 1.2.840.1 1.2.157.612 8037 [id number] Methodi 00:00:00 00:00:[address] 3.430.2.7 0.2.7.3.698 Ho spita .3.788723 084.8 l .8 2022-10-22 2022-10-22 Outpatient REEMA AZEVEDO [id number] Reema 00:00:00 00:00:00 JOHNNIE mejias 2022-10-20 2022-10-20 Outpatient REEMA RAMOS [id number] Reema 14:15:00 14:15:00 ISIS Cassidyol magalie 2022-10-20 2022-10-20 Outpatient REEMA RAMOS [id number] Reema 00:00:00 00:00:00 ISIS Cassidyol magalie 2022-10-20 2022-10-20 Outpatient RAMOSREEMA [id number] Reema 00:00:00 00:00:00 ISIS Cassidyol magalie 2022-10-18 2022-10-18 Telephone Lex Kline [facility] 1.2.840.114 [id number] Univers 00:00:00 00:00:00 [facility] 350.1.13.10 it [place] 4.2.7.2.686 Anton as TREE?BLEA [phone] [address] MEDICAL OFFICE BUILDING 2022-10-15 2022-10-15 Outpatient Jose Francisco KLINE III [facility] [id number] Univers 15:00:00 15:50:54 LEX keita [facility] 2022-10-15 2022-10-15 Urgent Lex Kline [facility] 1.2.840.114 [id number] Univers 15:00:00 15:50:54 Care Unknown, [facility] 350.1.13.10 ity of [place] 4.2.7.2.686 Anton as TREE?BLEA [id number] Id logan [address] MEDICAL OFFICE [facility] 2022-10-15 2022-10-15 Telephone Lex Kline [facility] 1.2.840.114 [id number] Univers 00:00:00 00:00:00 C HEALTH 350.1.13.10 it y of [place] 4.2.7.2.686 Anton as TREE?BLEA [phone] Id logan [address] OFFICE [facility] 2022-10-15 2022-10-15 Telephone Lex Kline [facility] 1.2.840.114 [id number] Univers 00:00:00 00:00:00 C HEALTH 350.1.13.10 it y of [place] 4.2.7.2.686 Anton as TREE?BLEA [phone] Id logan [address] OFFICE [facility] 2022-10-14 2022-10-14 Outpatient REEMA FOSTER [id number] Reema 00:00:00 00:00:00 FABIAN mejias 2022-10-14 2022-10-14 Outpatient REEMA FOSTER [id number] Reema 00:00:00 00:00:00 FABIAN mejias 2022-10-13 2022-10-13 Outpatient REEMA AZEVEDO [id number] Reema 00:00:00 00:00:00 JOHNNIE mejias 2022-10-10 2022-10-10 Telephone [facility] 1.2.840.114 [id number] Univers 00:00:00 00:00:00 Ang Db HEALTH 350.1.13.10 it y [facility] 4.2.7.2.686 [place] TREE?BLEA [id number] [address] OFFICE [facility] 2022-10-09 2022-10-09 Outpatient Jose Francisco AVENDAÑO [facility] [id number] Univers 12:40:00 14:13:19 AURORA keita [facility] 2022-10-09 2022-10-09 Urgent Aurora Avendaño [facility] 1.2.840.114 [id number] Univers 12:40:00 14:13:19 Care Unknown, [facility] HEALTH 350.1.13.10 ity of [place] 4.2.7.2.686 Anton as TREE?BLEA [id number] [address] OFFICE [facility] 2022-10-09 2022-10-09 Telephone Provider, [facility] 1.2.840.114 [id number] Univers 00:00:00 00:00:00 Ang Db HEALTH 350.1.13.10 it y [facility] 4.2.7.2.686 [place] TREE?BLEA [id number] [address] OFFICE [facility] 2022-10-09 2022-10-09 Refill Jarocho, [facility] 1.2.840.114 [id number] Univers 00:00:00 00:00:00 [facility] 350.1.13.10 [facility] 4.2.7.2.686 [place] as TREE?[place] [id number] [address] 2022-10-07 2022-10-07 Outpatient REEMA AZEVEDO [id number] Reema 00:00:00 00:00:00 JOHNNIE Seybol d 2022-09-30 2022-09-30 Outpatient REEMA AZEVEDO [id number] Reema 00:00:00 00:00:00 JOHNNIE Seybol d 2022-09-29 2022-09-29 Outpatient REEMA AZEVEDO [id number] Reema 14:15:00 14:15:00 JOHNNIE Seybol d 2022-09-26 2022-09-26 Outpatient REEMA AZEVEDO [id number] Reema 14:15:00 14:15:00 JOHNNIE Seybol d 2022-09-26 2022-09-26 Outpatient REEMA AZEVEDO [id number] Reema 00:00:00 00:00:00 JOHNNIE Seybol d 2022-09-23 2022-09-23 Outpatient LAB90 REEMA BENAVIDEZ [id number] Reema 11:10:00 11:10:00 Seybol d 2022-09-22 2022-09-22 Outpatient ARUN MERCER [id number] Reema 14:45:00 14:45:00 Seybol d 2022-09-22 2022-09-22 Outpatient REEMA AZEVEDO [id number] Reema 00:00:00 00:00:00 JOHNNIE Seybol d 2022-09-19 2022-09-19 Outpatient REEMA AZEVEDO [id number] Reema 15:15:00 15:15:00 OJHNNIE Seybol d 2022-09-15 2022-09-15 Outpatient REEMA AZEVEDO [id number] Reema 00:00:00 00:00:00 JOHNNIE Seybol d 2022-08-29 2022-08-29 Outpatient REEMA AZEVEDO [id number] Reema 14:15:00 14:15:00 JOHNNIE Seybol d 2022-08-28 2022-08-28 Outpatient REEMA FOSTER [id number] Reema 13:45:00 13:45:00 FABIAN Seybol d 2022-08-26 2022-08-26 Office Ryan, [facility] 1.2.840.114 [id number] [facility] 10:20:00 10:40:00 Visit Summer [facility] 350.1.13.10 [facility] 4.2.7.2.686 [facility] [phone] [address] OFFICE BUILDING 2022-08-26 2022-08-26 [facility] [id number] [facility] 10:20:00 10:20:00 SUMMER keita [facility] 2022-08-20 2022-08-20 Outpatient REEMA AZEVEDO [id number] Reema 00:00:00 00:00:00 JOHNNIE Seybol d 2022 2022 Outpatient LAB90 REEMA BENAVIDEZ [id number] Reema 14:10:00 14:10:00 Seybol d 2022-08-07 2022-08-07 Outpatient ARUN MERCER [id number] Reema 14:00:00 14:00:00 Seybol d 2022-08-01 2022-08-01 Outpatient PREZAS REEMA BENAVIDEZ [id number] Reema 10:45:00 10:45:00 JOHNNIE Seybol d 2022-07-31 2022-07-31 Outpatient PREZAS, REEMA BENAVIDEZ [id number] Reema 00:00:00 00:00:00 JOHNNIE Seybol d 2022-07-25 2022-07-25 Outpatient PREZAS, REEMA BENAVIDEZ [id number] Reema 11:30:00 11:30:00 JOHNNIE Seybol d 2022-07-24 2022-07-24 Outpatient PREZAS, REEMA BENAVIDEZ [id number] Reema 00:00:00 00:00:00 JOHNNIE Seybol d 2022-07-14 2022-07-14 Outpatient ARUN MERCER [id number] Reema 13:30:00 13:30:00 Seybol d 2022-07-08 2022-07-08 Outpatient ARUN MERCER [id number] Reema 00:00:00 00:00:00 Seybol d 2022-07-04 2022-07-04 Outpatient PREZAS, REEMA BENAVIDEZ [id number] Reema 13:45:00 13:45:00 JOHNNIE Seybol d 2022-07-02 2022-07-02 Outpatient PREZAS, REEMA BENAVIDEZ [id number] Reema 10:45:00 10:45:00 JOHNNIE Seybol d 2022-07-02 2022-07-02 Outpatient ARUN MERCER [id number] Reema 09:45:00 09:45:00 Seybol d 2022-07-01 2022-07-01 Outpatient PREZASREEMA [id number] Reema 15:00:00 15:00:00 JOHNNIE Seybol d 2022-07-01 2022-07-01 Outpatient PREZAS, REEMA BENAVIDEZ [id number] Reema 00:00:00 00:00:00 JOHNNIE Seybol d 2022-07-01 2022-07-01 Outpatient ARUN MERCER [id number] Reema 00:00:00 00:00:00 Seybol d 2022-07-01 2022-07-01 Outpatient ARUN MERCER REEMA BENAVIDEZ [id number] Reema 00:00:00 00:00:00 Seybol d 2022-06-30 2022-06-30 Outpatient LAB47 REEMA BENAVIDEZ [id number] Reema 10:20:00 10:20:00 Seybol d 2022-06-30 2022-06-30 Outpatient REEMA TIPTON [id number] Reema 09:15:00 09:15:00 [place] Seybo ld 2022-06-24 2022-06-24 Office MaggieNeo bermeo 1.2.840.114 [id number] Reema 14:45:00 15:15:00 Visit Johnnie Cavanaugh 350.1.13.13 Se ybold 1.2.7.2.686 [id number] 0 2022-06-24 2022-06-24 Outpatient ARUN MERCER REEMA BENAVIDEZ [id number] Reema 00:00:00 00:00:00 Seybol d 2022-06-23 2022-06-23 Outpatient CATHI, REEMA BENAVIDEZ [id number] Reema 00:00:00 00:00:00 JOHNNIE Seybol d 2022-06-17 2022-06-17 Office Brittneytomi Larson 1.2.840.114 [id number] Reema 14:45:00 15:15:00 Visit Johnnie Cavanaugh 350.1.13.13 Se ybold 1.2.7.2.686 [id number] 0 2022-06-17 2022-06-17 Outpatient REEMA AZEVEDO [id number] Reema 00:00:00 00:00:00 JOHNNIE Seybol d 2022-06-13 2022-06-13 Outpatient REEMA FOSTER [id number] Reema 00:00:00 00:00:00 FABIAN Seybol d 2022-06-13 2022-06-13 Outpatient RUSLANARUN REEMA BENAVIDEZ [id number] Reema 00:00:00 00:00:00 Seybol d 2022-06-13 2022-06-13 Outpatient REEMA FOSTER [id number] Reema 00:00:00 00:00:00 FABIAN Seybol d 2022-06-12 2022-06-12 Outpatient ARUN MERCER REEMA BENAVIDEZ [id number] Reema 09:45:00 09:45:00 Seybol d 2022-06-10 2022-06-10 Outpatient REEMA FOSTER [id number] Reema 00:00:00 00:00:00 FABIAN Seybol d 2022-06-04 2022-06-04 Outpatient ARUN MERCER REEMA BENAVIDEZ [id number] Reema 00:00:00 00:00:00 Seybol d 2022-06-04 2022-06-04 Outpatient REEMA FOSTER [id number] Reema 00:00:00 00:00:00 FABIAN Seybol d 2022-06-02 2022-06-02 Outpatient REEMA FOSTER [id number] Reema 00:00:00 00:00:00 FABIAN Seybol d 2022-05-26 2022-05-26 Outpatient MIREYA BENAVIDEZ [id number] Reema 00:00:00 00:00:00 MD KYLAH Seybol d 2022-05-22 2022-05-22 Outpatient URSLANARUN REEMA BENAVIDEZ [id number] Reema 00:00:00 00:00:00 Seybol d 2022-05-21 2022-05-21 Outpatient LAB90 REEMA BENAVIDEZ [id number] Reema 14:50:00 14:50:00 Seybol d 2022-05-19 2022-05-19 Outpatient REEMA FOSTER [id number] Reema 00:00:00 00:00:00 FABIAN Seybol d 2022-04-24 2022-04-24 Refill Lance [facility] 1.2.840.114 [id number] Univers 00:00:00 00:00:00 [facility] 350.1.13.10 it y of [place] 4.2.7.2.686 Anton as TREE?BLEA [id number] Me logan [address] MEDICAL OFFICE BUILDING 2022-04-23 2022-04-23 Outpatient REEMA FOSTER [id number] Reema 00:00:00 00:00:00 FABIAN Seybol d 2022-04-15 2022-04-15 Office Mahendra Neo 1.2.840.114 [id number] Reema 13:30:00 14:00:00 Visit Fabian Cavanaugh 350.1.13.13 Se ybold Somogyi 1.2.7.2.686 [id number] 0 2022-04-09 2022-04-09 Office Arun Mercer PINA 1.2.840.114 10 [id number] Reema 14:30:00 15:00:00 Visit Chery LARSON 350.1.13.13 Se ybold 1.2.7.2.686 [id number] 0 2022-04-01 2022-04-01 Outpatient REEMA FOSTER [id number] Reema 00:00:00 00:00:00 FABIAN Snyderybol d 2022-03-17 2022-03-17 Office Neo Foster 1.2.840.114 [id number] Reema 14:45:00 15:00:00 Visit Fabian Cavanaugh 350.1.13.13 Se ybold Somogyi 1.2.7.2.686 [id number] 0 2022-02-26 2022-02-26 Telephone Eve [facility] 1.2.840.114 [id number] Univers 00:00:00 00:00:00 PeekYou 350.1.13.10 it y of [place] 4.2.7.2.686 Anton as TREE?BLEA [id number] Id logan PARVEEN [address] [place] [address] OFFICE BUILDING 2022-02-25 2022-02-25 Outpatient LAB90 REEMA BENAVIDEZ [id number] Reema 09:10:00 09:10:00 Seybol d 2022-02-25 2022-02-25 Office Neo Foster 1.2.840.114 [id number] Reema 08:30:00 08:45:00 Visit Fabian Cavanaugh 350.1.13.13 Se ybold Somogyi 1.2.7.2.686 [id number] 0 2022-02-24 2022-02-24 Outpatient R CECILIA ABRAHAM [facility] [id number] Univers 15:30:00 15:30:00 CECILIA ABRAHAM [facility] 2022-02-23 2022-02-23 [facility] 1.2.840.114 [id number] Univers 00:00:00 00:00:00 Pat [facility] 350.1.13.10 it [facility] 4.2.7.2.686 [facility] [id number] [facility] [address] OFFICE BUILDING 2022-02-21 2022-02-21 Outpatient REEMA FOSTER [id number] Reema 00:00:00 00:00:00 FABIAN mejias 2022-02-19 2022-02-19 [facility] [id number] Univers 14:17:55 23:59:00 PAT [facility] 2022-02-19 2022-02-19 [facility] 1.2.840.114 [id number] Univers 14:17:55 23:59:00 Encounter Pat [place] 350.1.13.10 ity of [place] 4.2.7.2.686 [facility] [id number] [facility] [address] 2022-02-18 2022-02-18 [facility] [id number] Univers 13:30:00 13:30:00 [facility] 2022-02-18 2022-02-18 Outpatient R LANCE, [facility] [id number] Univers 13:30:00 13:30:00 [facility] 2022-02-18 2022-02-18 Outpatient R LANCE, [facility] [id number] Univers 13:30:00 13:30:00 [facility] 2022-02-18 2022-02-18 Outpatient REEMA FOSTER [id number] Reema 00:00:00 00:00:00 FABIAN mejias 2022-02-13 2022-02-13 Outpatient REEMA FOSTER [id number] Reema 00:00:00 00:00:00 FABIAN mejias 2022-02-13 2022-02-13 Outpatient REEMA FOSTER [id number] Reema 00:00:00 00:00:00 FABIAN Seybol d 2022-02-12 2022-02-12 Outpatient LAB90 REEMA BENAVIDEZ [id number] Reema 14:45:00 14:45:00 Seybol d 2022-02-12 2022-02-12 Office Neo Foster 1.2.840.114 [id number] Reema 14:00:00 14:30:00 Visit Fabian Cavanaugh 350.1.13.13 Se shan Pierreogyi 1.2.7.2.686 [id number] 2022-02-11 2022-02-11 Outpatient REEMA FOSTER [id number] Reema 00:00:00 00:00:00 FABIAN Seybol d 2022-02-07 2022-02-07 Outpatient REEMA FOSTER [id number] Reema 00:00:00 00:00:00 FABIAN Seybol d 2022-01-29 2022-01-29 Outpatient REEMA FOSTER [id number] Reema 00:00:00 00:00:00 FABIAN Seybol d 2022-01-29 2022-01-29 Orders LINDA Jarvis 1.2.840.114 [id number] Univers 00:00:00 00:00:00 Only Pat ABBOTT 350.1.13.10 [facility] 4.2.7.2.686 Anton as [phone] [address] 2022-01-28 2022-01-28 Outpatient LAB90 REEMA BENAVIDEZ [id number] Reema 14:25:00 14:25:00 Seybol d 2022-01-28 2022-01-28 Office Neo FOSTER 1.2.840.114 [id number] Reema 13:30:00 13:30:00 Visit FABIAN Cavanaugh 350.1.13.13 Se shan 1.2.7.2.686 [id number] 2022-01-27 2022-01-27 Outpatient Jose Francisco MEDEROS [facility] [id number] Univers 13:00:00 13:00:00 LISSETTE keita [facility] 2022-01-21 2022-01-21 Refill Jarvis, [facility] 1.2.840.114 [id number] Univers 00:00:00 00:00:00 Pat HEALTH 350.1.13.10 [place] [phone] [address] OFFICE BUILDING 2022-01-10 2022-01-10 Telephone Pearl [facility] 1.2.840.114 [id number] Univers 00:00:00 00:00:00 Wondiful A HEALTH 350.1.13.10 ity of [place] 4.2.7.2.686 Anton as TREE?BLEA [phone] [facility] [address] MEDICAL OFFICE BUILDING 2022-01-09 2022-01-09 Letter AndresLINDA 1.2.840.114 [id number] Univers 00:00:00 00:00:00 (Out) Kendra Isaac MILENA 350.1.13.10 it y of HOSPITAL 4.2.7.2.686 Anton as [id number] [address] 2022-01-08 2022-01-08 Outpatient R NABOR [facility] [id number] Univers 12:40:00 12:48:05 KAREN ity of [facility] 2022-01-08 2022-01-08 Urgent Nabor Karen [facility] 1.2.840.114 [id number] Univers 12:40:00 12:48:05 Care Ebrarim, Rania HEALTH 350.1.13.10 [facility] 4.2.7.2.686 Anton as TREE?BLEA [phone] Id sophiedenise AMOSPARVEEN [address] MEDICAL OFFICE BUILDING 2022-01-02 2022-01-02 Office [facility] 1.2.840.114 [id number] Univers 13:00:00 14:01:36 Visit Pat HEALTH 350.1.13.10 [place] [id number] [address] OFFICE BUILDING 2022-01-02 2022-01-02 Outpatient R SIMONA [facility] [id number] Univers 13:00:00 14:01:36 PAT ity [facility] 2022-01-02 2022-01-02 Outpatient R SIMONA [facility] [id number] Univers 13:00:00 14:01:36 PAT ity of [facility] 2022-01-02 2022-01-02 Outpatient R SIMONA [facility] [id number] Univers 13:00:00 13:00:00 PAT ity [facility] 2022-01-02 2022-01-02 Outpatient R SIMONA [facility] [id number] Univers 13:00:00 13:00:00 PAT ity [facility] 2022-01-02 2022-01-02 Orders Doctor LINDA 1.2.840.114 [id number] Univers 00:00:00 00:00:00 Only Unassigned, MILENA 350.1.13.10 ity of [place] [facility] 4.2.7.2.686 Anton as [id number] [address] 2021-11-09 2021-11-09 [facility] 1.2.840.114 [id number] Univers 17:40:00 18:00:00 Care Karen HEALTH 350.1.13.10 [facility] 4.2.7.2.686 Anton as TREE?BLEA [id number] [facility] [address] MEDICAL OFFICE BUILDING 2021-11-09 2021-11-09 [facility] [id number] Univers 17:40:00 17:40:00 KAREN ittaylor [facility] 2021-10-23 2021-10-23 Outpatient R LUCAS [facility] [id number] Univers 12:45:00 13:03:37 [facility] 2021-10-23 2021-10-23 [employer], Ang - Luis F [facility] 1.2.840.1 14 [id number] Univers 12:45:00 13:00:00 Visit Lance [facility] 350.1.13.10 [facility] 4.2.7.2.686 Anton as TREE?BLEA [phone] [facility] [address] MEDICAL OFFICE BUILDING 2021-10-23 2021-10-23 Outpatient R LANCE [facility] [id number] Univers 12:00:00 12:46:03 WENTONG ity of [facility] 2021-10-23 2021-10-23 Office [facility] 1.2.840.114 [id number] Univers 12:00:00 12:46:03 [place] [facility] 350.1.13.10 it y of [place] 4.2.7.2.686 Anton as TREE?BLEA [phone] Me dicdenise CARVER [address] [facility] OFFICE [facility] 2021-10-11 2021-10-11 Telephone [facility] 1.2.840.114 [id number] Univers 00:00:00 00:00:00 Wondiful A HEALTH 350.1.13.10 ity of [place] 4.2.7.2.686 Anton as TREE?BLEA [phone] Me logan CARVER [address] [facility] OFFICE [facility] 2021-10-07 2021-10-07 Telephone [facility] 1.2.840.114 [id number] Univers 00:00:00 00:00:00 Wondiful A HEALTH 350.1.13.10 ity of [place] 4.2.7.2.686 Anton as TREE?BLEA [phone] Me logan CARVER [address] [facility] OFFICE [facility] 2021-10-04 2021-10-04 Urgent Jarocho Aurora [facility] 1.2.840.114 [id number] Univers 17:00:00 17:20:00 Care Steve Singh HEALTH 350.1.13.10 ity of [place] 4.2.7.2.686 Anton as TREE?BLEA [phone] Id dicdenise CARVER [address] [facility] OFFICE [facility] 2021-10-04 2021-10-04 Outpatient R SAMANTHA [facility] [id number] Univers 17:00:00 17:00:00 STEVE leger f [facility] 2021-08-27 2021-08-27 Telephone [facility] 1..840.114 [id number] Univers 00:00:00 00:00:00 Wondiful A HEALTH 350.1.13.10 ity of [place] 4.2.7.2.686 Anton as TREE?BLEA [phone] Id logan CARVER 044 Agency MEDICAL OFFICE BUILDING 2021-08-16 2021-08-16 Refill [facility] 1.2.840.114 [id number] Univers 00:00:00 00:00:00 Wentong HEALTH 350.1.13.10 [facility] 4.2.7.2.686 Anton as TREE?BLEA [phone] Id logan CARVER 220 Agency MEDICAL OFFICE [facility] 2021-08-14 2021-08-14 Refill [facility] 1.2.840.114 [id number] Univers 00:00:00 00:00:00 [place] HEALTH 350.1.13.10 it y of [place] 4.2.7.2.686 Anton as TREE?BLEA [phone] Id logan CARVER [address] [facility] OFFICE [facility] 2021-08-13 2021-08-13 Outpatient R [facility] [id number] Univers 08:58:00 11:16:00 SHEHARYAR ity of [facility] 2021-08-13 2021-08-13 Hospital [facility] 1.2.840.114 [id number] Univers 08:58:00 11:16:[address] [facility] HEALTH 350.1.13.10 ity of [place] 4.2.7.2.686 [facility] [phone] [address] ([facility]) 2021-08-13 2021-08-13 Surgery [facility] 1.2.840.114 [id number] Univers 10:30:00 11:04:00 [facility] SPECIALTY 350.1.13.10 ity of CARE 4.2.7.2.686 [facility] AT [phone] Id logan ANDRES [address] [place] [address] 2021-08-13 2021-08-13 Orders Doctor MCKEON 1.2.840.114 [id number] Univers 00:00:00 00:00:00 Only Unassigned, MILENA 350.1.13.10 ity of [place] [facility] 4.2.7.2.686 Anton as [phone] [address] 2021-08-06 2021-08-06 Outpatient R VISHNU [facility] [id number] Univers 14:20:00 14:20:00 JACQUE keita of [facility] 2021-08-01 2021-08-01 Telephone Pearl [facility] 1.2.840.114 [id number] Univers 00:00:00 00:00:00 Wondiful A Health 350.1.13.10 ity of [place] 4.2.7.2.686 Anton as Tree?Blea [phone] Id dicdenise vaz 044 Agency Medical Office [facility] 2021-07-30 2021-07-30 Laboratory Only, Ang Db Test [facility] 1.2.8 40.114 [id number] Univers 16:13:20 16:28:20 Only Steve Singh Health 350.1.13.10 ity of [place] 4.2.7.2.686 Anton as Tree?Blea [phone] Id dicdenise carver 370 [facility] Office [facility] 2021-07-30 2021-07-30 Outpatient R SAMANTHA [facility] [id number] Univers 16:15:00 16:15:00 STEVE chloetaylor o f [facility] 2021-07-17 2021-07-17 Dispatcher Bus And Trolley Lab, Ang - Db [facility] 1.2.840.1 14 [id number] Univers 09:28:13 09:43:13 Visit Pilar Kang [facility] 350.1.13.1 0 ity of [place] 4.2.7.2.686 Anton as Tree?Blea [phone] Id logan carver 353 Agency Medical Office [facility] 2021-07-17 2021-07-17 Outpatient R [facility] [id number] Univers 09:30:00 09:30:00 ity of [facility] 2021-07-16 2021-07-16 Office [facility] 1.2.840.114 [id number] Univers 09:34:08 10:31:44 Visit Mickeyful A Health 350.1.13.10 ity of [place] 4.2.7.2.686 Anton as Tree?Blea [phone] Id dical kney 044 Agency Medical Office Building 2021-07-16 2021-07-16 Outpatient R PEARL [facility] [id number] Univers 09:30:00 09:30:00 WONDIFUL ity o f [facility] 2021-07-11 2021-07-11 Refill Samantha [facility] 1.2.840.114 [id number] Univers 00:00:00 00:00:00 Steve Health 350.1.13.10 i ty of [place] 4.2.7.2.686 Anton as Professio [phone] Id dical nal [address] [place] [address] Office [facility] One 2021-07-03 2021-07-03 Office [facility] 1.2.840.114 [id number] Univers 15:40:46 16:47:20 Visit [facility] 350.1.13.10 it y of [place] 4.2.7.2.686 Anton as Tree?Blea [phone] Id dicdenise vaz 220 [facility] Office Building 2021-07-03 2021-07-03 Outpatient R LANCE [facility] [id number] Univers 15:30:00 15:30:00 WENTONG ity of [facility] 2021-06-25 2021-06-25 Telephone [facility] 1.2.251.000 [id number] Univers 00:00:00 00:00:00 [facility] 350.1.13.10 it y of [place] 4.2.7.2.686 Anton as Tree?Blea [phone] Id dicdenise vaz 220 Agency Medical Office Building 2021-06-20 2021-06-20 Telephone [facility] 1.2.141.271 [id number] Univers 00:00:00 00:00:00 [facility] 350.1.13.10 it y of [place] 4.2.7.2.686 Anton as Tree?Blea [phone] Id dical [facility] 220 Agency Medical Office Building 2021-06-14 2021-06-14 Letter LINDA Campos 1.2.840.114 [id number] Univers 00:00:00 00:00:00 (Out) Kendra Gray MILENA 350.1.13.10 it y of HOSPITAL 4.2.7.2.686 Anton as [phone] [address] 2021-06-14 2021-06-14 Letter Andres, LINDA 1.2.840.114 [id number] Univers 00:00:00 00:00:00 (Out) Kendra Gray MILENA 350.1.13.10 it y of HOSPITAL 4.2.7.2.686 Anton as [phone] [address] 2021-06-14 2021-06-14 Patient Doctor LINDA 1.2.840.114 [id number] Univers 00:00:00 00:00:00 Secure Msg Unassigned, MILENA 350.1.13.10 ity of [place] [facility] 4.2.7.2.686 Anton as [phone] [address] 2021-06-13 2021-06-13 Laboratory Only, Ang Db Test [facility] 1.2.8 40.114 [id number] Univers 13:56:12 14:06:12 [facility] 350.1.13.10 ity of [place] 4.2.7.2.686 Anton as Tree?Blea [phone] Id logan carver [address] [place] [address] Office Building 2021-06-13 2021-06-13 Outpatient R NABOR [facility] [id number] Univers 14:00:00 14:00:00 KAREN ity of [facility] 2021-06-12 2021-06-12 Office Sury HIGERARDO 1.2.840.114 [id number] Univers 10:04:18 10:34:18 Visit Marizol SPECIALTY 350.1.13.10 ity of [place] AT [phone] Id logan ANDRES [address] [place] [address] 2021-06-12 2021-06-12 Office Sury [facility] 1.2.840.114 [id number] Univers 10:04:18 10:34:18 Visit Marizol SPECIALTY 350.1.13.10 ity of [place]2.7.2.[place] AT [phone] Id logan Clarke2 [facility] 2021-06-12 2021-06-12 Outpatient R SURY [facility] [id number] Univers 10:00:00 10:00:00 MARIZOL ity [facility] 2021-06-12 2021-06-12 Orders Doctor MCKEON 1.2.840.114 [id number] Univers 00:00:00 00:00:00 Only Unassigned, MILENA 350.1.13.10 ity of [place] [facility]OSPITAL 4.2.7.2.686 Anton as [phone] [facility] 009 Agency 2021-06-12 2021-06-12 Orders Doctor LINDA 1.2.840.114 [id number] Univers 00:00:00 00:00:00 Only Unassigned, MILENA 350.1.13.10 ity of [place] HOSPITAL 4.2.7.2.686 Anton as [phone] [facility] 009 Agency 2021-05-30 2021-05-30 Letter Danii Estrada 1.2.840.114 [id number] Univers 00:00:00 00:00:00 (Out) MILENA 350.1.13.10 it y of HOSPITAL 4.2.7.2.686 Anton as [phone] [facility] 019 Agency 2021-05-28 2021-05-28 Outpatient R NABOR [facility] [id number] Univers 18:40:00 18:40:00 KAREN ity [facility] 2021-05-17 2021-05-17 Rodrigo [facility] 1.2.840.114 [id number] Univers 00:00:00 00:00:00 Wondiful A Health 350.1.13.10 ity of [place] 4.2.7.2.686 Anton as Professio [phone] Id sophiedenise scales 044 Agency Office Building One 2021-05-16 2021-05-16 Rodrig[facility] 1.2.840.114 [id number] Univers 00:00:00 00:00:00 Wondiful A Health 350.1.13.10 ity of [place] 4.2.7.2.686 Anton as Professio [phone] [address] Office [facility] One 2021-05-06 2021-05-06 Telephone [facility] 1.2.840.114 [id number] Univers 00:00:00 00:00:00 Steve [place] 350.1.13.10 ity of [place] [phone] [address] 2021-05-03 2021-05-03 [facility] 1.2.875.370 [id number] 0451 Univers 14:30:00 23:59:00 Encounter Steveshivani Mejiaton 350.1.13.10 ity of [place].2.7.2.686 [place] [phone] [address] 2021-05-03 2021-05-03 Outpatient R [facility] [id number] Univers 00:00:00 00:00:00 STEVE coronay o f [facility] 2021-05-02 2021-05-02 [facility] 1.2.840.114 [id number] Univers 00:00:00 00:00:00 Steve Health 350.1.13.10 i ty of [place] 4.2.7.2.686 Anton as Professio [phone] [address] Office [facility] One 2021-05-02 2021-05-02 [facility] 1.2.840.114 [id number] Univers 00:00:00 00:00:00 Steve [place] 350.1.13.10 ity of [place].2.[place] [phone] [address] 2021-04-25 2021-04-25 [facility] 1.2.840.114 [id number] Univers 00:00:00 00:00:00 Steve Health 350.1.13.10 i ty of [place] 4.2.7.2.686 Anton as Professio [phone] [address] Office [facility] One 2021-04-24 2021-04-24 Dispatcher Bus And Trolley 2, Adc Lab [facility] 1.2.840.114 [id number] Univers 13:45:23 14:00:23 Visit Steve Singh 350.1.13.10 ity of [place].7.2.[place] [phone] [facility] 353 [facility] 2021-04-24 2021-04-24 Office [facility] 1.2.840.114 [id number] [id number] Univers 12:52:06 13:39:19 Visit Steve Cheek 350.1.13.10 ity of [place].2.7.2.[place] [phone] Id dical nal 044 [facility] 2021-04-24 2021-04-24 [facility] [id number] Univers 13:00:00 13:00:00 STEVE keita o f [facility] 2021-04-11 2021-04-11 Rodrigo Kang [facility] 1.2.840.114 [id number] Univers 00:00:00 00:00:00 Wondiful A Health 350.1.13.10 ity of [place] 4.2.7.2.686 Anton as Professio [phone] [facility] 044 Agency Office [facility] One 2021-04-04 2021-04-04 Office Jarvis, [facility] 1.2.840.114 [id number] Univers 13:07:38 13:40:24 Visit Pat Health 350.1.13.10 it y of [place]2.7.2.686 [place] [phone] [facility] 095 Agency Office Building 2021-04-04 2021-04-04 Outpatient [facility] 059 [id number] Univers 13:00:00 13:00:00 PAT keita of [facility] 2021-03-28 2021-03-28 Telephone LINDA Armstrong 1.2.358.229 [id number] Univers 00:00:00 00:00:00 Farhad ABBOTT 350.1.13.10 i ty of HOSPITAL 4.2.7.2.686 Anton as [phone] [facility] 082 Agency 2021-03-20 2021-03-20 Office [facility] 1.2.840.114 [id number] Univers 14:56:49 15:47:12 Visit Arthur [place] 350.1.13.10 i ty of [place]7.2.[place] [phone] [facility] 220 [facility] 2021-03-20 2021-03-20 Outpatient R LANCE [facility] [id number] Univers 15:00:00 15:00:00 WENTONG ity of [facility] 2021-03-20 2021-03-20 Orders Doctor LINDA 1.2.840.114 [id number] Univers 00:00:00 00:00:00 Only Unassigned, MILENA 350.1.13.10 ity of [place] HOSPITAL 4.2.7.2.686 Anton as [phone] [facility] 009 Agency 2021-03-04 2021-03-04 Telephone Maykel [facility] 1.2.050.662 [id number] [id number] Univers 00:00:00 00:00:00 Esther A Health 350.1.13.10 i ty of [place] 4.2.7.2.686 Anton as Professio [phone] [facility] 044 [facility] One 2021-02-19 2021-02-19 Rodrigo Kang [facility] 1.2.840.114 [id number] Univers 00:00:00 00:00:00 Wondiful A Health 350.1.13.10 ity of [place] 4.2.7.2.686 Anton as Professio [phone] [facility] 044 Agency Office [facility] One 2021-02-19 2021-02-19 Orders Doctor LINDA 1.2.840.114 [id number] Univers 00:00:00 00:00:00 Only Unassigned, MILENA 350.1.13.10 ity of [place] HOSPITAL 4.2.7.2.686 Anton as [phone] [address] 2021-02-18 2021-02-18 Rodrigo Kang [facility] 1.2.840.114 [id number] Univers 00:00:00 00:00:00 Wondiful A [facility] 350.1.13.10 ity of [place] 4.2.7.2.686 Anton as Professio [phone] [facility] 044 Agency Office Building One 2021-02-13 2021-02-13 Dispatcher Bus And Trolley Debbie, Tyson Lab Main [facility] 1.2.8 40.114 [id number] Univers 12:06:05 12:21:05 Visit Steve Singh 350.1.13.10 ity of [place].2.[place] [phone] Id dical nal 353 [facility] 2021-02-13 2021-02-13 Outpatient Jose Francisco [facility] [id number] Univers 11:00:00 11:50:[address] [facility] 2021-02-13 2021-02-13 Office [facility] 1.2.840.114 [id number] Univers 10:59:05 11:50:39 Visit Steve Cheek 350.1.13.10 ity of [place]2.7.2.686 [place] [phone] [facility] 044 [facility] 2021-02-13 2021-02-13 Outpatient Jose Francisco [facility] [id number] Univers 11:00:00 11:00:[address] [facility] 2021-02-13 2021-02-13 Outpatient R [facility] [id number] Univers 11:00:00 11:00:[address] [facility] 2021-02-13 2021-02-13 Outpatient R [facility] [id number] Univers 11:00:00 11:00:[address] [facility] 2021-02-11 2021-02-11 Outpatient Jose Francisco [facility] [id number] Univers 13:30:00 13:30:[address] [facility] 2021-02-08 2021-02-08 Telephone [facility] 1.2.840.114 [id number] [facility] 00:00:00 00:00:00 Chrissy MULTISPEC 350.1.13.10 ity of [place]2.[place].2.[place] C[place] [phone] [address] DIABETES CLINIC 2021-02-07 2021-02-07 Outpatient R SAMANTHA [facility] [id number] Univers 13:30:00 13:30:00 STEVE keita o f [facility] 2021-02-07 2021-02-07 Telephone [facility] 1.2.124.482 [id number] Univers 00:00:00 00:00:00 Esther A Health 350.1.13.10 i ty of [place] 4.2.7.2.686 Anton as Professio [phone] [address] Office Building One 2021-02-07 2021-02-07 Telephone [facility] 1.2.435.704 [id number] 3094 00:00:00 00:00:00 Esther A Health 350.1.13.10 [place] 4.2.7.2.686 Professio [phone] [place] [address] Office Building One 2021-02-07 2021-02-07 Emergency [facility] [id number] [place] [address] 00:00:00 00:00:[address] 2021-02-06 2021-02-06 Telephone [facility] 1.2.090.070 [id number] 8777 Univers 00:00:00 00:00:00 Esther A Health 350.1.13.10 i ty of [place] 4.2.7.2.686 Anton as Professio [phone] Id dicil nal [address] [place] [address] Office Building One 2021-02-01 2021-02-01 Telephone [facility] 1.2.840.114 [id number] [facility] 00:00:00 00:00:00 Chrissy MULTISPEC 350.1.13.10 ity of [place]2.[place].2.686 [place] C[place] [phone] [address] DIABETES CLINIC 2021-02-01 2021-02-01 Transition SamreenermiasSommer 1.2.840.114 [id number] Univers 00:00:00 00:00:00 of Care Heatherstanislaw Guajardoy 350.1.13.10 i ty of [place] 4.2.7.2.686 [place] [phone] [facility] 403 Branch 2021-02-01 2021-02-01 Telephone Gordon [facility] 1.2.840.114 83 [id number] 00:00:00 00:00:00 Chrissy SANCHEZ 350.1.13.10 Radha PERRY 4.2.7.2.686 [place] [phone] [place] [address] DIABETES CLINIC 2021-02-01 2021-02-01 Transition SamreenermiasSommer 1.2.840.114 83 [id number] 00:00:00 00:00:00 of Care Heather Juan 350.1.13.10 [place] [phone] 403 2021-01-29 2021-01-31 [facility] Arcenio Hand 1.2.840.1 14 [id number] [facility] 16:44:00 17:15:00 Encounter Huy Barrera 350.1.13. 10 ity of [facility] 4.2.7.2.686 [place] [phone] [facility] 094 Branch 2021-01-29 2021-01-31 Hospital Arcenio Hand 1.2.840.1 14 [id number] 16:44:00 17:15:00 Encounter Huy Barrera 350.1.13. 10 [facility] [phone] 094 2021-01-29 2021-01-29 Office Samantha [facility] 1.2.840.114 [id number] [facility] 15:27:18 16:23:45 Visit [facility] 350.1.13.10 i ty of [place] 4.2.7.2.686 Anton as Professio [phone] [address] Office [facility] One 2021-01-29 2021-01-29 Office [facility] 1.2.840.114 [id number] 15:27:18 16:23:45 Visit Steve Health 350.1.13.10 [place] 4.2.7.2.686 Professio [phone] [address] One 2021-01-29 2021-01-29 Outpatient R SAMANTHA [facility] [id number] Univers 15:30:00 15:30:00 STEVE ity o f [facility] 2021-01-23 2021-01-23 [facility] 1.2.660.102 [id number] 4069 Univers 00:00:00 00:00:00 Esther A Health 350.1.13.10 i ty of [place] 4.2.7.2.686 Anton as Professio [phone] [address] Office [facility] One 2021-01-22 2021-01-22 Telephone [facility] 1.2.313.674 [id number] 0189 Univers 00:00:00 00:00:00 Esther A Health 350.1.13.10 i ty of [place] 4.2.7.2.686 Anton as Professio [id number] [address] Office [facility] One 2021-01-15 2021-01-15 Telephone SOFYA Jarvis 1.2.840.11 4 [id number] Univers 00:00:00 00:00:00 Pat Y HEALTH 350.1.13.10 i ty of CLINICS 4[place]2.7.2.[place] [phone] [address] 2021-01-10 2021-01-10 Office Jarvis, [facility] 1.2.840.114 83 [id number] Univers 16:04:28 17:06:38 Visit Pat Health 350.1.13.10 it y of [place]2.7.2.686 [place] [phone] [address] Office Building 2021-01-10 2021-01-10 Outpatient R SIMONA [facility] [id number] Univers 16:20:00 16:20:00 PAT ity of [facility] 2021-01-10 2021-01-10 Telephone [facility] 1.2.840.114 [id number] Univers 00:00:00 00:00:00 Pat Health 350.1.13.10 it y [place]2.7.2.[place] [phone] [address] Office Building 2021-01-04 2021-01-04 [facility] 1.2.840.114 83 [id number] Univers 00:00:00 00:00:00 Pat Health 350.1.13.10 it y of [place]2.7.2.[place] [phone] [address] Office Building 2021-01-04 2021-01-04 [facility] 1.2.840.114 83 [id number] Univers 00:00:00 00:00:00 Pat Health 350.1.13.10 it y of [place]2.7.2.686 [place] [phone] [address] Office Building 2020-12-27 2020-12-27 [facility] 1.2.840.114 [id number] Univers 11:09:33 23:59:00 Encounter Pat Health 350.1.13.10 ity of [place]2.7.2.686 [place] [phone] [address] Office Building 2020-12-27 2020-12-27 Office [facility] 1.2.840.114 [id number] Univers 11:36:00 12:29:33 Visit Pat Health 350.1.13.10 it y of [place] 4[place]2.7.2.686 [place] [phone] [address] Office Building 2020-12-27 2020-12-27 Outpatient R [facility] [id number] Univers 11:40:00 11:40:00 PAT ity [facility] 2020-12-27 2020-12-27 Orders Doctor MCKEON 1.2.840.114 [id number] Univers 00:00:00 00:00:00 Only Unassigned, MILENA 350.1.13.10 ity of [place] [facility] 4.2.7.2.686 Anton as [phone] [facility] 009 Branch 2020-12-27 2020-12-27 Letter Doctor LINDA 1.2.840.114 [id number] Univers 00:00:00 00:00:00 (Out) Unassigned, MILENA 350.1.13.10 ity of [place] [facility] 4.2.7.2.686 Anton as [phone] [facility] 044 Branch 2020-11-26 2020-11-26 Telephone [place], [facility] 1.2.840.11 4 [id number] Univers 00:00:00 00:00:00 Pat Y HEALTH 350.1.13.10 i ty of CLINICS 4.2.7.2.[place] [id number] [address] 2020-11-22 2020-11-22 Office [facility] 1.2.840.114 81 [id number] Univers 11:35:21 12:51:52 [facility] 350.1.13.10 it y [place]2.7.2.[place] [phone] [address] Office Building 2020-11-22 2020-11-22 Outpatient [facility] [id number] Univers 11:40:00 11:40:00 PAT ity of [facility] 2020-10-02 2020-10-02 Telephone [facility] 1.2.840.11 [id number] Univers 00:00:00 00:00:00 Pat Y HEALTH 350.1.13.10 i ty of CLINICS 4.2.7.2.[place] [phone] [address] 2020-10-02 2020-10-02 Telephone [facility] 1.2.573.995 [id number] [id number] Univers 00:00:00 00:00:00 Esther Cheek 350.1.13.10 ity of [place] 4.2.7.2.[place] [phone] Id dical nal 044 Branch Building 2020-09-25 2020-09-25 Refill Jarvis, [facility] 1.2.840.114 [id number] Univers 00:00:00 00:00:00 Pat Y HEALTH 350.1.13.10 i ty [place] [phone] [facility] 095 Agency 2020-09-21 2020-09-21 [facility] Jarvis, [facility] 1.2.840.114 [id number] Univers 00:00:00 00:00:00 Pat Health 350.1.13.10 [place] [phone] [facility] [address] [place] [address] Office Building 2020-09-12 2020-09-12 Orders Doctor LINDA 1.2.840.114 [id number] Univers 00:00:00 00:00:00 Only Unassigned, MILENA 350.1.13.10 ity of [place] [facility] 4.2.7.2.686 Anton as [phone] [address] 2020-09-10 2020-09-10 Viola Kang [facility] 1.2.840.114 [id number] Univers 00:00:00 00:00:00 Wondiful A Health 350.1.13.10 ity of [place] 4.2.7.2.686 Anton as Professio [phone] Id dicil nal [facility] Branch Office Building One 2020-09-08 2020-09-08 Refyinka Kang HIGERARDO 1.2.840.114 [id number] Univers 00:00:00 00:00:00 Wondiful A Health 350.1.13.10 ity of [place] 4.2.7.2.686 [place] as Professio [phone] [address] Office Building One 2020-09-05 2020-09-05 Case Pearl [facility] 1.2.840.114 [id number] Univers 00:00:00 00:00:00 Management Wondiful A Health 350.1.13.10 ity of [place] 4.2.7.2.686 [place] as Professio [phone] Me dical nal 044 Agency Office [facility] One 2020-09-03 2020-09-03 [facility] 1..840.114 [id number] Univers 00:00:00 00:00:00 Wondiful A Health 350.1.13.10 ity of [place] 4.2.7.2.686 Anton as Professio [phone] [facility] nal 044 [facility] One 2020-08-29 2020-08-29 [facility] 1.2.840.114 [id number] Univers 00:00:00 00:00:00 Wondiful A Health 350.1.13.10 ity of [place] 4.2.7.2.686 Anton as Professio [phone] [facility] 044 [facility] One 2020-08-28 2020-08-28 Dispatcher Bus And Trolley 2, Adc Lab [facility] 1.2.840.114 [id number] Univers 09:26:46 09:41:46 Visit Esther Brar [place] 350.1.13.10 ity of [place] [phone] [facility] 353 [facility] 2020-08-28 2020-08-28 Outpatient R MAYKEL [facility] [id number] Univers 09:15:00 09:15:00 ESTHER ity of [facility] 2020-08-27 2020-08-27 Telephone [facility] 1.2.228.871 [id number] Univers 00:00:00 00:00:00 Esther A Health 350.1.13.10 i ty of [place] 4.2.7.2.686 Anton as Professio [phone] [facility] nal [address] [place] [address] Office [facility] One 2020-08-24 2020-08-24 Telemedici [facility] 1.2.840.114 [id number] Univers 16:20:19 17:02:34 ne Visit Wondiful A Health 350.1.13.10 ity of [place] 4.2.7.2.686 Anton as Professio [phone] Id dical nal 044 [facility] One 2020-08-24 2020-08-24 Outpatient R PEARL, [facility] [id number] Univers 16:15:00 16:15:00 WONDIFUL ity o f [facility] 2020-08-09 2020-08-09 Outpatient R SIMONA, [facility] [id number] Univers 14:00:00 14:00:00 PAT ittaylor [facility] 2020-08-03 2020-08-03 Outpatient R TWILAChery, [facility] [id number] [facility] 10:30:00 10:30:00 AGUSTÍN taylor [facility] 2020-07-20 2020-07-20 Refill Simona, [facility] 1.2.840.114 [id number] Univers 00:00:00 00:00:00 Pat Y HEALTH 350.1.13.10 i ty of CL[place] [phone] [address] 2020-06-19 2020-06-19 [facility] 1.2.840.114 [id number] Univers 00:00:00 00:00:00 Pat Y HEALTH 350.1.13.10 i ty of CL[place] [phone] [address] 2020-06-14 2020-06-14 Outpatient Jose Francisco KANG, [facility] [id number] Univers 08:45:00 08:45:00 WONDIFUL ity o f [facility] 2020-06-14 2020-06-14 Viola [facility] 1.2.571.331 [id number] Univers 00:00:00 00:00:00 Esther A Health 350.1.13.10 i ty of [place] 4.2.7.2.686 Anton as Professio [phone] Id dical nal 044 Agency Office [facility] 2020-06-12 2020-06-12 Refill [facility] 1.2.840.114 [id number] Univers 00:00:00 00:00:00 Esther A Health 350.1.13.10 i ty of [place] 4.2.7.2.686 Anton as Professio [phone] Id dical nal 044 Agency Office [facility] 2020-06-12 2020-06-12 Refill Pearl, [facility] 1.2.840.114 [id number] Univers 00:00:00 00:00:00 Wondiful A Health 350.1.13.10 ity of [place] 4.2.7.2.686 [place] as Professio [phone] Id logan nal [address] [place] [address] Office [facility] One 2020-06-11 2020-06-11 Urgent Provider, [facility] 1.2.840.114 [id number] Univers 14:39:50 14:59:50 Care AneLigia medinathia Health 350.1.13.10 ity of [place] 4.2.7.2.686 [place] as Professio [phone] Id dical nal [address] [place] [address] Office [facility] One 2020-06-11 2020-06-11 Outpatient R [facility] [id number] Univers 14:20:00 14:20:00 ity of [facility] 2020-05-23 2020-05-23 Refyinka Brar, [facility] 1.2.840.114 [id number] Univers 00:00:00 00:00:00 Esther A Health 350.1.13.10 i ty of [place] 4.2.7.2.686 Anton as Professio [phone] Id dical nal [address] [place] [address] Office [facility] One 2020-05-22 2020-05-22 Refill Jarvis, [facility] 1.2.840.114 [id number] Univers 00:00:00 00:00:00 Pat Health 350.1.13.10 it y of [place].2.[place] [phone] [place] [address] Branch Office [facility] 2020-05-21 2020-05-21 Telephone [place], [facility] 1.2.840.114 [id number] Univers 00:00:00 00:00:00 Pat Health 350.1.13.10 it y [place] [phone] [address] Office [facility] 2020-05-18 2020-05-18 Telephone [place], [facility] 1.2.840.114 [id number] Univers 00:00:00 00:00:00 Pat Health 350.1.13.10 it y of [place].2.[place] [phone] [address] Office Building 2020-05-15 2020-05-15 Telephone Simona, [facility] 1.2.840.11 [id number] Univers 00:00:00 00:00:00 Pat Scott HEALTH 350.1.13.10 i ty of CLINICS [place] [phone] [address] 2020-05-10 2020-05-10 Office [facility] 1.2.840.114 [id number] Univers 13:51:36 15:16:46 Visit Pat Health 350.1.13.10 it y of [place].2.[place] [phone] [address] Office [facility] 2020-05-10 2020-05-10 Outpatient R SIMONA, [facility] [id number] Univers 14:00:00 14:00:00 PAT [facility] 2020-05-09 2020-05-09 Telephone Simona, [facility] 1.2.840.11 [id number] Univers 00:00:00 00:00:00 Pat Scott HEALTH 350.1.13.10 i ty of CLINICS [place].2.[place] [phone] [address] 2020-05-03 2020-05-03 Outpatient R SIMONA, [facility] [id number] Univers 13:20:00 13:20:00 PAT [facility] 2020-05-03 2020-05-03 Outpatient R KAREY, [facility] VLS [id number] [id number] Univers 10:17:00 10:17:00 AGUSTÍN [facility] 2020-04-30 2020-04-30 Refill [facility] 1.2.840.114 [id number] Univers 00:00:00 00:00:00 Esther A Health 350.1.13.10 i ty of [place] 4.2.7.2.686 Anton as Professio [phone] Id dic[address] Office Building One 2020-04-25 2020-04-25 Refill Jeremy [facility] 1.2.319.133 [id number] 1518 Univers 00:00:00 00:00:00 Faby Cheek 350.1.13.10 i ty of [place].2.[place] [phone] Id dical nal 134 [facility] 2020-04-11 2020-04-11 Prep For Lui Wu [facility] 1.2.840.114 [id number] Univers 00:00:00 00:00:00 Surgery MULTISPEC 350.1.13.10 ity of [place].2.7.2.[place] CENTER [phone] [facility] 011 Agency [facility] 2020-04-10 2020-04-10 Office Supa Steve J [facility] 1.2.84 0.114 [id number] Univers 13:08:03 14:45:41 Visit Agustín [place] 350.1.13. 10 [facility] 4.2.7.2.686 [place] C[place] [phone] [facility] 011 Agency [facility] 2020-04-10 2020-04-10 Outpatient R KAREY [facility] [id number] Univers 13:30:00 13:30:00 AGUSTÍN ity of [facility] 2020-04-10 2020-04-10 Refill Jeremy [facility] 1.2.529.467 [id number] Univers 00:00:00 00:00:00 Faby Cheek 350.1.13.10 i ty of [place].2.[place] [phone] Id dical [facility] 134 [facility] 2020-04-10 2020-04-10 Orders Doctor MCKEON 1.2.840.114 [id number] Univers 00:00:00 00:00:00 Only Unassigned, MILENA 350.1.13.10 ity of [place] [facility] 4.2.7.2.686 Anton as [phone] [place] [address] Branch 2020-04-01 2020-04-01 Refill Jeremy [facility] 1.2.515.155 [id number] 0722 Univers 00:00:00 00:00:00 Faby Cheek 350.1.13.10 i ty of [place].2.[place] [phone] [address] 2020-03-27 2020-03-27 Telephone [facility] 1.2.840.114 [id number] Univers 00:00:00 00:00:00 Wondiful A Health 350.1.13.10 ity of [place] 4.2.7.2.686 [place] as Professio [phone] [address] 2020-03-26 2020-03-26 [facility] 1.2.840.114 [id number] Univers 00:00:00 00:00:00 Wondiful A Health 350.1.13.10 ity of [place] 4.2.7.2.686 [place] as Professio [phone] [address] 2020-03-20 2020-03-20 Outpatient R NABOR [facility] [id number] Univers 16:20:00 16:20:00 KAREN ity [facility] 2020-03-16 2020-03-16 Rodrigo [facility] 1..460.019 [id number] Univers 00:00:00 00:00:00 Fabyyana Cheek 350.1.13.10 i ty of [place].2.[place] [phone] [address] 2020-03-15 2020-03-15 Outpatient R JEREMY [facility] [id number] Univers 14:30:00 14:30:00 FABY ity [facility] 2020-03-15 2020-03-15 Refyinka [facility] 1.2.574.915 [id number] Univers 00:00:00 00:00:00 Faby Adia 350.1.13.10 i ty of [place].2.[place] [phone] [address] 2020-03-07 2020-03-07 [facility] 1.2.840.114 [id number] Univers 00:00:00 00:00:00 Wondiful A Health 350.1.13.10 ity of [place] 4.2.7.2.686 Anton as Professio [phone] Id dical nal 044 [facility] 2020-02-02 2020-02-02 Telemedici [facility] 1.2.840.114 [id number] Univers 08:12:15 15:32:51 ne Visit Pat Cheek 350.1.13.10 ity of [place].2.7.2.[place] [phone] Id dical nal 134 [facility] 2020-02-02 2020-02-02 [facility] 020 [id number] Univers 14:30:00 14:30:00 PAT ity [facility] 2020-01-30 2020-01-30 Outpatient R ADAM BRISENO [facility] [id number] Univers 15:00:00 15:00:00 ity [facility] 2020-01-30 2020-01-30 Telemedici Faby Luna [facility] 1.2.840 .114 [id number] Univers 08:40:27 14:57:35 ne Visit Adam Briseno 350.1.13.10 ity of [place].7.2.[place] [phone] Id dical nal [address] [place] [address] 2020-01-20 2020-01-20 Telephone Adam Briseno [facility] 1.2.840.114 [id number] Univers 00:00:00 00:00:00 Josh Mejiaton 350.1.13.10 i ty of [place] 4.2.7.2.686 [place] [phone] Id dical nal [address] [place] [address] 2020-01-18 2020-01-18 Telephone Adam Briseno [facility] 1.2.840.114 [id number] Univers 00:00:00 00:00:00 Cam [place] 350.1.13.10 i ty of [place] 4.2.7.2.[place] [phone] Id dical [address] 2020-01-18 2020-01-18 Refill Adam Briseno [facility] 1.2.640.739 [id number] 9383 Univers 00:00:00 00:00:00 Josh Cheek 350.1.13.10 i ty of [place] 4.2.7.2.[place] [phone] [address] 2020-01-17 2020-01-17 Orders LINDA Luna 1.2.350.758 [id number] [id number] Univers 00:00:00 00:00:00 Only Faby ABBOTT 350.1.13.10 it y of [facility] 4.2.7.2.686 Anton as [phone] [address] 2020-01-16 2020-01-16 Outpatient R JEREMY [facility] [id number] Univers 16:15:00 16:15:00 FABY keita [facility] 2020-01-16 2020-01-16 Telemedici [facility] 1..840.114 7 [id number] Univers 14:56:15 15:11:15 ne Visit Faby Cheek 350.1.13.10 ity of [place] 4.[place].7.2.[place] [phone] [address] 2020-01-16 2020-01-16 Telephone [facility] ..840.114 [id number] Univers 00:00:00 00:00:00 Wondiful Morales MejiaHoffman 350.1.13.10 ity of [place] 4.2.7.2.[place] [phone] [address] 2020-01-05 2020-01-05 Outpatient R JEREMY [facility] [id number] Univers 13:45:00 13:45:00 FABY keita [facility] 2020-01-05 2020-01-05 Telemedici [facility] 1.2.840.114 [id number] Univers 13:29:36 13:44:36 ne Visit Faby Cheek 350.1.13.10 ity of [place] 4.2.7.2.[place] [phone] [place] [address] [facility] 2020-01-05 2020-01-05 Telephone [facility] 1.2.840.114 [id number] Univers 00:00:00 00:00:00 Faby Cheek 350.1.13.10 i ty of [place] 4.2.7.2.[place] [phone] [facility] 134 [facility] 2019-12-22 2019-12-22 [facility] [id number] Univers 13:54:06 23:59:00 FABY keita [facility] 2019-12-22 2019-12-22 [facility] 1.2.840.114 [id number] Univers 13:54:00 23:59:00 Encounter Faby Cheek 350.1.13.10 ity of [place].2.7.2.686 [place] [phone] [facility] 806 Agency 2019-12-22 2019-12-22 Office [facility] 1.2.840.114 [id number] Univers 15:13:31 16:58:13 Visit Esther Nielsen T-Quad 22 350.1.13.10 i ty of [place] 4.2.7.2.686 Anton as Professio [phone] [facility] 044 Agency Office [facility] One 2019-12-22 2019-12-22 Orders Doctor LINDA 1.2.840.114 [id number] Univers 00:00:00 00:00:00 Only Unassigned, MILENA 350.1.13.10 ity of [place] [facility] 4.2.7.2.686 Anton as [phone] [facility] 009 Agency 2019-12-20 2019-12-20 Telephone Adam Briseno [facility] 1.2.840.114 [id number] Univers 00:00:00 00:00:00 Cam Adia 350.1.13.10 i ty of [place] 4.2.7.2.[place] [phone] [facility] 134 [facility] 2019-12-14 2019-12-14 [facility] [id number] Univers 12:43:56 23:59:00 FABY keita of [facility] 2019-12-14 2019-12-14 [facility] 1.2.840.114 [id number] Univers 12:43:00 23:59:00 Encounter Faby Cheek 350.1.13.10 ity of [place].2.7.2.[place] [phone] [address] 2019-12-14 2019-12-14 Office [facility] 1.2.686.848 [id number] 0583 Univers 11:22:45 12:07:03 Visit Faby Cheek 350.1.13.10 i ty of [place] 4.2.7.2.[place] [phone] Id dical nal [address] [place] [address] 2019-12-14 2019-12-14 Case [facility] 1.2.520.622 [id number] 0286 Univers 00:00:00 00:00:00 Management Faby Cheek 350.1.13.10 ity of [place] 4.2.7.2.[place] [phone] Id dical nal [address] [place] [address] 2019-12-13 2019-12-13 Telephone Johnnyu langone [facility] 1.2.840.114 [id number] Univers 00:00:00 00:00:00 Faby Cheek 350.1.13.10 i ty of [place] 4.2.7.2.[place] [phone] Id dical nal [address] [place] [address] 2019-12-08 2019-12-08 Office Adam Briseno [facility] 1.2.253.432 [id number] 2247 Univers 12:55:59 14:01:07 Visit Josh Cheek 350.1.13.10 i ty of [place] 4.2.7.2.686 [place] [phone] Id dicil nal [address] [place] [address] 2019-12-08 2019-12-08 Outpatient R ADAM BRISENO [facility] [id number] [id number] Univers 13:00:00 13:00:00 ity [facility] 2019-12-06 2019-12-06 Telephone [facility] 1.2.557.634 [id number] Univers 00:00:00 00:00:00 Esther Nielsen Health 350.1.13.10 i ty of [place] 4.2.7.2.686 Anton as Professio [phone] [facility] 044 [facility] 2019-12-01 2019-12-01 Dispatcher [employer]rol[employer] 2, Adc Lab [facility] 1.2.840.114 [id number] Univers 13:54:38 14:09:38 Visit Esther Brar Morales eMjiaHoffman 350.1.13.10 ity of [place] 4.2.7.2.[place] [phone] [facility] 353 [facility] 2019-12-01 2019-12-01 Outpatient R JEREMY [facility] 75512 [id number] Univers 13:00:00 13:45:16 FABY ity [facility] 2019-12-01 2019-12-01 Office [facility] 1.2.194.984 [id number] [id number] Univers 12:55:31 13:45:16 Visit Faby Cheek 350.1.13.10 i ty of [place].2.[place] [phone] Id dicil nal 134 [facility] 2019-12-01 2019-12-01 Orders Doctor LINDA 1.2.840.114 [id number] Univers 00:00:00 00:00:00 Only Unassigned, MILENA 350.1.13.10 ity of [place] [facility] 4.2.7.2.686 Anton as [phone] [address] 2019-11-30 2019-11-30 Office [facility] 1.2.840.114 [id number] Univers 12:34:27 13:09:34 Visit Esther Nielsen Health 350.1.13.10 i ty of [place] 4.2.7.2.686 Anton as Professio [phone] [facility] 044 [facility] 2019-11-26 2019-11-26 Refill [facility] 1.2.840.114 [id number] Univers 00:00:00 00:00:00 Esther Nielsen Health 350.1.13.10 i ty of [place] 4.2.7.2.686 Anton as Professio [phone] Id dical nal 044 Agency Office [facility] One 2019-11-11 2019-11-11 Hospital [facility] 1.2.840.114 [id number] Univers 14:10:00 23:59:00 Encounter Faby Cheek 350.1.13.10 ity of [place].2.[place] [phone] [facility] 806 Agency 2019-11-10 2019-11-10 Telephone [facility] 1.2.840.114 [id number] Univers 00:00:00 00:00:00 Faby Cheek 350.1.13.10 i ty of [place].7.2.[place] [phone] Id dical nal 134 [facility] 2019-11-08 2019-11-08 Dispatcher [employer] And Trolley 2, Adc Lab [facility] 1.2.840.114 [id number] Univers 10:31:32 10:46:32 Visit Faby Luna 350.1.13.10 ity of [place] 4.2.7.2.[place] [phone] Id dical yordy 353 [facility] 2019-11-08 2019-11-08 Office [facility] 1.2.554.368 [id number] 4720 Univers 09:44:45 10:14:45 Visit Faby Cheek 350.1.13.10 i ty of [place] 4.2.7.2.[place] [phone] Id dical nal 134 [facility] 2019-11-08 2019-11-08 Orders Doctor LINDA 1.2.840.114 [id number] Univers 00:00:00 00:00:00 Only Unassigned, MILENA 350.1.13.10 ity of [place] [facility] 4.2.7.2.686 Anton as [phone] [facility] 009 Agency 2019-11-08 2019-11-08 Telephone [facility] 1.2.840.114 [id number] Univers 00:00:00 00:00:00 Faby Cheek 350.1.13.10 i ty of [place].2.[place] [phone] [facility] 134 [facility] 2019-11-08 2019-11-08 Telephone [facility] 1.2.840.114 [id number] Univers 00:00:00 00:00:00 Faby [place] 350.1.13.10 i ty of [place].7.2.[place] [phone] [facility] 134 [facility] 2019-06-10 2019-06-10 Orders Doctor LINDA 1.2.840.114 [id number] Univers 00:00:00 00:00:00 Only Unassigned, MILENA 350.1.13.10 ity of [place] [facility] 4.2.7.2.686 Anton as [phone] [address] 2019-06-09 2019-06-09 Telephone [facility] 1.2.691.903 7332 5491 Univers 00:00:00 00:00:00 Esther A Health 350.1.13.10 i ty of [place] 4.2.7.2.686 Anton as Professio [phone] [address] Office [facility] 2019-05-27 2019-05-27 [facility]phone [facility] 1.2.981.446 [id number] 6379 Univers 00:00:00 00:00:00 Esther A Health 350.1.13.10 i ty of [place] 4.2.7.2.686 Anton as Professio [phone] [address] Office [facility] 2019-05-24 2019-05-24 Office [facility] 1.2.840.114 [id number] 27 Univers 13:00:44 13:20:44 Visit Esther A Health 350.1.13.10 i ty of [place] 4.2.7.2.686 Anton as Professio [phone] [address] Office [facility] 2019-05-24 2019-05-24 Orders Doctor LINDA 1.2.840.114 [id number] Univers 00:00:00 00:00:00 Only Unassigned, MILENA 350.1.13.10 ity of [place] [facility] 4.2.7.2.686 Anton as [phone] [facility] owen [address]9 [address] 2019-05-07 2019-05-07 Refill [facility] 1.2.840.114 [id number] Univers 00:00:00 00:00:00 Esther Roblero 350.1.13.10 i ty rodolfo Cheek 4.2.7.2.686 Anton as [place]innie [phone] Me dical nal 044 Agency Office Building One Results Test Description Test Time Test Comments Results Result Comments Source POC glucose 2022-12-23 01:33:00 Test Item Value Reference Range Interpretation Comme nts POC glucose (test code = 240 mg/dL 65-99 H Ope rator Name: Carroll Zunigamaine 81829-7) RDevice ID: [id number]: [facility] Notified tooling supervisor Interpretation (test code = Abnormal 50025-8) [facility] [id number] 01:33:00 Test Item Value Reference Range Interpretation Comments POC glucose (test code = 240 mg/dL 65-99 H Ope rator Name: [id number]) Carroll monson RDevice ID: [id number] able : [facility] Notified tooling supervisor Interpretation (test Abnormal code = 21745-5) [place] [address] [id number] 02:44:06 Test Item Value Reference Range Interpretation Comments Ventricular rate (test 81 code = 253) Atrial rate (test code 81 = 255) AK interval (test code 128 = 266) QRSD interval (test 86 code = 260) QT interval (test code 376 = 264) QTC interval (test code 436 = 265) P axis 1 (test code = 40 267) QRS axis 1 (test code = 36 268) T wave axis (test code 57 = 270) EKG impression (test Normal sinus code = 273) rhythm-Normal ECG-In automated comparison with ECG of 27-OCT-2022 15:23,-No significant change was found- [place] [address] [id number] 02:44:06 Test Item Value Reference Range Interpretation Comments Ventricular rate (test 81 code = 253) Atrial rate (test code 81 = 255) AK interval (test code 128 = 266) QRSD interval (test 86 code = 260) QT interval (test code 376 = 264) QTC interval (test code 436 = 265) P axis 1 (test code = 40 267) QRS axis 1 (test code = 36 268) T wave axis (test code 57 = 270) EKG impression (test Normal sinus code = 273) rhythm-Normal ECG-In automated comparison with ECG of 27-OCT-2022 15:23,-No significant change was found- Scientologist AuyicbsbCREG-KdR-0 (COVID-19) RNA [Presence] in Respiratory specimen by AMENA with probe [id number] 21:27:51 Test Item Value Reference Range Interpretation Comments SARS-CoV-2 (COVID-19) RNA Not detected [Presence] in Respiratory specimen by AMENA with probe detection (test code = 29931-9) Whether patient is employed in a Unknown healthcare setting (test code = 66764-0) Whether the patient has symptoms Unknown related to condition of interest (test code = 10727-1) Whether the patient was Unknown hospitalized for condition of interest (test code = 56738-7) Whether the patient was admitted Unknown to intensive care unit (ICU) for condition of interest (test code = 68350-5) Whether patient resides in a Unknown congregate care setting (test code = 64360-0) status (test code = Unknown 99628-1) Date and time of symptom onset Unknown (test code = 17149-2) JASPREET [facility]U [facility]-Glucose [id number] 16:37:33 Test Item Value Reference Range Interpretation Comments POC-Glucose Meter (test 210 mg/dL 70-110 H : TE STED AT [facility] code = 1538) [id number] [facility] [address]: Health And Social Care Teacher/Techni lauri ID = [id number] for Nayan Sharp Lab Interpretation (test Abnormal code = 96150-0) [facility] [id number] 16:37:33 Test Item Value Reference Range Interpretation Comments POC-GLUCOSE METER 210 mg/dL 70-110 H : TESTED A T [facility] [address] (BEAKER) (test code [facility], = 1538) [place] [address]: Health And Social Care Teacher/Techni lauri ID = [id number] for Audie Kinsey POCT-GLUCOSE [id number] 13:05:43 Test Item Value Reference Range Interpretation Comments POC-GLUCOSE METER 139 mg/dL 70-110 H : TESTED A T [facility] [address] ([facility]) (test code [facility], = 1538) [place] [address] 384: Health And Social Care Teacher/Techni lauri ID = [id number] for W Trudy blood POCT-GLUCOSE [id number] 06:21:26 Test Item Value Reference Range Interpretation Comments POC-GLUCOSE METER 160 mg/dL 70-110 H : Notified RN/MD: TESTED ([facility]) (test code AT [facility] [id number] [place] [address] = 1538) [facility] [id number]: Health And Social Care Teacher/Techni lauri ID = [id number] for L ee, Silke POCT-GLUCOSE [id number] 20:38:20 Test Item Value Reference Range Interpretation Comments POC-GLUCOSE METER 167 mg/dL 70-110 H : Notified RN/MD: TESTED ([facility]) (test code AT [facility] [id number] [place] [address] = 1538) [facility] [address]: Health And Social Care Teacher/Techni lauri ID = [id number] for L ee, Silke COVID [id number] 17:58:31 Test Item Value Reference Range Interpretation Comments SARS COVID ANTIGEN Positive Negative A (test code = 97976-7) GASTON (test code = GASTON) The QuickVue SARS Antigen test does not differentiate between SARS-CoV and SARS-CoV-2. The test has been authorized by the FDA under an EUA for use by authorized laboratories. Lab Interpretation Abnormal (test code = 11993-6) [facility] [id number] 17:58:31 Test Item Value Reference Range Interpretation Comments SARS COVID ANTIGEN (test code = Positive Negative A 86003952) The QuickVue SARS Antigen test does not differentiate between SARS-CoV and SARS-CoV-2.The test has been authorized by the FDA under an EUA for use by authorized laboratories.2D Echo W/Doppler(CW/PW/Color)2022-11-26 17:40:01 Ejection FractionSLEH ECHO HEARTLAB MKCKESSON CPACSCHI [facility] POCT-GLUCOSE [id number] 15:38:37 Test Item Value Reference Range Interpretation Comments POC-GLUCOSE METER 142 mg/dL 70-110 H : Notified RN/MD: TESTED (BEAKER) (test code AT [facility] [address] [facility] = [address] [place] [address]: Health And Social Care Teacher/Techni lauri ID = [id number] for Carolynn Aguirre CT, BRAIN, WITHOUT [id number] 14:46:00Reason for Exam (Free Text) - Addiitonal information for Radiologist->[facility] 1970 Sex: FFINAL REPORT CT Head without contrast CLINICAL HISTORY: Altered mental status TECHNIQUE: Contiguous axial CT images through the head without contrast. This exam was performed according to the departmental dose optimization program which includes automated exposure control, adjustment of the mA and/or kV according to the patient size, and/or use of an iterative reconstruction technique. COMPARISON: None FINDINGS: There is no CT evidence of acute infarct or intracranial hemorrhage. There is mild generalized sulcal prominence without hydrocephalus, midline shift, or apparent mass effect. There are no extra-axial fluid collections. The skull is intact. The visualized paranasal sinuses are well-aerated. IMPRESSION: No CT evidence of acute infarct, hemorrhage, or hydrocephalus. Signed: Airam Barillas MDReport Verified Date/Time: 11/26/2022 14:46:57 /FREE T4 IF [id number] 14:20:27 Test Item Value Reference Range Interpretation Comments THYROID STIMULATING HORMONE 0.793 uIU/mL 0.350-5.500 (TARUN) (test code = 772) Health And Social Care Teacher ID - ZMINEHEMOGLOBIN [id number] 12:23:38 Test Item Value Reference Range Interpretation Comments HEMOGLOBIN A1C (TARUN) (test code = 11.9 % 4.3-6.1 H 368) Health And Social Care Teacher ID - [id number], CHEST, 1 VIEW, NON [id number] 12:08:00Reason for exam:->AMS, rule out aspirationShould this be performed at the bedside?->[facility] : 1970 Sex: FFINAL REPORT Chest, 1 view, 11/26/2022 11:29 AM. History: Altered mental status. Comparison: None available. Discussion: The cardiomediastinal silhouette and pulmonary vasculature are within normal limits for a portable exam. The lungs are clear without evidence of consolidation or effusion. The soft tissues and osseous structures are intact. IMPRESSION: No acute cardiopulmonary abnorma lity. Signed: Tim David Verified Date/Time: 11/26/2022 12:08:27 Reading Location: [facility] Reading Room POCT-GLUCOSE [id number] 11:55:56 Test Item Value Reference Range Interpretation Comments POC-GLUCOSE METER 156 mg/dL 70-110 H : Notified RN/MD: TESTED (BEAKER) (test code AT [facility] [address] [facility] = [address] [place] [address]: Health And Social Care Teacher/Techni lauri ID = [id number] for Carolynn Aguirre urinalysis, [id number] 17:57:00 Test Item Value Reference Range Interpretation Comments Result: (test code = 0-2 RBC, 0 WBC, no Result:) bacteria [facility] UrologyUrinalysis macro (dipstick) panel - [id number] 16:04:00 Test Item Value Reference Range Interpretation [...] nitrite (test code = negative neg nitrite) [facility] UrologyECG 12 [id number] 00:54:53 Test Item Value Reference Range Interpretation Comments Ventricular rate (test 93 code = 253) Atrial rate (test code 93 = 255) AK interval (test code 124 = 266) QRSD [...] [facility] [id number] 22:33:00 Test Item Value Reference Range Interpretation Comments Sodium (test code = 134 See_Comment [Automa eugenio message] 4261-2) The system [employer] generated this result transmit eugenio reference range : 128 - 145 mEq/L. Th e reference range was not used to interpret this result as normal/abnormal . Potassium (test code = 4.3 See_Comment [Aut omated message] 5193-3) The system [employer] generated this result transmit eugenio reference range : 3.6 - 5.1 mEq/L. Th e reference range was not used to interpret this result as normal/abnormal . CO2 (test code = 2028-06) 28 See_Comment [A utomated message] The system [employer] generated this result transmit eugenio reference range : 18 - 33 mEq/L. The reference range was not used to interpret this result as normal/abnormal . Chloride (test code = 103 See_Comment [Auto mated message] 2074-0) The system [employer] generated this result transmit eugenio reference range : 98 - 108 mEq/L. Th e reference range was not used to interpret this result as normal/abnormal . Glucose (test code = 292 mg/dL 73-118 H 2345-7) Calcium (test code = 9.4 mg/dL 8.0-10.3 18460-7) BUN (test code = 3094-0) 14 mg/dL 7-22 Creatinine (test code = 0.8 mg/dL 0.5-0.9 0-0) Alkaline phosphatase 56 U/L 42-141 (test code = 6768-6) ALT (test code = 1742-6) 26 U/L 10-47 AST (test code = 1920-8) 22 U/L 11-38 Total bilirubin (test 0.6 mg/dL 0.2-1.6 code = 1974-2) Albumin (test code = 3.3 g/dL 3.3-5.5 1750-7) Protein (test code = 6.6 g/dL 6.4-8.1 5-2) Anion gap (test code = 3 See_Comment L [Aut omated message] 99691-2) The system [employer] generated this result transmit eugenio reference range : 7 - 15 mEq/L. The reference range was not used to interpret this result as normal/abnormal . A/G ratio (test code = 1.0 0.7-3.8 1759-0) Lab Interpretation (test Abnormal code = 38282-4) [facility] [id number] 22:33:00 Test Item Value Reference Range Interpretation Comments eGFR SWD-ARQ-Rmdtbvjwpm 88 mL/min/1.73 m^2 T he (test code = 8334) creatinin e-estimated glomerular filtration rate (Cr-eGFR) is calculated usin g the equation recomm ended in June,, by the National Kidney Foundation/[facility] Society of Nephrology Task Force on Reasse ssing the Inclusion o f Race in Diagnos ing Kidney Disease. DOI: https://doi.org /10.1 053/j.ajkd.2020 .08.0 03). eGRF Interpretation see below Category Units (test code = 8337) Interpret ationG1 >=90 Normal or highG2 60-89 Mi ldly rxxrwbdxjE0m 45 -59 Mildly to moder ately lzzwfvqmaU5c 30 -44 Moderately to severely decrea sedG4 15-29 Severely decreasedG5 <15 Kidney failure [facility] MOLECULAR [id number] 19:56:40 Test Item Value Reference Range Interpretation Comments POCT Molecular FluA (test code = Negative Negative 52544-0) POCT Molecular FluB (test code = Negative Negative 36436-4) Lab Interpretation (test code = Normal 83650-6) [facility] MOLECULAR [id number] 19:56:40 Test Item Value Reference Range Interpretation Comments POCT Molecular FluA (test code = Negative Negative 07491-6) POCT Molecular FluB (test code = Negative Negative 80366-7) Lab Interpretation (test code = Normal 65041-0) [facility] MOLECULAR [id number] 19:56:40 Test Item Value Reference Range Interpretation Comments POCT Molecular FluA (test code = Negative Negative 26493-9) POCT Molecular FluB (test code = Negative Negative 26866-2) Lab Interpretation (test code = Normal 42390-0) [facility] MOLECULAR [id number] 19:56:40 Test Item Value Reference Range Interpretation Comments POCT Molecular FluA (test code = Negative Negative 66581-0) POCT Molecular FluB (test code = Negative Negative 23982-0) Lab Interpretation (test code = Normal 43564-1) [facility] MOLECULAR [id number] 19:56:40 Test Item Value Reference Range Interpretation Comments POCT Molecular FluA (test code = Negative Negative 10002-9) POCT Molecular FluB (test code = Negative Negative 62327-5) Lab Interpretation (test code = Normal 32251-1) [facility] MOLECULAR [id number] 19:56:40 Test Item Value Reference Range Interpretation Comments POCT Molecular FluA (test code = Negative Negative 66677-8) POCT Molecular FluB (test code = Negative Negative 66922-6) Lab Interpretation (test code = Normal 09754-2) [facility] MOLECULAR [id number] 19:56:40 Test Item Value Reference Range Interpretation Comments POCT Molecular FluA (test code = Negative Negative 67681-0) POCT Molecular FluB (test code = Negative Negative 66494-1) Lab Interpretation (test code = Normal 93375-4) [facility] SARS-COV-2 ANTIGEN (BINAX NOW)2022-10-09 19:51:00 Test Item Value Reference Range Interpretation Comments POCT SARS-COV-2 ANTIGEN (test Not Detected Not Detected code = 91767-3) On board controls acceptable Yes with C Line (test code = 3574) Lab Interpretation (test code = Normal 90608-0) [facility] SARS-COV-2 ANTIGEN (BINAX NOW)2022-10-09 19:51:00 Test Item Value Reference Range Interpretation Comments POCT SARS-COV-2 ANTIGEN (test Not Detected Not Detected code = 32561-0) On board controls acceptable Yes with C Line (test code = 3574) Lab Interpretation (test code = Normal 03334-9) [facility] SARS-COV-2 ANTIGEN (BINAX NOW)2022-10-09 19:51:00 Test Item Value Reference Range Interpretation Comments POCT SARS-COV-2 ANTIGEN (test Not Detected Not Detected code = 53563-5) On board controls acceptable Yes with C Line (test code = 3574) Lab Interpretation (test code = Normal 76980-8) [facility] SARS-COV-2 ANTIGEN (BINAX NOW)2022-10-09 19:51:00 Test Item Value Reference Range Interpretation Comments POCT SARS-COV-2 ANTIGEN (test Not Detected Not Detected code = 49975-7) On board controls acceptable Yes with C Line (test code = 3574) Lab Interpretation (test code = Normal 49789-6) [facility] SARS-COV-2 ANTIGEN (BINAX NOW)2022-10-09 19:51:00 Test Item Value Reference Range Interpretation Comments POCT SARS-COV-2 ANTIGEN (test Not Detected Not Detected code = 38685-3) On board controls acceptable Yes with C Line (test code = 3574) Lab Interpretation (test code = Normal 11419-2) [facility] SARS-COV-2 ANTIGEN (BINAX NOW)2022-10-09 19:51:00 Test Item Value Reference Range Interpretation Comments POCT SARS-COV-2 ANTIGEN (test Not Detected Not Detected code = 92883-6) On board controls acceptable Yes with C Line (test code = 3574) Lab Interpretation (test code = Normal 51975-6) [facility] SARS-COV-2 ANTIGEN (BINAX NOW)2022-10-09 19:51:00 Test Item Value Reference Range Interpretation Comments POCT SARS-COV-2 ANTIGEN (test Not Detected Not Detected code = 98939-0) On board controls acceptable Yes with C Line (test code = 3574) Lab Interpretation (test code = Normal 85431-4) [facility] [id number] 00:00:00 Test Item Value Reference Range Interpretation Comments BLOOD SUGAR (test code = 158071) 354 mg/dL 65-99 A Lab Interpretation (test code = Abnormal 53000-8) [facility] [id number] 17:00:00 Test Item Value Reference Range Interpretation [...] POCT U APPEAR (test code = 3267) [facility] URINALYSIS W SPECIFIC [id number] 17:00:00 Test Item Value Reference Range Interpretation [...] POCT U APPEAR (test code = 3267) [facility] URINALYSIS W SPECIFIC [id number] 17:00:00 Test Item Value Reference Range Interpretation [...] POCT U APPEAR (test code = 3267) [facility] [id number] 14:51:00 Test Item Value Reference Range Interpretation Comments BLOOD SUGAR (test code = 498685) 226 mg/dL 65-99 A Lab Interpretation (test code = Abnormal 44074-2) Reema Mar
[2023-08-04] MEDS ORDERED: NA CHLORIDE 0.9% 1,000 ML ONE ×4 (06:29→11:55)
[2023-08-04] MEDS ORDERED: HYDROCORTISONE SUC 100 MG INJ ONE (06:51)
[2023-08-04] MEDS ORDERED: ONDANSETRON 4 MG/2 ML VIAL ONE (06:52)
[2023-08-04] MEDS ORDERED: MORPHINE 4 MG/ML SYR ONE ×2 (06:52→11:05)
[2023-08-04 06:59] LABS: Absolute Lymphocytes (CBC) 0.7 K/uL (0.7-4.9); Hematocrit 44.9 % (36.0-45.0); MCV 85.6 fL (80-100); MPV 8.4 fL (7.6-11.3); Platelets 228 thou/uL (152-406); RBC Red Blood Cell Count 5.24 M/uL (3.86-4.86)
[2023-08-04 07:00] LABS: Specific Gravity 1.024 (1.005-1.030); Urine Bacteria <20 /HPF (<20); Urine Bilirubin NEGATIVE (Negative); Urine Blood Negative (Negative); Urine Clarity Clear (Clear); Urine Color Light-Yellow (Yellow); Urine Glucose NEGATIVE (Negative); Urine Protein TRACE (Negative); Urine RBC <5 /HPF (None Seen); Urine Urobilinogen Normal (Normal); Urine pH 8.5 (5.0-7.0)
[2023-08-04 07:16] LABS: Albumin 3.7 g/dL (3.4-5.0); Bilirubin Total 0.5 mg/dL (0.2-1.0); Potassium 3.9 mEq/L (3.5-5.1)
[2023-08-04] MEDS ORDERED: PROMETHAZINE INJ 25 MG/ML AMP ONE ×2 (07:58→08:54)
--- NOTE | 2023-08-04 08:18 | RAD REPORT ---
EXAM DESCRIPTION: CT - Abdomen Pelvis W Contrast - 08/04/2023 8:00 am CLINICAL HISTORY: Abdominal pain COMPARISON: June 2023 TECHNIQUE: Computed axial tomography of the abdomen pelvis was obtained. 100 cc Isovue-300 was admin istered intravenously. Oral contrast was not requested which limits evaluation of bowel and appendix All CT scans are performed using dose optimization technique as appropriate and may include automated exposure control or mA/KV adjustment according to patient size. FINDINGS: Pancreas is normal in size and density. No significant peripancreatic stranding. No pseudo cyst Mild stranding is present within central mesentery of the abdomen indicative of a mild mesenteritis. Liver, spleen, adrenals and right kidney unremarkable. Several nonobstructing left renal calculi again demonstrated. Small left renal cysts with cortical re nal thinning. Normal appendix. No evidence diverticulitis No adnexal mass Small umbilical hernia IMPRESSION: Mild stranding is present within central mesentery of the abdomen indicative of a mild m esenteritis.
--- NOTE | 2023-08-04 08:32 | ER ---
Nurse's Notes [facility] Name: Sadia Mcpherson Age: 52 yrs Sex: Female : 1970 Arrival Date: 08/04/2023 Time: 05:40 Bed 5 Private MD: Diagnosis: Vomiting-intractable;Other specified disorders of adrenal gland-adrenal insufficency;Type 1 diabetes mellitus with hyperglycemia;Epigastric abdominal tenderness;UTI/ Urinary tract infection, site not specified Presentation: 08/04 05:54 Chief complaint: Patient states: "I think my pancreas is acting up again. It feels like as6 it did last time" pt c/o upper abdominal pain, nausea, vomiting that started yesterday. Coronavirus screen: At this time, the client does not indicate any symptoms associated with coronavirus-19. Ebola Screen: No symptoms or risks identified at this time. Initial Sepsis Screen: Does the patient meet any 2 criteria? No. Patient's initial sepsis screen is negative. Does the patient have a suspected source of infection? No. Patient's initial sepsis screen is negative. Risk Assessment: Do you want to hurt yourself or someone else? Patient reports no desire to harm self or others. Onset of symptoms was August 03, 2023. 05:54 Acuity: JAYLEN 3 as6 05:54 Method Of Arrival: Wheelchair as6 Triage Assessment: 05:54 General: Appears uncomfortable, Behavior is cooperative, restless. Pain: Complains of as6 pain in left upper quadrant Pain radiates to epigastric area and right upper quadrant. GI: Reports upper abdominal pain, nausea, vomiting. 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 - Social history:: Smoking status: Patient denies any tobacco usage or history of. - Family history:: not pertinent. Screenin:56 [facility] ED Fall Risk Assessment (Adult) Score/Fall Risk Level 0 - 2 = Low Risk. Abuse as6 screen: Denies threats or abuse. Denies injuries from another. Nutritional screening: No deficits noted. Tuberculosis screening: No symptoms or risk factors identified. Assessment: 06:32 General: Appears uncomfortable, Behavior is calm, cooperative. Cardiovascular: No nw1 deficits noted. Respiratory: No deficits noted. GI: Bowel sounds present X 4 quads. hyperactive in right upper quadrant, left upper quadrant, right lower quadrant and left lower quadrant Guarding noted X 4 quads. pt states nausea and vomiting with palpation Reports intolerance of fluids, intolerance of food, nausea, vomiting, since 08/03/23. : No deficits noted. No signs and/or symptoms were reported regarding the genitourinary system. 06:50 Musculoskeletal: Reports generalized weakness. nw1 07:30 General: Appears in no apparent distress. comfortable, Behavior is calm, cooperative. rs5 Pain: Complains of pain in left upper quadrant Pain does not radiate. Pain currently is 5 out of 10 on a pain scale. Quality of pain is described as aching, Pain began 1 day ago. Is continuous. 07:30 Neuro: Level of Consciousness is awake, alert, obeys commands, Oriented to person, rs5 place, time, situation. Cardiovascular: Heart tones S1 S2 present Rhythm is regular. Respiratory: Airway is patent Respiratory effort is even, unlabored, Respiratory pattern is regular, symmetrical, Breath sounds are clear bilaterally. GI: Abdomen is round non-distended, Bowel sounds present X 4 quads. Abd is soft and non tender X 4 quads. Reports upper abdominal pain, nausea, vomiting. : No signs and/or symptoms were reported regarding the genitourinary system. EENT: No signs and/or symptoms were reported regarding the EENT system. Derm: Skin is intact, Skin is pink, warm \\T\\ dry. Musculoskeletal: Range of motion: intact in all extremities. 07:30 Reassessment: Pt states "My stomach hurts but I don't want any pain medications". rs5 08:35 Reassessment: No changes from previously documented assessment. rs5 Vital Signs: 05:53 BP 146 / 79; Pulse 92; Resp 20 S; Temp 97.7(TE); Pulse Ox 98% on R/A; Weight 90.72 kg as6 (R); Height 5 ft. 4 in. (R); Pain 8/10; 07:20 BP 140 / 75; Pulse 88; Resp 18; Pulse Ox 98% on R/A; rs5 08:15 BP 142 / 70; Pulse 80; Resp 17; Pulse Ox 99% on R/A; rs5 05:53 Body Mass Index 34.33 (90.72 kg, 162.56 cm) as6 05:53 Pain Scale: Adult as6 ED Course: 05:42 Patient arrived in ED. ag3 05:49 Hammad Murrieta MD is Attending Physician. sp4 05:53 Arm band placed on. as6 05:56 Triage completed. as6 05:56 Bed in low position. Call light in reach. Side rails up X 1. as6 06:32 CBC with Diff Sent. nw1 06:32 CMP Sent. nw1 06:32 Lipase Sent. nw1 06:32 Urinalysis w/ reflexes Sent. nw1 06:33 Provided Education on: POC. Pulse ox on. NIBP on. Door closed. Noise minimized. nw1 06:33 No provider procedures requiring assistance completed. Inserted saline lock: 20 gauge nw1 in left antecubital area, using aseptic technique. Blood collected. 07:02 Juan Chambers, SILVIA is Primary Nurse. rs5 07:15 Attending Physician role handed off by Hammad Murrieta MD zhang 07:15 Jayesh Agarwal MD is Attending Physician. zhang 08:02 CT Abd/Pelvis - IV Contrast Only In Process Unspecified. EDMS 08:25 IV discontinued, intact, bleeding controlled, No redness/swelling at site. Pressure rs5 dressing applied. 08:27 Raul Cuellar MD is Hospitalizing Provider. zhang Administered Medications: 06:32 Drug: NS 0.9% IV 1000 ml IV at 1 bolus Per protocol; 1000 mL bolus Route: IV; Rate: 1 nw1 bolus; Site: left antecubital; 06:47 Drug: morphine IVP or IV 8 mg IVP once over 4 mins Route: IVP; Infused Over: 4 mins; nw1 Site: left antecubital; 07:30 Follow up: Response: No adverse reaction; Pain is decreased rs5 06:47 Drug: Ondansetron IVP 8 mg IVP once; over 2 minutes Route: IVP; Site: left antecubital; nw1 07:30 Follow up: Response: No adverse reaction; Nausea is decreased rs5 06:47 Drug: NS 0.9% IV 1000 ml IV at 1 bolus Per protocol; 1000 mL bolus Route: IV; Rate: 1 nw1 bolus; Site: left antecubital; 07:30 Follow up: Response: No adverse reaction rs5 06:48 Drug: Solu-CORTEF IVP 100 mg IVP once Route: IVP; Site: left antecubital; nw1 07:30 Follow up: Response: No adverse reaction rs5 07:42 Drug: NS 0.9% IV 1000 ml IV at 1 bolus Per protocol; 1000 mL bolus Route: IV; Rate: 1 rs5 bolus; Site: left antecubital; 08:01 Follow up: Response: No adverse reaction rs5 07:44 Drug: Promethazine IVP 12.5 mg IVP once Route: IVP; Site: left antecubital; rs5 08:00 Follow up: Response: No adverse reaction rs5 08:40 Drug: Promethazine IVP 12.5 mg IVP once Route: IVP; Site: left antecubital; rs5 09:00 Follow up: Response: No adverse reaction rs5 08:40 Drug: Rocephin IV 1 grams IV at per protocol once; Given slow IV push per pharmacy rs5 instructions Route: IV; Rate: per protocol; Site: left antecubital; 09:01 Follow up: Response: No adverse reaction rs5 Medication: 05:56 VIS not applicable for this client. as6 Outcome: 08:25 Patient left the ED. rs5 08:25 Discharged to home ambulatory, 08:25 Condition: stable 08:25 Discharge instructions given to patient, Instructed on discharge instructions, follow up and referral plans. medication usage, Demonstrated understanding of instructions, follow-up care, medications, Prescriptions given X 2, 08:31 Decision to Hospitalize by Provider. zhang Signatures: Dispatcher [employer] EDJayesh Malin MD MD cha Calderon, Audri, RN RN aa5 Olivia Lomeli ag3 Colin Jimenez RN RN as6 Juan Chambers RN RN rs5 Hammad Murrieta MD MD sp4 Josefa Maldonado RN RN nw1 Corrections: (The following items were deleted from the chart) : 13:50 IV discontinued, intact, bleeding controlled, No redness/swelling at site. rs5 Pressure dressing applied, rs5 : 13:54 Patient left the ED. aa5 rs5 : 13:50 Discharged to home ambulatory, rs5 rs5 : 13:50 Condition: stable rs5 rs5 : 13:50 Discharge instructions given to patient, Instructed on discharge instructions, rs5 follow up and referral plans. medication usage, Demonstrated understanding of instructions, follow-up care, medications, Prescriptions given X 2, rs5
--- NOTE | 2023-08-04 08:32 | EDPHYS ---
Physician Documentation [facility] Name: Sadia Mcpherson Age: 52 yrs Sex: Female : 1970 Arrival Date: 08/04/2023 Time: 05:40 Bed 5 Private MD: ED Physician Jayesh Agarwal HPI: 08/04 06:10 This 52 yrs old Female presents to ER via Wheelchair with complaints of sp4 Abdominal Pain. 06:17 This is 52-year-old female with history of diabetes type 2, poorly controlled, sp4 depression, hypercholesterolemia, hypertension, hypothyroidism. Patient presents with acute onset left upper abdominal pain starting at 10 PM yesterday associated with multiple episodes of vomiting. Pain is relentless and worsening. Similar episode in June 2023 associated with acute pancreatitis. Last blood sugar checked yesterday was 241. . 06:26 Patient has history of recurrent pancreatitis, type 2 diabetes mellitus, sp4 hypothyroidism, depression, chest pain. Also history of adrenal insufficiency, last admission was here on 06/22/2022 for chest pain. Patient's medications include aspirin, estradiol, levothyroxine, metformin, simvastatin, tramadol, trazodone, carvedilol, clonazepam, insulin glargine, quetiapine, hydrocodone as needed, hydrocortisone or Cortef 20 mg p.o. 3 times daily. . 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 - Social history:: Smoking status: Patient denies any tobacco usage or history of. - Family history:: not pertinent. ROS: 06:17 Constitutional: Negative for fever, chills, and weight loss, Abdomen/GI: Positive upper sp4 abdominal pain, positive nausea vomiting, negative constipation 06:17 All other systems are negative, Exam: 06:17 Constitutional: This is a well developed, well nourished patient who is awake, alert, sp4 uncomfortable appearing female dry heaving on exam.. Head/Face: Normocephalic, atraumatic. Eyes: Pupils equal round and reactive to light, extra-ocular motions intact. Lids and lashes normal. Conjunctiva and sclera are not injected. Cornea within normal limits. Periorbital areas with no swelling, redness, or edema. ENT: Nares patent. No nasal discharge, no septal abnormalities noted. Tympanic membranes are normal and external auditory canals are clear. Oropharynx with no redness, swelling, or masses, exudates, or evidence of obstruction, uvula midline. Mucous membranes moist. Neck: Trachea midline, no thyromegaly or masses palpated, and no cervical lymphadenopathy. Supple, full range of motion without nuchal rigidity, or vertebral point tenderness. Chest/axilla: Normal chest wall appearance and motion. Nontender with no deformity. No lesions are appreciated. Cardiovascular: Regular rate and rhythm with a normal S1 and S2. No gallops, murmurs, or rubs. Normal PMI, no JVD. No pulse deficits. Respiratory: Lungs have equal breath sounds bilaterally, clear to auscultation and percussion. No rales, rhonchi or wheezes noted. No increased work of breathing, no retractions or nasal flaring. Abdomen/GI: Soft, positive upper abdominal tenderness with positive rebound. No rigidity or guarding, no distention Back: No spinal tenderness. No costovertebral tenderness. Skin: Warm, dry with normal turgor. Normal color with no rashes, no lesions, and no evidence of cellulitis. MS/ Extremity: Pulses equal, no cyanosis. Neurovascular intact. Full, normal range of motion. Neuro: Awake and alert, GCS 15, oriented to person, place, time, and situation. Cranial nerves II-XII grossly intact. Motor strength 5/5 in all extremities. Sensory grossly intact. Psych: Awake, alert, with orientation to person, place and time. Behavior, mood, and affect are within normal limits Vital Signs: 05:53 BP 146 / 79; Pulse 92; Resp 20 S; Temp 97.7(TE); Pulse Ox 98% on R/A; Weight 90.72 kg as6 (R); Height 5 ft. 4 in. (R); Pain 8/10; 07:20 BP 140 / 75; Pulse 88; Resp 18; Pulse Ox 98% on R/A; rs5 08:15 BP 142 / 70; Pulse 80; Resp 17; Pulse Ox 99% on R/A; rs5 05:53 Body Mass Index 34.33 (90.72 kg, 162.56 cm) as6 05:53 Pain Scale: Adult as6 MDM: 05:51 Patient medically screened. sp4 06:50 Differential Diagnosis altered mental status, sepsis, flu. Data reviewed: vital signs, sp4 nurses notes, old medical records, lab test result(s), radiologic studies, CT scan. Consideration of Admission/Observation Escalation of care including admission/observation considered. Special discussion:. ED course: Will have to sign outpatient care at her next provider. . 07:08 Transition of care: After a detail discussion of the patient's case, care is sp4 transferred to Jayesh Agarwal MD. 08/04 05:51 Order name: CBC with Diff; Complete Time: 07:16 sp4 08/04 05:51 Order name: CMP; Complete Time: 07:16 sp4 08/04 05:51 Order name: Lipase; Complete Time: 07:16 sp4 08/04 05:51 Order name: Urinalysis w/ reflexes; Complete Time: 07:16 sp4 08/04 08:32 Order name: Urine Culture [facility] 08/04 09:17 Order name: Urinalysis w/ reflexes EDSD 08/04 09:17 Order name: Basic Metabolic Panel EDSD 08/04 09:17 Order name: Basic Metabolic Panel EDSD 08/04 09:17 Order name: Basic Metabolic Panel EDMS 08/04 09:17 Order name: Basic Metabolic Panel EDMS 08/04 09:17 Order name: CBC with Automated Diff EDMS 08/04 09:17 Order name: CBC with Automated Diff EDMS 08/04 09:17 Order name: CBC with Automated Diff EDMS 08/04 09:17 Order name: CBC with Automated Diff EDMS 08/04 09:17 Order name: Comprehensive Metabolic Panel EDMS 08/04 09:17 Order name: Comprehensive Metabolic Panel EDMS 08/04 09:17 Order name: Comprehensive Metabolic Panel EDMS 08/04 09:17 Order name: Comprehensive Metabolic Panel EDMS 08/04 09:17 Order name: Magnesium EDMS 08/04 09:17 Order name: Magnesium EDMS 08/04 09:17 Order name: Magnesium EDMS 08/04 09:17 Order name: Magnesium EDMS 08/04 09:17 Order name: Phosphorus EDMS 08/04 09:17 Order name: Phosphorus EDMS 08/04 09:17 Order name: Phosphorus EDMS 08/04 09:17 Order name: Phosphorus EDMS 08/04 13:35 Order name: Glucose, Ancillary Testing EDMS 08/04 06:16 Order name: CT Abd/Pelvis - IV Contrast Only; Complete Time: 08:32 sp4 08/04 05:51 Order name: IV Saline Lock; Complete Time: 06:32 sp4 08/04 05:51 Order name: Labs collected and sent; Complete Time: 06:32 sp4 Administered Medications: 06:32 Drug: NS 0.9% IV 1000 ml IV at 1 bolus Per protocol; 1000 mL bolus Route: IV; Rate: 1 nw1 bolus; Site: left antecubital; 06:47 Drug: morphine IVP or IV 8 mg IVP once over 4 mins Route: IVP; Infused Over: 4 mins; nw1 Site: left antecubital; 07:30 Follow up: Response: No adverse reaction; Pain is decreased rs5 06:47 Drug: Ondansetron IVP 8 mg IVP once; over 2 minutes Route: IVP; Site: left antecubital; nw1 07:30 Follow up: Response: No adverse reaction; Nausea is decreased rs5 06:47 Drug: NS 0.9% IV 1000 ml IV at 1 bolus Per protocol; 1000 mL bolus Route: IV; Rate: 1 nw1 bolus; Site: left antecubital; 07:30 Follow up: Response: No adverse reaction rs5 06:48 Drug: Solu-CORTEF IVP 100 mg IVP once Route: IVP; Site: left antecubital; nw1 07:30 Follow up: Response: No adverse reaction rs5 07:42 Drug: NS 0.9% IV 1000 ml IV at 1 bolus Per protocol; 1000 mL bolus Route: IV; Rate: 1 rs5 bolus; Site: left antecubital; 08:01 Follow up: Response: No adverse reaction rs5 07:44 Drug: Promethazine IVP 12.5 mg IVP once Route: IVP; Site: left antecubital; rs5 08:00 Follow up: Response: No adverse reaction rs5 08:40 Drug: Promethazine IVP 12.5 mg IVP once Route: IVP; Site: left antecubital; rs5 09:00 Follow up: Response: No adverse reaction rs5 08:40 Drug: Rocephin IV 1 grams IV at per protocol once; Given slow IV push per pharmacy rs5 instructions Route: IV; Rate: per protocol; Site: left antecubital; 09:01 Follow up: Response: No adverse reaction rs5 Disposition Summary: 08/04/23 08:31 Hospitalization Ordered Notes: Hospitalization Status: Observation zhang Provider: Raul Cuellar cha Location: Telemetry/MedSurg (observation) zhang Condition: Stable zhang Problem: new zhang Symptoms: have improved zhang Bed/Room Type: Standard [facility] Room Assignment: 219(08/04/23 13:10) bd Diagnosis - Vomiting - intractable zhang - Other specified disorders of adrenal gland - adrenal insufficency zhang - Type 1 diabetes mellitus with hyperglycemia zhang - Epigastric abdominal tenderness zhang - UTI/ Urinary tract infection, site not specified zhang Forms: - Medication Reconciliation Form zhang - SBAR form zhang - Leadership Thank You Letter zhang Signatures: Dispatcher [employer] EDCely Flores Corey, MD MD cha Slawson, Ashby, RN RN as6 Juan Chambers RN RN rs5 Hammad Murrieta MD MD sp4 Josefa Maldonado RN RN nw1 Corrections: (The following items were deleted from the chart) 13:10 08:31 [facility] bd
[2023-08-04] MEDS ORDERED: CEFTRIAXONE 1000 MG/VIAL ONE (08:54)
[2023-08-04] MEDS ORDERED: ACETAMINOPHEN 500 MG TAB PO PRN ×2 (09:12→15:28)
--- NOTE | 2023-08-04 09:17 | P.HP ---
Certification for Inpatient Patient admitted to: Inpatient With expected LOS: <2 Midnights Practitioner: I am a practitioner with admitting privileges, knowledge of patient current condition, hospital course, and medical plan of care. Services: Services provided to patient in accordance with Admission requirements found in Title 42 Section 412.3 of the Code of Federal Regulations Patient History Date of Service: 08/04/23 Primary Care Provider: Dr.Obeid Duke Reason for admission: Abdominal pain nausea vomiting History of Present Illness: Sadia Fernandez is a 52-year-old female with a history of diabetes type 2 poorly controlled, depression, hyperlipidemia, hypertension, hypothyroidism. Patient came to the ER via wheelchair with complaints of abdominal pain. Patient reported onset of left upper abdominal pain stating at 9 PM yesterday, associated with episodes of nausea and vomiting. Patient denies chest pain, shortness of breath, palpitation. Patient reports similar episode in in this June 2023 associated with acute pancreatitis. Patient denies fever chills or weight loss. Patient report constant abdominal pain rating 7 out of 10, positive for nausea vomiting and. Denies constipation. ED course blood pressure 146/79, pulse 92, respiration 20, temperature 97.7, pulse ox 98% on room air. Patient was given morphine 8 mg IV push and Zofran 8 mg IV push and Solu-Cortef 100 mg IV push x1 IV fluid [address] abdomen and pelvis with contrast shows mild stranding within the central mesentery of the a bdomen indicative of a mild mesenteritis. Admitting the patient with a diagnosis of vomiting intractable, other specified disorders of adrenal glandadrenal insufficiency, type 2 diabetes mellitus with hyperglycemia and epigastric abdominal tenderness. Allergies bupropion [From Wellbutrin] Allergy (Verified 08/31/20 03:04) Unknown gabapentin Allergy (Verified 08/31/20 03:04) Unknown ketorolac Allergy (Verified 08/31/20 03:04) Unknown lamotrigine [From Lamictal] Allergy (Verified 08/31/20 03:04) Unknown Sulfa (Sulfonamide Antibiotics) Allergy (Verified 08/31/20 03:04) Unknown tobramycin Allergy (Verified 08/31/20 03:04) Unknown Sulfa (Sulfonam Allergy (Uncoded 11/04/16 06:19) Unknown Sulfa (Sulfonami Allergy (Uncoded 11/11/16 15:25) Unknown Sulfa (Sulfonamide Antib Allergy (Uncoded 11/02/16 22:14) Unknown Home Medications: Levothyroxine Sodium 137 mcg PO DAILY 08/31/20 Tramadol HCl [Ultram] 50 mg PO Q6H PRN #30 tablet 08/31/20 Trazodone HCl 1 tab PO BEDTIME 08/31/20 carvediloL [Carvedilol] 12.5 tab PO BID 08/31/20 clonazePAM [Clonazepam] 0.5 mg PO BID 08/31/20 Insulin Glargine,Hum.rec.anlog [Lantus Solostar] 20 units SQ DAILY 06/22/22 Quetiapine [Seroquel*] 1 tab PO BEDTIME 06/22/22 Aspirin [Aspirin EC 81 MG] 81 mg PO BEDTIME 08/04/23 predniSONE [Deltasone] 5 mg PO DAILY 08/04/23 - Past Medical/Surgical History Diabetic: Yes -: depression -: HTN -: Hypothyroidism -: Kidney stones -: kidney stone surgery - Family History Father -: Heart disease Mother -: Heart disease - Social History Alcohol use: Yes CD- Drugs: No Caffeine use: No Review of Systems 10-point ROS is otherwise unremarkable Physical Examination - Physical Exam General: Alert, Oriented x3 HEENT: Atraumatic, Normocephalic, PERRLA Neck: 2+ carotid pulse no bruit Respiratory: Clear to auscultation bilaterally, Normal air movement Cardiovascular: No edema, Normal pulses, Regular rate/rhythm, Normal S1 S2 Capillary refill: <2 Seconds Gastrointestinal: Normal bowel sounds, Hypoactive, Soft and benign, Tenderness Musculoskeletal: No clubbing, No swelling Integumentary: No rashes, No breakdown Neurological: Normal gait, Normal speech, Normal strength at 5/5 x4 extr - Studies Laboratory Data (last 24 hrs) 08/04/23 08/04/23 06:30 06:30 WBC 7.00 Hgb 15.4 H Hct 44.9 Plt Count 228 Sodium 137 Potassium 3.9 BUN 18 Creatinine 0.97 Glucose 200 H Total Bilirubin 0.5 AST 28 ALT 40 Alkaline Phosphatase 96 Lipase 38 Assessment and Plan - Plan Assessment and plan Abdominal pain, epigastric tenderness Vomiting Mild mesenteritis Other disorders of adrenal gland insufficiency Type 2 diabetes with hyperglycemia Hypertension Hypothyroid Depression Assessment and plan Abdominal pain, epigastric tenderness Nausea and vomiting Mild mesenteritis Other disorders of adrenal gland insufficiency * Acute, patient came in with severe abdominal pain and nausea likely caused by stranding within the central mesentery of the abdomen indicative of a mild mesenteritis. * admitting the patient * Start IV fluid, IV antibiotics, analgesics as needed, antiemetic as needed * To light monitoring replace electrolytes as per hospital protocol * Surgical consultation, Dr. Dwyer Insulin dependent type 2 diabetes mellitus with hyperglycemia * Chronic, uncontrolled, on Lantus 20 units subcu daily * With a recent hyperglycemia as per the patient, no hyperglycemic episodes * Before meals and at bedtime blood sugar chest check with low-dose sliding scale of regular insulin * Hypoglycemic precautions * Check A1c in the morning Hypertension * Chronic controlled * Resume home medications Hypothyroidism * Chronic, controlled * Resume the current home medication Depression * Chronic, controlled * Resume the current home medication CODE STATUS Full code Diet Cardiac diabetic DVT prophylaxis Lovenox Discharge Plan: Home Plan to discharge in: 48 Hours - Advance Directives Does patient have a Living Will: No Does patient have a Durable POA for Healthcare: No - Code Status/Comfort Care Code Status Assessed: Yes (Full code) Code Status: Full Code Critical Care: No Time Spent Managing Pts Care (In Minutes): 55 (Minutes)
[2023-08-04] MEDS: NA CHLORIDE 0.9% 1,000 ML IV SCH ×3 (10:00→20:00)
[2023-08-04] MEDS ORDERED: MORPHINE 4 MG/ML SYR IV ONE (12:20)
[2023-08-04] MEDS ORDERED: INFLUENZA VACCINE (for 6+ mo) 0.5 ML DOSE IMVAC ONE (14:00)
[2023-08-04] MEDS ORDERED: MORPHINE 2 MG/ML SYR IV PRN (15:28)
[2023-08-04] MEDS ORDERED: ONDANSETRON 4 MG/2 ML VIAL IV PRN (15:28)
[2023-08-04] MEDS: INSULIN REGULAR (HUMAN) 100 UNIT/ML SQ SCH ×3 (16:30→21:00)
[2023-08-04] MEDS: MORPHINE 4 MG/ML SYR IV PRN (17:19)
[2023-08-04] MEDS: ONDANSETRON 4 MG/2 ML VIAL IV PRN (17:19)
[2023-08-04] MEDS: PIPER TAZO 3.375 GM in NA CHLORIDE 0.9% 100 ML IV SCH (17:20)
[2023-08-04] MEDS: ENOXAPARIN 40 MG/0.4 ML SQ SCH (17:45)
--- NOTE | 2023-08-04 18:20 | RAD REPORT ---
EXAM DESCRIPTION: US - Abdomen Exam Limited - 08/04/2023 2:12 pm CLINICAL HISTORY: R/o cholecystistis, cholelithiasis COMPARISON: Abdomen Pelvis W Contrast dated 08/04/2023 TECHNIQUE: Sonographic grayscale and color flow images of the right upper abdominal quadrant were obtained. FINDINGS: The gallbladder demonstrates no gallstones. No pericholecystic fluid or gallbladder wall t hickening. The common bile duct is normal measuring 5 mm. The liver demonstrates no findings of intrahepatic biliary dilatation. IMPRESSION: Unremarkable examination.
--- NOTE | 2023-08-04 18:57 | CON ---
Date of Consultation: 08/04/2023 Diagnosis: Epigastric right upper quadrant pain and left upper quadrant pain. History Of Present Illness: This is a case of a 52-year-old patient who comes to us with nausea, vom iting, and upper abdominal pain. Not too long ago, she was diagnosed with pancreatitis out of state and recently in this area too, although at this moment, the lipase and amylase are not elevated. She states she has nausea, vomiting. She still has her appendix. She still has a gallbladder. She has no surgeries in the abdomen. She stated the pain is mainly in the epigastric, left upper and right upper not in the lower abdomen. Denies any dysuria, hematuria, hematochezia, melena. Denies any rec ent traveling out of the country. Denies any family member sick at home. Review of Systems: 10 points are otherwise unremarkable. Allergies: INCLUDE GABAPENTIN, KETORALAC, LAMOTRIGINE, BUPROPION, SULFA, TOBRAMYCIN. Past Medical History: Include adrenal insufficiency, depression, hypercholesterolemia, diabetes, hyp ertension, hypothyroidism. Past Surgical History: Include lithotripsy of kidney. Social History: No smoking, no drinking. Physical Examination: General: Patient is awake, alert. Eyes: Pupils are equal and reactive. Anicteric. Neck: Supple. Chest: Clear. Heart: S1, S2. Abdomen: Soft and depressible. No guarding or rebound. No peritoneal signs. Mild epigastric tende rness. Patient states she feels better compared with last night. Extremities: Good capillary refill. Laboratory Data: Blood work shows WBC count of 7, hemoglobin of 15. Potassium 3.9, glucose 200. Li pase 38, no triglyceride found at this moment. CAT scan of the abdomen and pelvis interpreted by Dr. Sanabria has some nonspecific mesenteric inflammation. In the central mesentery, known. No mention about the gallbladder. Patient also has a small umbilical hernia. Assessment: Abdominal pain of unknown origin. I believe this patient should have an ultrasound of t he gallbladder. If negative, proceed with a HIDA scan. She understand also the options of a hernia repair. In the meantime, also she might benefit from a Gastroenterology consult. YAEL/DUNCAN Voice ID: [id number] Report ID: [id number]
[2023-08-04] MEDS: FAMOTIDINE 20 MG/2 ML VIAL IV SCH (20:25)
[2023-08-04] MEDS ORDERED: TRAMADOL HCL 50 MG TAB PO PRN (20:55)
[2023-08-04] MEDS: TRAZODONE 50 MG TABLET PO SCH (22:11)
[2023-08-04] MEDS: QUETIAPINE 100MG TAB PO SCH (22:11)
[2023-08-04] MEDS: clonazePAM 0.5 MG TAB PO SCH (23:34)
[2023-08-05] MEDS: PIPER TAZO 3.375 GM in NA CHLORIDE 0.9% 100 ML IV SCH ×3 (00:38→16:25)
[2023-08-05] MEDS: NA CHLORIDE 0.9% 1,000 ML IV SCH ×3 (00:40→21:28)
[2023-08-05 03:24] LABS: Absolute Lymphocytes (CBC) 0.9 K/uL (0.7-4.9); Hematocrit 35.6 % (36.0-45.0); Lymphocytes % 12.7 % (15.3-44.8); MCV 86.6 fL (80-100); Platelets 184 thou/uL (152-406); RBC Red Blood Cell Count 4.11 M/uL (3.86-4.86)
[2023-08-05 03:38] LABS: Albumin 2.6 g/dL (3.4-5.0); Bilirubin Total 0.3 mg/dL (0.2-1.0); Potassium 3.3 mEq/L (3.5-5.1); Protein, Total 5.9 g/dL (6.4-8.2)
[2023-08-05] MEDS: INSULIN REGULAR (HUMAN) 100 UNIT/ML SQ SCH ×4 (07:30→21:00)
[2023-08-05] MEDS ORDERED: ENOXAPARIN 40 MG/0.4 ML SQ SCH (09:00)
[2023-08-05] MEDS: carvediloL 12.5 MG TAB PO SCH ×3 (09:10→22:32)
[2023-08-05] MEDS: clonazePAM 0.5 MG TAB PO SCH ×2 (09:15→22:32)
[2023-08-05] MEDS: ENOXAPARIN 40 MG/0.4 ML SQ SCH (09:16)
[2023-08-05] MEDS: FAMOTIDINE 20 MG/2 ML VIAL IV SCH ×2 (09:17→21:34)
[2023-08-05] MEDS: KCL 20 MEQ/100 mL IVPB 20 MEQ/100 ML BAG IV SCH ×2 (09:17→11:21)
[2023-08-05] MEDS: MORPHINE 4 MG/ML SYR IV PRN ×3 (09:30→20:44)
[2023-08-05] MEDS ORDERED: DIPHENHYDRAMINE 25 MG TAB/CAP PO PRN (11:25)
[2023-08-05] MEDS ORDERED: DIPHENHYDRAMINE 50 MG/ML VIAL IV PRN (11:42)
--- NOTE | 2023-08-05 13:32 | P.PN ---
Subjective Date of Service: 08/05/23 Primary Care Provider: Dr.Obeid Duke Chief Complaint: Abdominal pain nausea vomiting Subjective: No new changes, Improving Date of admission: 08/04/23 Primary Care Provider: Dr.Obeid Carter Reason for admission: Abdominal pain nausea vomiting History of Present Illness: Sadia Fernandez is a 52-year-old female with a history of diabetes type 2 poorly controlled, depression, hyperlipidemia, hypertension, hypothyroidism. Patient came to the ER via wheelchair with complaints of abdominal pain. Patient reported onset of left upper abdominal pain stating at 9 PM yesterday, associated with episodes of nausea and vomiting. Patient denies chest pain, shortness of breath, palpitation. Patient reports similar episode in in this June 2023 associated with acute pancreatitis. Patient denies fever chills or weight loss. Patient report constant abdominal pain rating 7 out of 10, positive for nausea vomiting and. Denies constipation. ED course blood pressure 146/79, pulse 92, respiration 20, temperature 97.7, pulse ox 98% on room air. Patient was given morphine 8 mg IV push and Zofran 8 mg IV push and Solu-Cortef 100 mg IV push x1 IV fluid [address] abdomen and pelvis with contrast shows mild stranding within the central mesentery of the abdomen indicative of a mild mesenteritis. Admitting the patient with a diagnosis of vomiting intractable, other specified disorders of adrenal glandadrenal insufficiency, type 2 diabetes mellitus with hyperglycemia and epigastric abdominal tenderness. 08/05/2023 Patient is alert and oriented x3 Complaining of feeling hot redness of the face Patient is scheduled for HIDA scan today N.p.o. at this time Abdominal pain is getting better on analgesics as needed Hypokalemia, receiving potassium IV, patient is reporting pain in the IV site <Moris Gramajo - Last Filed: 08/05/23 13:36> Date of Service: 08/05/23 <Raul Cuellar - Last Filed: 08/05/23 17:15> Review of Systems 10-point ROS is otherwise unremarkable <Moris Gramajo - Last Filed: 08/05/23 13:36> Physical Examination - Vital Signs Temperature: 96.9 F Blood Pressure: 122/65 Pulse: 77 Respirations: 16 Pulse Ox (%): 92 <Moris Gramajo - Last Filed: 08/05/23 13:36> Assessment And Plan - Plan Physical Examination - Physical Exam General: Alert, Oriented x3 HEENT: Atraumatic, Normocephalic, PERRLA Neck: 2+ carotid pulse no bruit Respiratory: Clear to auscultation bilaterally, Normal air movement Cardiovascular: No edema, Normal pulses, Regular rate/rhythm, Normal S1 S2 Capillary refill: <2 Seconds Gastrointestinal: Normal bowel sounds, Hypoactive, Soft and benign, Tenderness Musculoskeletal: No clubbing, No swelling Integumentary: No rashes, No breakdown Neurological: Normal gait, Normal speech, Normal strength at 5/5 x4 extremities Assessment and plan Abdominal pain, epigastric tenderness likely caused by stranding within the central mesentery of the abdomen indicative of a mild mesenteritis. Nausea and vomiting Mild mesenteritis Other disorders of adrenal gland insufficiency * Acute, improving, patient is requiring analgesics every 4 hours * scheduled for HIDA scan today * Continue n.p.o., IV fluid, IV antibiotics, analgesics as needed, antiemetic as needed * Electrolyte monitoring replace electrolytes as per hospital protocol * Surgical consultation, Dr. Dwyer Insulin dependent type 2 diabetes mellitus with hyperglycemia * Chronic, uncontrolled, on Lantus 20 units subcu daily * With a recent hyperglycemia as per the patient, no hyperglycemic episodes * Before meals and at bedtime blood sugar chest check with low-dose sliding scale of regular insulin * Hypoglycemic precautions Hypertension * Chronic controlled * Resume home medications Hypothyroidism * Chronic, controlled * Resume the current home medication Depression * Chronic, controlled * Resume the current home medication CODE STATUS Full code Diet Cardiac diabetic DVT prophylaxis Lovenox Discharge Plan: Home Plan to discharge in: 24 Hours - Code Status/Comfort Care Code Status Assessed: Yes (Full code) Code Status: Full Code Critical Care: No Time Spent Managing PTS Care (In Minutes): 35 (Minutes) <Moris Gramajo - Last Filed: 08/05/23 13:36> Physician Review: Patient Assessed, Agree with Above Assessment and Plan <Raul Cuellar - Last Filed: 08/05/23 17:15>
[2023-08-05] MEDS: ONDANSETRON 4 MG/2 ML VIAL IV PRN (16:26)
[2023-08-05] MEDS: TRAZODONE 50 MG TABLET PO SCH (21:35)
[2023-08-05] MEDS: QUETIAPINE 100MG TAB PO SCH (21:35)
[2023-08-06] MEDS: PIPER TAZO 3.375 GM in NA CHLORIDE 0.9% 100 ML IV SCH ×3 (00:16→17:51)
[2023-08-06 03:17] LABS: Absolute Lymphocytes (CBC) 1.6 K/uL (0.7-4.9); Lymphocytes % 28.8 % (15.3-44.8); MCV 87.3 fL (80-100); MPV 8.7 fL (7.6-11.3); Platelets 188 thou/uL (152-406); RBC Red Blood Cell Count 4.12 M/uL (3.86-4.86)
[2023-08-06 03:27] LABS: Albumin 2.6 g/dL (3.4-5.0); Bilirubin Total 0.2 mg/dL (0.2-1.0); Magnesium 2.1 mg/dL (1.6-2.4); Phosphorus 3.4 mg/dL (2.5-4.9); Potassium 3.2 mEq/L (3.5-5.1); Protein, Total 5.9 g/dL (6.4-8.2)
[2023-08-06] MEDS: NA CHLORIDE 0.9% 1,000 ML IV SCH ×3 (03:34→17:51)
[2023-08-06] MEDS: INSULIN REGULAR (HUMAN) 100 UNIT/ML SQ SCH ×4 (07:30→21:00)
[2023-08-06] MEDS ORDERED: POTASSIUM CL SA 10 MEQ TAB PO ONE (07:30)
[2023-08-06] MEDS: LEVOTHYROXINE SOD 0.112 MG TAB PO SCH (07:45)
[2023-08-06] MEDS ORDERED: clonazePAM 0.5 MG TAB PO SCH (09:00)
[2023-08-06] MEDS: FAMOTIDINE 20 MG/2 ML VIAL IV SCH ×2 (09:00→21:09)
[2023-08-06] MEDS ORDERED: LEVOTHYROXINE SOD 0.1 MG TAB PO SCH (09:00)
--- NOTE | 2023-08-06 10:14 | P.PN ---
Subjective Date of Service: 08/06/23 Chief Complaint: Abdominal pain nausea vomiting Subjective: No new changes, Tolerating diet, Improving, Doing well Date of admission: 08/04/23 Primary Care Provider: Dr.Obeid Carter Reason for admission: Abdominal pain nausea vomiting History of Present Illness: Sadia Fernandez is a 52-year-old female with a history of diabetes type 2 poorly controlled, depression, hyperlipidemia, hypertension, hypothyroidism. Patient came to the ER via wheelchair with complaints of abdominal pain. Patient reported onset of left upper abdominal pain stating at 9 PM yesterday, associated with episodes of nausea and vomiting. Patient denies chest pain, shortness of breath, palpitation. Patient reports similar episode in in this June 2023 associated with acute pancreatitis. Patient denies fever chills or weight loss. Patient report constant abdominal pain rating 7 out of 10, positive for nausea vomiting and. Denies constipation. ED course blood pressure 146/79, pulse 92, respiration 20, temperature 97.7, pulse ox 98% on room air. Patient was given morphine 8 mg IV push and Zofran 8 mg IV push and Solu-Cortef 100 mg IV push x1 IV fluid [address] abdomen and pelvis with contrast shows mild stranding within the central mesentery of the abdomen indicative of a mild mesenteritis. Admitting the patient with a diagnosis of vomiting intractable, other specified disorders of adrenal glandadrenal insufficiency, type 2 diabetes mellitus with hyperglycemia and epigastric abdominal tenderness. 08/06/2023 Patient is alert and oriented x3 Reporting pain is better controlled, but still have pain on and off HIDA scan was not done, it will have to be postponed as some technical issues Patient started diet told Abdominal pain is getting better on analgesics as needed Hypokalemia, receiving potassium orally <Moris Gramajo - Last Filed: 08/06/23 16:29> Date of Service: 08/06/23 <Raul Cuellar - Last Filed: 08/06/23 18:11> Review of Systems 10-point ROS is otherwise unremarkable <Moris Gramajo - Last Filed: 08/06/23 16:29> Physical Examination - Vital Signs Temperature: 97.8 F Blood Pressure: 129/78 Pulse: 60 Respirations: 16 Pulse Ox (%): 94 <Moris Gramajo - Last Filed: 08/06/23 16:29> Assessment And Plan - Plan Physical Examination - Physical Exam General: Alert, Oriented x3 HEENT: Atraumatic, Normocephalic, PERRLA Neck: 2+ carotid pulse no bruit Respiratory: Clear to auscultation bilaterally, Normal air movement Cardiovascular: No edema, Normal pulses, Regular rate/rhythm, Normal S1 S2 Capillary refill: <2 Seconds Gastrointestinal: Normal bowel sounds, Hypoactive, Soft and benign, Tenderness Musculoskeletal: No clubbing, No swelling Integumentary: No rashes, No breakdown Neurological: Normal gait, Normal speech, Normal strength at 5/5 x4 extremities Assessment and plan Abdominal pain, epigastric tenderness likely caused by stranding within the central mesentery of the abdomen indicative of a mild mesenteritis. Nausea and vomiting Mild mesenteritis Other disorders of adrenal gland insufficiency * Acute, improving, patient is still requiring analgesics every 4 hours * HIDA scan was not performed * Diet started tolerating, IV antibiotics, analgesics as needed, antiemetic as needed * Electrolyte monitoring replace electrolytes as per hospital protocol * Dr. Dwyer informed about the HIDA scan cancellation Insulin dependent type 2 diabetes mellitus with hyperglycemia * Chronic, uncontrolled, on Lantus 20 units subcu dailycontrolled now * With a recent hyperglycemia as per the patient, no hyperglycemic episodes * Before meals and at bedtime blood sugar chest check with low-dose sliding scale of regular insulin * Hypoglycemic precautions Hypertension * Chronic controlled on Coreg 12.5 p.o. twice daily * Resume home medications Hypothyroidism * Chronic, controlled on levothyroxine 112 mcs p.o. daily * Resume the current home medication Depression * Chronic, controlled * Resume the current home medication CODE STATUS Full code Diet Cardiac diabetic DVT prophylaxis Lovenox Discharge Plan: Home Plan to discharge in: 24 Hours - Code Status/Comfort Care Code Status Assessed: Yes (Full code) Code Status: Full Code Physician Review: Patient Assessed, Agree with Above Assessment and Plan Critical Care: No Time Spent Managing PTS Care (In Minutes): 35 (Minutes) <Moris Gramajo - Last Filed: 08/06/23 16:29> Physician Review: Patient Assessed, Agree with Above Assessment and Plan Physician Review Additional Text: Her abdominal pain is improving. Spoke with Dr. Dwyer, who requested a repeat CT scan. Since mesenteritis does not look like it has worsened, he has cleared her to be discharged from a surgical standpoint with outpatient HIDA scan. Given bladder thickening, will repeat urinalysis to evaluate for urinary tract infection. Advance diet as tolerated. <Raul Cuellar - Last Filed: 08/06/23 18:11>
[2023-08-06] MEDS: ENOXAPARIN 40 MG/0.4 ML SQ SCH (10:24)
[2023-08-06] MEDS: predniSONE 5 MG TAB PO SCH (10:24)
[2023-08-06] MEDS: carvediloL 12.5 MG TAB PO SCH ×2 (10:24→17:51)
[2023-08-06] MEDS: LEVOTHYROXINE SOD 0.025 MG TAB PO SCH (10:24)
[2023-08-06] MEDS: clonazePAM 0.5 MG TAB PO SCH ×2 (10:24→21:00)
--- NOTE | 2023-08-06 10:43 | PN ---
Date of Progress Note: 08/06/2023 Reason For Service: Mesenteric inflammation. Subjective: This is a case of a 52-year-old patient, comes to us with abdominal pain, epigastric are a and some mesenteric inflammation of unknown origin. The patient has pancreatitis, not too long ago , not related to food that she can remember, although she was on weight loss medication long time ago , not recently. Today, she feels better. No nausea, vomiting. No fever. She is tolerating full li quid diet. Abdomen soft and depressible. No guarding or rebound. Plan: From the surgical standpoint, since I am not sure what is the etiology of that mesenteric infl ammation, we have to know if it is improving or getting worse. Based on that one, we may just contin ue with further workup. We will just do this as an outpatient now. The patient is not completely wi thout pain. She has pain. She feels like deep inside, which corresponds to the CAT scan findings, s o I suggested the primary doctor to repeat the CT scan and that will give us an evaluation for the la st 72 hours and if we see that it is the same or improved, then we can advance diet and treat this as an outpatient. If it goes worse, then we will proceed accordingly. The patient has no peritonitis at this time. She was advised if she goes home the importance of following up in my office. Discuss ed with her the ultrasound negative that we had yesterday, and a HIDA scan may be done as an outpatie nt. YAEL/DUNCAN Voice ID: [id number] Report ID: [id number]
--- NOTE | 2023-08-06 14:53 | RAD REPORT ---
EXAM DESCRIPTION: CT - Abdomen Pelvis Wo Contrast - 08/06/2023 2:02 pm CLINICAL HISTORY: Abdominal pain COMPARISON: August 04, 2023 TECHNIQUE: Computed axial tomography of the abdomen and pelvis was obtained. IV and oral contrast we re not requested. All CT scans are performed using dose optimization technique as appropriate and may include automated exposure control or mA/KV adjustment according to patient size. FINDINGS: The evaluation of solid organs, vessels and bowel is limited secondary to the lack of con trast administration. Minimal pleural effusions The liver, spleen, pancreas, adrenals and right kidney appear grossly normal Left renal calculi and small renal cysts are unchanged. The appendix is normal. There is no evidence of diverticulitis. Mild stranding is present within central mesentery of the abdomen without significant change Bladder wall appears mildly thickened IMPRESSION: Mild stranding is present within central mesentery of the abdomen indicative of a mild mesenteritis. Minimal pleurally effusions Bladder wall appears mildly thickened. This may be secondary to incomplete distention or cystitis
[2023-08-06 15:53] VITALS: BMI 37.4
[2023-08-06] MEDS: HYDROCODONE/APAP 5/325 MG TAB PO PRN (16:39)
[2023-08-06 18:58] LABS: Specific Gravity 1.006 (1.005-1.030); Urine Bilirubin NEGATIVE (Negative); Urine Blood Negative (Negative); Urine Clarity Clear (Clear); Urine Color Colorless (Yellow); Urine Glucose NEGATIVE (Negative); Urine Protein NEGATIVE (Negative); Urine Urobilinogen Normal (Normal)
[2023-08-06] MEDS ORDERED: QUETIAPINE 100MG TAB PO SCH (21:00)
[2023-08-06] MEDS: QUETIAPINE 100MG TAB PO SCH (21:08)
[2023-08-06] MEDS: ASPIRIN EC 81 MG TAB PO SCH (21:09)
[2023-08-06] MEDS: TRAZODONE 50 MG TABLET PO SCH (21:09)
[2023-08-06] MEDS ORDERED: MORPHINE 2 MG/ML SYR IV ONE (21:10)
[2023-08-07] MEDS: PIPER TAZO 3.375 GM in NA CHLORIDE 0.9% 100 ML IV SCH ×3 (02:01→16:22)
[2023-08-07 03:14] LABS: Magnesium 1.9 mg/dL (1.6-2.4); Phosphorus 3.4 mg/dL (2.5-4.9); Potassium 3.5 mEq/L (3.5-5.1)
[2023-08-07] MEDS: NA CHLORIDE 0.9% 1,000 ML IV SCH ×4 (03:28→16:21)
[2023-08-07 06:01] LABS: C.diff Antigen/Toxin Ag pos : Tox neg (NEG : NEG)
[2023-08-07] MEDS: LEVOTHYROXINE SOD 0.025 MG TAB PO SCH (06:26)
[2023-08-07] MEDS: LEVOTHYROXINE SOD 0.112 MG TAB PO SCH (06:26)
[2023-08-07] MEDS: INSULIN REGULAR (HUMAN) 100 UNIT/ML SQ SCH ×4 (07:30→21:00)
--- NOTE | 2023-08-07 08:33 | P.CNS ---
Date of Consult: 08/07/23 Reason for Consult: C.difficile Primary Care Provider: Dr.Obeid Duke Chief Complaint: Abdominal pain nausea vomiting History of Present Illness: Patient is a 52 yo female with a past medical history of diabetes mellitus type II, hypothyroidism, hypertension, hyperlipidemia who presented to the ED with complaints of abdominal pain and diarrhea. CT abdomen pelvis with contrast showing "Mild stranding is present within central mesentery of the abdomen indicative of a mild mesenteritis. Minimal pleurally effusions. Bladder wall appears mildly thickened. This may be secondary to incomplete distention or cystitis." Patient was found to have C.difficile, infectious disease was consulted. Allergies bupropion [From Wellbutrin] Allergy (Verified 08/31/20 03:04) Unknown gabapentin Allergy (Verified 08/31/20 03:04) Unknown ketorolac Allergy (Verified 08/31/20 03:04) Unknown lamotrigine [From Lamictal] Allergy (Verified 08/31/20 03:04) Unknown Sulfa (Sulfonamide Antibiotics) Allergy (Verified 08/31/20 03:04) Unknown tobramycin Allergy (Verified 08/31/20 03:04) Unknown Sulfa (Sulfonam Allergy (Uncoded 11/04/16 06:19) Unknown Sulfa (Sulfonami Allergy (Uncoded 11/11/16 15:25) Unknown Sulfa (Sulfonamide Antib Allergy (Uncoded 11/02/16 22:14) Unknown Home medications list reviewed: Yes Home Medications: Levothyroxine Sodium 137 mcg PO DAILY 08/31/20 Tramadol HCl [Ultram] 50 mg PO Q6H PRN #30 tablet 08/31/20 Trazodone HCl 1 tab PO BEDTIME 08/31/20 carvediloL [Carvedilol] 12.5 mg PO BID 08/31/20 clonazePAM [Clonazepam] 0.25 mg PO BID 08/31/20 Insulin Glargine,Hum.rec.anlog [Lantus Solostar] 20 units SQ DAILY 06/22/22 Quetiapine [Seroquel*] 1 tab PO BEDTIME 06/22/22 Aspirin [Aspirin EC 81 MG] 81 mg PO BEDTIME 08/04/23 predniSONE [Deltasone] 5 mg PO DAILY 08/04/23 - Past Medical/Surgical History Diabetic: Yes -: depression -: HTN -: Hypothyroidism -: Kidney stones -: kidney stone surgery - Family History Father Medical History: Heart disease Mother Medical History: Heart disease - Social History Smoking Status: Unknown if ever smoked Alcohol use: Yes CD- Drugs: No Caffeine use: No Place of Residence: Home Physical Examination Temp Pulse Resp BP Pulse Ox 97.3 F 73 15 135/60 95 08/07/23 04:00 08/07/23 04:00 08/07/23 04:00 08/07/23 04:00 08/07/23 04:00 General: Alert, In no apparent distress, Oriented x3 HEENT: Atraumatic, Normocephalic Neck: Supple Respiratory: Clear to auscultation bilaterally, Normal air movement Cardiovascular: No edema, Regular rate/rhythm Gastrointestinal: Normal bowel sounds, Tenderness Integumentary: No rashes Neurological: Normal speech, Normal tone, Normal affect Laboratory Data - Reviewed Microbiology Data - Reviewed Imagings Data: - Reviewed Conclusions/Impression: Problem List C.difficile Infection Diabetes mellitus type II Hypothyroidism Hypertension Depression C.difficile Infection - C.diff antigen and toxin = positive - CT abdomen pelvis with contrast 08/06: "Mild stranding is present within central mesentery of the abdomen indicative of a mild mesenteritis. Minimal pleurally effusions. Bladder wall appears mildly thickened. This may be secondary to incomplete distention or cystitis." - Started on Vancomycin 125mg PO QID 08/07 Abdominal Pain, Mild Mesenteritis - No recent travel. - Denies any recent antibiotic use. - general surgery following - GI consulted No leukocytosis. Afebrile. Recommendations - C.diff: Continue Vancomycin PO for 10 days (started 08/07) - monitor for worsening abdominal pain, nausea/vomiting - Strict blood glucose control - Consider discontinuing Zosyn. Case discussed with Sherie Oconnor
[2023-08-07] MEDS ORDERED: POTASSIUM 25 MEQ EFFERV TAB PO ONE (09:00)
--- NOTE | 2023-08-07 09:30 | P.PN ---
Subjective Date of Service: 08/07/23 Chief Complaint: Abdominal pain nausea vomiting Subjective: New changes (diarreha since last night) Date of admission: 08/04/23 Primary Care Provider: Dr.Obeid Carter Reason for admission: Abdominal pain nausea vomiting History of Present Illness: Sadia Fernandez is a 52-year-old female with a history of diabetes type 2 poorly controlled, depression, hyperlipidemia, hypertension, hypothyroidism. Patient came to the ER via wheelchair with complaints of abdominal pain. Patient reported onset of left upper abdominal pain stating at 9 PM yesterday, associated with episodes of nausea and vomiting. Patient denies chest pain, shortness of breath, palpitation. Patient reports similar episode in in this June 2023 associated with acute pancreatitis. Patient denies fever chills or weight loss. Patient report constant abdominal pain rating 7 out of 10, positive for nausea vomiting and. Denies constipation. ED course blood pressure 146/79, pulse 92, respiration 20, temperature 97.7, pulse ox 98% on room air. Patient was given morphine 8 mg IV push and Zofran 8 mg IV push and Solu-Cortef 100 mg IV push x1 IV fluid [address] abdomen and pelvis with contrast shows mild stranding within the central mesentery of the abdomen indicative of a mild mesenteritis. Admitting the patient with a diagnosis of vomiting intractable, other specified disorders of adrenal glandadrenal insufficiency, type 2 diabetes mellitus with hyperglycemia and epigastric abdominal tenderness. 08/07/2023 Patient is alert and oriented x3 Reporting pain is better controlled, but still have mild pain on and off New complaints of Diarrhea since last night. Tested Positive for C-diff on Contact isolation now Patient denies diarrhea today. <Moris Gramajo - Last Filed: 08/07/23 16:21> Date of Service: 08/07/23 <Raul Cuellar - Last Filed: 08/07/23 19:16> Review of Systems 10-point ROS is otherwise unremarkable <Moris Gramajo - Last Filed: 08/07/23 16:21> Physical Examination - Vital Signs Temperature: 97.5 F Blood Pressure: 143/68 Pulse: 68 Respirations: 16 Pulse Ox (%): 95 <Moris Gramajo - Last Filed: 08/07/23 16:21> Assessment And Plan - Plan Physical Examination - Physical Exam General: Alert, Oriented x3 HEENT: Atraumatic, Normocephalic, PERRLA Neck: 2+ carotid pulse no bruit Respiratory: Clear to auscultation bilaterally, Normal air movement Cardiovascular: No edema, Normal pulses, Regular rate/rhythm, Normal S1 S2 Capillary refill: <2 Seconds Gastrointestinal: Normal bowel sounds, Hypoactive, Soft and benign, Tenderness Musculoskeletal: No clubbing, No swelling Integumentary: No rashes, No breakdown Neurological: Normal gait, Normal speech, Normal strength at 5/5 x4 extremities Assessment and plan Acute Clostridium Defficle Infection: * Acute new onset of diarrhea since last night, tested positive for C. difficile. Diarrhea since this morning * Patient is started on IV hydration ,vancomycin oral, contact isolation * ID referred * Will continue to monitor the electrolytes and replace as per hospital protocol Abdominal pain, epigastric tenderness likely caused by stranding within the central mesentery of the abdomen indicative of a mild mesenteritis. Nausea and vomiting Mild mesenteritis Other disorders of adrenal gland insufficiency * Acute, improving, patient is still requiring analgesics but less often * Diet started tolerating, IV hydration analgesics as needed, antiemetic as needed * Electrolyte monitoring replace electrolytes as per hospital protocol * Dr. Dwyer informed about the HIDA scan cancellation Insulin dependent type 2 diabetes mellitus with hyperglycemia * Chronic, controlled, on Lantus 20 units subcu daily * With a recent hyperglycemia as per the patient, no hyperglycemic episodes * Before meals and at bedtime blood sugar chest check with low-dose sliding scale of regular insulin * Hypoglycemic precautions Hypertension * Chronic controlled on Coreg 12.5 p.o. twice daily * Resume home medications Hypothyroidism * Chronic, controlled on levothyroxine 112 mcs p.o. daily * Resume the current home medication Depression * Chronic, controlled * Resume the current home medication CODE STATUS Full code Diet Cardiac diabetic DVT prophylaxis Lovenox Discharge Plan: Home Plan to discharge in: 48 Hours - Code Status/Comfort Care Code Status Assessed: Yes (full code) Code Status: Full Code Physician Review: Patient Assessed, Agree with Above Assessment and Plan Critical Care: No Time Spent Managing PTS Care (In Minutes): 35 (minutes) <Moris Gramajo - Last Filed: 08/07/23 16:21> Physician Review: Patient Assessed, Agree with Above Assessment and Plan Physician Review Additional Text: Her C. Difficile testing returned positive, which is likely the cause of her mesenteritis. Started PO vancomycin and consulted Infectious Diseases. Will discontinue piperacillintazobactam. Will plan for discharge once tolerating a diet and having less than 3 bowel movements per day. <Raul Cuellar - Last Filed: 08/07/23 19:16>
[2023-08-07] MEDS: VANCOMYCIN ORAL SOLN 250 MG/5 ML OSYR PO SCH ×3 (10:09→17:49)
[2023-08-07] MEDS: carvediloL 12.5 MG TAB PO SCH ×2 (10:09→17:49)
[2023-08-07] MEDS: FAMOTIDINE 20 MG/2 ML VIAL IV SCH (10:10)
[2023-08-07] MEDS: predniSONE 5 MG TAB PO SCH (10:10)
[2023-08-07] MEDS: clonazePAM 0.5 MG TAB PO SCH ×2 (10:10→21:01)
[2023-08-07] MEDS: ENOXAPARIN 40 MG/0.4 ML SQ SCH (10:10)
[2023-08-07] MEDS: HYDROCODONE/APAP 5/325 MG TAB PO PRN ×2 (11:22→16:28)
[2023-08-07] MEDS ORDERED: LORazepam 2 MG/ML VIAL IV ONE (16:37)
[2023-08-07 17:53] LABS: Potassium 4.1 mEq/L (3.5-5.1)
--- NOTE | 2023-08-07 20:01 | PN ---
Date of Progress Note: 08/07/2023 Diagnosis: Abdominal pain, C diff colitis, and mesenteritis. Subjective: This is the case of a 52-year-old patient who comes to us with abdominal pain of unknown origin. Recently found out that she has been having some diarrhea. The test was positive for C dif f colitis. Patient is feeling better. She has been getting hydration. We are working on electrolyt es. Ultrasound negative for gallstones. Objective: Chest: Clear. Abdomen: Soft and depressible. Extremities: Good capillary refill. Plan: Continue treatment by the primary doctor when she gets discharged. Follow up in our office. YAEL/DUNCAN Voice ID: [id number] Report ID: [id number]
[2023-08-07] MEDS: FAMOTIDINE 20 MG TAB PO SCH (21:01)
[2023-08-07] MEDS: ASPIRIN EC 81 MG TAB PO SCH (21:01)
[2023-08-07] MEDS: QUETIAPINE 100MG TAB PO SCH (21:01)
[2023-08-07] MEDS: TRAZODONE 50 MG TABLET PO SCH (21:03)
[2023-08-08] MEDS: VANCOMYCIN ORAL SOLN 250 MG/5 ML OSYR PO SCH ×4 (00:56→16:54)
[2023-08-08] MEDS: NA CHLORIDE 0.9% 1,000 ML IV SCH ×2 (00:56→20:40)
[2023-08-08] MEDS: HYDROCODONE/APAP 5/325 MG TAB PO PRN ×3 (00:59→20:40)
[2023-08-08 04:52] LABS: Absolute Lymphocytes (CBC) 1.8 K/uL (0.7-4.9); Hematocrit 38.3 % (36.0-45.0); MCV 86.6 fL (80-100); Platelets 210 thou/uL (152-406); RBC Red Blood Cell Count 4.42 M/uL (3.86-4.86)
[2023-08-08 05:10] LABS: Potassium 3.1 mEq/L (3.5-5.1)
[2023-08-08] MEDS: LEVOTHYROXINE SOD 0.025 MG TAB PO SCH (05:50)
[2023-08-08] MEDS: LEVOTHYROXINE SOD 0.112 MG TAB PO SCH (05:50)
[2023-08-08] MEDS: INSULIN REGULAR (HUMAN) 100 UNIT/ML SQ SCH ×4 (07:30→20:41)
[2023-08-08] MEDS: FAMOTIDINE 20 MG TAB PO SCH ×2 (09:00→20:40)
[2023-08-08] MEDS ORDERED: POTASSIUM CL SA 10 MEQ TAB PO ONE ×2 (09:00)
[2023-08-08] MEDS ORDERED: POTASSIUM CL SA 10 MEQ TAB PO SCH (09:00)
--- NOTE | 2023-08-08 09:37 | P.PN ---
Subjective Date of Service: 08/08/23 Chief Complaint: Abdominal pain nausea vomiting Subjective: No new changes, Improving Date of admission: 08/04/23 Primary Care Provider: Dr.Obeid Carter Reason for admission: Abdominal pain nausea vomiting History of Present Illness: Sadia Fernandez is a 52-year-old female with a history of diabetes type 2 poorly controlled, depression, hyperlipidemia, hypertension, hypothyroidism. Patient came to the ER via wheelchair with complaints of abdominal pain. Patient reported onset of left upper abdominal pain stating at 9 PM yesterday, associated with episodes of nausea and vomiting. Patient denies chest pain, shortness of breath, palpitation. Patient reports similar episode in in this June 2023 associated with acute pancreatitis. Patient denies fever chills or weight loss. Patient report constant abdominal pain rating 7 out of 10, positive for nausea vomiting and. Denies constipation. ED course blood pressure 146/79, pulse 92, respiration 20, temperature 97.7, pulse ox 98% on room air. Patient was given morphine 8 mg IV push and Zofran 8 mg IV push and Solu-Cortef 100 mg IV push x1 IV fluid [address] abdomen and pelvis with contrast shows mild stranding within the central mesentery of the abdomen indicative of a mild mesenteritis. Admitting the patient with a diagnosis of vomiting intractable, other specified disorders of adrenal glandadrenal insufficiency, type 2 diabetes mellitus with hyperglycemia and epigastric abdominal tenderness. 08/08/2023 Patient is alert and oriented x3 No acute distress Reports that she is feeling better Mild abdominal tenderness on the left side Reporting pain is better controlled, but still have mild pain on and off Diarrhea improving, 5 times yesterday.C-diff positive on Contact isolation, on oral vancomycin <Moris Gramajo - Last Filed: 08/08/23 09:31> Date of Service: 08/08/23 <Raul Cuellar - Last Filed: 08/08/23 14:46> Physical Examination - Vital Signs Temperature: 97.2 F Blood Pressure: 146/79 Pulse: 65 Respirations: 12 Pulse Ox (%): 95 <Moris Gramajo - Last Filed: 08/08/23 09:31> Assessment And Plan - Plan Physical Examination - Physical Exam General: Alert, Oriented x3 HEENT: Atraumatic, Normocephalic, PERRLA Neck: 2+ carotid pulse no bruit Respiratory: Clear to auscultation bilaterally, Normal air movement Cardiovascular: No edema, Normal pulses, Regular rate/rhythm, Normal S1 S2 Capillary refill: <2 Seconds Gastrointestinal: Normal bowel sounds, Hypoactive, Soft and benign, Tenderness on the left lower quadrant Musculoskeletal: No clubbing, No swelling Integumentary: No rashes, No breakdown Neurological: Normal gait, Normal speech, Normal strength at 5/5 x4 extremities Assessment and plan Acute Clostridium Defficle Infection: * Acute, new onset of diarrhea, tested positive for C. difficile on 08/07/2023. Diarrhea improving, 5 loose stoolsyesterday * Patient is started on IV hydration ,vancomycin oral, contact isolation * ID referred * Will continue to monitor the electrolytes and replace as per hospital protocol Abdominal pain, epigastric tenderness likely caused by stranding within the central mesentery of the abdomen indicative of a mild mesenteritis. Nausea and vomiting Mild mesenteritis Other disorders of adrenal gland insufficiency * Acute, improving, patient is still requiring analgesics but less often * Diet started tolerating, IV hydration analgesics as needed, antiemetic as needed * Electrolyte monitoring replace electrolytes as per hospital protocol * Dr. Dwyer informed about the C. difficile infection Insulin dependent type 2 diabetes mellitus with hyperglycemia * Chronic, controlled, on Lantus 20 units subcu daily * With a recent hyperglycemia as per the patient, no hyperglycemic episodes * Before meals and at bedtime blood sugar chest check with low-dose sliding scale of regular insulin * Hypoglycemic precautions Hypertension * Chronic controlled on Coreg 12.5 p.o. twice daily * Resume home medications Hypothyroidism * Chronic, controlled on levothyroxine 112 mcs p.o. daily * Resume the current home medication Depression * Chronic, controlled * Resume the current home medication CODE STATUS Full code Diet Cardiac diabetic DVT prophylaxis Lovenox Discharge Plan: Home Plan to discharge in: 72 Hours - Code Status/Comfort Care Code Status Assessed: Yes (Full code) Code Status: Full Code Physician Review: Patient Assessed, Agree with Above Assessment and Plan Critical Care: No Time Spent Managing PTS Care (In Minutes): 35 (Minutes) <Moris Gramajo - Last Filed: 08/08/23 09:31> Physician Review: Patient Assessed, Agree with Above Assessment and Plan Physician Review Additional Text: Her diet was advanced to GI soft, but she began experiencing 6/10 abdominal pain. She reports having 4 bowel movements today so far. Will de-escalate diet back to full liquid and advance diet as tolerated. <Raul Cuellar - Last Filed: 08/08/23 14:46>
[2023-08-08] MEDS: carvediloL 12.5 MG TAB PO SCH ×2 (10:18→16:53)
[2023-08-08] MEDS: predniSONE 5 MG TAB PO SCH (10:18)
[2023-08-08] MEDS: ENOXAPARIN 40 MG/0.4 ML SQ SCH (10:18)
[2023-08-08] MEDS: clonazePAM 0.5 MG TAB PO SCH ×2 (10:19→20:39)
[2023-08-08] MEDS: QUETIAPINE 100MG TAB PO SCH (20:40)
[2023-08-08] MEDS: TRAZODONE 50 MG TABLET PO SCH (20:40)
[2023-08-08] MEDS: ASPIRIN EC 81 MG TAB PO SCH (20:40)
[2023-08-09] MEDS: VANCOMYCIN ORAL SOLN 250 MG/5 ML OSYR PO SCH ×5 (00:32→23:32)
[2023-08-09 03:54] LABS: Magnesium 1.9 mg/dL (1.6-2.4); Phosphorus 3.1 mg/dL (2.5-4.9); Potassium 3.3 mEq/L (3.5-5.1)
[2023-08-09] MEDS: LEVOTHYROXINE SOD 0.112 MG TAB PO SCH (05:18)
[2023-08-09] MEDS: LEVOTHYROXINE SOD 0.025 MG TAB PO SCH (05:18)
[2023-08-09] MEDS: HYDROCODONE/APAP 5/325 MG TAB PO PRN ×3 (05:18→20:28)
[2023-08-09] MEDS: NA CHLORIDE 0.9% 1,000 ML IV SCH ×3 (05:18→12:00)
[2023-08-09] MEDS: INSULIN REGULAR (HUMAN) 100 UNIT/ML SQ SCH ×4 (07:30→21:00)
[2023-08-09] MEDS ORDERED: POTASSIUM CL SA 10 MEQ TAB PO ONE (09:00)
[2023-08-09] MEDS: clonazePAM 0.5 MG TAB PO SCH ×2 (09:09→23:30)
[2023-08-09] MEDS: ENOXAPARIN 40 MG/0.4 ML SQ SCH (09:11)
[2023-08-09] MEDS: predniSONE 5 MG TAB PO SCH (09:11)
[2023-08-09] MEDS: FAMOTIDINE 20 MG TAB PO SCH ×2 (09:11→20:27)
[2023-08-09] MEDS: carvediloL 12.5 MG TAB PO SCH ×2 (09:11→17:10)
--- NOTE | 2023-08-09 10:16 | P.PN ---
Subjective Date of Service: 08/09/23 Primary Care Provider: Dr.Obeid Duke Chief Complaint: Abdominal pain nausea vomiting Subjective: No new changes, Improving, Doing well Date of admission: 08/04/23 Primary Care Provider: Dr.Obeid Carter Reason for admission: Abdominal pain nausea vomiting History of Present Illness: Sadia Fernandez is a 52-year-old female with a history of diabetes type 2 poorly controlled, depression, hyperlipidemia, hypertension, hypothyroidism. Patient came to the ER via wheelchair with complaints of abdominal pain. Patient reported onset of left upper abdominal pain stating at 9 PM yesterday, associated with episodes of nausea and vomiting. Patient denies chest pain, shortness of breath, palpitation. Patient reports similar episode in in this June 2023 associated with acute pancreatitis. Patient denies fever chills or weight loss. Patient report constant abdominal pain rating 7 out of 10, positive for nausea vomiting and. Denies constipation. ED course blood pressure 146/79, pulse 92, respiration 20, temperature 97.7, pulse ox 98% on room air. Patient was given morphine 8 mg IV push and Zofran 8 mg IV push and Solu-Cortef 100 mg IV push x1 IV fluid [address] abdomen and pelvis with contrast shows mild stranding within the central mesentery of the abdomen indicative of a mild mesenteritis. Admitting the patient with a diagnosis of vomiting intractable, other specified disorders of adrenal glandadrenal insufficiency, type 2 diabetes mellitus with hyperglycemia and epigastric abdominal tenderness. 08/09/2023 Patient is alert and oriented x3 No acute distress Reports that she is feeling better Mild abdominal tenderness Reporting pain is better controlled, but still have mild pain on and off Diarrhea improving, 5 times yesterday.C-diff positive on Contact isolation, on oral vancomycin <Moris Gramajo - Last Filed: 08/09/23 10:13> Date of Service: 08/09/23 <Raul Cuellar - Last Filed: 08/09/23 16:41> Review of Systems 10-point ROS is otherwise unremarkable <Moris Gramajo - Last Filed: 08/09/23 10:13> Physical Examination - Vital Signs Temperature: 97 F Blood Pressure: 134/75 Pulse: 64 Respirations: 16 Pulse Ox (%): 93 <Moris Gramajo - Last Filed: 08/09/23 10:13> Assessment And Plan - Plan Physical Examination - Physical Exam General: Alert, Oriented x3 Respiratory: Clear to auscultation bilaterally, Normal air movement Cardiovascular: No edema, Normal pulses, Regular rate/rhythm, Normal S1 S2 Capillary refill: <2 Seconds Gastrointestinal: Normal bowel sounds, Soft and benign, Tenderness on the left lower quadrant Musculoskeletal: No clubbing, No swelling Integumentary: No rashes, No breakdown Assessment and plan Acute Clostridium Defficle Infection: * Acute, new onset of diarrhea, tested positive for C. difficile on 08/07/2023. Diarrhea improving, 5 loose stoolsyesterday * Patient is started on IV hydration ,vancomycin oral, contact isolation * ID referred * Will continue to monitor the electrolytes and replace as per hospital protocol Abdominal pain, epigastric tenderness likely caused by stranding within the central mesentery of the abdomen indicative of a mild mesenteritis. Nausea and vomiting Mild mesenteritis Other disorders of adrenal gland insufficiency * Acute, improving, patient is still requiring analgesics but less often * Diet started tolerating, IV hydration analgesics as needed, antiemetic as needed * Electrolyte monitoring replace electrolytes as per hospital protocol * Dr. Dwyer informed about the C. difficile infection Insulin dependent type 2 diabetes mellitus with hyperglycemia * Chronic, controlled, on Lantus 20 units subcu daily * With a recent hyperglycemia as per the patient, no hyperglycemic episodes * Before meals and at bedtime blood sugar chest check with low-dose sliding scale of regular insulin * Hypoglycemic precautions Hypertension * Chronic controlled on Coreg 12.5 p.o. twice daily * Resume home medications Hypothyroidism * Chronic, controlled on levothyroxine 112 mcs p.o. daily * Resume the current home medication Depression * Chronic, controlled * Resume the current home medication CODE STATUS Full code Diet Cardiac diabetic DVT prophylaxis Lovenox Discharge Plan: Home Plan to discharge in: 48 Hours - Code Status/Comfort Care Code Status Assessed: Yes (full code) Code Status: Full Code Physician Review: Patient Assessed, Agree with Above Assessment and Plan Critical Care: No Time Spent Managing PTS Care (In Minutes): 35 (minutes) <Moris Gramajo - Last Filed: 08/09/23 10:13> Physician Review: Patient Assessed, Agree with Above Assessment and Plan Physician Review Additional Text: She continues to have significant diarrhea, reporting 7 watery bowel movements overnight. Will trial cholestyramine to see if this helps. Dr. Robbins to take over as her attending physician tomorrow. <Raul Cuellar - Last Filed: 08/09/23 16:41>
[2023-08-09] MEDS: ONDANSETRON 4 MG/2 ML VIAL IV PRN (12:00)
[2023-08-09] MEDS ORDERED: FLUCONAZOLE 100 MG TAB PO SCH (13:00)
[2023-08-09] MEDS: FLUCONAZOLE 100 MG TAB PO SCH (14:05)
[2023-08-09] MEDS: CHOLESTYRAMINE/ASP 4 GM/PKT PO SCH (17:10)
[2023-08-09] MEDS: ASPIRIN EC 81 MG TAB PO SCH (20:27)
[2023-08-09] MEDS: TRAZODONE 50 MG TABLET PO SCH (20:27)
[2023-08-09] MEDS: QUETIAPINE 100MG TAB PO SCH (20:28)
[2023-08-09] MEDS ORDERED: TRAMADOL HCL 50 MG TAB PO ONE (22:06)
[2023-08-09] MEDS ORDERED: MORPHINE 2 MG/ML SYR IV ONE (22:25)
[2023-08-10] MEDS: NA CHLORIDE 0.9% 1,000 ML IV SCH ×3 (00:34→21:57)
[2023-08-10 03:05] LABS: Magnesium 1.9 mg/dL (1.6-2.4); Potassium 3.6 mEq/L (3.5-5.1)
[2023-08-10] MEDS: LEVOTHYROXINE SOD 0.025 MG TAB PO SCH (06:47)
[2023-08-10] MEDS: LEVOTHYROXINE SOD 0.112 MG TAB PO SCH (06:47)
[2023-08-10] MEDS: VANCOMYCIN ORAL SOLN 250 MG/5 ML OSYR PO SCH ×4 (06:47→23:44)
--- NOTE | 2023-08-10 06:51 | P.PN ---
Subjective Date of Service: 08/10/23 Primary Care Provider: Dr.Obeid Duke Chief Complaint: Abdominal pain nausea vomiting Subjective: Other (reports nausea,LUQ,LLA abdpominal pain 8-10 this morning, reports x1 soft stool this morning reported 4 stools yesteray,) Review of Systems 10-point ROS is otherwise unremarkable Physical Examination - Vital Signs Temperature: 97.4 F Blood Pressure: 118/56 Pulse: 61 Respirations: 16 Pulse Ox (%): 96 - Physical Exam General: Alert, In no apparent distress, Oriented x3 HEENT: Atraumatic, Normocephalic, PERRLA Neck: Supple, 2+ carotid pulse no bruit, JVD not distended Respiratory: Clear to auscultation bilaterally, Normal air movement Cardiovascular: No edema, Normal pulses, Regular rate/rhythm Gastrointestinal: Normal bowel sounds, Tenderness (LUQ, LLQ) Musculoskeletal: No clubbing, No swelling Integumentary: No rashes, No breakdown Neurological: Normal speech, Normal strength at 5/5 x4 extr Assessment And Plan - Plan Assessment and plan Clostridium Defficle Infection acute Acute, new onset of diarrhea, tested positive for C. difficile on 08/07/2023. Diarrhea improving, 4 loose stools yesterday Patient is started on IV hydration ,vancomycin oral, contact isolation ID referred, plan to [place] Home on PO vancomycin HIDA scan IMPRESSION: No evidence of acute cholecystitisNormal gallbladder c ontraction Abdominal pain, epigastric tenderness likely caused by stranding within the central mesentery of the abdomen indicative of a mild mesenteritis. Nausea and vomiting-improved Mild mesenteritis-acite Other disorders of adrenal gland insufficiency Acute, improving, patient is still requiring analgesics but less often increase Diet as tolerated, PRNIV hydration analgesics as needed, antiemetic as needed Electrolyte monitoring replace electrolytes as per hospital protocol Dr. Dwyer informed about the C. difficile infection Insulin dependent type 2 diabetes mellitus with hyperglycemia Chronic, controlled, on Lantus 20 units subcu daily blood sugar chest check with low-dose sliding scale of regular insulin Hypertension Chronic controlled on Coreg 12.5 p.o. twice daily Resume home medications Hypothyroidism adrenal insuff Chronic, controlled on levothyroxine 112 mcs p.o. daily Resume the current home medication, on prednisone daily Depression Chronic, controlled Resume the current home medication CODE STATUS Full Diet diabetic DVT prophylaxis Lovenox Discharge Plan: Home - Code Status/Comfort Care Code Status: Full Code Physician Review: Patient Assessed, Agree with Above Assessment and Plan Critical Care: No Time Spent Managing PTS Care (In Minutes): 35
[2023-08-10] MEDS: INSULIN REGULAR (HUMAN) 100 UNIT/ML SQ SCH ×4 (07:30→21:00)
[2023-08-10] MEDS ORDERED: POTASSIUM CL SA 10 MEQ TAB PO ONE (09:00)
--- NOTE | 2023-08-10 09:07 | P.PN ---
Date of Service: 08/10/23 Chief Complaint: Abdominal pain nausea vomiting Subjective: Patient seen and examined at bedside. In no apparent distress at this time. + abdominal pain, primarily left middle/lower quadrant + decreased appetite + nausea + diarrhea Physical Examination Temp Pulse Resp BP Pulse Ox 97.4 F 61 16 118/56 L 96 08/10/23 06:53 08/10/23 06:53 08/10/23 06:53 08/10/23 06:53 08/10/23 06:53 General: Alert, In no apparent distress, Oriented x3 HEENT: Atraumatic, Normocephalic Neck: Supple Respiratory: Clear to auscultation bilaterally, Normal air movement Cardiovascular: No edema, Regular rate/rhythm Gastrointestinal: Normal bowel sounds, Tenderness Integumentary: No rashes Neurological: Normal speech, Normal tone, Normal affect Laboratory Data - Reviewed Microbiology Data - Reviewed Imagings Data: - Reviewed Medications List: Reviewed Assessment and Plan Problem List C.difficile Infection Diabetes mellitus type II Hypothyroidism Hypertension Depression C.difficile Infection - C.diff antigen and toxin = positive - CT abdomen pelvis with contrast 08/06: "Mild stranding is present within central mesentery of the abdomen indicative of a mild mesenteritis. Minimal pleurally effusions. Bladder wall appears mildly thickened. This may be secon perla to incomplete distention or cystitis." - Started on Vancomycin 125mg PO QID 08/07 - Questran added 08/08 Abdominal Pain, Mild Mesenteritis - No recent travel. - Denies any recent antibiotic use. - general surgery following - Zosyn discontinued No leukocytosis. Afebrile. Recommendations - C.diff: On day 3 of Vancomycin PO. Continue Vancomycin PO for 10 days (started 08/07). Will reevaluate tomorrow. If no improvement in abdominal pain and diarrhea, consider switch to Fidaxomicin 200mg PO BID x 10 days - Continue questran - monitor for worsening abdominal pain, nausea/vomiting - Strict blood glucose control -Contact isolation Case discussed with Sherie Oconnor
--- NOTE | 2023-08-10 09:49 | RAD REPORT ---
EXAM DESCRIPTION: NM - Hepatobiliary System W/ Ph - 08/10/2023 9:43 am CLINICAL HISTORY: Abdominal pain TECHNIQUE: The patient was administered 6.5 millicuries technetium Choletec intravenous and images o f the abdomen obtained for 60 minutes. Patient was given 2 micrograms Kinevac intravenously and image s of the gallbladder obtained for 30 minutes FINDINGS: Liver demonstrates prompt radiotracer uptake. Activity is seen within the gallbladder by 11 minutes. After the administration of cck gallbladder ejection fraction equals 92% (normal values greater than 35% Uptake is seen within small bowel. Patient complained of pain 210 prior to CCK. Pain increased to 4/10 during administration CCK IMPRESSION: No evidence of acute cholecystitis Normal gallbladder contraction
[2023-08-10] MEDS: carvediloL 12.5 MG TAB PO SCH ×2 (10:11→17:18)
[2023-08-10] MEDS: ENOXAPARIN 40 MG/0.4 ML SQ SCH (10:11)
[2023-08-10] MEDS: FLUCONAZOLE 100 MG TAB PO SCH (10:11)
[2023-08-10] MEDS: predniSONE 5 MG TAB PO SCH (10:16)
[2023-08-10] MEDS: FAMOTIDINE 20 MG TAB PO SCH ×2 (10:16→21:55)
[2023-08-10] MEDS: CHOLESTYRAMINE/ASP 4 GM/PKT PO SCH ×2 (10:16→17:18)
[2023-08-10] MEDS: clonazePAM 0.5 MG TAB PO SCH ×2 (10:16→22:37)
[2023-08-10] MEDS: ONDANSETRON 4 MG/2 ML VIAL IV PRN (10:18)
[2023-08-10] MEDS ORDERED: HYDROMORPHONE HCL 0.5 MG/0.5 ML INJ IV ONE (10:30)
[2023-08-10 13:21] LABS: Specific Gravity 1.005 (1.005-1.030)
[2023-08-10 13:23] LABS: Specific Gravity 1.005 (1.005-1.030); Urine Bacteria None Seen /HPF (<20); Urine Bilirubin NEGATIVE (Negative); Urine Blood Negative (Negative); Urine Clarity Clear (Clear); Urine Color Colorless (Yellow); Urine Glucose NEGATIVE (Negative); Urine Mucus Slight /HPF (None Seen); Urine Protein NEGATIVE (Negative); Urine RBC <5 /HPF (None Seen); Urine Urobilinogen Normal (Normal)
--- NOTE | 2023-08-10 16:44 | PN ---
Date of Progress Note: 08/10/2023 Reason For Service: Upper abdominal pain. Subjective: Patient is doing better and she was found to have C diff. She stated that from home she was already having some diarrhea. Eventually, she mentioned that to the primary doctor, who did the test and it shows positive for C diff. Still on the CAT scan, we have no evidence of toxic megacolo n or any large colitis except the findings in the mesentery. The patient has history of pancreatitis in the past but at this moment does not show the labs to confirm the pancreatitis and she has felt b eulalio until last night. Once again, some of the pain in the epigastric and gastric area came back. Objective: Chest: Clear. Abdomen: Soft and depressible. No guarding or rebound. Laboratory Data: Blood work review including the last blood work from 2 days ago shows a white count of 5. Plan: From the surgical standpoint, we are going to continue conservative treatment. We encouraged the patient to see senior systems developer and continue medical service. She asked me about options of a gastric stapling even though not associated with the pain at this moment. She wants to have some alt ernative. We oriented her in different ways how can and how she may have to do that as an outpatient and at also another institution. YAEL/DUNCAN Voice ID: [id number] Report ID: [id number]
[2023-08-10] MEDS: TRAZODONE 50 MG TABLET PO SCH (21:55)
[2023-08-10] MEDS: ASPIRIN EC 81 MG TAB PO SCH (21:56)
[2023-08-10] MEDS: QUETIAPINE 100MG TAB PO SCH (21:56)
[2023-08-10] MEDS: HYDROCODONE/APAP 5/325 MG TAB PO PRN (21:56)
[2023-08-11] MEDS: LEVOTHYROXINE SOD 0.112 MG TAB PO SCH (06:33)
[2023-08-11] MEDS: NA CHLORIDE 0.9% 1,000 ML IV SCH (06:33)
[2023-08-11] MEDS: LEVOTHYROXINE SOD 0.025 MG TAB PO SCH (06:33)
[2023-08-11] MEDS: VANCOMYCIN ORAL SOLN 250 MG/5 ML OSYR PO SCH ×2 (06:34→12:00)
[2023-08-11] MEDS: INSULIN REGULAR (HUMAN) 100 UNIT/ML SQ SCH ×2 (07:30→11:30)
--- NOTE | 2023-08-11 07:55 | P.DS ---
Admission Date: 08/04/23 Discharge Date: 08/11/23 Primary Care Provider: Dr.Obeid Duke Disposition: ROUTINE DISCHARGE Discharge Condition: FAIR Reason for Admission: Abdominal pain nausea vomiting - Problems (1) C. difficile diarrhea Current Visit: Yes Status: Acute Hospital Course: Sadia Mcpherson is a pleasant 53-year-old female with a past medical history significant for hypothyroidism, diabetes, who was admitted to the [facility] on 08/04 for C. difficile. Patient was evaluated by surgery and infectious disease, patient was treated with p.o. vancomycin, tolerated antibiotic treatment, p.o. diet. Ambulate independently. On 08/11/2023, Ms. Mcpherson was seen on morning rounds and deemed medically stable for discharge. She was discharged with instructions to schedule follow- up appointments with with primary care physician. She was provided prescriptions for of Questran ,Fidaxomin twice daily for 10 days. The patient and family members were given the opportunity to ask questions and reported no further questions. Furthermore, all questions were answered to the best of my ability. A copy of this discharge summary will be sent to the above providers to facilitate continuity of care. Today, I personally spent 55 minutes with Sadia, of which greater than 50% of the time was spent in patient education, counseling, and coordination of care as described above. Vital Signs/Physical Exam: Temp Pulse Resp BP Pulse Ox 97.2 F 63 18 125/67 93 08/11/23 04:00 08/11/23 04:00 08/11/23 04:00 08/11/23 04:00 08/11/23 04:00 Laboratory Data at Discharge: WBC 5.00 thou/uL (4.3-10.9) 08/08/23 04:25 Hgb 13.1 g/dL (12.0-15.0) 08/08/23 04:25 Hct 38.3 % (36.0-45.0) 08/08/23 04:25 Plt Count 210 thou/uL (152-406) 08/08/23 04:25 Sodium 144 mEq/L (136-145) 08/10/23 01:41 Potassium 3.6 mEq/L (3.5-5.1) 08/10/23 01:41 BUN 4 mg/dL (7-18) L 08/10/23 01:41 Creatinine 0.64 mg/dL (0.55-1.02) 08/10/23 01:41 Glucose 114 mg/dL (74-106) H 08/10/23 01:41 Phosphorus 3.1 mg/dL (2.5-4.9) 08/09/23 03:07 Magnesium 1.9 mg/dL (1.6-2.4) 08/10/23 01:41 Total Bilirubin 0.2 mg/dL (0.2-1.0) 08/06/23 01:43 AST 11 U/L (15-37) L 08/06/23 01:43 ALT 28 U/L (13-56) 08/06/23 01:43 Alkaline Phosphatase 61 U/L (45-117) 08/06/23 01:43 Triglycerides 91 mg/dL (<150) 08/07/23 02:03 Cholesterol 193 mg/dL (<200) 08/07/23 02:03 HDL Cholesterol 59 mg/dL (40-60) 08/07/23 02:03 Cholesterol/HDL Ratio 3.27 08/07/23 02:03 Lipase 35 U/L (13-75) 08/05/23 04:11 Home Medications: Levothyroxine Sodium 137 mcg PO DAILY 08/31/20 Tramadol HCl [Ultram] 50 mg PO Q6H PRN #30 tablet 08/31/20 Trazodone HCl 1 tab PO BEDTIME 08/31/20 carvediloL [Carvedilol] 12.5 mg PO BID 08/31/20 clonazePAM [Clonazepam] 0.25 mg PO BID 08/31/20 Insulin Glargine,Hum.rec.anlog [Lantus Solostar] 20 units SQ DAILY 06/22/22 Quetiapine [Seroquel*] 1 tab PO BEDTIME 06/22/22 Cholestyramine/Asp [Questran Light*] 2 gm PO BIDWM 30 Days #30 packet 08/11/23 Fidaxomicin [Dificid] 200 mg PO BID 10 Days #20 tablet 08/11/23 New Medications: Fidaxomicin [Dificid] 200 mg PO BID 10 Days #20 tablet Cholestyramine/Asp [Questran Light*] 2 gm PO BIDWM 30 Days #30 packet Physician Discharge Instructions: Follow-up with primary care in 1 week call office for appointment Diabetic diet, as tolerated Activity level as tolerated Resume all home prescriptions New medications Questran 1 packet twice daily, 4 mg packet, 2 mg twice daily Fidaxamcin 200 mg 1 tablet twice daily for 10 days Diet: ADA Followup: Unknown,U [Primary Care Provider] -
--- NOTE | 2023-08-11 08:27 | P.PN ---
Date of Service: 08/11/23 Chief Complaint: Abdominal pain nausea vomiting Subjective: Patient seen and examined at bedside. In no apparent distress. Reports improvement in appetite. Minimal improvement in diarrhea. Abdominal pain reduced to dull ache instead of sharp pain. No acute events reported overnight. Physical Examination Temp Pulse Resp BP Pulse Ox 97.2 F 63 18 125/67 93 08/11/23 04:00 08/11/23 04:00 08/11/23 04:00 08/11/23 04:00 08/11/23 04:00 General: Alert, In no apparent distress, Oriented x3 HEENT: Atraumatic, Normocephalic Neck: Supple Respiratory: Clear to auscultation bilaterally, Normal air movement Cardiovascular: No edema, Regular rate/rhythm Gastrointestinal: Normal bowel sounds, Tenderness Integumentary: No rashes Neurological: Normal speech, Normal tone, Normal affect Laboratory Data - Reviewed Microbiology Data - Reviewed Imagings Data: - Reviewed Medications List: Acetaminophen (Acetaminophen 500 Mg Tab) 500 mg PO Q4HP PRN PRN Reason: Pain scale 2-4 (Mild)/Temp Hydrocodone Bitart/Acetaminophen (Hydrocodone/Apap 5/325 Mg Tab) 1 tab PO Q6H PRN PRN Reason: Pain scale 5-7 (Moderate) Last Admin: 08/10/23 21:56 Dose: 1 tab Aspirin (Aspirin Ec 81 Mg Tab) 81 mg PO BEDTIME REPLACED BY [facility] Last Admin: 08/10/23 21:56 Dose: 81 mg Carvedilol (Carvedilol 12.5 Mg Tab) 12.5 mg PO BIDWM REPLACED BY [facility] Last Admin: 08/10/23 17:18 Dose: 12.5 mg Cholestyramine Resin (Cholestyramine/Asp 4 Gm/Pkt) 2 gm PO BIDWM REPLACED BY [facility] Last Admin: 08/10/23 17:18 Dose: 2 gm Clonazepam (Clonazepam 0.5 Mg Tab) 0.25 mg PO BID REPLACED BY [facility] Last Admin: 08/10/23 22:37 Dose: 0.25 mg Diphenhydramine HCl (Diphenhydramine 50 Mg/Ml Vial) 25 mg IV Q8H PRN PRN Reason: ITCHING Last Admin: 08/05/23 13:35 Dose: 25 mg Enoxaparin Sodium (Enoxaparin 40 Mg/0.4 Ml) 40 mg SQ DAILY REPLACED BY [facility] Last Admin: 08/10/23 10:11 Dose: 40 mg Famotidine (Famotidine 20 Mg Tab) 20 mg PO BID SHAKEEL; Protocol Last Admin: 08/10/23 21:55 Dose: 20 mg Fluconazole (Fluconazole 100 Mg Tab) 100 mg PO DAILY SHAKEEL; Protocol Stop: 08/13/23 09:01 Last Admin: 08/10/23 10:11 Dose: 100 mg Sodium Chloride (Ns 1000 Ml Ivbag) 1,000 mls @ 100 mls/hr IV .Q10H SHAKEEL Last Admin: 08/11/23 06:33 Dose: 1,000 mls Insulin Human Regular (Insulin Regular (Human) 100 Unit/Ml) 0 unit SQ ACHS SHAKEEL; Protocol Last Admin: 08/10/23 21:00 Dose: Not Given Levothyroxine Sodium (Levothyroxine Sod 0.025 Mg Tab) 0.025 mg PO DAILYAC REPLACED BY [facility] Last Admin: 08/11/23 06:33 Dose: 0.025 mg Levothyroxine Sodium (Levothyroxine Sod 0.112 Mg Tab) 0.112 mg PO DAILYAC REPLACED BY [facility] Last Admin: 08/11/23 06:33 Dose: 0.112 mg Ondansetron HCl (Ondansetron 4 Mg/2 Ml Vial) 4 mg IV Q4H PRN PRN Reason: NAUSEA / VOMITING Last Admin: 08/10/23 10:18 Dose: 4 mg Prednisone (Prednisone 5 Mg Tab) 5 mg PO DAILY REPLACED BY [facility] Last Admin: 08/10/23 10:16 Dose: 5 mg Quetiapine Fumarate (Quetiapine 100mg Tab) 100 mg PO BEDTIME SHAKEEL Last Admin: 08/10/23 21:56 Dose: 100 mg Trazodone HCl (Trazodone 50 Mg Tablet) 50 mg PO BEDTIME SHAKEEL Last Admin: 08/10/23 21:55 Dose: 50 mg Vancomycin HCl (Vancomycin Oral Soln 250 Mg/5 Ml [place]) 125 mg PO Q6HR REPLACED BY [facility]; Protocol Last Admin: 08/11/23 06:34 Dose: 125 mg Assessment and Plan Problem List C.difficile Infection Diabetes mellitus type II Hypothyroidism Hypertension Depression C.difficile Infection - C.diff antigen and toxin = positive - CT abdomen pelvis with contrast 08/06: "Mild stranding is present within central mesentery of the abdomen indicative of a mild mesenteritis. Minimal pleurally effusions. Bladder wall appears mildly thickened. This may be secondary to incomplete distention or cystitis." - Started on Vancomycin 125mg PO QID 08/07 Abdominal Pain, Mild Mesenteritis - No recent travel. - Denies any recent antibiotic use. - general surgery following - Zosyn discontinued No leukocytosis. Afebrile. Recommendations - C.diff: On Vancomycin PO day 4. Reports minimal improvement in abdominal pain and diarrhea. - Switch to Fidaxomicin PO for 10 days upon discharge. - Strict blood glucose control - Follow up with GI as outpatient - Maintain adequate hydration and nutrition - Advance diet as tolerated Plan of care discussed with patient ad bedside. Case discussed with Sherie Oconnor
[2023-08-11] MEDS: predniSONE 5 MG TAB PO SCH (08:44)
[2023-08-11] MEDS: ENOXAPARIN 40 MG/0.4 ML SQ SCH (08:44)
[2023-08-11] MEDS: FLUCONAZOLE 100 MG TAB PO SCH (08:44)
[2023-08-11] MEDS: FAMOTIDINE 20 MG TAB PO SCH (08:45)
[2023-08-11] MEDS: carvediloL 12.5 MG TAB PO SCH (08:45)
[2023-08-11] MEDS: clonazePAM 0.5 MG TAB PO SCH (08:45)
[2023-08-11] MEDS: CHOLESTYRAMINE/ASP 4 GM/PKT PO SCH (08:45)
[2023-08-11 09:30] VITALS: O2SAT 96
[2023-08-11 10:56] LABS: Potassium 3.3 mEq/L (3.5-5.1)
[2023-08-11] MEDS ORDERED: POTASSIUM CL SA 10 MEQ TAB PO ONE (12:00)
[2023-08-11 13:26] VITALS: BP 165/98; TEMP 98.1
--- NOTE | 2023-08-11 13:34 | P.PN ---
Subjective Date of Service: 08/11/23 Primary Care Provider: Dr. Yosvany Robbins Chief Complaint: Abdominal pain nausea vomiting Reports nausea, stools more formed today. Reports mild left lower quadrant abdominal tenderness Slowly advancing diet Review of Systems 10-point ROS is otherwise unremarkable Physical Examination - Vital Signs Temperature: 98.1 F Blood Pressure: 165/98 Pulse: 66 Respirations: 16 Pulse Ox (%): 96 - Physical Exam General: Alert, In no apparent distress, Oriented x3 HEENT: Atraumatic, Normocephalic, PERRLA, Mucous membr. moist/pink Neck: Supple, 2+ carotid pulse no bruit Respiratory: Clear to auscultation bilaterally, Normal air movement Cardiovascular: No edema, Normal pulses, Regular rate/rhythm Gastrointestinal: Normal bowel sounds, Other (Left lower quadrant tenderness, several stools soft today) Musculoskeletal: No clubbing, No swelling Integumentary: No rashes, No breakdown Neurological: Normal speech, Normal strength at 5/5 x4 extr, Normal tone Assessment And Plan - Plan Assessment and plan Clostridium Defficle Infection acute Acute, new onset of diarrhea, tested positive for C. difficile on 08/07/2023. Diarrhea improving, 4 loose stools yesterday Patient is started on IV hydration ,vancomycin oral, contact isolation ID referred, plan to [place] Home on PO vancomycin HIDA scan IMPRESSION: No evidence of acute cholecystitisNormal gallbladder contraction Abdominal pain, epigastric tenderness likely caused by stranding within the central mesentery of the abdomen indicative of a mild mesenteritis. Nausea and vomiting-improved Mild mesenteritis-acite Other disorders of adrenal gland insufficiency Acute, improving, patient is still requiring analgesics but less often increase Diet as tolerated, PRNIV hydration analgesics as needed, antiemetic as needed Electrolyte monitoring replace electrolytes as per hospital protocol Dr. Dwyer informed about the C. difficile infection Insulin dependent type 2 diabetes mellitus with hyperglycemia Chronic, controlled, on Lantus 20 units subcu daily blood sugar chest check with low-dose sliding scale of regular insulin Hypertension Chronic controlled on Coreg 12.5 p.o. twice daily Resume home medications Hypothyroidism adrenal insuff Chronic, controlled on levothyroxine 112 mcs p.o. daily Resume the current home medication, on prednisone daily Depression Chronic, controlled Resume the current home medication CODE STATUS Full Diet diabetic DVT prophylaxis Lovenox Discharge Plan: Home - Code Status/Comfort Care Code Status: Full Code Physician Review: Patient Assessed, Agree with Above Assessment and Plan Critical Care: No Time Spent Managing PTS Care (In Minutes): 35
== END 2023-08-11 13:30 | disposition home or self-care (01) | DRG 372 ==
LOC: ER 05:40 → ERHOLD 09:07 → 2ND 13:46
PROVIDERS: ADMIT Internal Medicine; ATTEND Hospitalist
DX: A04.72 Enterocolitis due to Clostridium difficile, not specified as recurrent (principal); E27.40 Unspecified adrenocortical insufficiency; E11.65 Type 2 diabetes mellitus with hyperglycemia; E03.9 Hypothyroidism, unspecified; I10 Essential (primary) hypertension; E87.6 Hypokalemia; F32.A Depression, unspecified; E78.00 Pure hypercholesterolemia, unspecified; Z88.8 Allergy status to other drugs, medicaments and biological substances; Z88.2 Allergy status to sulfonamides; Z79.82 Long term (current) use of aspirin; Z79.52 Long term (current) use of systemic steroids; Z79.84 Long term (current) use of oral hypoglycemic drugs; Z79.02 Long term (current) use of antithrombotics/antiplatelets; Z79.890 Hormone replacement therapy; Z79.899 Other long term (current) drug therapy
CPT/HCPCS: 36415; 74176; 74177; 76705; 78227; 80048; 80053; 80061; 81001; 81003; 81025; 82947; 83036; 83690; 83735; 84100; 84132; 85025; 87086; 87088; 87324; 96374; 96375; 99284; A9537; J0696; J1170; J1200; J1650; J1720; J1815; J2270; J2405; J2543; J2550; J2805; J3480; J7030; J7512; Q9967

== ENCOUNTER 2023-09-19 13:54 | Emergency (ER) | payer OTHER ==
[2023-09-19 15:05] LABS: Absolute Lymphocytes (CBC) 1.2 K/uL (0.7-4.9); Hematocrit 44.6 % (36.0-45.0); Lymphocytes % 21.2 % (15.3-44.8); MCV 87.6 fL (80-100); MPV 8.7 fL (7.6-11.3); Platelets 215 thou/uL (152-406); RBC Red Blood Cell Count 5.09 M/uL (3.86-4.86)
[2023-09-19 15:18] LABS: SARS-CoV-2 Antigen Rapid Res Negative (Negative)
[2023-09-19 15:22] LABS: Albumin 3.8 g/dL (3.4-5.0); Bilirubin Total 0.4 mg/dL (0.2-1.0); Potassium 4.3 mEq/L (3.5-5.1); Protein, Total 8.4 g/dL (6.4-8.2)
[2023-09-19] MEDS ORDERED: ONDANSETRON 4 MG/2 ML VIAL ONE (15:27)
[2023-09-19] MEDS ORDERED: MORPHINE 4 MG/ML SYR ONE (15:28)
[2023-09-19] MEDS ORDERED: NA CHLORIDE 0.9% 1,000 ML ONE (15:28)
[2023-09-19 15:46] LABS: Urine Bacteria None Seen /HPF (<20); Urine Bilirubin NEGATIVE (Negative); Urine Blood Negative (Negative); Urine Clarity Clear (Clear); Urine Color Colorless (Yellow); Urine Glucose 3+ (Negative); Urine Mucus Slight /HPF (None Seen); Urine Protein NEGATIVE (Negative); Urine RBC <5 /HPF (None Seen); Urine Urobilinogen Normal (Normal); Urine pH 6.5 (5.0-7.0)
--- NOTE | 2023-09-19 16:10 | RAD REPORT ---
EXAM DESCRIPTION: CT - Abdomen Pelvis W Contrast - 09/19/2023 3:43 pm CLINICAL HISTORY: ABD PAIN COMPARISON: Abdomen Pelvis W Contrast dated 08/04/2023; Abdomen Pelvis W Contrast dated 3; Abdomen Pelvis W Contrast dated 02/11/2022; Abdomen Pelvis W Contrast dated 10/28/2021 TECHNIQUE: Thin cut axial CT imaging of the abdomen and pelvis was performed following intravenous a dministration of Isovue 300. Multiplanar reformats were generated and reviewed. All CT scans are performed using dose optimization technique as appropriate and may include automated exposure control or mA/KV adjustment according to patient size. FINDINGS: No suspicious findings in the lung bases. The liver, spleen, and pancreas show no suspicious findings. Gallbladder and biliary tree are also wi thout suspicious finding. Symmetric renal function is seen with no hydronephrosis or suspicious renal mass. Mild left renal pel vis prominence, without evidence of obstructing calculi. Left lower renal pole calculi, largest measu ring 8 mm. Exophytic subcentimeter left lower pole cyst. No dilated bowel loops or bowel wall thickening. Appendix is unremarkable. No free air, free fluid or inflammatory stranding. No hernia, mass or bulky lymphadenopathy. The urinary bladder is without sig nificant finding. No suspicious bony findings. IMPRESSION: Nonobstructing left renal calculi, largest measuring 8 mm. No other acute intra-abdomina l process.
[2023-09-19] MEDS ORDERED: KETOROLAC 30 MG/ML INJ ONE (16:25)
[2023-09-19] MEDS ORDERED: MAGNESIUM SULFATE 1 gm IVPB 1 GM/100 ML BAG IV ONE (17:14)
[2023-09-19] MEDS ORDERED: TAMSULOSIN 0.4 MG SR CAP ONE (17:14)
[2023-09-19] MEDS ORDERED: DIAZEPAM 10 MG/2 ML INJ SYRINGE ONE (17:56)
--- NOTE | 2023-09-19 18:09 | EDPHYS ---
Physician Documentation [facility] Name: Sadia Mcpherson Age: 53 yrs Sex: Female : 1970 Arrival Date: 09/19/2023 Time: 13:54 Bed 14 Private MD: ED Physician Jc Holguin HPI: 09/19 17:19 This 53 yrs old Female presents to ER via EMS with complaints of Back Pain, Abdominal sb4 Pain. 17:19 Patient states for the last 3 days she has been experiencing bilateral lower back pain sb4 that radiates around to her lower quadrants. She states that it was so bad this morning that she cannot get out of bed so she called EMS. She does endorse a history of kidney stones that have required lithotripsy and ureteral stenting. She denies any urinary symptoms. Historical: - Allergies: 14:01 Lamictal; db 14:01 Sulfa (Sulfonamide Antibiotics); db 14:01 tobramycin; db 14:01 Wellbutrin; db - PMHx: 14:01 adrenal insuff.; Hypercholesterolemia; Hypothyroidism; IDDM; Depression; Hypertension; db - PSHx: 14:01 Lithotripsy; db - Immunization history:: Client reports having NOT received the Covid vaccine. - Social history:: Smoking status: Patient denies any tobacco usage or history of. ROS: 17:19 Constitutional: Negative for fever, chills, and weight loss, sb4 17:19 Abdomen/GI: Positive for abdominal pain, 17:19 Back: Positive for flank pain, bilaterally, 17:19 All other systems are negative, Exam: 17:19 Constitutional: This is a well developed, well nourished patient who is awake, alert, sb4 and in no acute distress. Head/Face: Normocephalic, atraumatic. Eyes: Extra-ocular motions intact. Periorbital areas with no swelling, redness, or edema. ENT: Mucous membranes moist. Cardiovascular: Regular rate and rhythm with a normal S1 and S2. Respiratory: Lungs have equal breath sounds bilaterally, clear to auscultation and percussion. No rales, rhonchi or wheezes noted. No increased work of breathing, no retractions or nasal flaring. Abdomen/GI: Soft, non-tender, no distension. Skin: Warm, dry with normal turgor. Normal color with no rashes, no lesions, and no evidence of cellulitis. MS/ Extremity: Pulses equal, no cyanosis. Neurovascular intact. Full, normal range of motion. Neuro: Awake and alert, GCS 15, oriented to person, place, time, and situation. Motor strength 5/5 in all extremities. Sensory grossly intact. Vital Signs: 13:55 BP 127 / 108; Pulse 77; Resp 18; Temp 98(O); Pulse Ox 95% ; Weight 90.72 kg; Height 5 db ft. 4 in. ; 15:00 BP 135 / 82; Pulse 77; Resp 16; Pulse Ox 97% on R/A; db 16:00 BP 131 / 77; Pulse 67; Resp 16; Pulse Ox 96% on R/A; db 17:00 BP 137 / 85; Pulse 62; Resp 18; Pulse Ox 98% on R/A; db 18:00 BP 122 / 80; Pulse 65; Resp 16; Pulse Ox 95% on R/A; db 13:55 Body Mass Index 34.33 (90.72 kg, 162.56 cm) db MDM: 14:05 Patient medically screened. sb4 17:19 Differential diagnosis: Hydronephrosis Neoplasm Pyelonephritis ruptured disc, spinal sb4 injury, sprain, Ureterolithiasis vertebral fracture. 18:08 Data reviewed: vital signs, nurses notes, EMS record, lab test result(s), radiologic sb4 studies, and as a result, I will discharge patient. Consideration of Admission/Observation Escalation of care including admission/observation considered. Historians other than the Patient: Spouse/Significant Other: . Care significantly affected by the following chronic conditions: Diabetes, Hypertension. Counseling: I had a detailed discussion with the patient and/or guardian regarding the historical points, exam findings, and any diagnostic results supporting the discharge/admit diagnosis, the presence of at least one elevated blood pressure reading (>120/80) during this emergency department visit, lab results, radiology results, the need for outpatient follow up, a urologist, to return to the emergency department if symptoms worsen or persist or if there are any questions or concerns that arise at home. 09/19 14:12 Order name: CBC with Diff; Complete Time: 15: sb4 09/19 14:12 Order name: CMP; Complete Time: 15: sb4 09/19 14:12 Order name: Lipase; Complete Time: 15:26 sb4 09/19 14:12 Order name: UAM; Complete Time: 15:49 sb4 09/19 14:29 Order name: SARS RAPID; Complete Time: 15:21 sb4 09/19 14:29 Order name: Flu; Complete Time: 15:26 sb4 09/19 14:12 Order name: CT Abd/Pelvis - IV Contrast Only; Complete Time: 16:17 sb4 09/19 14:12 Order name: IV Saline Lock; Complete Time: 15:11 sb4 09/19 14:12 Order name: Labs collected and sent; Complete Time: 15:11 sb4 Administered Medications: 15:18 Drug: NS 0.9% IV 1000 ml IV at 1 bolus Per protocol; 1000 mL bolus Route: IV; Rate: 1 db bolus; Site: right antecubital; 16:30 Follow up: Response: No adverse reaction; IV Status: Completed infusion; IV Intake: db 1000ml 15:18 Drug: Ondansetron IVP 4 mg IVP once; over 2 minutes Route: IVP; Site: right antecubital;db 17:50 Follow up: Response: No adverse reaction db 15:18 Drug: morphine IVP or IV 4 mg IVP once over 4 mins Route: IVP; Infused Over: 4 mins; db Site: right antecubital; 17:50 Follow up: Response: No adverse reaction db 16:12 Drug: Ketorolac IVP 30 mg IVP once Route: IVP; Site: right antecubital; db 17:49 Follow up: Response: No adverse reaction; Pain is decreased db 16:50 Drug: Flomax PO 0.4 mg PO once Route: PO; db 17:49 Follow up: Response: No adverse reaction db 16:55 Drug: Magnesium Sulfate IVPB 1 grams IVPB once over 1 hrs Route: IVPB; Infused Over: 1 db hrs; Site: right wrist; 17:30 Follow up: Response: No adverse reaction; IV Status: Completed infusion; IV Intake: db 100ml 17:49 Drug: Diazepam IVP 10 mg IVP once Route: IVP; Site: right wrist; db 18:20 Follow up: Response: No adverse reaction db 18:23 CANCELLED (Physician Discretion): [id number] mg IM once sb4 18:24 Drug: Hydrocodone-Acetaminophen PO (7.5 mg-325 mg) 1 tabs PO once Route: PO; db 18:35 Follow up: Response: No adverse reaction db Disposition Summary: 09/19/23 18:08 Discharge Ordered Notes: Location: Home sb4 Problem: new sb4 Symptoms: have improved sb4 Condition: Stable sb4 Diagnosis - Calculus of kidney sb4 - Lumbago with sciatica sb4 Followup: sb4 - With: Artie Duke MD - When: 2 - 3 days - Reason: Recheck today's complaints, Re-evaluation by your physician Discharge Instructions: - Discharge Summary Sheet sb4 - Acute Back Pain, Adult sb4 - Kidney Stones sb4 Forms: - Medication Reconciliation Form sb4 - Thank You Letter sb4 - Antibiotic Education sb4 - Prescription Opioid Use sb4 - Patient Portal Instructions sb4 - Leadership Thank You Letter sb4 Prescriptions: - tamsulosin 0.4 mg Oral capsule - take 1 capsule ORAL route every day at bedtime; 20 capsule; Refills: 0, Product sb4 Selection Permitted - Diazepam 5 mg Oral Tablet - take 1 tablet ORAL route every 8 hours As needed; 10 tablet; Refills: 0, sb4 Product Selection Permitted - methocarbamol 750 mg Oral tablet - take 1 tablet ORAL route 4 times per day; 20 tablet; Refills: 0, Product sb4 Selection Permitted Addendum: 09/28/2023 09:44 I reviewed the patient's care provided by the Advanced Practice Provider and agree with manasa dover the diagnosis and treatment plan. Signatures: Dispatcher [employer] Katerin Egan RN RN db Brown, Sophia, PA-C PA-C sb4 Jc Holguin Corrections: (The following items were deleted from the chart) 09/19 18:23 18:22 Dicyclomine IM 20 mg IM once ordered. sb4 sb4
--- NOTE | 2023-09-19 18:09 | ER ---
Nurse's Notes [facility] Name: Sadia Mcpherson Age: 53 yrs Sex: Female : 1970 Arrival Date: 09/19/2023 Time: 13:54 Bed 14 Private MD: Diagnosis: Calculus of kidney;Lumbago with sciatica Presentation: 09/19 13:55 Chief complaint: EMS states: BACK PAIN RADIATING INTO ABD STARTED TODAY WITH INTENSE db PAINS. TOOK TRAMADOL. Coronavirus screen: Vaccine status: Patient reports being unvaccinated. Client denies travel out of the [place] in the last 14 days. At this time, the client does not indicate any symptoms associated with coronavirus-19. Ebola Screen: Patient negative for fever greater than or equal to 101.5 degrees Fahrenheit, and additional compatible Ebola Virus Disease symptoms Patient denies exposure to infectious person. Patient denies travel to an Ebola-affected area in the 21 days before illness onset. No symptoms or risks identified at this time. Initial Sepsis Screen: Does the patient meet any 2 criteria? No. Patient's initial sepsis screen is negative. Does the patient have a suspected source of infection? No. Patient's initial sepsis screen is negative. Risk Assessment: Do you want to hurt yourself or someone else? Patient reports no desire to harm self or others. Onset of symptoms was September 19, 2023. 13:55 Method Of Arrival: EMS: [facility] db 13:55 Acuity: JAYLEN 3 db 13:55 Care prior to arrival: Glucose check: 282. db Triage Assessment: 14:01 General: Appears in no apparent distress. comfortable, Behavior is calm, cooperative. db Pain: Complains of pain in back and abdomen. Neuro: Level of Consciousness is awake, alert, obeys commands, Oriented to person, place, time, situation. Respiratory: Airway is patent. GI: Abdomen is non-distended. Musculoskeletal: Circulation, motion, and sensation intact. Capillary refill < 3 seconds, Range of motion: intact in all extremities. Historical: - Allergies: 14:01 Lamictal; db 14:01 Sulfa (Sulfonamide Antibiotics); db 14:01 tobramycin; db 14:01 Wellbutrin; db - PMHx: 14:01 adrenal insuff.; Hypercholesterolemia; Hypothyroidism; IDDM; Depression; Hypertension; db - PSHx: 14:01 Lithotripsy; db - Immunization history:: Client reports having NOT received the Covid vaccine. - Social history:: Smoking status: Patient denies any tobacco usage or history of. Screenin:49 [facility] ED Fall Risk Assessment (Adult) History of falling in the last 3 months, db including since admission No falls in past 3 months (0 pts) Confusion or Disorientation No (0 pts) Intoxicated or Sedated No (0 pts) Impaired Gait No (0 pts) Mobility Assist Device Used No (0 pt) Altered Elimination No (0 pt) Score/Fall Risk Level 0 - 2 = Low Risk Oriented to surroundings, Maintained a safe environment. Abuse screen: Denies threats or abuse. Denies injuries from another. Nutritional screening: No deficits noted. Tuberculosis screening: No symptoms or risk factors identified. Assessment: 14:08 Reassessment: SEE TRIAGE FOR ASSESSMENT. Neuro: Level of Consciousness is awake, alert, db obeys commands, Oriented to person, place, time, situation, Speech is normal. 15:48 Reassessment: Patient appears in no apparent distress at this time. Patient and/or db family updated on plan of care and expected duration. Pain level reassessed. Patient is alert, oriented x 3, equal unlabored respirations, skin warm/dry/pink. PATIENT RETURNED TO ROOM FROM CT. Reassessment: PAIN WITH AMBULATION. General: Appears in no apparent distress. comfortable, Behavior is calm, cooperative. Pain: Complains of pain in abdomen and back. Respiratory: Airway is patent Respiratory effort is even, unlabored, Respiratory pattern is regular, symmetrical. 17:00 Reassessment: Patient appears in no apparent distress at this time. Patient and/or db family updated on plan of care and expected duration. Pain level reassessed. Patient is alert, oriented x 3, equal unlabored respirations, skin warm/dry/pink. 18:00 Reassessment: Patient appears in no apparent distress at this time. Patient and/or db family updated on plan of care and expected duration. Pain level reassessed. Patient is alert, oriented x 3, equal unlabored respirations, skin warm/dry/pink. PT AMBULATORY TO THE RESTROOM Patient states feeling better. Patient states symptoms have improved. Vital Signs: 13:55 BP 127 / 108; Pulse 77; Resp 18; Temp 98(O); Pulse Ox 95% ; Weight 90.72 kg; Height 5 db ft. 4 in. ; 15:00 BP 135 / 82; Pulse 77; Resp 16; Pulse Ox 97% on R/A; db 16:00 BP 131 / 77; Pulse 67; Resp 16; Pulse Ox 96% on R/A; db 17:00 BP 137 / 85; Pulse 62; Resp 18; Pulse Ox 98% on R/A; db 18:00 BP 122 / 80; Pulse 65; Resp 16; Pulse Ox 95% on R/A; db 13:55 Body Mass Index 34.33 (90.72 kg, 162.56 cm) db ED Course: 14:00 Patient arrived in ED. db 14:01 Triage completed. db 14:01 Arm band placed on Patient placed in an exam room. db 14:05 Felisha Rizzo PA-C is PHCP. sb4 14:05 Jc Holguin is Attending Physician. sb4 15:00 Inserted saline lock: 22 gauge in right antecubital area, using aseptic technique. db Blood collected. 15:10 Katerin Foster, RN is Primary Nurse. db 15:45 CT Abd/Pelvis - IV Contrast Only In Process Unspecified. EDMS 15:49 Patient has correct armband on for positive identification. Bed in low position. Call db light in reach. Side rails up X 1. Pulse ox on. NIBP on. Warm blanket given. 18:08 Artie Duke MD is Referral Physician. sb4 18:35 Provided Education on: DISCHARGE. db 18:35 No provider procedures requiring assistance completed. IV discontinued, intact, db bleeding controlled, No redness/swelling at site. Administered Medications: 15:18 Drug: NS 0.9% IV 1000 ml IV at 1 bolus Per protocol; 1000 mL bolus Route: IV; Rate: 1 db bolus; Site: right antecubital; 16:30 Follow up: Response: No adverse reaction; IV Status: Completed infusion; IV Intake: db 1000ml 15:18 Drug: Ondansetron IVP 4 mg IVP once; over 2 minutes Route: IVP; Site: right antecubital;db 17:50 Follow up: Response: No adverse reaction db 15:18 Drug: morphine IVP or IV 4 mg IVP once over 4 mins Route: IVP; Infused Over: 4 mins; db Site: right antecubital; 17:50 Follow up: Response: No adverse reaction db 16:12 Drug: Ketorolac IVP 30 mg IVP once Route: IVP; Site: right antecubital; db 17:49 Follow up: Response: No adverse reaction; Pain is decreased db 16:50 Drug: Flomax PO 0.4 mg PO once Route: PO; db 17:49 Follow up: Response: No adverse reaction db 16:55 Drug: Magnesium Sulfate IVPB 1 grams IVPB once over 1 hrs Route: IVPB; Infused Over: 1 db hrs; Site: right wrist; 17:30 Follow up: Response: No adverse reaction; IV Status: Completed infusion; IV Intake: db 100ml 17:49 Drug: Diazepam IVP 10 mg IVP once Route: IVP; Site: right wrist; db 18:20 Follow up: Response: No adverse reaction db 18:23 CANCELLED (Physician Discretion): [id number] mg IM once sb4 18:24 Drug: Hydrocodone-Acetaminophen PO (7.5 mg-325 mg) 1 tabs PO once Route: PO; db 18:35 Follow up: Response: No adverse reaction db Medication: 18:35 VIS not applicable for this client. db Intake: 16:30 IV: 1000ml; Total: 1000ml. db 17:30 IV: 100ml; Total: 1100ml. db Outcome: 18:08 Discharge ordered by . sb4 18:35 Discharged to home via wheelchair, with family, with significant other, db 18:35 Condition: stable 18:35 Discharge instructions given to patient, Instructed on discharge instructions, follow up and referral plans. Prescriptions given X 3, 18:54 Patient left the ED. db Signatures: Dispatcher [employer] Katerin Egan, RN RN Felisha Rivero PA-C PAMiky sb4
[2023-09-19] MEDS ORDERED: HYDROCODONE/APAP 7.5/325 MG TAB ONE (18:40)
[2023-09-19 19:18] VITALS: TEMP 98
[2023-09-19 19:24] VITALS: BP 122/80; O2SAT 95
== END 2023-09-19 18:54 | disposition home or self-care (01) ==
LOC: ER 13:54
DX: N20.0 Calculus of kidney (principal); M54.40 Lumbago with sciatica, unspecified side; E11.9 Type 2 diabetes mellitus without complications; I10 Essential (primary) hypertension; E03.9 Hypothyroidism, unspecified; E78.00 Pure hypercholesterolemia, unspecified; Z11.52 Encounter for screening for COVID-19; Z88.2 Allergy status to sulfonamides; Z88.8 Allergy status to other drugs, medicaments and biological substances
CPT/HCPCS: 85025; 81001; 36415; 83690; 80053; 87804 ×2; 74177; 99285; 87811; Q9967; J3475; J3360; J2405; J7030

== ENCOUNTER → 2023-11-14 | Emergency (ER) | payer OTHER ==
[~2023-11-14] MED LIST: DICYCLOMINE HCL 10 MG CAP ONE; NA CHLORIDE 0.9% 1,000 ML ONE
[2023-11-14 18:01] LABS: Absolute Lymphocytes (CBC) 1.4 K/uL (0.7-4.9); Hematocrit 40.8 % (36.0-45.0); Lymphocytes % 17.7 % (15.3-44.8); MCV 87.2 fL (80-100); MPV 8.1 fL (7.6-11.3); Platelets 249 thou/uL (152-406); RBC Red Blood Cell Count 4.68 M/uL (3.86-4.86)
[2023-11-14 18:12] LABS: Albumin 3.2 g/dL (3.4-5.0); Bilirubin Total 0.3 mg/dL (0.2-1.0); Potassium 4.3 mEq/L (3.5-5.1); Protein, Total 7.6 g/dL (6.4-8.2)
--- NOTE | 2023-11-14 18:41 | ER ---
Nurse's Notes [facility] Name: Sadia Mcpherson Age: 53 yrs Sex: Female : 1970 Arrival Date: 11/14/2023 Time: 16:15 Bed 14 Private MD: Diagnosis: COVID-19, diarrhea, dehydration Presentation: 11/14 16:30 Chief complaint: Patient states: Diagnosed with COVID on . Pt states that she cm10 is having generalized body aches, abdominal cramping and diarrhea. PT states that she has had 8 episodes of diarrhea today. PT reports having a history of C-Diff in July and symptoms feel similar. Coronavirus screen: Vaccine status: Patient reports being unvaccinated. Client denies travel out of the [place] in the last 14 days. Ebola Screen: Patient denies travel to an Ebola-affected area in the 21 days before illness onset. No symptoms or risks identified at this time. Initial Sepsis Screen: Does the patient meet any 2 criteria? No. Patient's initial sepsis screen is negative. Does the patient have a suspected source of infection? No. Patient's initial sepsis screen is negative. Risk Assessment: Do you want to hurt yourself or someone else? Patient reports no desire to harm self or others. Onset of symptoms was November 14, 2023. 16:30 Method Of Arrival: Wheelchair cm10 16:30 Acuity: JAYLEN 3 cm10 Historical: - Allergies: 16:32 Wellbutrin; cm10 16:32 tobramycin; cm10 16:32 tamsulosin; cm10 16:32 Sulfa (Sulfonamide Antibiotics); cm10 16:32 Lamictal; cm10 16:32 GABAPENTIN; cm10 16:32 Ketorolac; cm10 16:32 Minocin; cm10 - PMHx: 16:32 Diabetes mellitus; Hypertensive disorder; cm10 - Immunization history:: Adult Immunizations up to date. - Social history:: Smoking status: Patient denies any tobacco usage or history of. Screenin:24 [facility] ED Fall Risk Assessment (Adult) History of falling in the last 3 months, db including since admission No falls in past 3 months (0 pts) Score/Fall Risk Level 0 - 2 = Low Risk Oriented to surroundings, Maintained a safe environment. Abuse screen: Denies threats or abuse. Denies injuries from another. Nutritional screening: No deficits noted. Tuberculosis screening: No symptoms or risk factors identified. Assessment: 17:24 Reassessment: Patient appears in no apparent distress at this time. Patient and/or db family updated on plan of care and expected duration. Pain level reassessed. Patient is alert, oriented x 3, equal unlabored respirations, skin warm/dry/pink. STATES HAS BODY ACHES AND DX OF COVID. General: Appears in no apparent distress. comfortable, Behavior is calm, cooperative. Pain: Complains of pain in BODY. Neuro: Level of Consciousness is awake, alert, obeys commands, Oriented to person, place. Respiratory: Airway is patent Respiratory effort is even, unlabored, Respiratory pattern is regular, symmetrical. 18:15 Reassessment: Patient appears in no apparent distress at this time. Patient and/or db family updated on plan of care and expected duration. Pain level reassessed. Patient is alert, oriented x 3, equal unlabored respirations, skin warm/dry/pink. PATIENT AMBULATORY TO RESTROOM. 18:40 GI: Stools are reported to be loose. db 11/15 15:04 Reassessment: CALLED PT TO NOTIFY OF POSITIVE CDIFF LAB RESULT. CALLED PATIENT [facility] IN [place] FOR NEW FLAGYL 500 MG TID PRESCRIPTION. Vital Signs: 0203 16:30 BP 153 / 84; Pulse 82; Resp 16; Temp 97.6; Pulse Ox 98% on R/A; Pain 10/10; cm10 17:00 BP 140 / 75; Pulse 73; Resp 18; Pulse Ox 95% on R/A; db 17:30 BP 117 / 93; Pulse 72; Resp 18; Pulse Ox 96% on R/A; db 18:00 BP 130 / 74; Pulse 77; Resp 18; Pulse Ox 97% on R/A; db 18:37 BP 139 / 75; Pulse 75; Resp 18; Pulse Ox 97% on R/A; db 16:30 Pain Scale: Adult cm10 ED Course: 16:17 Patient arrived in ED. mg5 16:26 Rusty Rm MD is Attending Physician. sp3 16:32 Triage completed. cm10 16:32 Arm band placed on Patient placed in an exam room, on a stretcher. cm10 16:58 Katerin Foster, RN is Primary Nurse. db 17:00 CBC with Diff Sent. cm10 17:00 CMP Sent. cm10 17:00 Lipase Sent. cm10 17:00 Initial lab(s) drawn, by me, sent to lab. Inserted saline lock: 22 gauge in right cm10 wrist, using aseptic technique. Blood collected. 17:24 Patient has correct armband on for positive identification. Bed in low position. Call db light in reach. Side rails up X 1. 17:42 Lab(s) recollected, by me, sent to lab. db 19:34 No provider procedures requiring assistance completed. IV discontinued, intact, rv bleeding controlled, No redness/swelling at site. Pressure dressing applied. Administered Medications: 17:07 Drug: NS 0.9% IV 1000 ml IV at bolus once Route: IV; Rate: bolus; Site: right db antecubital; 19:20 Follow up: IV Status: Completed infusion; IV Intake: 1000ml rv 19:33 Drug: Dicyclomine PO 20 mg PO once Route: PO; rv 19:33 Follow up: Response: Medication administered at discharge. rv Medication: 17:24 VIS not applicable for this client. db Intake: 19:20 IV: 1000ml; Total: 1000ml. rv Outcome: 18:41 Discharge ordered by sp3 19:34 Discharged to home ambulatory, rv 19:34 Condition: good 19:34 Discharge instructions given to patient, Instructed on discharge instructions, follow up and referral plans. Demonstrated understanding of instructions, follow-up care, 19:34 Patient left the ED. rv Signatures: Toño Gillette RN RN rv Rusty Rm MD MD sp3 Katerin Foster RN RN db Malia Dwyer RN RN Belen Chino mg5 Corrections: (The following items were deleted from the chart) 17:26 17:24 Warm blanket given. db db
--- NOTE | 2023-11-14 18:41 | EDPHYS ---
Physician Documentation [facility] Name: Sadia Mcpherson Age: 53 yrs Sex: Female : 1970 Arrival Date: 11/14/2023 Time: 16:15 Bed 14 Private MD: ED Physician Rusty Rm HPI: 11/14 16:53 This 53 yrs old Female presents to ER via Wheelchair with complaints of Covid, sp3 Diarrhea, Abdominal Cramping. 16:53 53-year-old female with history of diabetes, hypertension, prior C. difficile infection sp3 was recently diagnosed with COVID and now is having GI upset, "gurgling", and diarrhea with increased flatulence. Patient is concerned about possible C. difficile infection. Patient has not been on any recent antibiotics. She denies any other symptoms including headache, fever, chest pain, shortness of breath, vomiting, rash, bleeding, or any other signs or symptoms on ROS at this time.. Historical: - Allergies: 16:32 Wellbutrin; cm10 16:32 tobramycin; cm10 16:32 tamsulosin; cm10 16:32 Sulfa (Sulfonamide Antibiotics); cm10 16:32 Lamictal; cm10 16:32 GABAPENTIN; cm10 16:32 Ketorolac; cm10 16:32 Minocin; cm10 - PMHx: 16:32 Diabetes mellitus; Hypertensive disorder; cm10 - Immunization history:: Adult Immunizations up to date. - Social history:: Smoking status: Patient denies any tobacco usage or history of. ROS: 16:54 Constitutional: Negative for fever, chills, and weight loss, Eyes: Negative for injury, sp3 pain, redness, and discharge, Neck: Negative for injury, pain, and swelling, Cardiovascular: Negative for chest pain, palpitations, and edema, Back: Negative for injury and pain, MS/Extremity: Negative for injury and deformity, Skin: Negative for injury, rash, and discoloration, Neuro: Negative for headache, weakness, numbness, tingling, and seizure, Psych: Negative for depression, anxiety, suicide ideation, homicidal ideation, and hallucinations, Allergy/Immunology: Negative for hives, rash, and allergies, Endocrine: Negative for neck swelling, polydipsia, polyuria, polyphagia, and marked weight changes, Hematologic/Lymphatic: Negative for swollen nodes, abnormal bleeding, and unusual bruising, 16:54 All other systems are negative, Exam: 16:55 Constitutional: This is a well developed, well nourished patient who is awake, alert, sp3 and in no acute distress. Head/Face: Normocephalic, atraumatic. Eyes: Pupils equal round and reactive to light, extra-ocular motions intact. Lids and lashes normal. Conjunctiva and sclera are non-icteric and not injected. Cornea within normal limits. Periorbital areas with no swelling, redness, or edema. ENT: Nares patent. No nasal discharge, no septal abnormalities noted. External auditory canals are clear. Oropharynx with no redness, swelling, or masses, exudates, or evidence of obstruction, uvula midline. Mucous membranes moist. Neck: Trachea midline, no thyromegaly or masses palpated, and no cervical lymphadenopathy. Supple, full range of motion without nuchal rigidity, or vertebral point tenderness. No Meningismus. Chest/axilla: Normal chest wall appearance and motion. Nontender with no deformity. No lesions are appreciated. Cardiovascular: Regular rate and rhythm with a normal S1 and S2. No gallops, murmurs, or rubs. Normal PMI, no JVD. No pulse deficits. Respiratory: Lungs have equal breath sounds bilaterally, clear to auscultation and percussion. No rales, rhonchi or wheezes noted. No increased work of breathing, no retractions or nasal flaring. Back: No spinal tenderness. No costovertebral tenderness. Full range of motion. Skin: Warm, dry with normal turgor. Normal color with no rashes, no lesions, and no evidence of cellulitis. MS/ Extremity: Pulses equal, no cyanosis. Neurovascular intact. Full, normal range of motion. Neuro: Awake and alert, GCS 15, oriented to person, place, time, and situation. Cranial nerves II-XII grossly intact. Motor strength 5/5 in all extremities. Sensory grossly intact. Cerebellar exam normal. Normal gait. Psych: Awake, alert, with orientation to person, place and time. Behavior, mood, and affect are within normal limits. 16:55 Abdomen/GI: Abdomen diffusely tender mild in nature with increased bowel sounds., Vital Signs: 16:30 BP 153 / 84; Pulse 82; Resp 16; Temp 97.6; Pulse Ox 98% on R/A; Pain 10/10; cm10 17:00 BP 140 / 75; Pulse 73; Resp 18; Pulse Ox 95% on R/A; db 17:30 BP 117 / 93; Pulse 72; Resp 18; Pulse Ox 96% on R/A; db 18:00 BP 130 / 74; Pulse 77; Resp 18; Pulse Ox 97% on R/A; db 18:37 BP 139 / 75; Pulse 75; Resp 18; Pulse Ox 97% on R/A; db 16:30 Pain Scale: Adult cm10 MDM: 16:35 Patient medically screened. sp3 16:55 Data reviewed: vital signs, nurses notes, lab test result(s). ED course: 53-year-old sp3 female with new COVID-19 and now diarrhea. Her main concern is C. difficile which we will check for if she gets a sample. Will check general electrolytes and administer IV fluids. CT scan currently not indicated. Vital signs are normal and patient is in no acute distress. Probable discharge home after review of workup. Differential diagnosis includes COVID induced diarrhea, electrolyte abnormality, other viral syndrome, enteritis. I am not highly concerned about , [employer], or vascular etiologies for her symptoms.. 18:40 ED course: Laboratory values reviewed. No significant abnormalities found. We will call sp3 patient with any abnormal C. difficile results. Patient will be safely discharged home at this time.. 11/14 16:35 Order name: CBC with Diff; Complete Time: 18:35 3 11/14 16:35 Order name: CMP; Complete Time: 18:35 3 11/14 16:35 Order name: Lipase; Complete Time: 18:35 3 11/14 16:35 Order name: CDIFF 3 11/14 16:35 Order name: IV Saline Lock; Complete Time: 17:00 3 11/14 16:35 Order name: Labs collected and sent; Complete Time: 17:00 3 11/14 17:17 Order name: Labs - recollect needed: all tubes; Complete Time: 17:38 bc6 Administered Medications: 17:07 Drug: NS 0.9% IV 1000 ml IV at bolus once Route: IV; Rate: bolus; Site: right db antecubital; 19:20 Follow up: IV Status: Completed infusion; IV Intake: 1000ml rv 19:33 Drug: Dicyclomine PO 20 mg PO once Route: PO; rv 19:33 Follow up: Response: Medication administered at discharge. rv Disposition Summary: 11/14/23 18:41 Discharge Ordered Notes: Location: Home sp3 Condition: Stable sp3 Diagnosis - COVID-19, diarrhea, dehydration sp3 Followup: sp3 - With: Private Physician - When: Upon discharge from the Emergency Department - Reason: Continuance of care Discharge Instructions: - Discharge Summary Sheet sp3 - COVID-19 sp3 Forms: - Medication Reconciliation Form sp3 - Thank You Letter sp3 - Antibiotic Education sp3 - Prescription Opioid Use sp3 - Patient Portal Instructions sp3 - Leadership Thank You Letter sp3 Signatures: Dispatcher [employer] Calli Mitchell, RN RN Toño Noel RN RN rv Rusty Rm MD MD sp3 Katerin Foster RN SILVIA db Akosua Lindsey 6 Malia Dwyer RN RN cm10
[2023-11-14 19:22] LABS: C.diff Antigen/Toxin Ag pos : Tox neg (NEG : NEG)
[2023-11-14 20:36] VITALS: BP 139/75; TEMP 97.6; O2SAT 97
[2023-11-15 14:34] LABS: C.diff Antigen/Toxin Ag pos : Tox pos (NEG : NEG)
== END ==
LOC: ER 16:15
DX: U07.1 COVID-19 (principal); E86.0 Dehydration; E11.9 Type 2 diabetes mellitus without complications; I10 Essential (primary) hypertension; Z88.1 Allergy status to other antibiotic agents; Z88.2 Allergy status to sulfonamides; Z88.8 Allergy status to other drugs, medicaments and biological substances
CPT/HCPCS: 85025; 36415; 87324 ×2; 83690; 80053; J7030; 87493

== ENCOUNTER 2023-11-21 11:10 | Inpatient (IN) | payer OTHER ==
[2023-11-21] MEDS ORDERED: ONDANSETRON 4 MG/2 ML VIAL ONE ×2 (11:22→16:08)
[2023-11-21] MEDS ORDERED: NA CHLORIDE 0.9% 1,000 ML ONE (11:22)
[2023-11-21 12:08] LABS: Absolute Lymphocytes (CBC) 0.3 K/uL (0.7-4.9); Hematocrit 48.9 % (36.0-45.0); Lymphocytes % 4.1 % (15.3-44.8); MCV 85.9 fL (80-100); MPV 8.4 fL (7.6-11.3); Platelets 215 thou/uL (152-406); RBC Red Blood Cell Count 5.69 M/uL (3.86-4.86)
[2023-11-21 12:20] LABS: Albumin 3.6 g/dL (3.4-5.0); Bilirubin Total 0.4 mg/dL (0.2-1.0); Protein, Total 7.9 g/dL (6.4-8.2)
[2023-11-21] MEDS ORDERED: DICYCLOMINE HCL 20 MG/2 ML AMP IM ONE (12:29)
[2023-11-21 12:54] LABS: Platelet Estimate ADEQ; White Blood Cell Scan OK (OK)
[2023-11-21 12:55] LABS: Blood Morphology Comment NOT SEEN (NOT SEEN)
--- NOTE | 2023-11-21 13:50 | RAD REPORT ---
EXAM DESCRIPTION: CTAbdomen Pelvis W Contrast - 11/21/2023 1:40 pm CLINICAL HISTORY: ABD PAIN COMPARISON: Abdomen Pelvis W Contrast dated 09/27/2023; Abdomen Pelvis W Contrast dated 3; Abdomen Pelvis W Contrast dated 08/04/2023; Abdomen Pelvis W Contrast dated 06/22/2023 TECHNIQUE: CT of the abdomen and pelvis was performed. All CT scans are performed using dose optimization technique as appropriate and may include automated exposure control or mA/KV adjustment according to patient size. FINDINGS: Lower chest: No acute abnormality. Bilateral breast prostheses. Liver: No acute abnormality or suspicious lesions. Biliary: No biliary ductal dilatation. Stomach: No significant focal abnormality. Duodenum: No significant focal abnormality. Pancreas: No significant abnormality. Spleen: No significant abnormality. Adrenal: No suspicious lesions. Kidney/ureter: No hydronephrosis. 9 mm stone left kidney. Left renal scarring. Too small to character ize and/or benign appearing renal lesions are noted. Retroperitoneum: No retroperitoneal adenopathy. Vascular: No aneurysm. Bowel: No significant focal abnormality. Peritoneum: No ascites or free air. Small fat containing umbilical hernia . Bladder: Grossly unremarkable. Reproductive: No adnexal masses. Bones: No acute fracture. Moderate to severe disc height loss at L4-5 and L5-S1. Other: n/a IMPRESSION: No acute intra-abdominal or pelvic finding. Nonobstructing left nephrolithiasis. Normal appendix .
--- NOTE | 2023-11-21 14:55 | ER ---
Nurse's Notes [facility] Name: Sadia Mcpherson Age: 53 yrs Sex: Female : 1970 Arrival Date: 11/21/2023 Time: 11:10 Bed 13 Private MD: Diagnosis: SARS-associated coronavirus as the cause of diseases classified elsewhere;Weakness;Dehydration;Clotridoides difficile Presentation: 11/21 11:15 Chief complaint: EMS states: Pt was seen here Thursday and was diagnosed with C-DIFF, she rs5 was discharged home with abx. Pt symptoms have not improved and abdominal pain and diarrhea has become gradually worse. Coronavirus screen: chills, fever, nausea. Ebola Screen: No symptoms or risks identified at this time. Initial Sepsis Screen: Does the patient meet any 2 criteria? HR > 90 bpm. Yes Does the patient have a suspected source of infection? No. Patient's initial sepsis screen is negative. Risk Assessment: Do you want to hurt yourself or someone else? Patient reports no desire to harm self or others. Onset of symptoms was November 21, 2023. 11:15 Method Of Arrival: EMS: [facility] rs5 11:15 Acuity: JAYLEN 3 rs5 Historical: - Allergies: 11:18 GABAPENTIN; rs5 11:18 Ketorolac; rs5 11:18 Lamictal; rs5 11:18 Minocin; rs5 11:18 Sulfa (Sulfonamide Antibiotics); rs5 11:18 tamsulosin; rs5 11:18 tobramycin; rs5 11:18 Wellbutrin; rs5 - PMHx: 11:18 diabetes mellitus; Hypertensive disorder; Anxiety; Addrenal Insufficiency; Insomnia; rs5 - PSHx: 11:18 None; rs5 - Immunization history:: Adult Immunizations up to date. - Social history:: Smoking status: Patient denies any tobacco usage or history of. Screenin:20 [facility] ED Fall Risk Assessment (Adult) History of falling in the last 3 months, rs5 including since admission No falls in past 3 months (0 pts) Confusion or Disorientation No (0 pts) Intoxicated or Sedated No (0 pts) Impaired Gait No (0 pts) Mobility Assist Device Used No (0 pt) Altered Elimination No (0 pt) Score/Fall Risk Level 0 - 2 = Low Risk Oriented to surroundings, Maintained a safe environment. Abuse screen: Denies threats or abuse. Nutritional screening: No deficits noted. Tuberculosis screening: No symptoms or risk factors identified. Assessment: 11:20 General: Appears in no apparent distress. uncomfortable, Behavior is calm, cooperative. rs5 Pain: Complains of pain in abdomen generalized Pain currently is 3 out of 10 on a pain scale. Quality of pain is described as aching, Is continuous. 11:20 Neuro: Level of Consciousness is awake, alert, obeys commands, Oriented to person, rs5 place, time, situation. Cardiovascular: Rhythm is regular. Respiratory: Respiratory effort is even, unlabored, Respiratory pattern is regular, symmetrical. GI: Abdomen is round non-distended, Abd is soft and non tender X 4 quads. Reports diarrhea, nausea. : No signs and/or symptoms were reported regarding the genitourinary system. EENT: No signs and/or symptoms were reported regarding the EENT system. Derm: Skin is intact, Skin is pink, warm \T\ dry. Musculoskeletal: Range of motion: intact in all extremities. 11:55 Reassessment: . Pain: Complains of pain in abdomen generalized Pain currently is 6 out rs5 of 10 on a pain scale. Quality of pain is described as aching, Is continuous. 11:56 Reassessment: provider notified pt is experiencing pain. rs5 13:05 Reassessment: Patient and/or family updated on plan of care and expected duration. Pain rs5 level reassessed. Patient is alert, oriented x 3, equal unlabored respirations, skin warm/dry/pink. Patient denies pain at this time. Patient states feeling better. Patient states symptoms have improved. 14:00 Reassessment: Patient and/or family updated on plan of care and expected duration. Pain rs5 level reassessed. Patient is alert, oriented x 3, equal unlabored respirations, skin warm/dry/pink. Pain: Complains of pain in abdomen generalized Pain currently is 7 out of 10 on a pain scale. Quality of pain is described as aching, Is continuous. GI: Reports nausea. 14:05 Reassessment: Provider notified pt is experiencing pain and nausea. rs5 15:01 Reassessment: To bedside for PO challenge crackers and water provided . rs5 15:20 Reassessment: Patient is alert, oriented x 3, equal unlabored respirations, skin rs5 warm/dry/pink. Awaiting room assignment, pt aware. Denies any complaints at this time. . 15:20 GI: Patient currently denies pain. rs5 17:00 Reassessment: Patient and/or family updated on plan of care and expected duration. Pain rs5 level reassessed. Patient is alert, oriented x 3, equal unlabored respirations, skin warm/dry/pink. Patient states feeling better. provider at bedside. Vital Signs: 11:15 BP 137 / 79; Pulse 105; Resp 18; Temp 99.5(O); Pulse Ox 99% ; rs5 13:05 BP 135 / 86; Pulse 102; Resp 18; Pulse Ox 99% on R/A; rs5 14:12 BP 132 / 84; Pulse 99; Resp 17; Pulse Ox 99% on R/A; rs5 17:00 BP 137 / 88; Pulse 92; Resp 17; Pulse Ox 99% on R/A; rs5 ED Course: 11:15 Patient arrived in ED. rs5 11:15 Ashlee Cavanaugh FNP-C is PHCP. kb 11:15 Art Monroy MD is Attending Physician. kb 11:18 Triage completed. rs5 11:20 Patient has correct armband on for positive identification. Bed in low position. Call rs5 light in reach. Side rails up X2. 11:21 Juan Chambers, RN is Primary Nurse. rs5 11:30 Inserted saline lock: 24 gauge in right upper arm, using aseptic technique. rs5 11:45 IV discontinued, intact, bleeding controlled, No redness/swelling at site. Pressure rs5 dressing applied, IV does not flush or draw. 12:05 Inserted saline lock: 22 gauge in left wrist, using aseptic technique. ds4 13:42 CT Abd/Pelvis - IV Contrast Only In Process Unspecified. EDMS 14:12 No provider procedures requiring assistance completed. rs5 14:54 Tray Robbins MD is Hospitalizing Provider. kb Administered Medications: 11:25 Drug: NS 0.9% IV 1000 ml IV at 1 bolus Per protocol; 1000 mL bolus Route: IV; Rate: 1 rs5 bolus; Site: right upper arm; 12:00 Follow up: Response: No adverse reaction rs5 12:30 Drug: Dicyclomine IM 20 mg IM once Route: IM; Site: left deltoid; rs5 13:00 Follow up: Response: No adverse reaction; Pain is decreased rs5 12:48 Drug: Ondansetron IVP 4 mg IVP once; over 2 minutes Route: IVP; Site: right upper arm; rs5 13:12 Follow up: Response: No adverse reaction rs5 14:20 Drug: Zofran IM 4 mg IM once {Note: 4mg Zofran adm IV per MD orders to 22g left wrist.} rs5 Route: IM; Site: Other; 17:02 Not Given (Patient Refused): ns 0.9% 1000 ml IV at 1000 ml once rs5 17:06 Drug: NS 0.9% IV 1000 ml IV at 1 bolus Per protocol; 1000 mL bolus Route: IV; Rate: 1 rs5 bolus; Site: left wrist; 17:25 Follow up: Response: No adverse reaction rs5 Medication: 14:12 VIS not applicable for this client. rs5 Outcome: 14:55 Decision to Hospitalize by Provider. kb 17:01 Admitted to ER Hold. Please see [facility] for further documentation. rs5 17:01 Condition: stable 17:01 Instructed on the need for admit, Demonstrated understanding of instructions, 19:06 Patient left the ED. rs5 Signatures: Dispatcher [employer] EDAshlee Ramires, SYRUPER-C SYRUPER-Radha Cornell, RN RN aa5 Josesito Doherty ds4 Juan Chambers RN RN rs5 Corrections: (The following items were deleted from the chart) 11:20 11:18 PMHx: Hypertensive disorder; rs5 rs5 16:57 15:20 Reassessment: Patient is alert, oriented x 3, equal unlabored respirations, skin rs5 warm/dry/pink. Awaiting room assignment, pt aware. Denies any complaints at this time. . aa5 17:00 16:59 Zofran IM 4 mg IM in Other; 4mg Zofran adm IV per MD orders to 22g left wrist rs5 rs5
--- NOTE | 2023-11-21 14:55 | EDPHYS ---
Physician Documentation [facility] Name: Sadia Mcpherson Age: 53 yrs Sex: Female : 1970 Arrival Date: 11/21/2023 Time: 11:10 Bed 13 Private MD: ED Physician Art Monroy HPI: 11/21 14:57 This 53 yrs old Female presents to ER via EMS with complaints of n/v/d, abd pain. kb 14:57 Pt is a 53 year old female who presents for nausea and vomiting that started at 0300. kb Reports she was diagnosed with c. diff last week and the diarrhea and abd pain has been worse today as well. Denies fever. States she has been very weak because of all of the diarrhea, states she had to lay on the floor and just have diarrhea on a towel because she didn't feel like she could get up. . Historical: - Allergies: 11:18 GABAPENTIN; rs5 11:18 Ketorolac; rs5 11:18 Lamictal; rs5 11:18 Minocin; rs5 11:18 Sulfa (Sulfonamide Antibiotics); rs5 11:18 tamsulosin; rs5 11:18 tobramycin; rs5 11:18 Wellbutrin; rs5 - PMHx: 11:18 diabetes mellitus; Hypertensive disorder; Anxiety; Addrenal Insufficiency; Insomnia; rs5 - PSHx: 11:18 None; rs5 - Immunization history:: Adult Immunizations up to date. - Social history:: Smoking status: Patient denies any tobacco usage or history of. ROS: 14:57 Constitutional: Negative for fever, chills, and weight loss, kb 14:57 Abdomen/GI: Positive for abdominal pain, nausea, vomiting, and diarrhea, 14:57 All other systems are negative, Exam: 15:00 Constitutional: This is a well developed, well nourished patient who is awake, alert, kb and in no acute distress. Head/Face: Normocephalic, atraumatic. ENT: Moist Mucous membranes Cardiovascular: Regular rate Respiratory: Respirations even and unlabored. No increased work of breathing. Talking in full sentences Skin: Warm, dry with normal turgor. Normal color. MS/ Extremity: Pulses equal, no cyanosis. Neurovascular intact. Full, normal range of motion. Neuro: Awake and alert, GCS 15, oriented to person, place, time, and situation. Moves all extremities. Normal gait. 15:00 Abdomen/GI: Inspection: abdomen appears normal, Bowel sounds: normal, active, Palpation: soft, in all quadrants, mild abdominal tenderness, in all quadrants, Vital Signs: 11:15 BP 137 / 79; Pulse 105; Resp 18; Temp 99.5(O); Pulse Ox 99% ; rs5 13:05 BP 135 / 86; Pulse 102; Resp 18; Pulse Ox 99% on R/A; rs5 14:12 BP 132 / 84; Pulse 99; Resp 17; Pulse Ox 99% on R/A; rs5 17:00 BP 137 / 88; Pulse 92; Resp 17; Pulse Ox 99% on R/A; rs5 MDM: 11:15 Patient medically screened. kb 15:00 Differential diagnosis: c.diff, dehydration, abnormal electrolytes. Data reviewed: kb vital signs, nurses notes. Consideration of Admission/Observation Patient was admitted/placed on observation. Escalation of care including admission/observation considered. Management of patient was discussed with the following: Hospitalist: Hospitalist team, accepted for admission under Dr Robbins. Historians other than the Patient: EMS: [facility]. Counseling: I had a detailed discussion with the patient and/or guardian regarding the historical points, exam findings, and any diagnostic results supporting the discharge/admit diagnosis, lab results, radiology results, the need for further work-up and treatment in the hospital. 11/21 11:15 Order name: CBC with Diff; Complete Time: 12:57 kb 11/21 11:15 Order name: CMP; Complete Time: 12:27 kb 11/21 11:15 Order name: Lipase; Complete Time: 12:27 kb 11/21 11:15 Order name: Urinalysis w/ reflexes; Complete Time: 17:52 kb 11/21 12:55 Order name: CBC Smear Scan; Complete Time: 12:57 EDMS 11/21 17:12 Order name: CBC with Automated Diff EDMS 11/21 17:12 Order name: CBC with Automated Diff EDMS 11/21 17:12 Order name: Comprehensive Metabolic Panel EDMS 11/21 17:12 Order name: Comprehensive Metabolic Panel EDMS 11/21 17:13 Order name: Procalcitonin EDMS 11/21 11:15 Order name: CT Abd/Pelvis - IV Contrast Only; Complete Time: 13:52 kb 11/21 17:12 Order name: CONS Physician Consult EDMS 11/21 11:15 Order name: IV Saline Lock; Complete Time: 12:05 kb 11/21 11:15 Order name: Labs collected and sent; Complete Time: 12:05 kb 11/21 11:18 Order name: Isolation: contact; Complete Time: 11:21 kb 11/21 13:54 Order name: PO challenge; Complete Time: 16:56 kb Administered Medications: 11:25 Drug: NS 0.9% IV 1000 ml IV at 1 bolus Per protocol; 1000 mL bolus Route: IV; Rate: 1 rs5 bolus; Site: right upper arm; 12:00 Follow up: Response: No adverse reaction rs5 12:30 Drug: Dicyclomine IM 20 mg IM once Route: IM; Site: left deltoid; rs5 13:00 Follow up: Response: No adverse reaction; Pain is decreased rs5 12:48 Drug: Ondansetron IVP 4 mg IVP once; over 2 minutes Route: IVP; Site: right upper arm; rs5 13:12 Follow up: Response: No adverse reaction rs5 14:20 Drug: Zofran IM 4 mg IM once {Note: 4mg Zofran adm IV per MD orders to 22g left wrist.} rs5 Route: IM; Site: Other; 17:02 Not Given (Patient Refused): ns 0.9% 1000 ml IV at 1000 ml once rs5 17:06 Drug: NS 0.9% IV 1000 ml IV at 1 bolus Per protocol; 1000 mL bolus Route: IV; Rate: 1 rs5 bolus; Site: left wrist; 17:25 Follow up: Response: No adverse reaction rs5 Disposition Summary: 11/21/23 14:55 Hospitalization Ordered Notes: Hospitalization Status: Observation kb Provider: Tray Robbins Location: Telemetry/MedSurg (observation) kb Condition: Stable kb Problem: new kb Symptoms: are unchanged kb Bed/Room Type: Standard Room Assignment: [id number](11/21/23 17:29) eb Diagnosis - SARS-associated coronavirus as the cause of diseases classified elsewhere kb - Weakness kb - Dehydration kb - Clotridoides difficile kb Forms: - Medication Reconciliation Form kb - SBAR form kb - Leadership Thank You Letter kb Addendum: 11/23/2023 10:10 I was immediately available for consultation during this patient's visit. I did not e c2 personally see the patient or discuss the patient with the ASAD. . Signatures: Dispatcher [employer] Ashlee Barrios, WRINKLE CHASER-C WRINKLE CHASER-Radha Cornell RN RN aa5 Oneyda Palafox Ricky, RN RN rs5 Art Monroy MD MD ec2 Corrections: (The following items were deleted from the chart) 11/21 11:20 11:18 PMHx: Hypertensive disorder; rs5 rs5 17:29 14:55 kb eb
--- NOTE | 2023-11-21 17:14 | P.HP ---
Certification for Inpatient Patient admitted to: Inpatient With expected LOS: >2 Midnights Patient will require the following post-hospital care: None Practitioner: I am a practitioner with admitting privileges, knowledge of patient current condition, hospital course, and medical plan of care. Services: Services provided to patient in accordance with Admission requirements found in Title 42 Section 412.3 of the Code of Federal Regulations <Lynnette Robbinsemmy Brian - Last Filed: 11/22/23 10:24> Patient History <CollinjonyShobha - Last Filed: 11/22/23 09:03> Date of Service: 11/21/23 Reason for admission: C. diff colitis-recurrence; COVID-19; Adrenal insufficiency History of Present Illness: Patient 53-year-old female came to the hospital with persistent diarrhea. Patient had come into the emergency room a couple days ago with similar complaints. Patient was found to have C. difficile colitis. Patient was sta rted on Flagyl. Patient had C. difficile a few months ago and was on vancomycin. Patient had a recurrence and plan is to start her on Dificid. Patient will be admitted to the hospital for further evaluation. Patient was orthostatic on arrival. She states she was crawling on the floor at home because she was fainting whenever she was standing. She will need IV hydration and will need to get control of her diarrhea. Will give her an antidiarrheal medication and will also start her on Questran. Patient will be admitted for inpatient hospitalization. - Past Medical/Surgical History Diabetic: Yes -: depression -: HTN -: Hypothyroidism -: Kidney stones -: kidney stone surgery - Family History Father Medical History: Heart disease Mother Medical History: Heart disease - Social History Smoking Status: Former smoker Alcohol use: Yes CD- Drugs: No Caffeine use: No <Lynnette Robbinsemmy Brian - Last Filed: 11/22/23 10:24> Allergies bupropion [From Wellbutrin] Allergy (Verified 08/31/20 03:04) Unknown gabapentin Allergy (Verified 08/31/20 03:04) Unknown ketorolac Allergy (Verified 08/31/20 03:04) Unknown lamotrigine [From Lamictal] Allergy (Verified 08/31/20 03:04) Unknown Sulfa (Sulfonamide Antibiotics) Allergy (Verified 08/31/20 03:04) Unknown tobramycin Allergy (Verified 08/31/20 03:04) Unknown Sulfa (Sulfonam Allergy (Uncoded 11/04/16 06:19) Unknown Sulfa (Sulfonami Allergy (Uncoded 11/11/16 15:25) Unknown Sulfa (Sulfonamide Antib Allergy (Uncoded 11/02/16 22:14) Unknown Home Medications: Levothyroxine Sodium 137 mcg PO DAILY 08/31/20 Trazodone HCl 1 tab PO BEDTIME 08/31/20 carvediloL [Carvedilol] 12.5 mg PO BID 08/31/20 clonazePAM [Clonazepam] 0.25 mg PO BIDP PRN 08/31/20 Insulin Glargine,Hum.rec.anlog [Lantus Solostar] 45 units SQ DAILY 06/22/22 Quetiapine [Seroquel*] 1 tab PO BEDTIME 06/22/22 Hydrocodone/Acetaminophen [Hydrocodon-Acetaminophen 5-325] 1 each PO BIDP PRN 11/22/23 Review of Systems 10-point ROS is otherwise unremarkable <Tray Robbins - Last Filed: 11/22/23 10:24> Physical Examination - Physical Exam General: Alert, In no apparent distress, Oriented x3 HEENT: Atraumatic, Normocephalic Neck: Supple, JVD not distended Respiratory: Clear to auscultation bilaterally, Normal air movement Cardiovascular: No edema, Normal pulses Gastrointestinal: No rebound, Hyperactive, Tenderness Musculoskeletal: No clubbing, No swelling Integumentary: No rashes, No breakdown Neurological: Normal speech, Normal strength at 5/5 x4 extr - Studies Laboratory Data (last 24 hrs) 11/21/23 11/21/23 11:50 11:50 WBC 8.40 Hgb 16.6 H Hct 48.9 H Plt Count 215 Sodium 139 Potassium 5.0 BUN 17 Creatinine 1.04 H Glucose 246 H Total Bilirubin 0.4 AST 13 L ALT 36 Alkaline Phosphatase 86 Lipase 25 <Shobha Brizuela - Last Filed: 11/22/23 09:03> - Vital Signs Temperature: 98 F (reviewed) - Physical Exam General: Alert, In no apparent distress HEENT: Atraumatic, PERRLA, Mucous membr. moist/pink, EOMI, Sclerae nonicteric Neck: Supple, 2+ carotid pulse no bruit, No LAD, Without JVD or thyroid abnormality Respiratory: Clear to auscultation bilaterally, Normal air movement Cardiovascular: Regular rate/rhythm, Normal S1 S2 Gastrointestinal: Normal bowel sounds, Soft and benign, Non-distended, No rebound, No guarding, Tenderness Musculoskeletal: No clubbing, No swelling, No tenderness Integumentary: No rashes Neurological: Normal gait, Normal speech, Normal strength at 5/5 x4 extr, Normal tone, Sensation intact, Cranial nerves 3-12 intact, Normal affect Lymphatics: No axilla or inguinal lymphadenopathy - Studies Laboratory Data (last 24 hrs) 11/21/23 11/21/23 11:50 11:50 WBC 8.40 Hgb 16.6 H Hct 48.9 H Plt Count 215 Sodium 139 Potassium 5.0 BUN 17 Creatinine 1.04 H Glucose 246 H Total Bilirubin 0.4 AST 13 L ALT 36 Alkaline Phosphatase 86 Lipase 25 <Tray Robbins - Last Filed: 11/22/23 10:24> Assessment & Plan - Plan Assessment plan C. difficile Elevated procalcitonin GI consult Dr. Hernández P.o. vancomycin, IV fluids, as needed antiemetics, as needed analgesia Stool samples Telemetry, O2 2 L keep sats greater than 92% Dehydration Orthostatic hypotension IV fluids Trend electrolytes replace. Trend vital Acute kidney injury likely secondary to prerenal dehydration improved BUN 17 creatinine 1.04 History of hypertension, History of hypothyroidism, Diabetes type 2 Accu-Cheks ACHS, Full code DVT SCDs Diet full liquid Critical Care: No Time Spent Managing PTS Care (In Minutes): 55 <Shobha Brizuela - Last Filed: 11/22/23 09:03> - Problems (Diagnosis) (1) History of adrenal insufficiency Current Visit: Yes Status: Acute (2) C. difficile diarrhea Current Visit: No Status: Acute (3) Depression Current Visit: No Status: Acute (4) Hypothyroidism Current Visit: No Status: Acute (5) Insulin dependent type 2 diabetes mellitus Current Visit: No Status: Acute (6) Hyperlipidemia Current Visit: No Status: Chronic Qualifiers: Hyperlipidemia type: mixed hyperlipidemia Qualified Code(s): E78.2 - Mixed hyperlipidemia (7) Hypertension Current Visit: No Status: Chronic Qualifiers: Hypertension type: essential hypertension Qualified Code(s): I10 - Essential (primary) hypertension - Plan Assessment plan C. difficile Elevated procalcitonin GI consult Dr. Hernández P.o. Dificid, IV fluids, as needed antiemetics, as needed analgesia Stool samples Telemetry, O2 2 L keep sats greater than 92% Dehydration Orthostatic hypotension IV fluids Trend electrolytes replace. Trend vital Acute kidney injury likely secondary to prerenal dehydration improved BUN 17 creatinine 1.04 History of hypertension, History of hypothyroidism, Diabetes type 2 Accu-Cheks ACHS, Adrenal insufficiency-hydrocortisone IV. Full code DVT SCDs Diet full liquid Discharge Plan: Home Plan to discharge in: 24 Hours - Advance Directives Does patient have a Living Will: No Does patient have a Durable POA for Healthcare: No - Code Status/Comfort Care Code Status Assessed: Yes Code Status: Full Code <Tray Robbins - Last Filed: 11/22/23 10:24>
[2023-11-21 17:33] LABS: Urine Bilirubin NEGATIVE (Negative); Urine Blood Negative (Negative); Urine Clarity Clear (Clear); Urine Color Light-Yellow (Yellow); Urine Glucose NEGATIVE (Negative); Urine Protein NEGATIVE (Negative); Urine Urobilinogen Normal (Normal); Urine pH 6.5 (5.0-7.0)
[2023-11-21 17:36] LABS: Specific Gravity > 1.030 (1.005-1.030)
[2023-11-21] MEDS: MORPHINE 2 MG/ML SYR IV PRN (19:31)
[2023-11-21] MEDS: NA CHLORIDE 0.9% 1,000 ML IV SCH (19:32)
[2023-11-21] MEDS: LACTOBACILLUS/ACIDOPHILUS TAB PO SCH (19:32)
[2023-11-21] MEDS: ACETAMINOPHEN 500 MG TAB PO PRN (19:32)
[2023-11-21] MEDS: DIPHENOX/ATROP SULF 1 TAB PO SCH (19:32)
[2023-11-21] MEDS: VANCOMYCIN ORAL SOLN 250 MG/5 ML OSYR PO SCH (20:00)
[2023-11-21] MEDS: VANCOMYCIN 500 MG/VIAL ONE (20:43)
[2023-11-21] MEDS: FIDAXOMICIN 200 MG TABLET PO SCH (21:00)
[2023-11-21] MEDS: WATER FOR INJ,STERILE 10 ML ONE (21:28)
[2023-11-21] MEDS: ONDANSETRON 4 MG/2 ML VIAL IV PRN (23:29)
[2023-11-22] MEDS: HYDROCORTISONE SUC 100 MG INJ IV SCH (00:47)
[2023-11-22 01:49] VITALS: BMI 34.3
[2023-11-22] MEDS: VANCOMYCIN 500 MG/VIAL ONE (02:45)
[2023-11-22] MEDS: WATER FOR INJ,STERILE 10 ML ONE (02:46)
[2023-11-22 06:32] LABS: Absolute Lymphocytes (CBC) 0.6 K/uL (0.7-4.9); Hematocrit 37.9 % (36.0-45.0); Lymphocytes % 11.3 % (15.3-44.8); MCV 86.9 fL (80-100); MPV 8.3 fL (7.6-11.3); Platelets 188 thou/uL (152-406); RBC Red Blood Cell Count 4.36 M/uL (3.86-4.86)
[2023-11-22 06:44] LABS: Albumin 2.5 g/dL (3.4-5.0); Bilirubin Total 0.3 mg/dL (0.2-1.0); Potassium 3.5 mEq/L (3.5-5.1); Protein, Total 5.9 g/dL (6.4-8.2)
[2023-11-22 07:35] LABS: SARS-COV-2 RT PCR POSITIVE (NEGATIVE)
--- NOTE | 2023-11-22 08:40 | P.PN ---
Subjective Date of Service: 11/22/23 Chief Complaint: C. diff colitis-recurrence; COVID-19; Adrenal insufficiency Reported 3 bowel movements overnight, failed outpatient p.o. vancomycin for C. difficile, no reported fever Review of Systems per HPI Physical Examination - Vital Signs Temperature: 97.4 F Blood Pressure: 135/60 Pulse: 72 Respirations: 18 Pulse Ox (%): 98 - Physical Exam General: Alert, In no apparent distress, Oriented x3 HEENT: Atraumatic, Normocephalic Neck: JVD not distended Respiratory: Clear to auscultation bilaterally, Normal air movement Cardiovascular: No edema, Normal pulses Gastrointestinal: Tenderness (generalized) Musculoskeletal: No clubbing, No swelling Neurological: Normal speech, Normal strength at 5/5 x4 extr - Studies Laboratory Data (last 24 hrs) 11/21/23 11/21/23 11:50 11:50 WBC 8.40 Hgb 16.6 H Hct 48.9 H Plt Count 215 Sodium 139 Potassium 5.0 BUN 17 Creatinine 1.04 H Glucose 246 H Total Bilirubin 0.4 AST 13 L ALT 36 Alkaline Phosphatase 86 Lipase 25 Assessment And Plan - Plan Assessment plan C. difficile failed outpatient tx po vancomycin Elevated procalcitonin IV fluids, as needed antiemetics, as needed analgesia Stool samples Telemetry, O2 2 L keep sats greater than 92% Lactobacillus, Solu-Cortef, Fidamxocin 200 mg po BID x 10 days contact isolation Dehydration Orthostatic hypotension IV fluids Trend electrolytes replace. Trend vital Acute kidney injury likely secondary to prerenal dehydration improved BUN 17 creatinine 1.04 History of hypertension History of hypothyroidism Diabetes type 2 Accu-Cheks, sliding scale once Full code DVT Diet full liquid Discharge Plan: Home - Code Status/Comfort Care Code Status: Full Code Critical Care: No Time Spent Managing PTS Care (In Minutes): 35
[2023-11-22] MEDS ORDERED: GLUCAGON 1 MG/VIAL IM PRN (09:01)
[2023-11-22] MEDS ORDERED: D50W 25 GM/50 ML SYRINGE IV PRN (09:01)
[2023-11-22] MEDS: VANCOMYCIN ORAL SOLN 250 MG/5 ML OSYR PO SCH (09:06)
[2023-11-22] MEDS ORDERED: D10W 125 ML IV PRN (09:11)
[2023-11-22] MEDS: INSULIN REGULAR (HUMAN) 100 UNIT/ML SQ SCH (11:30)
[2023-11-22] MEDS: FIDAXOMICIN 200 MG TABLET PO SCH (12:44)
[2023-11-22] MEDS: HYDROCODONE/APAP 5/325 MG TAB PO PRN (20:19)
[2023-11-22] MEDS: QUETIAPINE 100MG TAB PO SCH (20:20)
[2023-11-22] MEDS: TRAZODONE 50 MG TABLET PO SCH (20:20)
[2023-11-22] MEDS: clonazePAM 0.5 MG TAB PO PRN (20:20)
[2023-11-22] MEDS ORDERED: FIDAXOMICIN 200 MG TABLET PO SCH (21:00)
[2023-11-23] MEDS: MELATONIN 5 MG TABLET PO ONE ×2 (00:05)
[2023-11-23] MEDS: LEVOTHYROXINE SOD 0.025 MG TAB PO SCH (05:18)
[2023-11-23] MEDS: LEVOTHYROXINE SOD 0.112 MG TAB PO SCH (05:18)
[2023-11-23 06:37] LABS: Lymphocytes % 22.7 % (15.3-44.8); MCV 86.5 fL (80-100); MPV 8.4 fL (7.6-11.3); Platelets 207 thou/uL (152-406); RBC Red Blood Cell Count 4.51 M/uL (3.86-4.86)
[2023-11-23 06:49] LABS: Magnesium 2.1 mg/dL (1.6-2.4)
[2023-11-23] MEDS: INSULIN GLARGINE 100 UNIT/ML SQ SCH (09:04)
--- NOTE | 2023-11-23 11:44 | P.PN ---
Subjective Date of Service: 11/23/23 Chief Complaint: C. diff colitis-recurrence; COVID-19; Adrenal insufficiency Pt is resting comfortably in bed. Pt denies any diarrhea. Last diarrhea was yesterday. Pt is waiting to verify whether she can afford fidaxomicin. If not, pt will take a month long po vanc. No other complaints. Review of Systems Unremarkable General: Unremarkable Eyes: Unremarkable ENT: Unremarkable Respiratory: Unremarkable Cardiovascular: Unremarkable Gastrointestinal: Unremarkable Genitourinary: Unremarkable Musculoskeletal: Unremarkable Integumentary: Unremarkable Neurological: Unremarkable Lymphatics: Unremarkable Physical Examination - Vital Signs Temperature: 97.0 F Blood Pressure: 153/84 Pulse: 62 Respirations: 18 Pulse Ox (%): 98 - Physical Exam General: Alert, In no apparent distress, Oriented x3, Obese HEENT: Atraumatic, Normocephalic Neck: Supple, 2+ carotid pulse no bruit Respiratory: Clear to auscultation bilaterally, Normal air movement Cardiovascular: No edema, Normal pulses, Regular rate/rhythm, Normal S1 S2 Capillary refill: <2 Seconds Gastrointestinal: Normal bowel sounds, Soft and benign, Non-distended Musculoskeletal: No clubbing, No swelling Integumentary: No rashes, No breakdown Neurological: Normal gait, Normal speech, Normal strength at 5/5 x4 extr Lymphatics: No axilla or inguinal lymphadenopathy Assessment And Plan - Plan C. difficile: Pt had C diff infection in july,. Will continue po vanc. Pt needs to be discharged with fidaxomicin if her insurance will cover it. If not, pt will go home with prolonged oral vanc therapy. GI is following. Dehydration/Orthostatic hypotension: Will continue IVF and monitor vital signs. Acute kidney injury: Improved. Likely secondary to prerenal dehydration. Cr is 0.59. Will continue IVf, avoid nephrotoxins and monitor renal function. History of hypertension: Continue home meds History of hypothyroidism: Synthroid Diabetes type 2: Continue accuchek, SSI and ADA diet Code: Full DVT ppx: SCDs Dispo: Will dc soon
--- NOTE | 2023-11-23 15:46 | P.PN ---
Date of Service: 11/23/23 Ms. Mcpherson is very upset that Dificid is cost prohibitive. States she is anxious, having stabbing lower abdominal cramping, and feels uneasy about discharge today. Will give phenergan 12.5mg IV and reassure her that discharge will not happen until tomorrow. Will send Vancomycin therapy of one month duration to her pharmacy. <Susan Argueta - Last Filed: 11/23/23 15:43> Pt seen and examined. I agree with the note by the FIELD SALES ENGINEER. Pt is unable to afford dificid <Ursula Salguero - Last Filed: 11/24/23 21:44>
[2023-11-23] MEDS: SIMETHICONE 125 MG TAB PO PRN (16:16)
[2023-11-23] MEDS: PROMETHAZINE INJ 25 MG/ML AMP IV PRN (17:36)
[2023-11-23] MEDS: DICYCLOMINE HCL 10 MG CAP PO SCH (18:33)
[2023-11-24 06:04] LABS: Absolute Lymphocytes (CBC) 1.3 K/uL (0.7-4.9); Hematocrit 40.8 % (36.0-45.0); Lymphocytes % 28.8 % (15.3-44.8); MCV 86.5 fL (80-100); MPV 7.8 fL (7.6-11.3); Platelets 193 thou/uL (152-406); RBC Red Blood Cell Count 4.71 M/uL (3.86-4.86)
[2023-11-24 06:23] LABS: Magnesium 1.9 mg/dL (1.6-2.4); Potassium 3.9 mEq/L (3.5-5.1)
[2023-11-24] MEDS ORDERED: PROMETHAZINE 25 MG TABLET PO PRN (07:37)
[2023-11-24] MEDS ORDERED: SODIUM CHLORIDE 0.9% 10ML INJ IV PRN (07:37)
--- NOTE | 2023-11-24 07:50 | P.PN ---
Date of Service: 11/24/23 Ms. Mcpherson is very upset that Dificid is cost prohibitive. States she is anxious, having stabbing lower abdominal cramping, and feels uneasy about discharge today. Will give phenergan 12.5mg IV and reassure her that discharge will not happen until tomorrow. Will send Vancomycin therapy of one month duration to her pharmacy. Review of Systems Unremarkable General: anxiety Eyes: Unremarkable ENT: Unremarkable Respiratory: Unremarkable Cardiovascular: Unremarkable Gastrointestinal: lower abdominal cramping Genitourinary: Unremarkable Musculoskeletal: Unremarkable Integumentary: Unremarkable Neurological: Unremarkable Lymphatics: Unremarkable Physical Examination - Vital Signs Temperature: 97.0 F Blood Pressure: 153/84 Pulse: 62 Respirations: 18 Pulse Ox (%): 98 - Physical Exam General: Alert, In no apparent distress, Oriented x3, Obese HEENT: Atraumatic, Normocephalic Neck: Supple, 2+ carotid pulse no bruit Respiratory: Clear to auscultation bilaterally, Normal air movement Cardiovascular: No edema, Normal pulses, Regular rate/rhythm, Normal S1 S2 Capillary refill: <2 Seconds Gastrointestinal: Normal bowel sounds, Soft wild mild tenderness to lower quadrants, Non-distended Musculoskeletal: No clubbing, No swelling Integumentary: No rashes, No breakdown Neurological: Normal gait, Normal speech, Normal strength at 5/5 x4 extr Lymphatics: No axilla or inguinal lymphadenopathy Ms. Mcpherson states she had a rough night but did get some rest. No BM overnight, continues with crampy lower abdominal pain. I feel the IV phenergan caused some agitation, anxiety. Offered po to see if helpful as she has had good results with that in the past. Will give one dose protonix for GERD symptoms. Pt does request prescription for Dicyclomine with the month long Vancomycin treatment. This morning she was less tearful and seemed more willing to care for herself at home. <Susan Argueta - Last Filed: 11/24/23 07:51> Pt seen and examined. I agree with the note by the THERAPEUTIC MASSAGE TECHNICIAN. Pt is not able to afford the dificid. Will discharge pt with oral vancomycin taper for 45 days. <Ursula Salguero - Last Filed: 11/24/23 21:40>
[2023-11-24] MEDS: PANTOPRAZOLE 40 MG INJ IVP ONE (08:26)
--- NOTE | 2023-11-24 13:57 | P.DS ---
Admission Date: 11/21/23 Discharge Date: 11/24/23 Reason for Admission: C. diff colitis-recurrence; COVID-19; Adrenal insufficiency - Problems (1) C. difficile diarrhea Current Visit: No Status: Acute Brief History of Present Illness: Patient 53-year-old female came to the hospital with persistent diarrhea. Patient had come into the emergency room a couple days ago with similar complaints. Patient was found to have C. difficile colitis. Patient was started on Flagyl. Patient had C. difficile a few months ago and was on vancomycin for 10 days. Patient had a recurrence and plan is to start her on Dificid. Patient will be admitted to the hospital for further evaluation. Patient was orthostatic on arrival. She states she was crawling on the floor at home because she was fainting whenever she was standing. She will need IV hydration and will need to get control of her diarrhea. Will give her an antidiarrheal medication and will also start her on Questran. Patient will be admitted for inpatient hospitalization. Hospital Course: Ms. Mcpherson was found to have recurrence of C. diff. She has been improving with IV hydration and treatment of symptoms. She has been on Xifaxan and is querying her insurance as to coverage of this medication as an outpatient. Insurance will help but this medication course with cost about $1500 self pay. Ms. Mcpherson elects to be discharged with a prolonged (1 month course) of oral Vancomycin. She is feeling better with a decrease number of bowel movements and will be discharged on Vancomycin (x 1 month), Dicyclomine, and Phenergan. She is to follow up with her PCP in 1-2 weeks. <Susan Argueta - Last Filed: 11/24/23 13:57> Admission Date: 11/21/23 Discharge Date: 11/24/23 Hospital Course: Pt seen and examined. I agree with the note by the PIT SHOVELER. Pt does not want to be discharged today due to abdominal discomfort. Will observe overnight. <Ursula Salguero - Last Filed: 11/24/23 21:22> Disposition: ROUTINE DISCHARGE Discharge Condition: GOOD Vital Signs/Physical Exam: Temp Pulse Resp BP Pulse Ox 97.0 F 55 16 164/77 H 96 11/24/23 12:00 11/24/23 12:00 11/24/23 12:57 11/24/23 12:00 11/24/23 12:57 Laboratory Data at Discharge: WBC 4.50 thou/uL (4.3-10.9) 11/24/23 05:54 Hgb 13.5 g/dL (12.0-15.0) 11/24/23 05:54 Hct 40.8 % (36.0-45.0) 11/24/23 05:54 Plt Count 193 thou/uL (152-406) 11/24/23 05:54 Sodium 141 mEq/L (136-145) 11/24/23 05:54 Potassium 3.9 mEq/L (3.5-5.1) 11/24/23 05:54 BUN 6 mg/dL (7-18) L 11/24/23 05:54 Creatinine 0.83 mg/dL (0.55-1.02) 11/24/23 05:54 Glucose 140 mg/dL (74-106) H 11/24/23 05:54 Magnesium 1.9 mg/dL (1.6-2.4) 11/24/23 05:54 Total Bilirubin 0.3 mg/dL (0.2-1.0) 11/22/23 05:34 AST 17 U/L (15-37) 11/22/23 05:34 ALT 25 U/L (13-56) 11/22/23 05:34 Alkaline Phosphatase 60 U/L (45-117) D 11/22/23 05:34 Lipase 25 U/L (13-75) 11/21/23 11:50 <Argueta,Susan - Last Filed: 11/24/23 13:57> Vital Signs/Physical Exam: Temp Pulse Resp BP Pulse Ox 97.1 F 58 16 145/67 H 93 11/24/23 20:00 11/24/23 20:00 11/24/23 20:00 11/24/23 20:00 11/24/23 20:00 Laboratory Data at Discharge: WBC 4.50 thou/uL (4.3-10.9) 11/24/23 05:54 Hgb 13.5 g/dL (12.0-15.0) 11/24/23 05:54 Hct 40.8 % (36.0-45.0) 11/24/23 05:54 Plt Count 193 thou/uL (152-406) 11/24/23 05:54 Sodium 141 mEq/L (136-145) 11/24/23 05:54 Potassium 3.9 mEq/L (3.5-5.1) 11/24/23 05:54 BUN 6 mg/dL (7-18) L 11/24/23 05:54 Creatinine 0.83 mg/dL (0.55-1.02) 11/24/23 05:54 Glucose 140 mg/dL (74-106) H 11/24/23 05:54 Magnesium 1.9 mg/dL (1.6-2.4) 11/24/23 05:54 Total Bilirubin 0.3 mg/dL (0.2-1.0) 11/22/23 05:34 AST 17 U/L (15-37) 11/22/23 05:34 ALT 25 U/L (13-56) 11/22/23 05:34 Alkaline Phosphatase 60 U/L (45-117) D 11/22/23 05:34 Lipase 25 U/L (13-75) 11/21/23 11:50 <Ursula Salguero - Last Filed: 11/24/23 21:22> Diet: AHA Activity: Ad yanira <Susan Argueta - Last Filed: 11/24/23 13:57> <Ursula Salguero - Last Filed: 11/24/23 21:22> Home Medications: Levothyroxine Sodium 137 mcg PO DAILY 08/31/20 Trazodone HCl 1 tab PO BEDTIME 08/31/20 carvediloL [Carvedilol] 12.5 mg PO BID 08/31/20 clonazePAM [Clonazepam] 0.25 mg PO BIDP PRN 08/31/20 Insulin Glargine,Hum.rec.anlog [Lantus Solostar] 45 units SQ DAILY 06/22/22 Quetiapine [Seroquel*] 1 tab PO BEDTIME 06/22/22 Hydrocodone/Acetaminophen [Hydrocodone-Acetamin 5-325 mg] 1 each PO BIDP PRN 11/22/23 Dicyclomine [Bentyl*] 20 mg PO TID 30 Days #90 cap 11/24/23 Vancomycin Oral Soln [Vancocin HCl*] 2.5 ml PO QID 45 Days #250 ml 11/24/23 New Medications: Dicyclomine [Bentyl*] 20 mg PO TID 30 Days #90 cap Vancomycin Oral Soln [Vancocin HCl*] 2.5 ml PO QID 45 Days #250 ml Physician Discharge Instructions: Continue ad yanira activity. Take oral vancomycin as prescribed for the next 45 days. Follow up with PCP within 1 week Followup: Johnnie Azevedo DO [Primary Care Provider] - 1 Week
[2023-11-25 06:48] LABS: Absolute Lymphocytes (CBC) 1.4 K/uL (0.7-4.9); Hematocrit 41.3 % (36.0-45.0); Lymphocytes % 29.4 % (15.3-44.8); MCV 85.8 fL (80-100); MPV 8.4 fL (7.6-11.3); Platelets 205 thou/uL (152-406); RBC Red Blood Cell Count 4.82 M/uL (3.86-4.86)
[2023-11-25 07:05] LABS: Potassium 3.7 mEq/L (3.5-5.1)
[2023-11-25 09:25] VITALS: BP 162/79; TEMP 96.8
[2023-11-25 10:28] VITALS: O2SAT 95
--- NOTE | 2023-11-25 11:12 | P.DS ---
Admission Date: 11/21/23 Discharge Date: 11/25/23 Disposition: ROUTINE DISCHARGE Discharge Condition: GOOD Reason for Admission: C. diff colitis-recurrence; COVID-19; Adrenal insufficiency Brief History of Present Illness: Patient 53-year-old female came to the hospital with persistent diarrhea. Patient had come into the emergency room a couple days ago with similar complaints. Patient was found to have C. difficile colitis. Patient was started on Flagyl. Patient had C. difficile a few months ago and was on vancomycin for 10 days. Patient had a recurrence and plan is to start her on Dificid. Patient will be admitted to the hospital for further evaluation. Patient was orthostatic on arrival. She states she was crawling on the floor at home because she was fainting whenever she was standing. She will need IV hydration and will need to get control of her diarrhea. Will give her an antidiarrheal medication and will also start her on Questran. Patient will be admitted for inpatient hospitalization. Hospital Course: Pt is a 53 yo female with past medical history of C diff infection who presented with recurrence of C. diff. We gave her po vanc and considered to discharge her with dificid but she could not afford it. Pt was discharged with oral vanc taper over 45 days ( 125mg po vanc QID for 10 days, then vanc po TID for 1 week, then Vanc po BID for 1 week, then vanc po daily for 1 week, then Vanc po Q48h for 1 week, and then vanc po Q72h for 1 week). We also started bentyl and continued home med for other chronic medical problems. Pt was in NAD prior to discharge. Vital Signs/Physical Exam: Temp Pulse Resp BP Pulse Ox 96.8 F 65 18 162/79 H 94 11/25/23 08:00 11/25/23 04:00 11/25/23 08:00 11/25/23 08:00 11/25/23 08:00 Laboratory Data at Discharge: WBC 4.90 thou/uL (4.3-10.9) 11/25/23 05:55 Hgb 14.2 g/dL (12.0-15.0) 11/25/23 05:55 Hct 41.3 % (36.0-45.0) 11/25/23 05:55 Plt Count 205 thou/uL (152-406) 11/25/23 05:55 Sodium 140 mEq/L (136-145) 11/25/23 05:55 Potassium 3.7 mEq/L (3.5-5.1) 11/25/23 05:55 BUN 4 mg/dL (7-18) L 11/25/23 05:55 Creatinine 0.64 mg/dL (0.55-1.02) 11/25/23 05:55 Glucose 142 mg/dL (74-106) H 11/25/23 05:55 Magnesium 2.0 mg/dL (1.6-2.4) 11/25/23 05:55 Total Bilirubin 0.3 mg/dL (0.2-1.0) 11/22/23 05:34 AST 17 U/L (15-37) 11/22/23 05:34 ALT 25 U/L (13-56) 11/22/23 05:34 Alkaline Phosphatase 60 U/L (45-117) D 11/22/23 05:34 Lipase 25 U/L (13-75) 11/21/23 11:50 Home Medications: Levothyroxine Sodium 137 mcg PO DAILY 08/31/20 Trazodone HCl 1 tab PO BEDTIME 08/31/20 carvediloL [Carvedilol] 12.5 mg PO BID 08/31/20 clonazePAM [Clonazepam] 0.25 mg PO BIDP PRN 08/31/20 Insulin Glargine,Hum.rec.anlog [Lantus Solostar] 45 units SQ DAILY 06/22/22 Quetiapine [Seroquel*] 1 tab PO BEDTIME 06/22/22 Hydrocodone/Acetaminophen [Hydrocodone-Acetamin 5-325 mg] 1 each PO BIDP PRN 11/22/23 Dicyclomine [Bentyl*] 20 mg PO TID 30 Days #90 cap 11/24/23 Vancomycin Oral Soln [Vancocin HCl*] 2.5 ml PO QID 45 Days #250 ml 11/24/23 New Medications: Dicyclomine [Bentyl*] 20 mg PO TID 30 Days #90 cap Vancomycin Oral Soln [Vancocin HCl*] 2.5 ml PO QID 45 Days #250 ml Physician Discharge Instructions: Continue ad yanira activity. Take oral vancomycin as prescribed for the next 45 days. Follow up with PCP within 1 week Diet: AHA Activity: Ad yanira Followup: Johnnie Azevedo DO [Primary Care Provider] - 1 Week
== END 2023-11-25 12:20 | disposition home or self-care (01) | DRG 371 ==
LOC: ER 11:10 → 4TH 17:07
PROVIDERS: ADMIT Hospitalist; ATTEND Hospitalist
DX: A04.71 Enterocolitis due to Clostridium difficile, recurrent (principal); U07.1 COVID-19; N17.9 Acute kidney failure, unspecified; I10 Essential (primary) hypertension; E86.0 Dehydration; E03.9 Hypothyroidism, unspecified; F32.A Depression, unspecified; I95.1 Orthostatic hypotension; F41.9 Anxiety disorder, unspecified; E78.2 Mixed hyperlipidemia; E11.9 Type 2 diabetes mellitus without complications; K21.9 Gastro-esophageal reflux disease without esophagitis; T42.6X5A Adverse effect of other antiepileptic and sedative-hypnotic drugs, initial encounter; Z79.4 Long term (current) use of insulin; Z88.8 Allergy status to other drugs, medicaments and biological substances; Z88.2 Allergy status to sulfonamides; Z88.1 Allergy status to other antibiotic agents; Z79.02 Long term (current) use of antithrombotics/antiplatelets; Z79.899 Other long term (current) drug therapy; Z79.890 Hormone replacement therapy; Z87.891 Personal history of nicotine dependence
CPT/HCPCS: 0241U; 36415; 74177; 80048; 80053; 81003; 82947; 83690; 83735; 84145; 85025; 96372; 96374; 99285; C9113; J0500; J1720; J2270; J2405; J2550; J7030; J8499; Q9967

== ENCOUNTER → 2024-01-04 | Emergency (ER) | payer OTHER ==
[~2024-01-04] MED LIST changes: -DICYCLOMINE HCL 10 MG CAP ONE; +DIPHENHYDRAMINE 50 MG/ML VIAL ONE; +FAMOTIDINE 20 MG TAB ONE; +FAMOTIDINE 20 MG/2 ML VIAL IV ONE; +dexAMETHasone 10 MG/ML VIAL ONE
--- NOTE | 2024-01-04 17:43 | EDPHYS ---
Physician Documentation [facility] Name: Sadia Mcpherson Age: 53 yrs Sex: Female : 1970 Arrival Date: 01/04/2024 Time: 17:32 Bed Treatment Private MD: ED Physician Rusty Rm HPI: 01/03 17:40 This 53 yrs old Female presents to ER via Ambulatory with complaints of Rash. 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 Denies fever. . HEALTH INFORMATION TECH: 19:31 LMP N/A - Post-menopause, Not tl4 Historical: - Allergies: 17:39 Lamictal; mb9 17:39 Minocin; mb9 17:39 Sulfa (Sulfonamide Antibiotics); mb9 17:39 Wellbutrin; mb9 17:39 tobramycin; mb9 17:39 tamsulosin; mb9 - Home Meds: 19:31 aspirin 81 mg Oral chew [Active]; carvedilol 12.5 mg Oral tab [Active]; clonazepam tl4 0.125 mg Oral TbDi [Active]; Lantus Solostar U-100 Insulin subcutaneous 18 units [Active]; - PMHx: 17:39 Addrenal Insufficiency; Anxiety; diabetes mellitus; Hypertensive disorder; insomnia; mb9 - Immunization history:: Adult Immunizations up to date. - Social history:: Smoking status: Patient denies any tobacco usage or history of. ROS: 17:39 Constitutional: As per HPI kb Exam: 17:39 Constitutional: This is a well developed, well nourished patient who is awake, alert, kb and in no acute distress. Head/Face: Normocephalic, atraumatic. ENT: Moist Mucous membranes Cardiovascular: Regular rate Respiratory: Respirations even and unlabored. No increased work of breathing. Talking in full sentences MS/ Extremity: Pulses equal, no cyanosis. Neurovascular intact. Full, normal range of motion. Neuro: Awake and alert, GCS 15, oriented to person, place, time, and situation. Moves all extremities. Normal gait. 17:39 Skin: rash can be described as erythematous, on the buttocks, right elbow, left elbow, right posterior aspect of neck and left posterior aspect of neck, Vital Signs: 17:37 BP 155 / 89; Pulse 86; Resp 18; Temp 97.8(T); Pulse Ox 100% on R/A; Weight 90.72 kg; mb9 Height 5 ft. 4 in. ; 19:30 BP 163 / 76; Pulse 87; Resp 20; Temp 98.4(O); Pulse Ox 97% on R/A; Pain 6/10; tl4 17:37 Body Mass Index 34.33 (90.72 kg, 162.56 cm) mb9 19:30 Pain Scale: Adult tl4 MDM: 17:35 Patient medically screened. kb 17:39 Differential diagnosis: impetigo, allergic reaction, parasite infection. Data reviewed: kb vital signs, nurses notes. Counseling: I had a detailed discussion with the patient and/or guardian regarding the historical points, exam findings, and any diagnostic results supporting the discharge/admit diagnosis, the need for outpatient follow up, a family practitioner, to return to the emergency department if symptoms worsen or persist or if there are any questions or concerns that arise at home. 18:18 ED course: Rash has spread further up arms since pt's arrival. IV and medications kb ordered. 19:06 ED course: symptoms improved after treatment. kb 01/03 18:14 Order name: IV Start; Complete Time: 18:38 kb Administered Medications: 17:50 Drug: Dexamethasone IM 10 mg IM once Route: IM; Site: left ventrogluteal; tl4 18:30 Follow up: Response: No adverse reaction tl4 17:55 Drug: Famotidine PO 20 mg PO once Route: PO; tl4 18:30 Follow up: Response: No adverse reaction tl4 18:49 Drug: diphenhydrAMINE IVP 25 mg IVP once {Note: diluted in 10 mL NS flush.} Route: IVP; tl4 Infused Over: 2 mins; Site: left hand; 19:33 Follow up: Response: No adverse reaction tl4 18:50 Drug: NS 0.9% IV 1000 ml IV at 1000 ml once Route: IV; Rate: 1000 ml; Site: left hand; tl4 Delivery: Primary tubing; 19:32 Follow up: Response: No adverse reaction; IV Status: Completed infusion; IV Intake: tl4 500ml 18:53 Drug: Famotidine IVP 20 mg IVP once; dilute with 10 mL 0.9% NaCl; give over 2 minutes tl4 {Note: Diluted in 10 mL NS .} Route: IVP; Infused Over: 2 mins; Site: left hand; 19:32 Follow up: Response: No adverse reaction; Marked relief of symptoms tl4 Disposition Summary: 01/04/24 19:06 Discharge Ordered Notes: Location: Home(01/04/24 19:06) kb Condition: Stable(01/04/24 19:06) kb Diagnosis - Rash and other nonspecific skin eruption(01/04/24 19:06) kb Followup: kb - With: Emergency Department - When: As needed - Reason: Worsening of condition Followup: kb - With: Private Physician - When: 2 - 3 days - Reason: Recheck today's complaints, Continuance of care, Re-evaluation by your physician Discharge Instructions: - Discharge Summary Sheet kb - Rash, Adult, [id number] kb Forms: - Medication Reconciliation Form kb - Thank You Letter kb - Antibiotic Education kb - Prescription Opioid Use kb - Patient Portal Instructions kb - Leadership Thank You Letter kb Prescriptions: - Pepcid 20 mg Oral Tablet - take 1 tablet ORAL route every 12 hours for 5 days; 10 tablet; Refills: 0, kb Product Selection Permitted - Prednisone 20 mg Oral Tablet - take 1 tablet ORAL route once daily for 5 days; 5 tablet; Refills: 0, Product kb Selection Permitted Signatures: Ashlee Cavanaugh FNP-C BELLSTAFF-Fatemeh Hanley, RN RN mb9 Santhosh Vines RN RN tl4 Corrections: (The following items were deleted from the chart) 17:39 17:39 Allergies: GABAPENTIN; mb9 mb9 17:39 17:39 Allergies: Ketorolac; mb9 mb9 18:14 17:42 Home kb kb 18:14 17:42 Stable kb kb 18:14 17:42 Rash and other nonspecific skin eruption kb kb
--- NOTE | 2024-01-04 17:43 | ER ---
Nurse's Notes [facility] Name: Sadia Mcpherson Age: 53 yrs Sex: Female : 1970 Arrival Date: 01/04/2024 Time: 17:32 Bed Treatment Private MD: Diagnosis: Rash and other nonspecific skin eruption Presentation: 01/03 17:37 Chief complaint: Patient states: "I started having a rash on my arms, neck, and back mb9 around 1430. I took some Benadryl around 1430. I haven't ate or drank anything new.". Coronavirus screen: At this time, the client does not indicate any symptoms associated with coronavirus-19. Ebola Screen: No symptoms or risks identified at this time. Initial Sepsis Screen: Does the patient meet any 2 criteria? No. Patient's initial sepsis screen is negative. Does the patient have a suspected source of infection? No. Patient's initial sepsis screen is negative. Risk Assessment: Do you want to hurt yourself or someone else? Patient reports no desire to harm self or others. Onset of symptoms was January 04, 2024. 17:37 Method Of Arrival: Ambulatory mb9 17:37 Acuity: JAYLEN 4 mb9 18:15 Acuity: JAYLEN 3 mb9 Triage Assessment: 17:39 General: Appears in no apparent distress. Behavior is calm, cooperative. Pain: mb9 Complains of pain in back, right arm, left arm and neck. Respiratory: Airway is patent Respiratory effort is even, unlabored, Respiratory pattern is regular, symmetrical. Derm: Rash noted that is itchy, red, on back, right arm, left arm and neck. Musculoskeletal: Range of motion: intact in all extremities. 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 - Social history:: Smoking status: Patient denies any tobacco usage or history of. Screenin:55 [facility] ED Fall Risk Assessment (Adult) History of falling in the last 3 months, mb9 including since admission No falls in past 3 months (0 pts) Confusion or Disorientation No (0 pts) Intoxicated or Sedated No (0 pts) Impaired Gait No (0 pts) Mobility Assist Device Used No (0 pt) Altered Elimination No (0 pt) Score/Fall Risk Level 0 - 2 = Low Risk Oriented to surroundings, Maintained a safe environment, Educated pt \\T\\ family on fall prevention, incl call for assistance when getting out of bed. Abuse screen: Denies threats or abuse. Nutritional screening: No deficits noted. Tuberculosis screening: No symptoms or risk factors identified. Assessment: 18:15 Reassessment: rash is worsening and traveling up arms. ERP notified. mb9 19:04 Reassessment: Pt states she can not tolerate the "burning" from the normal saline. Pt tl4 thinks she is having a reaction to the benadryl and normal saline. She states she "I'm welping up under my skin". Redness appears to be improved, no raised bumps noted. Vital Signs: 17:37 BP 155 / 89; Pulse 86; Resp 18; Temp 97.8(T); Pulse Ox 100% on R/A; Weight 90.72 kg; mb9 Height 5 ft. 4 in. ; 19:30 BP 163 / 76; Pulse 87; Resp 20; Temp 98.4(O); Pulse Ox 97% on R/A; Pain 6/10; tl4 17:37 Body Mass Index 34.33 (90.72 kg, 162.56 cm) mb9 19:30 Pain Scale: Adult tl4 ED Course: 17:35 Patient arrived in ED. mg5 17:35 Ashlee Cavanaugh FNP-C is [facility]. kb 17:35 Rusty Rm MD is Attending Physician. kb 17:39 Triage completed. mb9 17:40 Arm band placed on. mb9 17:44 Breneman, Susanne, RN is Primary Nurse. mb9 17:55 Placed in gown. Bed in low position. Call light in reach. Side rails up X 1. Client mb9 placed on continuous cardiac and pulse oximetry monitoring. NIBP monitoring applied. 17:55 No provider procedures requiring assistance completed. mb9 18:32 Missed attempt(s): 20 gauge in left forearm. Bleeding controlled, band aid applied, mb9 catheter tip intact. 18:38 Inserted saline lock: 24 gauge in left hand, using aseptic technique. bc6 19:30 IV discontinued, intact, bleeding controlled, No redness/swelling at site. Pressure tl4 dressing applied. 19:31 Provided Education on: ED process. tl4 Administered Medications: 17:50 Drug: Dexamethasone IM 10 mg IM once Route: IM; Site: left ventrogluteal; tl4 18:30 Follow up: Response: No adverse reaction tl4 17:55 Drug: Famotidine PO 20 mg PO once Route: PO; tl4 18:30 Follow up: Response: No adverse reaction tl4 18:49 Drug: diphenhydrAMINE IVP 25 mg IVP once {Note: diluted in 10 mL NS flush.} Route: IVP; tl4 Infused Over: 2 mins; Site: left hand; 19:33 Follow up: Response: No adverse reaction tl4 18:50 Drug: NS 0.9% IV 1000 ml IV at 1000 ml once Route: IV; Rate: 1000 ml; Site: left hand; tl4 Delivery: Primary tubing; 19:32 Follow up: Response: No adverse reaction; IV Status: Completed infusion; IV Intake: tl4 500ml 18:53 Drug: Famotidine IVP 20 mg IVP once; dilute with 10 mL 0.9% NaCl; give over 2 minutes tl4 {Note: Diluted in 10 mL NS .} Route: IVP; Infused Over: 2 mins; Site: left hand; 19:32 Follow up: Response: No adverse reaction; Marked relief of symptoms tl4 Medication: 17:56 VIS not applicable for this client. mb9 Intake: 19:32 IV: 500ml; Total: 500ml. tl4 Outcome: 17:42 Discharge ordered by MD. tate 19:06 Discharge ordered by MD. tate 19:31 Discharged to home ambulatory, with family, tl4 19:31 Condition: stable 19:31 Discharge instructions given to patient, Instructed on discharge instructions, follow up and referral plans. medication usage, Demonstrated understanding of instructions, follow-up care, medications, Prescriptions given X 2, 19:32 Patient left the ED. tl4 Signatures: Ashlee Cavanaugh FNP-C FNP-Fatemeh Hanley RN RN mb9 [facility] Belen Schneider mg5 Santhosh Vines RN RN tl4 Corrections: (The following items were deleted from the chart) 17:39 17:39 Allergies: GABAPENTIN; mb9 mb9 17:39 17:39 Allergies: Ketorolac; mb9 mb9 17:40 17:37 Pulse 86bpm; Resp 18bpm; Pulse Ox 100% RA; Temp 97.8F Tympanic; 90.72 kg; Height mb9 5 ft. 4 in.; BMI: 34.3; mb9 18:11 17:55 Patient did not have IV access during this emergency room visit. mb9 mb9 18:15 17:55 Reassessment: No changes from previously documented assessment. Patient and/or mb9 family updated on plan of care and expected duration. Pain level reassessed. Patient is alert, oriented x 3, equal unlabored respirations, skin warm/dry/pink. mb9
[2024-01-04 21:11] VITALS: BP 163/76; TEMP 98.4; O2SAT 97
== END ==
LOC: ER 17:32
DX: R21 Rash and other nonspecific skin eruption (principal); Z88.2 Allergy status to sulfonamides; Z88.8 Allergy status to other drugs, medicaments and biological substances
CPT/HCPCS: 96361; 96375; 96372; 96374; 99284; J1200; J1100; J7030

== ENCOUNTER 2024-10-12 18:52 | Emergency (ER) | payer OTHER ==
[2024-10-12] MEDS ORDERED: ONDANSETRON 4 MG/2 ML VIAL ONE ×2 (19:38→21:52)
[2024-10-12] MEDS ORDERED: MORPHINE 4 MG/ML SYR ONE ×2 (19:39→20:44)
[2024-10-12] MEDS ORDERED: NA CHLORIDE 0.9% 1,000 ML ONE (19:39)
[2024-10-12 19:42] LABS: Absolute Basophils 0.1 K/uL (0-0.5); Absolute Eosinophils 0.1 K/uL (0-0.5); Absolute Lymphocytes (CBC) 1.8 K/uL (0.7-4.9); Absolute Monocytes 0.5 K/uL (0.1-1.3); Absolute Neutrophil 3.5 K/uL (1.8-8.0); Basophils % 1.8 % (0-1.3); Eosinophils % 1.3 % (0-4.4); Hematocrit 41.8 % (36.0-45.0); Hemoglobin 13.9 g/dL (12.0-15.0); Lymphocytes % 30.2 % (15.3-44.8); MCH 30.2 pg (27.0-35.0); MCHC 33.3 g/dL (32.0-36.0); MCV 90.7 fL (80-100); MPV 8.9 fL (7.6-11.3); Monocytes % 7.8 % (3.3-12.3); Neutrophils % 58.9 % (41.7-73.7); Nucleated Red Blood Cells % 0.2 % (0-0); Platelets 222 thou/uL (152-406); RBC Red Blood Cell Count 4.61 M/uL (3.86-4.86)
[2024-10-12 19:59] LABS: Albumin 3.5 g/dL (3.4-5.0); Albumin/Globulin Ratio 0.9 (1.1-1.8); Anion Gap 9.9 mEq/L (5.0-15.0); Bilirubin Total 0.3 mg/dL (0.2-1.0); Globulin 3.7 g/dL (2.3-3.5); Potassium 3.9 mEq/L (3.5-5.1); Protein, Total 7.2 g/dL (6.4-8.2)
--- NOTE | 2024-10-12 20:59 | RAD REPORT ---
EXAMINATION: CT ABDOMEN AND PELVIS WITH CONTRAST CLINICAL INDICATION: ABD PAIN TECHNIQUE: CT abdomen and pelvis was performed, after the administration of IV contrast, as per [facility] protocol. Axial, sagittal and coronal reconstructions were obtained. One or more of the following dose reduction techniques were used: Automated exposure control, adjustment of the mA and k V according to patient size, and iterative reconstruction. Unless otherwise specified, incidental findings do not require dedicated imaging follow-up. COMPARISON: 11/21/2023 FINDINGS: LOWER CHEST: The visualized lung bases are clear. LIVER: Mild fatty liver is present. No focal lesion or biliary dilatation is seen. Grossly unremark able gallbladder. SPLEEN: Normal size. No focal lesion. PANCREAS: No mass, ductal dilation, or juan jose-pancreatic fluid. ADRENALS: Normal; no mass. KIDNEYS: Normal size and contour. No hydronephrosis. Left renal calculi inferiorly. GASTROINTESTINAL TRACT: No evidence of free air, significant intra-abdominal free fluid, bowel obstru ction or abscess. APPENDIX: Normal appendix. LYMPH NODES: No lymphadenopathy. MUSCULOSKELETAL: Mild multilevel spinal degenerative changes. ADDITIONAL FINDINGS: None. IMPRESSION: Left renal calculi inferiorly without nephrosis.
--- NOTE | 2024-10-12 21:31 | ER ---
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 Intermittent abdominal pain with nausea since. 19:00 Coronavirus screen: At this time, the client does not indicate any symptoms associated rs5 with coronavirus-19. Ebola Screen: No symptoms or risks identified at this time. Initial Sepsis Screen: Does the patient meet any 2 criteria? No. Patient's initial sepsis screen is negative. Does the patient have a suspected source of infection? No. Patient's initial sepsis screen is negative. Risk Assessment: Do you want to hurt yourself or someone else? Patient reports no desire to harm self or others. Onset of symptoms was 2023. 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 - Infectious Disease History:: Denies. - Social history:: Smoking status: Patient denies any tobacco usage or history of. Screenin:05 [facility] ED Fall Risk Assessment (Adult) History of falling in the last 3 months, rg5 including since admission No falls in past 3 months (0 pts) Confusion or Disorientation No (0 pts) Intoxicated or Sedated No (0 pts) Impaired Gait No (0 pts) Mobility Assist Device Used No (0 pt) Altered Elimination No (0 pt) Score/Fall Risk Level 0 - 2 = Low Risk Oriented to surroundings, Maintained a safe environment, Hourly rounding (assess needs \T\ fall precautionary measures) done. Abuse screen: Denies threats or abuse. Nutritional screening: No deficits noted. Tuberculosis screening: No symptoms or risk factors identified. Assessment: 19:05 General: Appears uncomfortable, Behavior is crying. rg5 19:05 Pain: Complains of pain in abdomen Pain currently is 9 out of 10 on a pain scale. rg5 Quality of pain is described as aching. Neuro: Level of Consciousness is awake, alert, obeys commands. Cardiovascular: Denies chest pain, Heart tones S1 S2 Patient's skin is warm and dry. Rhythm is sinus rhythm. Respiratory: Airway is patent Trachea midline Respiratory effort is even, unlabored, Respiratory pattern is regular, symmetrical. GI: Bowel sounds present in left lower quadrant Abd is soft and non tender Reports lower abdominal pain, Pain is 9 out of 10 on a pain scale. : No signs and/or symptoms were reported regarding the genitourinary system. EENT: No deficits noted. Derm: Skin is intact, Skin is dry, Skin is normal, Skin temperature is warm. Musculoskeletal: Circulation, motion, and sensation intact. Range of motion: intact in all extremities. Vital Signs: 19:00 BP 142 / 82; Pulse 85; Resp 17; Temp 98.3; Pulse Ox 99% ; rs5 20:58 BP 138 / 74; Pulse 84; Resp 17; Pulse Ox 97% ; Pain 8/10; rg5 21:36 BP 135 / 79; Pulse 86; Resp 18; Pulse Ox 97% on R/A; rg5 22:00 BP 141 / 71; Pulse 83; Resp 17; Pulse Ox 97% ; Pain 3/10; rg5 20:58 Pain Scale: Adult rg5 22:00 Pain Scale: Adult rg5 ED Course: 18:54 Patient arrived in ED. mr 19:00 [facility]C [facility] kb 19:00 Austin Alonzo MD is Attending Physician. kb 19:00 Arm band placed on right wrist. rg5 19:05 Patient has correct armband on for positive identification. Call light in reach. Door rg5 closed. Noise minimized. 19:05 No provider procedures requiring assistance completed. Inserted saline lock: 20 gauge rg5 in right forearm, using aseptic technique. Blood collected. Flushed with 10 mL NS. 19:13 Triage completed. rs5 19:15 Familia Diaz, RN is Primary Nurse. rg5 20:43 CT Abd/Pelvis - IV Contrast Only In Process Unspecified. EDMS 22:06 Provided Education on: post er care. rg5 22:06 IV discontinued, bleeding controlled, No redness/swelling at site. Pressure dressing rg5 applied. Administered Medications: 19:46 Drug: NS 0.9% IV 1000 ml IV at 1 bolus Per protocol; to be given as a bolus over 60 rg5 minutes Route: IV; Rate: 1 bolus; Site: right forearm; 21:00 Follow up: IV Status: Completed infusion; IV Intake: 1000ml rg5 19:47 Drug: Ondansetron IVP 4 mg IVP once; over 2 minutes Route: IVP; Site: right forearm; rg5 22:00 Follow up: Response: No adverse reaction rg5 19:47 Drug: morphine IVP or IV 4 mg IVP once over 4 mins Route: IVP; Infused Over: 4 mins; rg5 Site: right forearm; 20:30 Follow up: Response: No adverse reaction; Pain is decreased rg5 20:45 Drug: morphine IVP or IV 4 mg IVP once over 4 mins Route: IVP; Infused Over: 4 mins; rg5 Site: right forearm; 21:59 Follow up: Response: No adverse reaction; Pain is decreased rg5 21:40 Drug: [place] PO 10 mg-325 mg 1 tabs PO once Route: PO; rg5 21:59 Follow up: Response: No adverse reaction; Pain is decreased rg5 21:40 Drug: Ondansetron IVP 4 mg IVP once; over 2 minutes Route: IVP; Site: right forearm; rg5 21:59 Follow up: Response: Pain is decreased rg5 Medication: 19:05 VIS not applicable for this client. rg5 Intake: 21:00 IV: 1000ml; Total: 1000ml. rg5 Outcome: 21:30 Discharge ordered by MD. tate 22:06 Discharged to home ambulatory, rg5 22:06 Condition: stable 22:06 Discharge instructions given to patient, Instructed on discharge instructions, follow up and referral plans. Demonstrated understanding of instructions, follow-up care, 22:11 Patient left the ED. rg5 Signatures: Dispatcher [employer] EDAshlee Ramires, GAS COMPRESSOR OPERATOR-C GAS COMPRESSOR OPERATOR-Fatemeh Malik, Reg Reg mr ReyesJuan, RN RN rs5 Familia Diaz, SILVIA RN rg5 Corrections: (The following items were deleted from the chart) 22:06 19:05 Discharged to home ambulatory, rg5 rg5 22: 19:05 Condition: stable rg5 rg5 22: 19:05 Discharge instructions given to patient, Instructed on discharge instructions, rg5 follow up and referral plans. Demonstrated understanding of instructions, follow-up care, rg5
--- NOTE | 2024-10-12 21:31 | EDPHYS ---
Physician Documentation [facility] Name: Sadia Mcpherson Age: 54 yrs Sex: Female : 1970 Arrival Date: 10/12/2024 Time: 18:52 Bed 17 Private MD: ED Physician Austin Alonzo HPI: 10/12 21:36 This 54 yrs old Female presents to ER via Ambulatory with complaints of Abdominal Pain, kb Vomiting. 21:36 Pt is a 54 year old female who presents for abd pain, nausea and vomiting that has been kb intermittent since May. States she has been seen at [facility] and admitted several times for pain management. States she had a surgery in July that was supposed to relieve the pain, but it didn't work. Was admitted on the 06 of October for pain management and was seen by her surgeon who told her that the surgery doesn't take the pain away 100%. States she was discharged on the , but the pain never went away. Sees Dr Erwin for pain management for chronic back and abd pain who gives her norco but that doesn't always help. . PRESSER FIRST: 22:06 LMP N/A - Post-menopause, Not rg5 Historical: - Allergies: 19:13 Lamictal; rs5 19:13 Minocin; rs5 19:13 NYSTATIN; rs5 19:13 Sulfa (Sulfonamide Antibiotics); rs5 19:13 tamsulosin; rs5 19:13 tobramycin; rs5 19:13 Toradol; rs5 19:13 Wellbutrin; rs5 - PMHx: 19:13 diabetes mellitus; Hypertensive disorder; insomnia; Anxiety; Kidney stone; Addrenal rs5 Insufficiency; - PSHx: 19:13 kidney stents; abnominal aorta; MALS surgery (abnominal aorta); rs5 - Immunization history:: Adult Immunizations up to date. - Infectious Disease History:: Denies. - Social history:: Smoking status: Patient denies any tobacco usage or history of. ROS: 21:40 Constitutional: As per HPI kb Exam: 21:40 Constitutional: This is a well developed, well nourished patient who is awake, alert, kb and in no acute distress. Head/Face: Normocephalic, atraumatic. ENT: Moist Mucous membranes Cardiovascular: Regular rate Respiratory: Respirations even and unlabored. No increased work of breathing. Talking in full sentences Abdomen/GI: Soft, non-tender. No distention Skin: Warm, dry with normal turgor. Normal color. MS/ Extremity: Pulses equal, no cyanosis. Neurovascular intact. Full, normal range of motion. Neuro: Awake and alert, GCS 15, oriented to person, place, time, and situation. Vital Signs: 19:00 BP 142 / 82; Pulse 85; Resp 17; Temp 98.3; Pulse Ox 99% ; rs5 20:58 BP 138 / 74; Pulse 84; Resp 17; Pulse Ox 97% ; Pain 8/10; rg5 21:36 BP 135 / 79; Pulse 86; Resp 18; Pulse Ox 97% on R/A; rg5 22:00 BP 141 / 71; Pulse 83; Resp 17; Pulse Ox 97% ; Pain 3/10; rg5 20:58 Pain Scale: Adult rg5 22:00 Pain Scale: Adult rg5 MDM: 19:00 Medical Screening Exam initiated kb 21:41 Differential diagnosis: non-specific abd pain, chronic pain, infection. Data reviewed: vital signs, nurses notes. Consideration of Admission/Observation Escalation of care including admission/observation considered. admission considered for abd pain, but pain is controlled at time of discharge. Historians other than the Patient: Spouse/Significant Other: . 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 10/12 19:18 Order name: CBC with Diff; Complete Time: 19:47 kb 10/12 19:18 Order name: CMP; Complete Time: 20:01 kb 10/12 19:18 Order name: Lipase; Complete Time: 20:01 kb 10/12 19:18 Order name: CT Abd/Pelvis - IV Contrast Only; Complete Time: 21:05 kb 10/12 19:18 Order name: IV Saline Lock; Complete Time: 19:47 kb 10/12 19:18 Order name: Labs collected and sent; Complete Time: 19:47 kb Administered Medications: 19:46 Drug: NS 0.9% IV 1000 ml IV at 1 bolus Per protocol; to be given as a bolus over 60 rg5 minutes Route: IV; Rate: 1 bolus; Site: right forearm; 21:00 Follow up: IV Status: Completed infusion; IV Intake: 1000ml rg5 19:47 Drug: Ondansetron IVP 4 mg IVP once; over 2 minutes Route: IVP; Site: right forearm; rg5 22:00 Follow up: Response: No adverse reaction rg5 19:47 Drug: morphine IVP or IV 4 mg IVP once over 4 mins Route: IVP; Infused Over: 4 mins; rg5 Site: right forearm; 20:30 Follow up: Response: No adverse reaction; Pain is decreased rg5 20:45 Drug: morphine IVP or IV 4 mg IVP once over 4 mins Route: IVP; Infused Over: 4 mins; rg5 Site: right forearm; 21:59 Follow up: Response: No adverse reaction; Pain is decreased rg5 21:40 Drug: [place] PO 10 mg-325 mg 1 tabs PO once Route: PO; rg5 21:59 Follow up: Response: No adverse reaction; Pain is decreased rg5 21:40 Drug: Ondansetron IVP 4 mg IVP once; over 2 minutes Route: IVP; Site: right forearm; rg5 21:59 Follow up: Response: Pain is decreased rg5 Disposition Summary: 10/12/24 21:30 Discharge Ordered Notes: Location: Home kb Condition: Stable kb Diagnosis - Abdominal pain, unspecified kb Followup: kb - With: Emergency Department - When: As needed - Reason: Worsening of condition Followup: kb - With: Private Physician - When: 2 - 3 days - Reason: Recheck today's complaints, Continuance of care, Re-evaluation by your physician Discharge Instructions: - Discharge Summary Sheet kb - Abdominal Pain, Adult, [id number] kb Forms: - Medication Reconciliation Form kb - Antibiotic Education kb - Prescription Opioid Use kb - Patient Portal Instructions kb - Leadership Thank You Letter kb Signatures: Dispatcher [employer] Ashlee Barrios FNP-C FNP-Juan Sagastume RN RN rs5 Familia Diaz RN RN rg5
[2024-10-12] MEDS ORDERED: HYDROCODONE/APAP 10/325 TAB ONE (21:52)
[2024-10-12 22:33] VITALS: TEMP 98.3
[2024-10-12 22:35] VITALS: O2SAT 97
[2024-10-12 22:38] VITALS: BP 141/71
== END 2024-10-12 22:11 | disposition home or self-care (01) ==
LOC: ER 18:52
DX: R10.9 Unspecified abdominal pain (principal); E11.9 Type 2 diabetes mellitus without complications; I10 Essential (primary) hypertension; Z87.442 Personal history of urinary calculi; Z96.0 Presence of urogenital implants
CPT/HCPCS: 96361; 85025; 36415; 83690; 80053; 74177; 96375; 96374; 99284; Q9967; J2405 ×2; J7030

== ENCOUNTER 2024-11-19 15:23 | Emergency (ER) | payer OTHER ==
[2024-11-19] MEDS ORDERED: droPERidol 5 MG/2 ML VIAL ONE (15:40)
[2024-11-19] MEDS ORDERED: NA CHLORIDE 0.9% 1,000 ML ONE (15:40)
[2024-11-19] MEDS ORDERED: DIPHENHYDRAMINE 50 MG/ML VIAL ONE (15:40)
[2024-11-19] MEDS ORDERED: ONDANSETRON 4 MG/2 ML VIAL ONE (16:14)
[2024-11-19 16:25] LABS: Absolute Basophils 0.1 K/uL (0-0.5); Absolute Eosinophils 0.1 K/uL (0-0.5); Absolute Lymphocytes (CBC) 1.5 K/uL (0.7-4.9); Absolute Monocytes 0.4 K/uL (0.1-1.3); Basophils % 1.4 % (0-1.3); Eosinophils % 1.3 % (0-4.4); Hematocrit 45.6 % (36.0-45.0); Lymphocytes % 30.6 % (15.3-44.8); MCH 29.6 pg (27.0-35.0); MCHC 32.9 g/dL (32.0-36.0); MCV 89.9 fL (80-100); MPV 9.1 fL (7.6-11.3); Monocytes % 7.5 % (3.3-12.3); Neutrophils % 59.2 % (41.7-73.7); Nucleated Red Blood Cells % 0.1 % (0-0); Platelets 216 thou/uL (152-406); RBC Red Blood Cell Count 5.07 M/uL (3.86-4.86); Red Cell Distribution Width 14.5 % (12.1-15.2)
[2024-11-19 16:42] LABS: Specific Gravity 1.019 (1.005-1.030); Sqamous Epithelial <5 /HPF (None Seen); Urine Bacteria None Seen /HPF (<20); Urine Bilirubin NEGATIVE (Negative); Urine Blood Negative (Negative); Urine Clarity Clear (Clear); Urine Color Light-Yellow (Yellow); Urine Culture Reflex Order NOT NEEDED; Urine Glucose NEGATIVE (Negative); Urine Ketones NEGATIVE (Negative); Urine Microscopic Reflex YN ORDER UMIC; Urine Nitrite NEGATIVE (Negative); Urine Protein NEGATIVE (Negative); Urine RBC None Seen /HPF (None Seen); Urine Urobilinogen Normal (Normal); Urine WBC <5 /HPF (<5)
[2024-11-19 17:15] LABS: Albumin 3.1 g/dL (3.4-5.0); Albumin/Globulin Ratio 0.7 (1.1-1.8); Anion Gap 9.7 mEq/L (5.0-15.0); Bilirubin Total 0.4 mg/dL (0.2-1.0); Globulin 4.2 g/dL (2.3-3.5); Potassium 3.7 mEq/L (3.5-5.1); Protein, Total 7.3 g/dL (6.4-8.2)
[2024-11-19] MEDS ORDERED: DICYCLOMINE HCL 20 MG/2 ML AMP IM ONE (17:51)
[2024-11-19] MEDS ORDERED: FAMOTIDINE 20 MG/2 ML VIAL IV ONE (17:51)
--- NOTE | 2024-11-19 18:50 | RAD REPORT ---
EXAMINATION: CT ABDOMEN AND PELVIS WITH CONTRAST CLINICAL INDICATION: Female, 54 years old.ABD PAIN TECHNIQUE: CT abdomen and pelvis was performed, after the administration of IV contrast[facility]. Axial, sagittal and coronal reconstructions were obtained. One or more of the following dose reduction techniques were used: Automated exposure control, adjustment of the mA and/o r kV according to patient size, and/or iterative reconstruction. Unless otherwise specified, incidental findings do not require dedicated imaging follow-up. [id number]. COMPARISON: 10/12/2024 FINDINGS: LOWER CHEST: No acute process identified.No significant pericardial effusion. Bilateral breast prosth esesSmall hiatal hernia with circumferential thickening of the esophagus which could reflect esophagitis. UPPER GI: Unremarkable LIVER: Hepatic steatosis, but otherwise unremarkable. GALLBLADDER/BILE DUCTS: No biliary ductal dilatation.? PANCREAS: Soft tissue mass arising from the neck of the pancreas with encasement of the celiac trunk and common hepatic artery. This measures approximately 3.2 x 2.9 cm. SPLEEN: Unremarkable. ADRENALS: No adrenal masses. KIDNEYS AND URETERS: No hydronephrosis.2 left renal calculi noted.Intermediate attenuation lesion luanne ng the inner polar aspect of the left kidney anteriorly is unchanged since at least 2022 and likely benign.It likely represents a proteinaceous or hemorrhagic cyst. ABDOMINAL AORTA AND OTHER VESSELS: Mild atherosclerotic changes. PERITONEUM: No abnormal free fluid. No free air. LYMPH NODES: No pathologic lymphadenopathy. ABDOMINAL WALL: Unremarkable SMALL BOWEL/COLON: Small bowel has normal course and caliber. No colonic wall thickening or pericolon ic inflammatory changes.Normal appendix. Metallic foreign body in the ascending colon in similar position may be from a prior biopsy or vascular clipping. URINARY BLADDER: Underdistended but grossly unremarkable. REPRODUCTIVE ORGANS: No pathologic process. MUSCULOSKELETAL: Multilevel degenerative changes in the spine. No acute fracture. ADDITIONAL FINDINGS: None. IMPRESSION: Locally aggressive mass likely arising from the neck of the pancreas with encasement of the celiac tr unk and common hepatic artery which is highly concerning for pancreatic adenocarcinoma. Nonobstructive left nephrolithiasis.
--- NOTE | 2024-11-19 18:56 | EDPHYS ---
Physician Documentation [facility] Name: Sadia Mcpherson Age: 54 yrs Sex: Female : 1970 Arrival Date: 11/19/2024 Time: 15:23 Bed 5 Private MD: ED Physician Art Monroy HPI: 11/19 15:36 This 54 yrs old Female presents to ER via Ambulatory with complaints of ec2 Abdominal Pain, Dizziness. 15:36 Patient arrives today for evaluation of upper abdominal pain. Reports that she has been ec2 experiencing upper abdominal pain ongoing for several months. Has been previously diagnosed with some type of intestinal pathology and had previous surgery. Patient reports some associated nausea without vomiting or diarrhea. No urinary complaints. Reports that the surgery was supposed to help her pain however has still had persistent pain since surgery with no new changes. She indicates that she has been seen multiple times and by different specialists without diagnosis.. Historical: - Allergies: 15:32 Lamictal; ll1 15:32 Minocin; ll1 15:32 NYSTATIN; ll1 15:32 Sulfa (Sulfonamide Antibiotics); ll1 15:32 tamsulosin; ll1 15:32 tobramycin; ll1 15:32 Toradol; ll1 15:32 Wellbutrin; ll1 - PMHx: 15:32 Addrenal Insufficiency; Anxiety; diabetes mellitus; Hypertensive disorder; insomnia; ll1 Kidney stone; - PSHx: 15:32 abnominal aorta; kidney stents; MALS surgery (na); ll1 - Immunization history:: Adult Immunizations up to date. - Infectious Disease History:: Denies. - Social history:: Smoking status: Patient denies any tobacco usage or history of. ROS: 15:37 Constitutional: as per hpi ec2 Exam: 15:37 Constitutional: GEN: NAD Head: atraumatic Eyes: EOMI Ears: External ears are ec2 normal. CV: regular rate LUNGS: no respiratory distress ABD: non-distended, soft, generally tender, not guarding or rigid SKIN: no evidence of rashes MSK: no evidence of trauma Vital Signs: 15:33 BP 156 / 96; Pulse 87; Resp 17; Temp 97.1; Pulse Ox 96% ; Weight 72.57 kg; Height 5 ft. ll1 4 in. ; Pain 9/10; 16:33 BP 144 / 84; Pulse 79; Resp 16 S; Pulse Ox 98% on R/A; kc6 17:28 BP 154 / 93; Pulse 79; Resp 16 S; Pulse Ox 97% on R/A; kc6 19:40 BP 152 / 93; Pulse 88; Resp 18; Pulse Ox 96% ; Pain 8/10; br2 20:47 BP 162 / 80; Pulse 84; Resp 18; Temp 97.2; Pulse Ox 97% on R/A; Pain 6/10; br2 15:33 Body Mass Index 27.46 (72.57 kg, 162.56 cm) ll1 15:33 Pain Scale: Adult ll1 19:40 Pain Scale: Adult br2 20:47 Pain Scale: Adult br2 MDM: 15:25 Medical Screening Exam initiated ec2 15:37 Data reviewed: vital signs, nurses notes. ED course: Patient arrives today for ec2 evaluation of upper abdominal pain. Examination is revealing for general abdominal TTP. Will obtain lab work, CT imaging and give the patient's medications for symptoms. Differential includes processes such as gastritis, UTI, chronic abdominal pain.. 15:48 ED course: EKG independently reviewed and interpreted by me, shows normal sinus rhythm, ec2 rate of 81, no acute ST segment elevations, intervals are nonactionable.. 18:00 ED course: Lab work is unrevealing. Pending CT imaging. I offered different nonopiate ec2 medications for pain however the patient declined. Specifically trying to avoid opiates medications as to not cause obstipation/constipation and worsen abdominal pain. 19:03 ED course: CT imaging shows aggressive pancreatic mass, concerning for pancreatic ec2 adenocarcinoma with encasement of the celiac trunk and common hepatic artery. With the patient morphine for cancer related pain. Given the patient's pain and aggressive nature, will attempt transfer to surgical oncological capable facility.. 19:03 ED course: I updated the patient regarding her diagnosis and concern for pancreatic ec2 cancer.. 11/19 15:34 Order name: CBC with Diff; Complete Time: 16:46 ec2 11/19 15:34 Order name: CMP; Complete Time: 17:17 ec2 11/19 15:34 Order name: Lipase; Complete Time: 17:17 ec2 11/19 15:34 Order name: Urinalysis w/ reflexes; Complete Time: 16:46 ec2 11/19 19:27 Order name: Urine Culture [facility] 11/19 15:34 Order name: CT Abd/Pelvis - IV Contrast Only; Complete Time: 18:51 ec2 11/19 15:34 Order name: IV Saline Lock; Complete Time: 16:17 ec2 11/19 15:34 Order name: Labs collected and sent; Complete Time: 16:17 ec2 11/19 15:34 Order name: EKG - Nurse/Tech; Complete Time: 15:45 ec2 11/19 16:31 Order name: Labs - recollect needed: green top hemolyzed; Complete Time: 16:50 em1 Administered Medications: 16:16 Not Given (Patient Refused): droperidol2.5 mg IVP once cm10 16:27 Drug: NS 0.9% IV 1000 ml IV at 1 bolus Per protocol; to be given as a bolus over 60 kc6 minutes Route: IV; Rate: 1 bolus; Site: right wrist; 19:30 Follow up: IV Status: Completed infusion; IV Intake: 1000ml br2 16:27 Drug: diphenhydrAMINE IVP 25 mg IVP once Route: IVP; Site: right wrist; kc6 16:55 Follow up: Response: No adverse reaction; Pain is unchanged, physician notified kc6 16:27 Drug: Ondansetron IVP 4 mg IVP once; over 2 minutes Route: IVP; Site: right wrist; kc6 16:55 Follow up: Response: No adverse reaction; Nausea is decreased; Vomiting decreased kc6 17:44 Not Given (Patient Refused): banvorhi36 mg IVP once kc6 17:59 Drug: Famotidine IVP 20 mg IVP once; dilute with 10 mL 0.9% NaCl; give over 2 minutes kc6 Route: IVP; Site: right wrist; 18:59 Follow up: Response: No adverse reaction kc6 18:00 Drug: Dicyclomine IM 20 mg IM once Route: IM; Site: right ventrogluteal; kc6 18:59 Follow up: Response: No adverse reaction kc6 19:53 Drug: morphine IVP or IV 4 mg IVP once over 4 mins Route: IVP; Infused Over: 4 mins; br2 Site: right wrist; 20:30 Follow up: Response: No adverse reaction br2 20:19 Drug: Ativan IVP 1 mg IVP once Route: IVP; Site: right wrist; br2 20:45 Follow up: Response: No adverse reaction br2 Disposition Summary: 11/19/24 18:55 Transfer Ordered Notes: Transfer Location: Other Acute Care Facility ec2 Reason: Higher level of care ec2 Condition: Stable ec2 Problem: an ongoing problem ec2 Symptoms: have improved ec2 Accepting Physician: transferring doc(11/19/24 21:26) br2 Diagnosis - Intractable Abdominal Pain, New Diagnosis of Pancreatic Cancer ec2 Discharge Instructions: - Discharge Summary Sheet ec2 - Abdominal Pain, Adult ec2 Forms: - Medication Reconciliation Form ec2 - SBAR form ec2 Prescriptions: - Zofran 4 mg Oral Tablet - take 1 tablet ORAL route every 12 hours As needed; 20 tablet; Refills: 0, ec2 Product Selection Permitted - Pepcid 20 mg Oral Tablet - take 1 tablet ORAL route once daily; 20 tablet; Refills: 0, Product Selection ec2 Permitted Signatures: Dispatcher [employer] Nicola Parks em1 Martha Crawley RN RN ll1 Sharri Pino RN RN kc6 Art Monroy MD MD ec2 Siri Keane RN RN br2 Malia Dwyer RN cm10 Corrections: (The following items were deleted from the chart) 17:58 15:36 Patient arrives today for evaluation of upper abdominal pain. Reports that she ec2 has been experiencing upper abdominal pain ongoing for several months. Has been previously diagnosed with some type of intestinal pathology and had previous surgery. Patient reports some associated nausea without vomiting or diarrhea. No urinary complaints.. ec2 21:26 18:55 transferring doc ec2 br2
--- NOTE | 2024-11-19 18:56 | ER ---
Nurse's Notes [facility] Name: Sadia Mcpherson Age: 54 yrs Sex: Female : 1970 Arrival Date: 11/19/2024 Time: 15:23 Bed 5 Private MD: Diagnosis: Intractable Abdominal Pain, New Diagnosis of Pancreatic Cancer Presentation: 11/19 15:33 Chief complaint: Patient states: Abdominal pain, nausea, and dizziness started ll1 yesterday. Coronavirus screen: Client denies travel out of the [place] in the last 14 days. At this time, the client does not indicate any symptoms associated with coronavirus-19. Ebola Screen: Patient denies travel to an Ebola-affected area in the 21 days before illness onset. Initial Sepsis Screen: Does the patient meet any 2 criteria? No. Patient's initial sepsis screen is negative. Does the patient have a suspected source of infection? No. Patient's initial sepsis screen is negative. Risk Assessment: Do you want to hurt yourself or someone else? Patient reports no desire to harm self or others. Onset of symptoms was November 18, 2024. 15:33 Method Of Arrival: Ambulatory ll1 15:33 Acuity: JAYLEN 3 ll1 Triage Assessment: 15:34 General: Appears uncomfortable, Behavior is calm, cooperative, appropriate for age. ll1 Pain: Complains of pain in abdomen. Neuro: Reports dizziness. GI: Reports lower abdominal pain, upper abdominal pain, nausea. Historical: - Allergies: 15:32 Lamictal; ll1 15:32 Minocin; ll1 15:32 NYSTATIN; ll1 15:32 Sulfa (Sulfonamide Antibiotics); ll1 15:32 tamsulosin; ll1 15:32 tobramycin; ll1 15:32 Toradol; ll1 15:32 Wellbutrin; ll1 - PMHx: 15:32 Addrenal Insufficiency; Anxiety; diabetes mellitus; Hypertensive disorder; insomnia; ll1 Kidney stone; - PSHx: 15:32 abnominal aorta; kidney stents; MALS surgery (na); ll1 - Immunization history:: Adult Immunizations up to date. - Infectious Disease History:: Denies. - Social history:: Smoking status: Patient denies any tobacco usage or history of. Screenin:48 [facility] ED Fall Risk Assessment (Adult) History of falling in the last 3 months, kc6 including since admission No falls in past 3 months (0 pts) Confusion or Disorientation No (0 pts) Intoxicated or Sedated No (0 pts) Impaired Gait No (0 pts) Mobility Assist Device Used No (0 pt) Altered Elimination No (0 pt) Score/Fall Risk Level 0 - 2 = Low Risk Oriented to surroundings, Maintained a safe environment, Educated pt \\T\\ family on fall prevention, incl call for assistance when getting out of bed. Abuse screen: Denies threats or abuse. Denies injuries from another. Nutritional screening: No deficits noted. Tuberculosis screening: No symptoms or risk factors identified. Assessment: 15:34 Reassessment: pt refusing IV Droperidol at this time. pt states, "I looked it up and it kc6 says its a psych medicine. I've taken something like that before and I don't like the way it makes me feel. I'm hesitant to try new medications because I always have reactions." pt educated that Droperidol has an off brand usage for n/v and pain. pt still refusing at this time and requesting Zofran. made aware. 15:48 General: Appears in no apparent distress. uncomfortable, well groomed, well developed, kc6 Behavior is cooperative, appropriate for age, crying. Pain: Complains of pain in abdomen. Neuro: Level of Consciousness is awake, alert, obeys commands, Oriented to person, place, time, situation, Appropriate for age Reports dizziness. Cardiovascular: Capillary refill < 3 seconds. Respiratory: Airway is patent Trachea midline Respiratory effort is even, unlabored, Respiratory pattern is regular, symmetrical. GI: Abdomen is round non-distended, Bowel sounds present X 4 quads. Abd is soft X 4 quads Reports upper abdominal pain, nausea, vomiting, Patient currently denies diarrhea, vomiting. : No signs and/or symptoms were reported regarding the genitourinary system. EENT: No signs and/or symptoms were reported regarding the EENT system. Derm: No signs and/or symptoms reported regarding the dermatologic system. Skin is intact, is healthy with good turgor, Skin is pale. Musculoskeletal: No signs and/or symptoms reported regarding the musculoskeletal system. Circulation, motion, and sensation intact. Range of motion: intact in all extremities. 16:48 Reassessment: Patient appears in no apparent distress at this time. No changes from kc6 previously documented assessment. Patient and/or family updated on plan of care and expected duration. Pain level reassessed. Patient is alert, oriented x 3, equal unlabored respirations, skin warm/dry/pink. 17:44 Reassessment: pt refusing IV Ketamine for pain at this time. pt states, "nope. I'm not kc6 taking Ketamine. I've had it before and I'm not taking it again." made aware. 17:48 Reassessment: Patient appears in no apparent distress at this time. No changes from kc6 previously documented assessment. Patient and/or family updated on plan of care and expected duration. Pain level reassessed. Patient is alert, oriented x 3, equal unlabored respirations, skin warm/dry/pink. 18:59 Reassessment: Patient appears in no apparent distress at this time. No changes from kc6 previously documented assessment. Patient and/or family updated on plan of care and expected duration. Pain level reassessed. Patient is alert, oriented x 3, equal unlabored respirations, skin warm/dry/pink. Vital Signs: 15:33 BP 156 / 96; Pulse 87; Resp 17; Temp 97.1; Pulse Ox 96% ; Weight 72.57 kg; Height 5 ft. ll1 4 in. ; Pain 9/10; 16:33 BP 144 / 84; Pulse 79; Resp 16 S; Pulse Ox 98% on R/A; kc6 17:28 BP 154 / 93; Pulse 79; Resp 16 S; Pulse Ox 97% on R/A; kc6 19:40 BP 152 / 93; Pulse 88; Resp 18; Pulse Ox 96% ; Pain 8/10; br2 20:47 BP 162 / 80; Pulse 84; Resp 18; Temp 97.2; Pulse Ox 97% on R/A; Pain 6/10; br2 15:33 Body Mass Index 27.46 (72.57 kg, 162.56 cm) ll1 15:33 Pain Scale: Adult ll1 19:40 Pain Scale: Adult br2 20:47 Pain Scale: Adult br2 ED Course: 15:25 Patient arrived in ED. mr 15:25 Art Monroy MD is Attending Physician. ec2 15:32 Arm band placed on Patient placed in an exam room, on a stretcher. ll1 15:34 Triage completed. ll1 15:37 Sharri Pino, SILVIA is Primary Nurse. kc6 15:47 EKG done, by ED staff, reviewed by Art Monroy MD. Patient maintains SpO2 saturation kc6 greater than 95% on room air. 15:48 Patient has correct armband on for positive identification. Bed in low position. Call kc6 light in reach. Side rails up X 1. Pulse ox on. NIBP on. Door closed. Noise minimized. Lights dimmed. Warm blanket given. Pillow given. 16:06 Missed attempt(s): 20 gauge in right antecubital area. Missed attempt(s): 22 gauge in kc6 left forearm. 16:17 Lipase Sent. cm10 16:17 CMP Sent. cm10 16:17 CBC with Diff Sent. cm10 16:17 Initial lab(s) drawn, by me, sent to lab. Inserted saline lock: 22 gauge in right cm10 wrist, using aseptic technique. Blood collected. Flushed with 10 mL NS. 16:28 Assisted to bathroom. kc6 16:32 Urine collected: clean catch specimen, cloudy. kc6 16:50 Patient requests pain medication. kc6 16:50 Lab(s) recollected, by me, sent to lab. kc6 17:40 Patient requests pain medication. kc6 18:18 CT Abd/Pelvis - IV Contrast Only In Process Unspecified. EDMS 19:03 Report given to Sarahi Kraft RN. kc6 19:[address] [facility] for transfer talked to Kim. fuentes 19:55 called to do DOC to DOC --accepted pt. sp 20:[address] Becky Perez accepted pt 2004 Kathryn GAITAN TC admin approval to [facility] bed 1839 report number [phone]. 20:48 Called [facility] for transfer talked to Eric. fuentes 21:10 No provider procedures requiring assistance completed. Patient transferred, IV remains br2 in place. Administered Medications: 16:16 Not Given (Patient Refused): droperidol2.5 mg IVP once cm10 16:27 Drug: NS 0.9% IV 1000 ml IV at 1 bolus Per protocol; to be given as a bolus over 60 kc6 minutes Route: IV; Rate: 1 bolus; Site: right wrist; 19:30 Follow up: IV Status: Completed infusion; IV Intake: 1000ml br2 16:27 Drug: diphenhydrAMINE IVP 25 mg IVP once Route: IVP; Site: right wrist; kc6 16:55 Follow up: Response: No adverse reaction; Pain is unchanged, physician notified kc6 16:27 Drug: Ondansetron IVP 4 mg IVP once; over 2 minutes Route: IVP; Site: right wrist; kc6 16:55 Follow up: Response: No adverse reaction; Nausea is decreased; Vomiting decreased kc6 17:44 Not Given (Patient Refused): toacexfs77 mg IVP once kc6 17:59 Drug: Famotidine IVP 20 mg IVP once; dilute with 10 mL 0.9% NaCl; give over 2 minutes kc6 Route: IVP; Site: right wrist; 18:59 Follow up: Response: No adverse reaction kc6 18:00 Drug: Dicyclomine IM 20 mg IM once Route: IM; Site: right ventrogluteal; kc6 18:59 Follow up: Response: No adverse reaction kc6 19:53 Drug: morphine IVP or IV 4 mg IVP once over 4 mins Route: IVP; Infused Over: 4 mins; br2 Site: right wrist; 20:30 Follow up: Response: No adverse reaction br2 20:19 Drug: Ativan IVP 1 mg IVP once Route: IVP; Site: right wrist; br2 20:45 Follow up: Response: No adverse reaction br2 Intake: 19:30 IV: 1000ml; Total: 1000ml. br2 Outcome: 18:55 ER care complete, transfer ordered by . ec2 21:10 Transferred by ground EMS to [facility], Transfer form completed. br2 X-rays sent w/ patient. 21:10 Condition: improved 21:10 Instructed on the need for transfer, Demonstrated understanding of instructions, follow-up care, 21:10 Patient left the ED. br2 Signatures: Dispatcher [employer] EDMS Vidhya Khan, Fatemeh, Reg Reg mr Martha Crawley, SILVIA RN ll1 Sharri Pino RN RN kc6 Malia Dwyer RN RN cm10 Art Monroy MD MD ec2 Siri Keane RN RN br2 Corrections: (The following items were deleted from the chart) 16:34 15:48 General: Appears in no apparent distress. comfortable, well groomed, well kc6 developed, Behavior is calm, cooperative, appropriate for age, kc6 16:34 15:48 GI: Abdomen is round non-distended, Bowel sounds present X 4 quads. Abd is soft X kc6 4 quads Reports nausea, Patient currently denies diarrhea, vomiting, kc6 17:45 17:44 Reassessment: pt refusing IV Ketamine for pain at this time. pt states, "nope. kc6 I'm taking Ketamine. I've had it before and I'm not taking it again." made aware. kc6 21:32 21:26 Patient left the ED. br2 br2
[2024-11-19] MEDS ORDERED: MORPHINE 4 MG/ML SYR ONE (19:41)
[2024-11-19] MEDS ORDERED: LORazepam 2 MG/ML VIAL ONE (20:14)
[2024-11-19 21:59] VITALS: BP 162/80; TEMP 97.2; O2SAT 97
--- NOTE | 2024-11-22 12:50 | EKG ---
Test Date: 2024-11-19 Test Time: 15:43:39 Cafeteria Worker: GRIS MEASUREMENT RESULTS: Intervals: Rate: 81 CT: 142 QRSD: 88 QT: 376 QTc: 436 Brunson: P: 23 CT: 142 QRS: 33 T: 31 INTERPRETIVE STATEMENTS: Normal sinus rhythm Normal ECG Compared to ECG 11/25/2022 18:13:09 ST (T wave) deviation no longer present Prolonged QT interval no longer present Electronically Signed On 11-22-24 12:44:50 FURNITURE SPRAYER by Jh Romeo
== END 2024-11-19 21:26 ==
LOC: ER 15:23
DX: C25.9 Malignant neoplasm of pancreas, unspecified (principal); Z87.442 Personal history of urinary calculi; Z96.0 Presence of urogenital implants
CPT/HCPCS: 96361; 93005; 87088; 85025; 81001; 87086; 36415; 83690; 80053; 74177; 96375; 96372; 96374; 99285; Q9967; J0500; J1200; J2405; J7030; J1790

== ENCOUNTER 2025-02-19 13:27 | Emergency (ER) | payer OTHER ==
[2025-02-19] MEDS ORDERED: ONDANSETRON 4 MG/2 ML VIAL ONE ×2 (13:55→15:15)
[2025-02-19] MEDS ORDERED: NA CHLORIDE 0.9% 1,000 ML ONE (13:56)
[2025-02-19] MEDS ORDERED: MORPHINE 4 MG/ML SYR ONE ×2 (13:56→15:16)
[2025-02-19 14:11] LABS: Hematocrit 44.1 % (36.0-45.0); RBC Red Blood Cell Count 5.04 M/uL (3.86-4.86)
[2025-02-19 14:12] LABS: Absolute Basophils 0.1 K/uL (0-0.5); Absolute Lymphocytes (CBC) 1.8 K/uL (0.7-4.9); Absolute Monocytes 0.4 K/uL (0.1-1.3); Absolute Neutrophil 7.8 K/uL (1.8-8.0); Basophils % 0.8 % (0-1.3); Eosinophils % 0.1 % (0-4.4); Lymphocytes % 17.7 % (15.3-44.8); MCH 29.7 pg (27.0-35.0); MCHC 33.9 g/dL (32.0-36.0); MCV 87.5 fL (80-100); MPV 8.7 fL (7.6-11.3); Monocytes % 3.8 % (3.3-12.3); Neutrophils % 77.6 % (41.7-73.7); Platelets 253 thou/uL (152-406); Red Cell Distribution Width 14.7 % (12.1-15.2)
[2025-02-19 14:17] LABS: Albumin 3.7 g/dL (3.4-5.0); Anion Gap 11.1 mEq/L (5.0-15.0); Bilirubin Total 0.4 mg/dL (0.2-1.0); Globulin 3.8 g/dL (2.3-3.5); Potassium 4.1 mEq/L (3.5-5.1); Protein, Total 7.5 g/dL (6.4-8.2)
--- NOTE | 2025-02-19 14:55 | RAD REPORT ---
EXAMINATION: CT ABDOMEN AND PELVIS WITH CONTRAST CLINICAL INDICATION: Abd pain;Nausea / vomiting TECHNIQUE: CT abdomen and pelvis was performed, after the administration of IV contrast, as per [facility] protocol. Axial, sagittal and coronal reconstructions were obtained. One or more of the following dose reduction techniques were used: Automated exposure control, adjustment of the mA and k V according to patient size, and iterative reconstruction. Unless otherwise specified, incidental findings do not require dedicated imaging follow-up. COMPARISON: 11/19/2024 FINDINGS: LOWER CHEST: Tiny nodules seen in the right lung base. LIVER: Mild fatty liver is present. No focal lesion or biliary dilatation is seen. Grossly unremark able gallbladder. SPLEEN: Normal size. No focal lesion. PANCREAS: No mass, ductal dilation, or juan jose-pancreatic fluid. ADRENALS: Normal; no mass. KIDNEYS: Several stones are present in the inferior left kidney without hydronephrosis. Small benign cyst left kidney. GASTROINTESTINAL TRACT: No evidence of free air, significant intra-abdominal free fluid, bowel obstru ction or abscess. Sigmoid diverticulosis coli without diverticulitis. Moderate stool retained throughout the colon. APPENDIX: Normal appendix. LYMPH NODES: No lymphadenopathy. MUSCULOSKELETAL: Moderate lower lumbar degenerative changes with disc herniations likely present. ADDITIONAL FINDINGS: Small fat-containing inguinal hernias. IMPRESSION: Sigmoid diverticulosis coli of the sigmoid colon. Moderate stool throughout the colon. Recommend foll ow-up colonoscopy for further evaluation if not recently performed. Left nephrolithiasis inferior left kidney. No hydronephrosis. Small nodules in the right lower lung noted. Nonemergent LDCT lung cancer screening follow-up would b e recommended in 3-6 months.
[2025-02-19] MEDS ORDERED: DIAZEPAM 2 MG TABLET ONE (15:16)
--- NOTE | 2025-02-19 16:09 | EDPHYS ---
Physician Documentation [facility] Name: Sadia Mcpherson Age: 54 yrs Sex: Female : 1970 Arrival Date: 02/19/2025 Time: 13:27 Bed 7 Private MD: ED Physician Karl Headley HPI: 02/19 15:21 This 54 yrs old Female presents to ER via Wheelchair with complaints of Abdominal Pain, rn Dizziness, Nausea. 15:21 Patient reports chronic abdominal pain, has been happening for almost a year. No clear rn diagnosis. No history of pancreatitis. Has had a pancreatic cyst in the past and was drained without recurrence. No fever or chills. Reports nausea. No blood in stool. Patient reports gets the symptoms, usually requires admission at [facility] for observation and pain and nausea control and discharged after a few days. Has seen multiple specialist without clear etiology. Most recently had a plexus block. Does not feel like it helped at all.. Historical: - Allergies: 13:42 Lamictal; aa5 13:42 Minocin; aa5 13:42 NYSTATIN; aa5 13:42 Sulfa (Sulfonamide Antibiotics); aa5 13:42 tamsulosin; aa5 13:42 tobramycin; aa5 13:42 Toradol; aa5 13:42 Wellbutrin; aa5 13:42 Reglan; aa5 - PMHx: 13:42 Addrenal Insufficiency; Anxiety; diabetes mellitus; Hypertensive disorder; insomnia; aa5 Kidney stone; - PSHx: 13:42 abnominal aorta; kidney stents; MALS surgery; aa5 - Immunization history:: Adult Immunizations unknown. - Infectious Disease History:: Denies. - Social history:: Smoking status: Patient denies any tobacco usage or history of. - Family history:: not pertinent. - Hospitalizations: : No recent hospitalization is reported. ROS: 15:21 Constitutional: Negative for fever, chills, and weight loss, Cardiovascular: Negative rn for chest pain, palpitations, and edema, Respiratory: Negative for shortness of breath, cough, wheezing, and pleuritic chest pain, Abdomen/GI: Positive for abdominal pain with nausea MS/Extremity: Negative for injury and deformity, Skin: Negative for injury, rash, and discoloration, Neuro: Negative for headache, numbness, tingling, and seizure, Exam: 15:21 Constitutional: This is a well developed, well nourished patient who is awake, alert, rn and in no acute distress. Head/Face: Normocephalic, atraumatic. Cardiovascular: Regular rate and rhythm. No pulse deficits. Respiratory: No increased work of breathing, no retractions or nasal flaring. Abdomen/GI: Soft, no focal tenderness. No distention. No peritoneal signs. MS/ Extremity: Pulses equal, no cyanosis. Neuro: Awake and alert, GCS 15 Vital Signs: 13:37 BP 148 / 108; Pulse 74; Resp 20 S; Temp 98.4(O); Pulse Ox 99% on R/A; Weight 68.04 kg aa5 (R); Height 5 ft. 4 in. (R); 15:22 BP 152 / 76; Pulse 70; Resp 16; Pulse Ox 100% ; jb4 16:13 BP 136 / 80; Pulse 66; Resp 16; Temp 98.1; Pulse Ox 100% ; me1 13:37 Body Mass Index 25.75 (68.04 kg, 162.56 cm) aa5 MDM: 13:40 Medical Screening Exam initiated rn 16:06 Differential diagnosis: hypovolemia, idiopathic dizziness, vertigo, Chronic abdominal rn pain, pancreatitis. Data reviewed: vital signs, nurses notes, lab test result(s), radiologic studies, CT scan, and as a result, I will discharge patient. Counseling: I had a detailed discussion with the patient and/or guardian regarding the historical points, exam findings, and any diagnostic results supporting the discharge/admit diagnosis, lab results, radiology results, the need for outpatient follow up, to return to the emergency department if symptoms worsen or persist or if there are any questions or concerns that arise at home. Response to treatment: the patient's symptoms have markedly improved after treatment, and as a result, I will discharge patient. Special discussion: Based on the patient's Hx, exam, and Dx evaluation, there is no indication for emergent surgery or inpatient Tx. It is understood by the patient/guardian that if the Sx's persist or worsen they need to return immediately for re-evaluation. I discussed with the patient/guardian in detail that at this point there is no indication for admission to the hospital. It is understood, however, that if the symptoms persist or worsen the patient needs to return immediately for re-evaluation. ED course: Patient with chronic abdominal pain, no acute findings and workup today. Labs and CT abdomen pelvis grossly unremarkable for acute problem. Pain improved as well as nausea. No indication for emergent admission or transfer at this time. Recommend return precautions and follow-up with her GI doctor.. 02/19 13:40 Order name: CBC with Diff; Complete Time: 14:30 rn 02/19 13:40 Order name: CMP; Complete Time: 14:30 rn 02/19 13:40 Order name: Lipase; Complete Time: 14:30 rn 02/19 13:40 Order name: CT Abd/Pelvis - IV Contrast Only; Complete Time: 14:56 rn 02/19 13:40 Order name: IV Saline Lock; Complete Time: 14:05 rn 02/19 13:40 Order name: Labs collected and sent; Complete Time: 14:05 rn Administered Medications: 14:04 Drug: morphine IVP or IV 4 mg IVP once over 4 mins Route: IVP; Infused Over: 4 mins; ph Site: right antecubital; 15:03 Follow up: Response: No adverse reaction; Pain is decreased ph 14:04 Drug: Ondansetron IVP 4 mg IVP once; over 2 minutes Route: IVP; Site: right antecubital;ph 15:03 Follow up: Response: No adverse reaction ph 14:04 Drug: NS 0.9% IV 1000 ml IV at 1000 ml once; to be given as a bolus over 60 minutes ph Route: IV; Rate: 1000 ml; Site: right antecubital; 15:02 Follow up: Response: No adverse reaction; IV Status: Completed infusion; IV Intake: ph 1000ml 15:21 Drug: Ondansetron IVP 4 mg IVP once; over 2 minutes Route: IVP; Site: right antecubital;jb4 15:22 Drug: Diazepam PO 2 mg PO once Route: PO; jb4 15:22 Drug: morphine IVP or IV 4 mg IVP once over 4 mins Route: IVP; Infused Over: 4 mins; jb4 Site: right antecubital; Disposition Summary: 02/19/25 16:08 Discharge Ordered Notes: Location: Home rn Problem: chronic rn Symptoms: have improved rn Condition: Stable rn Diagnosis - Abdominal pain, unspecified rn Followup: rn - With: Private Physician - When: As needed - Reason: Recheck today's complaints, Re-evaluation by your physician Discharge Instructions: - Discharge Summary Sheet rn - Abdominal Pain, Adult rn Forms: - Medication Reconciliation Form rn - Antibiotic contracts intern - Prescription Opioid Use rn - Patient Portal Instructions rn - Leadership Thank You Letter rn Signatures: Dispatcher [employer] EDMS Karl Headley MD MD rn Calderon, Audri, RN RN aa5 Shawanda Mayer RN RN Vijay Bustamante RN RN jb4 Corrections: (The following items were deleted from the chart) 13:41 13:41 CBC+H.LAB.BRZ ordered. EDMS EDMS 13:41 13:41 COMPREHENSIVE METABOLIC PANEL+C.LAB.BRZ ordered. EDMS EDMS 13:41 13:41 LIPASE+C.LAB.BRZ ordered. EDMS EDMS 13:41 13:41 Abdomen Pelvis W Con+CT.RAD.BRZ ordered. EDMS EDMS
--- NOTE | 2025-02-19 16:09 | ER ---
Nurse's Notes [facility] Name: Sadia Mcpherson Age: 54 yrs Sex: Female : 1970 Arrival Date: 02/19/2025 Time: 13:27 Bed 7 Private MD: Diagnosis: Abdominal pain, unspecified Presentation: 02/19 13:37 Chief complaint: Patient states: mid abd pain and nausea/vomiting. Pt crying during aa5 triage. 13:37 Coronavirus screen: nausea, vomiting. Ebola Screen: Patient denies travel to an [facility] Ebola-affected area in the 21 days before illness onset. Initial Sepsis Screen: Does the patient meet any 2 criteria? No. Patient's initial sepsis screen is negative. Does the patient have a suspected source of infection? No. Patient's initial sepsis screen is negative. Risk Assessment: Do you want to hurt yourself or someone else? Patient reports no desire to harm self or others. Onset of symptoms was February 19, 2025. 13:37 Method Of Arrival: Wheelchair aa5 13:37 Acuity: JAYLEN 3 aa5 Historical: - Allergies: 13:42 Lamictal; aa5 13:42 Minocin; aa5 13:42 NYSTATIN; aa5 13:42 Sulfa (Sulfonamide Antibiotics); aa5 13:42 tamsulosin; aa5 13:42 tobramycin; aa5 13:42 Toradol; aa5 13:42 Wellbutrin; aa5 13:42 Reglan; aa5 - PMHx: 13:42 Addrenal Insufficiency; Anxiety; diabetes mellitus; Hypertensive disorder; insomnia; aa5 Kidney stone; - PSHx: 13:42 abnominal aorta; kidney stents; MALS surgery; aa5 - Immunization history:: Adult Immunizations unknown. - Infectious Disease History:: Denies. - Social history:: Smoking status: Patient denies any tobacco usage or history of. - Family history:: not pertinent. - Hospitalizations: : No recent hospitalization is reported. Screenin:01 [facility] ED Fall Risk Assessment (Adult) History of falling in the last 3 months, ph including since admission No falls in past 3 months (0 pts) Confusion or Disorientation No (0 pts) Intoxicated or Sedated No (0 pts) Impaired Gait No (0 pts) Mobility Assist Device Used No (0 pt) Altered Elimination No (0 pt) Score/Fall Risk Level 0 - 2 = Low Risk Oriented to surroundings, Maintained a safe environment, Hourly rounding (assess needs \T\ fall precautionary measures) done. Abuse screen: Denies threats or abuse. Denies injuries from another. Nutritional screening: No deficits noted. Tuberculosis screening: No symptoms or risk factors identified. Assessment: 14:02 General: Appears in no apparent distress. uncomfortable, well groomed, Behavior is ph calm, cooperative, appropriate for age. Pain: Complains of pain in epigastric area and left upper quadrant. Neuro: Level of Consciousness is awake, alert, obeys commands, Oriented to person, place, time, situation, Reports dizziness. Cardiovascular: Capillary refill < 3 seconds in bilateral fingers Patient's skin is warm and dry. Respiratory: Airway is patent Respiratory effort is even, unlabored, Respiratory pattern is regular, symmetrical. GI: Abdomen is non-distended, Bowel sounds present X 4 quads. Abd is soft X 4 quads Reports upper abdominal pain, nausea, vomiting. Derm: Skin is pink, warm \T\ dry. Musculoskeletal: Circulation, motion, and sensation intact. Range of motion: intact in all extremities. 15:22 Reassessment: Patient appears in no apparent distress at this time. Patient and/or jb4 family updated on plan of care and expected duration. Pain level reassessed. Patient is alert, oriented x 3, equal unlabored respirations, skin warm/dry/pink. 16:26 Reassessment: Patient appears in no apparent distress at this time. Patient and/or jb4 family updated on plan of care and expected duration. Pain level reassessed. Patient is alert, oriented x 3, equal unlabored respirations, skin warm/dry/pink. Vital Signs: 13:37 BP 148 / 108; Pulse 74; Resp 20 S; Temp 98.4(O); Pulse Ox 99% on R/A; Weight 68.04 kg aa5 (R); Height 5 ft. 4 in. (R); 15:22 BP 152 / 76; Pulse 70; Resp 16; Pulse Ox 100% ; jb4 16:13 BP 136 / 80; Pulse 66; Resp 16; Temp 98.1; Pulse Ox 100% ; me1 13:37 Body Mass Index 25.75 (68.04 kg, 162.56 cm) aa5 ED Course: 13:34 Patient arrived in ED. cj3 13:37 Arm band placed on Patient placed in an exam room, on a stretcher. aa5 13:40 Karl Headley MD is Attending Physician. rn 13:44 Triage completed. aa5 14:01 Shawanda Mayer, RN is Primary Nurse. ph 14:01 Initial lab(s) drawn, by ma, sent to lab. Inserted saline lock: 22 gauge in right ph antecubital area, using aseptic technique. Blood collected. Flushed with 10 mL NS. 14:03 Patient has correct armband on for positive identification. Bed in low position. Call ph light in reach. Side rails up X 1. Pulse ox on. NIBP on. Door closed. Noise minimized. Warm blanket given. 14:05 CBC with Diff Sent. ph 14:05 CMP Sent. ph 14:05 Lipase Sent. ph 14:46 CT Abd/Pelvis - IV Contrast Only In Process Unspecified. EDMS 15:13 Primary Nurse role handed off by Shawanda Mayer RN jb 15:13 Vijay Bustamante, RN is Primary Nurse. jb4 16:26 Provided Education on: discharge instructions.. jb4 16:26 No provider procedures requiring assistance completed. IV discontinued, intact, jb4 bleeding controlled, No redness/swelling at site. Pressure dressing applied. Administered Medications: 14:04 Drug: morphine IVP or IV 4 mg IVP once over 4 mins Route: IVP; Infused Over: 4 mins; ph Site: right antecubital; 15:03 Follow up: Response: No adverse reaction; Pain is decreased ph 14:04 Drug: Ondansetron IVP 4 mg IVP once; over 2 minutes Route: IVP; Site: right antecubital;ph 15:03 Follow up: Response: No adverse reaction ph 14:04 Drug: NS 0.9% IV 1000 ml IV at 1000 ml once; to be given as a bolus over 60 minutes ph Route: IV; Rate: 1000 ml; Site: right antecubital; 15:02 Follow up: Response: No adverse reaction; IV Status: Completed infusion; IV Intake: ph 1000ml 15:21 Drug: Ondansetron IVP 4 mg IVP once; over 2 minutes Route: IVP; Site: right antecubital;jb4 15:22 Drug: Diazepam PO 2 mg PO once Route: PO; jb4 15:22 Drug: morphine IVP or IV 4 mg IVP once over 4 mins Route: IVP; Infused Over: 4 mins; jb4 Site: right antecubital; Medication: 14:02 VIS not applicable for this client. ph Intake: 15:02 IV: 1000ml; Total: 1000ml. ph Outcome: 16:08 Discharge ordered by . rn 16:26 Discharged to home via wheelchair, with family, jb4 16:26 Condition: stable 16:26 Discharge instructions given to patient, Instructed on discharge instructions, follow up and referral plans. Demonstrated understanding of instructions, follow-up care, 16:27 Patient left the ED. jb4 Signatures: Dispatcher [employer] EDMS Karl Headley MD MD rn Calderon, Audri, RN RN simran5 Shawanda Mayer RN RN Vijay Blair RN RN jb4 Madisyn Whitman RN RN ma1 Brissa Cowart 3
[2025-02-19 16:35] VITALS: O2SAT 100
[2025-02-19 16:37] VITALS: BP 136/80; TEMP 98.1
== END 2025-02-19 16:27 | disposition home or self-care (01) ==
LOC: ER 13:27
DX: R10.9 Unspecified abdominal pain (principal); Z87.442 Personal history of urinary calculi; Z96.0 Presence of urogenital implants
CPT/HCPCS: 96361; 85025; 36415; 83690; 80053; 74177; 96375; 96374; 99284; Q9967; J2405 ×2; J7030

== ENCOUNTER 2025-02-27 12:23 | Emergency (ER) | payer OTHER ==
[2025-02-27 14:24] LABS: Absolute Basophils 0.1 K/uL (0-0.5); Absolute Lymphocytes (CBC) 1.2 K/uL (0.7-4.9); Absolute Monocytes 0.5 K/uL (0.1-1.3); Absolute Neutrophil 8.6 K/uL (1.8-8.0); Basophils % 0.5 % (0-1.3); Eosinophils % 0.4 % (0-4.4); Hematocrit 42.3 % (36.0-45.0); Hemoglobin 14.4 g/dL (12.0-15.0); Lymphocytes % 11.2 % (15.3-44.8); MCH 30.1 pg (27.0-35.0); MCV 88.5 fL (80-100); MPV 8.5 fL (7.6-11.3); Monocytes % 4.6 % (3.3-12.3); Neutrophils % 83.3 % (41.7-73.7); Nucleated Red Blood Cells % 0.1 % (0-0); Platelets 228 thou/uL (152-406); RBC Red Blood Cell Count 4.78 M/uL (3.86-4.86); Red Cell Distribution Width 15.4 % (12.1-15.2)
[2025-02-27] MEDS ORDERED: NA CHLORIDE 0.9% 1,000 ML ONE (14:24)
[2025-02-27] MEDS ORDERED: ONDANSETRON 4 MG/2 ML VIAL ONE (14:24)
[2025-02-27] MEDS ORDERED: DICYCLOMINE HCL 20 MG/2 ML AMP IM ONE (14:24)
[2025-02-27 14:40] LABS: ALT/SGPT 31 U/L (13-56); Albumin 3.7 g/dL (3.4-5.0); Alkaline Phosphatase 72 U/L (45-117); Anion Gap 10.9 mEq/L (5.0-15.0); BUN Blood Urea Nitrogen 15 mg/dL (7-18); Bicarbonate 25 mEq/L (21-32); Bilirubin Total 0.6 mg/dL (0.2-1.0); Globulin 3.8 g/dL (2.3-3.5); Glomerular Filtration Rate 69 ml/min (=/>90); Glucose Level 187 mg/dL (74-106); Lipase 27 U/L (13-75); Potassium 3.9 mEq/L (3.5-5.1); Protein, Total 7.5 g/dL (6.4-8.2); Sodium Level 139 mEq/L (136-145)
[2025-02-27 14:43] LABS: AST/SGOT < 10 U/L (15-37)
--- NOTE | 2025-02-27 14:54 | ER ---
Nurse's Notes [facility] Name: Sadia Mcpherson Age: 54 yrs Sex: Female : 1970 Arrival Date: 02/27/2025 Time: 12:23 Bed DX2 Private MD: Diagnosis: Upper abdominal pain, unspecified Presentation: 02/27 12:50 Chief complaint: Patient states: nausea, vomiting and abdominal pain started at approx ap3 0100 this morning. patient reports this "happens a lot". patient currently rates her pain as a 10/10 on the pain scale. Coronavirus screen: At this time, the client does not indicate any symptoms associated with coronavirus-19. Ebola Screen: No symptoms or risks identified at this time. Initial Sepsis Screen: Does the patient meet any 2 criteria? No. Patient's initial sepsis screen is negative. Does the patient have a suspected source of infection? No. Patient's initial sepsis screen is negative. Risk Assessment: Do you want to hurt yourself or someone else? Patient reports no desire to harm self or others. Onset of symptoms was February 27, 2025 at 01:00. 12:50 Method Of Arrival: Ambulatory ap3 12:50 Acuity: JAYLEN 3 ap3 Triage Assessment: 12:53 General: Appears uncomfortable, Behavior is calm, cooperative, appropriate for age. ap3 Pain: Complains of pain in abdomen Pain currently is 10 out of 10 on a pain scale. Neuro: Level of Consciousness is awake, alert, obeys commands, Oriented to person, place, time, situation. Cardiovascular: Patient's skin is warm and dry. Respiratory: Airway is patent Respiratory effort is even, unlabored, Respiratory pattern is regular, symmetrical. GI: Reports lower abdominal pain, upper abdominal pain, nausea, vomiting. 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 Flu vaccine is not up to date. - Infectious Disease History:: Denies. - Social history:: Smoking status: Patient denies any tobacco usage or history of. Screenin:53 Abuse screen: Denies threats or abuse. Nutritional screening: No deficits noted. ap3 Tuberculosis screening: No symptoms or risk factors identified. 14:57 [facility] ED Fall Risk Assessment (Adult) History of falling in the last 3 months, ss including since admission No falls in past 3 months (0 pts) Confusion or Disorientation No (0 pts) Intoxicated or Sedated No (0 pts) Impaired Gait No (0 pts) Mobility Assist Device Used No (0 pt) Altered Elimination No (0 pt) Score/Fall Risk Level 0 - 2 = Low Risk Oriented to surroundings, Maintained a safe environment, Educated pt \\T\\ family on fall prevention, incl call for assistance when getting out of bed, Assessed \\T\\ reinforced patient's understanding of fall precautions, Hourly rounding (assess needs \\T\\ fall precautionary measures) done, Used ambulatory aids as needed (educated on \\T\\ assisted with). Assessment: 14:52 Reassessment: PT states, "I just want to go home." Pt is unable to tolerate IV ss placement and states she wants to go home at this time. Dr. Walker notified. Pt apologizing, states, "I'm sorry." Pt verbalizes understanding importance of followup and to return to ER for further evaluation. Neuro: Level of Consciousness is awake, alert, obeys commands. Respiratory: Airway is patent Respiratory effort is even, unlabored. 14:58 GI: Bowel sounds Abd is soft and non tender. ss Vital Signs: 12:50 BP 121 / 81; Pulse 81; Resp 17; Temp 98.4(O); Pulse Ox 98% on R/A; Weight 68.04 kg; ap3 Height 5 ft. 4 in. ; Pain 10/10; 12:50 Body Mass Index 25.75 (68.04 kg, 162.56 cm) ap3 12:50 Pain Scale: Adult ap3 ED Course: 12:24 Patient arrived in ED. im 12:24 Feilsha Rizzo PA-C is PHCP. sb4 12:24 Alex Santa DO is Attending Physician. sb4 12:25 Stephanie Walker MD is Attending Physician. gb1 12:52 Triage completed. ap3 12:53 Arm band placed on right wrist. ap3 12:54 Patient has correct armband on for positive identification. ap3 14:25 Inserted saline lock: 22 gauge in right forearm, using aseptic technique. Blood am7 collected. Flushed with 10 mL NS. 14:26 CBC with Diff Sent. am7 14:26 CMP Sent. am7 14:26 Lipase Sent. am7 14:45 IV discontinued, intact, bleeding controlled, No redness/swelling at site. Pressure ss dressing applied. 14:45 Inserted saline lock: 22 gauge in left wrist, using aseptic technique. Flushed with 10 ss mL NS. 14:48 Cece Crespo, RN is Primary Nurse. ss 14:51 IV discontinued, intact, bleeding controlled, No redness/swelling at site. Pressure ss dressing applied, IV dc'd per patient request. Pt states, "it's burning!". 14:52 No provider procedures requiring assistance completed. ss 15:01 Provided Education on: discharge instructions . ss Administered Medications: 14:49 Discontinued: ns 0.9% 1000 ml IV at 1 bolus Per protocol; to be given as a bolus over ss 60 minutes 14:45 Drug: Ondansetron IVP 4 mg IVP once; over 2 minutes Route: IVP; Site: left wrist; ss 15:02 Follow up: Response: No adverse reaction; Nausea is decreased ss 14:49 Drug: NS 0.9% IV 1000 ml IV at 1 bolus Per protocol; to be given as a bolus over 60 ss minutes Route: IV; Rate: 1 bolus; Site: left wrist; 14:49 Drug: Dicyclomine IM 20 mg IM once Route: IM; Site: left gluteus; ss 15:02 Follow up: Response: No adverse reaction; Pain is decreased ss Medication: 14:52 VIS not applicable for this client. ss Outcome: 14:53 Discharge ordered by . gb1 14:58 Discharged to home ambulatory, ss 14:58 Condition: good 15:00 Discharge instructions given to patient, Instructed on discharge instructions, follow ss up and referral plans. Demonstrated understanding of instructions, follow-up care, 15:01 Patient left the ED. ss Signatures: Cece Crespo, RN RN ss Aurora Wild RN RN ap3 Felisha Rizzo PA-C PAMiky sb4 Sara Marte Gina, MD MD gb1 Chanel Hampton am7 Corrections: (The following items were deleted from the chart) 15:01 14:58 Discharge instructions given to patient, Instructed on discharge instructions, ss follow up and referral plans. medication usage, Demonstrated understanding of instructions, follow-up care, medications, Prescriptions given X 1, ss
--- NOTE | 2025-02-27 14:54 | EDPHYS ---
Physician Documentation [facility] Name: Sadia Mcpherson Age: 54 yrs Sex: Female : 1970 Arrival Date: 02/27/2025 Time: 12:23 Bed DX2 Private MD: ED Physician Stephanie Walker HPI: 02/27 14:54 This 54 yrs old Female presents to ER via Ambulatory with complaints of gb1 Abdominal Pain, Nausea/Vomiting. 14:54 54-year-old female with history of chronic abdominal pain with nausea vomiting. Patient gb1 had MAL S surgery recently and she has had pain since the procedure. She denies any fevers she has she is nauseated with some vomiting. She has history of adrenal insufficiency, anxiety, diabetes, hypertension and insomnia. Patient denies any diarrhea or any fevers at this time. Her rehabilitation construction specialist is Dr. Avila.. 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 Flu vaccine is not up to date. - Infectious Disease History:: Denies. - Social history:: Smoking status: Patient denies any tobacco usage or history of. Exam: 14:54 Constitutional: This is a well developed, well nourished patient who is awake, alert, gb1 and in no acute distress. Head/Face: Normocephalic, atraumatic. Eyes: Pupils equal round and reactive to light, extra-ocular motions intact. Lids and lashes normal. Conjunctiva and sclera are non-icteric and not injected. Cornea within normal limits. Periorbital areas with no swelling, redness, or edema. ENT: Nares patent. No nasal discharge, no septal abnormalities noted. Tympanic membranes are normal and external auditory canals are clear. Oropharynx with no redness, swelling, or masses, exudates, or evidence of obstruction, uvula midline. Mucous membranes moist. Neck: Trachea midline, no thyromegaly or masses palpated, and no cervical lymphadenopathy. Supple, full range of motion without nuchal rigidity, or vertebral point tenderness. No Meningismus. Chest/axilla: Normal chest wall appearance and motion. Nontender with no deformity. No lesions are appreciated. Cardiovascular: Regular rate and rhythm with a normal S1 and S2. No gallops, murmurs, or rubs. Normal PMI, no JVD. No pulse deficits. Respiratory: Lungs have equal breath sounds bilaterally, clear to auscultation and percussion. No rales, rhonchi or wheezes noted. No increased work of breathing, no retractions or nasal flaring. Abdomen/GI: Soft, mild midepigastric tenderness, with normal bowel sounds. No distension or tympany. No guarding or rebound. Back: No spinal tenderness. No costovertebral tenderness. Full range of motion. Skin: Warm, dry with normal turgor. Normal color with no rashes, no lesions, and no evidence of cellulitis. MS/ Extremity: Pulses equal, no cyanosis. Neurovascular intact. Full, normal range of motion. Vital Signs: 12:50 BP 121 / 81; Pulse 81; Resp 17; Temp 98.4(O); Pulse Ox 98% on R/A; Weight 68.04 kg; ap3 Height 5 ft. 4 in. ; Pain 10/10; 12:50 Body Mass Index 25.75 (68.04 kg, 162.56 cm) ap3 12:50 Pain Scale: Adult ap3 MDM: 12:57 Medical Screening Exam initiated gb1 14:54 Data reviewed: vital signs, nurses notes. ED course: 54-year-old female with history of gb1 chronic abdominal pain status post MALS asked surgery recently. She denies any fever or diarrhea she denies any travel or recent antibiotic use. Patient has multiple drug allergies and when she. 02/27 12:50 Order name: CBC with Diff gb1 02/27 12:50 Order name: CMP gb1 02/27 12:50 Order name: Lipase gb1 02/27 12:50 Order name: IV Saline Lock; Complete Time: 14 gb1 02/27 12:50 Order name: Labs collected and sent; Complete Time: gb1 Administered Medications: 14:49 Discontinued: ns 0.9% 1000 ml IV at 1 bolus Per protocol; to be given as a bolus over ss 60 minutes 14:45 Drug: Ondansetron IVP 4 mg IVP once; over 2 minutes Route: IVP; Site: left wrist; ss 15:02 Follow up: Response: No adverse reaction; Nausea is decreased ss 14:49 Drug: NS 0.9% IV 1000 ml IV at 1 bolus Per protocol; to be given as a bolus over 60 ss minutes Route: IV; Rate: 1 bolus; Site: left wrist; 14:49 Drug: Dicyclomine IM 20 mg IM once Route: IM; Site: left gluteus; ss 15:02 Follow up: Response: No adverse reaction; Pain is decreased ss Disposition Summary: 02/27/25 14:53 Discharge Ordered Notes: Location: Home gb1 Condition: Stable gb1 Diagnosis - Upper abdominal pain, unspecified gb1 Followup: gb1 - With: Private Physician - When: - Reason: Further diagnostic work-up Discharge Instructions: - Discharge Summary Sheet gb1 - Colic gb1 Forms: - Medication Reconciliation Form gb1 - Antibiotic Education gb1 - Prescription Opioid Use gb1 - Patient Portal Instructions gb1 - Leadership Thank You Letter gb1 Signatures: Dispatcher [employer] EDCece Rolle RN RN ss Prokisch, Amanda, RN RN ap3 Blocker, Gina, MD MD gb1 Corrections: (The following items were deleted from the chart) 12:50 12:50 CBC+H.LAB.BRZ ordered. EDMS EDMS 12:50 12:50 COMPREHENSIVE METABOLIC PANEL+C.LAB.BRZ ordered. EDMS EDMS 12:50 12:50 LIPASE+C.LAB.BRZ ordered. EDMS EDMS 12:50 12:50 UA Rfx Justin Cult if indicated+U.LAB.BRZ ordered. EDMS EDMS 12:50 12:50 Test, Urine+UC.LAB.BRZ ordered. EDMS EDMS
[2025-02-27 15:28] VITALS: BP 121/81; TEMP 98.4; O2SAT 98
== END 2025-02-27 15:01 | disposition home or self-care (01) ==
LOC: ER 12:23
DX: R10.13 Epigastric pain (principal); R11.2 Nausea with vomiting, unspecified; Z98.890 Other specified postprocedural states; Z87.442 Personal history of urinary calculi; Z96.0 Presence of urogenital implants
CPT/HCPCS: 85025; 36415; 83690; 80053; 96372; 96374; 99284; J0500; J2405; J7030

== ENCOUNTER 2025-05-30 11:13 | Emergency (ER) | payer OTHER ==
[2025-05-30] MEDS ORDERED: FAMOTIDINE 20 MG/2 ML VIAL IV ONE (11:44)
[2025-05-30] MEDS ORDERED: HYDROMORPHONE HCL 1 MG/ML INJ ONE ×2 (11:44→12:55)
[2025-05-30] MEDS ORDERED: NA CHLORIDE 0.9% 1,000 ML ONE (11:44)
[2025-05-30] MEDS ORDERED: ONDANSETRON 4 MG/2 ML VIAL ONE (11:44)
[2025-05-30 12:22] LABS: Absolute Lymphocytes (CBC) 1.2 K/uL (0.7-4.9); Hematocrit 41.7 % (36.0-45.0); Hemoglobin 14.0 g/dL (12.0-15.0); MCH 29.6 pg (27.0-35.0); MCHC 33.6 g/dL (32.0-36.0); MCV 88.2 fL (80-100); MPV 8.6 fL (7.6-11.3); Nucleated RBC Absolute Count 0.0 (0-0); Nucleated Red Blood Cells % 0.1 % (0-0); RBC Red Blood Cell Count 4.73 M/uL (3.86-4.86); White Blood Count 6.40 thou/uL (4.3-10.9)
--- NOTE | 2025-05-30 12:36 | RAD REPORT ---
EXAMINATION: CT ABDOMEN AND PELVIS WITH CONTRAST CLINICAL INDICATION: Abdominal pain. Prior mass TECHNIQUE: CT abdomen and pelvis was performed, after the administration of 100 cc Isovue-300.. Sagit johnny and coronal reconstructions were obtained. One or more of the following dose reduction techniques were used: Automated exposure control, adjustment of the mA and kV according to patient si ze, and iterative reconstruction. Unless otherwise specified, incidental findings do not require dedicated imaging follow-up. [id number]. Oral contrast was not given which limits evaluation of bowel and appendix. COMPARISON: .April 2025 FINDINGS: Liver, spleen, pancreas, adrenals and right kidney appear unremarkable. Mild soft tissue adjacent to the pancreatic head unchanged from 2021 likely benign. Several calculi kidney. Largest 9 mm.. Fibrosis. Renal cortical thinning is present. No hydronephrosi s. 15 mm left renal mass unchanged in size. Hounsfield unit 46. No evidence of diverticulitis. No adnexal mass Bladder wall appears thickened. : IMPRESSION: Nonobstructing left renal calculi. Renal cortical thinning presumably secondary to prior inflammation . 1.5 cm left renal mass unchanged probably a benign complex. This should be confirmed with ultrasound. Bladder wall thickening may indicate a cystitis.
[2025-05-30 12:39] LABS: Potassium 3.9 mEq/L (3.5-5.1)
[2025-05-30 12:41] LABS: ALT/SGPT 37.0 U/L (13-56); AST/SGOT 21.0 U/L (15-37); Albumin 3.9 g/dL (3.4-5.0); Albumin/Globulin Ratio 1.1 (1.1-1.8); Alkaline Phosphatase 81.0 U/L (45-117); Anion Gap 8.9 mEq/L (5.0-15.0); BUN Blood Urea Nitrogen 14.0 mg/dL (7-18); Globulin 3.7 g/dL (2.3-3.5); Glucose Level 123.0 mg/dL (74-106)
[2025-05-30 12:42] LABS: Lipase 27.0 U/L (13-75)
[2025-05-30 13:06] LABS: Urine Microscopic Reflex YN NO UMIC
--- NOTE | 2025-05-30 13:09 | ER ---
Nurse's Notes [facility] Name: Sadia Mcpherson Age: 54 yrs Sex: Female : 1970 Arrival Date: 05/30/2025 Time: 11:13 Bed 4 Private MD: Diagnosis: Abdominal pain Presentation: 05/30 11:22 Chief complaint: Patient states: Severe abdominal pain for 2 days with N/V/D. No fever. ll1 Coronavirus screen: Client denies travel out of the [place] in the last 14 days. At this time, the client does not indicate any symptoms associated with coronavirus-19. Ebola Screen: Patient denies travel to an Ebola-affected area in the 21 days before illness onset. Initial Sepsis Screen: Does the patient meet any 2 criteria? No. Patient's initial sepsis screen is negative. Does the patient have a suspected source of infection? No. Patient's initial sepsis screen is negative. Risk Assessment: Do you want to hurt yourself or someone else? Patient reports no desire to harm self or others. Onset of symptoms was May 29, 2025. 11:22 Method Of Arrival: Wheelchair ll1 11:22 Acuity: JAYLEN 3 ll1 Triage Assessment: 11:22 General: Appears distressed, uncomfortable, Behavior is cooperative, appropriate for ll1 age, restless. Pain: Complains of pain in abdomen Pain currently is 10 out of 10 on a pain scale. Quality of pain is described as aching, crampy. Neuro: Reports weakness. GI: Reports upper abdominal pain, diarrhea, nausea, vomiting. Historical: - Allergies: 11:21 Lamictal; ll1 11:21 Minocin; ll1 11:21 NYSTATIN; ll1 11:21 Phenergan; ll1 11:21 Reglan; ll1 11:21 Sulfa (Sulfonamide Antibiotics); ll1 11:21 tamsulosin; ll1 11:21 tobramycin; ll1 11:21 Toradol; ll1 11:21 Wellbutrin; ll1 11:21 Droperidol; ll1 - PMHx: 11:21 Addrenal Insufficiency; Anxiety; diabetes mellitus; Hypertensive disorder; insomnia; ll1 Kidney stone; Pancreatitis; - PSHx: 11:21 MALS surgery; ll1 - Immunization history:: Adult Immunizations up to date. - Infectious Disease History:: Denies. - Social history:: Smoking status: Patient denies any tobacco usage or history of. Screenin:30 [facility] ED Fall Risk Assessment (Adult) History of falling in the last 3 months, hb including since admission No falls in past 3 months (0 pts) Confusion or Disorientation No (0 pts) Intoxicated or Sedated No (0 pts) Impaired Gait No (0 pts) Mobility Assist Device Used No (0 pt) Altered Elimination No (0 pt) Score/Fall Risk Level 0 - 2 = Low Risk Oriented to surroundings, Maintained a safe environment, Educated pt \T\ family on fall prevention, incl call for assistance when getting out of bed. Abuse screen: Denies threats or abuse. Denies injuries from another. Nutritional screening: No deficits noted. Tuberculosis screening: No symptoms or risk factors identified. Assessment: 11:40 General: Appears in no apparent distress. uncomfortable, Behavior is cooperative, hb crying, restless. Pain: Pain currently is 10 out of 10 on a pain scale. Neuro: GCS 15. Cardiovascular: Patient's skin is warm and dry. Respiratory: Respiratory effort is even, unlabored, Respiratory pattern is regular, symmetrical. GI: Reports upper abdominal pain, nausea. : No signs and/or symptoms were reported regarding the genitourinary system. EENT: No signs and/or symptoms were reported regarding the EENT system. Derm: Skin is pink, warm \T\ dry. Musculoskeletal: No signs and/or symptoms reported regarding the musculoskeletal system. 12:30 Reassessment: Patient appears in no apparent distress at this time. Patient and/or hb family updated on plan of care and expected duration. Pain level reassessed. Vital Signs: 11:22 BP 145 / 85; Pulse 71; Resp 18; Temp 97.6; Pulse Ox 96% on R/A; Weight 68.04 kg; Height iw 5 ft. 4 in. ; Pain 10/10; 13:03 BP 129 / 75; Pulse 70; Resp 16; Pulse Ox 97% on R/A; Pain 8/10; hb 11:22 Body Mass Index 25.75 (68.04 kg, 162.56 cm) iw 11:22 Pain Scale: Adult iw 13:03 Pain Scale: Adult hb ED Course: 11:15 Patient arrived in ED. im 11:17 Rusty Rm MD is Attending Physician. sp3 11:22 Arm band placed on. ll1 11:23 Triage completed. ll1 11:45 Ranjit Castillo, SILVIA is Primary Nurse. bp 12:05 Initial lab(s) drawn, by me, sent to lab. Accessed peripheral vein via ultrasound, hb utilizing dynamic ultrasound technique using per hospital protocol. Clean \T\ dry. Dressing intact. Good blood return. Flushes easily. 20g RFA. 12:09 CBC with Diff Sent. hb 12:09 CMP Sent. hb 12:09 Lipase Sent. hb 12:14 CT Abd/Pelvis - IV Contrast Only In Process Unspecified. EDMS 12:31 Patient has correct armband on for positive identification. hb 13:48 No provider procedures requiring assistance completed. IV discontinued, intact, bp bleeding controlled, No redness/swelling at site. Pressure dressing applied. Administered Medications: 12:09 Drug: Famotidine IVP 20 mg IVP once; dilute with 10 mL 0.9% NaCl; give over 2 minutes hb Route: IVP; Site: right forearm; 13:49 Follow up: Response: No adverse reaction bp 12:09 Drug: Ondansetron IVP 4 mg IVP once; over 2 minutes Route: IVP; Site: right forearm; hb 13:49 Follow up: Response: No adverse reaction bp 12:09 Drug: NS 0.9% IV 1000 ml IV at 1 bolus Per protocol; to be given as a bolus over 60 hb minutes Route: IV; Rate: 1 bolus; Site: right forearm; 13:49 Follow up: IV Status: Completed infusion bp 12:09 Drug: HYDROmorphone IVP 1 mg IVP once Route: IVP; Site: right forearm; hb 13:49 Follow up: Response: No adverse reaction bp 13:01 Drug: HYDROmorphone IVP 1 mg IVP once Route: IVP; Site: right forearm; hb 13:49 Follow up: Response: No adverse reaction bp Medication: 11:40 VIS not applicable for this client. hb Outcome: 13:08 Discharge ordered by . sp3 13:48 Discharged to home ambulatory, bp 13:48 Condition: stable 13:48 Discharge instructions given to patient, Instructed on discharge instructions, follow up and referral plans. medication usage, Demonstrated understanding of instructions, follow-up care, medications, Prescriptions given X 1, 13:50 Patient left the ED. bp Signatures: Dispatcher [employer] Noemy Cool RN RN iw Calli Lemus RN RN hb Peltier, Brian, RN RN bp Martha Crawley RN RN ll1 Rusty Rm MD MD sp3 Sara Marte Corrections: (The following items were deleted from the chart) 11:29 11:22 68.04 kg; Height 5 ft. 4 in.; BMI: 25.7; Pain 07/21, Adult; ll1
--- NOTE | 2025-05-30 13:09 | EDPHYS ---
Physician Documentation [facility] Name: Sadia Mcpherson Age: 54 yrs Sex: Female : 1970 Arrival Date: 05/30/2025 Time: 11:13 Bed 4 Private MD: ED Physician Rusty Rm HPI: 05/30 12:10 This 54 yrs old Female presents to ER via Wheelchair with complaints of Abdominal Pain. 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 Last block was in January and the next one is due in June. Prior CT demonstrated possible cancer though pathology demonstrated no cancer. Patient presents with recurrent and similar abdominal pain to her past mid abdomen coming in waves. Patient is also having emesis. No fever, coffee grounds, blood in her emesis, melena, diarrhea, or any other signs or symptoms on ROS at this time. She is seen by GI and surgery at [facility].. Historical: - Allergies: 11:21 Lamictal; ll1 11:21 Minocin; ll1 11:21 NYSTATIN; ll1 11:21 Phenergan; ll1 11:21 Reglan; ll1 11:21 Sulfa (Sulfonamide Antibiotics); ll1 11:21 tamsulosin; ll1 11:21 tobramycin; ll1 11:21 Toradol; ll1 11:21 Wellbutrin; ll1 11:21 Droperidol; ll1 - PMHx: 11:21 Addrenal Insufficiency; Anxiety; diabetes mellitus; Hypertensive disorder; insomnia; ll1 Kidney stone; Pancreatitis; - PSHx: 11:21 MALS surgery; ll1 - Immunization history:: Adult Immunizations up to date. - Infectious Disease History:: Denies. - Social history:: Smoking status: Patient denies any tobacco usage or history of. ROS: 12:13 Constitutional: Negative for fever, chills, and weight loss, Eyes: Negative for injury, sp3 pain, redness, and discharge, ENT: Negative for injury, pain, and discharge, Neck: Negative for injury, pain, and swelling, Cardiovascular: Negative for chest pain, palpitations, and edema, Respiratory: Negative for shortness of breath, cough, wheezing, and pleuritic chest pain, Back: Negative for injury and pain, MS/Extremity: Negative for injury and deformity, Skin: Negative for injury, rash, and discoloration, Neuro: Negative for headache, weakness, numbness, tingling, and seizure, Psych: Negative for depression, anxiety, suicide ideation, homicidal ideation, and hallucinations, Allergy/Immunology: Negative for hives, rash, and allergies, Endocrine: Negative for neck swelling, polydipsia, polyuria, polyphagia, and marked weight changes, 12:13 All other systems are negative, Exam: 12:13 Constitutional: This is a well developed, well nourished patient who is awake, alert, sp3 and in no acute distress. Head/Face: Normocephalic, atraumatic. Eyes: Pupils equal round and reactive to light, extra-ocular motions intact. Lids and lashes normal. Conjunctiva and sclera are non-icteric and not injected. Cornea within normal limits. Periorbital areas with no swelling, redness, or edema. ENT: Nares patent. No nasal discharge, no septal abnormalities noted. External auditory canals are clear. Oropharynx with no redness, swelling, or masses, exudates, or evidence of obstruction, uvula midline. Mucous membranes moist. Neck: Trachea midline, no thyromegaly or masses palpated, and no cervical lymphadenopathy. Supple, full range of motion without nuchal rigidity, or vertebral point tenderness. No Meningismus. Chest/axilla: Normal chest wall appearance and motion. Nontender with no deformity. No lesions are appreciated. Cardiovascular: Regular rate and rhythm with a normal S1 and S2. No gallops, murmurs, or rubs. Normal PMI, no JVD. No pulse deficits. Respiratory: Lungs have equal breath sounds bilaterally, clear to auscultation and percussion. No rales, rhonchi or wheezes noted. No increased work of breathing, no retractions or nasal flaring. Back: No spinal tenderness. No costovertebral tenderness. Full range of motion. Skin: Warm, dry with normal turgor. Normal color with no rashes, no lesions, and no evidence of cellulitis. MS/ Extremity: Pulses equal, no cyanosis. Neurovascular intact. Full, normal range of motion. Neuro: Awake and alert, GCS 15, oriented to person, place, time, and situation. Cranial nerves II-XII grossly intact. Motor strength 5/5 in all extremities. Sensory grossly intact. Cerebellar exam normal. Normal gait. Psych: Awake, alert, with orientation to person, place and time. Behavior, mood, and affect are within normal limits. 12:13 Abdomen/GI: Periumbilical abdominal pain noted without peritoneal signs, rebound or guarding. Vital signs are normal., Vital Signs: 11:22 BP 145 / 85; Pulse 71; Resp 18; Temp 97.6; Pulse Ox 96% on R/A; Weight 68.04 kg; Height iw 5 ft. 4 in. ; Pain 10/10; 13:03 BP 129 / 75; Pulse 70; Resp 16; Pulse Ox 97% on R/A; Pain 8/10; hb 11:22 Body Mass Index 25.75 (68.04 kg, 162.56 cm) iw 11:22 Pain Scale: Adult iw 13:03 Pain Scale: Adult hb MDM: 11:21 Medical Screening Exam initiated sp3 12:14 Data reviewed: vital signs, nurses notes, old medical records, lab test result(s), sp3 radiologic studies. ED course: 54-year-old female with chronic abdominal pain with acute episode. Patient has quarterly blocks which she is due for. We will reassess with lab work and CT scan and administer pain medication in the meantime. From a differential diagnosis standpoint, clinically have ruled out any surgical emergency, sepsis, shock or any other critical process.. 05/30 11:35 Order name: CBC with Diff; Complete Time: 12:43 sp3 05/30 11:35 Order name: CMP; Complete Time: 12:43 sp3 05/30 11:35 Order name: Lipase; Complete Time: 12:43 sp3 05/30 12:44 Order name: UA Rfx Justin Cult if indicated; Complete Time: 13:07 sp3 05/30 11:39 Order name: CT Abd/Pelvis - IV Contrast Only; Complete Time: 12:43 sp3 05/30 11:36 Order name: IV Saline Lock; Complete Time: 12:09 sp3 05/30 11:36 Order name: Labs collected and sent; Complete Time: 12:09 sp3 05/30 11:36 Order name: NPO; Complete Time: 11:49 sp3 Administered Medications: 12:09 Drug: Famotidine IVP 20 mg IVP once; dilute with 10 mL 0.9% NaCl; give over 2 minutes hb Route: IVP; Site: right forearm; 13:49 Follow up: Response: No adverse reaction bp 12:09 Drug: Ondansetron IVP 4 mg IVP once; over 2 minutes Route: IVP; Site: right forearm; hb 13:49 Follow up: Response: No adverse reaction bp 12:09 Drug: NS 0.9% IV 1000 ml IV at 1 bolus Per protocol; to be given as a bolus over 60 hb minutes Route: IV; Rate: 1 bolus; Site: right forearm; 13:49 Follow up: IV Status: Completed infusion bp 12:09 Drug: HYDROmorphone IVP 1 mg IVP once Route: IVP; Site: right forearm; hb 13:49 Follow up: Response: No adverse reaction bp 13:01 Drug: HYDROmorphone IVP 1 mg IVP once Route: IVP; Site: right forearm; hb 13:49 Follow up: Response: No adverse reaction bp Disposition Summary: 05/30/25 13:08 Discharge Ordered Notes: Location: Home sp3 Condition: Stable sp3 Diagnosis - Abdominal pain sp3 Followup: sp3 - With: Private Physician - When: Upon discharge from the Emergency Department - Reason: Continuance of care Discharge Instructions: - Discharge Summary Sheet sp3 - Abdominal Pain, Adult sp3 Forms: - Medication Reconciliation Form sp3 - Antibiotic Education sp3 - Prescription Opioid Use sp3 - Patient Portal Instructions sp3 - Leadership Thank You Letter sp3 Prescriptions: - Tramadol 50 mg Oral Tablet - take 1 tablet ORAL route every 8 hours as needed; 12 tablet; Refills: 0, sp3 Product Selection Permitted Signatures: Dispatcher [employer] EDMS Calli Lemus RN RN Martha Crawley RN RN ll1 Rusty Rm MD MD sp3 Ranjit Castillo RN bp Corrections: (The following items were deleted from the chart) 12:15 12:14 ED course: 54-year-old female with chronic abdominal pain with acute episode. sp3 Patient has quarterly blocks which she is due for. We will reassess with lab work and CT scan and administer pain medication in the meantime.. sp3
[2025-05-30 17:06] VITALS: TEMP 97.6
[2025-05-30 17:10] VITALS: BP 129/75; O2SAT 97
== END 2025-05-30 13:50 | disposition home or self-care (01) ==
LOC: ER 11:13
DX: R10.33 Periumbilical pain (principal)
CPT/HCPCS: 96361; 85025; 36415; 81003; 83690; 80053; 74177; 96375; 96374; 99284; Q9967; J1171 ×2; J2405; J7030

== ENCOUNTER 2025-05-31 14:26 | Emergency (ER) | payer OTHER ==
[2025-05-31] MEDS ORDERED: HYDROMORPHONE HCL 1 MG/ML INJ ONE ×2 (16:35→17:26)
[2025-05-31] MEDS ORDERED: NA CHLORIDE 0.9% 1,000 ML ONE (16:36)
[2025-05-31] MEDS ORDERED: ONDANSETRON 4 MG/2 ML VIAL ONE ×2 (16:36→18:18)
[2025-05-31 16:44] LABS: Absolute Lymphocytes (CBC) 1.2 K/uL (0.7-4.9); Hematocrit 41.3 % (36.0-45.0); Hemoglobin 13.7 g/dL (12.0-15.0); MCH 29.3 pg (27.0-35.0); MCHC 33.2 g/dL (32.0-36.0); MCV 88.3 fL (80-100); MPV 7.9 fL (7.6-11.3); Nucleated RBC Absolute Count 0.0 (0-0); Nucleated Red Blood Cells % 0.2 % (0-0); RBC Red Blood Cell Count 4.68 M/uL (3.86-4.86); White Blood Count 5.80 thou/uL (4.3-10.9)
[2025-05-31 17:07] LABS: ALT/SGPT 31.0 U/L (13-56); AST/SGOT 18.0 U/L (15-37); Albumin 3.8 g/dL (3.4-5.0); Albumin/Globulin Ratio 1.0 (1.1-1.8); Alkaline Phosphatase 83.0 U/L (45-117); Anion Gap 10.9 mEq/L (5.0-15.0); BUN Blood Urea Nitrogen 11.0 mg/dL (7-18); Globulin 3.9 g/dL (2.3-3.5); Glucose Level 122.0 mg/dL (74-106); Lipase 25.0 U/L (13-75); Potassium 3.9 mEq/L (3.5-5.1)
--- NOTE | 2025-05-31 17:58 | EDPHYS ---
Physician Documentation [facility] Name: Sadia Mcpherson Age: 54 yrs Sex: Female : 1970 Arrival Date: 05/31/2025 Time: 14:26 Bed 13 Private MD: ED Physician Jayesh Agarwal HPI: 05/31 14:47 This 54 yrs old Female presents to ER via Ambulatory with complaints of Abdominal Pain, kb Vomiting, Dizziness. 14:47 Pt is a 54 year old female who presents for left abd pain, mid back pain and vomiting. kb States she called her GI dr at [facility] and got her MALS surgery moved up to Thursday. States they were going to try to find her a bed at [facility] so they can manage her symptoms until the surgery, but she doesn't have anyone to drive her up to [place]. . TOOL CARRIER: 18:24 Not kj2 Historical: - Allergies: 14:37 Droperidol; cm10 14:37 Lamictal; cm10 14:37 Minocin; cm10 14:37 NYSTATIN; cm10 14:37 Phenergan; cm10 14:37 Reglan; cm10 14:37 Sulfa (Sulfonamide Antibiotics); cm10 14:37 tamsulosin; cm10 14:37 tobramycin; cm10 14:37 Toradol; cm10 14:37 Wellbutrin; cm10 - PMHx: 14:37 Addrenal Insufficiency; Anxiety; diabetes mellitus; diabetes mellitus; Hypertensive cm10 disorder; insomnia; Kidney stone; Pancreatitis; - PSHx: 14:37 MALS surgery; cm10 - Immunization history:: Adult Immunizations unknown. - Infectious Disease History:: Denies. - Social history:: Smoking status: unknown. ROS: 14:46 Constitutional: As per HPI kb Exam: 14:46 Head/Face: Normocephalic, atraumatic. ENT: Moist Mucous membranes Cardiovascular: kb Regular rate Respiratory: Respirations even and unlabored. No increased work of breathing. Talking in full sentences Skin: Warm, dry with normal turgor. Normal color. MS/ Extremity: Pulses equal, no cyanosis. Neurovascular intact. Full, normal range of motion. Neuro: Awake and alert, GCS 15, oriented to person, place, time, and situation. 14:46 Constitutional: The patient appears alert, awake, uncomfortable, 14:46 Abdomen/GI: Inspection: abdomen appears normal, Bowel sounds: normal, Palpation: soft, in all quadrants, moderate abdominal tenderness, in the left upper quadrant and left lower quadrant, Vital Signs: 14:37 BP 141 / 89; Pulse 81; Resp 18; Temp 97.6(TE); Pulse Ox 100% ; Weight 68.95 kg; Height cm10 5 ft. 4 in. ; Pain 10/10; 16:48 BP 138 / 72; Pulse 78; Resp 18; Pulse Ox 100% on R/A; kj2 17:21 BP 128 / 98; Pulse 82; Resp 20; Pulse Ox 100% on R/A; kj2 18:25 BP 126 / 88; Pulse 80; Resp 18; Temp 98; Pulse Ox 100% on R/A; kj2 14:37 Body Mass Index 26.09 (68.95 kg, 162.56 cm) cm10 14:37 Pain Scale: Adult cm10 MDM: 14:31 Medical Screening Exam initiated 14:46 Data reviewed: vital signs, nurses notes. kb 16:51 Management of patient was discussed with the following: Dr Byrne, pt's GI dr at [facility]. States pt does not need to be transferred, she can wait until her procedure on Thursday. States there is nothing to do inpatient. Will treat pt's symptoms and discharge home to follow up on Thursday for MALS procedure. . 17:56 Differential diagnosis: non-specific abd pain, dehydration, abnormal electrolytes. kb Consideration of Admission/Observation Escalation of care including admission/observation considered. transfer considered but pt's GI dr recommends outpatient treatment until scheduled procedure on Thursday. Test considered but Not performed: CT: ct abd considered but was completed yesterday, result reviewed. Counseling: I had a detailed discussion with the patient and/or guardian regarding the historical points, exam findings, and any diagnostic results supporting the discharge/admit diagnosis, lab results, the need for outpatient follow up, a clinical quality manager, to return to the emergency department if symptoms worsen or persist or if there are any questions or concerns that arise at home. 05/31 14:30 Order name: CBC with Diff; Complete Time: 16:48 kb 05/31 14:30 Order name: CMP; Complete Time: 17:08 kb 08/20 14:30 Order name: Lipase; Complete Time: 17:08 kb 05/31 14:30 Order name: IV Saline Lock; Complete Time: 16:44 kb 05/31 14:30 Order name: Labs collected and sent; Complete Time: 16:44 kb Administered Medications: 16:43 Drug: Ondansetron IVP 4 mg IVP once; over 2 minutes Route: IVP; Site: right forearm; kj2 17:24 Follow up: Response: No adverse reaction kj2 18:10 Follow up: Response: No adverse reaction kj2 16:44 Drug: NS 0.9% IV 1000 ml IV at 1000 ml once; to be given as a bolus over 60 minutes kj2 Route: IV; Rate: 1000 ml; Site: right forearm; 18:24 Follow up: IV Status: Completed infusion kj2 16:44 Drug: HYDROmorphone IVP 1 mg IVP once Route: IVP; Site: right forearm; kj2 17:25 Follow up: Response: No adverse reaction kj2 17:30 Drug: HYDROmorphone IVP 1 mg IVP once Route: IVP; Site: right antecubital; kj2 18:10 Follow up: Response: No adverse reaction kj2 18:24 Follow up: Response: No adverse reaction kj2 18:10 Not Given (Patient Refused): [id number] mg PO once kj2 18:23 Drug: Ondansetron IVP 4 mg IVP once; over 2 minutes Route: IVP; Site: right antecubital;kj2 18:23 Follow up: Response: No adverse reaction kj2 Disposition: 06/01 13:51 Co-signature as Attending Physician, Jayesh Agarwal MD I agree with the assessment and zhang plan of care. Disposition Summary: 05/31/25 17:57 Discharge Ordered Notes: Location: Home kb Condition: Stable kb Diagnosis - Abdominal pain, Generalized kb Followup: kb - With: Emergency Department - When: As needed - Reason: Worsening of condition Followup: kb - With: Private Physician - When: 2 - 3 days - Reason: Recheck today's complaints, Continuance of care, Re-evaluation by your physician Discharge Instructions: - Discharge Summary Sheet kb - Abdominal Pain, Adult, [id number] kb Forms: - Medication Reconciliation Form kb - Antibiotic Education kb - Prescription Opioid Use kb - Patient Portal Instructions kb - Leadership Thank You Letter kb Signatures: Dispatcher [employer] Ashlee Barrios, MODELING AGENT-C MODELING AGENT-Jayesh Bray MD MD cha Martinez, Clarissa RN RN cm10 Michelle Mosher RN RN kj2 Corrections: (The following items were deleted from the chart) 05/31 14:50 14:47 Pt is a 54 year old female who presents for left abd pain, mid back pain and kb vomiting. . kb
--- NOTE | 2025-05-31 17:58 | ER ---
Nurse's Notes [facility] Name: Sadia Mcpherson Age: 54 yrs Sex: Female : 1970 Arrival Date: 05/31/2025 Time: 14:26 Bed 13 Private MD: Diagnosis: Abdominal pain, Generalized Presentation: 05/31 14:37 Chief complaint: Patient states: Abdominal pain and back pain onset at 11. Pt states cm10 that she was seen here yesterday for the same issue. Coronavirus screen: Client denies travel out of the [place] in the last 14 days. Ebola Screen: Patient denies travel to an Ebola-affected area in the 21 days before illness onset. Initial Sepsis Screen: Does the patient meet any 2 criteria? No. Patient's initial sepsis screen is negative. Does the patient have a suspected source of infection? No. Patient's initial sepsis screen is negative. Risk Assessment: Do you want to hurt yourself or someone else? Patient reports no desire to harm self or others. Onset of symptoms was May 31, 2025. 14:37 Method Of Arrival: Ambulatory cm10 14:37 Acuity: JAYLEN 3 cm10 Triage Assessment: 14:39 General: Appears uncomfortable, Behavior is cooperative, crying. Neuro: No deficits cm10 noted. Level of Consciousness is awake, alert, obeys commands, Oriented to person, place, time, situation, Appropriate for age. Respiratory: No deficits noted. Airway is patent Respiratory effort is even, unlabored, Respiratory pattern is regular, symmetrical. STATE EPIDEMIOLOGIST: 18:24 Not kj2 Historical: - Allergies: 14:37 Droperidol; cm10 14:37 Lamictal; cm10 14:37 Minocin; cm10 14:37 NYSTATIN; cm10 14:37 Phenergan; cm10 14:37 Reglan; cm10 14:37 Sulfa (Sulfonamide Antibiotics); cm10 14:37 tamsulosin; cm10 14:37 tobramycin; cm10 14:37 Toradol; cm10 14:37 Wellbutrin; cm10 - PMHx: 14:37 Addrenal Insufficiency; Anxiety; diabetes mellitus; diabetes mellitus; Hypertensive cm10 disorder; insomnia; Kidney stone; Pancreatitis; - PSHx: 14:37 MALS surgery; cm10 - Immunization history:: Adult Immunizations unknown. - Infectious Disease History:: Denies. - Social history:: Smoking status: unknown. Screenin:47 [facility] ED Fall Risk Assessment (Adult) History of falling in the last 3 months, kj2 including since admission No falls in past 3 months (0 pts) Confusion or Disorientation No (0 pts) Intoxicated or Sedated No (0 pts) Impaired Gait No (0 pts) Mobility Assist Device Used No (0 pt) Altered Elimination No (0 pt) Score/Fall Risk Level 0 - 2 = Low Risk Maintained a safe environment, Hourly rounding (assess needs \T\ fall precautionary measures) done. Abuse screen: Denies threats or abuse. Denies injuries from another. Nutritional screening: No deficits noted. Tuberculosis screening: No symptoms or risk factors identified. Assessment: 16:13 Reassessment: Patient and/or family updated on plan of care and expected duration. Pain ll1 level reassessed. 16:30 General: Appears uncomfortable, Behavior is cooperative, crying. Pain: Complains of kj2 pain in left lower quadrant and left upper quadrant Pain currently is 8 out of 10 on a pain scale. Neuro: Level of Consciousness is awake, alert, obeys commands, Oriented to person, place, time, situation. Cardiovascular: Patient's skin is warm and dry. Respiratory: Airway is patent Respiratory effort is even, unlabored. GI: No signs and/or symptoms were reported involving the gastrointestinal system. : No signs and/or symptoms were reported regarding the genitourinary system. 17:21 Reassessment: Patient appears in no apparent distress at this time. Patient and/or kj2 family updated on plan of care and expected duration. Pain level reassessed. Patient is alert, oriented x 3, equal unlabored respirations, skin warm/dry/pink. 18:11 GI: Bowel sounds present X 4 quads. Abd is non tender. kj2 Vital Signs: 14:37 BP 141 / 89; Pulse 81; Resp 18; Temp 97.6(TE); Pulse Ox 100% ; Weight 68.95 kg; Height cm10 5 ft. 4 in. ; Pain 10/10; 16:48 BP 138 / 72; Pulse 78; Resp 18; Pulse Ox 100% on R/A; kj2 17:21 BP 128 / 98; Pulse 82; Resp 20; Pulse Ox 100% on R/A; kj2 18:25 BP 126 / 88; Pulse 80; Resp 18; Temp 98; Pulse Ox 100% on R/A; kj2 14:37 Body Mass Index 26.09 (68.95 kg, 162.56 cm) cm10 14:37 Pain Scale: Adult cm10 ED Course: 14:29 Patient arrived in ED. mr 14:29 Abelardo Cavanaughistin, [facility]. kb 14:29 Jayesh Agarwal MD is Attending Physician. kb 14:39 Triage completed. cm10 14:39 Arm band placed on right wrist. Patient placed in waiting room. cm10 16:13 Patient placed in an exam room, on a stretcher. ll1 16:29 Michelle Mosher, SILVIA is Primary Nurse. kj2 16:30 Patient has correct armband on for positive identification. Bed in low position. Call kj2 light in reach. Provided Education on: call light. 16:45 Inserted saline lock: 22 gauge in left forearm, using aseptic technique. kj2 18:11 No provider procedures requiring assistance completed. IV discontinued, intact, kj2 bleeding controlled, No redness/swelling at site. Pressure dressing applied. Administered Medications: 16:43 Drug: Ondansetron IVP 4 mg IVP once; over 2 minutes Route: IVP; Site: right forearm; kj2 17:24 Follow up: Response: No adverse reaction kj2 18:10 Follow up: Response: No adverse reaction kj2 16:44 Drug: NS 0.9% IV 1000 ml IV at 1000 ml once; to be given as a bolus over 60 minutes kj2 Route: IV; Rate: 1000 ml; Site: right forearm; 18:24 Follow up: IV Status: Completed infusion kj2 16:44 Drug: HYDROmorphone IVP 1 mg IVP once Route: IVP; Site: right forearm; kj2 17:25 Follow up: Response: No adverse reaction kj2 17:30 Drug: HYDROmorphone IVP 1 mg IVP once Route: IVP; Site: right antecubital; kj2 18:10 Follow up: Response: No adverse reaction kj2 18:24 Follow up: Response: No adverse reaction kj2 18:10 Not Given (Patient Refused): [id number] mg PO once kj2 18:23 Drug: Ondansetron IVP 4 mg IVP once; over 2 minutes Route: IVP; Site: right antecubital;kj2 18:23 Follow up: Response: No adverse reaction kj2 Medication: 16:48 VIS not applicable for this client. kj2 Outcome: 17:57 Discharge ordered by . bebeto 18:24 Discharged to home ambulatory, kj2 18:24 Condition: stable 18:24 Discharge instructions given to patient, Instructed on discharge instructions, follow up and referral plans. Demonstrated understanding of instructions, follow-up care, 18:25 Patient left the ED. kj2 Signatures: Ashlee Cavanaugh, ENTERPRISE SALES PERSON-C ENTERPRISE SALES PERSON-Ckb Fatemeh Gray, Reg Reg mr Martha Crawley, RN RN ll1 Malia Dwyer, RN RN cm10 Michelle Mosher, RN RN kj2
[2025-05-31] MEDS ORDERED: hydrOXYzine HCL 25 MG TAB ONE (18:04)
[2025-06-01 01:35] VITALS: O2SAT 100
[2025-06-01 01:39] VITALS: BP 126/88; TEMP 98
== END 2025-05-31 18:25 | disposition home or self-care (01) ==
LOC: ER 14:26
DX: R10.84 Generalized abdominal pain (principal); R11.10 Vomiting, unspecified; Z87.442 Personal history of urinary calculi
CPT/HCPCS: 85025; 36415; 83690; 80053; J1171 ×2; J2405 ×2; J7030

== ENCOUNTER 2025-06-01 20:46 | Emergency (ER) | payer OTHER ==
[2025-06-01] MEDS ORDERED: MORPHINE 4 MG/ML SYR ONE (21:16)
[2025-06-01] MEDS ORDERED: ONDANSETRON 4 MG/2 ML VIAL ONE (21:16)
[2025-06-01] MEDS ORDERED: Ringers Lactate 1,000 ML IV ONE (21:16)
[2025-06-01] MEDS ORDERED: FAMOTIDINE 20 MG/2 ML VIAL IV ONE (21:16)
[2025-06-01 21:43] LABS: Absolute Lymphocytes (CBC) 1.8 K/uL (0.7-4.9); Hematocrit 40.6 % (36.0-45.0); Hemoglobin 13.3 g/dL (12.0-15.0); MCH 29.5 pg (27.0-35.0); MCHC 32.9 g/dL (32.0-36.0); MCV 89.7 fL (80-100); MPV 8.6 fL (7.6-11.3); Nucleated RBC Absolute Count 0.0 (0-0); Nucleated Red Blood Cells % 0.0 % (0-0); RBC Red Blood Cell Count 4.53 M/uL (3.86-4.86); White Blood Count 6.30 thou/uL (4.3-10.9)
[2025-06-01 21:59] LABS: ALT/SGPT 27.0 U/L (13-56); AST/SGOT 19.0 U/L (15-37); Albumin 3.6 g/dL (3.4-5.0); Albumin/Globulin Ratio 1.0 (1.1-1.8); Alkaline Phosphatase 73.0 U/L (45-117); Anion Gap 7.6 mEq/L (5.0-15.0); BUN Blood Urea Nitrogen 9.0 mg/dL (7-18); Globulin 3.6 g/dL (2.3-3.5); Glucose Level 100.0 mg/dL (74-106); Lipase 33.0 U/L (13-75); Potassium 3.6 mEq/L (3.5-5.1)
[2025-06-01] MEDS ORDERED: LORazepam 2 MG/ML VIAL ONE (23:05)
--- NOTE | 2025-06-01 23:34 | ER ---
Nurse's Notes [facility] Name: Sadia Mcpherson Age: 54 yrs Sex: Female : 1970 Arrival Date: 06/01/2025 Time: 20:46 Bed 7 Private MD: Irwin Buenrostro V Diagnosis: Nausea with vomiting, unspecified;Upper abdominal pain, unspecified Presentation: 06/01 21:04 Chief complaint: Patient states: epigastric/RUQ pain that radiates upward and around me1 the right side to her back, started today about 11 am. Reports n/v/d. Pain 07/21. Coronavirus screen: Vaccine status: Patient reports being unvaccinated. Ebola Screen: No symptoms or risks identified at this time. Initial Sepsis Screen: Does the patient meet any 2 criteria? No. Patient's initial sepsis screen is negative. Does the patient have a suspected source of infection? No. Patient's initial sepsis screen is negative. Risk Assessment: Do you want to hurt yourself or someone else? Patient reports no desire to harm self or others. Onset of symptoms was June 01, 2025 at 11:00. 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 - Infectious Disease History:: Denies. - Social history:: Smoking status: Patient denies any tobacco usage or history of. Screenin:03 [facility] ED Fall Risk Assessment (Adult) History of falling in the last 3 months, ha1 including since admission No falls in past 3 months (0 pts) Confusion or Disorientation No (0 pts) Intoxicated or Sedated No (0 pts) Impaired Gait No (0 pts) Mobility Assist Device Used No (0 pt) Altered Elimination No (0 pt) Score/Fall Risk Level 0 - 2 = Low Risk Oriented to surroundings, Maintained a safe environment, Educated pt \T\ family on fall prevention, incl call for assistance when getting out of bed, Hourly rounding (assess needs \T\ fall precautionary measures) done. Abuse screen: Denies threats or abuse. Denies injuries from another. Nutritional screening: No deficits noted. Tuberculosis screening: No symptoms or risk factors identified. Assessment: 21:00 General: Appears uncomfortable, Behavior is cooperative, anxious. Pain: Complains of ha1 pain in right upper quadrant Pain radiates to left upper quadrant and left lower quadrant Pain currently is 9 out of 10 on a pain scale. Quality of pain is described as aching, throbbing. Neuro: Level of Consciousness is awake, alert, obeys commands, Oriented to person, place, time, situation. Cardiovascular: Capillary refill < 3 seconds Patient's skin is warm and dry. Respiratory: Airway is patent Respiratory effort is even, unlabored, Respiratory pattern is regular, symmetrical. GI: Abdomen is round non-distended, Bowel sounds present X 4 quads. Reports lower abdominal pain, upper abdominal pain, nausea, vomiting. : No signs and/or symptoms were reported regarding the genitourinary system. Derm: Skin is pink, warm \T\ dry. Musculoskeletal: Circulation, motion, and sensation intact. Range of motion: intact in all extremities. 23:43 Reassessment: Patient appears in no apparent distress at this time. No changes from lg3 previously documented assessment. Patient and/or family updated on plan of care and expected duration. Pain level reassessed. Patient is alert, oriented x 3, equal unlabored respirations, skin warm/dry/pink. Patient states feeling better. Patient states symptoms have improved. Vital Signs: 21:04 BP 155 / 95; Pulse 73; Resp 17; Temp 98.4; Pulse Ox 99% ; Weight 67.13 kg; Height 5 ft. me1 4 in. ; Pain 10/10; 22:15 BP 134 / 86; Pulse 70; Resp 16 S; Pulse Ox 97% on R/A; lg3 23:44 BP 137 / 90; Pulse 68; Resp 17 S; Pulse Ox 98% on R/A; lg3 21:04 Body Mass Index 25.40 (67.13 kg, 162.56 cm) me1 21:04 Pain Scale: Adult ne1 ED Course: 20:48 Patient arrived in ED. gm2 20:48 Irwin Buenrostro MD is Private Physician. gm2 20:49 Jayesh Marcial PA-C [facility]. cp 20:49 Hammad Murrieta MD is Attending Physician. cp 21:06 Triage completed. me1 21:06 Arm band placed on Patient placed in an exam room. me1 21:06 Patient has correct armband on for positive identification. Placed in gown. Bed in low lg3 position. Call light in reach. Side rails up X 1. Client placed on continuous cardiac and pulse oximetry monitoring. NIBP monitoring applied. Door closed. Noise minimized. Warm blanket given. Pillow given. 21:12 Alanis Luna, SILVIA is Primary Nurse. ha1 22:14 Inserted saline lock: 22 gauge in right upper arm, using aseptic technique. lg3 22:44 XRAY Chest (1 view) In Process Unspecified. EDMS 23:32 Bari Davalos DO is Referral Physician. cp 23:44 No provider procedures requiring assistance completed. IV discontinued, intact, lg3 bleeding controlled, No redness/swelling at site. Pressure dressing applied. Administered Medications: 22:14 Drug: Ringers - Lactated Ringers Solution IV 1000 ml IV at bolus bolus; to be given as lg3 a bolus over 60 minutes Route: IV; Rate: bolus; Site: right upper arm; 23:33 Follow up: Response: No adverse reaction; IV Status: Completed infusion; IV Intake: lg3 1000ml 22:14 Drug: morphine IVP or IV 4 mg IVP once over 4 mins Route: IVP; Infused Over: 4 mins; lg3 Site: right upper arm; 23:33 Follow up: Response: No adverse reaction lg3 22:15 Drug: Famotidine IVP 20 mg IVP once; dilute with 10 mL 0.9% NaCl; give over 2 minutes lg3 Route: IVP; Site: right upper arm; 23:33 Follow up: Response: No adverse reaction lg3 22:15 Drug: Ondansetron IVP 4 mg IVP once; over 2 minutes Route: IVP; Site: right upper arm; lg3 23:34 Follow up: Response: No adverse reaction lg3 23:12 Drug: Ativan IVP 1 mg IVP once {Note: right shoulder .} Route: IVP; Site: Other; ha1 23:33 Follow up: Response: No adverse reaction; RASS: Alert and Calm (0) lg3 Medication: 23:45 VIS not applicable for this client. lg3 Intake: 23:33 IV: 1000ml; Total: 1000ml. lg3 Outcome: 23:33 Discharge ordered by MD. cp 23:44 Discharged to home ambulatory, lg3 23:44 Condition: stable 23:44 Discharge instructions given to patient, Instructed on discharge instructions, follow up and referral plans. medication usage, Demonstrated understanding of instructions, follow-up care, medications, Prescriptions given X 1, 23:45 Patient left the ED. lg3 Signatures: Dispatcher [employer] EDMS Jayesh Marcial, PA-C PA-C Sloane Kate RN RN lg3 Alanis Luna RN RN ha1 Madisyn Whitman, RN RN ne1 Manisha Lynch 2
--- NOTE | 2025-06-01 23:34 | EDPHYS ---
Physician Documentation [facility] Name: Sadia Mcpherson Age: 54 yrs Sex: Female : 1970 Arrival Date: 06/01/2025 Time: 20:46 Bed 7 Private MD: Irwin Buenrostro V ED Physician Hammad Murrieta HPI: 06/01 21:20 This 54 yrs old Female presents to ER via Ambulatory with complaints of cp Nausea/Vomiting, Abdominal Pain, Back Pain. 21:20 The patient presents to the emergency department with nausea, that is moderate, cp vomiting, that is intermittent, abdominal pain, of the epigastric area and upper abdomen. 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 - Infectious Disease History:: Denies. - Social history:: Smoking status: Patient denies any tobacco usage or history of. ROS: 21:25 Constitutional: Negative for body aches, chills, fever, cp 21:25 Eyes: Negative for injury, pain, redness, and discharge, cp 21:25 Cardiovascular: Negative for chest pain, palpitations, 21:25 Respiratory: Negative for cough, shortness of breath, wheezing, 21:25 Abdomen/GI: Positive for abdominal pain, nausea and vomiting, Negative for diarrhea, constipation, 21:25 Back: Negative for injury or acute deformity, decreased range of motion, 21:25 : Negative for urinary symptoms, 21:25 Neuro: Negative for altered mental status, dizziness, headache, weakness, 21:25 All other systems are negative, Exam: 21:30 Constitutional: The patient appears in no acute distress, alert, awake, non-toxic, well cp developed, well nourished, 21:30 Head/Face: Normocephalic, atraumatic. cp 21:30 Eyes: Periorbital structures: appear normal, Conjunctiva: normal, no exudate, no injection, Sclera: no appreciated abnormality, Lids and lashes: appear normal, bilaterally, 21:30 ENT: External ear(s): are unremarkable, Nose: is normal, Mouth: Lips: moist, Oral mucosa: moist, Posterior pharynx: Airway: no evidence of obstruction, patent, 21:30 Chest/axilla: Inspection: normal, 21:30 Cardiovascular: Rate: normal, 21:30 Respiratory: the patient does not display signs of respiratory distress, Respirations: normal, no use of accessory muscles, no retractions, labored breathing, is not present, Breath sounds: are clear throughout, no decreased breath sounds, no stridor, no wheezing, 21:30 Abdomen/GI: Inspection: abdomen appears normal, Bowel sounds: active, all quadrants, Palpation: soft, in all quadrants, moderate abdominal tenderness, in the epigastric area, right upper quadrant and left upper quadrant, rebound tenderness, is not appreciated, involuntary guarding, is not appreciated, 21:30 Back: CVA tenderness, is absent, 21:30 Skin: no rash present. 21:30 Neuro: Orientation: to person, place \T\ time. Mentation: is normal, Motor: moves all fours, strength is normal, Vital Signs: 21:04 BP 155 / 95; Pulse 73; Resp 17; Temp 98.4; Pulse Ox 99% ; Weight 67.13 kg; Height 5 ft. me1 4 in. ; Pain 10/10; 22:15 BP 134 / 86; Pulse 70; Resp 16 S; Pulse Ox 97% on R/A; lg3 23:44 BP 137 / 90; Pulse 68; Resp 17 S; Pulse Ox 98% on R/A; lg3 21:04 Body Mass Index 25.40 (67.13 kg, 162.56 cm) me1 21:04 Pain Scale: Adult me1 MDM: 22:00 Differential diagnosis: drug seeking behavior, chronic pain, choledocholithiasis, cp pancreatitis. 23:33 Medical Screening Exam initiated 23:33 Data reviewed: vital signs, nurses notes, lab test result(s), and as a result, I will cp discharge patient. 23:33 I considered the following discharge prescriptions or medication management in the emergency department Medications were administered in the Emergency Department. See MAR. 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 Response to treatment: the patient's symptoms have mildly improved after treatment. 06/01 21:13 Order name: CBC with Diff; Complete Time: 22:12 cp 06/01 22:12 Interpretation: Normal except: RDW 15.3. 06/01 21:13 Order name: CMP; Complete Time: 22:12 cp 06/01 21:13 Order name: Lipase; Complete Time: 22:12 cp 06/01 21:15 Order name: XRAY Chest (1 view) 06/01 21:13 Order name: IV Saline Lock; Complete Time: 22:14 06/01 21:13 Order name: Labs collected and sent; Complete Time: 21:57 06/01 23:01 Order name: PO challenge; Complete Time: 23:33 cp Administered Medications: 22:14 Drug: Ringers - Lactated Ringers Solution IV 1000 ml IV at bolus bolus; to be given as lg3 a bolus over 60 minutes Route: IV; Rate: bolus; Site: right upper arm; 23:33 Follow up: Response: No adverse reaction; IV Status: Completed infusion; IV Intake: lg3 1000ml 22:14 Drug: morphine IVP or IV 4 mg IVP once over 4 mins Route: IVP; Infused Over: 4 mins; lg3 Site: right upper arm; 23:33 Follow up: Response: No adverse reaction lg3 22:15 Drug: Famotidine IVP 20 mg IVP once; dilute with 10 mL 0.9% NaCl; give over 2 minutes lg3 Route: IVP; Site: right upper arm; 23:33 Follow up: Response: No adverse reaction lg3 22:15 Drug: Ondansetron IVP 4 mg IVP once; over 2 minutes Route: IVP; Site: right upper arm; lg3 23:34 Follow up: Response: No adverse reaction lg3 23:12 Drug: Ativan IVP 1 mg IVP once {Note: right shoulder .} Route: IVP; Site: Other; ha1 23:33 Follow up: Response: No adverse reaction; RASS: Alert and Calm (0) lg3 Disposition Summary: 06/01/25 23:33 Discharge Ordered Notes: Location: Home cp Problem: an ongoing problem cp Symptoms: have improved cp Condition: Stable cp Diagnosis - Nausea with vomiting, unspecified cp - Upper abdominal pain, unspecified cp Followup: cp - With: Bari Davalos DO - When: 1 - 2 days - Reason: Recheck today's complaints Discharge Instructions: - Discharge Summary Sheet cp - Abdominal Pain, Adult cp - Nausea and Vomiting, Adult cp Forms: - Medication Reconciliation Form cp - Antibiotic Education cp - Prescription Opioid Use cp - Patient Portal Instructions cp - Leadership Thank You Letter cp Prescriptions: - Zofran 4 mg Oral Tablet - take 1 tablet ORAL route every 12 hours As needed; 20 tablet; Refills: 0, cp Product Selection Permitted Signatures: Dispatcher [employer] EDMS Jayesh Marcial PA-C PAMelyssaC Sloane Kate RN RN lg3 Alanis Luna RN RN ha1 Madisyn Whitman RN RN or1
[2025-06-02 00:30] VITALS: TEMP 98.4
[2025-06-02 00:32] VITALS: BP 137/90; O2SAT 98
--- NOTE | 2025-06-02 00:39 | RAD REPORT ---
EXAM DESCRIPTION: Chest Single View CLINICAL HISTORY: upper abdomen pain COMPARISON: None TECHNIQUE: Single AP view of the chest. FINDINGS: Lung volumes adequate. Cardiac silhouette is normal in size. No pneumothorax. Probable small left effusion. No focal consolidation. No acute bony finding. IMPRESSION: Probable small left pleural effusion. No focal consolidation. Electronically signed by: Javad Chen MD 06/01/2025 11:30 PM CDT RP TYG Due to temporary technical issues with the [employer] reporting system, reports are being rafy d by the in-house radiologist without review as a courtesy to ensure prompt reporting. The interpreting radiologist is fully responsible for the content of the report. Transcribed Date/Time: 06/02/2025 12:39 AM
== END 2025-06-01 23:45 | disposition home or self-care (01) ==
LOC: ER 20:46
DX: R11.2 Nausea with vomiting, unspecified (principal); R10.10 Upper abdominal pain, unspecified; E11.9 Type 2 diabetes mellitus without complications; I10 Essential (primary) hypertension; Z88.2 Allergy status to sulfonamides; Z88.8 Allergy status to other drugs, medicaments and biological substances
CPT/HCPCS: 85025; 36415; 83690; 80053; 71045; 99284; J2405; J7120

== ENCOUNTER 2025-06-03 13:33 | Emergency (ER) | payer OTHER ==
[2025-06-03] MEDS ORDERED: LORazepam 2 MG/ML VIAL ONE (14:46)
[2025-06-03] MEDS ORDERED: HYDROMORPHONE HCL 1 MG/ML INJ ONE (14:47)
[2025-06-03] MEDS ORDERED: NA CHLORIDE 0.9% 1,000 ML ONE (14:47)
[2025-06-03] MEDS ORDERED: ONDANSETRON 4 MG/2 ML VIAL ONE ×2 (14:48→16:03)
[2025-06-03 14:59] LABS: Absolute Lymphocytes (CBC) 1.0 K/uL (0.7-4.9); Hematocrit 40.9 % (36.0-45.0); Hemoglobin 13.5 g/dL (12.0-15.0); MCH 29.4 pg (27.0-35.0); MCHC 33.0 g/dL (32.0-36.0); MCV 89.3 fL (80-100); MPV 8.6 fL (7.6-11.3); Nucleated RBC Absolute Count 0.0 (0-0); Nucleated Red Blood Cells % 0.1 % (0-0); RBC Red Blood Cell Count 4.58 M/uL (3.86-4.86); White Blood Count 9.10 thou/uL (4.3-10.9)
[2025-06-03 15:13] LABS: ALT/SGPT 19.0 U/L (13-56); AST/SGOT 13.0 U/L (15-37); Albumin 3.6 g/dL (3.4-5.0); Albumin/Globulin Ratio 1.0 (1.1-1.8); Alkaline Phosphatase 70.0 U/L (45-117); Anion Gap 11.5 mEq/L (5.0-15.0); BUN Blood Urea Nitrogen 8.0 mg/dL (7-18); Globulin 3.5 g/dL (2.3-3.5); Glucose Level 136.0 mg/dL (74-106); Potassium 3.5 mEq/L (3.5-5.1)
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
--- NOTE | 2025-06-03 15:43 | EDPHYS ---
Physician Documentation [facility] Name: Sadia Mcpherson Age: 54 yrs Sex: Female : 1970 Arrival Date: 06/03/2025 Time: 13:33 Bed 19 Private MD: ED Physician Karl Headley HPI: 06/03 16:31 This 54 yrs old Female presents to ER via EMS with complaints of dr5 Nausea/Vomiting, Abdominal Pain. 16:31 The patient presents to the emergency department with nausea, vomiting. Onset: The dr5 symptoms/episode began/occurred acutely. Onset: The symptoms/episode began/occurred acutely. Patient is a 54 female with adrenal sufficiency, anxiety, diabetes, insomnia, hypertension, pancreatic cyst coming in with ongoing abdominal pain that been going on for the past months. Patient reports that she had her endoscope yesterday by her doctor in [place] but her pain has not improved.. Historical: - Allergies: 13:57 Droperidol; ab3 13:57 Lamictal; ab3 13:57 NYSTATIN; ab3 13:57 Minocin; ab3 13:57 Reglan; ab3 13:57 Phenergan; ab3 13:57 Sulfa (Sulfonamide Antibiotics); ab3 13:57 tobramycin; ab3 13:57 Toradol; ab3 13:57 Wellbutrin; ab3 13:57 tamsulosin; ab3 - PMHx: 13:57 Addrenal Insufficiency; Anxiety; diabetes mellitus; insomnia; Hypertensive disorder; ab3 Pancreatitis; Kidney stone; - PSHx: 13:57 MALS surgery; ab3 - Immunization history:: Adult Immunizations up to date. - Infectious Disease History:: Denies. - Social history:: Smoking status: Patient denies any tobacco usage or history of. Patient/guardian denies using alcohol, street drugs, tobacco products. - Code Status:: Full code. ROS: 16:46 Constitutional: as per hpi dr5 Exam: 16:46 Constitutional: This is a well developed, well nourished patient who is awake, alert, dr5 and in no acute distress. Head/Face: Normocephalic, atraumatic. Eyes: Pupils equal round and reactive to light, extra-ocular motions intact. Lids and lashes normal. Conjunctiva and sclera are non-icteric and not injected. Cornea within normal limits. Periorbital areas with no swelling, redness, or edema. Neck: Trachea midline, no thyromegaly or masses palpated, and no cervical lymphadenopathy. Supple, full range of motion without nuchal rigidity, or vertebral point tenderness. No Meningismus. Chest/axilla: Normal chest wall appearance and motion. Nontender with no deformity. No lesions are appreciated. Cardiovascular: Regular rate and rhythm with a normal S1 and S2. Normal PMI, no JVD. No pulse deficits. Respiratory: Lungs have equal breath sounds bilaterally, clear to auscultation. No rales, rhonchi or wheezes noted. No increased work of breathing, no retractions or nasal flaring. Abdomen/GI: Soft, mild tenderness diffusely. Back: No spinal tenderness. No costovertebral tenderness. Full range of motion. Skin: Warm, dry with normal turgor. Normal color with no rashes, no lesions, and no evidence of cellulitis. MS/ Extremity: Pulses equal, no cyanosis. Neurovascular intact. Full, normal range of motion. Neuro: Awake and alert, GCS 15, oriented to person, place, time, and situation. Cranial nerves II-XII grossly intact. Motor strength 5/5 in all extremities. Sensory grossly intact. Cerebellar exam normal. Normal gait. Patient crying during initial examination Vital Signs: 13:45 BP 162 / 81; Pulse 84; Resp 18; Temp 99(O); Pulse Ox 98% on R/A; Pain 8/10; ab3 14:15 BP 147 / 78; Pulse 61; Resp 18; Pulse Ox 97% on R/A; ab3 14:30 BP 152 / 84; Pulse 69; Resp 19; Pulse Ox 98% on R/A; Pain 9/10; ab3 15:00 BP 130 / 76; Pulse 66; Resp 10; Pulse Ox 97% on R/A; ab3 15:19 Pain 6/10; ab3 15:30 BP 137 / 72; Pulse 69; Resp 14; Pulse Ox 97% on R/A; ab3 16:00 BP 142 / 79; Pulse 64; Resp 18; Pulse Ox 99% on R/A; Pain 8/10; ab3 16:38 BP 140 / 78; Pulse 69; Resp 18; Temp 98.5(O); Pulse Ox 98% on R/A; Pain 5/10; ab3 13:45 Pain Scale: Adult ab3 14:30 Pain Scale: Adult ab3 15:19 Pain Scale: Adult ab3 16:00 Pain Scale: Adult ab3 16:38 Pain Scale: Adult ab3 MDM: 13:38 Medical Screening Exam initiated dr5 16:46 Differential diagnosis: Nonspecific abd pain, gastritis, viral gastroenteritis, dr5 gastroenteritis. Data reviewed: vital signs, nurses notes, lab test result(s), CBC, white blood cell count, hemoglobin, hematocrit, platelets, electrolytes, sodium, potassium, chloride, serum bicarbonate, BUN, creatinine, serum glucose. Consideration of Admission/Observation Escalation of care including admission/observation considered. Admission considered patient found to not have pain alleviated or electrolyte abnormality. I considered the following discharge prescriptions or medication management in the emergency department I discussed and recommended Over The Counter medications, Medications were administered in the Emergency Department. See MAR. Care significantly affected by the following chronic conditions: Adrenal insufficiency, anxiety, diabetes, insomnia, and hypertension. Care significantly affected by the following Social Determinants of Health: Poor access to healthcare and/or lack of insurance, Poor access to transportation, Inadequate housing, Problems related to employment. Counseling: I had a detailed discussion with the patient and/or guardian regarding the historical points, exam findings, and any diagnostic results supporting the discharge/admit diagnosis, the presence of at least one elevated blood pressure reading (>120/80) during this emergency department visit, lab results, the need for outpatient follow up, for definitive care, a prepress manager, to return to the emergency department if symptoms worsen or persist or if there are any questions or concerns that arise at home. Medication response: Hydromorphone, Zofran, Ativan. Response to treatment: the patient's symptoms have markedly improved after treatment. Special discussion: I have referred the patient to see his PCP for further evaluation of high blood pressure. I discussed with the patient/guardian in detail that at this point there is no indication for admission to the hospital. It is understood, however, that if the symptoms persist or worsen the patient needs to return immediately for re-evaluation. Based on the history and exam findings, there is no indication for further emergent testing or inpatient evaluation. I discussed with the patient/guardian the need to see the prepress manager for further evaluation of the symptoms. ED course: Pain medication administered in ER with relief of symptoms. Patient is tolerating p.o. Recommended patient follow-up with GI doctor that did endoscope for further management. Patient states that she feels like she is at a [place] and a end because her GI doctor says that there is nothing else that they can do for her. Recommended follow-up primary care doctor as well. All question answered. Strict ER precautions given. Patient reports that she has tramadol prescription at home and I recommended that she fill that for help with pain control.. 06/03 13:38 Order name: CBC with Diff; Complete Time: 15:06 dr5 06/03 13:38 Order name: CMP; Complete Time: 15:19 dr5 Administered Medications: 14:54 Drug: NS 0.9% IV 1000 ml IV at 1000 ml once; to be given as a bolus over 60 minutes ab3 Route: IV; Rate: 1000 ml; Infused Over: 1 hrs; Site: right forearm; 15:19 Follow up: Response: No adverse reaction ab3 16:09 Follow up: IV Status: Completed infusion; IV converted to saline lock; IV Intake: [id number] 14:55 Drug: Ativan IVP 1 mg IVP once Route: IVP; Rate: per protocol; Infused Over: 2 mins; ab3 Site: right forearm; 15:19 Follow up: Response: No adverse reaction; Anxiety decreased ab3 14:57 Drug: HYDROmorphone IVP 1 mg IVP once Route: IVP; Rate: per protocol; Infused Over: 1 ab3 mins; Site: right forearm; 15:19 Follow up: Response: No adverse reaction; Pain is decreased; RASS: Alert and Calm (0) ab3 14:57 Drug: Ondansetron IVP 4 mg IVP once; over 2 minutes Route: IVP; Rate: per protocol; ab3 Infused Over: 1 mins; Site: right forearm; 15:19 Follow up: Response: No adverse reaction; Nausea is decreased ab3 16:09 Drug: Ondansetron IVP 4 mg IVP once; over 2 minutes Route: IVP; Site: right forearm; ab3 16:40 Follow up: Response: No adverse reaction; Nausea is decreased ab3 16:09 Drug: Willis PO 10 mg-325 mg 1 tabs PO once Route: PO; ab3 16:41 Follow up: Response: Medication administered at discharge. ab3 16:10 Drug: HYDROmorphone IVP 0.5 mg IVP once Route: IVP; Rate: per protocol; Infused Over: 4 ab3 mins; Site: right forearm; 16:40 Follow up: Response: No adverse reaction; Pain is decreased ab3 Disposition: 16:47 Co-signature as Attending Physician, Karl Headley MD I reviewed the patient's care rn provided by the Advanced Practice Provider and agree with the diagnosis and treatment plan. Disposition Summary: 06/03/25 15:43 Discharge Ordered Notes: Location: Home dr5 Condition: Stable dr5 Diagnosis - Nausea with vomiting, unspecified dr5 - Upper abdominal pain, unspecified dr5 Followup: dr5 - With: Emergency Department - When: As needed - Reason: Worsening of condition Followup: dr5 - With: Private Physician - When: 1 - 2 days - Reason: Recheck today's complaints, Continuance of care, Re-evaluation by your physician Discharge Instructions: - Discharge Summary Sheet dr5 - Abdominal Pain, Adult dr5 - Nausea and Vomiting, Adult dr5 Forms: - Medication Reconciliation Form dr5 - Patient Portal Instructions dr5 - Leadership Thank You Letter dr5 Critical care time excluding procedures: 16:49 Critical care time: Bedside Care: 15 minutes, Consultation: 15 minutes. Total time: 30 dr5 minutes Signatures: Dispatcher [employer] EDMS Karl Headley MD MD rn Blaylock, Allie, RN RN ab3 Geoff Porras, CANDIDA-C VARNISH MELTER-Cdr5
[2025-06-03] MEDS ORDERED: HYDROCODONE/APAP 10/325 TAB ONE (16:03)
[2025-06-03] MEDS ORDERED: HYDROMORPHONE HCL 0.5 MG/0.5 ML INJ ONE (16:03)
[2025-06-03 18:08] VITALS: BP 140/78; TEMP 98.5; O2SAT 98
== END 2025-06-03 16:47 | disposition home or self-care (01) ==
LOC: ER 13:33
DX: R11.2 Nausea with vomiting, unspecified (principal); R10.10 Upper abdominal pain, unspecified; Z87.442 Personal history of urinary calculi
CPT/HCPCS: 96361; 85025; 36415; 80053; 96375; 96374; 99285; J1171 ×2; J2405 ×2; J7030

== ENCOUNTER 2025-06-05 08:31 | Emergency (ER) | payer OTHER ==
[2025-06-05] MEDS ORDERED: ONDANSETRON 4 MG/2 ML VIAL ONE (08:59)
[2025-06-05] MEDS ORDERED: HYDROMORPHONE HCL 1 MG/ML INJ ONE (08:59)
[2025-06-05] MEDS ORDERED: FAMOTIDINE 20 MG/2 ML VIAL IV ONE (09:00)
[2025-06-05 10:10] LABS: Absolute Lymphocytes (CBC) 1.1 K/uL (0.7-4.9); Hematocrit 41.6 % (36.0-45.0); Hemoglobin 14.1 g/dL (12.0-15.0); MCH 30.0 pg (27.0-35.0); MCHC 33.9 g/dL (32.0-36.0); MCV 88.6 fL (80-100); MPV 9.3 fL (7.6-11.3); Nucleated RBC Absolute Count 0.0 (0-0); Nucleated Red Blood Cells % 0.0 % (0-0); RBC Red Blood Cell Count 4.70 M/uL (3.86-4.86); White Blood Count 5.90 thou/uL (4.3-10.9)
[2025-06-05 10:22] LABS: ALT/SGPT 23.0 U/L (13-56); AST/SGOT 12.0 U/L (15-37); Albumin 3.7 g/dL (3.4-5.0); Albumin/Globulin Ratio 1.1 (1.1-1.8); Alkaline Phosphatase 66.0 U/L (45-117); Anion Gap 8.6 mEq/L (5.0-15.0); BUN Blood Urea Nitrogen 9.0 mg/dL (7-18); Globulin 3.5 g/dL (2.3-3.5); Glucose Level 128.0 mg/dL (74-106); Lipase 23.0 U/L (13-75); Potassium 3.6 mEq/L (3.5-5.1)
[2025-06-05] MEDS ORDERED: HYDROCODONE/APAP 5/325 MG TAB ONE (10:51)
--- NOTE | 2025-06-05 11:12 | ER ---
Nurse's Notes [facility] Name: Sadia Mcpherson Age: 54 yrs Sex: Female : 1970 Arrival Date: 06/05/2025 Time: 08:31 Bed 14 Private MD: Diagnosis: Abdominal pain, unspecified;Essential (primary) hypertension Presentation: 06/05 08:46 Chief complaint: Patient states: Abd pain with N/V/D. Ebola Screen: Patient denies ll1 travel to an Ebola-affected area in the 21 days before illness onset. Initial Sepsis Screen: Does the patient meet any 2 criteria? No. Patient's initial sepsis screen is negative. Does the patient have a suspected source of infection? No. Patient's initial sepsis screen is negative. Risk Assessment: Do you want to hurt yourself or someone else? Patient reports no desire to harm self or others. 08:46 Acuity: JAYLEN 3 ll1 08:46 Method Of Arrival: Ambulatory 1 11:34 Coronavirus screen: At this time, the client does not indicate any symptoms associated ar8 with coronavirus-19. Triage Assessment: 08:55 General: Appears in no apparent distress. Behavior is cooperative, appropriate for age, bp anxious. Pain: Complains of pain in back and abdomen. EENT: No deficits noted. Neuro: No deficits noted. Cardiovascular: No deficits noted. Respiratory: No deficits noted. GI: Reports upper abdominal pain, nausea, vomiting. : No signs and/or symptoms were reported regarding the genitourinary system. Derm: No deficits noted. Musculoskeletal: No deficits noted. Historical: - Allergies: 08:46 Droperidol; ll1 08:46 Lamictal; ll1 08:46 Minocin; ll1 08:46 NYSTATIN; ll1 08:46 Phenergan; ll1 08:46 Reglan; ll1 08:46 Sulfa (Sulfonamide Antibiotics); ll1 08:46 tamsulosin; ll1 08:46 tobramycin; ll1 08:46 Toradol; ll1 08:46 Wellbutrin; ll1 - PMHx: 08:46 Addrenal Insufficiency; Anxiety; diabetes mellitus; Hypertensive disorder; insomnia; ll1 Kidney stone; Pancreatitis; - PSHx: 08:46 MALS surgery; ll1 - Immunization history:: Adult Immunizations up to date. - Social history:: Smoking status: Patient denies any tobacco usage or history of. Screenin:16 [facility] ED Fall Risk Assessment (Adult) History of falling in the last 3 months, ar8 including since admission No falls in past 3 months (0 pts) Confusion or Disorientation No (0 pts) Intoxicated or Sedated No (0 pts) Impaired Gait No (0 pts) Mobility Assist Device Used No (0 pt) Altered Elimination No (0 pt) Score/Fall Risk Level 0 - 2 = Low Risk. Abuse screen: Denies threats or abuse. Nutritional screening: No deficits noted. Tuberculosis screening: No symptoms or risk factors identified. Assessment: 10:15 Reassessment: See triage assessment. ar8 Vital Signs: 08:55 BP 139 / 96; Pulse 73; Resp 16; Temp 98; Pulse Ox 98% ; bp 10:00 BP 145 / 95; Pulse 66; Resp 18; Pulse Ox 98% on R/A; ar8 11:00 BP 144 / 97; Pulse 65; Resp 18; Pulse Ox 97% on R/A; Pain 8/10; ar8 11:33 Pain 7/10; ar8 11:00 Pain Scale: Adult ar8 11:33 Pain Scale: Adult ar8 ED Course: 08:33 Patient arrived in ED. im 08:34 Alex Santa DO is Attending Physician. ms3 08:35 Arm band placed on Patient placed in an exam room, on a stretcher. ll1 08:47 Triage completed. ll1 08:55 Ranjit Castillo, RN is Primary Nurse. bp 09:00 Bed in low position. Call light in reach. Side rails up X2. ar8 09:00 Provided Education on: plan of care. ar8 09:00 No provider procedures requiring assistance completed. ar8 09:13 Initial lab(s) drawn, by wi, sent to lab. Inserted saline lock: 22 gauge in right bp forearm, using aseptic technique. Blood collected. Flushed with 10 mL NS. 11:33 IV discontinued, intact, bleeding controlled, No redness/swelling at site. Pressure ar8 dressing applied. Administered Medications: 09:12 Drug: HYDROmorphone IVP 1 mg IVP once Route: IVP; Site: right forearm; bp 09:45 Follow up: Response: No adverse reaction; Pain is decreased ar8 09:13 Drug: Famotidine IVP 20 mg IVP once; dilute with 10 mL 0.9% NaCl; give over 2 minutes bp Route: IVP; Site: right forearm; 09:45 Follow up: Response: No adverse reaction ar8 09:13 Drug: Ondansetron IVP 4 mg IVP once; over 2 minutes Route: IVP; Site: right forearm; bp 09:45 Follow up: Response: No adverse reaction; Nausea is decreased ar8 10:54 Drug: HYDROcodone-acetaminophen PO 5 mg-325 mg 1 tabs PO once Route: PO; ar8 11:33 Follow up: Pain 04/20 Adult; Response: No adverse reaction; Pain is decreased ar8 Medication: 11:34 VIS not applicable for this client. ar8 Outcome: 11:12 Discharge ordered by . ms3 11:34 Discharged to home ambulatory, ar8 11:34 Condition: stable 11:34 Discharge instructions given to patient, Instructed on discharge instructions, follow up and referral plans. Demonstrated understanding of instructions, follow-up care, 11:35 Patient left the ED. ar8 Signatures: Ranjit Castillo, RN RN bp Martha Crawley RN RN ll1 Alex Santa DO DO ms3 Sara Marte Andrea, RN RN ar8
--- NOTE | 2025-06-05 11:13 | EDPHYS ---
Physician Documentation [facility] Name: Sadia Mcpherson Age: 54 yrs Sex: Female : 1970 Arrival Date: 06/05/2025 Time: 08:31 Bed 14 Private MD: ED Physician Alex Santa HPI: 06/05 08:59 This 54 yrs old Female presents to ER via Ambulatory with complaints of Abdominal Pain, ms3 Nausea/Vomiting/Diarrhea, Dizziness. 08:59 54-year-old female past medical history of adrenal insufficiency, anxiety, diabetes, ms3 hypertension, insomnia, kidney stones, pancreatitis presents to the emergency department for epigastric abdominal pain that radiates to her back. Patient states she had a celiac plexus block performed on Thursday and the pain has become worse. Patient states she has had multiple emergency department visits for this. She rates her pain a 10/10. She denies any alleviating or inciting factors.. Historical: - Allergies: 08:46 Droperidol; ll1 08:46 Lamictal; ll1 08:46 Minocin; ll1 08:46 NYSTATIN; ll1 08:46 Phenergan; ll1 08:46 Reglan; ll1 08:46 Sulfa (Sulfonamide Antibiotics); ll1 08:46 tamsulosin; ll1 08:46 tobramycin; ll1 08:46 Toradol; ll1 08:46 Wellbutrin; ll1 - PMHx: 08:46 Addrenal Insufficiency; Anxiety; diabetes mellitus; Hypertensive disorder; insomnia; ll1 Kidney stone; Pancreatitis; - PSHx: 08:46 MALS surgery; ll1 - Immunization history:: Adult Immunizations up to date. - Social history:: Smoking status: Patient denies any tobacco usage or history of. ROS: 08:59 Constitutional: Negative for fever, and chills. Cardiovascular: Negative for chest ms3 pain, and palpitations. Respiratory: Negative for shortness of breath, cough, wheezing, and pleuritic chest pain, 08:59 MS/Extremity: Negative for injury and deformity, Skin: Negative for injury, rash, and discoloration, 08:59 Abdomen/GI: Positive for abdominal pain, Exam: 08:59 Constitutional: This is a well developed, well nourished patient who is awake, alert, ms3 and in no acute distress. Cardiovascular: Regular rate and rhythm with a normal S1 and S2. No gallops, murmurs, or rubs. Normal PMI, no JVD. No pulse deficits. Respiratory: Lungs have equal breath sounds bilaterally, clear to auscultation and percussion. No rales, rhonchi or wheezes noted. No increased work of breathing, no retractions or nasal flaring. 08:59 Skin: Warm, dry with normal turgor. Normal color with no rashes, no lesions, and no evidence of cellulitis. 08:59 Abdomen/GI: Inspection: abdomen appears normal, Bowel sounds: normal, in all quadrants, Palpation: abdomen is soft and non-tender, Vital Signs: 08:55 BP 139 / 96; Pulse 73; Resp 16; Temp 98; Pulse Ox 98% ; bp 10:00 BP 145 / 95; Pulse 66; Resp 18; Pulse Ox 98% on R/A; ar8 11:00 BP 144 / 97; Pulse 65; Resp 18; Pulse Ox 97% on R/A; Pain 8/10; ar8 11:33 Pain 7/10; ar8 11:00 Pain Scale: Adult ar8 11:33 Pain Scale: Adult ar8 MDM: 08:35 Medical Screening Exam initiated ms3 08:59 Differential diagnosis: Nonspecific abd pain, gastritis, Pancreatitis. ms3 10:50 Data reviewed: vital signs, nurses notes, lab test result(s), and as a result, I will ms3 discharge patient. I considered the following discharge prescriptions or medication management in the emergency department Medications were administered in the Emergency Department. See MAR. Counseling: I had a detailed discussion with the patient and/or guardian regarding the historical points, exam findings, and any diagnostic results supporting the discharge/admit diagnosis, lab results, the need for outpatient follow up, to return to the emergency department if symptoms worsen or persist or if there are any questions or concerns that arise at home. Special discussion: Based on the patient's Hx, exam, and Dx evaluation, there is no indication for emergent surgery or inpatient Tx. It is understood by the patient/guardian that if the Sx's persist or worsen they need to return immediately for re-evaluation. ED course: Discussed normal labs with patient. Patient seen in the emergency department on May 30, , for similar symptoms. Patient states she currently has a pain management physician. Discussed with patient necessity to follow-up with gastroenterology and her pain management physician. Patient has hydrocodone at home along with Zofran. No prescriptions given at this time. All questions were answered. Return precautions were discussed to include worsening symptoms, fevers, or any other concerns. On reevaluation patient's pain is improved, patient is alert and oriented x 4, in no apparent distress, nontoxic-appearing, speaking full sentences.. 06/05 08:50 Order name: CBC with Diff; Complete Time: 10:38 ms3 06/05 08:50 Order name: CMP; Complete Time: 10:38 ms3 06/05 08:50 Order name: Lipase; Complete Time: 10:38 ms3 06/05 08:50 Order name: IV Saline Lock; Complete Time: 09:12 ms3 06/05 08:50 Order name: Labs collected and sent; Complete Time: 09:12 ms3 Administered Medications: 09:12 Drug: HYDROmorphone IVP 1 mg IVP once Route: IVP; Site: right forearm; bp 09:45 Follow up: Response: No adverse reaction; Pain is decreased ar8 09:13 Drug: Famotidine IVP 20 mg IVP once; dilute with 10 mL 0.9% NaCl; give over 2 minutes bp Route: IVP; Site: right forearm; 09:45 Follow up: Response: No adverse reaction ar8 09:13 Drug: Ondansetron IVP 4 mg IVP once; over 2 minutes Route: IVP; Site: right forearm; bp 09:45 Follow up: Response: No adverse reaction; Nausea is decreased ar8 10:54 Drug: HYDROcodone-acetaminophen PO 5 mg-325 mg 1 tabs PO once Route: PO; ar8 11:33 Follow up: Pain 7/10 Adult; Response: No adverse reaction; Pain is decreased ar8 Disposition Summary: 06/05/25 11:12 Discharge Ordered Notes: Location: Home ms3 Condition: Stable ms3 Diagnosis - Abdominal pain, unspecified ms3 - Essential (primary) hypertension ms3 Followup: ms3 - With: Private Physician - When: 2 - 3 days - Reason: Recheck today's complaints Discharge Instructions: - Discharge Summary Sheet ms3 - Abdominal Pain, Adult ms3 Forms: - Medication Reconciliation Form ms3 - Antibiotic Education ms3 - Prescription Opioid Use ms3 - Patient Portal Instructions ms3 - Leadership Thank You Letter ms3 Signatures: Dispatcher [employer] Ranjit Liu, RN RN bp Martha Crawley RN RN ll1 Alex Santa DO DO ms3 Gee Werner RN RN ar8
[2025-06-05 11:48] VITALS: TEMP 98
[2025-06-05 11:51] VITALS: BP 144/97; O2SAT 97
== END 2025-06-05 11:35 | disposition home or self-care (01) ==
LOC: ER 08:31
DX: R10.13 Epigastric pain (principal); I10 Essential (primary) hypertension; Z87.442 Personal history of urinary calculi
CPT/HCPCS: 85025; 36415; 83690; 80053; J1171; J2405

== ENCOUNTER 2025-06-07 09:37 | Emergency (ER) | payer OTHER ==
[2025-06-07] MEDS ORDERED: FAMOTIDINE 20 MG/2 ML VIAL IV ONE (10:16)
[2025-06-07] MEDS ORDERED: NA CHLORIDE 0.9% 1,000 ML ONE (10:16)
[2025-06-07 10:57] LABS: Absolute Lymphocytes (CBC) 1.3 K/uL (0.7-4.9); Hematocrit 42.7 % (36.0-45.0); Hemoglobin 14.1 g/dL (12.0-15.0); MCH 29.3 pg (27.0-35.0); MCHC 33.0 g/dL (32.0-36.0); MCV 88.7 fL (80-100); MPV 8.8 fL (7.6-11.3); Nucleated RBC Absolute Count 0.0 (0-0); Nucleated Red Blood Cells % 0.1 % (0-0); RBC Red Blood Cell Count 4.82 M/uL (3.86-4.86); White Blood Count 8.70 thou/uL (4.3-10.9)
[2025-06-07 11:10] LABS: PT Prothrombin Time 11.8 SECONDS (10-13.0); Protime INR 1.05
[2025-06-07] MEDS ORDERED: ONDANSETRON 4 MG/2 ML VIAL ONE (11:15)
[2025-06-07] MEDS ORDERED: HYDROMORPHONE HCL 1 MG/ML INJ ONE ×2 (11:15→13:50)
[2025-06-07 11:20] LABS: ALT/SGPT 25 U/L (13-56); AST/SGOT 12 U/L (15-37); Albumin 3.7 g/dL (3.4-5.0); Albumin/Globulin Ratio 1.0 (1.1-1.8); Alkaline Phosphatase 69 U/L (45-117); Anion Gap 10.6 mEq/L (5.0-15.0); BUN Blood Urea Nitrogen 17 mg/dL (7-18); Globulin 3.8 g/dL (2.3-3.5); Glucose Level 195 mg/dL (74-106); Lipase 29 U/L (13-75); Magnesium 2.1 mg/dL (1.6-2.4); NT PRO-BNP 113 pg/mL (<125); Potassium 3.6 mEq/L (3.5-5.1)
[2025-06-07 11:22] LABS: Bilirubin Indirect, Calculated 0.4 mg/dL (0.2-0.8); Troponin High Sensitivity < 3.0 pg/mL (<58.9)
--- NOTE | 2025-06-07 11:29 | RAD REPORT ---
EXAMINATION: ONE VIEW CHEST XR CLINICAL INDICATION: Female, 54 years old.,ABDOMINAL DISTENTION TECHNIQUE: Frontal chest projection is submitted. Examination is limited by patient positioning and t echnique. COMPARISON: 06/01/2025 FINDINGS: The lungs are well inflated and clear. No pneumothorax or sizable effusion. The heart is normal in s ize. Mediastinal contours are unremarkable. IMPRESSION: No acute intrathoracic abnormalities.
--- NOTE | 2025-06-07 12:23 | RAD REPORT ---
EXAMINATION: CT Abdomen Pelvis W Contrast CLINICAL INDICATION: Female, 54 years old. ABD PAIN TECHNIQUE: CT abdomen and pelvis was performed, after the administration of IV contrast, [facility]. Axial, sagittal and coronal reconstructions were obtained. One or more of the following dose reduction techniques were used: Automated exposure control, adjustment of the mA and k V according to patient size, and iterative reconstruction. Unless otherwise specified, incidental findings do not require dedicated imaging follow-up. COMPARISON: 05/30/2025 FINDINGS: Motion artifact limits evaluation along the mid abdomen on the venous phase. LOWER CHEST: The visualized lung bases are clear. LIVER: Normal in size and contour. No focal lesion. BILIARY SYSTEM: No suspicious abnormalities. SPLEEN: Normal size. No focal lesion. PANCREAS: No mass, ductal dilation, or juan jose-pancreatic fluid. ADRENALS: Normal; no mass. KIDNEYS: Normal size and contour. Left lower renal pole calculi largest measuring up to 9 mm, stable. Exophytic anterior left renal cortex 1.7 cm mildly hyperdense, stable over multiple prior exams allowing for differences in measurement plane. No hydronephrosis. URINARY BLADDER: Unremarkable. GASTROINTESTINAL TRACT: No evidence of free air, significant intra-abdominal free fluid, bowel obstru ction or abscess. APPENDIX: Normal appendix. LYMPH NODES: No lymphadenopathy. MUSCULOSKELETAL: No acute or suspicious osseous abnormality. ADDITIONAL FINDINGS: None. IMPRESSION: Stable nonobstructing left renal calculi. No other acute or concerning abnormalities seen in the abdomen or pelvis. Stable exophytic 1.7 cm cystic lesion, favored to be benign.
[2025-06-07 13:25] LABS: Urine Microscopic Reflex YN NO UMIC
--- NOTE | 2025-06-07 13:37 | ER ---
Nurse's Notes [facility] Name: Sadia Mcpherson Age: 54 yrs Sex: Female : 1970 Arrival Date: 06/07/2025 Time: 09:37 Bed 17 Private MD: Diagnosis: Epigastric abdominal tenderness;Vomiting;Other chronic pain Presentation: 06/07 09:46 Chief complaint: Patient states: LUQ and right mid abdominal pain started at 0500 with jl7 nausea. Coronavirus screen: At this time, the client does not indicate any symptoms associated with coronavirus-19. Ebola Screen: No symptoms or risks identified at this time. Initial Sepsis Screen: Does the patient meet any 2 criteria? No. Patient's initial sepsis screen is negative. Does the patient have a suspected source of infection? No. Patient's initial sepsis screen is negative. Risk Assessment: Do you want to hurt yourself or someone else? Patient reports no desire to harm self or others. Onset of symptoms was June 07, 2025 at 05:00. 09:46 Method Of Arrival: Ambulatory jl7 09:46 Acuity: JAYLEN 3 jl7 Triage Assessment: 09:48 General: Appears in no apparent distress. uncomfortable, ill, Behavior is cooperative, jl7 anxious, crying. Pain: Complains of pain in anterior aspect of right lateral abdomen and left upper quadrant Pain currently is 10 out of 10 on a pain scale. GI: Reports nausea, vomiting. STATISTICAL ANALYST: 09:48 LMP N/A - Post-menopause, Not jl7 Historical: - Allergies: 09:48 Droperidol; jl7 09:48 Lamictal; jl7 09:48 Minocin; jl7 09:48 NYSTATIN; jl7 09:48 Phenergan; jl7 09:48 Reglan; jl7 09:48 Sulfa (Sulfonamide Antibiotics); jl7 09:48 tamsulosin; jl7 09:48 tobramycin; jl7 09:48 Toradol; jl7 09:48 Wellbutrin; jl7 09:48 GABAPENTIN; jl7 09:48 Bupropion; jl7 - PMHx: 09:48 Addrenal Insufficiency; Anxiety; diabetes mellitus; Hypertensive disorder; insomnia; jl7 Kidney stone; Pancreatitis; - PSHx: 09:48 MALS surgery; jl7 - Immunization history:: Adult Immunizations unknown. - Infectious Disease History:: Denies. - Social history:: Smoking status: Patient denies any tobacco usage or history of. Screenin:49 [facility] ED Fall Risk Assessment (Adult) History of falling in the last 3 months, cm10 including since admission No falls in past 3 months (0 pts) Confusion or Disorientation No (0 pts) Intoxicated or Sedated No (0 pts) Impaired Gait No (0 pts) Mobility Assist Device Used No (0 pt) Altered Elimination No (0 pt) Score/Fall Risk Level 0 - 2 = Low Risk Oriented to surroundings, Maintained a safe environment, Hourly rounding (assess needs \T\ fall precautionary measures) done. Abuse screen: Denies threats or abuse. Denies injuries from another. Nutritional screening: No deficits noted. Tuberculosis screening: No symptoms or risk factors identified. Assessment: 10:50 General: Appears uncomfortable, Behavior is crying. Pain: Complains of pain in abdomen cm10 Pain currently is 10 out of 10 on a pain scale. Neuro: No deficits noted. Level of Consciousness is awake, alert, obeys commands, Oriented to person, place, time, situation, Appropriate for age. Respiratory: No deficits noted. Airway is patent Respiratory effort is even, unlabored, Respiratory pattern is regular, symmetrical. GI: Abdomen is flat, non-distended, Reports lower abdominal pain, upper abdominal pain, nausea, vomiting. 13:07 Reassessment: Patient appears in no apparent distress at this time. Patient and/or cm10 family updated on plan of care and expected duration. Pain level reassessed. Patient is alert, oriented x 3, equal unlabored respirations, skin warm/dry/pink. Patient states symptoms have not improved. Vital Signs: 09:46 BP 138 / 88; Pulse 90; Resp 15; Temp 99.4; Pulse Ox 100% ; Weight 65.77 kg; Height 5 jl7 ft. 4 in. ; Pain 10/10; 13:00 BP 143 / 98; Pulse 65; Resp 15; Pulse Ox 97% on R/A; cm10 13:30 BP 163 / 97; Pulse 64; Resp 15; Pulse Ox 96% on R/A; cm10 14:00 BP 150 / 96; Pulse 71; Resp 15; Pulse Ox 96% ; cm10 09:46 Body Mass Index 24.89 (65.77 kg, 162.56 cm) jl7 09:46 Pain Scale: Adult jl7 ED Course: 09:41 Patient arrived in ED. cj3 09:48 Triage completed. jl7 09:48 Arm band placed on right wrist. jl7 09:49 Jayesh Agarwal MD is Attending Physician. zhang 10:23 Missed attempt(s): 20 gauge in right antecubital area. Bleeding controlled, band aid bc6 applied, catheter tip intact. 10:24 Missed attempt(s): 22 gauge in right wrist. Bleeding controlled, band aid applied, bc6 catheter tip intact. 10:40 XRAY Chest (1 view) In Process Unspecified. EDMS 10:47 Malia Dwyer, SILVIA is Primary Nurse. cm10 10:48 Accessed peripheral vein via ultrasound, utilizing dynamic ultrasound technique Blood cm10 collected. Clean \T\ dry. Dressing intact. Good blood return. Flushes easily. 20g right ac. 10:49 Patient has correct armband on for positive identification. Bed in low position. Call cm10 light in reach. Side rails up X 1. 11:10 CT Abd/Pelvis - IV Contrast Only In Process Unspecified. EDMS 11:41 EKG done, by ED staff, reviewed by Jayesh Agarwal MD. me1 13:07 Patient requests pain medication. cm10 13:22 ED physician to see patient. cm10 14:11 Provided Education on: Follow-up instructions. cm10 14:11 No provider procedures requiring assistance completed. IV discontinued, intact, cm10 bleeding controlled, No redness/swelling at site. Pressure dressing applied. Administered Medications: 10:47 Drug: NS 0.9% IV 1000 ml IV at 1000 ml once; to be given as a bolus over 60 minutes cm10 Route: IV; Rate: 1000 ml; Site: right antecubital; 11:45 Follow up: Response: No adverse reaction; IV Status: Completed infusion; IV Intake: cm10 1000ml 10:47 Drug: Famotidine IVP 20 mg IVP once; dilute with 10 mL 0.9% NaCl; give over 2 minutes cm10 Route: IVP; Site: right antecubital; 13:07 Follow up: Response: No adverse reaction cm10 11:32 Drug: HYDROmorphone IVP 1 mg IVP once Route: IVP; Site: right antecubital; 13:07 Follow up: Response: No adverse reaction cm10 11:32 Drug: Ondansetron IVP 8 mg IVP once; over 2 minutes Route: IVP; Site: right antecubital;iw 13:07 Follow up: Response: No adverse reaction cm10 13:56 Drug: HYDROmorphone IVP 1 mg IVP once Route: IVP; Site: right antecubital; cm10 14:10 Follow up: Response: No adverse reaction cm10 Medication: 14:11 VIS not applicable for this client. cm10 Intake: 11:45 IV: 1000ml; Total: 1000ml. cm10 Outcome: 13:36 Discharge ordered by . zhang 14:11 Discharged to home ambulatory, via uber cm10 14:11 Condition: stable 14:11 Discharge instructions given to patient, Instructed on discharge instructions, follow up and referral plans. medication usage, Demonstrated understanding of instructions, follow-up care, medications, Prescriptions given X 3, 14:12 Patient left the ED. cm10 Signatures: Dispatcher [employer] EDJayesh Malin MD MD cha Williams, Irene, RN SILVIA iw Eric Diego RN RN jl7 Akosua Lindsey6 Malia Dwyer RN RN 10 Madisyn Whitman, RN RN me1 Brissa Cowart 3
--- NOTE | 2025-06-07 13:37 | EDPHYS ---
Physician Documentation [facility] Name: Sadia Mcpherson Age: 54 yrs Sex: Female : 1970 Arrival Date: 06/07/2025 Time: 09:37 Bed 17 Private MD: MP Physician Jayesh Agarwal HPI: 06/07 11:15 This 54 yrs old Female presents to ER via Ambulatory with complaints of zhang Abdominal Pain, Nausea/Vomiting, Back Pain, Dizziness. 11:15 The patient presents to the emergency department with nausea, vomiting, abdominal pain, zhang of the epigastric area, right upper quadrant and left upper quadrant. Onset: The symptoms/episode began/occurred 3 day(s) ago. Possible causes: unknown. The symptoms are aggravated by nothing. The symptoms are alleviated by nothing. Associated signs and symptoms: The patient has no apparent associated signs or symptoms. Severity of symptoms: At their worst the symptoms were moderate in the emergency department the symptoms are unchanged. The patient has experienced similar episodes in the past, multiple times. 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 - Infectious Disease History:: Denies. - Social history:: Smoking status: Patient denies any tobacco usage or history of. ROS: 11:16 Constitutional: Negative for fever, chills, and weight loss, Eyes: Negative for injury, zhang pain, redness, and discharge, ENT: Negative for injury, pain, and discharge, Neck: Negative for injury, pain, and swelling, Cardiovascular: Negative for chest pain, palpitations, and edema, Respiratory: Negative for shortness of breath, cough, wheezing, and pleuritic chest pain, Back: Negative for injury and pain, : Negative for injury, bleeding, discharge, and swelling, MS/Extremity: Negative for injury and deformity, Skin: Negative for injury, rash, and discoloration, Neuro: Negative for headache, weakness, numbness, tingling, and seizure, Psych: Negative for depression, anxiety, suicide ideation, homicidal ideation, and hallucinations, Allergy/Immunology: Negative for hives, rash, and allergies, Endocrine: Negative for neck swelling, polydipsia, polyuria, polyphagia, and marked weight changes, Hematologic/Lymphatic: Negative for swollen nodes, abnormal bleeding, and unusual bruising, 11:16 Abdomen/GI: Positive for abdominal pain, nausea and vomiting, Negative for hematemesis, black/tarry stool, rectal bleeding, 11:16 Abdomen/GI: Positive for of the epigastric area, right upper quadrant and left upper quadrant, Exam: 11:16 Constitutional: This is a well developed, well nourished patient who is awake, alert, zhang and in no acute distress. Head/Face: Normocephalic, atraumatic. Eyes: Pupils equal round and reactive to light, extra-ocular motions intact. Lids and lashes normal. Conjunctiva and sclera are non-icteric and not injected. Cornea within normal limits. Periorbital areas with no swelling, redness, or edema. ENT: Nares patent. No nasal discharge, no septal abnormalities noted. Tympanic membranes are normal and external auditory canals are clear. Oropharynx with no redness, swelling, or masses, exudates, or evidence of obstruction, uvula midline. Mucous membranes moist. Neck: Trachea midline, no thyromegaly or masses palpated, and no cervical lymphadenopathy. Supple, full range of motion without nuchal rigidity, or vertebral point tenderness. No Meningismus. Chest/axilla: Normal chest wall appearance and motion. Nontender with no deformity. No lesions are appreciated. Cardiovascular: Regular rate and rhythm with a normal S1 and S2. No gallops, murmurs, or rubs. Normal PMI, no JVD. No pulse deficits. Respiratory: Lungs have equal breath sounds bilaterally, clear to auscultation and percussion. No rales, rhonchi or wheezes noted. No increased work of breathing, no retractions or nasal flaring. Back: No spinal tenderness. No costovertebral tenderness. Full range of motion. Skin: Warm, dry with normal turgor. Normal color with no rashes, no lesions, and no evidence of cellulitis. MS/ Extremity: Pulses equal, no cyanosis. Neurovascular intact. Full, normal range of motion., bilateral aka Neuro: Awake and alert, GCS 15, oriented to person, place, time, and situation. Cranial nerves II-XII grossly intact. Motor strength 5/5 in all extremities. Sensory grossly intact. Cerebellar exam normal. Normal gait. Psych: Awake, alert, with orientation to person, place and time. Behavior, mood, and affect are within normal limits. 11:16 Abdomen/GI: Inspection: distension, that is mild, Bowel sounds: normal, Palpation: mild abdominal tenderness, moderate abdominal tenderness, in the epigastric area, right upper quadrant and left upper quadrant, Liver: no appreciated palpable abnormalities, Hernia: not appreciated, 11:16 Musculoskeletal/extremity: ROM: no acute changes, intact in all extremities, full active range of motion, full passive range of motion, Circulation is intact in all extremities. Pulses: are normal with no appreciated deficits, Sensation intact. Compartment Syndrome exam of affected extremity: is normal. Weight bearing: able to fully bear weight, 11:40 ECG was reviewed by the Attending Physician. [facility] Vital Signs: 09:46 BP 138 / 88; Pulse 90; Resp 15; Temp 99.4; Pulse Ox 100% ; Weight 65.77 kg; Height 5 jl7 ft. 4 in. ; Pain 10/10; 13:00 BP 143 / 98; Pulse 65; Resp 15; Pulse Ox 97% on R/A; cm10 13:30 BP 163 / 97; Pulse 64; Resp 15; Pulse Ox 96% on R/A; cm10 14:00 BP 150 / 96; Pulse 71; Resp 15; Pulse Ox 96% ; cm10 09:46 Body Mass Index 24.89 (65.77 kg, 162.56 cm) [facility] 09:46 Pain Scale: Adult [facility] MDM: 09:49 Medical Screening Exam initiated [facility] 11:18 Differential diagnosis: Nonspecific abd pain, gastritis, cholecystitis, pancreatitis, zhang appendicitis, diverticulitis, viral gastroenteritis, gastroenteritis, acute coronary syndrome, appendicitis, bowel obstruction, coronary artery disease, cholecystitis, Cholelithiasis, diverticulitis, gastritis, gastroesophageal reflux disease, GI Bleed, Hepatitis, Herpes Zoster. Data reviewed: vital signs, nurses notes, lab test result(s), EKG, radiologic studies, CT scan, plain films. Consideration of Admission/Observation Escalation of care including admission/observation considered. I considered the following discharge prescriptions or medication management in the emergency department Medications were administered in the Emergency Department. See MAR. Independent interpretation of the following test(s) in the Emergency Department EKG: See my EKG interpretation above. Test considered but Not performed: MRI: no mrcp. Historians other than the Patient: pt well informed. Care significantly affected by the following chronic conditions: Diabetes, Hypertension, Obesity, anxiety, adrenal insuffency. 06/07 09:51 Order name: Basic Metabolic Panel; Complete Time: 11:49 06/07 09:51 Order name: CBC with Diff; Complete Time: 11:49 06/07 09:51 Order name: LFT's; Complete Time: 11:49 06/07 09:51 Order name: Magnesium; Complete Time: 11:49 06/07 09:51 Order name: NT PRO-BNP; Complete Time: 11:49 06/07 09:51 Order name: PT-INR; Complete Time: 11:49 06/07 09:51 Order name: Troponin HS; Complete Time: 11:49 06/07 09:51 Order name: Lipase; Complete Time: 11:49 06/07 09:51 Order name: UA Rfx Justin Cult if indicated; Complete Time: 13:33 06/07 09:51 Order name: XRAY Chest (1 view); Complete Time: 11:49 06/07 09:51 Order name: CT Abd/Pelvis - IV Contrast Only; Complete Time: 12:26 06/07 09:51 Order name: Cardiac monitoring; Complete Time: 11:41 06/07 09:51 Order name: EKG - Nurse/Tech; Complete Time: 11:41 06/07 09:51 Order name: IV Saline Lock; Complete Time: 10:48 06/07 09:51 Order name: Labs collected and sent; Complete Time: 10:48 06/07 09:51 Order name: O2 Per Protocol; Complete Time: 10:48 /27 09:51 Order name: O2 Sat Monitoring; Complete Time: 10:48 zhang EC:40 Rate is 69 beats/min. Rhythm is regular. QRS [place] is Normal. OK interval is normal. QRS zhang interval is normal. QT interval is normal. No Q waves. T waves are Normal. No ST changes noted. Clinical impression: Normal ECG and No evidence of ischemia. Interpreted by me. Reviewed by me. Administered Medications: 10:47 Drug: NS 0.9% IV 1000 ml IV at 1000 ml once; to be given as a bolus over 60 minutes cm10 Route: IV; Rate: 1000 ml; Site: right antecubital; 11:45 Follow up: Response: No adverse reaction; IV Status: Completed infusion; IV Intake: cm10 1000ml 10:47 Drug: Famotidine IVP 20 mg IVP once; dilute with 10 mL 0.9% NaCl; give over 2 minutes cm10 Route: IVP; Site: right antecubital; 13:07 Follow up: Response: No adverse reaction cm10 11:32 Drug: HYDROmorphone IVP 1 mg IVP once Route: IVP; Site: right antecubital; iw 13:07 Follow up: Response: No adverse reaction cm10 11:32 Drug: Ondansetron IVP 8 mg IVP once; over 2 minutes Route: IVP; Site: right antecubital;iw 13:07 Follow up: Response: No adverse reaction cm10 13:56 Drug: HYDROmorphone IVP 1 mg IVP once Route: IVP; Site: right antecubital; cm10 14:10 Follow up: Response: No adverse reaction cm10 Disposition Summary: 06/07/25 13:36 Discharge Ordered Notes: Location: Home zhang Problem: new zhang Symptoms: have improved zhang Condition: Stable zhang Diagnosis - Epigastric abdominal tenderness zhang - Vomiting zhang - Other chronic pain zhang Followup: zhang - With: Private Physician - When: 2 - 3 days - Reason: Recheck today's complaints, Continuance of care, Re-evaluation by your physician Discharge Instructions: - Discharge Summary Sheet zhang - Abdominal Pain, Adult zhang - Chronic Pain, Adult zhang - Nausea and Vomiting, Adult zhang - Nausea and Vomiting, Adult, [id number] zhang - Abdominal Pain, Adult, [id number] zhang Forms: - Medication Reconciliation Form zhang - Antibiotic Education zhang - Prescription Opioid Use zhang - Patient Portal Instructions zhang - Leadership Thank You Letter [facility] Prescriptions: - Pepcid 20 mg Oral tablet - take 1 tablet ORAL route every 12 hours for 21 days; 42 tablet; Refills: 0, [facility] Product Selection Permitted - dicyclomine 20 mg Oral tablet - take 1 tablet ORAL route 4 times per day; 28 tablet; Refills: 0, Product zhang Selection Permitted - ondansetron 8 mg Oral Tablet,disintegrating - take 1 tablet ORAL route every 8 hours; 28 tablet; Refills: 0, Product zhang Selection Permitted Signatures: Dispatcher [employer] EDMS Jayesh Agarwal MD MD cha Williams, Irene RN RN iw Eric Diego RN RN jl7 Malia Dwyer RN RN cm10 Corrections: (The following items were deleted from the chart) 09:51 09:51 BASIC METABOLIC PANEL+C.LAB.BRZ ordered. EDMS EDMS 09:51 09:51 CBC+H.LAB.BRZ ordered. EDMS EDMS 09:51 09:51 HEPATIC FUNCTION+C.LAB.BRZ ordered. EDMS EDMS 09:51 09:51 MAGNESIUM+C.LAB.BRZ ordered. EDMS EDMS 09:51 09:51 PROBNP+C.LAB.BRZ ordered. EDMS EDMS 09:51 09:51 PROTIME (+INR)+COAG.LAB.BRZ ordered. EDMS EDMS 09:51 09:51 Troponin High Sensitivity+C.LAB.BRZ ordered. EDMS EDMS 09:51 09:51 LIPASE+C.LAB.BRZ ordered. EDMS EDMS 09:51 09:51 UA Rfx Justin Cult if indicated+U.LAB.BRZ ordered. EDMS EDMS 09:51 09:51 Chest Single View+RAD.RAD.BRZ ordered. EDMS EDMS 09:51 09:51 Abdomen Pelvis W Con+CT.RAD.BRZ ordered. EDMS EDMS
[2025-06-07 17:45] VITALS: TEMP 99.4
[2025-06-07 17:50] VITALS: O2SAT 96
[2025-06-07 17:52] VITALS: BP 150/96
== END 2025-06-07 14:12 | disposition home or self-care (01) ==
LOC: ER 09:37
DX: R10.816 Epigastric abdominal tenderness (principal); R11.10 Vomiting, unspecified; G89.29 Other chronic pain; Z87.442 Personal history of urinary calculi
CPT/HCPCS: 85025; 80048; 36415; 83735; 85610; 80076; 81003; 84484; 83690; 83880; 74177; 71045; Q9967; J1171 ×2; J2405; J7030; 93005

== ENCOUNTER 2025-06-09 17:29 | Emergency (ER) | payer OTHER ==
[2025-06-09 18:18] LABS: Urine Microscopic Reflex YN NO UMIC
[2025-06-09 18:18] LABS: Absolute Lymphocytes (CBC) 1.4 K/uL (0.7-4.9); Hematocrit 44.5 % (36.0-45.0); Hemoglobin 14.5 g/dL (12.0-15.0); MCH 29.0 pg (27.0-35.0); MCHC 32.7 g/dL (32.0-36.0); MCV 88.8 fL (80-100); MPV 8.8 fL (7.6-11.3); Nucleated RBC Absolute Count 0.0 (0-0); Nucleated Red Blood Cells % 0.0 % (0-0); RBC Red Blood Cell Count 5.01 M/uL (3.86-4.86); White Blood Count 8.80 thou/uL (4.3-10.9)
[2025-06-09] MEDS ORDERED: LORazepam 2 MG/ML VIAL ONE (18:23)
[2025-06-09] MEDS ORDERED: ONDANSETRON 4 MG/2 ML VIAL ONE (18:24)
[2025-06-09] MEDS ORDERED: DICYCLOMINE HCL 20 MG/2 ML AMP IM ONE (19:03)
--- NOTE | 2025-06-09 19:06 | RAD REPORT ---
EXAM: Chest Single View HISTORY: 54 years Female vomiting COMPARISON: 06/07/2025 FINDINGS: LUNGS/PLEURA: The lungs are clear. No pleural effusions or pneumothorax. No pulmonary edema. CARDIAC/MEDIASTINUM: The cardiac silhouette is within normal limits. UPPER ABDOMEN: No significant abnormality. BONES: No acute abnormality. LINES/TUBES/OTHER: N/A IMPRESSION: No evidence of acute cardiopulmonary disease.
[2025-06-09 19:12] LABS: ALT/SGPT 26 U/L (13-56); Albumin 4.0 g/dL (3.4-5.0); Albumin/Globulin Ratio 1.0 (1.1-1.8); Alkaline Phosphatase 72 U/L (45-117); Anion Gap 12.3 mEq/L (5.0-15.0); BUN Blood Urea Nitrogen 26 mg/dL (7-18); Globulin 4.0 g/dL (2.3-3.5); Glucose Level 225 mg/dL (74-106); Lipase 31 U/L (13-75); Potassium 4.3 mEq/L (3.5-5.1)
[2025-06-09 19:14] LABS: AST/SGOT < 10 U/L (15-37)
[2025-06-09] MEDS ORDERED: NA CHLORIDE 0.9% 1,000 ML ONE (19:41)
--- NOTE | 2025-06-09 19:57 | ER ---
Nurse's Notes [facility] Name: Sadia Mcpherson Age: 54 yrs Sex: Female : 1970 Arrival Date: 06/09/2025 Time: 17:29 Bed 13 Private MD: Diagnosis: Nausea with vomiting, unspecified;Abdominal pain, unspecified-chronic Presentation: 06/09 17:40 Chief complaint: Patient states: RUQ abdominal pain onset today. Pt describes the pain cm10 as a sharp constant pain. pt also reports nausea, vomiting and diarrhea. Coronavirus screen: Client denies travel out of the [place] in the last 14 days. Ebola Screen: Patient denies travel to an Ebola-affected area in the 21 days before illness onset. Initial Sepsis Screen: Does the patient meet any 2 criteria? No. Patient's initial sepsis screen is negative. Does the patient have a suspected source of infection? No. Patient's initial sepsis screen is negative. Risk Assessment: Do you want to hurt yourself or someone else? Patient reports no desire to harm self or others. Onset of symptoms was June 09, 2025. 17:40 Method Of Arrival: Wheelchair cm10 17:40 Acuity: JAYLEN 3 cm10 Triage Assessment: 17:42 General: Appears uncomfortable, Behavior is crying. Pain: Complains of pain in abdomen cm10 Pain does not radiate. Pain currently is 10 out of 10 on a pain scale. Quality of pain is described as stabbing, Is continuous, chronic. Neuro: No deficits noted. Level of Consciousness is awake, alert, obeys commands, Oriented to person, place, time, situation, Appropriate for age. Respiratory: No deficits noted. Airway is patent Respiratory effort is even, unlabored, Respiratory pattern is regular, symmetrical. Historical: - Allergies: 17:42 Bupropion; cm10 17:42 Droperidol; cm10 17:42 GABAPENTIN; cm10 17:42 Lamictal; cm10 17:42 Minocin; cm10 17:42 NYSTATIN; cm10 17:42 Phenergan; cm10 17:42 Reglan; cm10 17:42 Sulfa (Sulfonamide Antibiotics); cm10 17:42 tamsulosin; cm10 17:42 tobramycin; cm10 17:42 Toradol; cm10 17:42 Wellbutrin; cm10 - PMHx: 17:42 Addrenal Insufficiency; Anxiety; diabetes mellitus; Hypertensive disorder; insomnia; cm10 Kidney stone; Pancreatitis; - PSHx: 17:42 MALS surgery; cm10 - Immunization history:: Adult Immunizations up to date. - Infectious Disease History:: Denies. - Social history:: Smoking status: unknown. Screenin:[facility] ED Fall Risk Assessment (Adult) History of falling in the last 3 months, kj2 including since admission No falls in past 3 months (0 pts) Confusion or Disorientation No (0 pts) Intoxicated or Sedated No (0 pts) Impaired Gait No (0 pts) Mobility Assist Device Used No (0 pt) Altered Elimination No (0 pt) Score/Fall Risk Level 0 - 2 = Low Risk Maintained a safe environment, Hourly rounding (assess needs \T\ fall precautionary measures) done. Abuse screen: Denies threats or abuse. Denies injuries from another. Nutritional screening: No deficits noted. Tuberculosis screening: No symptoms or risk factors identified. Assessment: 17:55 General: Appears in no apparent distress. Behavior is cooperative. Pain: Complains of kj2 pain in abdomen Pain currently is 8 out of 10 on a pain scale. Neuro: Level of Consciousness is awake, alert, Oriented to person, place, time, situation. Cardiovascular: Patient's skin is warm and dry. Respiratory: Airway is patent Respiratory effort is unlabored. GI: Bowel sounds present X 4 quads. Abd is non tender X 4 quads. : No signs and/or symptoms were reported regarding the genitourinary system. 19:00 Reassessment: Patient appears in no apparent distress at this time. Patient and/or kj2 family updated on plan of care and expected duration. Pain level reassessed. Patient is alert, oriented x 3, equal unlabored respirations, skin warm/dry/pink. 19:54 Reassessment: Patient appears in no apparent distress at this time. Patient and/or kj2 family updated on plan of care and expected duration. Pain level reassessed. Patient is alert, oriented x 3, equal unlabored respirations, skin warm/dry/pink. Vital Signs: 17:40 BP 149 / 108; Pulse 87; Resp 15; Temp 98.5(O); Pulse Ox 98% on R/A; Weight 64.41 kg; cm10 Height 5 ft. 4 in. ; Pain 10/10; 17:50 BP 149 / 108; Pulse 85; Resp 18; Pulse Ox 97% ; kj2 19:00 BP 150 / 98; Pulse 79; Resp 18; Pulse Ox 100% on R/A; kj2 19:54 BP 137 / 97; Pulse 75; Resp 18; Pulse Ox 97% ; kj2 20:32 BP 139 / 78; Pulse 73; Resp 18; Pulse Ox 99% on R/A; tb4 17:40 Body Mass Index 24.37 (64.41 kg, 162.56 cm) cm10 17:40 Pain Scale: Adult cm10 ED Course: 17:31 Patient arrived in ED. im 17:34 Jayesh Marcial PA-C is PHCP. cp 17:34 Karl Headley MD is Attending Physician. cp 17:42 Triage completed. cm10 17:43 Arm band placed on right wrist. Patient placed in an exam room, on a stretcher. cm10 17:50 Michelle Mosher RN is Primary Nurse. kj2 17:50 Patient has correct armband on for positive identification. Provided Education on: call kj2 light. 18:09 Accessed peripheral vein via ultrasound, utilizing dynamic ultrasound technique using hb per hospital protocol. Clean \T\ dry. Dressing intact. Good blood return. Flushes easily. 20g RFA. 18:10 Initial lab(s) drawn, by ED staff, sent to lab. ts3 18:10 Urine collected: clean catch specimen, sent to lab. ts3 18:44 X-ray completed. Portable x-ray completed in exam room. Patient tolerated procedure sw well. 18:48 XRAY Chest (1 view) In Process Unspecified. EDMS 18:55 Report given to SILVIA Wooten. kj2 19:04 Hammad Murrieta MD is Attending Physician. cp 19:43 Bari Davalos DO is Referral Physician. cp Administered Medications: 18:28 Drug: Ativan IVP 1 mg IVP once Route: IVP; Site: right forearm; kj2 19:53 Follow up: Response: No adverse reaction kj2 18:28 Drug: Ondansetron IVP 2 mg IVP once; over 2 minutes Route: IVP; Site: right forearm; kj2 19:53 Follow up: Response: No adverse reaction kj2 19:09 Drug: Dicyclomine IM 20 mg IM once Route: IM; Site: right deltoid; kj2 20:31 Follow up: Response: No adverse reaction tb4 19:55 Drug: NS 0.9% IV 1000 ml IV at 1000 ml once; to be given as a bolus over 60 minutes kj2 Route: IV; Rate: 1000 ml; Site: right forearm; 20:32 Follow up: Response: No adverse reaction; IV Status: Completed infusion tb4 20:31 Drug: Meclizine PO 25 mg PO once Route: PO; tb4 Medication: 18:20 VIS not applicable for this client. kj2 Outcome: 19:57 Discharge ordered by . maria elena 20:53 Patient left the ED. ha1 Signatures: Dispatcher [employer] EDMS Syeda Fernandez Corey, PA-C PA-C Calli Boone, RN RN Alanis Posey RN RN ha1 Sara Marte Clarissa RN RN cm10 Michelle Mosher RN RN kj2 Sugar Rizzo RN RN tb4 Juanita Strong ts3 Corrections: (The following items were deleted from the chart) 18:11 18:09 Inserted saline lock: 20 gauge in right forearm, using aseptic technique. Blood hb collected. Flushed with 10 mL NS ts3
--- NOTE | 2025-06-09 19:57 | EDPHYS ---
Physician Documentation [facility] Name: Sadia Mcpherson Age: 54 yrs Sex: Female : 1970 Arrival Date: 06/09/2025 Time: 17:29 Bed 13 Private MD: ED Physician Hammad Murrieta HPI: 06/09 17:55 This 54 yrs old Female presents to ER via Wheelchair with complaints of Abdominal Pain, cp Nausea/Vomiting/Diarrhea, Low Back Pain, Dizziness. 17:55 The patient presents with abdominal pain in the right upper quadrant, right lower cp quadrant. Onset: The symptoms/episode began/occurred today. Associated signs and symptoms: Pertinent positives: nausea and vomiting, diarrhea, dizziness. 17:55 The patient has experienced similar episodes in the past, chronically. The patient has cp been recently seen at the [facility] Emergency Department, this week, for similar complaints labs were performed, CT scan was performed, multiple visits with last visit 2 days ago. Patient reports pain management prescribes hydrocodone for chronic pain but reports it is not controlling pain. Reports called office of pain management doctor and was told to go to ED. Historical: - Allergies: 17:42 Bupropion; cm10 17:42 Droperidol; cm10 17:42 GABAPENTIN; cm10 17:42 Lamictal; cm10 17:42 Minocin; cm10 17:42 NYSTATIN; cm10 17:42 Phenergan; cm10 17:42 Reglan; cm10 17:42 Sulfa (Sulfonamide Antibiotics); cm10 17:42 tamsulosin; cm10 17:42 tobramycin; cm10 17:42 Toradol; cm10 17:42 Wellbutrin; cm10 - PMHx: 17:42 Addrenal Insufficiency; Anxiety; diabetes mellitus; Hypertensive disorder; insomnia; cm10 Kidney stone; Pancreatitis; - PSHx: 17:42 MALS surgery; cm10 - Immunization history:: Adult Immunizations up to date. - Infectious Disease History:: Denies. - Social history:: Smoking status: unknown. ROS: 18:00 Constitutional: Negative for body aches, chills, fever, poor PO intake, cp 18:00 Eyes: Negative for injury, pain, redness, and discharge, cp 18:00 ENT: Negative for drainage from ear(s), ear pain, sore throat, difficulty swallowing, difficulty handling secretions, 18:00 Cardiovascular: Negative for chest pain, edema, palpitations, 18:00 Respiratory: Negative for cough, shortness of breath, wheezing, 18:00 Abdomen/GI: Positive for abdominal pain, nausea and vomiting, diarrhea, Negative for constipation, hematemesis, black/tarry stool, rectal bleeding, 18:00 Back: Negative for pain at rest, pain with movement, 18:00 Neuro: Negative for altered mental status, dizziness, headache, weakness, 18:00 All other systems are negative, Exam: 18:05 Constitutional: The patient appears in no acute distress, alert, awake, cp non-diaphoretic, non-toxic, well developed, well nourished, uncomfortable, 18:05 Head/Face: Normocephalic, atraumatic. cp 18:05 Eyes: Periorbital structures: appear normal, Conjunctiva: normal, no exudate, no injection, Sclera: no appreciated abnormality, Lids and lashes: appear normal, bilaterally, 18:05 ENT: External ear(s): are unremarkable, Nose: is normal, Mouth: Lips: moist, Oral mucosa: moist, Posterior pharynx: Airway: no evidence of obstruction, patent, 18:05 Chest/axilla: Inspection: normal, 18:05 Cardiovascular: Rate: normal, Rhythm: regular, Edema: is not appreciated, JVD: is not appreciated, 18:05 Respiratory: the patient does not display signs of respiratory distress, Respirations: normal, no use of accessory muscles, no retractions, labored breathing, is not present, Breath sounds: are clear throughout, no decreased breath sounds, no stridor, no wheezing, 18:05 Abdomen/GI: Inspection: abdomen appears normal, Bowel sounds: active, all quadrants, Palpation: soft, in all quadrants, moderate abdominal tenderness, in the epigastric area, right upper quadrant and right lower quadrant, Vital Signs: 17:40 BP 149 / 108; Pulse 87; Resp 15; Temp 98.5(O); Pulse Ox 98% on R/A; Weight 64.41 kg; cm10 Height 5 ft. 4 in. ; Pain 10/10; 17:50 BP 149 / 108; Pulse 85; Resp 18; Pulse Ox 97% ; kj2 19:00 BP 150 / 98; Pulse 79; Resp 18; Pulse Ox 100% on R/A; kj2 19:54 BP 137 / 97; Pulse 75; Resp 18; Pulse Ox 97% ; kj2 20:32 BP 139 / 78; Pulse 73; Resp 18; Pulse Ox 99% on R/A; tb4 17:40 Body Mass Index 24.37 (64.41 kg, 162.56 cm) cm10 17:40 Pain Scale: Adult cm10 MDM: 17:35 Medical Screening Exam initiated cp 19:56 Data reviewed: lab test result(s), and as a result, I will discharge patient. cp 19:56 Differential diagnosis: bowel obstruction, non-specific abd pain, pancreatitis, Peptic cp Ulcer Disease, Perf. Duodenal Ulcer, Perf. Gastric Ulcer, Pyelonephritis, Ureterolithiasis, urinary tract infection, drug seeking behavior. I considered the following discharge prescriptions or medication management in the emergency department Medications were administered in the Emergency Department. See MAR. 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 Response to treatment: the patient's symptoms have mildly improved after treatment, vomiting resolved, no active vomiting observed while monitoring patient in ED, and as a result, I will discharge patient. Special discussion: I discussed with the patient their frequent requests for pain medications. Instructions have been given, that in the best interests of the patient, further pain Rx's must come from the patient's PCP or a paint supervisor. 06/09 17:49 Order name: CBC with Diff; Complete Time: 18:22 cp 06/09 18:22 Interpretation: Normal except: RBC 5.01; ZEN% 75.9. cp 06/09 17:49 Order name: CMP; Complete Time: 19:37 06/09 19:37 Interpretation: Normal except: GLUC 225; BUN 26; CRE 1.22; GFR 53; AST < 10; CA 10.3; cp GLOB 4.0; A/G 1.0. 06/09 17:49 Order name: Lipase; Complete Time: 19:37 cp 06/09 19:37 Interpretation: Reviewed. 06/09 17:49 Order name: UA Rfx Justin Cult if indicated; Complete Time: 18:22 06/09 19:38 Interpretation: Normal except: UGLUC TRACE. 06/09 17:49 Order name: UDS; Complete Time: 20:29 06/09 20:30 Interpretation: Reviewed. 06/09 18:22 Order name: XRAY Chest (1 view); Complete Time: 19:09 06/09 19:09 Interpretation: Report reviewed. 06/09 17:49 Order name: IV Saline Lock; Complete Time: 18:09 06/09 17:49 Order name: Labs collected and sent; Complete Time: 18:09 06/09 19:39 Order name: PO challenge; Complete Time: 19:52 cp Administered Medications: 18:28 Drug: Ativan IVP 1 mg IVP once Route: IVP; Site: right forearm; kj2 19:53 Follow up: Response: No adverse reaction kj2 18:28 Drug: Ondansetron IVP 2 mg IVP once; over 2 minutes Route: IVP; Site: right forearm; kj2 19:53 Follow up: Response: No adverse reaction kj2 19:09 Drug: Dicyclomine IM 20 mg IM once Route: IM; Site: right deltoid; kj2 20:31 Follow up: Response: No adverse reaction tb4 19:55 Drug: NS 0.9% IV 1000 ml IV at 1000 ml once; to be given as a bolus over 60 minutes kj2 Route: IV; Rate: 1000 ml; Site: right forearm; 20:32 Follow up: Response: No adverse reaction; IV Status: Completed infusion tb4 20:31 Drug: Meclizine PO 25 mg PO once Route: PO; tb4 Disposition: 22:21 Co-signature as Attending Physician, Hammad Murrieta MD I agree with the assessment sp4 and plan of care. I reviewed the patient's care provided by the Advanced Practice Provider and agree with the diagnosis and treatment plan. Disposition Summary: 06/09/25 19:57 Discharge Ordered Notes: Location: Home cp Problem: chronic cp Symptoms: have improved cp Condition: Stable cp Diagnosis - Nausea with vomiting, unspecified cp - Abdominal pain, unspecified - chronic cp Followup: cp - With: Bari Davalos DO - When: 2 - 3 days - Reason: Recheck today's complaints Forms: - Medication Reconciliation Form cp - Antibiotic Education cp - Prescription Opioid Use cp - Patient Portal Instructions cp - Leadership Thank You Letter cp Signatures: Dispatcher [employer] EDMS Jayesh Marcial PA-C PA-C cp Potepalov, Sergey, MD MD sp4 Malia Dwyer, RN RN cm10 Michelle Mosher, RN RN kj2 Sugar Rizzo RN RN tb4 Corrections: (The following items were deleted from the chart) 17:49 17:49 CBC+H.LAB.BRZ ordered. EDMS EDMS 17:49 17:49 COMPREHENSIVE METABOLIC PANEL+C.LAB.BRZ ordered. EDMS EDMS 17:49 17:49 LIPASE+C.LAB.BRZ ordered. EDMS EDMS 17:49 17:49 UA Rfx Justin Cult if indicated+U.LAB.BRZ ordered. EDMS EDMS
[2025-06-09] MEDS ORDERED: MECLIZINE HCL 12.5 MG TAB ONE (20:05)
[2025-06-09 20:08] LABS: METHAMPHETAM NEGATIVE (NEGATIVE); THC Cannibis NEGATIVE (NEGATIVE)
[2025-06-09 20:58] VITALS: TEMP 98.5
[2025-06-09 21:04] VITALS: BP 139/78; O2SAT 99
== END 2025-06-09 20:53 | disposition home or self-care (01) ==
LOC: ER 17:29
DX: R11.2 Nausea with vomiting, unspecified (principal); R10.13 Epigastric pain
CPT/HCPCS: 96361; 85025; 36415; 81003; 83690; 80053; 80307; 71045; 96375; 96372; 96374; 99285; J8597; J0500; J2405; J7030

== ENCOUNTER 2025-07-01 22:48 | Emergency (ER) | payer OTHER ==
[2025-07-02] MEDS ORDERED: LORazepam 2 MG/ML VIAL ONE (00:34)
[2025-07-02] MEDS ORDERED: ONDANSETRON 4 MG/2 ML VIAL ONE (00:34)
[2025-07-02] MEDS ORDERED: FENTANYL CITR 100 MCG/2 ML ONE ×2 (00:35→01:32)
[2025-07-02] MEDS ORDERED: NA CHLORIDE 0.9% 1,000 ML ONE (00:35)
[2025-07-02 00:40] LABS: Absolute Lymphocytes (CBC) 0.9 K/uL (0.7-4.9); Hematocrit 39.0 % (36.0-45.0); Hemoglobin 13.0 g/dL (12.0-15.0); MCH 30.0 pg (27.0-35.0); MCHC 33.4 g/dL (32.0-36.0); MCV 90.0 fL (80-100); MPV 8.3 fL (7.6-11.3); Nucleated RBC Absolute Count 0.0 (0-0); Nucleated Red Blood Cells % 0.0 % (0-0); RBC Red Blood Cell Count 4.33 M/uL (3.86-4.86); White Blood Count 6.00 thou/uL (4.3-10.9)
[2025-07-02 01:00] LABS: ALT/SGPT 25 U/L (13-56); Albumin 3.2 g/dL (3.4-5.0); Albumin/Globulin Ratio 0.9 (1.1-1.8); Alkaline Phosphatase 56 U/L (45-117); Anion Gap 7.9 mEq/L (5.0-15.0); BUN Blood Urea Nitrogen 11 mg/dL (7-18); Globulin 3.6 g/dL (2.3-3.5); Glucose Level 258 mg/dL (74-106); Lipase 35 U/L (13-75); Potassium 3.9 mEq/L (3.5-5.1)
[2025-07-02 01:01] LABS: AST/SGOT < 10 U/L (15-37)
--- NOTE | 2025-07-02 01:46 | ER ---
Nurse's Notes [facility] Name: Sadia Mcpherson Age: 54 yrs Sex: Female : 1970 Arrival Date: 07/01/2025 Time: 22:48 Bed 13 Private MD: Irwin Buenrostro V Diagnosis: Abdominal pain, unspecified;Nausea Presentation: 07/01 23:01 Chief complaint: Patient states: RUQ pain that radiated to R side and back. Coronavirus kb4 screen: At this time, unable to obtain information related to travel outside the [place] Ebola Screen: No symptoms or risks identified at this time. Initial Sepsis Screen: Does the patient meet any 2 criteria? No. Patient's initial sepsis screen is negative. Does the patient have a suspected source of infection? No. Patient's initial sepsis screen is negative. Risk Assessment: Do you want to hurt yourself or someone else? Patient reports no desire to harm self or others. Onset of symptoms was July 01, 2025. 23:01 Method Of Arrival: Ambulatory kb4 23:01 Acuity: JAYLEN 3 kb4 Triage Assessment: 23:06 General: Appears distressed, uncomfortable, Behavior is crying, restless. Pain: kb4 Complains of pain in back and abdomen. Neuro: Level of Consciousness is awake, alert, obeys commands, Oriented to person, place, time, situation. GI: Abdomen is flat, non-distended. 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 - Infectious Disease History:: Denies. - Social history:: Smoking status: Patient denies any tobacco usage or history of. Screenin/21 01:53 [facility] ED Fall Risk Assessment (Adult) History of falling in the last 3 months, ss12 including since admission No falls in past 3 months (0 pts) Confusion or Disorientation No (0 pts) Intoxicated or Sedated No (0 pts) Impaired Gait No (0 pts) Mobility Assist Device Used No (0 pt) Altered Elimination No (0 pt) Score/Fall Risk Level 0 - 2 = Low Risk Oriented to surroundings, Maintained a safe environment, Educated pt \T\ family on fall prevention, incl call for assistance when getting out of bed, Assessed \T\ reinforced patient's understanding of fall precautions. Abuse screen: Denies threats or abuse. Denies injuries from another. Nutritional screening: No deficits noted. Tuberculosis screening: No symptoms or risk factors identified. Assessment: 07/01 23:00 Reassessment:. General: Appears in no apparent distress. comfortable, Behavior is calm, ss12 cooperative, quiet. Pain: Complains of pain in abdominal and back Pain currently is 7 out of 10 on a pain scale. Quality of pain is described as aching, Pain began suddenly. Neuro: No deficits noted. Level of Consciousness is awake, alert, obeys commands, Oriented to person, place, time, situation. Cardiovascular: No deficits noted. Denies chest pain. Respiratory: No deficits noted. Airway is patent Respiratory effort is even, unlabored, Respiratory pattern is regular, symmetrical. GI: No deficits noted. No signs and/or symptoms were reported involving the gastrointestinal system. GI: Bowel sounds present X 4 quads. : No deficits noted. No signs and/or symptoms were reported regarding the genitourinary system. EENT: No deficits noted. No signs and/or symptoms were reported regarding the EENT system. Derm: No deficits noted. No signs and/or symptoms reported regarding the dermatologic system. Musculoskeletal: No deficits noted. No signs and/or symptoms reported regarding the musculoskeletal system. 07/02 01:05 Reassessment: pt started complaining about something not feeling right at the IV site. ss12 No obvious swelling or redness noted. After pt voiced persistent uncomfortableness. IV removed. pt educated on if any other IV medication needed she might have to be re poked. 01:54 GI: Abd is soft Abd is non tender X 4 quads. ss12 Vital Signs: 07/01 23:00 BP 177 / 101; Pulse 82; Resp 16; Pulse Ox 99% ; ss12 23:01 BP 193 / 112; Pulse 93; Resp 93; Temp 98.4; Pulse Ox 99% on R/A; Weight 63.5 kg; Height kb4 5 ft. 4 in. ; Pain 10/; 23:01 Body Mass Index 24.03 (63.50 kg, 162.56 cm) kb4 23:01 Pain Scale: Adult kb4 ED Course: 22:51 Patient arrived in ED. gm2 22:51 Irwin Buenrostro MD is Private Physician. gm2 23:03 Triage completed. kb4 23:06 Arm band placed on right wrist. kb4 23:10 Jayesh Marcial PA-C is PHCP. cp 23:10 Jadon Ford DO is Attending Physician. cp 23:11 Luis Smith RN is Primary Nurse. ss12 23:51 XRAY Chest (1 view) In Process Unspecified. EDMS 07/02 00:20 Missed attempt(s): 22 gauge Bleeding controlled, band aid applied, catheter tip intact. kmf 00:37 Accessed peripheral vein via ultrasound, utilizing dynamic ultrasound technique Blood vc1 collected. using per hospital protocol. Clean \T\ dry. Dressing intact. Good blood return. Flushes easily. 20G right upper arm. 01:08 IV discontinued, intact, bleeding controlled, No redness/swelling at site. Pressure ss12 dressing applied. 01:44 Bari Davalos DO is Referral Physician. cp 01:53 No provider procedures requiring assistance completed. ss12 01:54 Patient has correct armband on for positive identification. ss12 01:54 Provided Education on: plan of care. 12 Administered Medications: 00:55 Drug: Ativan IVP 1 mg IVP once Route: IVP; Site: right upper arm; ss12 01:20 Follow up: Response: No adverse reaction; Pain is unchanged, physician notified ss12 00:55 Drug: Ondansetron IVP 4 mg IVP once; over 2 minutes Route: IVP; Site: right upper arm; ss12 01:43 Follow up: Response: No adverse reaction; Pain is unchanged, physician notified 12 00:55 Drug: fentaNYL (PF) IVP 50 mcg IVP once Route: IVP; Site: right upper arm; 12 01:20 Follow up: Response: No adverse reaction; Pain is unchanged, physician notified 12 01:30 Drug: fentaNYL (PF) IM 50 mcg IM once Route: IM; Site: right deltoid; ss12 02:04 Follow up: Response: No adverse reaction [facility] 01:44 Not Given (Patient Refused): ns 0.9% 1000 ml IV at 1 bolus Per protocol; to be given as ss12 a bolus over 60 minutes Medication: 01:54 VIS not applicable for this client. 12 Outcome: 01:46 Discharge ordered by . maria elena 01:54 Discharged to home ambulatory, [facility] 01:54 Condition: stable 01:54 Discharge instructions given to patient, family, Instructed on discharge instructions, follow up and referral plans. Demonstrated understanding of instructions, follow-up care, 02:04 Patient left the ED. [facility] Signatures: Dispatcher [employer] EDMS Jayesh Marcial PA-C PA-C cp Calcote, Vanessa, RN RN vc1 Manisha Lynch gm2 Reema Smith km Geraldine Herron, RN RN kb4 Luis Smith, RN RN 12 Corrections: (The following items were deleted from the chart) 01:08 01:05 Reassessment: pt started complaining about something not feeling right at the IV ss12 site. No obvious swelling or redness noted. After pt persistent uncomfortableness. IV removed. pt educated on if any other IV medication needed she might have to be repoked. 12
--- NOTE | 2025-07-02 01:46 | EDPHYS ---
Physician Documentation [facility] Name: Sadia Mcpherson Age: 54 yrs Sex: Female : 1970 Arrival Date: 07/01/2025 Time: 22:48 Bed 13 Private MD: Irwin Buenrostro V ED Physician Jadon Ford HPI: 07/01 23:35 This 54 yrs old Female presents to ER via Ambulatory with complaints of Abdominal Pain, cp Back Pain. 23:35 The patient presents with abdominal pain. Onset: The symptoms/episode began/occurred cp today. The symptoms radiate to back. 23:35 Associated signs and symptoms: Pertinent positives: anorexia, nausea, Pertinent cp negatives: vomiting blood. 23:35 The symptoms are described as constant. Severity of pain: in the emergency department cp the pain is unchanged despite home interventions. Patient with hx chronic upper abdominal pain. Reports prescribed pain medications not controlling pain and that she had upper endoscopy performed yesterday. 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 - Infectious Disease History:: Denies. - Social history:: Smoking status: Patient denies any tobacco usage or history of. ROS: 23:40 Constitutional: Negative for body aches, chills, fever, poor PO intake, cp 23:40 Eyes: Negative for injury, pain, redness, and discharge, cp 23:40 ENT: Negative for drainage from ear(s), ear pain, sore throat, difficulty swallowing, difficulty handling secretions, 23:40 Cardiovascular: Negative for chest pain, palpitations, 23:40 Respiratory: Negative for cough, shortness of breath, wheezing, 23:40 Abdomen/GI: Positive for abdominal pain, nausea, Negative for diarrhea, constipation, active vomiting, 23:40 Back: Positive for radiated pain, 23:40 Neuro: Negative for altered mental status, dizziness, headache, weakness, 23:40 All other systems are negative, Exam: 23:45 Constitutional: The patient appears in no acute distress, alert, awake, cp non-diaphoretic, non-toxic, well developed, well nourished, uncomfortable, 23:45 Head/Face: Normocephalic, atraumatic. cp 23:45 Eyes: Periorbital structures: appear normal, Conjunctiva: normal, no exudate, no injection, Sclera: no appreciated abnormality, Lids and lashes: appear normal, bilaterally, 23:45 ENT: External ear(s): are unremarkable, Nose: is normal, Mouth: Lips: moist, Oral mucosa: moist, Posterior pharynx: Airway: no evidence of obstruction, patent, 23:45 Neck: ROM/movement: is normal, is supple, without pain, no range of motions limitations, 23:45 Chest/axilla: Inspection: normal, 23:45 Cardiovascular: Rate: normal, Rhythm: regular, Edema: is not appreciated, JVD: is not appreciated, 23:45 Respiratory: the patient does not display signs of respiratory distress, Respirations: normal, no use of accessory muscles, no retractions, labored breathing, is not present, Breath sounds: are clear throughout, no decreased breath sounds, no stridor, no wheezing, 23:45 Abdomen/GI: Inspection: abdomen appears normal, Bowel sounds: active, all quadrants, Palpation: soft, in all quadrants, severe abdominal tenderness, in the epigastric area, right upper quadrant and left upper quadrant, 23:45 Back: CVA tenderness, is absent, 23:45 Neuro: Orientation: to person, place \T\ time. Mentation: is normal, Motor: moves all fours, strength is normal, Vital Signs: 23:00 BP 177 / 101; Pulse 82; Resp 16; Pulse Ox 99% ; ss12 23:01 BP 193 / 112; Pulse 93; Resp 93; Temp 98.4; Pulse Ox 99% on R/A; Weight 63.5 kg; Height kb4 5 ft. 4 in. ; Pain 10; 23:01 Body Mass Index 24.03 (63.50 kg, 162.56 cm) kb4 23:01 Pain Scale: Adult kb4 MDM: 23:10 Medical Screening Exam initiated 07/02 00:00 Differential diagnosis: bowel obstruction, non-specific abd pain, pancreatitis, Peptic cp Ulcer Disease, Perf. Duodenal Ulcer, Perf. Gastric Ulcer, Pyelonephritis, Ureterolithiasis, urinary tract infection, choledocholithiasis. 01:15 ED course: patient refuses CT abdomen/pelvis at this time. 01:45 Data reviewed: vital signs, nurses notes, lab test result(s), radiologic studies, plain cp films, and as a result, I will discharge patient. 01:45 I considered the following discharge prescriptions or medication management in the emergency department Medications were administered in the Emergency Department. See MAR. Independent interpretation of the following test(s) in the Emergency Department X-Ray: My interpretation is chest xray negative for infiltrates. Care significantly affected by the following chronic conditions: Diabetes, Hypertension. 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 Response to treatment: the patient's symptoms have mildly improved after treatment, and as a result, I will discharge patient. Special discussion: I discussed with the patient their frequent requests for pain medications. Instructions have been given, that in the best interests of the patient, further pain Rx's must come from the patient's PCP or a painting department supervisor. 07/01 23:30 Order name: CBC with Diff; Complete Time: 01:08 07/02 01:08 Interpretation: Normal except: RDW 16.0; ZEN% 74.9. 07/01 23:30 Order name: CMP; Complete Time: 01:08 07/02 01:08 Interpretation: Normal except: CL 109; GLUC 258; GFR 85; AST < 10; ALB 3.2; GLOB 3.6; cp A/G 0.9. 07/01 23:30 Order name: Lipase; Complete Time: 01:08 cp 07/01 23:30 Order name: XRAY Chest (1 view) cp 07/01 23:30 Order name: IV Saline Lock; Complete Time: 02:04 cp 07/01 23:30 Order name: Labs collected and sent; Complete Time: 02:04 cp Administered Medications: 00:55 Drug: Ativan IVP 1 mg IVP once Route: IVP; Site: right upper arm; ss12 01:20 Follow up: Response: No adverse reaction; Pain is unchanged, physician notified ss12 00:55 Drug: Ondansetron IVP 4 mg IVP once; over 2 minutes Route: IVP; Site: right upper arm; ss12 01:43 Follow up: Response: No adverse reaction; Pain is unchanged, physician notified ss12 00:55 Drug: fentaNYL (PF) IVP 50 mcg IVP once Route: IVP; Site: right upper arm; ss12 01:20 Follow up: Response: No adverse reaction; Pain is unchanged, physician notified ss12 01:30 Drug: fentaNYL (PF) IM 50 mcg IM once Route: IM; Site: right deltoid; ss12 02:04 Follow up: Response: No adverse reaction ss12 01:44 Not Given (Patient Refused): ns 0.9% 1000 ml IV at 1 bolus Per protocol; to be given as ss12 a bolus over 60 minutes Disposition: 07:50 Co-signature as Attending Physician, Jadon Ford DO I reviewed the patient's care tt7 provided by the Advanced Practice Provider and agree with the diagnosis and treatment plan. Disposition Summary: 07/02/25 01:46 Discharge Ordered Notes: Location: Home cp Problem: chronic cp Symptoms: have improved cp Condition: Stable cp Diagnosis - Abdominal pain, unspecified cp - Nausea cp Followup: cp - With: Bari Davalos DO - When: 2 - 3 days - Reason: Recheck today's complaints Discharge Instructions: - Discharge Summary Sheet cp - Abdominal Pain, Adult cp - Nausea, Adult cp Forms: - Medication Reconciliation Form cp - Antibiotic Education cp - Prescription Opioid Use cp - Patient Portal Instructions cp - Leadership Thank You Letter cp Signatures: Dispatcher [facility] Jayesh Mcpherson PA-C PA-C cp Bowen, Kayla, RN RN kb4 Luis Smith RN RN ss12 Jadon Ford, DO tt7 Corrections: (The following items were deleted from the chart) 01:13 00:55 Abdomen Pelvis Wo Con+CT.RAD.BRZ ordered. EDMS EDMS
[2025-07-02 02:19] VITALS: O2SAT 99
[2025-07-02 02:21] VITALS: BP 193/112; TEMP 98.4
--- NOTE | 2025-07-02 05:48 | RAD REPORT ---
EXAM: XR Chest, 1 View CLINICAL HISTORY: The patient is 54 years old and is Female; abdominal pain TECHNIQUE: Frontal view of the chest. COMPARISON: XR Chest dated June 18 2025 FINDINGS: LUNGS: Unremarkable. No consolidation. PLEURAL SPACE: Unremarkable. No pneumothorax. HEART: Unremarkable. No cardiomegaly. MEDIASTINUM: Unremarkable. Normal mediastinal contour. BONES/JOINTS: Unremarkable. No acute fracture. UPPER ABDOMEN: Unremarkable as visualized. IMPRESSION: No acute cardiopulmonary process. Electronically signed by: Jennifer Teresa MD 07/02/2025 12:09 AM CDT RP Due to temporary technical issues with the PACS/Stratio reporting system, reports are being rafy d by the in-house radiologist without review as a courtesy to ensure prompt reporting. The interpreting radiologist is fully responsible for the content of the report. Transcribed Date/Time: 07/02/2025 5:47 AM
== END 2025-07-02 02:04 | disposition home or self-care (01) ==
LOC: ER 22:48
DX: R10.9 Unspecified abdominal pain (principal); M54.9 Dorsalgia, unspecified; R11.0 Nausea; E11.9 Type 2 diabetes mellitus without complications; E03.9 Hypothyroidism, unspecified; I10 Essential (primary) hypertension; F41.9 Anxiety disorder, unspecified; K85.90 Acute pancreatitis without necrosis or infection, unspecified; Z88.8 Allergy status to other drugs, medicaments and biological substances; Z88.2 Allergy status to sulfonamides
CPT/HCPCS: 85025; 36415; 83690; 80053; 71045; 96375; 96372; 96374; 99284; J3010 ×2; J2405; J7030

== ENCOUNTER 2025-07-05 20:28 | Emergency (ER) | payer OTHER ==
--- NOTE | 2025-07-05 21:27 | ER ---
Nurse's Notes [facility] Name: Sadia Mcpherson Age: 54 yrs Sex: Female : 1970 Arrival Date: 07/05/2025 Time: 20:28 Bed IW1 Private MD: Diagnosis: Chronic abdominal pain Presentation: 07/05 20:49 Chief complaint: Patient states: LT UPPER STOMACH PAIN, MIDDLE BACK PAIN, N/V THAT dd2 BEGAN 3 PM. Coronavirus screen: At this time, the client does not indicate any symptoms associated with coronavirus-19. Ebola Screen: No symptoms or risks identified at this time. Risk Assessment: Do you want to hurt yourself or someone else? Patient reports no desire to harm self or others. Onset of symptoms was July 05, 2025 at 15:00. 20:49 Method Of Arrival: Wheelchair dd2 20:49 Acuity: JAYLEN 3 dd2 20:52 Initial Sepsis Screen: Does the patient meet any 2 criteria? No. Patient's initial dd2 sepsis screen is negative. Does the patient have a suspected source of infection? No. Patient's initial sepsis screen is negative. Triage Assessment: 20:50 General: Appears in no apparent distress. uncomfortable, Behavior is cooperative, dd2 appropriate for age, crying. Pain: Complains of pain in back and abdomen Pain currently is 10 out of 10 on a pain scale. GI: Reports upper abdominal pain, nausea, vomiting. Musculoskeletal: Reports pain in mid back area. 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 Vital Signs: 20:52 BP 137 / 106; Pulse 93; Resp 18; Temp 98.3; Pulse Ox 100% ; Pain 10/10; dd2 20:52 Pain Scale: Adult dd2 ED Course: 20:29 Patient arrived in ED. mr 20:31 AggieJayesh PA-C [facility]. cp 20:31 Rusty Rm MD is Attending Physician. cp 20:32 Rusty Rm MD is Attending Physician. sp3 20:49 Triage completed. dd2 20:50 Arm band placed on left wrist. dd2 Administered Medications: No medications were administered Outcome: 21:32 Discharge ordered by . sp3 21:33 Patient left the ED. vc1 Signatures: Gray Fatemeh, Reg Reg mr AggieJayesh PA-C PA-C cp Patel, Setul, MD MD sp3 Maricruz Chavez RN RN vc1 MAGNUS FREITAS RN RN dd2 Corrections: (The following items were deleted from the chart) 21:30 21:25 Reassessment: NOTIFIED BY REGISTRATION THAT PT LEFT WITH SPOUSE. dd2 vc1 : 21:26 Eloped from waiting room, after seeing physician Time discovered patient gone: vc1 July 05, 2025 at 21:26 dd2 : 21:26 Condition: stable dd2 vc1 : 21:26 Discharge instructions given to PT ELOPED dd2 vc1 : 21:27 Patient left the ED. dd2 vc1
--- NOTE | 2025-07-05 21:27 | EDPHYS ---
Physician Documentation [facility] Name: Sadia Mcpherson Age: 54 yrs Sex: Female : 1970 Arrival Date: 07/05/2025 Time: 20:28 Bed IW1 Private MD: ED Physician Rusty Rm HPI: 07/05 21:15 This 54 yrs old Female presents to ER via Wheelchair with complaints of Abdominal Pain, sp3 Back Pain. 21:15 54-year-old female with chronic abdominal pain secondary to celiac syndrome where she sp3 had a mass which was surgically removed and she gets quarterly celiac blocks for her pain. Last block was in January and the next one is due in June. Prior CT demonstrated possible cancer though pathology demonstrated no cancer. Patient presents with recurrent and similar abdominal pain to her past mid abdomen coming in waves. Patient is also having emesis. No fever, coffee grounds, blood in her emesis, melena, diarrhea, or any other signs or symptoms on ROS at this time. She is seen by GI and surgery at [facility] 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 ROS: 21:17 Constitutional: Negative for fever, chills, and weight loss, Eyes: Negative for injury, sp3 pain, redness, and discharge, Neck: Negative for injury, pain, and swelling, Cardiovascular: Negative for chest pain, palpitations, and edema, Respiratory: Negative for shortness of breath, cough, wheezing, and pleuritic chest pain, Back: Negative for injury and pain, MS/Extremity: Negative for injury and deformity, Skin: Negative for injury, rash, and discoloration, Neuro: Negative for headache, weakness, numbness, tingling, and seizure, Psych: Negative for depression, anxiety, suicide ideation, homicidal ideation, and hallucinations, Allergy/Immunology: Negative for hives, rash, and allergies, Endocrine: Negative for neck swelling, polydipsia, polyuria, polyphagia, and marked weight changes, Hematologic/Lymphatic: Negative for swollen nodes, abnormal bleeding, and unusual bruising, 21:17 All other systems are negative, Exam: 21:18 Constitutional: This is a well developed, well nourished patient who is awake, alert, sp3 and in no acute distress. Head/Face: Normocephalic, atraumatic. Eyes: Pupils equal round and reactive to light, extra-ocular motions intact. Lids and lashes normal. Conjunctiva and sclera are non-icteric and not injected. Cornea within normal limits. Periorbital areas with no swelling, redness, or edema. Neck: Trachea midline, no thyromegaly or masses palpated, and no cervical lymphadenopathy. Supple, full range of motion without nuchal rigidity, or vertebral point tenderness. No Meningismus. Chest/axilla: Normal chest wall appearance and motion. Nontender with no deformity. No lesions are appreciated. Cardiovascular: Regular rate and rhythm with a normal S1 and S2. No gallops, murmurs, or rubs. Normal PMI, no JVD. No pulse deficits. Respiratory: Lungs have equal breath sounds bilaterally, clear to auscultation and percussion. No rales, rhonchi or wheezes noted. No increased work of breathing, no retractions or nasal flaring. Back: No spinal tenderness. No costovertebral tenderness. Full range of motion. Skin: Warm, dry with normal turgor. Normal color with no rashes, no lesions, and no evidence of cellulitis. MS/ Extremity: Pulses equal, no cyanosis. Neurovascular intact. Full, normal range of motion. Neuro: Awake and alert, GCS 15, oriented to person, place, time, and situation. Cranial nerves II-XII grossly intact. Motor strength 5/5 in all extremities. Sensory grossly intact. Cerebellar exam normal. Normal gait. Psych: Awake, alert, with orientation to person, place and time. Behavior, mood, and affect are within normal limits. 21:18 Abdomen/GI: Soft abdomen with no peritoneal signs, rebound or guarding., Vital Signs: 20:52 BP 137 / 106; Pulse 93; Resp 18; Temp 98.3; Pulse Ox 100% ; Pain 10/10; dd2 20:52 Pain Scale: Adult dd2 MDM: 20:43 Medical Screening Exam initiated sp3 21:19 ED course: 54-year-old female with chronic abdominal pain and PMH above now with sp3 recurrent abdominal pain. I have informed patient that recurrent narcotic use will only exacerbate the problem. I am happy to evaluate her abdominal pain with full workup but mentioned that unless there is some abnormality, narcotic usage is after contraindicated in this case. Happy to give her Zofran, IV fluids and other medications including Bentyl and Toradol. Patient is evaluating whether she wants to stay or leave if she states that only the narcotics work for her. Her chronic pain doctor is at [facility] in the [facility] and she states that she may go there. We await her decision.. Administered Medications: No medications were administered Disposition Summary: 07/05/25 21:32 Discharge Ordered Notes: Location: Home sp3 Condition: Stable sp3 Diagnosis - Chronic abdominal pain sp3 Followup: sp3 - With: Private Physician - When: Upon discharge from the Emergency Department - Reason: Continuance of care Discharge Instructions: - Discharge Summary Sheet sp3 - Chronic Pain, Adult sp3 Forms: - Medication Reconciliation Form sp3 - Antibiotic Education sp3 - Prescription Opioid Use sp3 - Patient Portal Instructions sp3 - Leadership Thank You Letter sp3 Signatures: Rusty Rm MD MD sp3 MAGNUS FREITAS RN RN dd2 Corrections: (The following items were deleted from the chart) 21:31 21:27 after being seen by provider dd2 sp3 21:32 21:27 unknown dd2 sp3
[2025-07-05 22:15] VITALS: BP 137/106; TEMP 98.3; O2SAT 100
== END 2025-07-05 21:33 | disposition home or self-care (01) ==
LOC: ER 20:28
DX: R10.9 Unspecified abdominal pain (principal)
CPT/HCPCS: 99281

== ENCOUNTER 2025-07-17 11:33 | Emergency (ER) | payer OTHER ==
[2025-07-17] MEDS ORDERED: NA CHLORIDE 0.9% 1,000 ML ONE (12:38)
[2025-07-17] MEDS ORDERED: ONDANSETRON 4 MG/2 ML VIAL ONE (12:38)
[2025-07-17 13:06] LABS: Absolute Lymphocytes (CBC) 1.1 K/uL (0.7-4.9); Hematocrit 42.5 % (36.0-45.0); Hemoglobin 14.1 g/dL (12.0-15.0); MCH 30.0 pg (27.0-35.0); MCHC 33.1 g/dL (32.0-36.0); MCV 90.7 fL (80-100); MPV 8.3 fL (7.6-11.3); Nucleated RBC Absolute Count 0.0 (0-0); Nucleated Red Blood Cells % 0.0 % (0-0); RBC Red Blood Cell Count 4.69 M/uL (3.86-4.86); White Blood Count 6.40 thou/uL (4.3-10.9)
[2025-07-17 13:25] LABS: ALT/SGPT 35.0 U/L (13-56); AST/SGOT 17.0 U/L (15-37); Albumin 3.1 g/dL (3.4-5.0); Albumin/Globulin Ratio 0.8 (1.1-1.8); Alkaline Phosphatase 82.0 U/L (45-117); Anion Gap 9.8 mEq/L (5.0-15.0); BUN Blood Urea Nitrogen 7.0 mg/dL (7-18); Globulin 3.8 g/dL (2.3-3.5); Glucose Level 175.0 mg/dL (74-106); Lipase 19.0 U/L (13-75); Potassium 3.8 mEq/L (3.5-5.1)
[2025-07-17] MEDS ORDERED: ACETAMINOPHEN 325 MG TABLET ONE (13:43)
--- NOTE | 2025-07-17 14:23 | RAD REPORT ---
EXAMINATION: Abdomen Pelvis W Contrast CLINICAL INDICATION: Female, 54 years old.ABD PAIN TECHNIQUE: CT abdomen and pelvis was performed, after the administration of IV contrast, as per [facility] protocol. Axial, sagittal and coronal reconstructions were obtained. One or more of the following dose reduction techniques were used: Automated exposure control, adjustment of the mA and/o r kV according to patient size, and/or iterative reconstruction. Unless otherwise specified, incidental findings do not require dedicated imaging follow-up. [id number]. COMPARISON: 07/01/2025, 06/22/2023 FINDINGS: LOWER CHEST: No acute process identified. No significant pericardial effusion. Bilateral breast prost heses UPPER GI: No significant abnormality. LIVER: Hepatic steatosis, but otherwise unremarkable. GALLBLADDER/BILE DUCTS: No biliary ductal dilatation.? PANCREAS: No mass, ductal dilation, or juan jose-pancreatic fluid. SPLEEN: Unremarkable. ADRENALS: No adrenal masses. KIDNEYS AND URETERS: No hydronephrosis. Similar left nephrolithiasis. 14 mm left renal lesion which i s probably a proteinaceous cyst is unchanged. No ureteral calculi. ABDOMINAL AORTA AND OTHER VESSELS: Mild atherosclerotic changes. PERITONEUM: No abnormal free fluid. No free air. LYMPH NODES: No pathologic lymphadenopathy. ABDOMINAL WALL: 11 mm nodule in the right lower abdominal wall is unchanged since at least 06/22/2023. SMALL BOWEL/COLON: Small bowel has normal course and caliber. No colonic wall thickening or pericolon ic inflammatory changes. Normal appendix. Linear foreign body again noted in the cecum. URINARY BLADDER: Underdistended but grossly unremarkable. The bladder wall no longer appears thickene d. REPRODUCTIVE ORGANS: No pathologic process. MUSCULOSKELETAL: Multilevel degenerative changes in the spine. No acute fracture. ADDITIONAL FINDINGS: None. IMPRESSION: No acute findings within the abdomen or pelvis.
--- NOTE | 2025-07-17 14:37 | ER ---
Nurse's Notes [facility] Name: Sadia Mcpherson Age: 54 yrs Sex: Female : 1970 Arrival Date: 07/17/2025 Time: 11:33 Bed 13 Private MD: Diagnosis: Other chronic pain Presentation: 07/17 11:42 Chief complaint: Patient states: yesterday her pain worsened. Pain to epigastric me1 abdomen that radiates around to right mid back, 07/21. Medications from pain mgmt are not effective. This morning started having n/v/d and burning with urination as well as episodes of incontinence of bladder and bowel. Has a nodule to RUQ. Coronavirus screen: Vaccine status: Patient reports being unvaccinated. Ebola Screen: No symptoms or risks identified at this time. Initial Sepsis Screen: Does the patient meet any 2 criteria? No. Patient's initial sepsis screen is negative. Does the patient have a suspected source of infection? No. Patient's initial sepsis screen is negative. Risk Assessment: Do you want to hurt yourself or someone else? Patient reports no desire to harm self or others. Onset of symptoms was July 16, 2025. 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 - Infectious Disease History:: Denies. - Social history:: Smoking status: Patient denies any tobacco usage or history of. Screenin:05 [facility] ED Fall Risk Assessment (Adult) History of falling in the last 3 months, kj2 including since admission No falls in past 3 months (0 pts) Confusion or Disorientation No (0 pts) Intoxicated or Sedated No (0 pts) Impaired Gait No (0 pts) Mobility Assist Device Used No (0 pt) Altered Elimination No (0 pt) Score/Fall Risk Level 0 - 2 = Low Risk Maintained a safe environment, Hourly rounding (assess needs \T\ fall precautionary measures) done. Abuse screen: Denies threats or abuse. Denies injuries from another. Nutritional screening: No deficits noted. Tuberculosis screening: No symptoms or risk factors identified. Assessment: 12:05 General: Appears uncomfortable, Behavior is crying. Pain: Complains of pain in abdomen kj2 Pain currently is 6 out of 10 on a pain scale. Neuro: Level of Consciousness is awake, alert, obeys commands, Oriented to person, place, time, situation. Cardiovascular: Patient's skin is warm and dry. Respiratory: Airway is patent Respiratory effort is unlabored. GI: Bowel sounds present X 4 quads. GI: Abdomen is non-distended. : No signs and/or symptoms were reported regarding the genitourinary system. 13:17 Reassessment: patient request to be disconnected from fluids and monitor. kj2 13:35 Reassessment: SPOKE WITH PT AFTER SHE REQUEST TORADOL. INFORMED PT SHE HAS IT ON HER jj7 ALLERGY LIST AND DR WILL NOT ORDER IT FOR SHE. SHE STATES IT INFLAMES HER INTESTINES. SHE ALSO STATES SHE IS NOT ADDICTED TO NARCOTICS BUT SHE GET DOES GET SEVERAL DIFFERENT PRESCRIPTIONS FOR NARCOTICS FROM PAIN MANAGEMENT SUCH MORPHINE PATCHES. SHE STATES SHE WILL USE THEM FOR A FEW DAYS AND THEY DON'T WORK AND SHE HAS ALL OF THEM AT HOME STILL. SHE HAS GOTTEN FENTANYL, MORPHINE AND DILAUDID IN THE HOSPITAL, BUT SHE WOULD LIKE TORADOL. AGAIN STILL NURSE EXPLAINED SHE CAN NOT GET TORADOL SHE STATES IT WAS AN ALLERGY FOR HER. WILL DISCUSS WITH MD ABOUT ANOTHER MEDICATION FOR PAIN. 14:07 Reassessment: patient continues to decline monitor/observation of vital signs. kj2 14:49 Reassessment: Patient appears in no apparent distress at this time. Patient and/or kj2 family updated on plan of care and expected duration. Pain level reassessed. Patient is alert, oriented x 3, equal unlabored respirations, skin warm/dry/pink. Vital Signs: 11:42 BP 164 / 98; Pulse 84; Resp 18; Temp 98.6; Pulse Ox 98% ; Weight 63.05 kg; Height 5 ft. me1 4 in. ; Pain 10/10; 12:05 BP 147 / 98; Pulse 92; Resp 20; Pulse Ox 100% ; kj2 13:00 BP 146 / 93; Pulse 74; Resp 20; Pulse Ox 96% on R/A; kj2 14:49 BP 148 / 88; Pulse 72; Resp 18; Temp 98; Pulse Ox 100% on R/A; kj2 11:42 Body Mass Index 23.86 (63.05 kg, 162.56 cm) me1 11:42 Pain Scale: Adult ca1 ED Course: 11:35 Patient arrived in ED. mr 11:35 Rusty Rm MD is Attending Physician. sp3 11:37 Ranjit Castillo, RN is Primary Nurse. bp 11:44 Triage completed. me1 11:44 Arm band placed on Patient placed in an exam room. me1 12:05 Patient has correct armband on for positive identification. Bed in low position. Call kj2 light in reach. Provided Education on: call light. 12:43 Initial lab(s) drawn, by ca, sent to lab. Inserted saline lock: 22 gauge in right me1 forearm, using aseptic technique. Blood collected. Flushed with 10 mL NS. 13:50 CT Abd/Pelvis - IV Contrast Only In Process Unspecified. EDMS 14:08 No provider procedures requiring assistance completed. kj2 14:51 IV discontinued, intact, bleeding controlled, No redness/swelling at site. Pressure kj2 dressing applied. Administered Medications: 13:59 Discontinued: ns 0.9% 1000 ml IV at 1 bolus Per protocol; to be given as a bolus over kj2 60 minutes 12:51 Drug: Ondansetron IVP 4 mg IVP once; over 2 minutes Route: IVP; Site: right forearm; kj2 14:51 Follow up: Response: No adverse reaction kj2 12:51 Drug: NS 0.9% IV 1000 ml IV at 1 bolus Per protocol; to be given as a bolus over 60 kj2 minutes Route: IV; Rate: 1 bolus; Site: right forearm; 13:15 Follow up: IV Status: Completed infusion; IV Intake: 100ml kj2 13:54 Drug: Acetaminophen PO 650 mg PO once Route: PO; kj2 14:51 Follow up: Response: No adverse reaction kj2 Medication: 14:07 VIS not applicable for this client. kj2 Intake: 13:15 IV: 100ml; Total: 100ml. kj2 Outcome: 14:37 Discharge ordered by . sp3 14:50 Discharged to home ambulatory, kj2 14:50 Condition: stable 14:50 Discharge instructions given to patient, Instructed on discharge instructions, follow up and referral plans. Demonstrated understanding of instructions, follow-up care, 14:52 Patient left the ED. kj2 Signatures: Dispatcher [employer] EDFatemeh Whittaker, Ranjit Gonsales, RN RN Rusty Neal MD MD sp3 Thiago Cowart, RN RN jj7 Madisyn Whitman RN RN me1 Michelle Mosher RN RN kj2 Corrections: (The following items were deleted from the chart) 14:00 13:58 IV Status: Completed infusion; IV Intake: 100ml kj2 kj2
--- NOTE | 2025-07-17 14:37 | EDPHYS ---
Physician Documentation [facility] Name: Sadia Mcpherson Age: 54 yrs Sex: Female : 1970 Arrival Date: 07/17/2025 Time: 11:33 Bed 13 Private MD: ED Physician Rusty Rm HPI: 07/17 12:35 This 54 yrs old Female presents to ER via Wheelchair with complaints of Abdominal Pain, sp3 Back Pain, Vomiting. 12:35 54-year-old female with chronic abdominal pain secondary to celiac syndrome where she sp3 had a mass which was surgically removed and she gets quarterly celiac blocks for her pain. Last block was in January and the next one is due in June. Prior CT demonstrated possible cancer though pathology demonstrated no cancer. Patient presents with recurrent and similar abdominal pain to her past mid abdomen coming in waves. Patient is also having emesis. No fever, coffee grounds, blood in her emesis, melena, diarrhea, or any other signs or symptoms on ROS at this time. She is seen by GI and surgery at [facility]. Patient is had multiple visits for similar symptoms.. 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 - Infectious Disease History:: Denies. - Social history:: Smoking status: Patient denies any tobacco usage or history of. ROS: 12:35 Constitutional: Negative for fever, chills, and weight loss, Eyes: Negative for injury, sp3 pain, redness, and discharge, ENT: Negative for injury, pain, and discharge, Neck: Negative for injury, pain, and swelling, Cardiovascular: Negative for chest pain, palpitations, and edema, Respiratory: Negative for shortness of breath, cough, wheezing, and pleuritic chest pain, Back: Negative for injury and pain, MS/Extremity: Negative for injury and deformity, Skin: Negative for injury, rash, and discoloration, Neuro: Negative for headache, weakness, numbness, tingling, and seizure, Psych: Negative for depression, anxiety, suicide ideation, homicidal ideation, and hallucinations, Allergy/Immunology: Negative for hives, rash, and allergies, Endocrine: Negative for neck swelling, polydipsia, polyuria, polyphagia, and marked weight changes, Hematologic/Lymphatic: Negative for swollen nodes, abnormal bleeding, and unusual bruising, 12:35 All other systems are negative, Exam: 12:35 Constitutional: This is a well developed, well nourished patient who is awake, alert, sp3 and in no acute distress. Head/Face: Normocephalic, atraumatic. Eyes: Pupils equal round and reactive to light, extra-ocular motions intact. Lids and lashes normal. Conjunctiva and sclera are non-icteric and not injected. Cornea within normal limits. Periorbital areas with no swelling, redness, or edema. ENT: Nares patent. No nasal discharge, no septal abnormalities noted. External auditory canals are clear. Oropharynx with no redness, swelling, or masses, exudates, or evidence of obstruction, uvula midline. Mucous membranes moist. Neck: Trachea midline, no thyromegaly or masses palpated, and no cervical lymphadenopathy. Supple, full range of motion without nuchal rigidity, or vertebral point tenderness. No Meningismus. Chest/axilla: Normal chest wall appearance and motion. Nontender with no deformity. No lesions are appreciated. Cardiovascular: Regular rate and rhythm with a normal S1 and S2. No gallops, murmurs, or rubs. Normal PMI, no JVD. No pulse deficits. Respiratory: Lungs have equal breath sounds bilaterally, clear to auscultation and percussion. No rales, rhonchi or wheezes noted. No increased work of breathing, no retractions or nasal flaring. Back: No spinal tenderness. No costovertebral tenderness. Full range of motion. Skin: Warm, dry with normal turgor. Normal color with no rashes, no lesions, and no evidence of cellulitis. MS/ Extremity: Pulses equal, no cyanosis. Neurovascular intact. Full, normal range of motion. Neuro: Awake and alert, GCS 15, oriented to person, place, time, and situation. Cranial nerves II-XII grossly intact. Motor strength 5/5 in all extremities. Sensory grossly intact. Cerebellar exam normal. Normal gait. Psych: Awake, alert, with orientation to person, place and time. Behavior, mood, and affect are within normal limits. 12:35 Abdomen/GI: Diffuse pain to palpation without peritoneal signs, rebound or guarding. Pain is mild in nature. Testicular nodule palpated in the right abdomen at the umbilical horizontal line. , Vital Signs: 11:42 BP 164 / 98; Pulse 84; Resp 18; Temp 98.6; Pulse Ox 98% ; Weight 63.05 kg; Height 5 ft. me1 4 in. ; Pain 10/10; 12:05 BP 147 / 98; Pulse 92; Resp 20; Pulse Ox 100% ; kj2 13:00 BP 146 / 93; Pulse 74; Resp 20; Pulse Ox 96% on R/A; kj2 14:49 BP 148 / 88; Pulse 72; Resp 18; Temp 98; Pulse Ox 100% on R/A; kj2 11:42 Body Mass Index 23.86 (63.05 kg, 162.56 cm) me1 11:42 Pain Scale: Adult me1 MDM: 11:40 Medical Screening Exam initiated sp3 12:36 Data reviewed: vital signs, nurses notes, old medical records, lab test result(s), sp3 radiologic studies. ED course: 54-year-old female with multiple prior visits and PMH above now with recurrent acute on chronic abdominal pain. Broad differential exist including chronic pain, other new intra-abdominal process, foodborne illness, viral illness, among others. Clinically patient does not have a surgical abdomen. Will obtain CT scan of the abdomen pelvis with IV contrast, general labs and UA. Pain medication to be given if some pathology indicates. Otherwise ondansetron and IV fluids for symptomatic control. Disposition pending workup and patient course.. 14:35 ED course: Full workup negative including CT. Will safely discharge patient home at sp3 this time. Patient is repeatedly asking for pain medication specifically narcotics. She is allergic to all nonnarcotic medications. She states that she has prescriptions at home of narcotics but she is not taking them. Patient has no indication for narcotic medication usage at this time. We will safely discharge her home and she can follow-up with her pain management doctor on any escalation of her current medications, for which she is not taking allegedly.. 07/17 12:04 Order name: CBC with Diff; Complete Time: 14:35 sp3 07/17 12:04 Order name: CMP; Complete Time: 14:35 sp3 07/17 12:04 Order name: Lipase; Complete Time: 14:35 sp3 07/17 12:04 Order name: CT Abd/Pelvis - IV Contrast Only; Complete Time: 14:35 sp3 07/17 12:04 Order name: IV Saline Lock; Complete Time: 12:45 sp3 07/17 12:04 Order name: Labs collected and sent; Complete Time: 12:45 sp3 Administered Medications: 13:59 Discontinued: ns 0.9% 1000 ml IV at 1 bolus Per protocol; to be given as a bolus over kj2 60 minutes 12:51 Drug: Ondansetron IVP 4 mg IVP once; over 2 minutes Route: IVP; Site: right forearm; kj2 14:51 Follow up: Response: No adverse reaction kj2 12:51 Drug: NS 0.9% IV 1000 ml IV at 1 bolus Per protocol; to be given as a bolus over 60 kj2 minutes Route: IV; Rate: 1 bolus; Site: right forearm; 13:15 Follow up: IV Status: Completed infusion; IV Intake: 100ml kj2 13:54 Drug: Acetaminophen PO 650 mg PO once Route: PO; kj2 14:51 Follow up: Response: No adverse reaction kj2 Disposition Summary: 07/17/25 14:37 Discharge Ordered Notes: Location: Home sp3 Condition: Stable sp3 Diagnosis - Other chronic pain sp3 Followup: sp3 - With: Private Physician - When: Upon discharge from the Emergency Department - Reason: Continuance of care Discharge Instructions: - Discharge Summary Sheet sp3 - Chronic Pain, Adult sp3 Forms: - Medication Reconciliation Form sp3 - Antibiotic Education sp3 - Prescription Opioid Use sp3 - Patient Portal Instructions sp3 - Leadership Thank You Letter sp3 Signatures: Dispatcher [employer] EDMS Rusty Rm MD MD sp3 Madisyn Whitman RN RN me1 Michelle Mosher, SILVIA RN kj2 Corrections: (The following items were deleted from the chart) 12:05 12:05 Abdomen Pelvis W Con+CT.RAD.BRZ ordered. EDMS EDMS
[2025-07-17 15:19] VITALS: BP 148/88; TEMP 98; O2SAT 100
== END 2025-07-17 14:52 | disposition home or self-care (01) ==
LOC: ER 11:33
DX: G89.29 Other chronic pain (principal); M54.9 Dorsalgia, unspecified; R11.10 Vomiting, unspecified; Z88.8 Allergy status to other drugs, medicaments and biological substances; Z88.2 Allergy status to sulfonamides; F41.9 Anxiety disorder, unspecified; E11.9 Type 2 diabetes mellitus without complications; E03.9 Hypothyroidism, unspecified; I10 Essential (primary) hypertension; E27.40 Unspecified adrenocortical insufficiency; K85.90 Acute pancreatitis without necrosis or infection, unspecified
CPT/HCPCS: 85025; 36415; 83690; 80053; 74177; 96374; 99284; Q9967; J2405; J7030